=== PATIENT | male | born 1940 | race Caucasian/White ===

== ENCOUNTER 2022-11-20 11:21 | Outpatient (OUT) | payer MEDICARE, MEDICAID, SELFPAY ==
[2022-11-20 12:10] LABS: Basophils Absolute Auto 0.1 10^3/uL (0.0-0.1); Basophils Percent Auto 1.2 % (0.2-2.0); Eosinophils Absolute Auto 0.2 10^3/uL (0.0-0.7); Eosinophils Percent Auto 2.7 % (0.9-7.0); Hematocrit 46.9 % (42.0-54.0); Hemoglobin 15.2 g/dL (14.0-18.0); Immature Granulocytes Abs Auto 0.03 10^3/uL (0.00-0.03); Immature Granulocytes Pct Auto 0.3 % (0.0-0.5); Lymphocytes Absolute Auto 1.8 10^3/uL (1.2-3.8); Lymphocytes Percent Auto 20.4 % (20.5-60.0); Mean Corpuscular HGB Conc 32.4 g/dL (29.9-35.2); Mean Corpuscular Hemoglobin 30.3 pg (25.9-34.0); Mean Corpuscular Volume 93.4 fL (80.0-94.0); Mean Platelet Volume 10.4 fL (9.5-13.5); Monocytes Absolute Auto 0.8 10^3/uL (0.3-0.8); Monocytes Percent Auto 8.4 % (1.7-12.0); Platelet Count 214 10^3/uL (150-450); Red Blood Count 5.02 10^6/uL (4.70-6.10); Red Cell Distribution Width 14.4 % (11.0-15.0); White Blood Count 8.9 10^3/uL (4.0-11.0)
[2022-11-20 12:16] LABS: Estimated Average Glucose 123 mg/dL; Glycohemoglobin A1C 5.9 % (4.5-6.2)
[2022-11-20 12:42] LABS: Alanine Aminotransferase 24 U/L (16-63); Albumin Level 3.7 g/dL (3.4-5.0); Alkaline Phosphatase 72 U/L (46-116); Anion Gap 13.9; Aspartate Amino Transferase 17 U/L (15-37); Bilirubin Total 0.5 mg/dL (0.2-1.0); Calcium 9.4 mg/dL (8.5-10.1); Carbon Dioxide 27.4 mmol/L (21.0-32.0); Chloride 103 mmol/L (98-107); Estimated GFR (African America >60 (>=60); Estimated GFR (Non-African Ame >60 (>=60); Globulin 3.6 g/dL; Glucose 111 mg/dL (74-106); Potassium 4.3 mmol/L (3.5-5.1); Sodium 140 mmol/L (136-145); Total Protein 7.3 g/dL (6.4-8.2)
[2022-11-20 12:52] LABS: Chol HDL Ratio 2.7; Cholesterol 139 mg/dL (<=200); Free Thyroxine Index 2.57 (1.30-4.50); HDL Cholesterol 51 mg/dL (40-60); Thyroid Stimulating Hormone 1.751 uIU/mL (0.358-3.740); Triglycerides 90 mg/dL (<=150)
[2022-11-20 13:03] LABS: Prostate Specific Antigen Dx 1.85 ng/mL (<=4.00)
== END 2022-11-20 11:22 ==
PROVIDERS: PCP Family Medicine; Visit Provider Family Medicine
DX: E11.9 Type 2 diabetes mellitus without complications (principal); E78.5 Hyperlipidemia, unspecified
CPT/HCPCS: 36415; 80053; 80061; 83036; 84153; 84436; 84443; 84479; 85025

== ENCOUNTER 2023-04-18 12:42 | Outpatient (OUT) | payer MEDICARE, MEDICAID, SELFPAY ==
[2023-04-20 14:40] LABS: C. Difficile PCR NEGATIVE (NEGATIVE)
== END 2023-04-18 12:43 | disposition home or self-care (01) ==
LOC: LAB 04-20 12:42
PROVIDERS: PCP Family Medicine; Visit Provider Family Medicine
DX: R19.7 Diarrhea, unspecified (principal)
CPT/HCPCS: 87045; 87046; 87427; 87493

== ENCOUNTER 2023-08-19 13:45 | Emergency (ER) | payer MEDICARE, MEDICAID, SELFPAY ==
[2023-08-19 13:48] VITALS: BP 145/64; PULSE 72; RESP 18; TEMP 36.5; O2SAT 98; BMI 29.4
[2023-08-19 13:52] VITALS: O2SAT 99
[2023-08-19 13:54] VITALS: BP 134/58; O2SAT 98
--- NOTE | 2023-08-19 13:54 | CT_ITS ---
[address] [address] Patient Name: DESEAN LANDRY MRN: [id number] date: 1940 Sex: M Assigned Patient Location: ER Current Patient Location: ER Accession/Order Number: [id number] Exam Date: 08/19/2023 14:03 Report Date: 08/19/2023 14:37 At the request of: STEW CHOUDHURY Procedure: CT lumbar spine wo con EXAM: CT lumbar spine wo con, CT pelvis wo con HISTORY: fall COMPARISON: CT from 05/29/2021 TECHNIQUE: CT lumbar spine wo con, CT pelvis wo con FINDINGS: CT imaging was performed without IV contrast, which can reduce diagnostic accuracy. LOWER ABDOMEN: BOWEL: Colonic diverticulosis. The appendix is normal. PERITONEUM: Normal. OTHER: No other abnormality. PELVIS: VESSELS: Moderate atherosclerotic disease without aneurysm. LYMPH NODES: None enlarged. PERIRECTAL / PERIANAL REGION: Normal. URINARY BLADDER: Normal. REPRODUCTIVE ORGANS: Vasectomy changes. BODY WALL: No significant abnormality. MUSCULOSKELETAL: No acute osseous abnormality. Multilevel discogenic vertebral endplate changes with large anterior syndesmophytes, some of which are bridging. Multilevel degenerative facet arthropathy. 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 CT/CT lumbar spine wo con IMPRESSION: No acute abnormality of the lumbar spine or pelvis. Chronic findings as above. Electronically authenticated by: BEBE ANDRES Date: 08/19/2023 14:37
--- NOTE | 2023-08-19 13:54 | CT_ITS ---
The [address] [address] Patient Name: DESEAN LANDRY MRN: [id number] date: 1940 Sex: M Assigned Patient Location: ED.MAIN Current Patient Location: Accession/Order Number: [id number] Exam Date: 08/19/2023 14:03 Report Date: 08/19/2023 14:31 At the request of: STEW CHOUDHURY Procedure: CT head/brain wo con EXAM: CT head/brain wo con HISTORY: fall COMPARISON: CT brain 03/02/2022. TECHNIQUE: Axial CT scans through the head were obtained without IV contrast administration. Dose reduction techniques were achieved by using: automated exposure control and/or adjustment of mA and /or kV according to patient size and/or use of iterative reconstruction technique. FINDINGS: There is no evidence of acute intracranial hemorrhage or abnormal extra-axial fluid collection. No mass effect or midline shift is seen. There is no evidence of large acute territorial infarction. There is no hydrocephalus. Mild enlarged ventricles and sulci, consistent with age appropriate cerebral atrophy. There are atherosclerotic calcifications of anterior and posterior circulations. To the limit of CT, the posterior fossa appears unremarkable. No definite acute fracture is identified. Soft tissues are unremarkable. The visualized orbits show no abnormality. Status post bilateral lens replacement. The visualized paranasal sinuses show no air-fluid level. Mastoid air cells are clear. CT/CT head/brain wo con IMPRESSION: No CT evidence of acute intracranial abnormality. Mild cerebral volume loss. Vascular calcifications. Electronically authenticated by: MAMTA SHELTON Date: 08/19/2023 14:31
--- NOTE | 2023-08-19 13:54 | CT_ITS ---
The [address] [address] Patient Name: DESEAN LANDRY MRN: [id number] date: 1940 Sex: M Assigned Patient Location: ER Current Patient Location: ER Accession/Order Number: [id number] Exam Date: 08/19/2023 14:03 Report Date: 08/19/2023 14:56 At the request of: STEW CHOUDHURY Procedure: CT cervical spine wo con EXAM: CT cervical spine wo con HISTORY: fall COMPARISON: None. TECHNIQUE: CT cervical spine wo con FINDINGS: SKULL BASE AND CERVICOCRANIAL JUNCTION: Visualized portions of skull base including occipital bone and occipital condyles are normal. No evidence of skull base fracture. ATLANTODENTAL INTERVAL: Normal (<3mm). BASION-DENS INTERVAL: Normal (<10mm). VERTEBRA: No fracture. DISC SPACES AND FACET JOINTS: No acute injury. Anterior bridging syndesmophytes spanning throughout the cervical spine. PREVERTEBRAL SOFT TISSUES: Mild atherosclerotic disease of both carotid bulbs. ALIGNMENT: Normal. CT/CT cervical spine wo con IMPRESSION: No acute abnormality of the cervical spine. 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 Electronically authenticated by: BEBE ANDRES Date: 08/19/2023 14:56
--- NOTE | 2023-08-19 13:56 | ED_ITS ---
Documented by User: SARAH Padgett 08/19/23 15:28 HPI - General Adult General Chief complaint: Back Pain/Injury Stated complaint: BACK PAIN/SKIN TEAR R HAND Time Seen by Provider: 08/19/23 13:53 Source: patient Mode of arrival: ambulance Limitations: no limitations History of Present Illness HPI narrative: Patient is an 82-year-old male with a history of coronary artery disease on Eliquis Who presents by ambulance for low back pain. He states for the last several days he has had increasing back pain and today while putting a mop away, he had a sharp pain in his low back and felt like his legs gave out. He has no persistent numbness or tingling. He states he fell against a TV stand. He states he did hit his head. EMS reported that he did not. He denies neck pain or upper back pain. He reports diffuse low back pain. He sustained multiple skin tears to the right upper extremity. He has no pain anywhere except the low back. Unknown last tetanus. He had no dizziness, chest pain, shortness of breath prior to the fall. Related Data Home Medications Medication Instructions Recorded Confirmed apixaban 5 mg tablet (Eliquis) 5 mg PO Q12H 08/19/23 08/19/23 cholecalciferol (vitamin D3) 50 50 mcg PO DAILY 08/19/23 08/19/23 mcg (2,000 unit) capsule (Vitamin D3) dicyclomine 20 mg tablet 20 mg PO TID 08/19/23 08/19/23 glimepiride 2 mg tablet 2 mg PO DAILY 08/19/23 08/19/23 spironolactone 25 mg tablet 25 mg PO DAILY 08/19/23 08/19/23 Previous Rx's Medication Instructions Recorded methocarbamol 500 mg tablet 500 mg PO TID PRN muscle pain #15 08/19/23 tabs tramadol 50 mg tablet 50 mg PO Q6H PRN pain 3 days #15 08/19/23 tabs Allergies Allergy/AdvReac Type Severity Reaction Status Date / Time No Known Drug Allergies Allergy Verified 08/19/23 13:53 Review of Systems ROS Constitutional Denies: fever or chills Ears, nose, mouth, and throat Denies: throat pain, neck pain or nasal congestion Cardiovascular Denies: chest pain Respiratory Denies: shortness of breath or cough Gastrointestinal Denies: nausea or vomiting Genitourinary Denies: painful urination Hematologic/Lymphatic Reports: easy bruising and easy bleeding PFSH [facility] Social History Smoking status: Former smoker Exam Narrative Exam Narrative: Gen.: Awake, alert, in no distress Head: Normocephalic, atraumatic ENT: Moist mucous membranes, No facial or dental injuries, C-spine nontender Respiratory: No respiratory distress, lungs clear bilaterally Cardio: Regular rate and rhythm Back: Diffuse tenderness of the lumbar spine and paraspinal muscles, no bony tenderness of the thoracic spine or posterior chest wall. No obvious deformity or step-off. No ecchymosis or abrasions noted. Extremities: Moves extremities equally, Skin tears with no bony tenderness to the right upper extremity and right hand. Psych: Normal mood and affect Neuro: No focal neuro deficit Skin: Warm, dry, intact Constitutional Vital Signs, click to edit/add: Last Vital Signs Temp 97.7 F 08/19/23 13:48 Pulse 72 08/19/23 13:48 Resp 18 08/19/23 13:48 BP 134/58 08/19/23 13:54 Pulse Ox 98 08/19/23 14:00 O2 Del Method Room Air 08/19/23 13:48 Course Vital Signs Vital signs: Vital Signs Temperature 97.7 F 08/19/23 13:48 Pulse Rate 72 08/19/23 13:48 Respiratory Rate 18 08/19/23 13:48 Blood Pressure 145/64 H 08/19/23 13:48 Pulse Oximetry 98 08/19/23 13:48 Oxygen Delivery Method Room Air 08/19/23 13:48 Temperature 97.7 F 08/19/23 13:48 Pulse Rate 72 08/19/23 13:48 Respiratory Rate 18 08/19/23 13:48 Blood Pressure 134/58 08/19/23 13:54 Pulse Oximetry 98 08/19/23 14:00 Oxygen Delivery Method Room Air 08/19/23 13:48 Medical Decision Making MDM Narrative Medical decision making narrative: Patient treated for pain in the ER, CTs of the head, C-spine, lumbar spine and pelvis are unremarkable. He was able to ambulate with no difficulty in the emergency department. He was given a short course of analgesics and muscle relaxants for home. Follow-up with PCP and return to the ER if symptoms change or worsen. Patient with no complaints of dizziness, lightheadedness, neurosymptoms, chest pain, shortness of breath in the ER. His tetanus was updated, skin tears were dressed Medical Records Medical records reviewed: Yes I reviewed the patient's medical records Lab Data Lab results reviewed: Yes I reviewed the patient's lab results Imaging Data CT scan - head: Attestation: I have reviewed the pertinent imaging results. Radiologist's impression: ITS Impressions Cervical Spine CT 08/19/23 13:54 IMPRESSION: No acute abnormality of the cervical spine. 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 Electronically authenticated by: BEBE ANDRES Date: 08/19/2023 14:[address] 08/19/23 13:54 IMPRESSION: No CT evidence of acute intracranial abnormality. Mild cerebral volume loss. Vascular calcifications. Electronically authenticated by: MAMTA UNLU Date: 08/19/2023 14:[address] 08/19/23 13:54 IMPRESSION: No acute abnormality of the lumbar spine or pelvis. Chronic findings as above. Electronically authenticated by: BEBE ANDRES Date: 08/19/2023 14:[address] 08/19/23 14:04 IMPRESSION: No acute abnormality of the lumbar spine or pelvis. Chronic findings as above. Electronically authenticated by: BEBE ANDRES Date: 08/19/2023 14:37 Discharge Plan Discharge Chief Complaint: Back Pain/Injury Clinical Impression: Low back pain, Closed head injury, Skin tear, Fall Patient Disposition: Home, Self-Care Time of Disposition Decision: 15:25 Condition: Good Prescriptions / Home Meds: New methocarbamol 500 mg tablet 500 mg PO TID PRN (Reason: muscle pain) Qty: 15 0RF tramadol 50 mg tablet 50 mg PO Q6H PRN (Reason: pain) 3 Days Qty: 15 0RF Rx Instructions: DX: M54.5 No Action spironolactone 25 mg tablet 25 mg PO DAILY glimepiride 2 mg tablet 2 mg PO DAILY dicyclomine 20 mg tablet 20 mg PO TID cholecalciferol (vitamin D3) [Vitamin D3] 50 mcg (2,000 unit) capsule 50 mcg PO DAILY Eliquis 5 mg tablet 5 mg PO Q12H Instructions: Fall Prevention for Older Adults (ED), Head Injury (ED), Acute Low Back Pain (ED) Referrals: Vahid Garcia MD [Primary Care Provider] - 1 week Discharge Date/Time: 08/19/23 16:24 Stand Alone Forms: Portal Instructions Documented by User: Mykel Marquez MD 08/19/23 20:01 HPI - General Adult General Chief complaint: Back Pain/Injury Stated complaint: BACK PAIN/SKIN TEAR R HAND Time Seen by Provider: 08/19/23 13:53 Related Data Home Medications Medication Instructions Recorded Confirmed apixaban 5 mg tablet (Eliquis) 5 mg PO Q12H 08/19/23 08/19/23 cholecalciferol (vitamin D3) 50 50 mcg PO DAILY 08/19/23 08/19/23 mcg (2,000 unit) capsule (Vitamin D3) dicyclomine 20 mg tablet 20 mg PO TID 08/19/23 08/19/23 glimepiride 2 mg tablet 2 mg PO DAILY 08/19/23 08/19/23 spironolactone 25 mg tablet 25 mg PO DAILY 08/19/23 08/19/23 Previous Rx's Medication Instructions Recorded methocarbamol 500 mg tablet 500 mg PO TID PRN muscle pain #15 08/19/23 tabs tramadol 50 mg tablet 50 mg PO Q6H PRN pain 3 days #15 08/19/23 tabs Allergies Allergy/AdvReac Type Severity Reaction Status Date / Time No Known Drug Allergies Allergy Verified 08/19/23 13:53 PFSH PFSH Social History Smoking status: Former smoker Exam Constitutional Vital Signs, click to edit/add: Last Vital Signs Temp 97.7 F 08/19/23 13:48 Pulse 72 08/19/23 13:48 Resp 18 08/19/23 13:48 BP 134/58 08/19/23 13:54 Pulse Ox 98 08/19/23 14:00 O2 Del Method Room Air 08/19/23 13:48 Course Vital Signs Vital signs: Vital Signs Temperature 97.7 F 08/19/23 13:48 Pulse Rate 72 08/19/23 13:48 Respiratory Rate 18 08/19/23 13:48 Blood Pressure 145/64 H 08/19/23 13:48 Pulse Oximetry 98 08/19/23 13:48 Oxygen Delivery Method Room Air 08/19/23 13:48 Temperature 97.7 F 08/19/23 13:48 Pulse Rate 72 08/19/23 13:48 Respiratory Rate 18 08/19/23 13:48 Blood Pressure 134/58 08/19/23 13:54 Pulse Oximetry 98 08/19/23 14:00 Oxygen Delivery Method Room Air 08/19/23 13:48 Medical Decision Making MDM Narrative Medical decision making narrative: Patient treated for pain in the ER, CTs of the head, C-spine, lumbar spine and pelvis are unremarkable. He was able to ambulate with no difficulty in the emergency department. He was given a short course of analgesics and muscle relaxants for home. Follow-up with PCP and return to the ER if symptoms change or worsen. Patient with no complaints of dizziness, lightheadedness, neurosymptoms, chest pain, shortness of breath in the ER. His tetanus was updated, skin tears were dressed I, Dr Marquez, have reviewed the above progress note and course of action in the ER; agree with the above. I have gone over history and physical, and discussed disposition and treatment plan with the patient. Imaging Data CT scan - head: Radiologist's impression: ITS Impressions Cervical Spine CT 08/19/23 13:54 IMPRESSION: No acute abnormality of the cervical spine. 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 Electronically authenticated by: BEBE ANDRES Date: 08/19/2023 14:[address] 08/19/23 13:54 IMPRESSION: No CT evidence of acute intracranial abnormality. Mild cerebral volume loss. Vascular calcifications. Electronically authenticated by: [facility] Date: 08/19/2023 14:[address] 08/19/23 13:54 IMPRESSION: No acute abnormality of the lumbar spine or pelvis. Chronic findings as above. Electronically authenticated by: BEBE ANDRES Date: 08/19/2023 14:[address] 08/19/23 14:04
[2023-08-19 14:00] VITALS: O2SAT 98
--- NOTE | 2023-08-19 14:04 | CT_ITS ---
[address] [address] Patient Name: DESEAN LANDRY MRN: [id number] date: 1940 Sex: M Assigned Patient Location: ER Current Patient Location: ER Accession/Order Number: [id number] Exam Date: 08/19/2023 14:03 Report Date: 08/19/2023 14:37 At the request of: STEW CHOUDHURY Procedure: CT pelvis wo con EXAM: CT lumbar spine wo con, CT pelvis wo con HISTORY: fall COMPARISON: CT from 05/29/2021 TECHNIQUE: CT lumbar spine wo con, CT pelvis wo con FINDINGS: CT imaging was performed without IV contrast, which can reduce diagnostic accuracy. LOWER ABDOMEN: BOWEL: Colonic diverticulosis. The appendix is normal. PERITONEUM: Normal. OTHER: No other abnormality. PELVIS: VESSELS: Moderate atherosclerotic disease without aneurysm. LYMPH NODES: None enlarged. PERIRECTAL / PERIANAL REGION: Normal. URINARY BLADDER: Normal. REPRODUCTIVE ORGANS: Vasectomy changes. BODY WALL: No significant abnormality. MUSCULOSKELETAL: No acute osseous abnormality. Multilevel discogenic vertebral endplate changes with large anterior syndesmophytes, some of which are bridging. Multilevel degenerative facet arthropathy. 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 CT/CT pelvis wo con IMPRESSION: No acute abnormality of the lumbar spine or pelvis. Chronic findings as above. Electronically authenticated by: BEBE ANDRES Date: 08/19/2023 14:37
--- OUTSIDE RECORDS SUMMARY | 2023-08-19 14:16 | XMS_ITS | CCD ---
Author Name Unknown Address [address] [place] [address] Organization [facility] Care Team Providers Care Post Acute Care Nurse Practitioner Name Role Phone ARPAN CAMACHO Unavailable Unavailable SAHRA GILMORE Unavailable Unavailable GAIL CASIANOLAS Unavailable Unavailable DIOGENES REN Unavailable Unavailable LORI, RENDELL Unavailable Unavailable LORI, RENDELL Unavailable Unavailable ITALO MORA (DIRECTOR OF PRODUCT DESIGN) Unavailable Unavailable LORI, RENDELL Unavailable Unavailable LORI, RENDELL Unavailable Unavailable ROWLEY, CESAR Unavailable Unavailable ROWLEY, CESAR Unavailable Unavailable ROWLEY, CESAR Unavailable Unavailable ROWLEY, CESAR Unavailable Unavailable ROWLEY, CESAR Unavailable Unavailable ROWLEY, CESAR Unavailable Unavailable [place] ., DR SHETTY Primary Care Unavailable BRAXTONY ., DR SHETTY Admitting Unavailable HOY ., DR SHETTY Attending Unavailable HOY ., DR SHETTY Consulting Unavailable HOY ., DR SHETTY Primary Care Unavailable HOY ., DR SHETTY Admitting Unavailable HOY ., DR SHETTY Attending Unavailable HOY ., DR SHETTY Consulting Unavailable [place] ., DR SHETTY Primary Care Unavailable DAMIAN WOLF Admitting Unavailable DAMIAN WOLF Attending Unavailable DAMIAN WOLF Consulting Unavailable DR SRINATH MCKEON Consulting Unavailable HOMartin ., DR SHETTY Primary Care Unavailable MITCHELL MEJIA Admitting Unavailable MITCHELL MEJIA Attending Unavailable MATTHEW CHADWICK Consulting Unavailable TRACEY KLINE Consulting Unavailable NISSA VIGIL Consulting Unavailable MITCHELL MEJIA Consulting Unavailable BRAXTONY ., DR SHETTY Admitting Unavailable HOY ., DR SHETTY Attending Unavailable HOY ., DR SHETTY Consulting Unavailable BRAXTONY ., DR SHETTY Primary Care Unavailable HOY ., DR SHETTY Admitting Unavailable HOY ., DR SHETTY Attending Unavailable HOY ., DR SHETTY Consulting Unavailable HOY ., DR SHETTY Primary Care Unavailable MOUKARBEL, DRAGAN Attending Unavailable MARYANN, DAMIAN Attending Unavailable DAMIAN WOLF Referring Unavailable MARYANN, DAMIAN Referring Unavailable DAMIAN WOLF Referring Unavailable MYAH RUSSELL Attending Unavailable AYDE WAGONER Attending Unavailable MARYANN, DAMIAN Admitting Unavailable THU FENTON Attending Unavailable EVGENY, DRAGAN Attending Unavailable Problems Active Problems Problem Classification Problem Date Documented Da te Episodic/Chronic Alcohol-related disorders (1 source) Alcohol dependence with withdrawal, unspecified; Translations: [ALCOHOL DEPENDENCE WITH WITHDRAWAL, UNSPECIFIED] Onset: 06-13-2017 Chronic Cardiac dysrhythmias (1 source) Chronic atrial fibrillation; Translations: [CHRONIC ATRIAL FIBRILLATION] Onset: 06-13-2017 Chronic Chronic obstructive pulmonary disease and bronchiectasis (1 source) Chronic obstructive pulmonary disease, unspecified; Translations: [COPD UNSPECIFIED] Onset: 08-04-2022 Chronic Conduction disorders (2 sources) Presence of cardiac pacemaker; Translations: [Presence of cardiac pacemaker] Onset: 12-05-2022 Chronic Congestive heart failure; nonhypertensive (1 source) Unspecified diastolic (congestive) heart failure; Translations: [UNSPECIFIED DIASTOLIC HEART FAILURE] Onset: 08-04-2022 Chronic Deficiency and other anemia (1 source) Anemia, unspecified; Translations: [ANEMIA UNSPECIFIED] Onset: 08-04-2022 Episodic Diabetes mellitus without complication (1 source) Other abnormal glucose; Translations: [OTHER ABNORMAL GLUCOSE] Onset: 08-04-2022 Episodic Disorders of lipid metabolism (2 sources) Hyperlipidemia, unspecified; Translations: [HYPERLIPIDEMIA, UNSPECIFIED] Onset: 06-13-2017 Chronic Essential hypertension (7 sources) Essential (primary) hypertension; Translations: [ESSENTIAL (PRIMARY) HYPERTENSION] Onset: 06-13-2017 Chronic External Injury - Fall (1 source) Other fall on same level, initial encounter; Translations: [OTHER FALL ON SAME LEVEL, INITIAL ENCOUNTER] Onset: 06-13-2017 Malaise and fatigue (1 source) Other fatigue; Translations: [OTHER FATIGUE] Onset: 08-04-2022 Episodic Nutritional deficiencies (1 source) Vitamin D deficiency, unspecified; Translations: [VITAMIN D DEFICIENCY UNSPECIFIED] Onset: 08-04-2022 Chronic Other lower respiratory disease (1 source) Other nonspecific abnormal finding of lung field; Translations: [Other nonspecific abnormal finding of lung field] Onset: 04-06-2018 Episodic Other lower respiratory disease (1 source) Dyspnea, unspecified; Translations: [DYSPNEA UNSPECIFIED] Onset: 08-04-2022 Episodic Other non-traumatic joint disorders (1 source) Pain in unspecified joint; Translations: [PAIN IN UNSPECIFIED JOINT] Onset: 08-04-2022 Episodic Other screening for suspected conditions (not mental disorders or infectious disease) (1 source) Encounter for screening for malignant neoplasm of prostate; Translations: [ENC SCREEN MALIG NEOPLASM PROSTATE] Onset: 08-04-2022 Episodic Other upper respiratory infections (1 source) Acute sinusitis, unspecified; Translations: [ACUTE SINUSITIS UNSPECIFIED] Onset: 08-21-2022 Episodic Peripheral and visceral atherosclerosis (1 source) Peripheral vascular disease, unspecified; Translations: [PERIPHERAL VASCULAR DISEASE UNS] Onset: 08-04-2022 Chronic Pleurisy; pneumothorax; pulmonary collapse (5 sources) Pleural effusion, not elsewhere classified; Translations: [Pleural plaque without asbestos] Onset: 06-13-2017 Episodic Unclassified (2 sources) Unknown / UNK(Unknown) Onset: 06-13-2017 Unclassified (4 sources) CONTACT W/AND (SUSP) EXPOS COVID-19; Translations: [CONTACT W/AND (SUSP) EXPOS COVID-19] Onset: 03-04-2022 Unclassified (2 sources) Permanent atrial fibrillation; Translations: [Permanent atrial fibrillation] Onset: 06-05-2022 Unclassified (2 sources) Device Check; Translations: [Device Check] Onset: 06-10-2022 Unclassified (2 sources) Longstanding persistent atrial fibrillation; Translations: [Longstanding persistent atrial fibrillation] Onset: 04-21-2022 Past or Other Problems Problem Classification Problem Date Documented Date Episodic/Chronic Cardiac dysrhythmias (6 sources) Bradycardia, unspecified; Translations: [BRADYCARDIA UNSPECIFIED] Onset: 08-26-2022 Episodic E Codes: Fall (1 source) Unspecified fall, initial encounter; Translations: [UNSPECIFIED FALL INITIAL ENCOUNTER] Onset: 03-04-2022 Episodic Intestinal obstruction without hernia (4 sources) Partial intestinal obstruction, unspecified as to cause; Translations: [PART INTESTINAL OBST UNS TO CAU] Onset: 01-15-2022 Episodic Nonmalignant breast conditions (4 sources) Unspecified lump in right breast, subareolar; Translations: [UNSPEC LUMP IN RT BREAST SUBAREOLAR] Onset: 02-19-2022 Episodic Open wounds of head; neck; and trunk (1 source) Laceration without foreign body of scalp, initial encounter; Translations: [LACERATION W/O FB SCALP INITIAL ENC] Onset: 03-04-2022 Episodic Other aftercare (1 source) parts counterman (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; Translations: [ELECTRONIC DATA INTERCHANGE SPECIALIST (CURRENT) USE OF ANTICOAGULANTS] Onset: 06-13-2017 Episodic Other aftercare (1 source) parts counterman (current) use of oral hypoglycemic drugs; Translations: [ELECTRONIC DATA INTERCHANGE SPECIALIST USE ORAL HYPOGLYCEMIC DX] Onset: 03-04-2022 Episodic Other aftercare (1 source) Other intermediate (current) drug therapy; Translations: [OTH NURSING HOME CURRENT DRUG THERAPY] Onset: 03-04-2022 Episodic Other aftercare (2 sources) Encounter for other specified surgical aftercare; Translations: [Encounter for other specified surgical aftercare] Onset: 09-10-2022 Episodic Other connective tissue disease (3 sources) Rhabdomyolysis; Translations: [RHABDOMYOLYSIS] Onset: 06-13-2017 Episodic Other diseases of veins and lymphatics (2 sources) Venous insufficiency (chronic) (peripheral); Translations: [Venous insufficiency (chronic) (peripheral)] Onset: 04-21-2022 Episodic Other fractures (1 source) Unspecified displaced fracture of sixth cervical vertebra, initial encounter for closed fracture; Translations: [UNS DSPL FX 6TH CV INIT JAY FX] Onset: 03-04-2022 Episodic Other injuries and conditions due to external causes (3 sources) Unspecified injury of head, initial encounter; Translations: [UNSPECIFIED INJURY HEAD INITIAL ENC] Onset: 03-02-2022 Episodic Other lower respiratory disease (2 sources) Shortness of breath; Translations: [Shortness of breath] Onset: 04-21-2022 Episodic Other upper respiratory disease (1 source) Other diseases of bronchus, not elsewhere classified; Translations: [Other diseases of bronchus, not elsewhere classified] Onset: 07-23-2017 Episodic Screening or history of mental health and substance abuse (2 sources) Personal history of nicotine dependence; Translations: [PERSONAL HISTORY OF NICOTINE DEPENDENCE] Onset: 06-13-2017 Episodic Spondylosis; intervertebral disc disorders; other back problems (1 source) Dorsalgia, unspecified; Translations: [DORSALGIA, UNSPECIFIED] Onset: 06-13-2017 Episodic Superficial injury; contusion (1 source) Contusion of scalp, initial encounter; Translations: [CONTUSION SCALP INITIAL ENCOUNTER] Onset: 03-04-2022 Episodic Unclassified (1 source) CONTACT W/AND (SUSP) EXPOS COVID-19; Translations: [CONTACT W/AND (SUSP) EXPOS COVID-19] Onset: 08-20-2022 Results Test Name Value Interpretation Reference Range Facility Office Visiton 02-18-2023 Follow-up visit [id number] Jordin Landry Jr. 1940 M Date Provider Department Center 02/18/2023 DRAGAN BALDWIN ERIKA Guillen Family History Problem Relation Age of Onset Cancer Mother Family Status - Relation Status Age at Mother Level of Service:65068 [place] OFFICE/OUTPATIENT ESTABLISHED LOW MDM 20-29 MIN Reason for Visit and Comments: Follow-up [754283] - Pt is here f/U [facility] Office Visiton 12-05-2022 Follow-up visit [id number] Jordin Landry Jr. 1940 M Date Provider Department Center 12/05/2022 AYDE ZHENG ERIKA Guillen Family History Problem Relation Age of Onset Cancer Mother Family Status - Relation Status Age at Mother Level of Service:58597 [place] OFFICE/OUTPATIENT ESTABLISHED MOD MDM 30-39 MIN Reason for Visit and Comments: Follow-up [414605] - Pt is her for 3 month F/U [facility] Office Visiton 09-10-2022 Follow-up visit [id number] Jordin Landry Jr. 1940 M Date Provider Department Center 09/10/2022 [id number] RODRIGUEZ ERIKA Guillen Family History Problem Relation Age of Onset Cancer Mother Family Status - Relation Status Age at Mother Level of Service:08241 [place] POSTOP FOLLOW UP VISIT RELATED TO ORIGINAL PX [facility] 30on 09-02-2022 30 The patient is Moder ately Unstable - Medium risk of patient condition declining or worsening The patient's goals for the shift include Pain Control The clinical goals for the shift include stable vs Normal [facility] 30 The patient is Moder ately Stable - Low risk of patient condition declining or worsening The patient's goals for the shift include HOME The clinical goals for the shift include stable vs Over the shift, the patient did make progress toward the following goals; Problem: Pain - Adult Goal: Verbalizes/displays adequate comfort level or baseline comfort level Outcome: Progressing Flowsheets (Taken 09/01/20222099) Verbalizes/displays adequate comfort level or baseline comfort level: Encourage patient to monitor pain and request assistance Assess pain using appropriate pain scale Administer analgesics based on type and severity of pain and evaluate response Implement non-pharmacological measures as appropriate and evaluate response Problem: Safety - Adult Goal: Free from fall injury Outcome: Progressing Flowsheets (Taken 09/01/20222129) Free from fall injury: Assess patient frequently for physical needs Problem: Discharge Planning Goal: Discharge to home or other facility with appropriate resources Outcome: Progressing Problem: Chronic Conditions and Co-morbidities Goal: Patient's chronic conditions and co-morbidity symptoms are monitored and maintained or improved Outcome: Progressing Flowsheets (Taken 09/01/20222129) Care Plan - Patient's Chronic Conditions and Co-Morbidity Symptoms are Monitored and Maintained or Improved: Monitor and assess patient's chronic conditions and comorbid symptoms for stability, deterioration, or improvement Collaborate with multidisciplinary team to address chronic and comorbid conditions and prevent exacerbation or deterioration Update acute care plan with appropriate goals if chronic or comorbid symptoms are exacerbated and prevent overall improvement and discharge Problem: Respiratory - Adult Goal: Achieves optimal ventilation and oxygenation Outcome: Progressing Flowsheets (Taken 09/01/20222129) Achieves optimal ventilation and oxygenation: Assess for changes in respiratory status Assess for changes in mentation and behavior Assess the need for suctioning and aspirate as needed Assess and instruct to report shortness of breath or any respiratory difficulty Respiratory therapy support as indicated Problem: Cardiovascular - Adult Goal: Maintains optimal cardiac output and hemodynamic stability Outcome: Progressing Flowsheets (Taken 09/01/20222129) Maintains optimal cardiac output and hemodynamic stability: Monitor blood pressure and heart rate Monitor urine output and notify Licensed Independent Practitioner for values outside of normal range Assess for signs of decreased cardiac output Goal: Absence of cardiac dysrhythmias or at baseline Outcome: Progressing Flowsheets (Taken 09/01/20222129) Absence of cardiac dysrhythmias or at baseline: Monitor cardiac rate and rhythm Assess for signs of decreased cardiac output Administer antiarrhythmia medication and electrolyte replacement as ordered Problem: Skin/Tissue Integrity - Adult Goal: Skin integrity remains intact Outcome: Progressing Flowsheets (Taken 09/01/20222129) Skin integrity remains intact: Monitor for areas of redness and/or skin breakdown Goal: Incisions, wounds, or drain sites healing without S/S of infection Outcome: Progressing Flowsheets (Taken 09/01/20222129) Incisions, wounds, or drain sites healing without sign and symptoms of infection: TWICE DAILY: Assess and document skin integrity Normal [facility] DSon 09-02-2022 DS Admission Admitted 09/01/2022 for Bradycardia Discharge Diagnosis Bradycardia Discharge Disposition home Discharge Medications Your medication list CONTINUE taking these medications Instructions Last Dose Given Next Dose Due apixaban 5 mg tablet Commonly known as: Eliquis benzonatate 200 mg capsule Commonly known as: Tessalon cholecalciferol (vitamin D3) 50 mcg (2,000 unit) capsule hyoscyamine 0.125 mg dissolvable tablet Commonly known as: Levsin SL simvastatin 20 mg tablet Commonly known as: Zocor spironolactone 25 mg tablet Commonly known as: Aldactone Activity Patient currently has no discharge activity orders Diet Patient currently has no discharge diet orders Allergies Patient has no known allergies. Hospital Course For complete details duy see H&P. Desean Landry Jr. is a 81 y.o. year old with past medical history of permanent atrial fibrillation with a previous history of mechanical fall and subsequently having sustained a cervical spine fracture of the sixth cervical vertebra. He was previously seen by Dr. ALEXANDRE on a regular basis as outpatient. He has been known to have chronic atrial fibrillation with slow ventricular rate. A subsequent event monitor was placed which revealed evidence of underlying heart rate in the 30s and also nocturnal pauses up to 4 seconds. These pauses were noted between 4 AM and 5 AM in the morning. There was evidence of ventricular bigeminy with a total PVC count of approximately 5%. No sustained VT was seen. He was tolerating his DOAC with no issues. He had successful implant of single chamber PPM with excellent pacing and sensing. Cxray found no pneumothorax. Today he has mild pain at left pectoral incision without severe pain, no hematoma, bruising or drainage. He was counseled regarding limitations for ROM and lifting and bathing. 7 day wound care visit scheduled. He is in agreement. He was discharged home in stable condition with AVS. Pertinent Physical Exam At Time of Discharge Physical Exam Physical exam: BP 130/73 (BP Location: Right arm, Patient Position: Sitting) Pulse 60 Temp 37 ???C (98.6 ???F) (Temporal) Resp 19 Ht 1.753 m (5' 9.02 ) Wt 84 kg (185 lb 3 oz) SpO2 98% BMI 27.33 kg/m??? General: Alert, appropriate mood / affect. NAD Eyes: anicteric sclera. Non-injected conjunctiva. No xanthelasmas Neck: No elevated JVP. No carotid bruit Pulm: no increased effort of breathing. Breath sounds CTA bilaterally with no wheeze, rhonchi or rales. Cards: HR irreg irreg, NL S1, S2. No S3 or S4 gallop. Murmur: none Abd: Soft, Nontender, physiologic bowel sounds are present Extr: Lower extremity edema: none. DP pulses present bilaterally Left pectoral incision without hematoma, bruising, or bleeding on occlusive dressing. Skin: warm, dry, well perfused Neuro: A&Ox3, No gross deficits Psych: appropriate mood, affect. Lab Results Labs Reviewed - No data to display Nutrition Screen N/A Issues Requiring Follow-Up none Outpatient Follow-Up Future Appointments Date Time Provider Department Center 12/05/2022 11:00 AM Ayde Wagoner NP CARD [facility] Test Results Pending At Discharge none Normal [facility] NURSNOTEon 09-02-2022 [facility]MA AVS reviewed with nikole gordon and gerardo Gaspar. No questions or concerns at this time. AVS signed by guardian. Copy of AVS placed in bedside chart. Normal [facility] NURSNOTE RN spoke to Chasity (guardian) in regards to DC orders. Chasity is able to pick patient up around 1700 today. Patient is aware. Normal [facility] HPon 09-01-2022 [facility] Electrophysiology Consult Note Reason for visit: PPM HPI: Desean Landry Jr. is a 81 y.o. year old with past medical history of permanent atrial fibrillation with a previous history of mechanical fall and subsequently having sustained a cervical spine fracture of the sixth cervical vertebra. He was previously seen by Dr. ALEXANDRE on a regular basis as outpatient. He has been known to have chronic atrial fibrillation with slow ventricular rate. A subsequent event monitor was placed which revealed evidence of underlying heart rate in the 30s and also nocturnal pauses up to 4 seconds. These pauses were noted between 4 AM and 5 AM in the morning. There was evidence of ventricular bigeminy with a total PVC count of approximately 5%. No sustained VT was seen. He is accompanied today by his power of cleat thrower. He is tolerating his DOAC with no issues. Event monitor: Chronic AF with pause of 4s nocturnal. ECG 11/30/2015 showed atrial fibrillation with controlled ventricular rate of 80 bpm. Echocardiogram 07/18/2020 11/23/2015: normal ventricular function, mild atrial dilatation, mild aortic regurgitation. Blood testing 11/20/2015: normal CBC, normal renal function. LDL 125. TG 189. PMH: History reviewed. No pertinent past medical history. PSH: History reviewed. No pertinent surgical history. SH: Social Determinants of Health Tobacco Use: Medium Risk Smoking Tobacco Use: Former Smokeless Tobacco Use: Never Passive Exposure: Past Alcohol Use: Not on file Financial Resource Strain: Not on file Food Insecurity: Not on file Transportation Needs: Not on file Physical Activity: Not on file Stress: Not on file Social Connections: Not on file Intimate Partner Violence: Not on file Depression: Not on file Housing Stability: Not on file Allergies: No Known Allergies Weight: @WEIGHT@ Visit Vitals BP 145/64 Pulse 59 Resp 16 SpO2 98% Smoking Status Former Meds: No current facility-administered medications on file prior to encounter. Current Outpatient Medications on File Prior to Encounter Medication Sig Dispense Refill apixaban (Eliquis) 5 mg tablet Take 1 tablet by mouth in the morning and at bedtime. benzonatate (Tessalon) 200 mg capsule Take 200 mg by mouth if needed in the morning, at noon, and at bedtime for cough. Do not crush or chew. cholecalciferol, vitamin D3, 50 mcg (2,000 unit) capsule Take 1 capsule by mouth in the morning. hyoscyamine 0.125 mg dissolvable tablet Take 0.125 mg by mouth if needed in the morning, at noon, and at bedtime. simvastatin (Zocor) 20 mg tablet Take 1 tablet by mouth at bedtime. spironolactone (Aldactone) 25 mg tablet Take 25 mg by mouth in the morning. [DISCONTINUED] gabapentin (Neurontin) 300 mg capsule Take 300 mg by mouth in the morning and 300 mg at noon and 300 mg in the evening. [DISCONTINUED] lisinopril 5 mg tablet Take 5 mg by mouth in the morning. [DISCONTINUED] metFORMIN (Glucophage) 500 mg tablet Take 500 mg by mouth in the morning and at bedtime. [DISCONTINUED] metoprolol tartrate (Lopressor) 25 mg tablet Take 25 mg by mouth in the morning and at bedtime. [DISCONTINUED] True Metrix Glucose Test Strip strip USE 1 TEST STRIP TO TEST BLOOD SUGAR ONCE DAILY AND IF NEEDED [DISCONTINUED] TRUEplus Lancets 33 gauge misc use 1 LANCET to TEST BLOOD SUGAR once daily ROS: Cardio Basic Cardiovascular Symptoms: no lightheadedness, no leg edema, no syncope, no orthopnea, no PND, no claudication, Constitutional Constitutional: no fever, no night sweats, no significant weight gain, no significant weight loss, no exercise intolerance Eyes Eyes: no dry eyes, no irritation, no vision change ENMT Ears: no difficulty hearing, no ear pain Nose: no frequent nosebleeds, Mouth/Throat: no sore throat, no bleeding gums, no snoring, no dry mouth, no mouth ulcers, no oral abnormalities, no teeth problems Respiratory Respiratory: no cough, no wheezing, no coughing up blood, no sleep apnea Musculoskeletal Musculoskeletal: no muscle aches, no muscle weakness, joint pain+, no back pain, no swelling in the extremities Integumentary Skin no rash, no ulcer, no varicosities, no discoloration, no pruritus Neurologic Neurologic: no loss of consciousness, no weakness, no numbness, no seizures, no dizziness, no headaches Psychiatric Psych: no depression, feeling safe in relationship, no alcohol abuse, Hematologic/Lymphatic Hematologic/Lymphatic no swollen glands, no bruising Physical Exam: Constitutional General Appearance: well-nourished, well-developed, appears stated age Level of Distress: comfortable Psychiatric Mental Status: alert, normal affect Orientation: oriented to time, place, and person Insight: good judgement Eyes Lids and Conjunctivae: non-injected, no xanthelasma ENMT Ears: no lesions on external ear Nose: no lesions on external nose Oropharynx: no cyanosis, no pallor Neck Neck: suppl (more content not included)... Normal [facility] Electrophysiology Consult Note Reason for visit: [facility] HPI: Desean Landry Jr. is a 81 y.o. year old with past medical history of permanent atrial fibrillation with a previous history of mechanical fall and subsequently having sustained a cervical spine fracture of the sixth cervical vertebra. He was previously seen by Dr. ALEXANDRE on a regular basis as outpatient. He has been known to have chronic atrial fibrillation with slow ventricular rate. A subsequent event monitor was placed which revealed evidence of underlying heart rate in the 30s and also nocturnal pauses up to 4 seconds. These pauses were noted between 4 AM and 5 AM in the morning. There was evidence of ventricular bigeminy with a total PVC count of approximately 5%. No sustained VT was seen. He is accompanied today by his power of cleat thrower. He is tolerating his DOAC with no issues. Event monitor: Chronic AF with pause of 4s nocturnal. ECG 11/30/2015 showed atrial fibrillation with controlled ventricular rate of 80 bpm. Echocardiogram 07/18/2020 11/23/2015: normal ventricular function, mild atrial dilatation, mild aortic regurgitation. Blood testing 11/20/2015: normal CBC, normal renal function. LDL 125. TG 189. PMH: No past medical history on file. PSH: No past surgical history on file. SH: Social Determinants of Health Tobacco Use: Medium Risk Smoking Tobacco Use: Former Smokeless Tobacco Use: Never Passive Exposure: Past Alcohol Use: Not on file Financial Resource Strain: Not on file Food Insecurity: Not on file Transportation Needs: Not on file Physical Activity: Not on file Stress: Not on file Social Connections: Not on file Intimate Partner Violence: Not on file Depression: Not on file Housing Stability: Not on file Allergies: No Known Allergies Weight: @WEIGHT@ Visit Vitals Smoking Status Former Meds: No current facility-administered medications on file prior to encounter. Current Outpatient Medications on File Prior to Encounter Medication Sig Dispense Refill apixaban (Eliquis) 5 mg tablet Take 1 tablet by mouth in the morning and at bedtime. cholecalciferol, vitamin D3, 50 mcg (2,000 unit) capsule Take 1 capsule by mouth in the morning. gabapentin (Neurontin) 300 mg capsule Take 300 mg by mouth in the morning and 300 mg at noon and 300 mg in the evening. hyoscyamine 0.125 mg dissolvable tablet Take 0.125 mg by mouth if needed in the morning, at noon, and at bedtime. lisinopril 5 mg tablet Take 5 mg by mouth in the morning. metFORMIN (Glucophage) 500 mg tablet Take 500 mg by mouth in the morning and at bedtime. metoprolol tartrate (Lopressor) 25 mg tablet Take 25 mg by mouth in the morning and at bedtime. simvastatin (Zocor) 20 mg tablet Take 1 tablet by mouth at bedtime. spironolactone (Aldactone) 25 mg tablet Take 25 mg by mouth in the morning. True Metrix Glucose Test Strip strip USE 1 TEST STRIP TO TEST BLOOD SUGAR ONCE DAILY AND IF NEEDED TRUEplus Lancets 33 gauge misc use 1 LANCET to TEST BLOOD SUGAR once daily ROS: Cardio Basic Cardiovascular Symptoms: no lightheadedness, no leg edema, no syncope, no orthopnea, no PND, no claudication, Constitutional Constitutional: no fever, no night sweats, no significant weight gain, no significant weight loss, no exercise intolerance Eyes Eyes: no dry eyes, no irritation, no vision change ENMT Ears: no difficulty hearing, no ear pain Nose: no frequent nosebleeds, Mouth/Throat: no sore throat, no bleeding gums, no snoring, no dry mouth, no mouth ulcers, no oral abnormalities, no teeth problems Respiratory Respiratory: no cough, no wheezing, no coughing up blood, no sleep apnea Musculoskeletal Musculoskeletal: no muscle aches, no muscle weakness, joint pain+, no back pain, no swelling in the extremities Integumentary Skin no rash, no ulcer, no varicosities, no discoloration, no pruritus Neurologic Neurologic: no loss of consciousness, no weakness, no numbness, no seizures, no dizziness, no headaches Psychiatric Psych: no depression, feeling safe in relationship, no alcohol abuse, Hematologic/Lymphatic Hematologic/Lymphatic no swollen glands, no bruising Physical Exam: Constitutional General Appearance: well-nourished, well-developed, appears stated age Level of Distress: comfortable Psychiatric Mental Status: alert, normal affect Orientation: oriented to time, place, and person Insight: good judgement Eyes Lids and Conjunctivae: non-injected, no xanthelasma ENMT Ears: no lesions on external ear Nose: no lesions on external nose Oropharynx: no cyanosis, no pallor Neck Neck: supple, trachea midline Carotid Arteries: bilateral normal upstroke, no bruits Jugular Veins: normal jugular venous pressure Thyroid: not enlarged Lungs Respiratory Effort: unlabored Chest Exam: normal curvature, no thoracic deformity Auscultation: clear, no wheezing, no rales, no rhonchi Cardiovascular (more content not included)... 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 Normal [facility] Orders Onlyon 09-01-2022 Orders Only [id number] Jordin Landry Jr. 1940 M Date Provider Department Center 09/01/2022 [facility] V[facility] LAB IN [facility] Family History Problem Relation Age of Onset Cancer Mother Family Status - Relation Status Age at Mother [facility] CBC AUTO DIFFon 08-26-2022 BASO # 0.1 103/ul Normal 0.0-0.1 [facility] Comment on above: Performed By: #### CBC #### [facility] [address] [address] [address] Artem Rojas Basophils/100 WBC (Bld) 1.0 % Normal 0.2-2.0 [facility] Comment on above: Performed By: #### CBC #### [facility] [address] [place] [address] Dr. Artem Rojas EO # 0.2 103/ul Normal 0.0-0.7 [facility] Comment on above: Performed By: #### CBC #### [facility] [address] [address] [address] Artem Rojas Eosinophils/100 WBC (Bld) 2.0 % Normal 0.9-7.0 [facility] Comment on above: Performed By: #### CBC #### [facility] [address] [place] [address] Dr. Artem Rojas Erythrocyte distribution width (RBC) [Ratio] 13.1 % Normal 11.0-15.0 [facility] Comment on above: Performed By: #### CBC #### [facility] [address] [place] [address] Dr. rAtem Rojas Hematocrit (Bld) [Volume fraction] 43.8 % Normal 42.0-54.0 [facility] Comment on above: Performed By: #### CBC #### [facility] [address] [place] [address] Dr. Artem Rojas Hemoglobin (Bld) [Mass/Vol] 14.5 g/dL Normal 14.0-18.0 [facility] Comment on above: Performed By: #### CBC #### [facility] [address] [place] [address] Dr. Artem Rojas IG # 0.07 10e3/ul Critically high 0.00-0.03 [facility] Comment on above: Performed By: #### CBC #### [facility] [address] [place] [address] Dr. Artem Rojas IG % 0.8 % Critically high 0.0-0.5 [facility] Comment on above: Performed By: #### CBC #### [facility] [address] [place] [address] Dr. Artem Rojas LYMPH # 1.8 103/ul Normal 1.2-3.8 [facility] Comment on above: Performed By: #### CBC #### [facility] [address] [place] [address] Dr. Artem Rojas Lymphocytes/100 WBC (Bld) 20.0 % Critically low 20.5-60.0 [facility] Comment on above: Performed By: #### CBC #### [facility] [address] [place] [address] Dr. Artem Rojas MANUAL DIFF REQ NO Normal [facility] Comment on above: Performed By: #### CBC #### [facility] [address] [place] [address] Dr. Artem Rojas MCH (RBC) [Entitic mass] 30.0 pg Normal 25.9-34.0 [facility] Comment on above: Performed By: #### CBC #### [facility] [address] [place] [address] Dr. Artem Rojas MCHC (RBC) [Mass/Vol] 33.1 g/dL Normal 29.9-35.2 [facility] Comment on above: Performed By: #### CBC #### [facility] [address] [place] [address] Dr. Artem Rojas MCV (RBC) [Entitic vol] 90.7 fL Normal 80.0-94.0 [facility] Comment on above: Performed By: #### CBC #### [facility] [address] [place] [address] Dr. Artem Rojas MONO # 0.8 103/ul Normal 0.3-0.8 [facility] Comment on above: Performed By: #### CBC #### [facility] [address] [place] [address] Dr. Artem Rojas Monocytes/100 WBC (Bld) 8.7 % Normal 1.7-12.0 [facility] Comment on above: Performed By: #### CBC #### [facility] [address] [place] [address] Dr. Artem Rojas NEUT # 6.1 103/ul Normal 1.4-6.5 [facility] Comment on above: Performed By: #### CBC #### [facility] [address] [place] [address] Dr. Artem Rojas Neutrophils/100 WBC (Bld) 67.5 % Normal 43.0-75.0 [facility] Comment on above: Performed By: #### CBC #### [facility] [address] [place] [address] Dr. Artem Rojas Platelet mean volume (Bld) [Entitic vol] 9.7 fL Normal 9.5-13.5 [facility] Comment on above: Performed By: #### CBC #### [facility] [address] [place] [address] Dr. Artem Rojas PLT 333 103/ul Normal 150-450 [facility] Comment on above: Performed By: #### CBC #### [facility] [address] [place] [address] Dr. Artem Rojas RBC 4.83 106/ul Normal 4.70-6.10 [facility] Comment on above: Performed By: #### CBC #### [facility] [address] [place] [address] Dr. Artem Rojas WBC 9.0 103/ul Normal 4.0-11.0 [facility] Comment on above: Performed By: #### CBC #### [facility] [address] [place] [address] Dr. Artem Rojas PROF CHEM 8 (BAS METB)on Anion gap [Moles/Vol] 9.4 mmol/L Normal [facility] Comment on above: Performed By: #### PTT, PT #### [facility] [address] [place] [address] Dr. Artem Rojas Calcium [Mass/Vol] 9.4 mg/dL Normal 8.5-10.1 [facility] Comment on above: Performed By: #### PTT, PT #### [facility] [address] [place] [address] Dr. Artem Rojas Chloride [Moles/Vol] 105 mmol/L Normal 98-107 [facility] Comment on above: Performed By: #### PTT, PT #### [facility] [address] [place] [address] Dr. Artem Rojas CO2 [Moles/Vol] 29.3 mmol/L Normal 21.0-32.0 [facility] Comment on above: Performed By: #### PTT, PT #### [facility] [address] [place] [address] Dr. Artem Rojas Creatinine [Mass/Vol] 1.06 mg/dL Normal 0.70-1.30 [facility] Comment on above: Performed By: #### PTT, PT #### [facility] [address] [place] [address] Dr. Artem Rojas EGFR-AF CROATIAN >60 Normal >=60 [facility] Comment on above: Performed By: #### PTT, PT #### [facility] [address] [place] [address] Dr. Artem Rojas EGFR-NON AF CROATIAN >60 Normal >=60 [facility] Comment on above: Performed By: #### PTT, PT #### [facility] [address] [address] [address] Artem Rojas Glucose [Mass/Vol] 125 mg/dL Critically high 74-106 [facility] Comment on above: Performed By: #### PTT, PT #### [facility] [address] [id number] Artem Rojas Potassium [Moles/Vol] 4.3 mmol/L Normal 3.5-5.1 [facility] Comment on above: Performed By: #### PTT, PT #### [facility] [address] [address] [address] Artem Rojas Sodium [Moles/Vol] 139 mmol/L Normal 136-145 [facility] Comment on above: Performed By: #### PTT, PT #### [facility] [address] [address] [address] Artem Rojas Urea nitrogen [Mass/Vol] 20.0 mg/dL Critically high 7.0-18.0 [facility] Comment on above: Performed By: #### PTT, PT #### [facility] [address] [address] [address] Artem Rojas Urea nitrogen/Creatin ine [Mass ratio] 18.9 mg/mg Normal [facility] Comment on above: Performed By: #### PTT, PT #### [facility] [address] [address] [address] Artem Rojas Orders Onlyon 08-25-2022 Orders Only [id number] Jordin Landry Jr. 1940 M Date Provider Department Center 08/25/2022 [facility] VAS LAB [facility] Family History Problem Relation Age of Onset Cancer Mother Family Status - Relation Status Age at Mother Normal [facility] Covid-19 PCR (CVDTBH)on SARS-CoV-2 (COVID-19) RNA MONICA+probe Ql (Unsp spec) Not detected Normal NOT DETECTED [facility] Comment on above: Result Comment: When diagnostic testing is negative, the possibility of a false negative should be considered in the context of a patient's recent exposures and the presence of clinical signs and symptoms consistent with SARS-CoV-2. This test is not yet approved or cleared by the [place] FDA. When there are no FDA-approved or cleared tests available, and other criteria are met, FDA can make tests available under an emergency access mechanism called an Emergency Use Authorization (EUA). The EUA for this test is supported by the [place] of Health and Human Service's declaration that circumstances exist to justify the emergency use of in vitro diagnostics for the detection and/or diagnosis of the virus that causes COVID-19. This EUA will remain in effect for the duration of the COVID-19 declaration justifying emergency of IVDs, unless it is terminated or revoked by the FDA (after which the test may no longer be used). Performed By: #### P TT, PT #### [facility] [address] [place] [address] Dr. Artem Rojas INFLUENZA A AND B [facility] 08-20 [facility] SEE BELOW Normal [facility] Comment on above: Result Comment: Negative for Flu A prote in angiten. Infection due to Flu A cannot be ruled out. Flu A angiten in the sample may be below the detection limit of the test. Performed By: #### P TT, PT #### [facility] [address] [place] [address] Dr. [facility] Comment on above: Result Comment: Negative for Flu B prote in antigen. Infection due to Flu B cannot be ruled out. Flu B antigen in the sample may be below the detection limit of the test. Performed By: #### P TT, PT #### [facility] [address] [place] [address] Dr. Artem Rojas INFLUENZA A AG Negative Normal NEGATIVE SEE COMMENT [facility] Comment on above: Performed By: #### PTT, PT #### [facility] [address] [place] [address] Dr. Artem Rojas INFLUENZA B AG Negative Normal NEGATIVE SEE COMMENT [facility] Comment on above: Performed By: #### PTT, PT #### [facility] [address] [place] [address] Dr. Artem Rojas INSULINon 07-31-2022 Insulin 16.3 uIU/mL Normal 2.6-24.9 [facility] Comment on above: Performed By: #### PTT, PT #### [facility] [address] [place] [address] Dr. Artem Rojas BNPon 07-30-2022 Natriuretic peptide B (Bld) [Mass/Vol] 1826.0 pg/mL Critically high <=1,800.0 [facility] Comment on above: Performed By: #### CMP, BNP, URIC, TSH, T7, LIPID #### [facility] [address] [place] [address] Dr. Artem Rojas CBC AUTO DIFFon 07-30-2022 BASO # 0.1 103/ul Normal 0.0-0.1 [facility] Comment on above: Performed By: #### PTT, PT #### [facility] [address] [place] [address] Dr. Artem Rojas Basophils/100 WBC (Bld) 1.0 % Normal 0.2-2.0 [facility] Comment on above: Performed By: #### PTT, PT #### [facility] [address] [place] [address] Dr. Artem Rojas EO # 0.2 103/ul Normal 0.0-0.7 [facility] Comment on above: Performed By: #### PTT, PT #### [facility] [address] [place] [address] Dr. Artem Rojas Eosinophils/100 WBC (Bld) 2.4 % Normal 0.9-7.0 [facility] Comment on above: Performed By: #### PTT, PT #### [facility] [address] [place] [address] Dr. Artem Rojas Erythrocyte distribution width (RBC) [Ratio] 13.8 % Normal 11.0-15.0 [facility] Comment on above: Performed By: #### PTT, PT #### [facility] [address] [place] [address] Dr. Artem Rojas Hematocrit (Bld) [Volume fraction] 44.1 % Normal 42.0-54.0 [facility] Comment on above: Performed By: #### PTT, PT #### [facility] [address] [place] [address] Dr. Artem Rojas Hemoglobin (Bld) [Mass/Vol] 14.5 g/dL Normal 14.0-18.0 [facility] Comment on above: Performed By: #### PTT, PT #### [facility] [address] [place] [address] Dr. Artem Rojas IG # 0.02 10e3/ul Normal 0.00-0.03 [facility] Comment on above: Performed By: #### PTT, PT #### [facility] [address] [place] [address] Dr. Artem Rojas IG % 0.2 % Normal 0.0-0.5 [facility] Comment on above: Performed By: #### PTT, PT #### [facility] [address] [place] [address] Dr. Artem Rojas LYMPH # 2.1 103/ul Normal 1.2-3.8 [facility] Comment on above: Performed By: #### PTT, PT #### [facility] [address] [place] [address] Dr. Artem Rojas Lymphocytes/100 WBC (Bld) 24.3 % Normal 20.5-60.0 [facility] Comment on above: Performed By: #### PTT, PT #### [facility] [address] [place] [address] Dr. Artem Rojas MANUAL DIFF REQ NO Normal [facility] Comment on above: Performed By: #### PTT, PT #### [facility] [address] [place] [address] Dr. Artem Rojas MCH (RBC) [Entitic mass] 30.3 pg Normal 25.9-34.0 [facility] Comment on above: Performed By: #### PTT, PT #### [facility] [address] [place] [address] Dr. Artem Rojas MCHC (RBC) [Mass/Vol] 32.9 g/dL Normal 29.9-35.2 [facility] Comment on above: Performed By: #### PTT, PT #### [facility] [address] [address] [address] Artem Rojas MCV (RBC) [Entitic vol] 92.1 fL Normal 80.0-94.0 [facility] Comment on above: Performed By: #### PTT, PT #### [facility] [address] [address] [address] Artem Rojas MONO # 0.8 103/ul Normal 0.3-0.8 [facility] Comment on above: Performed By: #### PTT, PT #### [facility] [address] [place] [address] Dr. Artem Rojsa Monocytes/100 WBC (Bld) 9.0 % Normal 1.7-12.0 [facility] Comment on above: Performed By: #### PTT, PT #### [facility] [address] [place] [address] Dr. Artem Rojas NEUT # 5.6 103/ul Normal 1.4-6.5 [facility] Comment on above: Performed By: #### PTT, PT #### [facility] [address] [place] [address] Dr. Artem Rojas Neutrophils/100 WBC (Bld) 63.1 % Normal 43.0-75.0 [facility] Comment on above: Performed By: #### PTT, PT #### [facility] [address] [place] [address] Dr. Artem Rojas Platelet mean volume (Bld) [Entitic vol] 10.0 fL Normal 9.5-13.5 [facility] Comment on above: Performed By: #### PTT, PT #### [facility] [address] [place] [address] Dr. Artem Rojas PLT 193 103/ul Normal 150-450 [facility] Comment on above: Performed By: #### PTT, PT #### [facility] [address] [place] [address] Dr. Artem Rojas RBC 4.79 106/ul Normal 4.70-6.10 [facility] Comment on above: Performed By: #### PTT, PT #### [facility] [address] [place] [address] Dr. Artem Rojas WBC 8.8 103/ul Normal 4.0-11.0 [facility] Comment on above: Performed By: #### PTT, PT #### [facility] [address] [place] [address] Dr. Artem Rojas FREE THYROXINE INDEX T7on FTI 2.52 Normal 1.30-4.50 [facility] Comment on above: Performed By: #### CMP, BNP, URIC, TSH, T7, LIPID #### [facility] [address] [place] [address] Dr. Artem Rojas T3U 35.0 % Normal 33.0-40.0 [facility] Comment on above: Performed By: #### CMP, BNP, URIC, TSH, T7, LIPID #### [facility] [address] [place] [address] Dr. Artem Rojas T4 [Mass/Vol] 7.20 ug/dL Normal 4.50-12.10 [facility] Comment on above: Performed By: #### CMP, BNP, URIC, TSH, T7, LIPID #### [facility] [address] [place] [address] Dr. Artem Rojas GLYCOHEMOGLOBIN A1Con 2022 ADA RECOMMENDATION SEE BELOW Normal [facility] Comment on above: Result Comment: ADA RECOMMENDED LIMIT 4. 0 - 6.0 ADA THERAPEUTIC TARGET < 7.0 ACTION SUGGESTED > 7.0 Performed By: #### A 1C #### [facility] [address] [place] [address] Dr. Artem Rojas Glucose [Mass/Vol] 128 mg/dL Normal [facility] Comment on above: Performed By: #### A1C #### [facility] [address] [place] [address] Dr. Artem Rojas HbA1c (Bld) [Mass fraction] 6.1 % Normal 4.5-6.2 [facility] Comment on above: Performed By: #### A1C #### [facility] [address] [place], [place] [id number] Dr. Artem Rojas LIPID PROFILEon 07-30-2022 CHOL-HDL RATIO NORM SEE BELOW Normal [facility] Comment on above: Result Comment: 3.3 - 4.4 LOW RISK 4.4 - 7.1 AVERAGE RISK 7.1 - 11.0 MODERATE RISK >11.0 HIGH RISK Performed By: #### C MP, BNP, URIC, TSH, T7, LIPID #### [facility] [address] [place] [address] Dr. Artem Rojas Cholesterol [Mass/Vol] 157 mg/dL Normal <=200 [facility] Comment on above: Performed By: #### CMP, BNP, URIC, TSH, T7, LIPID #### [facility] [address] [place] [address] Dr. Artem Rojas Cholesterol in HDL [Mass/Vol] 51 mg/dL Normal 40-60 [facility] Comment on above: Performed By: #### CMP, BNP, URIC, TSH, T7, LIPID #### [facility] [address] [place] [address] Dr. Artem Rojas Cholesterol in LDL [Mass/Vol] 86.6 mg/dL Normal [facility] Comment on above: Performed By: #### CMP, BNP, URIC, TSH, T7, LIPID #### [facility] [address] [place] [address] Dr. Artem Rojas Cholesterol.tota l/Cholesterol in HDL [Mass ratio] 3.1 {ratio} Normal [facility] Comment on above: Performed By: #### CMP, BNP, URIC, TSH, T7, LIPID #### [facility] [address] [place] [address] Dr. Artem Rojas HDL NORMAL > or = 60 mg/dl - LO W CARDIOVASCULAR RISK <40 mg/dl - HIGH CARDIOVASCULAR RISK Normal [facility] Comment on above: Performed By: #### CMP, BNP, URIC, TSH, T7, LIPID #### [facility] [address] [place] [address] Dr. Artem Rojas LDL CALC NORMAL SEE BELOW Normal [facility] Comment on above: Result Comment: <100 mg/dl OPTIMAL 100 - 129 mg/dl NEAR OR ABOVE OPTIMAL 130 - 159 mg/dl BORDERLINE HIGH 160 - 189 mg/dl HIGH >190 mg/dl VERY HIGH Performed By: #### C MP, BNP, URIC, TSH, T7, LIPID #### [facility] [address] [address] [address] Artem Rojas Triglyceride [Mass/Vol] 97 mg/dL Normal <=150 [facility] Comment on above: Performed By: #### CMP, BNP, URIC, TSH, T7, LIPID #### [facility] [address] [address] [address] Artem Rojas VLDL CALC 19.4 mg/dL Normal [facility] Comment on above: Performed By: #### CMP, BNP, URIC, TSH, T7, LIPID #### [facility] [address] [address] [address] Artem Rojas PROF 14(COMP METB)on 023 Albumin [Mass/Vol] 3.5 g/dL Normal 3.4-5.0 [facility] Comment on above: Performed By: #### CMP, BNP, URIC, TSH, T7, LIPID #### [facility] [address] [address] [address] Artem Rojas Albumin/Globulin [Mass ratio] 1.1 {ratio} Normal [facility] Comment on above: Performed By: #### CMP, BNP, URIC, TSH, T7, LIPID #### [facility] [address] [address] [address] Artem Rojas ALP [Catalytic activity/Vol] 70 U/L Normal 46-116 [facility] Comment on above: Performed By: #### CMP, BNP, URIC, TSH, T7, LIPID #### [facility] Laboratory [address] [address] [address] Artem Rojas ALT [Catalytic activity/Vol] 19 U/L Normal 16-63 [facility] Comment on above: Performed By: #### CMP, BNP, URIC, TSH, T7, LIPID #### [facility] [address] [address] [address] Artem Rojas Anion gap [Moles/Vol] 11.7 mmol/L Normal [facility] Comment on above: Performed By: #### CMP, BNP, URIC, TSH, T7, LIPID #### [facility] [address] [place] [address] Dr. Artem Rojas AST [Catalytic activity/Vol] 18 U/L Normal 15-37 [facility] Comment on above: Performed By: #### CMP, BNP, URIC, TSH, T7, LIPID #### [facility] [address] [place] [address] Dr. Artem Rojas Bilirubin [Mass/Vol] 0.5 mg/dL Normal 0.2-1.0 [facility] Comment on above: Performed By: #### CMP, BNP, URIC, TSH, T7, LIPID #### [facility] [address] [place] [address] Dr. Artem Rojas Calcium [Mass/Vol] 9.3 mg/dL Normal 8.5-10.1 [facility] Comment on above: Performed By: #### CMP, BNP, URIC, TSH, T7, LIPID #### [facility] [address] [place] [address] Dr. Artem Rojas Chloride [Moles/Vol] 105 mmol/L Normal 98-107 [facility] Comment on above: Performed By: #### CMP, BNP, URIC, TSH, T7, LIPID #### [facility] [address] [place] [address] Dr. Artem Rojas CO2 [Moles/Vol] 29.7 mmol/L Normal 21.0-32.0 [facility] Comment on above: Performed By: #### CMP, BNP, URIC, TSH, T7, LIPID #### [facility] [address] [place] [address] Dr. Artem Rojas Creatinine [Mass/Vol] 0.87 mg/dL Normal 0.70-1.30 [facility] Comment on above: Performed By: #### CMP, BNP, URIC, TSH, T7, LIPID #### [facility] [address] [place] [address] Dr. Artem Rojas EGFR-AF CROATIAN >60 Normal >=60 [facility] Comment on above: Performed By: #### CMP, BNP, URIC, TSH, T7, LIPID #### [facility] [address] [place] [address] Dr. Artem Rojas EGFR-NON AF CROATIAN >60 Normal >=60 [facility] Comment on above: Performed By: #### CMP, BNP, URIC, TSH, T7, LIPID #### [facility] [address] [place] [address] Dr. Artem Rojas Globulin (S) [Mass/Vol] 3.3 g/dL Normal [facility] Comment on above: Performed By: #### CMP, BNP, URIC, TSH, T7, LIPID #### [facility] [address] [place] [address] Dr. Artem Rojas Glucose [Mass/Vol] 118 mg/dL Critically high 74-106 [facility] Comment on above: Performed By: #### CMP, BNP, URIC, TSH, T7, LIPID #### [facility] [address] [place] [address] Dr. Artem Rojas Potassium [Moles/Vol] 4.4 mmol/L Normal 3.5-5.1 [facility] Comment on above: Performed By: #### CMP, BNP, URIC, TSH, T7, LIPID #### [facility] [address] [place] [address] Dr. Artem Rojas Protein [Mass/Vol] 6.8 g/dL Normal 6.4-8.2 [facility] Comment on above: Performed By: #### CMP, BNP, URIC, TSH, T7, LIPID #### [facility] [address] [place] [address] Dr. Artem Rojas Sodium [Moles/Vol] 142 mmol/L Normal 136-145 [facility] Comment on above: Performed By: #### CMP, BNP, URIC, TSH, T7, LIPID #### [facility] [address] [place] [address] Dr. Artem Rojas Urea nitrogen [Mass/Vol] 19.0 mg/dL Critically high 7.0-18.0 [facility] Comment on above: Performed By: #### CMP, BNP, URIC, TSH, T7, LIPID #### [facility] [address] [place] [address] Dr. Artem Rojas Urea nitrogen/Creatin ine [Mass ratio] 21.8 mg/mg Normal [facility] Comment on above: Performed By: #### CMP, BNP, URIC, TSH, T7, LIPID #### [facility] [address] [place] [address] Dr. Artem Rojas TSHon 07-30-2022 TSH 1.773 uIU/mL Normal 0.358-3.740 [facility] Comment on above: Performed By: #### CMP, BNP, URIC, TSH, T7, LIPID #### [facility] [address] [place] [address] Dr. Artem Rojas URIC ACID SERUMon 07-30-2022 Urate [Mass/Vol] 5.8 mg/dL Normal 3.5-7.2 [facility] Comment on above: Performed By: #### CMP, BNP, URIC, TSH, T7, LIPID #### [facility] [address] [place] [address] Dr. Artem Rojas VITAMIN D 25 OHon 07-30-2022 VIT D 25-OH 65.5 ng/mL Normal [facility] Comment on above: Performed By: #### PTT, PT #### [facility] [address] [place] [address] Dr. Artem Rojas VIT D RANGES SEE BELOW Normal [facility] Comment on above: Result Comment: <20 ng/mL Vit D deficien t 20 - <30 ng/mL Vit D insufficient 30 - 100 ng/mL Vit D sufficient >100 ng/mL Potential Toxicity Performed By: #### P TT, PT #### [facility] [address] [place] [address] Dr. Artem Rojas Office Visiton 06-10-2022 Follow-up visit [id number] Jordin Landry Jr. 1940 M Date Provider Department Center 06/10/2022 DAMIAN JOSEPH [facility] Family History Problem Relation Age of Onset Cancer Mother Family Status - Relation Status Age at Mother Level of Service:[address] [place] OFFICE/OUTPATIENT ESTABLISHED HIGH [facility] 40-54 MIN Reason for Visit and Comments: Device Check [6757] - Discuss results from Holter monitor Normal [facility] Follow-Upon 04-21-2022 Follow-Up [id number] Jovany Landrymohan [address] Jr. 1940 M Date Provider Department Center 04/21/2022 DRAGAN BALDWIN ERIKA [facility] Family History Problem Relation Age of Onset Cancer Mother Family Status - Relation Status Age at Mother Level of Service:68506 [place] OFFICE/OUTPATIENT ESTABLISHED HIGH [facility] 40-54 MIN Reason for Visit and Comments: Atrial Fibrillation [80] Hypertension [843994] Normal [facility] CBC AUTO DIFFon 03-02-2022 BASO # 0.1 103/ul Normal 0.0-0.1 [facility] Comment on above: Performed By: #### PTT, PT #### [facility] [address] [address] [address] Artem Rjoas Basophils/100 WBC (Bld) 0.5 % Normal 0.2-2.0 [facility] Comment on above: Performed By: #### PTT, PT #### [facility] [address] [address] [address] Artem Rojas EO # 0.0 103/ul Normal 0.0-0.7 [facility] Comment on above: Performed By: #### PTT, PT #### [facility] [address] [address] [address] Artem Rojsa Eosinophils/100 WBC (Bld) 0.1 % Critically low 0.9-7.0 [facility] Comment on above: Performed By: #### PTT, PT #### [facility] [address] [address] [address] Artem Rojas Erythrocyte distribution width (RBC) [Ratio] 12.9 % Normal 11.0-15.0 [facility] Comment on above: Performed By: #### PTT, PT #### [facility] [address] [address] [address] Artem Rojas Hematocrit (Bld) [Volume fraction] 39.7 % Critically low 42.0-54.0 [facility] Comment on above: Performed By: #### PTT, PT #### [facility] [address] [place] [address] Dr. Artem Rojas Hemoglobin (Bld) [Mass/Vol] 13.1 g/dL Critically low 14.0-18.0 [facility] Comment on above: Performed By: #### PTT, PT #### [facility] [address] [place] [address] Dr. Artem Rojas IG # 0.05 10e3/ul Critically high 0.00-0.03 [facility] Comment on above: Performed By: #### PTT, PT #### [facility] [address] [place] [address] Dr. Artem Rojas IG % 0.4 % Normal 0.0-0.5 [facility] Comment on above: Performed By: #### PTT, PT #### [facility] [address] [place] [address] Dr. Artem Rojas LYMPH # 0.8 103/ul Critically low 1.2-3.8 [facility] Comment on above: Performed By: #### PTT, PT #### [facility] [address] [place] [address] Dr. Artem Rojas Lymphocytes/100 WBC (Bld) 5.7 % Critically low 20.5-60.0 [facility] Comment on above: Performed By: #### PTT, PT #### [facility] [address] [place] [address] Dr. Artem Rojas MANUAL DIFF REQ NO Normal [facility] Comment on above: Performed By: #### PTT, PT #### [facility] [address] [place] [address] Dr. Artem Rojas MCH (RBC) [Entitic mass] 31.5 pg Normal 25.9-34.0 [facility] Comment on above: Performed By: #### PTT, PT #### [facility] [address] [place] [address] Dr. Artem Rojas MCHC (RBC) [Mass/Vol] 33.0 g/dL Normal 29.9-35.2 [facility] Comment on above: Performed By: #### PTT, PT #### [facility] [address] [place] [address] Dr. Artem Rojas MCV (RBC) [Entitic vol] 95.4 fL Critically high 80.0-94.0 [facility] Comment on above: Performed By: #### PTT, PT #### [facility] [address] [place] [address] Dr. Artem Rojas MONO # 1.0 103/ul Critically high 0.3-0.8 [facility] Comment on above: Performed By: #### PTT, PT #### [facility] [address] [place] [address] Dr. Artem Rojas Monocytes/100 WBC (Bld) 7.4 % Normal 1.7-12.0 [facility] Comment on above: Performed By: #### PTT, PT #### [facility] [address] [place] [address] Dr. Artem Rojas NEUT # 11.4 103/ul Critically high 1.4-6.5 [facility] Comment on above: Performed By: #### PTT, PT #### [facility] [address] [place] [address] Dr. Artem Rojas Neutrophils/100 WBC (Bld) 85.9 % Critically high 43.0-75.0 [facility] Comment on above: Performed By: #### PTT, PT #### [facility] [address] [place] [address] Dr. Artem Rojas Platelet mean volume (Bld) [Entitic vol] 10.8 fL Normal 9.5-13.5 [facility] Comment on above: Performed By: #### PTT, PT #### [facility] [address] [place] [address] Dr. Artem Rojas PLT 164 103/ul Normal 150-450 [facility] Comment on above: Performed By: #### PTT, PT #### [facility] [address] [place] [address] Dr. Artem Rojas RBC 4.16 106/ul Critically low 4.70-6.10 [facility] Comment on above: Performed By: #### PTT, PT #### [facility] [address] [place], [place] [address] Dr. Artem Rojas WBC 13.2 103/ul Critically high 4.0-11.0 [facility] Comment on above: Performed By: #### PTT, PT #### [facility] [address] [place], [place] [address] CSPINE WO CONon 2 CT CSPINE WO CON EXAMINATION: CT CSPI NE WO CON HISTORY: UNSPECIFIED INJURY OF HEAD, INITIAL ENCOUNTER neck pain COMPARISON: None. TECHNIQUE: CT Cervical spine without IV contrast. Coronal and sagittal reformations were performed. Dose reduction techniques were achieved by using automated exposure control and/or adjustment of mA and/or kV according to patient size and/or use of iterative reconstruction technique. FINDINGS: Osseous: Fracture of the C6 vertebral body anteriorly. No fracture the posterior elements. No widening of the facets or interspinous distance. Degenerative changes about the anterior arch of C1 and the dens. Diffuse idiopathic skeletal hyperostosis. Soft tissues: No focal fluid collection. Atherosclerotic vascular calcifications. Disc levels: C2-C3: No disc protrusion, spinal canal stenosis, or neural foraminal stenosis. C3-C4: No disc protrusion, spinal canal stenosis, or neural foraminal stenosis. C4-C5: No disc protrusion, spinal canal stenosis, or neural foraminal stenosis. C5-C6: No retropulsion into the spinal canal. The spinal canal measures 1.1 cm anterior posterior. No discrete disc protrusion. The neural foramina are patent. C6-C7: Small broad-based posterior disc bulge/osteophyte complex. Mild effacement of ventral CSF. The neural foramina are patent. C7-T1: No disc protrusion, spinal canal stenosis, or neural foraminal stenosis. IMPRESSION: 1. Fracture of the C6 vertebral body. No extension to the posterior elements. Critical results were called by Dr. Gavin rAias MD to Dr. Fatima At 03/02/2022 5:51 PM EDT. Electronically authenticated by: WILLIAM ARIAS Date: 2022-03-02 17:51 Normal [facility] CT HEAD WO CONon 03-02-2022 CT HEAD WO CON CLINICAL HISTORY: UN SPECIFIED INJURY OF HEAD, INITIAL ENCOUNTER. Status post fall, laceration above the right eye. Pain. EXAMINATION: Unenhanced CT scan of the brain: 03/02/2022. COMPARISON: Unenhanced CT scan of the brain: 06/13/2017. TECHNIQUE: 3 mm axial images from skull base through vertex without intravenous contrast were obtained. Sagittal, coronal reconstructions were also performed. Dose reduction techniques were achieved by using automated exposure control and/or adjustment of mA and/or kV according to patient size and/or use of iterative reconstruction technique. FINDINGS: The ventricles, sulcal, cisternal spaces remain prominent. There is no definite mass, mass effect or midline shift. No definite acute infarct is identified. There is no intra or extra-axial hemorrhage. There are bilateral basal ganglia calcifications. There is soft tissue swelling, hematoma overlying the right orbit, right frontal bone. The visualized intraorbital contents seem normal. The visualized paranasal sinuses, orbits, mastoid air cells appear intact. There are no skull fractures. IMPRESSION: 1. No acute infarct, hemorrhage or acute intracranial injury. 2. No skull fractures. 3. Soft tissue swelling, hematoma overlying the right orbit as well as the right frontal bone. 4. Stable atrophic changes. Electronically authenticated by: NISSA VIGIL Date: 2022-03-02 17:40 Normal [facility]13 SARS-CoV-2 (COVID-19) RNA MONICA+probe Ql (Unsp spec) Not detected Normal NOT DETECTED [facility] Comment on above: Result Comment: When diagnostic testing is negative, the possibility of a false negative should be considered in the context of a patient's recent exposures and the presence of clinical signs and symptoms consistent with SARS-CoV-2. This test is not yet approved or cleared by the [place] FDA. When there are no FDA-approved or cleared tests available, and other criteria are met, FDA can make tests available under an emergency access mechanism called an Emergency Use Authorization (EUA). The EUA for this test is supported by the [place] of Health and Human Service's declaration that circumstances exist to justify the emergency use of in vitro diagnostics for the detection and/or diagnosis of the virus that causes COVID-19. This EUA will remain in effect for the duration of the COVID-19 declaration justifying emergency of IVDs, unless it is terminated or revoked by the FDA (after which the test may no longer be used). Performed By: #### P TT, PT #### [facility] [address] [place] [address] Dr. Artem Rojas GASTROCCULTon 03-02-2022 GASTROCCULT Positive Abnormal NEGATIVE [facility] Comment on above: Performed By: #### PTT, PT #### [facility] [address] [place] [address] Dr. Artem Rojas PH GASTRIC 2 Normal [facility] Comment on above: Performed By: #### PTT, PT #### [facility] [address] [place] [address] Dr. Artem Rojas PROF 14(COMP METB)on 022 Albumin [Mass/Vol] 3.6 g/dL Normal 3.4-5.0 [facility] Comment on above: Performed By: #### PTT, PT #### [facility] [address] [place] [address] Dr. Artem Rojas Albumin/Globulin [Mass ratio] 1.3 {ratio} Normal [facility] Comment on above: Performed By: #### PTT, PT #### [facility] [address] [place] [address] Dr. Artem Rojas ALP [Catalytic activity/Vol] 65 U/L Normal 46-116 [facility] Comment on above: Performed By: #### PTT, PT #### [facility] [address] [place] [address] Dr. Artem Rojas ALT [Catalytic activity/Vol] 12 U/L Critically low 16-63 [facility] Comment on above: Performed By: #### PTT, PT #### [facility] [address] [place] [address] Dr. Artem Rojas Anion gap [Moles/Vol] 12.8 mmol/L Normal [facility] Comment on above: Performed By: #### PTT, PT #### [facility] [address] [place] [address] Dr. Artem Rojas AST [Catalytic activity/Vol] 15 U/L Normal 15-37 [facility] Comment on above: Performed By: #### PTT, PT #### [facility] [address] [address] [address] Artem Rojas Bilirubin [Mass/Vol] 1.1 mg/dL Critically high 0.2-1.0 [facility] Comment on above: Performed By: #### PTT, PT #### [facility] [address] [address] [address] Artem Rojas Calcium [Mass/Vol] 9.0 mg/dL Normal 8.5-10.1 [facility] Comment on above: Performed By: #### PTT, PT #### [facility] [address] [address] [address] Artem Rojas Chloride [Moles/Vol] 104 mmol/L Normal 98-107 [facility] Comment on above: Performed By: #### PTT, PT #### [facility] [address] [place] [address] Dr. Artem Rojas CO2 [Moles/Vol] 25.8 mmol/L Normal 21.0-32.0 [facility] Comment on above: Performed By: #### PTT, PT #### [facility] [address] [place] [address] Dr. Artem Rojas Creatinine [Mass/Vol] 1.06 mg/dL Normal 0.70-1.30 [facility] Comment on above: Performed By: #### PTT, PT #### [facility] [address] [place] [address] Dr. Artem Rojas EGFR-AF CROATIAN >60 Normal >=60 [facility] Comment on above: Performed By: #### PTT, PT #### [facility] [address] [place] [address] Dr. Artem Rojas EGFR-NON AF CROATIAN >60 Normal >=60 [facility] Comment on above: Performed By: #### PTT, PT #### [facility] [address] [place] [address] Dr. Artem Rojas Globulin (S) [Mass/Vol] 2.8 g/dL Normal [facility] Comment on above: Performed By: #### PTT, PT #### [facility] [address] [place] [address] Dr. Artem Rojas Glucose [Mass/Vol] 104 mg/dL Normal 74-106 [facility] Comment on above: Performed By: #### PTT, PT #### [facility] [address] [address] [address] Artem Rojas Potassium [Moles/Vol] 4.6 mmol/L Normal 3.5-5.1 [facility] Comment on above: Performed By: #### PTT, PT #### [facility] [address] [address] [address] Artem Rojas Protein [Mass/Vol] 6.4 g/dL Normal 6.4-8.2 [facility] Comment on above: Performed By: #### PTT, PT #### [facility] [address] [place] [address] Dr. Artem Rojas Sodium [Moles/Vol] 138 mmol/L Normal 136-145 [facility] Comment on above: Performed By: #### PTT, PT #### [facility] [address] [place] [address] Dr. Artem Rojas Urea nitrogen [Mass/Vol] 13.0 mg/dL Normal 7.0-18.0 [facility] Comment on above: Performed By: #### PTT, PT #### [facility] [address] [place] [address] Dr. Artem Rojas Urea nitrogen/Creatin ine [Mass ratio] 12.3 mg/mg Normal [facility] Comment on above: Performed By: #### PTT, PT #### [facility] [address] [place] [address] Dr. Artem Rojas PROTIMEon 03-02-2022 INR Coag (PPP) [Relative time] 1.23 {INR} Normal [facility] Comment on above: Performed By: #### PTT, PT #### [facility] [address] [place] [address] Dr. Artem Rojas INR GUIDELINES SEE BELOW Normal [facility] Comment on above: Result Comment: DESIRED INR: 2.0 - 3.0 C ONDITIONS NOT LISTED BELOW 2.5 - 3.5 FOR PROSTHETIC HEART VALVE REPLACEMENT 2.5 - 3.5 RECURRENT THROMBOSIS Performed By: #### P TT, PT #### [facility] [address] [address] [address] Artem Rojas PT Coag (PPP) [Time] 13.1 s Critically high 9.0-11.6 [facility] Comment on above: Performed By: #### PTT, PT #### [facility] [address] [address] [address] Artem Rojas PTTon 03-02-2022 aPTT Coag (Bld) [Time] 28.5 s Normal 22.3-36.2 [facility] Comment on above: Performed By: #### PTT, PT #### [facility] [address] [address] [address] Artem Rojas XR KNEE RT 1_2 Von 2 XR KNEE RT 1_2 V XR KNEE RT 1_2 V: HISTORY: Pain. COMPARISON: None available. TECHNIQUE: 2 radiographic view(s) obtained. FINDINGS: BONES/JOINT SPACES: There is no acute fracture or dislocation. Mild medial, lateral patellofemoral joint space narrowing and minimal marginal osteophyte formation compatible with osteoarthritis. Moderate anterior patellar spurring consistent with enthesopathy. Mild to moderate osteopenia. SOFT TISSUES: Diffuse atherosclerotic arterial calcification. Mild prepatellar soft tissue swelling. No definite joint effusion. IMPRESSION: 1. No acute osseous abnormality. 2. Osteopenia. 3. Tricompartment osteoarthritis. 4. Prepatellar soft tissue swelling. 5. Diffuse atherosclerotic calcification. Electronically authenticated by: MATTHEW CHADWICK Date: 2022-03-02 20:49 Normal [facility] OVA AND PARASITE EXAMINATION on 01-18-2022 Ova + Parasite Exam Final report Normal [facility] Comment on above: Result Comment: These results were obtai ricardo using wet preparation(s) and trichrome stained smear. This test does not include testing for Cryptosporidium parvum, Cyclospora, or Microsporidia. Performed By: #### P TT, PT #### [facility] [address] [address] [address] Artem Rojas Result 1 Comment Normal [facility] Comment on above: Result Comment: No ova, cysts, or parasi alise seen. . One negative specimen does not rule out the possibility of a parasitic infection. Performed By: #### P TT, PT #### [facility] [address] [place] [address] Dr. Artem Rojas GI PANEL (PCR)on 01-14-2022 Adenovirus F 40/41 Not detected Normal NOT DETECTED [facility] Comment on above: Performed By: #### PTT, PT #### [facility] [address] [place] [address] Dr. Artem Rojas Astrovirus Not detected Normal NOT DETECTED [facility] Comment on above: Performed By: #### PTT, PT #### [facility] [address] [place] [address] Dr. Artem Rojas C. Diff toxin A/B Not detected Normal NOT DETECTED [facility] Comment on above: Performed By: #### PTT, PT #### [facility] [address] [place] [address] Dr. Artem Rojas Campylobacter Not detected Normal NOT DETECTED [facility] Comment on above: Performed By: #### PTT, PT #### [facility] [address] [place] [address] Dr. Artem Rojas Cryptosporidium Not detected Normal NOT DETECTED [facility] Comment on above: Performed By: #### PTT, PT #### [facility] [address] [place] [address] Dr. Artem Rojas Cyclos. Cayetanensis Not detected Normal NOT DETECTED [facility] Comment on above: Performed By: #### PTT, PT #### [facility] [address] [place] [address] Dr. Artem Rojas E. Coli O157 Not Applicable Normal Not Applicable [facility] Comment on above: Performed By: #### PTT, PT #### [facility] [address] [place] [address] Dr. Artem Rojas E. histolytica Not detected Normal NOT DETECTED [facility] Comment on above: Performed By: #### PTT, PT #### [facility] [address] [place] [address] Dr. Artem Rojas EAEC Not detected Normal NOT DETECTED [facility] Comment on above: Performed By: #### PTT, PT #### [facility] [address] [place] [address] Dr. Artem Rojas EIEC Not detected Normal NOT DETECTED [facility] Comment on above: Performed By: #### PTT, PT #### [facility] [address] [place] [address] Dr. Artem Rojas EPEC Not detected Normal NOT DETECTED [facility] Comment on above: Performed By: #### PTT, PT #### [facility] [address] [place] [address] Dr. Artem Rojas ETEC Not detected Normal NOT DETECTED [facility] Comment on above: Performed By: #### PTT, PT #### [facility] [address] [place] [address] Dr. Artem Rojas G. Lamblia Not detected Normal NOT DETECTED [facility] Comment on above: Performed By: #### PTT, PT #### [facility] [address] [place] [address] Dr. Artem TSE CONTROLS PASSED Normal [facility] Comment on above: Performed By: #### PTT, PT #### [facility] [address] [place] [address] Dr. Artem WEBER HEADER GI PANEL BACTERIA Normal [facility] Comment on above: Performed By: #### PTT, PT #### [facility] [address] [place] [address] Dr. Artem AERLLANO ECOLI GI PANEL DIARRHEAGEN IC E.COLI / SHIGELLA Normal [facility] Comment on above: Performed By: #### PTT, PT #### [facility] [address] [place] [address] Dr. Artem ARELLANO INFO SEE BELOW [facility] Comment on above: Result Comment: EAEC- Enteroaggregative E. Coli EPEC- Enteropathogenic E. Coli ETEC- Enterotoxigenic E. Coli lt/st STEC- Shigella-like toxin-producing E. Coli stx1/stx2 EIEC- Shigella/Enteroinvasive E. Coli Performed By: #### P TT, PT #### [facility] [address] [place] [address] Dr. Artem ARELLANO PARASITES GI PANEL PARASITES Normal [facility] Comment on above: Performed By: #### PTT, PT #### [facility] [address] [place] [address] Dr. Artem ARELLANO VIRUS GI PANEL VIRUSES Normal [facility] Comment on above: Performed By: #### PTT, PT #### [facility] [address] [place] [address] Dr. Artem Rojas Norovirus GI/GII Not detected Normal NOT DETECTED [facility] Comment on above: Performed By: #### PTT, PT #### [facility] [address] [place] [address] Dr. Artem Rojas P. Shigelloides Not detected Normal NOT DETECTED [facility] Comment on above: Performed By: #### PTT, PT #### [facility] [address] [place] [address] Dr. Artem Rojas Rotavirus A Not detected Normal NOT DETECTED [facility] Comment on above: Performed By: #### PTT, PT #### [facility] [address] [place] [address] Dr. Artem Rojas Salmonella Not detected Normal NOT DETECTED [facility] Comment on above: Performed By: #### PTT, PT #### [facility] [address] [place] [address] Dr. Artem Rojas Sapovirus Not detected Normal NOT DETECTED [facility] Comment on above: Performed By: #### PTT, PT #### [facility] [address] [place] [address] Dr. Artem Rojas STEC Not detected Normal NOT DETECTED [facility] Comment on above: Performed By: #### PTT, PT #### [facility] [address] [place] [address] Dr. Artem Rojas Vibrio Not detected Normal NOT DETECTED [facility] Comment on above: Performed By: #### PTT, PT #### [facility] [address] [place] [address] Dr. Artem Rojas Vibrio Cholera Not detected Normal NOT DETECTED [facility] Comment on above: Performed By: #### PTT, PT #### [facility] [address] [address] [address] Artem Rojas Y. Enterocolitica Not detected Normal NOT DETECTED [facility] Comment on above: Performed By: #### PTT, PT #### [facility] [address] [place], [place] [address] Dr. Artem Rojas Consultation Noteon 06-03-20 Consultation Note [id number]:127 Normal [facility] RAD - MISCon 06-03-2021 RAD - MISC [id number]:127 Normal [facility] Glucose Poct Glucometerson 0 01-10-2021 Glucose [Mass/Vol] 108 mg/dL Normal [facility] Comment on above: Result Comment: Random Glucose Reference Range is dependent on time and content of last meal. Glucose of more than 200 mg/dL in a nonstressed, ambulatory subject supports the diagnosis of Diabetes Mellitus. PERFORMED BY: [facility] [address] [place] [address] PATHOLOGIST TRACK REPAIR LABORER SARY APARICIO M.D. Performed By: #### G SAMMIE #### Point of Care testing , [place] 01-10-2021 L Specimen: [id number] Received: 01/10/21 Status: WILFREDO Kelsie Num: [id number] Spec Type: Surgical Subm Dr: Shane Snell MD Tissues: A Colon - Polyp (CECUM) B Colon - Polyp (SIGMOID) Procedures: HE Stain/4, Gross/Micro L4/2 Patient Age/Sex Location Account Attending Physician Desean Landry JR 80/M [id number] Shane Snell MD SPEC NUM: [id number] RECD: 01/10/21 STATUS: WILFREDO MCKEON NUM: [id number] MICAH: 01/10/21- [facility] DR: Shane Snell MD ENTERED: 01/10/21 [facility] DR: SATHISH TYPE: Surgical DEPT: S ORDERED: HE Stain/4, Gross/Micro L4/2 ORDERED: HE Stain/4, Gross/Micro L4/2 Pathological Diagnosis A. Cecal polyps, polypectomy: - Tubular adenoma. B. Sigmoid colon polyp, polypectomy: - Tubular adenoma. Clinical Information Diarrhea, rectal bleeding Gross Description A. Received in formalin labeled with the patient's name, number and cecum polyps are 2 sprague tissue fragments, 0.3 cm and 0.4 cm. Entirely submitted in one cassette labeled A1. (BRANDON/AMY) B. Received in formalin labeled with the patient's name, number and sigmoid polyp are 2 sprague tissue fragments, 0.3 cm each. Entirely submitted in one cassette labeled B1. (SM/YJ) Microscopic Description A. Two glass slides with H E stained material have been examined. The microscopic findings support the above pathologic diagnosis. B. Two glass slides with H E stained material have been examined. The microscopic findings support the above pathologic diagnosis. Specimen: [id number] Received: 01/10/21 Status: WILFREDO Mckeon Num: [id number] Spec Type: Surgical Subm Dr: Shane Snell MD Tissues: A Colon - Polyp (CECUM) B Colon - Polyp (SIGMOID) Procedures: HE Stain/4, Gross/Micro L4/2 Patient: Desean Landry JR [id number] (Continued) Specimen: [id number] Received: 01/10/21 (Continued) Signed (signature on file) Randi Ji MD 01/11/21 [id number] Specimen: [id number] Received: 01/10/21 Status: WILFREDO Mckeon Num: [id number] Spec Type: Surgical Subm Dr: Shane Snell MD Tissues: A Colon - Polyp (CECUM) B Colon - Polyp (SIGMOID) Procedures: HE Stain/4, Gross/Micro L4/2 Patient: Desean Landry JR [id number] (Continued) Specimen: [id number] Received: 01/10/21 (Continued) CPT Codes 62019?2 Specimen: [id number] Received: 01/10/21 Status: WILFREDO Mckeon Num: [id number] Spec Type: Surgical Subm Dr: Shane Snell MD Tissues: A Colon - Polyp (CECUM) B Colon - Polyp (SIGMOID) Procedures: HE Stain/4, Gross/Micro L4/2 Patient: Desean Landry JR [id number] (Continued) Signed (signature on file) Randi Ji MD 01/11/21 1809 [facility] CNCOon 04-13-2018 CNCO Letter TextOctober 2017[address] [place], [place] [address]ZRPL: Rocky Landry NO.: [id number] OF SERVICE: 04/06/2018Dept. of Pulmonary and Critical Care MedicineDear Charanjit,Attached please find a copy of your CAT scan chest report from March.Please contact me if I can contribute further in your health care management.Best regards.Yours sincerely,Cesar Rowley M.D., F.C.C.P.HC:lmEnclosure Normal [facility] CT CHEST WO IVCONon 04-06-20 CT CHEST WO IVCON * * *Final Report* * *DATE OF EXAM: Apr 06 2018 12:50PM [facility] 0541 - CT CHEST WO IVCON / REASON: multiple diagnoses * * * * Physician Interpretation * * * *RESULT: EXAMINATION: CHEST CT WITHOUT CONTRASTCLINICAL HISTORY: Pleural effusion Lung nodulesTechnique: Spiral CT acquisition of the chest from the thoracic inlet to the upper abdomen without contrast.MQ: CTCWOR_4CT Dose-Length Product: 284 mGy*cmCT Dose Reduction Employed: Automated exposure control (AEC)Comparison: CT chest performed 09/10/2017RESULT:Limitations: Mild respiratory motion artifact.Lines, tubes, and devices: None.Lung parenchyma and pleura: A small right pleural effusion is again noted. Again noted is a 5.6 x 2.9 cm subpleural consolidative opacity in the right lower lobe with swirling vessels, most likely representing rounded atelectasis. This is similar in appearance to prior exam.A calcified granuloma is seen in the superior segment of the left lower lobe. There is a stable right upper lobe (3:36) nodule measuring 7 mm in size. Stable nodular opacity is seen at the left base measuring 6 mm in size (3:147). No new or enlarging nodules are seen.Stable subpleural reticular change is seen in the right upper lobe. The central airways are widely patent. Mild bronchial wall thickening is again noted bilaterally, most prominent in the right lower lobe.Thoracic inlet, heart, and mediastinum: No lymphadenopathy in the axillary, mediastinal, or hilar regions. The thoracic aorta and main pulmonary artery are normal in caliber. The heart is enlarged. Coronary artery atherosclerotic calcifications are noted. No pericardial effusion or thickening. A small hiatal hernia is noted.Bones and soft tissues: No destructive bone lesion. Degenerative changes are seen in the thoracic spine. Chest wall is unremarkable.Upper abdomen: Punctate calcifications are seen within the spleen, in keeping with prior granulomatous disease. The upper abdomen is otherwise unremarkable.IMPRESSION:1. Overall stable CT of the chest. Stable small right pleural effusion with probable rounded atelectasis at the right base.2. Stable nodular opacities in the right upper and left lower lobes. No new or enlarging nodules are seen.Transcribe Date/Time: Apr 07 2018 8:13ADictated by: ESTHER TEJEDA MDThis examination was interpreted and the report reviewed and electronically signed by: ESTHER TEJEDA MD on Apr 07 2018 11:01AM ESTThank you for allowing us to participate in the care of your patient.Should there be any questions regarding this interpretation, please call [phone].If you are unable to reach us at the number above,please feel free to contact [facility] eRadiology at [phone] ACN Normal [facility] PROGRESSon 04-06-2018 Protein mass conc HNO ID: [id number]: Venita Jensene: (none)Author Type: (none)Type: Progress NotesFiled: 04/06/2018 12:57 PMNote Text: Radiology Service Progress NotePATIENT NAME: Desean LandryMRN: [id number] OF SERVICE: April 06, 2018TIME: 12:28 PMPATIENT IDENTITY VERIFICATION COMPLETED USING TWO (2) METHODS: Patientconfirmed name verbally and ID band matches..PATIENT GENDER DATA: MalePATIENT RELEVANT IMPLANT DATA REVIEWED: Not ApplicableRADIOLOGY DEPARTMENT: CT; Exam(s) Completed: ChestPERIPHERAL IV DATA: Not applicableSIGNED BY: Venita Latham2017 12:28 PM Normal [facility] CNOVon 09-10-2017 CNOV Office Visit (PULMMN) SA SHAILA LANDRY ([id number]) 1940 MDate Time Provider Department09/10/17 9:55 AM CESAR ROWLEY During your visit today, we recorded the following information about you: Temperature Pulse Respiration Blood pressure 97.7 degrees 75/minute 18/minute 125/68 Weight Height 90.3 kg 1.753 Ritika Rowley MD 09/10/2017 12:26 PM SignedPULMONARY CLINICPATIENT NAME: Desean LandryMRN: [id number] CARE PHYSICIAN: Diogenes Casiano, MDCommunication will be sent via US mail or shared electronic medical recordsS:FUP for pleural effusion, pleural calcification, atelectasisLast visit 07/23/2017.Doing well. Discharged from SNF now back at his home.Doing outpatient PT.Denies any cough, dyspnea or wheezing. No hemoptysis.No fever or chills.Stopped drinking ETOH.Pain in the right chest resolved.PAST MEDICAL HISTORY:PAST MEDICAL HISTORYDiagnosis Date- Asbestos exposure- Atrial fibrillation (HCC)- Calcified pleural plaque on chest x-ray- Dyslipidemia- History of rhabdomyolysis 06/2016, resolved- HypertensionPAST SURGICAL HISTORY: No past surgical history on file.FAMILY HISTORY:FAMILY HISTORYProblem Relation Age of Onset- Heart disease Other unclear which family memberSOCIAL HISTORY:Social HistorySubstance Use Topics- Smoking status: Former Smoker Quit date: 07/23/2011- Smokeless tobacco: Never Used- Alcohol use YesMEDICATIONS:No current outpatient prescriptions on file prior to visit.No current facility-administered medications on file prior to visit.ALLERGIES:ALLERGIESNo Known AllergiesPHYSICAL EXAM:BP 125/68 Pulse 75 Temp 97.7 Resp 18 Ht 5' 9ANDquot; (1.75m) Wt 199 lb(90.3kg) SpO2 97% BMI 29.37 kg/(m2).GENERAL: No distressSKIN: . No rashes or lesions.OROPHARYNX: Oropharynx normal. No erythema. No thrush.LYMPH: No neck adenopathyLUNGS: Lungs clear to auscultation bilateral. No wheezing. No ronchi. No ralesCARDIAC: normal S1 and L0LIUNRMG: Abdomen soft.EXTREMETIES: No deformities. No LE edema. RLE with hyperpigmented area. Looksimproved from 07/2017 as the skin erosion improved.PSYCH: Alert, oriented X 3PULSES: 2+ radialDATA:CT chest 09/10/2017 reviewedASSESSMENT ANDamp; PLAN:76 yo MFormer smokerETOH abuseAfibHTNDyslipidemiaHospital admission 06/2017 for dehydration and rhabdomyolysis caused byencephalopathy of unclear etiology. Suspected ETOH intoxication.?Right pleural effusion.CXR and CT chest 06/2017 showed Loculated effusions in the right chestassociated with opacities and atelectasis in the RLL.I reviewed the images with Mr Landry and his legal guardian Blanca Bowen. Theleft small pleural effusion, the loculated right pleural effusion andinter-fissure effusions have improved. The RLL atelectasis with calcificationlooks grossly stable.I discussed the differential diagnosis with Mr Landry and his legal guardian.The effusions were likely secondary to aspiration pneumonia. The RLLatelectasis could be chronic.He is clinically much improved and living independently again.?Pleural calcifications.Suspected pleural plaques from asbestos exposure.I reviewed the available chest images independently.RTC in 6-12 months.Cesar Rowley, MDPulmonary and Critical Care MedicineDATE: September 10, 2017TIME: 9:30 AMReferring Provider: SELF [200]Allergies As of Date: 09/10/2017(No Known Allergies)Date Reviewed: 09/10/2017Reviewed by: Precious Jones Ma - Fully AssessedReason for Visit: Recheck [92]Primary Visit Diagnosis:Pleural effusion [J90] Other Visit Diagnoses:Lung nodules [R91.8] Atelectasis [J98.11] Pleural calcification [J94.8]Order(s):CT CHEST WO IVCON [[id number]] Order #: [id number] FUTUREProblem List As Of Date: 09/10/2017(None)Disposition: Return in about 6 months (around 03/13/2018).Follow-up and Disposition History RecordedEncounter Number: [id number] Status:Closed by CESAR ROWLEY MD on 09/10/[address] [facility] [address] CHEST WO IVCONon 09-11-19 CT CHEST WO IVCON * * *Final Report* * *DATE OF EXAM: Sep 10 2017 9:05AM [facility] [place] CHEST WO IVCON / REASON: multiple diagnoses * * * * Physician Interpretation * * * * EXAMINATION: CHEST CT WITHOUT CONTRASTIndication: Pleural effusion, not elsewhere classified Pleural plaque without asbestosTechnique: Spiral CT acquisition of the chest from the thoracic inlet to the upper abdomen without contrast.MQ: CTCWO_3CT Dose-Length Product: 291 mGy*cmCT Dose Reduction Employed: Automated exposure control (AEC)Comparison: Prior chest CT dated 06/16/2017RESULT:Lines, tubes, and devices: None.Lung parenchyma and pleura: Patent central airways with bronchial thickening and mosaic attenuation which may be from chronic small airway or small vessel disease. Superior segment left lower lobe calcified granuloma. Nodular scarlike opacity at the left lung base unchanged. Right upper lobe predominant septal thickening which may be due to minimal edema and/or chronic interstitial disease/scarring. 7 mm right apical nodule (38) slightly increased from prior where it measured 6 mm. Chronic appearing small right effusion decreased from prior with overlying partially calcified masslike consolidation which demonstrates swirling of the bronchial vasculature and significant volume loss in the right lower lobe, most likely round atelectasis. Thickening of the right major fissure with decreased intrafissural fluid compared to prior.Thoracic inlet, heart, and mediastinum: Several scattered subcentimeter mediastinal lymph nodes are unchanged from prior. Few nodes are calcified. Heart and great vessels within normal size limits. No pericardial effusion. Coronary and aortic root calcifications. Small hiatal hernia versus lower esophageal thickening.Bones and soft tissues: Degenerative changes of the thoracic spine. No destructive bone lesion. Chest wall is unremarkable.Upper abdomen: Scattered splenic calcifications. No acute abnormality in the imaged upper abdomen.QB_YIMPRESSION:Chronic appearing small right effusion decreased from prior with overlying partially calcified masslike consolidation which demonstrates swirling of the bronchial vasculature and significant volume loss in the right lower lobe, most likely round atelectasis.7 mm right apical nodule slightly increased from prior where it measured 6 mm. Three-month imaging follow-up suggested for reevaluation.Vice President Pharmacy: AMILCAR Transcribe Date/Time: Sep 10 2017 9:58ADictated by : CHRISTY MULTANI MDThis examination was interpreted and the report reviewed and electronically signed by: CHRISTY MULTANI MD on Sep 10 2017 2:48PM [id number] Normal [facility] PROGRESSon 09-10-2017 Protein mass conc HNO ID: [id number]: Cesar Garcia: (none)Author Type: PhysicianType: Progress NotesFiled: 09/10/2017 12:26 PMNote Text:PULMONARY CLINICPATIENT NAME: Desean LandryMRN: [id number] CARE PHYSICIAN: Diogenes Casiano, MDCommunication will be sent via US mail or shared electronic medicalrecordsS:FUP for pleural effusion, pleural calcification, atelectasisLast visit 07/23/2017.Doing well. Discharged from SNF now back at his home.Doing outpatient PT.Denies any cough, dyspnea or wheezing. No hemoptysis.No fever or chills.Stopped drinking ETOH.Pain in the right chest resolved.PAST MEDICAL HISTORY:PAST MEDICAL HISTORYDiagnosis Date- Asbestos exposure- Atrial fibrillation (HCC)- Calcified pleural plaque on chest x-ray- Dyslipidemia- History of rhabdomyolysis 06/2016, resolved- HypertensionPAST SURGICAL HISTORY: No past surgical history on file.FAMILY HISTORY:FAMILY HISTORYProblem Relation Age of Onset- Heart disease Other unclear which family memberSOCIAL HISTORY:Social HistorySubstance Use Topics- Smoking status: Former Smoker Quit date: 07/23/2011- Smokeless tobacco: Never Used- Alcohol use YesMEDICATIONS:No current outpatient prescriptions on file prior to visit.No current facility-administered medications on file prior to visit.ALLERGIES:ALLERGIESNo Known AllergiesPHYSICAL EXAM:BP 125/68 Pulse 75 Temp 97.7 Resp 18 Ht 5' 9 (1.75m) Wt 199 lb(90.3kg) SpO2 97% BMI 29.37 kg/(m2).GENERAL: No distressSKIN: . No rashes or lesions.OROPHARYNX: Oropharynx normal. No erythema. No thrush.LYMPH: No neck adenopathyLUNGS: Lungs clear to auscultation bilateral. No wheezing. No ronchi. NoralesCARDIAC: normal S1 and V5NNMVRQI: Abdomen soft.EXTREMETIES: No deformities. No LE edema. RLE with hyperpigmented area.Looks improved from 07/2017 as the skin erosion improved.PSYCH: Alert, oriented X 3PULSES: 2+ radialDATA:CT chest 09/10/2017 reviewedASSESSMENT AND PLAN:76 yo MFormer smokerETOH abuseAfibHTNDyslipidemiaHospital admission 06/2017 for dehydration and rhabdomyolysis caused byencephalopathy of unclear etiology. Suspected ETOH intoxication.?Right pleural effusion.CXR and CT chest 06/2017 showed Loculated effusions in the right chestassociated with opacities and atelectasis in the RLL.I reviewed the images with Mr Landry and his legal guardian Blanca James. The left small pleural effusion, the loculated right pleuraleffusion and inter-fissure effusions have improved. The RLL atelectasiswith calcification looks grossly stable.I discussed the differential diagnosis with Mr Landry and his legalguardian. The effusions were likely secondary to aspiration pneumonia. TheRLL atelectasis could be chronic.He is clinically much improved and living independently again.?Pleural calcifications.Suspected pleural plaques from asbestos exposure.I reviewed the available chest images independently.RTC in 6-12 months.REJI Leyvaulmonary and Critical Care MedicineDATE: September 10, 2017TIME: 9:30 AM Normal [facility] Protein mass conc HNO ID: [id number]: Srinath Purcell CTS (Ct)ervice: RadiologyAuthor Type: Clinical TechnicianType: Progress NotesFiled: 09/10/2017 9:03 AMNote Text: Radiology Service Progress NotePATIENT NAME: Desean LandryMRN: [id number] OF SERVICE: September 10, 2017TIME: 9:03 AMPATIENT IDENTITY VERIFICATION COMPLETED USING TWO (2) METHODS: Patientconfirmed name verbally and ID band matches..PATIENT GENDER DATA: MalePATIENT RELEVANT IMPLANT DATA REVIEWED: YesRADIOLOGY DEPARTMENT: CT; Exam(s) Completed: ChestPERIPHERAL IV DATA: Not applicableSIGNED BY: MANINDER [facility] 2017 9:03 AM Normal [facility] HISTORY PHYSICALon 8 HISTORY PHYSICAL HNO ID: [id number] thor: Cesar RowleyService: (none)Author Type: PhysicianType: HANDPFiled: 07/23/2017 5:35 PMNote Text:PULMONARY CONSULTPATIENT NAME: Desean LandryMRN: [id number] FOR CONSULT: Pleural effusionREQUESTING PHYSICIAN: Diogenes Casiano [facility]ITALRIDIGNITY HEALTH [facility]AL HOSPITALY CARE PHYSICIAN: Diogenes Casiano, [facility] – HOLLISommunication will be sent via [place] mail or shared electronic medicalrecordsHISTORY OF PRESENT ILLNESS: Mr. 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 Unable to make his own medical decision.He lives by himself but currently admitted at a SNF. He has a legalguardian Blanca Sofia phone # [phone].In June he was found on the floor of his home. It is not clear but itis suspected that he was on the floor for at least half day until he wasfound. He was taken to a local hospital where he was found to bedehydrated and with rhabdomyolysis. At his home, a bottle of ETOH drinkwas at his side and it is not clear whether he was intoxicated.During the hospital stay he was found to have pleural effusions on theright side and RLL opacities suspicious for aspiration pneumonia. He wasadmitted x 7 days and evaluation included CXR and CT chest. According tothe guardian, the local physicians were suspecting mesothelioma andrecommended thoracentesis. They felt uncomfortable with the evaluation anddecided to pursue further evaluation at [facility].Since hospital discharge, he has been at a SNF. He has been doing physicaltherapy and exercising daily up to 2 hours a day. No chest pain, nodyspnea.PAST MEDICAL HISTORY:PAST MEDICAL HISTORYDiagnosis Date- Asbestos exposure- Atrial fibrillation (HCC)- Calcified pleural plaque on chest x-ray- Dyslipidemia- History of rhabdomyolysis 06/2016, resolved- HypertensionPAST SURGICAL HISTORY: No past surgical history on file.FAMILY HISTORY:FAMILY HISTORYProblem Relation Age of Onset- Heart disease Other unclear which family memberSOCIAL HISTORY:Social HistorySubstance Use Topics- Smoking status: Former Smoker Quit date: 07/23/2011- Smokeless tobacco: Not on file- Alcohol use YesMEDICATIONS:Metoprolol 25mfg bidFolic acidThiamineEliquis 5mg bidpravastatinALLERGIES:ALLERGIE SNo Known AllergiesCOMPLETE REVIEW OF SYSTEMS:GENERAL: No weight loss, malaise or feversHEENT: Negative for frequent or significant headaches, No changes inhearing or vision, no nose bleeds or other nasal problemsNECK: Negative for lumps, goiter, pain and significant neck swellingRESPIRATORY: Negative for cough, hemoptysis, wheezing or shortness ofbreathCARDIOVASCULAR: Negative for chest pain, leg swelling or palpitationsGI: No nausea, vomiting, or diarrheaGU: No history of dysuria, frequency or incontinenceMUSCULOSKELETAL: Negative for joint pain or swelling, back pain or musclepainSKIN: Negative for lesions, rash, and itchingHEMATOLOGY/LYMPHOLOGY: Negative for prolonged bleeding, bruising easily orswollen nodesENDOCRINE: Negative for cold or heat intolerance, polyuria, polydipsia andgoiterNEURO: No history of headaches, syncope, paralysis, seizures or tremorsAll other reviewed and negative other than HPI.PHYSICAL EXAM:GENERAL: No distress, looks wellSKIN: (+) bruises in knees and bilateral elbowsOROPHARYNX: Oropharynx normal.NECK: No neck adeonpathyLUNGS: Lungs clear to auscultation bilateral. No wheezing, no ronchi, noralesCARDIAC: normal S1 and S2, no murmurABDOMEN: Abdomen soft.EXTREMETIES: Extremities normal, no deformities No LE edema but (+) areawith skin erosion and hyperpigmentation in the left leg. It is chronic xmonths to years according to guardianNEURO: Alert, oriented X 3PULSES: 2+ radialDATA:CXR 07/23/2017 reviewedJIX ? 5291 ?- ?XR CHEST 2V FRONTAL/LAT ?/ REASON: Pleural effusion, not elsewhere classified?? ?* * * * Physician Interpretation * * * *?EXAMINATION: ?CHEST RADIOGRAPH (2 VIEW FRONTAL AND LATERAL)Clinical History: ?Pleural effusion, not elsewhere classifiedM: ?XC2_4Comparison: ?06/16/2017RESULT:Lines, tubes, and devices: ?None.Lungs and pleura: ?Decrease in size of loculated small right pleuraleffusion. ?Improvement of right basilar atelectatic changes. ?Minimalleft basilar atelectasis has slightly increased. ?No pneumothorax.Cardiomediastinal silhouette: ?Heart mildly enlarged. ?Thoracic aorta istortuous with atherosclerotic calcifications.ASSESSMENT AND PLAN:76 yo MFormer smokerETOH abuseAfibHTNDyslipidemiaRecent admission for dehydration and rhabdomyolysis caused byencephalopathy of unclear etiology. Suspected ETOH intoxication.Right pleural effusion.CXR and CT chest 06/2017 showed Loculated effusions in the right chestassociated with opacities and atelectasis in the RLL.I reviewed the available chest images independently.I reviewed the chest images with Mr Landry and his guardian.I discussed the differential diagnosis with Mr Landry and his guardian. Itis not clear how long he had the effusion. Suspect that he had episode ofaspiration pneumonia when he was unconscious on the floor, and theeffusion was either traumatic or parapneumonic. Low suspicion formesothelioma as mentioned at OSH.He had CXR today and he still has minimal bilateral effusions but muchimproved compared to 06/2017. He is asymptomatic now. US chest done todayshowed minimal effusion, not enough for thoracentesis. Plan to return in 4weeks with repeat CT chest.Pleural calcifications. Suspected pleural plaques from asbestos exposure.Written and verbal health teaching given to patient, patient verbalizesunderstanding and agrees with treatment plan.During this patient visit I have spent more than 50% of the time out of 60in counseling regarding test results, pleural effusion and coordinatingcare.Cesar Rowley, MDPulmonary and Critical Care MedicineDATE: July 23, 2017TIME: 12:12 PM Normal [facility] PROGRESSon 07-23-2017 Protein mass conc HNO ID: [id number]: Colleen Ceballos RtService: (none)Author Type: (none)Type: Progress NotesFiled: 07/23/2017 11:16 AMNote Text: Radiology Service Progress NotePATIENT NAME: Desean LandryMRN: [id number] OF SERVICE: July 23, 2017TIME: 11:16 AMPATIENT IDENTITY VERIFICATION COMPLETED USING TWO (2) METHODS: Patientconfirmed name verbally and Date of .PATIENT GENDER DATA: MalePATIENT RELEVANT IMPLANT DATA REVIEWED: Not ApplicableRADIOLOGY DEPARTMENT: General X-ray: Exam(s) Completed: Chest X-RayPERIPHERAL IV DATA: Not applicableSIGNED BY: Colleen Ceballos RtFebr2017 11:16 AM Normal [facility] XR CHEST 2V FRONTAL/LATon XR CHEST 2V FRONTAL/LAT * * *Final Report* * *DATE OF EXAM: Jul 23 2017 11:10AM JIX [id number] - XR CHEST 2V FRONTAL/LAT / REASON: Pleural effusion, not elsewhere classified * * * * Physician Interpretation * * * * EXAMINATION: CHEST RADIOGRAPH (2 VIEW FRONTAL and LATERAL)Clinical History: Pleural effusion, not elsewhere classifiedM: XC2_4Comparison: 06/16/2017RESULT:Lines, tubes, and devices: None.Lungs and pleura: Decrease in size of loculated small right pleural effusion. Improvement of right basilar atelectatic changes. Minimal left basilar atelectasis has slightly increased. No pneumothorax.Cardiomediastinal silhouette: Heart mildly enlarged. Thoracic aorta is tortuous with atherosclerotic calcifications.Other:IMPRESSION: As aboveTranscriptionist: PSCB Transcribe Date/Time: Jul 23 2017 3:23PDictated by : BELL ARMENTA MDThis examination was interpreted and the report reviewed and electronically signed by: BELL ARMENTA MD on Jul 23 2017 3:24PM [id number] Normal [facility] HOSPon 07-21-2017 HOSP Patient:Desean Landry MRN: Height:No patient height recorded for this patient.Weight:No patient weight recorded within the last 30 days.Outpatient Medications as of 07/23/17:Patient has no current outpatient medications.Admission/Clinic Administered Medications as of 07/23/17:Patient has no admission medications.Problem List:No problem list on file for this patient.Allergies:No Known AllergiesDate Verified:07/14/17Lab ValuesNo results within the last 30 days for the following basenames: K,HCTProgress Notes (RADIO GEN MAIN J):Colleen Ceballos Rt 07/23/2017 11:16 AM Signed Radiology Service Progress NotePATIENT NAME: Desean LandryMRN: [id number] OF SERVICE: July 23, 2017TIME: 11:16 AMPATIENT IDENTITY VERIFICATION COMPLETED USING TWO (2) METHODS: Patientconfirmed name verbally and Date of .PATIENT GENDER DATA: MalePATIENT RELEVANT IMPLANT DATA REVIEWED: Not ApplicableRADIOLOGY DEPARTMENT: General X-ray: Exam(s) Completed: Chest X-RayPERIPHERAL IV DATA: Not applicableSIGNED BY: Colleen Ceballos RtFebruary 2017 11:16 AMProgress Notes (HOSP [facility] PULM LAB H23):Latoya Mohamud, ALTA, RN 07/22/2017 10:35 AM Signed07/22/2017: Navigator contacted [facility] ([phone]) toobtain recent labs. Nitro Worker will fax labs and medication list. Craig also have a copies of this sent with him to his appointments. Normal [facility] Cristhian 07-16-2017 CNPN Telephone (PULMMN) SA SHAILA LANDRY ([id number]) 1940 MDate Time Provider Department07/16/17 CESAR ROWLEY During your visit today, we recorded the following information about you:Kristie Vallejo 07/16/2017 2:35 PM Signedcxr report to FANNY.Italo Mora CNP 07/17/2017 12:47 PM SignedCXR 07/13/2017StableAllergies As of Date: 07/16/2017(No Known Allergies)Date Reviewed: 07/14/2017Reviewed by: Kim Walker (Fel) - Fully AssessedReason for Visit: Received Outside Medical Records [[id number]]Problem List As Of Date: 07/16/2017(None) Status:Closed by KRISTIE ANDRADE on 07/16/17 [facility] BASIC METABOLIC PANELon Calcium 8.5 mg/dL Low 8.6-10.3 [facility] Comment on above: Order Comment: No: Do not add to previou s draw Performed By: #### 4 1000, 81178, 41656, 68812, 26934 ####[facility] [place] [address], [facility] Chloride 104 mmol/L Normal 98-107 [facility] Comment on above: Order Comment: No: Do not add to previou s draw Performed By: #### 4 1000, 31936, 86944, 32326, 16310 ####[facility] CO2 30 mmol/L Normal 21-31 [facility] Comment on above: Order Comment: No: Do not add to previou s draw Performed By: #### 4 1000, 02966, 21299, 61031, 52456 ####[facility] Creatinine 0.94 mg/dL Normal 0.70-1.30 [facility] Comment on above: Order Comment: No: Do not add to previou s draw Performed By: #### 4 1000, 55134, 16885, 48479, 75979 ####[facility] [facility].[address] eGFR (black) mL/min/{1.73_m2} Normal >60 [facility] Comment on above: Order Comment: No: Do not add to previou s draw Result Comment: Calc ulation may not be valid for patients over 70 years Performed By: #### 4 1000, 26672, 13428, 36996, 35850 ####[facility] eGFR (non-black) mL/min/{1.73_m2} Normal >60 Th e [facility] Comment on above: Order Comment: No: Do not add to previou s draw Result Comment: Calc ulation may not be valid for patients over 70 years Performed By: #### 4 1000, 21850, 24666, 40852, 58743 ####[facility] [place] [address], [facility] Glucose mass conc 98 mg/dL Normal 70-100 [facility] Comment on above: Order Comment: No: Do not add to previou s draw Performed By: #### 4 1000, 81319, 98756, 55732, 64279 ####[facility] Potassium molar conc 4.3 mmol/L Normal 3.5-5.1 [facility] Comment on above: Order Comment: No: Do not add to previou s draw Performed By: #### 4 1000, 82367, 17417, 64567, 94303 ####[facility] Sodium 141 mmol/L Normal 136-145 [facility] Comment on above: Order Comment: No: Do not add to previou s draw Performed By: #### 4 1000, 12820, 20032, 13455, 84845 ####[facility] Urea nitrogen 17 mg/dL Normal 7-25 [facility] Comment on above: Order Comment: No: Do not add to previou s draw Performed By: #### 4 1000, 03030, 63121, 60757, 80136 ####[facility] CBC W/DIFFon 06-20-2017 Basophils Auto #/vol (Bld) 0.5 % Normal 0.0-2.0 [facility] Comment on above: Performed By: #### 09905, 87808, 35057, 12659, 09326 ####[facility] Eosinophils/100 leukocytes 3.6 % Normal 0.0-5.0 [facility] Comment on above: Performed By: #### 73267, 53888, 06165, 88373, 84760 ####[facility] Erythrocyte distribution width Auto Ratio (RBC) 14.2 % Normal 11.5-16.9 [facility] Comment on above: Performed By: #### 73852, 61445, 50310, 56289, 16001 ####[facility] [place] [address], [facility] Erythrocytes (RBC) 4.19 mill/mm3 Low 4.30-5.90 [facility] Comment on above: Performed By: #### 91034, 51476, 51293, 31082, 21301 ####[facility] [place] [address], [facility] Hematocrit (HCT) 39.9 % Normal 39.0-55.0 [facility] Comment on above: Performed By: #### 62554, 69904, 40526, 03557, 63339 ####[facility] Hemoglobin mass conc (Bld) 13.6 g/dL Low 13.9-16.3 [facility] Comment on above: Performed By: #### 83655, 93600, 91489, 87162, 52449 ####[facility] [place] [address], [facility] Lymphocytes/100 leukocytes 15.7 % Low 20.0-40.0 [facility] Comment on above: Performed By: #### 80547, 14943, 81602, 51964, 88890 ####[facility] MCH 32.4 pg High 24.0-32.0 [facility] Comment on above: Performed By: #### 51326, 77447, 95980, 27193, 29317 ####[facility] MCHC mass conc (RBC) 34.0 g/dL Normal 32.0-36.0 [facility] Comment on above: Performed By: #### 62873, 90573, 32512, 72808, 62579 ####[facility] [place] [address], [facility] MCV 95.3 fL Normal 80.0-100.0 [facility] Comment on above: Performed By: #### 56185, 28308, 49902, 95177, 48747 ####[facility] [place] [address], [facility] METHOD Normal RBC Morphology Normal [facility] Comment on above: Performed By: #### 42210, 50427, 55465, 87349, 27369 ####[facility] [place] [address], [facility] MONOS 9.9 % High 2-8 [facility] Comment on above: Performed By: #### 37272, 24584, 15960, 77411, 37425 ####[facility] [place] [address], [facility] Neutrophils/100 leukocytes 70.3 % High 50-70 [facility] Comment on above: Performed By: #### 99019, 41111, 56320, 24650, 13130 ####[facility] [place] [address], [facility] PLAT CNT 193 Thou/mm3 Normal 100-400 [facility] Comment on above: Performed By: #### 13499, 92098, 66096, 11774, 43542 ####[facility] [place] [address], [facility] WBC (Leukocytes) 8.7 Thou/mm3 Normal 4.0-10.0 [facility] Comment on above: Performed By: #### 98402, 84960, 05438, 80330, 33531 ####[facility] Discharge Summaryon 06-20-19 18 Discharge Summary MR#: [id number] [facility] Name: Desean Landry Ty Admitted: 06/13/2017 Discharged: 06/20/2017 Date of : 1940 Physician: Diogenes Ren M.D. DISCHARGE SUMMARYPRIMARY DIAGNOSIS: Rhabdomyolysis secondary to prolonged immobilization.SECONDARY DIAGNOSES:1. History of atrial fibrillation.2. Right sided Posterior Calcified pleural plaques.3. Right-sided loculated pleural effusion.CONSULTS: CT Surgery, Pulmonary.PROCEDURES: None.SUMMARY OF HOSPITAL COURSE: Mr. Landry is a 76-year-old male, who [facility] with complaints of being found down for approximately 15 to 18hours. Per the patient, he was in usual state of health and last nightwhen woke to take his medications, his legs gave out and fell to the floor.Denies loss of consciousness but stated that he was so weak that he wasunable to get up. Eventually, EMS was contacted and brought the patient [facility]. Initial workup was notable for severe rhabdomyolysis,and the patient was transferred to [facility]. He has a past medical historysignificant for chronic atrial fibrillation on Eliquis and hypertension.Initial management consists of aggressive IV hydration and serial CK andmyoglobin levels. The patient continue to improve and his CK levelscontinue to trend downward.Due to concern for fracture, CT of the thoracic and lumbar spine wasobtained. No fractures were noted; however, the CT thoracic spine notedmultifocal atelectasis and consolidation with bilateral pleural effusionsand multiple loculations on the right. Pneumonia could not be excluded.Because of this, Pulmonary consultation was obtained and a CT chest wasobtained. CT chest noted a right-sided loculated pleural effusion alongthe lateral and medial pleural reflection and increased CT density up to 40Hounsfield units, which was worrisome for empyema. In addition,right-sided posterior pleural calcifications with the pleural base softtissue density. Pleural plaque versus mesothelioma was suspected.Pulmonary advised obtaining more history in regard to his asbestos fiberexposure.In addition, a CT Surgery consultation was obtained, which noted that theydeemed the patient to not require any operative intervention. In addition,his POA requested that the patient not have a biopsy performed whilehospitalized at [facility].His CK and myoglobin continue to trend downward, and he was deemed stableat the time of discharge.He will need to follow up with Dr. Rowley at [facility] for continuedmanagement of his pleural effusions concerning for empyema and hisright-sided pleural calcifications. He was to be discharged on June, however his transportation was delayed. He was ultimately dischargedon 06/20/16 to ECF.Of note, his Eliquis was stopped for possible thoracentesis in the nextweek. He was instructed that if he does not have a thoracentesis the nextweek, he is to resume his Eliquis for his atrial fibrillation.The patient's condition at discharge stable and improved since admission.DISPOSITION: ECF.DISCHARGE INSTRUCTIONS: You are being discharged to ECF. Please continueto follow up with Dr. Rowley at [facility] for continued management ofthe pleural effusions that were noted on your CT chest.DISCHARGE MEDICATIONS:1. Metoprolol tartrate 25 mg p.o. b.i.d.2. Multiple vitamin, folic acid 400 mcg tablet.3. Pravastatin 40 mg p.o. daily.4. Thiamine (vitamin B1) 100 mg tablet p.o. daily.5. Apixaban 5 mg p.o. b.i.d. (holding at this time).Reviewed By:Jarad Ayon MD 06/21/2017 01:29 PElectronically Signed by:Diogenes Ren M.D. 06/22/2017 08:54 A Diogenes Ren M.D...Date Dict: 06/19/2017/05:47 P/Jarad Ayon MDDate Trans: 06/20/2017 04:29 P/rasheedaoDN_JN:[id number]: Diogenes Casiano M.D. [address], [facility] [address] Normal [facility] MAGNESIUM BLOODon 06-20-2017 Magnesium 2.0 mg/dL Normal 1.9-2.7 [facility] Comment on above: Order Comment: No: Do not add to previou s draw Performed By: #### 4 1000, 78073, 71270, 10804, 48854 ####[facility] PHOSPHORUS BLOODon 8 Phosphate 3.5 mg/dL Normal 2.5-5.0 [facility] Comment on above: Order Comment: No: Do not add to previou s draw Performed By: #### 4 1000, 35472, 39718, 30541, 13005 ####[facility] BASIC METABOLIC PANELon Calcium 8.5 mg/dL Low 8.6-10.3 [facility] Comment on above: Order Comment: No: Do not add to previou s draw Performed By: #### 4 1000, 81437, 51188, 35567, 28655 ####[facility] Chloride 105 mmol/L Normal 98-107 [facility] Comment on above: Order Comment: No: Do not add to previou s draw Performed By: #### 4 1000, 40215, 89068, 93412, 89042 ####[facility] CO2 26 mmol/L Normal 21-31 [facility] Comment on above: Order Comment: No: Do not add to previou s draw Performed By: #### 4 1000, 72815, 68675, 45826, 03633 ####[facility] Creatinine 0.95 mg/dL Normal 0.70-1.30 [facility] Comment on above: Order Comment: No: Do not add to previou s draw Performed By: #### 4 1000, 93376, 36671, 25459, 89447 ####[facility] eGFR (black) mL/min/{1.73_m2} Normal >60 [facility] Comment on above: Order Comment: No: Do not add to previou s draw Result Comment: Calc ulation may not be valid for patients over 70 years Performed By: #### 4 1000, 04381, 33089, 20858, 29401 ####[facility] eGFR (non-black) mL/min/{1.73_m2} Normal >60 Th e [facility] Comment on above: Order Comment: No: Do not add to previou s draw Result Comment: Calc ulation may not be valid for patients over 70 years Performed By: #### 4 1000, 52122, 97437, 29495, 51757 ####[facility] [place] [address], [facility] Glucose mass conc 102 mg/dL High 70-100 [facility] Comment on above: Order Comment: No: Do not add to previou s draw Performed By: #### 4 1000, 01401, 20851, 57403, 95890 ####[facility] [place] [address], [facility] Potassium molar conc 3.7 mmol/L Normal 3.5-5.1 [facility] Comment on above: Order Comment: No: Do not add to previou s draw Performed By: #### 4 1000, 79130, 46668, 05381, 38166 ####[facility] [place] [address], [facility] Sodium 139 mmol/L Normal 136-145 [facility] Comment on above: Order Comment: No: Do not add to previou s draw Performed By: #### 4 1000, 83528, 30843, 11407, 90486 ####[facility] [place] [address], [facility] Urea nitrogen 17 mg/dL Normal 7-25 [facility] Comment on above: Order Comment: No: Do not add to previou s draw Performed By: #### 4 1000, 98228, 12810, 80625, 79571 ####[facility] CBC W/DIFFon 06-19-2017 Basophils Auto #/vol (Bld) 0.5 % Normal 0.0-2.0 [facility] Comment on above: Order Comment: No: Do not add to previou s draw Performed By: #### 4 1000, 08324, 18939, 72853, 11557 ####[facility] Eosinophils/100 leukocytes 1.0 % Normal 0.0-5.0 [facility] Comment on above: Order Comment: No: Do not add to previou s draw Performed By: #### 4 1000, 87516, 88938, 30230, 20437 ####[facility] Erythrocyte distribution width Auto Ratio (RBC) 13.7 % Normal 11.5-16.9 [facility] Comment on above: Order Comment: No: Do not add to previou s draw Performed By: #### 4 1000, 53642, 89887, [address], 01464 ####[facility] Erythrocytes (RBC) 4.33 mill/mm3 Normal 4.30-5.90 [facility] Comment on above: Order Comment: No: Do not add to previou s draw Performed By: #### 4 1000, 00970, 08029, 91858, 04143 ####[facility] Hematocrit (HCT) 41.5 % Normal 39.0-55.0 [facility] Comment on above: Order Comment: No: Do not add to previou s draw Performed By: #### 4 1000, 78652, 19861, 11710, 35995 ####[facility] Hemoglobin mass conc (Bld) 14.1 g/dL Normal 13.9-16.3 [facility] Comment on above: Order Comment: No: Do not add to previou s draw Performed By: #### 4 1000, 25232, 19915, 98346, 96203 ####[facility] Lymphocytes/100 leukocytes 11.5 % Low 20.0-40.0 [facility] Comment on above: Order Comment: No: Do not add to previou s draw Performed By: #### 4 1000, 60568, 00100, 29426, 78439 ####[facility] MCH 32.7 pg High 24.0-32.0 [facility] Comment on above: Order Comment: No: Do not add to previou s draw Performed By: #### 4 1000, 88321, 11213, 25908, 06298 ####[facility] MCHC mass conc (RBC) 34.1 g/dL Normal 32.0-36.0 [facility] Comment on above: Order Comment: No: Do not add to previou s draw Performed By: #### 4 1000, 10975, 57229, 12257, 51851 ####[facility] MCV 95.9 fL Normal 80.0-100.0 [facility] Comment on above: Order Comment: No: Do not add to previou s draw Performed By: #### 4 1000, 57551, 30687, 34614, 57652 ####[facility] [place] [address], [facility] METHOD Normal RBC Morphology Normal [facility] Comment on above: Order Comment: No: Do not add to previou s draw Performed By: #### 4 1000, 10582, 29285, 33750, 16148 ####[facility] [place] [address], [facility] MONOS 11.9 % High 2-8 [facility] Comment on above: Order Comment: No: Do not add to previou s draw Performed By: #### 4 1000, 35957, 53833, 78550, 80964 ####[facility] [place] [address], [facility] Neutrophils/100 leukocytes 75.1 % High 50-70 [facility] Comment on above: Order Comment: No: Do not add to previou s draw Performed By: #### 4 1000, 93787, 38373, 45873, 93295 ####[facility] [place] [address], [facility] PLAT CNT 192 Thou/mm3 Normal 100-400 [facility] Comment on above: Order Comment: No: Do not add to previou s draw Performed By: #### 4 1000, 27335, 56059, 24727, 03011 ####[facility] [place] [address], [facility] WBC (Leukocytes) 10.7 Thou/mm3 High 4.0-10.0 [facility] Comment on above: Order Comment: No: Do not add to previou s draw Performed By: #### 4 1000, 96794, 10167, 60397, 12132 ####[facility] [place] [address], [facility] CPKon 06-19-2017 Creatine kinase (CK) 252 U/L High 30-223 [facility] Comment on above: Performed By: #### 66343, 24811, 65051, 33409, 81033 ####[facility] [place] [address], [facility] MAGNESIUM BLOODon 06-19-2017 Magnesium 2.0 mg/dL Normal 1.9-2.7 [facility] Comment on above: Order Comment: No: Do not add to previou s draw Performed By: #### 4 1000, 38868, 36225, 18967, 41489 ####[facility] [place] [address], [facility] MYOGLOBINon 06-19-2017 Myoglobin 213 ng/mL Critically high 0-90 [facility] Comment on above: Result Comment: A DOUBLING OF VALUES FRO M SERIAL BLOOD COLLECTIONS(1 - 2 HOURS APART) IS MORE INDICATIVE OF A M.I.THAN THE ABSOLUTE VALUE. Performed By: #### 4 1000, 32351, 83637, 67406, 08602 ####[facility] [place] [address], [facility] PHOSPHORUS BLOODon 8 Phosphate 2.7 mg/dL Normal 2.5-5.0 [facility] Comment on above: Order Comment: No: Do not add to previou s draw Performed By: #### 4 1000, 18973, 44800, 22264, 48527 ####[facility] [place] [address], [facility] ALBUMIN BLOODon 06-18-2017 Albumin 2.6 g/dL Low 3.5-5.7 [facility] Comment on above: Performed By: #### 55346, 66004, 55105, 00803, 62207 ####[facility] [place] [address], [facility] BASIC METABOLIC PANELon Calcium 8.4 mg/dL Low 8.6-10.3 [facility] Comment on above: Order Comment: No: Do not add to previou s draw Performed By: #### 5 0608 ####[facility] [place] [address], [facility] Chloride 106 mmol/L Normal 98-107 [facility] Comment on above: Order Comment: No: Do not add to previou s draw Performed By: #### 5 0608 ####[facility] [place] [address], [facility] CO2 25 mmol/L Normal 21-31 [facility] Comment on above: Order Comment: No: Do not add to previou s draw Performed By: #### 5 0608 ####[facility] [facility] [address], [facility] Creatinine 0.93 mg/dL Normal 0.70-1.30 [facility] Comment on above: Order Comment: No: Do not add to previou s draw Performed By: #### 5 0608 ####[facility]3000 [facility].[address] eGFR (black) mL/min/{1.73_m2} Normal >60 [facility] Comment on above: Order Comment: No: Do not add to previou s draw Result Comment: Calc ulation may not be valid for patients over 70 years Performed By: #### 5 0608 ####[facility]3000 [facility].[address] eGFR (non-black) mL/min/{1.73_m2} Normal >60 Th e [facility] Comment on above: Order Comment: No: Do not add to previou s draw Result Comment: Calc ulation may not be valid for patients over 70 years Performed By: #### 5 0608 ####[facility] [place] [address], [facility] Glucose mass conc 106 mg/dL High 70-100 [facility] Comment on above: Order Comment: No: Do not add to previou s draw Performed By: #### 5 0608 ####[facility] [place] [address], [facility] Potassium molar conc 3.4 mmol/L Low 3.5-5.1 [facility] Comment on above: Order Comment: No: Do not add to previou s draw Performed By: #### 5 0608 ####[facility] [facility].[address] Sodium 137 mmol/L Normal 136-145 [facility] Comment on above: Order Comment: No: Do not add to previou s draw Performed By: #### 5 0608 ####[facility] Urea nitrogen 21 mg/dL Normal 7-25 [facility] Comment on above: Order Comment: No: Do not add to previou s draw Performed By: #### 5 0608 ####[place] [address] [facility].[address] CBC W/DIFFon 06-18-2017 Basophils Auto #/vol (Bld) 0.9 % Normal 0.0-2.0 [facility] Comment on above: Order Comment: No: Do not add to previou s draw Performed By: #### 5 0608 ####[facility] Eosinophils/100 leukocytes 2.3 % Normal 0.0-5.0 [facility] Comment on above: Order Comment: No: Do not add to previou s draw Performed By: #### 5 0608 ####[facility] Erythrocyte distribution width Auto Ratio (RBC) 13.6 % Normal 11.5-16.9 [facility] Comment on above: Order Comment: No: Do not add to previou s draw Performed By: #### 5 0608 ####[facility] [facility].[address] Erythrocytes (RBC) 4.37 mill/mm3 Normal 4.30-5.90 [facility] Comment on above: Order Comment: No: Do not add to previou s draw Performed By: #### 5 0608 ####[facility] Hematocrit (HCT) 42.0 % Normal 39.0-55.0 [facility] Comment on above: Order Comment: No: Do not add to previou s draw Performed By: #### 5 0608 ####[facility] [facility] Hemoglobin mass conc (Bld) 14.2 g/dL Normal 13.9-16.3 [facility] Comment on above: Order Comment: No: Do not add to previou s draw Performed By: #### 5 0608 ####[place] [address] Lymphocytes/100 leukocytes 15.2 % Low 20.0-40.0 [facility] Comment on above: Order Comment: No: Do not add to previou s draw Performed By: #### 5 0608 ####[facility]3000 [facility].[address] MCH 32.5 pg High 24.0-32.0 [facility] Comment on above: Order Comment: No: Do not add to previou s draw Performed By: #### 5 0608 ####[facility]3000 [facility].[address] MCHC mass conc (RBC) 33.8 g/dL Normal 32.0-36.0 [facility] Comment on above: Order Comment: No: Do not add to previou s draw Performed By: #### 5 0608 ####[facility] MCV 96.1 fL Normal 80.0-100.0 [facility] Comment on above: Order Comment: No: Do not add to previou s draw Performed By: #### 5 0608 ####[facility] [place] [address], [facility] METHOD Normal RBC Morphology Normal [facility] Comment on above: Order Comment: No: Do not add to previou s draw Performed By: #### 5 0608 ####[facility] [place] [address], [facility] MONOS 11.8 % High 2-8 [facility] Comment on above: Order Comment: No: Do not add to previou s draw Performed By: #### 5 0608 ####[facility] [place] [address], [facility] Neutrophils/100 leukocytes 69.8 % Normal 50-70 [facility] Comment on above: Order Comment: No: Do not add to previou s draw Performed By: #### 5 0608 ####[facility] [place] [address], [facility] PLAT CNT 168 Thou/mm3 Normal 100-400 [facility] Comment on above: Order Comment: No: Do not add to previou s draw Performed By: #### 5 0608 ####[facility] [place] [address], [facility] WBC (Leukocytes) 10.8 Thou/mm3 High 4.0-10.0 [facility] Comment on above: Order Comment: No: Do not add to previou s draw Performed By: #### 5 0608 ####[facility] [place] [address], [facility] CPKon 06-18-2017 Creatine kinase (CK) 586 U/L High 30-223 [facility] Comment on above: Performed By: #### 37712, 28432, 43190, 51810, 43685 ####[facility] [place] [address], [facility] MAGNESIUM BLOODon 06-18-2017 Magnesium 1.9 mg/dL Normal 1.9-2.7 [facility] Comment on above: Order Comment: No: Do not add to previou s draw Performed By: #### 5 0608 ####[facility] MYOGLOBINon 06-18-2017 Myoglobin 353 ng/mL Critically high 0-90 [facility] Comment on above: Result Comment: A DOUBLING OF VALUES FRO M SERIAL BLOOD COLLECTIONS(1 - 2 HOURS APART) IS MORE INDICATIVE OF A M.I.THAN THE ABSOLUTE VALUE. Performed By: #### 4 1000, 02700, 42715, 10920, 43493 ####[facility] [place] [address], [facility] PHOSPHORUS BLOODon 8 Phosphate 3.7 mg/dL Normal 2.5-5.0 [facility] Comment on above: Order Comment: No: Do not add to previou s draw Performed By: #### 5 0608 ####[facility] BASIC METABOLIC PANELon Calcium 8.4 mg/dL Low 8.6-10.3 [facility] Comment on above: Order Comment: No: Do not add to previou s draw Performed By: #### 5 0608 ####[facility] [place] [address], [facility] Chloride 110 mmol/L High 98-107 [facility] Comment on above: Order Comment: No: Do not add to previou s draw Performed By: #### 5 0608 ####[facility] [place] [address], [facility] CO2 25 mmol/L Normal 21-31 [facility] Comment on above: Order Comment: No: Do not add to previou s draw Performed By: #### 5 0608 ####[facility] [place] [address], [facility] Creatinine 0.95 mg/dL Normal 0.70-1.30 [facility] Comment on above: Order Comment: No: Do not add to previou s draw Performed By: #### 5 0608 ####[facility] [place] [address], [facility] eGFR (black) mL/min/{1.73_m2} Normal >60 [facility] Comment on above: Order Comment: No: Do not add to previou s draw Result Comment: Calc ulation may not be valid for patients over 70 years Performed By: #### 5 0608 ####[facility] [place] [address], [facility] eGFR (non-black) mL/min/{1.73_m2} Normal >60 Th e [facility] Comment on above: Order Comment: No: Do not add to previou s draw Result Comment: Calc ulation may not be valid for patients over 70 years Performed By: #### 5 0608 ####[facility] [place] [address], [facility] Glucose mass conc 107 mg/dL High 70-100 [facility] Comment on above: Order Comment: No: Do not add to previou s draw Performed By: #### 5 0608 ####[facility] [place] [address], [facility] Potassium molar conc 3.5 mmol/L Normal 3.5-5.1 [facility] Comment on above: Order Comment: No: Do not add to previou s draw Performed By: #### 5 0608 ####[facility] [place] [address], [facility] Sodium 141 mmol/L Normal 136-145 [facility] Comment on above: Order Comment: No: Do not add to previou s draw Performed By: #### 5 0608 ####[facility] Urea nitrogen 23 mg/dL Normal 7-25 [facility] Comment on above: Order Comment: No: Do not add to previou s draw Performed By: #### 5 0608 ####[facility] CBC COMPLETE BLOOD COUNTon 0 - Erythrocyte distribution width Auto Ratio (RBC) 13.7 % Normal 11.5-16.9 [facility] Comment on above: Order Comment: No: Do not add to previou s draw Performed By: #### 5 0608 ####[facility] Erythrocytes (RBC) 4.45 mill/mm3 Normal 4.30-5.90 [facility] Comment on above: Order Comment: No: Do not add to previou s draw Performed By: #### 5 0608 ####[facility] Hematocrit (HCT) 42.9 % Normal 39.0-55.0 [facility] Comment on above: Order Comment: No: Do not add to previou s draw Performed By: #### 5 0608 ####[facility] Hemoglobin mass conc (Bld) 14.3 g/dL Normal 13.9-16.3 [facility] Comment on above: Order Comment: No: Do not add to previou s draw Performed By: #### 5 0608 ####[facility] MCH 32.1 pg High 24.0-32.0 [facility] Comment on above: Order Comment: No: Do not add to previou s draw Performed By: #### 5 0608 ####[facility] MCHC mass conc (RBC) 33.3 g/dL Normal 32.0-36.0 [facility] Comment on above: Order Comment: No: Do not add to previou s draw Performed By: #### 5 0608 ####[facility] [facility] [address], [facility] MCV 96.3 fL Normal 80.0-100.0 [facility] Comment on above: Order Comment: No: Do not add to previou s draw Performed By: #### 5 0608 ####[facility] [facility] [address], [facility] PLAT CNT 138 Thou/mm3 Normal 100-400 [facility] Comment on above: Order Comment: No: Do not add to previou s draw Performed By: #### 5 0608 ####[place] [address] [facility].[address] WBC (Leukocytes) 10.7 Thou/mm3 High 4.0-10.0 [facility] Comment on above: Order Comment: No: Do not add to previou s draw Performed By: #### 5 0608 ####[place] [address] [facility].[address] MYOGLOBINon 06-17-2017 Myoglobin 700 ng/mL Critically high 0-90 [facility] Comment on above: Result Comment: A DOUBLING OF VALUES FRO M SERIAL BLOOD COLLECTIONS(1 - 2 HOURS APART) IS MORE INDICATIVE OF A M.I.THAN THE ABSOLUTE VALUE. Performed By: #### 5 0608 ####[address] LUMBAR SPINE WO CONTRA STon 06-16-[address] LUMBAR SPINE WO CONTRAST [facility] Futttoprf[address] [place] [id number] Patient Name: DESEAN LANDRY : 2Sex: MAge: Race: WhiteMRN: [id number]. Location: [id number] Status: IVisit #: [id number] Date: 06/16/2017 10:45:00 AMCompleted Date: 06/16/2017 11:31 AMRequesting Provider: NADEEN SALCEDO Attending Provider: NADEEN SALCEDO Report Copy To: Signs & Symptoms: Back Pain (specify level)History: Patient history not availableComments: R/O Fractures, If Other selected, state reason for examExam: 3D CT LUMBAR SPINE WO CONTRASTAccession #: [id number] 3D CT LUMBAR SPINE WO CONTRAST 06/16/2017 11:32 AM EST TECHNOLOGIST COMMENTS: patient complains of upper and lower back pain post fall x 4 days ago QUESTION FOR RADIOLOGIST: R/O Fractures, If Other selected, state reason for exam PROTOCOL: Axial CT images of the spine were obtained without IV contrast. TECHNIQUE: Multi detector CT axial slices of the lumbar spine without IV contrast. Volumetric acquisition sagittal, coronal, and 3-D reconstructions were performed and reviewed on a separate workstation. Appropriate CT dose lowering techniques were utilized. COMPARISON: None FINDINGS: Satisfactory alignment of the normal lumbar spine lordotic curvature.The vertebral body heights and intervertebral disc spaces are well-preserved.Large anterior osteophytes and syndesmophyte formation throughout the lumbar spine. Degenerative changes throughout the lumbar spine, most pronounced at L4-L5 and L5-S1 with facet joint hypertrophy and disc pathology causing central canal and neural foraminal narrowing. The posterior elements are intact.There is sclerosis and spur formation at the SI joints. Visualized portion of the abdomen is unremarkable.Dependent atelectasis with bilateral pleural effusions at the lung bases. IMPRESSION: 1. No acute osseous abnormalities in the lumbar spine.2. Degenerative changes throughout the lumbar spine, most pronounced at L4-L5 and L5-S1 with facet joint hypertrophy. Approved by:Paola Wolf on 06/16/2017 11:56 AM EST. I, Srinath Meyer, have reviewed the images and report and concur with these findings. Electronically signed by:Srinath Meyer. Transcribed by: [email or web address], User Resident: PAOLA WOLFElectronically Signed by: SRINATH MEYER @ 06/16/2017 12:13 PMI personally read this/these film(s) with this resident Normal [facility] Comment on above: Order Comment: No: Do not add to previou s draw 3D CT THORACIC SPINE WO CONT RASTon 06-16-[address] THORACIC SPINE WO CONTRAST [facility] [address] [place] [address] Patient Name: DESEAN LANDRY : 1940ex: MAge: Race: WhiteMRN: [id number]. Location: [id number] Status: IVisit #: [id number] Date: 06/16/2017 10:45:00 AMCompleted Date: 06/16/2017 11:32 AMRequesting Provider: NADEEN SALCEDO Attending Provider: NADEEN SALCEDO Report Copy To: Signs & Symptoms: Back Pain (specify level)History: Patient history not availableComments: R/O Fractures, History of Fall and c/o Back Pain. Rule out fractureExam: 3D CT THORACIC SPINE WO CONTRASTAccession #: [id number] 3D CT THORACIC SPINE WO CONTRAST 06/16/2017 11:32 AM EST TECHNOLOGIST COMMENTS: Upper and lower back pain post fall 4 days ago. QUESTION FOR RADIOLOGIST: R/O Fractures PROTOCOL: Axial CT images of the spine were obtained without IV contrast. TECHNIQUE: Multi detector CT axial slices of the thoracic spine are obtained from the C5 to the L1 vertebral body without IV contrast. Volumetric acquisition sagittal, coronal, and 3-D reconstructions were performed and reviewed on a separate workstation. Appropriate CT dose lowering techniques were utilized. COMPARISON: None FINDINGS: There is preservation of the vertebral body heights and intervertebral discs. Anterolateral vertebral body spurring noted throughout the lower cervical and thoracic spine. No fractures or dislocations are seen. The alignment of the thoracic spine is normal. The paraspinous soft tissues are within normal limits. There are pleural effusions demonstrated bilaterally, layering on the left and multiple loculations on the right. Multiple areas of atelectasis and groundglass infiltrate demonstrated bilaterally. One area of consolidation noted within the right lower lobe demonstrates some peripheral calcifications. The visualized upper abdominal viscera is unremarkable. IMPRESSION: 1. No fracture of the thoracic spine.2. Anterolateral vertebral body endplate spurring compatible with DISH and ankylosing spondylitis.3. Multifocal atelectasis and consolidation with bilateral pleural effusions and multiple loculations on the right. Pneumonia cannot be excluded. Progress evaluation recommended to monitor for resolution. Approved by:Bharat Harris on 06/16/2017 11:52 AM EST. I, Srinath Meyer, have reviewed the images and report and concur with these findings. Electronically signed by:Srinath Meyer. Transcribed by: [email or web address], User Resident: CAN HARRISElectronically Signed by: SRINATH MEYER @ 06/16/2017 12:03 PMI personally read this/these film(s) with this resident Normal [facility] Comment on above: Order Comment: No: Do not add to previou s draw BASIC METABOLIC PANELon Calcium 7.9 mg/dL Low 8.6-10.3 [facility] Comment on above: Order Comment: No: Do not add to previou s draw Performed By: #### 0 0071, 88385 ####[facility] [place] [address], [facility] Chloride 112 mmol/L High 98-107 [facility] Comment on above: Order Comment: No: Do not add to previou s draw Performed By: #### 0 0071, 05740 ####[facility] [place] [address], [facility] CO2 22 mmol/L Normal 21-31 [facility] Comment on above: Order Comment: No: Do not add to previou s draw Performed By: #### 0 0071, 29939 ####[facility] [facility] [address], [facility] Creatinine 1.05 mg/dL Normal 0.70-1.30 [facility] Comment on above: Order Comment: No: Do not add to previou s draw Performed By: #### 0 0071, 50336 ####[facility] [facility].[address] eGFR (black) mL/min/{1.73_m2} Normal >60 [facility] Comment on above: Order Comment: No: Do not add to previou s draw Result Comment: Calc ulation may not be valid for patients over 70 years Performed By: #### 0 0071, 41830 ####[facility] [place] [address], [facility] eGFR (non-black) mL/min/{1.73_m2} Normal >60 Th e [facility] Comment on above: Order Comment: No: Do not add to previou s draw Result Comment: Calc ulation may not be valid for patients over 70 years Performed By: #### 0 0071, 12467 ####[facility] [id number], [facility] Glucose mass conc 102 mg/dL High 70-100 [facility] Comment on above: Order Comment: No: Do not add to previou s draw Performed By: #### 0 0071, 30417 ####[facility] [place] [address], [facility] Potassium molar conc 4.0 mmol/L Normal 3.5-5.1 [facility] Comment on above: Order Comment: No: Do not add to previou s draw Performed By: #### 0 0071, 93645 ####[facility] [place] [address], [facility] Sodium 139 mmol/L Normal 136-145 [facility] Comment on above: Order Comment: No: Do not add to previou s draw Performed By: #### 0 0071, 53869 ####[facility] [place] [address], [facility] Urea nitrogen 20 mg/dL Normal 7-25 [facility] Comment on above: Order Comment: No: Do not add to previou s draw Performed By: #### 0 0071, 34034 ####[facility] [place] [address], [facility] BNP (B-TYPE NATRIURETIC PEPT DEANNE)on 06-16-2017 BNP 1298 pg/mL High 0-100 [facility] Comment on above: Order Comment: No: Do not add to previou s draw Result Comment: Give n the appropriate clinical setting a BNP result of >100 pg/mLindicates congestive heart failure. Performed By: #### 5 0608 ####[facility] [place] [address], [facility] CBC COMPLETE BLOOD COUNTon 0 06-16-2017 Erythrocyte distribution width Auto Ratio (RBC) 13.7 % Normal 11.5-16.9 [facility] Comment on above: Order Comment: No: Do not add to previou s draw Performed By: #### 0 0071, 20619 ####[facility] Erythrocytes (RBC) 4.24 mill/mm3 Low 4.30-5.90 [facility] Comment on above: Order Comment: No: Do not add to previou s draw Performed By: #### 0 0071, 56375 ####[facility] Hematocrit (HCT) 40.7 % Normal 39.0-55.0 [facility] Comment on above: Order Comment: No: Do not add to previou s draw Performed By: #### 0 0071, 69961 ####[facility] [facility].[address] Hemoglobin mass conc (Bld) 13.6 g/dL Low 13.9-16.3 [facility] Comment on above: Order Comment: No: Do not add to previou s draw Performed By: #### 0 007, 99026 ####[facility] MCH 32.1 pg High 24.0-32.0 [facility] Comment on above: Order Comment: No: Do not add to previou s draw Performed By: #### 0 007, 66077 ####[facility] [facility] MCHC mass conc (RBC) 33.4 g/dL Normal 32.0-36.0 [facility] Comment on above: Order Comment: No: Do not add to previou s draw Performed By: #### 0 0071, 54435 ####[facility] [facility] [address], [facility] MCV 96.1 fL Normal 80.0-100.0 [facility] Comment on above: Order Comment: No: Do not add to previou s draw Performed By: #### 0 0071, 73614 ####[facility] PLAT CNT 120 Thou/mm3 Normal 100-400 [facility] Comment on above: Order Comment: No: Do not add to previou s draw Performed By: #### 0 0071, 63273 ####[facility] WBC (Leukocytes) 10.3 Thou/mm3 High 4.0-10.0 [facility] Comment on above: Order Comment: No: Do not add to previou s draw Performed By: #### 0 0071, 12060 ####[address] CPKon 06-16-2017 Creatine kinase (CK) 2950 U/L Critically high 30-223 [facility] Comment on above: Performed By: #### 12929, 56867 ####[address] CR-PORTABLE CHEST 1 VIEW IMP Emeli 06-16-2017 CR-PORTABLE CHEST 1 VIEW IMPORT Images were obtained outside of [facility] [id number] Normal [facility] CT CHEST WO CONTRASTon 06-16 CT CHEST WO CONTRAST [facility] [id number] [place] [address] Patient Name: DESEAN LANDRY : 2Sex: MAge: Race: WhiteMRN: [id number]. Location: [id number] Status: IVisit #: [id number] Date: 06/16/2017 5:25:00 PMCompleted Date: 06/16/2017 06:06 PMRequesting Provider: RAFFAELE GARCIA Attending Provider: NADEEN SALCEDO Report Copy To: Signs & Symptoms: Shortness of BreathHistory: Patient history not availableComments: R/O Pleural Effusion, please comment about pleural effusionExam: CT CHEST WO CONTRASTAccession #: [id number] CT CHEST WO CONTRAST 06/16/2017 6:06 PM EST SIGN AND SYMPTOMS: Shortness of Breath TECHNOLOGIST COMMENTS: ? pleural effusion sob QUESTIONS PER RADIOLOGIST: R/O Pleural Effusion, please comment about pleural effusion PROTOCOL: Axial CT images of the chest were obtained without IV contrast. TECHNIQUE: Multidetector CT axial slices of the chest were obtained without IV contrast. Multiplanar reformats were performed and viewed on a separate workstation and reviewed to further define anatomy and possible pathology.Appropriate CT dose lowering techniques were utilized. COMPARISON: Chest radiograph June 16, 2017. FINDINGS:Lower neck: Thyroid gland within normal limits, no supraclavicle adenopathy.Vessels: Within normal limits. Moderate atherosclerotic changes in the aorta. and coronary arteries. Mediastinum and Colleen: Within normal limits. A few calcified mediastinal and left hilar lymph nodes. No pathologically enlarged lymph nodes.Heart: Mild coronary calcifications and minimal pericardial effusion.Airways: Within normal limitsLungs: Bilateral scattered mild atelectatic bands/scarring. Left upper lung lobe calcified granuloma.Pleura: There is right-sided loculated pleural effusion along the lateral and medial pleural reflections with increased CT density up to 40 Hounsfield units. Minor fissure effusion noted. There is right posterior pleural calcifications with a pleural based soft tissue density measuring approximately 2.8 x 5.9 cm. Small left pleural effusion.Chest Wall: Within normal limits. Upper Abdomen: Within normal limits. Multiple splenic calcified granulomas. Bones: No acute osseous abnormality. Thoracic spine fused osteophytes suggesting ankylosing spondylitis. IMPRESSION:* Right-sided loculated pleural effusion along the lateral and medial pleural reflection with increased CT density up to 40 Hounsfield units, worrisome for empyema. Possibility of mesothelioma cannot be excluded. Sampling may be needed for definitive diagnosis.* Right-sided posterior pleural calcification with a pleural-based soft tissue density as above described. Pleural plaque versus mesothelioma is suspected. Approved by:Sunitha Camacho on 06/17/2017 9:55 AM EST. I, Xiomara Christine, have reviewed the images and report and concur with these findings. Electronically signed by:Xiomara Christine. Transcribed by: [email or web address], User Resident: SUNITHA CAMACHOElectronically Signed by: XIOMARA CHRISTINE @ 06/17/2017 01:24 PMI personally read this/these film(s) with this resident Normal [facility] Comment on above: Order Comment: No: Do not add to previou s draw CT-3D CT LUMBAR SPINE WO CON TRAST IMPORTon 06-16-2017 CT-3D CT LUMBAR SPINE WO CONTRAST IMPORT Images were obtained outside of [facility] [id number] Normal [facility] CT-3D CT THORACIC SPINE WO C ONTRAST IMPORTon 06-16-2017 CT-3D CT THORACIC SPINE WO CONTRAST IMPORT Images were obtained outside of [facility] [id number] Normal [facility] CT-CT CHEST WO CONTRAST IMPO RTon 06-16-2017 CT-CT CHEST WO CONTRAST IMPORT Images were obtained outside of [facility] [id number] Normal [facility] MYOGLOBINon 06-16-2017 Myoglobin 872 ng/mL Critically high 0-90 [facility] Comment on above: Result Comment: A DOUBLING OF VALUES FRO M SERIAL BLOOD COLLECTIONS(1 - 2 HOURS APART) IS MORE INDICATIVE OF A M.I.THAN THE ABSOLUTE VALUE. Performed By: #### 0 0071, 86542 ####[address] PORTABLE CHEST 1 VIEWon PORTABLE CHEST 1 VIEW [facility] [address] [place] [address] Patient Name: DESEAN LANDRY : 1941Sex: MAge: Race: WhiteMRN: [id number]. Location: [id number] Status: IVisit #: [id number] Date: 06/16/2017 12:50:00 PMCompleted Date: 06/16/2017 01:22 PMRequesting Provider: NADEEN SALCEDO Attending Provider: NADEEN SALCEDO Report Copy To: Signs & Symptoms: O2 DesaturationHistory: Patient history not availableComments: R/O AspirationExam: PORTABLE CHEST 1 VIEWAccession #: [id number] PORTABLE CHEST 1 VIEW 06/16/2017 1:22 PM EST SIGNS AND SYMPTOMS: O2 Desaturation TECHNOLOGIST COMMENTS: Shortness of breath. QUESTION FOR THE RADIOLOGIST: R/O Aspiration PROTOCOL: AP(PA) view was obtained. COMPARISON: None FINDINGS: The trachea is to the right of midline. There is partial collapse of the right lung with areas of loculated pleural effusion. There is consolidation in the right mid and lower lung harmon. The left lung remains grossly clear with a small left pleural effusion blunting the left costophrenic sulcus. There is cardiomegaly. The bony thorax is grossly intact. IMPRESSION: Volume loss within the right side of the chest causing mild rightward deviation of the trachea. Loculated pleural effusions within the right chest with basilar consolidation. Small left-sided pleural effusion with an otherwise clear left chest. Electronically signed by:Srinath Meyer. Transcribed by: [email or web address], User Resident: Electronically Signed by: SRINATH MEYER @ 06/16/2017 01:25 PM Jay Em [facility] Comment on above: Order Comment: No: Do not add to previou s draw PROTHROMBIN TIMEon 8 INR Coag RelTime (PPP) 1.51 {INR} High 0.91-1.16 [facility] Comment on above: Order Comment: No: Do not add to previou s draw Result Comment: ACCC P RECOMMENDED INR FOR WARFARIN THERAPY CONDITION INRPROPHYLAXIS OF VENOUS THROMBOSIS 2-3(HIGH-RISK SURGERY)TREATMENT OF VENOUS THROMBOSIS 2-3TREATMENT OF PULMONARY EMBOLISM 2-3PREVENTION OF SYSTEMIC EMBOLISM: 2-3 ACUTE MYOCARDIAL INFARCTION TISSUE HEART VALVES VALVULAR HEART DISEASE ATRIAL FIBRILLATION RECURRENT SYSTEMIC EMBOLISMMECHANICAL HEART VALVE 2.5-3.5 FROM: ORAL ANTICOAGULANTS. MECHANISM OF ACTION, CLINICALEFFECTIVENESS, AND OPTIMAL THERAPEUTIC RANGE. [id number]. Performed By: #### 5 0608 ####[facility] [facility].[address] Prothrombin time (PT) Coag time (PPP) 18.4 s High 12.3-14.8 [facility] Comment on above: Order Comment: No: Do not add to previou s draw Result Comment: ALL RESULTS MUST BE INTERPRETED WITH RESPECT TO BLOOD DRAWING ARTIFACTOR DILUTION ERROR OF ANTICOAGULANT AT THE TIME OF SAMPLING. Performed By: #### 5 0608 ####[facility] [facility].[address] BASIC METABOLIC PANELon Calcium 8.0 mg/dL Low 8.6-10.3 [facility] Comment on above: Order Comment: No: Do not add to previou s draw Performed By: #### 0 0071, 03190, 10271, 73546 ####[facility] [place] [address], [facility] Chloride 109 mmol/L High 98-107 [facility] Comment on above: Order Comment: No: Do not add to previou s draw Performed By: #### 0 0071, 35906, 35452, 58114 ####[facility] [place] [address], [facility] CO2 21 mmol/L Normal 21-31 [facility] Comment on above: Order Comment: No: Do not add to previou s draw Performed By: #### 0 0071, 48013, 06930, 05696 ####[facility] Creatinine 1.15 mg/dL Normal 0.70-1.30 [facility] Comment on above: Order Comment: No: Do not add to previou s draw Performed By: #### 0 0071, 46669, 19857, 46279 ####[facility] eGFR (black) mL/min/{1.73_m2} Normal >60 [facility] Comment on above: Order Comment: No: Do not add to previou s draw Result Comment: Calc ulation may not be valid for patients over 70 years Performed By: #### 0 0071, 18991, 95226, 18600 ####[facility], [place] [address] [place] [address] eGFR (non-black) mL/min/{1.73_m2} Normal >60 Th e [facility] Comment on above: Order Comment: No: Do not add to previou s draw Result Comment: Calc ulation may not be valid for patients over 70 years Performed By: #### 0 0071, 12916, 41468, 43643 ####[facility] [place] [address], [facility] Glucose mass conc 117 mg/dL High 70-100 [facility] Comment on above: Order Comment: No: Do not add to previou s draw Performed By: #### 0 0071, 85424, 47018, 53602 ####[facility] [place] [address], [facility] Potassium molar conc 3.9 mmol/L Normal 3.5-5.1 [facility] Comment on above: Order Comment: No: Do not add to previou s draw Performed By: #### 0 0071, 09119, 47241, 72887 ####[facility] [place] [address], [facility] Sodium 138 mmol/L Normal 136-145 [facility] Comment on above: Order Comment: No: Do not add to previou s draw Performed By: #### 0 0071, 75391, 91293, 89891 ####[facility] [place] [address], [facility] Urea nitrogen 23 mg/dL Normal 7-25 [facility] Comment on above: Order Comment: No: Do not add to previou s draw Performed By: #### 0 0071, 05046, 00608, 00884 ####[facility] [place] [address], [facility] CBC COMPLETE BLOOD COUNTon 0 06-15-2017 Erythrocyte distribution width Auto Ratio (RBC) 13.7 % Normal 11.5-16.9 [facility] Comment on above: Order Comment: No: Do not add to previou s draw Performed By: #### 5 0608 ####[facility] [place] [address], [facility] Erythrocytes (RBC) 4.44 mill/mm3 Normal 4.30-5.90 [facility] Comment on above: Order Comment: No: Do not add to previou s draw Performed By: #### 5 0608 ####[facility] Hematocrit (HCT) 42.7 % Normal 39.0-55.0 [facility] Comment on above: Order Comment: No: Do not add to previou s draw Performed By: #### 5 0608 ####[facility] [facility] Hemoglobin mass conc (Bld) 14.5 g/dL Normal 13.9-16.3 [facility] Comment on above: Order Comment: No: Do not add to previou s draw Performed By: #### 5 0608 ####[facility] [facility].[address] MCH 32.7 pg High 24.0-32.0 [facility] Comment on above: Order Comment: No: Do not add to previou s draw Performed By: #### 5 0608 ####[facility] MCHC mass conc (RBC) 34.0 g/dL Normal 32.0-36.0 [facility] Comment on above: Order Comment: No: Do not add to previou s draw Performed By: #### 5 0608 ####[facility] [facility].[address] MCV 96.1 fL Normal 80.0-100.0 [facility] Comment on above: Order Comment: No: Do not add to previou s draw Performed By: #### 5 0608 ####[facility] [facility].[address] PLAT CNT 134 Thou/mm3 Normal 100-400 [facility] Comment on above: Order Comment: No: Do not add to previou s draw Performed By: #### 5 0608 ####[facility] [facility] [place] [address], [facility] WBC (Leukocytes) 11.3 Thou/mm3 High 4.0-10.0 [facility] Comment on above: Order Comment: No: Do not add to previou s draw Performed By: #### 5 0608 ####[facility] [facility] CPKon 06-15-2017 Creatine kinase (CK) 7925 U/L Critically high 30-223 [facility] Comment on above: Order Comment: No: Do not add to previou s draw Performed By: #### 0 0071, 67019 ####[facility] [facility].[address] MAGNESIUM BLOODon 06-15-2017 Magnesium 2.4 mg/dL Normal 1.9-2.7 [facility] Comment on above: Performed By: #### 52355, 47959 ####[facility] [facility].[address] PHOSPHORUS BLOODon 8 Phosphate 2.6 mg/dL Normal 2.5-5.0 [facility] Comment on above: Performed By: #### 18311, 86723 ####[address] BASIC METABOLIC PANELon 12-3 Calcium 8.3 mg/dL Low 8.6-10.3 [facility] Comment on above: Order Comment: No: Do not add to previou s draw Performed By: #### 4 1000, 48428, 67210, 73886, 10286 ####[facility] [facility] [address], [facility] Chloride 107 mmol/L Normal 98-107 [facility] Comment on above: Order Comment: No: Do not add to previou s draw Performed By: #### 4 1000, 95173, 32663, 63402, 78060 ####[facility] CO2 23 mmol/L Normal 21-31 [facility] Comment on above: Order Comment: No: Do not add to previou s draw Performed By: #### 4 1000, 45969, 61040, 88100, 08019 ####[facility] Creatinine 1.25 mg/dL Normal 0.70-1.30 [facility] Comment on above: Order Comment: No: Do not add to previou s draw Performed By: #### 4 1000, 65209, 31378, 05513, 82565 ####[facility] eGFR (black) mL/min/{1.73_m2} Normal >60 [facility] Comment on above: Order Comment: No: Do not add to previou s draw Result Comment: Calc ulation may not be valid for patients over 70 years Performed By: #### 4 1000, 86869, 41832, 41477, 82128 ####[facility] eGFR (non-black) 56 ml/min/1.73sq m Abnormal >60 [facility] Comment on above: Order Comment: No: Do not add to previou s draw Result Comment: Calc ulation may not be valid for patients over 70 years Performed By: #### 4 1000, 32835, 03123, 82743, 09099 ####[facility] Glucose mass conc 109 mg/dL High 70-100 [facility] Comment on above: Order Comment: No: Do not add to previou s draw Performed By: #### 4 1000, 84991, 19489, 02054, 83637 ####[facility] Potassium molar conc 4.3 mmol/L Normal 3.5-5.1 [facility] Comment on above: Order Comment: No: Do not add to previou s draw Performed By: #### 4 1000, 89021, 03427, 19832, 16543 ####[facility] [place] [address], [facility] Sodium 136 mmol/L Normal 136-145 [facility] Comment on above: Order Comment: No: Do not add to previou s draw Performed By: #### 4 1000, 19276, 56385, 03488, 61442 ####[facility] Urea nitrogen 25 mg/dL Normal 7-25 [facility] Comment on above: Order Comment: No: Do not add to previou s draw Performed By: #### 4 1000, 83032, 28087, 74129, 69952 ####[facility] CBC COMPLETE BLOOD COUNTon 1 Erythrocyte distribution width Auto Ratio (RBC) 13.8 % Normal 11.5-16.9 [facility] Comment on above: Order Comment: No: Do not add to previou s draw Performed By: #### 5 0608 ####[facility] Erythrocytes (RBC) 4.83 mill/mm3 Normal 4.30-5.90 [facility] Comment on above: Order Comment: No: Do not add to previou s draw Performed By: #### 5 0608 ####[facility] [place] [address], [facility] Hematocrit (HCT) 46.7 % Normal 39.0-55.0 [facility] Comment on above: Order Comment: No: Do not add to previou s draw Performed By: #### 5 0608 ####[facility] Hemoglobin mass conc (Bld) 15.8 g/dL Normal 13.9-16.3 [facility] Comment on above: Order Comment: No: Do not add to previou s draw Performed By: #### 5 0608 ####[facility]3000 [facility].[address] MCH 32.7 pg High 24.0-32.0 [facility] Comment on above: Order Comment: No: Do not add to previou s draw Performed By: #### 5 0608 ####[place] [id number] [facility].[address] MCHC mass conc (RBC) 33.9 g/dL Normal 32.0-36.0 [facility] Comment on above: Order Comment: No: Do not add to previou s draw Performed By: #### 5 0608 ####[facility] MCV 96.6 fL Normal 80.0-100.0 [facility] Comment on above: Order Comment: No: Do not add to previou s draw Performed By: #### 5 0608 ####[facility]3000 [facility].[address] PLAT CNT 135 Thou/mm3 Normal 100-400 [facility] Comment on above: Order Comment: No: Do not add to previou s draw Performed By: #### 5 0608 ####[facility]3000 [facility].[address] WBC (Leukocytes) 15.7 Thou/mm3 High 4.0-10.0 [facility] Comment on above: Order Comment: No: Do not add to previou s draw Performed By: #### 5 0608 ####[facility] [place] [address].[place] [address], [facility] CPKon 06-14-2017 Creatine kinase (CK) 53652 U/L Critically high 30-223 [facility] Comment on above: Performed By: #### 39343, 20249, 72028, 37568, 96330 ####[facility] [place] [address], [facility] MAGNESIUM BLOODon 06-14-2017 Magnesium 2.8 mg/dL High 1.9-2.7 [facility] Comment on above: Order Comment: No: Do not add to previou s draw Performed By: #### 4 1000, 60793, 85565, 52925, 96940 ####[facility] [place] [address], [facility] PHOSPHORUS BLOODon 7 Phosphate 3.3 mg/dL Normal 2.5-5.0 [facility] Comment on above: Order Comment: No: Do not add to previou s draw Performed By: #### 4 1000, 38578, 01846, 04649, 51591 ####[facility]3000 [facility].[address] TSHon 06-14-2017 Thyroid stimulating hormone (TSH) 2.65 MICRO-IU/ML Normal 0.34-5.60 [facility] Comment on above: Performed By: #### 35032, 89374, 60104, 54414, 96034 ####[facility] [facility] BASIC METABOLIC PANELon 05-17 Calcium 8.4 mg/dL Low 8.6-10.3 [facility] Comment on above: Order Comment: No: Do not add to previou s draw Performed By: #### 0 0071, 59336 ####[facility]3000 [facility] [place] [address], [facility] Chloride 105 mmol/L Normal 98-107 [facility] Comment on above: Order Comment: No: Do not add to previou s draw Performed By: #### 0 0071, 61604 ####[facility] [place] [address], [facility] CO2 26 mmol/L Normal 21-31 [facility] Comment on above: Order Comment: No: Do not add to previou s draw Performed By: #### 0 0071, 66467 ####[facility] [place] [address], [facility] Creatinine 1.26 mg/dL Normal 0.70-1.30 [facility] Comment on above: Order Comment: No: Do not add to previou s draw Performed By: #### 0 0071, 63311 ####[facility] [place] [address], [facility] eGFR (black) mL/min/{1.73_m2} Normal >60 [facility] Comment on above: Order Comment: No: Do not add to previou s draw Result Comment: Calc ulation may not be valid for patients over 70 years Performed By: #### 0 0071, 72680 ####[facility] [place] [address], [facility] eGFR (non-black) 56 ml/min/1.73sq m Abnormal >60 [facility] Comment on above: Order Comment: No: Do not add to previou s draw Result Comment: Calc ulation may not be valid for patients over 70 years Performed By: #### 0 0071, 83916 ####[facility] [place] [address], [facility] Glucose mass conc 106 mg/dL High 70-100 [facility] Comment on above: Order Comment: No: Do not add to previou s draw Performed By: #### 0 0071, 87682 ####[facility] [id number], [facility] Potassium molar conc 4.8 mmol/L Normal 3.5-5.1 [facility] Comment on above: Order Comment: No: Do not add to previou s draw Performed By: #### 0 0071, 40033 ####[facility] Sodium 138 mmol/L Normal 136-145 [facility] Comment on above: Order Comment: No: Do not add to previou s draw Performed By: #### 0 0071, 32077 ####[facility] Urea nitrogen 23 mg/dL Normal 7-25 [facility] Comment on above: Order Comment: No: Do not add to previou s draw Performed By: #### 0 0071, 01219 ####[facility] [facility] CPKon 06-13-2017 Creatine kinase (CK) 82665 U/L Critically high 30-223 [facility] Comment on above: Order Comment: No: Do not add to previou s draw Performed By: #### 0 0071, 57059 ####[facility]3000 [facility].[address] History and Physicalon 06-13 History and Physical [id number] Land[facility] Admitted: 06/13/2017 Date of : 1940 Attending Physician: Arpan Camacho MD Room #: [id number] Discharge Date: HISTORY AND PHYSICALPRIMARY CARE PHYSICIAN: Diogenes Casiano M.D.REASON FOR ADMISSION: Severe rhabdomyolysis.HISTORY OF PRESENT ILLNESS: This is a pleasant 76-year-old gentleman withpast medical history of chronic atrial fibrillation, on Eliquis; essentialhypertension, who lives alone, who came to the hospital after patient beingfound on the floor for almost 15 to 18 hours.As per the patient, he was fine at his baseline state of health, livesalone. Last night when he woke up to take his medication on his way backto his bedroom, his legs gave out and he fell on the floor. Did not hithis head. No loss of consciousness reported, but was feeling so weak andlethargic, unable to get up, so remained on the floor almost for 15-18hours, then eventually EMS [facility].The patient presented to the [facility] Emergency Department. Overthere, the patient had initial workup revealed severe rhabdomyolysis, sothe patient was referred to the [facility] for further evaluationand management. Denying any chest pain. Complaining of back pain.Complaining of generalized weakness and fatigue. No chest pain orshortness of breath. No abdominal pain. Denying any blood in the urine orbleeding per rectum. No nausea, vomiting or hematemesis reported.PAST MEDICAL HISTORY: As stated above, essential hypertension, chronicatrial fibrillation.SOCIAL HISTORY: No smoking, alcohol, or drug abuse.MEDICATIONS: Metoprolol 25 mg p.o. b.i.d., pravastatin 40 mg daily,Eliquis 5 mg p.o. b.i.d.REVIEW OF SYSTEMS: Ten review of systems were obtained and negative exceptdescribed in the HPI.FAMILY HISTORY: Negative for premature coronary artery disease.ALLERGIES: None.PHYSICAL EXAMINATION: VITAL SIGNS: Blood pressure is 127/77, pulse 80,respiratory rate 18, afebrile, saturation 97% on room air.GENERAL: An elderly male lying in bed, looks lethargic, but not in anyacute distress.HEENT: Head is normocephalic, atraumatic. Pupils are reactive to lightand accommodation. Extraocular muscles are intact. No scleral icterus.No pallor noted. No oral lesions or nasal discharge. Septum is midline.No oral lesions. Moist oral mucosa.NECK: Supple. No JVD. No carotid bruit. No thyromegaly or cervicallymphadenopathy.CHEST: No chest wall deformity noted.RESPIRATORY: Decreased air entry.CARDIOVASCULAR: S1, S2 heard. Regular rate.ABDOMEN: Bowel sounds audible. No tenderness. No hepatosplenomegaly.SKIN: Warm and dry.NEUROLOGIC: The patient is awake and alert without any focal deficits.EXTREMITIES: No cyanosis, no clubbing.LYMPHATICS: Negative cervical lymphadenopathy.PSYCHIATRIC: The patient's affect is normal. Alert to self, place, andtime.LAB DATA: CPK level 50,000. Rest of the labs are in progress.ASSESSMENT AND PLAN:1. Severe rhabdomyolysis. The patient will be admitted to medical floor with tele. We will initiate aggressive IV hydration. Hold off pravastatin at this time. Obtain thyroid profile and continue to monitor CPK levels along with renal functions closely.2. Essential hypertension, stable. Resume home regimen.3. Chronic atrial fibrillation, rate controlled. Continue with metoprolol and Eliquis.4. Unspecified dyslipidemia. Hold off pravastatin at this time.5. GI prophylaxis with Pepcid. DVT prophylaxis. The patient is already on Eliquis. Plan of care was discussed with the patient and medical staff at bedside. The patient is a full code.Electronically Signed by:Arpan Camacho MD 06/22/2017 07:28 A __Mariangel Hayes Dict: 06/13/2017/06:07 P/Mariangel Hayes Trans: 06/13/2017 06:38 [id number] Normal [facility] Encounters Encounter Date Encounter Type Care Provider Facility Start: 02-18-2023 End: [facility]-18[facility]: 12-05-2022 End: 12-05-2022 ambulatory AYDE WAGONER [facility] Start: 09-10-2022 End: 09-10-2022 ambulatory MYAH RUSSELL [facility] Start: 09-02-2022 Evaluation and management of inpatient [facility] Start: 09-01-2022 Evaluation and management of inpatient [facility] Start: 09-01-2022 ambulatory [facility] Start: 09-01-2022 End: 09-02-2022 Evaluation and management of inpatient [facility] Start: 08-26-2022 End: 08-27-[address] DIOGENES CASIANO . Facility:[facility] Start: 08-20-2022 End: 08-20-[address] DIOGENES CASIANO . Facility:[facility] Start: 07-30-2022 End: 07-31-[address] DIOGENES CASIANO . Facility:[facility] Start: 06-10-2022 End: 06-10-2022 ambulatory DAMIAN WOLF [facility] Start: 04-21-2022 End: 04-21-2022 ambulatory DRAGAN LOONEYMARKOADDISON [facility] Start: 03-02-2022 End: 03-03-[address] SRINATH MCKEON Facility:[facility] Start: 02-19-2022 End: 02-20-[address] DIOGENES CASIANO . Facility:[facility] Start: 01-15-2022 End: 01-16-[address] DIOGENES CASIANO . Facility: Start: 04-06-2018 End: 04-06-2018 Patient encounter procedure CESAR ROWLEY [facility] Start: 09-10-2017 End: 09-11-2017 Patient encounter procedure CESAR ROWLEY [facility] Start: 07-23-2017 End: 07-24-2017 Patient encounter procedure CESAR ROWLEY [facility] Start: 07-23-2017 End: 07-23-2017 Patient encounter procedure KALEB SANDOVAL [facility] Start: 06-13-2017 End: 06-20-2017 Evaluation and management of inpatient ARPAN FRANK Facility:[facility] Procedures Date Procedure Procedure Detail Performing Clinician Start: 07-30-[address] YUAN CASIANO . Comment on above: Performed By: #### P TT, PT #### [facility] [address] [place] [address] Dr. Artem Rojas Payers Date Payer Category Payer [facility] ([employer] and others) [id number] 1958 Medicare [id number] 1940 Unknown [id number] 1940 Unknown [id number] 1940 Unknown [id number] 1940 Unknown [id number] 1940 Unknown [id number] 1940 Unknown [id number] Medicare [id number] Clinical Notes 04-21-2022 to 02-18-2023 Note Date & Type Note Facility 02-18-2023 Note [place] Cardiology - [facility] Subjective Desean Ladnry Jr. is a 82 y.o. year old male patient being seen for Follow-up (Pt is here f/U) Patient Active Problem List Diagnosis Longstanding persistent atrial fibrillation (CMS/HCC) Primary hypertension Peripheral venous insufficiency Atrial fibrillation (CMS/HCC) Chronic obstructive lung disease (CMS/HCC) Closed nondisplaced fracture of sixth cervical vertebra (CMS/HCC) Dyspnea Hyperlipidemia Intermittent claudication (CMS/HCC) Low back pain PAD (peripheral artery disease) (CMS/HCC) Bradycardia Status post placement of cardiac pacemaker Family History Problem Relation Name Age of Onset Cancer Mother Social History Tobacco Use Smoking status: Former Types: Cigarettes Quit date: 2006 Years since quittin.6 Passive exposure: Past Smokeless tobacco: Never Substance Use Topics Alcohol use: Not Currently Drug use: Never HPI Mr Landry is seen in follow up. He is a 82 yo man with chronic AF on anticoagulation and rate control. Visit of 11/30/2015: He was referred from Dr Casiano's office for new onset atrial fibrillation. He is a 75 yo man who was undergoing a stress test for investigation of shortness of breath. He was found to have new onset atrial fibrillation. He was started on eliquis 5 mg twice daily. ECG 11/30/2015 showed atrial fibrillation with controlled ventricular rate of 80 bpm. Echocardiogram on 11/23/2015: normal ventricular function, mild atrial dilatation, mild aortic regurgitation. Stress test on 11/23/2015: normal ventricular function, fixed inferior defect (prior SD vs. artifact), normal wall motion, no ischemia. Blood testing 11/20/2015: normal CBC, normal renal function. LDL 125. TG 189. Visit of 06/05/2017: He denies chest pain. He has mild dyspnea on moderate exertion. He is currently taking aspirin 81 mg along with the eliquis. He is on metoprolol for rate control. He has claudication in the left leg. He says his left leg gets weak and he has to stop walking and rest before he can walk again. Apparently he has had these symptoms for a long time. In november of 2016 I checked ABIs and those were normal at rest and with exercise. Blood testing 12/03/2016: CBC ok, renal function and electrolytes within normal, TG 151, LDL 133, HDL 37, HbA1c 6.1%. He is ex-smoker, stopped 6 years ago. Update 07/08/2017: He was admitted recently to [facility] after falling and having rhabdomyolysis. He was hydrated. He did well. This was possibly related to deconditioning and he is getting physical therapy. He will be soon discharged to home from the [facility]. otherwise he has no issues. Update 02/04/2018: He is doing well. He will be getting cataract surgery. No chest pain. No dyspnea. No palpitations. No bleeding on eliquis. He does not take aspirin. He was previously investigated for leg cramps and ABIs were normal during rest and exercise. Update 07/26/2018: He is seen in follow up. He is doing well. He will be getting cataract surgery. No chest pain. No dyspnea. No palpitations. No bleeding on eliquis. He does not take aspirin. He was previously investigated for leg cramps and ABIs were normal during rest and exercise. He got cataract surgery in the left eye, possibly looking at the right eye. Update 03/14/2019: He is seen in follow-up. Since last visit he was admitted to the hospital with the episode of lower extremity cellulitis and was treated accordingly. Duplex ultrasound of the lower extremities did not show DVT. He was evaluated in clinic in January 2019 by JACQUE Fox. He was still having lower 70 edema and symptoms of claudication. Another duplex ultrasound/ did not show DVT. He has no chest pain. He gets some shortness of breath with exertion. He still gets the same symptoms of claudication with walking. In 2016 ABIs at rest and with exercise were normal. Update 05/09/2020: He is seen in follow-up. Says he has been having shortness of breath on exertion, relieved by rest. He does not have angina. He has bilateral lower extremity edema, and pain in the legs on walking. ABIs were performed in March 2020 and were within normal limits. He is known to have lower extremity venous insufficiency. He has no bleeding issues with anticoagulation therapy. His recent labs March 2020 showed normal renal function. His blood pressure has been elevated. Visit of 10/05/2020: He is seen in follow-up. After last visit and due to some symptoms of shortness of breath I checked an echocardiogram. This was done in July 2020 and was not revealing. He reports that he has been doing reasonably well with no chest pain. He has chronic shortness of breath on exertion. His main issue is arthritis and he has difficulty walking and ambulating. He describes himself as stiff. It is hard for him to bend his joints. Otherwise no palpitations. No bleeding on (more content not included)... [facility] 12-05-2022 Note Review of Systems All other systems reviewed and are negative. [facility] 12-05-2022 Note [place] Cardiology Consul t Note Reason for visit: Bradycardia/ Perm AF, s/p PPM placement 09/01/22 single chamber [employer] HPI: patient for routine follow-up s/p PPM placement 08/2022 due to bradycardia pacemaker site healed well when patient is out of the 6-week restriction window he has history of A-fib with slow VR and was bradycardic with pauses up to 4 seconds so patient was consented for elective PPM placement He had recent labs 11/20/2022 unremarkable CBC, sodium 140, K4.3, BUN 16, creatinine 0.94, GFR greater than 60, A1c 5.9 He had recent device check 09/24/2022 which showed normal device function and stable lead thresholds, had nonsustained arrhythmia noted on 09/02/2022 and 09/19/2022/total duration of 12 seconds 05/[address] wolf HPI: Desean Landry Jr. is a 82 y.o. year old with past medical history of permanent atrial fibrillation with a previous history of mechanical fall and subsequently having sustained a cervical spine fracture of the sixth cervical vertebra. He was previously seen by Dr. ALEXANDRE on a regular basis as outpatient. He has been known to have chronic atrial fibrillation with slow ventricular rate. A subsequent event monitor was placed which revealed evidence of underlying heart rate in the 30s and also nocturnal pauses up to 4 seconds. These pauses were noted between 4 AM and 5 AM in the morning. There was evidence of ventricular bigeminy with a total PVC count of approximately 5%. No sustained VT was seen. He is accompanied today by his power of cleat thrower. He is tolerating his DOAC with no issues. Event monitor: Chronic AF with pause of 4s nocturnal. ECG 11/30/2015 showed atrial fibrillation with controlled ventricular rate of 80 bpm. Echocardiogram 07/18/2020 11/23/2015: normal ventricular function, mild atrial dilatation, mild aortic regurgitation. Blood testing 11/20/2015: normal CBC, normal renal function. LDL 125. TG 189. PMH: No past medical history on file. PSH: No past surgical history on file. SH: Social Determinants of Health Tobacco Use: Medium Risk Smoking Tobacco Use: Former Smokeless Tobacco Use: Never Passive Exposure: Past Alcohol Use: Not At Risk Frequency of Alcohol Consumption: Never Average Number of Drinks: Patient does not drink Frequency of Binge Drinking: Never Financial Resource Strain: Low Risk Difficulty of Paying Living Expenses: Not hard at all Food Insecurity: No Food Insecurity Worried About Running Out of Food in the Last Year: Never true Ran Out of Food in the Last Year: Never true Transportation Needs: No Transportation Needs Lack of Transportation (Medical): No Lack of Transportation (Non-Medical): No Physical Activity: Insufficiently Active Days of Exercise per Week: 1 day Minutes of Exercise per Session: 10 min Stress: No Stress Concern Present Feeling of Stress : Not at all Social Connections: Moderately Integrated Frequency of Communication with Friends and Family: Once a week Frequency of Social Gatherings with Friends and Family: Twice a week Attends L[employer] Services: More than 4 times per year Active Member of Clubs or Organizations: Yes Attends Club or Organization Meetings: More than 4 times per year Marital Status: Intimate Partner Violence: Not At Risk Fear of Current or Ex-Partner: No Emotionally Abused: No Physically Abused: No Sexually Abused: No Depression: Not on file Housing Stability: Low Risk Unable to Pay for Housing in the Last Year: No Number of Places Lived in the Last Year: 1 Unstable Housing in the Last Year: No Allergies: No Known Allergies Weight: No results found for: PTWEIGHT Meds: Current Outpatient Medications on File Prior to Visit Medication Sig Dispense Refill apixaban (Eliquis) 5 mg tablet Take 1 tablet by mouth in the morning and at bedtime. cholecalciferol, vitamin D3, 50 mcg (2,000 unit) capsule Take 1 capsule by mouth in the morning. simvastatin (Zocor) 20 mg tablet Take 1 tablet by mouth at bedtime. spironolactone (Aldactone) 25 mg tablet Take 25 mg by mouth in the morning. benzonatate (Tessalon) 200 mg capsule Take 200 mg by mouth if needed in the morning, at noon, and at bedtime for cough. Do not crush or chew. hyoscyamine 0.125 mg dissolvable tablet Take 0.125 mg by mouth if needed in the morning, at noon, and at bedtime. No current facility-administered medications on file prior to visit. ROS: Cardio Basic Cardiovascular Symptoms: no lightheadedness, no leg edema, no syncope, no orthopnea, no PND, no claudication, Constitutional Constitutional: no fever, no night sweats, no significant weight gain, no significant weight loss, no exercise intolerance Eyes Eyes: no dry eyes, no irritation, no vision change ENMT Ears: no difficulty hearing, no ear pain Nose: no frequent nosebleeds, Mouth/Throat: no sore throat, no bleeding gums, no snorin (more content not included)... [facility] 09-10-2022 Note Patient seen for wou nd check s/p [employer] pacemaker placement on 09/01/2022 for AF with slow VR and bradycardia. Wound is clean, dry, intact, and well approximated. Discussed wound care including avoiding, rubbing, lotions, direct shower head pressure, caution with seat belt, as well as avoiding other irritants. No lifting heavy weights using arm on the same side. Do not lift elbow above the shoulder on the same side for 4-6 weeks. No driving for 3 weeks. Device check and follow-up appointment scheduled. He is not on antibiotics, procedure note recommendations noted for Doxycycline 100 mg BID for [address] Wolf, he recommends Docycycline 100 mg BID x7 days. Prescription sent. [facility] 09-02-2022 Note MICHELA spoke with julia homero COHEN Chasity Novoa who reports that patient has an aide who comes twice a week and a private pay nurse who comes once a week to set up his medications. Chasity reports that she will pick him up this evening and take him home. No further OTM concerns at this time. [facility] 09-02-2022 Note Social Work Roll Over Loader jaspreet et with patient to discuss dc planning. Patient reports that he is from home alone and lives in an apartments. Patient reports he has two steps to enter the home and 0 steps to enter the bedroom and bathroom. Patient reports that he has walker,cane and wheelchair but does not use it. Patient reports that he does not drive and his guardian takes him to appointment and patient reports he does have home health but never went to SNF. Patient anticipates to return home and has no concerns about returning home. No further OTM needs at this time. [facility] 09-01-2022 Note SINGLE CHAMBER PACEM JULIUS IMPLANT PROCEDURE NOTE DATE OF PROCEDURE: 09/01/2022 PERFORMING PHYSICIAN: Dr. Damian Wolf DIRECTOR OF RETAIL ANALYTICS: Dr.Chandramohan [place] CONSENT: Patient/POA LOCATION: EP Lab PROCEDURE PERFORMED: 1. Implantation of single chamber PPM ([employer]) 2. Ultrasound guided venous access INDICATIONS: 1. Afib with slow VR 2. Bradycardia with symptoms PROCEDURAL SEDATION: Versed and Fentanyl. Moderate sedation was administered by the sedation nurse under my supervision and noted in the CVL log. Intraprocedural face to face sedation time: 43min. Monitoring: Cardiac telemetry, Blood pressure, continuous pulse oxymetry. FLUOROSCOPY: 3min 51sec/10mGy EBL: 20cc SPECIMEN REMOVED: None PREPARATION: Patient was brought to the EP lab in the post absorptive state. A procedural pause was performed identifying the patient, the procedure to be performed and the site of implant. The left chest was prepped and draped in the usual sterile fashion. Preoperative antibiotics IV was administered. PROCEDURAL DETAILS: Patient was placed in trendelenberg position and ultrasound was used to analyze the course of the vessel. This revealed no axillary vein but a cephalic. I then gave contrast venography which confirmed a patent cephalic with no competitive filling in axillary vein. Left axillary venous access was obtained using modified seldinger technique using a 5 Urdu micropunture needle with ultrasound guidance with some difficulty. 0.35??? wire was placed. Local infiltration of 1% Lidocaine was performed, and an incision was created in the left upper chest with prior incision extended. Dissection was then performed using cautery down to the fascial plane above the muscle. Gentle dissection was performed, and a small pocket was made enough for the device. 6 Urdu Safe sheath was placed over the wire. An active fixation [employer] pacing lead was then delivered through the 6Fsheath to the right ventricle. After confirmation of lead position on orthogonal views (BELTRÁN and AZERI) to confirm septal position, the screw was activated, and the lead was placed in the right ventricular mid cavity towards the septum. After confirmation of good sensing parameters, injury pattern and pacing thresholds, 10V pacing was done and no diaphragmatic stimulation was noted. It was then secured in the pocket using three 1-0 silk sutures. A [employer] pacemaker generator was then burped with a socket wrench and the lead subsequently attached until it was visibly past the header srinath with secure positioning confirmed with tug testing. Pocket hemostasis was secured and irrigated with antibiotic solution. The leads were wrapped under the device and then placed in the pocket and the device was tackedto the underlying muscle with 1-0 Silk. The pocket was closed in 3 layers:subcutaneous layer using 2-0 Vicryl and skin using 3-0 monofilament absorbable suture. Glue was applied and steristrip occlusive dressing was placed on top. Lead parameters were then rechecked through the device as noted below. He was then returned to the post procedural observation room. No immediate procedural complications were noted. POST PROCEDURE EXAM: Patient was hemodynamically stable. COMPLICATIONS: None. IMPRESSION: 1. Successful single chamber pacemaker implantation with excellent pacing and sensing parameters. RECOMMENDATIONS: 1. Dressing to be removed after 1week. 2. Do not wet the incision for 7 days. 3. No lifting heavy weights using arm on the same side. 4. Do not lift elbow above the shoulder on the same side for 4-6 weeks. 5. No driving for 1 month. 6. F/u in device clinic 2 week from discharge or sooner for any concerns. 7. Chest Xray as outpatient after 24hrs. 8. Doxycycline 100mg bid x 2 week. Damian Wolf Cardiac Electrophysiology [facility] 09-01-2022 Note Patient: Desean crowley Jr. Procedure Information Date/Time: 09/01/22 1330 Procedure: Implant PPM Location: [facility] SOLID WASTE COLLECTOR 1 EP / [facility] (Cath) Providers: Damian Wolf MD Clinical information reviewed: Tobacco Allergies Meds Med Hx Surg Hx Fam Hx Physical Exam Airway Mallampati: II TM distance: >3 FB Neck ROM: full Cardiovascular Dental Pulmonary Abdominal Anesthesia Plan ASA 2 CSE Anesthetic plan and risks discussed with patient and healthcare power of cleat thrower. Use of blood products discussed with patient who. Additional Equipment Requests [facility] 06-18-2022 Note karen [facility] 06-10-2022 Note IN Cardiology Consul t Note Reason for visit: Bradycardia/ Perm AF HPI: Desean Landry Jr. is a 81 y.o. year old with past medical history of permanent atrial fibrillation with a previous history of mechanical fall and subsequently having sustained a cervical spine fracture of the sixth cervical vertebra. He was previously seen by Dr. ALEXANDRE on a regular basis as outpatient. He has been known to have chronic atrial fibrillation with slow ventricular rate. A subsequent event monitor was placed which revealed evidence of underlying heart rate in the 30s and also nocturnal pauses up to 4 seconds. These pauses were noted between 4 AM and 5 AM in the morning. There was evidence of ventricular bigeminy with a total PVC count of approximately 5%. No sustained VT was seen. He is accompanied today by his power of cleat thrower. He is tolerating his DOAC with no issues. Event monitor: Chronic AF with pause of 4s nocturnal. ECG 11/30/2015 showed atrial fibrillation with controlled ventricular rate of 80 bpm. Echocardiogram 07/18/2020 11/23/2015: normal ventricular function, mild atrial dilatation, mild aortic regurgitation. Blood testing 11/20/2015: normal CBC, normal renal function. LDL 125. TG 189. PMH: No past medical history on file. PSH: No past surgical history on file. SH: Social Determinants of Health Tobacco Use: Medium Risk Smoking Tobacco Use: Former Smokeless Tobacco Use: Never Passive Exposure: Past Alcohol Use: Not on file Financial Resource Strain: Not on file Food Insecurity: Not on file Transportation Needs: Not on file Physical Activity: Not on file Stress: Not on file Social Connections: Not on file Intimate Partner Violence: Not on file Depression: Not on file Housing Stability: Not on file Allergies: No Known Allergies Weight: No results found for: PTWEIGHT Meds: Current Outpatient Medications on File Prior to Visit Medication Sig Dispense Refill apixaban (Eliquis) 5 mg tablet Take 1 tablet by mouth in the morning and at bedtime. cholecalciferol, vitamin D3, 50 mcg (2,000 unit) capsule Take 1 capsule by mouth in the morning. gabapentin (Neurontin) 300 mg capsule Take 300 mg by mouth in the morning and 300 mg at noon and 300 mg in the evening. hyoscyamine 0.125 mg dissolvable tablet Take 0.125 mg by mouth if needed in the morning, at noon, and at bedtime. lisinopril 5 mg tablet Take 5 mg by mouth in the morning. metFORMIN (Glucophage) 500 mg tablet Take 500 mg by mouth in the morning and at bedtime. metoprolol tartrate (Lopressor) 25 mg tablet Take 25 mg by mouth in the morning and at bedtime. simvastatin (Zocor) 20 mg tablet Take 1 tablet by mouth at bedtime. spironolactone (Aldactone) 25 mg tablet Take 25 mg by mouth in the morning. True Metrix Glucose Test Strip strip USE 1 TEST STRIP TO TEST BLOOD SUGAR ONCE DAILY AND IF NEEDED TRUEplus Lancets 33 gauge misc use 1 LANCET to TEST BLOOD SUGAR once daily No current facility-administered medications on file prior to visit. ROS: Cardio Basic Cardiovascular Symptoms: no lightheadedness, no leg edema, no syncope, no orthopnea, no PND, no claudication, Constitutional Constitutional: no fever, no night sweats, no significant weight gain, no significant weight loss, no exercise intolerance Eyes Eyes: no dry eyes, no irritation, no vision change ENMT Ears: no difficulty hearing, no ear pain Nose: no frequent nosebleeds, Mouth/Throat: no sore throat, no bleeding gums, no snoring, no dry mouth, no mouth ulcers, no oral abnormalities, no teeth problems Respiratory Respiratory: no cough, no wheezing, no coughing up blood, no sleep apnea Musculoskeletal Musculoskeletal: no muscle aches, no muscle weakness, joint pain+, no back pain, no swelling in the extremities Integumentary Skin no rash, no ulcer, no varicosities, no discoloration, no pruritus Neurologic Neurologic: no loss of consciousness, no weakness, no numbness, no seizures, no dizziness, no headaches Psychiatric Psych: no depression, feeling safe in relationship, no alcohol abuse, Hematologic/Lymphatic Hematologic/Lymphatic no swollen glands, no bruising Physical Exam: Constitutional General Appearance: well-nourished, well-developed, appears stated age Level of Distress: comfortable Psychiatric Mental Status: alert, normal affect Orientation: oriented to time, place, and person Insight: good judgement Eyes Lids and Conjunctivae: non-injected, no xanthelasma ENMT Ears: no lesions on external ear Nose: no lesions on external nose Oropharynx: no cyanosis, no pallor Neck Neck: supple, trachea midline Carotid Arteries: bilateral normal upstroke, no bruits Jugular Veins: normal jugular venous pressure Thyroid: not enlarged Lungs Respiratory Effort: unlabored Chest Exam: normal curvature, no thoracic deformity Auscultation: clear, no wheezing, no rales, no rhonchi Cardiovascular Rate And Rhyth (more content not included)... [facility] 06-10-2022 Note Review of Systems Cardiovascular: Negative. [facility] 04-21-2022 Note Started on eliquis f or afib - he was in [facility] with C-spine fracture Subjective Desean Landry . is a 81 y.o. year old male patient being seen for Atrial Fibrillation and Hypertension Patient Active Problem List Diagnosis Longstanding persistent atrial fibrillation (CMS/HCC) Primary hypertension Peripheral venous insufficiency Family History Problem Relation Name Age of Onset Cancer Mother Social History Tobacco Use Smoking status: Former Types: Cigarettes Smokeless tobacco: Never HPI Mr Landry is seen in follow up. He is a 78 yo man with chronic AF on anticoagulation and rate control. Visit of 11/30/2015: He was referred from Dr Casiano's office for new onset atrial fibrillation. He is a 75 yo man who was undergoing a stress test for investigation of shortness of breath. He was found to have new onset atrial fibrillation. He was started on eliquis 5 mg twice daily. ECG 11/30/2015 showed atrial fibrillation with controlled ventricular rate of 80 bpm. Echocardiogram on 11/23/2015: normal ventricular function, mild atrial dilatation, mild aortic regurgitation. Stress test on 11/23/2015: normal ventricular function, fixed inferior defect (prior SD vs. artifact), normal wall motion, no ischemia. Blood testing 11/20/2015: normal CBC, normal renal function. LDL 125. TG 189. Visit of 06/05/2017: He denies chest pain. He has mild dyspnea on moderate exertion. He is currently taking aspirin 81 mg along with the eliquis. He is on metoprolol for rate control. He has claudication in the left leg. He says his left leg gets weak and he has to stop walking and rest before he can walk again. Apparently he has had these symptoms for a long time. In november of 2016 I checked ABIs and those were normal at rest and with exercise. Blood testing 12/03/2016: CBC ok, renal function and electrolytes within normal, TG 151, LDL 133, HDL 37, HbA1c 6.1%. He is ex-smoker, stopped 6 years ago. Update 07/08/2017: He was admitted recently to [facility] after falling and having rhabdomyolysis. He was hydrated. He did well. This was possibly related to deconditioning and he is getting physical therapy. He will be soon [facility] to [facility] from the [facility]. otherwise he has no issues. Update 02/04/2018: He is doing well. He will be getting cataract surgery. No chest pain. No dyspnea. No palpitations. No bleeding on eliquis. He does not take aspirin. He was previously investigated for leg cramps and ABIs were normal during rest and exercise. Update 07/26/2018: He is seen in follow up. He is doing well. He will be getting cataract surgery. No chest pain. No dyspnea. No palpitations. No bleeding on eliquis. He does not take aspirin. He was previously investigated for leg cramps and ABIs were normal during rest and exercise. He got cataract surgery in the left eye, possibly looking at the right eye. Update 03/14/2019: He is seen in follow-up. Since last visit he was admitted to the hospital with the episode of lower extremity cellulitis and was treated accordingly. Duplex ultrasound of the lower extremities did not show DVT. He was evaluated in clinic in January 2019 by JACQUE Fox. He was still having lower 70 edema and symptoms of claudication. Another duplex ultrasound/ did not show DVT. He has no chest pain. He gets some shortness of breath with exertion. He still gets the same symptoms of claudication with walking. In 2016 ABIs at rest and with exercise were normal. Update 05/09/2020: He is seen in follow-up. Says he has been having shortness of breath on exertion, relieved by rest. He does not have angina. He has bilateral lower extremity edema, and pain in the legs on walking. ABIs were performed in March 2020 and were within normal limits. He is known to have lower extremity venous insufficiency. He has no bleeding issues with anticoagulation therapy. His recent labs March 2020 showed normal renal function. His blood pressure has been elevated. Visit of 10/05/2020: He is seen in follow-up. After last visit and due to some symptoms of shortness of breath I checked an echocardiogram. This was done in July 2020 and was not revealing. He reports that he has been doing reasonably well with no chest pain. He has chronic shortness of breath on exertion. His main issue is arthritis and he has difficulty walking and ambulating. He describes himself as stiff. It is hard for him to bend his joints. Otherwise no palpitations. No bleeding on Eliquis. Echocardiogram 07/18/2020: Normal ventricular systolic function, mild aortic regurgitation, normal right-sided pressures, mild to moderate atrial dilatation, no pericardial effusion. Update 04/21/2022: He is seen in follow up. In 03/03/2022 he was admitted to [facility] after a mechanical fall and subsequent C-spine fracture (Closed nondisplaced fracture of sixth cervical vertebra). He also sustained a head lacerati (more content not included)... [facility] Summary Purpose Family History No Family History Records FoundNo Family History Records FoundNo Family History Records FoundNo Family History Records FoundNo Family History Records FoundNo Family History Records Found Advance Directives No Advanced Directives Records FoundNo Advanced Directives Records FoundNo Advanced Directives Records FoundNo Advanced Directives Records FoundNo Advanced Directives Records FoundNo Advanced Directives Records Found Additional Source Comments (unrecognized sect ion and content) No Status Records FoundNo Status Records FoundNo Status Records FoundNo Status Records FoundNo Status Records FoundNo Status Records Found INFORMATION SOURCE (unrecogn ized section and content) DATE CREATED AUTHOR 12/08/2017 [facility] DATE CREATED AUTHOR AUTHOR'S ORGANIZ ATION 05/18/2018 [facility] DATE CREATED AUTHOR AUTHOR'S ORGANIZ ATION 01/16/2021 [facility] DATE CREATED AUTHOR AUTHOR'S ORGANIZ ATION 06/06/2021 [facility] DATE CREATED AUTHOR AUTHOR'S ORGANIZ ATION 09/02/2022 [facility] DATE CREATED AUTHOR AUTHOR'S ORGANIZ ATION 02/19/2023 [facility] FOR RECORDS PERTAINING TO PATIENTS WHO ARE OR HAVE BEEN ENROLLED IN A CHEMICAL DEPENDENCY/SUBSTANCEABUSE PROGRAM, SOME INFORMATION MAY BE OMITTED. This clinical summary was aggregated from multiple sources. Caution should be exercised in using it in the provision of clinical care. This summary normalizes information from multiple sources, and as a consequence, information in this document may materially change the coding, format and clinical context of patient data. In addition, data may be omitted in some cases. CLINICAL DECISIONS SHOULD BE BASED ON THE PRIMARY CLINICAL RECORDS. [employer] provides no warranty or guarantee of the accuracy or completeness of information in this document.
[2023-08-19] MEDS: OXYCODONE HCL/ACETAMINOPHEN 5MG/325MG 1 TAB PO (14:34)
[2023-08-19] MEDS: ADACEL DIPH,PERTUSS(ACELL),TET VAC/PF 0.5 ML ADULT SYRINGE IM (14:35)
[2023-08-19] MEDS: METHOCARBAMOL 500 MG TABLET PO (14:35)
[2023-08-19] MEDS: BACITRACIN OINTMENT 28.4 GM TUBE 1 APPLIC TOPICAL (14:38)
== END 2023-08-19 16:24 | disposition home or self-care (01) ==
PROVIDERS: Emergency Provider Emergency Medicine; PCP Family Medicine
DX: S09.8XXA Other specified injuries of head, initial encounter (principal); S41.111A Laceration without foreign body of right upper arm, initial encounter; M54.50 Low back pain, unspecified; I25.10 Atherosclerotic heart disease of native coronary artery without angina pectoris; Z79.01 Long term (current) use of anticoagulants; S61.411A Laceration without foreign body of right hand, initial encounter; Z79.84 Long term (current) use of oral hypoglycemic drugs; Z87.891 Personal history of nicotine dependence; Z23 Encounter for immunization; W18.39XA Other fall on same level, initial encounter
CPT/HCPCS: 70450; 72125; 72131; 72192; 90471; 90715; 99285

== ENCOUNTER 2023-09-02 09:22 | Outpatient (OUT) | payer MEDICARE, MEDICAID, SELFPAY ==
--- NOTE | 2023-09-02 09:39 | XR_ITS ---
The [address] [address] Patient Name: DESEAN LANDRY MRN: [id number] date: 1940 Sex: M Assigned Patient Location: RAD Current Patient Location: RAD Accession/Order Number: [id number] Exam Date: 09/02/2023 09:47 Report Date: 09/02/2023 13:50 At the request of: DIOGENES CASIANO Procedure: XR sacrum coccyx min 2V EXAMINATION: XR lumbar spine 2-3V, XR sacrum coccyx min 2V HISTORY: lumbago with sciatica M54.40 COMPARISON: 08/19/2023 CT exam FINDINGS: BONES: Normal alignment of the lumbosacral spine with no acute fracture or spondylolisthesis. Moderate to severe diffuse degenerative spondylosis and facet osteoarthropathy most significant at L5-S1 DISC SPACES: Normal. No significant disc height narrowing, subluxation, or endplate abnormality. PARASPINOUS: Negative. No paraspinous abnormality is seen. OTHER: Vascular calcifications XR/XR sacrum coccyx min 2V IMPRESSION: Moderate to severe degenerative changes No acute abnormality Electronically authenticated by: TERE ARAMBULA Date: 09/02/2023 13:50
--- NOTE | 2023-09-02 09:39 | XR_ITS ---
The [address] [address] Patient Name: DESEAN LANDRY MRN: [id number] date: 1940 Sex: M Assigned Patient Location: [facility] Current Patient Location: [facility] Accession/Order Number: [id number] Exam Date: 09/02/2023 09:47 Report Date: 09/02/2023 13:50 At the request of: DIOGENES CASIANO Procedure: XR lumbar spine 2-3V EXAMINATION: XR lumbar spine 2-3V, XR sacrum coccyx min 2V HISTORY: lumbago with sciatica M54.40 COMPARISON: 08/19/2023 CT exam FINDINGS: BONES: Normal alignment of the lumbosacral spine with no acute fracture or spondylolisthesis. Moderate to severe diffuse degenerative spondylosis and facet osteoarthropathy most significant at L5-S1 DISC SPACES: Normal. No significant disc height narrowing, subluxation, or endplate abnormality. PARASPINOUS: Negative. No paraspinous abnormality is seen. OTHER: Vascular calcifications XR/XR lumbar spine 2-3V IMPRESSION: Moderate to severe degenerative changes No acute abnormality Electronically authenticated by: TERE ARAMBULA Date: 09/02/2023 13:50
--- OUTSIDE RECORDS SUMMARY | 2023-09-02 09:39 | XMS_ITS | CCD ---
Author Organization [facility] Care Team Providers Care Digital Learning Platforms Manager Name Role Phone ARPAN CAMACHO Unavailable Unavailable SAHRA GILMORE Unavailable Unavailable HOY, DIOGENES Unavailable Unavailable FEDERMAN, DIOGENES Unavailable Unavailable LORI, RENDELL Unavailable Unavailable LORI, RENDELL Unavailable Unavailable LOY MORAHEL (INSTRUCTIONAL SUPERVISOR) Unavailable Unavailable LORI, RENDELL Unavailable Unavailable LORI, RENDELL Unavailable Unavailable ROWLEY, CESAR Unavailable Unavailable ROWLEY, CESAR Unavailable Unavailable ROWLEY, CESAR Unavailable Unavailable ROWLEY, CESAR Unavailable Unavailable ROWLEY, CESAR Unavailable Unavailable ROWLEY, CESAR Unavailable Unavailable OH ., DR SHETTY Primary Care Unavailable HOY ., DR SHETTY Admitting Unavailable HOY ., DR SHETTY Attending Unavailable HOY ., DR SHETTY Consulting Unavailable HOY ., DR SHETTY Primary Care Unavailable HOY ., DR SHETTY Admitting Unavailable HOY ., DR SHETTY Attending Unavailable HOY ., DR SHETTY Consulting Unavailable BRAXTONY ., DR SHETTY Primary Care Unavailable DAMIAN WOLF Admitting Unavailable DAMIAN WOLF Attending Unavailable DAMIAN WOLF Consulting Unavailable DR SRINATH MCKEON Consulting Unavailable HOY ., DR SHETTY Primary Care Unavailable MITCHELL MEJIA Admitting Unavailable MITCHELL MEJIA Attending Unavailable MATTHEW CHADWICK Consulting Unavailable TRACEY KLINE Consulting Unavailable NISSA VIGIL Consulting Unavailable MITCHELL MEJIA Consulting Unavailable OH ., DR SHETTY Admitting Unavailable HOY ., DR SHETTY Attending Unavailable HOY ., DR SHETTY Consulting Unavailable BRAXTONY ., DR SHETTY Primary Care Unavailable HOY ., DR SHETTY Admitting Unavailable HOMartin ., DR SHETTY Attending Unavailable HOMartin ., DR SHETTY Consulting Unavailable OH ., DR SHETTY Primary Care Unavailable DAMIAN WOLF Referring Unavailable YMAH RUSSELL Attending Unavailable AYDE WAGONER Attending Unavailable DRAGAN PEPPER Attending Unavailable DAMIAN WOLF Admitting Unavailable HTU FENTON Attending Unavailable DAMIAN WOLF Referring Unavailable DAMIAN WOLF Referring Unavailable Problems Active Problems Problem Classification Problem [...] fibrillation; Translations: [Permanent atrial fibrillation] Onset: 06-05-2022 Past or Other Problems Problem Classification Problem Date Documented Da te Episodic/Chronic Cardiac dysrhythmias (6 sources) Bradycardia, unspecified; [...] Onset: 03-04-2022 Episodic Other aftercare (1 source) nursing home (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; Translations: [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) USE OF ANTICOAGULANTS] Onset: 06-13-2017 Episodic Other aftercare (1 source) nursing home (current) use of oral hypoglycemic drugs; Translations: [RESIDENTIAL USE ORAL HYPOGLYCEMIC DX] Onset: 03-04-2022 Episodic Other aftercare (1 source) Other 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 terminal operator (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) drug therapy; Translations: [OTH RESIDENTIAL CURRENT DRUG THERAPY] Onset: 03-04-2022 Episodic Other aftercare (2 sources) Encounter for other specified surgical aftercare; Translations: [Encounter for other specified surgical aftercare] Onset: 09-10-2022 Episodic Other connective tissue disease (3 sources) Rhabdomyolysis; Translations: [RHABDOMYOLYSIS] Onset: 06-13-2017 Episodic Other fractures (1 source) Unspecified displaced fracture of sixth cervical vertebra, initial encounter for closed fracture; Translations: [UNS DSPL FX 6TH CV INIT JAY FX] Onset: 03-04-2022 Episodic Other injuries and conditions due to external causes (3 sources) Unspecified injury of head, initial encounter; Translations: [UNSPECIFIED INJURY HEAD INITIAL ENC] Onset: 03-02-2022 Episodic Other upper respiratory disease (1 source) [...] Test Name Value Interpretation Reference Range Facility Orders Onlyon 08-19-2023 Orders Only [id number] Jordin Landry Jr. 1940 M Date Provider Department Center 08/19/2023 [facility] Whitaker Family History Problem Relation Age of Onset Cancer Mother Family Status - Relation Status Age at Mother Normal [facility] Office Visiton 02-18-2023 Follow-up visit [id number] Jordin Landry Jr. 1940 Provider Department Center 02/18/2023 Orquidea-DRAGAN PEPPER [facility] Family History Problem Relation Age of Onset Cancer Mother Family Status - Relation Status Age at Mother Level of Service:53691 [place] OFFICE/OUTPATIENT ESTABLISHED LOW MDM 20-29 MIN Reason for Visit and Comments: Follow-up [399008] - Pt is here f/U [facility] Office Visiton 12-05-2022 Follow-up visit [id number] Jordin Landry Jr. 1940 Provider Department Center 12/05/2022 Bradley-AYDE WAGONER [facility] Family History Problem Relation Age of Onset Cancer Mother Family Status - Relation Status Age at Mother Level of Service:20006 [facility] OFFICE/OUTPATIENT ESTABLISHED MOD MDM 30-39 MIN Reason for Visit and Comments: Follow-up [423667] - Pt is her for 3 month F/U [facility] Office Visiton 09-10-2022 Follow-up visit [id number] Jordin Landry Jr. 1940 [facility] Provider Department Center 09/10/2022 [id number] RUSSELL [facility] Family History Problem Relation Age of Onset Cancer Mother Family Status - Relation Status Age at Mother Level of Service:43910 [place] POSTOP FOLLOW UP VISIT RELATED TO ORIGINAL PX [facility] 30on 09-02-2022 30 The patient is Moder ately Unstable - Medium risk of patient condition declining or worsening The patient's goals for the shift include Pain Control The clinical goals for the shift include stable vs [facility] 30 The patient is Moder ately [...] S/S of infection Outcome: Progressing Flowsheets (Taken 09/01/2022 2130) Incisions, wounds, or drain sites healing without sign and symptoms of infection: TWICE DAILY: Assess and document skin integrity Normal [facility] DSon 09-02-2022 DS Admission Admitted 09/01/2022 [...] Hos Test Results Pending At Discharge none [facility] NURSNOTEon 09-02-2022 NURSNOTE AVS reviewed with nikole gordon and guardian Chasity. No questions or concerns at this time. AVS signed by guardian. Copy of AVS placed in bedside chart. [facility] NURSNOTE RN spoke to Chasity (guardian) in regards to DC orders. Chasity is able to pick patient up around 1700 today. Patient is aware. [facility] HPon 09-01-2022 [facility] Electrophysiology Consult Note Reason for visit: PPM [...] is accompanied today by his power of campaign advisor. He is tolerating his DOAC with no [...] Neck: suppl (more content not included)... Normal [facility] Electrophysiology Consult Note Reason for visit: [facility] HPI: Desean Landry JrHeather is a 81 y.o. year old with [...] is accompanied today by his power of campaign advisor. He is tolerating his DOAC with no [...] rhonchi Cardiovascular (more content not included)... Normal [facility] NURSNOTEon 09-01-2022 NURSNOTE CHG wipe prep done a nd iodine nasal swab prep done per protocol for PPM implant. Normal [facility] Orders Onlyon 09-01-2022 Orders Only [id number] Jordin Landry Ty Leggett 1940 M Date Provider Department Center 09/01/2022 RANCHO DENIS [facility] VASC LAB [facility] Family History Problem Relation Age of Onset Cancer Mother Family Status - Relation Status Age at Mother Normal [facility] CBC AUTO DIFFon 08-26-2022 BASO # 0.1 103/ul Normal 0.0-0.1 [facility] Comment on above: Performed By: #### CBC #### [facility] [address] [place] [address] Dr. Artem Rojas Basophils/100 WBC (Bld) 1.0 % Normal 0.2-2.0 [facility] Comment on above: Performed By: #### CBC #### [facility] [address] [place] [address] Dr. Artem Rojas EO # 0.2 103/ul Normal 0.0-0.7 [facility] Comment on above: Performed By: #### CBC #### [facility] [address] [place] [address] Dr. Artem Rojas Eosinophils/100 WBC (Bld) 2.0 % Normal 0.9-7.0 [facility] Comment on above: Performed By: #### CBC #### [facility] [address] [place] [address] Dr. Artem Rojas Erythrocyte distribution width (RBC) [Ratio] 13.1 % Normal 11.0-15.0 [facility] Comment on above: Performed By: #### CBC #### [facility] [address] [place] [address] Dr. Artem Rojas Hematocrit (Bld) [Volume fraction] 43.8 % Normal 42.0-54.0 [facility] Comment on above: Performed By: #### CBC #### [facility] [address] [place] [address] Dr. Artem Rojas Hemoglobin (Bld) [Mass/Vol] 14.5 g/dL Normal 14.0-18.0 [facility] Comment on above: Performed By: #### CBC #### [facility] [address] [place] [address] Dr. Artem Rojas IG # 0.07 10e3/ul Critically high 0.00-0.03 [facility] Comment on above: Performed By: #### CBC #### [facility] [address] [place] [address] Dr. Artem Rojas IG % 0.8 % Critically high 0.0-0.5 [facility] Comment on above: Performed By: #### CBC #### [facility] [address] [place] [address] Dr. Artem Rojas LYMPH # 1.8 103/ul Normal 1.2-3.8 [facility] Comment on above: Performed By: #### CBC #### [facility] [address] [place] [address] Dr. Artem Rojas Lymphocytes/100 WBC (Bld) 20.0 % Critically low 20.5-60.0 [facility] Comment on above: Performed By: #### CBC #### [facility] [address] [place] [address] Dr. Artem Rojas MANUAL DIFF REQ NO Normal [facility] Comment on above: Performed By: #### CBC #### [facility] [address] [place] [address] Dr. Artem Rojas MCH (RBC) [Entitic mass] 30.0 pg Normal 25.9-34.0 [facility] Comment on above: Performed By: #### CBC #### [facility] [address] [place] [address] Dr. Artem Rojas MCHC (RBC) [Mass/Vol] 33.1 g/dL Normal 29.9-35.2 [facility] Comment on above: Performed By: #### CBC #### [facility] [address] [place] [address] Dr. Artem Rojas MCV (RBC) [Entitic vol] 90.7 fL Normal 80.0-94.0 [facility] Comment on above: Performed By: #### CBC #### [facility] [address] [address] [address] Artem Rojas MONO # 0.8 103/ul Normal 0.3-0.8 [facility] Comment on above: Performed By: #### CBC #### [facility] [address] [address] [address] Artem Rojas Monocytes/100 WBC (Bld) 8.7 % Normal 1.7-12.0 [facility] Comment on above: Performed By: #### CBC #### [facility] [address] [place] [address] Dr. Artem Rojas NEUT # 6.1 103/ul Normal 1.4-6.5 [facility] Comment on above: Performed By: #### CBC #### [facility] [address] [place] [address] Dr. Artem Rojas Neutrophils/100 WBC (Bld) 67.5 % Normal 43.0-75.0 [facility] Comment on above: Performed By: #### CBC #### [facility] [address] [place] [address] Dr. Artem Rojas Platelet mean volume (Bld) [Entitic vol] 9.7 fL Normal 9.5-13.5 [facility] Comment on above: Performed By: #### CBC #### [facility] [address] [place] [address] Dr. Artem Rojas PLT 333 103/ul Normal 150-450 [facility] Comment on above: Performed By: #### CBC #### [facility] [address] [place] [address] Dr. Artem Rojas RBC 4.83 106/ul Normal 4.70-6.10 [facility] Comment on above: Performed By: #### CBC #### [facility] [address] [place] [address] Dr. Artem Rojas WBC 9.0 103/ul Normal 4.0-11.0 [facility] Comment on above: Performed By: #### CBC #### [facility] [address] [place] [address] Dr. Artem Rojas PROF CHEM 8 (BAS METB)on Anion gap [Moles/Vol] 9.4 mmol/L Normal [facility] Comment on above: Performed By: #### PTT, PT #### [facility] [address] [place] [address] Dr. Artem Rojas Calcium [Mass/Vol] 9.4 mg/dL Normal 8.5-10.1 [facility] Comment on above: Performed By: #### PTT, PT #### [facility] [address] [place] [address] Dr. Artem Rojas Chloride [Moles/Vol] 105 mmol/L Normal 98-107 [facility] Comment on above: Performed By: #### PTT, PT #### [facility] [address] [place] [address] Dr. Artem Rojas CO2 [Moles/Vol] 29.3 mmol/L Normal 21.0-32.0 [facility] Comment on above: Performed By: #### PTT, PT #### [facility] [address] [place] [address] Dr. Artem Rojas Creatinine [Mass/Vol] 1.06 mg/dL Normal 0.70-1.30 [facility] Comment on above: Performed By: #### PTT, PT #### [facility] [address] [place] [address] Dr. Artem Rojas EGFR-AF SWISS >60 Normal >=60 [facility] Comment on above: Performed By: #### PTT, PT #### [facility] [address] [place] [address] Dr. Artem Rojas EGFR-NON AF SWISS >60 Normal >=60 [facility] Comment on above: Performed By: #### PTT, PT #### [facility] [address] [place] [address] Dr. Artem Rojas Glucose [Mass/Vol] 125 mg/dL Critically high 74-106 [facility] Comment on above: Performed By: #### PTT, PT #### [facility] [address] [place], [place] [id number] Dr. Artem Rojas Potassium [Moles/Vol] 4.3 mmol/L Normal 3.5-5.1 [facility] Comment on above: Performed By: #### PTT, PT #### [facility] [address] [address] [address] Artem Rojas Sodium [Moles/Vol] 139 mmol/L Normal 136-145 [facility] Comment on above: Performed By: #### PTT, PT #### [facility] [address] [address] [address] Artem Rojas Urea nitrogen [Mass/Vol] 20.0 mg/dL Critically high 7.0-18.0 [facility] Comment on above: Performed By: #### PTT, PT #### [facility] [address] [address] [address] Artem Rojas Urea nitrogen/Creatin ine [Mass ratio] 18.9 mg/mg Normal [facility] Comment on above: Performed By: #### PTT, PT #### [facility] [address] [place] [address] Dr. Artem Rojas Orders Onlyon 08-25-2022 Orders Only [id number] Jordin Landry Jr. 1940 M Date Provider Department Center 08/25/2022 TROY RIBERA [facility] VAS LAB [facility] Family History Problem Relation Age of Onset Cancer Mother Family Status - Relation Status Age at Mother Normal [facility] Covid-19 PCR (CVDTB)on SARS-CoV-2 (COVID-19) RNA MONICA+probe Ql (Unsp spec) Not detected Normal NOT DETECTED [facility] Comment on above: Result Comment: When diagnostic [...] for this test is supported by the Child Care Development Specialist of Health and Human Service's declaration that [...] Performed By: #### P TT, PT #### [facility] [address] [place] [address] Dr. Artem Rojas INFLUENZA A AND B AGon 08-20 INFLUANEGH SEE BELOW Normal [facility] Comment on above: Result Comment: Negative for Flu A prote in angiten. Infection due to Flu A cannot be ruled out. Flu A angiten in the sample may be below the detection limit of the test. Performed By: #### P TT, PT #### [facility] [address] [place] [address] Dr. Artem Rojas INFLUBNEGH SEE BELOW Normal [facility] Comment on above: Result Comment: Negative for Flu B prote in antigen. Infection due to Flu B cannot be ruled out. Flu B antigen in the sample may be below the detection limit of the test. Performed By: #### P TT, PT #### [facility] [address] [place] [address] Dr. Artem Rojas INFLUENZA A AG Negative Normal NEGATIVE SEE COMMENT [facility] Comment on above: Performed By: #### PTT, PT #### [facility] [address] [place] [address] Dr. Artem Rojas INFLUENZA B AG Negative Normal NEGATIVE SEE COMMENT [facility] Comment on above: Performed By: #### PTT, PT #### [facility] [address] [place] [address] Dr. Artem Rojas INSULINon 07-31-2022 Insulin 16.3 uIU/mL Normal 2.6-24.9 [facility] Comment on above: Performed By: #### PTT, PT #### [facility] [address] [place] [address] Dr. Artem Rjoas BNPon 07-30-2022 Natriuretic peptide B (Bld) [Mass/Vol] 1826.0 pg/mL Critically high <=1,800.0 [facility] Comment on above: Performed By: #### CMP, BNP, URIC, TSH, T7, LIPID #### [facility] [address] [place] [address] Dr. Artem Rojas CBC AUTO DIFFon 07-30-2022 BASO # 0.1 103/ul Normal 0.0-0.1 [facility] Comment on above: Performed By: #### PTT, PT #### [facility] [address] [place] [address] Dr. Artem Rojas Basophils/100 WBC (Bld) 1.0 % Normal 0.2-2.0 [facility] Comment on above: Performed By: #### PTT, PT #### [facility] [address] [place] [address] Dr. Artem Rojas EO # 0.2 103/ul Normal 0.0-0.7 [facility] Comment on above: Performed By: #### PTT, PT #### [facility] [address] [place] [address] Dr. Artem Rojas Eosinophils/100 WBC (Bld) 2.4 % Normal 0.9-7.0 [facility] Comment on above: Performed By: #### PTT, PT #### [facility] [address] [place] [address] Dr. Artem Rojas Erythrocyte distribution width (RBC) [Ratio] 13.8 % Normal 11.0-15.0 [facility] Comment on above: Performed By: #### PTT, PT #### [facility] [address] [place] [address] Dr. Artem Rojas Hematocrit (Bld) [Volume fraction] 44.1 % Normal 42.0-54.0 [facility] Comment on above: Performed By: #### PTT, PT #### [facility] [address] [place] [address] Dr. Artem Rojas Hemoglobin (Bld) [Mass/Vol] 14.5 g/dL Normal 14.0-18.0 [facility] Comment on above: Performed By: #### PTT, PT #### [facility] [address] [place] [address] Dr. Artem Rojas IG # 0.02 10e3/ul Normal 0.00-0.03 [facility] Comment on above: Performed By: #### PTT, PT #### [facility] [address] [place] [address] Dr. Artem Rojas IG % 0.2 % Normal 0.0-0.5 [facility] Comment on above: Performed By: #### PTT, PT #### [facility] [address] [place] [address] Dr. Artem Rojas LYMPH # 2.1 103/ul Normal 1.2-3.8 [facility] Comment on above: Performed By: #### PTT, PT #### [facility] [address] [place] [address] Dr. Artem Rojas Lymphocytes/100 WBC (Bld) 24.3 % Normal 20.5-60.0 [facility] Comment on above: Performed By: #### PTT, PT #### [facility] [address] [place] [address] Dr. Artem Rojas MANUAL DIFF REQ NO Normal [facility] Comment on above: Performed By: #### PTT, PT #### [facility] [address] [place] [address] Dr. Artem Rojas MCH (RBC) [Entitic mass] 30.3 pg Normal 25.9-34.0 [facility] Comment on above: Performed By: #### PTT, PT #### [facility] [address] [place] [address] Dr. Artem Rojas MCHC (RBC) [Mass/Vol] 32.9 g/dL Normal 29.9-35.2 [facility] Comment on above: Performed By: #### PTT, PT #### [facility] [address] [place] [address] Dr. Artem Rojas MCV (RBC) [Entitic vol] 92.1 fL Normal 80.0-94.0 [facility] Comment on above: Performed By: #### PTT, PT #### [facility] [address] [place] [address] Dr. Artem Rojas MONO # 0.8 103/ul Normal 0.3-0.8 [facility] Comment on above: Performed By: #### PTT, PT #### [facility] [address] [place] [address] Dr. Artem Rojas Monocytes/100 WBC (Bld) 9.0 % Normal 1.7-12.0 [facility] Comment on above: Performed By: #### PTT, PT #### [facility] [address] [place] [address] Dr. Artem Rojas NEUT # 5.6 103/ul Normal 1.4-6.5 [facility] Comment on above: Performed By: #### PTT, PT #### [facility] [address] [place] [address] Dr. Artem Rojas Neutrophils/100 WBC (Bld) 63.1 % Normal 43.0-75.0 [facility] Comment on above: Performed By: #### PTT, PT #### [facility] [address] [place] [address] Dr. Artem Rojas Platelet mean volume (Bld) [Entitic vol] 10.0 fL Normal 9.5-13.5 [facility] Comment on above: Performed By: #### PTT, PT #### [facility] [address] [place] [address] Dr. Artem Rojas PLT 193 103/ul Normal 150-450 [facility] Comment on above: Performed By: #### PTT, PT #### [facility] [address] [place] [address] Dr. Artem Rojas RBC 4.79 106/ul Normal 4.70-6.10 [facility] Comment on above: Performed By: #### PTT, PT #### [facility] [address] [place] [address] Dr. Artem Rojas WBC 8.8 103/ul Normal 4.0-11.0 [facility] Comment on above: Performed By: #### PTT, PT #### [facility] [address] [place] [address] Dr. Artem Rojas FREE THYROXINE INDEX T7on FTI 2.52 Normal 1.30-4.50 [facility] Comment on above: Performed By: #### CMP, BNP, URIC, TSH, T7, LIPID #### [facility] [address] [place] [address] Dr. Artem Rojas T3U 35.0 % Normal 33.0-40.0 [facility] Comment on above: Performed By: #### CMP, BNP, URIC, TSH, T7, LIPID #### [facility] [address] [place] [address] Dr. Artem Rojas T4 [Mass/Vol] 7.20 ug/dL Normal 4.50-12.10 [facility] Comment on above: Performed By: #### CMP, BNP, URIC, TSH, T7, LIPID #### [facility] [address] [place] [address] Dr. Artem Rojas GLYCOHEMOGLOBIN A1Con 2022 ADA RECOMMENDATION SEE BELOW Normal [facility] Comment on above: Result Comment: ADA RECOMMENDED LIMIT 4. 0 - 6.0 ADA THERAPEUTIC TARGET < 7.0 ACTION SUGGESTED > 7.0 Performed By: #### A 1C #### [facility] [address] [place] [address] Dr. Artem Rojas Glucose [Mass/Vol] 128 mg/dL Normal [facility] Comment on above: Performed By: #### A1C #### [facility] [address] [place] [address] Dr. Artem Rojas HbA1c (Bld) [Mass fraction] 6.1 % Normal 4.5-6.2 [facility] Comment on above: Performed By: #### A1C #### [facility] [address] [place] [address] Dr. Artem Rojas LIPID PROFILEon 07-30-2022 CHOL-HDL RATIO NORM SEE BELOW Normal [facility] Comment on above: Result Comment: 3.3 - 4.4 LOW RISK 4.4 - 7.1 AVERAGE RISK 7.1 - 11.0 MODERATE RISK >11.0 HIGH RISK Performed By: #### C MP, BNP, URIC, TSH, T7, LIPID #### [facility] [address] [address] [address] Artem Rojas Cholesterol [Mass/Vol] 157 mg/dL Normal <=200 [facility] Comment on above: Performed By: #### CMP, BNP, URIC, TSH, T7, LIPID #### [facility] [address] [address] [address] Artem Rojas Cholesterol in HDL [Mass/Vol] 51 mg/dL Normal 40-60 [facility] Comment on above: Performed By: #### CMP, BNP, URIC, TSH, T7, LIPID #### [facility] [address] [address] [address] Artem Rojas Cholesterol in LDL [Mass/Vol] 86.6 mg/dL Normal [facility] [facility] Comment on above: Performed By: #### CMP, BNP, URIC, TSH, T7, LIPID #### [facility] [address] [address] [address] Artem Rojas Cholesterol.tota l/Cholesterol in HDL [Mass ratio] 3.1 {ratio} Normal [facility] Comment on above: Performed By: #### CMP, BNP, URIC, TSH, T7, LIPID #### [facility] [address] [address] [address] Artem Rojas HDL NORMAL > or = 60 mg/dl - LO W CARDIOVASCULAR RISK <40 mg/dl - HIGH CARDIOVASCULAR RISK Normal [facility] Comment on above: Performed By: #### CMP, BNP, URIC, TSH, T7, LIPID #### [facility] [address] [address] [address] Artem Rojas LDL CALC NORMAL SEE BELOW Normal [facility] Comment on above: Result Comment: <100 mg/dl OPTIMAL 100 - 129 mg/dl NEAR OR ABOVE OPTIMAL 130 - 159 mg/dl BORDERLINE HIGH 160 - 189 mg/dl HIGH >190 mg/dl VERY HIGH Performed By: #### C MP, BNP, URIC, TSH, T7, LIPID #### [facility] [address] [address] [address] Artem Rojas Triglyceride [Mass/Vol] 97 mg/dL Normal <=150 [facility] Comment on above: Performed By: #### CMP, BNP, URIC, TSH, T7, LIPID #### [facility] [address] [address] [address] Artem Rojas VLDL CALC 19.4 mg/dL Normal [facility] Comment on above: Performed By: #### CMP, BNP, URIC, TSH, T7, LIPID #### [facility] [address] [address] [address] Artem Rojas PROF 14(COMP METB)on 023 Albumin [Mass/Vol] 3.5 g/dL Normal 3.4-5.0 [facility] Comment on above: Performed By: #### CMP, BNP, URIC, TSH, T7, LIPID #### [facility] [address] [place] [address] Dr. Artem Rojas Albumin/Globulin [Mass ratio] 1.1 {ratio} Normal [facility] Comment on above: Performed By: #### CMP, BNP, URIC, TSH, T7, LIPID #### [facility] [address] [place] [address] Dr. Artem Rojas ALP [Catalytic activity/Vol] 70 U/L Normal 46-116 [facility] Comment on above: Performed By: #### CMP, BNP, URIC, TSH, T7, LIPID #### [facility] [address] [place] [address] Dr. Artem Rojas ALT [Catalytic activity/Vol] 19 U/L Normal 16-63 [facility] Comment on above: Performed By: #### CMP, BNP, URIC, TSH, T7, LIPID #### [facility] [address] [place] [address] Dr. Artem Rojas Anion gap [Moles/Vol] 11.7 mmol/L Normal [facility] Comment on above: Performed By: #### CMP, BNP, URIC, TSH, T7, LIPID #### [facility] [address] [place] [address] Dr. Artem Rojas AST [Catalytic activity/Vol] 18 U/L Normal 15-37 [facility] Comment on above: Performed By: #### CMP, BNP, URIC, TSH, T7, LIPID #### [facility] [address] [place] [address] Dr. Artem Rojas Bilirubin [Mass/Vol] 0.5 mg/dL Normal 0.2-1.0 [facility] Comment on above: Performed By: #### CMP, BNP, URIC, TSH, T7, LIPID #### [facility] [address] [place] [address] Dr. Artem Rojas Calcium [Mass/Vol] 9.3 mg/dL Normal 8.5-10.1 [facility] Comment on above: Performed By: #### CMP, BNP, URIC, TSH, T7, LIPID #### [facility] [address] [place] [address] Dr. Artem Rojas Chloride [Moles/Vol] 105 mmol/L Normal 98-107 [facility] Comment on above: Performed By: #### CMP, BNP, URIC, TSH, T7, LIPID #### [facility] [address] [place] [address] Dr. Artem Rojas CO2 [Moles/Vol] 29.7 mmol/L Normal 21.0-32.0 [facility] Comment on above: Performed By: #### CMP, BNP, URIC, TSH, T7, LIPID #### [facility] [address] [place] [address] Dr. Artem Rojas Creatinine [Mass/Vol] 0.87 mg/dL Normal 0.70-1.30 [facility] Comment on above: Performed By: #### CMP, BNP, URIC, TSH, T7, LIPID #### [facility] [address] [place] [address] Dr. Artem Rojas EGFR-AF SWISS >60 Normal >=60 [facility] Comment on above: Performed By: #### CMP, BNP, URIC, TSH, T7, LIPID #### [facility] [address] [place] [address] Dr. Artem Rojas EGFR-NON AF SWISS >60 Normal >=60 [facility] Comment on above: Performed By: #### CMP, BNP, URIC, TSH, T7, LIPID #### [facility] [address] [place] [address] Dr. Artem Rojas Globulin (S) [Mass/Vol] 3.3 g/dL Normal [facility] Comment on above: Performed By: #### CMP, BNP, URIC, TSH, T7, LIPID #### [facility] [address] [place] [address] Dr. Artem Rojas Glucose [Mass/Vol] 118 mg/dL Critically high 74-106 [facility] Comment on above: Performed By: #### CMP, BNP, URIC, TSH, T7, LIPID #### [facility] [address] [place] [address] Dr. Artem Rojas Potassium [Moles/Vol] 4.4 mmol/L Normal 3.5-5.1 [facility] Comment on above: Performed By: #### CMP, BNP, URIC, TSH, T7, LIPID #### [facility] [address] [place] [address] Dr. Artem Rojas Protein [Mass/Vol] 6.8 g/dL Normal 6.4-8.2 [facility] Comment on above: Performed By: #### CMP, BNP, URIC, TSH, T7, LIPID #### [facility] [address] [place] [address] Dr. Artem Rojas Sodium [Moles/Vol] 142 mmol/L Normal 136-145 [facility] Comment on above: Performed By: #### CMP, BNP, URIC, TSH, T7, LIPID #### [facility] [address] [place] [address] Dr. Artem Rojas Urea nitrogen [Mass/Vol] 19.0 mg/dL Critically high 7.0-18.0 [facility] Comment on above: Performed By: #### CMP, BNP, URIC, TSH, T7, LIPID #### [facility] [address] [place] [address] Dr. Artem Rojas Urea nitrogen/Creatin ine [Mass ratio] 21.8 mg/mg Normal [facility] Comment on above: Performed By: #### CMP, BNP, URIC, TSH, T7, LIPID #### [facility] [address] [place] [address] Dr. Artem Rojas TSHon 07-30-2022 TSH 1.773 uIU/mL Normal 0.358-3.740 [facility] Comment on above: Performed By: #### CMP, BNP, URIC, TSH, T7, LIPID #### [facility] [address] [place] [address] Dr. Artem Rojas URIC ACID SERUMon 07-30-2022 Urate [Mass/Vol] 5.8 mg/dL Normal 3.5-7.2 [facility] Comment on above: Performed By: #### CMP, BNP, URIC, TSH, T7, LIPID #### [facility] [address] [place] [address] Dr. Artem Rojas VITAMIN D 25 OHon 07-30-2022 VIT D 25-OH 65.5 ng/mL Normal [facility] Comment on above: Performed By: #### PTT, PT #### [facility] [address] [place] [address] Dr. Artem Rojas VIT D RANGES SEE BELOW Normal [facility] Comment on above: Result Comment: <20 ng/mL Vit D deficien t 20 - <30 ng/mL Vit D insufficient 30 - 100 ng/mL Vit D sufficient >100 ng/mL Potential Toxicity Performed By: #### P TT, PT #### [facility] [address] [place] [address] Dr. Artem Rojas CBC AUTO DIFFon 03-02-2022 BASO # 0.1 103/ul Normal 0.0-0.1 [facility] Comment on above: Performed By: #### PTT, PT #### [facility] [address] [place] [address] Dr. Artem Rojas Basophils/100 WBC (Bld) 0.5 % Normal 0.2-2.0 [facility] Comment on above: Performed By: #### PTT, PT #### [facility] [address] [place] [address] Dr. Artem Rojas EO # 0.0 103/ul Normal 0.0-0.7 [facility] Comment on above: Performed By: #### PTT, PT #### [facility] [address] [place] [address] Dr. Artem Rojas Eosinophils/100 WBC (Bld) 0.1 % Critically low 0.9-7.0 [facility] Comment on above: Performed By: #### PTT, PT #### [facility] [address] [place] [address] Dr. Artem Rojas Erythrocyte distribution width (RBC) [Ratio] 12.9 % Normal 11.0-15.0 [facility] Comment on above: Performed By: #### PTT, PT #### [facility] [address] [place] [address] Dr. Artem Rojas Hematocrit (Bld) [Volume fraction] 39.7 % Critically low 42.0-54.0 [facility] Comment on above: Performed By: #### PTT, PT #### [facility] [address] [place] [address] Dr. Artem Rojas Hemoglobin (Bld) [Mass/Vol] 13.1 g/dL Critically low 14.0-18.0 [facility] Comment on above: Performed By: #### PTT, PT #### [facility] [address] [place] [address] Dr. Artem Rojas IG # 0.05 10e3/ul Critically high 0.00-0.03 [facility] Comment on above: Performed By: #### PTT, PT #### [facility] [address] [place] [address] Dr. Artem Rojas IG % 0.4 % Normal 0.0-0.5 [facility] Comment on above: Performed By: #### PTT, PT #### [facility] [address] [place] [address] Dr. Artem Rojas LYMPH # 0.8 103/ul Critically low 1.2-3.8 [facility] Comment on above: Performed By: #### PTT, PT #### [facility] [address] [place] [address] Dr. Artem Rojas Lymphocytes/100 WBC (Bld) 5.7 % Critically low 20.5-60.0 [facility] Comment on above: Performed By: #### PTT, PT #### [facility] [address] [place] [address] Dr. Artem Rojas MANUAL DIFF REQ NO Normal [facility] Comment on above: Performed By: #### PTT, PT #### [facility] [address] [place] [address] Dr. Artem Rojas MCH (RBC) [Entitic mass] 31.5 pg Normal 25.9-34.0 [facility] Comment on above: Performed By: #### PTT, PT #### [facility] [address] [place] [address] Dr. Artem Rojas MCHC (RBC) [Mass/Vol] 33.0 g/dL Normal 29.9-35.2 [facility] Comment on above: Performed By: #### PTT, PT #### [facility] [address] [place] [address] Dr. Artem Rojas MCV (RBC) [Entitic vol] 95.4 fL Critically high 80.0-94.0 [facility] Comment on above: Performed By: #### PTT, PT #### [facility] [address] [place] [address] Dr. Artem Rojas MONO # 1.0 103/ul Critically high 0.3-0.8 [facility] Comment on above: Performed By: #### PTT, PT #### [facility] [address] [place] [address] Dr. Artem Rojas Monocytes/100 WBC (Bld) 7.4 % Normal 1.7-12.0 [facility] Comment on above: Performed By: #### PTT, PT #### [facility] [address] [place] [address] Dr. Artem Rojas NEUT # 11.4 103/ul Critically high 1.4-6.5 [facility] Comment on above: Performed By: #### PTT, PT #### [facility] [address] [place] [address] Dr. Artem Rojas Neutrophils/100 WBC (Bld) 85.9 % Critically high 43.0-75.0 [facility] Comment on above: Performed By: #### PTT, PT #### [facility] [address] [address] [address] Artem Rojas Platelet mean volume (Bld) [Entitic vol] 10.8 fL Normal 9.5-13.5 [facility] Comment on above: Performed By: #### PTT, PT #### [facility] [address] [address] [address] Artem Rojas PLT 164 103/ul Normal 150-450 [facility] Comment on above: Performed By: #### PTT, PT #### [facility] [address] [address] [address] Artem Rojas RBC 4.16 106/ul Critically low 4.70-6.10 [facility] Comment on above: Performed By: #### PTT, PT #### [facility] [address] [address] [address] Artem Rojas WBC 13.2 103/ul Critically high 4.0-11.0 [facility] Comment on above: Performed By: #### PTT, PT #### [facility] [address] [address] [address] CSPINE WO CONon [...] Critical results were called by Dr. Gavin Arias MD to Dr. Fatima At 03/02/2022 5:51 PM EDT. Electronically authenticated by: WILLIAM ARIAS Date: 2022-03-02 17:51 Normal [facility] CT HEAD WO CONon 03-02-2022 CT HEAD [...] NISSA VIGIL Date: 2022-03-02 17:40 Normal [facility]13 SARS-CoV-2 (COVID-19) RNA MONICA+probe Ql (Unsp spec) Not detected Normal NOT DETECTED [facility] Comment on above: Result Comment: When diagnostic [...] for this test is supported by the Child Care Development Specialist of Health and Human Service's declaration that [...] Performed By: #### P TT, PT #### [facility] [address] [place] [address] Dr. Artem Rojas GASTROCCULTon 03-02-2022 GASTROCCULT Positive Abnormal NEGATIVE [facility] Comment on above: Performed By: #### PTT, PT #### [facility] [address] [place] [address] Dr. Artem Rojas PH GASTRIC 2 Normal [facility] Comment on above: Performed By: #### PTT, PT #### [facility] [address] [place] [address] Dr. Artem Rojas PROF 14(COMP METB)on 022 Albumin [Mass/Vol] 3.6 g/dL Normal 3.4-5.0 [facility] Comment on above: Performed By: #### PTT, PT #### [facility] [address] [place] [address] Dr. Artem Rojas Albumin/Globulin [Mass ratio] 1.3 {ratio} Normal [facility] Comment on above: Performed By: #### PTT, PT #### [facility] [address] [place] [address] Dr. Artem Rojas ALP [Catalytic activity/Vol] 65 U/L Normal 46-116 [facility] Comment on above: Performed By: #### PTT, PT #### [facility] [address] [address] [address] Artem Rojas ALT [Catalytic activity/Vol] 12 U/L Critically low 16-63 [facility] Comment on above: Performed By: #### PTT, PT #### [facility] [address] [address] [address] Artem Rojas Anion gap [Moles/Vol] 12.8 mmol/L Normal [facility] Comment on above: Performed By: #### PTT, PT #### [facility] [address] [address] [address] Artem Rojas AST [Catalytic activity/Vol] 15 U/L Normal 15-37 [facility] Comment on above: Performed By: #### PTT, PT #### [facility] [address] [address] [address] Artem Rojas Bilirubin [Mass/Vol] 1.1 mg/dL Critically high 0.2-1.0 [facility] Comment on above: Performed By: #### PTT, PT #### [facility] [address] [address] [address] Artem Rojas Calcium [Mass/Vol] 9.0 mg/dL Normal 8.5-10.1 [facility] Comment on above: Performed By: #### PTT, PT #### [facility] [address] [address] [address] Artem Rojas Chloride [Moles/Vol] 104 mmol/L Normal 98-107 [facility] Comment on above: Performed By: #### PTT, PT #### [facility] [address] [address] [address] Artem Rojas CO2 [Moles/Vol] 25.8 mmol/L Normal 21.0-32.0 [facility] Comment on above: Performed By: #### PTT, PT #### [facility] [address] [address] [address] Artem Rojas Creatinine [Mass/Vol] 1.06 mg/dL Normal 0.70-1.30 [facility] Comment on above: Performed By: #### PTT, PT #### [facility] [address] [place] [address] Dr. Artem Rojas EGFR-AF SWISS >60 Normal >=60 [facility] Comment on above: Performed By: #### PTT, PT #### [facility] [address] [place] [address] Dr. Artem Rojas EGFR-NON AF SWISS >60 Normal >=60 [facility] Comment on above: Performed By: #### PTT, PT #### [facility] [address] [place] [address] Dr. Artem Rojas Globulin (S) [Mass/Vol] 2.8 g/dL Normal [facility] Comment on above: Performed By: #### PTT, PT #### [facility] [address] [place] [address] Dr. Artem Rojas Glucose [Mass/Vol] 104 mg/dL Normal 74-106 [facility] Comment on above: Performed By: #### PTT, PT #### [facility] [address] [place] [address] Dr. Artem Rojas Potassium [Moles/Vol] 4.6 mmol/L Normal 3.5-5.1 [facility] Comment on above: Performed By: #### PTT, PT #### [facility] [address] [place] [address] Dr. Artem Rojas Protein [Mass/Vol] 6.4 g/dL Normal 6.4-8.2 [facility] Comment on above: Performed By: #### PTT, PT #### [facility] [address] [place] [address] Dr. Artem Rojas Sodium [Moles/Vol] 138 mmol/L Normal 136-145 [facility] Comment on above: Performed By: #### PTT, PT #### [facility] [address] [place] [address] Dr. Artem Rojas Urea nitrogen [Mass/Vol] 13.0 mg/dL Normal 7.0-18.0 [facility] Comment on above: Performed By: #### PTT, PT #### [facility] [address] [place] [address] Dr. Artem Rojas Urea nitrogen/Creatin ine [Mass ratio] 12.3 mg/mg Normal [facility] Comment on above: Performed By: #### PTT, PT #### [facility] [address] [place] [address] Dr. Artem Rojas PROTIMEon 03-02-2022 INR Coag (PPP) [Relative time] 1.23 {INR} Normal [facility] Comment on above: Performed By: #### PTT, PT #### [facility] [address] [place] [address] Dr. Artem Rojas INR GUIDELINES SEE BELOW Normal [facility] Comment on above: Result Comment: DESIRED INR: 2.0 - 3.0 C ONDITIONS NOT LISTED BELOW 2.5 - 3.5 FOR PROSTHETIC HEART VALVE REPLACEMENT 2.5 - 3.5 RECURRENT THROMBOSIS Performed By: #### P TT, PT #### [facility] [address] [place] [address] Dr. Artem Rojas PT Coag (PPP) [Time] 13.1 s Critically high 9.0-11.6 [facility] Comment on above: Performed By: #### PTT, PT #### [facility] [address] [place] [address] Dr. Artem Rojas PTTon 03-02-2022 aPTT Coag (Bld) [Time] 28.5 s Normal 22.3-36.2 [facility] Comment on above: Performed By: #### PTT, PT #### [facility] [address] [place] [address] Dr. Artem Rojas XR KNEE RT 1_2 [...] MATTHEW CHADWICK Date: 2022-03-02 20:49 Normal [facility] OVA AND PARASITE EXAMINATION on 01-18-2022 Ova + Parasite Exam Final report Normal [facility] Comment on above: Result Comment: These results were obtai ricardo using wet preparation(s) and trichrome stained smear. This test does not include testing for Cryptosporidium parvum, Cyclospora, or Microsporidia. Performed By: #### P TT, PT #### [facility] [address] [place] [address] Dr. Artem Rojas Result 1 Comment Normal [facility] Comment on above: Result Comment: No ova, cysts, or parasi alise seen. . One negative specimen does not rule out the possibility of a parasitic infection. Performed By: #### P TT, PT #### [facility] [address] [place] [address] Dr. Artem Rojas GI PANEL (PCR)on 01-14-2022 Adenovirus F 40/41 Not detected Normal NOT DETECTED [facility] Comment on above: Performed By: #### PTT, PT #### [facility] [address] [place] [address] Dr. Artem Rojas Astrovirus Not detected Normal NOT DETECTED [facility] Comment on above: Performed By: #### PTT, PT #### [facility] [address] [place] [address] Dr. Artem Rojas C. Diff toxin A/B Not detected Normal NOT DETECTED [facility] Comment on above: Performed By: #### PTT, PT #### [facility] [address] [place] [address] Dr. Artem Rojas Campylobacter Not detected Normal NOT DETECTED [facility] Comment on above: Performed By: #### PTT, PT #### [facility] [address] [place] [address] Dr. Artem Rojas Cryptosporidium Not detected Normal NOT DETECTED [facility] Comment on above: Performed By: #### PTT, PT #### [facility] [address] [place] [address] Dr. Artem Rojas Cyclos. Cayetanensis Not detected Normal NOT DETECTED [facility] Comment on above: Performed By: #### PTT, PT #### [facility] [address] [place] [address] Dr. Artem Rojas E. Coli O157 Not Applicable Normal Not Applicable [facility] Comment on above: Performed By: #### PTT, PT #### [facility] [address] [place] [address] Dr. Artem Rojas E. histolytica Not detected Normal NOT DETECTED [facility] Comment on above: Performed By: #### PTT, PT #### [facility] [address] [place] [address] Dr. Artem Rojas EAEC Not detected Normal NOT DETECTED [facility] Comment on above: Performed By: #### PTT, PT #### [facility] [address] [place] [address] Dr. Artem Rojas EIEC Not detected Normal NOT DETECTED [facility] Comment on above: Performed By: #### PTT, PT #### [facility] [address] [place] [address] Dr. Artem Rojas EPEC Not detected Normal NOT DETECTED [facility] Comment on above: Performed By: #### PTT, PT #### [facility] [address] [place] [address] Dr. Artem Rojas ETEC Not detected Normal NOT DETECTED [facility] Comment on above: Performed By: #### PTT, PT #### [facility] [address] [place] [address] Dr. Artem Rojas G. Lamblia Not detected Normal NOT DETECTED [facility] Comment on above: Performed By: #### PTT, PT #### [facility] [address] [place] [address] Dr. Artem TSE CONTROLS PASSED Normal [facility] Comment on above: Performed By: #### PTT, PT #### [facility] [address] [place] [address] Dr. Artem DAVIS TIA HEADER GI PANEL BACTERIA Normal T [facility] Comment on above: Performed By: #### PTT, PT #### [facility] [address] [address] [address] Artem ARELLANO ECOLI GI PANEL DIARRHEAGEN IC E.COLI / SHIGELLA Normal [facility] Comment on above: Performed By: #### PTT, PT #### [facility] [address] [address] [address] Artem ARELLANO INFO SEE BELOW Normal [facility] Comment on above: Result Comment: EAEC- Enteroaggregative E. Coli EPEC- Enteropathogenic E. Coli ETEC- Enterotoxigenic E. Coli lt/st STEC- Shigella-like toxin-producing E. Coli stx1/stx2 EIEC- Shigella/Enteroinvasive E. Coli Performed By: #### P TT, PT #### [facility] [address] [place] [address] Dr. Artem ARELLANO PARASITES GI PANEL PARASITES Normal [facility] Comment on above: Performed By: #### PTT, PT #### [facility] [address] [place] [address] Dr. Artem ARELLANO VIRUS GI PANEL VIRUSES Normal [facility] Comment on above: Performed By: #### PTT, PT #### [facility] [address] [place] [address] Dr. Artem Rojas Norovirus GI/GII Not detected Normal NOT DETECTED [facility] Comment on above: Performed By: #### PTT, PT #### [facility] [address] [place] [address] Dr. Artem Rojas P. Shigelloides Not detected Normal NOT DETECTED [facility] Comment on above: Performed By: #### PTT, PT #### [facility] [address] [address] [address] Artem Rojas Rotavirus A Not detected Normal NOT DETECTED [facility] Comment on above: Performed By: #### PTT, PT #### [facility] [address] [place], [place] [address] Dr. Artem Rojas Salmonella Not detected Normal NOT DETECTED [facility] Comment on above: Performed By: #### PTT, PT #### [facility] [address] [place] [address] Dr. Artem Rojas Sapovirus Not detected Normal NOT DETECTED [facility] Comment on above: Performed By: #### PTT, PT #### [facility] [address] [place] [address] Dr. Artem Rojas STEC Not detected Normal NOT DETECTED [facility] Comment on above: Performed By: #### PTT, PT #### [facility] [address] [place] [address] Dr. Artem Rojas Vibrio Not detected Normal NOT DETECTED [facility] Comment on above: Performed By: #### PTT, PT #### [facility] [address] [place] [address] Dr. Artem Rojas Vibrio Cholera Not detected Normal NOT DETECTED [facility] Comment on above: Performed By: #### PTT, PT #### [facility] [address] [place] [address] Dr. Artem Rojas Y. Enterocolitica Not detected Normal NOT DETECTED [facility] Comment on above: Performed By: #### PTT, PT #### [facility] [address] [place] [address] Dr. Artem Rojas Consultation Noteon 06-03-20 Consultation Note [id number]#1.00CD:127 Normal [facility] RAD - MISCon 06-03-2021 [facility] MIS [id number]#1.00CD:127 Normal [facility] Glucose Poct Glucometerson 0 01-10-2021 Glucose [Mass/Vol] 108 mg/dL Normal [facility] Comment on above: Result Comment: Random Glucose Reference Range is dependent on time and content of last meal. Glucose of more than 200 mg/dL in a nonstressed, ambulatory subject supports the diagnosis of Diabetes Mellitus. PERFORMED BY: [facility] [place] [address] PATHOLOGIST MANAGER OF APPLICATION DEVELOPMENT SARY APARICIO M.D. Performed By: #### G LULS #### Point of Care testing , [place] 01-10-2021 L Specimen: [id number] Received: 01/10/21 Status: WILFREDO Mckeon Num: [id number] Spec Type: Surgical Subm Dr: Shane Snell MD Tissues: A Colon - Polyp (CECUM) B Colon - Polyp (SIGMOID) Procedures: HE Stain/4, Gross/Micro L4/2 Patient Age/Sex Location Account Attending Physician Desean Landry JR /[facility] [id number] Shane Snell MD SPEC NUM: [id number] RECD: 01/10/21 STATUS: WILFREDO MCKEON NUM: [id number] MICAH: 01/10/21- SUBM DR: Shane Snell MD ENTERED: 01/10/[address] [facility] [address]: SPEC TYPE: Surgical DEPT: S [facility] BY: [id number] ORDERED: HE Stain/4, Gross/Micro L4/2 ORDERED: HE [...] Entirely submitted in one cassette labeled A1. (/J) B. Received in formalin labeled with the patient's name, number and sigmoid polyp are 2 sprague tissue fragments, 0.3 cm each. Entirely submitted in one cassette labeled B1. (/YJ) Microscopic Description A. Two glass slides with H E stained material have been examined. The microscopic findings support the above pathologic diagnosis. B. Two glass slides with H E stained material have been examined. The microscopic findings support the above pathologic diagnosis. Specimen: [id number] Received: 01/10/21 Status: WILFREDO Dyer Num: [id number] Spec Type: Surgical Subm Dr: Shane Snell MD Tissues: A Colon - Polyp (CECUM) B Colon - Polyp (SIGMOID) Procedures: HE Stain/4, Gross/Micro L4/2 Patient: Desean Landry JR [id number] (Continued) Specimen: [id number] Received: 01/10/21 (Continued) Signed (signature on file) Randi Ji MD 01/11/21 1809 Specimen: [id number] Received: 01/10/21 Status: WILFREDO Mckeon Num: [id number] Spec Type: Surgical Subm Dr: Shane Snell MD Tissues: A Colon - Polyp (CECUM) B Colon - Polyp (SIGMOID) Procedures: HE Stain/4, Gross/Micro L4/2 Patient: Desean Landry JR [id number] (Continued) Specimen: Received: 01/10/21 (Continued) CPT Codes 58345?2 Specimen: Received: 01/10/21 Status: WILFREDO Kelsie Num: [id number] Spec Type: Surgical Subm Dr: Shane Snell MD Tissues: A Colon - Polyp (CECUM) B Colon - Polyp (SIGMOID) Procedures: JUDIE Stain/4, Gross/Micro L4/2 Patient: Desean Landry JR [id number] (Continued) Signed (signature on file) Randi Ji MD 01/11/21 1809 [facility] CNCOon 04-13-2018 CNCO Letter TextOctober 2017[address] [place], [place] [address]RASO: Rocky Landry NO.: [phone] OF SERVICE: 04/06/2018Dept. of Pulmonary and Critical Care MedicineDear Mr. Landry,Attached please find a copy of your CAT scan chest report from March.Please contact me if I can contribute further in your health care management.Best regards.Yours sincerely,Cesar Rowley M.D., F.C.C.P.HC:lmEnclosure Normal [facility] CT CHEST WO IVCONon 04-06-[address] CHEST WO IVCON * * *Final Report* * *DATE OF EXAM: Apr 06 2018 12:50PM [facility] 0541 - CT CHEST WO IVCON / [...] any questions regarding this interpretation, please call [phone].If you are unable to reach us at the number above,please feel free to contact [facility] eRadiology at [phone] ACN Normal [facility] PROGRESSon 04-06-2018 Protein mass conc HNO ID: [id number]: Venita Lr: (none)Author Type: (none)Type: Progress NotesFiled: 04/06/2018 12:57 PMNote Text: Radiology Service Progress NotePATIENT NAME: Desean LandryMRN: [id number] OF SERVICE: April 06, 2018TIME: 12:28 PMPATIENT IDENTITY VERIFICATION COMPLETED USING TWO (2) METHODS: Patientconfirmed name verbally and ID band matches..PATIENT GENDER DATA: MalePATIENT RELEVANT IMPLANT DATA REVIEWED: Not ApplicableRADIOLOGY DEPARTMENT: CT; Exam(s) Completed: ChestPERIPHERAL IV DATA: Not applicableSIGNED BY: Venita Lee 2017 12:28 PM Normal [facility] CNOVon 09-10-2017 CNOV Office Visit (PULMMN) FRANTZ ANGELOADDISON ([id number]) 1940 MDate Time Provider Department09/10/17 9:55 AM CESAR ROWLEY During your visit today, we recorded the following information about you: Temperature Pulse Respiration Blood pressure 97.7 degrees 75/minute 18/minute 125/68 Weight Height 90.3 kg 1.753 Ritika Rowley MD 09/10/2017 12:26 PM SignedPULMONARY CLINICPATIENT NAME: Desean LandryMRN: [id number] CARE PHYSICIAN: Diogenes Casiano [facility]munication will be sent via [place] mail or [...] No ronchi. No ralesCARDIAC: normal S1 and F1JHLRCES: Abdomen soft.EXTREMETIES: No deformities. No LE edema. [...] [J98.11] Pleural calcification [J94.8]Order(s):CT CHEST WO IVCON [[id number]] Order #: [id number] FUTUREProblem List As Of Date: 09/10/2017(None)Disposition: Return in about 6 months (around 03/13/2018).Follow-up and Disposition History RecordedEncounter Number: [id number] Status:Closed by CESAR ROWLEY MD on 09/10/17 [facility] CT CHEST WO IVCONon 09-11-19 CT CHEST WO IVCON * * *Final Report* * *DATE OF EXAM: Sep 10 2017 9:05AM [facility] 0541 - CT CHEST WO IVCON / [...] 6 mm. Three-month imaging follow-up suggested for reevaluation.Production Miner: AMILCAR Transcribe Date/Time: Sep 10 2017 9:58ADictated by : CHRISTY MULTANI MDThis examination was interpreted and the report reviewed and electronically signed by: CHRISTY MULTANI MD on Sep 10 2017 2:48PM [id number] Normal [facility] PROGRESSon 09-10-2017 Protein mass conc HNO ID: [id number]: Cesar Jose: (none)Author Type: PhysicianType: Progress NotesFiled: 09/10/2017 12:26 PMNote Text:PULMONARY CLINICPATIENT NAME: Desean LandryMRN: [id number] CARE PHYSICIAN: Diogenes Casiano [facility]ommunication will be sent via [place] mail or [...] wheezing. No ronchi. NoralesCARDIAC: normal S1 and F6LECUXAC: Abdomen soft.EXTREMETIES: No deformities. No LE edema. [...] MedicineDATE: September 10, 2017TIME: 9:30 AM Normal [facility] Protein mass conc HNO ID: [id number]: Srinath Purcell CTS (Ct)ervice: RadiologyAuthor Type: Clinical TechnicianType: Progress NotesFiled: 09/10/2017 9:03 AMNote Text: Radiology Service Progress NotePATIENT NAME: Desean LandryMRN: [id number] OF SERVICE: September 10, 2017TIME: 9:03 AMPATIENT IDENTITY VERIFICATION COMPLETED USING TWO (2) METHODS: Patientconfirmed name verbally and ID band matches..PATIENT GENDER DATA: MalePATIENT RELEVANT IMPLANT DATA REVIEWED: YesRADIOLOGY DEPARTMENT: CT; Exam(s) Completed: ChestPERIPHERAL IV DATA: Not applicableSIGNED BY: Ildefonso Lin 2017 9:03 AM Normal [facility] HISTORY PHYSICALon 8 HISTORY PHYSICAL HNO ID: [id number] thor: Cesar Garcia: (none)Author Type: PhysicianType: HANDPFiled: 07/23/2017 5:35 PMNote Text:PULMONARY CONSULTPATIENT NAME: Desean LandryMRN: [id number] FOR CONSULT: Pleural effusionREQUESTING PHYSICIAN: REJI HealyOVERTON BROOKS VA MEDICAL CENTERMartin CARE PHYSICIAN: Diogenes Casiano [facility]TAommunication will be sent via [place] mail or shared electronic medicalrecordsHISTORY OF PRESENT ILLNESS: Mr. 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 Unable to make his own medical decision.He lives by himself but currently admitted at a SNF. He has a legalguardian Blanca Sofia phone # [phone].In June he was found on the floor [...] evaluation anddecided to pursue further evaluation at [facility].Since hospital discharge, he has been at a [...] MedicineDATE: July 23, 2017TIME: 12:12 PM Normal [facility] PROGRESSon 07-23-2017 Protein mass conc HNO ID: [id number]: Colleen Ceballos RtService: (none)Author Type: (none)Type: Progress NotesFiled: 07/23/2017 11:16 AMNote Text: Radiology Service Progress NotePATIENT NAME: Desean LandryMRN: [id number] OF SERVICE: July 23, 2017TIME: 11:16 AMPATIENT IDENTITY VERIFICATION COMPLETED USING TWO (2) METHODS: Patientconfirmed name verbally and Date of .PATIENT GENDER DATA: MalePATIENT RELEVANT IMPLANT DATA REVIEWED: Not ApplicableRADIOLOGY DEPARTMENT: General X-ray: Exam(s) Completed: Chest X-RayPERIPHERAL IV DATA: Not applicableSIGNED BY: Colleen Ceballos RtFebruary 2017 11:16 AM [facility] XR CHEST 2V FRONTAL/LATon XR CHEST [...] is tortuous with atherosclerotic calcifications.Other:IMPRESSION: As aboveTranscriptionist: AMILCAR Transcribe Date/Time: Jul 23 2017 3:23PDictated by : BELL ARMENTA MDThis examination was interpreted and the report reviewed and electronically signed by: BELL ARMENTA MD on Jul 23 2017 3:24PM [id number] Normal [facility] HOSPon 07-21-2017 HOSP Patient:Desean Landry MRN: [...] basenames: K,HCTProgress Notes (RADIO GEN MAIN J):Colleen Cat Lin Rt 07/23/2017 11:16 AM Signed Radiology Service Progress NotePATIENT NAME: Desean LandryMRN: [id number] OF SERVICE: July 23, 2017TIME: 11:16 AMPATIENT IDENTITY VERIFICATION COMPLETED USING TWO (2) METHODS: Patientconfirmed name verbally and Date of .PATIENT GENDER DATA: MalePATIENT RELEVANT IMPLANT DATA REVIEWED: Not ApplicableRADIOLOGY DEPARTMENT: General X-ray: Exam(s) Completed: Chest X-RayPERIPHERAL IV DATA: Not applicableSIGNED BY: Colleen Ceballos RtFebruary 2017 11:16 AMProgress Notes (HOSP [facility] P[facility] LAB H23):Latoya Mohamud, RN, RN 07/22/2017 10:35 AM Signed07/22/2017: Navigator contacted [facility] ([phone]) toobtain recent labs. Fish Housekeeper will fax labs and medication list. Craig also have a copies of this sent with him to his appointments. [facility] FANNYN Telephone (PULMMN) SA SHAILA LANDRY ([id number]) 1940 MDate Time Provider Department07/16/17 CESAR ROWLEY During your visit today, we recorded the following information about you:Kristie Pacheco [facility] 07/16/2017 2:35 PM Signedcxr report to INSTRUCTIONAL SUPERVISOR.Italo Mora CNP 07/17/2017 12:47 PM SignedCXR 07/13/2017StableAllergies As of Date: 07/16/2017(No Known Allergies)Date Reviewed: 07/14/2017Reviewed by: Kim Walker (Fel) - Fully AssessedReason for Visit: Received Outside Medical Records [3576]Problem List As Of Date: 07/16/2017(None) Status:Closed by KRISTIE ANDRADE on 07/16/17 Normal [facility] BASIC METABOLIC PANELon Calcium 8.5 mg/dL Low 8.6-10.3 [facility] Comment on above: Order Comment: No: Do not add to previou s draw Performed By: #### 4 1000, 43213, 02371, 72294, 36897 ####[facility] [place] [address], [facility] Chloride 104 mmol/L Normal 98-107 [facility] Comment on above: Order Comment: No: Do not add to previou s draw Performed By: #### 4 1000, 56519, 49844, 64054, 22983 ####[facility] [place] [address], [facility] CO2 30 mmol/L Normal 21-31 [facility] Comment on above: Order Comment: No: Do not add to previou s draw Performed By: #### 4 1000, 26756, 47333, 34486, 56913 ####[facility] [place] [address], [facility] Creatinine 0.94 mg/dL Normal 0.70-1.30 [facility] Comment on above: Order Comment: No: Do not add to previou s draw Performed By: #### 4 1000, 28463, 88829, 04707, 43906 ####[facility] [place] [address], [facility] eGFR (black) mL/min/{1.73_m2} Normal >60 [facility] Comment on above: Order Comment: No: Do not add to previou s draw Result Comment: Calc ulation may not be valid for patients over 70 years Performed By: #### 4 1000, 53682, 98296, 64237, 83126 ####[facility] eGFR (non-black) mL/min/{1.73_m2} Normal >60 Th e [facility] Comment on above: Order Comment: No: Do not add to previou s draw Result Comment: Calc ulation may not be valid for patients over 70 years Performed By: #### 4 1000, 94328, 30500, 86248, 14446 ####[facility] [facility] Glucose mass conc 98 mg/dL Normal 70-100 [facility] Comment on above: Order Comment: No: Do not add to previou s draw Performed By: #### 4 1000, 12325, 78733, 32565, 25782 ####[facility] [facility].[address] Potassium molar conc 4.3 mmol/L Normal 3.5-5.1 [facility] Comment on above: Order Comment: No: Do not add to previou s draw Performed By: #### 4 1000, 97793, 00988, 49094, 27765 ####[facility] [facility].[address] Sodium 141 mmol/L Normal 136-145 [facility] Comment on above: Order Comment: No: Do not add to previou s draw Performed By: #### 4 1000, 99465, 00584, 48222, 94686 ####[facility] [facility].[address] Urea nitrogen 17 mg/dL Normal 7-25 [facility] Comment on above: Order Comment: No: Do not add to previou s draw Performed By: #### 4 1000, 26639, 01691, 61075, 50580 ####[facility] [facility] CBC W/DIFFon 06-20-2017 Basophils Auto #/vol (Bld) 0.5 % Normal 0.0-2.0 [facility] Comment on above: Performed By: #### 50357, 09414, 79093, 49494, 66381 ####[facility] [place] [address], [facility] Eosinophils/100 leukocytes 3.6 % Normal 0.0-5.0 [facility] Comment on above: Performed By: #### 85198, 10549, 81148, 17399, 45378 ####[facility] Erythrocyte distribution width Auto Ratio (RBC) 14.2 % Normal 11.5-16.9 [facility] Comment on above: Performed By: #### 52865, 33885, 07541, 93749, 25660 ####[facility] [facility].[address] Erythrocytes (RBC) 4.19 mill/mm3 Low 4.30-5.90 [facility] Comment on above: Performed By: #### 98403, 10986, 06796, 61296, 94122 ####[facility] [facility].[address] Hematocrit (HCT) 39.9 % Normal 39.0-55.0 [facility] Comment on above: Performed By: #### 89980, 27061, 73672, 49086, 27433 ####[facility] [facility] Hemoglobin mass conc (Bld) 13.6 g/dL Low 13.9-16.3 [facility] Comment on above: Performed By: #### 18827, 70159, 54803, 18481, 63232 ####[facility] [facility] [place] [address], [facility] Lymphocytes/100 leukocytes 15.7 % Low 20.0-40.0 [facility] Comment on above: Performed By: #### 49268, 32737, 86105, 86388, 38915 ####[facility] MCH 32.4 pg High 24.0-32.0 [facility] Comment on above: Performed By: #### 82536, 35002, 41320, 21100, 82822 ####[facility] MCHC mass conc (RBC) 34.0 g/dL Normal 32.0-36.0 [facility] Comment on above: Performed By: #### 42235, 83758, 63170, 11892, 44397 ####[facility] MCV 95.3 fL Normal 80.0-100.0 [facility] Comment on above: Performed By: #### 25482, 92811, 38333, 75197, 69663 ####[facility] METHOD Normal RBC Morphology Normal [facility] Comment on above: Performed By: #### 36900, 22045, 33956, 41340, 73478 ####[facility] MONOS 9.9 % High 2-8 [facility] Comment on above: Performed By: #### 28481, 08781, 40860, 00919, 56683 ####[facility] Neutrophils/100 leukocytes 70.3 % High 50-70 [facility] Comment on above: Performed By: #### 68634, 60357, 23273, 39456, 52145 ####[facility] [place] [address], [facility] PLAT CNT 193 Thou/mm3 Normal 100-400 [facility] Comment on above: Performed By: #### 79529, 73813, 47280, 57092, 52132 ####[facility] WBC (Leukocytes) 8.7 Thou/mm3 Normal 4.0-10.0 [facility] Comment on above: Performed By: #### 92994, 81427, 65057, 70111, 83024 ####[facility] Discharge Summaryon 06-20-19 Discharge Summary MR#: [id number] Admitted: 06/13/2017 Discharged: 06/20/2017 Date of : 1940 Physician: Diogenes Henry M.D. DISCHARGE SUMMARYPRIMARY DIAGNOSIS: Rhabdomyolysis secondary to prolonged immobilization.SECONDARY DIAGNOSES:1. History of atrial fibrillation.2. Right sided Posterior Calcified pleural plaques.3. Right-sided loculated pleural effusion.CONSULTS: CT Surgery, Pulmonary.PROCEDURES: None.SUMMARY OF HOSPITAL COURSE: Mr. Landry is a 76-year-old male, who presented[facility] ED with complaints of being found down for approximately 15 to 18hours. Per the patient, he was in usual state of health and last nightwhen woke to take his medications, his legs gave out and fell to the floor.Denies loss of consciousness but stated that he was so weak that he wasunable to get up. Eventually, EMS was contacted and brought the patient [facility]. Initial workup was notable for severe rhabdomyolysis,and the patient was transferred to [facility]. He has a past medical historysignificant for [...] not have a biopsy performed whilehospitalized at [facility].His CK and myoglobin continue to trend downward, and he was deemed stableat the time of discharge.He will need to follow up with Dr. Rowley at [facility] for continuedmanagement of his pleural effusions concerning [...] continueto follow up with Dr. Rowley at [facility] for continued management ofthe pleural effusions that were noted on your CT chest.DISCHARGE MEDICATIONS:1. Metoprolol tartrate 25 mg p.o. b.i.d.2. Multiple vitamin, folic acid 400 mcg tablet.3. Pravastatin 40 mg p.o. daily.4. Thiamine (vitamin B1) 100 mg tablet p.o. daily.5. Apixaban 5 mg p.o. b.i.d. (holding at this time).Reviewed By:Jarad Ayon MD 06/21/2017 01:29 PElectronically Signed by:Diogenes Henry M.D. 06/22/2017 08:54 A Diogenes Henry M.D...Date Dict: 06/19/2017/05:47 P/Jarad Ayon, MDDate Trans: 06/20/2017 04:29 P/mmoDN_JN:[id number]: Diogenes Casiano M.D. [address] [place] [address] Normal [facility] MAGNESIUM BLOODon 06-20-2017 Magnesium 2.0 mg/dL Normal 1.9-2.7 [facility] Comment on above: Order Comment: No: Do not add to previou s draw Performed By: #### 4 1000, 43206, 86581, 40171, 62577 ####[facility] [place] [address], [facility] PHOSPHORUS BLOODon 8 Phosphate 3.5 mg/dL Normal 2.5-5.0 [facility] Comment on above: Order Comment: No: Do not add to previou s draw Performed By: #### 4 1000, 37343, 64121, 86417, 70484 ####[facility] [place] [address], [facility] BASIC METABOLIC PANELon Calcium 8.5 mg/dL Low 8.6-10.3 [facility] Comment on above: Order Comment: No: Do not add to previou s draw Performed By: #### 4 1000, 69143, 41714, 45403, 09772 ####[facility] [place] [address], [place] Chloride 105 mmol/L Normal 98-107 [facility] Comment on above: Order Comment: No: Do not add to previou s draw Performed By: #### 4 1000, 88195, 38857, 19803, 51124 ####[facility] [place] [address], [facility] CO2 26 mmol/L Normal 21-31 [facility] Comment on above: Order Comment: No: Do not add to previou s draw Performed By: #### 4 1000, 27634, 21979, 67654, 20068 ####[facility] [facility] Creatinine 0.95 mg/dL Normal 0.70-1.30 [facility] Comment on above: Order Comment: No: Do not add to previou s draw Performed By: #### 4 1000, 83478, 96223, 40621, 83534 ####[facility] [facility] eGFR (black) mL/min/{1.73_m2} Normal >60 [facility] Comment on above: Order Comment: No: Do not add to previou s draw Result Comment: Calc ulation may not be valid for patients over 70 years Performed By: #### 4 1000, 36656, 72112, 85698, 22820 ####[facility] [facility] eGFR (non-black) mL/min/{1.73_m2} Normal >60 Th e [facility] Comment on above: Order Comment: No: Do not add to previou s draw Result Comment: Calc ulation may not be valid for patients over 70 years Performed By: #### 4 1000, 16991, 06314, 78338, 47314 ####[facility] [facility] [place] [address], [facility] Glucose mass conc 102 mg/dL High 70-100 [facility] Comment on above: Order Comment: No: Do not add to previou s draw Performed By: #### 4 1000, 75414, 19590, 87293, 64571 ####[facility] [facility] [place] [address], [facility] [place] Potassium molar conc 3.7 mmol/L Normal 3.5-5.1 [facility] Comment on above: Order Comment: No: Do not add to previou s draw Performed By: #### 4 1000, 99864, 46104, 69234, 16098 ####[facility] Sodium 139 mmol/L Normal 136-145 [facility] Comment on above: Order Comment: No: Do not add to previou s draw Performed By: #### 4 1000, 49229, 93687, 97408, 58519 ####[facility] Urea nitrogen 17 mg/dL Normal 7-25 [facility] Comment on above: Order Comment: No: Do not add to previou s draw Performed By: #### 4 1000, 03245, 36801, 76339, 39853 ####[facility] [facility] CBC W/DIFFon 06-19-2017 Basophils Auto #/vol (Bld) 0.5 % Normal 0.0-2.0 [facility] Comment on above: Order Comment: No: Do not add to previou s draw Performed By: #### 4 1000, 16509, 81213, 63519, 98444 ####[facility] [facility] Eosinophils/100 leukocytes 1.0 % Normal 0.0-5.0 [facility] Comment on above: Order Comment: No: Do not add to previou s draw Performed By: #### 4 1000, 46359, 47213, 91258, 95364 ####[facility] Erythrocyte distribution width Auto Ratio (RBC) 13.7 % Normal 11.5-16.9 [facility] Comment on above: Order Comment: No: Do not add to previou s draw Performed By: #### 4 1000, 96299, 22799, 77197, 25172 ####[facility] Erythrocytes (RBC) 4.33 mill/mm3 Normal 4.30-5.90 [facility] Comment on above: Order Comment: No: Do not add to previou s draw Performed By: #### 4 1000, 33275, 68735, 17730, 58655 ####[facility] [facility] Hematocrit (HCT) 41.5 % Normal 39.0-55.0 [facility] Comment on above: Order Comment: No: Do not add to previou s draw Performed By: #### 4 1000, 29774, 40742, 48826, 82540 ####[facility] Hemoglobin mass conc (Bld) 14.1 g/dL Normal 13.9-16.3 [facility] Comment on above: Order Comment: No: Do not add to previou s draw Performed By: #### 4 1000, 38009, 34649, 40555, 64444 ####[facility] [facility].[address] Lymphocytes/100 leukocytes 11.5 % Low 20.0-40.0 [facility] Comment on above: Order Comment: No: Do not add to previou s draw Performed By: #### 4 1000, 98589, 44450, 64782, 27508 ####[facility] [facility].[address] MCH 32.7 pg High 24.0-32.0 [facility] Comment on above: Order Comment: No: Do not add to previou s draw Performed By: #### 4 1000, 26597, 82507, 13225, 27666 ####[facility] MCHC mass conc (RBC) 34.1 g/dL Normal 32.0-36.0 [facility] Comment on above: Order Comment: No: Do not add to previou s draw Performed By: #### 4 1000, 48738, 20398, 15617, 24574 ####[facility] [place] [address], [facility] [place] MCV 95.9 fL Normal 80.0-100.0 [facility] Comment on above: Order Comment: No: Do not add to previou s draw Performed By: #### 4 1000, 85890, 92467, 13537, 00503 ####[facility] [place] [address], [facility] [place] METHOD Normal RBC Morphology Normal [facility] Comment on above: Order Comment: No: Do not add to previou s draw Performed By: #### 4 1000, 87910, 15877, 79027, 88245 ####[facility] [place] [address], [facility] [place] MONOS 11.9 % High 2-8 [facility] Comment on above: Order Comment: No: Do not add to previou s draw Performed By: #### 4 1000, 66228, 08424, 22202, 73770 ####[facility] [place] [address], [facility] [place] Neutrophils/100 leukocytes 75.1 % High 50-70 [facility] Comment on above: Order Comment: No: Do not add to previou s draw Performed By: #### 4 1000, 56680, 82565, 53532, 55850 ####[facility] [place] [address], [facility] [place] PLAT CNT 192 Thou/mm3 Normal 100-400 [facility] Comment on above: Order Comment: No: Do not add to previou s draw Performed By: #### 4 1000, 64226, 45081, 48114, 02766 ####[facility] [place] [address], [facility] [place] WBC (Leukocytes) 10.7 Thou/mm3 High 4.0-10.0 [facility] Comment on above: Order Comment: No: Do not add to previou s draw Performed By: #### 4 1000, 46387, 21491, 11534, 46808 ####[facility] [place] [address], [facility] [place] CPKon 06-19-2017 Creatine kinase (CK) 252 U/L High 30-223 [facility] Comment on above: Performed By: #### 20138, 96416, 81987, 21717, 11437 ####[facility] [place] [address], [facility] [place] MAGNESIUM BLOODon 06-19-2017 Magnesium 2.0 mg/dL Normal 1.9-2.7 [facility] Comment on above: Order Comment: No: Do not add to previou s draw Performed By: #### 4 1000, 25356, 98554, 05654, 58577 ####[facility] [place] [address], [facility] [place] MYOGLOBINon 06-19-2017 Myoglobin 213 ng/mL Critically high 0-90 [facility] Comment on above: Result Comment: A DOUBLING OF VALUES FRO M SERIAL BLOOD COLLECTIONS(1 - 2 HOURS APART) IS MORE INDICATIVE OF A M.I.THAN THE ABSOLUTE VALUE. Performed By: #### 4 1000, 85909, 81020, 68664, 55060 ####[facility] [place] [address], [facility] [place] PHOSPHORUS BLOODon 8 Phosphate 2.7 mg/dL Normal 2.5-5.0 [facility] Comment on above: Order Comment: No: Do not add to previou s draw Performed By: #### 4 1000, 03304, 94620, 94833, 82850 ####[facility] [place] [address], [facility] [place] ALBUMIN BLOODon 06-18-2017 Albumin 2.6 g/dL Low 3.5-5.7 [facility] Comment on above: Performed By: #### 83482, 10818, 76639, 51595, 40956 ####[facility] [place] [address], [facility] [place] BASIC METABOLIC PANELon 01-0 Calcium 8.4 mg/dL Low 8.6-10.3 [facility] Comment on above: Order Comment: No: Do not add to previou s draw Performed By: #### 5 0608 ####[facility] [place] [address], [facility] [place] Chloride 106 mmol/L Normal 98-107 [facility] Comment on above: Order Comment: No: Do not add to previou s draw Performed By: #### 5 0608 ####[facility] [place] [address], [facility] [place] CO2 25 mmol/L Normal 21-31 [facility] Comment on above: Order Comment: No: Do not add to previou s draw Performed By: #### 5 0608 ####[facility] [place] [address], [facility] [place] Creatinine 0.93 mg/dL Normal 0.70-1.30 [facility] Comment on above: Order Comment: No: Do not add to previou s draw Performed By: #### 5 0608 ####[facility] eGFR (black) mL/min/{1.73_m2} Normal >60 [facility] Comment on above: Order Comment: No: Do not add to previou s draw Result Comment: Calc ulation may not be valid for patients over 70 years Performed By: #### 5 0608 ####[facility] [place] [address], [facility] [place] eGFR (non-black) mL/min/{1.73_m2} Normal >60 Th e [facility] Comment on above: Order Comment: No: Do not add to previou s draw Result Comment: Calc ulation may not be valid for patients over 70 years Performed By: #### 5 0608 ####[facility] Glucose mass conc 106 mg/dL High 70-100 [facility] Comment on above: Order Comment: No: Do not add to previou s draw Performed By: #### 5 0608 ####[facility] Potassium molar conc 3.4 mmol/L Low 3.5-5.1 [facility] Comment on above: Order Comment: No: Do not add to previou s draw Performed By: #### 5 0608 ####[facility] [facility].[address] Sodium 137 mmol/L Normal 136-145 [facility] Comment on above: Order Comment: No: Do not add to previou s draw Performed By: #### 5 0608 ####[facility] Urea nitrogen 21 mg/dL Normal 7-25 [facility] Comment on above: Order Comment: No: Do not add to previou s draw Performed By: #### 5 0608 ####[facility] [facility].[address] CBC W/DIFFon 06-18-2017 Basophils Auto #/vol (Bld) 0.9 % Normal 0.0-2.0 [facility] Comment on above: Order Comment: No: Do not add to previou s draw Performed By: #### 5 0608 ####[facility] Eosinophils/100 leukocytes 2.3 % Normal 0.0-5.0 [facility] Comment on above: Order Comment: No: Do not add to previou s draw Performed By: #### 5 0608 ####[facility] Erythrocyte distribution width Auto Ratio (RBC) 13.6 % Normal 11.5-16.9 [facility] Comment on above: Order Comment: No: Do not add to previou s draw Performed By: #### 5 0608 ####[facility] [facility].[address] Erythrocytes (RBC) 4.37 mill/mm3 Normal 4.30-5.90 [facility] Comment on above: Order Comment: No: Do not add to previou s draw Performed By: #### 5 0608 ####[facility] [facility].[address] Hematocrit (HCT) 42.0 % Normal 39.0-55.0 [facility] Comment on above: Order Comment: No: Do not add to previou s draw Performed By: #### 5 0608 ####[facility] [facility].[address] Hemoglobin mass conc (Bld) 14.2 g/dL Normal 13.9-16.3 [facility] Comment on above: Order Comment: No: Do not add to previou s draw Performed By: #### 5 0608 ####[facility] [facility].[address] Lymphocytes/100 leukocytes 15.2 % Low 20.0-40.0 [facility] Comment on above: Order Comment: No: Do not add to previou s draw Performed By: #### 5 0608 ####[facility] [facility].[address] MCH 32.5 pg High 24.0-32.0 [facility] Comment on above: Order Comment: No: Do not add to previou s draw Performed By: #### 5 0608 ####[facility] [place] [address], [facility] [place] MCHC mass conc (RBC) 33.8 g/dL Normal 32.0-36.0 [facility] Comment on above: Order Comment: No: Do not add to previou s draw Performed By: #### 5 0608 ####[facility] [place] [address], [facility] [place] MCV 96.1 fL Normal 80.0-100.0 [facility] Comment on above: Order Comment: No: Do not add to previou s draw Performed By: #### 5 0608 ####[facility] [place] [address], [facility] [place] METHOD Normal RBC Morphology Normal [facility] Comment on above: Order Comment: No: Do not add to previou s draw Performed By: #### 5 0608 ####[facility] [place] [address], [facility] [place] MONOS 11.8 % High 2-8 [facility] Comment on above: Order Comment: No: Do not add to previou s draw Performed By: #### 5 0608 ####[facility] [place] [address], [facility] [place] Neutrophils/100 leukocytes 69.8 % Normal 50-70 [facility] Comment on above: Order Comment: No: Do not add to previou s draw Performed By: #### 5 0608 ####[facility] [place] [address], [facility] [place] PLAT CNT 168 Thou/mm3 Normal 100-400 [facility] Comment on above: Order Comment: No: Do not add to previou s draw Performed By: #### 5 0608 ####[facility] [place] [address], [facility] [place] WBC (Leukocytes) 10.8 Thou/mm3 High 4.0-10.0 [facility] Comment on above: Order Comment: No: Do not add to previou s draw Performed By: #### 5 0608 ####[facility] CPKon 06-18-2017 Creatine kinase (CK) 586 U/L High 30-223 [facility] Comment on above: Performed By: #### 70744, 68125, 13110, 58988, 94491 ####[facility] MAGNESIUM BLOODon 06-18-2017 Magnesium 1.9 mg/dL Normal 1.9-2.7 [facility] Comment on above: Order Comment: No: Do not add to previou s draw Performed By: #### 5 0608 ####[facility] MYOGLOBINon 06-18-2017 Myoglobin 353 ng/mL Critically high 0-90 [facility] Comment on above: Result Comment: A DOUBLING OF VALUES FRO M SERIAL BLOOD COLLECTIONS(1 - 2 HOURS APART) IS MORE INDICATIVE OF A M.I.THAN THE ABSOLUTE VALUE. Performed By: #### 4 1000, 40714, 67977, 68948, 32366 ####[facility] [place] [address], [facility] [place] PHOSPHORUS BLOODon 8 Phosphate 3.7 mg/dL Normal 2.5-5.0 [facility] Comment on above: Order Comment: No: Do not add to previou s draw Performed By: #### 5 0608 ####[facility] BASIC METABOLIC PANELon Calcium 8.4 mg/dL Low 8.6-10.3 [facility] Comment on above: Order Comment: No: Do not add to previou s draw Performed By: #### 5 0608 ####[facility] [place] [address], [facility] [place] Chloride 110 mmol/L High 98-107 [facility] Comment on above: Order Comment: No: Do not add to previou s draw Performed By: #### 5 0608 ####[facility] [place] [address], [facility] [place] CO2 25 mmol/L Normal 21-31 [facility] Comment on above: Order Comment: No: Do not add to previou s draw Performed By: #### 5 0608 ####[facility] [facility] [place] [address], [facility] [place] Creatinine 0.95 mg/dL Normal 0.70-1.30 [facility] Comment on above: Order Comment: No: Do not add to previou s draw Performed By: #### 5 0608 ####[facility] [place] [address], [facility] [place] eGFR (black) mL/min/{1.73_m2} Normal >60 [facility] Comment on above: Order Comment: No: Do not add to previou s draw Result Comment: Calc ulation may not be valid for patients over 70 years Performed By: #### 5 0608 ####[facility] [facility] [place] [address], [facility] [place] eGFR (non-black) mL/min/{1.73_m2} Normal >60 Th e [facility] Comment on above: Order Comment: No: Do not add to previou s draw Result Comment: Calc ulation may not be valid for patients over 70 years Performed By: #### 5 0608 ####[facility] [place] [address], [facility] [place] Glucose mass conc 107 mg/dL High 70-100 [facility] Comment on above: Order Comment: No: Do not add to previou s draw Performed By: #### 5 0608 ####[facility] Potassium molar conc 3.5 mmol/L Normal 3.5-5.1 [facility] Comment on above: Order Comment: No: Do not add to previou s draw Performed By: #### 5 0608 ####[facility] Sodium 141 mmol/L Normal 136-145 [facility] Comment on above: Order Comment: No: Do not add to previou s draw Performed By: #### 5 0608 ####[facility] Urea nitrogen 23 mg/dL Normal 7-25 [facility] Comment on above: Order Comment: No: Do not add to previou s draw Performed By: #### 5 0608 ####[facility] CBC COMPLETE BLOOD COUNTon 0 - Erythrocyte distribution width Auto Ratio (RBC) 13.7 % Normal 11.5-16.9 [facility] Comment on above: Order Comment: No: Do not add to previou s draw Performed By: #### 5 0608 ####[facility] Erythrocytes (RBC) 4.45 mill/mm3 Normal 4.30-5.90 [facility] Comment on above: Order Comment: No: Do not add to previou s draw Performed By: #### 5 0608 ####[facility] Hematocrit (HCT) 42.9 % Normal 39.0-55.0 [facility] Comment on above: Order Comment: No: Do not add to previou s draw Performed By: #### 5 0608 ####[facility] [place] [address], [facility] [place] Hemoglobin mass conc (Bld) 14.3 g/dL Normal 13.9-16.3 [facility] Comment on above: Order Comment: No: Do not add to previou s draw Performed By: #### 5 0608 ####[facility] [place] [address], [facility] [place] MCH 32.1 pg High 24.0-32.0 [facility] Comment on above: Order Comment: No: Do not add to previou s draw Performed By: #### 5 0608 ####[facility] MCHC mass conc (RBC) 33.3 g/dL Normal 32.0-36.0 [facility] Comment on above: Order Comment: No: Do not add to previou s draw Performed By: #### 5 0608 ####[facility] MCV 96.3 fL Normal 80.0-100.0 [facility] Comment on above: Order Comment: No: Do not add to previou s draw Performed By: #### 5 0608 ####[facility] [place] [address], [facility] [place] PLAT CNT 138 Thou/mm3 Normal 100-400 [facility] Comment on above: Order Comment: No: Do not add to previou s draw Performed By: #### 5 0608 ####[facility] [place] [address], [facility] [place] WBC (Leukocytes) 10.7 Thou/mm3 High 4.0-10.0 [facility] Comment on above: Order Comment: No: Do not add to previou s draw Performed By: #### 5 0608 ####[facility] MYOGLOBINon 06-17-2017 Myoglobin 700 ng/mL Critically high 0-90 [facility] Comment on above: Result Comment: A DOUBLING OF VALUES FRO M SERIAL BLOOD COLLECTIONS(1 - 2 HOURS APART) IS MORE INDICATIVE OF A M.I.THAN THE ABSOLUTE VALUE. Performed By: #### 5 0608 ####[facility] LUMBAR SPINE WO CONTRA STon 06-16-[address] LUMBAR SPINE WO CONTRAST [facility] [place] [id number] Patient Name: DESEAN LANDRY : 1940ex: MAge: Race: WhiteMRN: [id number]. Location: [id number] Status: IVisit #: [id number] Date: 06/16/2017 10:45:00 AMCompleted Date: 06/16/2017 11:31 AMRequesting Provider: NADEEN SALCEDO Attending Provider: NADEEN SALCEDO Report Copy To: Signs & Symptoms: Back Pain (specify level)History: Patient history not availableComments: R/O Fractures, If Other selected, state reason for examExam: 3D CT LUMBAR SPINE WO CONTRASTAccession #: [id number] 3D CT LUMBAR SPINE WO CONTRAST 06/16/2017 [...] findings. Electronically signed by:Srinath Meyer. Transcribed by: [email or web address], User Resident: PAOLA WOLFElectronically Signed by: SRINATH MEYER @ 06/16/2017 12:13 PMI personally read this/these film(s) with this resident Normal [facility] Comment on above: Order Comment: No: Do not add to previou s draw 3D CT THORACIC SPINE WO CONT RASTon 06-16-[address] THORACIC SPINE WO CONTRAST [facility] [id number] [place] [address] Patient Name: DESEAN LANDRY : 3Sex: MAge: Race: WhiteMRN: [id number]. Location: [id number] Status: IVisit #: [id number] Date: 06/16/2017 10:45:00 AMCompleted Date: 06/16/2017 11:32 AMRequesting Provider: NADEEN SALCEDO Attending Provider: NADEEN SALCEDO Report Copy To: Signs & Symptoms: Back Pain (specify level)History: Patient history not availableComments: R/O Fractures, History of Fall and c/o Back Pain. Rule out fractureExam: 3D CT THORACIC SPINE WO CONTRASTAccession #: [id number] 3D CT THORACIC SPINE WO CONTRAST 06/16/2017 [...] findings. Electronically signed by:Srinath Meyer. Transcribed by: [email or web address], User Resident: CAN HARRISElectronically Signed by: SRINATH MEYER @ 06/16/2017 12:03 PMI personally read this/these film(s) with this resident Normal [facility] Comment on above: Order Comment: No: Do not add to previou s draw BASIC METABOLIC PANELon Calcium 7.9 mg/dL Low 8.6-10.3 [facility] Comment on above: Order Comment: No: Do not add to previou s draw Performed By: #### 0 0071, 63151 ####[facility] [facility] [place] [address], [facility] [place] Chloride 112 mmol/L High 98-107 [facility] Comment on above: Order Comment: No: Do not add to previou s draw Performed By: #### [id number], [id number] ####[facility] [place] [address], [facility] [place] CO2 22 mmol/L Normal 21-31 [facility] Comment on above: Order Comment: No: Do not add to previou s draw Performed By: #### [id number], [id number] ####[facility] [place] [address], [facility] [place] Creatinine 1.05 mg/dL Normal 0.70-1.30 The [facility] Comment on above: Order Comment: No: Do not add to previou s draw Performed By: #### 0 0071, 31806 ####[facility] eGFR (black) mL/min/{1.73_m2} Normal >60 [facility] Comment on above: Order Comment: No: Do not add to previou s draw Result Comment: Calc ulation may not be valid for patients over 70 years Performed By: #### 0 0071, 42650 ####[facility] [facility] [place] [address], [facility] [place] eGFR (non-black) mL/min/{1.73_m2} Normal >60 Th e [facility] Comment on above: Order Comment: No: Do not add to previou s draw Result Comment: Calc ulation may not be valid for patients over 70 years Performed By: #### 0 0071, 37447 ####[facility] [place] [address], [facility] [place] Glucose mass conc 102 mg/dL High 70-100 [facility] Comment on above: Order Comment: No: Do not add to previou s draw Performed By: #### 0 0071, 88213 ####[facility] [facility] [place] [place] [address], [facility] [place] Potassium molar conc 4.0 mmol/L Normal 3.5-5.1 [facility] Comment on above: Order Comment: No: Do not add to previou s draw Performed By: #### 0 0071, 50985 ####[facility] [facility] [place] [address], [facility] Sodium 139 mmol/L Normal 136-145 [facility] Comment on above: Order Comment: No: Do not add to previou s draw Performed By: #### 0 0071, 70386 ####[facility] [facility] [place] [address], [facility] [place] Urea nitrogen 20 mg/dL Normal 7-25 [facility] Comment on above: Order Comment: No: Do not add to previou s draw Performed By: #### 0 0071, 97891 ####[facility] [place] [address], [facility] BNP (B-TYPE NATRIURETIC PEPT DEANNE)on 06-16-2017 BNP 1298 pg/mL High 0-100 The [facility] Comment on above: Order Comment: No: Do not add to previou s draw Result Comment: Give n the appropriate clinical setting a BNP result of >100 pg/mLindicates congestive heart failure. Performed By: #### 5 0608 ####[facility] CBC COMPLETE BLOOD COUNTon 0 06-16-2017 Erythrocyte distribution width Auto Ratio (RBC) 13.7 % Normal 11.5-16.9 [facility] Comment on above: Order Comment: No: Do not add to previou s draw Performed By: #### 0 0071, 66190 ####[facility] Erythrocytes (RBC) 4.24 mill/mm3 Low 4.30-5.90 [facility] Comment on above: Order Comment: No: Do not add to previou s draw Performed By: #### 0 0071, 18583 ####[facility] Hematocrit (HCT) 40.7 % Normal 39.0-55.0 [facility] Comment on above: Order Comment: No: Do not add to previou s draw Performed By: #### 0 0071, 50073 ####[facility] Hemoglobin mass conc (Bld) 13.6 g/dL Low 13.9-16.3 [facility] Comment on above: Order Comment: No: Do not add to previou s draw Performed By: #### 0 0071, 18850 ####[facility] [place] [address], [facility] [place] MCH 32.1 pg High 24.0-32.0 [facility] Comment on above: Order Comment: No: Do not add to previou s draw Performed By: #### 0 0071, 68007 ####[facility] MCHC mass conc (RBC) 33.4 g/dL Normal 32.0-36.0 [facility] Comment on above: Order Comment: No: Do not add to previou s draw Performed By: #### 0 0071, 53041 ####[facility] [facility].[address] MCV 96.1 fL Normal 80.0-100.0 [facility] Comment on above: Order Comment: No: Do not add to previou s draw Performed By: #### 0 0071, 35260 ####[facility] [facility].[address] PLAT CNT 120 Thou/mm3 Normal 100-400 [facility] Comment on above: Order Comment: No: Do not add to previou s draw Performed By: #### 0 0071, 12004 ####[facility] [facility].[address] WBC (Leukocytes) 10.3 Thou/mm3 High 4.0-10.0 [facility] Comment on above: Order Comment: No: Do not add to previou s draw Performed By: #### 0 0071, 33207 ####[facility] [facility].[address] CPKon 06-16-2017 Creatine kinase (CK) 2950 U/L Critically high 30-223 [facility] Comment on above: Performed By: #### 89309, 07220 ####[facility] [facility].[address] CR-PORTABLE CHEST 1 VIEW IMP Emeli 06-16-2017 CR-PORTABLE CHEST 1 VIEW IMPORT Images were obtained outside of [facility] [id number] Normal [facility] CT CHEST WO CONTRASTon 06-16 CT CHEST WO CONTRAST [facility] [place] [address] Patient Name: DESEAN LANDRY : 2Sex: MAge: Race: WhiteMRN: [id number]. Location: [id number] Status: IVisit #: [id number] Date: 06/16/2017 5:25:00 PMCompleted Date: 06/16/2017 06:06 PMRequesting Provider: RAFFAELE GARCIA Attending Provider: NADEEN SALCEDO Report Copy To: Signs & Symptoms: Shortness of BreathHistory: Patient history not availableComments: R/O Pleural Effusion, please comment about pleural effusionExam: CT CHEST WO CONTRASTAccession #: [id number] CT CHEST WO CONTRAST 06/16/2017 6:06 PM [...] findings. Electronically signed by:Xiomara Christine. Transcribed by: [email or web address], User Resident: SUNITHA CAMACHOElectronically Signed by: XIOMARA CHRISTINE @ 06/17/2017 01:24 PMI personally read this/these film(s) with this resident Normal [facility] Comment on above: Order Comment: No: Do not add to previou s draw CT-3D CT LUMBAR SPINE WO CON TRAST IMPORTon 06-16-2017 CT-3D CT LUMBAR SPINE WO CONTRAST IMPORT Images were obtained outside of [facility] [id number] Normal [facility] CT-3D CT THORACIC SPINE WO C ONTRAST IMPORTon 06-16-2017 CT-3D CT THORACIC SPINE WO CONTRAST IMPORT Images were obtained outside of [facility] [id number] Normal [facility] CT-CT CHEST WO CONTRAST IMPO RTon 06-16-2017 CT-CT CHEST WO CONTRAST IMPORT Images were obtained outside of [facility] [id number] Normal [facility] MYOGLOBINon 06-16-2017 Myoglobin 872 ng/mL Critically high 0-90 [facility] Comment on above: Result Comment: A DOUBLING OF VALUES FRO M SERIAL BLOOD COLLECTIONS(1 - 2 HOURS APART) IS MORE INDICATIVE OF A M.I.THAN THE ABSOLUTE VALUE. Performed By: #### 0 0071, 27196 ####[facility] [place] [address] PORTABLE CHEST 1 VIEWon PORTABLE CHEST 1 VIEW [facility] [place] [place] [address] Patient Name: DESEAN LANDRY : 2Sex: MAge: Race: WhiteMRN: [id number]. Location: [id number] Status: IVisit #: [id number] Date: 06/16/2017 12:50:00 PMCompleted Date: 06/16/2017 01:22 PMRequesting Provider: NADEEN SALCEDO Attending Provider: NADEEN SALCEDO Report Copy To: Signs & Symptoms: O2 DesaturationHistory: Patient history not availableComments: R/O AspirationExam: PORTABLE CHEST 1 VIEWAccession #: [id number] PORTABLE CHEST 1 VIEW 06/16/2017 1:22 PM [...] chest. Electronically signed by:Srinath Meyer. Transcribed by: [email or web address], User Resident: Electronically Signed by: SRINATH MEYER @ 06/16/2017 01:25 PM Normal [facility] Comment on above: Order Comment: No: Do not add to previou s draw PROTHROMBIN TIMEon 8 INR Coag RelTime (PPP) 1.51 {INR} High 0.91-1.16 [facility] Comment on above: Order Comment: No: [...] OF ACTION, CLINICALEFFECTIVENESS, AND OPTIMAL THERAPEUTIC RANGE. [id number]. Performed By: #### 5 0608 ####[facility] [place] [address], [facility] Prothrombin time (PT) Coag time (PPP) 18.4 s High 12.3-14.8 [facility] Comment on above: Order Comment: No: Do not add to previou s draw Result Comment: ALL RESULTS MUST BE INTERPRETED WITH RESPECT TO BLOOD DRAWING ARTIFACTOR DILUTION ERROR OF ANTICOAGULANT AT THE TIME OF SAMPLING. Performed By: #### 5 0608 ####[facility] [place] [address], [facility] BASIC METABOLIC PANELon 01-0 Calcium 8.0 mg/dL Low 8.6-10.3 [facility] Comment on above: Order Comment: No: Do not add to previou s draw Performed By: #### 0 0071, 82507, 29500, 08810 ####[facility] [place] [address], [facility] Chloride 109 mmol/L High 98-107 [facility] Comment on above: Order Comment: No: Do not add to previou s draw Performed By: #### 0 0071, 66554, 12263, 75132 ####[facility] [place] [address], [facility] CO2 21 mmol/L Normal 21-31 [facility] Comment on above: Order Comment: No: Do not add to previou s draw Performed By: #### 0 0071, 36431, 41510, 47711 ####[facility] [place] [address], [facility] [place] Creatinine 1.15 mg/dL Normal 0.70-1.30 [facility] Comment on above: Order Comment: No: Do not add to previou s draw Performed By: #### 0 0071, 44528, 10491, 41189 ####[facility] [place] [address], [place] eGFR (black) mL/min/{1.73_m2} Normal >60 [facility] Comment on above: Order Comment: No: Do not add to previou s draw Result Comment: Calc ulation may not be valid for patients over 70 years Performed By: #### 0 0071, 57383, 75706, 43979 ####[facility] [place] [address], [facility] eGFR (non-black) mL/min/{1.73_m2} Normal >60 Th e [facility] Comment on above: Order Comment: No: Do not add to previou s draw Result Comment: Calc ulation may not be valid for patients over 70 years Performed By: #### 0 0071, 78080, 89542, 21292 ####[facility] [place] [address], [facility] Glucose mass conc 117 mg/dL High 70-100 [facility] Comment on above: Order Comment: No: Do not add to previou s draw Performed By: #### 0 0071, 29179, 73612, 51250 ####[facility] [place] [address], [facility] Potassium molar conc 3.9 mmol/L Normal 3.5-5.1 [facility] Comment on above: Order Comment: No: Do not add to previou s draw Performed By: #### 0 0071, 91603, 73977, 20650 ####[facility] [place] [address], [facility] Sodium 138 mmol/L Normal 136-145 [facility] Comment on above: Order Comment: No: Do not add to previou s draw Performed By: #### 0 0071, 90420, 32374, 30552 ####[facility] [place] [address], [facility] Urea nitrogen 23 mg/dL Normal 7-25 [facility] Comment on above: Order Comment: No: Do not add to previou s draw Performed By: #### 0 0071, 16458, 86726, 31801 ####[facility] [facility] CBC COMPLETE BLOOD COUNTon 0 06-15-2017 Erythrocyte distribution width Auto Ratio (RBC) 13.7 % Normal 11.5-16.9 [facility] Comment on above: Order Comment: No: Do not add to previou s draw Performed By: #### 5 0608 ####[facility] [facility] Erythrocytes (RBC) 4.44 mill/mm3 Normal 4.30-5.90 [facility] Comment on above: Order Comment: No: Do not add to previou s draw Performed By: #### 5 0608 ####[facility] [facility] Hematocrit (HCT) 42.7 % Normal 39.0-55.0 [facility] Comment on above: Order Comment: No: Do not add to previou s draw Performed By: #### 5 0608 ####[facility] [facility] Hemoglobin mass conc (Bld) 14.5 g/dL Normal 13.9-16.3 [facility] Comment on above: Order Comment: No: Do not add to previou s draw Performed By: #### 5 0608 ####[facility] [facility] [place] [address], [facility] MCH 32.7 pg High 24.0-32.0 [facility] Comment on above: Order Comment: No: Do not add to previou s draw Performed By: #### 5 0608 ####[facility] [place] [address], [facility] MCHC mass conc (RBC) 34.0 g/dL Normal 32.0-36.0 [facility] Comment on above: Order Comment: No: Do not add to previou s draw Performed By: #### 5 0608 ####[facility] [facility].[address] MCV 96.1 fL Normal 80.0-100.0 [facility] Comment on above: Order Comment: No: Do not add to previou s draw Performed By: #### 5 0608 ####[facility] [facility].[address] PLAT CNT 134 Thou/mm3 Normal 100-400 [facility] Comment on above: Order Comment: No: Do not add to previou s draw Performed By: #### 5 0608 ####[facility] [facility].[address] WBC (Leukocytes) 11.3 Thou/mm3 High 4.0-10.0 [facility] Comment on above: Order Comment: No: Do not add to previou s draw Performed By: #### 5 0608 ####[facility] [facility].[address] CPKon 06-15-2017 Creatine kinase (CK) 7925 U/L Critically high 30-223 [facility] Comment on above: Order Comment: No: Do not add to previou s draw Performed By: #### 0 0071, 47504 ####[facility] [facility].[address] MAGNESIUM BLOODon 06-15-2017 Magnesium 2.4 mg/dL Normal 1.9-2.7 [facility] Comment on above: Performed By: #### 36653, 32528 ####[facility] [facility] [place] [address], [facility] PHOSPHORUS BLOODon 8 Phosphate 2.6 mg/dL Normal 2.5-5.0 [facility] Comment on above: Performed By: #### 65215, 23633 ####[facility] [place] [address], [facility] BASIC METABOLIC PANELon 12-3 Calcium 8.3 mg/dL Low 8.6-10.3 [facility] Comment on above: Order Comment: No: Do not add to previou s draw Performed By: #### 4 1000, 72991, 63574, 14407, 46147 ####[facility] [place] [address], [facility] Chloride 107 mmol/L Normal 98-107 [facility] Comment on above: Order Comment: No: Do not add to previou s draw Performed By: #### 4 1000, 90267, 75869, 50803, 92493 ####[facility] [facility] [place] [address], [facility] CO2 23 mmol/L Normal 21-31 [facility] Comment on above: Order Comment: No: Do not add to previou s draw Performed By: #### 4 1000, 11933, 20322, 05198, 67740 ####[facility] [facility] [place] [address], [facility] Creatinine 1.25 mg/dL Normal 0.70-1.30 [facility] Comment on above: Order Comment: No: Do not add to previou s draw Performed By: #### 4 1000, 26091, 89099, 88553, 03083 ####[facility] [place] [address], [facility] eGFR (black) mL/min/{1.73_m2} Normal >60 [facility] Comment on above: Order Comment: No: Do not add to previou s draw Result Comment: Calc ulation may not be valid for patients over 70 years Performed By: #### 4 1000, 40188, 98226, 72817, 72517 ####[facility] [place] [address], [facility] eGFR (non-black) 56 ml/min/1.73sq m Abnormal >60 [facility] Comment on above: Order Comment: No: Do not add to previou s draw Result Comment: Calc ulation may not be valid for patients over 70 years Performed By: #### 4 1000, 34029, 08844, 90566, 64961 ####[facility] [place] [address], [facility] Glucose mass conc 109 mg/dL High 70-100 [facility] Comment on above: Order Comment: No: Do not add to previou s draw Performed By: #### 4 1000, 44183, 60570, 37787, 11559 ####[facility] [place] [address], [facility] Potassium molar conc 4.3 mmol/L Normal 3.5-5.1 [facility] Comment on above: Order Comment: No: Do not add to previou s draw Performed By: #### 4 1000, 65958, 88258, 02172, 46038 ####[facility] Sodium 136 mmol/L Normal 136-145 [facility] Comment on above: Order Comment: No: Do not add to previou s draw Performed By: #### 4 1000, 08392, 63372, 98807, 29634 ####[facility] [place] [address], [facility] Urea nitrogen 25 mg/dL Normal 7-25 [facility] Comment on above: Order Comment: No: Do not add to previou s draw Performed By: #### 4 1000, 90636, 45838, 93914, 57474 ####[facility] [place] [address], [facility] CBC COMPLETE BLOOD COUNTon 1 Erythrocyte distribution width Auto Ratio (RBC) 13.8 % Normal 11.5-16.9 [facility] Comment on above: Order Comment: No: Do not add to previou s draw Performed By: #### 5 0608 ####[facility] Erythrocytes (RBC) 4.83 mill/mm3 Normal 4.30-5.90 [facility] Comment on above: Order Comment: No: Do not add to previou s draw Performed By: #### 5 0608 ####[facility] [facility].[address] Hematocrit (HCT) 46.7 % Normal 39.0-55.0 [facility] Comment on above: Order Comment: No: Do not add to previou s draw Performed By: #### 5 0608 ####[facility] [facility].[address] Hemoglobin mass conc (Bld) 15.8 g/dL Normal 13.9-16.3 [facility] Comment on above: Order Comment: No: Do not add to previou s draw Performed By: #### 5 0608 ####[facility] [facility].[address] MCH 32.7 pg High 24.0-32.0 [facility] Comment on above: Order Comment: No: Do not add to previou s draw Performed By: #### 5 0608 ####[facility] [facility].[address] MCHC mass conc (RBC) 33.9 g/dL Normal 32.0-36.0 [facility] Comment on above: Order Comment: No: Do not add to previou s draw Performed By: #### 5 0608 ####[facility] MCV 96.6 fL Normal 80.0-100.0 [facility] Comment on above: Order Comment: No: Do not add to previou s draw Performed By: #### 5 0608 ####[facility] [place] [address], [facility] PLAT CNT 135 Thou/mm3 Normal 100-400 [facility] Comment on above: Order Comment: No: Do not add to previou s draw Performed By: #### 5 0608 ####[facility] WBC (Leukocytes) 15.7 Thou/mm3 High 4.0-10.0 [facility] Comment on above: Order Comment: No: Do not add to previou s draw Performed By: #### 5 0608 ####[facility]3000 [facility] CPKon 06-14-2017 Creatine kinase (CK) 66274 U/L Critically high 30-223 [facility] Comment on above: Performed By: #### 41217, 36428, 05512, 16684, 23760 ####[facility] MAGNESIUM BLOODon 06-14-2017 Magnesium 2.8 mg/dL High 1.9-2.7 [facility] Comment on above: Order Comment: No: Do not add to previou s draw Performed By: #### 4 1000, 80275, 87226, 40267, 11570 ####[facility] [place] [address], [facility] PHOSPHORUS BLOODon 7 Phosphate 3.3 mg/dL Normal 2.5-5.0 [facility] Comment on above: Order Comment: No: Do not add to previou s draw Performed By: #### 4 1000, 70956, 92468, 79349, 74215 ####[facility] [place] [address], [facility] TSHon 06-14-2017 Thyroid stimulating hormone (TSH) 2.65 MICRO-IU/ML Normal 0.34-5.60 [facility] Comment on above: Performed By: #### 01240, 25017, 59525, 80201, 73093 ####[facility] BASIC METABOLIC PANELon 12-3 Calcium 8.4 mg/dL Low 8.6-10.3 [facility] Comment on above: Order Comment: No: Do not add to previou s draw Performed By: #### 0 0071, 87715 ####[facility] [place] [address], [facility] Chloride 105 mmol/L Normal 98-107 [facility] Comment on above: Order Comment: No: Do not add to previou s draw Performed By: #### 0 0071, 76590 ####[facility] [place] [address], [facility] CO2 26 mmol/L Normal 21-31 [facility] Comment on above: Order Comment: No: Do not add to previou s draw Performed By: #### 0 0071, 90948 ####[facility] Creatinine 1.26 mg/dL Normal 0.70-1.30 [facility] Comment on above: Order Comment: No: Do not add to previou s draw Performed By: #### 0 0071, 36137 ####[facility] [place] [address], [facility] eGFR (black) mL/min/{1.73_m2} Normal >60 [facility] Comment on above: Order Comment: No: Do not add to previou s draw Result Comment: Calc ulation may not be valid for patients over 70 years Performed By: #### 0 [id number], [id number] ####[facility] [place] [address], [facility] [place] eGFR (non-black) 56 ml/min/1.73sq m Abnormal >60 [facility] Comment on above: Order Comment: No: Do not add to previou s draw Result Comment: Calc ulation may not be valid for patients over 70 years Performed By: #### 0 [id number], [id number] ####[facility] [place] [address], [facility] [place] Glucose mass conc 106 mg/dL High 70-100 [facility] Comment on above: Order Comment: No: Do not add to previou s draw Performed By: #### 0 0071, [id number] ####[facility] [place] [address], [facility] [place] Potassium molar conc 4.8 mmol/L Normal 3.5-5.1 [facility] Comment on above: Order Comment: No: Do not add to previou s draw Performed By: #### 0 0071, [id number] ####[facility] [place] [address], [facility] [place] Sodium 138 mmol/L Normal 136-145 [facility] Comment on above: Order Comment: No: Do not add to previou s draw Performed By: #### 0 0071, [id number] ####[facility] [place] [address], [facility] [place] Urea nitrogen 23 mg/dL Normal 7-25 [facility] Comment on above: Order Comment: No: Do not add to previou s draw Performed By: #### 0 0071, [id number] ####[facility] [place] [address], [facility] [place] CPKon 06-13-2017 Creatine kinase (CK) 42012 U/L Critically high 30-223 [facility] Comment on above: Order Comment: No: Do not add to previou s draw Performed By: #### 0 0071, [id number] ####[facility] [place] [address], [facility] [place] History and Physicalon 06-13 History and Physical MR#: [id number] Pt. Name: Desean Landry Admitted: 06/13/2017 Date of : 1940 Attending Physician: Arpan Camacho MD Room #: [id number] Discharge Date: HISTORY AND PHYSICALPRIMARY CARE PHYSICIAN: [...] activated and the patient was brought to thespital for further evaluation and management.The patient presented to the [facility]. Overthere, the patient had initial workup revealed severe rhabdomyolysis, sothe patient was [facility] for further evaluationand management. Denying [...] Dict: 06/13/2017/06:07 P/Mariangel Hayes Trans: 06/13/2017 06:38 [id number] Normal [facility] Encounters Encounter Date Encounter Type Care Provider Facility Start: 02-18-2023 End: 02-18-2023 [facility] AURERBEL [facility] Start: 12-05-2022 End: 12-05-2022 ambulatory AYDE WAGONER [facility] Start: 09-10-2022 End: 09-10-2022 ambulatory MYAH RUSSELL [facility] Start: 09-02-2022 Evaluation and management of inpatient [facility] Start: 09-01-2022 Evaluation and management of inpatient [facility] Start: 09-01-2022 ambulatory [facility] Start: 09-01-2022 End: 09-02-2022 Evaluation and management of inpatient [facility] Start: 08-26-2022 End: 08-27-[address] DIOGENES CASIANO . Facility: Start: 08-20-2022 End: 08-20-[address] DOIGENES CASIANO . Facility: Start: 07-30-2022 End: 07-31-[address] DIOGENES CASIANO . Facility: Start: 03-02-2022 End: 03-03-[address] SRINATH MCKEON Facility: Start: 02-19-2022 End: 02-20-[address] DIOGENES CASIANO . Facility: Start: 01-15-2022 End: 01-16-[address] DIOGENES CASIANO . Facility: Start: 04-06-2018 End: 04-06-2018 Patient encounter procedure CESAR ROWLEY [facility] Start: 09-10-2017 End: 09-11-2017 Patient encounter procedure CESAR ROWLEY [facility] Start: 07-23-2017 End: 07-24-2017 Patient encounter procedure CESAR ROWLEY [facility] Start: 07-23-2017 End: 07-23-2017 Patient encounter procedure KALEB SANDOVAL [facility] Start: 06-13-2017 End: 06-20-2017 Evaluation and management of inpatient ARPAN FRANK Facility:[facility] Procedures Date Procedure Procedure Detail Performing Clinician Start: 07-30-[address] YUAN CASIANO . Comment on above: Performed By: #### P TT, PT #### [facility] [address] [address] [address] Artem Rojas Payers Date Payer Category Payer [employer] ( and others) [id number] 1958 Medicare [id number] 1940 Unknown [id number] 1940 Unknown [id number] 1940 Unknown [id number] 1940 Unknown [id number] 1940 Unknown [id number] 1940 Unknown [id number] Medicare [id number] Progress note 02-18-2023 Note Date & Type Note Facility 02-18-2023 Note [place] [facility] - [facility] Subjective Desean Landry Jr. is a 82 y.o. [...] normal ventricular function, fixed inferior defect (prior [place] vs. artifact), normal wall motion, no ischemia. [...] Update 07/08/2017: He was admitted recently to [facility] after falling and having rhabdomyolysis. He was hydrated. He did well. This was possibly related to deconditioning and he is getting physical therapy. He will be soon discharged to home from the detention. otherwise he has no issues. Update 02/04/2018: [...] same symptoms of claudication with walking. In 2017 ABIs at rest and with exercise were [...] No bleeding on (more content not included)... [facility] Progress note 12-05-2022 Note Date & Type Note Facility 12-05-2022 Note [place] [facility] Consul t Note Reason for visit: Bradycardia/ Perm AF, s/p PPM placement 09/01/22 single chamber [employer] HPI: patient for routine follow-up s/p [...] is accompanied today by his power of campaign advisor. He is tolerating his DOAC with no [...] Friends and Family: Twice a week Attends [employer] Services: More than 4 times per year [...] gums, no snorin (more content not included)... [facility] Progress note 12-05-2022 Note Date & Type Note Facility 12-05-2022 Note Review of Systems All other systems reviewed and are negative. [facility] Progress note 09-10-2022 Note Date & Type Note Facility 09-10-2022 Note Patient seen for wou nd check s/p [employer] pacemaker placement on 09/01/2022 for AF [...] 100 mg BID x7 days. Prescription sent. [facility] Progress note 09-02-2022 Note Date & Type Note Facility 09-02-2022 Note MICHELA spoke with julia Novoa who reports that patient has an aide who comes twice a week and a private pay nurse who comes once a week to set up his medications. Chasity reports that she will pick him up this evening and take him home. No further OTM concerns at this time. [facility] Progress note 09-02-2022 Note Date & Type Note Facility 09-02-2022 Note Social Work Site Supervisor jaspreet et with patient to discuss dc [...] No further OTM needs at this time. [facility] Procedure note 09-01-2022 Note Date & Type Note Facility 09-01-2022 Note SINGLE CHAMBER PACEM JULIUS IMPLANT PROCEDURE NOTE DATE OF PROCEDURE: 09/01/2022 PERFORMING PHYSICIAN: Dr. Damian Wolf ELEMENTARY SPANISH TEACHER: Dr.Chandramohan Camarillo CONSENT: Patient/POA LOCATION: EP Lab PROCEDURE PERFORMED: 1. Implantation of single chamber PPM ([employer]) 2. Ultrasound guided venous access INDICATIONS: [...] using modified seldinger technique using a 5 [place]ish micropunture needle with ultrasound guidance with some difficulty. 0.35??? wire was placed. Local infiltration of 1% Lidocaine was performed, and an incision was created in the left upper chest with prior incision extended. Dissection was then performed using cautery down to the fascial plane above the muscle. Gentle dissection was performed, and a small pocket was made enough for the device. 6 [place] Safe sheath was placed over the wire. An active fixation [employer] pacing lead was then delivered through the 6Fsheath to the right ventricle. After confirmation of lead position on orthogonal views ([place] and ITALIAN) to confirm septal position, the screw was activated, and the lead was placed in the right ventricular mid cavity towards the septum. After confirmation of good sensing parameters, injury pattern and pacing thresholds, 10V pacing was done and no diaphragmatic stimulation was noted. It was then secured in the pocket using three 1-0 silk sutures. A [employer] pacemaker generator was then burped with [...] x 2 week. Damian Wolf Cardiac Electrophysiology [facility] Clinical Note 09-01-2022 Note Date & Type Note Facility 09-01-2022 Note Patient: Desean crowley Jr. Procedure Information Date/Time: 09/01/22 1330 Procedure: Implant PPM Location: [facility] 1 / [facility] (Cath) Providers: Damian Wolf MD Clinical information reviewed: Tobacco Allergies Meds Med Hx Surg Hx Fam Hx Physical Exam Airway Mallampati: II TM distance: >3 FB Neck ROM: full Cardiovascular Dental Pulmonary Abdominal Anesthesia Plan ASA 2 CSE Anesthetic plan and risks discussed with patient and healthcare power of campaign advisor. Use of blood products discussed with patient who. Additional Equipment Requests [facility] Summary Purpose Family History No Family [...] section and content) DATE CREATED AUTHOR 12/08/2017 [facility] DATE CREATED AUTHOR AUTHOR'S ORGANIZ ATION 05/18/2018 [facility] DATE CREATED AUTHOR AUTHOR'S ORGANIZ ATION 01/16/2021 [facility] DATE CREATED AUTHOR AUTHOR'S ORGANIZ ATION 06/06/2021 [facility] DATE CREATED AUTHOR AUTHOR'S ORGANIZ ATION 09/02/2022 [facility] DATE CREATED AUTHOR AUTHOR'S ORGANIZ ATION 08/24/2023 [facility] FOR RECORDS PERTAINING TO PATIENTS WHO ARE [...] BE BASED ON THE PRIMARY CLINICAL RECORDS. [employer] provides no warranty or guarantee of the accuracy or completeness of information in this document.
== END 2023-09-02 09:23 | disposition home or self-care (01) ==
LOC: RAD 09:25
PROVIDERS: PCP Family Medicine; Visit Provider Family Medicine
DX: M54.40 Lumbago with sciatica, unspecified side (principal); M51.37 Other intervertebral disc degeneration, lumbosacral region
CPT/HCPCS: 72100; 72220

== ENCOUNTER 2023-11-13 13:00 | Outpatient (OUT) | payer MEDICARE, MEDICAID, SELFPAY ==
--- NOTE | 2023-11-13 13:04 | US_ITS ---
[address] [address] Patient Name: DESEAN LANDRY MRN: [id number] date: 1940 Sex: M Assigned Patient Location: CT Current Patient Location: Accession/Order Number: [id number] Exam Date: 11/13/2023 14:10 Report Date: 11/16/2023 09:33 At the request of: DIOGENES CASIANO Procedure: US carotid duplex BI EXAMINATION: US carotid duplex BI HISTORY: Dysarthria R47.1 COMPARISON: No relevant comparison available. TECHNIQUE: Duplex Doppler ultrasound analysis of carotid and vertebral arteries. . Bilateral carotid arterial duplex examination was performed using B-mode, color flow and spectral analysis. Carotid stenosis is reported according to validated velocity parameters, similar to NASCET criteria. FINDINGS: RIGHT CAROTID ARTERY: Moderate plaque without focal significant stenosis. RIGHT VERTEBRAL: Antegrade flow. Subclavian: PSV: 112.2 cm/s EDV: 2.2 cm/s CCA: Prox: PSV: 64.6 cm/s EDV: 12.8 cm/s Mid: PSV: 58.1 cm/s EDV: 14.2 cm/s Distal: PSV: 54.8 cm/s EDV: 12.0 cm/s BULB: PSV: 33.9 cm/s EDV: 6.9 cm/s ICA: Prox: PSV: 55.7 cm/s EDV: 12.1 cm/s Mid: PSV: 51.5 cm/s EDV: 17.5 cm/s Distal: PSV: 90.3 cm/s EDV: 24.1 cm/s ECA: PSV: 74.9 cm/s EDV: 3.8 cm/s VERTEBRAL: PSV: 30.4 cm/s EDV: 10.4 cm/s ICA/CCA ratio: PSV: 1.6 EDV: 1.7 LEFT CAROTID ARTERY: Moderate plaque without focal significant stenosis. LEFT VERTEBRAL: Antegrade flow. Subclavian: PSV: 178.6 cm/s EDV: 0.0 cm/s CCA: Prox: PSV: 99.6 cm/s EDV: 18.3 cm/s Mid: PSV: 85.4 cm/s EDV: 16.0 cm/s Distal: PSV: 74.1 cm/s EDV: 14.4 cm/s BULB: PSV: 64.4 cm/s EDV: 11.1 cm/s ICA: Prox: PSV: 79.0 cm/s EDV: 22.4 cm/s Mid: PSV: 78.9 cm/s EDV: 19.2 cm/s Distal: PSV: 64.4 cm/s EDV: 16.0 cm/s ECA: PSV: 69.1 cm/s EDV: 7.6 cm/s VERTEBRAL: PSV: 37.4 cm/s EDV: 8.6 cm/s ICA/CCA ratio: PSV: 0.9 EDV: 1.4 US/US carotid duplex BI IMPRESSION: 1. 0-49% flow stenosis within the right left carotid arteries. 2. Moderate atherosclerotic disease. Spectral Doppler US Thresholds Stenosis (%) PSV (cm/sec) VICA/VCCA 0-49 <150 <2.5 50-69 150-225 2.5-4.0 >70 >225 >4.0 Electronically authenticated by: MATTHEW OSLIS Date: 11/16/2023 09:33
--- NOTE | 2023-11-13 13:04 | CT_ITS ---
The [address] [address] Patient Name: DESEAN LANDRY MRN: [id number] date: 1940 Sex: M Assigned Patient Location: CT Current Patient Location: CT Accession/Order Number: [id number] Exam Date: 11/13/2023 13:15 Report Date: 11/13/2023 14:40 At the request of: DIOGENES CASIANO Procedure: CT head/brain wo con EXAMINATION: CT head/brain wo con HISTORY: Dysarthria R47.1 COMPARISON: CT head 08/19/2023 TECHNIQUE: Axial CT images were obtained without IV contrast. Dose reduction techniques were achieved by using automated exposure control and/or adjustment of mA and/or kV according to patient size and/or use of iterative reconstruction technique. FINDINGS: BRAIN: No edema, hemorrhage, mass, acute infarction, or inappropriate atrophy. Small area of beam hardening artifact overlying anterior medial left frontal lobe. CSF SPACES: No hydrocephalus, subarachnoid hemorrhage, or mass. Appropriate for age. SKULL: No fracture, mass, or other significant visible lesion. SINUSES: No significant mucosal thickening or fluid on the limited views. ORBITS: No appreciable abnormality on the limited views. OTHER: Negative CT/CT head/brain wo con IMPRESSION: 1. No intracranial hemorrhage or CT evidence of acute ischemia. 2. Age consistent atrophy and chronic small vessel ischemic changes. Electronically authenticated by: MATTHEW SOLIS Date: 11/13/2023 14:40
--- OUTSIDE RECORDS SUMMARY | 2023-11-13 13:11 | XMS_ITS | CCD ---
Author Organization [facility] Care Team Providers Care Financial Quantitative Analyst Name Role Phone ARPAN CAMACHO Unavailable Unavailable SAHRA GILMORE Unavailable Unavailable HOMartin DIOGENES Unavailable Unavailable GAIL RENLAS Unavailable Unavailable LORI, RENDELL Unavailable Unavailable LORI, RENDELL Unavailable Unavailable LOY MORAHEL (HIGHER EDUCATION ADMINISTRATOR) Unavailable Unavailable LORI, RENDELL Unavailable Unavailable LORI, RENDELL Unavailable Unavailable ROWLEY, CESAR Unavailable Unavailable ROWLEY, CESAR Unavailable Unavailable ROWLEY, CESAR Unavailable Unavailable ROWLEY, CESAR Unavailable Unavailable ROWLEY, CESAR Unavailable Unavailable ROWLEY, CESAR Unavailable Unavailable OH Romero, DR SHETTY Primary Care Unavailable OH ., DR SHETTY Admitting Unavailable HOY ., DR SHETTY Attending Unavailable HOY ., DR SHETTY Consulting Unavailable HOY ., DR SHETTY Primary Care Unavailable HOY ., DR SHETTY Admitting Unavailable HOY ., DR SHETTY Attending Unavailable HOY ., DR SHETTY Consulting Unavailable OH ., DR SHETTY Primary Care Unavailable DAMIAN OWLF Admitting Unavailable DAMIAN WOLF Attending Unavailable DAMIAN WOLF Consulting Unavailable DR SRINATH MCKEON Consulting Unavailable [place] ., DR SHETTY Primary Care Unavailable MITCHELL MEJIA Admitting Unavailable MITCHELL MEJIA Attending Unavailable MATTHEW CHADWICK Consulting Unavailable TRACEY KLINE Consulting Unavailable NISSA VIGIL Consulting Unavailable MITCHELL MEJIA Consulting Unavailable OH ., DR SHETTY Admitting Unavailable BRAXTONY ., DR SHETTY Attending Unavailable HOY ., DR SHETTY Consulting Unavailable BRAXTONY ., DR SHETTY Primary Care Unavailable BRAXTONY ., DR SHETTY Admitting Unavailable HOY ., DR SHETTY Attending Unavailable OH ., DR SHETTY Consulting Unavailable [place] ., DR SHETTY Primary Care Unavailable DAMIAN WOLF Referring Unavailable MYAH RUSSELL Attending Unavailable AYDE WAGONER Attending Unavailable DRAGAN PEPPER Attending Unavailable DAMIAN WOLF Admitting Unavailable THU FENTON Attending Unavailable DAMIAN WOLF Referring Unavailable [...] Onset: 03-04-2022 Episodic Other aftercare (1 source) care home (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; Translations: [[facility] (CURRENT) USE OF ANTICOAGULANTS] Onset: 06-13-2017 Episodic Other aftercare (1 source) care home (current) use of oral hypoglycemic drugs; Translations: [[facility] USE ORAL HYPOGLYCEMIC DX] Onset: 03-04-2022 Episodic Other aftercare (1 source) Other usp (current) drug therapy; Translations: [OTH [facility] [employer] CURRENT DRUG THERAPY] Onset: 03-04-2022 Episodic Other [...] Range Facility Orders Onlyon 08-19-2023 Orders Only [id number] Jordin Landry Jr. 1940 Date Provider Department Center 08/19/2023 241DAMIAN VITALE [facility] Whitaker Family History Problem Relation Age of Onset Cancer Mother Family Status - Relation Status Age at Mother Normal [facility] Office Visiton 02-18-2023 Follow-up visit [id number] Jordin Landry Jr. 1940 M Date Provider Department Center 02/18/2023 DRAGAN BALDWIN [facility] Family History Problem Relation Age of Onset Cancer Mother Family Status - Relation Status Age at Mother Level of Service:76488 [place] OFFICE/OUTPATIENT ESTABLISHED LOW MDM 20-29 MIN Reason for Visit and Comments: Follow-up [785228] - Pt is here f/U [facility] Office Visiton 12-05-2022 Follow-up visit [id number] Jordin Landry Jr. 1940 M Date Provider Department [place] 12/05/2022 AYDE ZHENG [facility] Guillen Family History Problem Relation Age of Onset Cancer Mother Family Status - Relation Status Age at Mother Level of Service:13947 [place] OFFICE/OUTPATIENT ESTABLISHED MOD MDM 30-39 MIN Reason for Visit and Comments: Follow-up [189824] - Pt is her for 3 month F/U [facility] Office Visiton 09-10-2022 Follow-up visit [id number] Jordin Landry Jr. 1940 Date Provider Department [place] 09/10/2022 MYAH COLLINS [facility] Family History Problem Relation Age of Onset Cancer Mother Family Status - Relation Status Age at Mother Level of Service:46431 [place] POSTOP FOLLOW UP VISIT RELATED TO ORIGINAL PX [facility] 30on 09-02-2022 30 The patient is Moder ately Unstable - Medium risk of patient condition declining or worsening The patient's goals for the shift include Pain Control The clinical goals for the shift include stable vs [facility] 30 The patient is Moder ately Stable [...] and document skin integrity Normal [facility] DSon 09-02-2022 DS Admission Admitted 09/01/2022 for [...] complete details duy see H&P. Desean Landry is a 81 y.o. year old with [...] Center 12/05/2022 11:00 AM Ayde Wagoner NP [facility] Test Results Pending At Discharge none Normal [facility] NURSNOTEon 09-02-2022 NURSNOTE AVS reviewed with nikole gordon and guardizaid Gaspar. No questions or concerns at this time. AVS signed by guardian. Copy of AVS placed in bedside chart. Normal [facility] NURSNOTE RN spoke to Chasity (guardian) in regards to DC orders. Chasity is able to pick patient up around 1700 today. Patient is aware. Normal [facility] HPon 09-01-2022 [facility] Electrophysiology Consult Note Reason for visit: PPM [...] is accompanied today by his power of state attorney. He is tolerating his DOAC with no [...] Neck: suppl (more content not included)... Normal [facility] Electrophysiology Consult Note Reason for visit: [facility] HPI: Desean Landry is a 81 y.o. year old with [...] is accompanied today by his power of state attorney. He is tolerating his DOAC with no [...] (more content not included)... Normal [facility] NURSNOTEon 09-01-2022 NURSNOTE CHG wipe prep done a nd iodine nasal swab prep done per protocol for PPM implant. Normal [facility] Orders Onlyon 09-01-2022 Orders Only [id number] Jordin Landry meghna Crawford Jr. 1940 M Date Provider Department Center 09/01/2022 RANCHO DENIS [facility] VASC LAB ID HeartVAS Family History Problem Relation Age of Onset Cancer Mother Family Status - Relation Status Age at Mother Normal [facility] CBC AUTO DIFFon 08-26-2022 BASO # 0.1 103/ul Normal 0.0-0.1 [facility] Comment on above: Performed By: #### CBC #### [facility] [address] [address] [address] Artem Rojas Basophils/100 WBC (Bld) 1.0 % Normal 0.2-2.0 [facility] Comment on above: Performed By: #### CBC #### [facility] [address] [address] [address] Artem Rojas EO # 0.2 103/ul Normal 0.0-0.7 [facility] Comment on above: Performed By: #### CBC #### [facility] [address] [address] [address] Artem Rojas Eosinophils/100 WBC (Bld) 2.0 % Normal 0.9-7.0 [facility] Comment on above: Performed By: #### CBC #### [facility] [address] [address] [address] Artem Rojas Erythrocyte distribution width (RBC) [Ratio] 13.1 % Normal 11.0-15.0 [facility] Comment on above: Performed By: #### CBC #### [facility] [address] [address] [address] Artem Rojas Hematocrit (Bld) [Volume fraction] 43.8 % Normal 42.0-54.0 [facility] Comment on above: Performed By: #### CBC #### [facility] [address] [address] [address] Artem Rojas Hemoglobin (Bld) [Mass/Vol] 14.5 g/dL Normal 14.0-18.0 [facility] Comment on above: Performed By: #### CBC #### [facility] [address] [place] [address] Dr. Artem Rojas IG # 0.07 10e3/ul Critically high 0.00-0.03 [facility] Comment on above: Performed By: #### CBC #### [facility] [address] [place] [address] Dr. Artem Rojas IG % 0.8 % Critically high 0.0-0.5 [facility] Comment on above: Performed By: #### CBC #### [facility] [address] [place] [address] Dr. Artem Rojas LYMPH # 1.8 103/ul Normal 1.2-3.8 [facility] Comment on above: Performed By: #### CBC #### [facility] [address] [place] [address] Dr. Artem Rojas Lymphocytes/100 WBC (Bld) 20.0 % Critically low 20.5-60.0 [facility] Comment on above: Performed By: #### CBC #### [facility] [address] [place] [address] Dr. Artem Rojas MANUAL DIFF REQ NO Normal [facility] Comment on above: Performed By: #### CBC #### [facility] [address] [place] [address] Dr. Artem Rojas MCH (RBC) [Entitic mass] 30.0 pg Normal 25.9-34.0 [facility] Comment on above: Performed By: #### CBC #### [facility] [address] [place] [address] Dr. Artem Rojas MCHC (RBC) [Mass/Vol] 33.1 g/dL Normal 29.9-35.2 [facility] Comment on above: Performed By: #### CBC #### [facility] [address] [place] [address] Dr. Artem Rojas MCV (RBC) [Entitic vol] 90.7 fL Normal 80.0-94.0 [facility] Comment on above: Performed By: #### CBC #### [facility] [address] [place] [address] Dr. Artem Rojas MONO # 0.8 103/ul Normal 0.3-0.8 [facility] Comment on above: Performed By: #### CBC #### [facility] [address] [place] [address] Dr. Artem Rojas Monocytes/100 WBC (Bld) 8.7 % Normal 1.7-12.0 [facility] Comment on above: Performed By: #### CBC #### [facility] [address] [place] [address] Dr. Artem Rojas NEUT # 6.1 103/ul Normal 1.4-6.5 [facility] Comment on above: Performed By: #### CBC #### [facility] [address] [place] [address] Dr. Artem Rojas Neutrophils/100 WBC (Bld) 67.5 % Normal 43.0-75.0 [facility] Comment on above: Performed By: #### CBC #### [facility] [address] [place] [address] Dr. Artem Rojas Platelet mean volume (Bld) [Entitic vol] 9.7 fL Normal 9.5-13.5 [facility] Comment on above: Performed By: #### CBC #### [facility] [address] [place] [address] Dr. Artem Rojas PLT 333 103/ul Normal 150-450 The [facility] Comment on above: Performed By: #### CBC #### [facility] [address] [place] [address] Dr. Artem Rojas RBC 4.83 106/ul Normal 4.70-6.10 The [facility] Comment on above: Performed By: #### CBC #### [facility] [address] [place] [address] Dr. Artem Rojas WBC 9.0 103/ul Normal 4.0-11.0 The [facility] Comment on above: Performed By: #### CBC #### [facility] [address] [place] [address] Dr. Aretm Rojas PROF CHEM 8 (BAS METB)on Anion gap [Moles/Vol] 9.4 mmol/L Normal [facility] Comment on above: Performed By: #### PTT, PT #### [facility] [address] [place] [address] Dr. Artem Rojas Calcium [Mass/Vol] 9.4 mg/dL Normal 8.5-10.1 The [facility] Comment on above: Performed By: #### PTT, PT #### [facility] [address] [place] [address] Dr. Artem Rojas Chloride [Moles/Vol] 105 mmol/L Normal 98-107 The [facility] Comment on above: Performed By: #### PTT, PT #### [facility] [address] [place] [address] Dr. Artem Rojas CO2 [Moles/Vol] 29.3 mmol/L Normal 21.0-32.0 [facility] Comment on above: Performed By: #### PTT, PT #### [facility] [address] [place] [address] Dr. Artem Rojas Creatinine [Mass/Vol] 1.06 mg/dL Normal 0.70-1.30 [facility] Comment on above: Performed By: #### PTT, PT #### [facility] [address] [place] [address] Dr. Artem Rojas EGFR-AF WELSH >60 Normal >=60 The [facility] Comment on above: Performed By: #### PTT, PT #### [facility] [address] [place] [address] Dr. Artem Rojas EGFR-NON AF WELSH >60 Normal >=60 The [facility] Comment on above: Performed By: #### PTT, PT #### [facility] [address] [place] [address] Dr. Artem Rojas Glucose [Mass/Vol] 125 mg/dL Critically high 74-106 The [facility] Comment on above: Performed By: #### PTT, PT #### [facility] [address] [address] [address] Artem Rojas Potassium [Moles/Vol] 4.3 mmol/L Normal 3.5-5.1 The [facility] Comment on above: Performed By: #### PTT, PT #### [facility] [address] [place], [place] [address] Dr. Artem Rojas Sodium [Moles/Vol] 139 mmol/L Normal 136-145 The [facility] Comment on above: Performed By: #### PTT, PT #### [facility] [address] [address] [address] Artem Rojas Urea nitrogen [Mass/Vol] 20.0 mg/dL Critically high 7.0-18.0 [facility] Comment on above: Performed By: #### PTT, PT #### [facility] [address] [address] [address] Artem Rojas Urea nitrogen/Creatin ine [Mass ratio] 18.9 mg/mg Normal [facility] Comment on above: Performed By: #### PTT, PT #### [facility] [address] [address] [address] Artem Rojas Orders Onlyon 08-25-2022 Orders Only [id number] Jordin Landry Jr. 1940 Date Provider Department Center 08/25/2022 TROY RIBERA [facility] VAS [facility] UT Heart[facility]AS Family History Problem Relation Age of Onset Cancer Mother Family Status - Relation Status Age at Mother Normal [facility] Covid-19 PCR (CVDTB)on SARS-CoV-2 (COVID-19) RNA MONICA+probe Ql (Unsp spec) Not detected Normal NOT DETECTED [facility] Comment on above: Result Comment: When diagnostic [...] for this test is supported by the [place] of Health and Human Service's declaration that [...] Performed By: #### P TT, PT #### [facility] [address] [place] [address] Dr. Artem Rojas INFLUENZA A AND B AGon 08-20 INFLUANEGH SEE BELOW Normal [facility] Comment on above: Result Comment: Negative for Flu A prote in angiten. Infection due to Flu A cannot be ruled out. Flu A angiten in the sample may be below the detection limit of the test. Performed By: #### P TT, PT #### [facility] [address] [place] [address] Dr. Artem Rojas INFLUBNEGH SEE BELOW Normal [facility] Comment on above: Result Comment: Negative for Flu B prote in antigen. Infection due to Flu B cannot be ruled out. Flu B antigen in the sample may be below the detection limit of the test. Performed By: #### P TT, PT #### [facility] [address] [place] [address] Dr. Artem Rojas INFLUENZA A AG Negative Normal NEGATIVE SEE COMMENT [facility] Comment on above: Performed By: #### PTT, PT #### [facility] [address] [place] [address] Dr. Artem Rojas INFLUENZA B AG Negative Normal NEGATIVE SEE COMMENT The [facility] Comment on above: Performed By: #### PTT, PT #### [facility] [address] [place] [address] Dr. Artem Rojas INSULINon 07-31-2022 Insulin 16.3 uIU/mL Normal 2.6-24.9 The [facility] Comment on above: Performed By: #### PTT, PT #### [facility] [address] [place] [address] Dr. Artem Rojas BNPon 07-30-2022 Natriuretic peptide B (Bld) [Mass/Vol] 1826.0 pg/mL Critically high <=1,800.0 The [facility] Comment on above: Performed By: #### CMP, BNP, URIC, TSH, T7, LIPID #### [facility] [address] [place] [address] Dr. Artem Rojas CBC AUTO DIFFon 07-30-2022 BASO # 0.1 103/ul Normal 0.0-0.1 [facility] Comment on above: Performed By: #### PTT, PT #### [facility] [address] [place] [address] Dr. Artem Rojas Basophils/100 WBC (Bld) 1.0 % Normal 0.2-2.0 [facility] Comment on above: Performed By: #### PTT, PT #### [facility] [address] [place] [address] Dr. Artem Rojas EO # 0.2 103/ul Normal 0.0-0.7 [facility] Comment on above: Performed By: #### PTT, PT #### [facility] [address] [place] [address] Dr. Artem Rojas Eosinophils/100 WBC (Bld) 2.4 % Normal 0.9-7.0 [facility] Comment on above: Performed By: #### PTT, PT #### [facility] [address] [place] [address] Dr. Artem Rojas Erythrocyte distribution width (RBC) [Ratio] 13.8 % Normal 11.0-15.0 The [facility] Comment on above: Performed By: #### PTT, PT #### [facility] [address] [place] [address] Dr. Artem Rojas Hematocrit (Bld) [Volume fraction] 44.1 % Normal 42.0-54.0 The [facility] Comment on above: Performed By: #### PTT, PT #### [facility] [address] [place] [address] Dr. Artem Rojas Hemoglobin (Bld) [Mass/Vol] 14.5 g/dL Normal 14.0-18.0 The [facility] Comment on above: Performed By: #### PTT, PT #### [facility] [address] [place] [address] Dr. Artem Rojas IG # 0.02 10e3/ul Normal 0.00-0.03 [facility] Comment on above: Performed By: #### PTT, PT #### [facility] [address] [place] [address] Dr. Artem Rojas IG % 0.2 % Normal 0.0-0.5 [facility] Comment on above: Performed By: #### PTT, PT #### [facility] [address] [place] [address] Dr. Artem Rojas LYMPH # 2.1 103/ul Normal 1.2-3.8 [facility] Comment on above: Performed By: #### PTT, PT #### [facility] [address] [place] [address] Dr. Artem Rojas Lymphocytes/100 WBC (Bld) 24.3 % Normal 20.5-60.0 [facility] Comment on above: Performed By: #### PTT, PT #### [facility] [address] [place] [address] Dr. Artem Rojas MANUAL DIFF REQ NO Normal [facility] Comment on above: Performed By: #### PTT, PT #### [facility] [address] [place] [address] Dr. Artem Rojas MCH (RBC) [Entitic mass] 30.3 pg Normal 25.9-34.0 [facility] Comment on above: Performed By: #### PTT, PT #### [facility] [address] [place] [address] Dr. Artem Rojas MCHC (RBC) [Mass/Vol] 32.9 g/dL Normal 29.9-35.2 The [facility] Comment on above: Performed By: #### PTT, PT #### [facility] [address] [place] [address] Dr. Artem Rojas MCV (RBC) [Entitic vol] 92.1 fL Normal 80.0-94.0 [facility] Comment on above: Performed By: #### PTT, PT #### [facility] [address] [place] [address] Dr. Artem Rojas MONO # 0.8 103/ul Normal 0.3-0.8 [facility] Comment on above: Performed By: #### PTT, PT #### [facility] [address] [place] [address] Dr. Artem Rojas Monocytes/100 WBC (Bld) 9.0 % Normal 1.7-12.0 The [facility] Comment on above: Performed By: #### PTT, PT #### [facility] [address] [place] [address] Dr. Artem Rojas NEUT # 5.6 103/ul Normal 1.4-6.5 [facility] Comment on above: Performed By: #### PTT, PT #### [facility] [address] [place] [address] Dr. Artem Rojas Neutrophils/100 WBC (Bld) 63.1 % Normal 43.0-75.0 The [facility] Comment on above: Performed By: #### PTT, PT #### [facility] [address] [place] [address] Dr. Artem Rojas Platelet mean volume (Bld) [Entitic vol] 10.0 fL Normal 9.5-13.5 [facility] Comment on above: Performed By: #### PTT, PT #### [facility] [address] [place] [address] Dr. Artem Rojas PLT 193 103/ul Normal 150-450 The [facility] Comment on above: Performed By: #### PTT, PT #### [facility] [address] [place] [address] Dr. Artem Rojas RBC 4.79 106/ul Normal 4.70-6.10 The [facility] Comment on above: Performed By: #### PTT, PT #### [facility] [address] [place] [address] Dr. Artem Rojas WBC 8.8 103/ul Normal 4.0-11.0 The [facility] Comment on above: Performed By: #### PTT, PT #### [facility] [address] [place] [address] Dr. Artem Rojas FREE THYROXINE INDEX T7on FTI 2.52 Normal 1.30-4.50 [facility] Comment on above: Performed By: #### CMP, BNP, URIC, TSH, T7, LIPID #### [facility] [address] [place] [address] Dr. Artem Rojas T3U 35.0 % Normal 33.0-40.0 [facility] Comment on above: Performed By: #### CMP, BNP, URIC, TSH, T7, LIPID #### [facility] [address] [place] [address] Dr. Artem Rojas T4 [Mass/Vol] 7.20 ug/dL Normal 4.50-12.10 [facility] Comment on above: Performed By: #### CMP, BNP, URIC, TSH, T7, LIPID #### [facility] [address] [place] [address] Dr. Artem Rojas GLYCOHEMOGLOBIN A1Con 2022 ADA RECOMMENDATION SEE BELOW Normal [facility] Comment on above: Result Comment: ADA RECOMMENDED LIMIT 4. 0 - 6.0 ADA THERAPEUTIC TARGET < 7.0 ACTION SUGGESTED > 7.0 Performed By: #### A 1C #### [facility] [address] [place] [address] Dr. Artem Rojas Glucose [Mass/Vol] 128 mg/dL Normal [facility] Comment on above: Performed By: #### A1C #### [facility] [address] [place] [address] Dr. Artem Rojas HbA1c (Bld) [Mass fraction] 6.1 % Normal 4.5-6.2 [facility] Comment on above: Performed By: #### A1C #### [facility] [address] [place] [address] Dr. Artem Rojas LIPID PROFILEon 07-30-2022 CHOL-HDL RATIO NORM SEE BELOW Normal [facility] Comment on above: Result Comment: 3.3 - 4.4 LOW RISK 4.4 - 7.1 AVERAGE RISK 7.1 - 11.0 MODERATE RISK >11.0 HIGH RISK Performed By: #### C MP, BNP, URIC, TSH, T7, LIPID #### [facility] [address] [address] [address] Artem Rojas Cholesterol [Mass/Vol] 157 mg/dL Normal <=200 [facility] Comment on above: Performed By: #### CMP, BNP, URIC, TSH, T7, LIPID #### [facility] [address] [address] [address] Artem Rojas Cholesterol in HDL [Mass/Vol] 51 mg/dL Normal 40-60 The [facility] Comment on above: Performed By: #### CMP, BNP, URIC, TSH, T7, LIPID #### The [facility] [address] [address] [address] Artem Rojas Cholesterol in LDL [Mass/Vol] 86.6 mg/dL Normal [facility] Comment on above: Performed By: #### CMP, BNP, URIC, TSH, T7, LIPID #### [facility] [address] [address] [address] Artem Rojas Cholesterol.tota l/Cholesterol in HDL [Mass ratio] 3.1 {ratio} Normal [facility] Comment on above: Performed By: #### CMP, BNP, URIC, TSH, T7, LIPID #### [facility] [address] [address] [address] Artem Rojas HDL NORMAL > or = 60 mg/dl - LO W CARDIOVASCULAR RISK <40 mg/dl - HIGH CARDIOVASCULAR RISK Normal [facility] Comment on above: Performed By: #### CMP, BNP, URIC, TSH, T7, LIPID #### [facility] [address] [place] [address] Dr. Artem Rojas LDL CALC NORMAL SEE BELOW Normal The [facility] Comment on above: Result Comment: <100 mg/dl OPTIMAL 100 - 129 mg/dl NEAR OR ABOVE OPTIMAL 130 - 159 mg/dl BORDERLINE HIGH 160 - 189 mg/dl HIGH >190 mg/dl VERY HIGH Performed By: #### C MP, BNP, URIC, TSH, T7, LIPID #### [facility] [address] [address] [address] Artem Rojas Triglyceride [Mass/Vol] 97 mg/dL Normal <=150 [facility] Comment on above: Performed By: #### CMP, BNP, URIC, TSH, T7, LIPID #### [facility] [address] [place] [address] Dr. Artem Rojas VLDL CALC 19.4 mg/dL Normal [facility] Comment on above: Performed By: #### CMP, BNP, URIC, TSH, T7, LIPID #### [facility] [address] [place] [address] Dr. Artem Rojas PROF 14(COMP METB)on 023 Albumin [Mass/Vol] 3.5 g/dL Normal 3.4-5.0 [facility] Comment on above: Performed By: #### CMP, BNP, URIC, TSH, T7, LIPID #### [facility] [address] [place] [address] Dr. Artem Rojas Albumin/Globulin [Mass ratio] 1.1 {ratio} Normal [facility] Comment on above: Performed By: #### CMP, BNP, URIC, TSH, T7, LIPID #### [facility] [address] [place] [address] Dr. Artem Rojas ALP [Catalytic activity/Vol] 70 U/L Normal 46-116 [facility] Comment on above: Performed By: #### CMP, BNP, URIC, TSH, T7, LIPID #### [facility] [address] [place] [address] Dr. Artem Rojas ALT [Catalytic activity/Vol] 19 U/L Normal 16-63 [facility] Comment on above: Performed By: #### CMP, BNP, URIC, TSH, T7, LIPID #### [facility] [address] [place] [address] Dr. Artem Rojas Anion gap [Moles/Vol] 11.7 mmol/L Normal [facility] Comment on above: Performed By: #### CMP, BNP, URIC, TSH, T7, LIPID #### [facility] [address] [place] [address] Dr. Artem Rojas AST [Catalytic activity/Vol] 18 U/L Normal 15-37 [facility] Comment on above: Performed By: #### CMP, BNP, URIC, TSH, T7, LIPID #### [facility] [address] [place] [address] Dr. Artem Rojas Bilirubin [Mass/Vol] 0.5 mg/dL Normal 0.2-1.0 [facility] Comment on above: Performed By: #### CMP, BNP, URIC, TSH, T7, LIPID #### [facility] [address] [place] [address] Dr. Artem Rojas Calcium [Mass/Vol] 9.3 mg/dL Normal 8.5-10.1 The [facility] Comment on above: Performed By: #### CMP, BNP, URIC, TSH, T7, LIPID #### [facility] [address] [place] [address] Dr. Artem Rojas Chloride [Moles/Vol] 105 mmol/L Normal 98-107 The [facility] Comment on above: Performed By: #### CMP, BNP, URIC, TSH, T7, LIPID #### [facility] [address] [place] [address] Dr. Artem Rojas CO2 [Moles/Vol] 29.7 mmol/L Normal 21.0-32.0 The [facility] Comment on above: Performed By: #### CMP, BNP, URIC, TSH, T7, LIPID #### [facility] [address] [place] [address] Dr. Artem Rojas Creatinine [Mass/Vol] 0.87 mg/dL Normal 0.70-1.30 The [facility] Comment on above: Performed By: #### CMP, BNP, URIC, TSH, T7, LIPID #### [facility] [address] [place] [address] Dr. Artem Rojas EGFR-AF WELSH >60 Normal >=60 The [facility] Comment on above: Performed By: #### CMP, BNP, URIC, TSH, T7, LIPID #### [facility] [address] [place] [address] Dr. Artem Rojas EGFR-NON AF WELSH >60 Normal >=60 The [facility] Comment on above: Performed By: #### CMP, BNP, URIC, TSH, T7, LIPID #### [facility] [address] [address] [address] Artem Rojas Globulin (S) [Mass/Vol] 3.3 g/dL Normal The [facility] Comment on above: Performed By: #### CMP, BNP, URIC, TSH, T7, LIPID #### [facility] [address] [place] [address] Dr. Artem Rojas Glucose [Mass/Vol] 118 mg/dL Critically high 74-106 The [facility] Comment on above: Performed By: #### CMP, BNP, URIC, TSH, T7, LIPID #### [facility] [address] [place] [address] Dr. Artem Rojas Potassium [Moles/Vol] 4.4 mmol/L Normal 3.5-5.1 The [facility] Comment on above: Performed By: #### CMP, BNP, URIC, TSH, T7, LIPID #### [facility] [address] [place] [address] Dr. Artem Rojas Protein [Mass/Vol] 6.8 g/dL Normal 6.4-8.2 The [facility] Comment on above: Performed By: #### CMP, BNP, URIC, TSH, T7, LIPID #### [facility] [address] [place] [address] Dr. Artem Rojas Sodium [Moles/Vol] 142 mmol/L Normal 136-145 The [facility] Comment on above: Performed By: #### CMP, BNP, URIC, TSH, T7, LIPID #### [facility] [address] [place] [address] Dr. Artem Rojas Urea nitrogen [Mass/Vol] 19.0 mg/dL Critically high 7.0-18.0 The [facility] Comment on above: Performed By: #### CMP, BNP, URIC, TSH, T7, LIPID #### [facility] [address] [place] [address] Dr. Artem Rojas Urea nitrogen/Creatin ine [Mass ratio] 21.8 mg/mg Normal The [facility] Comment on above: Performed By: #### CMP, BNP, URIC, TSH, T7, LIPID #### [facility] [address] [place] [address] Dr. Artem Rojas TSHon 07-30-2022 TSH 1.773 uIU/mL Normal 0.358-3.740 [facility] Comment on above: Performed By: #### CMP, BNP, URIC, TSH, T7, LIPID #### [facility] [address] [place] [address] Dr. Artem Rojas URIC ACID SERUMon 07-30-2022 Urate [Mass/Vol] 5.8 mg/dL Normal 3.5-7.2 [facility] Comment on above: Performed By: #### CMP, BNP, URIC, TSH, T7, LIPID #### [facility] [address] [place] [address] Dr. Artem Rojas VITAMIN D 25 OHon 07-30-2022 VIT D 25-OH 65.5 ng/mL Normal [facility] Comment on above: Performed By: #### PTT, PT #### [facility] [address] [place] [address] Dr. Artem Rojas VIT D RANGES SEE BELOW Normal The [facility] Comment on above: Result Comment: <20 ng/mL Vit D deficien t 20 - <30 ng/mL Vit D insufficient 30 - 100 ng/mL Vit D sufficient >100 ng/mL Potential Toxicity Performed By: #### P TT, PT #### [facility] [address] [place] [address] Dr. Artem Rojas CBC AUTO DIFFon 03-02-2022 BASO # 0.1 103/ul Normal 0.0-0.1 [facility] Comment on above: Performed By: #### PTT, PT #### [facility] [address] [place] [address] Dr. Artem Rojas Basophils/100 WBC (Bld) 0.5 % Normal 0.2-2.0 The [facility] Comment on above: Performed By: #### PTT, PT #### [facility] [address] [place] [address] Dr. Artem Rojas EO # 0.0 103/ul Normal 0.0-0.7 [facility] Comment on above: Performed By: #### PTT, PT #### [facility] [address] [place] [address] Dr. Artem Rojas Eosinophils/100 WBC (Bld) 0.1 % Critically low 0.9-7.0 [facility] Comment on above: Performed By: #### PTT, PT #### [facility] [address] [place] [address] Dr. Artem Rojas Erythrocyte distribution width (RBC) [Ratio] 12.9 % Normal 11.0-15.0 [facility] Comment on above: Performed By: #### PTT, PT #### [facility] [address] [place] [address] Dr. Artem Rojas Hematocrit (Bld) [Volume fraction] 39.7 % Critically low 42.0-54.0 [facility] Comment on above: Performed By: #### PTT, PT #### [facility] [address] [place] [address] Dr. Artem Rojas Hemoglobin (Bld) [Mass/Vol] 13.1 g/dL Critically low 14.0-18.0 [facility] Comment on above: Performed By: #### PTT, PT #### [facility] [address] [place] [address] Dr. Artem Rojas IG # 0.05 10e3/ul Critically high 0.00-0.03 [facility] Comment on above: Performed By: #### PTT, PT #### [facility] [address] [place] [address] Dr. Artem Rojas IG % 0.4 % Normal 0.0-0.5 The [facility] Comment on above: Performed By: #### PTT, PT #### [facility] [address] [place] [address] Dr. Artem Rojas LYMPH # 0.8 103/ul Critically low 1.2-3.8 The [facility] Comment on above: Performed By: #### PTT, PT #### [facility] [address] [place] [address] Dr. Artem Rojas Lymphocytes/100 WBC (Bld) 5.7 % Critically low 20.5-60.0 [facility] Comment on above: Performed By: #### PTT, PT #### [facility] [address] [place] [address] Dr. Artem Rojas MANUAL DIFF REQ NO Normal The [facility] Comment on above: Performed By: #### PTT, PT #### [facility] [address] [place] [address] Dr. Artem Rojas MCH (RBC) [Entitic mass] 31.5 pg Normal 25.9-34.0 [facility] Comment on above: Performed By: #### PTT, PT #### [facility] [address] [place] [address] Dr. Artem Rojas MCHC (RBC) [Mass/Vol] 33.0 g/dL Normal 29.9-35.2 The [facility] Comment on above: Performed By: #### PTT, PT #### [facility] [address] [place] [address] Dr. Artem Rojas MCV (RBC) [Entitic vol] 95.4 fL Critically high 80.0-94.0 [facility] Comment on above: Performed By: #### PTT, PT #### [facility] [address] [place] [address] Dr. Artem Rojas MONO # 1.0 103/ul Critically high 0.3-0.8 [facility] Comment on above: Performed By: #### PTT, PT #### [facility] [address] [place] [address] Dr. Artem Rojas Monocytes/100 WBC (Bld) 7.4 % Normal 1.7-12.0 The [facility] Comment on above: Performed By: #### PTT, PT #### [facility] [address] [place] [address] Dr. Artem Rojas NEUT # 11.4 103/ul Critically high 1.4-6.5 The [facility] Comment on above: Performed By: #### PTT, PT #### [facility] [address] [place] [address] Dr. Artem Rojas Neutrophils/100 WBC (Bld) 85.9 % Critically high 43.0-75.0 The [facility] Comment on above: Performed By: #### PTT, PT #### [facility] [address] [place], [place] [address] Dr. Artem Rojas Platelet mean volume (Bld) [Entitic vol] 10.8 fL Normal 9.5-13.5 [facility] Comment on above: Performed By: #### PTT, PT #### [facility] [address] [place], [place] [address] Dr. Artem Rojas PLT 164 103/ul Normal 150-450 The [facility] Comment on above: Performed By: #### PTT, PT #### [facility] [address] [place], [place] [address] Dr. Artem Rojas RBC 4.16 106/ul Critically low 4.70-6.10 [facility] Comment on above: Performed By: #### PTT, PT #### [facility] [address] [address] [address] Artem Rojas WBC 13.2 103/ul Critically high 4.0-11.0 The [facility] Comment on above: Performed By: #### PTT, PT #### [facility] [address] [address] [address] Ro[address] CSPINE WO CONon [...] WILLIAM ARIAS Date: 2022-03-02 17:51 Normal The [facility] CT HEAD WO CONon 03-02-2022 CT HEAD [...] NISSA VIGIL Date: 2022-03-02 17:40 Normal The [facility] Covid-19 PCR (CVDTB)on 02-13 SARS-CoV-2 (COVID-19) RNA MONICA+probe Ql (Unsp spec) Not detected Normal NOT DETECTED The [facility] Comment on above: Result Comment: When diagnostic [...] for this test is supported by the [employer] and Human Service's declaration that [...] Performed By: #### P TT, PT #### [facility] [address] [place] [address] Dr. Artem Rojas GASTROCCULTon 03-02-2022 GASTROCCULT Positive Abnormal NEGATIVE [facility] Comment on above: Performed By: #### PTT, PT #### [facility] [address] [place] [address] Dr. Artem Rojas PH GASTRIC 2 Normal [facility] Comment on above: Performed By: #### PTT, PT #### [facility] [address] [place] [address] Dr. Artem Rojas PROF 14(COMP METB)on 022 Albumin [Mass/Vol] 3.6 g/dL Normal 3.4-5.0 [facility] Comment on above: Performed By: #### PTT, PT #### [facility] [address] [place] [address] Dr. Artem Rojas Albumin/Globulin [Mass ratio] 1.3 {ratio} Normal [facility] Comment on above: Performed By: #### PTT, PT #### [facility] [address] [place] [address] Dr. Artem Rojas ALP [Catalytic activity/Vol] 65 U/L Normal 46-116 [facility] Comment on above: Performed By: #### PTT, PT #### [facility] [address] [place] [address] Dr. Artem Rojas ALT [Catalytic activity/Vol] 12 U/L Critically low 16-63 [facility] Comment on above: Performed By: #### PTT, PT #### [facility] [address] [place] [address] Dr. Artem Rojas Anion gap [Moles/Vol] 12.8 mmol/L Normal [facility] Comment on above: Performed By: #### PTT, PT #### [facility] [address] [address] [address] Artem Rojas AST [Catalytic activity/Vol] 15 U/L Normal 15-37 [facility] Comment on above: Performed By: #### PTT, PT #### [facility] [address] [place] [address] Dr. Artem Rojas Bilirubin [Mass/Vol] 1.1 mg/dL Critically high 0.2-1.0 [facility] Comment on above: Performed By: #### PTT, PT #### [facility] [address] [place] [address] Dr. Artem Rojas Calcium [Mass/Vol] 9.0 mg/dL Normal 8.5-10.1 The [facility] Comment on above: Performed By: #### PTT, PT #### [facility] [address] [place] [address] Dr. Artem Rojas Chloride [Moles/Vol] 104 mmol/L Normal 98-107 The [facility] Comment on above: Performed By: #### PTT, PT #### [facility] [address] [place] [address] Dr. Artem Rojas CO2 [Moles/Vol] 25.8 mmol/L Normal 21.0-32.0 The [facility] Comment on above: Performed By: #### PTT, PT #### [facility] [address] [place] [address] Dr. Artem Rojas Creatinine [Mass/Vol] 1.06 mg/dL Normal 0.70-1.30 The [facility] Comment on above: Performed By: #### PTT, PT #### [facility] [address] [address] [address] Artem Rojas EGFR-AF WELSH >60 Normal >=60 The [facility] Comment on above: Performed By: #### PTT, PT #### [facility] [address] [address] [address] Artem Rojas EGFR-NON AF WELSH >60 Normal >=60 The [facility] Comment on above: Performed By: #### PTT, PT #### [facility] [address] [address] [address] Artem Rojas Globulin (S) [Mass/Vol] 2.8 g/dL Normal [facility] Comment on above: Performed By: #### PTT, PT #### [facility] [address] [place] [address] Dr. Artem Rojas Glucose [Mass/Vol] 104 mg/dL Normal 74-106 [facility] Comment on above: Performed By: #### PTT, PT #### [facility] [address] [place] [address] Dr. Artem Rojas Potassium [Moles/Vol] 4.6 mmol/L Normal 3.5-5.1 The [facility] Comment on above: Performed By: #### PTT, PT #### [facility] [address] [place] [address] Dr. Artem Rojas Protein [Mass/Vol] 6.4 g/dL Normal 6.4-8.2 The [facility] Comment on above: Performed By: #### PTT, PT #### [facility] [address] [place] [address] Dr. Artem Rojas Sodium [Moles/Vol] 138 mmol/L Normal 136-145 The [facility] Comment on above: Performed By: #### PTT, PT #### [facility] [address] [place] [address] Dr. Artem Rojas Urea nitrogen [Mass/Vol] 13.0 mg/dL Normal 7.0-18.0 The [facility] Comment on above: Performed By: #### PTT, PT #### [facility] [address] [place] [address] Dr. Artem Rojas Urea nitrogen/Creatin ine [Mass ratio] 12.3 mg/mg Normal The [facility] Comment on above: Performed By: #### PTT, PT #### [facility] [address] [place] [address] Dr. Artem Rojas PROTIMEon 03-02-2022 INR Coag (PPP) [Relative time] 1.23 {INR} Normal The [facility] Comment on above: Performed By: #### PTT, PT #### [facility] [address] [place] [address] Dr. Artem Rojas INR GUIDELINES SEE BELOW Normal [facility] Comment on above: Result Comment: DESIRED INR: 2.0 - 3.0 C ONDITIONS NOT LISTED BELOW 2.5 - 3.5 FOR PROSTHETIC HEART VALVE REPLACEMENT 2.5 - 3.5 RECURRENT THROMBOSIS Performed By: #### P TT, PT #### [facility] [address] [place] [address] Dr. Artem Rojas PT Coag (PPP) [Time] 13.1 s Critically high 9.0-11.6 [facility] Comment on above: Performed By: #### PTT, PT #### [facility] [address] [place] [address] Dr. Artem Rojas PTTon 03-02-2022 aPTT Coag (Bld) [Time] 28.5 s Normal 22.3-36.2 [facility] Comment on above: Performed By: #### PTT, PT #### [facility] [address] [place] [address] Dr. Artem Rojas XR KNEE RT 1_2 [...] MATTHEW CHADWICK Date: 2022-03-02 20:49 Normal The [facility] OVA AND PARASITE EXAMINATION on 01-18-2022 Ova + Parasite Exam Final report Normal The [facility] Comment on above: Result Comment: These results were obtai ricardo using wet preparation(s) and trichrome stained smear. This test does not include testing for Cryptosporidium parvum, Cyclospora, or Microsporidia. Performed By: #### P TT, PT #### [facility] [address] [place] [address] Dr. Artem Rojas Result 1 Comment Normal The [facility] Comment on above: Result Comment: No ova, cysts, or parasi alise seen. . One negative specimen does not rule out the possibility of a parasitic infection. Performed By: #### P TT, PT #### [facility] [address] [place] [address] Dr. Artem Rojas GI PANEL (PCR)on 01-14-2022 Adenovirus F 40/41 Not detected Normal NOT DETECTED The [facility] Comment on above: Performed By: #### PTT, PT #### [facility] [address] [place] [address] Dr. Artem Rojas Astrovirus Not detected Normal NOT DETECTED The [facility] Comment on above: Performed By: #### PTT, PT #### [facility] [address] [place] [address] Dr. Artem Rojas C. Diff toxin A/B Not detected Normal NOT DETECTED The [facility] Comment on above: Performed By: #### PTT, PT #### [facility] [address] [place] [address] Dr. Artem Rojas Campylobacter Not detected Normal NOT DETECTED The [facility] Comment on above: Performed By: #### PTT, PT #### [facility] [address] [place] [address] Dr. Artem Rojas Cryptosporidium Not detected Normal NOT DETECTED The [facility] Comment on above: Performed By: #### PTT, PT #### [facility] [address] [place] [address] Dr. Artem Rojas Cyclos. Cayetanensis Not detected Normal NOT DETECTED The [facility] Comment on above: Performed By: #### PTT, PT #### [facility] [address] [place] [address] Dr. Artem Rojas E. Coli O157 Not Applicable Normal Not Applicable The [facility] Comment on above: Performed By: #### PTT, PT #### [facility] [address] [place] [address] Dr. Artem Rojas E. histolytica Not detected Normal NOT DETECTED The [facility] Comment on above: Performed By: #### PTT, PT #### [facility] [address] [place] [address] Dr. Artem Rojas EAEC Not detected Normal NOT DETECTED The [facility] Comment on above: Performed By: #### PTT, PT #### [facility] [address] [place] [address] Dr. Artem Rojas EIEC Not detected Normal NOT DETECTED The [facility] Comment on above: Performed By: #### PTT, PT #### [facility] [address] [place] [address] Dr. Artem Rojas EPEC Not detected Normal NOT DETECTED The [facility] Comment on above: Performed By: #### PTT, PT #### [facility] [address] [place] [address] Dr. Artem Rojas ETEC Not detected Normal NOT DETECTED The [facility] Comment on above: Performed By: #### PTT, PT #### [facility] [address] [place] [address] Dr. Artem Rojas G. Lamblia Not detected Normal NOT DETECTED The [facility] Comment on above: Performed By: #### PTT, PT #### [facility] [address] [place] [address] Dr. Artem TSE CONTROLS PASSED Normal The [facility] Comment on above: Performed By: #### PTT, PT #### [facility] [address] [place] [address] Dr. Artem ROWENL TIA HEADER GI PANEL BACTERIA Normal T [facility] Comment on above: Performed By: #### PTT, PT #### [facility] [address] [address] [address] Artem ARELLANO ECOLI GI PANEL DIARRHEAGEN IC E.COLI / SHIGELLA Normal The [facility] Comment on above: Performed By: #### PTT, PT #### [facility] [address] [place] [address] Dr. Artem ARELLANO INFO SEE BELOW Normal The [facility] Comment on above: Result Comment: EAEC- Enteroaggregative E. Coli EPEC- Enteropathogenic E. Coli ETEC- Enterotoxigenic E. Coli lt/st STEC- Shigella-like toxin-producing E. Coli stx1/stx2 EIEC- Shigella/Enteroinvasive E. Coli Performed By: #### P TT, PT #### [facility] [address] [place] [address] Dr. Artem ARELLANO PARASITES GI PANEL PARASITES Normal The [facility] Comment on above: Performed By: #### PTT, PT #### [facility] [address] [place] [address] Dr. Artem ARELLANO VIRUS GI PANEL VIRUSES Normal The [facility] Comment on above: Performed By: #### PTT, PT #### [facility] [address] [place] [address] Dr. Artem Rojas Norovirus GI/GII Not detected Normal NOT DETECTED The [facility] Comment on above: Performed By: #### PTT, PT #### [facility] [address] [place] [address] Dr. Artem Rojas P. Shigelloides Not detected Normal NOT DETECTED The [facility] Comment on above: Performed By: #### PTT, PT #### [facility] [address] [address] [address] Artem Rojas Rotavirus A Not detected Normal NOT DETECTED The [facility] Comment on above: Performed By: #### PTT, PT #### [facility] [address] [place] [address] Dr. Artem Rojas Salmonella Not detected Normal NOT DETECTED The [facility] Comment on above: Performed By: #### PTT, PT #### [facility] [address] [place] [address] Dr. Artem Rojas Sapovirus Not detected Normal NOT DETECTED The [facility] Comment on above: Performed By: #### PTT, PT #### [facility] [address] [place] [address] Dr. Artem Rojas STEC Not detected Normal NOT DETECTED The [facility] Comment on above: Performed By: #### PTT, PT #### [facility] [address] [address] [address] Artem Rojas Vibrio Not detected Normal NOT DETECTED The [facility] Comment on above: Performed By: #### PTT, PT #### [facility] [address] [place] [address] Dr. Artem Rojas Vibrio Cholera Not detected Normal NOT DETECTED The [facility] Comment on above: Performed By: #### PTT, PT #### [facility] [address] [place] [address] Dr. Artem Rojas Y. Enterocolitica Not detected Normal NOT DETECTED The [facility] Comment on above: Performed By: #### PTT, PT #### [facility] [address] [place] [address] Dr. Artem Rojas Consultation Noteon 06-03-20 Consultation Note [id number]#1.00CD:127 Normal [facility] RAD - MISCon 06-03-2021 RAD - MISC [id number]#1.00CD:127 Normal [facility] Glucose Poct Glucometerson 0 01-10-2021 Glucose [Mass/Vol] 108 mg/dL Normal [facility] Comment on above: Result Comment: Random Glucose Reference Range is dependent on time and content of last meal. Glucose of more than 200 mg/dL in a nonstressed, ambulatory subject supports the diagnosis of Diabetes Mellitus. PERFORMED BY: [facility] [place] [place] [address] PATHOLOGIST BUSINESS LIBRARIAN SARY APARICIO M.D. Performed By: #### G SAMMIE #### Point of Care testing , [place] 01-10-2021 L Specimen: [id number] Received: 01/10/21 Status: WILFREDO Mckeon Num: [id number] Spec Type: Surgical Subm Dr: Shane Snell MD Tissues: A Colon - Polyp (CECUM) B Colon - Polyp (SIGMOID) Procedures: HE Stain/4, Gross/Micro L4/2 Patient Age/Sex Location Account Attending Physician Desean Landry JR 80/[facility] [id number] Shane Snell MD SPEC NUM: [id number] RECD: 01/10/21 STATUS: WILFREDO MCKEON NUM: [id number] MICAH: 01/10/21 DR: Shane Snell MD ENTERED: 01/10/21 [facility] DR: SPEC TYPE: Surgical DEPT: S [facility] BY: [id number] ORDERED: HE Stain/4, Gross/Micro L4/2 ORDERED: HE [...] Entirely submitted in one cassette labeled A1. (/) B. Received in formalin labeled with the [...] findings support the above pathologic diagnosis. Specimen: [id number] Received: 01/10/21 Status: WILFREDO Mckeon Num: [id number] Spec Type: Surgical Subm Dr: Shane Snell MD Tissues: A Colon - Polyp (CECUM) B Colon - Polyp (SIGMOID) Procedures: HE Stain/4, Gross/Micro L4/2 Patient: Desean Landry JR [id number] (Continued) Specimen: [id number] Received: 01/10/21 (Continued) Signed (signature on file) Randi Ji MD 01/11/21 1809 Specimen: [id number] Received: 01/10/21 Status: WILFREDO Mckeon Num: [id number] Spec Type: Surgical Subm Dr: Shane Snell MD Tissues: A Colon - Polyp (CECUM) B Colon - Polyp (SIGMOID) Procedures: HE Stain/4, Gross/Micro L4/2 Patient: Desean Landry JR [id number] (Continued) Specimen: [id number] Received: 01/10/21 (Continued) CPT Codes 00488?2 Specimen: Received: 01/10/21 Status: WILFREDO Mckeon Num: [id number] Spec Type: Surgical Subm Dr: Shane Snell MD Tissues: A Colon - Polyp (CECUM) B Colon - Polyp (SIGMOID) Procedures: JUDIE Stain/4, Gross/Micro L4/2 Patient: Desean Landry JR [id number] (Continued) Signed (signature on file) Randi Ji MD 01/11/21 1809 [facility] CNCOon 04-13-2018 CNCO Letter TextOctober 2017[address] [place], [place] [address]NSOR: Rocky Landry NO.: [id number] OF SERVICE: 04/06/2018Dept. of Pulmonary and Critical Care MedicineDear Mr. Landry,Attached please find a copy of your CAT scan chest report from March.Please contact me if I can contribute further in your health care management.Best regards.Yours sincerely,Cesar Rowley M.D., F.C.C.P.HC:Enclosure Normal [facility] CT CHEST WO IVCONon 04-06-[address] CHEST WO IVCON * * *Final Report* * *DATE OF EXAM: Apr 06 2018 12:50PM [facility] 0541 - CT CHEST WO [...] any questions regarding this interpretation, please call [phone].If you are unable to reach us at the number above,please feel free to contact [facility] eRadiology at [phone] ACN Normal [facility] PROGRESSon 04-06-2018 Protein mass conc HNO ID: [id number]: Venita Lr: (none)Author Type: (none)Type: Progress NotesFiled: 04/06/2018 12:57 PMNote Text: Radiology Service Progress NotePATIENT NAME: Desean LandryMRN: [id number] OF SERVICE: April 06, 2018TIME: 12:28 PMPATIENT IDENTITY VERIFICATION COMPLETED USING TWO (2) METHODS: Patientconfirmed name verbally and ID band matches..PATIENT GENDER DATA: MalePATIENT RELEVANT IMPLANT DATA REVIEWED: Not ApplicableRADIOLOGY DEPARTMENT: CT; Exam(s) Completed: ChestPERIPHERAL IV DATA: Not applicableSIGNED BY: Venita Lee 2017 12:28 PM Normal [facility] CNOVon 09-10-2017 CNOV Office Visit (PULMMN) SA SHAILA LANDRY ([id number]) 1940 MDate Time Provider Department09/10/17 9:55 AM CESAR ROWLEY During your visit today, we recorded the following information about you: Temperature Pulse Respiration Blood pressure 97.7 degrees 75/minute 18/minute 125/68 Weight Height 90.3 kg 1.753 Ritika Rowley MD 09/10/2017 12:26 PM SignedPULMONARY CLINICPATIENT NAME: Desean LandryMRN: [id number] CARE PHYSICIAN: Diogenes Casiano [facility] FAIRVIEWommunication will be sent via [place] mail or [...] No ronchi. No ralesCARDIAC: normal S1 and Y3ZUJXYVL: Abdomen soft.EXTREMETIES: No deformities. No LE edema. [...] [J98.11] Pleural calcification [J94.8]Order(s):CT CHEST WO IVCON [[id number]] Order #: [id number] FUTUREProblem List As Of Date: 09/10/2017(None)Disposition: Return in about 6 months (around 03/13/2018).Follow-up and Disposition History RecordedEncounter Number: [id number] Status:Closed by CESAR ROWLEY MD on 09/10/17 [facility] CT CHEST WO IVCONon 09-11-19 CT CHEST WO IVCON * * *Final Report* * *DATE OF EXAM: Sep 10 2017 9:05AM [facility] 0541 - CT CHEST WO IVCON / [...] 6 mm. Three-month imaging follow-up suggested for reevaluation.Laboratory Veterinarian: AMILCAR Transcribe Date/Time: Sep 10 2017 9:58ADictated by : CHRISTY MULTANI MDThis examination was interpreted and the report reviewed and electronically signed by: CHRISTY MULTANI MD on Sep 10 2017 2:48PM [id number] Normal [facility] PROGRESSon 09-10-2017 Protein mass conc HNO ID: [id number]: Cesar Claudiae: (none)Author Type: PhysicianType: Progress NotesFiled: 09/10/2017 12:26 PMNote Text:PULMONARY CLINICPATIENT NAME: Desean LandryMRN: [id number] CARE PHYSICIAN: Diogenes Casiano [facility] FAIRVIEWommunication will be sent via [place] mail or [...] wheezing. No ronchi. NoralesCARDIAC: normal S1 and S0HODWPRP: Abdomen soft.EXTREMETIES: No deformities. No LE edema. [...] MedicineDATE: September 10, 2017TIME: 9:30 AM Normal [facility] Protein mass conc HNO ID: [id number]: Srinath Purcell CTS (Ct)ervice: RadiologyAuthor Type: Clinical TechnicianType: Progress NotesFiled: 09/10/2017 9:03 AMNote Text: Radiology Service Progress NotePATIENT NAME: Desean LandryMRN: [id number] OF SERVICE: September 10, 2017TIME: 9:03 AMPATIENT IDENTITY VERIFICATION COMPLETED USING TWO (2) METHODS: Patientconfirmed name verbally and ID band matches..PATIENT GENDER DATA: MalePATIENT RELEVANT IMPLANT DATA REVIEWED: YesRADIOLOGY DEPARTMENT: CT; Exam(s) Completed: ChestPERIPHERAL IV DATA: Not applicableSIGNED BY: Srinath MANINDER HeathRomanabrett 2017 9:03 AM Normal [facility] HISTORY PHYSICALon 8 HISTORY PHYSICAL HNO ID: [id number] thor: Cesar Jose: (none)Author Type: PhysicianType: HANDPFiled: 07/23/2017 5:35 PMNote Text:PULMONARY CONSULTPATIENT NAME: Desean LandryMRN: [id number] FOR CONSULT: Pleural effusionREQUESTING PHYSICIAN: Diogenes Casiano [facility] CARE PHYSICIAN: Diogenes Casiano [facility] FAIRVIEWommunication will be sent via [place] mail or shared electronic medicalrecordsHISTORY OF PRESENT ILLNESS: Mr. 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 Unable to make his own medical decision.He lives by himself but currently admitted at a SNF. He has a legalguardian Blanca Sofia phone # [phone].In June he was found on the floor [...] evaluation anddecided to pursue further evaluation at [facility].Since hospital discharge, he has been at a [...] MedicineDATE: July 23, 2017TIME: 12:12 PM Normal [facility] PROGRESSon 07-23-2017 Protein mass conc HNO ID: [id number]: Colleen Ceballos RtService: (none)Author Type: (none)Type: Progress NotesFiled: 07/23/2017 11:16 AMNote Text: Radiology Service Progress NotePATIENT NAME: Desean LandryMRN: [id number] OF SERVICE: July 23, 2017TIME: 11:16 AMPATIENT IDENTITY VERIFICATION COMPLETED USING TWO (2) METHODS: Patientconfirmed name verbally and Date of .PATIENT GENDER DATA: MalePATIENT RELEVANT IMPLANT DATA REVIEWED: Not ApplicableRADIOLOGY DEPARTMENT: General X-ray: Exam(s) Completed: Chest X-RayPERIPHERAL IV DATA: Not applicableSIGNED BY: Colleen Ceballos RtFebruary 2017 11:16 AM Normal [facility] XR CHEST 2V FRONTAL/LATon XR CHEST 2V [...] ARMENTA MD on Jul 23 2017 3:24PM [id number] Normal [facility] HOSPon 07-21-2017 HOSP Patient:Desean Landry MRN: Height:No [...] basenames: K,HCTProgress Notes (RADIO GEN MAIN J):Colleen M Lin Rt 07/23/2017 11:16 AM Signed Radiology Service Progress NotePATIENT NAME: Desean LandryMRN: [id number] OF SERVICE: July 23, 2017TIME: 11:16 AMPATIENT IDENTITY VERIFICATION COMPLETED USING TWO (2) METHODS: Patientconfirmed name verbally and Date of .PATIENT GENDER DATA: MalePATIENT RELEVANT IMPLANT DATA REVIEWED: Not ApplicableRADIOLOGY DEPARTMENT: General X-ray: Exam(s) Completed: Chest X-RayPERIPHERAL IV DATA: Not applicableSIGNED BY: Colleen Ceballos RtFebruary 2017 11:16 AMProgress Notes (HOSP [facility] H23):Latoya Mohamud, RN, RN 07/22/2017 10:35 AM Signed07/22/2017: Navigator contacted [facility] ([phone]) toobtain recent labs. Behavioral Pediatrician will fax labs and medication list. Craig also have a copies of this sent with him to his appointments. Normal [facility] Cristhian 07-16-2017 FANNYN Telephone (PULMMN) SA SHAILA LANDRY ([id number]) 1940 MDate Time Provider Department07/16/17 CESAR ROWLEY During your visit today, we recorded the following information about you:Kristie Gonzalez 07/16/2017 2:35 PM Signedcxr report to FANNY.Italo Mora CNP 07/17/2017 12:47 PM SignedCXR 07/13/2017StableAllergies As of Date: 07/16/2017(No Known Allergies)Date Reviewed: 07/14/2017Reviewed by: Kim Walker (Fel) - Fully AssessedReason for Visit: Received Outside Medical Records [[id number]]Problem List As Of Date: 07/16/2017(None) Status:Closed by KRISTIE ANDRADE on 07/16/17 Normal [facility] BASIC METABOLIC PANELon Calcium 8.5 mg/dL Low 8.6-10.[address] [facility] Comment on above: Order Comment: No: Do not add to previou s draw Performed By: #### 4 1000, 64453, 95516, 45153, 58232 ####[facility] [place] [address], [facility] Chloride 104 mmol/L Normal 98-[address] [facility] Comment on above: Order Comment: No: Do not add to previou s draw Performed By: #### 4 1000, 63729, 68724, 83393, 33976 ####[facility] [place] [address], [facility] CO2 30 mmol/L Normal 21-[address] [facility] Comment on above: Order Comment: No: Do not add to previou s draw Performed By: #### 4 1000, 29502, 68185, 49149, 99739 ####[facility] [place] [address], [facility] Creatinine 0.94 mg/dL Normal 0.70-1.[address] [facility] Comment on above: Order Comment: No: Do not add to previou s draw Performed By: #### 4 1000, 76972, 14347, 78376, 72839 ####[facility] [place] [address], [facility] eGFR (black) mL/min/{1.73_m2} Normal >[address] [facility] Comment on above: Order Comment: No: Do not add to previou s draw Result Comment: Calc ulation may not be valid for patients over 70 years Performed By: #### 4 1000, 99444, 66070, 28859, 96835 ####[facility] eGFR (non-black) mL/min/{1.73_m2} Normal >[address] [facility] Comment on above: Order Comment: No: Do not add to previou s draw Result Comment: Calc ulation may not be valid for patients over 70 years Performed By: #### 4 1000, 87350, 24043, 50877, 66472 ####[facility] [facility] Glucose mass conc 98 mg/dL Normal 70-[address] [facility] Comment on above: Order Comment: No: Do not add to previou s draw Performed By: #### 4 1000, 31565, 23258, 55354, 22091 ####[place] [address] .[address] Potassium molar conc 4.3 mmol/L Normal 3.5-5.[address] [facility] Comment on above: Order Comment: No: Do not add to previou s draw Performed By: #### 4 1000, 14348, 20628, 72510, 73779 ####[place] [address] .[address] Sodium 141 mmol/L Normal 136-[address] [facility] Comment on above: Order Comment: No: Do not add to previou s draw Performed By: #### 4 1000, 35438, 68429, 82967, 08015 ####[place] [address] Urea nitrogen 17 mg/dL Normal 7-[address] [facility] Comment on above: Order Comment: No: Do not add to previou s draw Performed By: #### 4 1000, 91987, 83895, 93516, 69788 ####[facility] [place] [address], [facility] CBC W/DIFFon 06-20-2017 Basophils Auto #/vol (Bld) 0.5 % Normal 0.0-2.[address] [facility] Comment on above: Performed By: #### 90313, 32947, 96925, 59361, 96543 ####[facility] [place] [address], [facility] Eosinophils/100 leukocytes 3.6 % Normal 0.0-5.[address] [facility] Comment on above: Performed By: #### 66310, 81013, 06980, 29349, 41315 ####[facility] Erythrocyte distribution width Auto Ratio (RBC) 14.2 % Normal 11.5-16.[address] [facility] Comment on above: Performed By: #### 65442, 78926, 28079, 97995, 64601 ####[facility] [facility] Erythrocytes (RBC) 4.19 mill/mm3 Low 4.30-5.[address] [facility] Comment on above: Performed By: #### 96486, 69071, 25216, 34149, 98716 ####[facility] [facility] Hematocrit (HCT) 39.9 % Normal 39.0-55.[address] [facility] Comment on above: Performed By: #### 93233, 25544, 34117, 89679, 25216 ####[facility] Hemoglobin mass conc (Bld) 13.6 g/dL Low 13.9-16.[address] [facility] Comment on above: Performed By: #### 20784, 22675, 41816, 45527, 01302 ####[facility] [place] [address], [facility] Lymphocytes/100 leukocytes 15.7 % Low 20.0-40.[address] [facility] Comment on above: Performed By: #### 98811, 51644, 12194, 23819, 67598 ####[facility] [place] [address], [facility] MCH 32.4 pg High 24.0-32.[address] [facility] Comment on above: Performed By: #### 36823, 24006, 33753, 18838, 40172 ####[facility] MCHC mass conc (RBC) 34.0 g/dL Normal 32.0-36.[address] [facility] Comment on above: Performed By: #### 66541, 90117, 03982, 72989, 42215 ####[facility] [facility] MCV 95.3 fL Normal 80.0-100.[address] [facility] Comment on above: Performed By: #### 08377, 32701, 41100, 93557, 59990 ####[facility] [facility] [address], [facility] METHOD Normal RBC Morphology Normal The [facility] Comment on above: Performed By: #### 90424, 20939, 58559, 71572, 23853 ####[facility] MONOS 9.9 % High 2-[address] [facility] Comment on above: Performed By: #### 80311, 08289, 47107, 77951, 82017 ####[facility] [place] [address], [facility] Neutrophils/100 leukocytes 70.3 % High 50-[address] [facility] Comment on above: Performed By: #### 21202, 67413, 81712, 25610, 67390 ####[facility] [place] [address], [facility] PLAT CNT 193 Thou/mm3 Normal 100-400 [facility] Comment on above: Performed By: #### 40228, 21419, 83009, 12060, 75480 ####[facility] WBC (Leukocytes) 8.7 Thou/mm3 Normal 4.0-10.[address] [facility] Comment on above: Performed By: #### 45822, 41307, 04227, 70663, 97182 ####[facility] Discharge Summaryon 06-20-19 18 Discharge Summary MR#: [id number] [facility] Desean Land[facility] Admitted: 06/13/2017 Discharged: 06/20/2017 Date of : 1940 Physician: Diogenes Ren M.D. DISCHARGE SUMMARYPRIMARY DIAGNOSIS: Rhabdomyolysis secondary to prolonged immobilization.SECONDARY DIAGNOSES:1. History of atrial fibrillation.2. Right sided Posterior Calcified pleural plaques.3. Right-sided loculated pleural effusion.CONSULTS: CT Surgery, Pulmonary.PROCEDURES: None.SUMMARY OF HOSPITAL COURSE: Mr. Landry is a 76-year-old male, who presentedto [facility] ED with complaints of being found down for approximately 15 to 18hours. Per the patient, he was in usual state of health and last nightwhen woke to take his medications, his legs gave out and fell to the floor.Denies loss of consciousness but stated that he was so weak that he wasunable to get up. Eventually, EMS was contacted and brought the patient [facility]. Initial workup was notable for severe rhabdomyolysis,and the patient was transferred to [facility]. He has a past medical historysignificant for [...] not have a biopsy performed whilehospitalized at [facility].His CK and myoglobin continue to trend downward, and he was deemed stableat the time of discharge.He will need to follow up with Dr. Rowley at [facility] for continuedmanagement of his pleural effusions [...] continueto follow up with Dr. Rowley at [facility] for continued management ofthe pleural effusions [...] A Diogenes Ren M.D...Date Dict: 06/19/2017/05:47 P/Jarad Ayon, MDDate Trans: 06/20/2017 04:29 P/mmoDN_JN:[id number]: Diogenes Casiano M.D. [address] [facility] [address] Normal [address] [facility] MAGNESIUM BLOODon 06-20-2017 Magnesium 2.0 mg/dL Normal 1.9-2.[address] [facility] Comment on above: Order Comment: No: Do not add to previou s draw Performed By: #### 4 1000, 81987, 96875, 12204, 63332 ####[facility] [place] [address], [facility] PHOSPHORUS BLOODon 8 Phosphate 3.5 mg/dL Normal 2.5-5.[address] [facility] Comment on above: Order Comment: No: Do not add to previou s draw Performed By: #### 4 1000, 15460, 13837, 52548, 46195 ####[facility] [place] [address], [facility] BASIC METABOLIC PANELon Calcium 8.5 mg/dL Low 8.6-10.[address] [facility] Comment on above: Order Comment: No: Do not add to previou s draw Performed By: #### 4 1000, 15729, 41986, 47460, 54994 ####[facility] [place] [address], [place] Chloride 105 mmol/L Normal 98-[address] [facility] Comment on above: Order Comment: No: Do not add to previou s draw Performed By: #### 4 1000, 04999, 13423, 26059, 13567 ####[facility] [place] [address], [facility] CO2 26 mmol/L Normal 21-[address] [facility] Comment on above: Order Comment: No: Do not add to previou s draw Performed By: #### 4 1000, 85663, 21094, 72712, 15161 ####[facility] Creatinine 0.95 mg/dL Normal 0.70-1.[address] [facility] Comment on above: Order Comment: No: Do not add to previou s draw Performed By: #### 4 1000, 47133, 68271, 36826, 27632 ####[facility] eGFR (black) mL/min/{1.73_m2} Normal >[address] [facility] Comment on above: Order Comment: No: Do not add to previou s draw Result Comment: Calc ulation may not be valid for patients over 70 years Performed By: #### 4 1000, 87741, 33065, 68615, 18530 ####[facility] eGFR (non-black) mL/min/{1.73_m2} Normal >[address] [facility] Comment on above: Order Comment: No: Do not add to previou s draw Result Comment: Calc ulation may not be valid for patients over 70 years Performed By: #### 4 1000, 01371, 15884, 54464, 26889 ####[facility] Glucose mass conc 102 mg/dL High 70-[address] [facility] Comment on above: Order Comment: No: Do not add to previou s draw Performed By: #### 4 1000, 00021, 15095, 24892, 19124 ####[facility] [place] [address], [facility] Potassium molar conc 3.7 mmol/L Normal 3.5-5.[address] [facility] Comment on above: Order Comment: No: Do not add to previou s draw Performed By: #### 4 1000, 08788, 01593, 89680, 49590 ####[facility] Sodium 139 mmol/L Normal 136-[address] [facility] Comment on above: Order Comment: No: Do not add to previou s draw Performed By: #### 4 1000, 94822, 99355, 45323, 64977 ####[facility] Urea nitrogen 17 mg/dL Normal 7-[address] [facility] Comment on above: Order Comment: No: Do not add to previou s draw Performed By: #### 4 1000, 52155, 50842, 02961, 45334 ####[facility] CBC W/DIFFon 06-19-2017 Basophils Auto #/vol (Bld) 0.5 % Normal 0.0-2.[address] [facility] Comment on above: Order Comment: No: Do not add to previou s draw Performed By: #### 4 1000, 73315, 51660, 66919, 60827 ####[facility] Eosinophils/100 leukocytes 1.0 % Normal 0.0-5.[address] [facility] Comment on above: Order Comment: No: Do not add to previou s draw Performed By: #### 4 1000, 83053, 74963, 20956, 67864 ####[facility] Erythrocyte distribution width Auto Ratio (RBC) 13.7 % Normal 11.5-16.[address] [facility] Comment on above: Order Comment: No: Do not add to previou s draw Performed By: #### 4 1000, 44256, 35960, 06144, 59805 ####[facility] Erythrocytes (RBC) 4.33 mill/mm3 Normal 4.30-5.[address] [facility] Comment on above: Order Comment: No: Do not add to previou s draw Performed By: #### 4 1000, 32177, 22857, 72738, 81815 ####[facility] [facility] Hematocrit (HCT) 41.5 % Normal 39.0-55.[address] [facility] Comment on above: Order Comment: No: Do not add to previou s draw Performed By: #### 4 1000, 90504, 80834, 97161, 37291 ####[facility] Hemoglobin mass conc (Bld) 14.1 g/dL Normal 13.9-16.[address] [facility] Comment on above: Order Comment: No: Do not add to previou s draw Performed By: #### 4 1000, 57345, 08671, 74787, 01369 ####[facility] Lymphocytes/100 leukocytes 11.5 % Low 20.0-40.[address] [facility] Comment on above: Order Comment: No: Do not add to previou s draw Performed By: #### 4 1000, 70757, 39680, 52588, 79831 ####[facility] MCH 32.7 pg High 24.0-32.[address] [facility] Comment on above: Order Comment: No: Do not add to previou s draw Performed By: #### 4 1000, 83084, 32786, 40537, 01057 ####[facility] [facility] MCHC mass conc (RBC) 34.1 g/dL Normal 32.0-36.[address] [facility] Comment on above: Order Comment: No: Do not add to previou s draw Performed By: #### 4 1000, 07507, 76305, 73365, 76261 ####[facility] [place] [address], [facility] MCV 95.9 fL Normal 80.0-100.[address] [facility] Comment on above: Order Comment: No: Do not add to previou s draw Performed By: #### 4 1000, 00753, 12153, 88890, 18554 ####[facility] [place] [address], [facility] METHOD Normal RBC Morphology Normal [facility] Comment on above: Order Comment: No: Do not add to previou s draw Performed By: #### 4 1000, 96866, 86320, 30803, 92102 ####[facility] [place] [address], [facility] MONOS 11.9 % High 2-[address] [facility] Comment on above: Order Comment: No: Do not add to previou s draw Performed By: #### 4 1000, 40864, 77895, 01854, 24395 ####[facility] [place] [address], [facility] Neutrophils/100 leukocytes 75.1 % High 50-[address] [facility] Comment on above: Order Comment: No: Do not add to previou s draw Performed By: #### 4 1000, 62182, 78142, 91389, 16480 ####[facility] [place] [address], [place] PLAT CNT 192 Thou/mm3 Normal 100-[address] [facility] Comment on above: Order Comment: No: Do not add to previou s draw Performed By: #### 4 1000, 05850, 39800, 08616, 47773 ####[facility] [place] [address], [place] WBC (Leukocytes) 10.7 Thou/mm3 High 4.0-10.[address] [facility] Comment on above: Order Comment: No: Do not add to previou s draw Performed By: #### 4 1000, 42494, 08222, 43346, 22506 ####[facility] [place] [address], [facility] CPKon 06-19-2017 Creatine kinase (CK) 252 U/L High 30-[address] [facility] Comment on above: Performed By: #### 81368, 84721, 76752, 07552, 58321 ####[facility] [place] [address], [facility] MAGNESIUM BLOODon 06-19-2017 Magnesium 2.0 mg/dL Normal 1.9-2.[address] [facility] Comment on above: Order Comment: No: Do not add to previou s draw Performed By: #### 4 1000, 76583, 76573, 65767, 76372 ####[facility] [place] [address], [facility] MYOGLOBINon 06-19-2017 Myoglobin 213 ng/mL Critically high 0-[address] [facility] Comment on above: Result Comment: A DOUBLING OF VALUES FRO M SERIAL BLOOD COLLECTIONS(1 - 2 HOURS APART) IS MORE INDICATIVE OF A M.I.THAN THE ABSOLUTE VALUE. Performed By: #### 4 1000, 97442, 32647, 86823, 58874 ####[facility] [place] [address], [facility] PHOSPHORUS BLOODon 8 Phosphate 2.7 mg/dL Normal 2.5-5.[address] [facility] Comment on above: Order Comment: No: Do not add to previou s draw Performed By: #### 4 1000, 92217, 33233, 11556, 72547 ####[facility] [place] [address], [facility] ALBUMIN BLOODon 06-18-2017 Albumin 2.6 g/dL Low 3.5-5.[address] [facility] Comment on above: Performed By: #### 43653, 09674, 23604, 92345, 43286 ####[facility] BASIC METABOLIC PANELon 01-0 Calcium 8.4 mg/dL Low 8.6-10.[address] [facility] Comment on above: Order Comment: No: Do not add to previou s draw Performed By: #### 5 0608 ####[facility] [place] [address], [facility] Chloride 106 mmol/L Normal 98-[address] [facility] Comment on above: Order Comment: No: Do not add to previou s draw Performed By: #### 5 0608 ####[facility] CO2 25 mmol/L Normal 21-[address] [facility] Comment on above: Order Comment: No: Do not add to previou s draw Performed By: #### 5 0608 ####[facility] Creatinine 0.93 mg/dL Normal 0.70-1.[address] [facility] Comment on above: Order Comment: No: Do not add to previou s draw Performed By: #### 5 0608 ####[facility] eGFR (black) mL/min/{1.73_m2} Normal >[address] [facility] Comment on above: Order Comment: No: Do not add to previou s draw Result Comment: Calc ulation may not be valid for patients over 70 years Performed By: #### 5 0608 ####[facility] eGFR (non-black) mL/min/{1.73_m2} Normal >[address] [facility] Comment on above: Order Comment: No: Do not add to previou s draw Result Comment: Calc ulation may not be valid for patients over 70 years Performed By: #### 5 0608 ####[facility] [place] [address], [facility] Glucose mass conc 106 mg/dL High 70-[address] [facility] Comment on above: Order Comment: No: Do not add to previou s draw Performed By: #### 5 0608 ####[facility] [facility] Potassium molar conc 3.4 mmol/L Low 3.5-5.[address] [facility] Comment on above: Order Comment: No: Do not add to previou s draw Performed By: #### 5 0608 ####[facility] Sodium 137 mmol/L Normal 136-[address] [facility] Comment on above: Order Comment: No: Do not add to previou s draw Performed By: #### 5 0608 ####[facility] Urea nitrogen 21 mg/dL Normal 7-[address] [facility] Comment on above: Order Comment: No: Do not add to previou s draw Performed By: #### 5 0608 ####[facility] CBC W/DIFFon 06-18-2017 Basophils Auto #/vol (Bld) 0.9 % Normal 0.0-2.[address] [facility] Comment on above: Order Comment: No: Do not add to previou s draw Performed By: #### 5 0608 ####[facility] [place] [address], [facility] Eosinophils/100 leukocytes 2.3 % Normal 0.0-5.[address] [facility] Comment on above: Order Comment: No: Do not add to previou s draw Performed By: #### 5 0608 ####[facility] Erythrocyte distribution width Auto Ratio (RBC) 13.6 % Normal 11.5-16.[address] [facility] Comment on above: Order Comment: No: Do not add to previou s draw Performed By: #### 5 0608 ####[facility] Erythrocytes (RBC) 4.37 mill/mm3 Normal 4.30-5.[address] [facility] Comment on above: Order Comment: No: Do not add to previou s draw Performed By: #### 5 0608 ####[facility] Hematocrit (HCT) 42.0 % Normal 39.0-55.[address] [facility] Comment on above: Order Comment: No: Do not add to previou s draw Performed By: #### 5 0608 ####[facility] Hemoglobin mass conc (Bld) 14.2 g/dL Normal 13.9-16.[address] [facility] Comment on above: Order Comment: No: Do not add to previou s draw Performed By: #### 5 0608 ####[facility] [place] [address], [facility] Lymphocytes/100 leukocytes 15.2 % Low 20.0-40.[address] [facility] Comment on above: Order Comment: No: Do not add to previou s draw Performed By: #### 5 0608 ####[facility] [place] [address], [facility] MCH 32.5 pg High 24.0-32.[address] [facility] Comment on above: Order Comment: No: Do not add to previou s draw Performed By: #### 5 0608 ####[facility] MCHC mass conc (RBC) 33.8 g/dL Normal 32.0-36.[address] [facility] Comment on above: Order Comment: No: Do not add to previou s draw Performed By: #### 5 0608 ####[facility] [place] [address], [facility] MCV 96.1 fL Normal 80.0-100.[address] [facility] Comment on above: Order Comment: No: Do not add to previou s draw Performed By: #### 5 0608 ####[facility] [place] [address], [facility] METHOD Normal RBC Morphology Normal [facility] Comment on above: Order Comment: No: Do not add to previou s draw Performed By: #### 5 0608 ####[facility] [place] [address], [facility] MONOS 11.8 % High 2-[address] [facility] Comment on above: Order Comment: No: Do not add to previou s draw Performed By: #### 5 0608 ####[facility] [place] [address], [facility] Neutrophils/100 leukocytes 69.8 % Normal 50-[address] [facility] Comment on above: Order Comment: No: Do not add to previou s draw Performed By: #### 5 0608 ####[facility] [place] [address], [facility] PLAT CNT 168 Thou/mm3 Normal 100-[address] [facility] Comment on above: Order Comment: No: Do not add to previou s draw Performed By: #### 5 0608 ####[facility] [place] [address], [facility] WBC (Leukocytes) 10.8 Thou/mm3 High 4.0-10.[address] [facility] Comment on above: Order Comment: No: Do not add to previou s draw Performed By: #### 5 0608 ####[facility] CPKon 06-18-2017 Creatine kinase (CK) 586 U/L High 30-[address] [facility] Comment on above: Performed By: #### 81230, 63173, 14952, 41996, 52861 ####[facility] MAGNESIUM BLOODon 06-18-2017 Magnesium 1.9 mg/dL Normal 1.9-2.[address] [facility] Comment on above: Order Comment: No: Do not add to previou s draw Performed By: #### 5 0608 ####[facility] MYOGLOBINon 06-18-2017 Myoglobin 353 ng/mL Critically high 0-[address] [facility] Comment on above: Result Comment: A DOUBLING OF VALUES FRO M SERIAL BLOOD COLLECTIONS(1 - 2 HOURS APART) IS MORE INDICATIVE OF A M.I.THAN THE ABSOLUTE VALUE. Performed By: #### 4 1000, 87242, 00675, 87071, 75278 ####[facility] [place] [address], [facility] PHOSPHORUS BLOODon 8 Phosphate 3.7 mg/dL Normal 2.5-5.[address] [facility] Comment on above: Order Comment: No: Do not add to previou s draw Performed By: #### 5 0608 ####[facility] [place] [address], [facility] BASIC METABOLIC PANELon Calcium 8.4 mg/dL Low 8.6-10.[address] [facility] Comment on above: Order Comment: No: Do not add to previou s draw Performed By: #### 5 0608 ####[facility] [place] [address], [facility] Chloride 110 mmol/L High 98-[address] [facility] Comment on above: Order Comment: No: Do not add to previou s draw Performed By: #### 5 0608 ####[facility] [place] [address], [facility] CO2 25 mmol/L Normal 21-[address] [facility] Comment on above: Order Comment: No: Do not add to previou s draw Performed By: #### 5 0608 ####[facility] [place] [address], [facility] Creatinine 0.95 mg/dL Normal 0.70-1.[address] [facility] Comment on above: Order Comment: No: Do not add to previou s draw Performed By: #### 5 0608 ####[facility] eGFR (black) mL/min/{1.73_m2} Normal >[address] [facility] Comment on above: Order Comment: No: Do not add to previou s draw Result Comment: Calc ulation may not be valid for patients over 70 years Performed By: #### 5 0608 ####[facility] [place] [address], [facility] eGFR (non-black) mL/min/{1.73_m2} Normal >[address] [facility] Comment on above: Order Comment: No: Do not add to previou s draw Result Comment: Calc ulation may not be valid for patients over 70 years Performed By: #### 5 0608 ####[facility] [place] [address], [facility] Glucose mass conc 107 mg/dL High 70-[address] [facility] Comment on above: Order Comment: No: Do not add to previou s draw Performed By: #### 5 0608 ####[facility] Potassium molar conc 3.5 mmol/L Normal 3.5-5.[address] [facility] Comment on above: Order Comment: No: Do not add to previou s draw Performed By: #### 5 0608 ####[facility] Sodium 141 mmol/L Normal 136-[address] [facility] Comment on above: Order Comment: No: Do not add to previou s draw Performed By: #### 5 0608 ####[facility] Urea nitrogen 23 mg/dL Normal 7-[address] [facility] Comment on above: Order Comment: No: Do not add to previou s draw Performed By: #### 5 0608 ####[facility] CBC COMPLETE BLOOD COUNTon 0 - Erythrocyte distribution width Auto Ratio (RBC) 13.7 % Normal 11.5-16.[address] [facility] Comment on above: Order Comment: No: Do not add to previou s draw Performed By: #### 5 0608 ####[facility] Erythrocytes (RBC) 4.45 mill/mm3 Normal 4.30-5.[address] [facility] Comment on above: Order Comment: No: Do not add to previou s draw Performed By: #### 5 0608 ####[facility] Hematocrit (HCT) 42.9 % Normal 39.0-55.[address] [facility] Comment on above: Order Comment: No: Do not add to previou s draw Performed By: #### 5 0608 ####[facility] Hemoglobin mass conc (Bld) 14.3 g/dL Normal 13.9-16.[address] [facility] Comment on above: Order Comment: No: Do not add to previou s draw Performed By: #### 5 0608 ####[facility] MCH 32.1 pg High 24.0-32.[address] [facility] Comment on above: Order Comment: No: Do not add to previou s draw Performed By: #### 5 0608 ####[facility] MCHC mass conc (RBC) 33.3 g/dL Normal 32.0-36.[address] [facility] Comment on above: Order Comment: No: Do not add to previou s draw Performed By: #### 5 0608 ####[facility] MCV 96.3 fL Normal 80.0-100.[address] [facility] Comment on above: Order Comment: No: Do not add to previou s draw Performed By: #### 5 0608 ####[facility] PLAT CNT 138 Thou/mm3 Normal 100-[address] [facility] Comment on above: Order Comment: No: Do not add to previou s draw Performed By: #### 5 0608 ####[facility] WBC (Leukocytes) 10.7 Thou/mm3 High 4.0-10.[address] [facility] Comment on above: Order Comment: No: Do not add to previou s draw Performed By: #### 5 0608 ####[facility] [place] [address] MYOGLOBINon 06-17-2017 Myoglobin 700 ng/mL Critically high 0-[address] [facility] Comment on above: Result Comment: A DOUBLING OF VALUES FRO M SERIAL BLOOD COLLECTIONS(1 - 2 HOURS APART) IS MORE INDICATIVE OF A M.I.THAN THE ABSOLUTE VALUE. Performed By: #### 5 0608 ####[address] LUMBAR SPINE WO CONTRA STon 06-16-[address] LUMBAR SPINE WO CONTRAST [facility] [id number] [place] [id number] Patient Name: DESEAN LANDRY : 1940ex: MAge: Race: WhiteMRN: [id number]. Location: [id number] Status: IVisit #: [id number] Date: 06/16/2017 10:45:00 AMCompleted Date: 06/16/2017 11:31 AMRequesting Provider: NADEEN SALCEDO Attending Provider: NADEEN SALCEDO Report Copy To: Signs & Symptoms: Back Pain (specify level)History: Patient history not availableComments: R/O Fractures, If Other selected, state reason for examExam: 3D CT LUMBAR SPINE WO CONTRASTAccession #: [id number] 3D CT LUMBAR SPINE WO CONTRAST 06/16/2017 [...] findings. Electronically signed by:Srinath Meyer. Transcribed by: [email or web address], User Resident: PAOLA WOLFElectronically Signed by: SRINATH MEYER @ 06/16/2017 12:13 PMI personally read this/these film(s) with this resident Normal [facility] Comment on above: Order Comment: No: Do not add to previou s draw 3D CT THORACIC SPINE WO CONT RASTon 06-16-[address] THORACIC SPINE WO CONTRAST [facility] [address] [place] [address] Patient Name: DESEAN LANDRY : 3Sex: MAge: Race: WhiteMRN: [id number]. Location: [id number] Status: IVisit #: [id number] Date: 06/16/2017 10:45:00 AMCompleted Date: 06/16/2017 11:32 AMRequesting Provider: NADEEN SALCEDO Attending Provider: NADEEN SALCEDO Report Copy To: Signs & Symptoms: Back Pain (specify level)History: Patient history not availableComments: R/O Fractures, History of Fall and c/o Back Pain. Rule out fractureExam: 3D CT THORACIC SPINE WO CONTRASTAccession #: [id number] 3D CT THORACIC SPINE WO CONTRAST 06/16/2017 [...] findings. Electronically signed by:Srinath Meyer. Transcribed by: [email or web address], User Resident: CAN HARRISElectronically Signed by: SRINATH MEYER @ 06/16/2017 12:03 PMI personally read this/these film(s) with this resident Normal [facility] Comment on above: Order Comment: No: Do not add to previou s draw BASIC METABOLIC PANELon Calcium 7.9 mg/dL Low 8.6-10.[address] [facility] Comment on above: Order Comment: No: Do not add to previou s draw Performed By: #### 0 0071, 13469 ####[facility] [place] [address], [facility] Chloride 112 mmol/L High 98-[address] [facility] Comment on above: Order Comment: No: Do not add to previou s draw Performed By: #### 0 0071, 24275 ####[facility] [place] [address], [facility] CO2 22 mmol/L Normal 21-[address] [facility] Comment on above: Order Comment: No: Do not add to previou s draw Performed By: #### 0 0071, 78576 ####[facility] [place] [address], [facility] Creatinine 1.05 mg/dL Normal 0.70-1.[address] [facility] Comment on above: Order Comment: No: Do not add to previou s draw Performed By: #### 0 0071, 64946 ####[facility] eGFR (black) mL/min/{1.73_m2} Normal >[address] [facility] Comment on above: Order Comment: No: Do not add to previou s draw Result Comment: Calc ulation may not be valid for patients over 70 years Performed By: #### 0 0071, 68758 ####[facility] eGFR (non-black) mL/min/{1.73_m2} Normal >[address] [facility] Comment on above: Order Comment: No: Do not add to previou s draw Result Comment: Calc ulation may not be valid for patients over 70 years Performed By: #### 0 0071, 76381 ####[facility] [place] [address], [facility] Glucose mass conc 102 mg/dL High 70-[address] [facility] Comment on above: Order Comment: No: Do not add to previou s draw Performed By: #### 0 0071, 60912 ####[facility] [place] [address], [facility] Potassium molar conc 4.0 mmol/L Normal 3.5-5.[address] [facility] Comment on above: Order Comment: No: Do not add to previou s draw Performed By: #### 0 0071, 68493 ####[facility] [place] [address], [facility] Sodium 139 mmol/L Normal 136-[address] [facility] Comment on above: Order Comment: No: Do not add to previou s draw Performed By: #### 0 0071, 52522 ####[facility] [place] [address], [facility] Urea nitrogen 20 mg/dL Normal 7-[address] [facility] Comment on above: Order Comment: No: Do not add to previou s draw Performed By: #### 0 0071, 24144 ####[facility] [place] [address], [facility] BNP (B-TYPE NATRIURETIC PEPT DEANNE)on 01-02-2018 BNP 1298 pg/mL High 0-[address] [facility] Comment on above: Order Comment: No: Do not add to previou s draw Result Comment: Give n the appropriate clinical setting a BNP result of >100 pg/mLindicates congestive heart failure. Performed By: #### 5 0608 ####[facility] CBC COMPLETE BLOOD COUNTon 0 06-16-2017 Erythrocyte distribution width Auto Ratio (RBC) 13.7 % Normal 11.5-16.[address] [facility] Comment on above: Order Comment: No: Do not add to previou s draw Performed By: #### 0 0071, 75401 ####[facility] Erythrocytes (RBC) 4.24 mill/mm3 Low 4.30-5.[address] [facility] Comment on above: Order Comment: No: Do not add to previou s draw Performed By: #### 0 0071, 31776 ####[facility] Hematocrit (HCT) 40.7 % Normal 39.0-55.[address] [facility] Comment on above: Order Comment: No: Do not add to previou s draw Performed By: #### 0 0071, 79572 ####[facility] Hemoglobin mass conc (Bld) 13.6 g/dL Low 13.9-16.[address] [facility] Comment on above: Order Comment: No: Do not add to previou s draw Performed By: #### 0 0071, 87677 ####[facility] MCH 32.1 pg High 24.0-32.[address] [facility] Comment on above: Order Comment: No: Do not add to previou s draw Performed By: #### 0 0071, 91978 ####[facility] MCHC mass conc (RBC) 33.4 g/dL Normal 32.0-36.[address] [facility] Comment on above: Order Comment: No: Do not add to previou s draw Performed By: #### 0 0071, 84934 ####[facility] MCV 96.1 fL Normal 80.0-100.[address] [facility] Comment on above: Order Comment: No: Do not add to previou s draw Performed By: #### 0 0071, 27835 ####[facility] PLAT CNT 120 Thou/mm3 Normal 100-[address] [facility] Comment on above: Order Comment: No: Do not add to previou s draw Performed By: #### 0 0071, 23534 ####[facility] WBC (Leukocytes) 10.3 Thou/mm3 High 4.0-10.[address] [facility] Comment on above: Order Comment: No: Do not add to previou s draw Performed By: #### 0 0071, 75171 ####[facility] CPKon 06-16-2017 Creatine kinase (CK) 2950 U/L Critically high 30-[address] [facility] Comment on above: Performed By: #### 23566, 63133 ####[facility] CR-PORTABLE CHEST 1 VIEW IMP Emeli 06-16-2017 CR-PORTABLE CHEST 1 VIEW IMPORT Images were obtained outside of [facility] [id number] Normal [facility] CT CHEST WO CONTRASTon 06-16 CT CHEST WO CONTRAST [facility] [address] [place] [address] Patient Name: DESEAN LANDRY : 2Sex: MAge: Race: WhiteMRN: [id number]. Location: [id number] Status: IVisit #: [id number] Date: 06/16/2017 5:25:00 PMCompleted Date: 06/16/2017 06:06 PMRequesting Provider: RAFFAELE GARCIA Attending Provider: NADEEN SALCEDO Report Copy To: Signs & Symptoms: Shortness of BreathHistory: Patient history not availableComments: R/O Pleural Effusion, please comment about pleural effusionExam: CT CHEST WO CONTRASTAccession #: [id number] CT CHEST WO CONTRAST 06/16/2017 6:06 PM [...] findings. Electronically signed by:Xiomara Christine. Transcribed by: [email or web address], User Resident: SUNITHA CAMACHOElectronically Signed by: XIOMARA CHRISTINE @ 06/17/2017 01:24 PMI personally read this/these film(s) with this resident Normal [facility] Comment on above: Order Comment: No: Do not add to previou s draw CT-3D CT LUMBAR SPINE WO CON TRAST IMPORTon 06-16-2017 CT-3D CT LUMBAR SPINE WO CONTRAST IMPORT Images were obtained outside of [facility] [id number] Normal [facility] CT-3D CT THORACIC SPINE WO C ONTRAST IMPORTon 06-16-2017 CT-3D CT THORACIC SPINE WO CONTRAST IMPORT Images were obtained outside of [facility] [id number] Normal [facility] CT-CT CHEST WO CONTRAST IMPO RTon 06-16-2017 CT-CT CHEST WO CONTRAST IMPORT Images were obtained outside of [facility] [id number] Normal [facility] MYOGLOBINon 06-16-2017 Myoglobin 872 ng/mL Critically high 0-[address] [facility] Comment on above: Result Comment: A DOUBLING OF VALUES FRO M SERIAL BLOOD COLLECTIONS(1 - 2 HOURS APART) IS MORE INDICATIVE OF A M.I.THAN THE ABSOLUTE VALUE. Performed By: #### 0 0071, 65778 ####[facility] [place] [address] PORTABLE CHEST 1 VIEWon PORTABLE CHEST [address] [facility] Center[facility] [address] [place] [address] Patient Name: DESEAN LANDRY : 1940ex: MAge: Race: WhiteMRN: [id number]. Location: [id number] Status: IVisit #: [id number] Date: 06/16/2017 12:50:00 PMCompleted Date: 06/16/2017 01:22 PMRequesting Provider: NADEEN SALCEDO Attending Provider: NADEEN SALCEDO Report Copy To: Signs & Symptoms: O2 DesaturationHistory: Patient history not availableComments: R/O AspirationExam: PORTABLE CHEST 1 VIEWAccession #: [id number] PORTABLE CHEST 1 VIEW 06/16/2017 1:22 PM [...] chest. Electronically signed by:Srinath Meyer. Transcribed by: [email or web address], User Resident: Electronically Signed by: SRINATH MEYER @ 06/16/2017 01:25 PM Normal [facility] Comment on above: Order Comment: No: Do not add to previou s draw PROTHROMBIN TIMEon 8 INR Coag RelTime (PPP) 1.51 {INR} High 0.91-1.[address] [facility] Comment on above: Order Comment: No: Do [...] OF ACTION, CLINICALEFFECTIVENESS, AND OPTIMAL THERAPEUTIC RANGE. [id number]. Performed By: #### 5 0608 ####[facility] Prothrombin time (PT) Coag time (PPP) 18.4 s High 12.3-14.[address] [facility] Comment on above: Order Comment: No: Do not add to previou s draw Result Comment: ALL RESULTS MUST BE INTERPRETED WITH RESPECT TO BLOOD DRAWING ARTIFACTOR DILUTION ERROR OF ANTICOAGULANT AT THE TIME OF SAMPLING. Performed By: #### 5 0608 ####[facility] BASIC METABOLIC PANELon 01-0 Calcium 8.0 mg/dL Low 8.6-10.[address] [facility] Comment on above: Order Comment: No: Do not add to previou s draw Performed By: #### 0 0071, 01127, 17483, 80832 ####[facility] Chloride 109 mmol/L High 98-[address] [facility] Comment on above: Order Comment: No: Do not add to previou s draw Performed By: #### 0 0071, 54969, 21315, 02681 ####[facility] [place] [address], [facility] CO2 21 mmol/L Normal 21-[address] [facility] Comment on above: Order Comment: No: Do not add to previou s draw Performed By: #### 0 0071, 52417, 03419, 38974 ####[facility] [place] [address], [facility] Creatinine 1.15 mg/dL Normal 0.70-1.[address] [facility] Comment on above: Order Comment: No: Do not add to previou s draw Performed By: #### 0 0071, 35004, 67264, 31442 ####[facility] [place] [address], [facility] eGFR (black) mL/min/{1.73_m2} Normal >[address] [facility] Comment on above: Order Comment: No: Do not add to previou s draw Result Comment: Calc ulation may not be valid for patients over 70 years Performed By: #### 0 0071, 66930, 03381, 09603 ####[facility] [place] [address], [facility] eGFR (non-black) mL/min/{1.73_m2} Normal >[address] [facility] Comment on above: Order Comment: No: Do not add to previou s draw Result Comment: Calc ulation may not be valid for patients over 70 years Performed By: #### 0 0071, 40838, 40258, 88202 ####[facility] [place] [address], [facility] Glucose mass conc 117 mg/dL High 70-[address] [facility] Comment on above: Order Comment: No: Do not add to previou s draw Performed By: #### 0 0071, 30646, 29236, 59104 ####[facility] [place] [address], [facility] Potassium molar conc 3.9 mmol/L Normal 3.5-5.[address] [facility] Comment on above: Order Comment: No: Do not add to previou s draw Performed By: #### 0 0071, 18084, 55060, 33343 ####[facility] [place] [address], [facility] Sodium 138 mmol/L Normal 136-[address] [facility] Comment on above: Order Comment: No: Do not add to previou s draw Performed By: #### 0 0071, 35421, 57303, 42796 ####[facility] [place] [address], [facility] Urea nitrogen 23 mg/dL Normal 7-[address] [facility] Comment on above: Order Comment: No: Do not add to previou s draw Performed By: #### 0 0071, 57688, 45135, 78646 ####[facility] CBC COMPLETE BLOOD COUNTon 0 06-15-2017 Erythrocyte distribution width Auto Ratio (RBC) 13.7 % Normal 11.5-16.[address] [facility] Comment on above: Order Comment: No: Do not add to previou s draw Performed By: #### 5 0608 ####[facility] [facility].[address] Erythrocytes (RBC) 4.44 mill/mm3 Normal 4.30-5.[address] [facility] Comment on above: Order Comment: No: Do not add to previou s draw Performed By: #### 5 0608 ####[facility] [facility] Hematocrit (HCT) 42.7 % Normal 39.0-55.[address] [facility] Comment on above: Order Comment: No: Do not add to previou s draw Performed By: #### 5 0608 ####[place] [id number] [address] Hemoglobin mass conc (Bld) 14.5 g/dL Normal 13.9-16.[address] [facility] Comment on above: Order Comment: No: Do not add to previou s draw Performed By: #### 5 0608 ####[facility] [facility].[address] MCH 32.7 pg High 24.0-32.[address] [facility] Comment on above: Order Comment: No: Do not add to previou s draw Performed By: #### 5 0608 ####[facility] [place] [address], [facility] MCHC mass conc (RBC) 34.0 g/dL Normal 32.0-36.[address] [facility] Comment on above: Order Comment: No: Do not add to previou s draw Performed By: #### 5 0608 ####[facility] [facility] MCV 96.1 fL Normal 80.0-100.[address] [facility] Comment on above: Order Comment: No: Do not add to previou s draw Performed By: #### 5 0608 ####[facility] [facility].[address] PLAT CNT 134 Thou/mm3 Normal 100-[address] [facility] Comment on above: Order Comment: No: Do not add to previou s draw Performed By: #### 5 0608 ####[facility] WBC (Leukocytes) 11.3 Thou/mm3 High 4.0-10.[address] [facility] Comment on above: Order Comment: No: Do not add to previou s draw Performed By: #### 5 0608 ####[facility] CPKon 06-15-2017 Creatine kinase (CK) 7925 U/L Critically high 30-[address] [facility] Comment on above: Order Comment: No: Do not add to previou s draw Performed By: #### 0 0071, 04909 ####[facility] MAGNESIUM BLOODon 06-15-2017 Magnesium 2.4 mg/dL Normal 1.9-2.[address] [facility] Comment on above: Performed By: #### 81904, 85602 ####[facility] [place] [address], [facility] PHOSPHORUS BLOODon 8 Phosphate 2.6 mg/dL Normal 2.5-5.[address] [facility] Comment on above: Performed By: #### 22645, 48691 ####[facility] [place] [address], [facility] BASIC METABOLIC PANELon 12-3 Calcium 8.3 mg/dL Low 8.6-10.[address] [facility] Comment on above: Order Comment: No: Do not add to previou s draw Performed By: #### 4 1000, 09811, 83643, 06768, 20056 ####[facility] [place] [address], [facility] Chloride 107 mmol/L Normal 98-[address] [facility] Comment on above: Order Comment: No: Do not add to previou s draw Performed By: #### 4 1000, 64559, 59563, 97900, 63438 ####[facility] [place] [address], [facility] CO2 23 mmol/L Normal 21-[address] [facility] Comment on above: Order Comment: No: Do not add to previou s draw Performed By: #### 4 1000, 86946, 82959, 48462, 09632 ####[facility] [place] [address], [facility] Creatinine 1.25 mg/dL Normal 0.70-1.[address] [facility] Comment on above: Order Comment: No: Do not add to previou s draw Performed By: #### 4 1000, 47253, 78222, 53262, 21299 ####[facility] [place] [address], [facility] eGFR (black) mL/min/{1.73_m2} Normal >[address] [facility] Comment on above: Order Comment: No: Do not add to previou s draw Result Comment: Calc ulation may not be valid for patients over 70 years Performed By: #### 4 1000, 07165, 36073, 28457, 22768 ####[facility] eGFR (non-black) 56 ml/min/1.73sq m Abnormal >[address] [facility] Comment on above: Order Comment: No: Do not add to previou s draw Result Comment: Calc ulation may not be valid for patients over 70 years Performed By: #### 4 1000, 78623, 54369, 95044, 35657 ####[facility] Glucose mass conc 109 mg/dL High 70-[address] [facility] Comment on above: Order Comment: No: Do not add to previou s draw Performed By: #### 4 1000, 80869, 27712, 37382, 43241 ####[facility] [place] [address], [facility] Potassium molar conc 4.3 mmol/L Normal 3.5-5.[address] [facility] Comment on above: Order Comment: No: Do not add to previou s draw Performed By: #### 4 1000, 90902, 26148, 50685, 78869 ####[facility] [place] [address], [facility] Sodium 136 mmol/L Normal 136-[address] [facility] Comment on above: Order Comment: No: Do not add to previou s draw Performed By: #### 4 1000, 69619, 51471, 87705, 33575 ####[facility] Urea nitrogen 25 mg/dL Normal 7-[address] [facility] Comment on above: Order Comment: No: Do not add to previou s draw Performed By: #### 4 1000, 05940, 84268, 04077, 32814 ####[facility] [place] [address], [facility] CBC COMPLETE BLOOD COUNTon Erythrocyte distribution width Auto Ratio (RBC) 13.8 % Normal 11.5-16.[address] [facility] Comment on above: Order Comment: No: Do not add to previou s draw Performed By: #### 5 0608 ####[facility] [place] [address], [facility] Erythrocytes (RBC) 4.83 mill/mm3 Normal 4.30-5.[address] [facility] Comment on above: Order Comment: No: Do not add to previou s draw Performed By: #### 5 0608 ####[facility] [place] [address], [facility] Hematocrit (HCT) 46.7 % Normal 39.0-55.[address] [facility] Comment on above: Order Comment: No: Do not add to previou s draw Performed By: #### 5 0608 ####[facility] [place] [address], [facility] Hemoglobin mass conc (Bld) 15.8 g/dL Normal 13.9-16.[address] [facility] Comment on above: Order Comment: No: Do not add to previou s draw Performed By: #### 5 0608 ####[facility] [place] [address], [facility] MCH 32.7 pg High 24.0-32.[address] [facility] Comment on above: Order Comment: No: Do not add to previou s draw Performed By: #### 5 0608 ####[facility] [place] [address], [facility] MCHC mass conc (RBC) 33.9 g/dL Normal 32.0-36.[address] [facility] Comment on above: Order Comment: No: Do not add to previou s draw Performed By: #### 5 0608 ####[facility] [place] [address], [facility] MCV 96.6 fL Normal 80.0-100.[address] [facility] Comment on above: Order Comment: No: Do not add to previou s draw Performed By: #### 5 0608 ####[facility] [place] [address], [facility] PLAT CNT 135 Thou/mm3 Normal 100-[address] [facility] Comment on above: Order Comment: No: Do not add to previou s draw Performed By: #### 5 0608 ####[facility] [place] [address], [facility] WBC (Leukocytes) 15.7 Thou/mm3 High 4.0-10.[address] [facility] Comment on above: Order Comment: No: Do not add to previou s draw Performed By: #### 5 0608 ####[facility] CPKon 06-14-2017 Creatine kinase (CK) 27587 U/L Critically high 30-[address] [facility] Comment on above: Performed By: #### 99030, 48737, 80013, 84736, 67223 ####[facility] MAGNESIUM BLOODon 06-14-2017 Magnesium 2.8 mg/dL High 1.9-2.[address] [facility] Comment on above: Order Comment: No: Do not add to previou s draw Performed By: #### 4 1000, 54854, 15077, 62892, 70212 ####[facility] [place] [address], [facility] PHOSPHORUS BLOODon 7 Phosphate 3.3 mg/dL Normal 2.5-5.[address] [facility] Comment on above: Order Comment: No: Do not add to previou s draw Performed By: #### 4 1000, 36824, 32996, 46472, 26646 ####[facility] [place] [address], [facility] TSHon 06-14-2017 Thyroid stimulating hormone (TSH) 2.65 MICRO-IU/ML Normal 0.34-5.[address] [facility] Comment on above: Performed By: #### 42025, 14801, 52664, 58823, 89357 ####[facility] BASIC METABOLIC PANELon 12-3 Calcium 8.4 mg/dL Low 8.6-10.[address] [facility] Comment on above: Order Comment: No: Do not add to previou s draw Performed By: #### 0 0071, 79813 ####[facility] [place] [address], [facility] Chloride 105 mmol/L Normal 98-[address] [facility] Comment on above: Order Comment: No: Do not add to previou s draw Performed By: #### 0 0071, 76888 ####[facility] [place] [address], [facility] CO2 26 mmol/L Normal 21-[address] [facility] Comment on above: Order Comment: No: Do not add to previou s draw Performed By: #### 0 0071, 76812 ####[facility] [place] [address], [facility] Creatinine 1.26 mg/dL Normal 0.70-1.[address] [facility] Comment on above: Order Comment: No: Do not add to previou s draw Performed By: #### 0 0071, 71817 ####[facility] [place] [address], [facility] eGFR (black) mL/min/{1.73_m2} Normal >[address] [facility] Comment on above: Order Comment: No: Do not add to previou s draw Result Comment: Calc ulation may not be valid for patients over 70 years Performed By: #### 0 0071, 01897 ####[facility] [place] [address], [facility] eGFR (non-black) 56 ml/min/1.73sq m Abnormal >[address] [facility] Comment on above: Order Comment: No: Do not add to previou s draw Result Comment: Calc ulation may not be valid for patients over 70 years Performed By: #### 0 0071, 22607 ####[facility] [place] [address], [facility] Glucose mass conc 106 mg/dL High 70-[address] [facility] Comment on above: Order Comment: No: Do not add to previou s draw Performed By: #### 0 0071, [id number] ####[facility] [place] [address], [facility] Potassium molar conc 4.8 mmol/L Normal 3.5-5.[address] [facility] Comment on above: Order Comment: No: Do not add to previou s draw Performed By: #### 0 0071, [id number] ####[facility] [place] [address], [facility] Sodium 138 mmol/L Normal 136-[address] [facility] Comment on above: Order Comment: No: Do not add to previou s draw Performed By: #### 0 0071, [id number] ####[facility] [place] [address], [facility] Urea nitrogen 23 mg/dL Normal 7-[address] [facility] Comment on above: Order Comment: No: Do not add to previou s draw Performed By: #### 0 0071, [id number] ####[facility] [place] [address], [facility] CPKon 06-13-2017 Creatine kinase (CK) 57330 U/L Critically high 30-[address] [facility] Comment on above: Order Comment: No: Do not add to previou s draw Performed By: #### 0 0071, [id number] ####[facility] [id number] History and Physicalon 06-13 History and Physical [id number] Name[facility] Desean Landry Admitted: 06/13/2017 Date of : 1940 Attending Physician: Arpan Camacho MD Room #: [id number] Discharge Date: HISTORY AND PHYSICALPRIMARY CARE PHYSICIAN: [...] activated and the patient was brought to thehospital for further evaluation and management.The patient presented to the [facility] Emergency Department. Overthere, the patient had initial workup revealed severe rhabdomyolysis, sothe patient was referred to the [facility] for further evaluationand management. Denying any chest [...] Dict: 06/13/2017/06:07 P/Mariangel Hayes Trans: 06/13/2017 06:38 P/[id number] Normal [facility] Encounters Encounter Date Encounter Type Care Provider Facility Start: 02-18-2023 End: 02-18-2023 ambulatory DRAGAN PEPPER [facility] Start: 12-05-2022 End: 12-05-2022 ambulatory AYDE WAGONER [facility] Start: 09-10-2022 End: 09-10-2022 ambulatory MYAH RUSSELL [facility] Start: 09-02-2022 Evaluation and management of inpatient [facility] Start: 09-01-2022 Evaluation and management of inpatient [facility] Start: 09-01-2022 ambulatory [facility] Start: 09-01-2022 End: 09-02-2022 Evaluation and management of inpatient [facility] Start: 08-26-2022 End: 08-27-[address] DIOGENES CASIANO . Facility: Start: 08-20-2022 End: 08-20-[address] DIOGENES CASIANO . Facility: Start: 07-30-2022 End: 07-31-[address] DIOGENES CASIANO . Facility:[facility] Start: 03-02-2022 End: 03-03-[address] SRINATH MCKEON Facility: Start: 02-19-2022 End: 02-20-[address] DIOGENES CASIANO . Facility: Start: 01-15-2022 End: 01-16-[address] DIOGENES CASIANO . Facility: Start: 04-06-2018 End: 04-06-2018 Patient encounter procedure CESAR ROWLEY [facility] Start: 09-10-2017 End: 09-11-2017 Patient encounter procedure CESAR ROWLEY [facility] Start: 07-23-2017 End: 07-24-2017 Patient encounter procedure CESAR ROWLEY [facility] Start: 07-23-2017 End: 07-23-2017 Patient encounter procedure KALEB SANDOVAL [facility] Start: 06-13-2017 End: 06-20-2017 Evaluation and management of inpatient ARPAN FRANK Facility:[facility] Procedures Date Procedure Procedure Detail Performing Clinician Start: 07-30-[address] YUAN CASIANO . Comment on above: Performed By: #### P TT, PT #### [facility] [address] [address] [address] Artem Rojas Payers Date Payer Category Payer [employer] ( and others) [id number] 1958 Medicare [id number] 1940 Unknown [id number] 1940 Unknown [id number] 1940 Unknown [id number] 1940 Unknown [id number] 1940 Unknown [id number] 1940 Unknown [id number] Medicare [id number] Progress note 02-18-2023 Note Date & Type Note Facility 02-18-2023 Note ID Cardiology - [facility] Subjective Desean Landry Jr. is [...] normal ventricular function, fixed inferior defect (prior [place] vs. artifact), normal wall motion, no ischemia. [...] Update 07/08/2017: He was admitted recently to [facility] after falling and having rhabdomyolysis. He was [...] on (more content not included)... [facility] Progress note 12-05-2022 Note Date & Type Note Facility 12-05-2022 Note ID Cardiology Consul t Note Reason for visit: [...] is accompanied today by his power of state attorney. He is tolerating his DOAC with no [...] Friends and Family: Twice a week Attends [employer] Services: More than 4 times per year [...] snorin (more content not included)... [facility] Progress note 12-05-2022 Note Date & Type Note Facility 12-05-2022 Note Review of Systems All other systems reviewed and are negative. [facility] Progress note 09-10-2022 Note Date & Type Note Facility 09-10-2022 Note Patient seen for wou nd check s/p [employer] pacemaker placement on 09/01/2022 for AF [...] BID x7 days. Prescription sent. [facility] Progress note 09-02-2022 Note Date & Type [...] OTM concerns at this time. [facility] Progress note 09-02-2022 Note Date & Type Note Facility 09-02-2022 Note Social Work Act English Tutor jaspreet et with patient to discuss dc [...] OTM needs at this time. [facility] Procedure note 09-01-2022 Note Date & Type Note Facility 09-01-2022 Note SINGLE CHAMBER PACEM JULIUS IMPLANT PROCEDURE NOTE DATE OF PROCEDURE: 09/01/2022 PERFORMING PHYSICIAN: Dr. Damian Wolf CATH LAB TECHNOLOGIST: Dr.Chandramohan Camarillo CONSENT: Patient/POA LOCATION: EP Lab PROCEDURE PERFORMED: 1. Implantation of single chamber PPM ([employer]) 2. Ultrasound guided venous access INDICATIONS: [...] using modified seldinger technique using a 5 Swedish micropunture needle with ultrasound guidance with some difficulty. 0.35??? wire was placed. Local infiltration of 1% Lidocaine was performed, and an incision was created in the left upper chest with prior incision extended. Dissection was then performed using cautery down to the fascial plane above the muscle. Gentle dissection was performed, and a small pocket was made enough for the device. 6 Swedish Safe sheath was placed over the wire. An active fixation [employer] pacing lead was then delivered through the 6Fsheath to the right ventricle. After confirmation of lead position on orthogonal views ([place] and [place]) to confirm septal position, the screw was activated, and the lead was placed in the right ventricular mid cavity towards the septum. After confirmation of good sensing parameters, injury pattern and pacing thresholds, 10V pacing was done and no diaphragmatic stimulation was noted. It was then secured in the pocket using three 1-0 silk sutures. A [employer] pacemaker generator was then burped with [...] week. Damian Wolf Cardiac Electrophysiology [facility] Clinical Note 09-01-2022 Note Date & Type Note Facility 09-01-2022 Note Patient: Desean crowley Jr. Procedure Information Date/Time: 09/01/22 1330 Procedure: Implant PPM Location: [facility] FIELD TRAFFIC INVESTIGATOR 1 / [facility] (Cath) Providers: Damian Wolf MD Clinical information reviewed: Tobacco Allergies Meds Med Hx Surg Hx Fam Hx Physical Exam Airway Mallampati: II TM distance: >3 FB Neck ROM: full Cardiovascular Dental Pulmonary Abdominal Anesthesia Plan ASA 2 CSE Anesthetic plan and risks discussed with patient and healthcare power of state attorney. Use of blood products discussed with patient who. Additional Equipment Requests [facility] Summary Purpose Family History No Family History [...] section and content) DATE CREATED AUTHOR 12/08/2017 [facility] DATE CREATED AUTHOR AUTHOR'S ORGANIZ ATION 05/18/2018 [facility] DATE CREATED AUTHOR AUTHOR'S ORGANIZ ATION 01/16/2021 [facility] DATE CREATED AUTHOR AUTHOR'S ORGANIZ ATION 06/06/2021 [facility] DATE CREATED AUTHOR AUTHOR'S ORGANIZ ATION 09/02/[address] [facility] DATE CREATED AUTHOR AUTHOR'S ORGANIZ ATION 08/24/[address] [facility] FOR RECORDS PERTAINING TO PATIENTS WHO [...] BE BASED ON THE PRIMARY CLINICAL RECORDS. [email or web address] provides no warranty or guarantee of the accuracy or completeness of information in this document.
== END 2023-11-13 13:01 | disposition home or self-care (01) ==
LOC: CT 13:00
PROVIDERS: PCP Family Medicine; Visit Provider Family Medicine
DX: R47.1 Dysarthria and anarthria (principal)
CPT/HCPCS: 70450; 93880

== ENCOUNTER 2024-01-12 10:08 | Inpatient (IN) | payer MEDICARE, MEDICAID, SELFPAY ==
[2024-01-12] VITALS (9 sets, daily range): BP systolic 123–148; BP diastolic 65–82; PULSE 60–64; TEMP 36.4–36.8; O2SAT 96–99; BMI 26.4; BMI 28.4
--- NOTE | 2024-01-12 | US_ITS ---
The [address] [address] Patient Name: DESEAN LANDRY MRN: [id number] date: 1940 Sex: M Assigned Patient Location: ED.MAIN Current Patient Location: Accession/Order Number: [id number] Exam Date: 01/12/2024 10:30 Report Date: 01/12/2024 11:31 At the request of: CAMACHO PATEL Procedure: US venous doppler LE LT Ultrasound venous duplex scan left lower extremity CLINICAL: Left leg swelling for 4 days TECHNIQUE: Agustin-scale, color Doppler and Duplex examination of the left lower extremity was performed with and without provocative maneuvers. FINDINGS: Comparison: None. Sonographic examination of the left lower extremity deep venous system to include the common femoral, superficial femoral and popliteal veins, demonstrates normal compressibility, color-flow, respiratory variation, and augmentation. The origin of the greater saphenous vein demonstrates normal compression, and there is normal color-flow in the proximal profunda femoral vein. There is normal compressibility in the peroneal, posterior tibial, and anterior tibial veins. There is subcutaneous edema in the left calf. US/US venous doppler LE LT IMPRESSION: 1. No deep venous thrombosis in the left lower extremity. 2. Subcutaneous edema left calf. Electronically authenticated by: LAUAR ESPINAL Date: 01/12/2024 11:31
--- OUTSIDE RECORDS SUMMARY | 2024-01-12 10:19 | XMS_ITS | CCD ---
Author Organization [facility] Care Team Providers Care Management Lead Name Role Phone ARPAN CAMACHO Unavailable Unavailable SAHRA GILMORE Unavailable Unavailable HOY DIOGENES Unavailable Unavailable GAIL RENLAS Unavailable Unavailable LORI, RENDELL Unavailable Unavailable LORI, RENDELL Unavailable Unavailable LOY MORAHEL (MACHINE PACK ASSEMBLER) Unavailable Unavailable LORI, RENDELL Unavailable Unavailable LORI, [...] HOY ., DR SHETTY Consulting Unavailable [place] Romero, DR SHETTY Primary Care Unavailable DAMIAN WOLF [...] Unavailable BRAXTONY ., DR SHETTY Admitting Unavailable HOMartin ., DR SHETTY Attending Unavailable [place] ., [...] care home (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; Translations: [WAISTBAND SETTER (CURRENT) USE OF ANTICOAGULANTS] Onset: 06-13-2017 Episodic Other aftercare (1 source) care home (current) use of oral hypoglycemic drugs; Translations: [WAISTBAND SETTER USE ORAL HYPOGLYCEMIC DX] Onset: 03-04-2022 Episodic Other aftercare (1 source) Other jail (current) drug therapy; Translations: [OTH WAISTBAND SETTER CURRENT DRUG THERAPY] Onset: 03-04-2022 Episodic Other [...] Range Facility Orders Onlyon 08-19-2023 Orders Only [id number] Jordin Landry Jr. 1940 Date Provider Department Center 08/19/2023 241DAMIAN VITALE [facility] ERIKA Whitaker Family History Problem Relation Age of Onset Cancer Mother Family Status - Relation Status Age at Mother Normal [facility] Office Visiton 02-18-2023 Follow-up visit [id number] Jordin Landry Jr. 1940 M Date Provider Department Center 02/18/2023 DRAGAN BALDWIN [facility] Family History Problem Relation Age of Onset Cancer Mother Family Status - Relation Status Age at Mother Level of Service:12447 [place] OFFICE/OUTPATIENT ESTABLISHED LOW MDM 20-29 MIN Reason for Visit and Comments: Follow-up [829333] - Pt is here f/U [facility] Office Visiton 12-05-2022 Follow-up visit [id number] Jordin Landry Jr. 1940 M Date Provider Department [place] 12/05/2022 AYDE ZHENG ERIKA Guillen Family History Problem Relation Age of Onset Cancer Mother Family Status - Relation Status Age at Mother Level of Service:69654 [place] OFFICE/OUTPATIENT ESTABLISHED MOD MDM 30-39 MIN Reason for Visit and Comments: Follow-up [244691] - Pt is her for 3 month F/U [facility] Office Visiton 09-10-2022 Follow-up visit [id number] Jordin Landry Jr. 1940 Date Provider Department [place] 09/10/2022 MYAH COLLINS [facility] Family History Problem Relation Age of Onset Cancer Mother Family Status - Relation Status Age at Mother Level of Service:73517 [place] POSTOP FOLLOW UP VISIT RELATED TO ORIGINAL PX [facility] 30on 09-02-2022 30 The patient is Moder ately Unstable - Medium risk of patient condition declining or worsening The patient's goals for the shift include Pain Control The clinical goals for the shift include stable vs [facility] 30 The patient is Moder ately [...] DAILY: Assess and document skin integrity Normal [facility] DSon 09-02-2022 DS Admission Admitted [...] Provider Department Center 12/05/2022 11:00 AM Ayde Wagonre NP [facility] Test Results Pending At Discharge none Normal [facility] NURSNOTEon 09-02-2022 NURSNOTE AVS reviewed with nikole gordon and guardizaid Gaspar. No questions or concerns at this time. AVS signed by guardian. Copy of AVS placed in bedside chart. Normal [facility] NURSNOTE RN spoke to Chasity (guardian) in regards to DC orders. Chasity is able to pick patient up around 1700 today. Patient is aware. 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 He is tolerating his DOAC with no [...] Neck: suppl (more content not included)... Normal [facility] Electrophysiology Consult Note Reason for visit: [facility] HPI: Desean Landry is a 81 y.o. 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 He is tolerating his DOAC with no [...] done per protocol for PPM implant. Normal [facility] Orders Onlyon 09-01-2022 Orders Only [id number] Jordin Landry meghna Crawford Jr. 1940 M Date Provider Department Center 09/01/2022 RANCHO DENIS [facility] VASC [facility] [place] [facility] Family History Problem Relation Age of Onset Cancer Mother Family Status - Relation Status Age at Mother Normal [facility] CBC AUTO DIFFon 08-26-2022 BASO # 0.1 103/ul Normal 0.0-0.1 [facility] Comment on above: Performed By: #### CBC #### [facility] [address] [address] [address] Artem Rojas Basophils/100 WBC (Bld) 1.0 % Normal 0.2-2.0 [facility] Comment on above: Performed By: #### CBC #### [facility] [address] [address] [address] Artem Rojas EO # 0.2 103/ul Normal 0.0-0.7 [facility] Comment on above: Performed By: #### CBC #### [facility] [address] [address] [address] Artem Rojas Eosinophils/100 WBC (Bld) 2.0 % Normal 0.9-7.0 [facility] Comment on above: Performed By: #### CBC #### [facility] [address] [address] [address] Artem Rojas Erythrocyte distribution width (RBC) [Ratio] 13.1 % Normal 11.0-15.0 [facility] Comment on above: Performed By: #### CBC #### [facility] [address] [address] [address] Artem Rojas Hematocrit (Bld) [Volume fraction] 43.8 % Normal 42.0-54.0 [facility] Comment on above: Performed By: #### CBC #### [facility] [address] [address] [address] Artem Rojas Hemoglobin (Bld) [Mass/Vol] 14.5 g/dL Normal 14.0-18.0 [facility] Comment on above: Performed By: #### CBC #### [facility] [address] [place] [address] Dr. Artem Rojas IG # 0.07 10e3/ul Critically high 0.00-0.03 [facility] Comment on above: Performed By: #### CBC #### [facility] [address] [place] [address] Dr. Artem Rojas IG % 0.8 % Critically high 0.0-0.5 [facility] Comment on above: Performed By: #### CBC #### [facility] [address] [place] [address] Dr. Artem Rojas LYMPH # 1.8 103/ul Normal 1.2-3.8 [facility] Comment on above: Performed By: #### CBC #### [facility] [address] [place] [address] Dr. Artem Rojas Lymphocytes/100 WBC (Bld) 20.0 % Critically low 20.5-60.0 [facility] Comment on above: Performed By: #### CBC #### [facility] [address] [place] [address] Dr. Artem Rojas MANUAL DIFF REQ NO Normal [facility] Comment on above: Performed By: #### CBC #### [facility] [address] [place] [address] Dr. Artem Rojas MCH (RBC) [Entitic mass] 30.0 pg Normal 25.9-34.0 [facility] Comment on above: Performed By: #### CBC #### [facility] [address] [place] [address] Dr. Artem Rojas MCHC (RBC) [Mass/Vol] 33.1 g/dL Normal 29.9-35.2 [facility] Comment on above: Performed By: #### CBC #### [facility] [address] [place] [address] Dr. Artem Rojas MCV (RBC) [Entitic vol] 90.7 fL Normal 80.0-94.0 [facility] Comment on above: Performed By: #### CBC #### [facility] [address] [place] [address] Dr. Artem Rojas MONO # 0.8 103/ul Normal 0.3-0.8 [facility] Comment on above: Performed By: #### CBC #### [facility] [address] [place] [address] Dr. Artem Rojas Monocytes/100 WBC (Bld) 8.7 % Normal 1.7-12.0 [facility] Comment on above: Performed By: #### CBC #### [facility] [address] [place] [address] Dr. Artem Rojas NEUT # 6.1 103/ul Normal 1.4-6.5 [facility] Comment on above: Performed By: #### CBC #### [facility] [address] [place] [address] Dr. Artem Rojas Neutrophils/100 WBC (Bld) 67.5 % Normal 43.0-75.0 [facility] Comment on above: Performed By: #### CBC #### [facility] [address] [place] [address] Dr. Artem Rojas Platelet mean volume (Bld) [Entitic vol] 9.7 fL Normal 9.5-13.5 [facility] Comment on above: Performed By: #### CBC #### [facility] [address] [place] [address] Dr. Artem Rojas PLT 333 103/ul Normal 150-450 [facility] Comment on above: Performed By: #### CBC #### [facility] [address] [place] [address] Dr. Artem Rojas RBC 4.83 106/ul Normal 4.70-6.10 [facility] Comment on above: Performed By: #### CBC #### [facility] [address] [place] [address] Dr. Artem Rojas WBC 9.0 103/ul Normal 4.0-11.0 [facility] Comment on above: Performed By: #### CBC #### [facility] [address] [place] [address] Dr. Artem Rojas PROF CHEM 8 (BAS METB)on Anion gap [Moles/Vol] 9.4 mmol/L Normal [facility] Comment on above: Performed By: #### PTT, PT #### [facility] [address] [place] [address] Dr. Artem Rojas Calcium [Mass/Vol] 9.4 mg/dL Normal 8.5-10.1 [facility] Comment on above: Performed By: #### PTT, PT #### [facility] [address] [place] [address] Dr. Artem Rojas Chloride [Moles/Vol] 105 mmol/L Normal 98-107 [facility] Comment on above: Performed By: #### PTT, PT #### [facility] [address] [place] [address] Dr. Artem Rojas CO2 [Moles/Vol] 29.3 mmol/L Normal 21.0-32.0 [facility] Comment on above: Performed By: #### PTT, PT #### [facility] [address] [place] [address] Dr. Artem Rojas Creatinine [Mass/Vol] 1.06 mg/dL Normal 0.70-1.30 [facility] Comment on above: Performed By: #### PTT, PT #### [facility] [address] [place] [address] Dr. Artem Rojas EGFR-AF ANDORRAN >60 Normal >=60 [facility] Comment on above: Performed By: #### PTT, PT #### [facility] [address] [place] [address] Dr. Artem Rojas EGFR-NON AF ANDORRAN >60 Normal >=60 [facility] Comment on above: Performed By: #### PTT, PT #### [facility] [address] [place] [address] Dr. Artem Rojas Glucose [Mass/Vol] 125 mg/dL Critically high 74-106 [facility] Comment on above: Performed By: #### PTT, PT #### [facility] [address] [address] [address] Artem Rojas Potassium [Moles/Vol] 4.3 mmol/L Normal 3.5-5.1 [facility] Comment on above: Performed By: #### PTT, PT #### [facility] [address] [place], [place] [address] Dr. Artem Rojas Sodium [Moles/Vol] 139 mmol/L Normal 136-145 [facility] Comment on above: Performed By: #### PTT, PT #### [facility] [address] [address] [address] Artem Rojas Urea nitrogen [Mass/Vol] 20.0 mg/dL Critically high 7.0-18.0 [facility] Comment on above: Performed By: #### PTT, PT #### [facility] [address] [address] [address] Aretm Rojas Urea nitrogen/Creatin ine [Mass ratio] 18.9 mg/mg Normal [facility] Comment on above: Performed By: #### PTT, PT #### [facility] [address] [address] [address] Artem Rojas Orders Onlyon 08-25-2022 Orders Only [id number] Jordin Landry Jr. 1940 Date Provider Department Center 08/25/2022 TROY RIBERA [facility] VAS [facility] [place] [facility] Family History Problem Relation Age of Onset Cancer Mother Family Status - Relation Status Age at Mother Normal [facility] Covid-19 PCR (CVDTB)on SARS-CoV-2 (COVID-19) RNA MONICA+probe Ql (Unsp spec) Not detected Normal NOT DETECTED [facility] Comment on above: Result Comment: When [...] for this test is supported by the May of Health and Human Service's declaration that [...] #### P TT, PT #### [facility] [address] [place] [address] Dr. Artem Rojas INFLUENZA A AND B AGon 08-20 INFLUANEGH SEE BELOW Normal [facility] Comment on above: Result Comment: Negative for Flu A prote in angiten. Infection due to Flu A cannot be ruled out. Flu A angiten in the sample may be below the detection limit of the test. Performed By: #### P TT, PT #### [facility] [address] [place] [address] Dr. Artem Rojas INFLUBNEGH SEE BELOW Normal [facility] Comment on above: Result Comment: Negative for Flu B prote in antigen. Infection due to Flu B cannot be ruled out. Flu B antigen in the sample may be below the detection limit of the test. Performed By: #### P TT, PT #### [facility] [address] [place] [address] Dr. Artem Rojas INFLUENZA A AG Negative Normal NEGATIVE SEE COMMENT [facility] Comment on above: Performed By: #### PTT, PT #### [facility] [address] [place] [address] Dr. Artem Rojas INFLUENZA B AG Negative Normal NEGATIVE SEE COMMENT [facility] Comment on above: Performed By: #### PTT, PT #### [facility] [address] [place] [address] Dr. Artem Rojas INSULINon 07-31-2022 Insulin 16.3 uIU/mL Normal 2.6-24.9 [facility] Comment on above: Performed By: #### PTT, PT #### [facility] [address] [place] [address] Dr. Artem Rojas BNPon 07-30-2022 Natriuretic peptide B (Bld) [Mass/Vol] 1826.0 pg/mL Critically high <=1,800.0 [facility] Comment on above: Performed By: #### CMP, BNP, URIC, TSH, T7, LIPID #### [facility] [address] [place] [address] Dr. Artem Rojas CBC AUTO DIFFon 07-30-2022 BASO # 0.1 103/ul Normal 0.0-0.1 [facility] Comment on above: Performed By: #### PTT, PT #### [facility] [address] [place] [address] Dr. Artem Rojas Basophils/100 WBC (Bld) 1.0 % Normal 0.2-2.0 [facility] Comment on above: Performed By: #### PTT, PT #### [facility] [address] [place] [address] Dr. Artem Rojas EO # 0.2 103/ul Normal 0.0-0.7 [facility] Comment on above: Performed By: #### PTT, PT #### [facility] [address] [place] [address] Dr. Artem Rojas Eosinophils/100 WBC (Bld) 2.4 % Normal 0.9-7.0 [facility] Comment on above: Performed By: #### PTT, PT #### [facility] [address] [place] [address] Dr. Artem Rojas Erythrocyte distribution width (RBC) [Ratio] 13.8 % Normal 11.0-15.0 [facility] Comment on above: Performed By: #### PTT, PT #### [facility] [address] [place] [address] Dr. Artem Rojas Hematocrit (Bld) [Volume fraction] 44.1 % Normal 42.0-54.0 [facility] Comment on above: Performed By: #### PTT, PT #### [facility] [address] [place] [address] Dr. Artem Rojas Hemoglobin (Bld) [Mass/Vol] 14.5 g/dL Normal 14.0-18.0 [facility] Comment on above: Performed By: #### PTT, PT #### [facility] [address] [place] [address] Dr. Artem Rojas IG # 0.02 10e3/ul Normal 0.00-0.03 [facility] Comment on above: Performed By: #### PTT, PT #### [facility] [address] [place] [address] Dr. Artem Rojas IG % 0.2 % Normal 0.0-0.5 [facility] Comment on above: Performed By: #### PTT, PT #### [facility] [address] [place] [address] Dr. Artem Rojas LYMPH # 2.1 103/ul Normal 1.2-3.8 [facility] Comment on above: Performed By: #### PTT, PT #### [facility] [address] [place] [address] Dr. Artem Rojas Lymphocytes/100 WBC (Bld) 24.3 % Normal 20.5-60.0 [facility] Comment on above: Performed By: #### PTT, PT #### [facility] [address] [place] [address] Dr. Artem Rojas MANUAL DIFF REQ NO Normal [facility] Comment on above: Performed By: #### PTT, PT #### [facility] [address] [place] [address] Dr. Artem Rojas MCH (RBC) [Entitic mass] 30.3 pg Normal 25.9-34.0 [facility] Comment on above: Performed By: #### PTT, PT #### [facility] [address] [place] [address] Dr. Artem Rojas MCHC (RBC) [Mass/Vol] 32.9 g/dL Normal 29.9-35.2 [facility] Comment on above: Performed By: #### PTT, PT #### [facility] [address] [place] [address] Dr. Artem Rojas MCV (RBC) [Entitic vol] 92.1 fL Normal 80.0-94.0 [facility] Comment on above: Performed By: #### PTT, PT #### [facility] [address] [place] [address] Dr. Artem Rojas MONO # 0.8 103/ul Normal 0.3-0.8 [facility] Comment on above: Performed By: #### PTT, PT #### [facility] [address] [place] [address] Dr. Artem Rojas Monocytes/100 WBC (Bld) 9.0 % Normal 1.7-12.0 [facility] Comment on above: Performed By: #### PTT, PT #### [facility] [address] [place] [address] Dr. Artem Rojas NEUT # 5.6 103/ul Normal 1.4-6.5 [facility] Comment on above: Performed By: #### PTT, PT #### [facility] [address] [place] [address] Dr. Artem Rojas Neutrophils/100 WBC (Bld) 63.1 % Normal 43.0-75.0 [facility] Comment on above: Performed By: #### PTT, PT #### [facility] [address] [place] [address] Dr. Artem Rojas Platelet mean volume (Bld) [Entitic vol] 10.0 fL Normal 9.5-13.5 [facility] Comment on above: Performed By: #### PTT, PT #### [facility] [address] [place] [address] Dr. Artem Rojas PLT 193 103/ul Normal 150-450 [facility] Comment on above: Performed By: #### PTT, PT #### [facility] [address] [place] [address] Dr. Artem Rojas RBC 4.79 106/ul Normal 4.70-6.10 [facility] Comment on above: Performed By: #### PTT, PT #### [facility] [address] [place] [address] Dr. Artem Rojas WBC 8.8 103/ul Normal 4.0-11.0 [facility] Comment on above: Performed By: #### PTT, PT #### [facility] [address] [place] [address] Dr. Artem Rojas FREE THYROXINE INDEX T7on FTI 2.52 Normal 1.30-4.50 [facility] Comment on above: Performed By: #### CMP, BNP, URIC, TSH, T7, LIPID #### [facility] [address] [place] [address] Dr. Artem Rojas T3U 35.0 % Normal 33.0-40.0 [facility] Comment on above: Performed By: #### CMP, BNP, URIC, TSH, T7, LIPID #### [facility] [address] [place] [address] Dr. Artem Rojas T4 [Mass/Vol] 7.20 ug/dL Normal 4.50-12.10 [facility] Comment on above: Performed By: #### CMP, BNP, URIC, TSH, T7, LIPID #### [facility] [address] [place] [address] Dr. Artem Rojas GLYCOHEMOGLOBIN A1Con 2022 ADA RECOMMENDATION SEE BELOW Normal [facility] Comment on above: Result Comment: ADA RECOMMENDED LIMIT 4. 0 - 6.0 ADA THERAPEUTIC TARGET < 7.0 ACTION SUGGESTED > 7.0 Performed By: #### A 1C #### [facility] [address] [place] [address] Dr. Artem Rojas Glucose [Mass/Vol] 128 mg/dL Normal [facility] Comment on above: Performed By: #### A1C #### [facility] [address] [place] [address] Dr. Artem Rojas HbA1c (Bld) [Mass fraction] 6.1 % Normal 4.5-6.2 [facility] Comment on above: Performed By: #### A1C #### [facility] [address] [place] [address] Dr. Artem Rojas LIPID PROFILEon 07-30-2022 CHOL-HDL RATIO NORM SEE BELOW Normal [facility] Comment on above: Result Comment: 3.3 - 4.4 LOW RISK 4.4 - 7.1 AVERAGE RISK 7.1 - 11.0 MODERATE RISK >11.0 HIGH RISK Performed By: #### C MP, BNP, URIC, TSH, T7, LIPID #### [facility] [address] [address] [address] Artem Rojas Cholesterol [Mass/Vol] 157 mg/dL Normal <=200 [facility] Comment on above: Performed By: #### CMP, BNP, URIC, TSH, T7, LIPID #### [facility] [address] [address] [address] Artem Rojas Cholesterol in HDL [Mass/Vol] 51 mg/dL Normal 40-60 [facility] Comment on above: Performed By: #### CMP, BNP, URIC, TSH, T7, LIPID #### [facility] [address] [address] [address] Artem Rojas Cholesterol in LDL [Mass/Vol] 86.6 mg/dL Normal [facility] Comment on above: Performed By: #### CMP, BNP, URIC, TSH, T7, LIPID #### [facility] [address] [address] [address] Artem Rojas Cholesterol.tota l/Cholesterol in HDL [Mass ratio] 3.1 {ratio} Normal [facility] Comment on above: Performed By: #### CMP, BNP, URIC, TSH, T7, LIPID #### [facility] [address] [address] [address] Artem Rojas HDL NORMAL > or = 60 mg/dl - LO W CARDIOVASCULAR RISK <40 mg/dl - HIGH CARDIOVASCULAR RISK Normal [facility] Comment on above: Performed By: #### CMP, BNP, URIC, TSH, T7, LIPID #### [facility] [address] [place] [address] Dr. Artem Rojas LDL CALC NORMAL SEE BELOW Normal [facility] Comment on above: Result Comment: <100 mg/dl OPTIMAL 100 - 129 mg/dl NEAR OR ABOVE OPTIMAL 130 - 159 mg/dl BORDERLINE HIGH 160 - 189 mg/dl HIGH >190 mg/dl VERY HIGH Performed By: #### C MP, BNP, URIC, TSH, T7, LIPID #### [facility] [address] [address] [address] Artem Rojas Triglyceride [Mass/Vol] 97 mg/dL Normal <=150 [facility] Comment on above: Performed By: #### CMP, BNP, URIC, TSH, T7, LIPID #### [facility] [address] [place] [address] Dr. Artem Rojas VLDL CALC 19.4 mg/dL Normal [facility] Comment on above: Performed By: #### CMP, BNP, URIC, TSH, T7, LIPID #### [facility] [address] [place] [address] Dr. Artem Rojas PROF 14(COMP METB)on 023 Albumin [Mass/Vol] 3.5 g/dL Normal 3.4-5.0 [facility] Comment on above: Performed By: #### CMP, BNP, URIC, TSH, T7, LIPID #### [facility] [address] [place] [address] Dr. Artem Rojas Albumin/Globulin [Mass ratio] 1.1 {ratio} Normal [facility] Comment on above: Performed By: #### CMP, BNP, URIC, TSH, T7, LIPID #### [facility] [address] [place] [address] Dr. Artem Rojas ALP [Catalytic activity/Vol] 70 U/L Normal 46-116 [facility] Comment on above: Performed By: #### CMP, BNP, URIC, TSH, T7, LIPID #### [facility] [address] [place] [address] Dr. Artem Rojas ALT [Catalytic activity/Vol] 19 U/L Normal 16-63 [facility] Comment on above: Performed By: #### CMP, BNP, URIC, TSH, T7, LIPID #### [facility] [address] [place] [address] Dr. Artem Rojas Anion gap [Moles/Vol] 11.7 mmol/L Normal [facility] Comment on above: Performed By: #### CMP, BNP, URIC, TSH, T7, LIPID #### [facility] [address] [place] [address] Dr. Artem Rojas AST [Catalytic activity/Vol] 18 U/L Normal 15-37 [facility] Comment on above: Performed By: #### CMP, BNP, URIC, TSH, T7, LIPID #### [facility] [address] [place] [address] Dr. Artem Rojas Bilirubin [Mass/Vol] 0.5 mg/dL Normal 0.2-1.0 [facility] Comment on above: Performed By: #### CMP, BNP, URIC, TSH, T7, LIPID #### [facility] [address] [place] [address] Dr. Artem Rojas Calcium [Mass/Vol] 9.3 mg/dL Normal 8.5-10.1 [facility] Comment on above: Performed By: #### CMP, BNP, URIC, TSH, T7, LIPID #### [facility] [address] [place] [address] Dr. Artem Rojas Chloride [Moles/Vol] 105 mmol/L Normal 98-107 [facility] Comment on above: Performed By: #### CMP, BNP, URIC, TSH, T7, LIPID #### [facility] [address] [place] [address] Dr. Artem Rojas CO2 [Moles/Vol] 29.7 mmol/L Normal 21.0-32.0 [facility] Comment on above: Performed By: #### CMP, BNP, URIC, TSH, T7, LIPID #### [facility] [address] [place] [address] Dr. Artem Rojas Creatinine [Mass/Vol] 0.87 mg/dL Normal 0.70-1.30 [facility] Comment on above: Performed By: #### CMP, BNP, URIC, TSH, T7, LIPID #### [facility] [address] [place] [address] Dr. Artem Rojas EGFR-AF ANDORRAN >60 Normal >=60 [facility] Comment on above: Performed By: #### CMP, BNP, URIC, TSH, T7, LIPID #### [facility] [address] [place] [address] Dr. Artem Rojas EGFR-NON AF ANDORRAN >60 Normal >=60 [facility] Comment on above: Performed By: #### CMP, BNP, URIC, TSH, T7, LIPID #### [facility] [address] [address] [address] Artem Rojas Globulin (S) [Mass/Vol] 3.3 g/dL Normal [facility] Comment on above: Performed By: #### CMP, BNP, URIC, TSH, T7, LIPID #### [facility] [address] [place] [address] Dr. Artem Rojas Glucose [Mass/Vol] 118 mg/dL Critically high 74-106 [facility] Comment on above: Performed By: #### CMP, BNP, URIC, TSH, T7, LIPID #### [facility] [address] [place] [address] Dr. Artem Rojas Potassium [Moles/Vol] 4.4 mmol/L Normal 3.5-5.1 [facility] Comment on above: Performed By: #### CMP, BNP, URIC, TSH, T7, LIPID #### [facility] [address] [place] [address] Dr. Artem Rojas Protein [Mass/Vol] 6.8 g/dL Normal 6.4-8.2 [facility] Comment on above: Performed By: #### CMP, BNP, URIC, TSH, T7, LIPID #### [facility] [address] [place] [address] Dr. Artem Rojas Sodium [Moles/Vol] 142 mmol/L Normal 136-145 [facility] Comment on above: Performed By: #### CMP, BNP, URIC, TSH, T7, LIPID #### [facility] [address] [place] [address] Dr. Artem Rojas Urea nitrogen [Mass/Vol] 19.0 mg/dL Critically high 7.0-18.0 [facility] Comment on above: Performed By: #### CMP, BNP, URIC, TSH, T7, LIPID #### [facility] [address] [place] [address] Dr. Artem Rojas Urea nitrogen/Creatin ine [Mass ratio] 21.8 mg/mg Normal [facility] Comment on above: Performed By: #### CMP, BNP, URIC, TSH, T7, LIPID #### [facility] [address] [place] [address] Dr. Artem Rojas TSHon 07-30-2022 TSH 1.773 uIU/mL Normal 0.358-3.740 [facility] Comment on above: Performed By: #### CMP, BNP, URIC, TSH, T7, LIPID #### [facility] [address] [place] [address] Dr. Artem Rojas URIC ACID SERUMon 07-30-2022 Urate [Mass/Vol] 5.8 mg/dL Normal 3.5-7.2 [facility] Comment on above: Performed By: #### CMP, BNP, URIC, TSH, T7, LIPID #### [facility] [address] [place] [address] Dr. Artem Rojas VITAMIN D 25 OHon 07-30-2022 VIT D 25-OH 65.5 ng/mL Normal [facility] Comment on above: Performed By: #### PTT, PT #### [facility] [address] [place] [address] Dr. Artem Rojas VIT D RANGES SEE BELOW Normal [facility] Comment on above: Result Comment: <20 ng/mL Vit D deficien t 20 - <30 ng/mL Vit D insufficient 30 - 100 ng/mL Vit D sufficient >100 ng/mL Potential Toxicity Performed By: #### P TT, PT #### [facility] [address] [place] [address] Dr. Artem Rojas CBC AUTO DIFFon 03-02-2022 BASO # 0.1 103/ul Normal 0.0-0.1 [facility] Comment on above: Performed By: #### PTT, PT #### [facility] [address] [place] [address] Dr. Artem Rojas Basophils/100 WBC (Bld) 0.5 % Normal 0.2-2.0 [facility] Comment on above: Performed By: #### PTT, PT #### [facility] [address] [place] [address] Dr. Artem Rojas EO # 0.0 103/ul Normal 0.0-0.7 [facility] Comment on above: Performed By: #### PTT, PT #### [facility] [address] [place] [address] Dr. Artem Rojas Eosinophils/100 WBC (Bld) 0.1 % Critically low 0.9-7.0 [facility] Comment on above: Performed By: #### PTT, PT #### [facility] [address] [place] [address] Dr. Artem Rojas Erythrocyte distribution width (RBC) [Ratio] 12.9 % Normal 11.0-15.0 [facility] Comment on above: Performed By: #### PTT, PT #### [facility] [address] [place] [address] Dr. Artem Rojas Hematocrit (Bld) [Volume fraction] 39.7 % Critically low 42.0-54.0 [facility] Comment on above: Performed By: #### PTT, PT #### [facility] [address] [place] [address] Dr. Artem Rojas Hemoglobin (Bld) [Mass/Vol] 13.1 g/dL Critically low 14.0-18.0 [facility] Comment on above: Performed By: #### PTT, PT #### [facility] [address] [place] [address] Dr. Artem Rojas IG # 0.05 10e3/ul Critically high 0.00-0.03 [facility] Comment on above: Performed By: #### PTT, PT #### [facility] [address] [place] [address] Dr. Artem Rojas IG % 0.4 % Normal 0.0-0.5 [facility] Comment on above: Performed By: #### PTT, PT #### [facility] [address] [place] [address] Dr. Artem Rojas LYMPH # 0.8 103/ul Critically low 1.2-3.8 [facility] Comment on above: Performed By: #### PTT, PT #### [facility] [address] [place] [address] Dr. Artem Rojas Lymphocytes/100 WBC (Bld) 5.7 % Critically low 20.5-60.0 [facility] Comment on above: Performed By: #### PTT, PT #### [facility] [address] [place] [address] Dr. Artem Rojas MANUAL DIFF REQ NO Normal [facility] Comment on above: Performed By: #### PTT, PT #### [facility] [address] [place] [address] Dr. Artem Rojas MCH (RBC) [Entitic mass] 31.5 pg Normal 25.9-34.0 [facility] Comment on above: Performed By: #### PTT, PT #### [facility] [address] [place] [address] Dr. Artem Rojas MCHC (RBC) [Mass/Vol] 33.0 g/dL Normal 29.9-35.2 [facility] Comment on above: Performed By: #### PTT, PT #### [facility] [address] [place] [address] Dr. Artem Rojas MCV (RBC) [Entitic vol] 95.4 fL Critically high 80.0-94.0 [facility] Comment on above: Performed By: #### PTT, PT #### [facility] [address] [place] [address] Dr. Artem Rojas MONO # 1.0 103/ul Critically high 0.3-0.8 [facility] Comment on above: Performed By: #### PTT, PT #### [facility] [address] [place] [address] Dr. Artem Rojas Monocytes/100 WBC (Bld) 7.4 % Normal 1.7-12.0 [facility] Comment on above: Performed By: #### PTT, PT #### [facility] [address] [place] [address] Dr. Artem Rojas NEUT # 11.4 103/ul Critically high 1.4-6.5 [facility] Comment on above: Performed By: #### PTT, PT #### [facility] [address] [place] [address] Dr. Artem Rojas Neutrophils/100 WBC (Bld) 85.9 % Critically high 43.0-75.0 [facility] Comment on above: Performed By: #### PTT, PT #### [facility] [address], [place] [address] Dr. Artem Rojas Platelet mean volume (Bld) [Entitic vol] 10.8 fL Normal 9.5-13.5 [facility] Comment on above: Performed By: #### PTT, PT #### [facility] [address] [place], [place] [address] Dr. Artem Rojas PLT 164 103/ul Normal 150-450 [facility] Comment on above: Performed By: #### PTT, PT #### [facility] [address], [place] [address] Dr. Artem Rojas RBC 4.16 106/ul Critically low 4.70-6.10 [facility] Comment on above: Performed By: #### PTT, PT #### [facility] [address] [address] [address] Artem Rojas WBC 13.2 103/ul Critically high 4.0-11.0 [facility] Comment on above: Performed By: #### PTT, PT #### [facility] [address] [address] [address] CSPINE WO CONon [...] Date: 2022-03-02 17:51 Normal [facility] CT HEAD WO CONon 03-02-2022 CT [...] Date: 2022-03-02 17:40 Normal [facility] Covid-19 PCR (CVDTB)on 02-13 SARS-CoV-2 (COVID-19) RNA MONICA+probe Ql (Unsp spec) Not detected Normal NOT DETECTED [facility] Comment on above: Result Comment: When [...] for this test is supported by the Compliance Aide of Health and Human Service's declaration that [...] #### P TT, PT #### [facility] [address] [place] [address] Dr. Artem Rojas GASTROCCULTon 03-02-2022 GASTROCCULT Positive Abnormal NEGATIVE [facility] Comment on above: Performed By: #### PTT, PT #### [facility] [address] [place] [address] Dr. Artem Rojas PH GASTRIC 2 Normal [facility] Comment on above: Performed By: #### PTT, PT #### [facility] [address] [place] [address] Dr. Artem Rojas PROF 14(COMP METB)on 022 Albumin [Mass/Vol] 3.6 g/dL Normal 3.4-5.0 [facility] Comment on above: Performed By: #### PTT, PT #### [facility] [address] [place] [address] Dr. Artem Rojas Albumin/Globulin [Mass ratio] 1.3 {ratio} Normal [facility] Comment on above: Performed By: #### PTT, PT #### [facility] [address] [place] [address] Dr. Artem Rojas ALP [Catalytic activity/Vol] 65 U/L Normal 46-116 [facility] Comment on above: Performed By: #### PTT, PT #### [facility] [address] [place] [address] Dr. Artem Rojas ALT [Catalytic activity/Vol] 12 U/L Critically low 16-63 [facility] Comment on above: Performed By: #### PTT, PT #### [facility] [address] [place] [address] Dr. Artem Rojas Anion gap [Moles/Vol] 12.8 mmol/L Normal [facility] Comment on above: Performed By: #### PTT, PT #### [facility] [address] [address] [address] Artem Rojas AST [Catalytic activity/Vol] 15 U/L Normal 15-37 [facility] Comment on above: Performed By: #### PTT, PT #### [facility] [address] [place] [address] Dr. Artem Rojas Bilirubin [Mass/Vol] 1.1 mg/dL Critically high 0.2-1.0 [facility] Comment on above: Performed By: #### PTT, PT #### [facility] [address] [place] [address] Dr. Artem Rojas Calcium [Mass/Vol] 9.0 mg/dL Normal 8.5-10.1 [facility] Comment on above: Performed By: #### PTT, PT #### [facility] [address] [place] [address] Dr. Artem Rojas Chloride [Moles/Vol] 104 mmol/L Normal 98-107 [facility] Comment on above: Performed By: #### PTT, PT #### [facility] [address] [place] [address] Dr. Artem Rojas CO2 [Moles/Vol] 25.8 mmol/L Normal 21.0-32.0 [facility] Comment on above: Performed By: #### PTT, PT #### [facility] [address] [place] [address] Dr. Artem Rojas Creatinine [Mass/Vol] 1.06 mg/dL Normal 0.70-1.30 [facility] Comment on above: Performed By: #### PTT, PT #### [facility] [address] [address] [address] Artem Rojas EGFR-AF ANDORRAN >60 Normal >=60 [facility] Comment on above: Performed By: #### PTT, PT #### [facility] [address] [address] [address] Artem Rojas EGFR-NON AF ANDORRAN >60 Normal >=60 [facility] Comment on above: Performed By: #### PTT, PT #### [facility] [address] [address] [address] Artem Rojas Globulin (S) [Mass/Vol] 2.8 g/dL Normal [facility] Comment on above: Performed By: #### PTT, PT #### [facility] [address] [place] [address] Dr. Artem Rojas Glucose [Mass/Vol] 104 mg/dL Normal 74-106 [facility] Comment on above: Performed By: #### PTT, PT #### [facility] [address] [place] [address] Dr. Artem Rojas Potassium [Moles/Vol] 4.6 mmol/L Normal 3.5-5.1 [facility] Comment on above: Performed By: #### PTT, PT #### [facility] [address] [place] [address] Dr. Artem Rojas Protein [Mass/Vol] 6.4 g/dL Normal 6.4-8.2 [facility] Comment on above: Performed By: #### PTT, PT #### [facility] [address] [place] [address] Dr. Artem Rojas Sodium [Moles/Vol] 138 mmol/L Normal 136-145 [facility] Comment on above: Performed By: #### PTT, PT #### [facility] [address] [place] [address] Dr. Artem Rojas Urea nitrogen [Mass/Vol] 13.0 mg/dL Normal 7.0-18.0 [facility] Comment on above: Performed By: #### PTT, PT #### [facility] [address] [place] [address] Dr. Artem Rojas Urea nitrogen/Creatin ine [Mass ratio] 12.3 mg/mg Normal [facility] Comment on above: Performed By: #### PTT, PT #### [facility] [address] [place] [address] Dr. Artem Rojas PROTIMEon 03-02-2022 INR Coag (PPP) [Relative time] 1.23 {INR} Normal [facility] Comment on above: Performed By: #### PTT, PT #### [facility] [address] [place] [address] Dr. Artem Rojas INR GUIDELINES SEE BELOW Normal [facility] Comment on above: Result Comment: DESIRED INR: 2.0 - 3.0 C ONDITIONS NOT LISTED BELOW 2.5 - 3.5 FOR PROSTHETIC HEART VALVE REPLACEMENT 2.5 - 3.5 RECURRENT THROMBOSIS Performed By: #### P TT, PT #### [facility] [address] [place] [address] Dr. Artem Rojas PT Coag (PPP) [Time] 13.1 s Critically high 9.0-11.6 [facility] Comment on above: Performed By: #### PTT, PT #### [facility] [address] [place] [address] Dr. Artem Rojas PTTon 03-02-2022 aPTT Coag (Bld) [Time] 28.5 s Normal 22.3-36.2 [facility] Comment on above: Performed By: #### PTT, PT #### [facility] [address] [place] [address] Dr. Artem Rojas XR KNEE RT 1_2 [...] Date: 2022-03-02 20:49 Normal [facility] OVA AND PARASITE EXAMINATION on 01-18-2022 Ova + Parasite Exam Final report Normal [facility] Comment on above: Result Comment: These results were obtai ricardo using wet preparation(s) and trichrome stained smear. This test does not include testing for Cryptosporidium parvum, Cyclospora, or Microsporidia. Performed By: #### P TT, PT #### [facility] [address] [place] [address] Dr. Artem Rojas Result 1 Comment Normal [facility] Comment on above: Result Comment: No ova, cysts, or parasi alise seen. . One negative specimen does not rule out the possibility of a parasitic infection. Performed By: #### P TT, PT #### [facility] [address] [place] [address] Dr. Artem Rojas GI PANEL (PCR)on 01-14-2022 Adenovirus F 40/41 Not detected Normal NOT DETECTED [facility] Comment on above: Performed By: #### PTT, PT #### [facility] [address] [place] [address] Dr. Artem Rojas Astrovirus Not detected Normal NOT DETECTED [facility] Comment on above: Performed By: #### PTT, PT #### [facility] [address] [place] [address] Dr. Artem Rojas C. Diff toxin A/B Not detected Normal NOT DETECTED [facility] Comment on above: Performed By: #### PTT, PT #### [facility] [address] [place] [address] Dr. Artem Rojas Campylobacter Not detected Normal NOT DETECTED [facility] Comment on above: Performed By: #### PTT, PT #### [facility] [address] [place] [address] Dr. Artem Rojas Cryptosporidium Not detected Normal NOT DETECTED [facility] Comment on above: Performed By: #### PTT, PT #### [facility] [address] [place] [address] Dr. Artem Rojas Cyclos. Cayetanensis Not detected Normal NOT DETECTED [facility] Comment on above: Performed By: #### PTT, PT #### [facility] [address] [place] [address] Dr. Artem Rojas E. Coli O157 Not Applicable Normal Not Applicable [facility] Comment on above: Performed By: #### PTT, PT #### [facility] [address] [place] [address] Dr. Artem Rojas E. histolytica Not detected Normal NOT DETECTED [facility] Comment on above: Performed By: #### PTT, PT #### [facility] [address] [place] [address] Dr. Artem Rojas EAEC Not detected Normal NOT DETECTED [facility] Comment on above: Performed By: #### PTT, PT #### [facility] [address] [place] [address] Dr. Artem Rojas EIEC Not detected Normal NOT DETECTED [facility] Comment on above: Performed By: #### PTT, PT #### [facility] [address] [place] [address] Dr. Artem Rojas EPEC Not detected Normal NOT DETECTED [facility] Comment on above: Performed By: #### PTT, PT #### [facility] [address] [place] [address] Dr. Artem Rojas ETEC Not detected Normal NOT DETECTED [facility] Comment on above: Performed By: #### PTT, PT #### [facility] [address] [place] [address] Dr. Artem Rojas G. Lamblia Not detected Normal NOT DETECTED [facility] Comment on above: Performed By: #### PTT, PT #### [facility] [address] [place] [address] Dr. Artem TSE CONTROLS PASSED Normal [facility] Comment on above: Performed By: #### PTT, PT #### [facility] [address] [place] [address] Dr. Artem ROWENL TIA HEADER GI PANEL BACTERIA Normal [facility] Comment on above: Performed By: #### PTT, PT #### [facility] [address] [address] [address] Artem ARELLANO ECOLI GI PANEL DIARRHEAGEN IC E.COLI / SHIGELLA Normal [facility] Comment on above: Performed By: #### PTT, PT #### [facility] [address] [place] [address] Dr. Artem ARELLANO INFO SEE BELOW Normal [facility] Comment on above: Result Comment: EAEC- Enteroaggregative E. Coli EPEC- Enteropathogenic E. Coli ETEC- Enterotoxigenic E. Coli lt/st STEC- Shigella-like toxin-producing E. Coli stx1/stx2 EIEC- Shigella/Enteroinvasive E. Coli Performed By: #### P TT, PT #### [facility] [address] [place] [address] Dr. Artem ARELLANO PARASITES GI PANEL PARASITES Normal [facility] Comment on above: Performed By: #### PTT, PT #### [facility] [address] [place] [address] Dr. Artem ARELLANO VIRUS GI PANEL VIRUSES Normal [facility] Comment on above: Performed By: #### PTT, PT #### [facility] [address] [place] [address] Dr. Artem Rojas Norovirus GI/GII Not detected Normal NOT DETECTED [facility] Comment on above: Performed By: #### PTT, PT #### [facility] [address] [place] [address] Dr. Artem Rojas P. Shigelloides Not detected Normal NOT DETECTED [facility] Comment on above: Performed By: #### PTT, PT #### [facility] [address] [address] [address] Artem Rojas Rotavirus A Not detected Normal NOT DETECTED [facility] Comment on above: Performed By: #### PTT, PT #### [facility] [address] [place] [address] Dr. Artem Rojas Salmonella Not detected Normal NOT DETECTED [facility] Comment on above: Performed By: #### PTT, PT #### [facility] [address] [place] [address] Dr. Artem Rojas Sapovirus Not detected Normal NOT DETECTED [facility] Comment on above: Performed By: #### PTT, PT #### [facility] [address] [place] [address] Dr. Artem Rojas STEC Not detected Normal NOT DETECTED [facility] Comment on above: Performed By: #### PTT, PT #### [facility] [address] [address] [address] Artem Rojas Vibrio Not detected Normal NOT DETECTED [facility] Comment on above: Performed By: #### PTT, PT #### [facility] [address] [place] [address] Dr. Artem Rojas Vibrio Cholera Not detected Normal NOT DETECTED [facility] Comment on above: Performed By: #### PTT, PT #### [facility] [address] [place] [address] Dr. Artem Rojas Y. Enterocolitica Not detected Normal NOT DETECTED [facility] Comment on above: Performed By: #### PTT, PT #### [facility] [address] [place] [address] Dr. Artem Rojas Consultation Noteon 06-03-20 Consultation Note [id number]#[id number]:127 Normal [facility] RAD - MISCon 06-03-2021 RAD - MISC [id number]#[id number]:127 Normal [facility] Glucose Poct Glucometerson 0 01-10-2021 Glucose [Mass/Vol] 108 mg/dL Normal [facility] Comment on above: Result Comment: Random Glucose Reference Range is dependent on time and content of last meal. Glucose of more than 200 mg/dL in a nonstressed, ambulatory subject supports the diagnosis of Diabetes Mellitus. PERFORMED BY: [facility] [place] [address] PATHOLOGIST MEAT MOLDER SARY APARICIO M.D. Performed By: #### G SAMMIE #### Point of Care testing , [place] 01-10-2021 L Specimen: [id number] Received: 01/10/21 Status: WILFREDO Mckeon Num: [id number] Spec Type: Surgical Subm Dr: Shane Snell MD Tissues: A Colon - Polyp (CECUM) B Colon - Polyp (SIGMOID) Procedures: HE Stain/4, Gross/Micro L4/2 Patient Age/Sex Location Account Attending Physician Desean Landry JR 80/[facility] [id number] Shane Snell MD SPEC NUM: [id number] RECD: 01/10/21 STATUS: WILFREDO MCKEON NUM: [id number] MICAH: 01/10/21 DR: Shane Snell MD ENTERED: 01/10/[address] [facility] [address]: SPEC TYPE: Surgical DEPT: [facility] BY: [id number] ORDERED: HE Stain/4, Gross/Micro L4/2 ORDERED: HE [...] findings support the above pathologic diagnosis. Specimen: [id number] Received: 01/10/21 Status: WILFREDO Mckeon Num: [id number] Spec Type: Surgical Subm Dr: Shane Snell MD Tissues: A Colon - Polyp (CECUM) B Colon - Polyp (SIGMOID) Procedures: HE Stain/4, Gross/Micro L4/2 Patient: Desean Landry JR [id number] (Continued) Specimen: [id number] Received: 01/10/21 (Continued) Signed (signature on file) Randi Ji MD 01/11/21 1809 Specimen: [id number] Received: 01/10/21 Status: WILFREDO Mckeon Num: [id number] Spec Type: Surgical Subm Dr: Shane Snell MD Tissues: A Colon - Polyp (CECUM) B Colon - Polyp (SIGMOID) Procedures: HE Stain/4, Gross/Micro L4/2 Patient: Desean Landry JR [id number] (Continued) Specimen: [id number] Received: 01/10/21 (Continued) CPT Codes 03031?2 Specimen: Received: 01/10/21 Status: WILFREDO Mckeon Num: [id number] Spec Type: Surgical Subm Dr: Shane Snell MD Tissues: A Colon - Polyp (CECUM) B Colon - Polyp (SIGMOID) Procedures: JUDIE Stain/4, Gross/Micro L4/2 Patient: Desean Landry JR [id number] (Continued) Signed (signature on file) Randi Ji MD 01/11/21 1809 [facility] CNCOon 04-13-2018 CNCO Letter TextOctober 2017Sam[address]add[address] [place], [place] [address]ZIYU: Rocky Landry NO.: [id number] OF SERVICE: 04/06/2018Dept. of Pulmonary and Critical Care MedicineDear Mr. Landry,Attached please find a copy of your CAT scan chest report from March.Please contact me if I can contribute further in your health care management.Best regards.Yours sincerely,Cesar Rowley M.D., F.C.C.P.HC:Enclosure Normal [facility] CT CHEST WO IVCONon 04-06-[address] CHEST WO IVCON * * *Final Report* * *DATE OF EXAM: Apr 06 2018 12:50PM [facility] 0541 - CT CHEST WO [...] any questions regarding this interpretation, please call [phone].If you are unable to reach us at the number above,please feel free to contact [facility] eRadiology at [phone] ACN Normal [facility] PROGRESSon 04-06-2018 Protein mass conc HNO ID: [id number]: Venita Lr: (none)Author Type: (none)Type: Progress NotesFiled: 04/06/2018 12:57 PMNote Text: Radiology Service Progress NotePATIENT NAME: Desean LandryMRN: [id number] OF SERVICE: April 06, 2018TIME: 12:28 PMPATIENT IDENTITY VERIFICATION COMPLETED USING TWO (2) METHODS: Patientconfirmed name verbally and ID band matches..PATIENT GENDER DATA: MalePATIENT RELEVANT IMPLANT DATA REVIEWED: Not ApplicableRADIOLOGY DEPARTMENT: CT; Exam(s) Completed: ChestPERIPHERAL IV DATA: Not applicableSIGNED BY: Venita Lee 2017 12:28 PM Normal [facility] CNOVon 09-10-2017 CNOV Office Visit (PULMMN) SA SHAILA LANDRY ([id number]) 1940 MDate Time Provider Department09/10/17 9:55 AM CESAR ROWLEY During your visit today, we recorded the following information about you: Temperature Pulse Respiration Blood pressure 97.7 degrees 75/minute 18/minute 125/68 Weight Height 90.3 kg 1.753 Ritika Rowley MD 09/10/2017 12:26 PM SignedPULMONARY CLINICPATIENT NAME: Desean LandryMRN: [id number] CARE PHYSICIAN: Diogenes Casiano [facility] NORMANommunication will be sent via [place] mail or [...] No ronchi. No ralesCARDIAC: normal S1 and C1HIJKHQO: Abdomen soft.EXTREMETIES: No deformities. No LE edema. [...] [J98.11] Pleural calcification [J94.8]Order(s):CT CHEST WO IVCON [[id number]] Order #: [id number] FUTUREProblem List As Of Date: 09/10/2017(None)Disposition: Return in about 6 months (around 03/13/2018).Follow-up and Disposition History RecordedEncounter Number: [id number] Status:Closed by CESAR ROWLEY MD on 09/10/17 [facility] CT CHEST WO IVCONon 09-11-19 CT CHEST WO IVCON * * *Final Report* * *DATE OF EXAM: Sep 10 2017 9:05AM [facility] 0541 - CT CHEST WO IVCON / [...] 6 mm. Three-month imaging follow-up suggested for reevaluation.[employer]: AMILCAR Transcribe Date/Time: Sep 10 2017 9:58ADictated by : CHRISTY MULTANI MDThis examination was interpreted and the report reviewed and electronically signed by: CHRISTY MULTANI MD on Sep 10 2017 2:48PM [id number] Normal [facility] PROGRESSon 09-10-2017 Protein mass conc HNO ID: [id number]: Cesar Claudiae: (none)Author Type: PhysicianType: Progress NotesFiled: 09/10/2017 12:26 PMNote Text:PULMONARY CLINICPATIENT NAME: Desean LandryMRN: [id number] CARE PHYSICIAN: Diogenes Casiano [facility] [place]ommunication will be sent via [place] mail or [...] wheezing. No ronchi. NoralesCARDIAC: normal S1 and D6STEKUJW: Abdomen soft.EXTREMETIES: No deformities. No LE edema. [...] MedicineDATE: September 10, 2017TIME: 9:30 AM Normal [facility] Protein mass conc HNO ID: [id number]: Srinath Purcell CTS (Ct)ervice: RadiologyAuthor Type: Clinical TechnicianType: Progress NotesFiled: 09/10/2017 9:03 AMNote Text: Radiology Service Progress NotePATIENT NAME: Desean LandryMRN: [id number] OF SERVICE: September 10, 2017TIME: 9:03 AMPATIENT IDENTITY VERIFICATION COMPLETED USING TWO (2) METHODS: Patientconfirmed name verbally and ID band matches..PATIENT GENDER DATA: MalePATIENT RELEVANT IMPLANT DATA REVIEWED: YesRADIOLOGY DEPARTMENT: CT; Exam(s) Completed: ChestPERIPHERAL IV DATA: Not applicableSIGNED BY: Srinath MANINDER HeathRomanabrett 2017 9:03 AM Normal [facility] HISTORY PHYSICALon 8 HISTORY PHYSICAL HNO ID: [id number] thor: Cesar Jose: (none)Author Type: PhysicianType: HANDPFiled: 07/23/2017 5:35 PMNote Text:PULMONARY CONSULTPATIENT NAME: Desean LandryMRN: [id number] FOR CONSULT: Pleural effusionREQUESTING PHYSICIAN: Diogenes Casiano [facility] CARE PHYSICIAN: Diogenes Casiano [facility] [place]ommunication will be sent via [place] mail or shared electronic medicalrecordsHISTORY OF PRESENT ILLNESS: Mr. 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 Unable to make his own medical decision.He lives by himself but currently admitted at a SNF. He has a legalguardian Blanca Sofia phone # [phone].In June he was found on the floor [...] evaluation anddecided to pursue further evaluation at [facility].Since hospital discharge, he has been at [...] MedicineDATE: July 23, 2017TIME: 12:12 PM Normal [facility] PROGRESSon 07-23-2017 Protein mass conc HNO ID: [id number]: Colleen Ceballos RtService: (none)Author Type: (none)Type: Progress NotesFiled: 07/23/2017 11:16 AMNote Text: Radiology Service Progress NotePATIENT NAME: Desean LandryMRN: [id number] OF SERVICE: July 23, 2017TIME: 11:16 AMPATIENT IDENTITY VERIFICATION COMPLETED USING TWO (2) METHODS: Patientconfirmed name verbally and Date of .PATIENT GENDER DATA: MalePATIENT RELEVANT IMPLANT DATA REVIEWED: Not ApplicableRADIOLOGY DEPARTMENT: General X-ray: Exam(s) Completed: Chest X-RayPERIPHERAL IV DATA: Not applicableSIGNED BY: Colleen Ceballos RtFebruary 2017 11:16 AM Normal [facility] XR CHEST 2V FRONTAL/LATon XR CHEST [...] ARMENTA MD on Jul 23 2017 3:24PM [id number] Normal [facility] HOSPon 07-21-2017 HOSP Patient:Desean Landry MRN: [...] Radiology Service Progress NotePATIENT NAME: Desean LandryMRN: [id number] OF SERVICE: July 23, 2017TIME: 11:16 AMPATIENT IDENTITY VERIFICATION COMPLETED USING TWO (2) METHODS: Patientconfirmed name verbally and Date of .PATIENT GENDER DATA: MalePATIENT RELEVANT IMPLANT DATA REVIEWED: Not ApplicableRADIOLOGY DEPARTMENT: General X-ray: Exam(s) Completed: Chest X-RayPERIPHERAL IV DATA: Not applicableSIGNED BY: Colleen Ceballos RtFebruary 2017 11:16 AMProgress Notes (HOSP [facility] H23):Latoya Mohamud, RN, RN 07/22/2017 10:35 AM Signed07/22/2017: Navigator contacted [facility] ([phone]) toobtain recent labs. Corduroy Cutting Supervisor will fax labs and medication list. Craig also have a copies of this sent with him to his appointments. Normal [facility] Cristhian 07-16-2017 FANNYN Telephone (PULMMN) SA SHAILA LANDRY ([id number]) 1940 MDate Time Provider Department07/16/17 CESAR ROWLEY During your visit today, we recorded the following information about you:Kristie Gonzalez 07/16/2017 2:35 PM Signedcxr report to FANNY.Italo Mora CNP 07/17/2017 12:47 PM SignedCXR 07/13/2017StableAllergies As of Date: 07/16/2017(No Known Allergies)Date Reviewed: 07/14/2017Reviewed by: Kim Walker (Fel) - Fully AssessedReason for Visit: Received Outside Medical Records [0544]Problem List As Of Date: 07/16/2017(None) Status:Closed by KRISTIE ANDRADE on 07/16/17 Normal [facility] BASIC METABOLIC PANELon Calcium 8.5 mg/dL Low 8.6-10.3 [facility] Comment on above: Order Comment: No: Do not add to previou s draw Performed By: #### 4 1000, 77525, 00585, 43859, 20262 ####[facility] [place] [address], [facility] Chloride 104 mmol/L Normal 98-107 [facility] Comment on above: Order Comment: No: Do not add to previou s draw Performed By: #### 4 1000, 48809, 74006, 08140, 70315 ####[facility] [place] [address], [facility] CO2 30 mmol/L Normal 21-31 [facility] Comment on above: Order Comment: No: Do not add to previou s draw Performed By: #### 4 1000, 91021, 49796, 71000, 09944 ####[facility] [place] [address], [facility] Creatinine 0.94 mg/dL Normal 0.70-1.30 [facility] Comment on above: Order Comment: No: Do not add to previou s draw Performed By: #### 4 1000, 25729, 47109, 60331, 15298 ####[facility] [place] [address], [facility] eGFR (black) mL/min/{1.73_m2} Normal >60 [facility] Comment on above: Order Comment: No: Do not add to previou s draw Result Comment: Calc ulation may not be valid for patients over 70 years Performed By: #### 4 1000, 52317, 01547, 03956, 49967 ####[facility] eGFR (non-black) mL/min/{1.73_m2} Normal >60 Th e [facility] Comment on above: Order Comment: No: Do not add to previou s draw Result Comment: Calc ulation may not be valid for patients over 70 years Performed By: #### 4 1000, 98471, 04594, 23466, 80503 ####[facility] [facility].[address] Glucose mass conc 98 mg/dL Normal 70-100 [facility] Comment on above: Order Comment: No: Do not add to previou s draw Performed By: #### 4 1000, 40909, 31114, 46938, 68681 ####[place] [place] [facility].[address] Potassium molar conc 4.3 mmol/L Normal 3.5-5.1 [facility] Comment on above: Order Comment: No: Do not add to previou s draw Performed By: #### 4 1000, 44210, 85518, 13925, 47354 ####[place] [place] [facility].[address] Sodium 141 mmol/L Normal 136-145 [facility] Comment on above: Order Comment: No: Do not add to previou s draw Performed By: #### 4 1000, 03084, 97542, 17254, 79175 ####[place] [place] [address] [facility].[address] Urea nitrogen 17 mg/dL Normal 7-25 [facility] Comment on above: Order Comment: No: Do not add to previou s draw Performed By: #### 4 1000, 59941, 53886, 07536, 80500 ####[facility] [facility] [place] [address], [facility] CBC W/DIFFon 06-20-2017 Basophils Auto #/vol (Bld) 0.5 % Normal 0.0-2.0 [facility] Comment on above: Performed By: #### 99541, 75716, 55537, 49841, 63047 ####[facility] [place] [address], [facility] Eosinophils/100 leukocytes 3.6 % Normal 0.0-5.0 [facility] Comment on above: Performed By: #### 38938, 82147, 60565, 36622, 12131 ####[facility] Erythrocyte distribution width Auto Ratio (RBC) 14.2 % Normal 11.5-16.9 [facility] Comment on above: Performed By: #### 14485, 84272, 55783, 10373, 31178 ####[facility] [facility].[address] Erythrocytes (RBC) 4.19 mill/mm3 Low 4.30-5.90 [facility] Comment on above: Performed By: #### 69796, 27420, 35199, 83300, 32602 ####[facility] [facility].[address] Hematocrit (HCT) 39.9 % Normal 39.0-55.0 [facility] Comment on above: Performed By: #### 53333, 92023, 72670, 86211, 61762 ####[facility] Hemoglobin mass conc (Bld) 13.6 g/dL Low 13.9-16.3 [facility] Comment on above: Performed By: #### 68129, 19074, 06490, 28519, 73793 ####[facility] [place] [address], [facility] Lymphocytes/100 leukocytes 15.7 % Low 20.0-40.0 [facility] Comment on above: Performed By: #### 74630, 46895, 32648, 24727, 22617 ####[facility] [place] [address], [facility] MCH 32.4 pg High 24.0-32.0 [facility] Comment on above: Performed By: #### 13624, 73666, 97583, 60527, 82819 ####[facility] MCHC mass conc (RBC) 34.0 g/dL Normal 32.0-36.0 [facility] Comment on above: Performed By: #### 88757, 61060, 99519, 75649, 76452 ####[facility] [facility].[address] MCV 95.3 fL Normal 80.0-100.0 [facility] Comment on above: Performed By: #### 11389, 02416, 52579, 94674, 39832 ####[facility] [facility] [place] [address], [facility] METHOD Normal RBC Morphology Normal [facility] Comment on above: Performed By: #### 95437, 59662, 92734, 79942, 14716 ####[facility] MONOS 9.9 % High 2-8 [facility] Comment on above: Performed By: #### 83579, 63649, 15191, 11641, 29928 ####[facility] [place] [address], [facility] Neutrophils/100 leukocytes 70.3 % High 50-70 [facility] Comment on above: Performed By: #### 38821, 44860, 41696, 73581, 41568 ####[facility] [place] [address], [facility] PLAT CNT 193 Thou/mm3 Normal 100-400 [facility] Comment on above: Performed By: #### 12557, 26380, 76483, 99972, 25498 ####[facility] WBC (Leukocytes) 8.7 Thou/mm3 Normal 4.0-10.0 [facility] Comment on above: Performed By: #### 07140, 06769, 44041, 41260, 21167 ####[facility] Discharge Summaryon 06-20-19 18 Discharge Summary MR#: [id number] [facility] Name[facility] Desean Landry Admitted: 06/13/2017 Discharged: 06/20/2017 Date of : 1940 Physician: Diogenes Ren M.D. DISCHARGE SUMMARYPRIMARY DIAGNOSIS: Rhabdomyolysis secondary to prolonged immobilization.SECONDARY DIAGNOSES:1. History of atrial fibrillation.2. Right sided Posterior Calcified pleural plaques.3. Right-sided loculated pleural effusion.CONSULTS: CT Surgery, Pulmonary.PROCEDURES: None.SUMMARY OF HOSPITAL COURSE: Mr. Landry is a 76-year-old male, who presentedto [facility] ED with complaints of being found down for approximately 15 to 18hours. Per the patient, he was in usual state of health and last nightwhen woke to take his medications, his legs gave out and fell to the floor.Denies loss of consciousness but stated that he was so weak that he wasunable to get up. Eventually, EMS was contacted and brought the patient [facility]. Initial workup was notable for severe rhabdomyolysis,and the patient was transferred to [facility]. He has a past medical historysignificant for [...] not have a biopsy performed whilehospitalized at [facility].His CK and myoglobin continue to trend downward, and he was deemed stableat the time of discharge.He will need to follow up with Dr. Rowley at [facility] for continuedmanagement of his pleural effusions [...] continueto follow up with Dr. Rowley at [facility] for continued management ofthe pleural effusions [...] 06/19/2017/05:47 P/Jarad Ayon, MDDate Trans: 06/20/2017 04:29 P/mmoDN_JN:[id number]: Diogenes Casiano M.D. [address] [place] [facility] [address] Normal [facility] MAGNESIUM BLOODon 06-20-2017 Magnesium 2.0 mg/dL Normal 1.9-2.7 [facility] Comment on above: Order Comment: No: Do not add to previou s draw Performed By: #### 4 1000, 96421, 52177, 48297, 88703 ####[facility] [place] [address], [facility] PHOSPHORUS BLOODon 8 Phosphate 3.5 mg/dL Normal 2.5-5.0 [facility] Comment on above: Order Comment: No: Do not add to previou s draw Performed By: #### 4 1000, 41613, 41484, 37252, 29076 ####[facility] [place] [address], [facility] BASIC METABOLIC PANELon Calcium 8.5 mg/dL Low 8.6-10.3 [facility] Comment on above: Order Comment: No: Do not add to previou s draw Performed By: #### 4 1000, 57382, 42478, 61207, 43783 ####[facility] [place] [address], [place] Chloride 105 mmol/L Normal 98-107 [facility] Comment on above: Order Comment: No: Do not add to previou s draw Performed By: #### 4 1000, 33764, 98060, 55809, 82323 ####[facility] [place] [address], [facility] CO2 26 mmol/L Normal 21-31 [facility] Comment on above: Order Comment: No: Do not add to previou s draw Performed By: #### 4 1000, 47737, 55078, 99053, 16215 ####[facility] Creatinine 0.95 mg/dL Normal 0.70-1.30 [facility] Comment on above: Order Comment: No: Do not add to previou s draw Performed By: #### 4 1000, 19785, 15460, 35202, 61907 ####[facility] eGFR (black) mL/min/{1.73_m2} Normal >60 [facility] Comment on above: Order Comment: No: Do not add to previou s draw Result Comment: Calc ulation may not be valid for patients over 70 years Performed By: #### 4 1000, 44659, 60550, 98447, 69927 ####[facility] eGFR (non-black) mL/min/{1.73_m2} Normal >60 Th e [facility] Comment on above: Order Comment: No: Do not add to previou s draw Result Comment: Calc ulation may not be valid for patients over 70 years Performed By: #### 4 1000, 15969, 54222, 30758, 03797 ####[facility] Glucose mass conc 102 mg/dL High 70-100 [facility] Comment on above: Order Comment: No: Do not add to previou s draw Performed By: #### 4 1000, 85766, 69920, 61392, 96396 ####[facility] [place] [address], [facility] Potassium molar conc 3.7 mmol/L Normal 3.5-5.1 [facility] Comment on above: Order Comment: No: Do not add to previou s draw Performed By: #### 4 1000, 60232, 85443, 85396, 92319 ####[facility] Sodium 139 mmol/L Normal 136-145 [facility] Comment on above: Order Comment: No: Do not add to previou s draw Performed By: #### 4 1000, 64527, 78024, 00403, 08629 ####[facility] Urea nitrogen 17 mg/dL Normal 7-25 [facility] Comment on above: Order Comment: No: Do not add to previou s draw Performed By: #### 4 1000, 81431, 60123, 38834, 28539 ####[facility] CBC W/DIFFon 06-19-2017 Basophils Auto #/vol (Bld) 0.5 % Normal 0.0-2.0 [facility] Comment on above: Order Comment: No: Do not add to previou s draw Performed By: #### 4 1000, 77012, 25913, 78222, 94712 ####[facility] Eosinophils/100 leukocytes 1.0 % Normal 0.0-5.0 [facility] Comment on above: Order Comment: No: Do not add to previou s draw Performed By: #### 4 1000, 48514, 73939, 96381, 82954 ####[facility] Erythrocyte distribution width Auto Ratio (RBC) 13.7 % Normal 11.5-16.9 [facility] Comment on above: Order Comment: No: Do not add to previou s draw Performed By: #### 4 1000, 58874, 66563, 14943, 81493 ####[facility] Erythrocytes (RBC) 4.33 mill/mm3 Normal 4.30-5.90 [facility] Comment on above: Order Comment: No: Do not add to previou s draw Performed By: #### 4 1000, 98678, 29191, 29315, 73066 ####[facility] Hematocrit (HCT) 41.5 % Normal 39.0-55.0 [facility] Comment on above: Order Comment: No: Do not add to previou s draw Performed By: #### 4 1000, 17827, 72931, 15896, 90860 ####[facility]3000 [facility].[address] Hemoglobin mass conc (Bld) 14.1 g/dL Normal 13.9-16.3 [facility] Comment on above: Order Comment: No: Do not add to previou s draw Performed By: #### 4 1000, 56468, 60349, 24234, 63325 ####[facility]3000 [facility].[address] Lymphocytes/100 leukocytes 11.5 % Low 20.0-40.0 [facility] Comment on above: Order Comment: No: Do not add to previou s draw Performed By: #### 4 1000, 38012, 63928, 79673, 86272 ####[facility]3000 [facility].[address] MCH 32.7 pg High 24.0-32.0 [facility] Comment on above: Order Comment: No: Do not add to previou s draw Performed By: #### 4 1000, 12477, 79115, 01555, 92315 ####[facility] MCHC mass conc (RBC) 34.1 g/dL Normal 32.0-36.0 [facility] Comment on above: Order Comment: No: Do not add to previou s draw Performed By: #### 4 1000, 62012, 28811, 86312, 55104 ####[facility] [place] [address], [facility] MCV 95.9 fL Normal 80.0-100.0 [facility] Comment on above: Order Comment: No: Do not add to previou s draw Performed By: #### 4 1000, 13555, 34419, 63897, 16476 ####[facility] [place] [address], [facility] METHOD Normal RBC Morphology Normal [facility] Comment on above: Order Comment: No: Do not add to previou s draw Performed By: #### 4 1000, 33091, 18352, 01901, 79855 ####[facility] [place] [address], [facility] MONOS 11.9 % High 2-8 [facility] Comment on above: Order Comment: No: Do not add to previou s draw Performed By: #### 4 1000, 31640, 14829, 20977, 53760 ####[facility] [place] [address], [facility] Neutrophils/100 leukocytes 75.1 % High 50-70 [facility] Comment on above: Order Comment: No: Do not add to previou s draw Performed By: #### 4 1000, 29636, 59821, 77823, 48607 ####[facility] [place] [address], [place] PLAT CNT 192 Thou/mm3 Normal 100-400 [facility] Comment on above: Order Comment: No: Do not add to previou s draw Performed By: #### 4 1000, 28150, 25399, 95782, 32426 ####[facility] [place] [address], [place] WBC (Leukocytes) 10.7 Thou/mm3 High 4.0-10.0 [facility] Comment on above: Order Comment: No: Do not add to previou s draw Performed By: #### 4 1000, 09263, 00645, 43245, 69975 ####[facility] [place] [address], [facility] CPKon 06-19-2017 Creatine kinase (CK) 252 U/L High 30-223 [facility] Comment on above: Performed By: #### 85419, 03530, 08936, 58192, 97846 ####[facility] [place] [address], [facility] MAGNESIUM BLOODon 06-19-2017 Magnesium 2.0 mg/dL Normal 1.9-2.7 [facility] Comment on above: Order Comment: No: Do not add to previou s draw Performed By: #### 4 1000, 42258, 96323, 41458, 05839 ####[facility] [place] [address], [facility] MYOGLOBINon 06-19-2017 Myoglobin 213 ng/mL Critically high 0-90 [facility] Comment on above: Result Comment: A DOUBLING OF VALUES FRO M SERIAL BLOOD COLLECTIONS(1 - 2 HOURS APART) IS MORE INDICATIVE OF A M.I.THAN THE ABSOLUTE VALUE. Performed By: #### 4 1000, 69098, 93470, 09222, 84516 ####[facility] [place] [address], [facility] PHOSPHORUS BLOODon 8 Phosphate 2.7 mg/dL Normal 2.5-5.0 [facility] Comment on above: Order Comment: No: Do not add to previou s draw Performed By: #### 4 1000, 43880, 05291, 28215, 78755 ####[facility] [place] [address], [facility] ALBUMIN BLOODon 06-18-2017 Albumin 2.6 g/dL Low 3.5-5.7 [facility] Comment on above: Performed By: #### 33074, 07223, 24780, 33318, 34784 ####[facility] BASIC METABOLIC PANELon 01-0 Calcium 8.4 mg/dL Low 8.6-10.3 [facility] Comment on above: Order Comment: No: Do not add to previou s draw Performed By: #### 5 0608 ####[facility] [place] [address], [facility] Chloride 106 mmol/L Normal 98-107 [facility] Comment on above: Order Comment: No: Do not add to previou s draw Performed By: #### 5 0608 ####[facility] CO2 25 mmol/L Normal 21-31 [facility] Comment on above: Order Comment: No: Do not add to previou s draw Performed By: #### 5 0608 ####[facility] Creatinine 0.93 mg/dL Normal 0.70-1.30 [facility] Comment on above: Order Comment: No: Do not add to previou s draw Performed By: #### 5 0608 ####[facility] eGFR (black) mL/min/{1.73_m2} Normal >60 [facility] Comment on above: Order Comment: No: Do not add to previou s draw Result Comment: Calc ulation may not be valid for patients over 70 years Performed By: #### 5 0608 ####[facility] eGFR (non-black) mL/min/{1.73_m2} Normal >60 Th [facility] Comment on above: Order Comment: No: Do not add to previou s draw Result Comment: Calc ulation may not be valid for patients over 70 years Performed By: #### 5 0608 ####[facility] [place] [address], [facility] Glucose mass conc 106 mg/dL High 70-100 [facility] Comment on above: Order Comment: No: Do not add to previou s draw Performed By: #### 5 0608 ####[facility].[address] Potassium molar conc 3.4 mmol/L Low 3.5-5.1 [facility] Comment on above: Order Comment: No: Do not add to previou s draw Performed By: #### 5 0608 ####[facility]3000 [facility].[address] Sodium 137 mmol/L Normal 136-145 [facility] Comment on above: Order Comment: No: Do not add to previou s draw Performed By: #### 5 0608 ####[facility]3000 [facility].[address] Urea nitrogen 21 mg/dL Normal 7-25 [facility] Comment on above: Order Comment: No: Do not add to previou s draw Performed By: #### 5 0608 ####[facility] [facility].[address] CBC W/DIFFon 06-18-2017 Basophils Auto #/vol (Bld) 0.9 % Normal 0.0-2.0 [facility] Comment on above: Order Comment: No: Do not add to previou s draw Performed By: #### 5 0608 ####[facility] [place] [address], [facility] Eosinophils/100 leukocytes 2.3 % Normal 0.0-5.0 [facility] Comment on above: Order Comment: No: Do not add to previou s draw Performed By: #### 5 0608 ####[facility] Erythrocyte distribution width Auto Ratio (RBC) 13.6 % Normal 11.5-16.9 [facility] Comment on above: Order Comment: No: Do not add to previou s draw Performed By: #### 5 0608 ####[facility] Erythrocytes (RBC) 4.37 mill/mm3 Normal 4.30-5.90 [facility] Comment on above: Order Comment: No: Do not add to previou s draw Performed By: #### 5 0608 ####[facility] Hematocrit (HCT) 42.0 % Normal 39.0-55.0 [facility] Comment on above: Order Comment: No: Do not add to previou s draw Performed By: #### 5 0608 ####[facility] Hemoglobin mass conc (Bld) 14.2 g/dL Normal 13.9-16.3 [facility] Comment on above: Order Comment: No: Do not add to previou s draw Performed By: #### 5 0608 ####[facility] [place] [address], [facility] Lymphocytes/100 leukocytes 15.2 % Low 20.0-40.0 [facility] Comment on above: Order Comment: No: Do not add to previou s draw Performed By: #### 5 0608 ####[facility] [place] [address], [facility] MCH 32.5 pg High 24.0-32.0 [facility] Comment on above: Order Comment: No: Do not add to previou s draw Performed By: #### 5 0608 ####[facility] MCHC mass conc (RBC) 33.8 g/dL Normal 32.0-36.0 [facility] Comment on above: Order Comment: No: Do not add to previou s draw Performed By: #### 5 0608 ####[facility] [place] [address], [facility] MCV 96.1 fL Normal 80.0-100.0 [facility] Comment on above: Order Comment: No: Do not add to previou s draw Performed By: #### 5 0608 ####[facility] [place] [address], [facility] METHOD Normal RBC Morphology Normal [facility] Comment on above: Order Comment: No: Do not add to previou s draw Performed By: #### 5 0608 ####[facility] [place] [address], [facility] MONOS 11.8 % High 2-8 [facility] Comment on above: Order Comment: No: Do not add to previou s draw Performed By: #### 5 0608 ####[facility] [place] [address], [facility] Neutrophils/100 leukocytes 69.8 % Normal 50-70 [facility] Comment on above: Order Comment: No: Do not add to previou s draw Performed By: #### 5 0608 ####[facility] [place] [address], [facility] PLAT CNT 168 Thou/mm3 Normal 100-400 [facility] Comment on above: Order Comment: No: Do not add to previou s draw Performed By: #### 5 0608 ####[facility] [place] [address], [facility] WBC (Leukocytes) 10.8 Thou/mm3 High 4.0-10.0 [facility] Comment on above: Order Comment: No: Do not add to previou s draw Performed By: #### 5 0608 ####[facility] CPKon 06-18-2017 Creatine kinase (CK) 586 U/L High 30-223 [facility] Comment on above: Performed By: #### 77458, 70103, 04701, 69429, 36008 ####[facility] MAGNESIUM BLOODon 06-18-2017 Magnesium 1.9 mg/dL Normal 1.9-2.7 [facility] Comment on above: Order Comment: No: Do not add to previou s draw Performed By: #### 5 0608 ####[facility] MYOGLOBINon 06-18-2017 Myoglobin 353 ng/mL Critically high 0-90 [facility] Comment on above: Result Comment: A DOUBLING OF VALUES FRO M SERIAL BLOOD COLLECTIONS(1 - 2 HOURS APART) IS MORE INDICATIVE OF A M.I.THAN THE ABSOLUTE VALUE. Performed By: #### 4 1000, 70180, 87266, 83988, 12987 ####[facility] [place] [address], [facility] PHOSPHORUS BLOODon 8 Phosphate 3.7 mg/dL Normal 2.5-5.0 [facility] Comment on above: Order Comment: No: Do not add to previou s draw Performed By: #### 5 0608 ####[facility] [place] [address], [facility] BASIC METABOLIC PANELon Calcium 8.4 mg/dL Low 8.6-10.3 [facility] Comment on above: Order Comment: No: Do not add to previou s draw Performed By: #### 5 0608 ####[facility] [place] [address], [facility] Chloride 110 mmol/L High 98-107 [facility] Comment on above: Order Comment: No: Do not add to previou s draw Performed By: #### 5 0608 ####[facility] [place] [address], [facility] CO2 25 mmol/L Normal 21-31 [facility] Comment on above: Order Comment: No: Do not add to previou s draw Performed By: #### 5 0608 ####[facility] [place] [address], [facility] Creatinine 0.95 mg/dL Normal 0.70-1.30 [facility] Comment on above: Order Comment: No: Do not add to previou s draw Performed By: #### 5 0608 ####[facility] eGFR (black) mL/min/{1.73_m2} Normal >60 [facility] Comment on above: Order Comment: No: Do not add to previou s draw Result Comment: Calc ulation may not be valid for patients over 70 years Performed By: #### 5 0608 ####[facility] [place] [address], [facility] eGFR (non-black) mL/min/{1.73_m2} Normal >60 Th [facility] Comment on above: Order Comment: No: Do not add to previou s draw Result Comment: Calc ulation may not be valid for patients over 70 years Performed By: #### 5 0608 ####[facility] [place] [address], [facility] Glucose mass conc 107 mg/dL High 70-100 [facility] Comment on above: Order Comment: No: Do not add to previou s draw Performed By: #### 5 0608 ####[facility] Potassium molar conc 3.5 mmol/L Normal 3.5-5.1 [facility] Comment on above: Order Comment: No: Do not add to previou s draw Performed By: #### 5 0608 ####[facility] Sodium 141 mmol/L Normal 136-145 [facility] Comment on above: Order Comment: No: Do not add to previou s draw Performed By: #### 5 0608 ####[facility] Urea nitrogen 23 mg/dL Normal 7-25 [facility] Comment on above: Order Comment: No: Do not add to previou s draw Performed By: #### 5 0608 ####[facility] CBC COMPLETE BLOOD COUNTon 0 - Erythrocyte distribution width Auto Ratio (RBC) 13.7 % Normal 11.5-16.9 [facility] Comment on above: Order Comment: No: Do not add to previou s draw Performed By: #### 5 0608 ####[facility] Erythrocytes (RBC) 4.45 mill/mm3 Normal 4.30-5.90 [facility] Comment on above: Order Comment: No: Do not add to previou s draw Performed By: #### 5 0608 ####[facility] Hematocrit (HCT) 42.9 % Normal 39.0-55.0 [facility] Comment on above: Order Comment: No: Do not add to previou s draw Performed By: #### 5 0608 ####[facility] Hemoglobin mass conc (Bld) 14.3 g/dL Normal 13.9-16.3 [facility] Comment on above: Order Comment: No: Do not add to previou s draw Performed By: #### 5 0608 ####[facility] MCH 32.1 pg High 24.0-32.0 [facility] Comment on above: Order Comment: No: Do not add to previou s draw Performed By: #### 5 0608 ####[facility] [facility].[address] MCHC mass conc (RBC) 33.3 g/dL Normal 32.0-36.0 [facility] Comment on above: Order Comment: No: Do not add to previou s draw Performed By: #### 5 0608 ####[facility] [facility].[address] MCV 96.3 fL Normal 80.0-100.0 [facility] Comment on above: Order Comment: No: Do not add to previou s draw Performed By: #### 5 0608 ####[facility] [facility].[address] PLAT CNT 138 Thou/mm3 Normal 100-400 [facility] Comment on above: Order Comment: No: Do not add to previou s draw Performed By: #### 5 0608 ####[facility] [facility].[address] WBC (Leukocytes) 10.7 Thou/mm3 High 4.0-10.0 [facility] Comment on above: Order Comment: No: Do not add to previou s draw Performed By: #### 5 0608 ####[facility] [place] [address] MYOGLOBINon 06-17-2017 Myoglobin 700 ng/mL Critically high 0-90 [facility] Comment on above: Result Comment: A DOUBLING OF VALUES FRO M SERIAL BLOOD COLLECTIONS(1 - 2 HOURS APART) IS MORE INDICATIVE OF A M.I.THAN THE ABSOLUTE VALUE. Performed By: #### 5 0608 ####[address] LUMBAR SPINE WO CONTRA STon 06-16-[address] L[facility]BAR [facility] WO CONTRAST [facility] [place] [id number] Patient Name: DESEAN LANDRY : 1940ex: MAge: Race: WhiteMRN: [id number]. Location: [id number] Status: IVisit #: [id number] Date: 06/16/2017 10:45:00 AMCompleted Date: 06/16/2017 11:31 AMRequesting Provider: NADEEN SALCEDO Attending Provider: NADEEN SALCEDO Report Copy To: Signs & Symptoms: Back Pain (specify level)History: Patient history not availableComments: R/O Fractures, If Other selected, state reason for examExam: 3D CT LUMBAR SPINE WO CONTRASTAccession #: [id number] 3D CT LUMBAR SPINE WO CONTRAST 06/16/2017 [...] findings. Electronically signed by:Srinath Meyer. Transcribed by: [email or web address], User Resident: PAOLA WOLFElectronically Signed by: SRINATH MEYER @ 06/16/2017 12:13 PMI personally read this/these film(s) with this resident Normal [facility] Comment on above: Order Comment: No: Do not add to previou s draw 3D CT THORACIC SPINE WO CONT RASTon 06-16-[address] THORACIC SPINE WO CONTRAST [facility] [address] [place] [address] Patient Name: DESEAN LANDRY : 2Sex: MAge: Race: WhiteMRN: [id number]. Location: [id number] Status: IVisit #: [id number] Date: 06/16/2017 10:45:00 AMCompleted Date: 06/16/2017 11:32 AMRequesting Provider: NADEEN SALCEDO Attending Provider: NADEEN SALCEDO Report Copy To: Signs & Symptoms: Back Pain (specify level)History: Patient history not availableComments: R/O Fractures, History of Fall and c/o Back Pain. Rule out fractureExam: 3D CT THORACIC SPINE WO CONTRASTAccession #: [id number] 3D CT THORACIC SPINE WO CONTRAST 06/16/2017 [...] findings. Electronically signed by:Srinath Meyer. Transcribed by: [email or web address], User Resident: CAN HARRISElectronically Signed by: SRINATH MEYER @ 06/16/2017 12:03 PMI personally read this/these film(s) with this resident Normal [facility] Comment on above: Order Comment: No: Do not add to previou s draw BASIC METABOLIC PANELon Calcium 7.9 mg/dL Low 8.6-10.3 [facility] Comment on above: Order Comment: No: Do not add to previou s draw Performed By: #### 0 0071, 24835 ####[facility] [facility] [place] [address], [facility] Chloride 112 mmol/L High 98-107 [facility] Comment on above: Order Comment: No: Do not add to previou s draw Performed By: #### 0 0071, 98840 ####[facility] [place] [address], [facility] CO2 22 mmol/L Normal 21-31 [facility] Comment on above: Order Comment: No: Do not add to previou s draw Performed By: #### 0 0071, 56830 ####[facility] [place] [address], [facility] Creatinine 1.05 mg/dL Normal 0.70-1.30 [facility] Comment on above: Order Comment: No: Do not add to previou s draw Performed By: #### 0 0071, 32311 ####[facility] eGFR (black) mL/min/{1.73_m2} Normal >60 [facility] Comment on above: Order Comment: No: Do not add to previou s draw Result Comment: Calc ulation may not be valid for patients over 70 years Performed By: #### 0 0071, 05710 ####[facility] eGFR (non-black) mL/min/{1.73_m2} Normal >60 Th e [facility] Comment on above: Order Comment: No: Do not add to previou s draw Result Comment: Calc ulation may not be valid for patients over 70 years Performed By: #### 0 0071, 74661 ####[facility] [place] [address], [facility] Glucose mass conc 102 mg/dL High 70-100 [facility] Comment on above: Order Comment: No: Do not add to previou s draw Performed By: #### 0 0071, 86013 ####[facility] [place] [address], [facility] Potassium molar conc 4.0 mmol/L Normal 3.5-5.1 [facility] Comment on above: Order Comment: No: Do not add to previou s draw Performed By: #### 0 0071, 45559 ####[facility] [place] [address], [facility] Sodium 139 mmol/L Normal 136-145 [facility] Comment on above: Order Comment: No: Do not add to previou s draw Performed By: #### 0 0071, 16313 ####[facility] [place] [address], [facility] Urea nitrogen 20 mg/dL Normal 7-25 [facility] Comment on above: Order Comment: No: Do not add to previou s draw Performed By: #### 0 0071, 70352 ####[facility] [place] [address], [facility] BNP (B-TYPE NATRIURETIC PEPT DEANNE)on 01-02-2018 BNP 1298 pg/mL High 0-100 [facility] Comment on above: Order Comment: No: Do not add to previou s draw Result Comment: Give n the appropriate clinical setting a BNP result of >100 pg/mLindicates congestive heart failure. Performed By: #### 5 0608 ####[facility] CBC COMPLETE BLOOD COUNTon 0 06-16-2017 Erythrocyte distribution width Auto Ratio (RBC) 13.7 % Normal 11.5-16.9 [facility] Comment on above: Order Comment: No: Do not add to previou s draw Performed By: #### 0 0071, 61122 ####[facility] Erythrocytes (RBC) 4.24 mill/mm3 Low 4.30-5.90 [facility] Comment on above: Order Comment: No: Do not add to previou s draw Performed By: #### 0 0071, 13750 ####[facility] Hematocrit (HCT) 40.7 % Normal 39.0-55.0 [facility] Comment on above: Order Comment: No: Do not add to previou s draw Performed By: #### 0 0071, 61103 ####[facility] Hemoglobin mass conc (Bld) 13.6 g/dL Low 13.9-16.3 [facility] Comment on above: Order Comment: No: Do not add to previou s draw Performed By: #### 0 0071, 26515 ####[facility] MCH 32.1 pg High 24.0-32.0 [facility] Comment on above: Order Comment: No: Do not add to previou s draw Performed By: #### 0 0071, 11540 ####[facility]3000 [facility].[address] MCHC mass conc (RBC) 33.4 g/dL Normal 32.0-36.0 [facility] Comment on above: Order Comment: No: Do not add to previou s draw Performed By: #### 0 0071, 33645 ####[facility]3000 [facility].[address] MCV 96.1 fL Normal 80.0-100.0 [facility] Comment on above: Order Comment: No: Do not add to previou s draw Performed By: #### 0 0071, 41310 ####[facility]3000 [facility].[address] PLAT CNT 120 Thou/mm3 Normal 100-400 [facility] Comment on above: Order Comment: No: Do not add to previou s draw Performed By: #### 0 0071, 35566 ####[facility]3000 [facility].[address] WBC (Leukocytes) 10.3 Thou/mm3 High 4.0-10.0 [facility] Comment on above: Order Comment: No: Do not add to previou s draw Performed By: #### 0 0071, 69870 ####[facility]3000 [facility].[address] CPKon 06-16-2017 Creatine kinase (CK) 2950 U/L Critically high 30-223 [facility] Comment on above: Performed By: #### 48044, 63676 ####[facility] CR-PORTABLE CHEST 1 VIEW IMP Emeli 06-16-2017 CR-PORTABLE CHEST 1 VIEW IMPORT Images were obtained outside of [facility] [id number] Normal [facility] CT CHEST WO CONTRASTon 06-16 CT CHEST WO CONTRAST [facility] [address] [place] [address] Patient Name: DESEAN LANDRY : 2Sex: MAge: Race: WhiteMRN: [id number]. Location: [id number] Status: IVisit #: [id number] Date: 06/16/2017 5:25:00 PMCompleted Date: 06/16/2017 06:06 PMRequesting Provider: RAFFAELE GARCIA Attending Provider: NADEEN SALCEDO Report Copy To: Signs & Symptoms: Shortness of BreathHistory: Patient history not availableComments: R/O Pleural Effusion, please comment about pleural effusionExam: CT CHEST WO CONTRASTAccession #: [id number] CT CHEST WO CONTRAST 06/16/2017 6:06 PM [...] findings. Electronically signed by:Xiomara Christine. Transcribed by: [email or web address], User Resident: SUNITHA CAMACHOElectronically Signed by: XIOMARA CHRISTINE @ 06/17/2017 01:24 PMI personally read this/these film(s) with this resident Normal [facility] Comment on above: Order Comment: No: Do not add to previou s draw CT-3D CT LUMBAR SPINE WO CON TRAST IMPORTon 06-16-2017 CT-3D CT LUMBAR SPINE WO CONTRAST IMPORT Images were obtained outside of [facility] [id number] Normal [facility] CT-3D CT THORACIC SPINE WO C ONTRAST IMPORTon 06-16-2017 CT-3D CT THORACIC SPINE WO CONTRAST IMPORT Images were obtained outside of [facility] [id number] Normal [facility] CT-CT CHEST WO CONTRAST IMPO RTon 06-16-2017 CT-CT CHEST WO CONTRAST IMPORT Images were obtained outside of [facility] [id number] Normal [facility] MYOGLOBINon 06-16-2017 Myoglobin 872 ng/mL Critically high 0-90 [facility] Comment on above: Result Comment: A DOUBLING OF VALUES FRO M SERIAL BLOOD COLLECTIONS(1 - 2 HOURS APART) IS MORE INDICATIVE OF A M.I.THAN THE ABSOLUTE VALUE. Performed By: #### 0 0071, 45505 ####[facility] [place] [address] PORTABLE CHEST 1 VIEWon PORTABLE CHEST 1 VIEW [facility] [address] [place] [address] Patient Name: DESEAN LANDRY : 1940ex: MAge: Race: WhiteMRN: [id number]. Location: [id number] Status: IVisit #: [id number] Date: 06/16/2017 12:50:00 PMCompleted Date: 06/16/2017 01:22 PMRequesting Provider: NADEEN SALCEDO Attending Provider: NADEEN SALCEDO Report Copy To: Signs & Symptoms: O2 DesaturationHistory: Patient history not availableComments: R/O AspirationExam: PORTABLE CHEST 1 VIEWAccession #: [id number] PORTABLE CHEST 1 VIEW 06/16/2017 1:22 PM [...] chest. Electronically signed by:Srinath Meyer. Transcribed by: [email or web address], User Resident: Electronically Signed by: SRINATH MEYER @ 06/16/2017 01:25 PM Normal [facility] Comment on above: Order Comment: No: Do not add to previou s draw PROTHROMBIN TIMEon 8 INR Coag RelTime (PPP) 1.51 {INR} High 0.91-1.16 [facility] Comment on above: Order Comment: [...] OF ACTION, CLINICALEFFECTIVENESS, AND OPTIMAL THERAPEUTIC RANGE. [id number]-246S. Performed By: #### 5 0608 ####[facility] Prothrombin time (PT) Coag time (PPP) 18.4 s High 12.3-14.8 [facility] Comment on above: Order Comment: No: Do not add to previou s draw Result Comment: ALL RESULTS MUST BE INTERPRETED WITH RESPECT TO BLOOD DRAWING ARTIFACTOR DILUTION ERROR OF ANTICOAGULANT AT THE TIME OF SAMPLING. Performed By: #### 5 0608 ####[facility] BASIC METABOLIC PANELon 01-0 Calcium 8.0 mg/dL Low 8.6-10.3 [facility] Comment on above: Order Comment: No: Do not add to previou s draw Performed By: #### 0 0071, 97646, 70410, 40169 ####[facility] Chloride 109 mmol/L High 98-107 [facility] Comment on above: Order Comment: No: Do not add to previou s draw Performed By: #### 0 0071, 13783, 88433, 29668 ####[facility] [place] [address], [facility] CO2 21 mmol/L Normal 21-31 [facility] Comment on above: Order Comment: No: Do not add to previou s draw Performed By: #### 0 0071, 37483, 36930, 06430 ####[facility] [place] [address], [facility] Creatinine 1.15 mg/dL Normal 0.70-1.30 [facility] Comment on above: Order Comment: No: Do not add to previou s draw Performed By: #### 0 0071, 71103, 28483, 59675 ####[facility] [place] [address], [facility] eGFR (black) mL/min/{1.73_m2} Normal >60 [facility] Comment on above: Order Comment: No: Do not add to previou s draw Result Comment: Calc ulation may not be valid for patients over 70 years Performed By: #### 0 0071, 06098, 56647, 08046 ####[facility] [place] [address], [facility] eGFR (non-black) mL/min/{1.73_m2} Normal >60 Th [facility] Comment on above: Order Comment: No: Do not add to previou s draw Result Comment: Calc ulation may not be valid for patients over 70 years Performed By: #### 0 0071, 92901, 89081, 65033 ####[facility] [place] [address], [facility] Glucose mass conc 117 mg/dL High 70-100 [facility] Comment on above: Order Comment: No: Do not add to previou s draw Performed By: #### 0 0071, 31722, 17931, 31167 ####[facility] [place] [address], [facility] Potassium molar conc 3.9 mmol/L Normal 3.5-5.1 [facility] Comment on above: Order Comment: No: Do not add to previou s draw Performed By: #### 0 0071, 06393, 70089, 15919 ####[facility] [place] [address], [facility] Sodium 138 mmol/L Normal 136-145 [facility] Comment on above: Order Comment: No: Do not add to previou s draw Performed By: #### 0 0071, 71299, 83041, 21442 ####[facility] [place] [address], [facility] Urea nitrogen 23 mg/dL Normal 7-25 [facility] Comment on above: Order Comment: No: Do not add to previou s draw Performed By: #### 0 0071, 97484, 99919, 14075 ####[facility] CBC COMPLETE BLOOD COUNTon 0 06-15-2017 Erythrocyte distribution width Auto Ratio (RBC) 13.7 % Normal 11.5-16.9 [facility] Comment on above: Order Comment: No: Do not add to previou s draw Performed By: #### 5 0608 ####[facility] [facility].[address] Erythrocytes (RBC) 4.44 mill/mm3 Normal 4.30-5.90 [facility] Comment on above: Order Comment: No: Do not add to previou s draw Performed By: #### 5 0608 ####[facility]3000 [facility].[address] Hematocrit (HCT) 42.7 % Normal 39.0-55.0 [facility] Comment on above: Order Comment: No: Do not add to previou s draw Performed By: #### 5 0608 ####[place] [address] [facility].[address] Hemoglobin mass conc (Bld) 14.5 g/dL Normal 13.9-16.3 [facility] Comment on above: Order Comment: No: Do not add to previou s draw Performed By: #### 5 0608 ####[facility] [facility].[address] MCH 32.7 pg High 24.0-32.0 [facility] Comment on above: Order Comment: No: Do not add to previou s draw Performed By: #### 5 0608 ####[facility] [place] [address], [facility] MCHC mass conc (RBC) 34.0 g/dL Normal 32.0-36.0 [facility] Comment on above: Order Comment: No: Do not add to previou s draw Performed By: #### 5 0608 ####[facility]3000 [facility].[address] MCV 96.1 fL Normal 80.0-100.0 [facility] Comment on above: Order Comment: No: Do not add to previou s draw Performed By: #### 5 0608 ####[facility]3000 [facility].[address] PLAT CNT 134 Thou/mm3 Normal 100-400 [facility] Comment on above: Order Comment: No: Do not add to previou s draw Performed By: #### 5 0608 ####[facility]3000 [facility].[address] WBC (Leukocytes) 11.3 Thou/mm3 High 4.0-10.0 [facility] Comment on above: Order Comment: No: Do not add to previou s draw Performed By: #### 5 0608 ####[facility]3000 [facility].[address] CPKon 06-15-2017 Creatine kinase (CK) 7925 U/L Critically high 30-223 [facility] Comment on above: Order Comment: No: Do not add to previou s draw Performed By: #### 0 0071, 77680 ####[facility]3000 [facility].[address] MAGNESIUM BLOODon 06-15-2017 Magnesium 2.4 mg/dL Normal 1.9-2.7 [facility] Comment on above: Performed By: #### 91518, 47582 ####[facility] [place] [address], [facility] PHOSPHORUS BLOODon 8 Phosphate 2.6 mg/dL Normal 2.5-5.0 [facility] Comment on above: Performed By: #### 74535, 71169 ####[facility] [place] [address], [facility] BASIC METABOLIC PANELon 12-3 Calcium 8.3 mg/dL Low 8.6-10.3 [facility] Comment on above: Order Comment: No: Do not add to previou s draw Performed By: #### 4 1000, 56927, 03621, 94803, 74175 ####[facility] [place] [address], [facility] Chloride 107 mmol/L Normal 98-107 [facility] Comment on above: Order Comment: No: Do not add to previou s draw Performed By: #### 4 1000, 31493, 25618, 17288, 62749 ####[facility] [place] [address], [facility] CO2 23 mmol/L Normal 21-31 [facility] Comment on above: Order Comment: No: Do not add to previou s draw Performed By: #### 4 1000, 02685, 08501, 23694, 58075 ####[facility] [place] [address], [facility] Creatinine 1.25 mg/dL Normal 0.70-1.30 [facility] Comment on above: Order Comment: No: Do not add to previou s draw Performed By: #### 4 1000, 35208, 40724, 46825, 94796 ####[facility] [place] [address], [facility] eGFR (black) mL/min/{1.73_m2} Normal >60 [facility] Comment on above: Order Comment: No: Do not add to previou s draw Result Comment: Calc ulation may not be valid for patients over 70 years Performed By: #### 4 1000, 27395, 88568, 57589, 07652 ####[facility] eGFR (non-black) 56 ml/min/1.73sq m Abnormal >60 [facility] Comment on above: Order Comment: No: Do not add to previou s draw Result Comment: Calc ulation may not be valid for patients over 70 years Performed By: #### 4 1000, 50395, 98011, 35221, 89359 ####[facility] Glucose mass conc 109 mg/dL High 70-100 [facility] Comment on above: Order Comment: No: Do not add to previou s draw Performed By: #### 4 1000, 64100, 86306, 13604, 61153 ####[facility] [place] [address], [facility] Potassium molar conc 4.3 mmol/L Normal 3.5-5.1 [facility] Comment on above: Order Comment: No: Do not add to previou s draw Performed By: #### 4 1000, 89052, 32615, 45364, 92628 ####[facility] [place] [address], [facility] Sodium 136 mmol/L Normal 136-145 [facility] Comment on above: Order Comment: No: Do not add to previou s draw Performed By: #### 4 1000, 72760, 66967, 89762, 99401 ####[facility] Urea nitrogen 25 mg/dL Normal 7-25 [facility] Comment on above: Order Comment: No: Do not add to previou s draw Performed By: #### 4 1000, 12256, 16171, 76652, 45941 ####[facility] [place] [address], [facility] CBC COMPLETE BLOOD COUNTon Erythrocyte distribution width Auto Ratio (RBC) 13.8 % Normal 11.5-16.9 [facility] Comment on above: Order Comment: No: Do not add to previou s draw Performed By: #### 5 0608 ####[facility] [place] [address], [facility] Erythrocytes (RBC) 4.83 mill/mm3 Normal 4.30-5.90 [facility] Comment on above: Order Comment: No: Do not add to previou s draw Performed By: #### 5 0608 ####[facility] [place] [address], [facility] Hematocrit (HCT) 46.7 % Normal 39.0-55.0 [facility] Comment on above: Order Comment: No: Do not add to previou s draw Performed By: #### 5 0608 ####[facility] [place] [address], [facility] Hemoglobin mass conc (Bld) 15.8 g/dL Normal 13.9-16.3 [facility] Comment on above: Order Comment: No: Do not add to previou s draw Performed By: #### 5 0608 ####[facility] [place] [address], [facility] MCH 32.7 pg High 24.0-32.0 [facility] Comment on above: Order Comment: No: Do not add to previou s draw Performed By: #### 5 0608 ####[facility] [place] [address], [facility] MCHC mass conc (RBC) 33.9 g/dL Normal 32.0-36.0 [facility] Comment on above: Order Comment: No: Do not add to previou s draw Performed By: #### 5 0608 ####[facility] [place] [address], [facility] MCV 96.6 fL Normal 80.0-100.0 [facility] Comment on above: Order Comment: No: Do not add to previou s draw Performed By: #### 5 0608 ####[facility] [place] [address], [facility] PLAT CNT 135 Thou/mm3 Normal 100-400 [facility] Comment on above: Order Comment: No: Do not add to previou s draw Performed By: #### 5 0608 ####[facility] [place] [address], [facility] WBC (Leukocytes) 15.7 Thou/mm3 High 4.0-10.0 [facility] Comment on above: Order Comment: No: Do not add to previou s draw Performed By: #### 5 0608 ####[facility] CPKon 06-14-2017 Creatine kinase (CK) 70318 U/L Critically high 30-223 [facility] Comment on above: Performed By: #### 79650, 96954, 90260, 22714, 21017 ####[facility] MAGNESIUM BLOODon 06-14-2017 Magnesium 2.8 mg/dL High 1.9-2.7 [facility] Comment on above: Order Comment: No: Do not add to previou s draw Performed By: #### 4 1000, 83265, 67620, 50246, 97617 ####[facility] [place] [address], [facility] PHOSPHORUS BLOODon 7 Phosphate 3.3 mg/dL Normal 2.5-5.0 [facility] Comment on above: Order Comment: No: Do not add to previou s draw Performed By: #### 4 1000, 93112, 76723, 09941, 18714 ####[facility] [place] [address], [facility] TSHon 06-14-2017 Thyroid stimulating hormone (TSH) 2.65 MICRO-IU/ML Normal 0.34-5.60 [facility] Comment on above: Performed By: #### 97621, 62017, 56475, 06575, 38968 ####[facility] BASIC METABOLIC PANELon 12-3 Calcium 8.4 mg/dL Low 8.6-10.3 [facility] Comment on above: Order Comment: No: Do not add to previou s draw Performed By: #### 0 0071, 80166 ####[facility] [place] [address], [facility] Chloride 105 mmol/L Normal 98-107 [facility] Comment on above: Order Comment: No: Do not add to previou s draw Performed By: #### 0 0071, 79202 ####[facility] [place] [address], [facility] CO2 26 mmol/L Normal 21-31 [facility] Comment on above: Order Comment: No: Do not add to previou s draw Performed By: #### 0 0071, 09182 ####[facility] [place] [address], [facility] Creatinine 1.26 mg/dL Normal 0.70-1.30 [facility] Comment on above: Order Comment: No: Do not add to previou s draw Performed By: #### 0 0071, 51530 ####[facility] [place] [address], [facility] eGFR (black) mL/min/{1.73_m2} Normal >60 [facility] Comment on above: Order Comment: No: Do not add to previou s draw Result Comment: Calc ulation may not be valid for patients over 70 years Performed By: #### 0 0071, 83716 ####[facility] [place] [address], [facility] eGFR (non-black) 56 ml/min/1.73sq m Abnormal >60 [facility] Comment on above: Order Comment: No: Do not add to previou s draw Result Comment: Calc ulation may not be valid for patients over 70 years Performed By: #### 0 0071, 38079 ####[facility] [place] [address], [facility] Glucose mass conc 106 mg/dL High 70-100 [facility] Comment on above: Order Comment: No: Do not add to previou s draw Performed By: #### 0 0071, 15661 ####[facility] [place] [address], [facility] Potassium molar conc 4.8 mmol/L Normal 3.5-5.1 [facility] Comment on above: Order Comment: No: Do not add to previou s draw Performed By: #### 0 0071, 46043 ####[facility] [place] [address], [facility] Sodium 138 mmol/L Normal 136-145 [facility] Comment on above: Order Comment: No: Do not add to previou s draw Performed By: #### 0 0071, 81584 ####[facility] [place] [address], [facility] Urea nitrogen 23 mg/dL Normal 7-25 [facility] Comment on above: Order Comment: No: Do not add to previou s draw Performed By: #### 0 0071, 36397 ####[facility] [place] [address], [facility] CPKon 06-13-2017 Creatine kinase (CK) 06983 U/L Critically high 30-223 [facility] Comment on above: Order Comment: No: Do not add to previou s draw Performed By: #### 0 0071, 37557 ####[facility] [id number] History and Physicalon 06-13 History and Physical MR[id number] Desean Landry Admitted: 06/13/2017 Date of : 1940 Attending Physician: Arpan Camacho MD Room #: [id number] Discharge Date: HISTORY AND PHYSICALPRIMARY CARE PHYSICIAN: [...] management.The patient presented to the [facility] Emergency Department. Overthere, the patient had initial workup revealed severe rhabdomyolysis, sothe patient was referred to the [facility] for further evaluationand management. Denying any chest [...] Dict: 06/13/2017/06:07 P/Mariangel Hayes Trans: 06/13/2017 06:38 P/[id number] Normal [facility] Encounters Encounter Date Encounter Type Care Provider Facility Start: 02-18-2023 End: 02-18-2023 ambulatory DRAGAN PEPPER [facility] Start: 12-05-2022 End: 12-05-2022 ambulatory AYDE WAGONER [facility] Start: 09-10-2022 End: 09-10-2022 ambulatory MYAH RUSSELL [facility] Start: 09-02-2022 Evaluation and management of inpatient [facility] Start: 09-01-2022 Evaluation and management of inpatient [facility] Start: 09-01-2022 ambulatory [facility] Start: 09-01-2022 End: 09-02-2022 Evaluation and management of inpatient [facility] Start: 08-26-2022 End: 08-27-[address] [...] End: 04-06-2018 Patient encounter procedure CESAR ROWLEY [facility] Start: 09-10-2017 End: 09-11-2017 Patient encounter procedure CESAR ROWLEY [facility] Start: 07-23-2017 End: 07-24-2017 Patient encounter procedure CESAR ROWLEY [facility] Start: 07-23-2017 End: 07-23-2017 Patient encounter procedure KALEB SANDOVAL [facility] Start: 06-13-2017 End: 06-20-2017 Evaluation and management of inpatient ARPAN FRANK Facility:[facility] Procedures Date Procedure Procedure Detail Performing Clinician Start: 07-30-[address] YUAN CASIANO . Comment on above: Performed By: #### P TT, PT #### [facility] [address] [place] [address] [address] Artem Rojas Payers Date Payer Category Payer [employer] ( and others) [id number] 1958 Medicare [id number] 1940 Unknown [id number] 1940 Unknown [id number] 1940 Unknown [id number] 1940 Unknown [id number] 1940 Unknown [id number] 1940 Unknown [id number] Medicare [id number] Progress note 02-18-2023 Note Date & Type Note Facility 02-18-2023 Note [place] [facility] Subjective Desean Landry Jr. is a [...] normal ventricular function, fixed inferior defect (prior FL vs. artifact), normal wall motion, no ischemia. [...] Update 07/08/2017: He was admitted recently to [facility] after falling and having rhabdomyolysis. He was hydrated. He did well. This was possibly related to deconditioning and he is getting physical therapy. He will be soon discharged to home from the halfway. otherwise he has no issues. Update 02/04/2018: [...] No bleeding on (more content not included)... 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 He is tolerating his DOAC with no [...] Friends and Family: Twice a week Attends Taoist Services: More than 4 times per year [...] gums, no snorin (more content not included)... [facility] Progress note 12-05-2022 Note Date & Type Note Facility 12-05-2022 Note Review of Systems All other systems reviewed and are negative. [facility] Progress note 09-10-2022 Note Date & Type Note Facility 09-10-2022 Note Patient seen for wou nd check s/p [employer] pacemaker placement on 09/01/2022 for AF [...] 100 mg BID x7 days. Prescription sent. [facility] Progress note 09-02-2022 Note Date [...] No further OTM concerns at this time. [facility] Progress note 09-02-2022 Note Date & Type Note Facility 09-02-2022 Note Social Work Protection [employer] jaspreet et with patient to discuss dc [...] No further OTM needs at this time. [facility] Procedure note 09-01-2022 Note Date & Type Note Facility 09-01-2022 Note SINGLE CHAMBER PACEM JULIUS IMPLANT PROCEDURE NOTE DATE OF PROCEDURE: 09/01/2022 PERFORMING PHYSICIAN: Dr. Damian Wolf ASSISTANT HEALTH EDUCATOR: Dr.Chandramohan [place] CONSENT: Patient/POA LOCATION: EP Lab PROCEDURE PERFORMED: 1. Implantation of single chamber PPM ([employer]) 2. Ultrasound guided venous access INDICATIONS: [...] using modified seldinger technique using a 5 Icelandic micropunture needle with ultrasound guidance with some difficulty. 0.35??? wire was placed. Local infiltration of 1% Lidocaine was performed, and an incision was created in the left upper chest with prior incision extended. Dissection was then performed using cautery down to the fascial plane above the muscle. Gentle dissection was performed, and a small pocket was made enough for the device. 6 Icelandic Safe sheath was placed over the wire. An active fixation [employer] pacing lead was then delivered through the 6Fsheath to the right ventricle. After confirmation of lead position on orthogonal views ([place] and [place]) to confirm septal position, the screw was activated, and the lead was placed in the right ventricular mid cavity towards the septum. After confirmation of good sensing parameters, injury pattern and pacing thresholds, 10V pacing was done and no diaphragmatic stimulation was noted. It was then secured in the pocket using three 1-0 silk sutures. A [employer] pacemaker generator was then burped with [...] x 2 week. Damian Wolf Cardiac Electrophysiology [facility] Clinical Note 09-01-2022 Note Date & Type Note Facility 09-01-2022 Note Patient: Desean crowley Jr. 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 Use of blood products discussed with patient who. Additional Equipment Requests [facility] Summary Purpose Family History No [...] section and content) DATE CREATED AUTHOR 12/08/2017 [facility] DATE CREATED AUTHOR AUTHOR'S ORGANIZ ATION 05/18/2018 [facility] DATE CREATED AUTHOR AUTHOR'S ORGANIZ ATION 01/16/2021 [facility] DATE CREATED AUTHOR AUTHOR'S ORGANIZ ATION 06/06/2021 [facility] DATE CREATED AUTHOR AUTHOR'S ORGANIZ ATION 09/02/2022 [facility] DATE CREATED AUTHOR AUTHOR'S ORGANIZ ATION 08/24/2023 [facility] FOR RECORDS PERTAINING TO PATIENTS WHO [...] BE BASED ON THE PRIMARY CLINICAL RECORDS. [employer] provides no warranty or guarantee of the accuracy or completeness of information in this document.
--- NOTE | 2024-01-12 10:27 | ED_ITS ---
HPI HPI - General Adult General Stated complaint: LOWER EXTREMITY PAIN Time Seen by Provider: 01/12/24 10:15 Source: patient Mode of arrival: walk-in History of Present Illness HPI narrative: This is a 83-year-old from his home with his legal guardian who is court appointed. He and that he started have increasing pain starting yesterday in his left lower leg. He is supposed to wear support stockings but because of mobility issues he is not able to wear them. He thinks he bumped his leg on a car door getting out of the vehicle recently. He is not running a fever here in the emergency room. He denies any knowledge of having previous infections in his right leg. He has no history of DVT in his legs. He has no short of breath. He has no abdominal pain chest pain headache shortness of breath are all denied. Related Data Home Medications ?Medication ?Instructions ?Recorded ?Confirmed apixaban 5 mg tablet (Eliquis) 5 mg PO Q12H 08/19/23 01/12/24 cholecalciferol (vitamin D3) 50 50 mcg PO DAILY 08/19/23 01/12/24 mcg (2,000 unit) capsule (Vitamin D3) dicyclomine 20 mg tablet 20 mg PO TID 08/19/23 01/12/24 glimepiride 2 mg tablet 2 mg PO DAILY 08/19/23 01/12/24 spironolactone 25 mg tablet 25 mg PO DAILY 08/19/23 01/12/24 aspirin 81 mg chewable tablet 1 tab PO DAILY 01/12/24 01/12/24 simvastatin 20 mg tablet 20 mg PO QPM 01/12/24 01/12/24 Allergies Allergy/AdvReac Type Severity Reaction Status Date / Time No Known Drug Allergies Allergy Verified 08/19/23 13:53 Opioid HPI Opioid Management Most Recent Opioid Data: Last Pain Scale 6 08/19/23 14:34 PFSH PFSH Medical History (Updated 01/12/24 @ 11:49 by Michael Curry MD) High cholesterol ?E78.00 - Pure hypercholesterolemia, unspecified (ICD-10) Afib ?I48.91 - Unspecified atrial fibrillation (ICD-10) Cardiac pacemaker ?Z95.0 - Presence of cardiac pacemaker (ICD-10) Edema ?R60.9 - Edema, unspecified (ICD-10) Social History Smoking status: Former smoker Exam Narrative Exam Narrative: Awake alert actually cognition and mentation orientation are excellent. He seems to be a reliable historian confirmed by his legal guardian who is here. He does not have any family members. HEENT shows no evidence of pallor or scleral icterus or anemia. Airway is patent voice is normal. There is no respiratory distress his pulse exam is normal at 97% on room air. Heart sounds are regular he does have a pacemaker in his upper left chest. He does take blood thinners. Do not hear any heart murmur at this time. His abdomen is not tender there is no guarding rebound rigidity or discomfort with palpation. He moves all the extremities has normal sensation. The left lower extremity has substantial edema and cellulitis with oozing weeping discharge and a small abrasion on the posterior lateral distal leg possibly the nidus of infection. The intertriginous spaces are normal. The knee joint is unremarkable. He has no pain in his hip on either side. The right leg has chronic venous stasis but no other abnormalities. Constitutional Vital Signs, click to edit/add: Last Vital Signs Temp 97.7 F 01/12/24 10:13 Pulse 60 01/12/24 10:13 Resp 16 01/12/24 10:13 BP 148/81 H 01/12/24 10:13 Pulse Ox 97 01/12/24 10:13 O2 Del Method Room Air 01/12/24 10:13 Course Vital Signs Vital signs: Vital Signs Temperature 97.7 F 01/12/24 10:13 Pulse Rate 60 01/12/24 10:13 Respiratory Rate 16 01/12/24 10:13 Blood Pressure 148/81 H 01/12/24 10:13 Pulse Oximetry 97 01/12/24 10:13 Oxygen Delivery Method Room Air 01/12/24 10:13 Temperature 97.7 F 01/12/24 10:13 Pulse Rate 60 01/12/24 10:13 Respiratory Rate 16 01/12/24 10:13 Blood Pressure 148/81 H 01/12/24 10:13 Pulse Oximetry 97 01/12/24 10:13 Oxygen Delivery Method Room Air 01/12/24 10:13 Medical Decision Making MDM Narrative Medical decision making narrative: Patient presents with increasing pain swelling and redness to the leg. It does not appear to be DVT but we will get Doppler study. Clearly there is an infectious process and so he will be started on Ancef. I discussed the case with his attending physician who will admit him for ongoing care and further delineation of antibiotic therapy. Blood cultures have been done as well as comprehensive metabolic profile. Vital signs do not suggest any evidence of the sepsis syndrome. Discharge Plan Discharge Chief Complaint: Extremity Problem, Nontraumatic Clinical Impression: Cellulitis of left leg Patient Disposition: Admitted as Observation Time of Disposition Decision: 11:49 Prescriptions / Home Meds: No Action spironolactone 25 mg tablet 25 mg PO DAILY glimepiride 2 mg tablet 2 mg PO DAILY dicyclomine 20 mg tablet 20 mg PO TID cholecalciferol (vitamin D3) [Vitamin D3] 50 mcg (2,000 unit) capsule 50 mcg PO DAILY Eliquis 5 mg tablet 5 mg PO Q12H methocarbamol 500 mg tablet 500 mg PO TID PRN (Reason: muscle pain) Qty: 15 0RF tramadol 50 mg tablet 50 mg PO Q6H PRN (Reason: pain) 3 Days Qty: 15 0RF Rx Instructions: DX: M54.5 Print Language: Mongolian Referrals: Vahid Garcia MD [Primary Care Provider] - 1 week
--- NOTE | 2024-01-12 10:40 | PC.NURSE ---
ER DR assessment with pulses in bilat feet complete, bilat lower extremities red, warm to touch with edema to bilat ankles and feet with the left larger then the right. small area behind left lower extremity has clear drainage
[2024-01-12 11:06] LABS: Basophils Absolute Auto 0.1 10^3/uL (0.0-0.1); Basophils Percent Auto 0.8 % (0.2-2.0); Eosinophils Absolute Auto 0.2 10^3/uL (0.0-0.7); Eosinophils Percent Auto 1.8 % (0.9-7.0); Hemoglobin 14.1 g/dL (14.0-18.0); Immature Granulocytes Abs Auto 0.03 10^3/uL (0.00-0.03); Immature Granulocytes Pct Auto 0.3 % (0.0-0.5); Lymphocytes Absolute Auto 1.7 10^3/uL (1.2-3.8); Lymphocytes Percent Auto 16.7 % (20.5-60.0); Mean Corpuscular Hemoglobin 30.9 pg (25.9-34.0); Mean Corpuscular Volume 96.5 fL (80.0-94.0); Mean Platelet Volume 10.4 fL (9.5-13.5); Monocytes Percent Auto 9.7 % (1.7-12.0); Neutrophils Absolute Auto 7.1 10^3/uL (1.4-6.5); Neutrophils Percent Auto 70.7 % (43.0-75.0); Platelet Count 207 10^3/uL (150-450); Red Blood Count 4.56 10^6/uL (4.70-6.10); Red Cell Distribution Width 13.5 % (11.0-15.0); White Blood Count 10.1 10^3/uL (4.0-11.0)
[2024-01-12 11:16] LABS: INR 1.04
[2024-01-12 11:27] LABS: Lactate/Lactic Acid 1.6 mmol/L (0.4-2.0)
[2024-01-12] MEDS: CEFAZOLIN SODIUM/DEXTROSE,ISO 2 GM/50 ML PIGGYBACK IV (11:27)
[2024-01-12 11:42] LABS: Bilirubin Urine NEGATIVE (NEGATIVE); Blood Urine NEGATIVE (NEGATIVE); Clarity Urine CLEAR (CLEAR); Color Urine LT. YELLOW (YELLOW); Glucose Urine UA NEGATIVE (NEGATIVE); Ketones Urine NEGATIVE (NEGATIVE); Leukocyte Esterase Urine NEGATIVE (NEGATIVE); Nitrite Urine NEGATIVE (NEGATIVE); Protein Urine NEGATIVE (NEG/TRACE); Specific Gravity Urine <=1.005 (1.005-1.025); Urine Microscopic Indicated NO; Urobilinogen Urine 0.2 EU/dL (0.2-1.0)
[2024-01-12 12:01] LABS: Alanine Aminotransferase 15 U/L (16-63); Albumin Level 3.3 g/dL (3.4-5.0); Alkaline Phosphatase 79 U/L (46-116); Anion Gap 13.8; Aspartate Amino Transferase 16 U/L (15-37); Bilirubin Total 0.6 mg/dL (0.2-1.0); Carbon Dioxide 27.8 mmol/L (21.0-32.0); Chloride 106 mmol/L (98-107); Estimated GFR (African America >60 (>=60); Estimated GFR (Non-African Ame >60 (>=60); Globulin 3.2 g/dL; Glucose 96 mg/dL (74-106); Potassium 4.6 mmol/L (3.5-5.1); Sodium 143 mmol/L (136-145); Total Protein 6.5 g/dL (6.4-8.2)
--- OUTSIDE RECORDS SUMMARY | 2024-01-12 12:58 | XMS_ITS | CCD ---
Author Organization [facility] Care Team Providers Care Telehealth Coordinator Name Role Phone ARPAN CAMACHO Unavailable Unavailable SAHRA GILMORE Unavailable Unavailable HOY DIOGENES Unavailable Unavailable GAIL RENLAS Unavailable Unavailable LORI, RENDELL Unavailable Unavailable LORI, RENDELL Unavailable Unavailable LOY MORAHEL (FASHION INTERN) Unavailable Unavailable LORI, RENDELL Unavailable Unavailable LORI, [...] Onset: 03-04-2022 Episodic Other aftercare (1 source) skilled nursing (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; Translations: [RETAIL EVENT ASSISTANT (CURRENT) USE OF ANTICOAGULANTS] Onset: 06-13-2017 Episodic Other aftercare (1 source) skilled nursing (current) use of oral hypoglycemic drugs; Translations: [RETAIL EVENT ASSISTANT USE ORAL HYPOGLYCEMIC DX] Onset: 03-04-2022 Episodic Other aftercare (1 source) Other fpc (current) drug therapy; Translations: [OTH RETAIL EVENT ASSISTANT CURRENT DRUG THERAPY] Onset: 03-04-2022 Episodic Other [...] Range Facility Orders Onlyon 08-19-2023 Orders Only [id number] Jordin Landry Jr. 1940 Date Provider Department Center 08/19/2023 241DAMIAN VITALE [facility] ERIKA Whitaker Family History Problem Relation Age of Onset Cancer Mother Family Status - Relation Status Age at Mother Normal [facility] Office Visiton 02-18-2023 Follow-up visit [id number] Jordin Landry Jr. 1940 M Date Provider Department Center 02/18/2023 DRAGAN BALDWIN ERIKA [facility] Family History Problem Relation Age of Onset Cancer Mother Family Status - Relation Status Age at Mother Level of Service:76870 NM OFFICE/OUTPATIENT ESTABLISHED LOW MDM 20-29 MIN Reason for Visit and Comments: Follow-up [822844] - Pt is here f/U [facility] Office Visiton 12-05-2022 Follow-up visit [id number] Jordin Landry Jr. 1940 M Date Provider Department [place] 12/05/2022 AYDE ZHENG ERIKA Guillen Family History Problem Relation Age of Onset Cancer Mother Family Status - Relation Status Age at Mother Level of Service:21838 NM OFFICE/OUTPATIENT ESTABLISHED MOD MDM 30-39 MIN Reason for Visit and Comments: Follow-up [729712] - Pt is her for 3 month F/U [facility] Office Visiton 09-10-2022 Follow-up visit [id number] Jordin Landry Jr. 1940 Date Provider Department [place] 09/10/2022 MYAH COLLINS ERIKA [facility] Family History Problem Relation Age of Onset Cancer Mother Family Status - Relation Status Age at Mother Level of Service:34839 NM POSTOP FOLLOW UP VISIT RELATED TO ORIGINAL PX [facility] 30on 09-02-2022 30 The patient is Moder ately Unstable - Medium risk of patient condition declining or worsening The patient's goals for the shift include Pain Control The clinical goals for the shift include stable vs [facility] 30 The patient is [...] DAILY: Assess and document skin integrity Normal [facility] DSon 09-02-2022 DS Admission Admitted 09/01/2022 [...] Test Results Pending At Discharge none Normal [facility] NURSNOTEon 09-02-2022 NURSNOTE AVS reviewed with nikole gordon and guardizaid Gaspar. No questions or concerns at this time. AVS signed by guardian. Copy of AVS placed in bedside chart. Normal [facility] NURSNOTE RN spoke to Chasity (guardian) in regards to DC orders. Chasity is able to pick patient up around 1700 today. Patient is aware. Normal [facility] HPon 09-01-2022 [facility] Electrophysiology Consult Note Reason for [...] is accompanied today by his power of tax attorney. He is tolerating his DOAC with [...] Neck: suppl (more content not included)... Normal [facility] Electrophysiology Consult Note Reason for visit: [facility] HPI: Desean Landry is a 81 y.o. [...] is accompanied today by his power of tax attorney. He is tolerating his DOAC with [...] done per protocol for PPM implant. Normal [facility] Orders Onlyon 09-01-2022 Orders Only [id number] Jordin Landry meghna Crawford Jr. 1940 M Date Provider Department Center 09/01/2022 RANCHO DENIS [facility] VASC LAB MD [facility] Family History Problem Relation Age of Onset Cancer Mother Family Status - Relation Status Age at Mother Normal [facility] CBC AUTO DIFFon 08-26-2022 BASO # 0.1 103/ul Normal 0.0-0.1 [facility] Comment on above: Performed By: #### CBC #### [facility] [address] [address] [address] Artem Rojas Basophils/100 WBC (Bld) 1.0 % Normal 0.2-2.0 [facility] Comment on above: Performed By: #### CBC #### [facility] [address] [address] [address] Artem Rojas EO # 0.2 103/ul Normal 0.0-0.7 [facility] Comment on above: Performed By: #### CBC #### [facility] [address] [address] [address] Artem Rojas Eosinophils/100 WBC (Bld) 2.0 % Normal 0.9-7.0 [facility] Comment on above: Performed By: #### CBC #### [facility] [address] [address] [address] Artem Rojas Erythrocyte distribution width (RBC) [Ratio] 13.1 % Normal 11.0-15.0 [facility] Comment on above: Performed By: #### CBC #### [facility] [address] [address] [address] Artem Rojas Hematocrit (Bld) [Volume fraction] 43.8 % Normal 42.0-54.0 [facility] Comment on above: Performed By: #### CBC #### [facility] [address] [address] [address] Artem Rojas Hemoglobin (Bld) [Mass/Vol] 14.5 g/dL Normal 14.0-18.0 [facility] Comment on above: Performed By: #### CBC #### [facility] [address] [place] [address] Dr. Artem Rojas IG # 0.07 10e3/ul Critically high 0.00-0.03 [facility] Comment on above: Performed By: #### CBC #### [facility] [address] [place] [address] Dr. Artem Rojas IG % 0.8 % Critically high 0.0-0.5 [facility] Comment on above: Performed By: #### CBC #### [facility] [address] [place] [address] Dr. Artem Rojas LYMPH # 1.8 103/ul Normal 1.2-3.8 [facility] Comment on above: Performed By: #### CBC #### [facility] [address] [place] [address] Dr. Artem Rojas Lymphocytes/100 WBC (Bld) 20.0 % Critically low 20.5-60.0 [facility] Comment on above: Performed By: #### CBC #### [facility] [address] [place] [address] Dr. Artem Rojas MANUAL DIFF REQ NO Normal [facility] Comment on above: Performed By: #### CBC #### [facility] [address] [place] [address] Dr. Artem Rojas MCH (RBC) [Entitic mass] 30.0 pg Normal 25.9-34.0 [facility] Comment on above: Performed By: #### CBC #### [facility] [address] [place] [address] Dr. Artem Rojas MCHC (RBC) [Mass/Vol] 33.1 g/dL Normal 29.9-35.2 [facility] Comment on above: Performed By: #### CBC #### [facility] [address] [place] [address] Dr. Artem Rojas MCV (RBC) [Entitic vol] 90.7 fL Normal 80.0-94.0 [facility] Comment on above: Performed By: #### CBC #### [facility] [address] [place] [address] Dr. Artem Rojas MONO # 0.8 103/ul Normal 0.3-0.8 [facility] Comment on above: Performed By: #### CBC #### [facility] [address] [place] [address] Dr. Artem Rojas Monocytes/100 WBC (Bld) 8.7 % Normal 1.7-12.0 [facility] Comment on above: Performed By: #### CBC #### [facility] [address] [place] [address] Dr. Artem Rojas NEUT # 6.1 103/ul Normal 1.4-6.5 [facility] Comment on above: Performed By: #### CBC #### [facility] [address] [place] [address] Dr. Artem Rojas Neutrophils/100 WBC (Bld) 67.5 % Normal 43.0-75.0 [facility] Comment on above: Performed By: #### CBC #### [facility] [address] [place] [address] Dr. Artem Rojas Platelet mean volume (Bld) [Entitic vol] 9.7 fL Normal 9.5-13.5 [facility] Comment on above: Performed By: #### CBC #### [facility] [address] [place] [address] Dr. Artem Rojas PLT 333 103/ul Normal 150-450 [facility] Comment on above: Performed By: #### CBC #### [facility] [address] [place] [address] Dr. Artem Rojas RBC 4.83 106/ul Normal 4.70-6.10 [facility] Comment on above: Performed By: #### CBC #### [facility] [address] [place] [address] Dr. Artem Rojas WBC 9.0 103/ul Normal 4.0-11.0 [facility] Comment on above: Performed By: #### CBC #### [facility] [address] [place] [address] Dr. Artem Rojas PROF CHEM 8 (BAS METB)on Anion gap [Moles/Vol] 9.4 mmol/L Normal [facility] Comment on above: Performed By: #### PTT, PT #### [facility] [address] [place] [address] Dr. Artem Rojas Calcium [Mass/Vol] 9.4 mg/dL Normal 8.5-10.1 [facility] Comment on above: Performed By: #### PTT, PT #### [facility] [address] [place] [address] Dr. Artem Rojas Chloride [Moles/Vol] 105 mmol/L Normal 98-107 [facility] Comment on above: Performed By: #### PTT, PT #### [facility] [address] [place] [address] Dr. Artem Rojas CO2 [Moles/Vol] 29.3 mmol/L Normal 21.0-32.0 [facility] Comment on above: Performed By: #### PTT, PT #### [facility] [address] [place] [address] Dr. Artem Rojas Creatinine [Mass/Vol] 1.06 mg/dL Normal 0.70-1.30 [facility] Comment on above: Performed By: #### PTT, PT #### [facility] [address] [place] [address] Dr. Artem Rojas EGFR-AF [place] >60 Normal >=60 [facility] Comment on above: Performed By: #### PTT, PT #### [facility] [address] [place] [address] Dr. Artem Rojas EGFR-NON AF [place] >60 Normal >=60 [facility] Comment on above: Performed By: #### PTT, PT #### [facility] [address] [place] [address] Dr. Artem Rojas Glucose [Mass/Vol] 125 mg/dL Critically high 74-106 [facility] Comment on above: Performed By: #### PTT, PT #### [facility] [address] [address] [address] Artem Rojas Potassium [Moles/Vol] 4.3 mmol/L Normal 3.5-5.1 [facility] Comment on above: Performed By: #### PTT, PT #### [facility] [address] [place], [place] [address] Dr. Artem Rojas Sodium [Moles/Vol] 139 mmol/L Normal 136-145 [facility] Comment on above: Performed By: #### PTT, PT #### [facility] [address] [address] [address] Artem Rojas Urea nitrogen [Mass/Vol] 20.0 mg/dL Critically high 7.0-18.0 [facility] Comment on above: Performed By: #### PTT, PT #### [facility] [address] [address] [address] Artem Rojas Urea nitrogen/Creatin ine [Mass ratio] 18.9 mg/mg Normal [facility] Comment on above: Performed By: #### PTT, PT #### [facility] [address] [address] [address] Artem Rojas Orders Onlyon 08-25-2022 Orders Only [id number] Jordin Landry Jr. 1940 Date Provider Department Center 08/25/2022 TROY RIBERA [facility] Family History Problem Relation Age of Onset Cancer Mother Family Status - Relation Status Age at Mother Normal [facility] Covid-19 PCR (CVDTB)on SARS-CoV-2 (COVID-19) RNA MONICA+probe Ql (Unsp spec) Not detected Normal NOT DETECTED [facility] Comment on above: Result Comment: When diagnostic [...] for this test is supported by the [place] of [employer] and Human Service's declaration that [...] Performed By: #### P TT, PT #### [facility] [address] [place] [address] Dr. Artem Rojas INFLUENZA A AND B AGon 08-20 INFLUANEGH SEE BELOW Normal [facility] Comment on above: Result Comment: Negative for Flu A prote in angiten. Infection due to Flu A cannot be ruled out. Flu A angiten in the sample may be below the detection limit of the test. Performed By: #### P TT, PT #### [facility] [address] [place] [address] Dr. Artem Rojas INFLUBNEGH SEE BELOW Normal [facility] Comment on above: Result Comment: Negative for Flu B prote in antigen. Infection due to Flu B cannot be ruled out. Flu B antigen in the sample may be below the detection limit of the test. Performed By: #### P TT, PT #### [facility] [address] [place] [address] Dr. Artem Rojas INFLUENZA A AG Negative Normal NEGATIVE SEE COMMENT [facility] Comment on above: Performed By: #### PTT, PT #### [facility] [address] [place] [address] Dr. Artem Rojas INFLUENZA B AG Negative Normal NEGATIVE SEE COMMENT [facility] Comment on above: Performed By: #### PTT, PT #### [facility] [address] [place] [address] Dr. Artem Rojas INSULINon 07-31-2022 Insulin 16.3 uIU/mL Normal 2.6-24.9 [facility] Comment on above: Performed By: #### PTT, PT #### [facility] [address] [place] [address] Dr. Artem Rojas BNPon 07-30-2022 Natriuretic peptide B (Bld) [Mass/Vol] 1826.0 pg/mL Critically high <=1,800.0 [facility] Comment on above: Performed By: #### CMP, BNP, URIC, TSH, T7, LIPID #### [facility] [address] [place] [address] Dr. Artem Rojas CBC AUTO DIFFon 07-30-2022 BASO # 0.1 103/ul Normal 0.0-0.1 [facility] Comment on above: Performed By: #### PTT, PT #### [facility] [address] [place] [address] Dr. Artem Rojas Basophils/100 WBC (Bld) 1.0 % Normal 0.2-2.0 [facility] Comment on above: Performed By: #### PTT, PT #### [facility] [address] [place] [address] Dr. Artem Rojas EO # 0.2 103/ul Normal 0.0-0.7 [facility] Comment on above: Performed By: #### PTT, PT #### [facility] [address] [place] [address] Dr. Artem Rojas Eosinophils/100 WBC (Bld) 2.4 % Normal 0.9-7.0 [facility] Comment on above: Performed By: #### PTT, PT #### [facility] [address] [place] [address] Dr. Artem Rojas Erythrocyte distribution width (RBC) [Ratio] 13.8 % Normal 11.0-15.0 [facility] Comment on above: Performed By: #### PTT, PT #### [facility] [address] [place] [address] Dr. Artem Rojas Hematocrit (Bld) [Volume fraction] 44.1 % Normal 42.0-54.0 [facility] Comment on above: Performed By: #### PTT, PT #### [facility] [address] [place] [address] Dr. Artem Rojas Hemoglobin (Bld) [Mass/Vol] 14.5 g/dL Normal 14.0-18.0 [facility] Comment on above: Performed By: #### PTT, PT #### [facility] [address] [place] [address] Dr. Artem Rojas IG # 0.02 10e3/ul Normal 0.00-0.03 [facility] Comment on above: Performed By: #### PTT, PT #### [facility] [address] [place] [address] Dr. Artem Rojas IG % 0.2 % Normal 0.0-0.5 [facility] Comment on above: Performed By: #### PTT, PT #### [facility] [address] [place] [address] Dr. Artem Rojas LYMPH # 2.1 103/ul Normal 1.2-3.8 [facility] Comment on above: Performed By: #### PTT, PT #### [facility] [address] [place] [address] Dr. Artem Rojas Lymphocytes/100 WBC (Bld) 24.3 % Normal 20.5-60.0 [facility] Comment on above: Performed By: #### PTT, PT #### [facility] [address] [place] [address] Dr. Artem Rojas MANUAL DIFF REQ NO Normal [facility] Comment on above: Performed By: #### PTT, PT #### [facility] [address] [place] [address] Dr. Artem Rojas MCH (RBC) [Entitic mass] 30.3 pg Normal 25.9-34.0 [facility] Comment on above: Performed By: #### PTT, PT #### [facility] [address] [place] [address] Dr. Artem Rojas MCHC (RBC) [Mass/Vol] 32.9 g/dL Normal 29.9-35.2 [facility] Comment on above: Performed By: #### PTT, PT #### [facility] [address] [place] [address] Dr. Artem Rojas MCV (RBC) [Entitic vol] 92.1 fL Normal 80.0-94.0 [facility] Comment on above: Performed By: #### PTT, PT #### [facility] [address] [place] [address] Dr. Artem Rojas MONO # 0.8 103/ul Normal 0.3-0.8 [facility] Comment on above: Performed By: #### PTT, PT #### [facility] [address] [place] [address] Dr. Artem Rojas Monocytes/100 WBC (Bld) 9.0 % Normal 1.7-12.0 [facility] Comment on above: Performed By: #### PTT, PT #### [facility] [address] [place] [address] Dr. Artem Rojas NEUT # 5.6 103/ul Normal 1.4-6.5 [facility] Comment on above: Performed By: #### PTT, PT #### [facility] [address] [place] [address] Dr. Artem Rojas Neutrophils/100 WBC (Bld) 63.1 % Normal 43.0-75.0 [facility] Comment on above: Performed By: #### PTT, PT #### [facility] [address] [place] [address] Dr. Artem Rojas Platelet mean volume (Bld) [Entitic vol] 10.0 fL Normal 9.5-13.5 [facility] Comment on above: Performed By: #### PTT, PT #### [facility] [address] [place] [address] Dr. Artem Rojas PLT 193 103/ul Normal 150-450 [facility] Comment on above: Performed By: #### PTT, PT #### [facility] [address] [place] [address] Dr. Artem Rojas RBC 4.79 106/ul Normal 4.70-6.10 [facility] Comment on above: Performed By: #### PTT, PT #### [facility] [address] [place] [address] Dr. Artem Rojas WBC 8.8 103/ul Normal 4.0-11.0 [facility] Comment on above: Performed By: #### PTT, PT #### [facility] [address] [place] [address] Dr. Artem Rojas FREE THYROXINE INDEX T7on FTI 2.52 Normal 1.30-4.50 [facility] Comment on above: Performed By: #### CMP, BNP, URIC, TSH, T7, LIPID #### [facility] [address] [place] [address] Dr. Artem Rojas T3U 35.0 % Normal 33.0-40.0 [facility] Comment on above: Performed By: #### CMP, BNP, URIC, TSH, T7, LIPID #### [facility] [address] [place] [address] Dr. Artem Rojas T4 [Mass/Vol] 7.20 ug/dL Normal 4.50-12.10 [facility] Comment on above: Performed By: #### CMP, BNP, URIC, TSH, T7, LIPID #### [facility] [address] [place] [address] Dr. Artem Rojas GLYCOHEMOGLOBIN A1Con 2022 ADA RECOMMENDATION SEE BELOW Normal [facility] Comment on above: Result Comment: ADA RECOMMENDED LIMIT 4. 0 - 6.0 ADA THERAPEUTIC TARGET < 7.0 ACTION SUGGESTED > 7.0 Performed By: #### A 1C #### [facility] [address] [place] [address] Dr. Artem Rojas Glucose [Mass/Vol] 128 mg/dL Normal [facility] Comment on above: Performed By: #### A1C #### [facility] [address] [place] [address] Dr. Artem Rjoas HbA1c (Bld) [Mass fraction] 6.1 % Normal 4.5-6.2 [facility] Comment on above: Performed By: #### A1C #### [facility] [address] [place] [address] Dr. Artem Rojas LIPID PROFILEon 07-30-2022 CHOL-HDL RATIO NORM SEE BELOW Normal [facility] Comment on above: Result Comment: 3.3 - 4.4 LOW RISK 4.4 - 7.1 AVERAGE RISK 7.1 - 11.0 MODERATE RISK >11.0 HIGH RISK Performed By: #### C MP, BNP, URIC, TSH, T7, LIPID #### [facility] [address] [address] [address] Artem Rojas Cholesterol [Mass/Vol] 157 mg/dL Normal <=200 [facility] Comment on above: Performed By: #### CMP, BNP, URIC, TSH, T7, LIPID #### [facility] [address] [address] [address] Artem Rojas Cholesterol in HDL [Mass/Vol] 51 mg/dL Normal 40-60 [facility] Comment on above: Performed By: #### CMP, BNP, URIC, TSH, T7, LIPID #### [facility] [address] [address] [address] Artem Rojas Cholesterol in LDL [Mass/Vol] 86.6 mg/dL Normal [facility] Comment on above: Performed By: #### CMP, BNP, URIC, TSH, T7, LIPID #### [facility] [address] [address] [address] Artem Rojas Cholesterol.tota l/Cholesterol in HDL [Mass ratio] 3.1 {ratio} Normal [facility] Comment on above: Performed By: #### CMP, BNP, URIC, TSH, T7, LIPID #### [facility] [address] [address] [address] Artem Rojas HDL NORMAL > or = 60 mg/dl - LO W CARDIOVASCULAR RISK <40 mg/dl - HIGH CARDIOVASCULAR RISK Normal [facility] Comment on above: Performed By: #### CMP, BNP, URIC, TSH, T7, LIPID #### [facility] [address] [place] [address] Dr. Artem Rojas LDL CALC NORMAL SEE BELOW Normal [facility] Comment on above: Result Comment: <100 mg/dl OPTIMAL 100 - 129 mg/dl NEAR OR ABOVE OPTIMAL 130 - 159 mg/dl BORDERLINE HIGH 160 - 189 mg/dl HIGH >190 mg/dl VERY HIGH Performed By: #### C MP, BNP, URIC, TSH, T7, LIPID #### [facility] [address] [address] [address] Artem Rojas Triglyceride [Mass/Vol] 97 mg/dL Normal <=150 [facility] Comment on above: Performed By: #### CMP, BNP, URIC, TSH, T7, LIPID #### [facility] [address] [place] [address] Dr. Artem Rojas VLDL CALC 19.4 mg/dL Normal [facility] Comment on above: Performed By: #### CMP, BNP, URIC, TSH, T7, LIPID #### [facility] [address] [place] [address] Dr. Artem Rojas PROF 14(COMP METB)on 023 Albumin [Mass/Vol] 3.5 g/dL Normal 3.4-5.0 [facility] Comment on above: Performed By: #### CMP, BNP, URIC, TSH, T7, LIPID #### [facility] [address] [place] [address] Dr. Artem Rojas Albumin/Globulin [Mass ratio] 1.1 {ratio} Normal [facility] Comment on above: Performed By: #### CMP, BNP, URIC, TSH, T7, LIPID #### [facility] [address] [place] [address] Dr. Artem Rojas ALP [Catalytic activity/Vol] 70 U/L Normal 46-116 [facility] Comment on above: Performed By: #### CMP, BNP, URIC, TSH, T7, LIPID #### [facility] [address] [place] [address] Dr. Artem Rojas ALT [Catalytic activity/Vol] 19 U/L Normal 16-63 [facility] Comment on above: Performed By: #### CMP, BNP, URIC, TSH, T7, LIPID #### [facility] [address] [place] [address] Dr. Artem Rojas Anion gap [Moles/Vol] 11.7 mmol/L Normal [facility] Comment on above: Performed By: #### CMP, BNP, URIC, TSH, T7, LIPID #### [facility] [address] [place] [address] Dr. Artem Rojas AST [Catalytic activity/Vol] 18 U/L Normal 15-37 [facility] Comment on above: Performed By: #### CMP, BNP, URIC, TSH, T7, LIPID #### [facility] [address] [place] [address] Dr. Artem Rojas Bilirubin [Mass/Vol] 0.5 mg/dL Normal 0.2-1.0 [facility] Comment on above: Performed By: #### CMP, BNP, URIC, TSH, T7, LIPID #### [facility] [address] [place] [address] Dr. Artem Rojas Calcium [Mass/Vol] 9.3 mg/dL Normal 8.5-10.1 [facility] Comment on above: Performed By: #### CMP, BNP, URIC, TSH, T7, LIPID #### [facility] [address] [place] [address] Dr. Artem Rojas Chloride [Moles/Vol] 105 mmol/L Normal 98-107 [facility] Comment on above: Performed By: #### CMP, BNP, URIC, TSH, T7, LIPID #### [facility] [address] [place] [address] Dr. Artem Rojas CO2 [Moles/Vol] 29.7 mmol/L Normal 21.0-32.0 [facility] Comment on above: Performed By: #### CMP, BNP, URIC, TSH, T7, LIPID #### [facility] [address] [place] [address] Dr. Artem Rojas Creatinine [Mass/Vol] 0.87 mg/dL Normal 0.70-1.30 [facility] Comment on above: Performed By: #### CMP, BNP, URIC, TSH, T7, LIPID #### [facility] [address] [place] [address] Dr. Artem Rojas EGFR-AF [place] >60 Normal >=60 [facility] Comment on above: Performed By: #### CMP, BNP, URIC, TSH, T7, LIPID #### [facility] [address] [place] [address] Dr. Artem Rojas EGFR-NON AF [place] >60 Normal >=60 [facility] Comment on above: Performed By: #### CMP, BNP, URIC, TSH, T7, LIPID #### [facility] [address] [address] [address] Artem Rojas Globulin (S) [Mass/Vol] 3.3 g/dL Normal [facility] Comment on above: Performed By: #### CMP, BNP, URIC, TSH, T7, LIPID #### [facility] [address] [place] [address] Dr. Artem Rojas Glucose [Mass/Vol] 118 mg/dL Critically high 74-106 [facility] Comment on above: Performed By: #### CMP, BNP, URIC, TSH, T7, LIPID #### [facility] [address] [place] [address] Dr. Artem Rojas Potassium [Moles/Vol] 4.4 mmol/L Normal 3.5-5.1 [facility] Comment on above: Performed By: #### CMP, BNP, URIC, TSH, T7, LIPID #### [facility] [address] [place] [address] Dr. Artem Rojas Protein [Mass/Vol] 6.8 g/dL Normal 6.4-8.2 [facility] Comment on above: Performed By: #### CMP, BNP, URIC, TSH, T7, LIPID #### [facility] [address] [place] [address] Dr. Artem Rojas Sodium [Moles/Vol] 142 mmol/L Normal 136-145 [facility] Comment on above: Performed By: #### CMP, BNP, URIC, TSH, T7, LIPID #### [facility] [address] [place] [address] Dr. Artem Rojas Urea nitrogen [Mass/Vol] 19.0 mg/dL Critically high 7.0-18.0 [facility] Comment on above: Performed By: #### CMP, BNP, URIC, TSH, T7, LIPID #### [facility] [address] [place] [address] Dr. Artem Rojas Urea nitrogen/Creatin ine [Mass ratio] 21.8 mg/mg Normal [facility] Comment on above: Performed By: #### CMP, BNP, URIC, TSH, T7, LIPID #### [facility] [address] [place] [address] Dr. Artem Rojas TSHon 07-30-2022 TSH 1.773 uIU/mL Normal 0.358-3.740 [facility] Comment on above: Performed By: #### CMP, BNP, URIC, TSH, T7, LIPID #### [facility] [address] [place] [address] Dr. Artem Rojas URIC ACID SERUMon 07-30-2022 Urate [Mass/Vol] 5.8 mg/dL Normal 3.5-7.2 [facility] Comment on above: Performed By: #### CMP, BNP, URIC, TSH, T7, LIPID #### [facility] [address] [place] [address] Dr. Artem Rojas VITAMIN D 25 OHon 07-30-2022 VIT D 25-OH 65.5 ng/mL Normal [facility] Comment on above: Performed By: #### PTT, PT #### [facility] [address] [place] [address] Dr. Artem Rojas VIT D RANGES SEE BELOW Normal [facility] Comment on above: Result Comment: <20 ng/mL Vit D deficien t 20 - <30 ng/mL Vit D insufficient 30 - 100 ng/mL Vit D sufficient >100 ng/mL Potential Toxicity Performed By: #### P TT, PT #### [facility] [address] [place] [address] Dr. Artem Rojas CBC AUTO DIFFon 03-02-2022 BASO # 0.1 103/ul Normal 0.0-0.1 [facility] Comment on above: Performed By: #### PTT, PT #### [facility] [address] [place] [address] Dr. Artem Rojas Basophils/100 WBC (Bld) 0.5 % Normal 0.2-2.0 [facility] Comment on above: Performed By: #### PTT, PT #### [facility] [address] [place] [address] Dr. Artem Rojas EO # 0.0 103/ul Normal 0.0-0.7 [facility] Comment on above: Performed By: #### PTT, PT #### [facility] [address] [place] [address] Dr. Artem Rojas Eosinophils/100 WBC (Bld) 0.1 % Critically low 0.9-7.0 [facility] Comment on above: Performed By: #### PTT, PT #### [facility] [address] [place] [address] Dr. Artem Rojas Erythrocyte distribution width (RBC) [Ratio] 12.9 % Normal 11.0-15.0 [facility] Comment on above: Performed By: #### PTT, PT #### [facility] [address] [place] [address] Dr. Artem Rojas Hematocrit (Bld) [Volume fraction] 39.7 % Critically low 42.0-54.0 [facility] Comment on above: Performed By: #### PTT, PT #### [facility] [address] [place] [address] Dr. Artem Rojas Hemoglobin (Bld) [Mass/Vol] 13.1 g/dL Critically low 14.0-18.0 [facility] Comment on above: Performed By: #### PTT, PT #### [facility] [address] [place] [address] Dr. Artem Rojas IG # 0.05 10e3/ul Critically high 0.00-0.03 [facility] Comment on above: Performed By: #### PTT, PT #### [facility] [address] [place] [address] Dr. Artem Rojas IG % 0.4 % Normal 0.0-0.5 [facility] Comment on above: Performed By: #### PTT, PT #### [facility] [address] [place] [address] Dr. Artem Rojas LYMPH # 0.8 103/ul Critically low 1.2-3.8 [facility] Comment on above: Performed By: #### PTT, PT #### [facility] [address] [place] [address] Dr. Artem Rojas Lymphocytes/100 WBC (Bld) 5.7 % Critically low 20.5-60.0 [facility] Comment on above: Performed By: #### PTT, PT #### [facility] [address] [place] [address] Dr. Artem Rojas MANUAL DIFF REQ NO Normal [facility] Comment on above: Performed By: #### PTT, PT #### [facility] [address] [place] [address] Dr. Artem Rojas MCH (RBC) [Entitic mass] 31.5 pg Normal 25.9-34.0 [facility] Comment on above: Performed By: #### PTT, PT #### [facility] [address] [place] [address] Dr. Artem Rojas MCHC (RBC) [Mass/Vol] 33.0 g/dL Normal 29.9-35.2 [facility] Comment on above: Performed By: #### PTT, PT #### [facility] [address] [place] [address] Dr. Artem Rojas MCV (RBC) [Entitic vol] 95.4 fL Critically high 80.0-94.0 [facility] Comment on above: Performed By: #### PTT, PT #### [facility] [address] [place] [address] Dr. Artem Rojas MONO # 1.0 103/ul Critically high 0.3-0.8 [facility] Comment on above: Performed By: #### PTT, PT #### [facility] [address] [place] [address] Dr. Artem Rojas Monocytes/100 WBC (Bld) 7.4 % Normal 1.7-12.0 [facility] Comment on above: Performed By: #### PTT, PT #### [facility] [address] [place] [address] Dr. Artem Rojas NEUT # 11.4 103/ul Critically high 1.4-6.5 [facility] Comment on above: Performed By: #### PTT, PT #### [facility] [address] [place] [address] Dr. Artem Rojas Neutrophils/100 WBC (Bld) 85.9 % Critically high 43.0-75.0 [facility] Comment on above: Performed By: #### PTT, PT #### [facility] [address] [place], [place] [address] Dr. Artem Rojas Platelet mean volume (Bld) [Entitic vol] 10.8 fL Normal 9.5-13.5 [facility] Comment on above: Performed By: #### PTT, PT #### [facility] [address] [place], [place] [address] Dr. Artem Rojas PLT 164 103/ul Normal 150-450 [facility] Comment on above: Performed By: #### PTT, PT #### [facility] [address] [place], [place] [address] Dr. Artem Rojas RBC 4.16 106/ul Critically low 4.70-6.10 [facility] Comment on above: Performed By: #### PTT, PT #### [facility] [address] [address] [address] Artem Rojas WBC 13.2 103/ul Critically high 4.0-11.0 [facility] Comment on above: Performed By: #### PTT, PT #### [facility] [address] [address] [address] CSPINE WO CONon [...] WILLIAM ARIAS Date: 2022-03-02 17:51 Normal [facility] CT HEAD WO CONon 03-02-2022 CT HEAD [...] NISSA VIGIL Date: 2022-03-02 17:40 Normal [facility] Covid-19 PCR (CVDTB)on 02-13 SARS-CoV-2 (COVID-19) RNA MONICA+probe Ql (Unsp spec) Not detected Normal NOT DETECTED [facility] Comment on above: Result Comment: When diagnostic [...] for this test is supported by the Performance Engineer of Health and Human Service's declaration that [...] Performed By: #### P TT, PT #### [facility] [address] [place] [address] Dr. Artem Rojas GASTROCCULTon 03-02-2022 GASTROCCULT Positive Abnormal NEGATIVE [facility] Comment on above: Performed By: #### PTT, PT #### [facility] [address] [place] [address] Dr. Artem Rojas PH GASTRIC 2 Normal [facility] Comment on above: Performed By: #### PTT, PT #### [facility] [address] [place] [address] Dr. Artem Rojas PROF 14(COMP METB)on 022 Albumin [Mass/Vol] 3.6 g/dL Normal 3.4-5.0 [facility] Comment on above: Performed By: #### PTT, PT #### [facility] [address] [place] [address] Dr. Artem Rojas Albumin/Globulin [Mass ratio] 1.3 {ratio} Normal [facility] Comment on above: Performed By: #### PTT, PT #### [facility] [address] [place] [address] Dr. Artem Rojas ALP [Catalytic activity/Vol] 65 U/L Normal 46-116 [facility] Comment on above: Performed By: #### PTT, PT #### [facility] [address] [place] [address] Dr. Artem Rojas ALT [Catalytic activity/Vol] 12 U/L Critically low 16-63 [facility] Comment on above: Performed By: #### PTT, PT #### [facility] [address] [place] [address] Dr. Artem Rojas Anion gap [Moles/Vol] 12.8 mmol/L Normal [facility] Comment on above: Performed By: #### PTT, PT #### [facility] [address] [address] [address] Artem Rojas AST [Catalytic activity/Vol] 15 U/L Normal 15-37 [facility] Comment on above: Performed By: #### PTT, PT #### [facility] [address] [place] [address] Dr. Artem Rojas Bilirubin [Mass/Vol] 1.1 mg/dL Critically high 0.2-1.0 [facility] Comment on above: Performed By: #### PTT, PT #### [facility] [address] [place] [address] Dr. Artem Rojas Calcium [Mass/Vol] 9.0 mg/dL Normal 8.5-10.1 [facility] Comment on above: Performed By: #### PTT, PT #### [facility] [address] [place] [address] Dr. Artem Rojas Chloride [Moles/Vol] 104 mmol/L Normal 98-107 [facility] Comment on above: Performed By: #### PTT, PT #### [facility] [address] [place] [address] Dr. Artem Rojas CO2 [Moles/Vol] 25.8 mmol/L Normal 21.0-32.0 [facility] Comment on above: Performed By: #### PTT, PT #### [facility] [address] [place] [address] Dr. Artem Rojas Creatinine [Mass/Vol] 1.06 mg/dL Normal 0.70-1.30 [facility] Comment on above: Performed By: #### PTT, PT #### [facility] [address] [address] [address] Artem Rojas EGFR-AF [place] >60 Normal >=60 [facility] Comment on above: Performed By: #### PTT, PT #### [facility] [address] [address] [address] Artem Rojas EGFR-NON AF [place] >60 Normal >=60 [facility] Comment on above: Performed By: #### PTT, PT #### [facility] [address] [address] [address] Artem Rojas Globulin (S) [Mass/Vol] 2.8 g/dL Normal [facility] Comment on above: Performed By: #### PTT, PT #### [facility] [address] [place] [address] Dr. Artem Rojas Glucose [Mass/Vol] 104 mg/dL Normal 74-106 [facility] Comment on above: Performed By: #### PTT, PT #### [facility] [address] [place] [address] Dr. Artem Rojas Potassium [Moles/Vol] 4.6 mmol/L Normal 3.5-5.1 [facility] Comment on above: Performed By: #### PTT, PT #### [facility] [address] [place] [address] Dr. Artem Rojas Protein [Mass/Vol] 6.4 g/dL Normal 6.4-8.2 [facility] Comment on above: Performed By: #### PTT, PT #### [facility] [address] [place] [address] Dr. Artem Rojas Sodium [Moles/Vol] 138 mmol/L Normal 136-145 [facility] Comment on above: Performed By: #### PTT, PT #### [facility] [address] [place] [address] Dr. Artem Rojas Urea nitrogen [Mass/Vol] 13.0 mg/dL Normal 7.0-18.0 [facility] Comment on above: Performed By: #### PTT, PT #### [facility] [address] [place] [address] Dr. Artem Rojas Urea nitrogen/Creatin ine [Mass ratio] 12.3 mg/mg Normal [facility] Comment on above: Performed By: #### PTT, PT #### [facility] [address] [place] [address] Dr. Artem Rojas PROTIMEon 03-02-2022 INR Coag (PPP) [Relative time] 1.23 {INR} Normal [facility] Comment on above: Performed By: #### PTT, PT #### [facility] [address] [place] [address] Dr. Aretm Rojas INR GUIDELINES SEE BELOW Normal [facility] Comment on above: Result Comment: DESIRED INR: 2.0 - 3.0 C ONDITIONS NOT LISTED BELOW 2.5 - 3.5 FOR PROSTHETIC HEART VALVE REPLACEMENT 2.5 - 3.5 RECURRENT THROMBOSIS Performed By: #### P TT, PT #### [facility] [address] [place] [address] Dr. Artem Rojas PT Coag (PPP) [Time] 13.1 s Critically high 9.0-11.6 [facility] Comment on above: Performed By: #### PTT, PT #### [facility] [address] [place] [address] Dr. Artem Rojas PTTon 03-02-2022 aPTT Coag (Bld) [Time] 28.5 s Normal 22.3-36.2 [facility] Comment on above: Performed By: #### PTT, PT #### [facility] [address] [place] [address] Dr. Artem Rojas XR KNEE RT 1_2 [...] MATTHEW CHADWICK Date: 2022-03-02 20:49 Normal [facility] OVA AND PARASITE EXAMINATION on 01-18-2022 Ova + Parasite Exam Final report Normal [facility] Comment on above: Result Comment: These results were obtai ricardo using wet preparation(s) and trichrome stained smear. This test does not include testing for Cryptosporidium parvum, Cyclospora, or Microsporidia. Performed By: #### P TT, PT #### [facility] [address] [place] [address] Dr. Artem Rojas Result 1 Comment Normal [facility] Comment on above: Result Comment: No ova, cysts, or parasi alise seen. . One negative specimen does not rule out the possibility of a parasitic infection. Performed By: #### P TT, PT #### [facility] [address] [place] [address] Dr. Artem Rojas GI PANEL (PCR)on 01-14-2022 Adenovirus F 40/41 Not detected Normal NOT DETECTED [facility] Comment on above: Performed By: #### PTT, PT #### [facility] [address] [place] [address] Dr. Artem Rojas Astrovirus Not detected Normal NOT DETECTED [facility] Comment on above: Performed By: #### PTT, PT #### [facility] [address] [place] [address] Dr. Artem Rojas C. Diff toxin A/B Not detected Normal NOT DETECTED [facility] Comment on above: Performed By: #### PTT, PT #### [facility] [address] [place] [address] Dr. Artem Rojas Campylobacter Not detected Normal NOT DETECTED [facility] Comment on above: Performed By: #### PTT, PT #### [facility] [address] [place] [address] Dr. Artem Rojas Cryptosporidium Not detected Normal NOT DETECTED [facility] Comment on above: Performed By: #### PTT, PT #### [facility] [address] [place] [address] Dr. Artem Rojas Cyclos. Cayetanensis Not detected Normal NOT DETECTED [facility] Comment on above: Performed By: #### PTT, PT #### [facility] [address] [place] [address] Dr. Artem Rojas E. Coli O157 Not Applicable Normal Not Applicable [facility] Comment on above: Performed By: #### PTT, PT #### [facility] [address] [place] [address] Dr. Artem Rojas E. histolytica Not detected Normal NOT DETECTED [facility] Comment on above: Performed By: #### PTT, PT #### [facility] [address] [place] [address] Dr. Artem Rojas EAEC Not detected Normal NOT DETECTED [facility] Comment on above: Performed By: #### PTT, PT #### [facility] [address] [place] [address] Dr. Artem Rojas EIEC Not detected Normal NOT DETECTED [facility] Comment on above: Performed By: #### PTT, PT #### [facility] [address] [place] [address] Dr. Artem Rojas EPEC Not detected Normal NOT DETECTED [facility] Comment on above: Performed By: #### PTT, PT #### [facility] [address] [place] [address] Dr. Artem Rojas ETEC Not detected Normal NOT DETECTED [facility] Comment on above: Performed By: #### PTT, PT #### [facility] [address] [place] [address] Dr. Artem Rojas G. Lamblia Not detected Normal NOT DETECTED [facility] Comment on above: Performed By: #### PTT, PT #### [facility] [address] [place] [address] Dr. Artem TSE CONTROLS PASSED Normal [facility] Comment on above: Performed By: #### PTT, PT #### [facility] [address] [place] [address] Dr. Artem ROWENL TIA HEADER GI PANEL BACTERIA Normal T [facility] Comment on above: Performed By: #### PTT, PT #### [facility] [address] [address] [address] Artem ARELLANO ECOLI GI PANEL DIARRHEAGEN IC E.COLI / SHIGELLA Normal [facility] Comment on above: Performed By: #### PTT, PT #### [facility] [address] [place] [address] Dr. Artem ARELLANO INFO SEE BELOW Normal [facility] Comment on above: Result Comment: EAEC- Enteroaggregative E. Coli EPEC- Enteropathogenic E. Coli ETEC- Enterotoxigenic E. Coli lt/st STEC- Shigella-like toxin-producing E. Coli stx1/stx2 EIEC- Shigella/Enteroinvasive E. Coli Performed By: #### P TT, PT #### [facility] [address] [place] [address] Dr. Artem ARELLANO PARASITES GI PANEL PARASITES Normal [facility] Comment on above: Performed By: #### PTT, PT #### [facility] [address] [place] [address] Dr. Artem ARELLANO VIRUS GI PANEL VIRUSES Normal [facility] Comment on above: Performed By: #### PTT, PT #### [facility] [address] [place] [address] Dr. Artem Rojas Norovirus GI/GII Not detected Normal NOT DETECTED [facility] Comment on above: Performed By: #### PTT, PT #### [facility] [address] [place] [address] Dr. Artem Rojas P. Shigelloides Not detected Normal NOT DETECTED [facility] Comment on above: Performed By: #### PTT, PT #### [facility] [address] [address] [address] Artem Rojas Rotavirus A Not detected Normal NOT DETECTED [facility] Comment on above: Performed By: #### PTT, PT #### [facility] [address] [place] [address] Dr. Artem Rojas Salmonella Not detected Normal NOT DETECTED [facility] Comment on above: Performed By: #### PTT, PT #### [facility] [address] [place] [address] Dr. Artem Rojas Sapovirus Not detected Normal NOT DETECTED [facility] Comment on above: Performed By: #### PTT, PT #### [facility] [address] [place] [address] Dr. Artem Rojas STEC Not detected Normal NOT DETECTED [facility] Comment on above: Performed By: #### PTT, PT #### [facility] [address] [address] [address] Artem Rojas Vibrio Not detected Normal NOT DETECTED [facility] Comment on above: Performed By: #### PTT, PT #### [facility] [address] [place] [address] Dr. Artem Rojas Vibrio Cholera Not detected Normal NOT DETECTED [facility] Comment on above: Performed By: #### PTT, PT #### [facility] [address] [place] [address] Dr. Artem Rojas Y. Enterocolitica Not detected Normal NOT DETECTED [facility] Comment on above: Performed By: #### PTT, PT #### [facility] [address] [place] [address] Dr. Artem Rojas Consultation Noteon 06-03-20 Consultation Note [id number]:127 Normal [facility] RAD - MISCon 06-03-2021 RAD - MISC [id number]:127 Normal [facility] Glucose Poct Glucometerson 0 01-10-2021 Glucose [Mass/Vol] 108 mg/dL Normal [facility] Comment on above: Result Comment: Random Glucose Reference Range is dependent on time and content of last meal. Glucose of more than 200 mg/dL in a nonstressed, ambulatory subject supports the diagnosis of Diabetes Mellitus. PERFORMED BY: [facility] [place] [address] PATHOLOGIST CAUL [employer]ESSER SARY APARICIO M.D. Performed By: #### G SAMMIE #### Point of Care testing , [place] 01-10-2021 L Specimen: [id number] Received: 01/10/21 Status: WILFREDO Mckeon Num: [id number] Spec Type: Surgical Subm Dr: Shane Snell MD Tissues: A Colon - Polyp (CECUM) B Colon - Polyp (SIGMOID) Procedures: HE Stain/4, Gross/Micro L4/2 Patient Age/Sex Location Account Attending Physician Desean Landry JR 80/[facility] [id number] Shane Snell MD SPEC NUM: [id number] RECD: 01/10/21 STATUS: WILFREDO MCKEON NUM: [id number] MICAH: 01/10/21 DR: Shane Snell MD ENTERED: 01/10/21 [facility] DR: SPEC TYPE: Surgical DEPT: S [facility] BY: [id number] ORDERED: HE Stain/4, Gross/Micro L4/2 ORDERED: HE [...] findings support the above pathologic diagnosis. Specimen: [id number] Received: 01/10/21 Status: WILFREDO Mckeon Num: [id number] Spec Type: Surgical Subm Dr: Shane Snell MD Tissues: A Colon - Polyp (CECUM) B Colon - Polyp (SIGMOID) Procedures: HE Stain/4, Gross/Micro L4/2 Patient: Desean Landry JR [id number] (Continued) Specimen: [id number] Received: 01/10/21 (Continued) Signed (signature on file) Randi Ji MD 01/11/21 1809 Specimen: [id number] Received: 01/10/21 Status: WILFREDO Mckeon Num: [id number] Spec Type: Surgical Subm Dr: Shane Snell MD Tissues: A Colon - Polyp (CECUM) B Colon - Polyp (SIGMOID) Procedures: HE Stain/4, Gross/Micro L4/2 Patient: Desean Landry JR [id number] (Continued) Specimen: [id number] Received: 01/10/21 (Continued) CPT Codes 74910?2 Specimen: Received: 01/10/21 Status: WILFREDO Mckeon Num: [id number] Spec Type: Surgical Subm Dr: Shane Snell MD Tissues: A Colon - Polyp (CECUM) B Colon - Polyp (SIGMOID) Procedures: JUDIE Stain/4, Gross/Micro L4/2 Patient: Desean Landry JR [id number] (Continued) Signed (signature on file) Randi Ji MD 01/11/21 1809 [facility] CNCOon 04-13-2018 CNCO Letter TextOctober 2017Sam[address]addison [address]ry[address] [place], [place] [address]FVDN: Rocky Landry NO.: [id number] OF SERVICE: 04/06/2018Dept. of Pulmonary and Critical Care MedicineDear Mr. Landry,Attached please find a copy of your CAT scan chest report from March.Please contact me if I can contribute further in your health care management.Best regards.Yours sincerely,Cesar Rowley M.D., F.C.C.P.HC:Enclosure Normal [facility] CT CHEST WO IVCONon 04-06-[address] CHEST WO IVCON * * *Final Report* * *DATE OF EXAM: Apr 06 2018 12:50PM [facility] 0541 - CT CHEST WO IVCON / [...] any questions regarding this interpretation, please call [phone].If you are unable to reach us at the number above,please feel free to contact [facility] eRadiology at [phone] ACN Normal [facility] PROGRESSon 04-06-2018 Protein mass conc HNO ID: [id number]: Venita Lr: (none)Author Type: (none)Type: Progress NotesFiled: 04/06/2018 12:57 PMNote Text: Radiology Service Progress NotePATIENT NAME: Desean LandryMRN: [id number] OF SERVICE: April 06, 2018TIME: 12:28 PMPATIENT IDENTITY VERIFICATION COMPLETED USING TWO (2) METHODS: Patientconfirmed name verbally and ID band matches..PATIENT GENDER DATA: MalePATIENT RELEVANT IMPLANT DATA REVIEWED: Not ApplicableRADIOLOGY DEPARTMENT: CT; Exam(s) Completed: ChestPERIPHERAL IV DATA: Not applicableSIGNED BY: Venita Lee 2017 12:28 PM Normal [facility] CNOVon 09-10-2017 CNOV Office Visit (PULMMN) SA SHAILA LANDRY ([id number]) 1940 MDate Time Provider Department09/10/17 9:55 AM CESAR ROWLEY During your visit today, we recorded the following information about you: Temperature Pulse Respiration Blood pressure 97.7 degrees 75/minute 18/minute 125/68 Weight Height 90.3 kg 1.753 Ritika Rowley MD 09/10/2017 12:26 PM SignedPULMONARY CLINICPATIENT NAME: Desean LandryMRN: [id number] CARE PHYSICIAN: Diogenes Casiano [facility] [place]munication will be sent via [place] mail or [...] No ronchi. No ralesCARDIAC: normal S1 and [id number]: Abdomen soft.EXTREMETIES: No deformities. No LE edema. [...] [J98.11] Pleural calcification [J94.8]Order(s):CT CHEST WO IVCON [[id number]] Order #: [id number] FUTUREProblem List As Of Date: 09/10/2017(None)Disposition: Return in about 6 months (around 03/13/2018).Follow-up and Disposition History RecordedEncounter Number: [id number] Status:Closed by CESAR ROWLEY MD on 09/10/17 [facility] CT CHEST WO IVCONon 09-11-19 CT CHEST WO IVCON * * *Final Report* * *DATE OF EXAM: Sep 10 2017 9:05AM [facility] 0541 - CT CHEST WO IVCON / [...] 6 mm. Three-month imaging follow-up suggested for reevaluation.Medicare Sales Executive: AMILCAR Transcribe Date/Time: Sep 10 2017 9:58ADictated by : CHRISTY MULTANI MDThis examination was interpreted and the report reviewed and electronically signed by: CHRISTY MULTANI MD on Sep 10 2017 2:48PM [id number] Normal [facility] PROGRESSon 09-10-2017 Protein mass conc HNO ID: [id number]: Cesar Claudiae: (none)Author Type: PhysicianType: Progress NotesFiled: 09/10/2017 12:26 PMNote Text:PULMONARY CLINICPATIENT NAME: Desean LandryMRN: [id number] CARE PHYSICIAN: Diogenes Casiano [facility]munication will be sent via [place] mail or [...] wheezing. No ronchi. NoralesCARDIAC: normal S1 and I8JFAFLOH: Abdomen soft.EXTREMETIES: No deformities. No LE edema. [...] 10, 2017TIME: 9:30 AM Normal [facility] Protein mass conc HNO ID: [id number]: Srinath Purcell CTS (Ct)ervice: RadiologyAuthor Type: Clinical TechnicianType: Progress NotesFiled: 09/10/2017 9:03 AMNote Text: Radiology Service Progress NotePATIENT NAME: Desean LandryMRN: [id number] OF SERVICE: September 10, 2017TIME: 9:03 AMPATIENT IDENTITY VERIFICATION COMPLETED USING TWO (2) METHODS: Patientconfirmed name verbally and ID band matches..PATIENT GENDER DATA: MalePATIENT RELEVANT IMPLANT DATA REVIEWED: YesRADIOLOGY DEPARTMENT: CT; Exam(s) Completed: ChestPERIPHERAL IV DATA: Not applicableSIGNED BY: Srinath MANINDER HeathRomanabrett 2017 9:03 AM Normal [facility] HISTORY PHYSICALon 8 HISTORY PHYSICAL HNO ID: [id number] thor: Cesar Jose: (none)Author Type: PhysicianType: HANDPFiled: 07/23/2017 5:35 PMNote Text:PULMONARY CONSULTPATIENT NAME: Desean LandryMRN: [id number] FOR CONSULT: Pleural effusionREQUESTING PHYSICIAN: Diogenes Casiano [facility] CARE PHYSICIAN: Diogenes Casiano [facility] [place]ommunication will be sent via [place] mail or shared electronic medicalrecordsHISTORY OF PRESENT ILLNESS: Mr. 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 Unable to make his own medical decision.He lives by himself but currently admitted at a SNF. He has a legalguardian Blanca Sofia phone # [phone].In June he was found on the floor [...] 23, 2017TIME: 12:12 PM Normal [facility] PROGRESSon 07-23-2017 Protein mass conc HNO ID: [id number]: Colleen Ceballos RtService: (none)Author Type: (none)Type: Progress NotesFiled: 07/23/2017 11:16 AMNote Text: Radiology Service Progress NotePATIENT NAME: Desean LandryMRN: [id number] OF SERVICE: July 23, 2017TIME: 11:16 AMPATIENT IDENTITY VERIFICATION COMPLETED USING TWO (2) METHODS: Patientconfirmed name verbally and Date of .PATIENT GENDER DATA: MalePATIENT RELEVANT IMPLANT DATA REVIEWED: Not ApplicableRADIOLOGY DEPARTMENT: General X-ray: Exam(s) Completed: Chest X-RayPERIPHERAL IV DATA: Not applicableSIGNED BY: Colleen Ceballos RtFebruary 2017 11:16 AM Normal [facility] XR CHEST 2V FRONTAL/LATon XR CHEST 2V [...] ARMENTA MD on Jul 23 2017 3:24PM [id number] Normal [facility] HOSPon 07-21-2017 HOSP Patient:Desean Landry MRN: Height:No [...] Radiology Service Progress NotePATIENT NAME: Desean LandryMRN: [id number] OF SERVICE: July 23, 2017TIME: 11:16 AMPATIENT IDENTITY VERIFICATION COMPLETED USING TWO (2) METHODS: Patientconfirmed name verbally and Date of .PATIENT GENDER DATA: MalePATIENT RELEVANT IMPLANT DATA REVIEWED: Not ApplicableRADIOLOGY DEPARTMENT: General X-ray: Exam(s) Completed: Chest X-RayPERIPHERAL IV DATA: Not applicableSIGNED BY: Colleen Ceballos RtFebruary 2017 11:16 AMProgress Notes (HOSP [facility] H23):Latoya Mohamud, RN, RN 07/22/2017 10:35 AM Signed07/22/2017: Navigator contacted [facility] ([phone]) toobtain recent labs. Ict Sales Assistant will fax labs and medication list. Craig also have a copies of this sent with him to his appointments. Normal [facility] Cristhian 07-16-2017 FANNYN Telephone (PULMMN) SA SHAILA LANDRY ([id number]) 1940 MDate Time Provider Department07/16/17 CESAR ROWLEY During your visit today, we recorded the following information about you:Kristie Gonzalez 07/16/2017 2:35 PM Signedcxr report to FANNY.Italo Mora CNP 07/17/2017 12:47 PM SignedCXR 07/13/2017StableAllergies As of Date: 07/16/2017(No Known Allergies)Date Reviewed: 07/14/2017Reviewed by: Kim Walker (Fel) - Fully AssessedReason for Visit: Received Outside Medical Records [0037]Problem List As Of Date: 07/16/2017(None) Status:Closed by KRISTIE ANDRADE on 07/16/17 Normal [facility] BASIC METABOLIC PANELon Calcium 8.5 mg/dL Low 8.6-10.3 [facility] Comment on above: Order Comment: No: Do not add to previou s draw Performed By: #### 4 1000, 03761, 09685, 42142, 17947 ####[facility] [place] [address], [facility] Chloride 104 mmol/L Normal 98-107 [facility] Comment on above: Order Comment: No: Do not add to previou s draw Performed By: #### 4 1000, 52310, 65072, 15051, 44488 ####[facility] [place] [address], [facility] CO2 30 mmol/L Normal 21-31 [facility] Comment on above: Order Comment: No: Do not add to previou s draw Performed By: #### 4 1000, 33990, 36862, 38046, 38927 ####[facility] [place] [address], [facility] Creatinine 0.94 mg/dL Normal 0.70-1.30 [facility] Comment on above: Order Comment: No: Do not add to previou s draw Performed By: #### 4 1000, 58939, 91405, 65107, 20942 ####[facility] [place] [address], [facility] eGFR (black) mL/min/{1.73_m2} Normal >60 [facility] Comment on above: Order Comment: No: Do not add to previou s draw Result Comment: Calc ulation may not be valid for patients over 70 years Performed By: #### 4 1000, 94180, 51641, 28049, 16204 ####[facility] eGFR (non-black) mL/min/{1.73_m2} Normal >60 [facility] Comment on above: Order Comment: No: Do not add to previou s draw Result Comment: Calc ulation may not be valid for patients over 70 years Performed By: #### 4 1000, 88204, 64414, 66026, 17279 ####[facility] [facility] Glucose mass conc 98 mg/dL Normal 70-100 [facility] Comment on above: Order Comment: No: Do not add to previou s draw Performed By: #### 4 1000, 60191, 57270, 83764, 54666 ####[place] [address] [facility].[address] Potassium molar conc 4.3 mmol/L Normal 3.5-5.1 [facility] Comment on above: Order Comment: No: Do not add to previou s draw Performed By: #### 4 1000, 23240, 24568, 33402, 19411 ####[place] [address] [facility].[address] Sodium 141 mmol/L Normal 136-145 [facility] Comment on above: Order Comment: No: Do not add to previou s draw Performed By: #### 4 1000, 97658, 59903, 43674, 49099 ####[place] [address] [facility].[address] Urea nitrogen 17 mg/dL Normal 7-25 [facility] Comment on above: Order Comment: No: Do not add to previou s draw Performed By: #### 4 1000, 70399, 50873, 66517, 76837 ####[facility] [facility] [address], [facility] CBC W/DIFFon 06-20-2017 Basophils Auto #/vol (Bld) 0.5 % Normal 0.0-2.0 [facility] Comment on above: Performed By: #### 03952, 97822, 44356, 10474, 15527 ####[facility] [place] [address], [facility] Eosinophils/100 leukocytes 3.6 % Normal 0.0-5.0 [facility] Comment on above: Performed By: #### 57807, 63601, 87666, 06785, 24026 ####[facility] Erythrocyte distribution width Auto Ratio (RBC) 14.2 % Normal 11.5-16.9 [facility] Comment on above: Performed By: #### 80820, 86489, 14643, 19640, 30843 ####[facility] [facility] Erythrocytes (RBC) 4.19 mill/mm3 Low 4.30-5.90 [facility] Comment on above: Performed By: #### 40223, 38015, 77604, 58636, 57630 ####[facility] [facility] Hematocrit (HCT) 39.9 % Normal 39.0-55.0 [facility] Comment on above: Performed By: #### 39500, 07210, 30860, 27706, 52476 ####[facility] Hemoglobin mass conc (Bld) 13.6 g/dL Low 13.9-16.3 [facility] Comment on above: Performed By: #### 78975, 25678, 53110, 26396, 67394 ####[facility] [place] [address], [facility] Lymphocytes/100 leukocytes 15.7 % Low 20.0-40.0 [facility] Comment on above: Performed By: #### 11329, 15338, 68149, 86295, 49956 ####[facility] [place] [address], [facility] MCH 32.4 pg High 24.0-32.0 [facility] Comment on above: Performed By: #### 75320, 50722, 78005, 80309, 47013 ####[facility] MCHC mass conc (RBC) 34.0 g/dL Normal 32.0-36.0 [facility] Comment on above: Performed By: #### 10840, 85547, 52115, 13155, 32838 ####[facility] [facility] MCV 95.3 fL Normal 80.0-100.0 [facility] Comment on above: Performed By: #### 52445, 58084, 61590, 66423, 30333 ####[facility] [place] [address], [facility] METHOD Normal RBC Morphology Normal [facility] Comment on above: Performed By: #### 39243, 11908, 84357, 75929, 90296 ####[facility] MONOS 9.9 % High 2-8 [facility] Comment on above: Performed By: #### 43063, 76789, 14888, 84453, 73144 ####[facility] [place] [address], [facility] Neutrophils/100 leukocytes 70.3 % High 50-70 [facility] Comment on above: Performed By: #### 20334, 02383, 39778, 36705, 19796 ####[facility] [place] [address], [facility] PLAT CNT 193 Thou/mm3 Normal 100-400 [facility] Comment on above: Performed By: #### 94105, 49000, 00522, 18232, 97960 ####[facility] WBC (Leukocytes) 8.7 Thou/mm3 Normal 4.0-10.0 [facility] Comment on above: Performed By: #### 46799, 25068, 48250, 17692, 20854 ####[facility] Discharge Summaryon 06-20-19 18 Discharge Summary MR[id number] Desean Landry Admitted: 06/13/2017 Discharged: 06/20/2017 Date of : 1940 Physician: Diogenes Ren M.D. DISCHARGE SUMMARYPRIMARY DIAGNOSIS: Rhabdomyolysis secondary to prolonged immobilization.SECONDARY DIAGNOSES:1. History of atrial fibrillation.2. Right sided Posterior Calcified pleural plaques.3. Right-sided loculated pleural effusion.CONSULTS: CT Surgery, Pulmonary.PROCEDURES: None.SUMMARY OF HOSPITAL COURSE: Mr. Landry is a 76-year-old male, who [facility] with complaints of being found down for approximately 15 to 18hours. Per the patient, he was in usual state of health and last nightwhen woke to take his medications, his legs gave out and fell to the floor.Denies loss of consciousness but stated that he was so weak that he wasunable to get up. Eventually, EMS was contacted and brought the patient [facility]. Initial workup was notable for severe rhabdomyolysis,and the patient was transferred to [facility]. He has a past medical historysignificant for [...] not have a biopsy performed whilehospitalized at [facility].His CK and myoglobin continue to trend downward, and he was deemed stableat the time of discharge.He will need to follow up with Dr. Rowley at [facility] for continuedmanagement of his pleural effusions [...] continueto follow up with Dr. Rowley at [facility] for continued management ofthe pleural effusions [...] 06/19/2017/05:47 P/Jarad Ayon, MDDate Trans: 06/20/2017 04:29 P/mmoDN_JN:[id number]: Diogenes Casiano M.D. [address] [facility] [address] Normal [facility] MAGNESIUM BLOODon 06-20-2017 Magnesium 2.0 mg/dL Normal 1.9-2.7 [facility] Comment on above: Order Comment: No: Do not add to previou s draw Performed By: #### 4 1000, 29485, 30395, 12893, 79956 ####[facility] [place] [address], [facility] PHOSPHORUS BLOODon 8 Phosphate 3.5 mg/dL Normal 2.5-5.0 [facility] Comment on above: Order Comment: No: Do not add to previou s draw Performed By: #### 4 1000, 11726, 25801, 23074, 06629 ####[facility] [place] [address], [facility] BASIC METABOLIC PANELon Calcium 8.5 mg/dL Low 8.6-10.3 [facility] Comment on above: Order Comment: No: Do not add to previou s draw Performed By: #### 4 1000, 04630, 04254, 52890, 88160 ####[facility] [place] [address], [place] Chloride 105 mmol/L Normal 98-107 [facility] Comment on above: Order Comment: No: Do not add to previou s draw Performed By: #### 4 1000, 51468, 38619, 09675, 38117 ####[facility] [place] [address], [facility] CO2 26 mmol/L Normal 21-31 [facility] Comment on above: Order Comment: No: Do not add to previou s draw Performed By: #### 4 1000, 95668, 37414, 38658, 77384 ####[facility] Creatinine 0.95 mg/dL Normal 0.70-1.30 [facility] Comment on above: Order Comment: No: Do not add to previou s draw Performed By: #### 4 1000, 44594, 95082, 31416, 50228 ####[facility] eGFR (black) mL/min/{1.73_m2} Normal >60 [facility] Comment on above: Order Comment: No: Do not add to previou s draw Result Comment: Calc ulation may not be valid for patients over 70 years Performed By: #### 4 1000, 20180, 69521, 85489, 63590 ####[facility] eGFR (non-black) mL/min/{1.73_m2} Normal >60 [facility] Comment on above: Order Comment: No: Do not add to previou s draw Result Comment: Calc ulation may not be valid for patients over 70 years Performed By: #### 4 1000, 41674, 52137, 16030, 03498 ####[facility] Glucose mass conc 102 mg/dL High 70-100 [facility] Comment on above: Order Comment: No: Do not add to previou s draw Performed By: #### 4 1000, 68980, 69092, 96282, 90684 ####[facility] [place] [address], [facility] Potassium molar conc 3.7 mmol/L Normal 3.5-5.1 [facility] Comment on above: Order Comment: No: Do not add to previou s draw Performed By: #### 4 1000, 02699, 52482, 99207, 62553 ####[facility] Sodium 139 mmol/L Normal 136-145 [facility] Comment on above: Order Comment: No: Do not add to previou s draw Performed By: #### 4 1000, 78402, 73984, 49089, 51894 ####[facility] Urea nitrogen 17 mg/dL Normal 7-25 [facility] Comment on above: Order Comment: No: Do not add to previou s draw Performed By: #### 4 1000, 85996, 20808, 04662, 05099 ####[facility] CBC W/DIFFon 06-19-2017 Basophils Auto #/vol (Bld) 0.5 % Normal 0.0-2.0 [facility] Comment on above: Order Comment: No: Do not add to previou s draw Performed By: #### 4 1000, 95195, 32837, 19218, 67456 ####[facility] Eosinophils/100 leukocytes 1.0 % Normal 0.0-5.0 [facility] Comment on above: Order Comment: No: Do not add to previou s draw Performed By: #### 4 1000, 82450, 58087, 97131, 77382 ####[facility] Erythrocyte distribution width Auto Ratio (RBC) 13.7 % Normal 11.5-16.9 [facility] Comment on above: Order Comment: No: Do not add to previou s draw Performed By: #### 4 1000, 16731, 55535, 89267, 92168 ####[facility] Erythrocytes (RBC) 4.33 mill/mm3 Normal 4.30-5.90 [facility] Comment on above: Order Comment: No: Do not add to previou s draw Performed By: #### 4 1000, 89784, 10457, 82442, 20484 ####[facility] [facility] Hematocrit (HCT) 41.5 % Normal 39.0-55.0 [facility] Comment on above: Order Comment: No: Do not add to previou s draw Performed By: #### 4 1000, 90524, 79813, 63927, 46139 ####[facility] [facility].[address] Hemoglobin mass conc (Bld) 14.1 g/dL Normal 13.9-16.3 [facility] Comment on above: Order Comment: No: Do not add to previou s draw Performed By: #### 4 1000, 48345, 62058, 79182, 76071 ####[facility] [facility].[address] Lymphocytes/100 leukocytes 11.5 % Low 20.0-40.0 [facility] Comment on above: Order Comment: No: Do not add to previou s draw Performed By: #### 4 1000, 99468, 72259, 24296, 21698 ####[facility] [facility].[address] MCH 32.7 pg High 24.0-32.0 [facility] Comment on above: Order Comment: No: Do not add to previou s draw Performed By: #### 4 1000, 48166, 74073, 20589, 10465 ####[facility] [facility] MCHC mass conc (RBC) 34.1 g/dL Normal 32.0-36.0 [facility] Comment on above: Order Comment: No: Do not add to previou s draw Performed By: #### 4 1000, 53966, 13879, 41298, 12099 ####[facility] [place] [address], [facility] MCV 95.9 fL Normal 80.0-100.0 [facility] Comment on above: Order Comment: No: Do not add to previou s draw Performed By: #### 4 1000, 69617, 12461, 65633, 67357 ####[facility] [place] [address], [facility] METHOD Normal RBC Morphology Normal [facility] Comment on above: Order Comment: No: Do not add to previou s draw Performed By: #### 4 1000, 35772, 56913, 33789, 55215 ####[facility] [place] [address], [facility] MONOS 11.9 % High 2-8 [facility] Comment on above: Order Comment: No: Do not add to previou s draw Performed By: #### 4 1000, 78081, 58585, 72239, 34594 ####[facility] [place] [address], [facility] Neutrophils/100 leukocytes 75.1 % High 50-70 [facility] Comment on above: Order Comment: No: Do not add to previou s draw Performed By: #### 4 1000, 13171, 95147, 32691, 15583 ####[facility] [place] [address], [place] PLAT CNT 192 Thou/mm3 Normal 100-400 [facility] Comment on above: Order Comment: No: Do not add to previou s draw Performed By: #### 4 1000, 82695, 02497, 45342, 14153 ####[facility] [place] [address], [place] WBC (Leukocytes) 10.7 Thou/mm3 High 4.0-10.0 [facility] Comment on above: Order Comment: No: Do not add to previou s draw Performed By: #### 4 1000, 28163, 72100, 34516, 02713 ####[facility] [place] [address], [facility] CPKon 06-19-2017 Creatine kinase (CK) 252 U/L High 30-223 [facility] Comment on above: Performed By: #### 69107, 57322, 24159, 86746, 37788 ####[facility] [place] [address], [facility] MAGNESIUM BLOODon 06-19-2017 Magnesium 2.0 mg/dL Normal 1.9-2.7 [facility] Comment on above: Order Comment: No: Do not add to previou s draw Performed By: #### 4 1000, 20207, 56821, 71732, 21408 ####[facility] [place] [address], [facility] MYOGLOBINon 06-19-2017 Myoglobin 213 ng/mL Critically high 0-90 [facility] Comment on above: Result Comment: A DOUBLING OF VALUES FRO M SERIAL BLOOD COLLECTIONS(1 - 2 HOURS APART) IS MORE INDICATIVE OF A M.I.THAN THE ABSOLUTE VALUE. Performed By: #### 4 1000, 08145, 68867, 46452, 98499 ####[facility] [place] [address], [facility] PHOSPHORUS BLOODon 8 Phosphate 2.7 mg/dL Normal 2.5-5.0 [facility] Comment on above: Order Comment: No: Do not add to previou s draw Performed By: #### 4 1000, 54818, 67632, 34991, 90127 ####[facility] [place] [address], [facility] ALBUMIN BLOODon 06-18-2017 Albumin 2.6 g/dL Low 3.5-5.7 [facility] Comment on above: Performed By: #### 46783, 87429, 56615, 99212, 73464 ####[facility] BASIC METABOLIC PANELon 01-0 Calcium 8.4 mg/dL Low 8.6-10.3 [facility] Comment on above: Order Comment: No: Do not add to previou s draw Performed By: #### 5 0608 ####[facility] [place] [address], [facility] Chloride 106 mmol/L Normal 98-107 [facility] Comment on above: Order Comment: No: Do not add to previou s draw Performed By: #### 5 0608 ####[facility] CO2 25 mmol/L Normal 21-31 [facility] Comment on above: Order Comment: No: Do not add to previou s draw Performed By: #### 5 0608 ####[facility] Creatinine 0.93 mg/dL Normal 0.70-1.30 [facility] Comment on above: Order Comment: No: Do not add to previou s draw Performed By: #### 5 0608 ####[facility] eGFR (black) mL/min/{1.73_m2} Normal >60 [facility] Comment on above: Order Comment: No: Do not add to previou s draw Result Comment: Calc ulation may not be valid for patients over 70 years Performed By: #### 5 0608 ####[facility] eGFR (non-black) mL/min/{1.73_m2} Normal >60 [facility] Comment on above: Order Comment: No: Do not add to previou s draw Result Comment: Calc ulation may not be valid for patients over 70 years Performed By: #### 5 0608 ####[facility] [place] [address], [facility] Glucose mass conc 106 mg/dL High 70-100 [facility] Comment on above: Order Comment: No: Do not add to previou s draw Performed By: #### 5 0608 ####[facility] [facility] Potassium molar conc 3.4 mmol/L Low 3.5-5.1 [facility] Comment on above: Order Comment: No: Do not add to previou s draw Performed By: #### 5 0608 ####[facility]3000 [facility].[address] Sodium 137 mmol/L Normal 136-145 [facility] Comment on above: Order Comment: No: Do not add to previou s draw Performed By: #### 5 0608 ####[facility] [facility].[address] Urea nitrogen 21 mg/dL Normal 7-25 [facility] Comment on above: Order Comment: No: Do not add to previou s draw Performed By: #### 5 0608 ####[facility] [facility].[address] CBC W/DIFFon 06-18-2017 Basophils Auto #/vol (Bld) 0.9 % Normal 0.0-2.0 [facility] Comment on above: Order Comment: No: Do not add to previou s draw Performed By: #### 5 0608 ####[facility] [place] [address], [facility] Eosinophils/100 leukocytes 2.3 % Normal 0.0-5.0 [facility] Comment on above: Order Comment: No: Do not add to previou s draw Performed By: #### 5 0608 ####[facility] Erythrocyte distribution width Auto Ratio (RBC) 13.6 % Normal 11.5-16.9 [facility] Comment on above: Order Comment: No: Do not add to previou s draw Performed By: #### 5 0608 ####[facility] Erythrocytes (RBC) 4.37 mill/mm3 Normal 4.30-5.90 [facility] Comment on above: Order Comment: No: Do not add to previou s draw Performed By: #### 5 0608 ####[facility] Hematocrit (HCT) 42.0 % Normal 39.0-55.0 [facility] Comment on above: Order Comment: No: Do not add to previou s draw Performed By: #### 5 0608 ####[facility] Hemoglobin mass conc (Bld) 14.2 g/dL Normal 13.9-16.3 [facility] Comment on above: Order Comment: No: Do not add to previou s draw Performed By: #### 5 0608 ####[facility] [place] [address], [facility] Lymphocytes/100 leukocytes 15.2 % Low 20.0-40.0 [facility] Comment on above: Order Comment: No: Do not add to previou s draw Performed By: #### 5 0608 ####[facility] [place] [address], [facility] MCH 32.5 pg High 24.0-32.0 [facility] Comment on above: Order Comment: No: Do not add to previou s draw Performed By: #### 5 0608 ####[facility] MCHC mass conc (RBC) 33.8 g/dL Normal 32.0-36.0 [facility] Comment on above: Order Comment: No: Do not add to previou s draw Performed By: #### 5 0608 ####[facility] [place] [address], [facility] MCV 96.1 fL Normal 80.0-100.0 [facility] Comment on above: Order Comment: No: Do not add to previou s draw Performed By: #### 5 0608 ####[facility] [place] [address], [facility] METHOD Normal RBC Morphology Normal [facility] Comment on above: Order Comment: No: Do not add to previou s draw Performed By: #### 5 0608 ####[facility] [place] [address], [facility] MONOS 11.8 % High 2-8 [facility] Comment on above: Order Comment: No: Do not add to previou s draw Performed By: #### 5 0608 ####[facility] [place] [address], [facility] Neutrophils/100 leukocytes 69.8 % Normal 50-70 [facility] Comment on above: Order Comment: No: Do not add to previou s draw Performed By: #### 5 0608 ####[facility] [place] [address], [facility] PLAT CNT 168 Thou/mm3 Normal 100-400 [facility] Comment on above: Order Comment: No: Do not add to previou s draw Performed By: #### 5 0608 ####[facility] [place] [address], [facility] WBC (Leukocytes) 10.8 Thou/mm3 High 4.0-10.0 [facility] Comment on above: Order Comment: No: Do not add to previou s draw Performed By: #### 5 0608 ####[facility] CPKon 06-18-2017 Creatine kinase (CK) 586 U/L High 30-223 [facility] Comment on above: Performed By: #### 47533, 75980, 98908, 73477, 93671 ####[facility] MAGNESIUM BLOODon 06-18-2017 Magnesium 1.9 mg/dL Normal 1.9-2.7 [facility] Comment on above: Order Comment: No: Do not add to previou s draw Performed By: #### 5 0608 ####[facility] MYOGLOBINon 06-18-2017 Myoglobin 353 ng/mL Critically high 0-90 [facility] Comment on above: Result Comment: A DOUBLING OF VALUES FRO M SERIAL BLOOD COLLECTIONS(1 - 2 HOURS APART) IS MORE INDICATIVE OF A M.I.THAN THE ABSOLUTE VALUE. Performed By: #### 4 1000, 07864, 68932, 90890, 60956 ####[facility] [place] [address], [facility] PHOSPHORUS BLOODon 8 Phosphate 3.7 mg/dL Normal 2.5-5.0 [facility] Comment on above: Order Comment: No: Do not add to previou s draw Performed By: #### 5 0608 ####[facility] [place] [address], [facility] BASIC METABOLIC PANELon Calcium 8.4 mg/dL Low 8.6-10.3 [facility] Comment on above: Order Comment: No: Do not add to previou s draw Performed By: #### 5 0608 ####[facility] [place] [address], [facility] Chloride 110 mmol/L High 98-107 [facility] Comment on above: Order Comment: No: Do not add to previou s draw Performed By: #### 5 0608 ####[facility] [place] [address], [facility] CO2 25 mmol/L Normal 21-31 [facility] Comment on above: Order Comment: No: Do not add to previou s draw Performed By: #### 5 0608 ####[facility] [place] [address], [facility] Creatinine 0.95 mg/dL Normal 0.70-1.30 [facility] Comment on above: Order Comment: No: Do not add to previou s draw Performed By: #### 5 0608 ####[facility] eGFR (black) mL/min/{1.73_m2} Normal >60 [facility] Comment on above: Order Comment: No: Do not add to previou s draw Result Comment: Calc ulation may not be valid for patients over 70 years Performed By: #### 5 0608 ####[facility] [place] [address], [facility] eGFR (non-black) mL/min/{1.73_m2} Normal >60 [facility] Comment on above: Order Comment: No: Do not add to previou s draw Result Comment: Calc ulation may not be valid for patients over 70 years Performed By: #### 5 0608 ####[facility] [place] [address], [facility] Glucose mass conc 107 mg/dL High 70-100 [facility] Comment on above: Order Comment: No: Do not add to previou s draw Performed By: #### 5 0608 ####[facility] Potassium molar conc 3.5 mmol/L Normal 3.5-5.1 [facility] Comment on above: Order Comment: No: Do not add to previou s draw Performed By: #### 5 0608 ####[facility] Sodium 141 mmol/L Normal 136-145 [facility] Comment on above: Order Comment: No: Do not add to previou s draw Performed By: #### 5 0608 ####[facility] Urea nitrogen 23 mg/dL Normal 7-25 [facility] Comment on above: Order Comment: No: Do not add to previou s draw Performed By: #### 5 0608 ####[facility] CBC COMPLETE BLOOD COUNTon 0 - Erythrocyte distribution width Auto Ratio (RBC) 13.7 % Normal 11.5-16.9 [facility] Comment on above: Order Comment: No: Do not add to previou s draw Performed By: #### 5 0608 ####[facility] Erythrocytes (RBC) 4.45 mill/mm3 Normal 4.30-5.90 [facility] Comment on above: Order Comment: No: Do not add to previou s draw Performed By: #### 5 0608 ####[facility] Hematocrit (HCT) 42.9 % Normal 39.0-55.0 [facility] Comment on above: Order Comment: No: Do not add to previou s draw Performed By: #### 5 0608 ####[facility] Hemoglobin mass conc (Bld) 14.3 g/dL Normal 13.9-16.3 [facility] Comment on above: Order Comment: No: Do not add to previou s draw Performed By: #### 5 0608 ####[facility] MCH 32.1 pg High 24.0-32.0 [facility] Comment on above: Order Comment: No: Do not add to previou s draw Performed By: #### 5 0608 ####[facility] [facility].[address] MCHC mass conc (RBC) 33.3 g/dL Normal 32.0-36.0 [facility] Comment on above: Order Comment: No: Do not add to previou s draw Performed By: #### 5 0608 ####[facility] [facility].[address] MCV 96.3 fL Normal 80.0-100.0 [facility] Comment on above: Order Comment: No: Do not add to previou s draw Performed By: #### 5 0608 ####[facility] [facility].[address] PLAT CNT 138 Thou/mm3 Normal 100-400 [facility] Comment on above: Order Comment: No: Do not add to previou s draw Performed By: #### 5 0608 ####[facility] [facility].[address] WBC (Leukocytes) 10.7 Thou/mm3 High 4.0-10.0 [facility] Comment on above: Order Comment: No: Do not add to previou s draw Performed By: #### 5 0608 ####[facility] [place] [address] MYOGLOBINon 06-17-2017 Myoglobin 700 ng/mL Critically high 0-90 [facility] Comment on above: Result Comment: A DOUBLING OF VALUES FRO M SERIAL BLOOD COLLECTIONS(1 - 2 HOURS APART) IS MORE INDICATIVE OF A M.I.THAN THE ABSOLUTE VALUE. Performed By: #### 5 0608 ####[address] LUMBAR SPINE WO CONTRA STon 06-16-[address] LUMBAR SPINE [facility] CONTRAST [facility] [address] [place] [id number] Patient Name: DESEAN LANDRY : 1940ex: MAge: Race: WhiteMRN: [id number]. Location: [id number] Status: IVisit #: [id number] Date: 06/16/2017 10:45:00 AMCompleted Date: 06/16/2017 11:31 AMRequesting Provider: NADEEN SALCEDO Attending Provider: NADEEN SALCEDO Report Copy To: Signs & Symptoms: Back Pain (specify level)History: Patient history not availableComments: R/O Fractures, If Other selected, state reason for examExam: 3D CT LUMBAR SPINE WO CONTRASTAccession #: [id number] 3D CT LUMBAR SPINE WO CONTRAST 06/16/2017 [...] findings. Electronically signed by:Srinath Meyer. Transcribed by: [email or web address], User Resident: PAOLA WOLFElectronically Signed by: SRINATH MEYER @ 06/16/2017 12:13 PMI personally read this/these film(s) with this resident Normal [facility] Comment on above: Order Comment: No: Do not add to previou s draw 3D CT THORACIC SPINE WO CONT RASTon 06-16-[address] THORACIC SPINE WO CONTRAST [facility] [address] [place] [address] Patient Name: DESEAN LANDRY : 2Sex: MAge: Race: WhiteMRN: [id number]. Location: [id number] Status: IVisit #: [id number] Date: 06/16/2017 10:45:00 AMCompleted Date: 06/16/2017 11:32 AMRequesting Provider: NADEEN SALCEDO Attending Provider: NADEEN SALCEDO Report Copy To: Signs & Symptoms: Back Pain (specify level)History: Patient history not availableComments: R/O Fractures, History of Fall and c/o Back Pain. Rule out fractureExam: 3D CT THORACIC SPINE WO CONTRASTAccession #: [id number] 3D CT THORACIC SPINE WO CONTRAST 06/16/2017 [...] findings. Electronically signed by:Srinath Meyer. Transcribed by: [email or web address], User Resident: CAN HARRISElectronically Signed by: SRINATH MEYER @ 06/16/2017 12:03 PMI personally read this/these film(s) with this resident Normal [facility] Comment on above: Order Comment: No: Do not add to previou s draw BASIC METABOLIC PANELon Calcium 7.9 mg/dL Low 8.6-10.3 [facility] Comment on above: Order Comment: No: Do not add to previou s draw Performed By: #### 0 0071, 29820 ####[facility] [facility] [address], [facility] Chloride 112 mmol/L High 98-107 [facility] Comment on above: Order Comment: No: Do not add to previou s draw Performed By: #### 0 0071, 49772 ####[facility] [place] [address], [facility] CO2 22 mmol/L Normal 21-31 [facility] Comment on above: Order Comment: No: Do not add to previou s draw Performed By: #### 0 0071, 19928 ####[facility] [place] [address], [facility] Creatinine 1.05 mg/dL Normal 0.70-1.30 [facility] Comment on above: Order Comment: No: Do not add to previou s draw Performed By: #### 0 0071, 06005 ####[facility] eGFR (black) mL/min/{1.73_m2} Normal >60 [facility] Comment on above: Order Comment: No: Do not add to previou s draw Result Comment: Calc ulation may not be valid for patients over 70 years Performed By: #### 0 0071, 05604 ####[facility] eGFR (non-black) mL/min/{1.73_m2} Normal >60 [facility] Comment on above: Order Comment: No: Do not add to previou s draw Result Comment: Calc ulation may not be valid for patients over 70 years Performed By: #### 0 0071, 97778 ####[facility] [place] [address], [facility] Glucose mass conc 102 mg/dL High 70-100 [facility] Comment on above: Order Comment: No: Do not add to previou s draw Performed By: #### 0 0071, 23079 ####[facility] [place] [address], [facility] Potassium molar conc 4.0 mmol/L Normal 3.5-5.1 [facility] Comment on above: Order Comment: No: Do not add to previou s draw Performed By: #### 0 0071, 22268 ####[facility] [place] [address], [facility] Sodium 139 mmol/L Normal 136-145 [facility] Comment on above: Order Comment: No: Do not add to previou s draw Performed By: #### 0 0071, 08872 ####[facility] [place] [address], [facility] Urea nitrogen 20 mg/dL Normal 7-25 [facility] Comment on above: Order Comment: No: Do not add to previou s draw Performed By: #### 0 0071, 21104 ####[facility] [place] [address], [facility] BNP (B-TYPE NATRIURETIC PEPT DEANNE)on 01-02-2018 BNP 1298 pg/mL High 0-100 [facility] Comment on above: Order Comment: No: Do not add to previou s draw Result Comment: Give n the appropriate clinical setting a BNP result of >100 pg/mLindicates congestive heart failure. Performed By: #### 5 0608 ####[facility] CBC COMPLETE BLOOD COUNTon 0 06-16-2017 Erythrocyte distribution width Auto Ratio (RBC) 13.7 % Normal 11.5-16.9 [facility] Comment on above: Order Comment: No: Do not add to previou s draw Performed By: #### 0 0071, 08584 ####[facility] Erythrocytes (RBC) 4.24 mill/mm3 Low 4.30-5.90 [facility] Comment on above: Order Comment: No: Do not add to previou s draw Performed By: #### 0 0071, 59456 ####[facility] Hematocrit (HCT) 40.7 % Normal 39.0-55.0 [facility] Comment on above: Order Comment: No: Do not add to previou s draw Performed By: #### 0 0071, 71240 ####[facility] Hemoglobin mass conc (Bld) 13.6 g/dL Low 13.9-16.3 [facility] Comment on above: Order Comment: No: Do not add to previou s draw Performed By: #### 0 0071, 03713 ####[facility] MCH 32.1 pg High 24.0-32.0 [facility] Comment on above: Order Comment: No: Do not add to previou s draw Performed By: #### 0 0071, 98699 ####[facility] [facility].[address] MCHC mass conc (RBC) 33.4 g/dL Normal 32.0-36.0 [facility] Comment on above: Order Comment: No: Do not add to previou s draw Performed By: #### 0 0071, 89391 ####[facility] [facility].[address] MCV 96.1 fL Normal 80.0-100.0 [facility] Comment on above: Order Comment: No: Do not add to previou s draw Performed By: #### 0 0071, 65287 ####[facility] [facility].[address] PLAT CNT 120 Thou/mm3 Normal 100-400 [facility] Comment on above: Order Comment: No: Do not add to previou s draw Performed By: #### 0 0071, 11757 ####[facility] [facility].[address] WBC (Leukocytes) 10.3 Thou/mm3 High 4.0-10.0 [facility] Comment on above: Order Comment: No: Do not add to previou s draw Performed By: #### 0 0071, 56025 ####[facility] [facility].[address] CPKon 06-16-2017 Creatine kinase (CK) 2950 U/L Critically high 30-223 [facility] Comment on above: Performed By: #### 41344, 34095 ####[facility] CR-PORTABLE CHEST 1 VIEW IMP Emeli 06-16-2017 CR-PORTABLE CHEST 1 VIEW IMPORT Images were obtained outside of [facility] [id number] Normal [facility] CT CHEST WO CONTRASTon 06-16 CT CHEST WO CONTRAST [facility] [address] [place] [address] Patient Name: DESEAN LANDRY : 2Sex: MAge: Race: WhiteMRN: [id number]. Location: [id number] Status: IVisit #: [id number] Date: 06/16/2017 5:25:00 PMCompleted Date: 06/16/2017 06:06 PMRequesting Provider: RAFFAELE GARCIA Attending Provider: NADEEN SALCEDO Report Copy To: Signs & Symptoms: Shortness of BreathHistory: Patient history not availableComments: R/O Pleural Effusion, please comment about pleural effusionExam: CT CHEST WO CONTRASTAccession #: [id number] CT CHEST WO CONTRAST 06/16/2017 6:06 PM [...] findings. Electronically signed by:Xiomara Christine. Transcribed by: [email or web address], User Resident: SUNITHA CAMACHOElectronically Signed by: XIOMARA CHRISTINE @ 06/17/2017 01:24 PMI personally read this/these film(s) with this resident Normal [facility] Comment on above: Order Comment: No: Do not add to previou s draw CT-3D CT LUMBAR SPINE WO CON TRAST IMPORTon 06-16-2017 CT-3D CT LUMBAR SPINE WO CONTRAST IMPORT Images were obtained outside of [facility] [id number] Normal [facility] CT-3D CT THORACIC SPINE WO C ONTRAST IMPORTon 06-16-2017 CT-3D CT THORACIC SPINE WO CONTRAST IMPORT Images were obtained outside of [facility] [id number] Normal [facility] CT-CT CHEST WO CONTRAST IMPO RTon 06-16-2017 CT-CT CHEST WO CONTRAST IMPORT Images were obtained outside of [facility] [id number] Normal [facility] [facility] MYOGLOBINon 06-16-2017 Myoglobin 872 ng/mL Critically high 0-90 [facility] Comment on above: Result Comment: A DOUBLING OF VALUES FRO M SERIAL BLOOD COLLECTIONS(1 - 2 HOURS APART) IS MORE INDICATIVE OF A M.I.THAN THE ABSOLUTE VALUE. Performed By: #### 0 0071, 82818 ####[facility] [place] [address] PORTABLE CHEST 1 VIEWon PORTABLE CHEST 1 VIEW [facility]kulgr[facility]gb[address] [place] [address] Patient Name: DESEAN LANDRY : 1940ex: MAge: Race: WhiteMRN: [id number]. Location: [id number] Status: IVisit #: [id number] Date: 06/16/2017 12:50:00 PMCompleted Date: 06/16/2017 01:22 PMRequesting Provider: NADEEN SALCEDO Attending Provider: NADEEN SALCEDO Report Copy To: Signs & Symptoms: O2 DesaturationHistory: Patient history not availableComments: R/O AspirationExam: PORTABLE CHEST 1 VIEWAccession #: [id number] PORTABLE CHEST 1 VIEW 06/16/2017 1:22 PM [...] chest. Electronically signed by:Srinath Meyer. Transcribed by: [email or web address], User Resident: Electronically Signed by: SRINATH MEYER @ 06/16/2017 01:25 PM Normal [facility] Comment on above: Order Comment: No: Do not add to previou s draw PROTHROMBIN TIMEon 8 INR Coag RelTime (PPP) 1.51 {INR} High 0.91-1.16 [facility] Comment on above: Order Comment: No: [...] OF ACTION, CLINICALEFFECTIVENESS, AND OPTIMAL THERAPEUTIC RANGE. [id number]. Performed By: #### 5 0608 ####[facility] Prothrombin time (PT) Coag time (PPP) 18.4 s High 12.3-14.8 [facility] Comment on above: Order Comment: No: Do not add to previou s draw Result Comment: ALL RESULTS MUST BE INTERPRETED WITH RESPECT TO BLOOD DRAWING ARTIFACTOR DILUTION ERROR OF ANTICOAGULANT AT THE TIME OF SAMPLING. Performed By: #### 5 0608 ####[facility] BASIC METABOLIC PANELon 01-0 Calcium 8.0 mg/dL Low 8.6-10.3 [facility] Comment on above: Order Comment: No: Do not add to previou s draw Performed By: #### 0 0071, 54006, 26043, 51319 ####[facility] Chloride 109 mmol/L High 98-107 [facility] Comment on above: Order Comment: No: Do not add to previou s draw Performed By: #### 0 0071, 63803, 01273, 07876 ####[facility] [place] [address], [facility] CO2 21 mmol/L Normal 21-31 [facility] Comment on above: Order Comment: No: Do not add to previou s draw Performed By: #### 0 0071, 01233, 80772, 84438 ####[facility] [place] [address], [facility] Creatinine 1.15 mg/dL Normal 0.70-1.30 [facility] Comment on above: Order Comment: No: Do not add to previou s draw Performed By: #### 0 0071, 56665, 01479, 26886 ####[facility] [place] [address], [facility] eGFR (black) mL/min/{1.73_m2} Normal >60 [facility] Comment on above: Order Comment: No: Do not add to previou s draw Result Comment: Calc ulation may not be valid for patients over 70 years Performed By: #### 0 0071, 19008, 34902, 88090 ####[facility] [place] [address], [facility] eGFR (non-black) mL/min/{1.73_m2} Normal >60 [facility] Comment on above: Order Comment: No: Do not add to previou s draw Result Comment: Calc ulation may not be valid for patients over 70 years Performed By: #### 0 0071, 54934, 85394, 78413 ####[facility] [place] [address], [facility] Glucose mass conc 117 mg/dL High 70-100 [facility] Comment on above: Order Comment: No: Do not add to previou s draw Performed By: #### 0 0071, 72376, 66026, 34099 ####[facility] [place] [address], [facility] Potassium molar conc 3.9 mmol/L Normal 3.5-5.1 [facility] Comment on above: Order Comment: No: Do not add to previou s draw Performed By: #### 0 0071, 26606, 78534, 55689 ####[facility] [place] [address], [facility] Sodium 138 mmol/L Normal 136-145 [facility] Comment on above: Order Comment: No: Do not add to previou s draw Performed By: #### 0 0071, 21188, 18999, 76843 ####[facility] [place] [address], [facility] Urea nitrogen 23 mg/dL Normal 7-25 [facility] Comment on above: Order Comment: No: Do not add to previou s draw Performed By: #### 0 0071, 96576, 13323, 05699 ####[facility] CBC COMPLETE BLOOD COUNTon 0 06-15-2017 Erythrocyte distribution width Auto Ratio (RBC) 13.7 % Normal 11.5-16.9 [facility] Comment on above: Order Comment: No: Do not add to previou s draw Performed By: #### 5 0608 ####[facility] [facility].[address] Erythrocytes (RBC) 4.44 mill/mm3 Normal 4.30-5.90 [facility] Comment on above: Order Comment: No: Do not add to previou s draw Performed By: #### 5 0608 ####[facility] [facility] Hematocrit (HCT) 42.7 % Normal 39.0-55.0 [facility] Comment on above: Order Comment: No: Do not add to previou s draw Performed By: #### 5 0608 ####[place] [address] [facility].[address] Hemoglobin mass conc (Bld) 14.5 g/dL Normal 13.9-16.3 [facility] Comment on above: Order Comment: No: Do not add to previou s draw Performed By: #### 5 0608 ####[facility] [facility].[address] MCH 32.7 pg High 24.0-32.0 [facility] Comment on above: Order Comment: No: Do not add to previou s draw Performed By: #### 5 0608 ####[facility] [place] [address], [facility] MCHC mass conc (RBC) 34.0 g/dL Normal 32.0-36.0 [facility] Comment on above: Order Comment: No: Do not add to previou s draw Performed By: #### 5 0608 ####[facility] [facility] MCV 96.1 fL Normal 80.0-100.0 [facility] Comment on above: Order Comment: No: Do not add to previou s draw Performed By: #### 5 0608 ####[facility] [facility] PLAT CNT 134 Thou/mm3 Normal 100-400 [facility] Comment on above: Order Comment: No: Do not add to previou s draw Performed By: #### 5 0608 ####[facility] [facility].[address] WBC (Leukocytes) 11.3 Thou/mm3 High 4.0-10.0 [facility] Comment on above: Order Comment: No: Do not add to previou s draw Performed By: #### 5 0608 ####[facility] [facility].[address] CPKon 06-15-2017 Creatine kinase (CK) 7925 U/L Critically high 30-223 [facility] Comment on above: Order Comment: No: Do not add to previou s draw Performed By: #### 0 0071, 94612 ####[facility]3000 [facility].[address] MAGNESIUM BLOODon 06-15-2017 Magnesium 2.4 mg/dL Normal 1.9-2.7 [facility] Comment on above: Performed By: #### 84598, 04186 ####[facility] [place] [address], [facility] PHOSPHORUS BLOODon 8 Phosphate 2.6 mg/dL Normal 2.5-5.0 [facility] Comment on above: Performed By: #### 46019, 27948 ####[facility] [place] [address], [facility] BASIC METABOLIC PANELon 12-3 Calcium 8.3 mg/dL Low 8.6-10.3 [facility] Comment on above: Order Comment: No: Do not add to previou s draw Performed By: #### 4 1000, 45802, 67693, 79407, 17808 ####[facility] [place] [address], [facility] Chloride 107 mmol/L Normal 98-107 [facility] Comment on above: Order Comment: No: Do not add to previou s draw Performed By: #### 4 1000, 08115, 62195, 99097, 02363 ####[facility] [place] [address], [facility] CO2 23 mmol/L Normal 21-31 [facility] Comment on above: Order Comment: No: Do not add to previou s draw Performed By: #### 4 1000, 24323, 37051, 89223, 32552 ####[facility] [place] [address], [facility] Creatinine 1.25 mg/dL Normal 0.70-1.30 [facility] Comment on above: Order Comment: No: Do not add to previou s draw Performed By: #### 4 1000, 71105, 93047, 94411, 69065 ####[facility] [place] [address], [facility] eGFR (black) mL/min/{1.73_m2} Normal >60 [facility] Comment on above: Order Comment: No: Do not add to previou s draw Result Comment: Calc ulation may not be valid for patients over 70 years Performed By: #### 4 1000, 63855, 74164, 49341, 73836 ####[facility] eGFR (non-black) 56 ml/min/1.73sq m Abnormal >60 [facility] Comment on above: Order Comment: No: Do not add to previou s draw Result Comment: Calc ulation may not be valid for patients over 70 years Performed By: #### 4 1000, 08318, 43692, 50155, 60602 ####[facility] Glucose mass conc 109 mg/dL High 70-100 [facility] Comment on above: Order Comment: No: Do not add to previou s draw Performed By: #### 4 1000, 97514, 84593, 73495, 33479 ####[facility] [place] [address], [facility] Potassium molar conc 4.3 mmol/L Normal 3.5-5.1 [facility] Comment on above: Order Comment: No: Do not add to previou s draw Performed By: #### 4 1000, 64709, 83798, 79990, 18872 ####[facility] [place] [address], [facility] Sodium 136 mmol/L Normal 136-145 [facility] Comment on above: Order Comment: No: Do not add to previou s draw Performed By: #### 4 1000, 16655, 39958, 47713, 41001 ####[facility] Urea nitrogen 25 mg/dL Normal 7-25 [facility] Comment on above: Order Comment: No: Do not add to previou s draw Performed By: #### 4 1000, 32225, 40750, 26411, 86401 ####[facility] [place] [address], [facility] CBC COMPLETE BLOOD COUNTon Erythrocyte distribution width Auto Ratio (RBC) 13.8 % Normal 11.5-16.9 [facility] Comment on above: Order Comment: No: Do not add to previou s draw Performed By: #### 5 0608 ####[facility] [place] [address], [facility] Erythrocytes (RBC) 4.83 mill/mm3 Normal 4.30-5.90 [facility] Comment on above: Order Comment: No: Do not add to previou s draw Performed By: #### 5 0608 ####[facility] [place] [address], [facility] Hematocrit (HCT) 46.7 % Normal 39.0-55.0 [facility] Comment on above: Order Comment: No: Do not add to previou s draw Performed By: #### 5 0608 ####[facility] [place] [address], [facility] Hemoglobin mass conc (Bld) 15.8 g/dL Normal 13.9-16.3 [facility] Comment on above: Order Comment: No: Do not add to previou s draw Performed By: #### 5 0608 ####[facility] [place] [address], [facility] MCH 32.7 pg High 24.0-32.0 [facility] Comment on above: Order Comment: No: Do not add to previou s draw Performed By: #### 5 0608 ####[facility] [place] [address], [facility] MCHC mass conc (RBC) 33.9 g/dL Normal 32.0-36.0 [facility] Comment on above: Order Comment: No: Do not add to previou s draw Performed By: #### 5 0608 ####[facility] [place] [address], [facility] MCV 96.6 fL Normal 80.0-100.0 [facility] Comment on above: Order Comment: No: Do not add to previou s draw Performed By: #### 5 0608 ####[facility] [place] [address], [facility] PLAT CNT 135 Thou/mm3 Normal 100-400 [facility] Comment on above: Order Comment: No: Do not add to previou s draw Performed By: #### 5 0608 ####[facility] [place] [address], [facility] WBC (Leukocytes) 15.7 Thou/mm3 High 4.0-10.0 [facility] Comment on above: Order Comment: No: Do not add to previou s draw Performed By: #### 5 0608 ####[facility] CPKon 06-14-2017 Creatine kinase (CK) 94172 U/L Critically high 30-223 [facility] Comment on above: Performed By: #### 00369, 92324, 48827, 30717, 58489 ####[facility] MAGNESIUM BLOODon 06-14-2017 Magnesium 2.8 mg/dL High 1.9-2.7 [facility] Comment on above: Order Comment: No: Do not add to previou s draw Performed By: #### 4 1000, 15843, 36918, 67158, 50445 ####[facility] [place] [address], [facility] PHOSPHORUS BLOODon 7 Phosphate 3.3 mg/dL Normal 2.5-5.0 [facility] Comment on above: Order Comment: No: Do not add to previou s draw Performed By: #### 4 1000, 48764, 58797, 19142, 16317 ####[facility] [place] [address], [facility] TSHon 06-14-2017 Thyroid stimulating hormone (TSH) 2.65 MICRO-IU/ML Normal 0.34-5.60 [facility] Comment on above: Performed By: #### 96115, 28574, 79407, 93945, 20674 ####[facility] BASIC METABOLIC PANELon 12-3 Calcium 8.4 mg/dL Low 8.6-10.3 [facility] Comment on above: Order Comment: No: Do not add to previou s draw Performed By: #### 0 0071, 98436 ####[facility] [place] [address], [facility] Chloride 105 mmol/L Normal 98-107 [facility] Comment on above: Order Comment: No: Do not add to previou s draw Performed By: #### 0 0071, 19582 ####[facility] [place] [address], [facility] CO2 26 mmol/L Normal 21-31 [facility] Comment on above: Order Comment: No: Do not add to previou s draw Performed By: #### 0 0071, 68017 ####[facility] [place] [address], [facility] Creatinine 1.26 mg/dL Normal 0.70-1.30 [facility] Comment on above: Order Comment: No: Do not add to previou s draw Performed By: #### 0 0071, 69763 ####[facility] [place] [address], [facility] eGFR (black) mL/min/{1.73_m2} Normal >60 [facility] Comment on above: Order Comment: No: Do not add to previou s draw Result Comment: Calc ulation may not be valid for patients over 70 years Performed By: #### 0 0071, 47901 ####[facility] [place] [address], [facility] eGFR (non-black) 56 ml/min/1.73sq m Abnormal >60 [facility] Comment on above: Order Comment: No: Do not add to previou s draw Result Comment: Calc ulation may not be valid for patients over 70 years Performed By: #### 0 0071, 33805 ####[facility] [place] [address], [facility] Glucose mass conc 106 mg/dL High 70-100 [facility] Comment on above: Order Comment: No: Do not add to previou s draw Performed By: #### 0 0071, 95068 ####[facility] [place] [address], [facility] Potassium molar conc 4.8 mmol/L Normal 3.5-5.1 [facility] Comment on above: Order Comment: No: Do not add to previou s draw Performed By: #### 0 0071, 63399 ####[facility] [place] [address], [facility] Sodium 138 mmol/L Normal 136-145 [facility] Comment on above: Order Comment: No: Do not add to previou s draw Performed By: #### 0 0071, 76837 ####[facility] [place] [address], [facility] Urea nitrogen 23 mg/dL Normal 7-25 [facility] Comment on above: Order Comment: No: Do not add to previou s draw Performed By: #### 0 0071, 71145 ####[facility] [place] [address], [facility] CPKon 06-13-2017 Creatine kinase (CK) 76976 U/L Critically high 30-223 [facility] Comment on above: Order Comment: No: Do not add to previou s draw Performed By: #### 0 0071, 99663 ####[facility] [address] History and Physicalon 06-13 History and Physical [id number]ese[facility]ry Admitted: 06/13/2017 Date of : 1940 Attending Physician: Arpan Camacho MD Room #: 4AB [id number] Discharge Date: HISTORY AND PHYSICALPRIMARY CARE PHYSICIAN: [...] evaluation and management.The patient presented to the [facility] Emergency Department. Overthere, the patient had initial workup revealed severe rhabdomyolysis, sothe patient was referred to the [facility] for further evaluationand management. Denying any chest [...] Dict: 06/13/2017/06:07 P/Mariangel Hayes Trans: 06/13/2017 06:38 P/[id number] Normal [facility] Encounters Encounter Date Encounter Type Care Provider Facility Start: 02-18-2023 End: 02-18-2023 ambulatory DRAGAN PEPPER [facility] Start: 12-05-2022 End: 12-05-2022 ambulatory AYDE WAGONER [facility] Start: 09-10-2022 End: 09-10-2022 ambulatory MYAH RUSSELL [facility] Start: 09-02-2022 Evaluation and management of inpatient [facility] Start: 09-01-2022 Evaluation and management of inpatient [facility] Start: 09-01-2022 ambulatory [facility] Start: 09-01-2022 End: 09-02-2022 Evaluation and management of inpatient [facility] Start: 08-26-2022 End: 08-27-[address] DIOGENES [...] Patient encounter procedure CESAR ROWLEY [facility] Start: 09-10-2017 End: 09-11-2017 Patient encounter procedure CESAR ROWLEY [facility] Start: 07-23-2017 End: 07-24-2017 Patient encounter procedure CESAR ROWLEY [facility] Start: 07-23-2017 End: 07-23-2017 Patient encounter procedure KALEB SANDOVAL [facility] Start: 06-13-2017 End: 06-20-2017 Evaluation and management of inpatient ARPAN FRANK Facility:[facility] Procedures Date Procedure Procedure Detail Performing Clinician Start: 07-30-[address] YUAN CASIANO . Comment on above: Performed By: #### P TT, PT #### [facility] [address] [place] [address] [address] Artem Rojas Payers Date Payer Category Payer [employer] ( and others) [id number] 1958 Medicare [id number] 1940 Unknown [id number] 1940 Unknown [id number] 1940 Unknown [id number] 1940 Unknown [id number] 1940 Unknown [id number] 1940 Unknown [id number] Medicare [id number] Progress note 02-18-2023 Note Date & Type Note Facility 02-18-2023 Note MD Cardiology - [facility] Subjective Desean Landry Jr. is [...] Update 07/08/2017: He was admitted recently to [facility] after falling and having rhabdomyolysis. He was hydrated. He did well. This was possibly related to deconditioning and he is getting physical therapy. He will be soon discharged to home from the senior living. otherwise he has no issues. Update 02/04/2018: [...] No bleeding on (more content not included)... [facility] Progress note 12-05-2022 Note Date & Type Note Facility 12-05-2022 Note MD Cardiology Consul t Note Reason for visit: [...] is accompanied today by his power of tax attorney. He is tolerating his DOAC with [...] Friends and Family: Twice a week Attends Zoroastrianism Services: More than 4 times per year [...] gums, no snorin (more content not included)... [facility] Progress note 12-05-2022 Note Date & Type Note Facility 12-05-2022 Note Review of Systems All other systems reviewed and are negative. [facility] Progress note 09-10-2022 Note Date & Type Note Facility 09-10-2022 Note Patient seen for wou nd check s/p [employer] pacemaker placement on 09/01/2022 for AF [...] 100 mg BID x7 days. Prescription sent. [facility] Progress note 09-02-2022 Note Date & [...] No further OTM concerns at this time. [facility] Progress note 09-02-2022 Note Date & Type Note Facility 09-02-2022 Note Social Work Mechanical Striper jaspreet et with patient to discuss dc [...] No further OTM needs at this time. [facility] Procedure note 09-01-2022 Note Date & Type Note Facility 09-01-2022 Note SINGLE CHAMBER PACEM JULIUS IMPLANT PROCEDURE NOTE DATE OF PROCEDURE: 09/01/2022 PERFORMING PHYSICIAN: Dr. Damian Wolf DIAMOND GRINDER: Dr.Chandramohan Camarillo CONSENT: Patient/POA LOCATION: EP Lab PROCEDURE PERFORMED: 1. Implantation of single chamber PPM ([employer]) 2. Ultrasound guided venous access INDICATIONS: [...] using modified seldinger technique using a 5 English micropunture needle with ultrasound guidance with some difficulty. 0.35??? wire was placed. Local infiltration of 1% Lidocaine was performed, and an incision was created in the left upper chest with prior incision extended. Dissection was then performed using cautery down to the fascial plane above the muscle. Gentle dissection was performed, and a small pocket was made enough for the device. 6 English Safe sheath was placed over the wire. An active fixation [employer] pacing lead was then delivered through the 6Fsheath to the right ventricle. After confirmation of lead position on orthogonal views (BELTRÁN and CAMBODIAN) to confirm septal position, the screw was activated, and the lead was placed in the right ventricular mid cavity towards the septum. After confirmation of good sensing parameters, injury pattern and pacing thresholds, 10V pacing was done and no diaphragmatic stimulation was noted. It was then secured in the pocket using three 1-0 silk sutures. A [employer] pacemaker generator was then burped with [...] x 2 week. Damian Wolf Cardiac Electrophysiology [facility] Clinical Note 09-01-2022 Note Date & Type Note Facility 09-01-2022 Note Patient: Desean crowley Jr. 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 Use of blood products discussed with patient who. Additional Equipment Requests [facility] Summary Purpose Family History No Family [...] section and content) DATE CREATED AUTHOR 12/08/2017 [facility] [place] DATE CREATED AUTHOR AUTHOR'S ORGANIZ ATION 05/18/2018 [facility] DATE CREATED AUTHOR AUTHOR'S ORGANIZ ATION 01/16/2021 [facility] DATE CREATED AUTHOR AUTHOR'S ORGANIZ ATION 06/06/2021 [facility] DATE CREATED AUTHOR AUTHOR'S ORGANIZ ATION 09/02/2022 [facility] DATE CREATED AUTHOR AUTHOR'S ORGANIZ ATION 08/24/2023 [facility] FOR RECORDS PERTAINING TO PATIENTS WHO [...] BE BASED ON THE PRIMARY CLINICAL RECORDS. [employer] provides no warranty or guarantee of the accuracy or completeness of information in this document.
--- NOTE | 2024-01-12 13:00 | US_ITS ---
The [address] [address] Patient Name: DESEAN LANDRY JR MRN: [id number] date: 1940 Sex: M Assigned Patient Location: [place] Current Patient Location: [place] Accession/Order Number: [id number] Exam Date: 01/12/2024 13:01 Report Date: 01/12/2024 14:01 At the request of: DIOGENES CASIANO Procedure: US venous doppler LE RT CLINICAL DATA: Leg swelling. PROCEDURE: Right lower extremity venous duplex ultrasound. TECHNIQUE: Agustin scale, color flow, and waveform spectral analysis was performed of the right lower extremity. FINDINGS: The right common femoral, profunda femoral, femoral, and popliteal veins were compressible. The saphenous vein was compressible. No venous thrombosis was seen. The veins fill with color Doppler. Augmentation was normal. Chronic changes are noted within the small saphenous vein. US/US venous doppler LE RT IMPRESSION: 1. No acute lower extremity deep venous thrombosis. 2. No acute superficial venous thrombosis. Chronic changes noted within the small saphenous vein. Electronically authenticated by: Maged RICCI Date: 01/12/2024 14:01
--- NOTE | 2024-01-12 13:04 | P.HP_ITS ---
HPI H&P: HPI History of Present Illness Chief complaint: LOWER EXTREMITY PAIN Narrative: Patient was seen and evaluated in the emergency room due to increasing pain and swelling of left lower extremity, some swelling of right lower extremity as well. Patient was recently treated as an outpatient for cellulitis. Per patient the cellulitis redness and swelling and pain is progressively worse. When I saw patient up on the medical surgical floor, he was resting comfortably in bed, has pain just mostly with walking. Denied fever or chills. Opioid HPI Opioid Management Most Recent Pain and Opioid Data: Last Pain Scale 5 01/13/24 02:27 Last Pain Assessment 01/13/24 07:29 Last MAR Pain Assessment 01/13/24 02:27 Last ORT Total Score 0 01/12/24 12:57 Last ORT Risk Category Low Risk 01/12/24 12:57 Review of Systems ROS Status of ROS 10 or more systems reviewed and unremark able except as noted in history and below PFSH PFS Medical History (Updated 01/12/24 @ 11:49 by Michael Curry MD) High cholesterol ?E78.00 - Pure hypercholesterolemia, unspecified (ICD-10) Afib ?I48.91 - Unspecified atrial fibrillation (ICD-10) Cardiac pacemaker ?Z95.0 - Presence of cardiac pacemaker (ICD-10) Edema ?R60.9 - Edema, unspecified (ICD-10) Social History (Updated 01/12/24 @ 13:42 by Lorrie Magaña LPN) Within the past year, how often did you have a drink containing alcohol: never Within the past year, how often did you have six or more drinks on one occasion: never Score interpretation: A score less than 4 is consistent with normal alcohol consumption. Smoking status: Former smoker Non-prescribed substance use: denies use Previous occupational history: disability Known occupational exposures/hazards: No Are you now , , , , never or living with a partner: never In a typical week, how many times do you talk on the telephone with family, friends, or neighbors: 3 or more times per week How often do you get together with friends or relatives: 3 or more times per week How often do you attend moravian or protestant services: never Do you belong to any clubs or organizations such as moravian groups unions, fraternal or athletic groups, or school groups: no Total score: 1 Score interpretation: A score of less than or equal to 1 indicates the most socially isolated. Little interest or pleasure in doing things: not at all Feeling down, depressed, or hopeless: not at all Feel stressed/tense/nervous/anxious/difficulty sleeping: not at all Due to disability, difficulty making decisions: No Do you think of yourself as: straight/heterosexual Gender Identity: male Meds Home Medications and Allergies Home Medications ?Medication ?Instructions ?Recorded ?Confirmed ?Type apixaban 5 mg tablet (Eliquis) 5 mg PO Q12H 08/19/23 01/12/24 History cholecalciferol (vitamin D3) 50 50 mcg PO DAILY 08/19/23 01/12/24 History mcg (2,000 unit) capsule (Vitamin D3) dicyclomine 20 mg tablet 20 mg PO TID 08/19/23 01/12/24 History glimepiride 2 mg tablet 2 mg PO DAILY 08/19/23 01/12/24 History spironolactone 25 mg tablet 25 mg PO DAILY 08/19/23 01/12/24 History aspirin 81 mg chewable tablet 1 tab PO DAILY 01/12/24 01/12/24 History simvastatin 20 mg tablet 20 mg PO QPM 01/12/24 01/12/24 History cefdinir 300 mg capsule 600 mg (2 x 300 mg) PO DAILY #20 01/13/24 Rx caps doxycycline monohydrate 100 mg 100 mg PO BID 10 days #20 caps 01/13/24 Rx capsule Allergies Allergy/AdvReac Type Severity Reaction Status Date / Time No Known Drug Allergies Allergy Verified 08/19/23 13:53 Exam Constitutional Vital Signs, click to edit/add: Last Vital Signs Temp 97.7 F 01/12/24 10:13 Pulse 60 01/12/24 10:13 Resp 16 01/12/24 10:13 BP 141/76 01/12/24 11:33 Pulse Ox 96 01/12/24 10:39 O2 Del Method Room Air 01/12/24 10:39 Documenting provider has reviewed patient's vital signs: yes Common normals: no apparent distress Chest Common normals: inspection of chest normal and palpation of chest normal Respiratory Common normals: normal respiratory effort and no retractions Cardio Common normals: regular rate and regular rhythm GI Common normals: Normal to inspection, nondistended, normoactive bowel sounds present Extremity Common normals: abnormal to inspection (Abrasion left lower leg with cellulitis, swelling, calor, dolor) Results Labs Labs: Short CBC 01/12/24 Range/Units 10:36 WBC 10.1 (4.0-11.0) 10^3/uL Hgb 14.1 (14.0-18.0) g/dL Hct 44.0 (42.0-54.0) % Plt Count 207 (150-450) 10^3/uL BMP 01/12/24 10:36 Sodium 143 Potassium 4.6 Chloride 106 Carbon Dioxide 27.8 BUN 12.0 Creatinine 1.09 Glucose 96 Calcium 9.0 Liver Function 01/12/24 Range/Units 10:36 Total Bilirubin 0.6 (0.2-1.0) mg/dL AST 16 (15-37) U/L ALT 15 L (16-63) U/L Alkaline Phosphatase 79 (46-116) U/L Albumin 3.3 L (3.4-5.0) g/dL Urine 01/12/24 Range/Units 10:58 Urine Color Lt. yellow (YELLOW) Urine Clarity Clear (CLEAR) Urine pH 6.0 (5.0-9.0) Ur Specific [place] <=1.005 A (1.005-1.025) Urine Protein Negative (NEG/TRACE) mg/dL Urine Glucose (UA) Negative (NEGATIVE) mg/dL Assessment and Plan Assessment and Plan (1) Cellulitis of left leg: (2) Fall: (3) Skin tear: Plan Patient admitted with cellulitis with failed outpatient treatment. Progressively worse at home. In ER patient unable to ambulate secondary to pain in left lower extremity with swelling. Abrasion noted to left lower extremity likely source of the infection. Patient is a diabetic. Complicating the outpatient course. Medically necessary treatment likely will span 2 midnights, blood cultures will be pending, failed outpatient treatment would recommend 2 days of IV antibiotics. 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 Treated as an outpatient with failed treatment. With the peripheral vascular disease, diabetes and failed outpatient treatment medically necessary treatment will span 2 midnights. Inpatient status.
[2024-01-12 13:24] LABS: Magnesium 2.1 mg/dL (1.8-2.4)
[2024-01-12 13:25] LABS: C Reactive Protein 0.82 mg/dL (<=0.50); Erythrocyte Sedimentation Rate 41 mm/hr (<=20)
[2024-01-12] MEDS: DICYCLOMINE HCL 10 MG CAPSULE 20 MG PO ×2 (14:12→21:03)
[2024-01-12] MEDS: CLINDAMYCIN PHOSPHATE/D5W 600 MG/50 ML PIGGYBACK 100 MG IV ×2 (14:12→20:51)
[2024-01-12] MEDS: 0.9 % SODIUM CHLORIDE 250 ML 10 ML IV (14:12)
[2024-01-12 16:31] LABS: Glucometer 77 mg/dL (74-106)
[2024-01-12] MEDS: APIXABAN 5 MG TABLET PO (21:03)
[2024-01-12] MEDS: ATORVASTATIN CALCIUM 10 MG TABLET PO (21:03)
[2024-01-12 21:11] LABS: Glucometer 89 mg/dL (74-106)
[2024-01-13] MEDS: CLINDAMYCIN PHOSPHATE/D5W 600 MG/50 ML PIGGYBACK 100 MG IV ×2 (02:23→08:40)
[2024-01-13] MEDS: ACETAMINOPHEN 500 MG TABLET 1000 MG PO (02:27)
[2024-01-13 05:21] VITALS: BP 123/79; PULSE 60; TEMP 36.3; O2SAT 96
[2024-01-13] MEDS: DICYCLOMINE HCL 10 MG CAPSULE 20 MG PO (05:22)
[2024-01-13 06:15] LABS: Basophils Absolute Auto 0.1 10^3/uL (0.0-0.1); Eosinophils Absolute Auto 0.3 10^3/uL (0.0-0.7); Eosinophils Percent Auto 2.9 % (0.9-7.0); Hematocrit 39.7 % (42.0-54.0); Hemoglobin 12.8 g/dL (14.0-18.0); Immature Granulocytes Abs Auto 0.03 10^3/uL (0.00-0.03); Immature Granulocytes Pct Auto 0.3 % (0.0-0.5); Lymphocytes Absolute Auto 1.7 10^3/uL (1.2-3.8); Lymphocytes Percent Auto 19.6 % (20.5-60.0); Mean Corpuscular HGB Conc 32.2 g/dL (29.9-35.2); Mean Corpuscular Hemoglobin 31.3 pg (25.9-34.0); Mean Corpuscular Volume 97.1 fL (80.0-94.0); Mean Platelet Volume 10.7 fL (9.5-13.5); Monocytes Absolute Auto 1.1 10^3/uL (0.3-0.8); Monocytes Percent Auto 12.3 % (1.7-12.0); Neutrophils Absolute Auto 5.7 10^3/uL (1.4-6.5); Neutrophils Percent Auto 63.9 % (43.0-75.0); Platelet Count 193 10^3/uL (150-450); Red Blood Count 4.09 10^6/uL (4.70-6.10); Red Cell Distribution Width 13.6 % (11.0-15.0); White Blood Count 8.9 10^3/uL (4.0-11.0)
[2024-01-13 06:24] LABS: Alanine Aminotransferase 15 U/L (16-63); Albumin Level 2.8 g/dL (3.4-5.0); Alkaline Phosphatase 68 U/L (46-116); Anion Gap 11.6; Aspartate Amino Transferase 14 U/L (15-37); BUN Creatinine Ratio 13.9; Bilirubin Total 0.6 mg/dL (0.2-1.0); C Reactive Protein 1.74 mg/dL (<=0.50); Calcium 8.8 mg/dL (8.5-10.1); Carbon Dioxide 30.2 mmol/L (21.0-32.0); Chloride 106 mmol/L (98-107); Estimated GFR (African America >60 (>=60); Estimated GFR (Non-African Ame >60 (>=60); Globulin 2.9 g/dL; Glucose 94 mg/dL (74-106); Potassium 4.8 mmol/L (3.5-5.1); Sodium 143 mmol/L (136-145); Total Protein 5.7 g/dL (6.4-8.2)
[2024-01-13 06:39] LABS: Erythrocyte Sedimentation Rate 21 mm/hr (<=20)
[2024-01-13 07:20] VITALS: BP 122/77; PULSE 60; TEMP 36.3; O2SAT 96
--- NOTE | 2024-01-13 08:14 | P.DS_ITS ---
DS: Providers Provider Date of admission: 01/12/24 13:00 Primary care physician: Vahid Garcia MD Consults: 01/12/24 12:56 Occupational Therapy Eval and Treat Routine Reason for consultation: Only if needed for Rehab Has provider been notified: No Physical Therapy Eval and Treat Routine Reason for consultation: Eval and Treat Has provider been notified: No DS: Diagnosis Discharge Diagnosis (1) Cellulitis of left leg: (2) Fall: (3) Skin tear: Plan Admission findings: Patient admitted with cellulitis with failed outpatient treatment. Progressively worse at home. In ER patient unable to ambulate secondary to pain in left lower extremity with swelling. Abrasion noted to left lower extremity likely source of the infection. Patient is a diabetic. Complicating the outpatient course. Medically necessary treatment likely will span 2 midnights, blood cultures will be pending, failed outpatient treatment would recommend 2 days of IV antibiotics. Improving at the time of discharge NIDDM-continue with home medications-stable at the time of discharge Iron deficiency anemia-monitor daily-decreased at the time of discharge Peripheral vascular disease-continue with aspirin and Eliquis-stable at the time of discharge Admission status: Patient with peripheral vascular disease with diabetes complicating the cellulitis course. Treated as an outpatient with failed treatment. With the peripheral vascular disease, diabetes and failed outpatient treatment medically necessary treatment will span 2 midnights. Inpatient status. DS: Summary Hospital Course Hospital Course: Patient was treated as an outpatient for cellulitis and complicated by diabetes and peripheral vascular disease, cellulitis form from an abrasion. Evaluation initially suggested a lengthy hospital course secondary to failed outpatient treatment is peripheral vascular disease. Complicated again by the diabetes. When I saw him this morning the leg looks much improved from the previous day. The medications he is currently on, and oral form. He is able to ambulate safely. All these are much quicker recovery than anticipated on initial admission. With quick improvement with IV medications that can, and oral form, will discharge patient to home in improving condition. Medications see list. See me in the office tomorrow. Anticipated length of stay was 2 days, patient improved much faster than anticip ated and is responding to IV medications are, and oral form so we will discharge patient to home today. Status at Discharge Overall status at discharge: patient is not back to baseline Time Spent with Patient Time attestation: Total time spent providing and/or coordinating discharge services: Time spent: greater than 30 minutes Exam Constitutional Vital Signs, click to edit/add: Last Vital Signs Temp 97.4 F L 01/13/24 07:20 Pulse 60 01/13/24 07:20 Resp 18 01/13/24 05:21 BP 122/77 01/13/24 07:20 Pulse Ox 96 01/13/24 07:20 O2 Del Method Room Air 01/13/24 07:20 Documenting provider has reviewed patient's vital signs: yes Common normals: no apparent distress Chest Common normals: inspection of chest normal and palpation of chest normal Respiratory Common normals: normal respiratory effort and no retractions Cardio Common normals: regular rate and regular rhythm GI Common normals: Normal to inspection, nondistended, normoactive bowel sounds present Extremity Common normals: abnormal to inspection (Erythema and swelling improved, inside line of demarcation) DS: Data Data Completed and Pending Labs on day of discharge: Labs from last 24 hours 01/13/24 01/12/24 01/12/24 05:18 21:04 16:30 WBC 8.9 RBC 4.09 L Hgb 12.8 L Hct 39.7 L MCV 97.1 H MCH 31.3 MCHC 32.2 RDW 13.6 Plt Count 193 MPV 10.7 Neut % (Auto) 63.9 Lymph % (Auto) 19.6 L [place] % (Auto) 12.3 H Eos % (Auto) 2.9 Baso % (Auto) 1.0 Neut # (Auto) 5.7 Lymph # (Auto) 1.7 [place] # (Auto) 1.1 H Eos # (Auto) 0.3 Baso # (Auto) 0.1 Abs Immat Gran (auto) 0.03 Imm/Tot Granulo (auto) 0.3 ESR 21 H PT INR Sodium 143 Potassium 4.8 Chloride 106 Carbon Dioxide 30.2 Anion Gap 11.6 BUN 14.0 Creatinine 1.01 Est GFR ( Amer) >60 Est GFR (Non-Af Amer) >60 BUN/Creatinine Ratio 13.9 Glucose 94 Lactate Calcium 8.8 Magnesium Total Bilirubin 0.6 AST 14 L ALT 15 L Alkaline Phosphatase 68 C-Reactive Protein 1.74 H Total Protein 5.7 L Albumin 2.8 L Globulin 2.9 Albumin/Globulin Ratio 1.0 Urine Color Urine Clarity Urine pH Ur Specific [place] Urine Protein Urine Glucose (UA) Urine Ketones Urine Occult Blood Urine Nitrite Urine Bilirubin Urine Urobilinogen Ur Leukocyte Esterase POC Glucose 89 77 01/12/24 01/12/24 10:58 10:36 WBC 10.1 RBC 4.56 L Hgb 14.1 Hct 44.0 MCV 96.5 H MCH 30.9 MCHC 32.0 RDW 13.5 Plt Count 207 MPV 10.4 Neut % (Auto) 70.7 Lymph % (Auto) 16.7 L [place] % (Auto) 9.7 Eos % (Auto) 1.8 Baso % (Auto) 0.8 Neut # (Auto) 7.1 H Lymph # (Auto) 1.7 [place] # (Auto) 1.0 H Eos # (Auto) 0.2 Baso # (Auto) 0.1 Abs Immat Gran (auto) 0.03 Imm/Tot Granulo (auto) 0.3 ESR 41 H PT 11.0 INR 1.04 Sodium 143 Potassium 4.6 Chloride 106 Carbon Dioxide 27.8 Anion Gap 13.8 BUN 12.0 Creatinine 1.09 Est GFR ( Amer) >60 Est GFR (Non-Af Amer) >60 BUN/Creatinine Ratio 11.0 Glucose 96 Lactate 1.6 Calcium 9.0 Magnesium 2.1 Total Bilirubin 0.6 AST 16 ALT 15 L Alkaline Phosphatase 79 C-Reactive Protein 0.82 H Total Protein 6.5 Albumin 3.3 L Globulin 3.2 Albumin/Globulin Ratio 1.0 Urine Color Lt. yellow Urine Clarity Clear Urine pH 6.0 Ur Specific [place] <=1.005 A Urine Protein Negative Urine Glucose (UA) Negative Urine Ketones Negative Urine Occult Blood Negative Urine Nitrite Negative Urine Bilirubin Negative Urine Urobilinogen 0.2 Ur Leukocyte Esterase Negative POC Glucose Discharge Plan Discharge Disposition: Home, Self-Care Condition: Good Discharge Medications: New doxycycline monohydrate 100 mg capsule 100 mg PO BID 10 Days Qty: 20 0RF cefdinir 300 mg capsule 600 mg PO DAILY Qty: 20 0RF Continued spironolactone 25 mg tablet 25 mg PO DAILY glimepiride 2 mg tablet 2 mg PO DAILY dicyclomine 20 mg tablet 20 mg PO TID cholecalciferol (vitamin D3) [Vitamin D3] 50 mcg (2,000 unit) capsule 50 mcg PO DAILY Eliquis 5 mg tablet 5 mg PO Q12H aspirin 81 mg tablet,chewable 1 tab PO DAILY simvastatin 20 mg tablet 20 mg PO QPM Print Language: French Forms: Portal Instructions
[2024-01-13] MEDS: GLIMEPIRIDE 2 MG TABLET PO (08:39)
[2024-01-13] MEDS: SPIRONOLACTONE 25 MG TABLET PO (08:40)
[2024-01-13] MEDS: CHOLECALCIFEROL (VITAMIN D3) 25 MCG/1,000 UNITS TABLET 50 MCG PO (08:40)
[2024-01-13] MEDS: APIXABAN 5 MG TABLET PO (08:40)
[2024-01-13] MEDS: CEFTRIAXONE 1,000 MG in 0.9 % SODIUM CHLORIDE 50 ML 100 MG IV (08:40)
[2024-01-13] MEDS: ASPIRIN 81 MG TAB.CHEW PO (08:40)
--- NOTE | 2024-01-13 09:28 | SWNOTE1 ---
SW met with pt to discuss dc needs. Pt lives at home by himself in an apartment. Pt uses a cane to get around. He voiced he used to have physical therapy come in, but it ended last Thursday. He spoke about a nurse coming in and a head of biology as well. Pt voiced he is being discharged today. SW asked permission to call pt's guardian to discuss any discharge needs. Pt gave SW approval to call. MICHELA called and spoke to Paulina, pt's guardian. Per Paulina, pt does have a nurse come in Thursday and Thursday in the morning thru [employer]. Paulina also pays a nurse privately to come in on Thursday evenings. Pt did have physical therapy coming in, but that ended last week. Pt was evaluated by our PT and pt was at baseline. At this time pt has no discharge needs and Paulina will bulk picker pt sometime after 10. Important Message from Medicare reviewed and discussed with patient's guardian. Pt's guardian verbalized understanding and MICHELA signed form after reviewing with guardian over the phone. Original placed in pt's room and copy placed in patient?s chart.
[2024-01-13 10:51] VITALS: O2SAT 95
--- NOTE | 2024-01-14 13:29 | CM.DCFOLLOWU ---
Person spoke with:pt's nurse How are you feeling? not well, legs are swollen and he is in pain How is your pain? painful, high level Did you understand your discharge instructions? yes Do you have any questions about your discharge instructions? no Were you given any prescriptions at discharge? yes Were you able to get your prescriptions filled? yes Do you understand how to take your medications as ordered? yes Do you have any questions about your follow up appointment and do you plan to keep your follow up appointment? no questions, has follow up January 18. Advised nurse that pt should go to an Emergency Dept. if continues to decline and not feel better. Is there anything else that you would like to discuss? no Questions/Comments/Concerns/Other: none
== END 2024-01-13 11:04 | disposition home or self-care (01) | DRG 638 ==
LOC: ER 12:29 → MS 12:37
PROVIDERS: Admitting Provider Family Medicine; Emergency Provider Emergency Medicine Emergency Medical Services; PCP Family Medicine; Visit Provider Family Medicine
DX: E11.628 Type 2 diabetes mellitus with other skin complications (principal); L03.116 Cellulitis of left lower limb; S80.812A Abrasion, left lower leg, initial encounter; D50.9 Iron deficiency anemia, unspecified; E11.51 Type 2 diabetes mellitus with diabetic peripheral angiopathy without gangrene; I48.91 Unspecified atrial fibrillation; Z95.0 Presence of cardiac pacemaker; E78.00 Pure hypercholesterolemia, unspecified; W19.XXXA Unspecified fall, initial encounter; Z79.01 Long term (current) use of anticoagulants; Z79.82 Long term (current) use of aspirin; Z79.899 Other long term (current) drug therapy; Z87.891 Personal history of nicotine dependence
CPT/HCPCS: 36415; 80053; 81003; 83605; 83735; 85025; 85610; 85652; 86140; 87040; 93971; 94761; 96365; 96366; 96367; 96368; 97161; 97165; 99285; J0690; J0696

== ENCOUNTER 2024-01-14 17:34 | Inpatient (IN) | payer MEDICARE, OTHER, MEDICAID, SELFPAY ==
[2024-01-14 17:40] VITALS: BP 166/70; PULSE 57; TEMP 36.8; O2SAT 98; BMI 27.9
--- OUTSIDE RECORDS SUMMARY | 2024-01-14 17:42 | XMS_ITS | CCD ---
Author Organization [facility] Care Team Providers Care Visual Arts Teacher Name Role Phone ARPAN CAMACHO Unavailable Unavailable SAHRA GILMORE Unavailable Unavailable HOY DIOGENES Unavailable Unavailable GAIL RENLAS Unavailable Unavailable LORI, RENDELL Unavailable Unavailable LORI, RENDELL Unavailable Unavailable LOY MORAHEL (BRICKMASON) Unavailable Unavailable LORI, RENDELL Unavailable Unavailable LORI, [...] Onset: 03-04-2022 Episodic Other aftercare (1 source) [facility] (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; Translations: [SKILLED NURSING (CURRENT) USE OF ANTICOAGULANTS] Onset: 06-13-2017 Episodic Other aftercare (1 source) [facility] (current) use of oral hypoglycemic drugs; Translations: [SKILLED NURSING USE ORAL HYPOGLYCEMIC DX] Onset: 03-04-2022 Episodic Other aftercare (1 source) 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 1940 Date Provider Department Center 08/19/2023 241DAMIAN VITALE [facility] ERIKA Whitaker Family History Problem Relation Age of Onset Cancer Mother Family Status - Relation Status Age at Mother Normal [facility] Office Visiton 02-18-2023 Follow-up visit [id number] Jordin Landry Jr. 1940 M Date Provider Department Center 02/18/2023 DRAGAN BALDWIN ERI[facility] Family History Problem Relation Age of Onset Cancer Mother Family Status - Relation Status Age at Mother Level of Service:50558 [place] OFFICE/OUTPATIENT ESTABLISHED LOW MDM 20-29 MIN Reason for Visit and Comments: Follow-up [258626] - Pt is here f/U [facility] Office Visiton 12-05-2022 Follow-up visit [id number] Jordin Landry Jr. 1940 M Date Provider Department [place] 12/05/2022 AYDE ZHENG ERIKA Guillen Family History Problem Relation Age of Onset Cancer Mother Family Status - Relation Status Age at Mother Level of Service:02542 [place] OFFICE/OUTPATIENT ESTABLISHED MOD MDM 30-39 MIN Reason for Visit and Comments: Follow-up [935340] - Pt is her for 3 month F/U [facility] Office Visiton 09-10-2022 Follow-up visit [id number] Jordin Landry Jr. 1940 Date Provider Department [place] 09/10/2022 MYAH COLLINS [facility] Family History Problem Relation Age of Onset Cancer Mother Family Status - Relation Status Age at Mother Level of Service:26436 [place] POSTOP FOLLOW UP VISIT RELATED TO ORIGINAL PX [facility] 30on 09-02-2022 30 The patient is Moder ately Unstable - Medium risk of patient condition declining or worsening The patient's goals for the shift include Pain Control The clinical goals for the shift include stable vs [facility] 30 The patient is Moder ately [...] DAILY: Assess and document skin integrity Normal [facility] DSon 09-02-2022 DS Admission Admitted 09/01/2022 for [...] Test Results Pending At Discharge none Normal [facility] NURSNOTEon 09-02-2022 NURSNOTE AVS reviewed with nikole gordon and guardizaid Gaspar. No questions or concerns at this time. AVS signed by guardian. Copy of AVS placed in bedside chart. Normal [facility] NURSNOTE RN spoke to Chasity (guardian) in regards to DC orders. Chasity is able to pick patient up around 1700 today. Patient is aware. Normal [facility] HPon 09-01-2022 [facility] Electrophysiology Consult [...] is accompanied today by his power of security test engineer. He is tolerating his DOAC with [...] (more content not included)... Normal [facility] Electrophysiology Consult Note Reason for visit: [facility] HPI: Desean Landry is a 81 y.o. [...] is accompanied today by his power of security test engineer. He is tolerating his DOAC with [...] done per protocol for PPM implant. Normal [facility] Orders Onlyon 09-01-2022 Orders Only [id number] Jordin Landry meghna Crawford Jr. 1940 M Date Provider Department Center 09/01/2022 RANCHO DENIS [facility] Family History Problem Relation Age of Onset Cancer Mother Family Status - Relation Status Age at Mother Normal [facility] CBC AUTO DIFFon 08-26-2022 BASO # 0.1 103/ul Normal 0.0-0.1 [facility] Comment on above: Performed By: #### CBC #### [facility] [address] [address] [address] Artem Rojas Basophils/100 WBC (Bld) 1.0 % Normal 0.2-2.0 [facility] Comment on above: Performed By: #### CBC #### [facility] [address] [address] [address] Artem Rojas EO # 0.2 103/ul Normal 0.0-0.7 [facility] Comment on above: Performed By: #### CBC #### [facility] [address] [address] [address] Artem Rojas Eosinophils/100 WBC (Bld) 2.0 % Normal 0.9-7.0 [facility] Comment on above: Performed By: #### CBC #### [facility] [address] [address] [address] Artem Rojas Erythrocyte distribution width (RBC) [Ratio] 13.1 % Normal 11.0-15.0 [facility] Comment on above: Performed By: #### CBC #### [facility] [address] [address] [address] Artem Rojas Hematocrit (Bld) [Volume fraction] 43.8 % Normal 42.0-54.0 [facility] Comment on above: Performed By: #### CBC #### [facility] [address] [address] [address] Artem Rojas Hemoglobin (Bld) [Mass/Vol] 14.5 g/dL Normal 14.0-18.0 [facility] Comment on above: Performed By: #### CBC #### [facility] [address] [place] [address] Dr. Artem Rojas IG # 0.07 10e3/ul Critically high 0.00-0.03 [facility] Comment on above: Performed By: #### CBC #### [facility] [address] [place] [address] Dr. Artem Rojas IG % 0.8 % Critically high 0.0-0.5 [facility] Comment on above: Performed By: #### CBC #### [facility] [address] [place] [address] Dr. Artem Rojas LYMPH # 1.8 103/ul Normal 1.2-3.8 [facility] Comment on above: Performed By: #### CBC #### [facility] [address] [place] [address] Dr. Artem Rojas Lymphocytes/100 WBC (Bld) 20.0 % Critically low 20.5-60.0 [facility] Comment on above: Performed By: #### CBC #### [facility] [address] [place] [address] Dr. Artem Rojas MANUAL DIFF REQ NO Normal [facility] Comment on above: Performed By: #### CBC #### [facility] [address] [place] [address] Dr. Artem Rojas MCH (RBC) [Entitic mass] 30.0 pg Normal 25.9-34.0 [facility] Comment on above: Performed By: #### CBC #### [facility] [address] [place] [address] Dr. Artem Rojas MCHC (RBC) [Mass/Vol] 33.1 g/dL Normal 29.9-35.2 [facility] Comment on above: Performed By: #### CBC #### [facility] [address] [place] [address] Dr. Artem Rojas MCV (RBC) [Entitic vol] 90.7 fL Normal 80.0-94.0 [facility] Comment on above: Performed By: #### CBC #### [facility] [address] [place] [address] Dr. Artem Rojas MONO # 0.8 103/ul Normal 0.3-0.8 [facility] Comment on above: Performed By: #### CBC #### [facility] [address] [place] [address] Dr. Artem Rojas Monocytes/100 WBC (Bld) 8.7 % Normal 1.7-12.0 [facility] Comment on above: Performed By: #### CBC #### [facility] [address] [place] [address] Dr. Artme Rojas NEUT # 6.1 103/ul Normal 1.4-6.5 [facility] Comment on above: Performed By: #### CBC #### [facility] [address] [place] [address] Dr. Artem Rojas Neutrophils/100 WBC (Bld) 67.5 % Normal 43.0-75.0 [facility] Comment on above: Performed By: #### CBC #### [facility] [address] [place] [address] Dr. Artem Rojas Platelet mean volume (Bld) [Entitic vol] 9.7 fL Normal 9.5-13.5 [facility] Comment on above: Performed By: #### CBC #### [facility] [address] [place] [address] Dr. Artem Rojas PLT 333 103/ul Normal 150-450 [facility] Comment on above: Performed By: #### CBC #### [facility] [address] [place] [address] Dr. Artem Rojas RBC 4.83 106/ul Normal 4.70-6.10 [facility] Comment on above: Performed By: #### CBC #### [facility] [address] [place] [address] Dr. Artem Rojas WBC 9.0 103/ul Normal 4.0-11.0 [facility] Comment on above: Performed By: #### CBC #### [facility] [address] [place] [address] Dr. Artem Rojas PROF CHEM 8 (BAS METB)on Anion gap [Moles/Vol] 9.4 mmol/L Normal [facility] Comment on above: Performed By: #### PTT, PT #### [facility] [address] [place] [address] Dr. Artem Rojas Calcium [Mass/Vol] 9.4 mg/dL Normal 8.5-10.1 [facility] Comment on above: Performed By: #### PTT, PT #### [facility] [address] [place] [address] Dr. Artem Rojas Chloride [Moles/Vol] 105 mmol/L Normal 98-107 [facility] Comment on above: Performed By: #### PTT, PT #### [facility] [address] [place] [address] Dr. Artem Rojas CO2 [Moles/Vol] 29.3 mmol/L Normal 21.0-32.0 [facility] Comment on above: Performed By: #### PTT, PT #### [facility] [address] [place] [address] Dr. Artem Rojas Creatinine [Mass/Vol] 1.06 mg/dL Normal 0.70-1.30 [facility] Comment on above: Performed By: #### PTT, PT #### [facility] [address] [place] [address] Dr. Artem Rojas EGFR-AF CUBAN >60 Normal >=60 [facility] Comment on above: Performed By: #### PTT, PT #### [facility] [address] [place] [address] Dr. Artem Rojas EGFR-NON AF CUBAN >60 Normal >=60 [facility] Comment on above: Performed By: #### PTT, PT #### [facility] [address] [place] [address] Dr. Artem Rojas Glucose [Mass/Vol] 125 mg/dL Critically high 74-106 [facility] Comment on above: Performed By: #### PTT, PT #### [facility] [address] [address] [address] Artem Rojas Potassium [Moles/Vol] 4.3 mmol/L Normal 3.5-5.1 [facility] Comment on above: Performed By: #### PTT, PT #### [facility] [address] [place], [place] [address] Dr. Artem Rojas Sodium [Moles/Vol] 139 mmol/L Normal 136-145 [facility] Comment on above: Performed By: #### PTT, PT #### [facility] [address] [address] [address] Artem Rojas Urea nitrogen [Mass/Vol] 20.0 mg/dL Critically high 7.0-18.0 [facility] Comment on above: Performed By: #### PTT, PT #### [facility] [address] [address] [address] Artem Rojas Urea nitrogen/Creatin ine [Mass ratio] 18.9 mg/mg Normal [facility] Comment on above: Performed By: #### PTT, PT #### [facility] [address] [address] [address] Artem Rojas Orders Onlyon 08-25-2022 Orders Only [id number] Jordin Landry Jr. 1940 Date Provider Department Center 08/25/2022 TROY RIBERA [facility] Family History Problem Relation Age of Onset Cancer Mother Family Status - Relation Status Age at Mother Normal [facility] Covid-19 PCR (CVDTB)on SARS-CoV-2 (COVID-19) RNA MONICA+probe Ql (Unsp spec) Not detected Normal NOT DETECTED [facility] Comment on above: Result Comment: When [...] for this test is supported by the [place] Superintendent of Health and Human Service's declaration that [...] Performed By: #### P TT, PT #### [facility] [address] [place] [address] Dr. Artem Rojas INFLUENZA A AND B AGon 08-20 INFLUANEGH SEE BELOW Normal [facility] Comment on above: Result Comment: Negative for Flu A prote in angiten. Infection due to Flu A cannot be ruled out. Flu A angiten in the sample may be below the detection limit of the test. Performed By: #### P TT, PT #### [facility] [address] [place] [address] Dr. Artem Rojas INFLUBNEGH SEE BELOW Normal [facility] Comment on above: Result Comment: Negative for Flu B prote in antigen. Infection due to Flu B cannot be ruled out. Flu B antigen in the sample may be below the detection limit of the test. Performed By: #### P TT, PT #### [facility] [address] [place] [address] Dr. Artem Rojas INFLUENZA A AG Negative Normal NEGATIVE SEE COMMENT [facility] Comment on above: Performed By: #### PTT, PT #### [facility] [address] [place] [address] Dr. Artem Rojas INFLUENZA B AG Negative Normal NEGATIVE SEE COMMENT [facility] Comment on above: Performed By: #### PTT, PT #### [facility] [address] [place] [address] Dr. Artem Rojas INSULINon 07-31-2022 Insulin 16.3 uIU/mL Normal 2.6-24.9 [facility] Comment on above: Performed By: #### PTT, PT #### [facility] [address] [place] [address] Dr. Artem Rojas BNPon 07-30-2022 Natriuretic peptide B (Bld) [Mass/Vol] 1826.0 pg/mL Critically high <=1,800.0 [facility] Comment on above: Performed By: #### CMP, BNP, URIC, TSH, T7, LIPID #### [facility] [address] [place] [address] Dr. Artem Rojas CBC AUTO DIFFon 07-30-2022 BASO # 0.1 103/ul Normal 0.0-0.1 [facility] Comment on above: Performed By: #### PTT, PT #### [facility] [address] [place] [address] Dr. Artem Rojas Basophils/100 WBC (Bld) 1.0 % Normal 0.2-2.0 [facility] Comment on above: Performed By: #### PTT, PT #### [facility] [address] [place] [address] Dr. Artem Rojas EO # 0.2 103/ul Normal 0.0-0.7 [facility] Comment on above: Performed By: #### PTT, PT #### [facility] [address] [place] [address] Dr. Artem Rojas Eosinophils/100 WBC (Bld) 2.4 % Normal 0.9-7.0 [facility] Comment on above: Performed By: #### PTT, PT #### [facility] [address] [place] [address] Dr. Artem Rojas Erythrocyte distribution width (RBC) [Ratio] 13.8 % Normal 11.0-15.0 [facility] Comment on above: Performed By: #### PTT, PT #### [facility] [address] [place] [address] Dr. Artem Rojas Hematocrit (Bld) [Volume fraction] 44.1 % Normal 42.0-54.0 [facility] Comment on above: Performed By: #### PTT, PT #### [facility] [address] [place] [address] Dr. Artem Rojas Hemoglobin (Bld) [Mass/Vol] 14.5 g/dL Normal 14.0-18.0 [facility] Comment on above: Performed By: #### PTT, PT #### [facility] [address] [place] [address] Dr. Artem Rojas IG # 0.02 10e3/ul Normal 0.00-0.03 [facility] Comment on above: Performed By: #### PTT, PT #### [facility] [address] [place] [address] Dr. Artem Rojas IG % 0.2 % Normal 0.0-0.5 [facility] Comment on above: Performed By: #### PTT, PT #### [facility] [address] [place] [address] Dr. Artem Rojas LYMPH # 2.1 103/ul Normal 1.2-3.8 [facility] Comment on above: Performed By: #### PTT, PT #### [facility] [address] [place] [address] Dr. Artem Rojas Lymphocytes/100 WBC (Bld) 24.3 % Normal 20.5-60.0 [facility] Comment on above: Performed By: #### PTT, PT #### [facility] [address] [place] [address] Dr. Artem Rojas MANUAL DIFF REQ NO Normal [facility] Comment on above: Performed By: #### PTT, PT #### [facility] [address] [place] [address] Dr. Artem Rojas MCH (RBC) [Entitic mass] 30.3 pg Normal 25.9-34.0 [facility] Comment on above: Performed By: #### PTT, PT #### [facility] [address] [place] [address] Dr. Artem Rojas MCHC (RBC) [Mass/Vol] 32.9 g/dL Normal 29.9-35.2 [facility] Comment on above: Performed By: #### PTT, PT #### [facility] [address] [place] [address] Dr. Artem Rojas MCV (RBC) [Entitic vol] 92.1 fL Normal 80.0-94.0 [facility] Comment on above: Performed By: #### PTT, PT #### [facility] [address] [place] [address] Dr. Artem Rojas MONO # 0.8 103/ul Normal 0.3-0.8 [facility] Comment on above: Performed By: #### PTT, PT #### [facility] [address] [place] [address] Dr. Artem Rojas Monocytes/100 WBC (Bld) 9.0 % Normal 1.7-12.0 [facility] Comment on above: Performed By: #### PTT, PT #### [facility] [address] [place] [address] Dr. Artem Rojas NEUT # 5.6 103/ul Normal 1.4-6.5 [facility] Comment on above: Performed By: #### PTT, PT #### [facility] [address] [place] [address] Dr. Artem Rojas Neutrophils/100 WBC (Bld) 63.1 % Normal 43.0-75.0 [facility] Comment on above: Performed By: #### PTT, PT #### [facility] [address] [place] [address] Dr. Artem Rojas Platelet mean volume (Bld) [Entitic vol] 10.0 fL Normal 9.5-13.5 [facility] Comment on above: Performed By: #### PTT, PT #### [facility] [address] [place] [address] Dr. Artem Rojas PLT 193 103/ul Normal 150-450 [facility] Comment on above: Performed By: #### PTT, PT #### [facility] [address] [place] [address] Dr. Artem Rojas RBC 4.79 106/ul Normal 4.70-6.10 [facility] Comment on above: Performed By: #### PTT, PT #### [facility] [address] [place] [address] Dr. Artem Rojas WBC 8.8 103/ul Normal 4.0-11.0 [facility] Comment on above: Performed By: #### PTT, PT #### [facility] [address] [place] [address] Dr. Artem Rojas FREE THYROXINE INDEX T7on FTI 2.52 Normal 1.30-4.50 [facility] Comment on above: Performed By: #### CMP, BNP, URIC, TSH, T7, LIPID #### [facility] [address] [place] [address] Dr. Artem Rojas T3U 35.0 % Normal 33.0-40.0 [facility] Comment on above: Performed By: #### CMP, BNP, URIC, TSH, T7, LIPID #### [facility] [address] [place] [address] Dr. Artem Rojas T4 [Mass/Vol] 7.20 ug/dL Normal 4.50-12.10 [facility] Comment on above: Performed By: #### CMP, BNP, URIC, TSH, T7, LIPID #### [facility] [address] [place] [address] Dr. Artem Rojas GLYCOHEMOGLOBIN A1Con 2022 ADA RECOMMENDATION SEE BELOW Normal [facility] Comment on above: Result Comment: ADA RECOMMENDED LIMIT 4. 0 - 6.0 ADA THERAPEUTIC TARGET < 7.0 ACTION SUGGESTED > 7.0 Performed By: #### A 1C #### [facility] [address] [place] [address] Dr. Artem Rojas Glucose [Mass/Vol] 128 mg/dL Normal [facility] Comment on above: Performed By: #### A1C #### [facility] [address] [place] [address] Dr. Artem Rojas HbA1c (Bld) [Mass fraction] 6.1 % Normal 4.5-6.2 [facility] Comment on above: Performed By: #### A1C #### [facility] [address] [place] [address] Dr. Artem Rojas LIPID PROFILEon 07-30-2022 CHOL-HDL RATIO NORM SEE BELOW Normal [facility] Comment on above: Result Comment: 3.3 - 4.4 LOW RISK 4.4 - 7.1 AVERAGE RISK 7.1 - 11.0 MODERATE RISK >11.0 HIGH RISK Performed By: #### C MP, BNP, URIC, TSH, T7, LIPID #### [facility] [address] [address] [address] Artem Rojas Cholesterol [Mass/Vol] 157 mg/dL Normal <=200 [facility] Comment on above: Performed By: #### CMP, BNP, URIC, TSH, T7, LIPID #### [facility] [address] [address] [address] Artem Rojas Cholesterol in HDL [Mass/Vol] 51 mg/dL Normal 40-60 [facility] Comment on above: Performed By: #### CMP, BNP, URIC, TSH, T7, LIPID #### [facility] [address] [address] [address] Artem Rojas Cholesterol in LDL [Mass/Vol] 86.6 mg/dL Normal [facility] Comment on above: Performed By: #### CMP, BNP, URIC, TSH, T7, LIPID #### [facility] [address] [address] [address] Artem Rojas Cholesterol.tota l/Cholesterol in HDL [Mass ratio] 3.1 {ratio} Normal [facility] Comment on above: Performed By: #### CMP, BNP, URIC, TSH, T7, LIPID #### [facility] [address] [address] [address] Artem Rojas HDL NORMAL > or = 60 mg/dl - LO W CARDIOVASCULAR RISK <40 mg/dl - HIGH CARDIOVASCULAR RISK Normal [facility] Comment on above: Performed By: #### CMP, BNP, URIC, TSH, T7, LIPID #### [facility] [address] [place] [address] Dr. Artem Rojas LDL CALC NORMAL SEE BELOW Normal [facility] Comment on above: Result Comment: <100 mg/dl OPTIMAL 100 - 129 mg/dl NEAR OR ABOVE OPTIMAL 130 - 159 mg/dl BORDERLINE HIGH 160 - 189 mg/dl HIGH >190 mg/dl VERY HIGH Performed By: #### C MP, BNP, URIC, TSH, T7, LIPID #### [facility] [address] [address] [address] Aretm Rojas Triglyceride [Mass/Vol] 97 mg/dL Normal <=150 [facility] Comment on above: Performed By: #### CMP, BNP, URIC, TSH, T7, LIPID #### [facility] [address] [place] [address] Dr. Artem Rojas VLDL CALC 19.4 mg/dL Normal [facility] Comment on above: Performed By: #### CMP, BNP, URIC, TSH, T7, LIPID #### [facility] [address] [place] [address] Dr. Artem Rojas PROF 14(COMP METB)on 023 Albumin [Mass/Vol] 3.5 g/dL Normal 3.4-5.0 [facility] Comment on above: Performed By: #### CMP, BNP, URIC, TSH, T7, LIPID #### [facility] [address] [place] [address] Dr. Artem Rojas Albumin/Globulin [Mass ratio] 1.1 {ratio} Normal [facility] Comment on above: Performed By: #### CMP, BNP, URIC, TSH, T7, LIPID #### [facility] [address] [place] [address] Dr. Artem Rojas ALP [Catalytic activity/Vol] 70 U/L Normal 46-116 [facility] Comment on above: Performed By: #### CMP, BNP, URIC, TSH, T7, LIPID #### [facility] [address] [place] [address] Dr. Artem Rojas ALT [Catalytic activity/Vol] 19 U/L Normal 16-63 [facility] Comment on above: Performed By: #### CMP, BNP, URIC, TSH, T7, LIPID #### [facility] [address] [place] [address] Dr. Artem Rojas Anion gap [Moles/Vol] 11.7 mmol/L Normal [facility] Comment on above: Performed By: #### CMP, BNP, URIC, TSH, T7, LIPID #### [facility] [address] [place] [address] Dr. Artem Rojas AST [Catalytic activity/Vol] 18 U/L Normal 15-37 [facility] Comment on above: Performed By: #### CMP, BNP, URIC, TSH, T7, LIPID #### [facility] [address] [place] [address] Dr. Artem Rojas Bilirubin [Mass/Vol] 0.5 mg/dL Normal 0.2-1.0 [facility] Comment on above: Performed By: #### CMP, BNP, URIC, TSH, T7, LIPID #### [facility] [address] [place] [address] Dr. Artem Rojas Calcium [Mass/Vol] 9.3 mg/dL Normal 8.5-10.1 [facility] Comment on above: Performed By: #### CMP, BNP, URIC, TSH, T7, LIPID #### [facility] [address] [place] [address] Dr. Artem Rojas Chloride [Moles/Vol] 105 mmol/L Normal 98-107 [facility] Comment on above: Performed By: #### CMP, BNP, URIC, TSH, T7, LIPID #### [facility] [address] [place] [address] Dr. Artem Rojas CO2 [Moles/Vol] 29.7 mmol/L Normal 21.0-32.0 [facility] Comment on above: Performed By: #### CMP, BNP, URIC, TSH, T7, LIPID #### [facility] [address] [place] [address] Dr. Artem Rojas Creatinine [Mass/Vol] 0.87 mg/dL Normal 0.70-1.30 [facility] Comment on above: Performed By: #### CMP, BNP, URIC, TSH, T7, LIPID #### [facility] [address] [place] [address] Dr. Artem Rojas EGFR-AF CUBAN >60 Normal >=60 [facility] Comment on above: Performed By: #### CMP, BNP, URIC, TSH, T7, LIPID #### [facility] [address] [place] [address] Dr. Artem Rojas EGFR-NON AF CUBAN >60 Normal >=60 [facility] Comment on above: Performed By: #### CMP, BNP, URIC, TSH, T7, LIPID #### [facility] [address] [address] [address] Artem Rojas Globulin (S) [Mass/Vol] 3.3 g/dL Normal [facility] Comment on above: Performed By: #### CMP, BNP, URIC, TSH, T7, LIPID #### [facility] [address] [place] [address] Dr. Artem Rojas Glucose [Mass/Vol] 118 mg/dL Critically high 74-106 [facility] Comment on above: Performed By: #### CMP, BNP, URIC, TSH, T7, LIPID #### [facility] [address] [place] [address] Dr. Artem Rojas Potassium [Moles/Vol] 4.4 mmol/L Normal 3.5-5.1 [facility] Comment on above: Performed By: #### CMP, BNP, URIC, TSH, T7, LIPID #### [facility] [address] [place] [address] Dr. Artem Rojas Protein [Mass/Vol] 6.8 g/dL Normal 6.4-8.2 [facility] Comment on above: Performed By: #### CMP, BNP, URIC, TSH, T7, LIPID #### [facility] [address] [place] [address] Dr. Artem Rojas Sodium [Moles/Vol] 142 mmol/L Normal 136-145 [facility] Comment on above: Performed By: #### CMP, BNP, URIC, TSH, T7, LIPID #### [facility] [address] [place] [address] Dr. Artem Rojas Urea nitrogen [Mass/Vol] 19.0 mg/dL Critically high 7.0-18.0 [facility] Comment on above: Performed By: #### CMP, BNP, URIC, TSH, T7, LIPID #### [facility] [address] [place] [address] Dr. Artem Rojas Urea nitrogen/Creatin ine [Mass ratio] 21.8 mg/mg Normal [facility] Comment on above: Performed By: #### CMP, BNP, URIC, TSH, T7, LIPID #### [facility] [address] [place] [address] Dr. Artem Rojas TSHon 07-30-2022 TSH 1.773 uIU/mL Normal 0.358-3.740 [facility] Comment on above: Performed By: #### CMP, BNP, URIC, TSH, T7, LIPID #### [facility] [address] [place] [address] Dr. Artem Rojas URIC ACID SERUMon 07-30-2022 Urate [Mass/Vol] 5.8 mg/dL Normal 3.5-7.2 [facility] Comment on above: Performed By: #### CMP, BNP, URIC, TSH, T7, LIPID #### [facility] [address] [place] [address] Dr. Artem Rojas VITAMIN D 25 OHon 07-30-2022 VIT D 25-OH 65.5 ng/mL Normal [facility] Comment on above: Performed By: #### PTT, PT #### [facility] [address] [place] [address] Dr. Artem Rojas VIT D RANGES SEE BELOW Normal [facility] Comment on above: Result Comment: <20 ng/mL Vit D deficien t 20 - <30 ng/mL Vit D insufficient 30 - 100 ng/mL Vit D sufficient >100 ng/mL Potential Toxicity Performed By: #### P TT, PT #### [facility] [address] [place] [address] Dr. Artem Rojas CBC AUTO DIFFon 03-02-2022 BASO # 0.1 103/ul Normal 0.0-0.1 [facility] Comment on above: Performed By: #### PTT, PT #### [facility] [address] [place] [address] Dr. Artem Rojas Basophils/100 WBC (Bld) 0.5 % Normal 0.2-2.0 [facility] Comment on above: Performed By: #### PTT, PT #### [facility] [address] [place] [address] Dr. Artem Rojas EO # 0.0 103/ul Normal 0.0-0.7 [facility] Comment on above: Performed By: #### PTT, PT #### [facility] [address] [place] [address] Dr. Artem Rojas Eosinophils/100 WBC (Bld) 0.1 % Critically low 0.9-7.0 [facility] Comment on above: Performed By: #### PTT, PT #### [facility] [address] [place] [address] Dr. Artem Rojas Erythrocyte distribution width (RBC) [Ratio] 12.9 % Normal 11.0-15.0 [facility] Comment on above: Performed By: #### PTT, PT #### [facility] [address] [place] [address] Dr. Artem Rojas Hematocrit (Bld) [Volume fraction] 39.7 % Critically low 42.0-54.0 [facility] Comment on above: Performed By: #### PTT, PT #### [facility] [address] [place] [address] Dr. Artem Rojas Hemoglobin (Bld) [Mass/Vol] 13.1 g/dL Critically low 14.0-18.0 [facility] Comment on above: Performed By: #### PTT, PT #### [facility] [address] [place] [address] Dr. Artem Rojas IG # 0.05 10e3/ul Critically high 0.00-0.03 [facility] Comment on above: Performed By: #### PTT, PT #### [facility] [address] [place] [address] Dr. Artem Rojas IG % 0.4 % Normal 0.0-0.5 [facility] Comment on above: Performed By: #### PTT, PT #### [facility] [address] [place] [address] Dr. Artem Rojas LYMPH # 0.8 103/ul Critically low 1.2-3.8 [facility] Comment on above: Performed By: #### PTT, PT #### [facility] [address] [place] [address] Dr. Artem Rojas Lymphocytes/100 WBC (Bld) 5.7 % Critically low 20.5-60.0 [facility] Comment on above: Performed By: #### PTT, PT #### [facility] [address] [place] [address] Dr. Artem Rojas MANUAL DIFF REQ NO Normal [facility] Comment on above: Performed By: #### PTT, PT #### [facility] [address] [place] [address] Dr. Artem Rojas MCH (RBC) [Entitic mass] 31.5 pg Normal 25.9-34.0 [facility] Comment on above: Performed By: #### PTT, PT #### [facility] [address] [place] [address] Dr. Artem Rojas MCHC (RBC) [Mass/Vol] 33.0 g/dL Normal 29.9-35.2 [facility] Comment on above: Performed By: #### PTT, PT #### [facility] [address] [place] [address] Dr. Artem Rojas MCV (RBC) [Entitic vol] 95.4 fL Critically high 80.0-94.0 [facility] Comment on above: Performed By: #### PTT, PT #### [facility] [address] [place] [address] Dr. Artem Rojas MONO # 1.0 103/ul Critically high 0.3-0.8 [facility] Comment on above: Performed By: #### PTT, PT #### [facility] [address] [place] [address] Dr. Artem Rojas Monocytes/100 WBC (Bld) 7.4 % Normal 1.7-12.0 [facility] Comment on above: Performed By: #### PTT, PT #### [facility] [address] [place] [address] Dr. Artem Rojas NEUT # 11.4 103/ul Critically high 1.4-6.5 [facility] Comment on above: Performed By: #### PTT, PT #### [facility] [address] [place] [address] Dr. Artem Rojas Neutrophils/100 WBC (Bld) 85.9 % Critically high 43.0-75.0 [facility] Comment on above: Performed By: #### PTT, PT #### [facility] [address] [place], [place] [address] Dr. Artem Rojas Platelet mean volume (Bld) [Entitic vol] 10.8 fL Normal 9.5-13.5 [facility] Comment on above: Performed By: #### PTT, PT #### [facility] [address] [place], [place] [address] Dr. Artem Rojas PLT 164 103/ul Normal 150-450 [facility] Comment on above: Performed By: #### PTT, PT #### [facility] [address] [place], [place] [address] Dr. Artem Rojas RBC 4.16 106/ul Critically low 4.70-6.10 [facility] Comment on above: Performed By: #### PTT, PT #### [facility] [address] [address] [address] Artem Rojas WBC 13.2 103/ul Critically high 4.0-11.0 [facility] Comment on above: Performed By: #### PTT, PT #### [facility] [address] [address] [address] CSPINE WO CONon [...] WILLIAM ARIAS Date: 2022-03-02 17:51 Normal [facility] CT HEAD WO CONon 03-02-2022 CT [...] NISSA VIGIL Date: 2022-03-02 17:40 Normal [facility] Covid-19 PCR (CVDTB)on 02-13 SARS-CoV-2 (COVID-19) RNA MONICA+probe Ql (Unsp spec) Not detected Normal NOT DETECTED [facility] Comment on above: Result Comment: When [...] for this test is supported by the [place] of [employer] and [employer] Service's declaration that [...] Performed By: #### P TT, PT #### [facility] [address] [place] [address] Dr. Artem oRjas GASTROCCULTon 03-02-2022 GASTROCCULT Positive Abnormal NEGATIVE [facility] Comment on above: Performed By: #### PTT, PT #### [facility] [address] [place] [address] Dr. Artem Rojas PH GASTRIC 2 Normal [facility] Comment on above: Performed By: #### PTT, PT #### [facility] [address] [place] [address] Dr. Artem Rojas PROF 14(COMP METB)on 022 Albumin [Mass/Vol] 3.6 g/dL Normal 3.4-5.0 [facility] Comment on above: Performed By: #### PTT, PT #### [facility] [address] [place] [address] Dr. Artem Rojas Albumin/Globulin [Mass ratio] 1.3 {ratio} Normal [facility] Comment on above: Performed By: #### PTT, PT #### [facility] [address] [place] [address] Dr. Artem Rojas ALP [Catalytic activity/Vol] 65 U/L Normal 46-116 [facility] Comment on above: Performed By: #### PTT, PT #### [facility] [address] [place] [address] Dr. Artem Rojas ALT [Catalytic activity/Vol] 12 U/L Critically low 16-63 [facility] Comment on above: Performed By: #### PTT, PT #### [facility] [address] [place] [address] Dr. Artem Rojas Anion gap [Moles/Vol] 12.8 mmol/L Normal [facility] Comment on above: Performed By: #### PTT, PT #### [facility] [address] [address] [address] Artem Rojas AST [Catalytic activity/Vol] 15 U/L Normal 15-37 [facility] Comment on above: Performed By: #### PTT, PT #### [facility] [address] [place] [address] Dr. Artem Rojas Bilirubin [Mass/Vol] 1.1 mg/dL Critically high 0.2-1.0 [facility] Comment on above: Performed By: #### PTT, PT #### [facility] [address] [place] [address] Dr. Artem Rojas Calcium [Mass/Vol] 9.0 mg/dL Normal 8.5-10.1 [facility] Comment on above: Performed By: #### PTT, PT #### [facility] [address] [place] [address] Dr. Artem Rojas Chloride [Moles/Vol] 104 mmol/L Normal 98-107 [facility] Comment on above: Performed By: #### PTT, PT #### [facility] [address] [place] [address] Dr. Artem Rojas CO2 [Moles/Vol] 25.8 mmol/L Normal 21.0-32.0 [facility] Comment on above: Performed By: #### PTT, PT #### [facility] [address] [place] [address] Dr. Artem Rojas Creatinine [Mass/Vol] 1.06 mg/dL Normal 0.70-1.30 [facility] Comment on above: Performed By: #### PTT, PT #### [facility] [address] [address] [address] Artem Rojas EGFR-AF CUBAN >60 Normal >=60 [facility] Comment on above: Performed By: #### PTT, PT #### [facility] [address] [address] [address] Artem Rojas EGFR-NON AF CUBAN >60 Normal >=60 [facility] Comment on above: Performed By: #### PTT, PT #### [facility] [address] [address] [address] Artem Rojas Globulin (S) [Mass/Vol] 2.8 g/dL Normal [facility] Comment on above: Performed By: #### PTT, PT #### [facility] [address] [place] [address] Dr. Artem Rojas Glucose [Mass/Vol] 104 mg/dL Normal 74-106 [facility] Comment on above: Performed By: #### PTT, PT #### [facility] [address] [place] [address] Dr. Artem Rojas Potassium [Moles/Vol] 4.6 mmol/L Normal 3.5-5.1 [facility] Comment on above: Performed By: #### PTT, PT #### [facility] [address] [place] [address] Dr. Artem Rojas Protein [Mass/Vol] 6.4 g/dL Normal 6.4-8.2 [facility] Comment on above: Performed By: #### PTT, PT #### [facility] [address] [place] [address] Dr. Artem Rojas Sodium [Moles/Vol] 138 mmol/L Normal 136-145 [facility] Comment on above: Performed By: #### PTT, PT #### [facility] [address] [place] [address] Dr. Artem Rojas Urea nitrogen [Mass/Vol] 13.0 mg/dL Normal 7.0-18.0 [facility] Comment on above: Performed By: #### PTT, PT #### [facility] [address] [place] [address] Dr. Artem Rojas Urea nitrogen/Creatin ine [Mass ratio] 12.3 mg/mg Normal [facility] Comment on above: Performed By: #### PTT, PT #### [facility] [address] [place] [address] Dr. Artem Rojas PROTIMEon 03-02-2022 INR Coag (PPP) [Relative time] 1.23 {INR} Normal [facility] Comment on above: Performed By: #### PTT, PT #### [facility] [address] [place] [address] Dr. Artem Rojas INR GUIDELINES SEE BELOW Normal [facility] Comment on above: Result Comment: DESIRED INR: 2.0 - 3.0 C ONDITIONS NOT LISTED BELOW 2.5 - 3.5 FOR PROSTHETIC HEART VALVE REPLACEMENT 2.5 - 3.5 RECURRENT THROMBOSIS Performed By: #### P TT, PT #### [facility] [address] [place] [address] Dr. Artem Rojas PT Coag (PPP) [Time] 13.1 s Critically high 9.0-11.6 [facility] Comment on above: Performed By: #### PTT, PT #### [facility] [address] [place] [address] Dr. Artem Rojas PTTon 03-02-2022 aPTT Coag (Bld) [Time] 28.5 s Normal 22.3-36.2 [facility] Comment on above: Performed By: #### PTT, PT #### [facility] [address] [place] [address] Dr. Artem Rojas XR KNEE RT 1_2 [...] MATTHEW CHADWICK Date: 2022-03-02 20:49 Normal [facility] OVA AND PARASITE EXAMINATION on 01-18-2022 Ova + Parasite Exam Final report Normal [facility] Comment on above: Result Comment: These results were obtai ricardo using wet preparation(s) and trichrome stained smear. This test does not include testing for Cryptosporidium parvum, Cyclospora, or Microsporidia. Performed By: #### P TT, PT #### [facility] [address] [place] [address] Dr. Artem Rojas Result 1 Comment Normal [facility] Comment on above: Result Comment: No ova, cysts, or parasi alise seen. . One negative specimen does not rule out the possibility of a parasitic infection. Performed By: #### P TT, PT #### [facility] [address] [place] [address] Dr. Artem Rojas GI PANEL (PCR)on 01-14-2022 Adenovirus F 40/41 Not detected Normal NOT DETECTED [facility] Comment on above: Performed By: #### PTT, PT #### [facility] [address] [place] [address] Dr. Artem Rojas Astrovirus Not detected Normal NOT DETECTED [facility] Comment on above: Performed By: #### PTT, PT #### [facility] [address] [place] [address] Dr. Artem Rojas C. Diff toxin A/B Not detected Normal NOT DETECTED [facility] Comment on above: Performed By: #### PTT, PT #### [facility] [address] [place] [address] Dr. Artem Rojas Campylobacter Not detected Normal NOT DETECTED [facility] Comment on above: Performed By: #### PTT, PT #### [facility] [address] [place] [address] Dr. Artem Rojas Cryptosporidium Not detected Normal NOT DETECTED [facility] Comment on above: Performed By: #### PTT, PT #### [facility] [address] [place] [address] Dr. Artem Rojas Cyclos. Cayetanensis Not detected Normal NOT DETECTED [facility] Comment on above: Performed By: #### PTT, PT #### [facility] [address] [place] [address] Dr. Artem Rojas E. Coli O157 Not Applicable Normal Not Applicable [facility] Comment on above: Performed By: #### PTT, PT #### [facility] [address] [place] [address] Dr. Artem Rojas E. histolytica Not detected Normal NOT DETECTED [facility] Comment on above: Performed By: #### PTT, PT #### [facility] [address] [place] [address] Dr. Artem Rojas EAEC Not detected Normal NOT DETECTED [facility] Comment on above: Performed By: #### PTT, PT #### [facility] [address] [place] [address] Dr. Artem Rojas EIEC Not detected Normal NOT DETECTED [facility] Comment on above: Performed By: #### PTT, PT #### [facility] [address] [place] [address] Dr. Artem Rojas EPEC Not detected Normal NOT DETECTED [facility] Comment on above: Performed By: #### PTT, PT #### [facility] [address] [place] [address] Dr. Artem Rojas ETEC Not detected Normal NOT DETECTED [facility] Comment on above: Performed By: #### PTT, PT #### [facility] [address] [place] [address] Dr. Artem Rojas G. Lamblia Not detected Normal NOT DETECTED [facility] Comment on above: Performed By: #### PTT, PT #### [facility] [address] [place] [address] Dr. Artem TSE CONTROLS PASSED Normal [facility] Comment on above: Performed By: #### PTT, PT #### [facility] [address] [place] [address] Dr. Artem ROWENL TIA HEADER GI PANEL BACTERIA Normal [facility] Comment on above: Performed By: #### PTT, PT #### [facility] [address] [address] [address] Artem ARELLANO ECOLI GI PANEL DIARRHEAGEN IC E.COLI / SHIGELLA Normal [facility] Comment on above: Performed By: #### PTT, PT #### [facility] [address] [place] [address] Dr. Artem ARELLANO INFO SEE BELOW Normal [facility] Comment on above: Result Comment: EAEC- Enteroaggregative E. Coli EPEC- Enteropathogenic E. Coli ETEC- Enterotoxigenic E. Coli lt/st STEC- Shigella-like toxin-producing E. Coli stx1/stx2 EIEC- Shigella/Enteroinvasive E. Coli Performed By: #### P TT, PT #### [facility] [address] [place] [address] Dr. Artem ARELLANO PARASITES GI PANEL PARASITES Normal [facility] Comment on above: Performed By: #### PTT, PT #### [facility] [address] [place] [address] Dr. Artem ARELLANO VIRUS GI PANEL VIRUSES Normal [facility] Comment on above: Performed By: #### PTT, PT #### [facility] [address] [place] [address] Dr. Artem Rojas Norovirus GI/GII Not detected Normal NOT DETECTED [facility] Comment on above: Performed By: #### PTT, PT #### [facility] [address] [place] [address] Dr. Artem Rojas P. Shigelloides Not detected Normal NOT DETECTED [facility] Comment on above: Performed By: #### PTT, PT #### [facility] [address] [address] [address] Artem Rojas Rotavirus A Not detected Normal NOT DETECTED [facility] Comment on above: Performed By: #### PTT, PT #### [facility] [address] [place] [address] Dr. Artem Rojas Salmonella Not detected Normal NOT DETECTED [facility] Comment on above: Performed By: #### PTT, PT #### [facility] [address] [place] [address] Dr. Artem Rojas Sapovirus Not detected Normal NOT DETECTED [facility] Comment on above: Performed By: #### PTT, PT #### [facility] [address] [place] [address] Dr. Artem Rojas STEC Not detected Normal NOT DETECTED [facility] Comment on above: Performed By: #### PTT, PT #### [facility] [address] [address] [address] Artem Rojas Vibrio Not detected Normal NOT DETECTED [facility] Comment on above: Performed By: #### PTT, PT #### [facility] [address] [place] [address] Dr. Artem Rojas Vibrio Cholera Not detected Normal NOT DETECTED [facility] Comment on above: Performed By: #### PTT, PT #### [facility] [address] [place] [address] Dr. Artem Rojas Y. Enterocolitica Not detected Normal NOT DETECTED [facility] Comment on above: Performed By: #### PTT, PT #### [facility] [address] [place] [address] Dr. Artem Rojas Consultation Noteon 06-03-20 Consultation Note [id number]:127 Normal [facility] RAD - MISCon 06-03-2021 RAD - MISC [id number]#[id number]:127 Normal [facility] Glucose Poct Glucometerson 0 01-10-2021 Glucose [Mass/Vol] 108 mg/dL Normal [facility] Comment on above: Result Comment: Random Glucose Reference Range is dependent on time and content of last meal. Glucose of more than 200 mg/dL in a nonstressed, ambulatory subject supports the diagnosis of Diabetes Mellitus. PERFORMED BY: [facility] [facility] [place] [address] PATHOLOGIST STATION TENDER SARY APARICIO M.D. Performed By: #### G SAMMIE #### Point of Care testing , [place] 01-10-2021 L Specimen: [id number] Received: 01/10/21 Status: WILFREDO Mckeon Num: [id number] Spec Type: Surgical Subm Dr: Shane Snell MD Tissues: A Colon - Polyp (CECUM) B Colon - Polyp (SIGMOID) Procedures: HE Stain/4, Gross/Micro L4/2 Patient Age/Sex Location Account Attending Physician Desean Landry JR 80/[facility] [id number] Shane Snell MD SPEC NUM: [id number] RECD: 01/10/21 STATUS: WILFREDO MCKEON NUM: [id number] MICAH: 01/10/21 DR: Shane Snell MD ENTERED: 01/10/21 [facility] DR: SPEC TYPE: Surgical DEPT: S [facility] BY: [id number] ORDERED: HE Stain/4, Gross/Micro L4/2 ORDERED: HE [...] findings support the above pathologic diagnosis. Specimen: [id number] Received: 01/10/21 Status: WILFREDO Mckeon Num: [id number] Spec Type: Surgical Subm Dr: Shane Snell MD Tissues: A Colon - Polyp (CECUM) B Colon - Polyp (SIGMOID) Procedures: HE Stain/4, Gross/Micro L4/2 Patient: Desean aLndry JR [id number] (Continued) Specimen: [id number] Received: 01/10/21 (Continued) Signed (signature on file) Randi Ji MD 01/11/21 1809 Specimen: [id number] Received: 01/10/21 Status: WILFREDO Mckeon Num: [id number] Spec Type: Surgical Subm Dr: Shane Snell MD Tissues: A Colon - Polyp (CECUM) B Colon - Polyp (SIGMOID) Procedures: HE Stain/4, Gross/Micro L4/2 Patient: Desean Landry JR [id number] (Continued) Specimen: [id number] Received: 01/10/21 (Continued) CPT Codes 68176?2 Specimen: Received: 01/10/21 Status: WILFREDO Mckeon Num: [id number] Spec Type: Surgical Subm Dr: Shane Snell MD Tissues: A Colon - Polyp (CECUM) B Colon - Polyp (SIGMOID) Procedures: JUDIE Stain/4, Gross/Micro L4/2 Patient: Desean Landry JR [id number] (Continued) Signed (signature on file) Randi Ji MD 01/11/21 1809 [facility] CNCOon 04-13-2018 CNCO Letter TextOctober 2017Samuaddison [address] [place], [place] [address]LCII: Rocky Landry NO.: [id number] OF SERVICE: 04/06/2018Dept. of Pulmonary and Critical Care MedicineDear Mr. Landry,Attached please find a copy of your CAT scan chest report from March.Please contact me if I can contribute further in your health care management.Best regards.Yours sincerely,Cesar Rowley M.D., F.C.C.P.HC:Enclosure Normal [facility] CT CHEST WO IVCONon 04-06-[address] CHEST WO IVCON * * *Final Report* * *DATE OF EXAM: Apr 06 2018 12:50PM [facility] [place] 0541 - CT CHEST WO IVCON / [...] any questions regarding this interpretation, please call [phone].If you are unable to reach us at the number above,please feel free to contact [facility] eRadiology at [phone] ACN Normal [facility] PROGRESSon 04-06-2018 Protein mass conc HNO ID: [id number]: Venita Lr: (none)Author Type: (none)Type: Progress NotesFiled: 04/06/2018 12:57 PMNote Text: Radiology Service Progress NotePATIENT NAME: Desean LandryMRN: [id number] OF SERVICE: April 06, 2018TIME: 12:28 PMPATIENT IDENTITY VERIFICATION COMPLETED USING TWO (2) METHODS: Patientconfirmed name verbally and ID band matches..PATIENT GENDER DATA: MalePATIENT RELEVANT IMPLANT DATA REVIEWED: Not ApplicableRADIOLOGY DEPARTMENT: CT; Exam(s) Completed: ChestPERIPHERAL IV DATA: Not applicableSIGNED BY: Venita Lee 2017 12:28 PM Normal [facility] CNOVon 09-10-2017 CNOV Office Visit (PULMMN) SA SHAILA LANDRY ([id number]) 1940 MDate Time Provider Department09/10/17 9:55 AM CESAR ROWLEY During your visit today, we recorded the following information about you: Temperature Pulse Respiration Blood pressure 97.7 degrees 75/minute 18/minute 125/68 Weight Height 90.3 kg 1.753 Ritika Rowley MD 09/10/2017 12:26 PM SignedPULMONARY CLINICPATIENT NAME: Desean LandryMRN: [id number] CARE PHYSICIAN: Diogenes Casiano [facility]munication will be sent via [place] mail or [...] No ronchi. No ralesCARDIAC: normal S1 and F5RTCDDBH: Abdomen soft.EXTREMETIES: No deformities. No LE edema. [...] [J98.11] Pleural calcification [J94.8]Order(s):CT CHEST WO IVCON [[id number]] Order #: [id number] FUTUREProblem List As Of Date: 09/10/2017(None)Disposition: Return in about 6 months (around 03/13/2018).Follow-up and Disposition History RecordedEncounter Number: [id number] Status:Closed by CESAR ROWLEY MD on 09/10/17 [facility] CT CHEST WO IVCONon 09-11-19 CT CHEST WO IVCON * * *Final Report* * *DATE OF EXAM: Sep 10 2017 9:05AM [facility] 0541 - CT CHEST WO IVCON / [...] 6 mm. Three-month imaging follow-up suggested for reevaluation.Nurse Staff [facility]: AMILCAR Transcribe Date/Time: Sep 10 2017 9:58ADictated by : CHRISTY MULTANI MDThis examination was interpreted and the report reviewed and electronically signed by: CHRISTY MULTANI MD on Sep 10 2017 2:48PM [id number] Normal [facility] PROGRESSon 09-10-2017 Protein mass conc HNO ID: [id number]: Cesar Claudiae: (none)Author Type: PhysicianType: Progress NotesFiled: 09/10/2017 12:26 PMNote Text:PULMONARY CLINICPATIENT NAME: Desean LandryMRN: [id number] CARE PHYSICIAN: Diogenes Casiano [facility]ommunication will be sent via [place] mail or [...] wheezing. No ronchi. NoralesCARDIAC: normal S1 and V9DGQEPNE: Abdomen soft.EXTREMETIES: No deformities. No LE edema. [...] MedicineDATE: September 10, 2017TIME: 9:30 AM Normal [facility] Protein mass conc HNO ID: [id number]: Srinath Purcell CTS (Ct)ervice: RadiologyAuthor Type: Clinical TechnicianType: Progress NotesFiled: 09/10/2017 9:03 AMNote Text: Radiology Service Progress NotePATIENT NAME: Desean LandryMRN: [id number] OF SERVICE: September 10, 2017TIME: 9:03 AMPATIENT IDENTITY VERIFICATION COMPLETED USING TWO (2) METHODS: Patientconfirmed name verbally and ID band matches..PATIENT GENDER DATA: MalePATIENT RELEVANT IMPLANT DATA REVIEWED: YesRADIOLOGY DEPARTMENT: CT; Exam(s) Completed: ChestPERIPHERAL IV DATA: Not applicableSIGNED BY: Srinath MANINDER HeathRomanabrett 2017 9:03 AM Normal [facility] HISTORY PHYSICALon 8 HISTORY PHYSICAL HNO ID: [id number] thor: Cesar Jose: (none)Author Type: PhysicianType: HANDPFiled: 07/23/2017 5:35 PMNote Text:PULMONARY CONSULTPATIENT NAME: Desean LandryMRN: [id number] FOR CONSULT: Pleural effusionREQUESTING PHYSICIAN: Diogenes Casiano [facility] CARE PHYSICIAN: Diogenes Casiano [facility]AHommunication will be sent via [place] mail or shared electronic medicalrecordsHISTORY OF PRESENT ILLNESS: Mr. 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 Unable to make his own medical decision.He lives by himself but currently admitted at a SNF. He has a legalguardian Blacna Sofia phone # [phone].In June he was found on the floor [...] evaluation anddecided to pursue further evaluation at [facility].Since hospital discharge, he has been at a [...] MedicineDATE: July 23, 2017TIME: 12:12 PM Normal [facility] PROGRESSon 07-23-2017 Protein mass conc HNO ID: [id number]: Colleen Ceballos RtService: (none)Author Type: (none)Type: Progress NotesFiled: 07/23/2017 11:16 AMNote Text: Radiology Service Progress NotePATIENT NAME: Desean LandryMRN: [id number] OF SERVICE: July 23, 2017TIME: 11:16 AMPATIENT IDENTITY VERIFICATION COMPLETED USING TWO (2) METHODS: Patientconfirmed name verbally and Date of .PATIENT GENDER DATA: MalePATIENT RELEVANT IMPLANT DATA REVIEWED: Not ApplicableRADIOLOGY DEPARTMENT: General X-ray: Exam(s) Completed: Chest X-RayPERIPHERAL IV DATA: Not applicableSIGNED BY: Colleen Ceballos RtFebruary 2017 11:16 AM Normal [facility] XR CHEST 2V FRONTAL/LATon XR CHEST 2V [...] ARMENTA MD on Jul 23 2017 3:24PM [id number] Normal [facility] HOSPon 07-21-2017 HOSP Patient:Desean Landry MRN: Height:No [...] Radiology Service Progress NotePATIENT NAME: Desean LandryMRN: [id number] OF SERVICE: July 23, 2017TIME: 11:16 AMPATIENT IDENTITY VERIFICATION COMPLETED USING TWO (2) METHODS: Patientconfirmed name verbally and Date of .PATIENT GENDER DATA: MalePATIENT RELEVANT IMPLANT DATA REVIEWED: Not ApplicableRADIOLOGY DEPARTMENT: General X-ray: Exam(s) Completed: Chest X-RayPERIPHERAL IV DATA: Not applicableSIGNED BY: Colleen Ceballos RtFebruary 2017 11:16 AMProgress Notes (HOSP [facility] H23):Latoya Mohamud, RN, RN 07/22/2017 10:35 AM Signed07/22/2017: Navigator contacted [facility] ([phone]) toobtain recent labs. [facility] will fax labs and medication list. Craig also have a copies of this sent with him to his appointments. Normal [facility] Cristhian 07-16-2017 FANNYN Telephone (PULMMN) SA SHAILA LANDRY ([id number]) 1940 MDate Time Provider Department07/16/17 CESAR ROWLEY During your visit today, we recorded the following information about you:Kristie Gonzalez 07/16/2017 2:35 PM Signedcxr report to FANNY.Italo Mora CNP 07/17/2017 12:47 PM SignedCXR 07/13/2017StableAllergies As of Date: 07/16/2017(No Known Allergies)Date Reviewed: 07/14/2017Reviewed by: Kim Walker (Fel) - Fully AssessedReason for Visit: Received Outside Medical Records [[id number]]Problem List As Of Date: 07/16/2017(None) Status:Closed by KRISTIE ANDRADE on 07/16/17 Normal [facility] BASIC METABOLIC PANELon Calcium 8.5 mg/dL Low 8.6-10.3 [facility] Comment on above: Order Comment: No: Do not add to previou s draw Performed By: #### 4 1000, 67946, 16910, 51144, 76791 ####[facility] [place] [address], [facility] Chloride 104 mmol/L Normal 98-107 [facility] Comment on above: Order Comment: No: Do not add to previou s draw Performed By: #### 4 1000, 98894, 01537, 57479, 20498 ####[facility] [place] [address], [facility] CO2 30 mmol/L Normal 21-31 [facility] Comment on above: Order Comment: No: Do not add to previou s draw Performed By: #### 4 1000, 90011, 34604, 36450, 91890 ####[facility] [place] [address], [facility] Creatinine 0.94 mg/dL Normal 0.70-1.30 [facility] Comment on above: Order Comment: No: Do not add to previou s draw Performed By: #### 4 1000, 76732, 37962, 40500, 83180 ####[facility] [place] [address], [facility] eGFR (black) mL/min/{1.73_m2} Normal >60 [facility] Comment on above: Order Comment: No: Do not add to previou s draw Result Comment: Calc ulation may not be valid for patients over 70 years Performed By: #### 4 1000, 12832, 79716, 28253, 32112 ####[facility] eGFR (non-black) mL/min/{1.73_m2} Normal >60 Th e [facility] Comment on above: Order Comment: No: Do not add to previou s draw Result Comment: Calc ulation may not be valid for patients over 70 years Performed By: #### 4 1000, 52094, 43235, 31450, 71314 ####[facility] [facility].[address] Glucose mass conc 98 mg/dL Normal 70-100 [facility] Comment on above: Order Comment: No: Do not add to previou s draw Performed By: #### 4 1000, 24221, 50947, 97945, 77354 ####[place] [address] [facility].[address] Potassium molar conc 4.3 mmol/L Normal 3.5-5.1 [facility] Comment on above: Order Comment: No: Do not add to previou s draw Performed By: #### 4 1000, 07080, 98635, 42953, 14472 ####[place] [address] [facility].[address] Sodium 141 mmol/L Normal 136-145 [facility] Comment on above: Order Comment: No: Do not add to previou s draw Performed By: #### 4 1000, 10713, 94366, 49455, 93485 ####[place] [address] [facility].[address] Urea nitrogen 17 mg/dL Normal 7-25 [facility] Comment on above: Order Comment: No: Do not add to previou s draw Performed By: #### 4 1000, 86107, 41316, 19809, 86440 ####[facility] [place] [address], [facility] CBC W/DIFFon 06-20-2017 Basophils Auto #/vol (Bld) 0.5 % Normal 0.0-2.0 [facility] Comment on above: Performed By: #### 45083, 95845, 69587, 79897, 89666 ####[facility] [place] [address], [facility] Eosinophils/100 leukocytes 3.6 % Normal 0.0-5.0 [facility] Comment on above: Performed By: #### 03127, 85285, 61158, 22664, 30208 ####[facility] Erythrocyte distribution width Auto Ratio (RBC) 14.2 % Normal 11.5-16.9 [facility] Comment on above: Performed By: #### 04498, 65803, 66955, 28859, 32481 ####[facility] [facility].[address] Erythrocytes (RBC) 4.19 mill/mm3 Low 4.30-5.90 [facility] Comment on above: Performed By: #### 43708, 90762, 40757, 47108, 53009 ####[facility] [facility].[address] Hematocrit (HCT) 39.9 % Normal 39.0-55.0 [facility] Comment on above: Performed By: #### 49939, 90637, 39312, 84775, 10415 ####[facility] Hemoglobin mass conc (Bld) 13.6 g/dL Low 13.9-16.3 [facility] Comment on above: Performed By: #### 73224, 67292, 74061, 83574, 46943 ####[facility] [place] [address], [facility] Lymphocytes/100 leukocytes 15.7 % Low 20.0-40.0 [facility] Comment on above: Performed By: #### 32395, 99640, 70829, 99190, 38805 ####[facility] [place] [address], [facility] MCH 32.4 pg High 24.0-32.0 [facility] Comment on above: Performed By: #### 05359, 70207, 69321, 06090, 67457 ####[facility] MCHC mass conc (RBC) 34.0 g/dL Normal 32.0-36.0 [facility] Comment on above: Performed By: #### 28207, 71146, 90654, 13574, 06740 ####[facility] [facility].[address] MCV 95.3 fL Normal 80.0-100.0 [facility] Comment on above: Performed By: #### 02300, 93646, 61190, 82012, 05473 ####[facility] [facility] [place] [address], [facility] METHOD Normal RBC Morphology Normal [facility] Comment on above: Performed By: #### 97162, 10027, 08626, 27727, 10045 ####[facility] MONOS 9.9 % High 2-8 [facility] Comment on above: Performed By: #### 73144, 43709, 96086, 95910, 52264 ####[facility] [place] [address], [facility] Neutrophils/100 leukocytes 70.3 % High 50-70 [facility] Comment on above: Performed By: #### 27301, 51891, 45183, 63253, 18037 ####[facility] [place] [address], [facility] PLAT CNT 193 Thou/mm3 Normal 100-400 [facility] Comment on above: Performed By: #### 62492, 47631, 90013, 01046, 07677 ####[facility] WBC (Leukocytes) 8.7 Thou/mm3 Normal 4.0-10.0 [facility] Comment on above: Performed By: #### 90070, 90565, 53332, 27695, 32874 ####[facility] Discharge Summaryon 06-20-19 18 Discharge Summary MR#: [id number] [facility] Desean Land[facility] Admitted: 06/13/2017 Discharged: 06/20/2017 Date of : 1940 Physician: Diogenes Ren M.D. DISCHARGE SUMMARYPRIMARY DIAGNOSIS: Rhabdomyolysis secondary to prolonged immobilization.SECONDARY DIAGNOSES:1. History of atrial fibrillation.2. Right sided Posterior Calcified pleural plaques.3. Right-sided loculated pleural effusion.CONSULTS: CT Surgery, Pulmonary.PROCEDURES: None.SUMMARY OF HOSPITAL COURSE: Mr. Landry is a 76-year-old male, who presentedto [facility] ED with complaints of being found [...] EMS was contacted and brought the patient [facility]. Initial workup was notable for severe rhabdomyolysis,and the patient was transferred to [facility]. He has a past medical historysignificant [...] not have a biopsy performed whilehospitalized at [facility].His CK and myoglobin continue to trend [...] 06/19/2017/05:47 P/Jarad Ayon, MDDate Trans: 06/20/2017 04:29 P/mmoDN_JN:[id number]: Diogenes Casiano M.D. [address] [facility] [address] Normal [facility] MAGNESIUM BLOODon 06-20-2017 Magnesium 2.0 mg/dL Normal 1.9-2.7 [facility] Comment on above: Order Comment: No: Do not add to previou s draw Performed By: #### 4 1000, 68392, 39533, 02795, 11821 ####[facility] [place] [address], [facility] PHOSPHORUS BLOODon 8 Phosphate 3.5 mg/dL Normal 2.5-5.0 [facility] Comment on above: Order Comment: No: Do not add to previou s draw Performed By: #### 4 1000, 74939, 58949, 64276, 96136 ####[facility] [place] [address], [facility] BASIC METABOLIC PANELon Calcium 8.5 mg/dL Low 8.6-10.3 [facility] Comment on above: Order Comment: No: Do not add to previou s draw Performed By: #### 4 1000, 74278, 58800, 90523, 84469 ####[facility] [place] [address], [place] Chloride 105 mmol/L Normal 98-107 [facility] Comment on above: Order Comment: No: Do not add to previou s draw Performed By: #### 4 1000, 74762, 18843, 14130, 79755 ####[facility] [place] [address], [facility] CO2 26 mmol/L Normal 21-31 [facility] Comment on above: Order Comment: No: Do not add to previou s draw Performed By: #### 4 1000, 29721, 31612, 98176, 96288 ####[facility] Creatinine 0.95 mg/dL Normal 0.70-1.30 [facility] Comment on above: Order Comment: No: Do not add to previou s draw Performed By: #### 4 1000, 26083, 74555, 38389, 66446 ####[facility] eGFR (black) mL/min/{1.73_m2} Normal >60 [facility] Comment on above: Order Comment: No: Do not add to previou s draw Result Comment: Calc ulation may not be valid for patients over 70 years Performed By: #### 4 1000, 95739, 46238, 23325, 82787 ####[facility] eGFR (non-black) mL/min/{1.73_m2} Normal >60 Th e [facility] Comment on above: Order Comment: No: Do not add to previou s draw Result Comment: Calc ulation may not be valid for patients over 70 years Performed By: #### 4 1000, 83825, 33608, 07127, 34120 ####[facility] Glucose mass conc 102 mg/dL High 70-100 [facility] Comment on above: Order Comment: No: Do not add to previou s draw Performed By: #### 4 1000, 30815, 32243, 47766, 37156 ####[facility] [place] [address], [facility] Potassium molar conc 3.7 mmol/L Normal 3.5-5.1 [facility] Comment on above: Order Comment: No: Do not add to previou s draw Performed By: #### 4 1000, 12476, 33252, 66194, 94909 ####[facility] Sodium 139 mmol/L Normal 136-145 [facility] Comment on above: Order Comment: No: Do not add to previou s draw Performed By: #### 4 1000, 59200, 37284, 09831, 91305 ####[facility] Urea nitrogen 17 mg/dL Normal 7-25 [facility] Comment on above: Order Comment: No: Do not add to previou s draw Performed By: #### 4 1000, 83181, 11466, 78148, 88828 ####[facility] CBC W/DIFFon 06-19-2017 Basophils Auto #/vol (Bld) 0.5 % Normal 0.0-2.0 [facility] Comment on above: Order Comment: No: Do not add to previou s draw Performed By: #### 4 1000, 92001, 19275, 88794, 93717 ####[facility] Eosinophils/100 leukocytes 1.0 % Normal 0.0-5.0 [facility] Comment on above: Order Comment: No: Do not add to previou s draw Performed By: #### 4 1000, 19181, 32869, 19886, 30951 ####[facility] Erythrocyte distribution width Auto Ratio (RBC) 13.7 % Normal 11.5-16.9 [facility] Comment on above: Order Comment: No: Do not add to previou s draw Performed By: #### 4 1000, 96647, 55639, 66240, 71720 ####[facility] Erythrocytes (RBC) 4.33 mill/mm3 Normal 4.30-5.90 [facility] Comment on above: Order Comment: No: Do not add to previou s draw Performed By: #### 4 1000, 48788, 78049, 81538, 79155 ####[facility] [facility].[address] Hematocrit (HCT) 41.5 % Normal 39.0-55.0 [facility] Comment on above: Order Comment: No: Do not add to previou s draw Performed By: #### 4 1000, 99238, 67672, 02487, 06716 ####[facility]3000 [facility].[address] Hemoglobin mass conc (Bld) 14.1 g/dL Normal 13.9-16.3 [facility] Comment on above: Order Comment: No: Do not add to previou s draw Performed By: #### 4 1000, 89749, 50415, 21595, 80602 ####[facility]3000 [facility].[address] Lymphocytes/100 leukocytes 11.5 % Low 20.0-40.0 [facility] Comment on above: Order Comment: No: Do not add to previou s draw Performed By: #### 4 1000, 31046, 48860, 51879, 30071 ####[facility] [facility].[address] MCH 32.7 pg High 24.0-32.0 [facility] Comment on above: Order Comment: No: Do not add to previou s draw Performed By: #### 4 1000, 31425, 43814, 16912, 57611 ####[facility] [facility].[address] MCHC mass conc (RBC) 34.1 g/dL Normal 32.0-36.0 The [facility] Comment on above: Order Comment: No: Do not add to previou s draw Performed By: #### 4 1000, 77989, 69387, 45463, 78162 ####[facility] [place] [address], [facility] MCV 95.9 fL Normal 80.0-100.0 The [facility] Comment on above: Order Comment: No: Do not add to previou s draw Performed By: #### 4 1000, 71671, 24063, 26608, 43110 ####[facility] [place] [address], [facility] METHOD Normal RBC Morphology Normal The [facility] Comment on above: Order Comment: No: Do not add to previou s draw Performed By: #### 4 1000, 43074, 39060, 55998, 52933 ####[facility] [place] [address], [facility] MONOS 11.9 % High 2-8 The [facility] Comment on above: Order Comment: No: Do not add to previou s draw Performed By: #### 4 1000, 54838, 74763, 96413, 15504 ####[facility] [place] [address], [facility] Neutrophils/100 leukocytes 75.1 % High 50-70 The [facility] Comment on above: Order Comment: No: Do not add to previou s draw Performed By: #### 4 1000, 85943, 61767, 59786, 73824 ####[facility] [place] [address], [place] PLAT CNT 192 Thou/mm3 Normal 100-400 The [facility] Comment on above: Order Comment: No: Do not add to previou s draw Performed By: #### 4 1000, 32693, 62775, 35111, 19437 ####[facility] [place] [address], [place] WBC (Leukocytes) 10.7 Thou/mm3 High 4.0-10.0 The [facility] Comment on above: Order Comment: No: Do not add to previou s draw Performed By: #### 4 1000, 66197, 14930, 78439, 74829 ####[facility] [place] [address], [facility] CPKon 06-19-2017 Creatine kinase (CK) 252 U/L High 30-223 The [facility] Comment on above: Performed By: #### 34536, 92683, 81814, 00814, 63475 ####[facility] [place] [address], [facility] MAGNESIUM BLOODon 06-19-2017 Magnesium 2.0 mg/dL Normal 1.9-2.7 The [facility] Comment on above: Order Comment: No: Do not add to previou s draw Performed By: #### 4 1000, 79328, 72874, 81893, 26501 ####[facility] [place] [address], [facility] MYOGLOBINon 06-19-2017 Myoglobin 213 ng/mL Critically high 0-90 The [facility] Comment on above: Result Comment: A DOUBLING OF VALUES FRO M SERIAL BLOOD COLLECTIONS(1 - 2 HOURS APART) IS MORE INDICATIVE OF A M.I.THAN THE ABSOLUTE VALUE. Performed By: #### 4 1000, 25590, 54410, 90910, 39149 ####[facility] [place] [address], [facility] PHOSPHORUS BLOODon 8 Phosphate 2.7 mg/dL Normal 2.5-5.0 The [facility] Comment on above: Order Comment: No: Do not add to previou s draw Performed By: #### 4 1000, 82338, 75359, 59641, 83943 ####[facility] [place] [address], [facility] ALBUMIN BLOODon 06-18-2017 Albumin 2.6 g/dL Low 3.5-5.7 The [facility] Comment on above: Performed By: #### 87561, 91198, 54065, 12767, 85180 ####[facility] BASIC METABOLIC PANELon 01-0 Calcium 8.4 mg/dL Low 8.6-10.3 The [facility] Comment on above: Order Comment: No: Do not add to previou s draw Performed By: #### 5 0608 ####[facility] [place] [address], [facility] Chloride 106 mmol/L Normal 98-107 The [facility] Comment on above: Order Comment: No: Do not add to previou s draw Performed By: #### 5 0608 ####[facility] CO2 25 mmol/L Normal 21-31 The [facility] Comment on above: Order Comment: No: Do not add to previou s draw Performed By: #### 5 0608 ####[facility] Creatinine 0.93 mg/dL Normal 0.70-1.30 The [facility] Comment on above: Order Comment: No: Do not add to previou s draw Performed By: #### 5 0608 ####[facility] eGFR (black) mL/min/{1.73_m2} Normal >60 The [facility] Comment on above: Order Comment: No: Do not add to previou s draw Result Comment: Calc ulation may not be valid for patients over 70 years Performed By: #### 5 0608 ####[facility] eGFR (non-black) mL/min/{1.73_m2} Normal >60 Th e [facility] Comment on above: Order Comment: No: Do not add to previou s draw Result Comment: Calc ulation may not be valid for patients over 70 years Performed By: #### 5 0608 ####[facility] [place] [address], [facility] Glucose mass conc 106 mg/dL High 70-100 The [facility] Comment on above: Order Comment: No: Do not add to previou s draw Performed By: #### 5 0608 ####[facility] [facility].[address] Potassium molar conc 3.4 mmol/L Low 3.5-5.1 The [facility] Comment on above: Order Comment: No: Do not add to previou s draw Performed By: #### 5 0608 ####[facility] [facility].[address] Sodium 137 mmol/L Normal 136-145 The [facility] Comment on above: Order Comment: No: Do not add to previou s draw Performed By: #### 5 0608 ####[facility] [facility].[address] Urea nitrogen 21 mg/dL Normal 7-25 The [facility] Comment on above: Order Comment: No: Do not add to previou s draw Performed By: #### 5 0608 ####[facility] [facility].[address] CBC W/DIFFon 06-18-2017 Basophils Auto #/vol (Bld) 0.9 % Normal 0.0-2.0 The [facility] Comment on above: Order Comment: No: Do not add to previou s draw Performed By: #### 5 0608 ####[facility] [place] [address], [facility] Eosinophils/100 leukocytes 2.3 % Normal 0.0-5.0 The [facility] Comment on above: Order Comment: No: Do not add to previou s draw Performed By: #### 5 0608 ####[facility] Erythrocyte distribution width Auto Ratio (RBC) 13.6 % Normal 11.5-16.9 The [facility] Comment on above: Order Comment: No: Do not add to previou s draw Performed By: #### 5 0608 ####[facility] Erythrocytes (RBC) 4.37 mill/mm3 Normal 4.30-5.90 The [facility] Comment on above: Order Comment: No: Do not add to previou s draw Performed By: #### 5 0608 ####[facility] Hematocrit (HCT) 42.0 % Normal 39.0-55.0 The [facility] Comment on above: Order Comment: No: Do not add to previou s draw Performed By: #### 5 0608 ####[facility] Hemoglobin mass conc (Bld) 14.2 g/dL Normal 13.9-16.3 The [facility] Comment on above: Order Comment: No: Do not add to previou s draw Performed By: #### 5 0608 ####[facility] [place] [address], [facility] Lymphocytes/100 leukocytes 15.2 % Low 20.0-40.0 The [facility] Comment on above: Order Comment: No: Do not add to previou s draw Performed By: #### 5 0608 ####[facility] [place] [address], [facility] MCH 32.5 pg High 24.0-32.0 The [facility] Comment on above: Order Comment: No: Do not add to previou s draw Performed By: #### 5 0608 ####[facility] MCHC mass conc (RBC) 33.8 g/dL Normal 32.0-36.0 The [facility] Comment on above: Order Comment: No: Do not add to previou s draw Performed By: #### 5 0608 ####[facility] [place] [address], [facility] MCV 96.1 fL Normal 80.0-100.0 The [facility] Comment on above: Order Comment: No: Do not add to previou s draw Performed By: #### 5 0608 ####[facility] [place] [address], [facility] METHOD Normal RBC Morphology Normal The [facility] Comment on above: Order Comment: No: Do not add to previou s draw Performed By: #### 5 0608 ####[facility] [place] [address], [facility] MONOS 11.8 % High 2-8 The [facility] Comment on above: Order Comment: No: Do not add to previou s draw Performed By: #### 5 0608 ####[facility] [place] [address], [facility] Neutrophils/100 leukocytes 69.8 % Normal 50-70 The [facility] Comment on above: Order Comment: No: Do not add to previou s draw Performed By: #### 5 0608 ####[facility] [place] [address], [facility] PLAT CNT 168 Thou/mm3 Normal 100-400 The [facility] Comment on above: Order Comment: No: Do not add to previou s draw Performed By: #### 5 0608 ####[facility] [place] [address], [facility] WBC (Leukocytes) 10.8 Thou/mm3 High 4.0-10.0 The [facility] Comment on above: Order Comment: No: Do not add to previou s draw Performed By: #### 5 0608 ####[facility] CPKon 06-18-2017 Creatine kinase (CK) 586 U/L High 30-223 The [facility] Comment on above: Performed By: #### 20833, 40929, 18279, 72579, 97607 ####[facility] MAGNESIUM BLOODon 06-18-2017 Magnesium 1.9 mg/dL Normal 1.9-2.7 The [facility] Comment on above: Order Comment: No: Do not add to previou s draw Performed By: #### 5 0608 ####[facility] MYOGLOBINon 06-18-2017 Myoglobin 353 ng/mL Critically high 0-90 The [facility] Comment on above: Result Comment: A DOUBLING OF VALUES FRO M SERIAL BLOOD COLLECTIONS(1 - 2 HOURS APART) IS MORE INDICATIVE OF A M.I.THAN THE ABSOLUTE VALUE. Performed By: #### 4 1000, 60618, 94132, 56891, 20510 ####[facility] [place] [address], [facility] PHOSPHORUS BLOODon 8 Phosphate 3.7 mg/dL Normal 2.5-5.0 The [facility] Comment on above: Order Comment: No: Do not add to previou s draw Performed By: #### 5 0608 ####[facility] [place] [address], [facility] BASIC METABOLIC PANELon Calcium 8.4 mg/dL Low 8.6-10.3 The [facility] Comment on above: Order Comment: No: Do not add to previou s draw Performed By: #### 5 0608 ####[facility] [place] [address], [facility] Chloride 110 mmol/L High 98-107 The [facility] Comment on above: Order Comment: No: Do not add to previou s draw Performed By: #### 5 0608 ####[facility] [place] [address], [facility] CO2 25 mmol/L Normal 21-31 The [facility] Comment on above: Order Comment: No: Do not add to previou s draw Performed By: #### 5 0608 ####[facility] [place] [address], [facility] Creatinine 0.95 mg/dL Normal 0.70-1.30 The [facility] Comment on above: Order Comment: No: Do not add to previou s draw Performed By: #### 5 0608 ####[facility] eGFR (black) mL/min/{1.73_m2} Normal >60 The [facility] Comment on above: Order Comment: No: Do not add to previou s draw Result Comment: Calc ulation may not be valid for patients over 70 years Performed By: #### 5 0608 ####[facility] [place] [address], [facility] eGFR (non-black) mL/min/{1.73_m2} Normal >60 Th e [facility] Comment on above: Order Comment: No: Do not add to previou s draw Result Comment: Calc ulation may not be valid for patients over 70 years Performed By: #### 5 0608 ####[facility] [place] [address], [facility] Glucose mass conc 107 mg/dL High 70-100 The [facility] Comment on above: Order Comment: No: Do not add to previou s draw Performed By: #### 5 0608 ####[facility] Potassium molar conc 3.5 mmol/L Normal 3.5-5.1 The [facility] Comment on above: Order Comment: No: Do not add to previou s draw Performed By: #### 5 0608 ####[facility] Sodium 141 mmol/L Normal 136-145 The [facility] Comment on above: Order Comment: No: Do not add to previou s draw Performed By: #### 5 0608 ####[facility] Urea nitrogen 23 mg/dL Normal 7-25 The [facility] Comment on above: Order Comment: No: Do not add to previou s draw Performed By: #### 5 0608 ####[facility] CBC COMPLETE BLOOD COUNTon 0 - Erythrocyte distribution width Auto Ratio (RBC) 13.7 % Normal 11.5-16.9 The [facility] Comment on above: Order Comment: No: Do not add to previou s draw Performed By: #### 5 0608 ####[facility] Erythrocytes (RBC) 4.45 mill/mm3 Normal 4.30-5.90 The [facility] Comment on above: Order Comment: No: Do not add to previou s draw Performed By: #### 5 0608 ####[facility] Hematocrit (HCT) 42.9 % Normal 39.0-55.0 The [facility] Comment on above: Order Comment: No: Do not add to previou s draw Performed By: #### 5 0608 ####[facility] Hemoglobin mass conc (Bld) 14.3 g/dL Normal 13.9-16.3 The [facility] Comment on above: Order Comment: No: Do not add to previou s draw Performed By: #### 5 0608 ####[facility] MCH 32.1 pg High 24.0-32.0 The [facility] Comment on above: Order Comment: No: Do not add to previou s draw Performed By: #### 5 0608 ####[facility] [facility].[address] MCHC mass conc (RBC) 33.3 g/dL Normal 32.0-36.0 The [facility] Comment on above: Order Comment: No: Do not add to previou s draw Performed By: #### 5 0608 ####[facility] [facility].[address] MCV 96.3 fL Normal 80.0-100.0 The [facility] Comment on above: Order Comment: No: Do not add to previou s draw Performed By: #### 5 0608 ####[facility] [facility].[address] PLAT CNT 138 Thou/mm3 Normal 100-400 The [facility] Comment on above: Order Comment: No: Do not add to previou s draw Performed By: #### 5 0608 ####[facility] [facility].[address] WBC (Leukocytes) 10.7 Thou/mm3 High 4.0-10.0 The [facility] Comment on above: Order Comment: No: Do not add to previou s draw Performed By: #### 5 0608 ####[facility] [place] [address] MYOGLOBINon 06-17-2017 Myoglobin 700 ng/mL Critically high 0-90 The [facility] Comment on above: Result Comment: A DOUBLING OF VALUES FRO M SERIAL BLOOD COLLECTIONS(1 - 2 HOURS APART) IS MORE INDICATIVE OF A M.I.THAN THE ABSOLUTE VALUE. Performed By: #### 5 0608 ####[address] LUMBAR SPINE WO CONTRA STon 06-16-[address] LUMBAR SPINE WO CONTRAST [facility] [address] [place] [id number] Patient Name: DESEAN LANDRY : 1940ex: MAge: Race: WhiteMRN: [id number]. Location: [id number] Status: IVisit #: [id number] Date: 06/16/2017 10:45:00 AMCompleted Date: 06/16/2017 11:31 AMRequesting Provider: NADEEN SALCEDO Attending Provider: NADEEN SALCEDO Report Copy To: Signs & Symptoms: Back Pain (specify level)History: Patient history not availableComments: R/O Fractures, If Other selected, state reason for examExam: 3D CT LUMBAR SPINE WO CONTRASTAccession #: [id number] 3D CT LUMBAR SPINE WO CONTRAST 06/16/2017 [...] findings. Electronically signed by:Srinath Meyer. Transcribed by: [email or web address], User Resident: PAOLA WOLFElectronically Signed by: SRINATH MEYER @ 06/16/2017 12:13 PMI personally read this/these film(s) with this resident Normal The [facility] Comment on above: Order Comment: No: Do not add to previou s draw 3D CT THORACIC SPINE WO CONT RASTon 06-16-[address] THORACIC SPINE WO CONTRAST [facility] [address] [place] [address] Patient Name: DESEAN LANDRY : 3Sex: MAge: Race: WhiteMRN: [id number]. Location: [id number] Status: IVisit #: [id number] Date: 06/16/2017 10:45:00 AMCompleted Date: 06/16/2017 11:32 AMRequesting Provider: NADEEN SALCEDO Attending Provider: NADEEN SALCEDO Report Copy To: Signs & Symptoms: Back Pain (specify level)History: Patient history not availableComments: R/O Fractures, History of Fall and c/o Back Pain. Rule out fractureExam: 3D CT THORACIC SPINE WO CONTRASTAccession #: [id number] 3D CT THORACIC SPINE WO CONTRAST 06/16/2017 [...] findings. Electronically signed by:Srinath Meyer. Transcribed by: [email or web address], User Resident: CAN HARRISElectronically Signed by: SRINATH MEYER @ 06/16/2017 12:03 PMI personally read this/these film(s) with this resident Normal The [facility] Comment on above: Order Comment: No: Do not add to previou s draw BASIC METABOLIC PANELon Calcium 7.9 mg/dL Low 8.6-10.3 The [facility] Comment on above: Order Comment: No: Do not add to previou s draw Performed By: #### 0 0071, 05532 ####[facility] [place] [address], [facility] Chloride 112 mmol/L High 98-107 The [facility] Comment on above: Order Comment: No: Do not add to previou s draw Performed By: #### 0 0071, 32553 ####[facility] [place] [address], [facility] CO2 22 mmol/L Normal 21-31 The [facility] Comment on above: Order Comment: No: Do not add to previou s draw Performed By: #### 0 0071, 06823 ####[facility] [place] [address], [facility] Creatinine 1.05 mg/dL Normal 0.70-1.30 The [facility] Comment on above: Order Comment: No: Do not add to previou s draw Performed By: #### 0 0071, 50265 ####[facility] eGFR (black) mL/min/{1.73_m2} Normal >60 The [facility] Comment on above: Order Comment: No: Do not add to previou s draw Result Comment: Calc ulation may not be valid for patients over 70 years Performed By: #### 0 0071, 97555 ####[facility] eGFR (non-black) mL/min/{1.73_m2} Normal >60 Th e [facility] Comment on above: Order Comment: No: Do not add to previou s draw Result Comment: Calc ulation may not be valid for patients over 70 years Performed By: #### 0 0071, 53233 ####[facility] [place] [address], [facility] Glucose mass conc 102 mg/dL High 70-100 The [facility] Comment on above: Order Comment: No: Do not add to previou s draw Performed By: #### 0 0071, 95519 ####[facility] [place] [address], [facility] Potassium molar conc 4.0 mmol/L Normal 3.5-5.1 The [facility] Comment on above: Order Comment: No: Do not add to previou s draw Performed By: #### 0 0071, 94330 ####[facility] [place] [address], [facility] Sodium 139 mmol/L Normal 136-145 The [facility] Comment on above: Order Comment: No: Do not add to previou s draw Performed By: #### 0 0071, 96234 ####[facility] [place] [address], [facility] Urea nitrogen 20 mg/dL Normal 7-25 The [facility] Comment on above: Order Comment: No: Do not add to previou s draw Performed By: #### 0 0071, 21835 ####[facility] [place] [address], [facility] BNP (B-TYPE NATRIURETIC PEPT DEANNE)on 01-02-2018 BNP 1298 pg/mL High 0-100 The [facility] Comment on above: Order Comment: No: Do not add to previou s draw Result Comment: Give n the appropriate clinical setting a BNP result of >100 pg/mLindicates congestive heart failure. Performed By: #### 5 0608 ####[facility] CBC COMPLETE BLOOD COUNTon 0 06-16-2017 Erythrocyte distribution width Auto Ratio (RBC) 13.7 % Normal 11.5-16.9 The [facility] Comment on above: Order Comment: No: Do not add to previou s draw Performed By: #### 0 0071, 37188 ####[facility] Erythrocytes (RBC) 4.24 mill/mm3 Low 4.30-5.90 The [facility] Comment on above: Order Comment: No: Do not add to previou s draw Performed By: #### 0 0071, 82587 ####[facility] Hematocrit (HCT) 40.7 % Normal 39.0-55.0 The [facility] Comment on above: Order Comment: No: Do not add to previou s draw Performed By: #### 0 0071, 06093 ####[facility] Hemoglobin mass conc (Bld) 13.6 g/dL Low 13.9-16.3 [facility] Comment on above: Order Comment: No: Do not add to previou s draw Performed By: #### 0 0071, 44459 ####[facility] MCH 32.1 pg High 24.0-32.0 [facility] Comment on above: Order Comment: No: Do not add to previou s draw Performed By: #### 0 0071, 95384 ####[facility]3000 [facility].[address] MCHC mass conc (RBC) 33.4 g/dL Normal 32.0-36.0 The [facility] Comment on above: Order Comment: No: Do not add to previou s draw Performed By: #### 0 0071, 08430 ####[facility]3000 [facility].[address] MCV 96.1 fL Normal 80.0-100.0 The [facility] Comment on above: Order Comment: No: Do not add to previou s draw Performed By: #### 0 0071, 20776 ####[facility]3000 [facility].[address] PLAT CNT 120 Thou/mm3 Normal 100-400 The [facility] Comment on above: Order Comment: No: Do not add to previou s draw Performed By: #### 0 0071, 66779 ####[facility]3000 [facility].[address] WBC (Leukocytes) 10.3 Thou/mm3 High 4.0-10.0 The [facility] Comment on above: Order Comment: No: Do not add to previou s draw Performed By: #### 0 0071, 71832 ####[facility]3000 [facility].[address] CPKon 06-16-2017 Creatine kinase (CK) 2950 U/L Critically high 30-223 The [facility] Comment on above: Performed By: #### 81115, 48536 ####[facility] CR-PORTABLE CHEST 1 VIEW IMP Emeli 06-16-2017 CR-PORTABLE CHEST 1 VIEW IMPORT Images were obtained outside of [facility] [id number] Normal [facility] CT CHEST WO CONTRASTon 06-16 CT CHEST WO CONTRAST [facility] Aentrtr[address] [place] [address] Patient Name: DESEAN LANDRY : 2Sex: MAge: Race: WhiteMRN: [id number]. Location: [id number] Status: IVisit #: [id number] Date: 06/16/2017 5:25:00 PMCompleted Date: 06/16/2017 06:06 PMRequesting Provider: RAFFAELE GARCIA Attending Provider: NADEEN SALECDO Report Copy To: Signs & Symptoms: Shortness of BreathHistory: Patient history not availableComments: R/O Pleural Effusion, please comment about pleural effusionExam: CT CHEST WO CONTRASTAccession #: [id number] CT CHEST WO CONTRAST 06/16/2017 6:06 PM [...] findings. Electronically signed by:Xiomara Christine. Transcribed by: [email or web address], User Resident: SUNITHA CAMACHOElectronically Signed by: XIOMARA CHRISTINE @ 06/17/2017 01:24 PMI personally read this/these film(s) with this resident Normal [facility] Comment on above: Order Comment: No: Do not add to previou s draw CT-3D CT LUMBAR SPINE WO CON TRAST IMPORTon 06-16-2017 CT-3D CT LUMBAR SPINE WO CONTRAST IMPORT Images were obtained outside of [facility] [id number] Normal [facility] CT-3D CT THORACIC SPINE WO C ONTRAST IMPORTon 06-16-2017 CT-3D CT THORACIC SPINE WO CONTRAST IMPORT Images were obtained outside of [facility] [id number] Normal [facility] CT-CT CHEST WO CONTRAST IMPO RTon 06-16-2017 CT-CT CHEST WO CONTRAST IMPORT Images were obtained outside of [facility] [id number] Normal [facility] MYOGLOBINon 06-16-2017 Myoglobin 872 ng/mL Critically high 0-90 The [facility] Comment on above: Result Comment: A DOUBLING OF VALUES FRO M SERIAL BLOOD COLLECTIONS(1 - 2 HOURS APART) IS MORE INDICATIVE OF A M.I.THAN THE ABSOLUTE VALUE. Performed By: #### 0 0071, 16932 ####[facility] [place] [address] PORTABLE CHEST 1 VIEWon PORTABLE CHEST 1 VIEW [facility] Arcgibkrf[address] [place] [address] Patient Name: DESEAN LANDRY : 1940ex: MAge: Race: WhiteMRN: [id number]. Location: [id number] Status: IVisit #: [id number] Date: 06/16/2017 12:50:00 PMCompleted Date: 06/16/2017 01:22 PMRequesting Provider: NADEEN SALCEDO Attending Provider: NADEEN SALCEDO Report Copy To: Signs & Symptoms: O2 DesaturationHistory: Patient history not availableComments: R/O AspirationExam: PORTABLE CHEST 1 VIEWAccession #: [id number] PORTABLE CHEST 1 VIEW 06/16/2017 1:22 PM [...] chest. Electronically signed by:Srinath Meyer. Transcribed by: [email or web address], User Resident: Electronically Signed by: SRINATH MEYER @ 06/16/2017 01:25 PM Normal [facility] Comment on above: Order Comment: No: Do not add to previou s draw PROTHROMBIN TIMEon 8 INR Coag RelTime (PPP) 1.51 {INR} High 0.91-1.16 The [facility] Comment on above: Order Comment: No: Do [...] OF ACTION, CLINICALEFFECTIVENESS, AND OPTIMAL THERAPEUTIC RANGE. [id number]-246S. Performed By: #### 5 0608 ####[facility] Prothrombin time (PT) Coag time (PPP) 18.4 s High 12.3-14.8 The [facility] Comment on above: Order Comment: No: Do not add to previou s draw Result Comment: ALL RESULTS MUST BE INTERPRETED WITH RESPECT TO BLOOD DRAWING ARTIFACTOR DILUTION ERROR OF ANTICOAGULANT AT THE TIME OF SAMPLING. Performed By: #### 5 0608 ####[facility] BASIC METABOLIC PANELon 01-0 Calcium 8.0 mg/dL Low 8.6-10.3 The [facility] Comment on above: Order Comment: No: Do not add to previou s draw Performed By: #### 0 0071, 23694, 97020, 92678 ####[facility] Chloride 109 mmol/L High 98-107 The [facility] Comment on above: Order Comment: No: Do not add to previou s draw Performed By: #### 0 0071, 52469, 39734, 04582 ####[facility] [place] [address], [facility] CO2 21 mmol/L Normal 21-31 The [facility] Comment on above: Order Comment: No: Do not add to previou s draw Performed By: #### 0 0071, 32874, 61808, 66204 ####[facility] [place] [address], [facility] Creatinine 1.15 mg/dL Normal 0.70-1.30 The [facility] Comment on above: Order Comment: No: Do not add to previou s draw Performed By: #### 0 0071, 67617, 37618, 81286 ####[facility] [place] [address], [facility] eGFR (black) mL/min/{1.73_m2} Normal >60 The [facility] Comment on above: Order Comment: No: Do not add to previou s draw Result Comment: Calc ulation may not be valid for patients over 70 years Performed By: #### 0 0071, 78897, 24793, 49485 ####[facility] [place] [address], [facility] eGFR (non-black) mL/min/{1.73_m2} Normal >60 Th e [facility] Comment on above: Order Comment: No: Do not add to previou s draw Result Comment: Calc ulation may not be valid for patients over 70 years Performed By: #### 0 0071, 10771, 28907, 13791 ####[facility] [place] [address], [facility] Glucose mass conc 117 mg/dL High 70-100 The [facility] Comment on above: Order Comment: No: Do not add to previou s draw Performed By: #### 0 0071, 70916, 40860, 31828 ####[facility] [place] [address], [facility] Potassium molar conc 3.9 mmol/L Normal 3.5-5.1 The [facility] Comment on above: Order Comment: No: Do not add to previou s draw Performed By: #### 0 0071, 07073, 37460, 69951 ####[facility] [place] [address], [facility] Sodium 138 mmol/L Normal 136-145 The [facility] Comment on above: Order Comment: No: Do not add to previou s draw Performed By: #### 0 0071, 95361, 14152, 75012 ####[facility] [place] [address], [facility] Urea nitrogen 23 mg/dL Normal 7-25 The [facility] Comment on above: Order Comment: No: Do not add to previou s draw Performed By: #### 0 0071, 89154, 68552, 75056 ####[facility] CBC COMPLETE BLOOD COUNTon 0 06-15-2017 Erythrocyte distribution width Auto Ratio (RBC) 13.7 % Normal 11.5-16.9 The [facility] Comment on above: Order Comment: No: Do not add to previou s draw Performed By: #### 5 0608 ####[facility] [facility].[address] Erythrocytes (RBC) 4.44 mill/mm3 Normal 4.30-5.90 The [facility] Comment on above: Order Comment: No: Do not add to previou s draw Performed By: #### 5 0608 ####[facility]3000 [facility].[address] Hematocrit (HCT) 42.7 % Normal 39.0-55.0 The [facility] Comment on above: Order Comment: No: Do not add to previou s draw Performed By: #### 5 0608 ####[place] [address] [facility].[address] Hemoglobin mass conc (Bld) 14.5 g/dL Normal 13.9-16.3 The [facility] Comment on above: Order Comment: No: Do not add to previou s draw Performed By: #### 5 0608 ####[facility] [facility].[address] MCH 32.7 pg High 24.0-32.0 The [facility] Comment on above: Order Comment: No: Do not add to previou s draw Performed By: #### 5 0608 ####[facility] [place] [address], [facility] MCHC mass conc (RBC) 34.0 g/dL Normal 32.0-36.0 The [facility] Comment on above: Order Comment: No: Do not add to previou s draw Performed By: #### 5 0608 ####[facility]3000 [facility].[address] MCV 96.1 fL Normal 80.0-100.0 The [facility] Comment on above: Order Comment: No: Do not add to previou s draw Performed By: #### 5 0608 ####[facility]3000 [facility].[address] PLAT CNT 134 Thou/mm3 Normal 100-400 The [facility] Comment on above: Order Comment: No: Do not add to previou s draw Performed By: #### 5 0608 ####[facility]3000 [facility].[address] WBC (Leukocytes) 11.3 Thou/mm3 High 4.0-10.0 The [facility] Comment on above: Order Comment: No: Do not add to previou s draw Performed By: #### 5 0608 ####[facility]3000 [facility].[address] CPKon 06-15-2017 Creatine kinase (CK) 7925 U/L Critically high 30-223 The [facility] Comment on above: Order Comment: No: Do not add to previou s draw Performed By: #### 0 0071, 53908 ####[facility]3000 [facility].[address] MAGNESIUM BLOODon 06-15-2017 Magnesium 2.4 mg/dL Normal 1.9-2.7 The [facility] Comment on above: Performed By: #### 03384, 10355 ####[facility] [place] [address], [facility] PHOSPHORUS BLOODon 8 Phosphate 2.6 mg/dL Normal 2.5-5.0 The [facility] Comment on above: Performed By: #### 74723, 22381 ####[facility] [place] [address], [facility] BASIC METABOLIC PANELon 12-3 Calcium 8.3 mg/dL Low 8.6-10.3 The [facility] Comment on above: Order Comment: No: Do not add to previou s draw Performed By: #### 4 1000, 96268, 67720, 15754, 16046 ####[facility] [place] [address], [facility] Chloride 107 mmol/L Normal 98-107 The [facility] Comment on above: Order Comment: No: Do not add to previou s draw Performed By: #### 4 1000, 00291, 39134, 07825, 06653 ####[facility] [place] [address], [facility] CO2 23 mmol/L Normal 21-31 The [facility] Comment on above: Order Comment: No: Do not add to previou s draw Performed By: #### 4 1000, 43262, 50598, 59720, 14636 ####[facility] [place] [address], [facility] Creatinine 1.25 mg/dL Normal 0.70-1.30 The [facility] Comment on above: Order Comment: No: Do not add to previou s draw Performed By: #### 4 1000, 78165, 29316, 69053, 82619 ####[facility] [place] [address], [facility] eGFR (black) mL/min/{1.73_m2} Normal >60 The [facility] Comment on above: Order Comment: No: Do not add to previou s draw Result Comment: Calc ulation may not be valid for patients over 70 years Performed By: #### 4 1000, 09957, 30434, 78446, 97998 ####[facility] eGFR (non-black) 56 ml/min/1.73sq m Abnormal >60 The [facility] Comment on above: Order Comment: No: Do not add to previou s draw Result Comment: Calc ulation may not be valid for patients over 70 years Performed By: #### 4 1000, 50820, 03756, 00938, 06307 ####[facility] Glucose mass conc 109 mg/dL High 70-100 The [facility] Comment on above: Order Comment: No: Do not add to previou s draw Performed By: #### 4 1000, 09599, 05733, 21413, 69523 ####[facility] [place] [address], [facility] Potassium molar conc 4.3 mmol/L Normal 3.5-5.1 The [facility] Comment on above: Order Comment: No: Do not add to previou s draw Performed By: #### 4 1000, 35108, 15471, 07451, 18027 ####[facility] [place] [address], [facility] Sodium 136 mmol/L Normal 136-145 The [facility] Comment on above: Order Comment: No: Do not add to previou s draw Performed By: #### 4 1000, 84395, 61258, 85297, 51556 ####[facility] Urea nitrogen 25 mg/dL Normal 7-25 The [facility] Comment on above: Order Comment: No: Do not add to previou s draw Performed By: #### 4 1000, 13288, 10748, 83018, 83695 ####[facility] [place] [address], [facility] CBC COMPLETE BLOOD COUNTon Erythrocyte distribution width Auto Ratio (RBC) 13.8 % Normal 11.5-16.9 The [facility] Comment on above: Order Comment: No: Do not add to previou s draw Performed By: #### 5 0608 ####[facility] [place] [address], [facility] Erythrocytes (RBC) 4.83 mill/mm3 Normal 4.30-5.90 The [facility] Comment on above: Order Comment: No: Do not add to previou s draw Performed By: #### 5 0608 ####[facility] [place] [address], [facility] Hematocrit (HCT) 46.7 % Normal 39.0-55.0 The [facility] Comment on above: Order Comment: No: Do not add to previou s draw Performed By: #### 5 0608 ####[facility] [place] [address], [facility] Hemoglobin mass conc (Bld) 15.8 g/dL Normal 13.9-16.3 The [facility] Comment on above: Order Comment: No: Do not add to previou s draw Performed By: #### 5 0608 ####[facility] [place] [address], [facility] MCH 32.7 pg High 24.0-32.0 The [facility] Comment on above: Order Comment: No: Do not add to previou s draw Performed By: #### 5 0608 ####[facility] [place] [address], [facility] MCHC mass conc (RBC) 33.9 g/dL Normal 32.0-36.0 The [facility] Comment on above: Order Comment: No: Do not add to previou s draw Performed By: #### 5 0608 ####[facility] [place] [address], [facility] MCV 96.6 fL Normal 80.0-100.0 The [facility] Comment on above: Order Comment: No: Do not add to previou s draw Performed By: #### 5 0608 ####[facility] [place] [address], [facility] PLAT CNT 135 Thou/mm3 Normal 100-400 The [facility] Comment on above: Order Comment: No: Do not add to previou s draw Performed By: #### 5 0608 ####[facility] [place] [address], [facility] WBC (Leukocytes) 15.7 Thou/mm3 High 4.0-10.0 The [facility] Comment on above: Order Comment: No: Do not add to previou s draw Performed By: #### 5 0608 ####[facility] CPKon 06-14-2017 Creatine kinase (CK) 40997 U/L Critically high 30-223 The [facility] Comment on above: Performed By: #### 21180, 53347, 82504, 69795, 43288 ####[facility] MAGNESIUM BLOODon 06-14-2017 Magnesium 2.8 mg/dL High 1.9-2.7 The [facility] Comment on above: Order Comment: No: Do not add to previou s draw Performed By: #### 4 1000, 92057, 22682, 02642, 71938 ####[facility] [place] [address], [facility] PHOSPHORUS BLOODon 7 Phosphate 3.3 mg/dL Normal 2.5-5.0 The [facility] Comment on above: Order Comment: No: Do not add to previou s draw Performed By: #### 4 1000, 24185, 10368, 16530, 19263 ####[facility] [place] [address], [facility] TSHon 06-14-2017 Thyroid stimulating hormone (TSH) 2.65 MICRO-IU/ML Normal 0.34-5.60 The [facility] Comment on above: Performed By: #### 71904, 15505, 00781, 24568, 44291 ####[facility] BASIC METABOLIC PANELon 12-3 Calcium 8.4 mg/dL Low 8.6-10.3 The [facility] Comment on above: Order Comment: No: Do not add to previou s draw Performed By: #### 0 0071, 61344 ####[facility] [place] [address], [facility] Chloride 105 mmol/L Normal 98-107 The [facility] Comment on above: Order Comment: No: Do not add to previou s draw Performed By: #### 0 0071, 35102 ####[facility] [place] [address], [facility] CO2 26 mmol/L Normal 21-31 The [facility] Comment on above: Order Comment: No: Do not add to previou s draw Performed By: #### 0 0071, 43510 ####[facility] [place] [address], [facility] Creatinine 1.26 mg/dL Normal 0.70-1.30 The [facility] Comment on above: Order Comment: No: Do not add to previou s draw Performed By: #### 0 0071, 20253 ####[facility] [place] [address], [facility] eGFR (black) mL/min/{1.73_m2} Normal >60 The [facility] Comment on above: Order Comment: No: Do not add to previou s draw Result Comment: Calc ulation may not be valid for patients over 70 years Performed By: #### 0 0071, 96829 ####[facility] [place] [address], [facility] eGFR (non-black) 56 ml/min/1.73sq m Abnormal >60 The [facility] Comment on above: Order Comment: No: Do not add to previou s draw Result Comment: Calc ulation may not be valid for patients over 70 years Performed By: #### 0 0071, 25401 ####[facility] [place] [address], [facility] Glucose mass conc 106 mg/dL High 70-100 The [facility] Comment on above: Order Comment: No: Do not add to previou s draw Performed By: #### 0 0071, 06146 ####[facility] [place] [address], [facility] Potassium molar conc 4.8 mmol/L Normal 3.5-5.1 The [facility] Comment on above: Order Comment: No: Do not add to previou s draw Performed By: #### 0 0071, 89140 ####[facility] [place] [address], [facility] Sodium 138 mmol/L Normal 136-145 The [facility] Comment on above: Order Comment: No: Do not add to previou s draw Performed By: #### 0 0071, 64927 ####[facility] [place] [address], [facility] Urea nitrogen 23 mg/dL Normal 7-25 The [facility] Comment on above: Order Comment: No: Do not add to previou s draw Performed By: #### 0 0071, 51285 ####[facility] [place] [address], [facility] CPKon 06-13-2017 Creatine kinase (CK) 99967 U/L Critically high 30-223 [facility] Comment on above: Order Comment: No: Do not add to previou s draw Performed By: #### 0 0071, 04926 ####[facility] [id number] History and Physicalon 06-13 History and Physical MR#: [id number] Desean Landry Admitted: 06/13/2017 Date of : 1940 Attending Physician: Arpan Camacho MD Room #: [id number] Discharge Date: HISTORY AND PHYSICALPRIMARY CARE PHYSICIAN: [...] evaluation and management.The patient presented to the [facility] Emergency Department. Overthere, the patient had initial workup revealed severe rhabdomyolysis, sothe patient was referred to the [facility] for further evaluationand management. Denying [...] Dict: 06/13/2017/06:07 P/Mariangel Hayes Trans: 06/13/2017 06:38 P/[id number] Normal [facility] Encounters Encounter Date Encounter Type Care Provider Facility Start: 02-18-2023 End: 02-18-2023 ambulatory DRAGAN PEPPER [facility] Start: 12-05-2022 End: 12-05-2022 ambulatory AYDE WAGONER [facility] Start: 09-10-2022 End: 09-10-2022 ambulatory MYAH RUSSELL [facility] Start: 09-02-2022 Evaluation and management of inpatient [facility] Start: 09-01-2022 Evaluation and management of inpatient [facility] Start: 09-01-2022 ambulatory [facility] Start: 09-01-2022 End: 09-02-2022 Evaluation and management of inpatient [facility] Start: 08-26-2022 End: 08-27-[address] DIOGENES [...] End: 04-06-2018 Patient encounter procedure CESAR ROWLEY [facility] Start: 09-10-2017 End: 09-11-2017 Patient encounter procedure CESAR ROWLEY [facility] Start: 07-23-2017 End: 07-24-2017 Patient encounter procedure CESAR ROWLEY [facility] Start: 07-23-2017 End: 07-23-2017 Patient encounter procedure KALEB SANDOVAL [facility] Start: 06-13-2017 End: 06-20-2017 Evaluation and management of inpatient ARPAN FARNK Facility:[facility] Procedures Date Procedure Procedure Detail Performing Clinician Start: 07-30-[address] YUAN CASIANO . Comment on above: Performed By: #### P TT, PT #### [facility] [address] [address] [address] Artem Rojas Payers Date Payer Category Payer [employer] ( and others) [id number] 1958 Medicare [id number] 1940 Unknown [id number] 1941 Unknown [id number] 1941 Unknown [id number] 1941 Unknown [id number] 1941 Unknown [id number] 1941 Unknown [id number] Medicare [id number] Progress note 02-18-2023 Note Date & Type Note Facility 02-18-2023 Note [facility] - [facility] Subjective Desean Landry Jr. is a [...] normal ventricular function, fixed inferior defect (prior UT vs. artifact), normal wall motion, no ischemia. [...] Update 07/08/2017: He was admitted recently to [facility] after falling and having rhabdomyolysis. He was hydrated. He did well. This was possibly related to deconditioning and he is getting physical therapy. He will be soon discharged to [place] the [place] [facility]. otherwise he has no issues. Update 02/04/2018: [...] No bleeding on (more content not included)... [facility] Progress note 12-05-2022 Note Date & Type Note Facility 12-05-2022 Note [facility] Consul t Note Reason for visit: [...] is accompanied today by his power of security test engineer. He is tolerating his DOAC with [...] Friends and Family: Twice a week Attends Synagogue Services: More than 4 times per year [...] gums, no snorin (more content not included)... [facility] Progress note 12-05-2022 Note Date & Type Note Facility 12-05-2022 Note Review of Systems All other systems reviewed and are negative. [facility] Progress note 09-10-2022 Note Date & Type Note Facility 09-10-2022 Note Patient seen for wou nd check s/p [employer] pacemaker placement on 09/01/2022 for AF [...] 100 mg BID x7 days. Prescription sent. [facility] Progress note 09-02-2022 Note Date & Type [...] No further OTM concerns at this time. [facility] Progress note 09-02-2022 Note Date & Type Note Facility 09-02-2022 Note Social Work Gang Punch Operator jaspreet et with patient to discuss dc [...] No further OTM needs at this time. [facility] Procedure note 09-01-2022 Note Date & Type Note Facility 09-01-2022 Note SINGLE CHAMBER PACEM JULIUS IMPLANT PROCEDURE NOTE DATE OF PROCEDURE: 09/01/2022 PERFORMING PHYSICIAN: Dr. Damian Wolf RAMP MANAGER: Dr.Chandramohan Camar[place] CONSENT: Patient/POA LOCATION: EP Lab PROCEDURE PERFORMED: 1. Implantation of single chamber PPM ([employer]) 2. Ultrasound guided venous access INDICATIONS: [...] placed over the wire. An active fixation [employer] pacing lead was then delivered through the 6Fsheath to the right ventricle. After confirmation of lead position on orthogonal views ([place] and MALAYSIAN) to confirm septal position, the screw was activated, and the lead was placed in the right ventricular mid cavity towards the septum. After confirmation of good sensing parameters, injury pattern and pacing thresholds, 10V pacing was done and no diaphragmatic stimulation was noted. It was then secured in the pocket using three 1-0 silk sutures. A [employer] pacemaker generator was then burped with [...] x 2 week. Damian Wolf Cardiac Electrophysiology [facility] Clinical Note 09-01-2022 Note Date & Type Note Facility 09-01-2022 Note Patient: Desean crowley Jr. Procedure Information Date/Time: 09/01/22 1330 Procedure: Implant PPM Location: [facility]X [facility]INEER 1 / [facility] (Cath) Providers: Damian Wolf MD Clinical information reviewed: Tobacco Allergies Meds Med Hx Surg Hx Fam Hx Physical Exam Airway Mallampati: II TM distance: >3 FB Neck ROM: full Cardiovascular Dental Pulmonary Abdominal Anesthesia Plan ASA 2 CSE Anesthetic plan and risks discussed with patient and healthcare power of security test engineer. Use of blood products discussed with patient who. Additional Equipment Requests [facility] Summary Purpose Family History No Family History [...] section and content) DATE CREATED AUTHOR 12/08/2017 [facility] DATE CREATED AUTHOR AUTHOR'S ORGANIZ ATION 05/18/2018 [facility] DATE CREATED AUTHOR AUTHOR'S ORGANIZ ATION 01/16/2021 [facility] DATE CREATED AUTHOR AUTHOR'S ORGANIZ ATION 06/06/2021 [facility] DATE CREATED AUTHOR AUTHOR'S ORGANIZ ATION 09/02/2022 [facility] DATE CREATED AUTHOR AUTHOR'S ORGANIZ ATION 08/24/2023 [facility] FOR RECORDS PERTAINING TO PATIENTS WHO ARE [...] BE BASED ON THE PRIMARY CLINICAL RECORDS. [employer] provides no warranty or guarantee of the accuracy or completeness of information in this document.
--- NOTE | 2024-01-14 17:58 | ED_ITS ---
HPI - Extremity Problem General Chief complaint: Extremity Problem, Nontraumatic Stated complaint: POSS CELLULITIS Time Seen by Provider: 01/14/24 17:51 Source: patient Mode of arrival: walk-in Limitations: no limitations History of Present Illness HPI Narrative: Patient is an 83-year-old male who presents to the emergency department with his guardian. She states that the patient was discharged from this facility yesterday for bilateral lower extremity cellulitis. He is currently prescribed cefdinir and doxycycline that was started yesterday. His home health nurse visited today and reported that the left leg appears worse, more swollen and the patient is reporting an increase in pain. He states he almost fell last night and his guardian would like him readmitted to the hospital. He has had no fevers or chills. No vomiting. He has had some drainage from a wound to the left leg. Related Data Home Medications ?Medication ?Instructions ?Recorded ?Confirmed apixaban 5 mg tablet (Eliquis) 5 mg PO Q12H 08/19/23 01/12/24 cholecalciferol (vitamin D3) 50 50 mcg PO DAILY 08/19/23 01/12/24 mcg (2,000 unit) capsule (Vitamin D3) dicyclomine 20 mg tablet 20 mg PO TID 08/19/23 01/12/24 glimepiride 2 mg tablet 2 mg PO DAILY 08/19/23 01/12/24 spironolactone 25 mg tablet 25 mg PO DAILY 08/19/23 01/12/24 aspirin 81 mg chewable tablet 1 tab PO DAILY 01/12/24 01/12/24 simvastatin 20 mg tablet 20 mg PO QPM 01/12/24 01/12/24 Previous Rx's ?Medication ?Instructions ?Recorded cefdinir 300 mg capsule 600 mg (2 x 300 mg) PO DAILY #20 01/13/24 caps doxycycline monohydrate 100 mg 100 mg PO BID 10 days #20 caps 01/13/24 capsule Allergies Allergy/AdvReac Type Severity Reaction Status Date / Time No Known Drug Allergies Allergy Verified 08/19/23 13:53 Review of Systems ROS Constitutional Denies: fever or chills Ears, nose, mouth, and throat Denies: throat pain or nasal congestion Respiratory Denies: shortness of breath Gastrointestinal Denies: nausea or vomiting Musculoskeletal Reports: extremity pain and extremity swelling; Denies: back pain Integumentary/Breast Reports: redness, skin pain and skin swelling; Denies: rash or itching Hematologic/Lymphatic Denies: easy bruising or easy bleeding [facility] Medical History (Updated 01/14/24 @ 18:53 by SARAH Padgett) High cholesterol ?E78.00 - Pure hypercholesterolemia, unspecified (ICD-10) Afib ?I48.91 - Unspecified atrial fibrillation (ICD-10) Cardiac pacemaker ?Z95.0 - Presence of cardiac pacemaker (ICD-10) Edema ?R60.9 - Edema, unspecified (ICD-10) Social History Within the past year, how often did you have a drink containing alcohol: never Within the past year, how often did you have six or more drinks on one occasion: never Score interpretation: A score less than 4 is consistent with normal alcohol consumption. Smoking status: Former smoker Non-prescribed substance use: denies use Previous occupational history: disability Known occupational exposures/hazards: No Are you now , , , , never or living with a partner: never In a typical week, how many times do you talk on the telephone with family, friends, or neighbors: 3 or more times per week How often do you get together with friends or relatives: 3 or more times per week How often do you attend pentecostalism or faith services: never Do you belong to any clubs or organizations such as pentecostalism groups unions, fraternal or athletic groups, or school groups: no Total score: 1 Score interpretation: A score of less than or equal to 1 indicates the most socially isolated. Little interest or pleasure in doing things: not at all Feeling down, depressed, or hopeless: not at all Feel stressed/tense/nervous/anxious/difficulty sleeping: not at all Due to disability, difficulty making decisions: No Do you think of yourself as: straight/heterosexual Gender Identity: male Exam Narrative Exam Narrative: Gen.: Awake, alert, in no distress Head: Normocephalic, atraumatic ENT: Moist mucous membranes Respiratory: No respiratory distress Extremities: Peripheral vascular changes to the lower extremities in the anterior tibias, right lower extremity with mild swelling and faint erythema to the anterior tibia. Left lower extremity with moderate swelling distal to the knee, moderate redness with mild redness extending beyond the skin marker to the left calf. Small scabbed open wound with serous drainage to the left lateral calf. 2+ DP pulses bilaterally Psych: Normal mood and affect Neuro: No focal neuro deficit Skin: Warm, dry, intact Constitutional Vital Signs, click to edit/add: Last Vital Signs Temp 98.2 F 01/14/24 17:40 Pulse 57 L 01/14/24 17:40 Resp 18 01/14/24 17:40 BP 166/70 H 01/14/24 17:40 Pulse Ox 98 01/14/24 17:40 O2 Del Method Room Air 01/14/24 17:40 Course Vital Signs Vital signs: Vital Signs Temperature 98.2 F 01/14/24 17:40 Pulse Rate 57 L 01/14/24 17:40 Respiratory Rate 18 01/14/24 17:40 Blood Pressure 166/70 H 01/14/24 17:40 Pulse Oximetry 98 01/14/24 17:40 Oxygen Delivery Method Room Air 01/14/24 17:40 Temperature 98.2 F 01/14/24 17:40 Pulse Rate 57 L 01/14/24 17:40 Respiratory Rate 18 01/14/24 17:40 Blood Pressure 166/70 H 01/14/24 17:40 Pulse Oximetry 98 01/14/24 17:40 Oxygen Delivery Method Room Air 01/14/24 17:40 MDM - Extremity (Nontraumatic) MDM Narrative Medical decision making narrative: Patient given a Percocet for pain, lab studies show white blood cell count is within normal limits but uptrending as well as inflammatory markers. I did speak with Dr. Garcia on arrival to the emergency department, he expressed that the patient may not need to be readmitted and can follow-up as an outpatient. Patient was reevaluated by Dr. Beck, guardian is very concerned about the patient having an increase in pain, increase in swelling and drainage from the left leg and has not been improving. Patient will be readmitted for failure of outpatient treatment, contacted hospitalist service. Stable at time of admission. IV Ancef and doxycycline given. SHARED APC VISIT, PHYSICIAN ATTESTATION: [id number] I performed a substantive part of the MDM during the patient?s E/M visit. I personally evaluated and examined the patient. I personally made or approved the documented management plan and acknowledge its risk of complications. Medical Records Attestation: I reviewed the patient's medical records. Lab Data Attestation: I reviewed the patient's lab results. Labs: Lab Results 01/14/24 Range/Units 17:47 WBC 10.7 (4.0-11.0) 10^3/uL RBC 4.52 L (4.70-6.10) 10^6/uL Hgb 14.3 (14.0-18.0) g/dL Hct 43.3 (42.0-54.0) % MCV 95.8 H (80.0-94.0) fL MCH 31.6 (25.9-34.0) pg MCHC 33.0 (29.9-35.2) g/dL RDW 13.5 (11.0-15.0) % Plt Count 221 (150-450) 10^3/uL MPV 10.3 (9.5-13.5) fL Neut % (Auto) 68.1 (43.0-75.0) % Lymph % (Auto) 18.7 L (20.5-60.0) % Hidalgo % (Auto) 10.3 (1.7-12.0) % Eos % (Auto) 1.8 (0.9-7.0) % Baso % (Auto) 0.9 (0.2-2.0) % Neut # (Auto) 7.3 H (1.4-6.5) 10^3/uL Lymph # (Auto) 2.0 (1.2-3.8) 10^3/uL Hidalgo # (Auto) 1.1 H (0.3-0.8) 10^3/uL Eos # (Auto) 0.2 (0.0-0.7) 10^3/uL Baso # (Auto) 0.1 (0.0-0.1) 10^3/uL Abs Immat Gran (auto) 0.02 (0.00-0.03) 10^3/uL Imm/Tot Granulo (auto) 0.2 (0.0-0.5) % ESR 61 H (<=20) mm/hr VBG pH 7.350 (7.330-7.430) VBG pCO2 49.9 (40.0-52.0) mmHg Sodium 140 (136-145) mmol/L Potassium 4.2 (3.5-5.1) mmol/L Chloride 104 (98-107) mmol/L Carbon Dioxide 28.4 (21.0-32.0) mmol/L Anion Gap 11.8 BUN 15.0 (7.0-18.0) mg/dL Creatinine 1.20 (0.70-1.30) mg/dL Est GFR ( Amer) >60 (>=60) Est GFR (Non-Af Amer) 58 L (>=60) BUN/Creatinine Ratio 12.5 Glucose 121 H (74-106) mg/dL Lactate 2.0 (0.4-2.0) mmol/L Calcium 9.3 (8.5-10.1) mg/dL Total Bilirubin 0.5 (0.2-1.0) mg/dL AST 14 L (15-37) U/L ALT 16 (16-63) U/L Alkaline Phosphatase 90 (46-116) U/L C-Reactive Protein 2.29 H (<=0.50) mg/dL NT-Pro-B Natriuret Pep 859.0 (<=1800.0) pg/mL Total Protein 6.9 (6.4-8.2) g/dL Albumin 3.4 (3.4-5.0) g/dL Globulin 3.5 g/dL Albumin/Globulin Ratio 1.0 Discharge Plan Discharge Chief Complaint: Extremity Problem, Nontraumatic Patient Disposition: Admitted As Inpatient Time of Disposition Decision: 19:00 Prescriptions / Home Meds: No Action spironolactone 25 mg tablet 25 mg PO DAILY glimepiride 2 mg tablet 2 mg PO DAILY dicyclomine 20 mg tablet 20 mg PO TID cholecalciferol (vitamin D3) [Vitamin D3] 50 mcg (2,000 unit) capsule 50 mcg PO DAILY Eliquis 5 mg tablet 5 mg PO Q12H aspirin 81 mg tablet,chewable 1 tab PO DAILY simvastatin 20 mg tablet 20 mg PO QPM doxycycline monohydrate 100 mg capsule 100 mg PO BID 10 Days Qty: 20 0RF cefdinir 300 mg capsule 600 mg PO DAILY Qty: 20 0RF Print Language: Nigerian Referrals: Vahid Garcia MD [Primary Care Provider] - 1 week
[2024-01-14 18:02] LABS: PCO2 VBG 49.9 mmHg (40.0-52.0)
[2024-01-14 18:04] LABS: Basophils Absolute Auto 0.1 10^3/uL (0.0-0.1); Basophils Percent Auto 0.9 % (0.2-2.0); Eosinophils Absolute Auto 0.2 10^3/uL (0.0-0.7); Eosinophils Percent Auto 1.8 % (0.9-7.0); Hematocrit 43.3 % (42.0-54.0); Hemoglobin 14.3 g/dL (14.0-18.0); Immature Granulocytes Abs Auto 0.02 10^3/uL (0.00-0.03); Immature Granulocytes Pct Auto 0.2 % (0.0-0.5); Lymphocytes Percent Auto 18.7 % (20.5-60.0); Mean Corpuscular Hemoglobin 31.6 pg (25.9-34.0); Mean Corpuscular Volume 95.8 fL (80.0-94.0); Mean Platelet Volume 10.3 fL (9.5-13.5); Monocytes Absolute Auto 1.1 10^3/uL (0.3-0.8); Monocytes Percent Auto 10.3 % (1.7-12.0); Neutrophils Absolute Auto 7.3 10^3/uL (1.4-6.5); Neutrophils Percent Auto 68.1 % (43.0-75.0); Platelet Count 221 10^3/uL (150-450); Red Blood Count 4.52 10^6/uL (4.70-6.10); Red Cell Distribution Width 13.5 % (11.0-15.0); White Blood Count 10.7 10^3/uL (4.0-11.0)
[2024-01-14] MEDS: OXYCODONE HCL/ACETAMINOPHEN 5MG/325MG 1 TAB PO (18:10)
[2024-01-14 18:12] LABS: Erythrocyte Sedimentation Rate 61 mm/hr (<=20)
[2024-01-14 18:23] LABS: Alanine Aminotransferase 16 U/L (16-63); Albumin Level 3.4 g/dL (3.4-5.0); Alkaline Phosphatase 90 U/L (46-116); Anion Gap 11.8; Aspartate Amino Transferase 14 U/L (15-37); BUN Creatinine Ratio 12.5; Bilirubin Total 0.5 mg/dL (0.2-1.0); C Reactive Protein 2.29 mg/dL (<=0.50); Calcium 9.3 mg/dL (8.5-10.1); Carbon Dioxide 28.4 mmol/L (21.0-32.0); Chloride 104 mmol/L (98-107); Estimated GFR (African America >60 (>=60); Estimated GFR (Non-African Ame 58 (>=60); Globulin 3.5 g/dL; Glucose 121 mg/dL (74-106); Potassium 4.2 mmol/L (3.5-5.1); Sodium 140 mmol/L (136-145); Total Protein 6.9 g/dL (6.4-8.2)
[2024-01-14] MEDS: CEFAZOLIN SODIUM/DEXTROSE,ISO 2 GM/50 ML PIGGYBACK IV (18:53)
[2024-01-14 19:38] VITALS: BP 128/78; PULSE 58; O2SAT 97
[2024-01-14] MEDS: DOXYCYCLINE HYCLATE 100 MG in 0.9 % SODIUM CHLORIDE 100 ML IV (19:40)
--- OUTSIDE RECORDS SUMMARY | 2024-01-14 20:27 | XMS_ITS ---
Patient Summarization (C-CDA 2.1 CCD) Created on: January 14, 2024 DESEAN LANDRY JR. : 1940 Sex: Male Author Organization Sample organization Care Team Providers Care Retention Representative Name Role Phone ARPAN CAMACHO Unavailable Unavailable SAHRA GILMORE Unavailable Unavailable HOY, DIOGENES Unavailable Unavailable FEDERMAN, DIOGENES Unavailable Unavailable LORI, RENDELL Unavailable Unavailable LORI, RENDELL Unavailable Unavailable LOY MORAHEL ([employer]) Unavailable Unavailable LORI, RENDELL Unavailable Unavailable LORI, [...] Unavailable HOY ., DR SHETTY Admitting Unavailable OH ., DR SHETTY Attending Unavailable HOY ., DR SHETTY Consulting Unavailable OH ., DR SHETTY Primary Care Unavailable DAMIAN WOLF Referring Unavailable MYAH RUSSELL Attending Unavailable AYDE WAGONER Attending Unavailable DRAGAN PEPPER Attending Unavailable DAMIAN WOLF Admitting Unavailable THU FENTON Attending Unavailable DAMIAN WOLF Referring Unavailable DAMIAN WOLF Referring Unavailable Encounters Encounter Date Encounter Type Care Provider Facility Start: 02-18-2023 End: 02-18-2023 ambulatory DRAGAN PEPPER [facility] Start: 12-05-2022 End: 12-05-2022 ambulatory AYDE WAGONER [facility] Start: 09-10-2022 End: 09-10-2022 ambulatory MYAH RUSSELL [facility] Start: 09-02-2022 Evaluation and management of inpatient DAMIAN [facility] Start: 09-01-2022 Evaluation and management of inpatient [facility] Start: 09-01-2022 ambulatory [facility] Start: 09-01-2022 End: 09-02-2022 Evaluation and management of inpatient DAMIAN [facility] Start: 08-26-2022 End: 08-27-[address] DIOGENES CASIANO . Facility:[facility] Start: 08-20-2022 End: 08-20-[address] DIOGENES CASIANO . Facility:[facility] Start: 07-30-2022 End: 07-31-[address] DIOGENES CASIANO . Facility:[facility] Start: 03-02-2022 End: 03-03-[address] SRINATH MCKEON Facility:[facility] Start: 02-19-2022 End: 02-20-[address] DIOGENES CASIANO . Facility:[facility] Start: 01-15-2022 End: 01-16-[address] DIOGENES CASIANO . Facility:[facility] Start: 04-06-2018 End: 04-06-2018 Patient encounter procedure CESAR ROWLEY [facility] Start: 09-10-2017 End: 09-11-2017 Patient encounter procedure CESAR ROWLEY [facility] Start: 07-23-2017 End: 07-24-2017 Patient encounter procedure CESAR ROWLEY [facility] Start: 07-23-2017 End: 07-23-2017 Patient encounter procedure KALEB SANDOVLA [facility] Start: 06-13-2017 End: 06-20-2017 Evaluation and management of inpatient ARPAN FRANK Facility:[facility] Payers Date Payer Category Payer [employer] ( and others) [id number] 1958 Medicare [id number] 1940 Unknown [id number] 1940 Unknown [id number] 1940 Unknown [id number] 1940 Unknown [id number] 1940 Unknown [id number] 1940 Unknown [id number] Medicare [id number] Problems Active Problems Problem Classification Problem Date [...] Onset: 03-04-2022 Episodic Other aftercare (1 source) 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 Comment on above: Performed By: #### P TT, PT #### [facility] [address] [place] [address] Dr. Artem Rojas Results Test Name Value Interpretation Reference Range Facility Orders Onlyon 08-19-2023 Orders Only [id number] Jordin Landry Jr. 1940 Date Provider Department Center 08/19/2023 DAMIAN JOSEPH [facility] ERIKA Jeong Family History Problem Relation Age of Onset Cancer Mother Family Status - Relation Status Age at Mother [facility] Office Visiton 02-18-2023 Follow-up visit [id number] Jordin Landry Jr. 1940 [facility] Provider Department Center 02/18/2023 DRAGAN BALDWIN ERIKA [facility] Family History Problem Relation Age of Onset Cancer Mother Family Status - Relation Status Age at Mother Level of Service:87803 NE OFFICE/OUTPATIENT ESTABLISHED LOW MDM 20-29 MIN Reason for Visit and Comments: Follow-up [686401] - Pt is here f/U [facility] Office Visiton 12-05-2022 Follow-up visit [id number] Jordin Landry Jr. 1940 Date Provider Department Center 12/05/2022 AYDE ZHENG ERIKA [facility] Family History Problem Relation Age of Onset Cancer Mother Family Status - Relation Status Age at Mother Level of Service:02279 NE OFFICE/OUTPATIENT ESTABLISHED MOD MDM 30-39 MIN Reason for Visit and Comments: Follow-up [575337] - Pt is her for 3 month F/U [facility] Office Visiton 09-10-2022 Follow-up visit [id number] Jordin Landry Jr. 1940 M Date Provider Department Center 09/10/2022 [id number] RUSSELL [facility] Family History Problem Relation Age of Onset Cancer Mother Family Status - Relation Status Age at Mother Level of Service:99755 NE POSTOP FOLLOW UP VISIT RELATED TO ORIGINAL PX [facility] 30on 09-02-2022 30 The patient is Moder ately Stable - Low risk of patient condition declining or worsening The patient's goals for the shift include HOME The clinical goals for the shift include stable vs Over the shift, the patient did make progress toward the following goals; Problem: Pain - Adult Goal: Verbalizes/displays adequate comfort level or baseline comfort level Outcome: Progressing Flowsheets (Taken 09/01/2022 2100) Verbalizes/displays adequate comfort level or baseline comfort [...] document skin integrity Normal [facility] 30 The patient is Moder ately Unstable - Medium risk of patient condition declining or worsening The patient's goals for the shift include Pain Control The clinical goals for the shift include stable vs Normal [facility] DSon 09-02-2022 DS Admission Admitted 09/01/2022 [...] Hos Test Results Pending At Discharge none [facility] NURSNOTEon 09-02-2022 ALMA RN spoke to Chasity (guardian) in regards to DC orders. Chasity is able to pick patient up around 1700 today. Patient is aware. [facility] ALMA AVS reviewed with nikole gordon and guardian Chasity. No questions or concerns at this time. AVS signed by guardian. Copy of AVS placed in bedside chart. [facility] HPon 09-01-2022 [facility] Electrophysiology Consult Note Reason for [...] is accompanied today by his power of clerk of scales. He is tolerating his DOAC with no [...] rhonchi Cardiovascular (more content not included)... Normal [facility] Electrophysiology Consult Note Reason for visit: [facility] HPI: Desean Landry is a [...] is accompanied today by his power of clerk of scales. He is tolerating his DOAC with no [...] Neck: suppl (more content not included)... Normal [facility] NURSNOTEon 09-01-2022 NURSNOTE CHG wipe prep done a nd iodine nasal swab prep done per protocol for PPM implant. Normal [facility] Orders Onlyon 09-01-2022 Orders Only [id number] Jordin Landry Jr. 1940 M Date Provider Department Center 09/01/2022 [facility] [place] [facility] Family History Problem Relation Age of Onset Cancer Mother Family Status - Relation Status Age at Mother Normal [facility] CBC AUTO DIFFon 08-26-2022 BASO # 0.1 103/ul Normal 0.0-0.1 [facility] Comment on above: Performed By: #### CBC #### [facility] [address] [address] [address] Artem Rojas Basophils/100 WBC (Bld) 1.0 % Normal 0.2-2.0 [facility] Comment on above: Performed By: #### CBC #### [facility] [address] [place] [address] Dr. Artem Rojas EO # 0.2 103/ul Normal 0.0-0.7 [facility] Comment on above: Performed By: #### CBC #### [facility] [address] [place] [address] Dr. Artem Rojas Eosinophils/100 WBC (Bld) 2.0 % Normal 0.9-7.0 [facility] Comment on above: Performed By: #### CBC #### [facility] [address] [place] [address] Dr. Artem Rojas Erythrocyte distribution width (RBC) [Ratio] 13.1 % Normal 11.0-15.0 [facility] Comment on above: Performed By: #### CBC #### [facility] [address] [place] [address] Dr. Artem Rojas Hematocrit (Bld) [Volume fraction] 43.8 % Normal 42.0-54.0 [facility] Comment on above: Performed By: #### CBC #### [facility] [address] [place] [address] Dr. Artem oRjas Hemoglobin (Bld) [Mass/Vol] 14.5 g/dL Normal 14.0-18.0 [facility] Comment on above: Performed By: #### CBC #### [facility] [address] [place] [address] Dr. Artem Rojsa IG # 0.07 10e3/ul Critically high 0.00-0.03 [facility] Comment on above: Performed By: #### CBC #### [facility] [address] [place] [address] Dr. Artem Rojas IG % 0.8 % Critically high 0.0-0.5 [facility] Comment on above: Performed By: #### CBC #### [facility] [address] [place] [address] Dr. Artem Rojas LYMPH # 1.8 103/ul Normal 1.2-3.8 [facility] Comment on above: Performed By: #### CBC #### [facility] [address] [place] [address] Dr. Artem Rojas Lymphocytes/100 WBC (Bld) 20.0 % Critically low 20.5-60.0 [facility] Comment on above: Performed By: #### CBC #### [facility] [address] [place] [address] Dr. Artem Rojas MANUAL DIFF REQ NO Normal [facility] Comment on above: Performed By: #### CBC #### [facility] [address] [place] [address] Dr. Artem Rojas MCH (RBC) [Entitic mass] 30.0 pg Normal 25.9-34.0 [facility] Comment on above: Performed By: #### CBC #### [facility] [address] [place] [address] Dr. Artem Rojas MCHC (RBC) [Mass/Vol] 33.1 g/dL Normal 29.9-35.2 [facility] Comment on above: Performed By: #### CBC #### [facility] [address] [place] [address] Dr. Artem Rojas MCV (RBC) [Entitic vol] 90.7 fL Normal 80.0-94.0 [facility] Comment on above: Performed By: #### CBC #### [facility] [address] [place] [address] Dr. Artem Rojas MONO # 0.8 103/ul Normal 0.3-0.8 [facility] Comment on above: Performed By: #### CBC #### [facility] [address] [place] [address] Dr. Artem Rojas Monocytes/100 WBC (Bld) 8.7 % Normal 1.7-12.0 [facility] Comment on above: Performed By: #### CBC #### [facility] [address] [place] [address] Dr. Artem Rojas NEUT # 6.1 103/ul Normal 1.4-6.5 [facility] Comment on above: Performed By: #### CBC #### [facility] [address] [place] [address] Dr. Artem Rojas Neutrophils/100 WBC (Bld) 67.5 % Normal 43.0-75.0 [facility] Comment on above: Performed By: #### CBC #### [facility] [address] [place] [address] Dr. Artem Rojas Platelet mean volume (Bld) [Entitic vol] 9.7 fL Normal 9.5-13.5 [facility] Comment on above: Performed By: #### CBC #### [facility] [address] [place] [address] Dr. Artem Rojas PLT 333 103/ul Normal 150-450 [facility] Comment on above: Performed By: #### CBC #### [facility] [address] [place] [address] Dr. Artem Rojas RBC 4.83 106/ul Normal 4.70-6.10 [facility] Comment on above: Performed By: #### CBC #### [facility] [address] [place] [address] Dr. Artem Rojas WBC 9.0 103/ul Normal 4.0-11.0 [facility] Comment on above: Performed By: #### CBC #### [facility] [address] [place] [address] Dr. Artem Rojas PROF CHEM 8 (BAS METB)on Anion gap [Moles/Vol] 9.4 mmol/L Normal [facility] Comment on above: Performed By: #### PTT, PT #### [facility] [address] [place] [address] Dr. Artem Rojas Calcium [Mass/Vol] 9.4 mg/dL Normal 8.5-10.1 [facility] Comment on above: Performed By: #### PTT, PT #### [facility] [address] [place] [address] Dr. Artem Rojas Chloride [Moles/Vol] 105 mmol/L Normal 98-107 [facility] Comment on above: Performed By: #### PTT, PT #### [facility] [address] [place] [address] Dr. Artem Rojas CO2 [Moles/Vol] 29.3 mmol/L Normal 21.0-32.0 [facility] Comment on above: Performed By: #### PTT, PT #### [facility] [address] [place] [address] Dr. Artem Rojas Creatinine [Mass/Vol] 1.06 mg/dL Normal 0.70-1.30 [facility] Comment on above: Performed By: #### PTT, PT #### [facility] [address] [place] [address] Dr. Artem Rojas EGFR-AF SOUTH AFRICAN >60 Normal >=60 [facility] Comment on above: Performed By: #### PTT, PT #### [facility] [address] [place] [address] Dr. Artem Rojas EGFR-NON AF SOUTH AFRICAN >60 Normal >=60 [facility] Comment on above: Performed By: #### PTT, PT #### [facility] [address] [place] [address] Dr. Artem Rojas Glucose [Mass/Vol] 125 mg/dL Critically high 74-106 [facility] Comment on above: Performed By: #### PTT, PT #### [facility] [address] [place] [address] Dr. Artem Rojas Potassium [Moles/Vol] 4.3 mmol/L Normal 3.5-5.1 [facility] Comment on above: Performed By: #### PTT, PT #### [facility] [address] [place] [address] Dr. Artem Rojas Sodium [Moles/Vol] 139 mmol/L Normal 136-145 [facility] Comment on above: Performed By: #### PTT, PT #### [facility] [address] [place] [address] Dr. Artem Rojas Urea nitrogen [Mass/Vol] 20.0 mg/dL Critically high 7.0-18.0 [facility] Comment on above: Performed By: #### PTT, PT #### [facility] [address] [place] [address] Dr. Artem Rojas Urea nitrogen/Creatin ine [Mass ratio] 18.9 mg/mg Normal [facility] Comment on above: Performed By: #### PTT, PT #### [facility] [address] [place], [place] [address] Dr. Artem Rojas Orders Onlyon 08-25-2022 Orders Only [id number] Jordin Landry . 1940 M Date Provider Department Center 08/25/2022 [facility] [place] [facility] Family History Problem Relation Age of Onset Cancer Mother Family Status - Relation Status Age at Mother Normal [facility]on SARS-CoV-2 (COVID-19) RNA MONICA+probe Ql (Unsp spec) Not detected Normal NOT DETECTED [facility] Comment on above: Result Comment: When [...] for this test is supported by the Mask Designer of Health and Human Service's declaration that [...] Performed By: #### P TT, PT #### [facility] [address] [place], [place] [address] Dr. Artem Rojas INFLUENZA A AND B AGon 08-20 INFLUANEGH SEE BELOW Normal [facility] Comment on above: Result Comment: Negative for Flu A prote in angiten. Infection due to Flu A cannot be ruled out. Flu A angiten in the sample may be below the detection limit of the test. Performed By: #### P TT, PT #### [facility] [address] [place] [address] Dr. Artem Rojas [facility] SEE BELOW Normal [facility] Comment on above: Result Comment: Negative for Flu B prote in antigen. Infection due to Flu B cannot be ruled out. Flu B antigen in the sample may be below the detection limit of the test. Performed By: #### P TT, PT #### [facility] [address] [place] [address] Dr. Artem Rojas INFLUENZA A AG Negative Normal NEGATIVE SEE COMMENT [facility] Comment on above: Performed By: #### PTT, PT #### [facility] [address] [place] [address] Dr. Artem Rojas INFLUENZA B AG Negative Normal NEGATIVE SEE COMMENT [facility] Comment on above: Performed By: #### PTT, PT #### [facility] [address] [place] [address] Dr. Artem Rojas INSULINon 07-31-2022 Insulin 16.3 uIU/mL Normal 2.6-24.9 [facility] Comment on above: Performed By: #### PTT, PT #### [facility] [address] [place] [address] Dr. Artem Rojas BNPon 07-30-2022 Natriuretic peptide B (Bld) [Mass/Vol] 1826.0 pg/mL Critically high <=1,800.0 [facility] Comment on above: Performed By: #### CMP, BNP, URIC, TSH, T7, LIPID #### [facility] [address] [place] [address] Dr. Artem Rojas CBC AUTO DIFFon 07-30-2022 BASO # 0.1 103/ul Normal 0.0-0.1 [facility] Comment on above: Performed By: #### PTT, PT #### [facility] [address] [place] [address] Dr. Artem Rojas Basophils/100 WBC (Bld) 1.0 % Normal 0.2-2.0 [facility] Comment on above: Performed By: #### PTT, PT #### [facility] [address] [place] [address] Dr. Artem Rojas EO # 0.2 103/ul Normal 0.0-0.7 [facility] Comment on above: Performed By: #### PTT, PT #### [facility] [address] [place] [address] Dr. Artem Rojas Eosinophils/100 WBC (Bld) 2.4 % Normal 0.9-7.0 [facility] Comment on above: Performed By: #### PTT, PT #### [facility] [address] [place] [address] Dr. Artem Rojas Erythrocyte distribution width (RBC) [Ratio] 13.8 % Normal 11.0-15.0 [facility] Comment on above: Performed By: #### PTT, PT #### [facility] [address] [place] [address] Dr. Artem Rojas Hematocrit (Bld) [Volume fraction] 44.1 % Normal 42.0-54.0 [facility] Comment on above: Performed By: #### PTT, PT #### [facility] [address] [place] [address] Dr. Artem Rojas Hemoglobin (Bld) [Mass/Vol] 14.5 g/dL Normal 14.0-18.0 [facility] Comment on above: Performed By: #### PTT, PT #### [facility] [address] [place] [address] Dr. Artem Rojas IG # 0.02 10e3/ul Normal 0.00-0.03 [facility] Comment on above: Performed By: #### PTT, PT #### [facility] [address] [place] [address] Dr. Artem Rojas IG % 0.2 % Normal 0.0-0.5 [facility] Comment on above: Performed By: #### PTT, PT #### [facility] [address] [place] [address] Dr. Artem Rojas LYMPH # 2.1 103/ul Normal 1.2-3.8 [facility] Comment on above: Performed By: #### PTT, PT #### [facility] [address] [place] [address] Dr. Artem Rojas Lymphocytes/100 WBC (Bld) 24.3 % Normal 20.5-60.0 [facility] Comment on above: Performed By: #### PTT, PT #### [facility] [address] [place] [address] Dr. Artem Rojas MANUAL DIFF REQ NO Normal [facility] Comment on above: Performed By: #### PTT, PT #### [facility] [address] [place] [address] Dr. Artem Rojas MCH (RBC) [Entitic mass] 30.3 pg Normal 25.9-34.0 [facility] Comment on above: Performed By: #### PTT, PT #### [facility] [address] [place] [address] Dr. Artem Rojas MCHC (RBC) [Mass/Vol] 32.9 g/dL Normal 29.9-35.2 [facility] Comment on above: Performed By: #### PTT, PT #### [facility] [address] [place] [address] Dr. Artem Rojas MCV (RBC) [Entitic vol] 92.1 fL Normal 80.0-94.0 [facility] Comment on above: Performed By: #### PTT, PT #### [facility] [address] [place] [address] Dr. Artem Rojas MONO # 0.8 103/ul Normal 0.3-0.8 [facility] Comment on above: Performed By: #### PTT, PT #### [facility] [address] [place] [address] Dr. Artem Rojas Monocytes/100 WBC (Bld) 9.0 % Normal 1.7-12.0 [facility] Comment on above: Performed By: #### PTT, PT #### [facility] [address] [place] [address] Dr. Artem Rojas NEUT # 5.6 103/ul Normal 1.4-6.5 [facility] Comment on above: Performed By: #### PTT, PT #### [facility] [address] [place] [address] Dr. Artem Rojas Neutrophils/100 WBC (Bld) 63.1 % Normal 43.0-75.0 [facility] Comment on above: Performed By: #### PTT, PT #### [facility] [address] [place] [address] Dr. Artem Rojas Platelet mean volume (Bld) [Entitic vol] 10.0 fL Normal 9.5-13.5 [facility] Comment on above: Performed By: #### PTT, PT #### [facility] [address] [place] [address] Dr. Artem Rojas PLT 193 103/ul Normal 150-450 [facility] Comment on above: Performed By: #### PTT, PT #### [facility] [address] [place] [address] Dr. Artem Rojas RBC 4.79 106/ul Normal 4.70-6.10 [facility] Comment on above: Performed By: #### PTT, PT #### [facility] [address] [place] [address] Dr. Artem Rojas WBC 8.8 103/ul Normal 4.0-11.0 [facility] Comment on above: Performed By: #### PTT, PT #### [facility] [address] [place] [address] Dr. Artem Rojas FREE THYROXINE INDEX T7on FTI 2.52 Normal 1.30-4.50 [facility] Comment on above: Performed By: #### CMP, BNP, URIC, TSH, T7, LIPID #### [facility] [address] [place] [address] Dr. Artem Rojas T3U 35.0 % Normal 33.0-40.0 [facility] Comment on above: Performed By: #### CMP, BNP, URIC, TSH, T7, LIPID #### [facility] [address] [place] [address] Dr. Artem Rojas T4 [Mass/Vol] 7.20 ug/dL Normal 4.50-12.10 [facility] Comment on above: Performed By: #### CMP, BNP, URIC, TSH, T7, LIPID #### [facility] [address] [place] [address] Dr. Artem Rojas GLYCOHEMOGLOBIN A1Con 2022 ADA RECOMMENDATION SEE BELOW Normal [facility] Comment on above: Result Comment: ADA RECOMMENDED LIMIT 4. 0 - 6.0 ADA THERAPEUTIC TARGET < 7.0 ACTION SUGGESTED > 7.0 Performed By: #### A 1C #### [facility] [address] [place] [address] Dr. Artem Rojas Glucose [Mass/Vol] 128 mg/dL Normal [facility] Comment on above: Performed By: #### A1C #### [facility] [address] [place] [address] Dr. Artem Rojas HbA1c (Bld) [Mass fraction] 6.1 % Normal 4.5-6.2 [facility] Comment on above: Performed By: #### A1C #### [facility] [address] [place] [address] Dr. Artem Rojas LIPID PROFILEon 07-30-2022 CHOL-HDL RATIO NORM SEE BELOW Normal [facility] Comment on above: Result Comment: 3.3 - 4.4 LOW RISK 4.4 - 7.1 AVERAGE RISK 7.1 - 11.0 MODERATE RISK >11.0 HIGH RISK Performed By: #### C MP, BNP, URIC, TSH, T7, LIPID #### [facility] [address] [place] [address] Dr. Artem Rojas Cholesterol [Mass/Vol] 157 mg/dL Normal <=200 [facility] Comment on above: Performed By: #### CMP, BNP, URIC, TSH, T7, LIPID #### [facility] [address] [place] [address] Dr. Artem Rojas Cholesterol in HDL [Mass/Vol] 51 mg/dL Normal 40-60 [facility] Comment on above: Performed By: #### CMP, BNP, URIC, TSH, T7, LIPID #### [facility] [address] [place] [address] Dr. Artem Rojas Cholesterol in LDL [Mass/Vol] 86.6 mg/dL Normal [facility] Comment on above: Performed By: #### CMP, BNP, URIC, TSH, T7, LIPID #### [facility] [address] [address] [address] Artem Rojas Cholesterol.tota l/Cholesterol in HDL [Mass ratio] 3.1 {ratio} Normal [facility] Comment on above: Performed By: #### CMP, BNP, URIC, TSH, T7, LIPID #### [facility] [address] [address] [address] Artem Rojas HDL NORMAL > or = 60 mg/dl - LO W CARDIOVASCULAR RISK <40 mg/dl - HIGH CARDIOVASCULAR RISK Normal [facility] Comment on above: Performed By: #### CMP, BNP, URIC, TSH, T7, LIPID #### [facility] [address] [address] [address] Artem Rojas LDL CALC NORMAL SEE BELOW Normal [facility] Comment on above: Result Comment: <100 mg/dl OPTIMAL 100 - 129 mg/dl NEAR OR ABOVE OPTIMAL 130 - 159 mg/dl BORDERLINE HIGH 160 - 189 mg/dl HIGH >190 mg/dl VERY HIGH Performed By: #### C MP, BNP, URIC, TSH, T7, LIPID #### [facility] [address] [address] [address] Artem Rojas Triglyceride [Mass/Vol] 97 mg/dL Normal <=150 [facility] Comment on above: Performed By: #### CMP, BNP, URIC, TSH, T7, LIPID #### [facility] [address] [address] [address] Artem Rojas VLDL CALC 19.4 mg/dL Normal [facility] Comment on above: Performed By: #### CMP, BNP, URIC, TSH, T7, LIPID #### [facility] [address] [address] [address] Artem Rojas PROF 14(COMP METB)on 023 Albumin [Mass/Vol] 3.5 g/dL Normal 3.4-5.0 [facility] Comment on above: Performed By: #### CMP, BNP, URIC, TSH, T7, LIPID #### [facility] [address] [address] [address] Artem Rojas Albumin/Globulin [Mass ratio] 1.1 {ratio} Normal [facility] Comment on above: Performed By: #### CMP, BNP, URIC, TSH, T7, LIPID #### [facility] [address] [place] [address] Dr. Artem Rojas ALP [Catalytic activity/Vol] 70 U/L Normal 46-116 [facility] Comment on above: Performed By: #### CMP, BNP, URIC, TSH, T7, LIPID #### [facility] [address] [place] [address] Dr. Artem Rojas ALT [Catalytic activity/Vol] 19 U/L Normal 16-63 [facility] Comment on above: Performed By: #### CMP, BNP, URIC, TSH, T7, LIPID #### [facility] [address] [place] [address] Dr. Artem Rojas Anion gap [Moles/Vol] 11.7 mmol/L Normal [facility] Comment on above: Performed By: #### CMP, BNP, URIC, TSH, T7, LIPID #### [facility] [address] [place] [address] Dr. Artem Rojas AST [Catalytic activity/Vol] 18 U/L Normal 15-37 [facility] Comment on above: Performed By: #### CMP, BNP, URIC, TSH, T7, LIPID #### [facility] [address] [place] [address] Dr. Artem Rojas Bilirubin [Mass/Vol] 0.5 mg/dL Normal 0.2-1.0 [facility] Comment on above: Performed By: #### CMP, BNP, URIC, TSH, T7, LIPID #### [facility] [address] [place] [address] Dr. Artem Rojas Calcium [Mass/Vol] 9.3 mg/dL Normal 8.5-10.1 [facility] Comment on above: Performed By: #### CMP, BNP, URIC, TSH, T7, LIPID #### [facility] [address] [place] [address] Dr. Artem Rojas Chloride [Moles/Vol] 105 mmol/L Normal 98-107 [facility] Comment on above: Performed By: #### CMP, BNP, URIC, TSH, T7, LIPID #### [facility] [address] [place] [address] Dr. Artem Rojas CO2 [Moles/Vol] 29.7 mmol/L Normal 21.0-32.0 [facility] Comment on above: Performed By: #### CMP, BNP, URIC, TSH, T7, LIPID #### [facility] [address] [place] [address] Dr. Artem Rojas Creatinine [Mass/Vol] 0.87 mg/dL Normal 0.70-1.30 [facility] Comment on above: Performed By: #### CMP, BNP, URIC, TSH, T7, LIPID #### [facility] [address] [place] [address] Dr. Artem Rojas EGFR-AF SOUTH AFRICAN >60 Normal >=60 [facility] Comment on above: Performed By: #### CMP, BNP, URIC, TSH, T7, LIPID #### [facility] [address] [place] [address] Dr. Artem Rojas EGFR-NON AF S[place] AFRICAN >60 Normal >=60 [facility] Comment on above: Performed By: #### CMP, BNP, URIC, TSH, T7, LIPID #### [facility] [address] [place] [address] Dr. Artem Rojas Globulin (S) [Mass/Vol] 3.3 g/dL Normal [facility] Comment on above: Performed By: #### CMP, BNP, URIC, TSH, T7, LIPID #### [facility] [address] [place] [address] Dr. Artem Rojas Glucose [Mass/Vol] 118 mg/dL Critically high 74-106 [facility] Comment on above: Performed By: #### CMP, BNP, URIC, TSH, T7, LIPID #### [facility] [address] [place] [address] Dr. Artem Rojas Potassium [Moles/Vol] 4.4 mmol/L Normal 3.5-5.1 [facility] Comment on above: Performed By: #### CMP, BNP, URIC, TSH, T7, LIPID #### [facility] [address] [place], [place] [id number] Dr. Artem Rojas Protein [Mass/Vol] 6.8 g/dL Normal 6.4-8.2 [facility] Comment on above: Performed By: #### CMP, BNP, URIC, TSH, T7, LIPID #### [facility] [address] [place] [address] Dr. Artem Rojas Sodium [Moles/Vol] 142 mmol/L Normal 136-145 [facility] Comment on above: Performed By: #### CMP, BNP, URIC, TSH, T7, LIPID #### [facility] [address] [place] [address] Dr. Artem Rojas Urea nitrogen [Mass/Vol] 19.0 mg/dL Critically high 7.0-18.0 [facility] Comment on above: Performed By: #### CMP, BNP, URIC, TSH, T7, LIPID #### [facility] [address] [place] [address] Dr. Artem Rojas Urea nitrogen/Creatin ine [Mass ratio] 21.8 mg/mg Normal [facility] Comment on above: Performed By: #### CMP, BNP, URIC, TSH, T7, LIPID #### [facility] [address] [place] [address] Dr. Artem Rojas TSHon 07-30-2022 TSH 1.773 uIU/mL Normal 0.358-3.740 [facility] Comment on above: Performed By: #### CMP, BNP, URIC, TSH, T7, LIPID #### [facility] [address] [place] [address] Dr. Artem Rojas URIC ACID SERUMon 07-30-2022 Urate [Mass/Vol] 5.8 mg/dL Normal 3.5-7.2 [facility] Comment on above: Performed By: #### CMP, BNP, URIC, TSH, T7, LIPID #### [facility] [address] [place] [address] Dr. Artem Rojas VITAMIN D 25 OHon 07-30-2022 VIT D 25-OH 65.5 ng/mL Normal [facility] Comment on above: Performed By: #### PTT, PT #### [facility] [address] [place] [address] Dr. Artem Rojas VIT D RANGES SEE BELOW Normal [facility] Comment on above: Result Comment: <20 ng/mL Vit D deficien t 20 - <30 ng/mL Vit D insufficient 30 - 100 ng/mL Vit D sufficient >100 ng/mL Potential Toxicity Performed By: #### P TT, PT #### [facility] [address] [place] [address] Dr. Artem Rojas CBC AUTO DIFFon 03-02-2022 BASO # 0.1 103/ul Normal 0.0-0.1 [facility] Comment on above: Performed By: #### PTT, PT #### [facility] [address] [place] [address] Dr. Artem Rojas Basophils/100 WBC (Bld) 0.5 % Normal 0.2-2.0 [facility] Comment on above: Performed By: #### PTT, PT #### [facility] [address] [place] [address] Dr. Artem Rojas EO # 0.0 103/ul Normal 0.0-0.7 [facility] Comment on above: Performed By: #### PTT, PT #### [facility] [address] [place] [address] Dr. Artem Rojas Eosinophils/100 WBC (Bld) 0.1 % Critically low 0.9-7.0 [facility] Comment on above: Performed By: #### PTT, PT #### [facility] [address] [place] [address] Dr. Artem Rojas Erythrocyte distribution width (RBC) [Ratio] 12.9 % Normal 11.0-15.0 [facility] Comment on above: Performed By: #### PTT, PT #### [facility] [address] [place] [address] Dr. Artem Rojas Hematocrit (Bld) [Volume fraction] 39.7 % Critically low 42.0-54.0 [facility] Comment on above: Performed By: #### PTT, PT #### [facility] [address] [place] [address] Dr. Artem Rojas Hemoglobin (Bld) [Mass/Vol] 13.1 g/dL Critically low 14.0-18.0 [facility] Comment on above: Performed By: #### PTT, PT #### [facility] [address] [place] [address] Dr. Artem Rojas IG # 0.05 10e3/ul Critically high 0.00-0.03 [facility] Comment on above: Performed By: #### PTT, PT #### [facility] [address] [place] [address] Dr. Artem Rojas IG % 0.4 % Normal 0.0-0.5 [facility] Comment on above: Performed By: #### PTT, PT #### [facility] [address] [place] [address] Dr. Artem Rojas LYMPH # 0.8 103/ul Critically low 1.2-3.8 [facility] Comment on above: Performed By: #### PTT, PT #### [facility] [address] [place] [address] Dr. Artem Rojas Lymphocytes/100 WBC (Bld) 5.7 % Critically low 20.5-60.0 [facility] Comment on above: Performed By: #### PTT, PT #### [facility] [address] [place] [address] Dr. Artem Rojas MANUAL DIFF REQ NO Normal [facility] Comment on above: Performed By: #### PTT, PT #### [facility] [address] [place] [address] Dr. Artem Rojas MCH (RBC) [Entitic mass] 31.5 pg Normal 25.9-34.0 [facility] Comment on above: Performed By: #### PTT, PT #### [facility] [address] [place] [address] Dr. Artem Rojas MCHC (RBC) [Mass/Vol] 33.0 g/dL Normal 29.9-35.2 [facility] Comment on above: Performed By: #### PTT, PT #### [facility] [address] [place] [address] Dr. Artem Rojas MCV (RBC) [Entitic vol] 95.4 fL Critically high 80.0-94.0 [facility] Comment on above: Performed By: #### PTT, PT #### [facility] [address] [place] [address] Dr. Artem Rojas MONO # 1.0 103/ul Critically high 0.3-0.8 [facility] Comment on above: Performed By: #### PTT, PT #### [facility] [address] [place] [address] Dr. Artem Rojas Monocytes/100 WBC (Bld) 7.4 % Normal 1.7-12.0 [facility] Comment on above: Performed By: #### PTT, PT #### [facility] [address] [place] [address] Dr. Artem Rojas NEUT # 11.4 103/ul Critically high 1.4-6.5 [facility] Comment on above: Performed By: #### PTT, PT #### [facility] [address] [place] [address] Dr. Artem Rojas Neutrophils/100 WBC (Bld) 85.9 % Critically high 43.0-75.0 [facility] Comment on above: Performed By: #### PTT, PT #### [facility] [address] [place] [address] Dr. Artem Rojas Platelet mean volume (Bld) [Entitic vol] 10.8 fL Normal 9.5-13.5 [facility] Comment on above: Performed By: #### PTT, PT #### [facility] [address] [place] [address] Dr. Artem Rojas PLT 164 103/ul Normal 150-450 [facility] Comment on above: Performed By: #### PTT, PT #### [facility] [address] [place] [address] Dr. Artem Rojas RBC 4.16 106/ul Critically low 4.70-6.10 [facility] Comment on above: Performed By: #### PTT, PT #### [facility] [address] [place] [address] Dr. Artem Rojas WBC 13.2 103/ul Critically high 4.0-11.0 [facility] Comment on above: Performed By: #### PTT, PT #### [facility] [address] [address] [address] CSPINE WO CONon [...] WILLIAM ARIAS Date: 2022-03-02 17:51 Normal [facility] CT HEAD WO CONon 03-02-2022 CT [...] NISSA VIGIL Date: 2022-03-02 17:40 Normal [facility]13 SARS-CoV-2 (COVID-19) RNA MONICA+probe Ql (Unsp spec) Not detected Normal NOT DETECTED [facility] Comment on above: Result Comment: When [...] for this test is supported by the [place] [employer] and Human Service's declaration that [...] Performed By: #### P TT, PT #### [facility] [address] [place] [address] Dr. Artem Rojas GASTROCCULTon 03-02-2022 GASTROCCULT Positive Abnormal NEGATIVE [facility] Comment on above: Performed By: #### PTT, PT #### [facility] [address] [place] [address] Dr. Artem Rojas PH GASTRIC 2 Normal [facility] Comment on above: Performed By: #### PTT, PT #### [facility] [address] [place] [address] Dr. Artem Rojas PROF 14(COMP METB)on 022 Albumin [Mass/Vol] 3.6 g/dL Normal 3.4-5.0 [facility] Comment on above: Performed By: #### PTT, PT #### [facility] [address] [place] [address] Dr. Artem Rojas Albumin/Globulin [Mass ratio] 1.3 {ratio} Normal [facility] Comment on above: Performed By: #### PTT, PT #### [facility] [address] [place] [address] Dr. Artem Rojas ALP [Catalytic activity/Vol] 65 U/L Normal 46-116 [facility] Comment on above: Performed By: #### PTT, PT #### [facility] [address] [place] [address] Dr. Artem Rojas ALT [Catalytic activity/Vol] 12 U/L Critically low 16-63 [facility] Comment on above: Performed By: #### PTT, PT #### [facility] [address] [place] [address] Dr. Artem Rojas Anion gap [Moles/Vol] 12.8 mmol/L Normal [facility] Comment on above: Performed By: #### PTT, PT #### [facility] [address] [place] [address] Dr. Artem Rojas AST [Catalytic activity/Vol] 15 U/L Normal 15-37 [facility] Comment on above: Performed By: #### PTT, PT #### [facility] [address] [place] [address] Dr. Artem Rojas Bilirubin [Mass/Vol] 1.1 mg/dL Critically high 0.2-1.0 [facility] Comment on above: Performed By: #### PTT, PT #### [facility] [address] [place] [address] Dr. Artem Rojas Calcium [Mass/Vol] 9.0 mg/dL Normal 8.5-10.1 [facility] Comment on above: Performed By: #### PTT, PT #### [facility] [address] [address] [address] Artem Rojas Chloride [Moles/Vol] 104 mmol/L Normal 98-107 [facility] Comment on above: Performed By: #### PTT, PT #### [facility] [address] [place] [address] Dr. Artem Rojas CO2 [Moles/Vol] 25.8 mmol/L Normal 21.0-32.0 [facility] Comment on above: Performed By: #### PTT, PT #### [facility] [address] [place] [address] Dr. Artem Rojas Creatinine [Mass/Vol] 1.06 mg/dL Normal 0.70-1.30 [facility] Comment on above: Performed By: #### PTT, PT #### [facility] [address] [place] [address] Dr. Artem Rojas EGFR-AF SOU[place]FR[place] >60 Normal >=60 [facility] Comment on above: Performed By: #### PTT, PT #### [facility] [address] [place] [address] Dr. Artem Rojas EGFR-NON AF [place]FR[place] >60 Normal >=60 [facility] Comment on above: Performed By: #### PTT, PT #### [facility] [address] [address] [address] Artem Rojas Globulin (S) [Mass/Vol] 2.8 g/dL Normal [facility] Comment on above: Performed By: #### PTT, PT #### [facility] [address] [place] [address] Dr. Artem Rojas Glucose [Mass/Vol] 104 mg/dL Normal 74-106 [facility] Comment on above: Performed By: #### PTT, PT #### [facility] [address] [address] [address] Artem Rojas Potassium [Moles/Vol] 4.6 mmol/L Normal 3.5-5.1 [facility] Comment on above: Performed By: #### PTT, PT #### [facility] [address] [address] [address] Artem Rojas Protein [Mass/Vol] 6.4 g/dL Normal 6.4-8.2 [facility] Comment on above: Performed By: #### PTT, PT #### [facility] [address] [place] [address] Dr. Artem Rojas Sodium [Moles/Vol] 138 mmol/L Normal 136-145 [facility] Comment on above: Performed By: #### PTT, PT #### [facility] [address] [place] [address] Dr. Artem Rojas Urea nitrogen [Mass/Vol] 13.0 mg/dL Normal 7.0-18.0 [facility] Comment on above: Performed By: #### PTT, PT #### [facility] [address] [place] [address] Dr. Artem Rojas Urea nitrogen/Creatin ine [Mass ratio] 12.3 mg/mg Normal [facility] Comment on above: Performed By: #### PTT, PT #### [facility] [address] [place] [address] Dr. Artem Rojas PROTIMEon 03-02-2022 INR Coag (PPP) [Relative time] 1.23 {INR} Normal [facility] Comment on above: Performed By: #### PTT, PT #### [facility] [address] [place] [address] Dr. Artem Rojas INR GUIDELINES SEE BELOW Normal [facility] Comment on above: Result Comment: DESIRED INR: 2.0 - 3.0 C ONDITIONS NOT LISTED BELOW 2.5 - 3.5 FOR PROSTHETIC HEART VALVE REPLACEMENT 2.5 - 3.5 RECURRENT THROMBOSIS Performed By: #### P TT, PT #### [facility] [address] [address] [address] Artem Rojas PT Coag (PPP) [Time] 13.1 s Critically high 9.0-11.6 [facility] Comment on above: Performed By: #### PTT, PT #### [facility] [address] [address] [address] Artem Rojas PTTon 03-02-2022 aPTT Coag (Bld) [Time] 28.5 s Normal 22.3-36.2 [facility] Comment on above: Performed By: #### PTT, PT #### [facility] [address] [address] [address] Artem Rojas XR KNEE RT 1_2 [...] MATTHEW CHADWICK Date: 2022-03-02 20:49 Normal [facility] OVA AND PARASITE EXAMINATION on 01-18-2022 Ova + Parasite Exam Final report Normal [facility] Comment on above: Result Comment: These results were obtai ricardo using wet preparation(s) and trichrome stained smear. This test does not include testing for Cryptosporidium parvum, Cyclospora, or Microsporidia. Performed By: #### P TT, PT #### [facility] [address] [address] [address] Artem Rojas Result 1 Comment Normal [facility] Comment on above: Result Comment: No ova, cysts, or parasi alise seen. . One negative specimen does not rule out the possibility of a parasitic infection. Performed By: #### P TT, PT #### [facility] [address] [place] [address] Dr. Artem Rojas GI PANEL (PCR)on 01-14-2022 Adenovirus F 40/41 Not detected Normal NOT DETECTED [facility] Comment on above: Performed By: #### PTT, PT #### [facility] [address] [place] [address] Dr. Artem Rojas Astrovirus Not detected Normal NOT DETECTED [facility] Comment on above: Performed By: #### PTT, PT #### [facility] [address] [place] [address] Dr. Artem Rojas C. Diff toxin A/B Not detected Normal NOT DETECTED [facility] Comment on above: Performed By: #### PTT, PT #### [facility] [address] [place] [address] Dr. Artem Rojas Campylobacter Not detected Normal NOT DETECTED [facility] Comment on above: Performed By: #### PTT, PT #### [facility] [address] [place] [address] Dr. Artem Rojas Cryptosporidium Not detected Normal NOT DETECTED [facility] Comment on above: Performed By: #### PTT, PT #### [facility] [address] [place] [address] Dr. Artem Rojas Cyclos. Cayetanensis Not detected Normal NOT DETECTED [facility] Comment on above: Performed By: #### PTT, PT #### [facility] [address] [place] [address] Dr. Artem Rojas E. Coli O157 Not Applicable Normal Not Applicable [facility] Comment on above: Performed By: #### PTT, PT #### [facility] [address] [place] [address] Dr. Artem Rojas E. histolytica Not detected Normal NOT DETECTED [facility] Comment on above: Performed By: #### PTT, PT #### [facility] [address] [place] [address] Dr. Artem Rojas EAEC Not detected Normal NOT DETECTED [facility] Comment on above: Performed By: #### PTT, PT #### [facility] [address] [place] [address] Dr. Artem Rojas EIEC Not detected Normal NOT DETECTED [facility] Comment on above: Performed By: #### PTT, PT #### [facility] [address] [place] [address] Dr. Artem Rojas EPEC Not detected Normal NOT DETECTED [facility] Comment on above: Performed By: #### PTT, PT #### [facility] [address] [place] [address] Dr. Artem Rojas ETEC Not detected Normal NOT DETECTED [facility] Comment on above: Performed By: #### PTT, PT #### [facility] [address] [place] [address] Dr. Artem Whitt Lamblijoshua Not detected Normal NOT DETECTED [facility] Comment on above: Performed By: #### PTT, PT #### [facility] [address] [place] [address] Dr. Artem TSE CONTROLS PASSED Normal [facility] Comment on above: Performed By: #### PTT, PT #### [facility] [address] [place] [address] Dr. Artem [facility] HEADER GI PANEL BACTERIA Normal [facility] Comment on above: Performed By: #### PTT, PT #### [facility] [address] [place] [address] Dr. Artem ARELLANO ECOLI GI PANEL DIARRHEAGEN IC E.COLI / SHIGELLA Normal [facility] Comment on above: Performed By: #### PTT, PT #### [facility] [address] [place] [address] Dr. Artem ARELLANO INFO SEE BELOW Normal [facility] Comment on above: Result Comment: EAEC- Enteroaggregative E. Coli EPEC- Enteropathogenic E. Coli ETEC- Enterotoxigenic E. Coli lt/st STEC- Shigella-like toxin-producing E. Coli stx1/stx2 EIEC- Shigella/Enteroinvasive E. Coli Performed By: #### P TT, PT #### [facility] [address] [place] [address] Dr. Artem ARELLANO PARASITES GI PANEL PARASITES Normal [facility] Comment on above: Performed By: #### PTT, PT #### [facility] [address] [place] [address] Dr. Artem ARELLANO VIRUS GI PANEL VIRUSES Normal [facility] Comment on above: Performed By: #### PTT, PT #### [facility] [address] [place] [address] Dr. Artem Rojas Norovirus GI/GII Not detected Normal NOT DETECTED [facility] Comment on above: Performed By: #### PTT, PT #### [facility] [address] [place] [address] Dr. Artem Rojas P. Shigelloides Not detected Normal NOT DETECTED [facility] Comment on above: Performed By: #### PTT, PT #### [facility] [address] [place] [address] Dr. Artem Rojas Rotavirus A Not detected Normal NOT DETECTED [facility] Comment on above: Performed By: #### PTT, PT #### [facility] [address] [place] [address] Dr. Artem Rojas Salmonella Not detected Normal NOT DETECTED [facility] Comment on above: Performed By: #### PTT, PT #### [facility] [address] [place] [address] Dr. Artem Rojas Sapovirus Not detected Normal NOT DETECTED [facility] Comment on above: Performed By: #### PTT, PT #### [facility] [address] [place] [address] Dr. Artem Rojas STEC Not detected Normal NOT DETECTED [facility] Comment on above: Performed By: #### PTT, PT #### [facility] [address] [place] [address] Dr. Artem Rojas Vibrio Not detected Normal NOT DETECTED [facility] Comment on above: Performed By: #### PTT, PT #### [facility] [address] [place] [address] Dr. Artem Rojas Vibrio Cholera Not detected Normal NOT DETECTED [facility] Comment on above: Performed By: #### PTT, PT #### [facility] [address] [address] [address] Artem Rojas Y. Enterocolitica Not detected Normal NOT DETECTED [facility] Comment on above: Performed By: #### PTT, PT #### [facility] [id number] Artem Rojas Consultation Noteon 06-03-20 Consultation Note [id number]#1.00CD:127 Normal [facility] RAD - MISCon 06-03-2021 RAD - MISC [id number]#1.00CD:127 Normal [facility] Glucose Poct Glucometerson 0 01-10-2021 Glucose [Mass/Vol] 108 mg/dL Normal [facility] Comment on above: Result Comment: Random Glucose Reference Range is dependent on time and content of last meal. Glucose of more than 200 mg/dL in a nonstressed, ambulatory subject supports the diagnosis of Diabetes Mellitus. PERFORMED BY: [facility] [address] [place] [address] PATHOLOGIST ENVIRONMENTAL SAFETY SPECIALIST SARY APARICIO M.D. Performed By: #### G SAMMIE #### Point of Care testing , [facility] 01-10-2021 L Specimen: [id number] Received: 01/10/21 Status: WILFREDO Kelsie Num: [id number] Spec Type: Surgical Subm Dr: Shane Snell MD Tissues: A Colon - Polyp (CECUM) B Colon - Polyp (SIGMOID) Procedures: HE Stain/4, Gross/Micro L4/2 Patient Age/Sex Location Account Attending Physician Desean Landry JR 80/M [id number] Shane Snell MD SPEC NUM: [id number] RECD: 01/10/21 STATUS: WILFREDO MCKEON NUM: [id number] MICAH: 01/10/21 DR: Shane Snell MD ENTERED: 01/10/21 [facility] DR: SATHISH TYPE: Surgical DEPT: S ORDERED: [...] Entirely submitted in one cassette labeled A1. (SM/YJ) B. Received in formalin labeled with the [...] findings support the above pathologic diagnosis. Specimen: [id number] Received: 01/10/21 Status: WILFREDO Mckeon Num: [id number] Spec Type: Surgical Subm Dr: Shane Snell MD Tissues: A Colon - Polyp (CECUM) B Colon - Polyp (SIGMOID) Procedures: HE Stain/4, Gross/Micro L4/2 Patient: Desean Landry JR [id number] (Continued) Specimen: [id number] Received: 01/10/21 (Continued) Signed (signature on file) Randi Ji MD 01/11/21 1809 Specimen: [id number] Received: 01/10/21 Status: WILFREDO Mckeon Num: [id number] Spec Type: Surgical Subm Dr: Shane Snell MD Tissues: A Colon - Polyp (CECUM) B Colon - Polyp (SIGMOID) Procedures: HE Stain/4, Gross/Micro L4/2 Patient: Desean Landry JR [id number] (Continued) Specimen: [id number] Received: 01/10/21 (Continued) CPT Codes 19042?2 Specimen: [id number] Received: 01/10/21 Status: WILFREDO Mckeon Num: [id number] Spec Type: Surgical Subm Dr: Shane Snell MD Tissues: A Colon - Polyp (CECUM) B Colon - Polyp (SIGMOID) Procedures: HE Stain/4, Gross/Micro L4/2 Patient: Desean Landry JR [id number] (Continued) Signed (signature on file) Randi Ji MD 01/11/211808 [facility] CNCOon 04-13-2018 CNCO Letter TextOctober 2017[address] [place], [place] [address]LOWK: Rocky Landry NO.: [phone] OF SERVICE: 04/06/2018Dept. of Pulmonary and Critical Care MedicineDear Mr. Landry,Attached please find a copy of your CAT scan chest report from March.Please contact me if I can contribute further in your health care management.Best regards.Yours sincerely,Cesar Rowley M.D., F.C.C.P.HC:lmEnclosure Normal [facility] CT CHEST WO IVCONon 04-06-[address] CHEST WO IVCON * * *Final Report* * *DATE OF EXAM: Apr 06 2018 12:50PM [facility] 0541 - CT CHEST WO IVCON [...] any questions regarding this interpretation, please call [phone].If you are unable to reach us at the number above,please feel free to contact [facility] eRadiology at [phone] ACN Normal [facility] PROGRESSon 04-06-2018 Protein mass conc HNO ID: [id number]: Venita Lr: (none)Author Type: (none)Type: Progress NotesFiled: 04/06/2018 12:57 PMNote Text: Radiology Service Progress NotePATIENT NAME: Desean LandryMRN: [id number] OF SERVICE: April 06, 2018TIME: 12:28 PMPATIENT IDENTITY VERIFICATION COMPLETED USING TWO (2) METHODS: Patientconfirmed name verbally and ID band matches..PATIENT GENDER DATA: MalePATIENT RELEVANT IMPLANT DATA REVIEWED: Not ApplicableRADIOLOGY DEPARTMENT: CT; Exam(s) Completed: ChestPERIPHERAL IV DATA: Not applicableSIGNED BY: Venita Lee 2017 12:[address] [facility] CNOVon 09-10-2017 CNOV Office Visit (PULMMN) SA SHAILA LANDRY ([id number]) 1940 MDate Time Provider Department09/10/17 9:55 AM CESAR ROWLEY During your visit today, we recorded the following information about you: Temperature Pulse Respiration Blood pressure 97.7 degrees 75/minute 18/minute 125/68 Weight Height 90.3 kg 1.753 Ritika Rowley MD 09/10/2017 12:26 PM SignedPULMONARY CLINICPATIENT NAME: Desean LandryMRN: [id number] CARE PHYSICIAN: Diogenes Casiano, [facility] CITYommunication will be sent [...] No ronchi. No ralesCARDIAC: normal S1 and D6QMDZTOZ: Abdomen soft.EXTREMETIES: No deformities. No LE edema. [...] [J98.11] Pleural calcification [J94.8]Order(s):CT CHEST WO IVCON [[id number]] Order #: [id number] FUTUREProblem List As Of Date: 09/10/2017(None)Disposition: Return in about 6 months (around 03/13/2018).Follow-up and Disposition History RecordedEncounter Number: [id number] Status:Closed by CESAR ROWLEY MD on 09/10/[address] [facility] [address] CHEST WO IVCONon 09-11-19 CT CHEST WO IVCON * * *Final Report* * *DATE OF EXAM: Sep 10 2017 9:05AM [facility] - CT CHEST WO IVCON / [...] 6 mm. Three-month imaging follow-up suggested for reevaluation.Lozenge Dough Mixer: AMILCAR Transcribe Date/Time: Sep 10 2017 9:58ADictated by : CHRISTY MULTANI MDThis examination was interpreted and the report reviewed and electronically signed by: CHRISTY MULTANI MD on Sep 10 2017 2:48PM [id number] Normal [facility] PROGRESSon 09-10-2017 Protein mass conc HNO ID: [id number]: Srinath Coleman (Sheila Purcell CTService: RadiologyAuthor Type: Clinical TechnicianType: Progress NotesFiled: 09/10/2017 9:03 AMNote Text: Radiology Service Progress NotePATIENT NAME: Desean LandryMRN: [id number] OF SERVICE: September 10, 2017TIME: 9:03 AMPATIENT IDENTITY VERIFICATION COMPLETED USING TWO (2) METHODS: Patientconfirmed name verbally and ID band matches..PATIENT GENDER DATA: MalePATIENT RELEVANT IMPLANT DATA REVIEWED: YesRADIOLOGY DEPARTMENT: CT; Exam(s) Completed: ChestPERIPHERAL IV DATA: Not applicableSIGNED BY: Srinath Purcell, CTSalem [facility] 2017 9:[address] [facility] Protein mass conc HNO ID: [id number]: Cesar Garcia: (none)Author Type: PhysicianType: Progress NotesFiled: 09/10/2017 12:26 PMNote Text:PULMONARY CLINICPATIENT NAME: Desean LandryMRN: [id number] CARE PHYSICIAN: Diogenes Casiano, MDCommunication will be [...] wheezing. No ronchi. NoralesCARDIAC: normal S1 and K3RYAFRQI: Abdomen soft.EXTREMETIES: No deformities. No LE edema. [...] MedicineDATE: September 10, 2017TIME: 9:[address] [facility] HISTORY PHYSICALon HISTORY PHYSICAL HNO ID: [id number] thor: Cesar Garcia: (none)Author Type: PhysicianType: HANDPFiled: 07/23/2017 5:35 PMNote Text:PULMONARY CONSULTPATIENT NAME: Desean LandryMRN: [id number] FOR CONSULT: Pleural effusionREQUESTING PHYSICIAN: REJI HealyRIFLORALA MEMORIAL [facility] CARE PHYSICIAN: Diogenes Casiano, [facility] CITYommunication will be sent via [place] mail or shared electronic medicalrecordsHISTORY OF PRESENT ILLNESS: Mr. 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 Unable to make his own medical decision.He lives by himself but currently admitted at a SNF. He has a legalguardian Blanca Sofia phone # [phone].In June he was found on the floor [...] evaluation anddecided to pursue further evaluation at [facility].Since hospital discharge, he has been [...] use YesMEDICATIONS:Metoprolol 25mfg bidFolic acidThiamineEliquis 5mg bidpravastatinALLERGIES:ALLERGIE Kevin Known AllergiesCOMPLETE REVIEW OF SYSTEMS:GENERAL: No weight [...] MedicineDATE: July 23, 2017TIME: 12:[address] [facility] PROGRESSon 07-23-2017 Protein mass conc HNO ID: [id number]: Colleen Ceballos RtService: (none)Author Type: (none)Type: Progress NotesFiled: 07/23/2017 11:16 AMNote Text: Radiology Service Progress NotePATIENT NAME: Desean LandryMRN: [id number] OF SERVICE: July 23, 2017TIME: 11:16 AMPATIENT IDENTITY VERIFICATION COMPLETED USING TWO (2) METHODS: Patientconfirmed name verbally and Date of .PATIENT GENDER DATA: MalePATIENT RELEVANT IMPLANT DATA REVIEWED: Not ApplicableRADIOLOGY DEPARTMENT: General X-ray: Exam(s) Completed: Chest X-RayPERIPHERAL IV DATA: Not applicableSIGNED BY: Colleen Ceballos RtFebruary 2017 11:[address] [facility] XR CHEST 2V FRONTAL/LATon XR CHEST 2V FRONTAL/LAT * * *Final Report* * *DATE OF EXAM: Jul 23 2017 11:10AM [facility] 5291 - XR CHEST 2V FRONTAL/LAT / [...] ARMENTA MD on Jul 23 2017 3:24PM [id number] Normal [facility] HOSPon 07-21-2017 HOSP Patient:Desean Landry MRN: [...] Radiology Service Progress NotePATIENT NAME: Desean LandryMRN: [id number] OF SERVICE: July 23, 2017TIME: 11:16 AMPATIENT IDENTITY VERIFICATION COMPLETED USING TWO (2) METHODS: Patientconfirmed name verbally and Date of .PATIENT GENDER DATA: MalePATIENT RELEVANT IMPLANT DATA REVIEWED: Not ApplicableRADIOLOGY DEPARTMENT: General X-ray: Exam(s) Completed: Chest X-RayPERIPHERAL IV DATA: Not applicableSIGNED BY: Colleen Ceballos RtFebruary 2017 11:16 AMProgress Notes (HOSP [facility] H23):Latoya Mohamud, RN, RN 07/22/2017 10:35 AM Signed07/22/2017: Navigator contacted [facility] ([phone]) toobtain recent labs. [employer] will fax labs and medication list. Craig also have a copies of this sent with him to his appointments. Normal [facility] Cristhian 07-16-2017 CNPN Telephone (PULMMN) SA SHAILA LANDRY ([id number]) 1940 MDate Time Provider Department07/16/17 CSEAR ROWLEY During your visit today, we recorded the following information about you:Kristie Vallejo 07/16/2017 2:35 PM Signedcxr report to [employer].Italo Mora CNP 07/17/2017 12:47 PM SignedCXR 07/13/2017StableAllergies As of Date: 07/16/2017(No Known Allergies)Date Reviewed: 07/14/2017Reviewed by: Kim Walker (Fel) - Fully AssessedReason for Visit: Received Outside Medical Records [4036]Problem List As Of Date: 07/16/2017(None) Status:Closed by KRISTIE ANDRADE on 07/16/17 [facility] BASIC METABOLIC PANELon Calcium 8.5 mg/dL Low 8.6-10.[address] [facility] Comment on above: Order Comment: No: Do not add to previou s draw Performed By: #### 4 1000, 71257, 29610, 81637, 15830 ####[facility] [place] [address], [facility] Chloride 104 mmol/L Normal 98-[address] [facility] Comment on above: Order Comment: No: Do not add to previou s draw Performed By: #### 4 1000, 78465, 54883, 70120, 00594 ####[facility] [place] [address], [facility] CO2 30 mmol/L Normal 21-[address] [facility] Comment on above: Order Comment: No: Do not add to previou s draw Performed By: #### 4 1000, 84608, 42095, 48229, 45197 ####[facility] [place] [address], [facility] Creatinine 0.94 mg/dL Normal 0.70-1.[address] [facility] Comment on above: Order Comment: No: Do not add to previou s draw Performed By: #### 4 1000, 25377, 22682, 60211, 22030 ####[facility] [place] [address], [facility] eGFR (black) mL/min/{1.73_m2} Normal >[address] [facility] Comment on above: Order Comment: No: Do not add to previou s draw Result Comment: Calc ulation may not be valid for patients over 70 years Performed By: #### 4 1000, 35969, 17655, 32009, 26304 ####[facility] [facility] [place] [address], [facility] eGFR (non-black) mL/min/{1.73_m2} Normal >[address] [facility] Comment on above: Order Comment: No: Do not add to previou s draw Result Comment: Calc ulation may not be valid for patients over 70 years Performed By: #### 4 1000, 58986, 85598, 80846, 21675 ####[facility] [place] [address], [facility] Glucose mass conc 98 mg/dL Normal 70-[address] [facility] Comment on above: Order Comment: No: Do not add to previou s draw Performed By: #### 4 1000, 29294, 05007, 95112, 09415 ####[facility], [address] Potassium molar conc 4.3 mmol/L Normal 3.5-5.[address] [facility] Comment on above: Order Comment: No: Do not add to previou s draw Performed By: #### 4 1000, 27656, 87240, 49501, 61684 ####[facility] Sodium 141 mmol/L Normal 136-[address] [facility] Comment on above: Order Comment: No: Do not add to previou s draw Performed By: #### 4 1000, 38218, 32829, 54892, 81966 ####[facility] Urea nitrogen 17 mg/dL Normal 7-[address] [facility] Comment on above: Order Comment: No: Do not add to previou s draw Performed By: #### 4 1000, 98645, 02921, 15583, 32567 ####[facility] CBC W/DIFFon 06-20-2017 Basophils Auto #/vol (Bld) 0.5 % Normal 0.0-2.[address] [facility] Comment on above: Performed By: #### 81282, 33820, 02830, 23289, 35417 ####[facility] Eosinophils/100 leukocytes 3.6 % Normal 0.0-5.[address] [facility] Comment on above: Performed By: #### 94147, 00893, 67176, 22209, 02568 ####[facility] Erythrocyte distribution width Auto Ratio (RBC) 14.2 % Normal 11.5-16.[address] [facility] Comment on above: Performed By: #### 65784, 20940, 99491, 73249, 91120 ####[facility] Erythrocytes (RBC) 4.19 mill/mm3 Low 4.30-5.[address] [facility] Comment on above: Performed By: #### 28809, 66775, 32066, 31627, 70259 ####[facility] Hematocrit (HCT) 39.9 % Normal 39.0-55.[address] [facility] Comment on above: Performed By: #### 45617, 19447, 44649, 14696, 18764 ####[facility] [facility] Hemoglobin mass conc (Bld) 13.6 g/dL Low 13.9-16.[address] [facility] Comment on above: Performed By: #### 44729, 04351, 22480, 86299, 27273 ####[facility] [facility] Lymphocytes/100 leukocytes 15.7 % Low 20.0-40.[address] [facility] Comment on above: Performed By: #### 38359, 17099, 29530, 92423, 81798 ####[facility] MCH 32.4 pg High 24.0-32.[address] [facility] Comment on above: Performed By: #### 67299, 73922, 08689, 95663, 98188 ####[facility] MCHC mass conc (RBC) 34.0 g/dL Normal 32.0-36.[address] [facility] Comment on above: Performed By: #### 68253, 41119, 96075, 26122, 81809 ####[facility] MCV 95.3 fL Normal 80.0-100.[address] [facility] Comment on above: Performed By: #### 55184, 72464, 19329, 22860, 00025 ####[facility] [place] [address], [facility] METHOD Normal RBC Morphology Normal [facility] Comment on above: Performed By: #### 16828, 02754, 44445, 73896, 90148 ####[facility] [place] [address], [place] MONOS 9.9 % High 2-[address] [facility] Comment on above: Performed By: #### 80482, 36371, 06826, 55397, 29588 ####[facility] [place] [address], [facility] Neutrophils/100 leukocytes 70.3 % High 50-[address] [facility] Comment on above: Performed By: #### 09156, 07344, 05766, 24751, 22799 ####[facility] [place] [address], [place] PLAT CNT 193 Thou/mm3 Normal 100-[address] [facility] Comment on above: Performed By: #### 85009, 59319, 36251, 72435, 44997 ####[facility] [place] [address], [place] WBC (Leukocytes) 8.7 Thou/mm3 Normal 4.0-10.[address] [facility] Comment on above: Performed By: #### 97214, 21765, 59964, 18186, 59336 ####[facility] [place] [address], [facility] Discharge Summaryon 06-20-19 18 Discharge Summary [id number] Admitted: 06/13/2017 Discharged: 06/20/2017 Date of : 1940 Physician: Diogenes Henry M.D. DISCHARGE SUMMARYPRIMARY DIAGNOSIS: Rhabdomyolysis secondary to prolonged immobilization.SECONDARY DIAGNOSES:1. History of atrial fibrillation.2. Right sided Posterior Calcified pleural plaques.3. Right-sided loculated pleural effusion.CONSULTS: CT Surgery, Pulmonary.PROCEDURES: None.SUMMARY OF HOSPITAL COURSE: Mr. Landry is a 76-year-old male, who [facility] with complaints of being found [...] EMS was contacted and brought the patient [facility]. Initial workup was notable for severe rhabdomyolysis,and the patient was transferred to [facility]. He has a past medical historysignificant [...] not have a biopsy performed whilehospitalized at [facility].His CK and myoglobin continue to trend downward, and he was deemed stableat the time of discharge.He will need to follow up with Dr. Rowley at [facility] for continuedmanagement of his pleural effusions concerning for empyema and hisright-sided pleural calcifications. He was to be discharged on Lorena [id number], however his transportation was delayed. He was ultimately dischargedon 06/20/16 to [facility].Of note, his Eliquis was stopped for possible thoracentesis in the nextweek. He was instructed that if he does not have a thoracentesis the nextweek, he is to resume his Eliquis for his atrial fibrillation.The patient's condition at discharge stable and improved since admission.DISPOSITION: [facility].DISCHARGE INSTRUCTIONS: You are being discharged to [facility]. Please continueto follow up with Dr. Rowley at [facility] for continued management ofthe pleural effusions [...] A Diogenes Henry M.D...Date Dict: 06/19/2017/05:47 P/Jarad Ayon MDDate Trans: 06/20/2017 04:29 P/[id number]: Diogenes Casiano M.D. [address] [id number] [facility] MAGNESIUM BLOODon 06-20-2017 Magnesium 2.0 mg/dL Normal 1.9-2.[address] [facility] Comment on above: Order Comment: No: Do not add to previou s draw Performed By: #### 4 1000, 31842, 64210, 28435, 78986 ####[facility] [place] [address], [facility] PHOSPHORUS BLOODon 01-06-201 8 Phosphate 3.5 mg/dL Normal 2.5-5.[address] [facility] Comment on above: Order Comment: No: Do not add to previou s draw Performed By: #### 4 1000, 37799, 62183, 21999, 88185 ####[facility] BASIC METABOLIC PANELon Calcium 8.5 mg/dL Low 8.6-10.[address] [facility] Comment on above: Order Comment: No: Do not add to previou s draw Performed By: #### 4 1000, 47493, 11222, 30705, 30302 ####[facility] Chloride 105 mmol/L Normal 98-[address] [facility] Comment on above: Order Comment: No: Do not add to previou s draw Performed By: #### 4 1000, 90541, 76293, 11395, 89631 ####[facility] CO2 26 mmol/L Normal 21-[address] [facility] Comment on above: Order Comment: No: Do not add to previou s draw Performed By: #### 4 1000, 15875, 18233, 52463, 01804 ####[facility] Creatinine 0.95 mg/dL Normal 0.70-1.[address] [facility] Comment on above: Order Comment: No: Do not add to previou s draw Performed By: #### 4 1000, 44153, 64002, 55142, 00930 ####[facility] eGFR (black) mL/min/{1.73_m2} Normal >[address] [facility] Comment on above: Order Comment: No: Do not add to previou s draw Result Comment: Calc ulation may not be valid for patients over 70 years Performed By: #### 4 1000, 73034, 39744, 96463, 10729 ####[facility] eGFR (non-black) mL/min/{1.73_m2} Normal >[address] [facility] Comment on above: Order Comment: No: Do not add to previou s draw Result Comment: Calc ulation may not be valid for patients over 70 years Performed By: #### 4 1000, 59738, 72662, 23761, 91016 ####[facility] Glucose mass conc 102 mg/dL High 70-[address] [facility] Comment on above: Order Comment: No: Do not add to previou s draw Performed By: #### 4 1000, 53471, 76733, 38785, 79550 ####[facility] Potassium molar conc 3.7 mmol/L Normal 3.5-5.[address] [facility] Comment on above: Order Comment: No: Do not add to previou s draw Performed By: #### 4 1000, 58785, 28014, 14342, 13769 ####[facility] [facility] Sodium 139 mmol/L Normal 136-[address] [facility] Comment on above: Order Comment: No: Do not add to previou s draw Performed By: #### 4 1000, 66814, 62554, 67264, 46339 ####[facility] [place] [address], [facility] Urea nitrogen 17 mg/dL Normal 7-[address] [facility] Comment on above: Order Comment: No: Do not add to previou s draw Performed By: #### 4 1000, 38024, 06340, 35190, 31545 ####[facility] CBC W/DIFFon 06-19-2017 Basophils Auto #/vol (Bld) 0.5 % Normal 0.0-2.[address] [facility] Comment on above: Order Comment: No: Do not add to previou s draw Performed By: #### 4 1000, 46535, 87515, 46190, 87611 ####[facility] [place] [address], [facility] Eosinophils/100 leukocytes 1.0 % Normal 0.0-5.[address] [facility] Comment on above: Order Comment: No: Do not add to previou s draw Performed By: #### 4 1000, 50740, 72332, 95219, 15403 ####[facility] Erythrocyte distribution width Auto Ratio (RBC) 13.7 % Normal 11.5-16.[address] [facility] Comment on above: Order Comment: No: Do not add to previou s draw Performed By: #### 4 1000, 50051, 46938, 83633, 13063 ####[facility] Erythrocytes (RBC) 4.33 mill/mm3 Normal 4.30-5.[address] [facility] Comment on above: Order Comment: No: Do not add to previou s draw Performed By: #### 4 1000, 92504, 65568, 23604, 56056 ####[facility] Hematocrit (HCT) 41.5 % Normal 39.0-55.[address] [facility] Comment on above: Order Comment: No: Do not add to previou s draw Performed By: #### 4 1000, 80092, 55775, 75265, 69828 ####[facility] [place] [address], [facility] Hemoglobin mass conc (Bld) 14.1 g/dL Normal 13.9-16.[address] [facility] Comment on above: Order Comment: No: Do not add to previou s draw Performed By: #### 4 1000, 73899, 90426, 60614, 47455 ####[facility] Lymphocytes/100 leukocytes 11.5 % Low 20.0-40.[address] [facility] Comment on above: Order Comment: No: Do not add to previou s draw Performed By: #### 4 1000, 83865, 47104, 63610, 15792 ####[facility] MCH 32.7 pg High 24.0-32.[address] [facility] Comment on above: Order Comment: No: Do not add to previou s draw Performed By: #### 4 1000, 85706, 59755, 68905, 54218 ####[facility] [facility].[address] MCHC mass conc (RBC) 34.1 g/dL Normal 32.0-36.[address] [facility] Comment on above: Order Comment: No: Do not add to previou s draw Performed By: #### 4 1000, 89961, 10620, 92702, 22661 ####[facility] [facility].[address] MCV 95.9 fL Normal 80.0-100.[address] [facility] Comment on above: Order Comment: No: Do not add to previou s draw Performed By: #### 4 1000, 80396, 09755, 54356, 62297 ####[facility] [facility].[address] METHOD Normal RBC Morphology Normal [facility] Comment on above: Order Comment: No: Do not add to previou s draw Performed By: #### 4 1000, 58903, 00428, 64730, 99667 ####[facility] [place] [address], [facility] MONOS 11.9 % High 2-[address] [facility] Comment on above: Order Comment: No: Do not add to previou s draw Performed By: #### 4 1000, 16044, 74931, 16739, 30451 ####[facility] [place] [address], [facility] Neutrophils/100 leukocytes 75.1 % High 50-[address] [facility] Comment on above: Order Comment: No: Do not add to previou s draw Performed By: #### 4 1000, 38681, 08175, 02089, 56227 ####[facility] [place] [address], [facility] PLAT CNT 192 Thou/mm3 Normal 100-[address] [facility] Comment on above: Order Comment: No: Do not add to previou s draw Performed By: #### 4 1000, 82160, 95353, 75379, 73837 ####[facility] WBC (Leukocytes) 10.7 Thou/mm3 High 4.0-10.[address] [facility] Comment on above: Order Comment: No: Do not add to previou s draw Performed By: #### 4 1000, 80393, 87143, 38800, 77055 ####[facility] CPKon 06-19-2017 Creatine kinase (CK) 252 U/L High 30-[address] [facility] Comment on above: Performed By: #### 52004, 87244, 65780, 70126, 63979 ####[facility] MAGNESIUM BLOODon 06-19-2017 Magnesium 2.0 mg/dL Normal 1.9-2.[address] [facility] Comment on above: Order Comment: No: Do not add to previou s draw Performed By: #### 4 1000, 32596, 70894, 40671, 07763 ####[facility] [place] [address], [facility] MYOGLOBINon 06-19-2017 Myoglobin 213 ng/mL Critically high 0-[address] [facility] Comment on above: Result Comment: A DOUBLING OF VALUES FRO M SERIAL BLOOD COLLECTIONS(1 - 2 HOURS APART) IS MORE INDICATIVE OF A M.I.THAN THE ABSOLUTE VALUE. Performed By: #### 4 1000, 38369, 27395, 51862, 79791 ####[facility] [place] [address], [facility] PHOSPHORUS BLOODon 8 Phosphate 2.7 mg/dL Normal 2.5-5.[address] [facility] Comment on above: Order Comment: No: Do not add to previou s draw Performed By: #### 4 1000, 67562, 37394, 38333, 40296 ####[facility] [place] [address], [facility] ALBUMIN BLOODon 06-18-2017 Albumin 2.6 g/dL Low 3.5-5.[address] [facility] Comment on above: Performed By: #### 38414, 66718, 27536, 86757, 48621 ####[facility] [place] [address], [facility] BASIC METABOLIC PANELon Calcium 8.4 mg/dL Low 8.6-10.[address] [facility] Comment on above: Order Comment: No: Do not add to previou s draw Performed By: #### 5 0608 ####[facility] [place] [address], [facility] Chloride 106 mmol/L Normal 98-[address] [facility] Comment on above: Order Comment: No: Do not add to previou s draw Performed By: #### 5 0608 ####[facility] [facility].[address] CO2 25 mmol/L Normal 21-[address] [facility] Comment on above: Order Comment: No: Do not add to previou s draw Performed By: #### 5 0608 ####[facility] [place] [address], [facility] Creatinine 0.93 mg/dL Normal 0.70-1.[address] [facility] Comment on above: Order Comment: No: Do not add to previou s draw Performed By: #### 5 0608 ####[place] [address] [address] eGFR (black) mL/min/{1.73_m2} Normal >[address] [facility] Comment on above: Order Comment: No: Do not add to previou s draw Result Comment: Calc ulation may not be valid for patients over 70 years Performed By: #### 5 0608 ####[facility] [facility].[address] eGFR (non-black) mL/min/{1.73_m2} Normal >[address] [facility] Comment on above: Order Comment: No: Do not add to previou s draw Result Comment: Calc ulation may not be valid for patients over 70 years Performed By: #### 5 0608 ####[facility] [facility].[address] Glucose mass conc 106 mg/dL High 70-[address] [facility] Comment on above: Order Comment: No: Do not add to previou s draw Performed By: #### 5 0608 ####[place] [address] [address] Potassium molar conc 3.4 mmol/L Low 3.5-5.[address] [facility] Comment on above: Order Comment: No: Do not add to previou s draw Performed By: #### 5 0608 ####[facility] Sodium 137 mmol/L Normal 136-[address] [facility] Comment on above: Order Comment: No: Do not add to previou s draw Performed By: #### 5 0608 ####[facility] [place] [address], [facility] Urea nitrogen 21 mg/dL Normal 7-[address] [facility] Comment on above: Order Comment: No: Do not add to previou s draw Performed By: #### 5 0608 ####[facility] CBC W/DIFFon 06-18-2017 Basophils Auto #/vol (Bld) 0.9 % Normal 0.0-2.[address] [facility] Comment on above: Order Comment: No: Do not add to previou s draw Performed By: #### 5 0608 ####[facility] Eosinophils/100 leukocytes 2.3 % Normal 0.0-5.[address] [facility] Comment on above: Order Comment: No: Do not add to previou s draw Performed By: #### 5 0608 ####[facility] Erythrocyte distribution width Auto Ratio (RBC) 13.6 % Normal 11.5-16.[address] [facility] Comment on above: Order Comment: No: Do not add to previou s draw Performed By: #### 5 0608 ####[facility] [place] [address], [facility] Erythrocytes (RBC) 4.37 mill/mm3 Normal 4.30-5.[address] [facility] Comment on above: Order Comment: No: Do not add to previou s draw Performed By: #### 5 0608 ####[facility] Hematocrit (HCT) 42.0 % Normal 39.0-55.[address] [facility] Comment on above: Order Comment: No: Do not add to previou s draw Performed By: #### 5 0608 ####[facility] Hemoglobin mass conc (Bld) 14.2 g/dL Normal 13.9-16.[address] [facility] Comment on above: Order Comment: No: Do not add to previou s draw Performed By: #### 5 0608 ####[facility] [facility].[address] Lymphocytes/100 leukocytes 15.2 % Low 20.0-40.[address] [facility] Comment on above: Order Comment: No: Do not add to previou s draw Performed By: #### 5 0608 ####[facility] [facility].[address] MCH 32.5 pg High 24.0-32.[address] [facility] Comment on above: Order Comment: No: Do not add to previou s draw Performed By: #### 5 0608 ####[facility] MCHC mass conc (RBC) 33.8 g/dL Normal 32.0-36.[address] [facility] Comment on above: Order Comment: No: Do not add to previou s draw Performed By: #### 5 0608 ####[facility] [facility].[address] MCV 96.1 fL Normal 80.0-100.[address] [facility] Comment on above: Order Comment: No: Do not add to previou s draw Performed By: #### 5 0608 ####[facility] [place] [address], [place] METHOD Normal RBC Morphology Normal [facility] Comment on above: Order Comment: No: Do not add to previou s draw Performed By: #### 5 0608 ####[facility] [place] [address], [facility] MONOS 11.8 % High 2-[address] [facility] Comment on above: Order Comment: No: Do not add to previou s draw Performed By: #### 5 0608 ####[facility] [place] [address], [facility] Neutrophils/100 leukocytes 69.8 % Normal 50-[address] [facility] Comment on above: Order Comment: No: Do not add to previou s draw Performed By: #### 5 0608 ####[facility] [place] [address], [facility] PLAT CNT 168 Thou/mm3 Normal 100-[address] [facility] Comment on above: Order Comment: No: Do not add to previou s draw Performed By: #### 5 0608 ####[facility] WBC (Leukocytes) 10.8 Thou/mm3 High 4.0-10.[address] [facility] Comment on above: Order Comment: No: Do not add to previou s draw Performed By: #### 5 0608 ####[facility] CPKon 06-18-2017 Creatine kinase (CK) 586 U/L High 30-[address] [facility] Comment on above: Performed By: #### 02934, 50696, 70097, 86260, 32220 ####[facility] MAGNESIUM BLOODon 06-18-2017 Magnesium 1.9 mg/dL Normal 1.9-2.[address] [facility] Comment on above: Order Comment: No: Do not add to previou s draw Performed By: #### 5 0608 ####[facility] [place] [address], [facility] MYOGLOBINon 06-18-2017 Myoglobin 353 ng/mL Critically high 0-[address] [facility] Comment on above: Result Comment: A DOUBLING OF VALUES FRO M SERIAL BLOOD COLLECTIONS(1 - 2 HOURS APART) IS MORE INDICATIVE OF A M.I.THAN THE ABSOLUTE VALUE. Performed By: #### 4 1000, 13795, 07994, 54484, 82550 ####[facility] [place] [address], [facility] PHOSPHORUS BLOODon 8 Phosphate 3.7 mg/dL Normal 2.5-5.[address] [facility] Comment on above: Order Comment: No: Do not add to previou s draw Performed By: #### 5 0608 ####[facility] [place] [address], [facility] BASIC METABOLIC PANELon Calcium 8.4 mg/dL Low 8.6-10.[address] [facility] Comment on above: Order Comment: No: Do not add to previou s draw Performed By: #### 5 0608 ####[facility] [place] [address], [facility] Chloride 110 mmol/L High 98-[address] [facility] Comment on above: Order Comment: No: Do not add to previou s draw Performed By: #### 5 0608 ####[facility] [place] [address], [facility] CO2 25 mmol/L Normal 21-[address] [facility] Comment on above: Order Comment: No: Do not add to previou s draw Performed By: #### 5 0608 ####[facility] [place] [address], [facility] Creatinine 0.95 mg/dL Normal 0.70-1.[address] [facility] Comment on above: Order Comment: No: Do not add to previou s draw Performed By: #### 5 0608 ####[facility] [place] [address], [facility] eGFR (black) mL/min/{1.73_m2} Normal >[address] [facility] Comment on above: Order Comment: No: Do not add to previou s draw Result Comment: Calc ulation may not be valid for patients over 70 years Performed By: #### 5 0608 ####[facility] [place] [address], [facility] eGFR (non-black) mL/min/{1.73_m2} Normal >[address] [facility] Comment on above: Order Comment: No: Do not add to previou s draw Result Comment: Calc ulation may not be valid for patients over 70 years Performed By: #### 5 0608 ####[facility] [place] [address], [facility] Glucose mass conc 107 mg/dL High 70-[address] [facility] Comment on above: Order Comment: No: Do not add to previou s draw Performed By: #### 5 0608 ####[facility] [place] [address], [place] Potassium molar conc 3.5 mmol/L Normal 3.5-5.[address] [facility] Comment on above: Order Comment: No: Do not add to previou s draw Performed By: #### 5 0608 ####[facility] [place] [address], [place] Sodium 141 mmol/L Normal 136-[address] [facility] Comment on above: Order Comment: No: Do not add to previou s draw Performed By: #### 5 0608 ####[facility] [place] [address], [place] Urea nitrogen 23 mg/dL Normal 7-[address] [facility] Comment on above: Order Comment: No: Do not add to previou s draw Performed By: #### 5 0608 ####[facility] CBC COMPLETE BLOOD COUNTon 0 06-17-2017 Erythrocyte distribution width Auto Ratio (RBC) 13.7 % Normal 11.5-16.[address] [facility] Comment on above: Order Comment: No: Do not add to previou s draw Performed By: #### 5 0608 ####[facility] Erythrocytes (RBC) 4.45 mill/mm3 Normal 4.30-5.[address] [facility] Comment on above: Order Comment: No: Do not add to previou s draw Performed By: #### 5 0608 ####[facility] [facility].[address] Hematocrit (HCT) 42.9 % Normal 39.0-55.[address] [facility] Comment on above: Order Comment: No: Do not add to previou s draw Performed By: #### 5 0608 ####[facility] [facility].[address] Hemoglobin mass conc (Bld) 14.3 g/dL Normal 13.9-16.[address] [facility] Comment on above: Order Comment: No: Do not add to previou s draw Performed By: #### 5 0608 ####[facility] [facility].[address] MCH 32.1 pg High 24.0-32.[address] [facility] Comment on above: Order Comment: No: Do not add to previou s draw Performed By: #### 5 0608 ####[facility] [facility] [place] [address], [facility] MCHC mass conc (RBC) 33.3 g/dL Normal 32.0-36.[address] [facility] Comment on above: Order Comment: No: Do not add to previou s draw Performed By: #### 5 0608 ####[facility] [place] [address], [facility] MCV 96.3 fL Normal 80.0-100.[address] [facility] Comment on above: Order Comment: No: Do not add to previou s draw Performed By: #### 5 0608 ####[facility] [place] [address].[address] PLAT CNT 138 Thou/mm3 Normal 100-[address] [facility] Comment on above: Order Comment: No: Do not add to previou s draw Performed By: #### 5 0608 ####[address] WBC (Leukocytes) 10.7 Thou/mm3 High 4.0-10.[address] [facility] Comment on above: Order Comment: No: Do not add to previou s draw Performed By: #### 5 0608 ####[address] MYOGLOBINon 06-17-2017 Myoglobin 700 ng/mL Critically high 0-[address] [facility] Comment on above: Result Comment: A DOUBLING OF VALUES FRO M SERIAL BLOOD COLLECTIONS(1 - 2 HOURS APART) IS MORE INDICATIVE OF A M.I.THAN THE ABSOLUTE VALUE. Performed By: #### 5 0608 ####[address] LUMBAR SPINE WO CONTRA STon 06-16-[address] LUMBAR SPINE WO CONTRAST [facility] [address]jiq[address] [place] [address] Patient Name: DESEAN LANDRY : 2Sex: MAge: Race: WhiteMRN: [id number]. Location: [id number] Status: IVisit #: [id number] Date: 06/16/2017 10:45:00 AMCompleted Date: 06/16/2017 11:31 AMRequesting Provider: NADEEN SALCEDO Attending Provider: NADEEN SALCEDO Report Copy To: Signs & Symptoms: Back Pain (specify level)History: Patient history not availableComments: R/O Fractures, If Other selected, state reason for examExam: 3D CT LUMBAR SPINE WO CONTRASTAccession #: [id number] 3D CT LUMBAR SPINE WO CONTRAST 06/16/2017 [...] findings. Electronically signed by:Srinath Meyer. Transcribed by: [email or web address], User Resident: PAOLA WOLFElectronically Signed by: SRINATH MEYER @ 06/16/2017 12:13 PMI personally read this/these film(s) with this resident Normal [facility] Comment on above: Order Comment: No: Do not add to previou s draw 3D CT THORACIC SPINE WO CONT RASTon 06-16-[address] THORACIC SPINE WO CONTRAST [facility] Ynfijuwrl[address] [place] [id number] Patient Name: DESEAN LANDRY : 1940ex: MAge: Race: WhiteMRN: [id number]. Location: [id number] Status: IVisit #: [id number] Date: 06/16/2017 10:45:00 AMCompleted Date: 06/16/2017 11:32 AMRequesting Provider: NADEEN SALCEDO Attending Provider: NADEEN SALCEDO Report Copy To: Signs & Symptoms: Back Pain (specify level)History: Patient history not availableComments: R/O Fractures, History of Fall and c/o Back Pain. Rule out fractureExam: 3D CT THORACIC SPINE WO CONTRASTAccession #: [id number] 3D CT THORACIC SPINE WO CONTRAST 06/16/2017 [...] findings. Electronically signed by:Srinath Meyer. Transcribed by: [email or web address], User Resident: CAN HARRISElectronically Signed by: SRINATH MEYER @ 06/16/2017 12:03 PMI personally read this/these film(s) with this resident Normal [facility] Comment on above: Order Comment: No: Do not add to previou s draw BASIC METABOLIC PANELon Calcium 7.9 mg/dL Low 8.6-10.[address] [facility] Comment on above: Order Comment: No: Do not add to previou s draw Performed By: #### 0 0071, 29143 ####[facility] [place] [address], [facility] Chloride 112 mmol/L High 98-[address] [facility] Comment on above: Order Comment: No: Do not add to previou s draw Performed By: #### 0 0071, 60657 ####[facility] [facility] [place] [address], [facility] CO2 22 mmol/L Normal 21-[address] [facility] Comment on above: Order Comment: No: Do not add to previou s draw Performed By: #### 0 0071, 79374 ####[place] [address] [place] [address], [facility] Creatinine 1.05 mg/dL Normal 0.70-1.[address] [facility] Comment on above: Order Comment: No: Do not add to previou s draw Performed By: #### 0 0071, 27916 ####[place] [address] [facility].[address] eGFR (black) mL/min/{1.73_m2} Normal >[address] [facility] Comment on above: Order Comment: No: Do not add to previou s draw Result Comment: Calc ulation may not be valid for patients over 70 years Performed By: #### 0 0071, 13843 ####[place] [address] [facility].[address] eGFR (non-black) mL/min/{1.73_m2} Normal >60 [facility] Comment on above: Order Comment: No: Do not add to previou s draw Result Comment: Calc ulation may not be valid for patients over 70 years Performed By: #### 0 0071, 27359 ####[facility] [place] [address], [facility] Glucose mass conc 102 mg/dL High 70-[address] [facility] Comment on above: Order Comment: No: Do not add to previou s draw Performed By: #### 0 0071, 15147 ####[facility] [place] [address], [facility] Potassium molar conc 4.0 mmol/L Normal 3.5-5.[address] [facility] Comment on above: Order Comment: No: Do not add to previou s draw Performed By: #### 0 0071, 07405 ####[facility] Sodium 139 mmol/L Normal 136-[address] [facility] Comment on above: Order Comment: No: Do not add to previou s draw Performed By: #### 0 0071, 03282 ####[facility] [facility].[address] Urea nitrogen 20 mg/dL Normal 7-[address] [facility] Comment on above: Order Comment: No: Do not add to previou s draw Performed By: #### 0 0071, 19316 ####[facility] [facility].[address] BNP (B-TYPE NATRIURETIC PEPT DEANNE)on 06-16-2017 BNP 1298 pg/mL High 0-[address] [facility] Comment on above: Order Comment: No: Do not add to previou s draw Result Comment: Give n the appropriate clinical setting a BNP result of >100 pg/mLindicates congestive heart failure. Performed By: #### 5 0608 ####[facility] CBC COMPLETE BLOOD COUNTon 0 06-16-2017 Erythrocyte distribution width Auto Ratio (RBC) 13.7 % Normal 11.5-16.[address] [facility] Comment on above: Order Comment: No: Do not add to previou s draw Performed By: #### 0 0071, 55660 ####[facility] [place] [address], [facility] Erythrocytes (RBC) 4.24 mill/mm3 Low 4.30-5.[address] [facility] Comment on above: Order Comment: No: Do not add to previou s draw Performed By: #### 0 0071, 93741 ####[facility] Hematocrit (HCT) 40.7 % Normal 39.0-55.[address] [facility] Comment on above: Order Comment: No: Do not add to previou s draw Performed By: #### 0 0071, 90136 ####[facility] Hemoglobin mass conc (Bld) 13.6 g/dL Low 13.9-16.[address] [facility] Comment on above: Order Comment: No: Do not add to previou s draw Performed By: #### 0 1, 37606 ####[facility] MCH 32.1 pg High 24.0-32.[address] [facility] Comment on above: Order Comment: No: Do not add to previou s draw Performed By: #### 0 70, 85243 ####[facility] MCHC mass conc (RBC) 33.4 g/dL Normal 32.0-36.[address] [facility] Comment on above: Order Comment: No: Do not add to previou s draw Performed By: #### 0 0071, 26117 ####[facility] [facility].[address] MCV 96.1 fL Normal 80.0-100.[address] [facility] Comment on above: Order Comment: No: Do not add to previou s draw Performed By: #### 0 0071, 86209 ####[facility] [place] [address], [facility] PLAT CNT 120 Thou/mm3 Normal 100-[address] [facility] Comment on above: Order Comment: No: Do not add to previou s draw Performed By: #### 0 0071, 98824 ####[place] [address] [address] WBC (Leukocytes) 10.3 Thou/mm3 High 4.0-10.[address] [facility] Comment on above: Order Comment: No: Do not add to previou s draw Performed By: #### 0 0071, 65551 ####[facility] CPKon 06-16-2017 Creatine kinase (CK) 2950 U/L Critically high 30-[address] [facility] Comment on above: Performed By: #### 41192, 96924 ####[facility] [place] [address] CR-PORTABLE CHEST 1 VIEW IMP Emeli 06-16-2017 CR-PORTABLE CHEST 1 VIEW IMPORT Images were obtained outside of [facility] [id number] Normal [facility] CT CHEST WO CONTRASTon 06-16 CT CHEST WO CONTRAST [facility] Umqfokzmf[address] [place] [address] Patient Name: DESEAN LANDRY : 2Sex: MAge: Race: WhiteMRN: [id number]. Location: [id number] Status: IVisit #: [id number] Date: 06/16/2017 5:25:00 PMCompleted Date: 06/16/2017 06:06 PMRequesting Provider: RAFFAELE GARCIA Attending Provider: MATIAS, TOSEEF Report Copy To: Signs & Symptoms: Shortness of BreathHistory: Patient history not availableComments: R/O Pleural Effusion, please comment about pleural effusionExam: CT CHEST WO CONTRASTAccession #: [id number] CT CHEST WO CONTRAST 06/16/2017 6:06 PM [...] findings. Electronically signed by:Xiomara Christine. Transcribed by: [email or web address], User Resident: USNITHA CAMACHOElectronically Signed by: XIOMARA CHRISTINE @ 06/17/2017 01:24 PMI personally read this/these film(s) with this resident Normal [facility] Comment on above: Order Comment: No: Do not add to previou s draw CT-3D CT LUMBAR SPINE WO CON TRAST IMPORTon 06-16-2017 CT-3D CT LUMBAR SPINE WO CONTRAST IMPORT Images were obtained outside of [facility] [id number] Normal [facility] CT-3D CT THORACIC SPINE WO C ONTRAST IMPORTon 06-16-2017 CT-3D CT THORACIC SPINE WO CONTRAST IMPORT Images were obtained outside of [facility] [id number] Normal [facility] CT-CT CHEST WO CONTRAST IMPO RTon 06-16-2017 CT-CT CHEST WO CONTRAST IMPORT Images were obtained outside of [facility] [id number] Normal [facility] MYOGLOBINon 06-16-2017 Myoglobin 872 ng/mL Critically high 0-[address] [facility] Comment on above: Result Comment: A DOUBLING OF VALUES FRO M SERIAL BLOOD COLLECTIONS(1 - 2 HOURS APART) IS MORE INDICATIVE OF A M.I.THAN THE ABSOLUTE VALUE. Performed By: #### 0 0071, 66654 ####[address] PORTABLE CHEST 1 VIEWon PORTABLE CHEST [address] [facility] [address]qbppdhlq[address] [place] [address] Patient Name: DESEAN LANDRY : 2Sex: MAge: Race: WhiteMRN: [id number]. Location: [id number] Status: IVisit #: [id number] Date: 06/16/2017 12:50:00 PMCompleted Date: 06/16/2017 01:22 PMRequesting Provider: NADEEN SALCEDO Attending Provider: NADEEN SACLEDO Report Copy To: Signs & Symptoms: O2 DesaturationHistory: Patient history not availableComments: R/O AspirationExam: PORTABLE CHEST 1 VIEWAccession #: [id number] PORTABLE CHEST 1 VIEW 06/16/2017 1:22 PM [...] chest. Electronically signed by:Srinath Meyer. Transcribed by: [email or web address], User Resident: Electronically Signed by: SRINATH MEYER @ 06/16/2017 01:25 PM Normal [facility] Comment on above: Order Comment: No: Do not add to previou s draw PROTHROMBIN TIMEon 8 INR Coag RelTime (PPP) 1.51 {INR} High 0.91-1.[address] [facility] Comment on above: Order Comment: No: [...] OF ACTION, CLINICALEFFECTIVENESS, AND OPTIMAL THERAPEUTIC RANGE. [id number];108:231S-246S. Performed By: #### 5 0608 ####[facility] [facility].[address] Prothrombin time (PT) Coag time (PPP) 18.4 s High 12.3-14.[address] [facility] Comment on above: Order Comment: No: Do not add to previou s draw Result Comment: ALL RESULTS MUST BE INTERPRETED WITH RESPECT TO BLOOD DRAWING ARTIFACTOR DILUTION ERROR OF ANTICOAGULANT AT THE TIME OF SAMPLING. Performed By: #### 5 0608 ####[facility] [facility].[address] BASIC METABOLIC PANELon Calcium 8.0 mg/dL Low 8.6-10.[address] [facility] Comment on above: Order Comment: No: Do not add to previou s draw Performed By: #### 0 0071, 86850, 28688, 55978 ####[facility] [place] [address], [facility] Chloride 109 mmol/L High 98-[address] [facility] Comment on above: Order Comment: No: Do not add to previou s draw Performed By: #### 0 0071, 88511, 36853, 27994 ####[facility] [place] [address], [facility] CO2 21 mmol/L Normal 21-[address] [facility] Comment on above: Order Comment: No: Do not add to previou s draw Performed By: #### 0 0071, 15167, 05642, 51932 ####[facility] [place] [address], [facility] Creatinine 1.15 mg/dL Normal 0.70-1.[address] [facility] Comment on above: Order Comment: No: Do not add to previou s draw Performed By: #### 0 0071, 95785, 91374, 02465 ####[facility], [place] [id number] [place] [address] eGFR (black) mL/min/{1.73_m2} Normal >[address] [facility] Comment on above: Order Comment: No: Do not add to previou s draw Result Comment: Calc ulation may not be valid for patients over 70 years Performed By: #### 0 0071, 79069, 53084, 84282 ####[facility] [place] [address], [facility] eGFR (non-black) mL/min/{1.73_m2} Normal >[address] [facility] Comment on above: Order Comment: No: Do not add to previou s draw Result Comment: Calc ulation may not be valid for patients over 70 years Performed By: #### 0 0071, 09572, 60569, 99987 ####[facility] [place] [address], [facility] Glucose mass conc 117 mg/dL High 70-[address] [facility] Comment on above: Order Comment: No: Do not add to previou s draw Performed By: #### 0 0071, 44718, 81428, 06557 ####[facility] [place] [address], [facility] Potassium molar conc 3.9 mmol/L Normal 3.5-5.[address] [facility] Comment on above: Order Comment: No: Do not add to previou s draw Performed By: #### 0 0071, 26237, 24272, 72661 ####[facility] [place] [address], [facility] Sodium 138 mmol/L Normal 136-[address] [facility] Comment on above: Order Comment: No: Do not add to previou s draw Performed By: #### 0 0071, 00656, 65110, 99980 ####[facility] Urea nitrogen 23 mg/dL Normal 7-[address] [facility] Comment on above: Order Comment: No: Do not add to previou s draw Performed By: #### 0 0071, 04809, 61148, 54173 ####[facility], [place] [id number] [place] [address] CBC COMPLETE BLOOD COUNTon 0 06-15-2017 Erythrocyte distribution width Auto Ratio (RBC) 13.7 % Normal 11.5-16.[address] [facility] Comment on above: Order Comment: No: Do not add to previou s draw Performed By: #### 5 0608 ####[facility] [place] [address], [facility] Erythrocytes (RBC) 4.44 mill/mm3 Normal 4.30-5.[address] [facility] Comment on above: Order Comment: No: Do not add to previou s draw Performed By: #### 5 0608 ####[facility] Hematocrit (HCT) 42.7 % Normal 39.0-55.[address] [facility] Comment on above: Order Comment: No: Do not add to previou s draw Performed By: #### 5 0608 ####[facility] Hemoglobin mass conc (Bld) 14.5 g/dL Normal 13.9-16.[address] [facility] Comment on above: Order Comment: No: Do not add to previou s draw Performed By: #### 5 0608 ####[facility] [facility].[address] MCH 32.7 pg High 24.0-32.[address] [facility] Comment on above: Order Comment: No: Do not add to previou s draw Performed By: #### 5 0608 ####[facility] [facility].[address] MCHC mass conc (RBC) 34.0 g/dL Normal 32.0-36.[address] [facility] Comment on above: Order Comment: No: Do not add to previou s draw Performed By: #### 5 0608 ####[facility] [facility].[address] MCV 96.1 fL Normal 80.0-100.[address] [facility] Comment on above: Order Comment: No: Do not add to previou s draw Performed By: #### 5 0608 ####[facility] [facility].[address] PLAT CNT 134 Thou/mm3 Normal 100-[address] [facility] Comment on above: Order Comment: No: Do not add to previou s draw Performed By: #### 5 0608 ####[facility] WBC (Leukocytes) 11.3 Thou/mm3 High 4.0-10.[address] [facility] Comment on above: Order Comment: No: Do not add to previou s draw Performed By: #### 5 0608 ####[facility] [facility].[address] CPKon 06-15-2017 Creatine kinase (CK) 7925 U/L Critically high 30-[address] [facility] Comment on above: Order Comment: No: Do not add to previou s draw Performed By: #### 0 0071, 90107 ####[place] [address] [facility].[address] MAGNESIUM BLOODon 06-15-2017 Magnesium 2.4 mg/dL Normal 1.9-2.[address] [facility] Comment on above: Performed By: #### 64364, 55513 ####[facility] [address] PHOSPHORUS BLOODon 8 Phosphate 2.6 mg/dL Normal 2.5-5.[address] [facility] Comment on above: Performed By: #### 04036, 13824 ####[address] BASIC METABOLIC PANELon 12-3 Calcium 8.3 mg/dL Low 8.6-10.[address] [facility] Comment on above: Order Comment: No: Do not add to previou s draw Performed By: #### 4 1000, 33957, 06183, 27614, 62668 ####[facility] [facility].[address] Chloride 107 mmol/L Normal 98-[address] [facility] Comment on above: Order Comment: No: Do not add to previou s draw Performed By: #### 4 1000, 41714, 37831, 14760, 38856 ####[facility] [place] [address], [facility] CO2 23 mmol/L Normal 21-[address] [facility] Comment on above: Order Comment: No: Do not add to previou s draw Performed By: #### 4 1000, 53553, 69612, 74129, 50547 ####[facility] [place] [address], [facility] Creatinine 1.25 mg/dL Normal 0.70-1.[address] [facility] Comment on above: Order Comment: No: Do not add to previou s draw Performed By: #### 4 1000, 51933, 40652, 06990, 74971 ####[facility] [place] [address], [facility] eGFR (black) mL/min/{1.73_m2} Normal >[address] [facility] Comment on above: Order Comment: No: Do not add to previou s draw Result Comment: Calc ulation may not be valid for patients over 70 years Performed By: #### 4 1000, 38223, 31028, 45081, 47366 ####[facility] [place] [address], [facility] eGFR (non-black) 56 ml/min/1.73sq m Abnormal >[address] [facility] Comment on above: Order Comment: No: Do not add to previou s draw Result Comment: Calc ulation may not be valid for patients over 70 years Performed By: #### 4 1000, 80613, 93453, 99921, 39843 ####[facility] [place] [address], [facility] Glucose mass conc 109 mg/dL High 70-[address] [facility] Comment on above: Order Comment: No: Do not add to previou s draw Performed By: #### 4 1000, 77522, 15489, 21604, 47909 ####[facility] [place] [address], [facility] Potassium molar conc 4.3 mmol/L Normal 3.5-5.[address] [facility] Comment on above: Order Comment: No: Do not add to previou s draw Performed By: #### 4 1000, 97561, 42968, 24985, 68183 ####[facility] Sodium 136 mmol/L Normal 136-[address] [facility] Comment on above: Order Comment: No: Do not add to previou s draw Performed By: #### 4 1000, 27768, 35424, 29954, 70840 ####[facility] Urea nitrogen 25 mg/dL Normal 7-[address] [facility] Comment on above: Order Comment: No: Do not add to previou s draw Performed By: #### 4 1000, 55841, 41477, 27114, 85195 ####[facility] CBC COMPLETE BLOOD COUNTon 1 Erythrocyte distribution width Auto Ratio (RBC) 13.8 % Normal 11.5-16.[address] [facility] Comment on above: Order Comment: No: Do not add to previou s draw Performed By: #### 5 0608 ####[facility] Erythrocytes (RBC) 4.83 mill/mm3 Normal 4.30-5.[address] [facility] Comment on above: Order Comment: No: Do not add to previou s draw Performed By: #### 5 0608 ####[facility] [place] [address], [facility] Hematocrit (HCT) 46.7 % Normal 39.0-55.[address] [facility] Comment on above: Order Comment: No: Do not add to previou s draw Performed By: #### 5 0608 ####[facility] Hemoglobin mass conc (Bld) 15.8 g/dL Normal 13.9-16.[address] [facility] Comment on above: Order Comment: No: Do not add to previou s draw Performed By: #### 5 0608 ####[facility] MCH 32.7 pg High 24.0-32.[address] [facility] Comment on above: Order Comment: No: Do not add to previou s draw Performed By: #### 5 0608 ####[facility] [facility].[address] MCHC mass conc (RBC) 33.9 g/dL Normal 32.0-36.[address] [facility] Comment on above: Order Comment: No: Do not add to previou s draw Performed By: #### 5 0608 ####[facility] [facility].[address] MCV 96.6 fL Normal 80.0-100.[address] [facility] Comment on above: Order Comment: No: Do not add to previou s draw Performed By: #### 5 0608 ####[facility] [facility].[address] PLAT CNT 135 Thou/mm3 Normal 100-[address] [facility] Comment on above: Order Comment: No: Do not add to previou s draw Performed By: #### 5 0608 ####[facility] [facility].[address] WBC (Leukocytes) 15.7 Thou/mm3 High 4.0-10.[address] [facility] Comment on above: Order Comment: No: Do not add to previou s draw Performed By: #### 5 0608 ####[facility] [facility].[address] CPKon 06-14-2017 Creatine kinase (CK) 97734 U/L Critically high 30-[address] [facility] Comment on above: Performed By: #### 85056, 25764, 65533, 59541, 67899 ####[facility] [place] [address], [facility] MAGNESIUM BLOODon 06-14-2017 Magnesium 2.8 mg/dL High 1.9-2.[address] [facility] Comment on above: Order Comment: No: Do not add to previou s draw Performed By: #### 4 1000, 69990, 77403, 48343, 67883 ####[facility] [place] [address], [facility] PHOSPHORUS BLOODon 7 Phosphate 3.3 mg/dL Normal 2.5-5.[address] [facility] Comment on above: Order Comment: No: Do not add to previou s draw Performed By: #### 4 1000, 05142, 49214, 88480, 65169 ####[facility] TSHon 06-14-2017 Thyroid stimulating hormone (TSH) 2.65 MICRO-IU/ML Normal 0.34-5.[address] [facility] Comment on above: Performed By: #### 48587, 41181, 38418, 93418, 26921 ####[facility] BASIC METABOLIC PANELon 05-17 Calcium 8.4 mg/dL Low 8.6-10.[address] [facility] Comment on above: Order Comment: No: Do not add to previou s draw Performed By: #### 0 0071, 26565 ####[facility] [place] [address], [facility] Chloride 105 mmol/L Normal 98-[address] [facility] Comment on above: Order Comment: No: Do not add to previou s draw Performed By: #### 0 0071, 02505 ####[facility] [place] [address], [facility] CO2 26 mmol/L Normal 21-[address] [facility] Comment on above: Order Comment: No: Do not add to previou s draw Performed By: #### 0 0071, 83928 ####[facility] [place] [address], [facility] Creatinine 1.26 mg/dL Normal 0.70-1.[address] [facility] Comment on above: Order Comment: No: Do not add to previou s draw Performed By: #### 0 0071, 37952 ####[facility] [place] [address], [facility] eGFR (black) mL/min/{1.73_m2} Normal >[address] [facility] Comment on above: Order Comment: No: Do not add to previou s draw Result Comment: Calc ulation may not be valid for patients over 70 years Performed By: #### 0 0071, 40064 ####[facility] [place] [address], [facility] eGFR (non-black) 56 ml/min/1.73sq m Abnormal >[address] [facility] Comment on above: Order Comment: No: Do not add to previou s draw Result Comment: Calc ulation may not be valid for patients over 70 years Performed By: #### 0 0071, 99900 ####[facility] [place] [address], [facility] Glucose mass conc 106 mg/dL High 70-[address] [facility] Comment on above: Order Comment: No: Do not add to previou s draw Performed By: #### 0 0071, 27887 ####[facility] [place] [address], [facility] Potassium molar conc 4.8 mmol/L Normal 3.5-5.[address] [facility] Comment on above: Order Comment: No: Do not add to previou s draw Performed By: #### 0 0071, 46761 ####[facility] Sodium 138 mmol/L Normal 136-[address] [facility] Comment on above: Order Comment: No: Do not add to previou s draw Performed By: #### 0 0071, 85802 ####[facility] Urea nitrogen 23 mg/dL Normal 7-[address] [facility] Comment on above: Order Comment: No: Do not add to previou s draw Performed By: #### 0 0071, 80288 ####[facility] CPKon 06-13-2017 Creatine kinase (CK) 08778 U/L Critically high 30-[address] [facility] Comment on above: Order Comment: No: Do not add to previou s draw Performed By: #### 0 0071, 52556 ####[place] [address] [facility].[address] History and Physicalon 06-13 History and Physical [id number] Admitted: 06/13/2017 Date of : 1940 Attending Physician: Arpan Camacho MD Room #: [id number] Discharge Date: HISTORY AND PHYSICALPRIMARY CARE PHYSICIAN: [...] activated [facility] to [facility] Emergency Department. Overthere, the patient had initial workup revealed severe rhabdomyolysis, sothe patient was referred to the [facility] for further evaluationand management. Denying any chest [...] Signed by:Arpan Camacho MD 06/22/2017 07:28 A __BERHANE Hayesate Dict: 06/13/2017/06:07 P/Mariangel Hayes Trans: 06/13/2017 06:38 P/[id number] Normal [facility] Progress note 02-18-2023 Note Date & Type Note Facility 02-18-2023 Note [place] [facility] - [facility] Subjective Desean Landry Jr. is [...] normal ventricular function, fixed inferior defect (prior DE vs. artifact), normal wall motion, no ischemia. [...] Update 07/08/2017: He was admitted recently to [facility] after falling and having rhabdomyolysis. He was hydrated. He did well. This was possibly related to deconditioning and he is getting physical therapy. He will be soon discharged to home from the residential. otherwise he has no issues. Update 02/04/2018: [...] (more content not included)... [facility] Progress note 12-05-2022 Note Date & Type Note Facility 12-05-2022 Note [place] [facility] Consul t Note Reason for visit: [...] 12 seconds 05/[address] wolf HPI: Dseean Landry Jr. is a 82 y.o. year [...] is accompanied today by his power of clerk of scales. He is tolerating his DOAC with no [...] (more content not included)... [facility] Progress note 12-05-2022 Note Date & Type Note Facility 12-05-2022 Note Review of Systems All other systems reviewed and are negative. [facility] Progress note 09-10-2022 Note Date & Type Note Facility 09-10-2022 Note Patient seen for wou nd check s/p [employer] pacemaker placement on 09/01/2022 for AF [...] x7 days. Prescription sent. [facility] Progress note 09-02-2022 Note Date & [...] concerns at this time. [facility] Progress note 09-02-2022 Note Date & Type Note Facility 09-02-2022 Note Social Work [employer] jaspreet et with patient to discuss dc [...] needs at this time. [facility] Procedure note 09-01-2022 Note Date & Type Note Facility 03-20-2023 Note SINGLE CHAMBER PACEM JULIUS IMPLANT PROCEDURE NOTE DATE OF PROCEDURE: 09/01/2022 PERFORMING PHYSICIAN: Dr. Daiman Wolf SALESPERSON CORSETS: Dr.Chandramohan Camarillo CONSENT: Patient/POA LOCATION: EP Lab PROCEDURE PERFORMED: 1. Implantation of single chamber PPM ([employer]) 2. Ultrasound guided venous access INDICATIONS: [...] using modified seldinger technique using a 5 Cambodian micropunture needle with ultrasound guidance with some difficulty. 0.35??? wire was placed. Local infiltration of 1% Lidocaine was performed, and an incision was created in the left upper chest with prior incision extended. Dissection was then performed using cautery down to the fascial plane above the muscle. Gentle dissection was performed, and a small pocket was made enough for the device. 6 Cambodian Safe sheath was placed over the wire. An active fixation [employer] pacing lead was then delivered through the 6Fsheath to the right ventricle. After confirmation of lead position on orthogonal views (BELTR[place]N and TREMAINE) to confirm septal position, the screw was activated, and the lead was placed in the right ventricular mid cavity towards the septum. After confirmation of good sensing parameters, injury pattern and pacing thresholds, 10V pacing was done and no diaphragmatic stimulation was noted. It was then secured in the pocket using three 1-0 silk sutures. A [employer] pacemaker generator was then burped with [...] Damian Wolf Cardiac Electrophysiology [facility] Clinical Note 09-01-2022 Note Date & Type Note Facility 09-01-2022 Note Patient: Desean crowley Jr. Procedure Information Date/Time: 09/01/22 1330 Procedure: Implant PPM Location: [facility] MOTOR VEHICLE OR CARAVAN SALESPERSON 1 / [facility] (Cath) Providers: Damian Wolf MD Clinical information reviewed: Tobacco Allergies Meds Med Hx Surg Hx Fam Hx Physical Exam Airway Mallampati: II TM distance: >3 FB Neck ROM: full Cardiovascular Dental Pulmonary Abdominal Anesthesia Plan ASA 2 CSE Anesthetic plan and risks discussed with patient and healthcare power of clerk of scales. Use of blood products discussed with patient who. Additional Equipment Requests [facility] Summary Purpose Family History No Family [...] section and content) DATE CREATED AUTHOR 12/08/2017 [facility] DATE CREATED AUTHOR AUTHOR'S ORGANIZ ATION 05/18/2018 [facility] DATE CREATED AUTHOR AUTHOR'S ORGANIZ ATION 01/16/2021 [facility] DATE CREATED AUTHOR AUTHOR'S ORGANIZ ATION 06/06/2021 [facility] DATE CREATED AUTHOR AUTHOR'S ORGANIZ ATION 09/02/2022 [facility] DATE CREATED AUTHOR AUTHOR'S ORGANIZ ATION 08/24/2023 [facility] FOR RECORDS PERTAINING TO PATIENTS WHO [...] BE BASED ON THE PRIMARY CLINICAL RECORDS. [employer] provides no warranty or guarantee of the accuracy or completeness of information in this document.
[2024-01-14 20:41] VITALS: BP 133/83; PULSE 60; TEMP 36.6; O2SAT 93; BMI 28.0
[2024-01-14] MEDS: APIXABAN 5 MG TABLET PO (21:05)
[2024-01-14] MEDS: 0.9 % SODIUM CHLORIDE 1,000 ML 75 ML IV (21:05)
[2024-01-14] MEDS: ATORVASTATIN CALCIUM 10 MG TABLET 20 MG PO (21:11)
[2024-01-14 21:55] LABS: Glucometer 79 mg/dL (74-106)
[2024-01-14 22:25] VITALS: O2SAT 92
[2024-01-14 23:33] VITALS: BP 141/74; PULSE 60; TEMP 36.4; O2SAT 96
[2024-01-15] VITALS (8 sets, daily range): BP systolic 113–150; BP diastolic 58–79; PULSE 57–60; TEMP 36.3–36.4; O2SAT 95–97
[2024-01-15 06:20] LABS: Basophils Absolute Auto 0.1 10^3/uL (0.0-0.1); Basophils Percent Auto 1.2 % (0.2-2.0); Eosinophils Absolute Auto 0.3 10^3/uL (0.0-0.7); Eosinophils Percent Auto 3.2 % (0.9-7.0); Hematocrit 42.5 % (42.0-54.0); Hemoglobin 13.5 g/dL (14.0-18.0); Immature Granulocytes Abs Auto 0.03 10^3/uL (0.00-0.03); Immature Granulocytes Pct Auto 0.3 % (0.0-0.5); Lymphocytes Absolute Auto 1.8 10^3/uL (1.2-3.8); Lymphocytes Percent Auto 20.9 % (20.5-60.0); Mean Corpuscular HGB Conc 31.8 g/dL (29.9-35.2); Mean Corpuscular Volume 97.7 fL (80.0-94.0); Mean Platelet Volume 10.3 fL (9.5-13.5); Monocytes Absolute Auto 1.1 10^3/uL (0.3-0.8); Monocytes Percent Auto 12.2 % (1.7-12.0); Neutrophils Absolute Auto 5.4 10^3/uL (1.4-6.5); Neutrophils Percent Auto 62.2 % (43.0-75.0); Platelet Count 191 10^3/uL (150-450); Red Blood Count 4.35 10^6/uL (4.70-6.10); Red Cell Distribution Width 13.5 % (11.0-15.0); White Blood Count 8.6 10^3/uL (4.0-11.0)
[2024-01-15 06:28] LABS: INR 1.12; Partial Thromboplastin Time 31.4 sec (22.3-36.2); Prothrombin Time 11.7 sec (9.0-11.6)
[2024-01-15 06:37] LABS: Alanine Aminotransferase 13 U/L (16-63); Albumin Level 2.9 g/dL (3.4-5.0); Alkaline Phosphatase 71 U/L (46-116); Anion Gap 12.1; Aspartate Amino Transferase 13 U/L (15-37); BUN Creatinine Ratio 12.4; Bilirubin Total 0.7 mg/dL (0.2-1.0); Calcium 8.8 mg/dL (8.5-10.1); Carbon Dioxide 26.1 mmol/L (21.0-32.0); Chloride 107 mmol/L (98-107); Estimated GFR (African America >60 (>=60); Estimated GFR (Non-African Ame >60 (>=60); Glucose 71 mg/dL (74-106); Magnesium 1.8 mg/dL (1.8-2.4); Phosphorus 3.7 mg/dL (2.6-4.7); Potassium 4.2 mmol/L (3.5-5.1); Sodium 141 mmol/L (136-145); Total Protein 5.9 g/dL (6.4-8.2)
--- NOTE | 2024-01-15 07:30 | P.HP_ITS ---
HPI H&P: HPI History of Present Illness Chief complaint: POSS CELLULITIS Lower Extremity Pain Narrative: Patient was a recent admitted and discharged for failed outpatient treatment of cellulitis. Was treated initially with amoxicillin, admitted after that failed, sent home on cefdinir and doxycycline. Erythema and swelling and pain progressed. Miesha presented to the emergency room. With 2 failed outpatient treatments for his cellulitis he is readmitted for IV antibiotics and may need longer-term IV antibiotics When I saw patient up on the medical surgical floor, he was resting comfortably in bed. States no significant pain at rest only with ambulation. Denies fever or chills, denied any other complaints. Opioid HPI Opioid Management Most Recent Pain and Opioid Data: Last Pain Scale 5 01/15/24 07:59 Last Pain Assessment 01/15/24 07:59 Last MAR Pain Assessment 01/14/24 18:10 Last ORT Total Score 0 01/14/24 20:41 Last ORT Risk Category Low Risk 01/14/24 20:41 Review of Systems ROS Status of ROS 10 or more systems reviewed and unremark able except as noted in history and below PFSH PFS Medical History (Updated 01/14/24 @ 20:47 by Kristie Montoya) Cellulitis ?L03.90 - Cellulitis, unspecified (ICD-10) High cholesterol ?E78.00 - Pure hypercholesterolemia, unspecified (ICD-10) Afib ?I48.91 - Unspecified atrial fibrillation (ICD-10) Edema ?R60.9 - Edema, unspecified (ICD-10) Surgical History (Updated 01/14/24 @ 20:47 by Kristie Montoya) FHx: cataracts ?Z83.518 - Family history of other specified eye disorder (ICD-10) Cardiac pacemaker ?Z95.0 - Presence of cardiac pacemaker (ICD-10) Social History (Updated 01/14/24 @ 20:48 by Kristie Montoya) Within the past year, how often did you have a drink containing alcohol: never Within the past year, how often did you have six or more drinks on one occasion: never Score interpretation: A score less than 4 is consistent with normal alcohol consumption. Smoking status: Former smoker Non-prescribed substance use: denies use Previous occupational history: disability Known occupational exposures/hazards: No Highest level of school completed/degree received: 10th grade Are you now , , , , never or living with a partner: never In a typical week, how many times do you talk on the telephone with family, friends, or neighbors: 3 or more times per week How often do you get together with friends or relatives: 3 or more times per week How often do you attend anabaptist or hinduism services: never Do you belong to any clubs or organizations such as anabaptist groups unions, [employer] or athletic groups, or school groups: no Total score: 1 Score interpretation: A score of less than or equal to 1 indicates the most socially isolated. Little interest or pleasure in doing things: not at all Feeling down, depressed, or hopeless: not at all Feel stressed/tense/nervous/anxious/difficulty sleeping: not at all Due to disability, difficulty making decisions: No Do you think of yourself as: straight/heterosexual Gender Identity: male Meds Home Medications and Allergies Home Medications ?Medication ?Instructions ?Recorded ?Confirmed ?Type apixaban 5 mg tablet (Eliquis) 5 mg PO Q12H 08/19/23 01/15/24 History cholecalciferol (vitamin D3) 50 50 mcg PO DAILY 08/19/23 01/15/24 History mcg (2,000 unit) capsule (Vitamin D3) dicyclomine 20 mg tablet 20 mg PO TID 08/19/23 01/15/24 History glimepiride 2 mg tablet 2 mg PO DAILY 08/19/23 01/15/24 History spironolactone 25 mg tablet 25 mg PO DAILY 08/19/23 01/15/24 History aspirin 81 mg chewable tablet 1 tab PO DAILY 01/12/24 01/15/24 History simvastatin 20 mg tablet 20 mg PO QPM 01/12/24 01/15/24 History cefdinir 300 mg capsule 600 mg (2 x 300 mg) PO DAILY #20 01/13/24 01/15/24 Rx caps doxycycline monohydrate 100 mg 100 mg PO BID 10 days #20 caps 01/13/24 01/15/24 Rx capsule Allergies Allergy/AdvReac Type Severity Reaction Status Date / Time No Known Drug Allergies Allergy Verified 08/19/23 13:53 Exam Constitutional Vital Signs, click to edit/add: Last Vital Signs Temp 97.4 F L 01/15/24 03:45 Pulse 60 01/15/24 03:45 Resp 18 01/15/24 03:45 BP 116/79 01/15/24 03:45 Pulse Ox 96 01/15/24 05:00 O2 Del Method Room Air 01/15/24 05:00 Documenting provider has reviewed patient's vital signs: yes Common normals: no apparent distress Chest Common normals: inspection of chest normal and palpation of chest normal Respiratory Common normals: normal respiratory effort and no retractions Cardio Common normals: regular rate and regular rhythm GI Common normals: Normal to inspection, nondistended, normoactive bowel sounds present and soft to palpation; tender Palpation: tender (More in left lower quadrant, no rebound) Extremity Common normals: abnormal to inspection (Erythema and swelling worse than previous discharge. Possible abscess) Results Labs Labs: Short CBC 01/14/24 01/15/24 Range/Units 17:47 06:04 WBC 10.7 8.6 (4.0-11.0) 10^3/uL Hgb 14.3 13.5 L (14.0-18.0) g/dL Hct 43.3 42.5 (42.0-54.0) % Plt Count 221 191 (150-450) 10^3/uL BMP 01/14/24 01/15/24 17:47 06:04 Sodium 140 141 Potassium 4.2 4.2 Chloride 104 107 Carbon Dioxide 28.4 26.1 BUN 15.0 12.0 Creatinine 1.20 0.97 Glucose 121 H 71 L Calcium 9.3 8.8 Liver Function 01/14/24 01/15/24 Range/Units 17:47 06:04 Total Bilirubin 0.5 0.7 (0.2-1.0) mg/dL AST 14 L 13 L (15-37) U/L ALT 16 13 L (16-63) U/L Alkaline Phosphatase 90 71 (46-116) U/L Albumin 3.4 2.9 L (3.4-5.0) g/dL ABG ABG results: 01/14/24 17:47 VBG pH 7.350 VBG pCO2 49.9 Assessment and Plan Assessment and Plan (1) Cellulitis of left leg: (2) Fall: (3) Skin tear: Plan Patient admitted with cellulitis with failed outpatient treatment now on 2 occasions. Progressively worse at home. ER workup still with normal white blood cell count. Inflammatory markers are higher. On my evaluation he feels that he may have a fluid collection, possible abscess related to the initial abrasion. Will check CT scan. Consult to wound. Try to culture the drainage. Change patient to Zosyn and clindamycin for Pseudomonas and MRSA coverage NIDDM-continue with home medications-somewhat low this morning Iron deficiency anemia-monitor daily Peripheral vascular disease-continue with aspirin and Eliquis Mild protein calorie malnutrition based on NIH criteria for albumin-diet management Admission status: This is patient's second failed outpatient treatment. Initially with amoxicillin, admitted given IV medicines and was better sent home on cefdinir and doxycycline, has deteriorated since that point. Patient may need long-term IV antibiotics. Medically necessary treatment will span more than 2 midnights. Inpatient status.
[2024-01-15 07:43] LABS: Erythrocyte Sedimentation Rate 30 mm/hr (<=20)
[2024-01-15 07:45] LABS: C Reactive Protein 2.12 mg/dL (<=0.50)
--- NOTE | 2024-01-15 07:56 | CT_ITS ---
The [address] [address] Patient Name: DESEAN LANDRY MRN: [id number] date: 1940 Sex: M Assigned Patient Location: [place] Current Patient Location: [place] Accession/Order Number: [id number] Exam Date: 01/15/2024 08:25 Report Date: 01/15/2024 09:32 At the request of: DIOGENES CASIANO Procedure: CT lower leg LT w con EXAMINATION: CT lower leg LT w con HISTORY: abscess ; left lower leg swelling, open sores, wound to lateral lower leg is COMPARISON: No relevant comparison available. TECHNIQUE: Multi-planar CT images were created without and/or with IV contrast according to examination type. Dose reduction techniques were achieved by using automated exposure control and/or adjustment of mA and/or kV according to patient size and/or use of iterative reconstruction technique. FINDINGS: BONES: No fracture or bone lesion. SOFT TISSUES: Crescentic shaped heterogeneous hyperdensity within subcutaneous fat lateral aspect of distal lower extremity midway between knee and ankle, 7.0 x 5.0 cm x 1.9 cm in thickness. No free air. Subcutaneous edema throughout the distal lower extremity EFFUSION: None visible. OTHER: Negative. CT/CT lower leg LT w con IMPRESSION: 1. Heterogeneous dense fluid collection versus mass within subcutaneous fat of the lateral mid lower leg corresponding to patient's palpable lump. No free air within the structure to suggest abscess. No significant surrounding inflammatory changes. While this may represent a hematoma, or abscess, neoplasm cannot be excluded. Consider short-term follow-up or ultrasound-guided biopsy. 2. Prominent subcutaneous edema throughout the lower extremity. Electronically authenticated by: MATTHEW SOLIS Date: 01/15/2024 09:32
--- NOTE | 2024-01-15 07:56 | XR_ITS ---
[address] [address] Patient Name: DESEAN LANDRY MRN: [id number] date: 1940 Sex: M Assigned Patient Location: [place] Current Patient Location: [place] Accession/Order Number: [id number] Exam Date: 01/15/2024 08:10 Report Date: 01/15/2024 08:57 At the request of: DIOGENES CASIANO Procedure: XR acute abdomen series EXAMINATION: XR acute abdomen series HISTORY: Left Lower Quadrant pain COMPARISON: XR abdomen with PA chest 05/22/2021 FINDINGS: LUNGS: Mild patchy and strandy opacities within lung bases, right greater than left. Chronic thickening of the lateral lower right pleura, possibly fluid. MEDIASTINUM: No abnormal widening. Normal heart size. Cardiac pacer/AICD. BOWEL GAS PATTERN: Non-obstructed. No abnormal dilation or suspicious fluid levels. FREE AIR: None. CALCIFICATIONS: None significant. BONES: Degenerative changes of the spine and hips. OTHER: Negative. XR/XR acute abdomen series IMPRESSION: 1. Mild bibasilar infiltrates versus atelectasis with likely small amount of underlying scarring. 2. Chronic right lateral pleural thickening versus loculated small pleural effusion. 3. Normal bowel gas pattern. No acute abdominal findings. Electronically authenticated by: MATTHEW SOLIS Date: 01/15/2024 08:57
[2024-01-15] MEDS: GLIMEPIRIDE 2 MG TABLET PO (08:54)
[2024-01-15] MEDS: APIXABAN 5 MG TABLET PO (08:54)
[2024-01-15] MEDS: CLINDAMYCIN PHOSPHATE/D5W 600 MG/50 ML PIGGYBACK 100 MG IV ×3 (08:55→21:16)
[2024-01-15] MEDS: ASPIRIN 81 MG TAB.CHEW PO (08:55)
[2024-01-15] MEDS: SPIRONOLACTONE 25 MG TABLET PO (08:55)
[2024-01-15] MEDS: CHOLECALCIFEROL (VITAMIN D3) 25 MCG/1,000 UNITS TABLET 50 MCG PO (08:55)
--- NOTE | 2024-01-15 09:28 | SWNOTE1 ---
SW stopped in to speak with pt in regards to dc plans. There is a possibility pt will need IV antibiotics at discharge, SNF vs . Pt was getting ready to eat breakfast and preferred to have SW come back in a little bit.
[2024-01-15] MEDS: PIPERACILLIN SODIUM/TAZOBACTAM 3.375 GM in 0.9 % SODIUM CHLORIDE 50 ML IV ×2 (10:39→19:11)
--- NOTE | 2024-01-15 10:41 | SWNOTE1 ---
SW stopped in to speak with pt about the possibility of IV anbx. He would like to wait until his guardian, Paulina, comes in to decide if he will go to rehab for those or home with HH. MICHELA asked permission to call her and pt is alright with this.
--- NOTE | 2024-01-15 10:45 | SWNOTE1 ---
MICHELA called over to Paulina's office, she was out of the office and at the court house, but she will be in to hospital after to see pt.
[2024-01-15 11:52] LABS: Glucometer 108 mg/dL (74-106)
--- NOTE | 2024-01-15 13:03 | P.CN_ITS ---
Consult Note: [facility] Data of Consult Consult date: 01/15/24 Requesting Physician: Vahid Garcia MD Primary Care Provider: Vahid Garcia MD Consult Narrative Reason for consult: left leg mass possible abscess vs hematoma Narrative: Patient is an 83-year-old male with type 2 diabetes and on Eliquis who sustained blunt trauma to his left leg from a car door causing a small wound in his left lateral mid leg. Subsequently, he was admitted last week for left leg cellulitis which improved after 48 hours of IV antibiotics. He was discharged home and upon follow-up with Dr. Garcia his symptoms returned and so was readmitted and restarted on IV antibiotics. CT scan was also obtained which was inconclusive of hematoma versus abscess. He is hemodynamically stable with no leukocytosis but inflammatory markers are elevated. At bedside patient is sitting comfortably in chair but does relate to left leg pain and point tenderness over the lateral mid calf. He relates to swelling and redness as well. His appetite has been good. He has no other complaints cc:: CC: Vahid Garcia MD [facility] Medical History (Updated 01/15/24 @ 13:39 by Geo Li DPM) Cellulitis ?L03.90 - Cellulitis, unspecified (ICD-10) High cholesterol ?E78.00 - Pure hypercholesterolemia, unspecified (ICD-10) Afib ?I48.91 - Unspecified atrial fibrillation (ICD-10) Edema ?R60.9 - Edema, unspecified (ICD-10) Surgical History (Updated 01/14/24 @ 20:47 by Kristie Montoya) FHx: cataracts ?Z83.518 - Family history of other specified eye disorder (ICD-10) Cardiac pacemaker ?Z95.0 - Presence of cardiac pacemaker (ICD-10) Social History (Updated 01/14/24 @ 20:48 by Kristie Montoya) Within the past year, how often did you have a drink containing alcohol: never Within the past year, how often did you have six or more drinks on one occasion: never Score interpretation: A score less than 4 is consistent with normal alcohol consumption. Smoking status: Former smoker Non-prescribed substance use: denies use Previous occupational history: disability Known occupational exposures/hazards: No Highest level of school completed/degree received: 10th grade Are you now , , , , never or living with a partner: never In a typical week, how many times do you talk on the telephone with family, friends, or neighbors: 3 or more times per week How often do you get together with friends or relatives: 3 or more times per week How often do you attend pentecostal or temple services: never Do you belong to any clubs or organizations such as pentecostal groups unions, fraternal or athletic groups, or school groups: no Total score: 1 Score interpretation: A score of less than or equal to 1 indicates the most socially isolated. Little interest or pleasure in doing things: not at all Feeling down, depressed, or hopeless: not at all Feel stressed/tense/nervous/anxious/difficulty sleeping: not at all Due to disability, difficulty making decisions: No Do you think of yourself as: straight/heterosexual Gender Identity: male Meds Home Medications and Allergies Home Medications ?Medication ?Instructions ?Recorded ?Confirmed ?Type apixaban 5 mg tablet (Eliquis) 5 mg PO Q12H 08/19/23 01/15/24 History cholecalciferol (vitamin D3) 50 50 mcg PO DAILY 08/19/23 01/15/24 History mcg (2,000 unit) capsule (Vitamin D3) dicyclomine 20 mg tablet 20 mg PO TID 08/19/23 01/15/24 History glimepiride 2 mg tablet 2 mg PO DAILY 08/19/23 01/15/24 History spironolactone 25 mg tablet 25 mg PO DAILY 08/19/23 01/15/24 History aspirin 81 mg chewable tablet 1 tab PO DAILY 01/12/24 01/15/24 History simvastatin 20 mg tablet 20 mg PO QPM 01/12/24 01/15/24 History cefdinir 300 mg capsule 600 mg (2 x 300 mg) PO DAILY #20 01/13/24 01/15/24 Rx caps doxycycline monohydrate 100 mg 100 mg PO BID 10 days #20 caps 01/13/24 01/15/24 Rx capsule Allergies Allergy/AdvReac Type Severity Reaction Status Date / Time No Known Drug Allergies Allergy Verified 08/19/23 13:53 Exam Narrative Exam Narrative: Left leg: There is a small less than 1 cm wound on the left lateral leg with palpable mass which is exquisitely tender to the touch. There is surrounding erythema which extends to the ankle and to just distal to the tibial tubercle. Patient is able to fire all muscle groups and passive range of motion of left digits elicits no pain. Right leg and foot skin is intact with no signs of infection. Chronic lesser toe contractures are noted bilaterally Constitutional Vital Signs, click to edit/add: Last Vital Signs Temp 97.6 F 01/15/24 11:00 Pulse 58 L 01/15/24 11:00 Resp 18 01/15/24 11:00 BP 120/58 01/15/24 11:00 Pulse Ox 97 01/15/24 11:34 O2 Del Method Room Air 01/15/24 11:34 Results Labs Labs: Short CBC 01/14/24 01/15/24 Range/Units 17:47 05:02 WBC 10.7 8.6 (4.0-11.0) 10^3/uL Hgb 14.3 13.5 L (14.0-18.0) g/dL Hct 43.3 42.5 (42.0-54.0) % Plt Count 221 191 (150-450) 10^3/uL BMP 01/14/24 01/15/24 17:47 05:02 Sodium 140 141 Potassium 4.2 4.2 Chloride 104 107 Carbon Dioxide 28.4 26.1 BUN 15.0 12.0 Creatinine 1.20 0.97 Glucose 121 H 71 L Calcium 9.3 8.8 Liver Function 01/14/24 01/15/24 Range/Units 17:47 05:02 Total Bilirubin 0.5 0.7 (0.2-1.0) mg/dL AST 14 L 13 L (15-37) U/L ALT 16 13 L (16-63) U/L Alkaline Phosphatase 90 71 (46-116) U/L Albumin 3.4 2.9 L (3.4-5.0) g/dL ABG ABG results: 01/14/24 17:47 VBG pH 7.350 VBG pCO2 49.9 Assessment and Plan Assessment and Plan (1) Abscess of left leg excluding foot: (2) Cellulitis of left leg: (3) Fall: (4) Skin tear: Plan Patient seen and evaluated in the presence of his guardian I explained that the mass/fluid collection in his leg is likely secondary to the blunt trauma he sustained prior to his first admission may have resulted in a hematoma which is now gotten infected which should be treated as if it were an abscess especially since he is already failed outpatient antibiotics as well as previous admission and IV antibiotics. He did receive 1 dose of Eliquis this morning as well as ate breakfast and given he is not hemodynamically unstable I recommended that I&D be performed tomorrow N.p.o. after midnight Hold anticoagulation for [address] Garcia (PCP) notified and agrees with plan Dr. Guzman (anesthesia) notified of planned procedure and likely will only require MAC + local Review plan with nursing - [place] scheduled case & notified staff Consent to be signed by guardian as patient is not medically competent
--- NOTE | 2024-01-15 13:10 | SWNOTE1 ---
MICHELA met with Paulina, guardian, and pt in room. MICHELA advised Paulina that there is a chance that pt will need IV anbx at discharge and he can possibly go skilled at facility or home with home health. Paulina and other caregivers would prefer skilled at a facility. SW did let her know that if he does not need IV anbx, then he will not qualify for skilled. He did well with PT and no needs. She voiced understanding. She would like [facility] as first choice. MICHELA advised that [facility] may not have open beds. She voiced understanding. Pt is Medicare and would need a 3 day qualifying stay. SW to reach out to [facility].
--- NOTE | 2024-01-15 13:23 | SWNOTE1 ---
Important Message from Medicare reviewed and discussed with patient's guardian. Pt's guardian verbalized understanding and signed the form. Original given to patient's guardian and copy placed in patient?s chart.
--- NOTE | 2024-01-15 14:09 | SWNOTE1 ---
MICHELA received message from Tata at [facility] and they have a connection with pt's caregiver and they are able to accept pt when ready for dc. MICHELA reached out to Dr. Garcia and pt is having an I&D tomorrow morning and will likely be here thru the weekend. MICHELA updated Tata at [facility]. Referral sent to [facility]. Referral included face sheet, ED note, H&P, provider notes, case management report, wound consult, nursing notes, diagnostic imaging, med list, and PT/OT notes. SW to touch base with Tata at [facility] on Thursday.
[2024-01-15] MEDS: DICYCLOMINE HCL 10 MG CAPSULE 20 MG PO ×2 (14:50→21:16)
--- NOTE | 2024-01-15 16:11 | SWNOTE1 ---
SW updated pt's guardian with the plan for discharge.
[2024-01-15] MEDS: 0.9 % SODIUM CHLORIDE 250 ML 10 ML IV (16:28)
[2024-01-15 16:46] LABS: Glucometer 96 mg/dL (74-106)
[2024-01-15 20:40] LABS: Glucometer 68 mg/dL (74-106)
[2024-01-15] MEDS: ATORVASTATIN CALCIUM 10 MG TABLET 20 MG PO (21:16)
[2024-01-16] VITALS (11 sets, daily range): BP systolic 111–144; BP diastolic 65–78; PULSE 59–75; TEMP 36.1–36.5; O2SAT 94–97
[2024-01-16] MEDS: CLINDAMYCIN PHOSPHATE/D5W 600 MG/50 ML PIGGYBACK 100 MG IV ×4 (02:20→20:58)
[2024-01-16] MEDS: PIPERACILLIN SODIUM/TAZOBACTAM 3.375 GM in 0.9 % SODIUM CHLORIDE 50 ML IV ×3 (03:06→18:02)
[2024-01-16 06:51] LABS: Basophils Absolute Auto 0.1 10^3/uL (0.0-0.1); Basophils Percent Auto 0.8 % (0.2-2.0); Eosinophils Absolute Auto 0.3 10^3/uL (0.0-0.7); Eosinophils Percent Auto 2.6 % (0.9-7.0); Hematocrit 41.3 % (42.0-54.0); Hemoglobin 13.5 g/dL (14.0-18.0); Immature Granulocytes Abs Auto 0.03 10^3/uL (0.00-0.03); Immature Granulocytes Pct Auto 0.3 % (0.0-0.5); Lymphocytes Absolute Auto 1.6 10^3/uL (1.2-3.8); Lymphocytes Percent Auto 16.4 % (20.5-60.0); Mean Corpuscular HGB Conc 32.7 g/dL (29.9-35.2); Mean Corpuscular Hemoglobin 31.3 pg (25.9-34.0); Mean Corpuscular Volume 95.8 fL (80.0-94.0); Mean Platelet Volume 10.2 fL (9.5-13.5); Monocytes Percent Auto 10.4 % (1.7-12.0); Neutrophils Absolute Auto 6.6 10^3/uL (1.4-6.5); Neutrophils Percent Auto 69.5 % (43.0-75.0); Platelet Count 214 10^3/uL (150-450); Red Blood Count 4.31 10^6/uL (4.70-6.10); Red Cell Distribution Width 13.4 % (11.0-15.0); White Blood Count 9.5 10^3/uL (4.0-11.0)
[2024-01-16 07:08] LABS: Anion Gap 10.8; BUN Creatinine Ratio 13.9; C Reactive Protein 3.53 mg/dL (<=0.50); Carbon Dioxide 28.5 mmol/L (21.0-32.0); Chloride 104 mmol/L (98-107); Estimated GFR (African America >60 (>=60); Estimated GFR (Non-African Ame >60 (>=60); Glucose 101 mg/dL (74-106); Potassium 4.3 mmol/L (3.5-5.1); Sodium 139 mmol/L (136-145)
[2024-01-16 07:13] LABS: Erythrocyte Sedimentation Rate 52 mm/hr (<=20)
--- NOTE | 2024-01-16 07:25 | P.PN_ITS ---
Progress Note: Subjective Subjective Interval history: Patient awake and alert with no real significant complaint as long as he is resting, still with pain with ambulation Exam Constitutional Vital Signs, click to edit/add: Last Vital Signs Temp 97.7 F 01/16/24 04:00 Pulse 60 01/16/24 04:00 Resp 18 01/16/24 04:00 BP 130/76 01/16/24 04:00 Pulse Ox 95 01/16/24 04:00 O2 Del Method Room Air 01/16/24 04:00 Documenting provider has reviewed patient's vital signs: yes Common normals: no apparent distress Chest Common normals: inspection of chest normal and palpation of chest normal Respiratory Common normals: normal respiratory effort and no retractions Cardio Common normals: regular rate and regular rhythm GI Common normals: Normal to inspection, nondistended, normoactive bowel sounds present and soft to palpation; tender Palpation: tender (More in left lower quadrant, no rebound) Extremity Common normals: abnormal to inspection (Erythema and swelling persisting) Progress Note: Objective Labs Labs: Short CBC 01/15/24 01/16/24 Range/Units 05:02 06:28 WBC 8.6 9.5 (4.0-11.0) 10^3/uL Hgb 13.5 L 13.5 L (14.0-18.0) g/dL Hct 42.5 41.3 L (42.0-54.0) % Plt Count 191 214 (150-450) 10^3/uL BMP 01/15/24 01/16/24 05:02 06:28 Sodium 141 139 Potassium 4.2 4.3 Chloride 107 104 Carbon Dioxide 26.1 28.5 BUN 12.0 14.0 Creatinine 0.97 1.01 Glucose 71 L 101 Calcium 8.8 9.0 Liver Function 01/15/24 Range/Units 05:02 Total Bilirubin 0.7 (0.2-1.0) mg/dL AST 13 L (15-37) U/L ALT 13 L (16-63) U/L Alkaline Phosphatase 71 (46-116) U/L Albumin 2.9 L (3.4-5.0) g/dL Progress Note: A&P Assessment and Plan (1) Abscess of left leg excluding foot: (2) Cellulitis of left leg: (3) Fall: (4) Skin tear: Plan Admission findings: Patient admitted with cellulitis with failed outpatient treatment now on 2 occasions. Progressively worse at home. ER workup still with normal white blood cell count. Inflammatory markers are higher. On my evaluation he feels that he may have a fluid collection, possible abscess related to the initial abrasion. Abscess left lower extremity with cellulitis-plan for surgical intervention today. Needed to hold anticoagulation for the delay in surgery. Continue with current antibiotics. Culture results hopefully will return tomorrow. And then cultures from surgical wound by Thursday NIDDM-continue with home medications-stable Iron deficiency anemia-monitor daily-stable Peripheral vascular disease-continue with aspirin and Eliquis-restart after surgery Mild protein calorie malnutrition based on NIH criteria for albumin-diet management Admission status: This is patient's second failed outpatient treatment. Initially with amoxicillin, admitted given IV medicines and was better sent home on cefdinir and doxycycline, has deteriorated since that point. Patient may need long-term IV antibiotics. Medically necessary treatment will span more than [address] evidence of abscess with surgical intervention today. Likely here at least 2 more days postop ?
[2024-01-16] MEDS: LACTATED RINGER'S SOLUTION 1,000 ML 50 ML IV (08:18)
--- NOTE | 2024-01-16 09:22 | PM.ORONB ---
Brief Operative Note Date of procedure: 01/16/24 Pre-op diagnosis general: Left leg abscess Post-op diagnosis: same as pre-op Procedure: Procedure performed: Left leg incision and drainage of abscess Indication for procedure: See consultation note Intraoperative findings: Large hematoma without shruthi pus. Erythema on the leg substantially subsided once the hematoma/fluid collection was evacuated Procedure in detail: Patient was identified in preop holding by myself which time correct side and site were marked and consent was reviewed. Patient was brought back to the operating theater placed on table in supine position. IV sedation was administered and the operative extremity was prepped and draped in usual sterile fashion. Local anesthesia was used as a field block utilizing 10 cc of 1% lidocaine plain and 10 cc of 0.5% Marcaine plain. Formal timeout was performed. Incision was placed over the lateral left leg over an area of fluctuance. Blunt dissection was taken through the deeper soft tissues until a large hematoma was encountered. Curettes were used to evacuate the hematoma which extended into the anterior and posterior compartments. Culture swabs were obtained but no shruthi pus was encountered. Surgical site was irrigated with 3 L of normal saline on pulse lavage. Temporary pressure and elevation as well as Shameka hemostatic powder was used to obtain hemostasis. Once hemostasis was obtained hemostatic powder was irrigated and several retention sutures were placed over the proximal and distal aspects of the surgical site. Then quarter inch gauze packing soaked in Betadine was used to pack the wound. A bulky dry sterile dressing consisting of Xeroform, 4 x 4's, ABDs were placed followed by cast padding placed from the forefoot to the popliteal fossa. After several layers of cast padding were applied then Alvarado wrap's were applied followed by additional layers of cast padding and additional layers of Alvarado wrap's under slight compression. Patient tolerated the procedure and anesthesia well and was transferred to the recovery room with vital signs stable and brisk capillary refill to the left toes. Postoperative plan: Transfer back to medical surgical unit once deemed stable by anesthesia Patient may continue to weight-bear as tolerated Outer dressing can be changed as needed or reinforced if strikethrough occurs Packing should be changed in 3 to 5 days -upon discharge home health care or home nurse may change the packing Dr. Garcia notified of my findings and plan. Patient should follow-up in my office within 1 week from discharge Anesthesia: MAC and local Surgeon: Geo Li Estimated blood loss (mL): 100 Tourniquet time (min): 0 Pathology: other (swabs ) Condition: stable Disposition: PACU
[2024-01-16] MEDS: LIDOCAINE HCL 1% 100 MG/10 ML MDV INJ (09:30)
[2024-01-16] MEDS: BUPIVACAINE HCL 0.5% PF 50 MG/10 ML VIAL INJ (09:48)
--- NOTE | 2024-01-16 10:14 | PC.NURSE ---
left toes pink and warm
--- NOTE | 2024-01-16 10:44 | PT.DAILY ---
Physical Therapy Daily Note PT Daily Note/Assess Start: 01/16/24 10:32 Freq: Status: Active Protocol: Document 01/16/24 09:00 BESSIE (Rec: 01/16/24 10:33 BESSIE [id number]) Visit Not Completed Visit Not Completed Visit Not Completed Due to: Pt out of room Other Reason Visit Not Completed Patient in surgery at 9 am Physical Therapy Daily Note/Assessment Time In/Time Out Time In 09:20 Time Out 09:20 GG. Functional Abilities and Goals-Complete for Swing Bed Patients Only [id number]. Self-Care [id number]. Mobility
[2024-01-16] MEDS: ASPIRIN 81 MG TAB.CHEW PO (10:56)
[2024-01-16] MEDS: SPIRONOLACTONE 25 MG TABLET PO (10:56)
[2024-01-16] MEDS: GLIMEPIRIDE 2 MG TABLET PO (10:56)
[2024-01-16] MEDS: TRAMADOL HCL 50 MG TABLET PO (10:56)
[2024-01-16] MEDS: CHOLECALCIFEROL (VITAMIN D3) 25 MCG/1,000 UNITS TABLET 50 MCG PO (10:56)
[2024-01-16 12:14] LABS: Glucometer 162 mg/dL (74-106)
[2024-01-16] MEDS: DICYCLOMINE HCL 10 MG CAPSULE 20 MG PO ×2 (14:28→21:00)
[2024-01-16 16:05] LABS: Glucometer 193 mg/dL (74-106)
[2024-01-16 20:17] LABS: Glucometer 213 mg/dL (74-106)
[2024-01-16] MEDS: TEMAZEPAM 15 MG CAPSULE PO (20:58)
[2024-01-16] MEDS: APIXABAN 5 MG TABLET PO (20:58)
[2024-01-16] MEDS: ATORVASTATIN CALCIUM 10 MG TABLET 20 MG PO (21:00)
[2024-01-17] MEDS: OLANZAPINE 10 MG VIAL 5 MG IM (01:17)
[2024-01-17] MEDS: PIPERACILLIN SODIUM/TAZOBACTAM 3.375 GM in 0.9 % SODIUM CHLORIDE 50 ML IV ×3 (02:01→18:07)
[2024-01-17] MEDS: CLINDAMYCIN PHOSPHATE/D5W 600 MG/50 ML PIGGYBACK 100 MG IV ×4 (02:01→21:57)
[2024-01-17 04:00] VITALS: BP 140/80; PULSE 73; TEMP 36.2; O2SAT 94
[2024-01-17] MEDS: DICYCLOMINE HCL 10 MG CAPSULE 20 MG PO ×3 (05:16→21:03)
[2024-01-17 07:24] VITALS: BP 137/72; PULSE 77; TEMP 36.4; O2SAT 94
[2024-01-17 07:40] LABS: Basophils Percent Auto 0.1 % (0.2-2.0); Hematocrit 37.4 % (42.0-54.0); Hemoglobin 12.3 g/dL (14.0-18.0); Immature Granulocytes Abs Auto 0.06 10^3/uL (0.00-0.03); Immature Granulocytes Pct Auto 0.4 % (0.0-0.5); Lymphocytes Absolute Auto 0.9 10^3/uL (1.2-3.8); Lymphocytes Percent Auto 5.7 % (20.5-60.0); Mean Corpuscular HGB Conc 32.9 g/dL (29.9-35.2); Mean Corpuscular Hemoglobin 31.9 pg (25.9-34.0); Mean Corpuscular Volume 96.9 fL (80.0-94.0); Mean Platelet Volume 10.4 fL (9.5-13.5); Monocytes Absolute Auto 1.5 10^3/uL (0.3-0.8); Monocytes Percent Auto 8.9 % (1.7-12.0); Neutrophils Percent Auto 84.9 % (43.0-75.0); Platelet Count 224 10^3/uL (150-450); Red Blood Count 3.86 10^6/uL (4.70-6.10); Red Cell Distribution Width 13.3 % (11.0-15.0); White Blood Count 16.5 10^3/uL (4.0-11.0)
[2024-01-17 08:05] LABS: Erythrocyte Sedimentation Rate 54 mm/hr (<=20)
[2024-01-17] MEDS: SPIRONOLACTONE 25 MG TABLET PO (08:21)
[2024-01-17] MEDS: GLIMEPIRIDE 2 MG TABLET PO (08:21)
[2024-01-17] MEDS: ASPIRIN 81 MG TAB.CHEW PO (08:22)
[2024-01-17] MEDS: CHOLECALCIFEROL (VITAMIN D3) 25 MCG/1,000 UNITS TABLET 50 MCG PO (08:22)
[2024-01-17 08:25] LABS: Anion Gap 11.2; BUN Creatinine Ratio 20.2; C Reactive Protein 2.74 mg/dL (<=0.50); Carbon Dioxide 25.6 mmol/L (21.0-32.0); Chloride 102 mmol/L (98-107); Estimated GFR (African America >60 (>=60); Estimated GFR (Non-African Ame >60 (>=60); Glucose 143 mg/dL (74-106); Potassium 4.8 mmol/L (3.5-5.1); Sodium 134 mmol/L (136-145)
--- NOTE | 2024-01-17 08:54 | P.PN_ITS ---
Progress Note: Subjective Subjective Interval history: Up in chair. Looks good this morning. No complaints. Exam Constitutional Vital Signs, click to edit/add: Last Vital Signs Temp 97.6 F 01/17/24 07:24 Pulse 77 01/17/24 07:24 Resp 20 01/17/24 07:24 BP 137/72 01/17/24 07:24 Pulse Ox 94 L 01/17/24 07:24 O2 Del Method Room Air 01/17/24 07:24 Documenting provider has reviewed patient's vital signs: yes Common normals: no apparent distress Chest Common normals: inspection of chest normal and palpation of chest normal Respiratory Common normals: normal respiratory effort and no retractions Cardio Common normals: regular rate and regular rhythm GI Common normals: Normal to inspection, nondistended, normoactive bowel sounds present and soft to palpation; tender Palpation: tender (More in left lower quadrant, no rebound) Extremity Common normals: abnormal to inspection (Large dressing in place left leg) Progress Note: Objective Labs Labs: Short CBC 01/17/24 Range/Units 06:14 WBC 16.5 H (4.0-11.0) 10^3/uL Hgb 12.3 L (14.0-18.0) g/dL Hct 37.4 L (42.0-54.0) % Plt Count 224 (150-450) 10^3/uL BMP 01/17/24 06:14 Sodium 134 L Potassium 4.8 Chloride 102 Carbon Dioxide 25.6 BUN 19.0 H Creatinine 0.94 Glucose 143 H Calcium 9.0 Progress Note: A&P Assessment and Plan (1) Abscess of left leg excluding foot: (2) Cellulitis of left leg: (3) Fall: (4) Skin tear: Plan Admission findings: Patient admitted with cellulitis with failed outpatient treatment now on 2 occasions. Progressively worse at home. ER workup still with normal white blood cell count. Inflammatory markers are higher. On my evaluation he feels that he may have a fluid collection, possible abscess related to the initial abrasion. Abscess left lower extremity with cellulitis-surgery yesterday. Evacuated a fairly large hematoma. Cultures pending. White blood cell count elevated today. I suspect without fever this is likely related to process of the surgery yesterday. Check on cultures. Maintain current antibiotics. NIDDM-continue with home medications-stable Iron deficiency anemia-monitor daily-stable Peripheral vascular disease-continue with aspirin and Eliquis-restart after surgery Mild protein calorie malnutrition based on NIH criteria for albumin-diet management Admission status: This is patient's second failed outpatient treatment. Initially with amoxicillin, admitted given IV medicines and was better sent home on cefdinir and doxycycline, has deteriorated since that point. Patient may need long-term IV antibiotics. Medically necessary treatment will span more than [address] evidence of abscess with surgical intervention today. Culture results should be back on 01/18, possible discharge then ?
[2024-01-17 10:56] LABS: Glucometer 116 mg/dL (74-106)
[2024-01-17 11:23] VITALS: BP 118/65; PULSE 69; TEMP 36.6; O2SAT 94
[2024-01-17 11:43] VITALS: O2SAT 97
[2024-01-17 15:08] VITALS: BP 122/76; PULSE 60; TEMP 36.6; O2SAT 96
[2024-01-17 16:03] LABS: Glucometer 100 mg/dL (74-106)
[2024-01-17 19:36] VITALS: BP 134/62; PULSE 60; TEMP 36.4; O2SAT 97
[2024-01-17] MEDS: TRAMADOL HCL 50 MG TABLET PO (20:40)
[2024-01-17] MEDS: ATORVASTATIN CALCIUM 20 MG TABLET PO (21:03)
[2024-01-17 21:07] LABS: Glucometer 82 mg/dL (74-106)
[2024-01-18] VITALS (8 sets, daily range): BP systolic 118–155; BP diastolic 58–75; PULSE 60–66; TEMP 36.3–36.7; O2SAT 93–96
[2024-01-18] MEDS: CLINDAMYCIN PHOSPHATE/D5W 600 MG/50 ML PIGGYBACK 100 MG IV ×4 (02:00→21:34)
[2024-01-18] MEDS: PIPERACILLIN SODIUM/TAZOBACTAM 3.375 GM in 0.9 % SODIUM CHLORIDE 50 ML IV ×3 (02:48→17:27)
[2024-01-18] MEDS: DICYCLOMINE HCL 10 MG CAPSULE 20 MG PO ×3 (05:06→21:37)
[2024-01-18 05:47] LABS: Basophils Absolute Auto 0.1 10^3/uL (0.0-0.1); Basophils Percent Auto 0.7 % (0.2-2.0); Eosinophils Absolute Auto 0.1 10^3/uL (0.0-0.7); Eosinophils Percent Auto 0.9 % (0.9-7.0); Hematocrit 39.6 % (42.0-54.0); Hemoglobin 12.9 g/dL (14.0-18.0); Immature Granulocytes Abs Auto 0.07 10^3/uL (0.00-0.03); Immature Granulocytes Pct Auto 0.6 % (0.0-0.5); Lymphocytes Absolute Auto 2.1 10^3/uL (1.2-3.8); Lymphocytes Percent Auto 16.9 % (20.5-60.0); Mean Corpuscular HGB Conc 32.6 g/dL (29.9-35.2); Mean Corpuscular Hemoglobin 31.3 pg (25.9-34.0); Mean Corpuscular Volume 96.1 fL (80.0-94.0); Mean Platelet Volume 10.1 fL (9.5-13.5); Monocytes Absolute Auto 1.2 10^3/uL (0.3-0.8); Monocytes Percent Auto 9.8 % (1.7-12.0); Neutrophils Absolute Auto 8.8 10^3/uL (1.4-6.5); Neutrophils Percent Auto 71.1 % (43.0-75.0); Platelet Count 248 10^3/uL (150-450); Red Blood Count 4.12 10^6/uL (4.70-6.10); Red Cell Distribution Width 13.7 % (11.0-15.0); White Blood Count 12.4 10^3/uL (4.0-11.0)
[2024-01-18 05:56] LABS: Anion Gap 12.3; BUN Creatinine Ratio 20.2; C Reactive Protein 2.25 mg/dL (<=0.50); Calcium 8.9 mg/dL (8.5-10.1); Carbon Dioxide 25.7 mmol/L (21.0-32.0); Chloride 106 mmol/L (98-107); Estimated GFR (African America >60 (>=60); Estimated GFR (Non-African Ame >60 (>=60); Glucose 74 mg/dL (74-106); Sodium 140 mmol/L (136-145)
[2024-01-18 05:57] LABS: Erythrocyte Sedimentation Rate 77 mm/hr (<=20)
[2024-01-18 07:24] LABS: Glucometer 95 mg/dL (74-106)
--- NOTE | 2024-01-18 08:07 | P.PN_ITS ---
Progress Note: Subjective Subjective Interval history: Patient without new complaints today. Still with pain in the left lower extremity. Exam Constitutional Vital Signs, click to edit/add: Last Vital Signs Temp 97.6 F 01/18/24 08:02 Pulse 60 01/18/24 08:02 Resp 16 01/18/24 08:02 BP 126/68 01/18/24 08:02 Pulse Ox 93 L 01/18/24 08:02 O2 Del Method Room Air 01/18/24 08:02 Documenting provider has reviewed patient's vital signs: yes Common normals: no apparent distress Chest Common normals: inspection of chest normal and palpation of chest normal Respiratory Common normals: normal respiratory effort and no retractions Cardio Common normals: regular rate and regular rhythm GI Common normals: Normal to inspection, nondistended, normoactive bowel sounds present and soft to palpation; tender Palpation: tender (More in left lower quadrant, no rebound) Extremity Common normals: abnormal to inspection (Large dressing in place left leg) Progress Note: Objective Labs Labs: Short CBC 01/18/24 Range/Units 05:03 WBC 12.4 H (4.0-11.0) 10^3/uL Hgb 12.9 L (14.0-18.0) g/dL Hct 39.6 L (42.0-54.0) % Plt Count 248 (150-450) 10^3/uL BMP 01/17/24 01/18/24 06:14 05:03 Sodium 134 L 140 Potassium 4.8 4.0 Chloride 102 106 Carbon Dioxide 25.6 25.7 BUN 19.0 H 21.0 H Creatinine 0.94 1.04 Glucose 143 H 74 Calcium 9.0 8.9 Progress Note: A&P Assessment and Plan (1) Abscess of left leg excluding foot: (2) Cellulitis of left leg: (3) Fall: (4) Skin tear: Plan Admission findings: Patient admitted with cellulitis with failed outpatient treatment now on 2 occasions. Progressively worse at home. ER workup still with normal white blood cell count. Inflammatory markers are higher. On my evaluation he feels that he may have a fluid collection, possible abscess related to the initial abrasion. Abscess left lower extremity with cellulitis-surgery post date 2. Evacuated a fairly large hematoma. Cultures pending. White blood cell count improved from previous day. Still suspect spike is due to the surgical intervention. Cultures hopefully back later today or tomorrow, CRP is better by the SR is elevated NIDDM-continue with home medications-stable Iron deficiency anemia-monitor daily-stable Peripheral vascular disease-continue with aspirin and Eliquis-restart after surgery Mild protein calorie malnutrition based on NIH criteria for albumin-diet management Admission status: This is patient's second failed outpatient treatment. Initially with amoxicillin, admitted given IV medicines and was better sent home on cefdinir and doxycycline, has deteriorated since that point. Patient may need long-term IV antibiotics. Medically necessary treatment will span more than 2 midnights. Status post surgical intervention, we are postop day 2. Awaiting cultures. Likely at least 1 additional day to eating sensitivities. Possibly to more ?
[2024-01-18] MEDS: SPIRONOLACTONE 25 MG TABLET PO (08:15)
[2024-01-18] MEDS: CHOLECALCIFEROL (VITAMIN D3) 25 MCG/1,000 UNITS TABLET 50 MCG PO (08:15)
[2024-01-18] MEDS: GLIMEPIRIDE 2 MG TABLET PO (08:15)
[2024-01-18] MEDS: APIXABAN 5 MG TABLET PO ×2 (08:15→21:37)
[2024-01-18] MEDS: ASPIRIN 81 MG TAB.CHEW PO (08:16)
--- NOTE | 2024-01-18 09:21 | SWNOTE1 ---
MICHELA sent updated physician notes, surgery note, med list, vitals, labs, and nursing notes to Samantha at [facility]. No discharge today, waiting on cultures.
--- NOTE | 2024-01-18 10:35 | REH.PTDLY ---
Physical Therapy Daily Note PT Daily Note/Assess Start: 01/16/24 10:32 Freq: Status: Active Protocol: Document 01/18/24 10:33 EBEN (Rec: 01/18/24 10:34 EBEN [id number]) Visit Not Completed Other Reason Visit Not Completed Pt declines PT 2x this morning , pt just got back to bed on second attempt. Pt reports having diarrhea this morning and has had to run to bathroom several times with nursing and once with OT. Does not want to get back out of bed at this time. Physical Therapy Daily Note/Assessment Time In 10:30 Time Out 10:32
--- NOTE | 2024-01-18 10:47 | PM.PN ---
Progress Note: Subjective Subjective Interval history: Patient seen at bedside and has no new complaints today. Relate to pain in the left lower extremity and points to the lateral calf at the surgical site as point of maximum tenderness. Exam Narrative Exam Narrative: Dressing is clean dry and intact. Patient is able to wiggle his toes and there is no pain out of proportion. No calf pain on light squeeze bilaterally Constitutional Vital Signs, click to edit/add: Last Vital Signs Temp 97.6 F 01/18/24 08:02 Pulse 60 01/18/24 08:02 Resp 16 01/18/24 08:04 BP 126/68 01/18/24 08:02 Pulse Ox 93 L 01/18/24 08:02 O2 Del Method Room Air 01/18/24 08:02 Progress Note: Objective Labs Labs: Short CBC 01/18/24 Range/Units 05:03 WBC 12.4 H (4.0-11.0) 10^3/uL Hgb 12.9 L (14.0-18.0) g/dL Hct 39.6 L (42.0-54.0) % Plt Count 248 (150-450) 10^3/uL BMP 01/18/24 05:03 Sodium 140 Potassium 4.0 Chloride 106 Carbon Dioxide 25.7 BUN 21.0 H Creatinine 1.04 Glucose 74 Calcium 8.9 Progress Note: A&P Assessment and Plan (1) Abscess of left leg excluding foot: (2) Fall: (3) Skin tear: Plan Patient still has leukocytosis but likely from recent surgery. Keep dressing clean dry and intact today and will have packing change by wound nurse tomorrow. Packing should be changed every 3 to [address] Garcia Patient will follow-up within 1 to 2 weeks in the wound center
[2024-01-18 11:18] LABS: Glucometer 89 mg/dL (74-106)
--- NOTE | 2024-01-18 13:18 | SWNOTE1 ---
MICHELA spoke to Katherine at [facility] and updated her on pt's status. She informed SW that pt has life alert at home and does have caregivers coming in as well.
[2024-01-18 16:04] LABS: Glucometer 93 mg/dL (74-106)
[2024-01-18 20:04] LABS: Glucometer 92 mg/dL (74-106)
[2024-01-18] MEDS: ATORVASTATIN CALCIUM 20 MG TABLET PO (21:37)
[2024-01-18] MEDS: ACETAMINOPHEN 500 MG TABLET 1000 MG PO (21:38)
[2024-01-18] MEDS: TRAMADOL HCL 50 MG TABLET PO (21:38)
[2024-01-19] MEDS: PIPERACILLIN SODIUM/TAZOBACTAM 3.375 GM in 0.9 % SODIUM CHLORIDE 50 ML IV (01:21)
[2024-01-19] MEDS: CLINDAMYCIN PHOSPHATE/D5W 600 MG/50 ML PIGGYBACK 100 MG IV ×2 (02:00→09:45)
[2024-01-19 04:00] VITALS: BP 131/69; PULSE 60; TEMP 36.3; O2SAT 92
[2024-01-19 04:49] VITALS: O2SAT 98
[2024-01-19] MEDS: DICYCLOMINE HCL 10 MG CAPSULE 20 MG PO (05:49)
[2024-01-19 06:47] LABS: Basophils Absolute Auto 0.1 10^3/uL (0.0-0.1); Basophils Percent Auto 1.1 % (0.2-2.0); Eosinophils Absolute Auto 0.1 10^3/uL (0.0-0.7); Eosinophils Percent Auto 1.2 % (0.9-7.0); Hematocrit 39.4 % (42.0-54.0); Hemoglobin 12.9 g/dL (14.0-18.0); Immature Granulocytes Abs Auto 0.06 10^3/uL (0.00-0.03); Immature Granulocytes Pct Auto 0.6 % (0.0-0.5); Lymphocytes Absolute Auto 1.6 10^3/uL (1.2-3.8); Mean Corpuscular HGB Conc 32.7 g/dL (29.9-35.2); Mean Corpuscular Hemoglobin 31.2 pg (25.9-34.0); Mean Corpuscular Volume 95.2 fL (80.0-94.0); Monocytes Absolute Auto 1.3 10^3/uL (0.3-0.8); Neutrophils Absolute Auto 7.3 10^3/uL (1.4-6.5); Neutrophils Percent Auto 70.1 % (43.0-75.0); Platelet Count 246 10^3/uL (150-450); Red Blood Count 4.14 10^6/uL (4.70-6.10); Red Cell Distribution Width 13.8 % (11.0-15.0); White Blood Count 10.4 10^3/uL (4.0-11.0)
[2024-01-19 06:53] LABS: Anion Gap 15.2; BUN Creatinine Ratio 15.5; C Reactive Protein 4.29 mg/dL (<=0.50); Calcium 9.1 mg/dL (8.5-10.1); Carbon Dioxide 24.8 mmol/L (21.0-32.0); Chloride 104 mmol/L (98-107); Estimated GFR (African America >60 (>=60); Estimated GFR (Non-African Ame >60 (>=60); Glucose 92 mg/dL (74-106); Sodium 140 mmol/L (136-145)
[2024-01-19 07:11] LABS: Erythrocyte Sedimentation Rate 118 mm/hr (<=20)
[2024-01-19 07:54] VITALS: BP 136/75; PULSE 72; TEMP 36.5; O2SAT 96
--- NOTE | 2024-01-19 08:01 | CM.NOTE ---
2nd Important Message from Medicare discussed with pt, denies questions or concerns.
--- NOTE | 2024-01-19 08:12 | P.DS_ITS ---
DS: Providers Provider Date of admission: 01/14/24 20:16 Primary care physician: Vahid Garcia MD Consults: 01/15/24 07:19 Consult to Pharmacy Routine Consulting Provider: Reason for consultation: Please [place] me when Med Rec is Updated Has provider been notified: No Occupational Therapy Eval and Treat Routine Reason for consultation: Only if needed for Rehab Has provider been notified: No Physical Therapy Eval and Treat Routine Reason for consultation: Eval and Treat Has provider been notified: No 01/15/24 07:56 Consult to Wound Care Routine Consulting Provider: Eddie Lujan Reason for consultation: possible abscess Has provider been notified: No DS: Diagnosis Discharge Diagnosis (1) Abscess of left leg excluding foot: (2) Fall: (3) Skin tear: Plan Admission findings: Patient admitted with cellulitis with failed outpatient treatment now on 2 occasions. Progressively worse at home. ER workup still with normal white blood cell count. Inflammatory markers are higher. On my evaluation he feels that he may have a fluid collection, possible abscess related to the initial abrasion. Abscess left lower extremity with cellulitis-surgery post date 2. Evacuated a fairly large hematoma. Cultures pending. White blood cell count improved from previous day. Still suspect spike is due to the surgical intervention. Cultures hopefully back later today or tomorrow, CRP is better by the SR is elevated NIDDM-continue with home medications-stable Iron deficiency anemia-monitor daily-stable Peripheral vascular disease-continue with aspirin and Eliquis-restart after surgery Mild protein calorie malnutrition based on NIH criteria for albumin-diet management Admission status: This is patient's second failed outpatient treatment. Initially with amoxicillin, admitted given IV medicines and was better sent home on cefdinir and doxycycline, has deteriorated since that point. Patient may need long-term IV antibiotics. Medically necessary treatment will span more than 2 midnights. Status post surgical intervention, we are postop day 2. Awaiting cultures. Likely at least 1 additional day to eating sensitivities. Possibly to more ? ? DS: Summary Hospital Course Hospital Course: Patient was seen and evaluated in the emergency room after recent discharge for cellulitis of lower extremity, this is a second failed outpatient treatment for the cellulitis. When I talked to the emergency room practitioner, there is expressed that the erythema and spread outside the line of demarcation. On my evaluation the following morning was about at the line of demarcation but also clearly showing an abscess. CT scan confirmed. Taken to the operating room the following day for evacuation of large hematoma. Currently the wound is being packed. Dressing changes per podiatry. Cultures are still pending but white blood cell count has returned to normal. At this point he can be discharged safely to rehab for physical therapy and dressing changes. Medications to this. I will follow patient once discharged from Status at Discharge Overall status at discharge: patient is not back to baseline Time Spent with Patient Time attestation: Total time spent providing and/or coordinating discharge services: Time spent: greater than 30 minutes Exam Constitutional Vital Signs, click to edit/add: Last Vital Signs Temp 97.7 F 01/19/24 07:54 Pulse 72 01/19/24 07:54 Resp 16 01/19/24 07:55 BP 136/75 01/19/24 07:54 Pulse Ox 96 01/19/24 07:54 O2 Del Method Room Air 01/19/24 07:54 Documenting provider has reviewed patient's vital signs: yes Common normals: no apparent distress Chest Common normals: inspection of chest normal and palpation of chest normal Respiratory Common normals: normal respiratory effort and no retractions Cardio Common normals: regular rate and regular rhythm GI Common normals: Normal to inspection, nondistended, normoactive bowel sounds present and soft to palpation; tender Palpation: tender (More in left lower quadrant, no rebound) Extremity Common normals: abnormal to inspection (Large dressing in place left leg) DS: Data Data Completed and Pending Labs on day of discharge: Labs from last 24 hours 01/19/24 01/18/24 01/18/24 05:13 20:03 16:03 WBC 10.4 RBC 4.14 L Hgb 12.9 L Hct 39.4 L MCV 95.2 H MCH 31.2 MCHC 32.7 RDW 13.8 Plt Count 246 MPV 10.0 Neut % (Auto) 70.1 Lymph % (Auto) 15.0 L Jefferson % (Auto) 12.0 Eos % (Auto) 1.2 Baso % (Auto) 1.1 Neut # (Auto) 7.3 H Lymph # (Auto) 1.6 Jefferson # (Auto) 1.3 H Eos # (Auto) 0.1 Baso # (Auto) 0.1 Abs Immat Gran (auto) 0.06 H Imm/Tot Granulo (auto) 0.6 H ESR 118 H Sodium 140 Potassium 4.0 Chloride 104 Carbon Dioxide 24.8 Anion Gap 15.2 BUN 17.0 Creatinine 1.10 Est GFR ( Amer) >60 Est GFR (Non-Af Amer) >60 BUN/Creatinine Ratio 15.5 Glucose 92 Calcium 9.1 C-Reactive Protein 4.29 H POC Glucose 92 93 01/18/24 11:17 WBC RBC Hgb Hct MCV MCH MCHC RDW Plt Count MPV Neut % (Auto) Lymph % (Auto) Jefferson % (Auto) Eos % (Auto) Baso % (Auto) Neut # (Auto) Lymph # (Auto) Jefferson # (Auto) Eos # (Auto) Baso # (Auto) Abs Immat Gran (auto) Imm/Tot Granulo (auto) ESR Sodium Potassium Chloride Carbon Dioxide Anion Gap BUN Creatinine Est GFR ( Amer) Est GFR (Non-Af Amer) BUN/Creatinine Ratio Glucose Calcium C-Reactive Protein POC Glucose 89 Preliminary micro results at discharge 01/16/24 09:34 Aerobic Culture - Preliminary Abscess - Left 01/14/24 18:05 - Preliminary Blood NO GROWTH AT 36-48 HOURS. FINAL TO FOLLOW. 01/14/24 17:47 Blood Culture Result 1 - Preliminary Blood - Right Forearm NO GROWTH AT 36-48 HOURS. FINAL TO FOLLOW. Discharge Plan Discharge Disposition: Xfer SNF Condition: Good Discharge Medications: New amoxicillin-pot clavulanate 875-125 mg tablet 1 tab PO Q12H Qty: 20 0RF levofloxacin 750 mg tablet 750 mg PO DAILY 10 Days Qty: 10 0RF Continued spironolactone 25 mg tablet 25 mg PO DAILY glimepiride 2 mg tablet 2 mg PO DAILY dicyclomine 20 mg tablet 20 mg PO TID cholecalciferol (vitamin D3) [Vitamin D3] 50 mcg (2,000 unit) capsule 50 mcg PO DAILY Eliquis 5 mg tablet 5 mg PO Q12H aspirin 81 mg tablet,chewable 1 tab PO DAILY simvastatin 20 mg tablet 20 mg PO QPM Discontinued doxycycline monohydrate 100 mg capsule 100 mg PO BID 10 Days Qty: 20 0RF cefdinir 300 mg capsule 600 mg PO DAILY Qty: 20 0RF Print Language: Hebrew Forms: Portal Instructions
--- NOTE | 2024-01-19 09:31 | SWNOTE1 ---
Pt can be discharged to [facility] today for therapy and wound care, he is going skilled. MICHELA sent over dc med rec and dc summary to Samantha at [facility]. MICHELA completed [facility]ENS as well. MICHELA to call pt's guardian in regards to transport.
--- NOTE | 2024-01-19 09:41 | REH.PTDLY ---
Physical Therapy Daily Note PT Daily Note/Assess Start: 01/16/24 10:32 Freq: Status: Active Protocol: Document 01/19/24 09:33 EBEN (Rec: 01/19/24 09:41 [email or web address] [id number]) Physical Therapy Daily Note/Assessment Time In 08:59 Time Out 09:25 Subjective Pt initially declines therapy. With nursing able to talk pt into participating. Pt seems pleasantly confused today Therapeutic Exercise Minutes (minutes) 5 Therapeutic Exercise Units 0 Therapeutic Exercise Treatment Instructed in seated B LE exs 10x ea with exs including LAQ, AP, marching, and hip abd kicks. Therapeutic Activity Minutes (minutes) 20 Therapeutic Activity Units 2 Therapeutic Activity Comments Pt is impulsive. Sit to stand transfers CGA with pt trying to stand on own 2x prior to therapist being ready for him. Cues to sit back down until RW is retrieved. Gait training with RW CGA 20 feet, pt appears to have had an accident so cues to ambulate into restroom. Nurses aide called in to help. Pt uses grab bar to assist with transfers on and off toilet, performed 3x. Standing tolerance of 9 mins with UE support CGA while NA assists with self care. Cues for pt to transfer weight forward at times. No complaints of increased leg pain. Gait another 25 feet back to chair with cues Total Therapy Minutes 25 Total Physical Therapy Units 2 Daily Note Summary Pt pleasantly confused. Improved standing tolerance today. Pt is impulsive and needs CGA for safety with gait using RW.
[2024-01-19] MEDS: GLIMEPIRIDE 2 MG TABLET PO (09:44)
[2024-01-19] MEDS: ASPIRIN 81 MG TAB.CHEW PO (09:45)
[2024-01-19] MEDS: CHOLECALCIFEROL (VITAMIN D3) 25 MCG/1,000 UNITS TABLET 50 MCG PO (09:45)
[2024-01-19] MEDS: SPIRONOLACTONE 25 MG TABLET PO (09:45)
[2024-01-19] MEDS: APIXABAN 5 MG TABLET PO (09:45)
--- NOTE | 2024-01-19 10:22 | SWNOTE1 ---
MICHELA spoke with Paulina, guardian, and she can't transport today and would like SW to set up trips. MICHELA called and set up trips and they will be here between 11:40-12:10. MICHELA notified nursing, [facility], and Paulina of time. Pt is going skilled to [facility].
== END 2024-01-19 11:16 | DRG 638 ==
LOC: ER 19:00 → MS 20:24
PROVIDERS: Physician Assistant; Podiatrist Foot & Ankle Surgery; Registered Nurse; Admitting Provider Family Medicine; Emergency Provider Student in an Organized Health Care Education/Training Program; PCP Family Medicine; Visit Provider Family Medicine
PROC: 0Y9J0ZZ Drainage of Left Lower Leg, Open Approach (ICD-10-PCS; principal; 2024-01-16 09:00)
DX: E11.628 Type 2 diabetes mellitus with other skin complications (principal); E44.1 Mild protein-calorie malnutrition; L02.416 Cutaneous abscess of left lower limb; L03.116 Cellulitis of left lower limb; D50.9 Iron deficiency anemia, unspecified; E11.51 Type 2 diabetes mellitus with diabetic peripheral angiopathy without gangrene; E78.00 Pure hypercholesterolemia, unspecified; I48.91 Unspecified atrial fibrillation; E11.65 Type 2 diabetes mellitus with hyperglycemia; Z95.0 Presence of cardiac pacemaker; Z79.01 Long term (current) use of anticoagulants; Z87.891 Personal history of nicotine dependence; Z79.82 Long term (current) use of aspirin; Z79.899 Other long term (current) drug therapy; Z68.28 Body mass index [BMI] 28.0-28.9, adult
CPT/HCPCS: 36415; 73701; 74022; 80048; 80053; 82800; 82948; 83605; 83735; 83880; 84100; 85025; 85610; 85652; 85730; 86140; 87040; 87070; 87075; 87102; 87116; 87205; 87206; 94761; 96365; 96366; 96367; 96368; 96372; 97161; 97165; 97530; 97535; 99285; 99999; J0665; J0690; J1100; J2250; J2359; J2543; J2704; Q9967

== ENCOUNTER 2024-02-01 15:44 | Outpatient (OUT) | payer MEDICARE, OTHER, MEDICAID, SELFPAY | END 2024-02-01 15:45 | disposition home or self-care (01) | LOC: WC 15:44 | PROVIDERS: PCP Family Medicine; Visit Provider Physician Assistant | DX: T81.89XA Other complications of procedures, not elsewhere classified, initial encounter (principal) | CPT/HCPCS: G0463 ==

== ENCOUNTER 2024-02-29 15:12 | Outpatient (OUT) | payer MEDICARE, OTHER, MEDICAID, SELFPAY | END 2024-02-29 15:13 | disposition home or self-care (01) | LOC: WC 15:12 | PROVIDERS: PCP Family Medicine; Visit Provider Physician Assistant | DX: T81.89XA Other complications of procedures, not elsewhere classified, initial encounter (principal) | CPT/HCPCS: G0463 ==

== ENCOUNTER 2024-03-25 09:44 | Outpatient (OUT) | payer MEDICARE, OTHER, MEDICAID, SELFPAY ==
--- OUTSIDE RECORDS SUMMARY | 2024-03-25 09:48 | XMS_ITS | CCD ---
Author Organization [facility] Care Team Providers Care Cell Inspector Name Role Phone ARPAN CAMACHO Unavailable Unavailable SAHRA GILMORE Unavailable Unavailable GAIL GARCIALAS Unavailable Unavailable FEDERMAN, DIOGENES Unavailable Unavailable LORI, RENDELL Unavailable Unavailable LORI, RENDELL Unavailable Unavailable JOSE ITALO (MATERIAL CONTROL SPECIALIST) Unavailable Unavailable LORI, RENDELL Unavailable Unavailable LORI, RENDELL Unavailable Unavailable BELTRAN, CESAR Unavailable Unavailable BELTRAN, CESAR Unavailable Unavailable BELTRAN, CESAR Unavailable Unavailable BELTRAN, CESAR Unavailable Unavailable BELTRAN, CESAR Unavailable Unavailable BELTRAN, CESAR Unavailable Unavailable [place] Romero, DR SHETTY Primary Care Unavailable HOY ., DR SHETTY Admitting Unavailable HOY ., DR SHETTY Attending Unavailable HOY ., DR SHETTY Consulting Unavailable HOY ., DR SHETTY Primary Care Unavailable HOY ., DR SHETTY Admitting Unavailable HOY ., DR SHETTY Attending Unavailable HOY ., DR SHETTY Consulting Unavailable HOY ., DR SHETTY Primary Care Unavailable DREAD WOLF Admitting Unavailable DREAD WOLF Attending Unavailable DREAD WOLF Consulting Unavailable DR SRINATH MCKEON Consulting [...] Unavailable HOMartin ., DR SHETTY Attending Unavailable HOY ., DR SHETTY Consulting Unavailable [place] ., DR SHETTY Primary Care Unavailable DRAGAN PEPPER Attending Unavailable Problems Active Problems Problem Classification Problem Date Documented Da te Episodic/Chronic Alcohol-related disorders (1 source) Alcohol dependence with withdrawal, unspecified; Translations: [ALCOHOL DEPENDENCE WITH WITHDRAWAL, UNSPECIFIED] Onset: 06-13-2017 Chronic Cardiac dysrhythmias (1 source) Chronic atrial fibrillation; Translations: [CHRONIC ATRIAL FIBRILLATION] Onset: 06-13-2017 Chronic Cardiac dysrhythmias (4 sources) Bradycardia, unspecified; Translations: [BRADYCARDIA UNSPECIFIED] Onset: 08-26-2022 Episodic Chronic obstructive pulmonary disease and bronchiectasis (1 source) Chronic obstructive pulmonary disease, unspecified; Translations: [COPD UNSPECIFIED] Onset: 08-04-2022 Chronic Conduction disorders (2 sources) Presence of cardiac pacemaker; Translations: [Presence of cardiac pacemaker] Onset: 03-16-2024 Chronic Congestive heart failure; nonhypertensive (1 source) Unspecified diastolic (congestive) heart failure; Translations: [UNSPECIFIED DIASTOLIC HEART FAILURE] Onset: 08-04-2022 Chronic Deficiency and other anemia (1 source) Anemia, unspecified; Translations: [ANEMIA UNSPECIFIED] Onset: 08-04-2022 Episodic Diabetes mellitus without complication (1 source) Other abnormal glucose; Translations: [OTHER ABNORMAL GLUCOSE] Onset: 08-04-2022 Episodic Disorders of lipid metabolism (4 sources) Hyperlipidemia, unspecified; Translations: [Mixed hyperlipidemia] Onset: 06-13-2017 Chronic Essential hypertension (7 sources) [...] D DEFICIENCY UNSPECIFIED] Onset: 08-04-2022 Chronic Other diseases of veins and lymphatics (2 sources) Venous insufficiency (chronic) (peripheral); Translations: [Venous insufficiency (chronic) (peripheral)] Onset: 04-21-2022 Episodic Other lower respiratory disease (1 source) Other [...] Classification Problem Date Documented Da te Episodic/Chronic E Codes: Fall (1 source) Unspecified fall, [...] Onset: 03-04-2022 Episodic Other aftercare (1 source) jail (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; Translations: [PRODUCTION CONTROL COORDINATING CLERK (CURRENT) USE OF ANTICOAGULANTS] Onset: 06-13-2017 Episodic Other aftercare (1 source) 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 1940 M Date Provider Department Center 03/16/2024 DRAGAN BALDWIN [facility] Family History Problem Relation Age of Onset Cancer Mother Family Status - Relation Status Age at Mother Level of Service:04783 [place] OFFICE/OUTPATIENT ESTABLISHED MOD MDM 30 MIN Normal [facility] Orders Onlyon 08-19-2023 Orders Only [id number] Jordin Landry meghna Crawford Jr. 1940 M Date Provider Department Center 08/19/2023 DREAD [facility] [place] Family History Problem Relation Age of Onset Cancer Mother Family Status - Relation Status Age at Mother Normal [facility] CBC AUTO DIFFon 08-26-2022 BASO # 0.1 103/ul Normal 0.0-0.1 [facility] Comment on above: Performed By: #### CBC #### [facility] [address] [address] [address] Artem Rojas Basophils/100 WBC (Bld) 1.0 % Normal 0.2-2.0 [facility] Comment on above: Performed By: #### CBC #### [facility] [address] [address] [address] Artem Rojas EO # 0.2 103/ul Normal 0.0-0.7 [facility] Comment on above: Performed By: #### CBC #### [facility] [address] [address] [address] Artem Rojas Eosinophils/100 WBC (Bld) 2.0 % Normal 0.9-7.0 [facility] Comment on above: Performed By: #### CBC #### [facility] [address] [address] [address] Artem Rojas Erythrocyte distribution width (RBC) [Ratio] 13.1 % Normal 11.0-15.0 [facility] Comment on above: Performed By: #### CBC #### [facility] [address] [place] [address] Dr. Artem Rojas Hematocrit (Bld) [Volume fraction] 43.8 % Normal 42.0-54.0 [facility] Comment on above: Performed By: #### CBC #### [facility] [address] [place] [address] Dr. Artem Rojas Hemoglobin (Bld) [Mass/Vol] 14.5 g/dL Normal 14.0-18.0 [facility] Comment on above: Performed By: #### CBC #### [facility] [address] [place] [address] Dr. Artem Rojas IG # 0.07 10e3/ul Critically high 0.00-0.03 [facility] Comment on above: Performed By: #### CBC #### [facility] [address] [place] [address] Dr. Artem Rojas IG % 0.8 % Critically high 0.0-0.5 [facility] Comment on above: Performed By: #### CBC #### [facility] [address] [place] [address] Dr. Artem Rojas LYMPH # 1.8 103/ul Normal 1.2-3.8 [facility] Comment on above: Performed By: #### CBC #### [facility] [address] [place] [address] Dr. Artem Rojas Lymphocytes/100 WBC (Bld) 20.0 % Critically low 20.5-60.0 [facility] Comment on above: Performed By: #### CBC #### [facility] [address] [place] [address] Dr. Artem Rojas MANUAL DIFF REQ NO Normal [facility] Comment on above: Performed By: #### CBC #### [facility] [address] [place] [address] Dr. Artem Rojas MCH (RBC) [Entitic mass] 30.0 pg Normal 25.9-34.0 [facility] Comment on above: Performed By: #### CBC #### [facility] [address] [place] [address] Dr. Artem Rojas MCHC (RBC) [Mass/Vol] 33.1 g/dL Normal 29.9-35.2 [facility] Comment on above: Performed By: #### CBC #### [facility] [address] [place] [address] Dr. Artem Rojas MCV (RBC) [Entitic vol] 90.7 fL Normal 80.0-94.0 [facility] Comment on above: Performed By: #### CBC #### [facility] [address] [place] [address] Dr. Artem Rojas MONO # 0.8 103/ul Normal 0.3-0.8 [facility] Comment on above: Performed By: #### CBC #### [facility] [address] [place] [address] Dr. Artem Rojas Monocytes/100 WBC (Bld) 8.7 % Normal 1.7-12.0 [facility] Comment on above: Performed By: #### CBC #### [facility] [address] [place] [address] Dr. Artem Rojas NEUT # 6.1 103/ul Normal 1.4-6.5 [facility] Comment on above: Performed By: #### CBC #### [facility] [address] [place] [address] Dr. Artem Rojas Neutrophils/100 WBC (Bld) 67.5 % Normal 43.0-75.0 [facility] Comment on above: Performed By: #### CBC #### [facility] [address] [place] [address] Dr. Artem Rojas Platelet mean volume (Bld) [Entitic vol] 9.7 fL Normal 9.5-13.5 [facility] Comment on above: Performed By: #### CBC #### [facility] [address] [place] [address] Dr. Artem Rojas PLT 333 103/ul Normal 150-450 [facility] Comment on above: Performed By: #### CBC #### [facility] [address] [place] [address] Dr. Artem Rojas RBC 4.83 106/ul Normal 4.70-6.10 [facility] Comment on above: Performed By: #### CBC #### [facility] [address] [place] [address] Dr. Artem Rojas WBC 9.0 103/ul Normal 4.0-11.0 [facility] Comment on above: Performed By: #### CBC #### [facility] [address] [place] [address] Dr. Artem Rojas PROF CHEM 8 (BAS METB)on Anion gap [Moles/Vol] 9.4 mmol/L Normal [facility] Comment on above: Performed By: #### PTT, PT #### [facility] [address] [address] [address] Artem Rojas Calcium [Mass/Vol] 9.4 mg/dL Normal 8.5-10.1 [facility] Comment on above: Performed By: #### PTT, PT #### [facility] [address] [address] [address] Artem Rojas Chloride [Moles/Vol] 105 mmol/L Normal 98-107 [facility] Comment on above: Performed By: #### PTT, PT #### [facility] [address] [address] [address] Artem Rojas CO2 [Moles/Vol] 29.3 mmol/L Normal 21.0-32.0 [facility] Comment on above: Performed By: #### PTT, PT #### [facility] [address] [place] [address] Dr. Artem Rojas Creatinine [Mass/Vol] 1.06 mg/dL Normal 0.70-1.30 [facility] Comment on above: Performed By: #### PTT, PT #### [facility] [address] [place] [address] Dr. Artem Rojas EGFR-AF ETHIOPIAN >60 Normal >=60 [facility] Comment on above: Performed By: #### PTT, PT #### [facility] [address] [place] [address] Dr. Artem Rojas EGFR-NON AF ETHIOPIAN >60 Normal >=60 [facility] Comment on above: Performed By: #### PTT, PT #### [facility] [address] [address] [address] Artem Rojas Glucose [Mass/Vol] 125 mg/dL Critically high 74-106 [facility] Comment on above: Performed By: #### PTT, PT #### [facility] [address] [address] [address] Artem Rojas Potassium [Moles/Vol] 4.3 mmol/L Normal 3.5-5.1 [facility] Comment on above: Performed By: #### PTT, PT #### [facility] [address] [address] [address] Artem Rojas Sodium [Moles/Vol] 139 mmol/L Normal 136-145 [facility] Comment on above: Performed By: #### PTT, PT #### [facility] [address] [address] [address] Artem Rojas Urea nitrogen [Mass/Vol] 20.0 mg/dL Critically high 7.0-18.0 [facility] Comment on above: Performed By: #### PTT, PT #### [facility] [address] [address] [address] Artem Rojas Urea nitrogen/Creatin ine [Mass ratio] 18.9 mg/mg Normal [facility] Comment on above: Performed By: #### PTT, PT #### [facility] [address] [place] [address] Dr. Artem Rojas Covid-19 PCR ([facility])on SARS-CoV-2 (COVID-19) RNA MONICA+probe Ql (Unsp spec) Not detected Normal NOT DETECTED [facility] Comment on above: Result Comment: When diagnostic [...] for this test is supported by the Paste Worker of Health and Human Service's declaration that [...] Performed By: #### P TT, PT #### [facility] [address] [place] [address] Dr. Artem Rojas INFLUENZA A AND B AGon 08-20 INFLUANE SEE BELOW Normal [facility] Comment on above: Result Comment: Negative for Flu A prote in angiten. Infection due to Flu A cannot be ruled out. Flu A angiten in the sample may be below the detection limit of the test. Performed By: #### P TT, PT #### [facility] [address] [place] [address] Dr. Artem Rojas INFLUBNEGH SEE BELOW Normal [facility] Comment on above: Result Comment: Negative for Flu B prote in antigen. Infection due to Flu B cannot be ruled out. Flu B antigen in the sample may be below the detection limit of the test. Performed By: #### P TT, PT #### [facility] [address] [place] [address] Dr. Artem Rojas INFLUENZA A AG Negative Normal NEGATIVE SEE COMMENT [facility] Comment on above: Performed By: #### PTT, PT #### [facility] [address] [place] [address] Dr. Artem Rojas INFLUENZA B AG Negative Normal NEGATIVE SEE COMMENT [facility] Comment on above: Performed By: #### PTT, PT #### [facility] [address] [place] [address] Dr. Artem Rojas INSULINon 07-31-2022 Insulin 16.3 uIU/mL Normal 2.6-24.9 [facility] Comment on above: Performed By: #### PTT, PT #### [facility] [address] [place] [address] Dr. Artem Rojas BNPon 07-30-2022 Natriuretic peptide B (Bld) [Mass/Vol] 1826.0 pg/mL Critically high <=1,800.0 [facility] Comment on above: Performed By: #### CMP, BNP, URIC, TSH, T7, LIPID #### [facility] [address] [place] [address] Dr. Artem Rojas CBC AUTO DIFFon 07-30-2022 BASO # 0.1 103/ul Normal 0.0-0.1 [facility] Comment on above: Performed By: #### PTT, PT #### [facility] [address] [address] [address] Artem Rojas Basophils/100 WBC (Bld) 1.0 % Normal 0.2-2.0 [facility] Comment on above: Performed By: #### PTT, PT #### [facility] [address] [place] [address] Dr. Atrem Rojas EO # 0.2 103/ul Normal 0.0-0.7 [facility] Comment on above: Performed By: #### PTT, PT #### [facility] [address] [place] [address] Dr. Artem Rojas Eosinophils/100 WBC (Bld) 2.4 % Normal 0.9-7.0 [facility] Comment on above: Performed By: #### PTT, PT #### [facility] [address] [place] [address] Dr. Artem Rojas Erythrocyte distribution width (RBC) [Ratio] 13.8 % Normal 11.0-15.0 [facility] Comment on above: Performed By: #### PTT, PT #### [facility] [address] [place] [address] Dr. Artem Rojas Hematocrit (Bld) [Volume fraction] 44.1 % Normal 42.0-54.0 [facility] Comment on above: Performed By: #### PTT, PT #### [facility] [address] [place] [address] Dr. Artem Rojas Hemoglobin (Bld) [Mass/Vol] 14.5 g/dL Normal 14.0-18.0 [facility] Comment on above: Performed By: #### PTT, PT #### [facility] [address] [place] [address] Dr. Artem Rojas IG # 0.02 10e3/ul Normal 0.00-0.03 [facility] Comment on above: Performed By: #### PTT, PT #### [facility] [address] [place] [address] Dr. Artem Rojas IG % 0.2 % Normal 0.0-0.5 [facility] Comment on above: Performed By: #### PTT, PT #### [facility] [address] [address] [address] Artem Rojas LYMPH # 2.1 103/ul Normal 1.2-3.8 [facility] Comment on above: Performed By: #### PTT, PT #### [facility] [address] [address] [address] Artem Rojas Lymphocytes/100 WBC (Bld) 24.3 % Normal 20.5-60.0 [facility] Comment on above: Performed By: #### PTT, PT #### [facility] [address] [place] [address] Dr. Artem Rojas MANUAL DIFF REQ NO Normal [facility] Comment on above: Performed By: #### PTT, PT #### [facility] [address] [place] [address] Dr. Artem Rojas MCH (RBC) [Entitic mass] 30.3 pg Normal 25.9-34.0 [facility] Comment on above: Performed By: #### PTT, PT #### [facility] [address] [place] [address] Dr. Artem Rojas MCHC (RBC) [Mass/Vol] 32.9 g/dL Normal 29.9-35.2 [facility] Comment on above: Performed By: #### PTT, PT #### [facility] [address] [place] [address] Dr. Artem Rojas MCV (RBC) [Entitic vol] 92.1 fL Normal 80.0-94.0 [facility] Comment on above: Performed By: #### PTT, PT #### [facility] [address] [place] [address] Dr. Artem Rojas MONO # 0.8 103/ul Normal 0.3-0.8 [facility] Comment on above: Performed By: #### PTT, PT #### [facility] [address] [place] [address] Dr. Artem Rojas Monocytes/100 WBC (Bld) 9.0 % Normal 1.7-12.0 [facility] Comment on above: Performed By: #### PTT, PT #### [facility] [address] [address] [address] Artem Rojas NEUT # 5.6 103/ul Normal 1.4-6.5 [facility] Comment on above: Performed By: #### PTT, PT #### [facility] [address] [address] [address] Artem Rojas Neutrophils/100 WBC (Bld) 63.1 % Normal 43.0-75.0 [facility] Comment on above: Performed By: #### PTT, PT #### [facility] [address] [place] [address] Dr. Artem Rojas Platelet mean volume (Bld) [Entitic vol] 10.0 fL Normal 9.5-13.5 [facility] Comment on above: Performed By: #### PTT, PT #### [facility] [address] [address] [address] Artem Rojas PLT 193 103/ul Normal 150-450 [facility] Comment on above: Performed By: #### PTT, PT #### [facility] [address] [place] [address] Dr. Artem Rojas RBC 4.79 106/ul Normal 4.70-6.10 [facility] Comment on above: Performed By: #### PTT, PT #### [facility] [address] [place] [address] Dr. Artem Rojas WBC 8.8 103/ul Normal 4.0-11.0 [facility] Comment on above: Performed By: #### PTT, PT #### [facility] [address] [place] [address] Dr. Artem Rojas FREE THYROXINE INDEX T7on FTI 2.52 Normal 1.30-4.50 [facility] Comment on above: Performed By: #### CMP, BNP, URIC, TSH, T7, LIPID #### [facility] [address] [place] [address] Dr. Artem Rojas T3U 35.0 % Normal 33.0-40.0 [facility] Comment on above: Performed By: #### CMP, BNP, URIC, TSH, T7, LIPID #### [facility] [address] [address] [address] Artem Rojas T4 [Mass/Vol] 7.20 ug/dL Normal 4.50-12.10 [facility] Comment on above: Performed By: #### CMP, BNP, URIC, TSH, T7, LIPID #### [facility] [address] [place] [address] Dr. Artem Rojas GLYCOHEMOGLOBIN A1Con 2022 ADA RECOMMENDATION SEE BELOW Normal [facility] Comment on above: Result Comment: ADA RECOMMENDED LIMIT 4. 0 - 6.0 ADA THERAPEUTIC TARGET < 7.0 ACTION SUGGESTED > 7.0 Performed By: #### A 1C #### [facility] [address] [place] [address] Dr. Artem Rojas Glucose [Mass/Vol] 128 mg/dL Normal [facility] Comment on above: Performed By: #### A1C #### [facility] [address] [place] [address] Dr. Artem Rojas HbA1c (Bld) [Mass fraction] 6.1 % Normal 4.5-6.2 [facility] Comment on above: Performed By: #### A1C #### [facility] [address] [place] [address] Dr. Artem Rojas LIPID PROFILEon 07-30-2022 CHOL-HDL RATIO NORM SEE BELOW Normal [facility] Comment on above: Result Comment: 3.3 - 4.4 LOW RISK 4.4 - 7.1 AVERAGE RISK 7.1 - 11.0 MODERATE RISK >11.0 HIGH RISK Performed By: #### C MP, BNP, URIC, TSH, T7, LIPID #### [facility] [address] [place] [address] Dr. Artem Rojas Cholesterol [Mass/Vol] 157 mg/dL Normal <=200 [facility] Comment on above: Performed By: #### CMP, BNP, URIC, TSH, T7, LIPID #### [facility] [address] [place] [address] Dr. Artem Rojas Cholesterol in HDL [Mass/Vol] 51 mg/dL Normal 40-60 [facility] Comment on above: Performed By: #### CMP, BNP, URIC, TSH, T7, LIPID #### [facility] [address] [address] [address] Artem Rojas Cholesterol in LDL [Mass/Vol] 86.6 mg/dL Normal [facility] Comment on above: Performed By: #### CMP, BNP, URIC, TSH, T7, LIPID #### [facility] [address] [address] [address] Artem Rojas Cholesterol.tota l/Cholesterol in HDL [Mass ratio] 3.1 {ratio} Normal [facility] Comment on above: Performed By: #### CMP, BNP, URIC, TSH, T7, LIPID #### [facility] [address] [address] [address] Artem Rojas HDL NORMAL > or = 60 mg/dl - LO W CARDIOVASCULAR RISK <40 mg/dl - HIGH CARDIOVASCULAR RISK Normal [facility] Comment on above: Performed By: #### CMP, BNP, URIC, TSH, T7, LIPID #### [facility] [address] [address] [address] Artem Rojas LDL CALC NORMAL SEE BELOW Normal [facility] Comment on above: Result Comment: <100 mg/dl OPTIMAL 100 - 129 mg/dl NEAR OR ABOVE OPTIMAL 130 - 159 mg/dl BORDERLINE HIGH 160 - 189 mg/dl HIGH >190 mg/dl VERY HIGH Performed By: #### C MP, BNP, URIC, TSH, T7, LIPID #### [facility] [address] [address] [address] Artem Rojas Triglyceride [Mass/Vol] 97 mg/dL Normal <=150 [facility] Comment on above: Performed By: #### CMP, BNP, URIC, TSH, T7, LIPID #### [facility] [address] [address] [address] Artem Rojas VLDL CALC 19.4 mg/dL Normal [facility] [place] Comment on above: Performed By: #### CMP, BNP, URIC, TSH, T7, LIPID #### [facility] [address] [address] [address] Artem Rojas PROF 14(COMP METB)on 023 Albumin [Mass/Vol] 3.5 g/dL Normal 3.4-5.0 [facility] [place] Comment on above: Performed By: #### CMP, BNP, URIC, TSH, T7, LIPID #### [facility] [address] [place] [address] Dr. Artem Rojas Albumin/Globulin [Mass ratio] 1.1 {ratio} Normal [facility] [place] Comment on above: Performed By: #### CMP, BNP, URIC, TSH, T7, LIPID #### [facility] [address] [place] [address] Dr. Artem Rojas ALP [Catalytic activity/Vol] 70 U/L Normal 46-116 [facility] Comment on above: Performed By: #### CMP, BNP, URIC, TSH, T7, LIPID #### [facility] [address] [place] [address] Dr. Artem Rojas ALT [Catalytic activity/Vol] 19 U/L Normal 16-63 [facility] [place] Comment on above: Performed By: #### CMP, BNP, URIC, TSH, T7, LIPID #### [facility] [address] [place] [address] Dr. Artem Rojas Anion gap [Moles/Vol] 11.7 mmol/L Normal [facility] Comment on above: Performed By: #### CMP, BNP, URIC, TSH, T7, LIPID #### [facility] [address] [place] [address] Dr. Artem Rojas AST [Catalytic activity/Vol] 18 U/L Normal 15-37 [facility] Comment on above: Performed By: #### CMP, BNP, URIC, TSH, T7, LIPID #### [facility] [address] [place] [address] Dr. Artem Rojas Bilirubin [Mass/Vol] 0.5 mg/dL Normal 0.2-1.0 [facility] Comment on above: Performed By: #### CMP, BNP, URIC, TSH, T7, LIPID #### [facility] [address] [place] [address] Dr. Artem Rojas Calcium [Mass/Vol] 9.3 mg/dL Normal 8.5-10.1 [facility] Comment on above: Performed By: #### CMP, BNP, URIC, TSH, T7, LIPID #### [facility] [address] [address] [address] Artem Rojas Chloride [Moles/Vol] 105 mmol/L Normal 98-107 [facility] Comment on above: Performed By: #### CMP, BNP, URIC, TSH, T7, LIPID #### [facility] [address] [place] [address] Dr. Artem Rojas CO2 [Moles/Vol] 29.7 mmol/L Normal 21.0-32.0 [facility] [place] Comment on above: Performed By: #### CMP, BNP, URIC, TSH, T7, LIPID #### [facility] [address] [place] [address] Dr. Artem Rojas Creatinine [Mass/Vol] 0.87 mg/dL Normal 0.70-1.30 [facility] [place] Comment on above: Performed By: #### CMP, BNP, URIC, TSH, T7, LIPID #### [facility] [address] [place] [address] Dr. Artem Rojas EGFR-AF ETHIOPIAN >60 Normal >=60 [facility] [place] Comment on above: Performed By: #### CMP, BNP, URIC, TSH, T7, LIPID #### [facility] [address] [place] [address] Dr. Artem Rojas EGFR-NON AF ETHIOPIAN >60 Normal >=60 [facility] [place] Comment on above: Performed By: #### CMP, BNP, URIC, TSH, T7, LIPID #### [facility] [address] [place] [address] Dr. Artem Rojas Globulin (S) [Mass/Vol] 3.3 g/dL Normal [facility] Comment on above: Performed By: #### CMP, BNP, URIC, TSH, T7, LIPID #### [facility] [address] [place] [address] Dr. Artem Rojas Glucose [Mass/Vol] 118 mg/dL Critically high 74-106 [facility] [place] Comment on above: Performed By: #### CMP, BNP, URIC, TSH, T7, LIPID #### [facility] [address] [place] [address] Dr. Artem Rojas Potassium [Moles/Vol] 4.4 mmol/L Normal 3.5-5.1 [facility] Comment on above: Performed By: #### CMP, BNP, URIC, TSH, T7, LIPID #### [facility] [address] [place] [address] Dr. Artem Rojas Protein [Mass/Vol] 6.8 g/dL Normal 6.4-8.2 [facility] Comment on above: Performed By: #### CMP, BNP, URIC, TSH, T7, LIPID #### [facility] [address] [place] [address] Dr. Artem Rojas Sodium [Moles/Vol] 142 mmol/L Normal 136-145 [facility] Comment on above: Performed By: #### CMP, BNP, URIC, TSH, T7, LIPID #### [facility] [address] [place] [address] Dr. Artem Rojas Urea nitrogen [Mass/Vol] 19.0 mg/dL Critically high 7.0-18.0 [facility] [place] Comment on above: Performed By: #### CMP, BNP, URIC, TSH, T7, LIPID #### [facility] [address] [place] [address] Dr. Artem Rojas Urea nitrogen/Creatin ine [Mass ratio] 21.8 mg/mg Normal [facility] Comment on above: Performed By: #### CMP, BNP, URIC, TSH, T7, LIPID #### [facility] [address] [place] [address] Dr. Artem Rojas TSHon 07-30-2022 TSH 1.773 uIU/mL Normal 0.358-3.740 [facility] Comment on above: Performed By: #### CMP, BNP, URIC, TSH, T7, LIPID #### [facility] [address] [place] [address] Dr. Artem Rojas URIC ACID SERUMon 07-30-2022 Urate [Mass/Vol] 5.8 mg/dL Normal 3.5-7.2 [facility] Comment on above: Performed By: #### CMP, BNP, URIC, TSH, T7, LIPID #### [facility] [address] [place] [address] Dr. Artem Rojas VITAMIN D 25 OHon 07-30-2022 VIT D 25-OH 65.5 ng/mL Normal [facility] Comment on above: Performed By: #### PTT, PT #### [facility] [address] [place] [address] Dr. Artem Rojas VIT D RANGES SEE BELOW Normal [facility] Comment on above: Result Comment: <20 ng/mL Vit D deficien t 20 - <30 ng/mL Vit D insufficient 30 - 100 ng/mL Vit D sufficient >100 ng/mL Potential Toxicity Performed By: #### P TT, PT #### [facility] [address] [place] [address] Dr. Artem Rojas CBC AUTO DIFFon 03-02-2022 BASO # 0.1 103/ul Normal 0.0-0.1 [facility] [place] Comment on above: Performed By: #### PTT, PT #### [facility] [address] [place] [address] Dr. Artem Rojas Basophils/100 WBC (Bld) 0.5 % Normal 0.2-2.0 [facility] [place] Comment on above: Performed By: #### PTT, PT #### [facility] [address] [place] [address] Dr. Artem Rojas EO # 0.0 103/ul Normal 0.0-0.7 [facility] Comment on above: Performed By: #### PTT, PT #### [facility] [address] [place] [address] Dr. Artem Rojas Eosinophils/100 WBC (Bld) 0.1 % Critically low 0.9-7.0 [facility] Comment on above: Performed By: #### PTT, PT #### [facility] [address] [place] [address] Dr. Artem Rojas Erythrocyte distribution width (RBC) [Ratio] 12.9 % Normal 11.0-15.0 [facility] [place] Comment on above: Performed By: #### PTT, PT #### [facility] [address] [place] [address] Dr. Artem Rojas Hematocrit (Bld) [Volume fraction] 39.7 % Critically low 42.0-54.0 [facility] Comment on above: Performed By: #### PTT, PT #### [facility] [address] [place] [address] Dr. Artem Rojas Hemoglobin (Bld) [Mass/Vol] 13.1 g/dL Critically low 14.0-18.0 [facility] [place] Comment on above: Performed By: #### PTT, PT #### [facility] [address] [place] [address] Dr. Artem Rojas IG # 0.05 10e3/ul Critically high 0.00-0.03 [facility] [place] Comment on above: Performed By: #### PTT, PT #### [facility] [address] [place] [address] Dr. Artem Rojas IG % 0.4 % Normal 0.0-0.5 [facility] Comment on above: Performed By: #### PTT, PT #### [facility] [address] [place] [address] Dr. Artem Rojas LYMPH # 0.8 103/ul Critically low 1.2-3.8 [facility] [place] Comment on above: Performed By: #### PTT, PT #### [facility] [address] [place] [address] Dr. Artem Rojas Lymphocytes/100 WBC (Bld) 5.7 % Critically low 20.5-60.0 [facility] [place] Comment on above: Performed By: #### PTT, PT #### [facility] [address] [place] [address] Dr. Artem Rojas MANUAL DIFF REQ NO Normal [facility] Comment on above: Performed By: #### PTT, PT #### [facility] [address] [place] [address] Dr. Artem Rojas MCH (RBC) [Entitic mass] 31.5 pg Normal 25.9-34.0 [facility] [place] Comment on above: Performed By: #### PTT, PT #### [facility] [address] [place] [address] Dr. Artem Rojas MCHC (RBC) [Mass/Vol] 33.0 g/dL Normal 29.9-35.2 [facility] Comment on above: Performed By: #### PTT, PT #### [facility] [address] [place] [address] Dr. Artem Rojas MCV (RBC) [Entitic vol] 95.4 fL Critically high 80.0-94.0 [facility] Comment on above: Performed By: #### PTT, PT #### [facility] [address] [place] [address] Dr. Artem Rojas MONO # 1.0 103/ul Critically high 0.3-0.8 [facility] Comment on above: Performed By: #### PTT, PT #### [facility] [address] [place] [address] Dr. Artem Rojas Monocytes/100 WBC (Bld) 7.4 % Normal 1.7-12.0 [facility] [place] Comment on above: Performed By: #### PTT, PT #### [facility] [address] [place] [address] Dr. Artem Rojas NEUT # 11.4 103/ul Critically high 1.4-6.5 [facility] [place] Comment on above: Performed By: #### PTT, PT #### [facility] [address] [place] [address] Dr. Artem Rojas Neutrophils/100 WBC (Bld) 85.9 % Critically high 43.0-75.0 [facility] Comment on above: Performed By: #### PTT, PT #### [facility] [address] [place] [address] Dr. Artem Rojas Platelet mean volume (Bld) [Entitic vol] 10.8 fL Normal 9.5-13.5 [facility] Comment on above: Performed By: #### PTT, PT #### [facility] [address] [place] [address] Dr. Artem Rojas PLT 164 103/ul Normal 150-450 [facility] Comment on above: Performed By: #### PTT, PT #### [facility] [address] [address] [address] Artem Rojas RBC 4.16 106/ul Critically low 4.70-6.10 [facility] Comment on above: Performed By: #### PTT, PT #### [facility] [address] [address] [address] Artem Rojas WBC 13.2 103/ul Critically high 4.0-11.0 [facility] [place] Comment on above: Performed By: #### PTT, PT #### [facility] [id number] Artem Rojas CT CSPINE WO CONon [...] Critical results were called by Dr. Gavin Rasmussen MD to Dr. Fatima At 03/02/2022 5:51 PM EDT. Electronically authenticated by: WILLIAM RASMUSSEN Date: 2022-03-02 17:51 Normal [facility] CT HEAD WO CONon 03-02-2022 CT HEAD [...] NISSA VIGIL Date: 2022-03-02 17:40 Normal [facility]13 SARS-CoV-2 (COVID-19) RNA MONICA+probe Ql (Unsp spec) Not detected Normal NOT DETECTED [facility] Comment on above: Result Comment: When diagnostic [...] for this test is supported by the P[employer] Worker of Health and Human Service's declaration that [...] Performed By: #### P TT, PT #### [facility] [address] [place] [address] Dr. Artem Rojas GASTROCCULTon 03-02-2022 GASTROCCULT Positive Abnormal NEGATIVE [facility] Comment on above: Performed By: #### PTT, PT #### [facility] [address] [place] [address] Dr. Artem Rojas PH GASTRIC 2 Normal [facility] Comment on above: Performed By: #### PTT, PT #### [facility] [address] [place] [address] Dr. Artem Rojas PROF 14(COMP METB)on 022 Albumin [Mass/Vol] 3.6 g/dL Normal 3.4-5.0 [facility] [place] Comment on above: Performed By: #### PTT, PT #### [facility] [address] [place] [address] Dr. Artem Rojas Albumin/Globulin [Mass ratio] 1.3 {ratio} Normal [facility] Comment on above: Performed By: #### PTT, PT #### [facility] [address] [place] [address] Dr. Artem Rojas ALP [Catalytic activity/Vol] 65 U/L Normal 46-116 [facility] Comment on above: Performed By: #### PTT, PT #### [facility] [address] [place] [address] Dr. Artem Rojas ALT [Catalytic activity/Vol] 12 U/L Critically low 16-63 [facility] Comment on above: Performed By: #### PTT, PT #### [facility] [address] [place] [address] Dr. Artem Rojas Anion gap [Moles/Vol] 12.8 mmol/L Normal [facility] [place] Comment on above: Performed By: #### PTT, PT #### [facility] [address] [address] [address] Artem Rojas AST [Catalytic activity/Vol] 15 U/L Normal 15-37 [facility] Comment on above: Performed By: #### PTT, PT #### [facility] [address] [place] [address] Dr. Artem Rojas Bilirubin [Mass/Vol] 1.1 mg/dL Critically high 0.2-1.0 [facility] Comment on above: Performed By: #### PTT, PT #### [facility] [address] [place] [address] Dr. Artem Rojas Calcium [Mass/Vol] 9.0 mg/dL Normal 8.5-10.1 [facility] Comment on above: Performed By: #### PTT, PT #### [facility] [address] [place] [address] Dr. Artem Rojas Chloride [Moles/Vol] 104 mmol/L Normal 98-107 [facility] Comment on above: Performed By: #### PTT, PT #### [facility] [address] [place] [address] Dr. Artem Rojas CO2 [Moles/Vol] 25.8 mmol/L Normal 21.0-32.0 [facility] Comment on above: Performed By: #### PTT, PT #### [facility] [address] [place] [address] Dr. Artem Rojas Creatinine [Mass/Vol] 1.06 mg/dL Normal 0.70-1.30 [facility] Comment on above: Performed By: #### PTT, PT #### [facility] [address] [place] [address] Dr. Artem Rojas EGFR-AF ETHIOPIAN >60 Normal >=60 [facility] Comment on above: Performed By: #### PTT, PT #### [facility] [address] [place] [address] Dr. Artem Rojas EGFR-NON AF ETHIOPIAN >60 Normal >=60 [facility] Comment on above: Performed By: #### PTT, PT #### [facility] [address] [place] [address] Dr. Artem Rojas Globulin (S) [Mass/Vol] 2.8 g/dL Normal [facility] Comment on above: Performed By: #### PTT, PT #### [facility] [address] [place] [address] Dr. Artem Rojas Glucose [Mass/Vol] 104 mg/dL Normal 74-106 [facility] [place] Comment on above: Performed By: #### PTT, PT #### [facility] [address] [place] [address] Dr. Artem Rojas Potassium [Moles/Vol] 4.6 mmol/L Normal 3.5-5.1 [facility] Comment on above: Performed By: #### PTT, PT #### [facility] [address] [place] [address] Dr. Artem Rojas Protein [Mass/Vol] 6.4 g/dL Normal 6.4-8.2 [facility] Comment on above: Performed By: #### PTT, PT #### [facility] [address] [place] [address] Dr. Artem Rojas Sodium [Moles/Vol] 138 mmol/L Normal 136-145 [facility] Comment on above: Performed By: #### PTT, PT #### [facility] [address] [place] [address] Dr. Artem Rojas Urea nitrogen [Mass/Vol] 13.0 mg/dL Normal 7.0-18.0 [facility] [place] Comment on above: Performed By: #### PTT, PT #### [facility] [address] [place] [address] Dr. Artem Rojas Urea nitrogen/Creatin ine [Mass ratio] 12.3 mg/mg Normal [facility] Comment on above: Performed By: #### PTT, PT #### [facility] [address] [place] [address] Dr. Artem Rojas PROTIMEon 03-02-2022 INR Coag (PPP) [Relative time] 1.23 {INR} Normal [facility] [place] Comment on above: Performed By: #### PTT, PT #### [facility] [address] [place] [address] Dr. Artem Rojas INR GUIDELINES SEE BELOW Normal [facility] Comment on above: Result Comment: DESIRED INR: 2.0 - 3.0 C ONDITIONS NOT LISTED BELOW 2.5 - 3.5 FOR PROSTHETIC HEART VALVE REPLACEMENT 2.5 - 3.5 RECURRENT THROMBOSIS Performed By: #### P TT, PT #### [facility] [address], [place] [address] Dr. Artem Rojas PT Coag (PPP) [Time] 13.1 s Critically high 9.0-11.6 [facility] [place] Comment on above: Performed By: #### PTT, PT #### [facility] [address], [place] [address] Dr. Artem Rojas PTTon 03-02-2022 aPTT Coag (Bld) [Time] 28.5 s Normal 22.3-36.2 [facility] Comment on above: Performed By: #### PTT, PT #### [facility] [address] [place] [address] Dr. Artem Rojas XR KNEE RT 1_2 [...] MATTHEW CHADWICK Date: 2022-03-02 20:49 Normal [facility] OVA AND PARASITE EXAMINATION on 01-18-2022 Ova + Parasite Exam Final report Normal [facility] Comment on above: Result Comment: These results were obtai ricardo using wet preparation(s) and trichrome stained smear. This test does not include testing for Cryptosporidium parvum, Cyclospora, or Microsporidia. Performed By: #### P TT, PT #### [facility] [address] [place] [address] Dr. Artem Rojas Result 1 Comment Normal [facility] Comment on above: Result Comment: No ova, cysts, or parasi alise seen. . One negative specimen does not rule out the possibility of a parasitic infection. Performed By: #### P TT, PT #### [facility] [address] [place] [address] Dr. Artem Rojas GI PANEL (PCR)on 01-14-2022 Adenovirus F 40/41 Not detected Normal NOT DETECTED [facility] Comment on above: Performed By: #### PTT, PT #### [facility] [address] [place] [address] Dr. Artem Rojas Astrovirus Not detected Normal NOT DETECTED [facility] Comment on above: Performed By: #### PTT, PT #### [facility] [address] [place] [address] Dr. Artem Rojas C. Diff toxin A/B Not detected Normal NOT DETECTED [facility] Comment on above: Performed By: #### PTT, PT #### [facility] [address] [place] [address] Dr. Artem Rojas Campylobacter Not detected Normal NOT DETECTED [facility] Comment on above: Performed By: #### PTT, PT #### [facility] [address] [place] [address] Dr. Artem Rojas Cryptosporidium Not detected Normal NOT DETECTED [facility] Comment on above: Performed By: #### PTT, PT #### [facility] [address] [place] [address] Dr. Artem Rojas Cyclos. Cayetanensis Not detected Normal NOT DETECTED [facility] Comment on above: Performed By: #### PTT, PT #### [facility] [address] [place] [address] Dr. Artem Rojas E. Coli O157 Not Applicable Normal Not Applicable [facility] Comment on above: Performed By: #### PTT, PT #### [facility] [address] [place] [address] Dr. Artem Rojas E. histolytica Not detected Normal NOT DETECTED [facility] Comment on above: Performed By: #### PTT, PT #### [facility] [address] [place] [address] Dr. Artem Rojas EAEC Not detected Normal NOT DETECTED [facility] Comment on above: Performed By: #### PTT, PT #### [facility] [address] [place] [address] Dr. Artem Rojas EIEC Not detected Normal NOT DETECTED [facility] Comment on above: Performed By: #### PTT, PT #### [facility] [address] [place] [address] Dr. Artem Rojas EPEC Not detected Normal NOT DETECTED [facility] Comment on above: Performed By: #### PTT, PT #### [facility] [address] [place] [address] Dr. Artem Rojas ETEC Not detected Normal NOT DETECTED [facility] Comment on above: Performed By: #### PTT, PT #### [facility] [address] [place] [address] Dr. Artem Whitt Lamblia Not detected Normal NOT DETECTED [facility] Comment on above: Performed By: #### PTT, PT #### [facility] [address] [place] [address] Dr. Artem TSE CONTROLS PASSED Normal [facility] Comment on above: Performed By: #### PTT, PT #### [facility] [address] [place] [address] Dr. Artem DAVIS [facility] HEADER GI PANEL BACTERIA Normal T [facility] Comment on above: Performed By: #### PTT, PT #### [facility] [address] [place] [address] Dr. Artem ARELLANO ECOLI GI PANEL DIARRHEAGEN IC E.COLI / SHIGELLA Normal [facility] [place] Comment on above: Performed By: #### PTT, PT #### [facility] [address] [place] [address] Dr. Artem ARELLANO INFO SEE BELOW Normal [facility] [place] Comment on above: Result Comment: EAEC- Enteroaggregative E. Coli EPEC- Enteropathogenic E. Coli ETEC- Enterotoxigenic E. Coli lt/st STEC- Shigella-like toxin-producing E. Coli stx1/stx2 EIEC- Shigella/Enteroinvasive E. Coli Performed By: #### P TT, PT #### [facility] [address] [place] [address] Dr. Artem ARELLANO PARASITES GI PANEL PARASITES Normal [facility] Comment on above: Performed By: #### PTT, PT #### [facility] [address] [place] [address] Dr. Artem ARELLANO VIRUS GI PANEL VIRUSES Normal [facility] Comment on above: Performed By: #### PTT, PT #### [facility] [address] [place] [address] Dr. Artem Rojas Norovirus GI/GII Not detected Normal NOT DETECTED [facility] Comment on above: Performed By: #### PTT, PT #### [facility] [address] [place] [address] Dr. Artem Rojas P. Shigelloides Not detected Normal NOT DETECTED [facility] Comment on above: Performed By: #### PTT, PT #### [facility] [address] [place] [address] Dr. Artem Rojas Rotavirus A Not detected Normal NOT DETECTED [facility] Comment on above: Performed By: #### PTT, PT #### [facility] [address] [place] [address] Dr. Artem Rojas Salmonella Not detected Normal NOT DETECTED [facility] Comment on above: Performed By: #### PTT, PT #### [facility] [address] [place] [address] Dr. Artem Rojas Sapovirus Not detected Normal NOT DETECTED [facility] Comment on above: Performed By: #### PTT, PT #### [facility] [address] [place] [address] Dr. Artem Rojas STEC Not detected Normal NOT DETECTED [facility] Comment on above: Performed By: #### PTT, PT #### [facility] [address] [place] [address] Dr. Artem Rojas Vibrio Not detected Normal NOT DETECTED [facility] Comment on above: Performed By: #### PTT, PT #### [facility] [address] [address] [address] Artem Rojas Vibrio Cholera Not detected Normal NOT DETECTED [facility] Comment on above: Performed By: #### PTT, PT #### [facility] [address] [place], [place] [address] Dr. Artem Rojas Y. Enterocolitica Not detected Normal NOT DETECTED [facility] Comment on above: Performed By: #### PTT, PT #### [facility] [address] [place], [place] [address] Dr. Artem Rojas Consultation Noteon 06-03-20 Consultation Note [id number]#1.00CD:127 Normal [facility] RAD - MISCon 06-03-2021 RAD - MISC [id number]#1.00CD:127 Normal [facility] Glucose Poct Glucometerson 0 01-10-2021 Glucose [Mass/Vol] 108 mg/dL Normal [facility] Comment on above: Result Comment: Random Glucose Reference Range is dependent on time and content of last meal. Glucose of more than 200 mg/dL in a nonstressed, ambulatory subject supports the diagnosis of Diabetes Mellitus. PERFORMED BY: [facility] [address] [place] [address] PATHOLOGIST DISABILITIES SERVICES OFFICER SARY APARICIO M.D. Performed By: #### G SAMMIE #### Point of Care testing , [facility] 01-10-2021 L Specimen: [id number] Received: 01/10/21 Status: WILFREDO Iglesias Num: [id number] Spec Type: Surgical Subm Dr: Shane Snell MD Tissues: A Colon - Polyp (CECUM) B Colon - Polyp (SIGMOID) Procedures: HE Stain/4, Gross/Micro L4/2 Patient Age/Sex Location Account Attending Physician Desean Landry JR 80/M [id number] Shane Snell MD SPEC NUM: [id number] RECD: 01/10/21 STATUS: WILFREDO MIKE NUM: [id number] MICAH: 01/10/21- [facility] DR: Shane Snell MD ENTERED: 01/10/21 [facility] DR: SPEC TYPE: Surgical DEPT: S ORDERED: HE Stain/4, [...] Entirely submitted in one cassette labeled A1. (/YJ) B. Received in formalin labeled with the [...] findings support the above pathologic diagnosis. Specimen: [id number] Received: 01/10/21 Status: WILFREDO Mike Num: [id number] Spec Type: Surgical Subm Dr: Shane Snell MD Tissues: A Colon - Polyp (CECUM) B Colon - Polyp (SIGMOID) Procedures: HE Stain/4, Gross/Micro L4/2 Patient: Desean Landry JR [id number] (Continued) Specimen: [id number] Received: 01/10/21 (Continued) Signed (signature on file) Randi Ji MD 01/11/21 1809 Specimen: [id number] Received: 01/10/21 Status: WILFREDO Iglesias Num: [id number] Spec Type: Surgical Subm Dr: Shane Snell MD Tissues: A Colon - Polyp (CECUM) B Colon - Polyp (SIGMOID) Procedures: HE Stain/4, Gross/Micro L4/2 Patient: Desean Landry JR [id number] (Continued) Specimen: [id number] Received: 01/10/21 (Continued) CPT Codes 16470?2 Specimen: [id number] Received: 01/10/21 Status: WILFREDO Iglesias Num: [id number] Spec Type: Surgical Subm Dr: Shane Snell MD Tissues: A Colon - Polyp (CECUM) B Colon - Polyp (SIGMOID) Procedures: HE Stain/4, Gross/Micro L4/2 Patient: Desean Landry JR [id number] (Continued) Signed (signature on file) Randi Ji MD 01/11/21 1809 [facility] CNCOon 04-13-2018 [facility] Letter TextOctober 3 2018[address] [place], [place] [address]EQJF: Rocky Landry NO.: [id number] OF SERVICE: 04/06/2018Dept. of Pulmonary and Critical Care MedicineDear Mr. Landry,Attached please find a copy of your CAT scan chest report from March.Please contact me if I can contribute further in your health care management.Best regards.Yours sincerely,Cesar Beltran M.D., Ervin.HC:lmEnclosure Normal [facility] CT CHEST WO IVCONon 04-06-20 CT CHEST WO IVCON * * *Final Report* * *DATE OF EXAM: Apr 06 2018 12:50PM [facility] 0541 - CT CHEST WO [...] any questions regarding this interpretation, please call [phone].If you are unable to reach us at the number above,please feel free to contact [facility] eRadiology at [phone] ACN Normal [facility] PROGRESSon 04-06-2018 Protein mass conc HNO ID: [id number]: Venita Lr: (none)Author Type: (none)Type: Progress NotesFiled: 04/06/2018 12:57 PMNote Text: Radiology Service Progress NotePATIENT NAME: Desean LandryMRN: [id number] OF SERVICE: April 06, 2018TIME: 12:28 PMPATIENT IDENTITY VERIFICATION COMPLETED USING TWO (2) METHODS: Patientconfirmed name verbally and ID band matches..PATIENT GENDER DATA: MalePATIENT RELEVANT IMPLANT DATA REVIEWED: Not ApplicableRADIOLOGY DEPARTMENT: CT; Exam(s) Completed: ChestPERIPHERAL IV DATA: Not applicableSIGNED BY: Venita Lee 2017 12:28 PM Normal [facility] CNOVon 09-10-2017 CNOV Office Visit (PULMMN) SA SHAILA LANDRY ([id number]) 1940 MDate Time Provider Department09/10/17 9:55 AM CESAR BELTRAN During your visit today, we recorded the following information about you: Temperature Pulse Respiration Blood pressure 97.7 degrees 75/minute 18/minute 125/68 Weight Height 90.3 kg 1.753 Ritika Beltran MD 09/10/2017 12:26 PM SignedPULMONARY CLINICPATIENT NAME: Desean LandryMRN: [id number] CARE PHYSICIAN: Diogenes Garcia, [facility] MIAMIommunication will be sent via [place] mail or [...] No ronchi. No ralesCARDIAC: normal S1 and I5WICGCHZ: Abdomen soft.EXTREMETIES: No deformities. No LE edema. [...] available chest images independently.RTC in 6-12 months.Cesar Beltran, MDPulmonary and Critical Care MedicineDATE: September 10, 2017TIME: 9:30 AMReferring Provider: SELF [200]Allergies As of Date: 09/10/2017(No Known Allergies)Date Reviewed: 09/10/2017Reviewed by: Precious Jones Ma - Fully AssessedReason for Visit: Recheck [92]Primary Visit Diagnosis:Pleural effusion [J90] Other Visit Diagnoses:Lung nodules [R91.8] Atelectasis [J98.11] Pleural calcification [J94.8]Order(s):CT CHEST WO IVCON [1214634] Order #: [id number] FUTUREProblem List As Of Date: 09/10/2017(None)Disposition: Return in about 6 months (around 03/13/2018).Follow-up and Disposition History RecordedEncounter Number: [id number] Status:Closed by CESAR BELTRAN MD on 09/10/17 Normal [facility] CT CHEST WO IVCONon 09-11-19 CT CHEST WO IVCON * * *Final Report* * *DATE OF EXAM: Sep 10 2017 9:05AM [facility] CHEST WO IVCON / [...] 6 mm. Three-month imaging follow-up suggested for reevaluation.[employer] Plant Operator: AMILCAR Transcribe Date/Time: Sep 10 2017 9:58ADictated by : CHRISTY MULTANI MDThis examination was interpreted and the report reviewed and electronically signed by: CHRISTY MULTANI MD on Sep 10 2017 2:48PM [id number] Normal [facility] PROGRESSon 09-10-2017 Protein mass conc HNO ID: [id number]: Cesar Garcia: (none)Author Type: PhysicianType: Progress NotesFiled: 09/10/2017 12:26 PMNote Text:PULMONARY CLINICPATIENT NAME: Desean LandryMRN: [id number] CARE PHYSICIAN: Diogenes Garcia, [facility]AMIommunication will be sent via [place] mail or [...] wheezing. No ronchi. NoralesCARDIAC: normal S1 and I1QIPBQRE: Abdomen soft.EXTREMETIES: No deformities. No LE edema. [...] available chest images independently.RTC in 6-12 months.Cesar Beltran MDPulmonary and Critical Care MedicineDATE: September 10, 2017TIME: 9:30 AM Normal [facility] Protein mass conc HNO ID: [id number]: Srinath Purcell CTS (Ct)ervice: RadiologyAuthor Type: Clinical TechnicianType: Progress NotesFiled: 09/10/2017 9:03 AMNote Text: Radiology Service Progress NotePATIENT NAME: Desean LandryMRN: [id number] OF SERVICE: September 10, 2017TIME: 9:03 AMPATIENT IDENTITY VERIFICATION COMPLETED USING TWO (2) METHODS: Patientconfirmed name verbally and ID band matches..PATIENT GENDER DATA: MalePATIENT RELEVANT IMPLANT DATA REVIEWED: YesRADIOLOGY DEPARTMENT: CT; Exam(s) Completed: ChestPERIPHERAL IV DATA: Not applicableSIGNED BY: MANINDER LinPromedica [facility] 2017 9:03 AM Normal [facility] HISTORY PHYSICALon HISTORY PHYSICAL HNO ID: [id number] thor: Cesar BeltranService: (none)Author Type: PhysicianType: HANDPFiled: 07/23/2017 5:35 PMNote Text:PULMONARY CONSULTPATIENT NAME: Desean LandryMRN: [id number] FOR CONSULT: Pleural effusionREQUESTING PHYSICIAN: Diogenes Garcia [facility] CARE PHYSICIAN: Diogenes Garcia [facility] MIAMIommunication will be sent via [place] mail or shared electronic medicalrecordsHISTORY OF PRESENT ILLNESS: Mr. 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 Unable to make his own medical decision.He lives by himself but currently admitted at a SNF. He has a legalguardian Blanca Sofia phone # [phone].In June he was found on the floor [...] evaluation anddecided to pursue further evaluation at [facility].Since hospital discharge, he has been at [...] use YesMEDICATIONS:Metoprolol 25mfg bidFolic acidThiamineEliquis 5mg bidpravastatinALLERGIES:ALLERGIE o Known AllergiesCOMPLETE REVIEW OF SYSTEMS:GENERAL: No weight [...] regarding test results, pleural effusion and coordinatingcare.Cesar Beltran, MDPulmonary and Critical Care MedicineDATE: July 23, 2017TIME: 12:12 PM Normal [facility] PROGRESSon 07-23-2017 Protein mass conc HNO ID: [id number]: Colleen Ceballos RtService: (none)Author Type: (none)Type: Progress NotesFiled: 07/23/2017 11:16 AMNote Text: Radiology Service Progress NotePATIENT NAME: Desean LandyrMRN: [id number] OF SERVICE: July 23, 2017TIME: 11:16 AMPATIENT IDENTITY VERIFICATION COMPLETED USING TWO (2) METHODS: Patientconfirmed name verbally and Date of .PATIENT GENDER DATA: MalePATIENT RELEVANT IMPLANT DATA REVIEWED: Not ApplicableRADIOLOGY DEPARTMENT: General X-ray: Exam(s) Completed: Chest X-RayPERIPHERAL IV DATA: Not applicableSIGNED BY: Colleen Ceballos RtFebruary 2017 11:16 AM Normal [facility] XR CHEST 2V FRONTAL/LATon XR CHEST [...] ARMENTA MD on Jul 23 2017 3:24PM [id number] Normal [facility] HOSPon 07-21-2017 HOSP Patient:Desean Landry MRN: [...] Radiology Service Progress NotePATIENT NAME: Desean LandryMRN: [id number] OF SERVICE: July 23, 2017TIME: 11:16 AMPATIENT IDENTITY VERIFICATION COMPLETED USING TWO (2) METHODS: Patientconfirmed name verbally and Date of .PATIENT GENDER DATA: MalePATIENT RELEVANT IMPLANT DATA REVIEWED: Not ApplicableRADIOLOGY DEPARTMENT: General X-ray: Exam(s) Completed: Chest X-RayPERIPHERAL IV DATA: Not applicableSIGNED BY: Colleen Stephania Dequansydnee RtFebruary 2017 11:16 AMProgress Notes ([facility] H23):Latoya Mohamud, RN, RN 07/22/2017 10:35 AM Signed07/22/2017: Navigator contacted [facility] ([phone]) toobtain recent labs. Director Acute will fax labs and medication list. Craig also have a copies of this sent with him to his appointments. Normal [facility] CNPNon 07-16-2017 CNPN Telephone (PULMMN) SA SHAILA LANDRY ([id number]) 1940 MDate Time Provider Department07/16/17 CESAR BELTRAN During your visit today, we recorded the following information about you:Kristie Vallejo 07/16/2017 2:35 PM Signedcxr report to MATERIAL CONTROL SPECIALIST.Italo Mora CNP 07/17/2017 12:47 PM SignedCXR 07/13/2017StableAllergies As of Date: 07/16/2017(No Known Allergies)Date Reviewed: 07/14/2017Reviewed by: Kim Walker (Fel) - Fully AssessedReason for Visit: Received Outside Medical Records [3576]Problem List As Of Date: 07/16/2017(None) Status:Closed by KRISTIE ANDRADE on 07/16/17 Normal [facility] BASIC METABOLIC PANELon - Calcium 8.5 mg/dL Low 8.6-10.3 The [facility] Comment on above: Order Comment: No: Do not add to previou s draw Performed By: #### 4 1000, 94586, 74751, 98829, 15849 ####[facility] [place] [address], [facility] Chloride 104 mmol/L Normal 98-107 [facility] Comment on above: Order Comment: No: Do not add to previou s draw Performed By: #### 4 1000, 08762, 41722, 30926, 44245 ####[facility] [place] [address], [facility] CO2 30 mmol/L Normal 21-31 [facility] Comment on above: Order Comment: No: Do not add to previou s draw Performed By: #### 4 1000, 99833, 20129, 97255, 29131 ####[facility] [facility] Creatinine 0.94 mg/dL Normal 0.70-1.30 [facility] Comment on above: Order Comment: No: Do not add to previou s draw Performed By: #### 4 1000, 23051, 67646, 02046, 28802 ####[facility] eGFR (black) mL/min/{1.73_m2} Normal >60 [facility] Comment on above: Order Comment: No: Do not add to previou s draw Result Comment: Calc ulation may not be valid for patients over 70 years Performed By: #### 4 1000, 01003, 57631, 15476, 82797 ####[facility] eGFR (non-black) mL/min/{1.73_m2} Normal >60 Th e [facility] Comment on above: Order Comment: No: Do not add to previou s draw Result Comment: Calc ulation may not be valid for patients over 70 years Performed By: #### 4 1000, 29264, 76766, 83047, 26183 ####[facility] [place] [address], [facility] Glucose mass conc 98 mg/dL Normal 70-100 [facility] Comment on above: Order Comment: No: Do not add to previou s draw Performed By: #### 4 1000, 79129, 83187, 11449, 49605 ####[facility] Potassium molar conc 4.3 mmol/L Normal 3.5-5.1 [facility] Comment on above: Order Comment: No: Do not add to previou s draw Performed By: #### 4 1000, 97435, 27149, 75591, 23292 ####[facility] Sodium 141 mmol/L Normal 136-145 [facility] Comment on above: Order Comment: No: Do not add to previou s draw Performed By: #### 4 1000, 82222, 98214, 25108, 64081 ####[facility] Urea nitrogen 17 mg/dL Normal 7-25 [facility] Comment on above: Order Comment: No: Do not add to previou s draw Performed By: #### 4 1000, 50128, 37105, 00298, 15542 ####[facility] CBC W/DIFFon 06-20-2017 Basophils Auto #/vol (Bld) 0.5 % Normal 0.0-2.0 [facility] Comment on above: Performed By: #### 18270, 76703, 94168, 32411, 88801 ####[facility] Eosinophils/100 leukocytes 3.6 % Normal 0.0-5.0 [facility] Comment on above: Performed By: #### 14412, 82538, 06850, 20908, 11623 ####[facility] Erythrocyte distribution width Auto Ratio (RBC) 14.2 % Normal 11.5-16.9 [facility] Comment on above: Performed By: #### 52788, 64330, 67962, 50403, 11626 ####[facility] Erythrocytes (RBC) 4.19 mill/mm3 Low 4.30-5.90 [facility] Comment on above: Performed By: #### 02955, 69121, 37751, 11821, 69194 ####[facility] Hematocrit (HCT) 39.9 % Normal 39.0-55.0 [facility] Comment on above: Performed By: #### 50483, 48875, 47579, 10621, 83342 ####[facility] Hemoglobin mass conc (Bld) 13.6 g/dL Low 13.9-16.3 [facility] Comment on above: Performed By: #### 92415, 06998, 79866, 18419, 58356 ####[facility] [facility].[address] Lymphocytes/100 leukocytes 15.7 % Low 20.0-40.0 [facility] Comment on above: Performed By: #### 72768, 26086, 01545, 99142, 73263 ####[facility] MCH 32.4 pg High 24.0-32.0 [facility] Comment on above: Performed By: #### 19135, 29387, 48613, 11723, 49755 ####[facility] [place] [address], [facility] MCHC mass conc (RBC) 34.0 g/dL Normal 32.0-36.0 [facility] Comment on above: Performed By: #### 92578, 45158, 12448, 13519, 95403 ####[facility] [place] [address], [facility] MCV 95.3 fL Normal 80.0-100.0 [facility] Comment on above: Performed By: #### 16101, 95546, 84556, 13283, 42135 ####[facility] [place] [address], [facility] METHOD Normal RBC Morphology Normal [facility] Comment on above: Performed By: #### 10475, 30067, 88098, 90323, 83462 ####[facility] [place] [address], [facility] MONOS 9.9 % High 2-8 [facility] Comment on above: Performed By: #### 64236, 99695, 05014, 93258, 47474 ####[facility] [place] [address], [facility] Neutrophils/100 leukocytes 70.3 % High 50-70 [facility] Comment on above: Performed By: #### 91913, 98358, 75819, 47565, 21172 ####[facility] [place] [address], [facility] PLAT CNT 193 Thou/mm3 Normal 100-400 [facility] Comment on above: Performed By: #### 83043, 66041, 86376, 84817, 95689 ####[facility] [place] [address], [facility] WBC (Leukocytes) 8.7 Thou/mm3 Normal 4.0-10.0 [facility] Comment on above: Performed By: #### 00880, 51781, 61955, 71420, 99194 ####[facility] [place] [address], [facility] Discharge Summaryon 06-20-19 18 Discharge Summary [id number] Desean Landry Admitted: 06/13/2017 Discharged: 06/20/2017 Date of : 1940 Physician: Diogenes Henry M.D. DISCHARGE SUMMARYPRIMARY DIAGNOSIS: Rhabdomyolysis secondary to prolonged immobilization.SECONDARY DIAGNOSES:1. History of atrial fibrillation.2. Right sided Posterior Calcified pleural plaques.3. Right-sided loculated pleural effusion.CONSULTS: CT Surgery, Pulmonary.PROCEDURES: None.SUMMARY OF HOSPITAL COURSE: Mr. Landry is a 76-year-old male, who [facility] with complaints of being found [...] EMS was contacted and brought the patient [facility]. Initial workup was notable for severe rhabdomyolysis,and the patient was transferred to [facility]. He has a past medical historysignificant [...] not have a biopsy performed whilehospitalized at [facility].His CK and myoglobin continue to trend downward, and he was deemed stableat the time of discharge.He will need to follow up with Dr. Beltran at [facility] for continuedmanagement of his pleural effusions [...] ECF. Please continueto follow up with Dr. Beltran at [facility] for continued management ofthe pleural effusions that were noted on your CT chest.DISCHARGE MEDICATIONS:1. Metoprolol tartrate 25 mg p.o. b.i.d.2. Multiple vitamin, folic acid 400 mcg tablet.3. Pravastatin 40 mg p.o. daily.4. Thiamine (vitamin B1) 100 mg tablet p.o. daily.5. Apixaban 5 mg p.o. b.i.d. (holding at this time).Reviewed By:Jarad Ayon MD 06/21/2017 01:29 PElectronically Signed by:Diogenes Henry M.D. 06/22/2017 08:54 A iDogenes Henry M.D...Date Dict: 06/19/2017/05:47 P/Jarad Ayon, MDDate Trans: 06/20/2017 04:29 P/[id number]_[id number]: Diogenes Garcia M.D. [address] [place] [address] Normal [facility] MAGNESIUM BLOODon 06-20-2017 Magnesium 2.0 mg/dL Normal 1.9-2.7 [facility] Comment on above: Order Comment: No: Do not add to previou s draw Performed By: #### 4 1000, 27119, 94209, 21947, 10013 ####[facility] [place] [address], [facility] PHOSPHORUS BLOODon 8 Phosphate 3.5 mg/dL Normal 2.5-5.0 [facility] Comment on above: Order Comment: No: Do not add to previou s draw Performed By: #### 4 1000, 28160, 63198, 41308, 20946 ####[facility], [place] [address] [place] [address] BASIC METABOLIC PANELon Calcium 8.5 mg/dL Low 8.6-10.3 [facility] Comment on above: Order Comment: No: Do not add to previou s draw Performed By: #### 4 1000, 08381, 56652, 26828, 72240 ####[facility] [place] [address], [facility] Chloride 105 mmol/L Normal 98-107 [facility] Comment on above: Order Comment: No: Do not add to previou s draw Performed By: #### 4 1000, 84323, 35354, 37628, 63408 ####[facility] [place] [address], [facility] CO2 26 mmol/L Normal 21-31 [facility] Comment on above: Order Comment: No: Do not add to previou s draw Performed By: #### 4 1000, 79341, 24289, 17041, 37062 ####[facility] [place] [address], [facility] Creatinine 0.95 mg/dL Normal 0.70-1.30 [facility] Comment on above: Order Comment: No: Do not add to previou s draw Performed By: #### 4 1000, 00537, 89830, 16375, 77717 ####[facility] eGFR (black) mL/min/{1.73_m2} Normal >60 [facility] Comment on above: Order Comment: No: Do not add to previou s draw Result Comment: Calc ulation may not be valid for patients over 70 years Performed By: #### 4 1000, 60758, 31222, 99504, 53668 ####[facility] [address] eGFR (non-black) mL/min/{1.73_m2} Normal >60 Th [facility] Comment on above: Order Comment: No: Do not add to previou s draw Result Comment: Calc ulation may not be valid for patients over 70 years Performed By: #### 4 1000, 69633, 96149, 90220, 24891 ####[facility] [place] [address], [facility] Glucose mass conc 102 mg/dL High 70-100 [facility] Comment on above: Order Comment: No: Do not add to previou s draw Performed By: #### 4 1000, 72599, 54096, 16739, 64030 ####[facility] [place] [address], [facility] Potassium molar conc 3.7 mmol/L Normal 3.5-5.1 [facility] Comment on above: Order Comment: No: Do not add to previou s draw Performed By: #### 4 1000, 59348, 23943, 92426, 85769 ####[facility] [place] [address], [facility] Sodium 139 mmol/L Normal 136-145 [facility] Comment on above: Order Comment: No: Do not add to previou s draw Performed By: #### 4 1000, 74543, 60128, 87685, 63441 ####[facility] Urea nitrogen 17 mg/dL Normal 7-25 [facility] Comment on above: Order Comment: No: Do not add to previou s draw Performed By: #### 4 1000, 72617, 44734, 24249, 89072 ####[facility] CBC W/DIFFon 06-19-2017 Basophils Auto #/vol (Bld) 0.5 % Normal 0.0-2.0 [facility] Comment on above: Order Comment: No: Do not add to previou s draw Performed By: #### 4 1000, 04949, 83354, 70722, 91494 ####[facility] Eosinophils/100 leukocytes 1.0 % Normal 0.0-5.0 [facility] Comment on above: Order Comment: No: Do not add to previou s draw Performed By: #### 4 1000, 27544, 48146, 67914, 18287 ####[facility] Erythrocyte distribution width Auto Ratio (RBC) 13.7 % Normal 11.5-16.9 [facility] Comment on above: Order Comment: No: Do not add to previou s draw Performed By: #### 4 1000, 80634, 44111, 43548, 47849 ####[facility] Erythrocytes (RBC) 4.33 mill/mm3 Normal 4.30-5.90 [facility] Comment on above: Order Comment: No: Do not add to previou s draw Performed By: #### 4 1000, 51555, 54063, 81917, 12574 ####[facility] Hematocrit (HCT) 41.5 % Normal 39.0-55.0 [facility] Comment on above: Order Comment: No: Do not add to previou s draw Performed By: #### 4 1000, 70494, 55661, 09948, 42609 ####[facility] Hemoglobin mass conc (Bld) 14.1 g/dL Normal 13.9-16.3 [facility] Comment on above: Order Comment: No: Do not add to previou s draw Performed By: #### 4 1000, 02967, 84047, 68247, 06297 ####[facility] Lymphocytes/100 leukocytes 11.5 % Low 20.0-40.0 [facility] Comment on above: Order Comment: No: Do not add to previou s draw Performed By: #### 4 1000, 48912, 01468, 75189, 08765 ####[facility] MCH 32.7 pg High 24.0-32.0 [facility] Comment on above: Order Comment: No: Do not add to previou s draw Performed By: #### 4 1000, 38444, 91575, 40936, 15656 ####[facility] MCHC mass conc (RBC) 34.1 g/dL Normal 32.0-36.0 [facility] Comment on above: Order Comment: No: Do not add to previou s draw Performed By: #### 4 1000, 78067, 99555, 87102, 48296 ####[facility] MCV 95.9 fL Normal 80.0-100.0 [facility] Comment on above: Order Comment: No: Do not add to previou s draw Performed By: #### 4 1000, 68356, 19511, 93722, 73477 ####[facility] [place] [address], [facility] METHOD Normal RBC Morphology Normal [facility] Comment on above: Order Comment: No: Do not add to previou s draw Performed By: #### 4 1000, 72243, 66788, 46348, 17297 ####[facility] [place] [address], [facility] MONOS 11.9 % High 2-8 [facility] Comment on above: Order Comment: No: Do not add to previou s draw Performed By: #### 4 1000, 98066, 12716, 32300, 27514 ####[facility] [place] [address], [facility] Neutrophils/100 leukocytes 75.1 % High 50-70 [facility] Comment on above: Order Comment: No: Do not add to previou s draw Performed By: #### 4 1000, 19590, 34529, 42232, 77329 ####[facility] PLAT CNT 192 Thou/mm3 Normal 100-400 [facility] Comment on above: Order Comment: No: Do not add to previou s draw Performed By: #### 4 1000, 04149, 57762, 64731, 90382 ####[facility] WBC (Leukocytes) 10.7 Thou/mm3 High 4.0-10.0 [facility] Comment on above: Order Comment: No: Do not add to previou s draw Performed By: #### 4 1000, 11244, 21214, 33830, 23655 ####[facility] CPKon 06-19-2017 Creatine kinase (CK) 252 U/L High 30-223 [facility] Comment on above: Performed By: #### 10492, 67142, 64888, 39984, 94635 ####[facility] [place] [address], [facility] MAGNESIUM BLOODon 06-19-2017 Magnesium 2.0 mg/dL Normal 1.9-2.7 [facility] Comment on above: Order Comment: No: Do not add to previou s draw Performed By: #### 4 1000, 72369, 21184, 84374, 97255 ####[facility] [place] [address], [facility] MYOGLOBINon 06-19-2017 Myoglobin 213 ng/mL Critically high 0-90 [facility] Comment on above: Result Comment: A DOUBLING OF VALUES FRO M SERIAL BLOOD COLLECTIONS(1 - 2 HOURS APART) IS MORE INDICATIVE OF A M.I.THAN THE ABSOLUTE VALUE. Performed By: #### 4 1000, 56926, 84190, 60790, 02705 ####[facility] [place] [address], [facility] PHOSPHORUS BLOODon 8 Phosphate 2.7 mg/dL Normal 2.5-5.0 [facility] Comment on above: Order Comment: No: Do not add to previou s draw Performed By: #### 4 1000, 16767, 43241, 96497, 67170 ####[facility] [place] [address], [facility] ALBUMIN BLOODon 06-18-2017 Albumin 2.6 g/dL Low 3.5-5.7 [facility] Comment on above: Performed By: #### 54153, 28272, 44567, 67525, 91339 ####[facility] [place] [address], [facility] BASIC METABOLIC PANELon Calcium 8.4 mg/dL Low 8.6-10.3 [facility] Comment on above: Order Comment: No: Do not add to previou s draw Performed By: #### 5 0608 ####[facility] [place] [address], [facility] Chloride 106 mmol/L Normal 98-107 [facility] Comment on above: Order Comment: No: Do not add to previou s draw Performed By: #### 5 0608 ####[facility] [place] [address], [facility] CO2 25 mmol/L Normal 21-31 [facility] Comment on above: Order Comment: No: Do not add to previou s draw Performed By: #### 5 0608 ####[facility] [place] [address], [facility] Creatinine 0.93 mg/dL Normal 0.70-1.30 [facility] Comment on above: Order Comment: No: Do not add to previou s draw Performed By: #### 5 0608 ####[facility] [place] [address], [facility] eGFR (black) mL/min/{1.73_m2} Normal >60 [facility] Comment on above: Order Comment: No: Do not add to previou s draw Result Comment: Calc ulation may not be valid for patients over 70 years Performed By: #### 5 0608 ####[facility] [facility] [address], [facility] eGFR (non-black) mL/min/{1.73_m2} Normal >60 Th e [facility] Comment on above: Order Comment: No: Do not add to previou s draw Result Comment: Calc ulation may not be valid for patients over 70 years Performed By: #### 5 0608 ####[facility] [place] [address], [facility] Glucose mass conc 106 mg/dL High 70-100 [facility] Comment on above: Order Comment: No: Do not add to previou s draw Performed By: #### 5 0608 ####[facility] Potassium molar conc 3.4 mmol/L Low 3.5-5.1 [facility] Comment on above: Order Comment: No: Do not add to previou s draw Performed By: #### 5 0608 ####[place] [address] Sodium 137 mmol/L Normal 136-145 [facility] Comment on above: Order Comment: No: Do not add to previou s draw Performed By: #### 5 0608 ####[address] Urea nitrogen 21 mg/dL Normal 7-25 [facility] Comment on above: Order Comment: No: Do not add to previou s draw Performed By: #### 5 0608 ####[place] [address] [facility] CBC W/DIFFon 06-18-2017 Basophils Auto #/vol (Bld) 0.9 % Normal 0.0-2.0 [facility] Comment on above: Order Comment: No: Do not add to previou s draw Performed By: #### 5 0608 ####[address] Eosinophils/100 leukocytes 2.3 % Normal 0.0-5.0 [facility] Comment on above: Order Comment: No: Do not add to previou s draw Performed By: #### 5 0608 ####[address] Erythrocyte distribution width Auto Ratio (RBC) 13.6 % Normal 11.5-16.9 [facility] Comment on above: Order Comment: No: Do not add to previou s draw Performed By: #### 5 0608 ####[facility] Erythrocytes (RBC) 4.37 mill/mm3 Normal 4.30-5.90 [facility] Comment on above: Order Comment: No: Do not add to previou s draw Performed By: #### 5 0608 ####[facility] Hematocrit (HCT) 42.0 % Normal 39.0-55.0 [facility] Comment on above: Order Comment: No: Do not add to previou s draw Performed By: #### 5 0608 ####[facility] Hemoglobin mass conc (Bld) 14.2 g/dL Normal 13.9-16.3 [facility] Comment on above: Order Comment: No: Do not add to previou s draw Performed By: #### 5 0608 ####[facility] Lymphocytes/100 leukocytes 15.2 % Low 20.0-40.0 [facility] Comment on above: Order Comment: No: Do not add to previou s draw Performed By: #### 5 0608 ####[facility] MCH 32.5 pg High 24.0-32.0 [facility] Comment on above: Order Comment: No: Do not add to previou s draw Performed By: #### 5 0608 ####[facility] [place] [address], [facility] MCHC mass conc (RBC) 33.8 g/dL Normal 32.0-36.0 [facility] Comment on above: Order Comment: No: Do not add to previou s draw Performed By: #### 5 0608 ####[facility] [place] [address], [facility] MCV 96.1 fL Normal 80.0-100.0 [facility] Comment on above: Order Comment: No: Do not add to previou s draw Performed By: #### 5 0608 ####[facility] [place] [address], [facility] METHOD Normal RBC Morphology Normal [facility] Comment on above: Order Comment: No: Do not add to previou s draw Performed By: #### 5 0608 ####[facility] [facility] MONOS 11.8 % High 2-8 [facility] Comment on above: Order Comment: No: Do not add to previou s draw Performed By: #### 5 0608 ####[facility] [facility] [place] [address], [facility] Neutrophils/100 leukocytes 69.8 % Normal 50-70 [facility] Comment on above: Order Comment: No: Do not add to previou s draw Performed By: #### 5 0608 ####[facility] [facility].[address] PLAT CNT 168 Thou/mm3 Normal 100-400 [facility] Comment on above: Order Comment: No: Do not add to previou s draw Performed By: #### 5 0608 ####[facility] [facility].[address] WBC (Leukocytes) 10.8 Thou/mm3 High 4.0-10.0 [facility] Comment on above: Order Comment: No: Do not add to previou s draw Performed By: #### 5 0608 ####[facility] [facility] CPKon 06-18-2017 Creatine kinase (CK) 586 U/L High 30-223 [facility] Comment on above: Performed By: #### 29152, 95394, 64409, 54765, 69450 ####[facility] [place] [address], [facility] MAGNESIUM BLOODon 06-18-2017 Magnesium 1.9 mg/dL Normal 1.9-2.7 [facility] Comment on above: Order Comment: No: Do not add to previou s draw Performed By: #### 5 0608 ####[facility] [place] [address], [facility] MYOGLOBINon 06-18-2017 Myoglobin 353 ng/mL Critically high 0-90 [facility] Comment on above: Result Comment: A DOUBLING OF VALUES FRO M SERIAL BLOOD COLLECTIONS(1 - 2 HOURS APART) IS MORE INDICATIVE OF A M.I.THAN THE ABSOLUTE VALUE. Performed By: #### 4 1000, 25399, 98749, 55959, 71014 ####[facility] [place] [address], [facility] PHOSPHORUS BLOODon 8 Phosphate 3.7 mg/dL Normal 2.5-5.0 [facility] Comment on above: Order Comment: No: Do not add to previou s draw Performed By: #### 5 0608 ####[facility] [place] [address], [facility] BASIC METABOLIC PANELon Calcium 8.4 mg/dL Low 8.6-10.3 [facility] Comment on above: Order Comment: No: Do not add to previou s draw Performed By: #### 5 0608 ####[facility] [place] [address], [facility] Chloride 110 mmol/L High 98-107 [facility] Comment on above: Order Comment: No: Do not add to previou s draw Performed By: #### 5 0608 ####[facility] [place] [address], [facility] CO2 25 mmol/L Normal 21-31 [facility] Comment on above: Order Comment: No: Do not add to previou s draw Performed By: #### 5 0608 ####[facility] [place] [address], [facility] Creatinine 0.95 mg/dL Normal 0.70-1.30 [facility] Comment on above: Order Comment: No: Do not add to previou s draw Performed By: #### 5 0608 ####[facility] eGFR (black) mL/min/{1.73_m2} Normal >60 [facility] Comment on above: Order Comment: No: Do not add to previou s draw Result Comment: Calc ulation may not be valid for patients over 70 years Performed By: #### 5 0608 ####[facility] eGFR (non-black) mL/min/{1.73_m2} Normal >60 Th [facility] Comment on above: Order Comment: No: Do not add to previou s draw Result Comment: Calc ulation may not be valid for patients over 70 years Performed By: #### 5 0608 ####[facility] [place] [address], [facility] Glucose mass conc 107 mg/dL High 70-100 [facility] Comment on above: Order Comment: No: Do not add to previou s draw Performed By: #### 5 0608 ####[facility] [place] [address], [facility] Potassium molar conc 3.5 mmol/L Normal 3.5-5.1 [facility] Comment on above: Order Comment: No: Do not add to previou s draw Performed By: #### 5 0608 ####[facility] [place] [address], [facility] Sodium 141 mmol/L Normal 136-145 [facility] Comment on above: Order Comment: No: Do not add to previou s draw Performed By: #### 5 0608 ####[facility] Urea nitrogen 23 mg/dL Normal 7-25 [facility] Comment on above: Order Comment: No: Do not add to previou s draw Performed By: #### 5 0608 ####[facility] CBC COMPLETE BLOOD COUNTon 0 - Erythrocyte distribution width Auto Ratio (RBC) 13.7 % Normal 11.5-16.9 [facility] Comment on above: Order Comment: No: Do not add to previou s draw Performed By: #### 5 0608 ####[place] [address] [facility].[address] Erythrocytes (RBC) 4.45 mill/mm3 Normal 4.30-5.90 [facility] Comment on above: Order Comment: No: Do not add to previou s draw Performed By: #### 5 0608 ####[facility] Hematocrit (HCT) 42.9 % Normal 39.0-55.0 [facility] Comment on above: Order Comment: No: Do not add to previou s draw Performed By: #### 5 0608 ####[facility] Hemoglobin mass conc (Bld) 14.3 g/dL Normal 13.9-16.3 [facility] Comment on above: Order Comment: No: Do not add to previou s draw Performed By: #### 5 0608 ####[facility] [place] [address], [facility] MCH 32.1 pg High 24.0-32.0 [facility] Comment on above: Order Comment: No: Do not add to previou s draw Performed By: #### 5 0608 ####[facility] MCHC mass conc (RBC) 33.3 g/dL Normal 32.0-36.0 [facility] Comment on above: Order Comment: No: Do not add to previou s draw Performed By: #### 5 0608 ####[facility] MCV 96.3 fL Normal 80.0-100.0 [facility] Comment on above: Order Comment: No: Do not add to previou s draw Performed By: #### 5 0608 ####[facility] PLAT CNT 138 Thou/mm3 Normal 100-400 [facility] Comment on above: Order Comment: No: Do not add to previou s draw Performed By: #### 5 0608 ####[facility] WBC (Leukocytes) 10.7 Thou/mm3 High 4.0-10.0 [facility] Comment on above: Order Comment: No: Do not add to previou s draw Performed By: #### 5 0608 ####[facility] MYOGLOBINon 06-17-2017 Myoglobin 700 ng/mL Critically high 0-90 [facility] Comment on above: Result Comment: A DOUBLING OF VALUES FRO M SERIAL BLOOD COLLECTIONS(1 - 2 HOURS APART) IS MORE INDICATIVE OF A M.I.THAN THE ABSOLUTE VALUE. Performed By: #### 5 0608 ####[facility] LUMBAR SPINE WO CONTRA STon 06-16-[address] LUMBAR SPINE WO CONTRAST [facility] [place] [address] Patient Name: DESEAN LANDRY : 1940ex: MAge: Race: WhiteMRN: [id number]. Location: [id number] Status: IVisit #: [id number] Date: 06/16/2017 10:45:00 AMCompleted Date: 06/16/2017 11:31 AMRequesting Provider: NADEEN SALCEDO Attending Provider: NADEEN SALCEDO Report Copy To: Signs & Symptoms: Back Pain (specify level)History: Patient history not availableComments: R/O Fractures, If Other selected, state reason for examExam: 3D CT LUMBAR SPINE WO CONTRASTAccession #: [id number] 3D CT LUMBAR SPINE WO CONTRAST 06/16/2017 [...] L5-S1 with facet joint hypertrophy. Approved by:Paola Riley on 06/16/2017 11:56 AM EST. I, Srinath Meyer, have reviewed the images and report and concur with these findings. Electronically signed by:Srinath Meyer. Transcribed by: [email or web address], User Resident: PAOLA RILEYElectronically Signed by: SRINATH MEYER @ 06/16/2017 12:13 PMI personally read this/these film(s) with this resident Normal [facility] Comment on above: Order Comment: No: Do not add to previou s draw 3D CT [facility] THORACIC SPINE WO CONTRAST [facility] [address] [place] [address] Patient Name: DESEAN LANDRY : 1940ex: MAge: Race: WhiteMRN: [id number]. Location: [id number] Status: IVisit #: [id number] Date: 06/16/2017 10:45:00 AMCompleted Date: 06/16/2017 11:32 AMRequesting Provider: NADEEN SALCEDO Attending Provider: NADEEN SALCEDO Report Copy To: Signs & Symptoms: Back Pain (specify level)History: Patient history not availableComments: R/O Fractures, History of Fall and c/o Back Pain. Rule out fractureExam: 3D CT THORACIC SPINE WO CONTRASTAccession #: [id number] 3D CT THORACIC SPINE WO CONTRAST 06/16/2017 [...] recommended to monitor for resolution. Approved by:Bharat Davis on 06/16/2017 11:52 AM EST. I, Srinath Meyer, have reviewed the images and report and concur with these findings. Electronically signed by:Srinath Meyer. Transcribed by: [email or web address], User Resident: CAN DAVISElectronically Signed by: SRINATH MEYER @ 06/16/2017 12:03 PMI personally read this/these film(s) with this resident Normal [facility] Comment on above: Order Comment: No: Do not add to previou s draw BASIC METABOLIC PANELon Calcium 7.9 mg/dL Low 8.6-10.3 [facility] Comment on above: Order Comment: No: Do not add to previou s draw Performed By: #### 0 0071, 14977 ####[facility] [place] [address], [facility] Chloride 112 mmol/L High 98-107 [facility] Comment on above: Order Comment: No: Do not add to previou s draw Performed By: #### 0 0071, 68677 ####[facility] [place] [address], [facility] CO2 22 mmol/L Normal 21-31 [facility] Comment on above: Order Comment: No: Do not add to previou s draw Performed By: #### 0 0071, 40366 ####[facility] [place] [address], [facility] Creatinine 1.05 mg/dL Normal 0.70-1.30 [facility] Comment on above: Order Comment: No: Do not add to previou s draw Performed By: #### 0 0071, 42941 ####[facility] [place] [address], [facility] [facility] eGFR (black) mL/min/{1.73_m2} Normal >60 [facility] Comment on above: Order Comment: No: Do not add to previou s draw Result Comment: Calc ulation may not be valid for patients over 70 years Performed By: #### 0 0071, 27132 ####[facility] [place] [address], [facility] eGFR (non-black) mL/min/{1.73_m2} Normal >60 [facility] Comment on above: Order Comment: No: Do not add to previou s draw Result Comment: Calc ulation may not be valid for patients over 70 years Performed By: #### 0 0071, 02094 ####[facility] [place] [address], [facility] Glucose mass conc 102 mg/dL High 70-100 [facility] Comment on above: Order Comment: No: Do not add to previou s draw Performed By: #### 0 0071, 57823 ####[facility] [place] [address], [facility] Potassium molar conc 4.0 mmol/L Normal 3.5-5.1 [facility] Comment on above: Order Comment: No: Do not add to previou s draw Performed By: #### 0 0071, 70120 ####[facility] [place] [address], [facility] Sodium 139 mmol/L Normal 136-145 [facility] Comment on above: Order Comment: No: Do not add to previou s draw Performed By: #### 0 0071, 24094 ####[facility] [place] [address], [facility] Urea nitrogen 20 mg/dL Normal 7-25 [facility] Comment on above: Order Comment: No: Do not add to previou s draw Performed By: #### 0 0071, 74258 ####[facility] BNP (B-TYPE NATRIURETIC PEPT DEANNE)on 06-16-2017 BNP 1298 pg/mL High 0-100 [facility] Comment on above: Order Comment: No: Do not add to previou s draw Result Comment: Give n the appropriate clinical setting a BNP result of >100 pg/mLindicates congestive heart failure. Performed By: #### 5 0608 ####[facility] [place] [address], [facility] CBC COMPLETE BLOOD COUNTon 0 06-16-2017 Erythrocyte distribution width Auto Ratio (RBC) 13.7 % Normal 11.5-16.9 [facility] Comment on above: Order Comment: No: Do not add to previou s draw Performed By: #### 0 0071, 92917 ####[facility] [facility].[address] Erythrocytes (RBC) 4.24 mill/mm3 Low 4.30-5.90 [facility] Comment on above: Order Comment: No: Do not add to previou s draw Performed By: #### 0 0071, 07540 ####[facility] [facility].[address] Hematocrit (HCT) 40.7 % Normal 39.0-55.0 [facility] Comment on above: Order Comment: No: Do not add to previou s draw Performed By: #### 0 0071, 40660 ####[facility] [facility].[address] Hemoglobin mass conc (Bld) 13.6 g/dL Low 13.9-16.3 [facility] Comment on above: Order Comment: No: Do not add to previou s draw Performed By: #### 0 0071, 90068 ####[facility] [facility].[address] MCH 32.1 pg High 24.0-32.0 [facility] Comment on above: Order Comment: No: Do not add to previou s draw Performed By: #### 0 0071, 76494 ####[facility] [facility].[address] MCHC mass conc (RBC) 33.4 g/dL Normal 32.0-36.0 [facility] Comment on above: Order Comment: No: Do not add to previou s draw Performed By: #### 0 0071, 87960 ####[address] [place] [address], [facility] MCV 96.1 fL Normal 80.0-100.0 [facility] Comment on above: Order Comment: No: Do not add to previou s draw Performed By: #### 0 0071, 54842 ####[facility] [facility] [place] [address], [facility] PLAT CNT 120 Thou/mm3 Normal 100-400 [facility] Comment on above: Order Comment: No: Do not add to previou s draw Performed By: #### 0 0071, 32507 ####[facility] WBC (Leukocytes) 10.3 Thou/mm3 High 4.0-10.0 [facility] Comment on above: Order Comment: No: Do not add to previou s draw Performed By: #### 0 0071, 42883 ####[address] CPKon 06-16-2017 Creatine kinase (CK) 2950 U/L Critically high 30-223 [facility] Comment on above: Performed By: #### 04436, 90508 ####[address] CR-PORTABLE CHEST 1 VIEW IMP Emeli 06-16-2017 CR-PORTABLE CHEST 1 VIEW IMPORT Images were obtained outside of [facility] [id number] Normal [facility] CT CHEST WO CONTRASTon 06-16 CT CHEST WO CONTRAST [facility] [address] [place] [address] Patient Name: DESEAN LANDRY : 2Sex: MAge: Race: WhiteMRN: [id number]. Location: [id number] Status: IVisit #: [id number] Date: 06/16/2017 5:25:00 PMCompleted Date: 06/16/2017 06:06 PMRequesting Provider: RAFFAELE GARCIA Attending Provider: NADEEN SALCEDO Report Copy To: Signs & Symptoms: Shortness of BreathHistory: Patient history not availableComments: R/O Pleural Effusion, please comment about pleural effusionExam: CT CHEST WO CONTRASTAccession #: [id number] CT CHEST WO CONTRAST 06/16/2017 6:06 PM [...] plaque versus mesothelioma is suspected. Approved by:Sunitha Negrete on 06/17/2017 9:55 AM EST. I, Xiomara Christine, have reviewed the images and report and concur with these findings. Electronically signed by:Xiomara Christine. Transcribed by: [email or web address], User Resident: SUNITHA NEGRETEElectronically Signed by: XIOMARA CHRISTINE @ 06/17/2017 01:24 PMI personally read this/these film(s) with this resident Normal [facility] Comment on above: Order Comment: No: Do not add to previou s draw CT-3D CT LUMBAR SPINE WO CON TRAST IMPORTon 06-16-2017 CT-3D CT LUMBAR SPINE WO CONTRAST IMPORT Images were obtained outside of [facility] [id number] Normal [facility] CT-3D CT THORACIC SPINE WO C ONTRAST IMPORTon 06-16-2017 CT-3D CT THORACIC SPINE WO CONTRAST IMPORT Images were obtained outside of [facility] [id number] Normal [facility] CT-CT CHEST WO CONTRAST IMPO RTon 06-16-2017 CT-CT CHEST WO CONTRAST IMPORT Images were obtained outside of [facility] [id number] Normal [facility] MYOGLOBINon 06-16-2017 Myoglobin 872 ng/mL Critically high 0-90 [facility] Comment on above: Result Comment: A DOUBLING OF VALUES FRO M SERIAL BLOOD COLLECTIONS(1 - 2 HOURS APART) IS MORE INDICATIVE OF A M.I.THAN THE ABSOLUTE VALUE. Performed By: #### 0 0071, 82127 ####[facility] [place] [address], [facility] PORTABLE CHEST 1 VIEWon PORTABLE CHEST 1 VIEW [facility] [address] [place] [address] Patient Name: DESEAN LANDRY : 2Sex: MAge: Race: WhiteMRN: [id number]. Location: [id number] Status: IVisit #: [id number] Date: 06/16/2017 12:50:00 PMCompleted Date: 06/16/2017 01:22 PMRequesting Provider: NADEEN SALCEDO Attending Provider: NADEEN SALCEDO Report Copy To: Signs & Symptoms: O2 DesaturationHistory: Patient history not availableComments: R/O AspirationExam: PORTABLE CHEST 1 VIEWAccession #: [id number] PORTABLE CHEST 1 VIEW 06/16/2017 1:22 PM [...] chest. Electronically signed by:Srinath Meyer. Transcribed by: [email or web address], User Resident: Electronically Signed by: SRINATH MEYER @ 06/16/2017 01:25 PM Normal [facility] Comment on above: Order Comment: No: Do not add to previou s draw PROTHROMBIN TIMEon 8 INR Coag RelTime (PPP) 1.51 {INR} High 0.91-1.16 [facility] Comment on above: Order Comment: No: Do [...] OF ACTION, CLINICALEFFECTIVENESS, AND OPTIMAL THERAPEUTIC RANGE. [id number]. Performed By: #### 5 0608 ####[facility] Prothrombin time (PT) Coag time (PPP) 18.4 s High 12.3-14.8 [facility] Comment on above: Order Comment: No: Do not add to previou s draw Result Comment: ALL RESULTS MUST BE INTERPRETED WITH RESPECT TO BLOOD DRAWING ARTIFACTOR DILUTION ERROR OF ANTICOAGULANT AT THE TIME OF SAMPLING. Performed By: #### 5 0608 ####[facility] BASIC METABOLIC PANELon - Calcium 8.0 mg/dL Low 8.6-10.3 [facility] Comment on above: Order Comment: No: Do not add to previou s draw Performed By: #### 0 0071, 77840, 79495, 85553 ####[facility] [place] [address], [facility] Chloride 109 mmol/L High 98-107 [facility] Comment on above: Order Comment: No: Do not add to previou s draw Performed By: #### 0 0071, 36823, 22030, 75267 ####[facility] [place] [address], [facility] CO2 21 mmol/L Normal 21-31 [facility] Comment on above: Order Comment: No: Do not add to previou s draw Performed By: #### 0 0071, 43353, 33231, 81911 ####[facility] [facility] Creatinine 1.15 mg/dL Normal 0.70-1.30 [facility] Comment on above: Order Comment: No: Do not add to previou s draw Performed By: #### 0 0071, 01109, 55543, 05531 ####[facility] eGFR (black) mL/min/{1.73_m2} Normal >60 [facility] Comment on above: Order Comment: No: Do not add to previou s draw Result Comment: Calc ulation may not be valid for patients over 70 years Performed By: #### 0 0071, 86934, 57744, 89065 ####[facility] [place] [address], [facility] eGFR (non-black) mL/min/{1.73_m2} Normal >60 [facility] Comment on above: Order Comment: No: Do not add to previou s draw Result Comment: Calc ulation may not be valid for patients over 70 years Performed By: #### 0 0071, 69616, 29421, 86112 ####[facility] [place] [address], [facility] Glucose mass conc 117 mg/dL High 70-100 [facility] Comment on above: Order Comment: No: Do not add to previou s draw Performed By: #### 0 0071, 39216, 10289, 98795 ####[facility] [place] [address], [facility] Potassium molar conc 3.9 mmol/L Normal 3.5-5.1 [facility] Comment on above: Order Comment: No: Do not add to previou s draw Performed By: #### 0 0071, 88674, 35472, 46136 ####[facility] [place] [address], [facility] Sodium 138 mmol/L Normal 136-145 [facility] Comment on above: Order Comment: No: Do not add to previou s draw Performed By: #### 0 0071, 14733, 09352, 71882 ####[facility] [place] [address], [facility] Urea nitrogen 23 mg/dL Normal 7-25 [facility] Comment on above: Order Comment: No: Do not add to previou s draw Performed By: #### 0 0071, 05001, 73006, 59280 ####[facility] [place] [address], [facility] CBC COMPLETE BLOOD COUNTon 0 - Erythrocyte distribution width Auto Ratio (RBC) 13.7 % Normal 11.5-16.9 [facility] Comment on above: Order Comment: No: Do not add to previou s draw Performed By: #### 5 0608 ####[facility] Erythrocytes (RBC) 4.44 mill/mm3 Normal 4.30-5.90 [facility] Comment on above: Order Comment: No: Do not add to previou s draw Performed By: #### 5 0608 ####[facility] [facility].[address] Hematocrit (HCT) 42.7 % Normal 39.0-55.0 [facility] Comment on above: Order Comment: No: Do not add to previou s draw Performed By: #### 5 0608 ####[place] [address] [facility].[address] Hemoglobin mass conc (Bld) 14.5 g/dL Normal 13.9-16.3 [facility] Comment on above: Order Comment: No: Do not add to previou s draw Performed By: #### 5 0608 ####[facility] [facility].[address] MCH 32.7 pg High 24.0-32.0 [facility] Comment on above: Order Comment: No: Do not add to previou s draw Performed By: #### 5 0608 ####[facility] [facility].[address] MCHC mass conc (RBC) 34.0 g/dL Normal 32.0-36.0 [facility] Comment on above: Order Comment: No: Do not add to previou s draw Performed By: #### 5 0608 ####[facility] [facility].[address] MCV 96.1 fL Normal 80.0-100.0 [facility] Comment on above: Order Comment: No: Do not add to previou s draw Performed By: #### 5 0608 ####[facility] [place] [address], [facility] PLAT CNT 134 Thou/mm3 Normal 100-400 [facility] Comment on above: Order Comment: No: Do not add to previou s draw Performed By: #### 5 0608 ####[facility] [facility].[address] WBC (Leukocytes) 11.3 Thou/mm3 High 4.0-10.0 [facility] Comment on above: Order Comment: No: Do not add to previou s draw Performed By: #### 5 0608 ####[facility] [facility].[address] CPKon 06-15-2017 Creatine kinase (CK) 7925 U/L Critically high 30-223 [facility] Comment on above: Order Comment: No: Do not add to previou s draw Performed By: #### 0 0071, 64281 ####[place] [address] [facility].[address] MAGNESIUM BLOODon 06-15-2017 Magnesium 2.4 mg/dL Normal 1.9-2.7 [facility] Comment on above: Performed By: #### 20604, 71820 ####[address] PHOSPHORUS BLOODon 8 Phosphate 2.6 mg/dL Normal 2.5-5.0 [facility] Comment on above: Performed By: #### 37000, 30930 ####[address] BASIC METABOLIC PANELon 12-3 Calcium 8.3 mg/dL Low 8.6-10.3 [facility] Comment on above: Order Comment: No: Do not add to previou s draw Performed By: #### 4 1000, 84611, 57693, 97457, 17079 ####[facility] [facility].[address] Chloride 107 mmol/L Normal 98-107 [facility] Comment on above: Order Comment: No: Do not add to previou s draw Performed By: #### 4 1000, 89534, 34373, 69408, 27238 ####[facility] [place] [address], [facility] CO2 23 mmol/L Normal 21-31 [facility] Comment on above: Order Comment: No: Do not add to previou s draw Performed By: #### 4 1000, 96126, 08586, 09732, 95763 ####[facility] [place] [address], [facility] Creatinine 1.25 mg/dL Normal 0.70-1.30 [facility] Comment on above: Order Comment: No: Do not add to previou s draw Performed By: #### 4 1000, 91814, 50858, 80269, 73906 ####[facility] eGFR (black) mL/min/{1.73_m2} Normal >60 [facility] Comment on above: Order Comment: No: Do not add to previou s draw Result Comment: Calc ulation may not be valid for patients over 70 years Performed By: #### 4 1000, 14500, 91642, 47299, 64343 ####[facility] [place] [address], [facility] eGFR (non-black) 56 ml/min/1.73sq m Abnormal >60 [facility] Comment on above: Order Comment: No: Do not add to previou s draw Result Comment: Calc ulation may not be valid for patients over 70 years Performed By: #### 4 1000, 19983, 70423, 54962, 78886 ####[facility] [place] [address], [facility] Glucose mass conc 109 mg/dL High 70-100 [facility] Comment on above: Order Comment: No: Do not add to previou s draw Performed By: #### 4 1000, 35582, 54621, 98068, 74909 ####[facility] [place] [address], [facility] Potassium molar conc 4.3 mmol/L Normal 3.5-5.1 [facility] Comment on above: Order Comment: No: Do not add to previou s draw Performed By: #### 4 1000, 34408, 92753, 31720, 71628 ####[facility] Sodium 136 mmol/L Normal 136-145 [facility] Comment on above: Order Comment: No: Do not add to previou s draw Performed By: #### 4 1000, 42998, 72940, 07356, 72976 ####[facility] Urea nitrogen 25 mg/dL Normal 7-25 [facility] Comment on above: Order Comment: No: Do not add to previou s draw Performed By: #### 4 1000, 93586, 25883, 79819, 45888 ####[facility] CBC COMPLETE BLOOD COUNTon Erythrocyte distribution width Auto Ratio (RBC) 13.8 % Normal 11.5-16.9 [facility] Comment on above: Order Comment: No: Do not add to previou s draw Performed By: #### 5 0608 ####[facility] [place] [address], [facility] Erythrocytes (RBC) 4.83 mill/mm3 Normal 4.30-5.90 [facility] Comment on above: Order Comment: No: Do not add to previou s draw Performed By: #### 5 0608 ####[facility] Hematocrit (HCT) 46.7 % Normal 39.0-55.0 [facility] Comment on above: Order Comment: No: Do not add to previou s draw Performed By: #### 5 0608 ####[facility] Hemoglobin mass conc (Bld) 15.8 g/dL Normal 13.9-16.3 [facility] Comment on above: Order Comment: No: Do not add to previou s draw Performed By: #### 5 0608 ####[facility] MCH 32.7 pg High 24.0-32.0 [facility] Comment on above: Order Comment: No: Do not add to previou s draw Performed By: #### 5 0608 ####[facility] MCHC mass conc (RBC) 33.9 g/dL Normal 32.0-36.0 [facility] Comment on above: Order Comment: No: Do not add to previou s draw Performed By: #### 5 0608 ####[facility] MCV 96.6 fL Normal 80.0-100.0 [facility] Comment on above: Order Comment: No: Do not add to previou s draw Performed By: #### 5 0608 ####[facility] [place] [address], [facility] PLAT CNT 135 Thou/mm3 Normal 100-400 [facility] Comment on above: Order Comment: No: Do not add to previou s draw Performed By: #### 5 0608 ####[facility] WBC (Leukocytes) 15.7 Thou/mm3 High 4.0-10.0 [facility] Comment on above: Order Comment: No: Do not add to previou s draw Performed By: #### 5 0608 ####[facility] CPKon 06-14-2017 Creatine kinase (CK) 03848 U/L Critically high 30-223 [facility] Comment on above: Performed By: #### 82345, 09598, 90699, 38056, 65318 ####[facility] MAGNESIUM BLOODon 06-14-2017 Magnesium 2.8 mg/dL High 1.9-2.7 [facility] Comment on above: Order Comment: No: Do not add to previou s draw Performed By: #### 4 1000, 63567, 20227, 07389, 19961 ####[facility] PHOSPHORUS BLOODon 7 Phosphate 3.3 mg/dL Normal 2.5-5.0 [facility] Comment on above: Order Comment: No: Do not add to previou s draw Performed By: #### 4 1000, 01199, 92306, 33953, 56489 ####[facility] TSHon 06-14-2017 Thyroid stimulating hormone (TSH) 2.65 MICRO-IU/ML Normal 0.34-5.60 [facility] Comment on above: Performed By: #### 39712, 57609, 30419, 87897, 82062 ####[facility] BASIC METABOLIC PANELon 05-17 Calcium 8.4 mg/dL Low 8.6-10.3 [facility] Comment on above: Order Comment: No: Do not add to previou s draw Performed By: #### 0 0071, 21112 ####[facility] [place] [address], [facility] Chloride 105 mmol/L Normal 98-107 [facility] Comment on above: Order Comment: No: Do not add to previou s draw Performed By: #### 0 0071, 86406 ####[facility] [place] [address], [facility] CO2 26 mmol/L Normal 21-31 [facility] Comment on above: Order Comment: No: Do not add to previou s draw Performed By: #### 0 0071, 27541 ####[facility] [place] [address], [facility] Creatinine 1.26 mg/dL Normal 0.70-1.30 [facility] Comment on above: Order Comment: No: Do not add to previou s draw Performed By: #### 0 0071, 99099 ####[facility] [place] [address], [facility] eGFR (black) mL/min/{1.73_m2} Normal >60 [facility] Comment on above: Order Comment: No: Do not add to previou s draw Result Comment: Calc ulation may not be valid for patients over 70 years Performed By: #### 0 0071, 28156 ####[facility] [place] [address], [facility] eGFR (non-black) 56 ml/min/1.73sq m Abnormal >60 [facility] Comment on above: Order Comment: No: Do not add to previou s draw Result Comment: Calc ulation may not be valid for patients over 70 years Performed By: #### 0 0071, 44102 ####[facility] [place] [address], [facility] Glucose mass conc 106 mg/dL High 70-100 [facility] Comment on above: Order Comment: No: Do not add to previou s draw Performed By: #### 0 0071, 09537 ####[facility] Potassium molar conc 4.8 mmol/L Normal 3.5-5.1 [facility] Comment on above: Order Comment: No: Do not add to previou s draw Performed By: #### 0 0071, 37325 ####[facility] Sodium 138 mmol/L Normal 136-145 [facility] Comment on above: Order Comment: No: Do not add to previou s draw Performed By: #### 0 0071, 70468 ####[facility] Urea nitrogen 23 mg/dL Normal 7-25 [facility] Comment on above: Order Comment: No: Do not add to previou s draw Performed By: #### [id number], [id number] ####[facility] CPKon 06-13-2017 Creatine kinase (CK) 10177 U/L Critically high 30-223 [facility] Comment on above: Order Comment: No: Do not add to previou s draw Performed By: #### [id number], [id number] ####[facility] History and Physicalon 06-13 History and Physical [id number] Admitted: 06/13/2017 Date of : 1940 Attending Physician: Arpan Camacho MD Room #: [id number] [id number] Discharge Date: HISTORY AND PHYSICALPRIMARY CARE PHYSICIAN: Diogenes Garcia M.D.REASON FOR ADMISSION: Severe rhabdomyolysis.HISTORY OF PRESENT [...] evaluation and management.The patient presented to the [facility] Emergency Department. Overthere, the patient had initial workup revealed severe rhabdomyolysis, sothe patient was referred to the [facility] for further evaluationand management. Denying [...] Dict: 06/13/2017/06:07 P/Mariangel Hayes Trans: 06/13/2017 06:38 [id number] Normal [facility] Encounters Encounter Date Encounter Type Care Provider Facility Start: 03-16-2024 End: 03-16-2024 ambulatory [facility] Start: 08-26-2022 End: 08-27-[address] DIOGENES GARCIA . Facility:[facility] Start: 08-20-2022 End: 08-20-[address] DIOGENES GARCIA . Facility:[facility] Start: 07-30-2022 End: 07-31-[address] DIOGENES GARCIA . Facility:[facility] Start: 03-02-2022 End: 03-03-[address] SRINATH MCKEON Facility:[facility] Start: 02-19-2022 End: 02-20-[address] DIOGENES GARCIA . Facility: Start: 01-15-2022 End: 01-16-[address] DIOGENES GARCIA . Facility: Start: 04-06-2018 End: 04-06-2018 Patient encounter procedure CESAR BELTRAN [facility] Start: 09-10-2017 End: 09-11-2017 Patient encounter procedure CESAR BELTRAN [facility] Start: 07-23-2017 End: 07-24-2017 Patient encounter procedure CESAR BELTRAN [facility] Start: 07-23-2017 End: 07-23-2017 Patient encounter procedure KALEB SANDOVAL [facility] Start: 06-13-2017 End: 06-20-2017 Evaluation and management of inpatient ARPAN FRANK Facility:[facility] Procedures Date Procedure Procedure Detail Performing Clinician Start: 07-30-[address] YUAN GARCIA . Comment on above: Performed By: #### P TT, PT #### [facility] [address] [place] [address] Dr. Artem Rojas Payers Date Payer Category [employer]ayer [employer] ( and others) [id number] 1958 Medicare [id number] 1940 Unknown [id number] 1940 Unknown [id number] 1940 Unknown [id number] 1940 Unknown [id number] 1940 Unknown [id number] 1940 Unknown [id number] Medicare [id number] Progress note 03-16-2024 Note Date & Type Note Facility 03-16-2024 Note [place] [facility] Subjective Desean Landry Jr. is a 83 y.o. year old male patient being seen for 1 year follow up permanent afib, hypertension, and peripheral venous insufficiency. He was admitted to [facility] in Jan 2024 for LLE cellulitis. He is now following with wound care for that. Patient denies chest pain, SOB, palpitations, and bleeding on Eliquis. His device was also interrogated in the office today. Patient Active Problem List Diagnosis Longstanding persistent atrial fibrillation (CMS/HCC) Primary hypertension Peripheral venous insufficiency Atrial fibrillation (CMS/HCC) Chronic obstructive lung disease (CMS/HCC) Closed nondisplaced fracture of sixth cervical vertebra (CMS/HCC) Dyspnea Hyperlipidemia Intermittent claudication (CMS/HCC) Low back pain PAD (peripheral artery disease) (CMS/HCC) Bradycardia Status post placement of cardiac pacemaker Phuong Family History Problem Relation Name Age of Onset Cancer Mother Social History Tobacco Use Smoking status: Former Types: Cigarettes Quit date: 2006 Years since quittin.7 Passive exposure: Past Smokeless tobacco: Never Substance Use Topics Alcohol use: Not Currently Drug use: Never HPI Mr Landry is seen in follow up. He is a 83 yo man with chronic AF on anticoagulation and rate control. Visit of 11/30/2015: He was referred from Dr Garcia's office for new onset atrial fibrillation. He [...] normal ventricular function, fixed inferior defect (prior AR vs. artifact), normal wall motion, no ischemia. [...] Update 07/08/2017: He was admitted recently to [facility] after falling and having rhabdomyolysis. He was hydrated. He did well. This was possibly related to deconditioning and he is getting physical therapy. He will be soon discharged to home from the shelter. otherwise he has no issues. Update 02/04/2018: [...] 2020 and was not revealing. He reports (more content not included)... [facility] Summary Purpose Family History No Family History [...] and content) DATE CREATED AUTHOR 12/08/2017 [facility] DATE CREATED AUTHOR AUTHOR'S ORGANIZ ATION 05/18/2018 [facility] DATE CREATED AUTHOR AUTHOR'S ORGANIZ ATION 01/16/2021 [facility] DATE CREATED AUTHOR AUTHOR'S ORGANIZ ATION 06/06/[address] [facility] DATE CREATED AUTHOR AUTHOR'S ORGANIZ ATION 09/02/2022 [facility] DATE CREATED AUTHOR AUTHOR'S ORGANIZ ATION 03/18/2024 [facility] FOR RECORDS PERTAINING TO PATIENTS WHO [...] BE BASED ON THE PRIMARY CLINICAL RECORDS. [employer] provides no warranty or guarantee of the accuracy or completeness of information in this document.
== END 2024-03-25 09:45 | disposition home or self-care (01) ==
LOC: WC 09:45
PROVIDERS: PCP Family Medicine; Visit Provider Podiatrist Foot & Ankle Surgery
DX: T81.89XA Other complications of procedures, not elsewhere classified, initial encounter (principal); I48.21 Permanent atrial fibrillation; I35.1 Nonrheumatic aortic (valve) insufficiency
CPT/HCPCS: 93306; G0463

== ENCOUNTER 2024-03-25 09:53 | Outpatient (OUT) | payer MEDICARE, OTHER, MEDICAID, SELFPAY ==
--- OUTSIDE RECORDS SUMMARY | 2024-03-25 09:56 | XMS_ITS | CCD ---
Author Organization [facility] Care Team Providers Care Retarder Operator Name Role Phone ARPAN CAMACHO Unavailable Unavailable SAHRA GLIMORE Unavailable Unavailable GAIL GARCIALAS Unavailable Unavailable FEDERMAN, DIOGENES Unavailable Unavailable LORI, RENDELL Unavailable Unavailable LORI, RENDELL Unavailable Unavailable JOSE ITALO (DIRECTOR MEDICAL ECONOMICS) Unavailable Unavailable LORI, RENDELL Unavailable Unavailable LORI, [...] ., DR SHETTY Primary Care Unavailable MITCHELL EMJIA Admitting Unavailable MITCHELL MEJIA Attending Unavailable MATTHEW [...] Onset: 03-04-2022 Episodic Other aftercare (1 source) senior care (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; Translations: [INKING MACHINE TENDER (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 1940 M Date Provider Department Center 03/16/2024 [facility]AGAN [facility] Family History Problem Relation Age of Onset Cancer Mother Family Status - Relation Status Age at Mother Level of Service:54099 MD OFFICE/OUTPATIENT ESTABLISHED MOD MDM 30 MIN Normal [facility] Orders Onlyon 08-19-2023 Orders Only [id number] Jordin Landry meghna Crawford Jr. 1940 M Date Provider Department Center 08/19/2023 DREAD JO[facility]PH [facility] CARD [place] Family History Problem Relation Age of Onset Cancer Mother Family Status - Relation Status Age at Mother Normal [facility] CBC AUTO DIFFon 08-26-2022 BASO # 0.1 103/ul Normal 0.0-0.1 [facility] Comment on above: Performed By: #### CBC #### [facility] [address] [address] [address] Artem Rojas Basophils/100 WBC (Bld) 1.0 % Normal 0.2-2.0 [facility] Comment on above: Performed By: #### CBC #### [facility] [address] [address] [address] Artem Rojas EO # 0.2 103/ul Normal 0.0-0.7 [facility] Comment on above: Performed By: #### CBC #### [facility] [address] [address] [address] Artem Rojas Eosinophils/100 WBC (Bld) 2.0 % Normal 0.9-7.0 [facility] Comment on above: Performed By: #### CBC #### [facility] [address] [address] [address] Artem Rojas Erythrocyte distribution width (RBC) [Ratio] 13.1 % Normal 11.0-15.0 [facility] Comment on above: Performed By: #### CBC #### [facility] [address] [place] [address] Dr. Artem Rojas Hematocrit (Bld) [Volume fraction] 43.8 % Normal 42.0-54.0 [facility] Comment on above: Performed By: #### CBC #### [facility] [address] [place] [address] Dr. Artem Rojas Hemoglobin (Bld) [Mass/Vol] 14.5 g/dL Normal 14.0-18.0 [facility] Comment on above: Performed By: #### CBC #### [facility] [address] [place] [address] Dr. Artem Rojas IG # 0.07 10e3/ul Critically high 0.00-0.03 [facility] Comment on above: Performed By: #### CBC #### [facility] [address] [place] [address] Dr. Artem Rojas IG % 0.8 % Critically high 0.0-0.5 [facility] Comment on above: Performed By: #### CBC #### [facility] [address] [place] [address] Dr. Artem Rojas LYMPH # 1.8 103/ul Normal 1.2-3.8 [facility] Comment on above: Performed By: #### CBC #### [facility] [address] [place] [address] Dr. Artem Rojas Lymphocytes/100 WBC (Bld) 20.0 % Critically low 20.5-60.0 [facility] Comment on above: Performed By: #### CBC #### [facility] [address] [place] [address] Dr. Artem Rojas MANUAL DIFF REQ NO Normal [facility] Comment on above: Performed By: #### CBC #### [facility] [address] [place] [address] Dr. Artem Rojas MCH (RBC) [Entitic mass] 30.0 pg Normal 25.9-34.0 [facility] Comment on above: Performed By: #### CBC #### [facility] [address] [place] [address] Dr. Artem Rojas MCHC (RBC) [Mass/Vol] 33.1 g/dL Normal 29.9-35.2 [facility] Comment on above: Performed By: #### CBC #### [facility] [address] [place] [address] Dr. Artem Rojas MCV (RBC) [Entitic vol] 90.7 fL Normal 80.0-94.0 [facility] Comment on above: Performed By: #### CBC #### [facility] [address] [place] [address] Dr. Artem Rojas MONO # 0.8 103/ul Normal 0.3-0.8 [facility] Comment on above: Performed By: #### CBC #### [facility] [address] [place] [address] Dr. Artem Rojas Monocytes/100 WBC (Bld) 8.7 % Normal 1.7-12.0 [facility] Comment on above: Performed By: #### CBC #### [facility] [address] [place] [address] Dr. Artem Rojas NEUT # 6.1 103/ul Normal 1.4-6.5 [facility] Comment on above: Performed By: #### CBC #### [facility] [address] [place] [address] Dr. Artem Rojas Neutrophils/100 WBC (Bld) 67.5 % Normal 43.0-75.0 [facility] Comment on above: Performed By: #### CBC #### [facility] [address] [place] [address] Dr. Artem Rojas Platelet mean volume (Bld) [Entitic vol] 9.7 fL Normal 9.5-13.5 [facility] Comment on above: Performed By: #### CBC #### [facility] [address] [place] [address] Dr. Artem Rojas PLT 333 103/ul Normal 150-450 [facility] Comment on above: Performed By: #### CBC #### [facility] [address] [place] [address] Dr. Artem Rojas RBC 4.83 106/ul Normal 4.70-6.10 [facility] Comment on above: Performed By: #### CBC #### [facility] [address] [place] [address] Dr. Artem Rojas WBC 9.0 103/ul Normal 4.0-11.0 [facility] Comment on above: Performed By: #### CBC #### [facility] [address] [place] [address] Dr. Artem Rojas PROF CHEM 8 (BAS METB)on Anion gap [Moles/Vol] 9.4 mmol/L Normal [facility] Comment on above: Performed By: #### PTT, PT #### [facility] [address] [address] [address] Artem Rojas Calcium [Mass/Vol] 9.4 mg/dL Normal 8.5-10.1 [facility] Comment on above: Performed By: #### PTT, PT #### [facility] [address] [address] [address] Artem Rojas Chloride [Moles/Vol] 105 mmol/L Normal 98-107 [facility] Comment on above: Performed By: #### PTT, PT #### [facility] [address] [address] [address] Artem Rojas CO2 [Moles/Vol] 29.3 mmol/L Normal 21.0-32.0 [facility] Comment on above: Performed By: #### PTT, PT #### [facility] [address] [place] [address] Dr. Artem Rojas Creatinine [Mass/Vol] 1.06 mg/dL Normal 0.70-1.30 [facility] Comment on above: Performed By: #### PTT, PT #### [facility] [address] [place] [address] Dr. Artem Rojas EGFR-AF MALTESE >60 Normal >=60 [facility] Comment on above: Performed By: #### PTT, PT #### [facility] [address] [place] [address] Dr. Artem Rojas EGFR-NON AF MALTESE >60 Normal >=60 [facility] Comment on above: Performed By: #### PTT, PT #### [facility] [address] [address] [address] Artem Rojas Glucose [Mass/Vol] 125 mg/dL Critically high 74-106 [facility] Comment on above: Performed By: #### PTT, PT #### [facility] [address] [address] [address] Artem Rojas Potassium [Moles/Vol] 4.3 mmol/L Normal 3.5-5.1 [facility] Comment on above: Performed By: #### PTT, PT #### [facility] [address] [address] [address] Artem Rojas Sodium [Moles/Vol] 139 mmol/L Normal 136-145 [facility] Comment on above: Performed By: #### PTT, PT #### [facility] [address] [address] [address] Artem Rojas Urea nitrogen [Mass/Vol] 20.0 mg/dL Critically high 7.0-18.0 [facility] Comment on above: Performed By: #### PTT, PT #### [facility] [address] [address] [address] Artem Rojas Urea nitrogen/Creatin ine [Mass ratio] 18.9 mg/mg Normal [facility] Comment on above: Performed By: #### PTT, PT #### [facility] [address] [place] [address] Dr. Artem Rojas Covid-19 PCR ([facility])on SARS-CoV-2 (COVID-19) RNA MONICA+probe Ql (Unsp spec) Not detected Normal NOT DETECTED [facility] Comment on above: Result Comment: When [...] for this test is supported by the [employer]'s declaration that [...] Performed By: #### P TT, PT #### [facility] [address] [place] [address] Dr. Artem Rojas INFLUENZA A AND B AGon 08-20 INFLUANE SEE BELOW Normal [facility] Comment on above: Result Comment: Negative for Flu A prote in angiten. Infection due to Flu A cannot be ruled out. Flu A angiten in the sample may be below the detection limit of the test. Performed By: #### P TT, PT #### [facility] [address] [place] [address] Dr. Artem Rojas INFLUBNEGH SEE BELOW Normal [facility] Comment on above: Result Comment: Negative for Flu B prote in antigen. Infection due to Flu B cannot be ruled out. Flu B antigen in the sample may be below the detection limit of the test. Performed By: #### P TT, PT #### [facility] [address] [place] [address] Dr. Artem Rojas INFLUENZA A AG Negative Normal NEGATIVE SEE COMMENT [facility] Comment on above: Performed By: #### PTT, PT #### [facility] [address] [place] [address] Dr. Artem Rojas INFLUENZA B AG Negative Normal NEGATIVE SEE COMMENT [facility] Comment on above: Performed By: #### PTT, PT #### [facility] [address] [place] [address] Dr. Artem Rojas INSULINon 07-31-2022 Insulin 16.3 uIU/mL Normal 2.6-24.9 [facility] Comment on above: Performed By: #### PTT, PT #### [facility] [address] [place] [address] Dr. Artem Rojas BNPon 07-30-2022 Natriuretic peptide B (Bld) [Mass/Vol] 1826.0 pg/mL Critically high <=1,800.0 [facility] Comment on above: Performed By: #### CMP, BNP, URIC, TSH, T7, LIPID #### [facility] [address] [place] [address] Dr. Artem Rojas CBC AUTO DIFFon 07-30-2022 BASO # 0.1 103/ul Normal 0.0-0.1 [facility] Comment on above: Performed By: #### PTT, PT #### [facility] [address] [address] [address] Artem Rojas Basophils/100 WBC (Bld) 1.0 % Normal 0.2-2.0 [facility] Comment on above: Performed By: #### PTT, PT #### [facility] [address] [place] [address] Dr. rAtem Rojas EO # 0.2 103/ul Normal 0.0-0.7 [facility] Comment on above: Performed By: #### PTT, PT #### [facility] [address] [place] [address] Dr. Artem Rojas Eosinophils/100 WBC (Bld) 2.4 % Normal 0.9-7.0 [facility] Comment on above: Performed By: #### PTT, PT #### [facility] [address] [place] [address] Dr. Artem Rojas Erythrocyte distribution width (RBC) [Ratio] 13.8 % Normal 11.0-15.0 [facility] Comment on above: Performed By: #### PTT, PT #### [facility] [address] [place] [address] Dr. Artem Rojas Hematocrit (Bld) [Volume fraction] 44.1 % Normal 42.0-54.0 [facility] Comment on above: Performed By: #### PTT, PT #### [facility] [address] [place] [address] Dr. Artem Rojas Hemoglobin (Bld) [Mass/Vol] 14.5 g/dL Normal 14.0-18.0 [facility] Comment on above: Performed By: #### PTT, PT #### [facility] [address] [place] [address] Dr. Artem Rojas IG # 0.02 10e3/ul Normal 0.00-0.03 [facility] Comment on above: Performed By: #### PTT, PT #### [facility] [address] [place] [address] Dr. Artem Rojas IG % 0.2 % Normal 0.0-0.5 [facility] Comment on above: Performed By: #### PTT, PT #### [facility] [address] [address] [address] Artem Rojas LYMPH # 2.1 103/ul Normal 1.2-3.8 [facility] Comment on above: Performed By: #### PTT, PT #### [facility] [address] [address] [address] Artem Rojas Lymphocytes/100 WBC (Bld) 24.3 % Normal 20.5-60.0 [facility] Comment on above: Performed By: #### PTT, PT #### [facility] [address] [place] [address] Dr. Artem Rojas MANUAL DIFF REQ NO Normal [facility] Comment on above: Performed By: #### PTT, PT #### [facility] [address] [place] [address] Dr. Artem Rojas MCH (RBC) [Entitic mass] 30.3 pg Normal 25.9-34.0 [facility] Comment on above: Performed By: #### PTT, PT #### [facility] [address] [place] [address] Dr. Artem Rojas MCHC (RBC) [Mass/Vol] 32.9 g/dL Normal 29.9-35.2 [facility] Comment on above: Performed By: #### PTT, PT #### [facility] [address] [place] [address] Dr. Artem Rojas MCV (RBC) [Entitic vol] 92.1 fL Normal 80.0-94.0 [facility] Comment on above: Performed By: #### PTT, PT #### [facility] [address] [place] [address] Dr. Artem Rojas MONO # 0.8 103/ul Normal 0.3-0.8 [facility] Comment on above: Performed By: #### PTT, PT #### [facility] [address] [place] [address] Dr. Artem Rojas Monocytes/100 WBC (Bld) 9.0 % Normal 1.7-12.0 [facility] Comment on above: Performed By: #### PTT, PT #### [facility] [address] [address] [address] Artem Rojas NEUT # 5.6 103/ul Normal 1.4-6.5 [facility] Comment on above: Performed By: #### PTT, PT #### [facility] [address] [address] [address] Artem Rojas Neutrophils/100 WBC (Bld) 63.1 % Normal 43.0-75.0 [facility] Comment on above: Performed By: #### PTT, PT #### [facility] [address] [place] [address] Dr. Artem Rojas Platelet mean volume (Bld) [Entitic vol] 10.0 fL Normal 9.5-13.5 [facility] Comment on above: Performed By: #### PTT, PT #### [facility] [address] [address] [address] Artem Rojas PLT 193 103/ul Normal 150-450 [facility] Comment on above: Performed By: #### PTT, PT #### [facility] [address] [place] [address] Dr. Artem Rojas RBC 4.79 106/ul Normal 4.70-6.10 [facility] Comment on above: Performed By: #### PTT, PT #### [facility] [address] [place] [address] Dr. Artem Rojas WBC 8.8 103/ul Normal 4.0-11.0 [facility] Comment on above: Performed By: #### PTT, PT #### [facility] [address] [place] [address] Dr. Artem Rojas FREE THYROXINE INDEX T7on FTI 2.52 Normal 1.30-4.50 [facility] Comment on above: Performed By: #### CMP, BNP, URIC, TSH, T7, LIPID #### [facility] [address] [place] [address] Dr. Artem Rojas T3U 35.0 % Normal 33.0-40.0 [facility] Comment on above: Performed By: #### CMP, BNP, URIC, TSH, T7, LIPID #### [facility] [address] [address] [address] Artem Rojas T4 [Mass/Vol] 7.20 ug/dL Normal 4.50-12.10 [facility] Comment on above: Performed By: #### CMP, BNP, URIC, TSH, T7, LIPID #### [facility] [address] [place] [address] Dr. Artem Rojas GLYCOHEMOGLOBIN A1Con 2022 ADA RECOMMENDATION SEE BELOW Normal [facility] Comment on above: Result Comment: ADA RECOMMENDED LIMIT 4. 0 - 6.0 ADA THERAPEUTIC TARGET < 7.0 ACTION SUGGESTED > 7.0 Performed By: #### A 1C #### [facility] [address] [place] [address] Dr. Artem Rojas Glucose [Mass/Vol] 128 mg/dL Normal [facility] Comment on above: Performed By: #### A1C #### [facility] [address] [place] [address] Dr. Artem Rojas HbA1c (Bld) [Mass fraction] 6.1 % Normal 4.5-6.2 [facility] Comment on above: Performed By: #### A1C #### [facility] [address] [place] [address] Dr. Artem Rojas LIPID PROFILEon 07-30-2022 CHOL-HDL RATIO NORM SEE BELOW Normal [facility] Comment on above: Result Comment: 3.3 - 4.4 LOW RISK 4.4 - 7.1 AVERAGE RISK 7.1 - 11.0 MODERATE RISK >11.0 HIGH RISK Performed By: #### C MP, BNP, URIC, TSH, T7, LIPID #### [facility] [address] [place] [address] Dr. Artem Rojas Cholesterol [Mass/Vol] 157 mg/dL Normal <=200 [facility] Comment on above: Performed By: #### CMP, BNP, URIC, TSH, T7, LIPID #### [facility] [address] [place] [address] Dr. Artem Rojas Cholesterol in HDL [Mass/Vol] 51 mg/dL Normal 40-60 [facility] Comment on above: Performed By: #### CMP, BNP, URIC, TSH, T7, LIPID #### [facility] [address] [address] [address] Artem Rojas Cholesterol in LDL [Mass/Vol] 86.6 mg/dL Normal [facility] Comment on above: Performed By: #### CMP, BNP, URIC, TSH, T7, LIPID #### [facility] [address] [address] [address] Artem Rojas Cholesterol.tota l/Cholesterol in HDL [Mass ratio] 3.1 {ratio} Normal [facility] Comment on above: Performed By: #### CMP, BNP, URIC, TSH, T7, LIPID #### [facility] [address] [address] [address] Artem Rojas HDL NORMAL > or = 60 mg/dl - LO W CARDIOVASCULAR RISK <40 mg/dl - HIGH CARDIOVASCULAR RISK Normal [facility] Comment on above: Performed By: #### CMP, BNP, URIC, TSH, T7, LIPID #### [facility] [address] [address] [address] Artem Rojas LDL CALC NORMAL SEE BELOW Normal [facility] Comment on above: Result Comment: <100 mg/dl OPTIMAL 100 - 129 mg/dl NEAR OR ABOVE OPTIMAL 130 - 159 mg/dl BORDERLINE HIGH 160 - 189 mg/dl HIGH >190 mg/dl VERY HIGH Performed By: #### C MP, BNP, URIC, TSH, T7, LIPID #### [facility] [address] [address] [address] Artem Rojas Triglyceride [Mass/Vol] 97 mg/dL Normal <=150 [facility] Comment on above: Performed By: #### CMP, BNP, URIC, TSH, T7, LIPID #### [facility] [address] [address] [address] Artem Rojas VLDL CALC 19.4 mg/dL Normal [facility] Comment on above: Performed By: #### CMP, BNP, URIC, TSH, T7, LIPID #### [facility] [address] [address] [address] Artem Rojas PROF 14(COMP METB)on 023 Albumin [Mass/Vol] 3.5 g/dL Normal 3.4-5.0 [facility] Comment on above: Performed By: #### CMP, BNP, URIC, TSH, T7, LIPID #### [facility] [address] [place] [address] Dr. Artem Rojas Albumin/Globulin [Mass ratio] 1.1 {ratio} Normal [facility] Comment on above: Performed By: #### CMP, BNP, URIC, TSH, T7, LIPID #### [facility] [address] [place] [address] Dr. Artem Rojas ALP [Catalytic activity/Vol] 70 U/L Normal 46-116 [facility] Comment on above: Performed By: #### CMP, BNP, URIC, TSH, T7, LIPID #### [facility] [address] [place] [address] Dr. Artem Rojas ALT [Catalytic activity/Vol] 19 U/L Normal 16-63 [facility] Comment on above: Performed By: #### CMP, BNP, URIC, TSH, T7, LIPID #### [facility] [address] [place] [address] Dr. Artem Rojas Anion gap [Moles/Vol] 11.7 mmol/L Normal [facility] Comment on above: Performed By: #### CMP, BNP, URIC, TSH, T7, LIPID #### [facility] [address] [place] [address] Dr. Artem Rojas AST [Catalytic activity/Vol] 18 U/L Normal 15-37 [facility] Comment on above: Performed By: #### CMP, BNP, URIC, TSH, T7, LIPID #### [facility] [address] [place] [address] Dr. Artem Rojas Bilirubin [Mass/Vol] 0.5 mg/dL Normal 0.2-1.0 [facility] Comment on above: Performed By: #### CMP, BNP, URIC, TSH, T7, LIPID #### [facility] [address] [place] [address] Dr. Artem Rojas Calcium [Mass/Vol] 9.3 mg/dL Normal 8.5-10.1 [facility] Comment on above: Performed By: #### CMP, BNP, URIC, TSH, T7, LIPID #### [facility] [address] [address] [address] Artem Rojas Chloride [Moles/Vol] 105 mmol/L Normal 98-107 [facility] Comment on above: Performed By: #### CMP, BNP, URIC, TSH, T7, LIPID #### [facility] [address] [place] [address] Dr. Artem Rojas CO2 [Moles/Vol] 29.7 mmol/L Normal 21.0-32.0 [facility] Comment on above: Performed By: #### CMP, BNP, URIC, TSH, T7, LIPID #### [facility] [address] [place] [address] Dr. Artem Rojas Creatinine [Mass/Vol] 0.87 mg/dL Normal 0.70-1.30 [facility] Comment on above: Performed By: #### CMP, BNP, URIC, TSH, T7, LIPID #### [facility] [address] [place] [address] Dr. Artem Rojas EGFR-AF MALTESE >60 Normal >=60 [facility] Comment on above: Performed By: #### CMP, BNP, URIC, TSH, T7, LIPID #### [facility] [address] [place] [address] Dr. Artem Rojas EGFR-NON AF MALTESE >60 Normal >=60 [facility] Comment on above: Performed By: #### CMP, BNP, URIC, TSH, T7, LIPID #### [facility] [address] [place] [address] Dr. Artem Rojas Globulin (S) [Mass/Vol] 3.3 g/dL Normal [facility] Comment on above: Performed By: #### CMP, BNP, URIC, TSH, T7, LIPID #### [facility] [address] [place] [address] Dr. Artem Rojas Glucose [Mass/Vol] 118 mg/dL Critically high 74-106 [facility] Comment on above: Performed By: #### CMP, BNP, URIC, TSH, T7, LIPID #### [facility] [address] [place] [address] Dr. Artem Rojas Potassium [Moles/Vol] 4.4 mmol/L Normal 3.5-5.1 [facility] Comment on above: Performed By: #### CMP, BNP, URIC, TSH, T7, LIPID #### [facility] [address] [place] [address] Dr. Artem Rojas Protein [Mass/Vol] 6.8 g/dL Normal 6.4-8.2 [facility] Comment on above: Performed By: #### CMP, BNP, URIC, TSH, T7, LIPID #### [facility] [address] [place] [address] Dr. Artem Rojas Sodium [Moles/Vol] 142 mmol/L Normal 136-145 [facility] Comment on above: Performed By: #### CMP, BNP, URIC, TSH, T7, LIPID #### [facility] [address] [place] [address] Dr. Artem Rojas Urea nitrogen [Mass/Vol] 19.0 mg/dL Critically high 7.0-18.0 [facility] Comment on above: Performed By: #### CMP, BNP, URIC, TSH, T7, LIPID #### [facility] [address] [place] [address] Dr. Artem Rojas Urea nitrogen/Creatin ine [Mass ratio] 21.8 mg/mg Normal [facility] Comment on above: Performed By: #### CMP, BNP, URIC, TSH, T7, LIPID #### [facility] [address] [place] [address] Dr. Artem Rojas TSHon 07-30-2022 TSH 1.773 uIU/mL Normal 0.358-3.740 [facility] Comment on above: Performed By: #### CMP, BNP, URIC, TSH, T7, LIPID #### [facility] [address] [place] [address] Dr. Artem Rojas URIC ACID SERUMon 07-30-2022 Urate [Mass/Vol] 5.8 mg/dL Normal 3.5-7.2 [facility] Comment on above: Performed By: #### CMP, BNP, URIC, TSH, T7, LIPID #### [facility] [address] [place] [address] Dr. Artem Rojas VITAMIN D 25 OHon 07-30-2022 VIT D 25-OH 65.5 ng/mL Normal [facility] Comment on above: Performed By: #### PTT, PT #### [facility] [address] [place] [address] Dr. Artem Rojas VIT D RANGES SEE BELOW Normal [facility] Comment on above: Result Comment: <20 ng/mL Vit D deficien t 20 - <30 ng/mL Vit D insufficient 30 - 100 ng/mL Vit D sufficient >100 ng/mL Potential Toxicity Performed By: #### P TT, PT #### [facility] [address] [place] [address] Dr. Artem Rojas CBC AUTO DIFFon 03-02-2022 BASO # 0.1 103/ul Normal 0.0-0.1 [facility] Comment on above: Performed By: #### PTT, PT #### [facility] [address] [place] [address] Dr. Artme Rojas Basophils/100 WBC (Bld) 0.5 % Normal 0.2-2.0 [facility] Comment on above: Performed By: #### PTT, PT #### [facility] [address] [place] [address] Dr. Artem Rojas EO # 0.0 103/ul Normal 0.0-0.7 [facility] Comment on above: Performed By: #### PTT, PT #### [facility] [address] [place] [address] Dr. Artem Rojas Eosinophils/100 WBC (Bld) 0.1 % Critically low 0.9-7.0 [facility] Comment on above: Performed By: #### PTT, PT #### [facility] [address] [place] [address] Dr. Artem Rojas Erythrocyte distribution width (RBC) [Ratio] 12.9 % Normal 11.0-15.0 [facility] Comment on above: Performed By: #### PTT, PT #### [facility] [address] [place] [address] Dr. Artem Rojas Hematocrit (Bld) [Volume fraction] 39.7 % Critically low 42.0-54.0 [facility] Comment on above: Performed By: #### PTT, PT #### [facility] [address] [place] [address] Dr. Artem Rojas Hemoglobin (Bld) [Mass/Vol] 13.1 g/dL Critically low 14.0-18.0 [facility] Comment on above: Performed By: #### PTT, PT #### [facility] [address] [place] [address] Dr. Artem Rojas IG # 0.05 10e3/ul Critically high 0.00-0.03 [facility] Comment on above: Performed By: #### PTT, PT #### [facility] [address] [place] [address] Dr. Artem Rojas IG % 0.4 % Normal 0.0-0.5 [facility] Comment on above: Performed By: #### PTT, PT #### [facility] [address] [place] [address] Dr. Artem Rojas LYMPH # 0.8 103/ul Critically low 1.2-3.8 [facility] Comment on above: Performed By: #### PTT, PT #### [facility] [address] [place] [address] Dr. Artem Rojas Lymphocytes/100 WBC (Bld) 5.7 % Critically low 20.5-60.0 [facility] Comment on above: Performed By: #### PTT, PT #### [facility] [address] [place] [address] Dr. Artem Rojas MANUAL DIFF REQ NO Normal [facility] Comment on above: Performed By: #### PTT, PT #### [facility] [address] [place] [address] Dr. Artem Rojas MCH (RBC) [Entitic mass] 31.5 pg Normal 25.9-34.0 [facility] Comment on above: Performed By: #### PTT, PT #### [facility] [address] [place] [address] Dr. Artem Rojas MCHC (RBC) [Mass/Vol] 33.0 g/dL Normal 29.9-35.2 [facility] Comment on above: Performed By: #### PTT, PT #### [facility] [address] [place] [address] Dr. Artem Rojas MCV (RBC) [Entitic vol] 95.4 fL Critically high 80.0-94.0 [facility] Comment on above: Performed By: #### PTT, PT #### [facility] [address] [place] [address] Dr. Artem Rojas MONO # 1.0 103/ul Critically high 0.3-0.8 [facility] Comment on above: Performed By: #### PTT, PT #### [facility] [address] [place] [address] Dr. Artem Rojas Monocytes/100 WBC (Bld) 7.4 % Normal 1.7-12.0 [facility] Comment on above: Performed By: #### PTT, PT #### [facility] [address] [place] [address] Dr. Artem Rojas NEUT # 11.4 103/ul Critically high 1.4-6.5 [facility] Comment on above: Performed By: #### PTT, PT #### [facility] [address] [place] [address] Dr. Artem Rojas Neutrophils/100 WBC (Bld) 85.9 % Critically high 43.0-75.0 [facility] Comment on above: Performed By: #### PTT, PT #### [facility] [address] [place] [address] Dr. Artem Rojas Platelet mean volume (Bld) [Entitic vol] 10.8 fL Normal 9.5-13.5 [facility] Comment on above: Performed By: #### PTT, PT #### [facility] [address] [place] [address] Dr. Artem Rojas PLT 164 103/ul Normal 150-450 [facility] Comment on above: Performed By: #### PTT, PT #### [facility] [address] [address] [address] Artem Rojas RBC 4.16 106/ul Critically low 4.70-6.10 [facility] Comment on above: Performed By: #### PTT, PT #### [facility] [address] [address] [address] Artem Rojas WBC 13.2 103/ul Critically high 4.0-11.0 [facility] Comment on above: Performed By: #### PTT, PT #### [facility] [id number] Artem Rojas [address] CSPINE WO CONon [...] WILLIAM RASMUSSEN Date: 2022-03-02 17:51 Normal [facility] CT HEAD WO CONon 03-02-2022 CT [...] NISSA VIGIL Date: 2022-03-02 17:40 Normal [facility] SARS-CoV-2 (COVID-19) RNA MONICA+probe Ql (Unsp spec) Not detected Normal NOT DETECTED [facility] Comment on above: Result Comment: When [...] for this test is supported by the Re[employer] and Human Service's declaration that [...] Performed By: #### P TT, PT #### [facility] [address] [place] [address] Dr. Artem Rojas GASTROCCULTon 03-02-2022 GASTROCCULT Positive Abnormal NEGATIVE [facility] Comment on above: Performed By: #### PTT, PT #### [facility] [address] [place] [address] Dr. Artem Rojas PH GASTRIC 2 Normal [facility] Comment on above: Performed By: #### PTT, PT #### [facility] [address] [place] [address] Dr. Artem Rojas PROF 14(COMP METB)on 022 Albumin [Mass/Vol] 3.6 g/dL Normal 3.4-5.0 [facility] Comment on above: Performed By: #### PTT, PT #### [facility] [address] [place] [address] Dr. Artem Rojas Albumin/Globulin [Mass ratio] 1.3 {ratio} Normal [facility] Comment on above: Performed By: #### PTT, PT #### [facility] [address] [place] [address] Dr. Artem Rojas ALP [Catalytic activity/Vol] 65 U/L Normal 46-116 [facility] Comment on above: Performed By: #### PTT, PT #### [facility] [address] [place] [address] Dr. Artem Rojas ALT [Catalytic activity/Vol] 12 U/L Critically low 16-63 [facility] Comment on above: Performed By: #### PTT, PT #### [facility] [address] [place] [address] Dr. Artem Rojas Anion gap [Moles/Vol] 12.8 mmol/L Normal [facility] Comment on above: Performed By: #### PTT, PT #### [facility] [address] [address] [address] Artem Rojas AST [Catalytic activity/Vol] 15 U/L Normal 15-37 [facility] Comment on above: Performed By: #### PTT, PT #### [facility] [address] [place] [address] Dr. Artem Rojas Bilirubin [Mass/Vol] 1.1 mg/dL Critically high 0.2-1.0 [facility] Comment on above: Performed By: #### PTT, PT #### [facility] [address] [place] [address] Dr. Artem Rojas Calcium [Mass/Vol] 9.0 mg/dL Normal 8.5-10.1 [facility] Comment on above: Performed By: #### PTT, PT #### [facility] [address] [place] [address] Dr. Artem Rojas Chloride [Moles/Vol] 104 mmol/L Normal 98-107 [facility] Comment on above: Performed By: #### PTT, PT #### [facility] [address] [place] [address] Dr. Artem Rojas CO2 [Moles/Vol] 25.8 mmol/L Normal 21.0-32.0 [facility] Comment on above: Performed By: #### PTT, PT #### [facility] [address] [place] [address] Dr. Artem Rojas Creatinine [Mass/Vol] 1.06 mg/dL Normal 0.70-1.30 [facility] Comment on above: Performed By: #### PTT, PT #### [facility] [address] [place] [address] Dr. Artem Rojas EGFR-AF MALTESE >60 Normal >=60 [facility] Comment on above: Performed By: #### PTT, PT #### [facility] [address] [place] [address] Dr. Artem Rojas EGFR-NON AF MALTESE >60 Normal >=60 [facility] Comment on above: Performed By: #### PTT, PT #### [facility] [address] [place] [address] Dr. Artem Rojas Globulin (S) [Mass/Vol] 2.8 g/dL Normal [facility] Comment on above: Performed By: #### PTT, PT #### [facility] [address] [place] [address] Dr. Artem Rojas Glucose [Mass/Vol] 104 mg/dL Normal 74-106 [facility] Comment on above: Performed By: #### PTT, PT #### [facility] [address] [place] [address] Dr. Artem Rojas Potassium [Moles/Vol] 4.6 mmol/L Normal 3.5-5.1 [facility] Comment on above: Performed By: #### PTT, PT #### [facility] [address] [place] [address] Dr. Artem Rojas Protein [Mass/Vol] 6.4 g/dL Normal 6.4-8.2 [facility] Comment on above: Performed By: #### PTT, PT #### [facility] [address] [place] [address] Dr. Artem Rojas Sodium [Moles/Vol] 138 mmol/L Normal 136-145 [facility] Comment on above: Performed By: #### PTT, PT #### [facility] [address] [place] [address] Dr. Artem Rojas Urea nitrogen [Mass/Vol] 13.0 mg/dL Normal 7.0-18.0 [facility] Comment on above: Performed By: #### PTT, PT #### [facility] [address] [place] [address] Dr. Artem Rojas Urea nitrogen/Creatin ine [Mass ratio] 12.3 mg/mg Normal [facility] Comment on above: Performed By: #### PTT, PT #### [facility] [address] [place] [address] Dr. Artem Rojas PROTIMEon 03-02-2022 INR Coag (PPP) [Relative time] 1.23 {INR} Normal [facility] Comment on above: Performed By: #### PTT, PT #### [facility] [address] [place] [address] Dr. Artem Rojas INR GUIDELINES SEE BELOW Normal [facility] Comment on above: Result Comment: DESIRED INR: 2.0 - 3.0 C ONDITIONS NOT LISTED BELOW 2.5 - 3.5 FOR PROSTHETIC HEART VALVE REPLACEMENT 2.5 - 3.5 RECURRENT THROMBOSIS Performed By: #### P TT, PT #### [facility] [address] [place], [place] [address] Dr. Artem Rojas PT Coag (PPP) [Time] 13.1 s Critically high 9.0-11.6 [facility] Comment on above: Performed By: #### PTT, PT #### [facility] [address] [place], [place] [address] Dr. Artem Rojas PTTon 03-02-2022 aPTT Coag (Bld) [Time] 28.5 s Normal 22.3-36.2 [facility] Comment on above: Performed By: #### PTT, PT #### [facility] [address] [place] [address] Dr. Artem Rojas XR KNEE RT 1_2 [...] MATTHEW CHADWICK Date: 2022-03-02 20:49 Normal [facility] OVA AND PARASITE EXAMINATION on 01-18-2022 Ova + Parasite Exam Final report Normal [facility] Comment on above: Result Comment: These results were obtai ricardo using wet preparation(s) and trichrome stained smear. This test does not include testing for Cryptosporidium parvum, Cyclospora, or Microsporidia. Performed By: #### P TT, PT #### [facility] [address] [place] [address] Dr. Artem Rojas Result 1 Comment Normal [facility] Comment on above: Result Comment: No ova, cysts, or parasi alise seen. . One negative specimen does not rule out the possibility of a parasitic infection. Performed By: #### P TT, PT #### [facility] [address] [place] [address] Dr. Artem Rojas GI PANEL (PCR)on 01-14-2022 Adenovirus F 40/41 Not detected Normal NOT DETECTED [facility] Comment on above: Performed By: #### PTT, PT #### [facility] [address] [place] [address] Dr. Artem Rojas Astrovirus Not detected Normal NOT DETECTED [facility] Comment on above: Performed By: #### PTT, PT #### [facility] [address] [place] [address] Dr. Artem Rojas C. Diff toxin A/B Not detected Normal NOT DETECTED [facility] Comment on above: Performed By: #### PTT, PT #### [facility] [address] [place] [address] Dr. Artem Rojas Campylobacter Not detected Normal NOT DETECTED [facility] Comment on above: Performed By: #### PTT, PT #### [facility] [address] [place] [address] Dr. Artem Rojas Cryptosporidium Not detected Normal NOT DETECTED [facility] Comment on above: Performed By: #### PTT, PT #### [facility] [address] [place] [address] Dr. Artem Rojas Cyclos. Cayetanensis Not detected Normal NOT DETECTED [facility] Comment on above: Performed By: #### PTT, PT #### [facility] [address] [place] [address] Dr. Artem Rojas E. Coli O157 Not Applicable Normal Not Applicable [facility] Comment on above: Performed By: #### PTT, PT #### [facility] [address] [place] [address] Dr. Artem Rojas E. histolytica Not detected Normal NOT DETECTED [facility] Comment on above: Performed By: #### PTT, PT #### [facility] [address] [place] [address] Dr. Artem Rojas EAEC Not detected Normal NOT DETECTED [facility] Comment on above: Performed By: #### PTT, PT #### [facility] [address] [place] [address] Dr. Artem Rojas EIEC Not detected Normal NOT DETECTED [facility] Comment on above: Performed By: #### PTT, PT #### [facility] [address] [place] [address] Dr. Artem Rojas EPEC Not detected Normal NOT DETECTED [facility] Comment on above: Performed By: #### PTT, PT #### [facility] [address] [place] [address] Dr. Artem Rojas ETEC Not detected Normal NOT DETECTED [facility] Comment on above: Performed By: #### PTT, PT #### [facility] [address] [place] [address] Dr. Artem Whitt Lamblia Not detected Normal NOT DETECTED [facility] Comment on above: Performed By: #### PTT, PT #### [facility] [address] [place] [address] Dr. Artem TSE CONTROLS PASSED Normal [facility] Comment on above: Performed By: #### PTT, PT #### [facility] [address] [place] [address] Dr. Artem DAVIS [facility] HEADER GI PANEL BACTERIA Normal [facility] Comment on above: Performed By: #### PTT, PT #### [facility] [address] [place] [address] Dr. Artem ARELLANO ECOLI GI PANEL DIARRHEAGEN IC E.COLI / SHIGELLA Normal [facility] Comment on above: Performed By: #### PTT, PT #### [facility] [address] [place] [address] Dr. Artem ARELLANO INFO SEE BELOW Normal [facility] Comment on above: Result Comment: EAEC- Enteroaggregative E. Coli EPEC- Enteropathogenic E. Coli ETEC- Enterotoxigenic E. Coli lt/st STEC- Shigella-like toxin-producing E. Coli stx1/stx2 EIEC- Shigella/Enteroinvasive E. Coli Performed By: #### P TT, PT #### [facility] [address] [place] [address] Dr. Artem ARELLANO PARASITES GI PANEL PARASITES Normal [facility] Comment on above: Performed By: #### PTT, PT #### [facility] [address] [place] [address] Dr. Artem AERLLANO VIRUS GI PANEL VIRUSES Normal [facility] Comment on above: Performed By: #### PTT, PT #### [facility] [address] [place] [address] Dr. Artem Rojas Norovirus GI/GII Not detected Normal NOT DETECTED [facility] Comment on above: Performed By: #### PTT, PT #### [facility] [address] [place] [address] Dr. Artem Rojas P. Shigelloides Not detected Normal NOT DETECTED [facility] Comment on above: Performed By: #### PTT, PT #### [facility] [address] [place] [address] Dr. Artem Rojas Rotavirus A Not detected Normal NOT DETECTED [facility] Comment on above: Performed By: #### PTT, PT #### [facility] [address] [place] [address] Dr. Artem Rojas Salmonella Not detected Normal NOT DETECTED [facility] Comment on above: Performed By: #### PTT, PT #### [facility] [address] [place] [address] Dr. Artem Rojas Sapovirus Not detected Normal NOT DETECTED [facility] Comment on above: Performed By: #### PTT, PT #### [facility] [address] [place] [address] Dr. Artem Rojas STEC Not detected Normal NOT DETECTED [facility] Comment on above: Performed By: #### PTT, PT #### [facility] [address] [place] [address] Dr. Artem Rojas Vibrio Not detected Normal NOT DETECTED [facility] Comment on above: Performed By: #### PTT, PT #### [facility] [address] [address] [address] Artem Rojas Vibrio Cholera Not detected Normal NOT DETECTED [facility] Comment on above: Performed By: #### PTT, PT #### [facility] [address] [place], [place] [address] Dr. Artem Rojas Y. Enterocolitica Not detected Normal NOT DETECTED [facility] Comment on above: Performed By: #### PTT, PT #### [facility] [address] [place], [place] [address] Dr. Artem Rojas Consultation Noteon 06-03-20 Consultation Note [id number]#[id number]:127 Normal [facility] RAD - MISCon 06-03-2021 RAD - MISC [id number]#1.00CD:127 Normal [facility] Glucose Poct Glucometerson 0 01-10-2021 Glucose [Mass/Vol] 108 mg/dL Normal [facility] Comment on above: Result Comment: Random Glucose Reference Range is dependent on time and content of last meal. Glucose of more than 200 mg/dL in a nonstressed, ambulatory subject supports the diagnosis of Diabetes Mellitus. PERFORMED BY: [facility] [address] [address] PATHOLOGIST PROCESS EXCELLENCE MANAGER SARY APARICIO M.D. Performed By: #### G SAMMIE #### Point of Care testing , [facility] 01-10-2021 L Specimen: [id number] Received: 01/10/21 Status: WILFREDO Iglesias Num: [id number] Spec Type: Surgical Subm Dr: Shane Snell MD Tissues: A Colon - Polyp (CECUM) B Colon - Polyp (SIGMOID) Procedures: HE Stain/4, Gross/Micro L4/2 Patient Age/Sex Location Account Attending Physician Desean Landry JR 80/M [id number] Shane Snell MD SPEC NUM: [id number] RECD: 01/10/21 STATUS: WILFREDO MIKE NUM: [id number] MICAH: 01/10/21- [facility] DR: Shane Snell MD ENTERED: 01/10/21 [facility] DR: SPEC TYPE: Surgical DEPT: S ORDERED: [...] findings support the above pathologic diagnosis. Specimen: [id number] Received: 01/10/21 Status: WILFREDO Mike Num: [id number] Spec Type: Surgical Subm Dr: Shane Snell MD Tissues: A Colon - Polyp (CECUM) B Colon - Polyp (SIGMOID) Procedures: HE Stain/4, Gross/Micro L4/2 Patient: Desean Landry JR [id number] (Continued) Specimen: [id number] Received: 01/10/21 (Continued) Signed (signature on file) Randi Ji MD 01/11/21 1809 Specimen: [id number] Received: 01/10/21 Status: WILFREDO Iglesias Num: [id number] Spec Type: Surgical Subm Dr: Shane Snell MD Tissues: A Colon - Polyp (CECUM) B Colon - Polyp (SIGMOID) Procedures: HE Stain/4, Gross/Micro L4/2 Patient: Desean Landry JR [id number] (Continued) Specimen: [id number] Received: 01/10/21 (Continued) CPT Codes 68965?2 Specimen: [id number] Received: 01/10/21 Status: WILFREDO Iglesias Num: [id number] Spec Type: Surgical Subm Dr: Shane Snell MD Tissues: A Colon - Polyp (CECUM) B Colon - Polyp (SIGMOID) Procedures: HE Stain/4, Gross/Micro L4/2 Patient: Desean Landry JR [id number] (Continued) Signed (signature on file) Randi Ji MD 01/11/21 1809 [facility]on 04-13-2018 [facility] TextOctober 3 2018[address] [place], [place] [address]TFAF: Rocky Landry NO.: [id number] OF SERVICE: 04/06/2018Dept. of Pulmonary and Critical Care MedicineDear Mr. Landry,Attached please find a copy of your CAT scan chest report from March.Please contact me if I can contribute further in your health care management.Best regards.Yours sincerely,Cesar Beltran M.D., Ervin.HC:lmEnclosure Normal [facility] CT CHEST WO IVCONon 04-06-20 CT CHEST WO IVCON * * *Final Report* * *DATE OF EXAM: Apr 06 2018 12:50PM [facility] 0541 - CT CHEST WO IVCON [...] any questions regarding this interpretation, please call [phone].If you are unable to reach us at the number above,please feel free to contact [facility] eRadiology at [phone] ACN Normal [facility] PROGRESSon 04-06-2018 Protein mass conc HNO ID: [id number]: Venita Lr: (none)Author Type: (none)Type: Progress NotesFiled: 04/06/2018 12:57 PMNote Text: Radiology Service Progress NotePATIENT NAME: Desean LandryMRN: [id number] OF SERVICE: April 06, 2018TIME: 12:28 PMPATIENT IDENTITY VERIFICATION COMPLETED USING TWO (2) METHODS: Patientconfirmed name verbally and ID band matches..PATIENT GENDER DATA: MalePATIENT RELEVANT IMPLANT DATA REVIEWED: Not ApplicableRADIOLOGY DEPARTMENT: CT; Exam(s) Completed: ChestPERIPHERAL IV DATA: Not applicableSIGNED BY: Venita Lee 2017 12:28 PM Normal [facility] CNOVon 09-10-2017 CNOV Office Visit (PULMMN) SA SHAILA LANDRY ([id number]) 1940 MDate Time Provider Department09/10/17 9:55 AM CESAR BELTRAN During your visit today, we recorded the following information about you: Temperature Pulse Respiration Blood pressure 97.7 degrees 75/minute 18/minute 125/68 Weight Height 90.3 kg 1.753 Ritika Beltran MD 09/10/2017 12:26 PM SignedPULMONARY CLINICPATIENT NAME: Desean LandryMRN: [id number] CARE PHYSICIAN: Diogenes Garcia, [facility] [place] will be sent via [place] mail or [...] No ronchi. No ralesCARDIAC: normal S1 and P4YRLAOFC: Abdomen soft.EXTREMETIES: No deformities. No LE edema. [...] [J98.11] Pleural calcification [J94.8]Order(s):CT CHEST WO IVCON [3168091] Order #: [id number] FUTUREProblem List As Of Date: 09/10/2017(None)Disposition: Return in about 6 months (around 03/13/2018).Follow-up and Disposition History RecordedEncounter Number: [id number] Status:Closed by CESAR BELTRAN MD on 09/10/17 Normal [facility] CT CHEST WO IVCONon 09-11-19 CT CHEST WO IVCON * * *Final Report* * *DATE OF EXAM: Sep 10 2017 9:05AM [facility] [place] IVCON / [...] 6 mm. Three-month imaging follow-up suggested for reevaluation.Trial Court Judge: AMILCAR Transcribe Date/Time: Sep 10 2017 9:58ADictated by : CHRISTY MULTANI MDThis examination was interpreted and the report reviewed and electronically signed by: CHRISTY MULTANI MD on Sep 10 2017 2:48PM [id number] Normal [facility] PROGRESSon 09-10-2017 Protein mass conc HNO ID: [id number]: Cesar Garcia: (none)Author Type: PhysicianType: Progress NotesFiled: 09/10/2017 12:26 PMNote Text:PULMONARY CLINICPATIENT NAME: Desean LandryMRN: [id number] CARE PHYSICIAN: Diogenes Garcia, [facility] [place]munication will be sent via [place] mail or [...] wheezing. No ronchi. NoralesCARDIAC: normal S1 and J2UUCHCHL: Abdomen soft.EXTREMETIES: No deformities. No LE edema. [...] MedicineDATE: September 10, 2017TIME: 9:30 AM Normal [facility] Protein mass conc HNO ID: [id number]: Srinath Purcell CTS (Ct)ervice: RadiologyAuthor Type: Clinical TechnicianType: Progress NotesFiled: 09/10/2017 9:03 AMNote Text: Radiology Service Progress NotePATIENT NAME: Desean LandryMRN: [id number] OF SERVICE: September 10, 2017TIME: 9:03 AMPATIENT IDENTITY VERIFICATION COMPLETED USING TWO (2) METHODS: Patientconfirmed name verbally and ID band matches..PATIENT GENDER DATA: MalePATIENT RELEVANT IMPLANT DATA REVIEWED: YesRADIOLOGY DEPARTMENT: CT; Exam(s) Completed: ChestPERIPHERAL IV DATA: Not applicableSIGNED BY: MANINDER LinSt. [facility] 2017 9:03 AM Normal [facility] HISTORY PHYSICALon HISTORY PHYSICAL HNO ID: [id number] thor: Cesar BeltranService: (none)Author Type: PhysicianType: HANDPFiled: 07/23/2017 5:35 PMNote Text:PULMONARY CONSULTPATIENT NAME: Desean LandryMRN: [id number] FOR CONSULT: Pleural effusionREQUESTING PHYSICIAN: Diogenes Garcia [facility] PHYSICIAN: Diogenes Garcia [facility] [place]munication will be sent via [place] mail or shared electronic medicalrecordsHISTORY OF PRESENT ILLNESS: Mr. 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 Unable to make his own medical decision.He lives by himself but currently admitted at a SNF. He has a legalguardian Blanca Sofia phone # [phone].In June he was found on the floor [...] MedicineDATE: July 23, 2017TIME: 12:12 PM Normal [facility] PROGRESSon 07-23-2017 Protein mass conc HNO ID: [id number]: Colleen Ceballos RtService: (none)Author Type: (none)Type: Progress NotesFiled: 07/23/2017 11:16 AMNote Text: Radiology Service Progress NotePATIENT NAME: Desean LandryMRN: [id number] OF SERVICE: July 23, 2017TIME: 11:16 AMPATIENT IDENTITY VERIFICATION COMPLETED USING TWO (2) METHODS: Patientconfirmed name verbally and Date of .PATIENT GENDER DATA: MalePATIENT RELEVANT IMPLANT DATA REVIEWED: Not ApplicableRADIOLOGY DEPARTMENT: General X-ray: Exam(s) Completed: Chest X-RayPERIPHERAL IV DATA: Not applicableSIGNED BY: Colleen Ceballos RtFebruary 2017 11:16 AM Normal [facility] XR CHEST 2V FRONTAL/LATon XR CHEST [...] ARMENTA MD on Jul 23 2017 3:24PM [id number] Normal [facility] HOSPon 07-21-2017 HOSP Patient:Desean Landry MRN: [...] Radiology Service Progress NotePATIENT NAME: Desean LandryMRN: [id number] OF SERVICE: July 23, 2017TIME: 11:16 AMPATIENT [...] RN 07/22/2017 10:35 AM Signed07/22/2017: Navigator contacted [facility] ([phone]) toobtain recent labs. Principal Software Architect will fax labs and medication list. Craig also have a copies of this sent with him to his appointments. Normal [facility] CNPNon 07-16-2017 CNPN Telephone (PULMMN) SA SHAILA LANDRY ([id number]) 1940 MDate Time Provider Department07/16/17 CESAR BELTRAN During your visit today, we recorded the following information about you:Kristie Vallejo 07/16/2017 2:35 PM Signedcxr report to DIRECTOR MEDICAL ECONOMICS.Italo Mora CNP 07/17/2017 12:47 PM SignedCXR 07/13/2017StableAllergies As of Date: 07/16/2017(No Known Allergies)Date Reviewed: 07/14/2017Reviewed by: Kim Walker (Fel) - Fully AssessedReason for Visit: Received Outside Medical Records [[id number]]Problem List As Of Date: 07/16/2017(None) Status:Closed by KRISTIE ANDRADE on 07/16/17 Normal [facility] BASIC METABOLIC PANELon - Calcium 8.5 mg/dL Low 8.6-10.3 [facility] Comment on above: Order Comment: No: Do not add to previou s draw Performed By: #### 4 1000, 25586, 02739, 72313, 56490 ####[facility] [place] [address], [facility] Chloride 104 mmol/L Normal 98-107 [facility] Comment on above: Order Comment: No: Do not add to previou s draw Performed By: #### 4 1000, 96797, 59254, 23007, 12668 ####[facility] [place] [address], [facility] CO2 30 mmol/L Normal 21-31 [facility] Comment on above: Order Comment: No: Do not add to previou s draw Performed By: #### 4 1000, 55706, 14377, 07087, 50076 ####[facility] [facility] Creatinine 0.94 mg/dL Normal 0.70-1.30 [facility] Comment on above: Order Comment: No: Do not add to previou s draw Performed By: #### 4 1000, 05477, 82912, 77451, 01683 ####[facility] eGFR (black) mL/min/{1.73_m2} Normal >60 [facility] Comment on above: Order Comment: No: Do not add to previou s draw Result Comment: Calc ulation may not be valid for patients over 70 years Performed By: #### 4 1000, 21384, 08795, 64395, 62070 ####[facility] eGFR (non-black) mL/min/{1.73_m2} Normal >60 [facility] Comment on above: Order Comment: No: Do not add to previou s draw Result Comment: Calc ulation may not be valid for patients over 70 years Performed By: #### 4 1000, 59538, 38197, 78699, 21300 ####[facility] [place] [address], [facility] Glucose mass conc 98 mg/dL Normal 70-100 [facility] Comment on above: Order Comment: No: Do not add to previou s draw Performed By: #### 4 1000, 36575, 41358, 90139, 73290 ####[facility] Potassium molar conc 4.3 mmol/L Normal 3.5-5.1 [facility] Comment on above: Order Comment: No: Do not add to previou s draw Performed By: #### 4 1000, 53820, 92790, 69289, 33476 ####[facility] Sodium 141 mmol/L Normal 136-145 [facility] Comment on above: Order Comment: No: Do not add to previou s draw Performed By: #### 4 1000, 96142, 47519, 33333, 39790 ####[facility] Urea nitrogen 17 mg/dL Normal 7-25 [facility] Comment on above: Order Comment: No: Do not add to previou s draw Performed By: #### 4 1000, 54238, 76074, 02465, 23436 ####[facility] CBC W/DIFFon 06-20-2017 Basophils Auto #/vol (Bld) 0.5 % Normal 0.0-2.0 [facility] Comment on above: Performed By: #### 82601, 24116, 70195, 18372, 65388 ####[facility] Eosinophils/100 leukocytes 3.6 % Normal 0.0-5.0 [facility] Comment on above: Performed By: #### 54359, 62170, 78620, 05876, 92748 ####[facility] Erythrocyte distribution width Auto Ratio (RBC) 14.2 % Normal 11.5-16.9 [facility] Comment on above: Performed By: #### 16993, 04226, 48207, 78610, 43540 ####[facility] Erythrocytes (RBC) 4.19 mill/mm3 Low 4.30-5.90 [facility] Comment on above: Performed By: #### 00675, 30108, 51579, 16516, 50752 ####[facility] Hematocrit (HCT) 39.9 % Normal 39.0-55.0 [facility] Comment on above: Performed By: #### 81877, 23937, 41625, 93515, 87235 ####[facility] Hemoglobin mass conc (Bld) 13.6 g/dL Low 13.9-16.3 [facility] Comment on above: Performed By: #### 83739, 85556, 21116, 48137, 88021 ####[facility]3000 [facility].[address] Lymphocytes/100 leukocytes 15.7 % Low 20.0-40.0 [facility] Comment on above: Performed By: #### 85509, 06244, 25117, 40678, 32666 ####[facility] MCH 32.4 pg High 24.0-32.0 [facility] Comment on above: Performed By: #### 99195, 84082, 09743, 01856, 68007 ####[facility] [place] [address], [facility] MCHC mass conc (RBC) 34.0 g/dL Normal 32.0-36.0 [facility] Comment on above: Performed By: #### 90269, 32276, 64392, 64616, 81069 ####[facility] [place] [address], [facility] MCV 95.3 fL Normal 80.0-100.0 [facility] Comment on above: Performed By: #### 76444, 79329, 23418, 87633, 70327 ####[facility] [place] [address], [facility] METHOD Normal RBC Morphology Normal [facility] Comment on above: Performed By: #### 30583, 28759, 21534, 91748, 64892 ####[facility] [place] [address], [facility] MONOS 9.9 % High 2-8 [facility] Comment on above: Performed By: #### 36208, 16932, 15238, 05822, 02110 ####[facility] [place] [address], [facility] Neutrophils/100 leukocytes 70.3 % High 50-70 [facility] Comment on above: Performed By: #### 51429, 21469, 16042, 18198, 65019 ####[facility] [place] [address], [facility] PLAT CNT 193 Thou/mm3 Normal 100-400 [facility] Comment on above: Performed By: #### 69704, 93676, 38571, 91835, 80765 ####[facility] [place] [address], [facility] WBC (Leukocytes) 8.7 Thou/mm3 Normal 4.0-10.0 [facility] Comment on above: Performed By: #### 75000, 04899, 35685, 04168, 62207 ####[facility] [place] [address], [facility] Discharge Summaryon 06-20-19 18 Discharge Summary [id number] Admitted: 06/13/2017 Discharged: 06/20/2017 Date of : 1940 Physician: Diogenes Henry M.D. DISCHARGE SUMMARYPRIMARY DIAGNOSIS: Rhabdomyolysis secondary to prolonged immobilization.SECONDARY DIAGNOSES:1. History of atrial fibrillation.2. Right sided Posterior Calcified pleural plaques.3. Right-sided loculated pleural effusion.CONSULTS: CT Surgery, Pulmonary.PROCEDURES: None.SUMMARY OF HOSPITAL COURSE: Mr. Landry is a 76-year-old male, who presentedto [facility] ED with complaints of being found [...] EMS was contacted and brought the patient [facility]. Initial workup was notable for severe rhabdomyolysis,and the patient was transferred to [facility]. He has a past medical historysignificant [...] not have a biopsy performed whilehospitalized at [facility].His CK and myoglobin continue to trend downward, and he was deemed stableat the time of discharge.He will need to follow up with Dr. Beltran at [facility] for continuedmanagement of his pleural [...] continueto follow up with Dr. Beltran at [facility] for continued management ofthe pleural [...] 06/19/2017/05:47 P/Jarad Ayon, MDDate Trans: 06/20/2017 04:29 P/rasheedaoDN_JN:[id number]: Diogenes Garcia M.D. [address] [place] [address] Normal [facility] MAGNESIUM BLOODon 06-20-2017 Magnesium 2.0 mg/dL Normal 1.9-2.7 [facility] Comment on above: Order Comment: No: Do not add to previou s draw Performed By: #### 4 1000, 67982, 49291, 32356, 19950 ####[facility] [place] [address], [facility] PHOSPHORUS BLOODon 8 Phosphate 3.5 mg/dL Normal 2.5-5.0 [facility] Comment on above: Order Comment: No: Do not add to previou s draw Performed By: #### 4 1000, 44506, 93373, 82086, 33487 ####[facility], [place] [address] [place] [address] BASIC METABOLIC PANELon Calcium 8.5 mg/dL Low 8.6-10.3 [facility] Comment on above: Order Comment: No: Do not add to previou s draw Performed By: #### 4 1000, 41096, 40730, 32233, 95763 ####[facility] [place] [address], [facility] Chloride 105 mmol/L Normal 98-107 [facility] Comment on above: Order Comment: No: Do not add to previou s draw Performed By: #### 4 1000, 43147, 31678, 16768, 44898 ####[facility] [place] [address], [facility] CO2 26 mmol/L Normal 21-31 [facility] Comment on above: Order Comment: No: Do not add to previou s draw Performed By: #### 4 1000, 51987, 41979, 20106, 86595 ####[facility] [place] [address], [facility] Creatinine 0.95 mg/dL Normal 0.70-1.30 [facility] Comment on above: Order Comment: No: Do not add to previou s draw Performed By: #### 4 1000, 17867, 33470, 21489, 78289 ####[facility] eGFR (black) mL/min/{1.73_m2} Normal >60 [facility] Comment on above: Order Comment: No: Do not add to previou s draw Result Comment: Calc ulation may not be valid for patients over 70 years Performed By: #### 4 1000, 13195, 35878, 98744, 62600 ####[facility] eGFR (non-black) mL/min/{1.73_m2} Normal >60 [facility] Comment on above: Order Comment: No: Do not add to previou s draw Result Comment: Calc ulation may not be valid for patients over 70 years Performed By: #### 4 1000, 85694, 07753, 25085, 20477 ####[facility] [place] [address], [facility] Glucose mass conc 102 mg/dL High 70-100 [facility] Comment on above: Order Comment: No: Do not add to previou s draw Performed By: #### 4 1000, 45613, 57334, 36131, 00471 ####[facility] [place] [address], [facility] Potassium molar conc 3.7 mmol/L Normal 3.5-5.1 [facility] Comment on above: Order Comment: No: Do not add to previou s draw Performed By: #### 4 1000, 06152, 75602, 07151, 55475 ####[facility] [place] [address], [facility] Sodium 139 mmol/L Normal 136-145 [facility] Comment on above: Order Comment: No: Do not add to previou s draw Performed By: #### 4 1000, 15996, 59901, 15370, 93207 ####[facility] Urea nitrogen 17 mg/dL Normal 7-25 [facility] Comment on above: Order Comment: No: Do not add to previou s draw Performed By: #### 4 1000, 45936, 85954, 25982, 52258 ####[facility] CBC W/DIFFon 06-19-2017 Basophils Auto #/vol (Bld) 0.5 % Normal 0.0-2.0 [facility] Comment on above: Order Comment: No: Do not add to previou s draw Performed By: #### 4 1000, 13236, 88888, 62395, 40821 ####[facility] Eosinophils/100 leukocytes 1.0 % Normal 0.0-5.0 [facility] Comment on above: Order Comment: No: Do not add to previou s draw Performed By: #### 4 1000, 74666, 32571, 00762, 53495 ####[facility] Erythrocyte distribution width Auto Ratio (RBC) 13.7 % Normal 11.5-16.9 [facility] Comment on above: Order Comment: No: Do not add to previou s draw Performed By: #### 4 1000, 66439, 73742, 60787, 40219 ####[facility] Erythrocytes (RBC) 4.33 mill/mm3 Normal 4.30-5.90 [facility] Comment on above: Order Comment: No: Do not add to previou s draw Performed By: #### 4 1000, 74374, 36560, 02148, 27139 ####[facility] Hematocrit (HCT) 41.5 % Normal 39.0-55.0 [facility] Comment on above: Order Comment: No: Do not add to previou s draw Performed By: #### 4 1000, 39942, 37461, 85309, 06572 ####[facility] Hemoglobin mass conc (Bld) 14.1 g/dL Normal 13.9-16.3 [facility] Comment on above: Order Comment: No: Do not add to previou s draw Performed By: #### 4 1000, 28119, 06586, 12329, 28126 ####[facility] Lymphocytes/100 leukocytes 11.5 % Low 20.0-40.0 [facility] Comment on above: Order Comment: No: Do not add to previou s draw Performed By: #### 4 1000, 83275, 72468, 67195, 83777 ####[facility] MCH 32.7 pg High 24.0-32.0 [facility] Comment on above: Order Comment: No: Do not add to previou s draw Performed By: #### 4 1000, 92020, 17710, 74203, 20701 ####[facility] MCHC mass conc (RBC) 34.1 g/dL Normal 32.0-36.0 [facility] Comment on above: Order Comment: No: Do not add to previou s draw Performed By: #### 4 1000, 59163, 84670, 55367, 63984 ####[facility] MCV 95.9 fL Normal 80.0-100.0 [facility] Comment on above: Order Comment: No: Do not add to previou s draw Performed By: #### 4 1000, 41219, 10139, 75671, 12792 ####[facility] [place] [address], [facility] METHOD Normal RBC Morphology Normal [facility] Comment on above: Order Comment: No: Do not add to previou s draw Performed By: #### 4 1000, 59381, 27147, 64016, 70798 ####[facility] [place] [address], [facility] MONOS 11.9 % High 2-8 [facility] Comment on above: Order Comment: No: Do not add to previou s draw Performed By: #### 4 1000, 99843, 80352, 66689, 45867 ####[facility] [place] [address], [facility] Neutrophils/100 leukocytes 75.1 % High 50-70 [facility] Comment on above: Order Comment: No: Do not add to previou s draw Performed By: #### 4 1000, 20424, 66672, 06656, 32445 ####[facility] PLAT CNT 192 Thou/mm3 Normal 100-400 [facility] Comment on above: Order Comment: No: Do not add to previou s draw Performed By: #### 4 1000, 66926, 36117, 63665, 66968 ####[facility] WBC (Leukocytes) 10.7 Thou/mm3 High 4.0-10.0 [facility] Comment on above: Order Comment: No: Do not add to previou s draw Performed By: #### 4 1000, 77283, 02658, 31143, 31326 ####[facility] CPKon 06-19-2017 Creatine kinase (CK) 252 U/L High 30-223 [facility] Comment on above: Performed By: #### 50048, 61242, 56853, 70774, 46659 ####[facility] [place] [address], [facility] MAGNESIUM BLOODon 06-19-2017 Magnesium 2.0 mg/dL Normal 1.9-2.7 [facility] Comment on above: Order Comment: No: Do not add to previou s draw Performed By: #### 4 1000, 83975, 13512, 36571, 82306 ####[facility] [place] [address], [facility] MYOGLOBINon 06-19-2017 Myoglobin 213 ng/mL Critically high 0-90 [facility] Comment on above: Result Comment: A DOUBLING OF VALUES FRO M SERIAL BLOOD COLLECTIONS(1 - 2 HOURS APART) IS MORE INDICATIVE OF A M.I.THAN THE ABSOLUTE VALUE. Performed By: #### 4 1000, 39833, 63447, 02036, 01045 ####[facility] [place] [address], [facility] PHOSPHORUS BLOODon 8 Phosphate 2.7 mg/dL Normal 2.5-5.0 [facility] Comment on above: Order Comment: No: Do not add to previou s draw Performed By: #### 4 1000, 72496, 54433, 72934, 49927 ####[facility] [place] [address], [facility] ALBUMIN BLOODon 06-18-2017 Albumin 2.6 g/dL Low 3.5-5.7 [facility] Comment on above: Performed By: #### 46784, 52706, 27962, 64995, 57090 ####[facility] [place] [address], [facility] BASIC METABOLIC PANELon Calcium 8.4 mg/dL Low 8.6-10.3 [facility] Comment on above: Order Comment: No: Do not add to previou s draw Performed By: #### 5 0608 ####[facility] [place] [address], [facility] Chloride 106 mmol/L Normal 98-107 [facility] Comment on above: Order Comment: No: Do not add to previou s draw Performed By: #### 5 0608 ####[facility] [place] [address], [facility] CO2 25 mmol/L Normal 21-31 [facility] Comment on above: Order Comment: No: Do not add to previou s draw Performed By: #### 5 0608 ####[facility] [place] [address], [facility] Creatinine 0.93 mg/dL Normal 0.70-1.30 [facility] Comment on above: Order Comment: No: Do not add to previou s draw Performed By: #### 5 0608 ####[facility] [place] [address], [facility] eGFR (black) mL/min/{1.73_m2} Normal >60 [facility] Comment on above: Order Comment: No: Do not add to previou s draw Result Comment: Calc ulation may not be valid for patients over 70 years Performed By: #### 5 0608 ####[facility] [facility] [place] [address], [facility] eGFR (non-black) mL/min/{1.73_m2} Normal >60 [facility] Comment on above: Order Comment: No: Do not add to previou s draw Result Comment: Calc ulation may not be valid for patients over 70 years Performed By: #### 5 0608 ####[facility] [place] [address], [facility] Glucose mass conc 106 mg/dL High 70-100 [facility] Comment on above: Order Comment: No: Do not add to previou s draw Performed By: #### 5 0608 ####[facility] Potassium molar conc 3.4 mmol/L Low 3.5-5.1 [facility] Comment on above: Order Comment: No: Do not add to previou s draw Performed By: #### 5 0608 ####[place] [address] Sodium 137 mmol/L Normal 136-145 [facility] Comment on above: Order Comment: No: Do not add to previou s draw Performed By: #### 5 0608 ####[address] Urea nitrogen 21 mg/dL Normal 7-25 [facility] Comment on above: Order Comment: No: Do not add to previou s draw Performed By: #### 5 0608 ####[place] [address] [facility] CBC W/DIFFon 06-18-2017 Basophils Auto #/vol (Bld) 0.9 % Normal 0.0-2.0 [facility] Comment on above: Order Comment: No: Do not add to previou s draw Performed By: #### 5 0608 ####[address] Eosinophils/100 leukocytes 2.3 % Normal 0.0-5.0 [facility] Comment on above: Order Comment: No: Do not add to previou s draw Performed By: #### 5 0608 ####[address] Erythrocyte distribution width Auto Ratio (RBC) 13.6 % Normal 11.5-16.9 [facility] Comment on above: Order Comment: No: Do not add to previou s draw Performed By: #### 5 0608 ####[facility] Erythrocytes (RBC) 4.37 mill/mm3 Normal 4.30-5.90 [facility] Comment on above: Order Comment: No: Do not add to previou s draw Performed By: #### 5 0608 ####[facility] Hematocrit (HCT) 42.0 % Normal 39.0-55.0 [facility] Comment on above: Order Comment: No: Do not add to previou s draw Performed By: #### 5 0608 ####[facility] Hemoglobin mass conc (Bld) 14.2 g/dL Normal 13.9-16.3 [facility] Comment on above: Order Comment: No: Do not add to previou s draw Performed By: #### 5 0608 ####[facility] Lymphocytes/100 leukocytes 15.2 % Low 20.0-40.0 [facility] Comment on above: Order Comment: No: Do not add to previou s draw Performed By: #### 5 0608 ####[facility] MCH 32.5 pg High 24.0-32.0 [facility] Comment on above: Order Comment: No: Do not add to previou s draw Performed By: #### 5 0608 ####[facility] [place] [address], [facility] MCHC mass conc (RBC) 33.8 g/dL Normal 32.0-36.0 [facility] Comment on above: Order Comment: No: Do not add to previou s draw Performed By: #### 5 0608 ####[facility] [place] [address], [facility] MCV 96.1 fL Normal 80.0-100.0 [facility] Comment on above: Order Comment: No: Do not add to previou s draw Performed By: #### 5 0608 ####[facility] [place] [address], [facility] METHOD Normal RBC Morphology Normal [facility] Comment on above: Order Comment: No: Do not add to previou s draw Performed By: #### 5 0608 ####[facility]3000 [facility].[address] MONOS 11.8 % High 2-8 [facility] Comment on above: Order Comment: No: Do not add to previou s draw Performed By: #### 5 0608 ####[facility]3000 [facility] [place] [address], [facility] Neutrophils/100 leukocytes 69.8 % Normal 50-70 [facility] Comment on above: Order Comment: No: Do not add to previou s draw Performed By: #### 5 0608 ####[facility]3000 [facility].[address] PLAT CNT 168 Thou/mm3 Normal 100-400 [facility] Comment on above: Order Comment: No: Do not add to previou s draw Performed By: #### 5 0608 ####[facility]3000 [facility].[address] WBC (Leukocytes) 10.8 Thou/mm3 High 4.0-10.0 [facility] Comment on above: Order Comment: No: Do not add to previou s draw Performed By: #### 5 0608 ####[facility]3000 [facility].[address] CPKon 06-18-2017 Creatine kinase (CK) 586 U/L High 30-223 [facility] Comment on above: Performed By: #### 63274, 50471, 11435, 55091, 35843 ####[facility] [place] [address], [facility] MAGNESIUM BLOODon 06-18-2017 Magnesium 1.9 mg/dL Normal 1.9-2.7 [facility] Comment on above: Order Comment: No: Do not add to previou s draw Performed By: #### 5 0608 ####[facility] [place] [address], [facility] MYOGLOBINon 06-18-2017 Myoglobin 353 ng/mL Critically high 0-90 [facility] Comment on above: Result Comment: A DOUBLING OF VALUES FRO M SERIAL BLOOD COLLECTIONS(1 - 2 HOURS APART) IS MORE INDICATIVE OF A M.I.THAN THE ABSOLUTE VALUE. Performed By: #### 4 1000, 30211, 99332, 28546, 37160 ####[facility] [place] [address], [facility] PHOSPHORUS BLOODon 8 Phosphate 3.7 mg/dL Normal 2.5-5.0 [facility] Comment on above: Order Comment: No: Do not add to previou s draw Performed By: #### 5 0608 ####[facility] [place] [address], [facility] BASIC METABOLIC PANELon Calcium 8.4 mg/dL Low 8.6-10.3 [facility] Comment on above: Order Comment: No: Do not add to previou s draw Performed By: #### 5 0608 ####[facility] [place] [address], [facility] Chloride 110 mmol/L High 98-107 [facility] Comment on above: Order Comment: No: Do not add to previou s draw Performed By: #### 5 0608 ####[facility] [place] [address], [facility] CO2 25 mmol/L Normal 21-31 [facility] Comment on above: Order Comment: No: Do not add to previou s draw Performed By: #### 5 0608 ####[facility] [place] [address], [facility] Creatinine 0.95 mg/dL Normal 0.70-1.30 [facility] Comment on above: Order Comment: No: Do not add to previou s draw Performed By: #### 5 0608 ####[facility] eGFR (black) mL/min/{1.73_m2} Normal >60 [facility] Comment on above: Order Comment: No: Do not add to previou s draw Result Comment: Calc ulation may not be valid for patients over 70 years Performed By: #### 5 0608 ####[facility] eGFR (non-black) mL/min/{1.73_m2} Normal >60 [facility] Comment on above: Order Comment: No: Do not add to previou s draw Result Comment: Calc ulation may not be valid for patients over 70 years Performed By: #### 5 0608 ####[facility] [place] [address], [facility] Glucose mass conc 107 mg/dL High 70-100 [facility] Comment on above: Order Comment: No: Do not add to previou s draw Performed By: #### 5 0608 ####[facility] [place] [address], [facility] Potassium molar conc 3.5 mmol/L Normal 3.5-5.1 [facility] Comment on above: Order Comment: No: Do not add to previou s draw Performed By: #### 5 0608 ####[facility] [place] [address], [facility] Sodium 141 mmol/L Normal 136-145 [facility] Comment on above: Order Comment: No: Do not add to previou s draw Performed By: #### 5 0608 ####[facility] Urea nitrogen 23 mg/dL Normal 7-25 [facility] Comment on above: Order Comment: No: Do not add to previou s draw Performed By: #### 5 0608 ####[facility] CBC COMPLETE BLOOD COUNTon 0 - Erythrocyte distribution width Auto Ratio (RBC) 13.7 % Normal 11.5-16.9 [facility] Comment on above: Order Comment: No: Do not add to previou s draw Performed By: #### 5 0608 ####[place] [address] [facility].[address] Erythrocytes (RBC) 4.45 mill/mm3 Normal 4.30-5.90 [facility] Comment on above: Order Comment: No: Do not add to previou s draw Performed By: #### 5 0608 ####[facility] Hematocrit (HCT) 42.9 % Normal 39.0-55.0 [facility] Comment on above: Order Comment: No: Do not add to previou s draw Performed By: #### 5 0608 ####[facility] Hemoglobin mass conc (Bld) 14.3 g/dL Normal 13.9-16.3 [facility] Comment on above: Order Comment: No: Do not add to previou s draw Performed By: #### 5 0608 ####[facility] [place] [address], [facility] MCH 32.1 pg High 24.0-32.0 [facility] Comment on above: Order Comment: No: Do not add to previou s draw Performed By: #### 5 0608 ####[facility] MCHC mass conc (RBC) 33.3 g/dL Normal 32.0-36.0 [facility] Comment on above: Order Comment: No: Do not add to previou s draw Performed By: #### 5 0608 ####[facility] MCV 96.3 fL Normal 80.0-100.0 [facility] Comment on above: Order Comment: No: Do not add to previou s draw Performed By: #### 5 0608 ####[facility] PLAT CNT 138 Thou/mm3 Normal 100-400 [facility] Comment on above: Order Comment: No: Do not add to previou s draw Performed By: #### 5 0608 ####[facility] WBC (Leukocytes) 10.7 Thou/mm3 High 4.0-10.0 [facility] Comment on above: Order Comment: No: Do not add to previou s draw Performed By: #### 5 0608 ####[facility] MYOGLOBINon 06-17-2017 Myoglobin 700 ng/mL Critically high 0-90 [facility] Comment on above: Result Comment: A DOUBLING OF VALUES FRO M SERIAL BLOOD COLLECTIONS(1 - 2 HOURS APART) IS MORE INDICATIVE OF A M.I.THAN THE ABSOLUTE VALUE. Performed By: #### 5 0608 ####[facility] LUMBAR SPINE WO CONTRA STon 06-16-[address] LUMBAR SPINE WO CONTRAST [facility] [address] [place] [address] Patient Name: DESEAN LANDRY : 1940ex: MAge: Race: WhiteMRN: [id number]. Location: [id number] Status: IVisit #: [id number] Date: 06/16/2017 10:45:00 AMCompleted Date: 06/16/2017 11:31 AMRequesting Provider: NADEEN SALCEDO Attending Provider: NADEEN SALCEDO Report Copy To: Signs & Symptoms: Back Pain (specify level)History: Patient history not availableComments: R/O Fractures, If Other selected, state reason for examExam: 3D CT LUMBAR SPINE WO CONTRASTAccession #: [id number] 3D CT LUMBAR SPINE WO CONTRAST 06/16/2017 [...] findings. Electronically signed by:Srinath Meyer. Transcribed by: [email or web address], User Resident: PAOLA RILEYElectronically Signed by: SRINATH MEYER @ 06/16/2017 12:13 PMI personally read this/these film(s) with this resident Normal [facility] Comment on above: Order Comment: No: Do not add to previou s draw 3D CT [facility] THORACIC SPINE WO CONTRAST [facility] [address] [place] [address] Patient Name: DESEAN LANDRY : 1940ex: MAge: Race: WhiteMRN: [id number]. Location: [id number] Status: IVisit #: [id number] Date: 06/16/2017 10:45:00 AMCompleted Date: 06/16/2017 11:32 AMRequesting Provider: NADEEN SALCEDO Attending Provider: NADEEN SALCEDO Report Copy To: Signs & Symptoms: Back Pain (specify level)History: Patient history not availableComments: R/O Fractures, History of Fall and c/o Back Pain. Rule out fractureExam: 3D CT THORACIC SPINE WO CONTRASTAccession #: [id number] 3D CT THORACIC SPINE WO CONTRAST 06/16/2017 [...] findings. Electronically signed by:Srinath Meyer. Transcribed by: [email or web address], User Resident: CAN DAVISElectronically Signed by: SRINATH MEYER @ 06/16/2017 12:03 PMI personally read this/these film(s) with this resident Normal [facility] Comment on above: Order Comment: No: Do not add to previou s draw BASIC METABOLIC PANELon Calcium 7.9 mg/dL Low 8.6-10.3 [facility] Comment on above: Order Comment: No: Do not add to previou s draw Performed By: #### 0 0071, 93389 ####[facility] [place] [address], [facility] Chloride 112 mmol/L High 98-107 [facility] Comment on above: Order Comment: No: Do not add to previou s draw Performed By: #### 0 0071, 28358 ####[facility] [place] [address], [facility] CO2 22 mmol/L Normal 21-31 [facility] Comment on above: Order Comment: No: Do not add to previou s draw Performed By: #### 0 0071, 27759 ####[facility] [place] [address], [facility] Creatinine 1.05 mg/dL Normal 0.70-1.30 [facility] Comment on above: Order Comment: No: Do not add to previou s draw Performed By: #### 0 0071, 59610 ####[facility] [place] [address], [facility] eGFR (black) mL/min/{1.73_m2} Normal >60 [facility] Comment on above: Order Comment: No: Do not add to previou s draw Result Comment: Calc ulation may not be valid for patients over 70 years Performed By: #### 0 0071, 53666 ####[facility] [place] [address], [facility] eGFR (non-black) mL/min/{1.73_m2} Normal >60 [facility] Comment on above: Order Comment: No: Do not add to previou s draw Result Comment: Calc ulation may not be valid for patients over 70 years Performed By: #### 0 0071, 91657 ####[facility] [place] [address], [facility] Glucose mass conc 102 mg/dL High 70-100 [facility] Comment on above: Order Comment: No: Do not add to previou s draw Performed By: #### 0 0071, 31658 ####[facility] [place] [address], [facility] Potassium molar conc 4.0 mmol/L Normal 3.5-5.1 [facility] Comment on above: Order Comment: No: Do not add to previou s draw Performed By: #### 0 0071, 70077 ####[facility] [place] [address], [facility] Sodium 139 mmol/L Normal 136-145 [facility] Comment on above: Order Comment: No: Do not add to previou s draw Performed By: #### 0 0071, 59349 ####[facility] [place] [address], [facility] Urea nitrogen 20 mg/dL Normal 7-25 [facility] Comment on above: Order Comment: No: Do not add to previou s draw Performed By: #### 0 0071, 70876 ####[facility] BNP (B-TYPE NATRIURETIC PEPT DEANNE)on 06-16-2017 BNP 1298 pg/mL High 0-100 [facility] Comment on above: Order Comment: No: Do not add to previou s draw Result Comment: Give n the appropriate clinical setting a BNP result of >100 pg/mLindicates congestive heart failure. Performed By: #### 5 0608 ####[facility] [place] [address], [facility] CBC COMPLETE BLOOD COUNTon 0 06-16-2017 Erythrocyte distribution width Auto Ratio (RBC) 13.7 % Normal 11.5-16.9 [facility] Comment on above: Order Comment: No: Do not add to previou s draw Performed By: #### 0 0071, 27967 ####[facility]3000 [facility].[address] Erythrocytes (RBC) 4.24 mill/mm3 Low 4.30-5.90 [facility] Comment on above: Order Comment: No: Do not add to previou s draw Performed By: #### 0 0071, 59490 ####[facility]3000 [facility].[address] Hematocrit (HCT) 40.7 % Normal 39.0-55.0 [facility] Comment on above: Order Comment: No: Do not add to previou s draw Performed By: #### 0 0071, 84322 ####[facility]3000 [facility].[address] Hemoglobin mass conc (Bld) 13.6 g/dL Low 13.9-16.3 [facility] Comment on above: Order Comment: No: Do not add to previou s draw Performed By: #### 0 0071, 42939 ####[facility]3000 [facility].[address] MCH 32.1 pg High 24.0-32.0 [facility] Comment on above: Order Comment: No: Do not add to previou s draw Performed By: #### 0 0071, 21753 ####[facility]3000 [facility].[address] MCHC mass conc (RBC) 33.4 g/dL Normal 32.0-36.0 [facility] Comment on above: Order Comment: No: Do not add to previou s draw Performed By: #### 0 0071, 76529 ####[place] [address] [place] [address], [facility] MCV 96.1 fL Normal 80.0-100.0 [facility] Comment on above: Order Comment: No: Do not add to previou s draw Performed By: #### 0 0071, 98958 ####[facility]3000 [facility] [place] [address], [facility] PLAT CNT 120 Thou/mm3 Normal 100-400 [facility] Comment on above: Order Comment: No: Do not add to previou s draw Performed By: #### 0 0071, 11398 ####[facility] WBC (Leukocytes) 10.3 Thou/mm3 High 4.0-10.0 [facility] Comment on above: Order Comment: No: Do not add to previou s draw Performed By: #### 0 0071, 93051 ####[address] CPKon 06-16-2017 Creatine kinase (CK) 2950 U/L Critically high 30-223 [facility] Comment on above: Performed By: #### 14552, 31080 ####[address] CR-PORTABLE CHEST 1 VIEW IMP Emeli 06-16-2017 CR-PORTABLE CHEST 1 VIEW IMPORT Images were obtained outside of [facility] [id number] Normal [facility] CT CHEST WO CONTRASTon 06-16 CT CHEST WO CONTRAST [facility] [address]pmap[address] [place] [address] Patient Name: DESEAN LANDRY : 2Sex: MAge: Race: WhiteMRN: [id number]. Location: [id number] Status: IVisit #: [id number] Date: 06/16/2017 5:25:00 PMCompleted Date: 06/16/2017 06:06 PMRequesting Provider: RAFFAELE GARCIA Attending Provider: NADEEN SALCEDO Report Copy To: Signs & Symptoms: Shortness of BreathHistory: Patient history not availableComments: R/O Pleural Effusion, please comment about pleural effusionExam: CT CHEST WO CONTRASTAccession #: [id number] CT CHEST WO CONTRAST 06/16/2017 6:06 PM [...] findings. Electronically signed by:Xiomara Christine. Transcribed by: [email or web address], User Resident: SUNITHA NEGRETEElectronically Signed by: XIOMARA CHRISTINE @ 06/17/2017 01:24 PMI personally read this/these film(s) with this resident Normal [facility] Comment on above: Order Comment: No: Do not add to previou s draw CT-3D CT LUMBAR SPINE WO CON TRAST IMPORTon 06-16-2017 CT-3D CT LUMBAR SPINE WO CONTRAST IMPORT Images were obtained outside of [facility] [id number] Normal [facility] CT-3D CT THORACIC SPINE WO C ONTRAST IMPORTon 06-16-2017 CT-3D CT THORACIC SPINE WO CONTRAST IMPORT Images were obtained outside of [facility] [id number] Normal [facility] CT-CT CHEST WO CONTRAST IMPO RTon 06-16-2017 CT-CT CHEST WO CONTRAST IMPORT Images were obtained outside of [facility] [id number] Normal [facility] MYOGLOBINon 06-16-2017 Myoglobin 872 ng/mL Critically high 0-90 [facility] Comment on above: Result Comment: A DOUBLING OF VALUES FRO M SERIAL BLOOD COLLECTIONS(1 - 2 HOURS APART) IS MORE INDICATIVE OF A M.I.THAN THE ABSOLUTE VALUE. Performed By: #### 0 0071, 32092 ####[facility] [place] [address], [facility] PORTABLE CHEST 1 VIEWon PORTABLE CHEST 1 VIEW [facility] [address] [place] [address] Patient Name: DESEAN LANDRY : 2Sex: MAge: Race: WhiteMRN: [id number]. Location: [id number] Status: IVisit #: [id number] Date: 06/16/2017 12:50:00 PMCompleted Date: 06/16/2017 01:22 PMRequesting Provider: NADEEN SALCEDO Attending Provider: NADEEN SALCEDO Report Copy To: Signs & Symptoms: O2 DesaturationHistory: Patient history not availableComments: R/O AspirationExam: PORTABLE CHEST 1 VIEWAccession #: [id number] PORTABLE CHEST 1 VIEW 06/16/2017 1:22 PM [...] chest. Electronically signed by:Srinath Meyer. Transcribed by: [email or web address], User Resident: Electronically Signed by: SRINATH MEYER @ 06/16/2017 01:25 PM Normal [facility] Comment on above: Order Comment: No: Do not add to previou s draw PROTHROMBIN TIMEon 8 INR Coag RelTime (PPP) 1.51 {INR} High 0.91-1.16 [facility] Comment on above: Order Comment: No: [...] OF ACTION, CLINICALEFFECTIVENESS, AND OPTIMAL THERAPEUTIC RANGE. [id number];108:231S-246S. Performed By: #### 5 0608 ####[facility] Prothrombin time (PT) Coag time (PPP) 18.4 s High 12.3-14.8 [facility] Comment on above: Order Comment: No: Do not add to previou s draw Result Comment: ALL RESULTS MUST BE INTERPRETED WITH RESPECT TO BLOOD DRAWING ARTIFACTOR DILUTION ERROR OF ANTICOAGULANT AT THE TIME OF SAMPLING. Performed By: #### 5 0608 ####[facility] BASIC METABOLIC PANELon - Calcium 8.0 mg/dL Low 8.6-10.3 [facility] Comment on above: Order Comment: No: Do not add to previou s draw Performed By: #### 0 0071, 02074, 89725, 09249 ####[facility] [place] [address], [facility] Chloride 109 mmol/L High 98-107 [facility] Comment on above: Order Comment: No: Do not add to previou s draw Performed By: #### 0 0071, 13853, 68046, 40951 ####[facility] [place] [address], [facility] CO2 21 mmol/L Normal 21-31 [facility] Comment on above: Order Comment: No: Do not add to previou s draw Performed By: #### 0 0071, 98856, 15876, 14090 ####[facility]3000 [facility].[address] Creatinine 1.15 mg/dL Normal 0.70-1.30 [facility] Comment on above: Order Comment: No: Do not add to previou s draw Performed By: #### 0 0071, 07867, 88069, 27885 ####[facility] eGFR (black) mL/min/{1.73_m2} Normal >60 [facility] Comment on above: Order Comment: No: Do not add to previou s draw Result Comment: Calc ulation may not be valid for patients over 70 years Performed By: #### 0 0071, 50176, 42330, 63746 ####[facility] [place] [address], [facility] eGFR (non-black) mL/min/{1.73_m2} Normal >60 [facility] Comment on above: Order Comment: No: Do not add to previou s draw Result Comment: Calc ulation may not be valid for patients over 70 years Performed By: #### 0 0071, 47427, 16719, 79823 ####[facility] [place] [address], [facility] Glucose mass conc 117 mg/dL High 70-100 [facility] Comment on above: Order Comment: No: Do not add to previou s draw Performed By: #### 0 0071, 41130, 80970, 55920 ####[facility] [place] [address], [facility] Potassium molar conc 3.9 mmol/L Normal 3.5-5.1 [facility] Comment on above: Order Comment: No: Do not add to previou s draw Performed By: #### 0 0071, 94839, 83669, 74035 ####[facility] [place] [address], [facility] Sodium 138 mmol/L Normal 136-145 [facility] Comment on above: Order Comment: No: Do not add to previou s draw Performed By: #### 0 0071, 12927, 14893, 97887 ####[facility] [place] [address], [facility] Urea nitrogen 23 mg/dL Normal 7-25 [facility] Comment on above: Order Comment: No: Do not add to previou s draw Performed By: #### 0 0071, 32584, 53028, 82932 ####[facility] [place] [address], [facility] CBC COMPLETE BLOOD COUNTon 0 - Erythrocyte distribution width Auto Ratio (RBC) 13.7 % Normal 11.5-16.9 [facility] Comment on above: Order Comment: No: Do not add to previou s draw Performed By: #### 5 0608 ####[facility] Erythrocytes (RBC) 4.44 mill/mm3 Normal 4.30-5.90 [facility] Comment on above: Order Comment: No: Do not add to previou s draw Performed By: #### 5 0608 ####[facility]3000 [facility].[address] Hematocrit (HCT) 42.7 % Normal 39.0-55.0 [facility] Comment on above: Order Comment: No: Do not add to previou s draw Performed By: #### 5 0608 ####[place] [address] [facility].[address] Hemoglobin mass conc (Bld) 14.5 g/dL Normal 13.9-16.3 [facility] Comment on above: Order Comment: No: Do not add to previou s draw Performed By: #### 5 0608 ####[facility]3000 [facility].[address] MCH 32.7 pg High 24.0-32.0 [facility] Comment on above: Order Comment: No: Do not add to previou s draw Performed By: #### 5 0608 ####[facility]3000 [facility].[address] MCHC mass conc (RBC) 34.0 g/dL Normal 32.0-36.0 [facility] Comment on above: Order Comment: No: Do not add to previou s draw Performed By: #### 5 0608 ####[facility]3000 [facility].[address] MCV 96.1 fL Normal 80.0-100.0 [facility] Comment on above: Order Comment: No: Do not add to previou s draw Performed By: #### 5 0608 ####[facility] [place] [address], [facility] PLAT CNT 134 Thou/mm3 Normal 100-400 [facility] Comment on above: Order Comment: No: Do not add to previou s draw Performed By: #### 5 0608 ####[facility]3000 [facility].[address] WBC (Leukocytes) 11.3 Thou/mm3 High 4.0-10.0 [facility] Comment on above: Order Comment: No: Do not add to previou s draw Performed By: #### 5 0608 ####[facility]3000 [facility].[address] CPKon 06-15-2017 Creatine kinase (CK) 7925 U/L Critically high 30-223 [facility] Comment on above: Order Comment: No: Do not add to previou s draw Performed By: #### 0 0071, 89302 ####[place] [address] [facility].[address] MAGNESIUM BLOODon 06-15-2017 Magnesium 2.4 mg/dL Normal 1.9-2.7 [facility] Comment on above: Performed By: #### 39456, 38897 ####[address] PHOSPHORUS BLOODon 8 Phosphate 2.6 mg/dL Normal 2.5-5.0 [facility] Comment on above: Performed By: #### 50880, 17551 ####[address] BASIC METABOLIC PANELon 12-3 Calcium 8.3 mg/dL Low 8.6-10.3 [facility] Comment on above: Order Comment: No: Do not add to previou s draw Performed By: #### 4 1000, 91751, 96852, 39404, 02494 ####[facility]3000 [facility].[address] Chloride 107 mmol/L Normal 98-107 [facility] Comment on above: Order Comment: No: Do not add to previou s draw Performed By: #### 4 1000, 00727, 58562, 01428, 73982 ####[facility] [place] [address], [facility] CO2 23 mmol/L Normal 21-31 [facility] Comment on above: Order Comment: No: Do not add to previou s draw Performed By: #### 4 1000, 05976, 92533, 89521, 33848 ####[facility] [place] [address], [facility] Creatinine 1.25 mg/dL Normal 0.70-1.30 [facility] Comment on above: Order Comment: No: Do not add to previou s draw Performed By: #### 4 1000, 94084, 37672, 31855, 46555 ####[facility] eGFR (black) mL/min/{1.73_m2} Normal >60 [facility] Comment on above: Order Comment: No: Do not add to previou s draw Result Comment: Calc ulation may not be valid for patients over 70 years Performed By: #### 4 1000, 33937, 89214, 40461, 49456 ####[facility] [place] [address], [facility] eGFR (non-black) 56 ml/min/1.73sq m Abnormal >60 [facility] Comment on above: Order Comment: No: Do not add to previou s draw Result Comment: Calc ulation may not be valid for patients over 70 years Performed By: #### 4 1000, 47513, 73931, 29100, 38641 ####[facility] [place] [address], [facility] Glucose mass conc 109 mg/dL High 70-100 [facility] Comment on above: Order Comment: No: Do not add to previou s draw Performed By: #### 4 1000, 33834, 52164, 74570, 42554 ####[facility] [place] [address], [facility] Potassium molar conc 4.3 mmol/L Normal 3.5-5.1 [facility] Comment on above: Order Comment: No: Do not add to previou s draw Performed By: #### 4 1000, 88392, 10466, 32986, 67844 ####[facility] Sodium 136 mmol/L Normal 136-145 [facility] Comment on above: Order Comment: No: Do not add to previou s draw Performed By: #### 4 1000, 84983, 63718, 14702, 49627 ####[facility] Urea nitrogen 25 mg/dL Normal 7-25 [facility] Comment on above: Order Comment: No: Do not add to previou s draw Performed By: #### 4 1000, 89934, 08641, 26660, 34732 ####[facility] CBC COMPLETE BLOOD COUNTon Erythrocyte distribution width Auto Ratio (RBC) 13.8 % Normal 11.5-16.9 [facility] Comment on above: Order Comment: No: Do not add to previou s draw Performed By: #### 5 0608 ####[facility] [place] [address], [facility] Erythrocytes (RBC) 4.83 mill/mm3 Normal 4.30-5.90 [facility] Comment on above: Order Comment: No: Do not add to previou s draw Performed By: #### 5 0608 ####[facility] Hematocrit (HCT) 46.7 % Normal 39.0-55.0 [facility] Comment on above: Order Comment: No: Do not add to previou s draw Performed By: #### 5 0608 ####[facility] Hemoglobin mass conc (Bld) 15.8 g/dL Normal 13.9-16.3 [facility] Comment on above: Order Comment: No: Do not add to previou s draw Performed By: #### 5 0608 ####[facility] MCH 32.7 pg High 24.0-32.0 [facility] Comment on above: Order Comment: No: Do not add to previou s draw Performed By: #### 5 0608 ####[facility] MCHC mass conc (RBC) 33.9 g/dL Normal 32.0-36.0 [facility] Comment on above: Order Comment: No: Do not add to previou s draw Performed By: #### 5 0608 ####[facility] MCV 96.6 fL Normal 80.0-100.0 [facility] Comment on above: Order Comment: No: Do not add to previou s draw Performed By: #### 5 0608 ####[facility] [place] [address], [facility] PLAT CNT 135 Thou/mm3 Normal 100-400 [facility] Comment on above: Order Comment: No: Do not add to previou s draw Performed By: #### 5 0608 ####[facility] WBC (Leukocytes) 15.7 Thou/mm3 High 4.0-10.0 [facility] Comment on above: Order Comment: No: Do not add to previou s draw Performed By: #### 5 0608 ####[facility] CPKon 06-14-2017 Creatine kinase (CK) 69825 U/L Critically high 30-223 [facility] Comment on above: Performed By: #### 74730, 00673, 40023, 84951, 26770 ####[facility] MAGNESIUM BLOODon 06-14-2017 Magnesium 2.8 mg/dL High 1.9-2.7 [facility] Comment on above: Order Comment: No: Do not add to previou s draw Performed By: #### 4 1000, 87194, 65081, 10124, 02600 ####[facility] PHOSPHORUS BLOODon 7 Phosphate 3.3 mg/dL Normal 2.5-5.0 [facility] Comment on above: Order Comment: No: Do not add to previou s draw Performed By: #### 4 1000, 72986, 18947, 43234, 33470 ####[facility] TSHon 06-14-2017 Thyroid stimulating hormone (TSH) 2.65 MICRO-IU/ML Normal 0.34-5.60 [facility] Comment on above: Performed By: #### 09437, 60648, 22241, 02008, 01479 ####[facility] BASIC METABOLIC PANELon 05-17 Calcium 8.4 mg/dL Low 8.6-10.3 [facility] Comment on above: Order Comment: No: Do not add to previou s draw Performed By: #### 0 0071, 03332 ####[facility] [place] [address], [facility] Chloride 105 mmol/L Normal 98-107 [facility] Comment on above: Order Comment: No: Do not add to previou s draw Performed By: #### 0 0071, 75445 ####[facility] [place] [address], [facility] CO2 26 mmol/L Normal 21-31 [facility] Comment on above: Order Comment: No: Do not add to previou s draw Performed By: #### 0 0071, 10918 ####[facility] [place] [address], [facility] Creatinine 1.26 mg/dL Normal 0.70-1.30 [facility] Comment on above: Order Comment: No: Do not add to previou s draw Performed By: #### 0 0071, 16342 ####[facility] [place] [address], [facility] eGFR (black) mL/min/{1.73_m2} Normal >60 [facility] Comment on above: Order Comment: No: Do not add to previou s draw Result Comment: Calc ulation may not be valid for patients over 70 years Performed By: #### 0 0071, 32534 ####[facility] [place] [address], [facility] eGFR (non-black) 56 ml/min/1.73sq m Abnormal >60 [facility] Comment on above: Order Comment: No: Do not add to previou s draw Result Comment: Calc ulation may not be valid for patients over 70 years Performed By: #### 0 0071, 45696 ####[facility] [place] [address], [facility] Glucose mass conc 106 mg/dL High 70-100 [facility] Comment on above: Order Comment: No: Do not add to previou s draw Performed By: #### 0 0071, 65827 ####[facility] Potassium molar conc 4.8 mmol/L Normal 3.5-5.1 [facility] Comment on above: Order Comment: No: Do not add to previou s draw Performed By: #### 0 0071, 16623 ####[facility] Sodium 138 mmol/L Normal 136-145 [facility] Comment on above: Order Comment: No: Do not add to previou s draw Performed By: #### 0 0071, 44132 ####[facility] Urea nitrogen 23 mg/dL Normal 7-25 [facility] Comment on above: Order Comment: No: Do not add to previou s draw Performed By: #### 0 0071, 58519 ####[facility] CPKon 06-13-2017 Creatine kinase (CK) 28361 U/L Critically high 30-223 [facility] Comment on above: Order Comment: No: Do not add to previou s draw Performed By: #### 0 0071, 04988 ####[facility] History and Physicalon 06-13 History and Physical [id number] Admitted: 06/13/2017 Date of : 1940 Attending Physician: Arpan Camacho MD Room #: [id number] Discharge Date: HISTORY AND PHYSICALPRIMARY CARE PHYSICIAN: [...] evaluation and management.The patient presented to the [facility] Emergency Department. Overthere, the patient had initial workup revealed severe rhabdomyolysis, sothe patient was referred to the [facility] for further evaluationand management. Denying any [...] Dict: 06/13/2017/06:07 P/Mariangel Hayes Trans: 06/13/2017 06:38 [id number] Normal [facility] Encounters Encounter Date Encounter Type Care Provider Facility Start: 03-16-2024 End: 03-16-2024 ambulatory [facility] Start: 08-26-2022 End: 08-27-[address] [...] End: 04-06-2018 Patient encounter procedure CESAR BELTRAN [facility] Start: 09-10-2017 End: 09-11-2017 Patient encounter procedure CESAR BELTRAN [facility] Start: 07-23-2017 End: 07-24-2017 Patient encounter procedure CESAR BELTRAN [facility] Start: 07-23-2017 End: 07-23-2017 Patient encounter procedure KALEB SANDOVAL [facility] Start: 06-13-2017 End: 06-20-2017 Evaluation and management of inpatient ARPAN FRANK Facility:[facility] Procedures Date Procedure Procedure Detail Performing Clinician Start: 07-30-[address] YUAN GARCIA . Comment on above: Performed By: #### P TT, PT #### [facility] [address] [place] [address] Dr. Artem Rojas Payers Date Payer Category Payer [employer] ( and others) [id number] 1958 Medicare [id number] 1940 Unknown [id number] 1940 Unknown [id number] 1940 Unknown [id number] 1940 Unknown [id number] 1940 Unknown [id number] 1940 Unknown [id number] Medicare [id number] Progress note 03-16-2024 Note Date & Type Note Facility 03-16-2024 Note [place] Cardiology - [facility] Subjective Desean Landry Jr. is a 83 y.o. year old male patient being seen for 1 year follow up permanent afib, hypertension, and peripheral venous insufficiency. He was admitted to [facility] in Jan 2024 for LLE cellulitis. He [...] normal ventricular function, fixed inferior defect (prior DC vs. artifact), normal wall motion, no ischemia. [...] Update 07/08/2017: He was admitted recently to [facility] after falling and having rhabdomyolysis. He was hydrated. He did well. This was possibly related to deconditioning and he is getting physical therapy. He will be soon discharged to home from the senior care. otherwise he has no issues. Update 02/04/2018: [...] revealing. He reports (more content not included)... [facility] Summary Purpose Family History No Family [...] and content) DATE CREATED AUTHOR 12/08/2017 [facility] DATE CREATED AUTHOR AUTHOR'S ORGANIZ ATION 05/18/2018 [facility] DATE CREATED AUTHOR AUTHOR'S ORGANIZ ATION 01/16/2021 [facility] DATE CREATED AUTHOR AUTHOR'S ORGANIZ ATION 06/06/[address] [facility] DATE CREATED AUTHOR AUTHOR'S ORGANIZ ATION 09/02/2022 [facility] DATE CREATED AUTHOR AUTHOR'S ORGANIZ ATION 03/18/2024 [facility] FOR RECORDS PERTAINING TO PATIENTS WHO [...] BE BASED ON THE PRIMARY CLINICAL RECORDS. [employer] provides no warranty or guarantee of the accuracy or completeness of information in this document.
--- NOTE | 2024-03-25 10:00 | CA_ITS ---
Patient Name: DESEAN LANDRY MR#: [id number] : 1940 Exam Date: 03/25/2024 Ordering Doctor: DR DRAGAN MOORE M.D. ECHOCARDIOGRAM REPORT PROCEDURE: CA ECHO DOPPLER COMPLETE INDICATIONS: Atrial fibrillation, pacemaker COMPARISON: None. DESCRIPTION: COMPLETE ECHOCARDIOGRAM Real-time transthoracic echocardiography with 2D, M-mode, spectral and color flow Doppler performed. QUALITY: Technical quality was good. LEFT VENTRICLE: Normal chamber size. Mild concentric left ventricular hypertrophy. Systolic function is normal. LV EF: Normal left ventricular ejection fraction, (55%). DIASTOLIC: Not adequately assessed due to heart rhythm. ATRIAL SEPTUM: Visually appears intact. LEFT ATRIUM: Moderate dilatation. RIGHT ATRIUM: Mild dilatation. RIGHT VENTRICLE: Normal chamber size. Systolic function is normal. Pacer wire present. TRICUSPID VALVE: Normal mobility and thickness. No stenosis with trivial regurgitation. Doppler studies reveal mildly (35-45) elevated right sided pressures. RVSP 39 mmHg MITRAL VALVE: Normal mobility and thickness. No evidence of mitral valve stenosis. There is no mitral annular calcification. Trivial mitral regurgitation. AORTIC VALVE: Normal trileaflet appearance. Thickened aortic valve. Normal leaflet mobility. No evidence of aortic valve stenosis. Mild aortic regurgitation. AORTIC ROOT: Normal diameter and appearance. Ascending aorta is normal in size. PULMONIC VALVE: Not well visualized. No regurgitation. PERICARDIUM: No evidence of pericardial effusion. IVC: IVC is dilated (2.4 cm) with no collapse. PLEURA: CONCLUSION: 1. Mild concentric left ventricular hypertrophy with normal systolic function. LVEF is 55%. 2. Normal right ventricular size and systolic function. 3. Mild aortic valve regurgitation. 4. Mildly elevated right-sided pressures. 5. No pericardial effusion. 6. Mild to moderate biatrial dilatation. Adult Echocardiography Procedure Report Left Ventricle LVEDD (3.7 - 5.6 cm): 4.95 cm LVESD (2.2 - 4.0 cm): 3.43 cm LVIVS thickness (0.6 - 1.2 cm): 1.17 cm LVPW thickness (0.5 - 1.0 cm): 1.15 cm LVOT Max Gradient: 1.50 mm[Hg] LVOT Area (cm2): 0.61 m/s Peak Velocity (LVOT): 0.61 m/s Mean Velocity (LVOT): 0.39 m/s LVOT Diameter 2.32 cm Left Atrium LA Volume Index (2D A2C): 53.77 ml/m2 Left Atrium Systolic Dimension: 4.30 cm Mitral Valve Mitral Valve E-Wave Peak Velocity: 0.64 m/s Right Ventricle Aorta AO Root Diam: 3.79 cm Ascending Ao Diam: 3.11 cm Aortic Valve AoV Area (Peak Demetri): 4.03 cm2, 4.03 cm2 AoV Area (VTI): 4.20 cm2, 4.20 cm2 Peak Velocity(Antegrade Flow): 0.64 m/s Peak Gradient(Antegrade Flow): 1.66 mm[Hg] Mean Velocity(Antegrade Flow): 0.40 m/s Mean Gradient(Antegrade Flow): 0.76 mm[Hg] Velocity Time Integral: 13.09 cm Tricuspid Valve Peak Velocity (Regurgitant Flow): 2.45 m/s Pulmonic Valve Mean Gradient: 0.84 mm[Hg] Mean Velocity: 0.42 m/s Peak Velocity: 0.71 m/s, 0.81 m/s Peak Gradient: 2.63 mm[Hg], 2.02 mm[Hg] Right Atrium Right Atrium Systolic Pressure: 58.72 ml, 58.72 ml Dictated by: Dragan Moore M.D. on 03/25/2024 at 18:10 Approved by: Dragan Moore M.D. on 03/25/2024 at 18:12
== END 2024-03-25 09:54 | disposition home or self-care (01) ==
LOC: CARD 09:54
PROVIDERS: PCP Family Medicine; Visit Provider Internal Medicine Interventional Cardiology
DX: I48.21 Permanent atrial fibrillation (principal); I35.1 Nonrheumatic aortic (valve) insufficiency
CPT/HCPCS: 93306

== ENCOUNTER 2024-09-19 12:11 | Emergency (ER) | payer MEDICARE, OTHER, MEDICAID, SELFPAY ==
[2024-09-19] VITALS (13 sets, daily range): BP systolic 139–155; BP diastolic 73–88; PULSE 60–62; TEMP 36.4; O2SAT 97–99; BMI 32.3
--- OUTSIDE RECORDS SUMMARY | 2024-09-19 12:35 | XMS_ITS | CCD ---
Author Organization [facility] Care Team Providers Care Cvor Nurse Name Role Phone ARPAN CAMACHO Unavailable Unavailable SHARA GILMORE Unavailable Unavailable GAIL CASIANOLAS Unavailable Unavailable FEDERMAN, DIOGENES Unavailable Unavailable LORI, RENDELL Unavailable Unavailable LORI, RENDELL Unavailable Unavailable JOSE ITALO (EXPANDER) Unavailable Unavailable LORI, RENDELL Unavailable Unavailable LORI, [...] Unavailable DREAD WOLF Consulting Unavailable DR SRINATH MCKENO Consulting Unavailable HOMartin ., DR SHETTY Primary [...] ., DR SHETTY Primary Care Unavailable DRAGAN MOORE Attending Unavailable Problems Active Problems Problem Classification [...] Onset: 03-04-2022 Episodic Other aftercare (1 source) assisted (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; Translations: [JAIL (CURRENT) USE OF ANTICOAGULANTS] Onset: 06-13-2017 Episodic Other aftercare (1 source) 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 ----- Message ----- Normal [facility] Office Visiton 03-16-2024 Follow-up visit [id number] Jordin Landry Jr. 1940 M Date Provider Department Center 03/16/2024 DRAGAN BALDWIN ERI[facility] Family History Problem Relation Age of Onset Cancer Mother Family Status - Relation Status Age at Mother Level of Service:60845 AR OFFICE/OUTPATIENT ESTABLISHED MOD MDM 30 MIN Normal [facility] Orders Onlyon 08-19-2023 Orders Only [id number] Jordin Landry Jr. 1940 M Date Provider Department Center 08/19/2023 DREAD JOSEPH [facility] Family History Problem Relation Age of Onset Cancer Mother Family Status - Relation Status Age at Mother Normal [facility] CBC AUTO DIFFon 08-26-2022 BASO # 0.1 103/ul Normal 0.0-0.1 [facility] Comment on above: Performed By: #### CBC #### [facility] [address] [place] [address] Dr. Artem Rojas Basophils/100 WBC (Bld) 1.0 % Normal 0.2-2.0 [facility] Comment on above: Performed By: #### CBC #### [facility] [address] [address] [address] Artem Rojas EO # 0.2 103/ul Normal 0.0-0.7 [facility] Comment on above: Performed By: #### CBC #### [facility] [address] [place] [address] Dr. Artem Rojas Eosinophils/100 WBC (Bld) 2.0 % Normal 0.9-7.0 [facility] Comment on above: Performed By: #### CBC #### [facility] [address] [address] [address] Artem Rojas Erythrocyte distribution width (RBC) [Ratio] 13.1 % Normal 11.0-15.0 [facility] Comment on above: Performed By: #### CBC #### [facility] [address] [place] [address] Dr. Artem Rojas Hematocrit (Bld) [Volume fraction] 43.8 % Normal 42.0-54.0 [facility] Comment on above: Performed By: #### CBC #### [facility] [address] [place] [address] Dr. Artem Rojas Hemoglobin (Bld) [Mass/Vol] 14.5 g/dL Normal 14.0-18.0 [facility] Comment on above: Performed By: #### CBC #### [facility] [address] [place] [address] Dr. Artem Rojas IG # 0.07 10e3/ul Critically high 0.00-0.03 [facility] Comment on above: Performed By: #### CBC #### [facility] [address] [place] [address] Dr. Artem Rojas IG % 0.8 % Critically high 0.0-0.5 [facility] Comment on above: Performed By: #### CBC #### [facility] [address] [place] [address] Dr. Artem Rojas LYMPH # 1.8 103/ul Normal 1.2-3.8 [facility] Comment on above: Performed By: #### CBC #### [facility] [address] [place] [address] Dr. Artem Rojas Lymphocytes/100 WBC (Bld) 20.0 % Critically low 20.5-60.0 [facility] Comment on above: Performed By: #### CBC #### [facility] [address] [place] [address] Dr. Artem Rojas MANUAL DIFF REQ NO Normal [facility] Comment on above: Performed By: #### CBC #### [facility] [address] [place] [address] Dr. Artem Rojas MCH (RBC) [Entitic mass] 30.0 pg Normal 25.9-34.0 [facility] Comment on above: Performed By: #### CBC #### [facility] [address] [place] [address] Dr. Artem Rojas MCHC (RBC) [Mass/Vol] 33.1 g/dL Normal 29.9-35.2 [facility] Comment on above: Performed By: #### CBC #### [facility] [address] [place] [address] Dr. Artem Rojas MCV (RBC) [Entitic vol] 90.7 fL Normal 80.0-94.0 [facility] Comment on above: Performed By: #### CBC #### [facility] [address] [place] [address] Dr. Artem Rojas MONO # 0.8 103/ul Normal 0.3-0.8 [facility] Comment on above: Performed By: #### CBC #### [facility] [address] [place] [address] Dr. Artem Rojas Monocytes/100 WBC (Bld) 8.7 % Normal 1.7-12.0 [facility] Comment on above: Performed By: #### CBC #### [facility] [address] [place] [address] Dr. Artem Rojas NEUT # 6.1 103/ul Normal 1.4-6.5 [facility] Comment on above: Performed By: #### CBC #### [facility] [address] [place] [address] Dr. Artem Rojas Neutrophils/100 WBC (Bld) 67.5 % Normal 43.0-75.0 [facility] Comment on above: Performed By: #### CBC #### [facility] [address] [place] [address] Dr. Artem Rojas Platelet mean volume (Bld) [Entitic vol] 9.7 fL Normal 9.5-13.5 [facility] Comment on above: Performed By: #### CBC #### [facility] [address] [place] [address] Dr. Artem Rojas PLT 333 103/ul Normal 150-450 [facility] Comment on above: Performed By: #### CBC #### [facility] [address] [place] [address] Dr. Artem Rojas RBC 4.83 106/ul Normal 4.70-6.10 [facility] Comment on above: Performed By: #### CBC #### [facility] [address] [place] [address] Dr. Artem Rojas WBC 9.0 103/ul Normal 4.0-11.0 [facility] Comment on above: Performed By: #### CBC #### [facility] [address] [place] [address] Dr. Artem Rojas PROF CHEM 8 (BAS METB)on Anion gap [Moles/Vol] 9.4 mmol/L Normal [facility] Comment on above: Performed By: #### PTT, PT #### [facility] [address] [place] [address] Dr. Artem Rojas Calcium [Mass/Vol] 9.4 mg/dL Normal 8.5-10.1 [facility] Comment on above: Performed By: #### PTT, PT #### [facility] [address] [place] [address] Dr. Artem Rojas Chloride [Moles/Vol] 105 mmol/L Normal 98-107 [facility] Comment on above: Performed By: #### PTT, PT #### [facility] [address] [place] [address] Dr. Artem Rojas CO2 [Moles/Vol] 29.3 mmol/L Normal 21.0-32.0 [facility] Comment on above: Performed By: #### PTT, PT #### [facility] [address] [place] [address] Dr. Artem Rojas Creatinine [Mass/Vol] 1.06 mg/dL Normal 0.70-1.30 [facility] Comment on above: Performed By: #### PTT, PT #### [facility] [address] [place] [address] Dr. Artem Rojas EGFR-AF ANGUILLAN >60 Normal >=60 [facility] Comment on above: Performed By: #### PTT, PT #### [facility] [address] [place] [address] Dr. Artem Rojas EGFR-NON AF ANGUILLAN >60 Normal >=60 [facility] Comment on above: Performed By: #### PTT, PT #### [facility] [address] [place] [address] Dr. Artem Rojas Glucose [Mass/Vol] 125 mg/dL Critically high 74-106 [facility] Comment on above: Performed By: #### PTT, PT #### [facility] [address] [address] [address] Artem Rojas Potassium [Moles/Vol] 4.3 mmol/L Normal 3.5-5.1 [facility] Comment on above: Performed By: #### PTT, PT #### [facility] [address] [address] [address] Artem Rojas Sodium [Moles/Vol] 139 mmol/L Normal 136-145 [facility] Comment on above: Performed By: #### PTT, PT #### [facility] [address] [address] [address] Artem Rojas Urea nitrogen [Mass/Vol] 20.0 mg/dL Critically high 7.0-18.0 [facility] Comment on above: Performed By: #### PTT, PT #### [facility] [address] [address] [address] Artem Rojas Urea nitrogen/Creatin ine [Mass ratio] 18.9 mg/mg Normal [facility] Comment on above: Performed By: #### PTT, PT #### [facility] [address] [address] [address] Artem Rojas [facility]on SARS-CoV-2 (COVID-19) RNA MONICA+probe Ql (Unsp spec) Not detected Normal NOT DETECTED [facility] Comment on above: Result [...] for this test is supported by the [employer] of Health and Human Service's declaration that [...] Performed By: #### P TT, PT #### [facility] [address] [place] [address] Dr. Artem Rojas INFLUENZA A AND B AGon 08-20 INFLUANE SEE BELOW Normal [facility] Comment on above: Result Comment: Negative for Flu A prote in angiten. Infection due to Flu A cannot be ruled out. Flu A angiten in the sample may be below the detection limit of the test. Performed By: #### P TT, PT #### [facility] [address] [place] [address] Dr. Artem Rojas INFLUBNEGH SEE BELOW Normal [facility] Comment on above: Result Comment: Negative for Flu B prote in antigen. Infection due to Flu B cannot be ruled out. Flu B antigen in the sample may be below the detection limit of the test. Performed By: #### P TT, PT #### [facility] [address] [place] [address] Dr. Artem Rojas INFLUENZA A AG Negative Normal NEGATIVE SEE COMMENT [facility] Comment on above: Performed By: #### PTT, PT #### [facility] [address] [place] [address] Dr. Artem Rojas INFLUENZA B AG Negative Normal NEGATIVE SEE COMMENT [facility] Comment on above: Performed By: #### PTT, PT #### [facility] [address] [place] [address] Dr. Artem Rojas INSULINon 07-31-2022 Insulin 16.3 uIU/mL Normal 2.6-24.9 [facility] Comment on above: Performed By: #### PTT, PT #### [facility] [address] [place] [address] Dr. Artem Rojas BNPon 07-30-2022 Natriuretic peptide B (Bld) [Mass/Vol] 1826.0 pg/mL Critically high <=1,800.0 [facility] Comment on above: Performed By: #### CMP, BNP, URIC, TSH, T7, LIPID #### [facility] [address] [place] [address] Dr. Artem Rojas CBC AUTO DIFFon 07-30-2022 BASO # 0.1 103/ul Normal 0.0-0.1 [facility] Comment on above: Performed By: #### PTT, PT #### [facility] [address] [place] [address] Dr. Artem Rojas Basophils/100 WBC (Bld) 1.0 % Normal 0.2-2.0 [facility] Comment on above: Performed By: #### PTT, PT #### [facility] [address] [place] [address] Dr. Artem Rojas EO # 0.2 103/ul Normal 0.0-0.7 [facility] Comment on above: Performed By: #### PTT, PT #### [facility] [address] [place] [address] Dr. Artem Rojas Eosinophils/100 WBC (Bld) 2.4 % Normal 0.9-7.0 [facility] Comment on above: Performed By: #### PTT, PT #### [facility] [address] [place] [address] Dr. Artem Rojas Erythrocyte distribution width (RBC) [Ratio] 13.8 % Normal 11.0-15.0 [facility] Comment on above: Performed By: #### PTT, PT #### [facility] [address] [place] [address] Dr. Artem Rojas Hematocrit (Bld) [Volume fraction] 44.1 % Normal 42.0-54.0 [facility] Comment on above: Performed By: #### PTT, PT #### [facility] [address] [place] [address] Dr. Artem Rojas Hemoglobin (Bld) [Mass/Vol] 14.5 g/dL Normal 14.0-18.0 [facility] Comment on above: Performed By: #### PTT, PT #### [facility] [address] [place] [address] Dr. Artem Rojas IG # 0.02 10e3/ul Normal 0.00-0.03 [facility] Comment on above: Performed By: #### PTT, PT #### [facility] [address] [place] [address] Dr. Artem Rojas IG % 0.2 % Normal 0.0-0.5 [facility] Comment on above: Performed By: #### PTT, PT #### [facility] [address] [place] [address] Dr. Artem Rojas LYMPH # 2.1 103/ul Normal 1.2-3.8 [facility] Comment on above: Performed By: #### PTT, PT #### [facility] [address] [place] [address] Dr. Artem Rojas Lymphocytes/100 WBC (Bld) 24.3 % Normal 20.5-60.0 [facility] Comment on above: Performed By: #### PTT, PT #### [facility] [address] [place] [address] Dr. Artem Rojas MANUAL DIFF REQ NO Normal [facility] Comment on above: Performed By: #### PTT, PT #### [facility] [address] [place] [address] Dr. Artem Rojas MCH (RBC) [Entitic mass] 30.3 pg Normal 25.9-34.0 [facility] Comment on above: Performed By: #### PTT, PT #### [facility] [address] [place] [address] Dr. Artem Rojas MCHC (RBC) [Mass/Vol] 32.9 g/dL Normal 29.9-35.2 [facility] Comment on above: Performed By: #### PTT, PT #### [facility] [address] [place] [address] Dr. Artem Rojas MCV (RBC) [Entitic vol] 92.1 fL Normal 80.0-94.0 [facility] Comment on above: Performed By: #### PTT, PT #### [facility] [address] [place] [address] Dr. Artem Rojas MONO # 0.8 103/ul Normal 0.3-0.8 [facility] Comment on above: Performed By: #### PTT, PT #### [facility] [address] [place] [address] Dr. Artem Rojas Monocytes/100 WBC (Bld) 9.0 % Normal 1.7-12.0 [facility] Comment on above: Performed By: #### PTT, PT #### [facility] [address] [place] [address] Dr. Artem Roajs NEUT # 5.6 103/ul Normal 1.4-6.5 [facility] Comment on above: Performed By: #### PTT, PT #### [facility] [address] [place] [address] Dr. Artem Rojas Neutrophils/100 WBC (Bld) 63.1 % Normal 43.0-75.0 [facility] Comment on above: Performed By: #### PTT, PT #### [facility] [address] [place] [address] Dr. Artem Rojas Platelet mean volume (Bld) [Entitic vol] 10.0 fL Normal 9.5-13.5 [facility] Comment on above: Performed By: #### PTT, PT #### [facility] [address] [place] [address] Dr. Artem Rojas PLT 193 103/ul Normal 150-450 [facility] Comment on above: Performed By: #### PTT, PT #### [facility] [address] [place] [address] Dr. Artem Rojas RBC 4.79 106/ul Normal 4.70-6.10 [facility] Comment on above: Performed By: #### PTT, PT #### [facility] [address] [place] [address] Dr. Artem Rojas WBC 8.8 103/ul Normal 4.0-11.0 [facility] Comment on above: Performed By: #### PTT, PT #### [facility] [address] [place] [address] Dr. Artem Rojas FREE THYROXINE INDEX T7on FTI 2.52 Normal 1.30-4.50 [facility] Comment on above: Performed By: #### CMP, BNP, URIC, TSH, T7, LIPID #### [facility] [address] [place] [address] Dr. Artem Rojas T3U 35.0 % Normal 33.0-40.0 [facility] Comment on above: Performed By: #### CMP, BNP, URIC, TSH, T7, LIPID #### [facility] [address] [place] [address] Dr. Artem Rojas T4 [Mass/Vol] 7.20 ug/dL Normal 4.50-12.10 [facility] Comment on above: Performed By: #### CMP, BNP, URIC, TSH, T7, LIPID #### [facility] [address] [place] [address] Dr. Artem Rojas GLYCOHEMOGLOBIN A1Con 2022 ADA RECOMMENDATION SEE BELOW Normal [facility] Comment on above: Result Comment: ADA RECOMMENDED LIMIT 4. 0 - 6.0 ADA THERAPEUTIC TARGET < 7.0 ACTION SUGGESTED > 7.0 Performed By: #### A 1C #### [facility] [address] [place] [address] Dr. Artem Rojas Glucose [Mass/Vol] 128 mg/dL Normal [facility] Comment on above: Performed By: #### A1C #### [facility] [address] [place] [address] Dr. Artem Rojas HbA1c (Bld) [Mass fraction] 6.1 % Normal 4.5-6.2 [facility] Comment on above: Performed By: #### A1C #### [facility] [address] [place] [address] Dr. Artem Rojas LIPID PROFILEon 07-30-2022 CHOL-HDL RATIO NORM SEE BELOW Normal [facility] Comment on above: Result Comment: 3.3 - 4.4 LOW RISK 4.4 - 7.1 AVERAGE RISK 7.1 - 11.0 MODERATE RISK >11.0 HIGH RISK Performed By: #### C MP, BNP, URIC, TSH, T7, LIPID #### [facility] [address] [place] [address] Dr. Artem Rojas Cholesterol [Mass/Vol] 157 mg/dL Normal <=200 [facility] Comment on above: Performed By: #### CMP, BNP, URIC, TSH, T7, LIPID #### [facility] [address] [address] [address] Artem Rojas Cholesterol in HDL [Mass/Vol] 51 mg/dL Normal 40-60 [facility] Comment on above: Performed By: #### CMP, BNP, URIC, TSH, T7, LIPID #### [facility] [address] [address] [address] Artem Rojas Cholesterol in LDL [Mass/Vol] 86.6 mg/dL Normal [facility] Comment on above: Performed By: #### CMP, BNP, URIC, TSH, T7, LIPID #### [facility] [address] [address] [address] Artem Rojas Cholesterol.tota l/Cholesterol in HDL [Mass ratio] 3.1 {ratio} Normal [facility] Comment on above: Performed By: #### CMP, BNP, URIC, TSH, T7, LIPID #### [facility] [address] [address] [address] Artem Rojas HDL NORMAL > or = 60 mg/dl - LO W CARDIOVASCULAR RISK <40 mg/dl - HIGH CARDIOVASCULAR RISK Normal [facility] Comment on above: Performed By: #### CMP, BNP, URIC, TSH, T7, LIPID #### [facility] [address] [address] [address] Artem Rojas LDL CALC NORMAL SEE BELOW Normal [facility] Comment on above: Result Comment: <100 mg/dl OPTIMAL 100 - 129 mg/dl NEAR OR ABOVE OPTIMAL 130 - 159 mg/dl BORDERLINE HIGH 160 - 189 mg/dl HIGH >190 mg/dl VERY HIGH Performed By: #### C MP, BNP, URIC, TSH, T7, LIPID #### [facility] [address] [address] [address] Artem Rojas Triglyceride [Mass/Vol] 97 mg/dL Normal <=150 [facility] Comment on above: Performed By: #### CMP, BNP, URIC, TSH, T7, LIPID #### [facility] [address] [address] [address] Artem Rojas VLDL CALC 19.4 mg/dL Normal [facility] Comment on above: Performed By: #### CMP, BNP, URIC, TSH, T7, LIPID #### [facility] [address] [place] [address] Dr. Artem Rojas PROF 14(COMP METB)on 023 Albumin [Mass/Vol] 3.5 g/dL Normal 3.4-5.0 [facility] Comment on above: Performed By: #### CMP, BNP, URIC, TSH, T7, LIPID #### [facility] [address] [place] [address] Dr. Artem Rojas Albumin/Globulin [Mass ratio] 1.1 {ratio} Normal [facility] Comment on above: Performed By: #### CMP, BNP, URIC, TSH, T7, LIPID #### [facility] [address] [place] [address] Dr. Artem Rojas ALP [Catalytic activity/Vol] 70 U/L Normal 46-116 [facility] Comment on above: Performed By: #### CMP, BNP, URIC, TSH, T7, LIPID #### [facility] [address] [place] [address] Dr. Artem Rojas ALT [Catalytic activity/Vol] 19 U/L Normal 16-63 [facility] Comment on above: Performed By: #### CMP, BNP, URIC, TSH, T7, LIPID #### [facility] [address] [place] [address] Dr. Artem Rojas Anion gap [Moles/Vol] 11.7 mmol/L Normal [facility] Comment on above: Performed By: #### CMP, BNP, URIC, TSH, T7, LIPID #### [facility] [address] [place] [address] Dr. Artem Rojas AST [Catalytic activity/Vol] 18 U/L Normal 15-37 [facility] Comment on above: Performed By: #### CMP, BNP, URIC, TSH, T7, LIPID #### [facility] [address] [place] [address] Dr. Artem Rojas Bilirubin [Mass/Vol] 0.5 mg/dL Normal 0.2-1.0 [facility] Comment on above: Performed By: #### CMP, BNP, URIC, TSH, T7, LIPID #### [facility] [address] [place] [address] Dr. Artem Rojas Calcium [Mass/Vol] 9.3 mg/dL Normal 8.5-10.1 [facility] Comment on above: Performed By: #### CMP, BNP, URIC, TSH, T7, LIPID #### [facility] [address] [place] [address] Dr. Artem Rojas Chloride [Moles/Vol] 105 mmol/L Normal 98-107 [facility] Comment on above: Performed By: #### CMP, BNP, URIC, TSH, T7, LIPID #### [facility] [address] [place] [address] Dr. Artem Rojas CO2 [Moles/Vol] 29.7 mmol/L Normal 21.0-32.0 [facility] Comment on above: Performed By: #### CMP, BNP, URIC, TSH, T7, LIPID #### [facility] [address] [place] [address] Dr. Artem Rojas Creatinine [Mass/Vol] 0.87 mg/dL Normal 0.70-1.30 [facility] Comment on above: Performed By: #### CMP, BNP, URIC, TSH, T7, LIPID #### [facility] [address] [place] [address] Dr. Artem Rojas EGFR-AF ANGUILLAN >60 Normal >=60 [facility] Comment on above: Performed By: #### CMP, BNP, URIC, TSH, T7, LIPID #### [facility] [address] [place] [address] Dr. Artem Rojas EGFR-NON AF ANGUILLAN >60 Normal >=60 [facility] Comment on above: Performed By: #### CMP, BNP, URIC, TSH, T7, LIPID #### [facility] [address] [place] [address] Dr. Artem Rojas Globulin (S) [Mass/Vol] 3.3 g/dL Normal [facility] Comment on above: Performed By: #### CMP, BNP, URIC, TSH, T7, LIPID #### [facility] [address] [place] [address] Dr. Artem Rojas Glucose [Mass/Vol] 118 mg/dL Critically high 74-106 [facility] Comment on above: Performed By: #### CMP, BNP, URIC, TSH, T7, LIPID #### [facility] [address] [place] [address] Dr. Artem Rojas Potassium [Moles/Vol] 4.4 mmol/L Normal 3.5-5.1 [facility] Comment on above: Performed By: #### CMP, BNP, URIC, TSH, T7, LIPID #### [facility] [address] [place] [address] Dr. Artem Rojas Protein [Mass/Vol] 6.8 g/dL Normal 6.4-8.2 [facility] Comment on above: Performed By: #### CMP, BNP, URIC, TSH, T7, LIPID #### [facility] [address] [place] [address] Dr. Artem Rojas Sodium [Moles/Vol] 142 mmol/L Normal 136-145 [facility] Comment on above: Performed By: #### CMP, BNP, URIC, TSH, T7, LIPID #### [facility] [address] [place] [address] Dr. Artem Rojas Urea nitrogen [Mass/Vol] 19.0 mg/dL Critically high 7.0-18.0 [facility] Comment on above: Performed By: #### CMP, BNP, URIC, TSH, T7, LIPID #### [facility] [address] [place] [address] Dr. Artem Rojas Urea nitrogen/Creatin ine [Mass ratio] 21.8 mg/mg Normal [facility] Comment on above: Performed By: #### CMP, BNP, URIC, TSH, T7, LIPID #### [facility] [address] [place] [address] Dr. Artem Rojas TSHon 07-30-2022 TSH 1.773 uIU/mL Normal 0.358-3.740 [facility] Comment on above: Performed By: #### CMP, BNP, URIC, TSH, T7, LIPID #### [facility] [address] [place] [address] Dr. Artem Rojas URIC ACID SERUMon 07-30-2022 Urate [Mass/Vol] 5.8 mg/dL Normal 3.5-7.2 [facility] Comment on above: Performed By: #### CMP, BNP, URIC, TSH, T7, LIPID #### [facility] [address] [place] [address] Dr. Artem Rojas VITAMIN D 25 OHon 07-30-2022 VIT D 25-OH 65.5 ng/mL Normal [facility] Comment on above: Performed By: #### PTT, PT #### [facility] [address] [place] [address] Dr. Artem Rojas VIT D RANGES SEE BELOW Normal [facility] Comment on above: Result Comment: <20 ng/mL Vit D deficien t 20 - <30 ng/mL Vit D insufficient 30 - 100 ng/mL Vit D sufficient >100 ng/mL Potential Toxicity Performed By: #### P TT, PT #### [facility] [address] [place] [address] Dr. Artem Rojas CBC AUTO DIFFon 03-02-2022 BASO # 0.1 103/ul Normal 0.0-0.1 [facility] Comment on above: Performed By: #### PTT, PT #### [facility] [address] [place] [address] Dr. Artem Rojas Basophils/100 WBC (Bld) 0.5 % Normal 0.2-2.0 [facility] Comment on above: Performed By: #### PTT, PT #### [facility] [address] [place] [address] Dr. Artem Rojas EO # 0.0 103/ul Normal 0.0-0.7 [facility] Comment on above: Performed By: #### PTT, PT #### [facility] [address] [place] [address] Dr. Artem Rojas Eosinophils/100 WBC (Bld) 0.1 % Critically low 0.9-7.0 [facility] Comment on above: Performed By: #### PTT, PT #### [facility] [address] [place] [address] Dr. Artem Rojas Erythrocyte distribution width (RBC) [Ratio] 12.9 % Normal 11.0-15.0 [facility] Comment on above: Performed By: #### PTT, PT #### [facility] [address] [place] [address] Dr. Artem Rojas Hematocrit (Bld) [Volume fraction] 39.7 % Critically low 42.0-54.0 [facility] Comment on above: Performed By: #### PTT, PT #### [facility] [address] [place] [address] Dr. Artem Rojas Hemoglobin (Bld) [Mass/Vol] 13.1 g/dL Critically low 14.0-18.0 [facility] Comment on above: Performed By: #### PTT, PT #### [facility] [address] [place] [address] Dr. Artem Rojas IG # 0.05 10e3/ul Critically high 0.00-0.03 [facility] Comment on above: Performed By: #### PTT, PT #### [facility] [address] [place] [address] Dr. Artem Rojas IG % 0.4 % Normal 0.0-0.5 [facility] Comment on above: Performed By: #### PTT, PT #### [facility] [address] [place] [address] Dr. Artem Rojas LYMPH # 0.8 103/ul Critically low 1.2-3.8 [facility] Comment on above: Performed By: #### PTT, PT #### [facility] [address] [place] [address] Dr. Artem Rojas Lymphocytes/100 WBC (Bld) 5.7 % Critically low 20.5-60.0 [facility] Comment on above: Performed By: #### PTT, PT #### [facility] [address] [place] [address] Dr. Artem Rojas MANUAL DIFF REQ NO Normal [facility] Comment on above: Performed By: #### PTT, PT #### [facility] [address] [place] [address] Dr. Artem Rojas MCH (RBC) [Entitic mass] 31.5 pg Normal 25.9-34.0 [facility] Comment on above: Performed By: #### PTT, PT #### [facility] [address] [place] [address] Dr. Artem Rojas MCHC (RBC) [Mass/Vol] 33.0 g/dL Normal 29.9-35.2 [facility] Comment on above: Performed By: #### PTT, PT #### [facility] [address] [place] [address] Dr. Artem Rojas MCV (RBC) [Entitic vol] 95.4 fL Critically high 80.0-94.0 [facility] Comment on above: Performed By: #### PTT, PT #### [facility] [address] [place] [address] Dr. Artem Rojas MONO # 1.0 103/ul Critically high 0.3-0.8 [facility] Comment on above: Performed By: #### PTT, PT #### [facility] [address] [place] [address] Dr. Artem Rojas Monocytes/100 WBC (Bld) 7.4 % Normal 1.7-12.0 [facility] Comment on above: Performed By: #### PTT, PT #### [facility] [address] [place] [address] Dr. Artem Rojas NEUT # 11.4 103/ul Critically high 1.4-6.5 [facility] Comment on above: Performed By: #### PTT, PT #### [facility] [address] [place] [address] Dr. Artem Rojas Neutrophils/100 WBC (Bld) 85.9 % Critically high 43.0-75.0 [facility] Comment on above: Performed By: #### PTT, PT #### [facility] [address] [place] [address] Dr. Artem Rojas Platelet mean volume (Bld) [Entitic vol] 10.8 fL Normal 9.5-13.5 [facility] Comment on above: Performed By: #### PTT, PT #### [facility] [address] [place], [place] [address] Dr. Artem Rojas PLT 164 103/ul Normal 150-450 [facility] Comment on above: Performed By: #### PTT, PT #### [facility] [address] [place], [place] [address] Dr. Artem Rojas RBC 4.16 106/ul Critically low 4.70-6.10 [facility] Comment on above: Performed By: #### PTT, PT #### [facility] [address] [place], [place] [address] Dr. Artem Rojas WBC 13.2 103/ul Critically high 4.0-11.0 [facility] Comment on above: Performed By: #### PTT, PT #### [facility] [address] [place], [place] [address] CSPINE WO CONon [...] WILLIAM ARIAS Date: 2022-03-02 17:51 Normal [facility] CT HEAD WO CONon 03-02-2022 [...] NISSA VIGIL Date: 2022-03-02 17:40 Normal [facility] SARS-CoV-2 (COVID-19) RNA MONICA+probe Ql (Unsp spec) Not detected Normal NOT DETECTED [facility] Comment on above: Result [...] for this test is supported by the [employer] of Health and Human Service's declaration that [...] Performed By: #### P TT, PT #### [facility] [address] [place] [address] Dr. Artem Rojas GASTROCCULTon 03-02-2022 GASTROCCULT Positive Abnormal NEGATIVE [facility] Comment on above: Performed By: #### PTT, PT #### [facility] [address] [place] [address] Dr. Artem Rojas PH GASTRIC 2 Normal [facility] Comment on above: Performed By: #### PTT, PT #### [facility] [address] [place] [address] Dr. Artem Rojas PROF 14(COMP METB)on 022 Albumin [Mass/Vol] 3.6 g/dL Normal 3.4-5.0 [facility] Comment on above: Performed By: #### PTT, PT #### [facility] [address] [place] [address] Dr. Artem Rojas Albumin/Globulin [Mass ratio] 1.3 {ratio} Normal [facility] Comment on above: Performed By: #### PTT, PT #### [facility] [address] [place] [address] Dr. Artem Rojas ALP [Catalytic activity/Vol] 65 U/L Normal 46-116 [facility] Comment on above: Performed By: #### PTT, PT #### [facility] [address] [place] [address] Dr. Artem Rojas ALT [Catalytic activity/Vol] 12 U/L Critically low 16-63 [facility] Comment on above: Performed By: #### PTT, PT #### [facility] [address] [place] [address] Dr. Artem Rojas Anion gap [Moles/Vol] 12.8 mmol/L Normal [facility] Comment on above: Performed By: #### PTT, PT #### [facility] [address] [place] [address] Dr. Artem Rojas AST [Catalytic activity/Vol] 15 U/L Normal 15-37 [facility] Comment on above: Performed By: #### PTT, PT #### [facility] [address] [place] [address] Dr. Artem Rojas Bilirubin [Mass/Vol] 1.1 mg/dL Critically high 0.2-1.0 [facility] Comment on above: Performed By: #### PTT, PT #### [facility] [address] [place] [address] Dr. Artem Rojas Calcium [Mass/Vol] 9.0 mg/dL Normal 8.5-10.1 [facility] Comment on above: Performed By: #### PTT, PT #### [facility] [address] [place] [address] Dr. Artem Rojas Chloride [Moles/Vol] 104 mmol/L Normal 98-107 [facility] Comment on above: Performed By: #### PTT, PT #### [facility] [address] [place] [address] Dr. Artem Rojas CO2 [Moles/Vol] 25.8 mmol/L Normal 21.0-32.0 [facility] Comment on above: Performed By: #### PTT, PT #### [facility] [address] [place] [address] Dr. Artem Rojas Creatinine [Mass/Vol] 1.06 mg/dL Normal 0.70-1.30 [facility] Comment on above: Performed By: #### PTT, PT #### [facility] [address] [place] [address] Dr. Artem Rojas EGFR-AF ANGUILLAN >60 Normal >=60 [facility] Comment on above: Performed By: #### PTT, PT #### [facility] [address] [place] [address] [address] Artem Rojas EGFR-NON AF ANGUILLAN >60 Normal >=60 [facility] Comment on above: Performed By: #### PTT, PT #### [facility] [address] [place] [address] [address] Artem Rojas Globulin (S) [Mass/Vol] 2.8 g/dL Normal [facility] Comment on above: Performed By: #### PTT, PT #### [facility] [address] [place] [address] [address] Artem Rojas Glucose [Mass/Vol] 104 mg/dL Normal 74-106 [facility] Comment on above: Performed By: #### PTT, PT #### [facility] [address] [place] [address] Dr. Artem Rojas Potassium [Moles/Vol] 4.6 mmol/L Normal 3.5-5.1 [facility] Comment on above: Performed By: #### PTT, PT #### [facility] [address] [place] [address] Dr. Artem Rojas Protein [Mass/Vol] 6.4 g/dL Normal 6.4-8.2 [facility] Comment on above: Performed By: #### PTT, PT #### [facility] [address] [place] [address] Dr. Artem Rojas Sodium [Moles/Vol] 138 mmol/L Normal 136-145 [facility] Comment on above: Performed By: #### PTT, PT #### [facility] [address] [place] [address] Dr. Artem Rojas Urea nitrogen [Mass/Vol] 13.0 mg/dL Normal 7.0-18.0 [facility] Comment on above: Performed By: #### PTT, PT #### [facility] [address] [place] [address] Dr. Artem Rojas Urea nitrogen/Creatin ine [Mass ratio] 12.3 mg/mg Normal [facility] Comment on above: Performed By: #### PTT, PT #### [facility] [address] [place] [address] Dr. Artem Rojas PROTIMEon 03-02-2022 INR Coag (PPP) [Relative time] 1.23 {INR} Normal [facility] Comment on above: Performed By: #### PTT, PT #### [facility] [address] [place] [address] Dr. Artem Rojas INR GUIDELINES SEE BELOW Normal [facility] Comment on above: Result Comment: DESIRED INR: 2.0 - 3.0 C ONDITIONS NOT LISTED BELOW 2.5 - 3.5 FOR PROSTHETIC HEART VALVE REPLACEMENT 2.5 - 3.5 RECURRENT THROMBOSIS Performed By: #### P TT, PT #### [facility] [address] [place] [address] Dr. Artem Rojas PT Coag (PPP) [Time] 13.1 s Critically high 9.0-11.6 [facility] Comment on above: Performed By: #### PTT, PT #### [facility] [address] [place] [address] Dr. Artem Rojas PTTon 03-02-2022 aPTT Coag (Bld) [Time] 28.5 s Normal 22.3-36.2 [facility] Comment on above: Performed By: #### PTT, PT #### [facility] [address] [place] [address] Dr. Artem Rojas XR KNEE RT 1_2 [...] MATTHEW CHADWICK Date: 2022-03-02 20:49 Normal [facility] OVA AND PARASITE EXAMINATION on 01-18-2022 Ova + Parasite Exam Final report Normal [facility] Comment on above: Result Comment: These results were obtai ricardo using wet preparation(s) and trichrome stained smear. This test does not include testing for Cryptosporidium parvum, Cyclospora, or Microsporidia. Performed By: #### P TT, PT #### [facility] [address] [place] [address] Dr. Artem Rojas Result 1 Comment Normal [facility] Comment on above: Result Comment: No ova, cysts, or parasi alise seen. . One negative specimen does not rule out the possibility of a parasitic infection. Performed By: #### P TT, PT #### [facility] [address] [place] [address] Dr. Artem Rojas GI PANEL (PCR)on 01-14-2022 Adenovirus F 40/41 Not detected Normal NOT DETECTED [facility] Comment on above: Performed By: #### PTT, PT #### [facility] [address] [place] [address] Dr. Artem Rojas Astrovirus Not detected Normal NOT DETECTED [facility] Comment on above: Performed By: #### PTT, PT #### [facility] [address] [place] [address] Dr. Artem Rojas C. Diff toxin A/B Not detected Normal NOT DETECTED [facility] Comment on above: Performed By: #### PTT, PT #### [facility] [address] [place] [address] Dr. Artem Rojas Campylobacter Not detected Normal NOT DETECTED [facility] Comment on above: Performed By: #### PTT, PT #### [facility] [address] [place] [address] Dr. Artem Rojas Cryptosporidium Not detected Normal NOT DETECTED [facility] Comment on above: Performed By: #### PTT, PT #### [facility] [address] [place] [address] Dr. Artem Rojas Cyclos. Cayetanensis Not detected Normal NOT DETECTED [facility] Comment on above: Performed By: #### PTT, PT #### [facility] [address] [place] [address] Dr. Artem Rojas E. Coli O157 Not Applicable Normal Not Applicable [facility] Comment on above: Performed By: #### PTT, PT #### [facility] [address] [place] [address] Dr. Artem Rojas E. histolytica Not detected Normal NOT DETECTED [facility] Comment on above: Performed By: #### PTT, PT #### [facility] [address] [place] [address] Dr. Artem Rojas EAEC Not detected Normal NOT DETECTED [facility] Comment on above: Performed By: #### PTT, PT #### [facility] [address] [place] [address] Dr. Artem Rojas EIEC Not detected Normal NOT DETECTED [facility] Comment on above: Performed By: #### PTT, PT #### [facility] [address] [place] [address] Dr. Artem Rojas EPEC Not detected Normal NOT DETECTED [facility] Comment on above: Performed By: #### PTT, PT #### [facility] [address] [place] [address] Dr. Artem Rojas ETEC Not detected Normal NOT DETECTED [facility] Comment on above: Performed By: #### PTT, PT #### [facility] [address] [place] [address] Dr. Artem Rojas G. Lamblia Not detected Normal NOT DETECTED [facility] Comment on above: Performed By: #### PTT, PT #### [facility] [address] [place] [address] Dr. Artem RABAGOL CONTROLS PASSED Normal [facility] Comment on above: Performed By: #### PTT, PT #### [facility] [address] [place] [address] Dr. Artem DAVIS TIA HEADER GI PANEL BACTERIA Normal [facility] Comment on above: Performed By: #### PTT, PT #### [facility] [address] [place] [address] Dr. Artem DAVISHD ECOLI GI PANEL DIARRHEAGEN IC E.COLI / SHIGELLA Normal [facility] Comment on above: Performed By: #### PTT, PT #### [facility] [address] [place] [address] [address] Artem ARELLANO INFO SEE BELOW Normal [facility] Comment on above: Result Comment: EAEC- Enteroaggregative E. Coli EPEC- Enteropathogenic E. Coli ETEC- Enterotoxigenic E. Coli lt/st STEC- Shigella-like toxin-producing E. Coli stx1/stx2 EIEC- Shigella/Enteroinvasive E. Coli Performed By: #### P TT, PT #### [facility] [address] [place] [address] [address] Artem ARELLANO PARASITES GI PANEL PARASITES Normal [facility] Comment on above: Performed By: #### PTT, PT #### [facility] [address] [place] [address] Dr. Artem ARELLANO VIRUS GI PANEL VIRUSES Normal [facility] Comment on above: Performed By: #### PTT, PT #### [facility] [address] [place] [address] Dr. Artem Rojas Norovirus GI/GII Not detected Normal NOT DETECTED [facility] Comment on above: Performed By: #### PTT, PT #### [facility] [address] [address] [address] Artem Molina. Shigelloides Not detected Normal NOT DETECTED [facility] Comment on above: Performed By: #### PTT, PT #### [facility] [address] [place] [address] Dr. Artem Rojas Rotavirus A Not detected Normal NOT DETECTED [facility] Comment on above: Performed By: #### PTT, PT #### [facility] [address] [place] [address] [address] Aretm Rojas Salmonella Not detected Normal NOT DETECTED [facility] Comment on above: Performed By: #### PTT, PT #### [facility] [address] [place] [address] Dr. Artem Rojas Sapovirus Not detected Normal NOT DETECTED [facility] Comment on above: Performed By: #### PTT, PT #### [facility] [address] [place] [address] [address] Artem Rojas STEC Not detected Normal NOT DETECTED [facility] Comment on above: Performed By: #### PTT, PT #### [facility] [address] [place] [address] [address] Artem Rojas Vibrio Not detected Normal NOT DETECTED [facility] Comment on above: Performed By: #### PTT, PT #### [facility] [address] [place] [address] Dr. Artem Rojas Vibrio Cholera Not detected Normal NOT DETECTED [facility] Comment on above: Performed By: #### PTT, PT #### [facility] [address] [place] [address] [address] Artem Rojas Y. Enterocolitica Not detected Normal NOT DETECTED [facility] Comment on above: Performed By: #### PTT, PT #### [facility] [address] [place] [address] Dr. Artem Rojas Consultation Noteon 06-03-20 Consultation Note [id number]:127 Normal [facility] RAD - MISCon 06-03-2021 RAD - MISC [id number]#[id number]:127 Normal [facility] Glucose Poct Glucometerson 0 01-10-2021 Glucose [Mass/Vol] 108 mg/dL Normal [facility] Comment on above: Result Comment: Random Glucose Reference Range is dependent on time and content of last meal. Glucose of more than 200 mg/dL in a nonstressed, ambulatory subject supports the diagnosis of Diabetes Mellitus. PERFORMED BY: [address] [place] [address] [place] [address] PATHOLOGIST [employer] CARVER SARY APARICIO M.D. Performed By: #### G SAMMIE #### Point of Care testing , [facility] 01-10-2021 L Specimen: [id number] Received: 01/10/21 Status: WILFREDO Iglesias Num: [id number] Spec Type: Surgical Subm Dr: Shane Snell MD Tissues: A Colon - Polyp (CECUM) B Colon - Polyp (SIGMOID) Procedures: HE Stain/4, Gross/Micro L4/2 Patient Age/Sex Location Account Attending Physician Desean Landry JR 80/M [id number] Shane Snell MD SPEC NUM: [id number] RECD: 01/10/21 STATUS: WILFREDO DELANEYTk NUM: [id number] MICAH: 01/10/21- [facility] DR: Shane Snell MD ENTERED: 01/10/21 BRYANT VALERIO: SPEC TYPE: Surgical DEPT: S ORDERED: HE [...] findings support the above pathologic diagnosis. Specimen: [id number] Received: 01/10/21 Status: WILFREDO Iglesias Num: [id number] Spec Type: Surgical Subm Dr: Shane Snell MD Tissues: A Colon - Polyp (CECUM) B Colon - Polyp (SIGMOID) Procedures: HE Stain/4, Gross/Micro L4/2 Patient: Desean Landry JR [id number] ([facility]) Specimen: [id number] Received: 01/10/21 (Continued) Signed (signature on file) Randi Ji MD 01/11/21 1809 Specimen: Received: 01/10/21 Status: WILFREDO Kelsie Num: [id number] Spec Type: Surgical Subm Dr: Shane Snell MD Tissues: A Colon - Polyp (CECUM) B Colon - Polyp (SIGMOID) Procedures: JUDIE Stain/4, Gross/Madi L4/2 Patient: Desean Landry JR [id number] (Continued) Specimen: Received: 01/10/21 (Continued) CPT Codes 85281?2 Specimen: [id number] Received: 01/10/21 Status: WILFREDO Iglesias Num: [id number] Spec Type: Surgical Subm Dr: Shane Snell MD Tissues: A Colon - Polyp (CECUM) B Colon - Polyp (SIGMOID) Procedures: JUDIE Stain/4, Gross/Micro L4/2 Patient: Desean Landry JR [id number] (Continued) Signed (signature on file) Randi Ji MD 01/11/21 1809 [facility] CNCOon 04-13-2018 CNCO Letter TextOctober 2017[address] [place], [place] [address]ZOUL: Rocky Landry NO.: [id number] OF SERVICE: 04/06/2018Dept. of Pulmonary and Critical Care MedicineDear Mr. Landry,Attached please find a copy of your CAT scan chest report from March.Please contact me if I can contribute further in your health care management.Best regards.Yours sincerely,Cesar Rowley M.D., F.C.C.P.HC:lmEnclosure Normal [facility] CT CHEST WO IVCONon 04-06-[address] CHEST WO IVCON * * *Final Report* * *DATE OF EXAM: Apr 06 2018 12:50PM [facility] 0541 - CT CHEST WO [...] any questions regarding this interpretation, please call [phone].If you are unable to reach us at the number above,please feel free to contact [facility] at [phone] ACN Normal [facility] PROGRESSon 04-06-2018 Protein mass conc HNO ID: [id number]: Venita Lr: (none)Author Type: (none)Type: Progress NotesFiled: 04/06/2018 12:57 PMNote Text: Radiology Service Progress NotePATIENT NAME: Desean LandryMRN: [id number] OF SERVICE: April 06, 2018TIME: 12:28 PMPATIENT IDENTITY VERIFICATION COMPLETED USING TWO (2) METHODS: Patientconfirmed name verbally and ID band matches..PATIENT GENDER DATA: MalePATIENT RELEVANT IMPLANT DATA REVIEWED: Not ApplicableRADIOLOGY DEPARTMENT: CT; Exam(s) Completed: ChestPERIPHERAL IV DATA: Not applicableSIGNED BY: Venita Latham2017 12:28 PM Normal [facility] CNOVon 09-10-2017 CNOV Office Visit (PULMMN) SA SHAILA LANDRY ([id number]) 1940 MDate Time Provider Department09/10/17 9:55 AM CESAR ROWLEY During your visit today, we recorded the following information about you: Temperature Pulse Respiration Blood pressure 97.7 degrees 75/minute 18/minute 125/68 Weight Height 90.3 kg 1.753 Ritika Rowley MD 09/10/2017 12:26 PM SignedPULMONARY CLINICPATIENT NAME: Desean aLndryMRN: [id number] CARE PHYSICIAN: Diogenes Casiano, MDCommunication will be [...] No ronchi. No ralesCARDIAC: normal S1 and J0FRHWKVV: Abdomen soft.EXTREMETIES: No deformities. No LE edema. [...] [J98.11] Pleural calcification [J94.8]Order(s):CT CHEST WO IVCON [[id number]] Order #: [id number] FUTUREProblem List As Of Date: 09/10/2017(None)Disposition: Return in about 6 months (around 03/13/2018).Follow-up and Disposition History RecordedEncounter Number: [id number] Status:Closed by CESAR ROWLEY MD on 09/10/17 Normal [facility] CT CHEST WO IVCONon 09-11-19 CT CHEST WO IVCON * * *Final Report* * *DATE OF EXAM: Sep 10 2017 9:05AM [facility] 0541 - CT [...] 6 mm. Three-month imaging follow-up suggested for reevaluation.Software Test Technician: AMILCAR Transcribe Date/Time: Sep 10 2017 9:58ADictated by : CHRISTY MULTANI MDThis examination was interpreted and the report reviewed and electronically signed by: CHRISTY MULTANI MD on Sep 10 2017 2:48PM [id number] Normal [facility] PROGRESSon 09-10-2017 Protein mass conc HNO ID: [id number]: Cesar Taylore: (none)Author Type: PhysicianType: Progress NotesFiled: 09/10/2017 12:26 PMNote Text:PULMONARY CLINICPATIENT NAME: Desean LandryMRN: [id number] CARE PHYSICIAN: Diogenes Casiano, MDCommunication will be [...] wheezing. No ronchi. NoralesCARDIAC: normal S1 and O5MDOGTVP: Abdomen soft.EXTREMETIES: No deformities. No LE edema. [...] chest images independently.RTC in 6-12 months.Cesar Rowley, [facility]ulmonary [facility] Critical Care MedicineDATE: September 10, 2017TIME: 9:30 AM Normal [facility] Protein mass conc HNO ID: [id number]: Srinath Purcell CTS (Ct)ervice: RadiologyAuthor Type: Clinical TechnicianType: Progress NotesFiled: 09/10/2017 9:03 AMNote Text: Radiology Service Progress NotePATIENT NAME: Desean LandryMRN: [id number] OF SERVICE: September 10, 2017TIME: 9:03 AMPATIENT IDENTITY VERIFICATION COMPLETED USING TWO (2) METHODS: Patientconfirmed name verbally and ID band matches..PATIENT GENDER DATA: MalePATIENT RELEVANT IMPLANT DATA REVIEWED: YesRADIOLOGY DEPARTMENT: CT; Exam(s) Completed: ChestPERIPHERAL IV DATA: Not applicableSIGNED BY: MANINDER LinUniversity Hospitals Health System 2017 9:03 AM Normal [facility] HISTORY PHYSICALon 8 HISTORY PHYSICAL HNO ID: [id number] thor: Cesar Jose: (none)Author Type: PhysicianType: HANDPFiled: 07/23/2017 5:35 PMNote Text:PULMONARY CONSULTPATIENT NAME: Desean LandryMRN: [id number] FOR CONSULT: Pleural effusionREQUESTING PHYSICIAN: Diogenes Casiano [facility] PH[facility]IAN: Diogenes Casiano, [facility] [place] [facility] [place]munication will be sent via [place] mail or shared electronic medicalrecordsHISTORY OF PRESENT ILLNESS: Mr. 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 Unable to make his own medical decision.He lives by himself but currently admitted at a SNF. He has a legalguardian Blanca Sofia phone # [phone].In June he was found on the floor [...] evaluation anddecided to pursue further evaluation at [facility].Since hospital discharge, he has been at [...] MedicineDATE: July 23, 2017TIME: 12:12 PM Normal [facility] PROGRESSon 07-23-2017 Protein mass conc HNO ID: [id number]: Colleen Ceballos RtService: (none)Author Type: (none)Type: Progress NotesFiled: 07/23/2017 11:16 AMNote Text: Radiology Service Progress NotePATIENT NAME: Desean LandryMRN: [id number] OF SERVICE: July 23, 2017TIME: 11:16 AMPATIENT IDENTITY VERIFICATION COMPLETED USING TWO (2) METHODS: Patientconfirmed name verbally and Date of .PATIENT GENDER DATA: MalePATIENT RELEVANT IMPLANT DATA REVIEWED: Not ApplicableRADIOLOGY DEPARTMENT: General X-ray: Exam(s) Completed: Chest X-RayPERIPHERAL IV DATA: Not applicableSIGNED BY: Colleen Ceballos RtFe2017 11:16 AM [facility] XR CHEST 2V FRONTAL/LATon XR CHEST [...] is tortuous with atherosclerotic calcifications.Other:IMPRESSION: As aboveTranscriptionist: PSCBenjamin Transcribe Date/Time: Jul 23 2017 3:23PDictated by : BELL ARMENTA MDThis examination was interpreted and the report reviewed and electronically signed by: BELL ARMENTA MD on Jul 23 2017 3:24PM [id number] Normal [facility] HOSPon 07-21-2017 HOSP Patient:Desean Landry MRN: [...] Radiology Service Progress NotePATIENT NAME: Desean LandryMRN: [id number] OF SERVICE: July 23, 2017TIME: 11:16 AMPATIENT IDENTITY VERIFICATION COMPLETED USING TWO (2) METHODS: Patientconfirmed name verbally and Date of .PATIENT GENDER DATA: MalePATIENT RELEVANT IMPLANT DATA REVIEWED: Not ApplicableRADIOLOGY DEPARTMENT: General X-ray: Exam(s) Completed: Chest X-RayPERIPHERAL IV DATA: Not applicableSIGNED BY: Colleen Ceballos RtFebruary 2017 11:16 AMProgress Notes (HOSP [facility] PUL[facility] H23):Latoya Mohamud, RN, RN 07/22/2017 10:35 AM Signed07/22/2017: Navigator contacted [facility] ([phone] x [phone]) toobtain recent labs. Ticket Collector will fax labs and medication list. Craig also have a copies of this sent with him to his appointments. Normal [facility] Cristhian 07-16-2017 FANNYN Telephone (PULMMN) SA SHAILA LNADRY ([id number]) 1940 MDate Time Provider Department07/16/17 CESAR ROWLEY During your visit today, we recorded the following information about you:Kristie Vallejo 07/16/2017 2:35 PM Signedcxr report to FANNY.Italo Mora CNP 07/17/2017 12:47 PM SignedCXR 07/13/2017StableAllergies As of Date: 07/16/2017(No Known Allergies)Date Reviewed: 07/14/2017Reviewed by: Kim Walker (Fel) - Fully AssessedReason for Visit: Received Outside Medical Records [[id number]]Problem List As Of Date: 07/16/2017(None) Status:Closed by KRISTIE ANDRADE on 07/16/17 [facility] BASIC METABOLIC PANELon - Calcium 8.5 mg/dL Low 8.6-10.3 [facility] Comment on above: Order Comment: No: Do not add to previou s draw Performed By: #### 4 1000, 15466, 08645, 06058, 10464 ####[facility] [place] [address], [facility] Chloride 104 mmol/L Normal 98-107 [facility] Comment on above: Order Comment: No: Do not add to previou s draw Performed By: #### 4 1000, 85466, 60455, 20677, 72022 ####[facility] [place] [address], [facility] CO2 30 mmol/L Normal 21-31 [facility] Comment on above: Order Comment: No: Do not add to previou s draw Performed By: #### 4 1000, 62578, 46421, 47875, 79185 ####[facility] [place] [address], [facility] Creatinine 0.94 mg/dL Normal 0.70-1.30 [facility] Comment on above: Order Comment: No: Do not add to previou s draw Performed By: #### 4 1000, 89801, 96416, 54269, 40600 ####[facility] eGFR (black) mL/min/{1.73_m2} Normal >60 [facility] Comment on above: Order Comment: No: Do not add to previou s draw Result Comment: Calc ulation may not be valid for patients over 70 years Performed By: #### 4 1000, 04522, 35677, 19251, 66631 ####[facility] [place] [address], [facility] eGFR (non-black) mL/min/{1.73_m2} Normal >60 [facility] Comment on above: Order Comment: No: Do not add to previou s draw Result Comment: Calc ulation may not be valid for patients over 70 years Performed By: #### 4 1000, 09584, 92615, 97248, 06999 ####[facility] [place] [address], [facility] Glucose mass conc 98 mg/dL Normal 70-100 [facility] Comment on above: Order Comment: No: Do not add to previou s draw Performed By: #### 4 1000, 36257, 92216, 80702, 30006 ####[facility] [place] [address], [facility] Potassium molar conc 4.3 mmol/L Normal 3.5-5.1 [facility] Comment on above: Order Comment: No: Do not add to previou s draw Performed By: #### 4 1000, 28769, 30597, 34951, 62261 ####[facility] Sodium 141 mmol/L Normal 136-145 [facility] Comment on above: Order Comment: No: Do not add to previou s draw Performed By: #### 4 1000, 49666, 07671, 29911, 16424 ####[facility] [facility] Urea nitrogen 17 mg/dL Normal 7-25 [facility] Comment on above: Order Comment: No: Do not add to previou s draw Performed By: #### 4 1000, 50754, 65977, 30229, 70673 ####[facility] [place] [address], [facility] CBC W/DIFFon 06-20-2017 Basophils Auto #/vol (Bld) 0.5 % Normal 0.0-2.0 [facility] Comment on above: Performed By: #### 58823, 71484, 29151, 15567, 94227 ####[facility] [place] [address], [facility] Eosinophils/100 leukocytes 3.6 % Normal 0.0-5.0 [facility] Comment on above: Performed By: #### 42660, 70141, 84084, 14798, 73967 ####[facility] Erythrocyte distribution width Auto Ratio (RBC) 14.2 % Normal 11.5-16.9 [facility] Comment on above: Performed By: #### 76474, 61520, 54570, 01488, 87945 ####[facility] Erythrocytes (RBC) 4.19 mill/mm3 Low 4.30-5.90 [facility] Comment on above: Performed By: #### 30205, 91644, 16901, 13330, 25904 ####[facility] Hematocrit (HCT) 39.9 % Normal 39.0-55.0 [facility] Comment on above: Performed By: #### 34391, 62462, 79751, 37086, 13296 ####[facility] Hemoglobin mass conc (Bld) 13.6 g/dL Low 13.9-16.3 [facility] Comment on above: Performed By: #### 16013, 98428, 30595, 53571, 49596 ####[facility] [place] [address], [facility] Lymphocytes/100 leukocytes 15.7 % Low 20.0-40.0 [facility] Comment on above: Performed By: #### 31278, 76282, 61075, 38147, 62907 ####[facility] [place] [address], [facility] MCH 32.4 pg High 24.0-32.0 [facility] Comment on above: Performed By: #### 51999, 21693, 99658, 10290, 89215 ####[facility] [place] [address], [facility] MCHC mass conc (RBC) 34.0 g/dL Normal 32.0-36.0 [facility] Comment on above: Performed By: #### 19067, 19977, 92467, 95984, 47938 ####[facility] [place] [address], [facility] MCV 95.3 fL Normal 80.0-100.0 [facility] Comment on above: Performed By: #### 48090, 63157, 14083, 73118, 58757 ####[facility] [place] [address], [facility] METHOD Normal RBC Morphology Normal [facility] Comment on above: Performed By: #### 43873, 44766, 50164, 83639, 68130 ####[facility] [place] [address], [facility] MONOS 9.9 % High 2-8 [facility] Comment on above: Performed By: #### 69181, 00665, 84026, 90595, 60464 ####[facility] [place] [address], [facility] Neutrophils/100 leukocytes 70.3 % High 50-70 [facility] Comment on above: Performed By: #### 35410, 58539, 56268, 20542, 15258 ####[facility] [place] [address], [facility] PLAT CNT 193 Thou/mm3 Normal 100-400 [facility] Comment on above: Performed By: #### 87723, 52676, 50658, 72489, 83206 ####[facility] [place] [address], [facility] WBC (Leukocytes) 8.7 Thou/mm3 Normal 4.0-10.0 [facility] Comment on above: Performed By: #### 42008, 08029, 37809, 03057, 58991 ####[facility], [place] [address] Dis[facility] Summaryon 06-20-19 Discharge Summary MR#: [id number] [facility] Desean Landry Admitted: 06/13/2017 Discharged: 06/20/2017 Date of : 1940 Physician: Diogenes Henry M.D. DISCHARGE SUMMARYPRIMARY DIAGNOSIS: Rhabdomyolysis secondary to prolonged immobilization.SECONDARY DIAGNOSES:1. History of atrial fibrillation.2. Right sided Posterior Calcified pleural plaques.3. Right-sided loculated pleural effusion.CONSULTS: CT Surgery, Pulmonary.PROCEDURES: None.SUMMARY OF HOSPITAL COURSE: Mr. Landry is a 76-year-old male, who presentedto [facility] ED with complaints of being found [...] EMS was contacted and brought the patient [facility]. Initial workup was notable for severe rhabdomyolysis,and the patient was transferred to [facility]. He has a past medical historysignificant [...] not have a biopsy performed whilehospitalized at [facility].His CK and myoglobin continue to trend downward, and he was deemed stableat the time of discharge.He will need to follow [facility] with [facility] for continuedmanagement of his pleural effusions concerning [...] continueto follow up with Dr. Rowley at [facility] for continued management ofthe pleural effusions that [...] 06/19/2017/05:47 P/Jarad Ayon MDDate Trans: 06/20/2017 04:29 P/mmoDN_JN:[id number]: Diogenes Casiano M.D. [address] [place] [address] Normal [facility] MAGNESIUM BLOODon 06-20-2017 Magnesium 2.0 mg/dL Normal 1.9-2.7 [facility] Comment on above: Order Comment: No: Do not add to previou s draw Performed By: #### 4 1000, 74455, 82090, 82587, 10758 ####[facility] [place] [address], [facility] PHOSPHORUS BLOODon 8 Phosphate 3.5 mg/dL Normal 2.5-5.0 [facility] Comment on above: Order Comment: No: Do not add to previou s draw Performed By: #### 4 1000, 93350, 67016, 76485, 17108 ####[facility], [place] [id number] [place] [address] BASIC METABOLIC PANELon Calcium 8.5 mg/dL Low 8.6-10.3 [facility] Comment on above: Order Comment: No: Do not add to previou s draw Performed By: #### 4 1000, 06998, 81485, 58689, 67557 ####[facility] [place] [address], [facility] Chloride 105 mmol/L Normal 98-107 [facility] Comment on above: Order Comment: No: Do not add to previou s draw Performed By: #### 4 1000, 54593, 53927, 32108, 90695 ####[facility] [place] [address], [facility] CO2 26 mmol/L Normal 21-31 [facility] Comment on above: Order Comment: No: Do not add to previou s draw Performed By: #### 4 1000, 67962, 22242, 59127, 65827 ####[facility] Creatinine 0.95 mg/dL Normal 0.70-1.30 [facility] Comment on above: Order Comment: No: Do not add to previou s draw Performed By: #### 4 1000, 76411, 47972, 09061, 67002 ####[facility] eGFR (black) mL/min/{1.73_m2} Normal >60 [facility] Comment on above: Order Comment: No: Do not add to previou s draw Result Comment: Calc ulation may not be valid for patients over 70 years Performed By: #### 4 1000, 26951, 08427, 81235, 31037 ####[facility] eGFR (non-black) mL/min/{1.73_m2} Normal >60 [facility] Comment on above: Order Comment: No: Do not add to previou s draw Result Comment: Calc ulation may not be valid for patients over 70 years Performed By: #### 4 1000, 16533, 05497, 43823, 96758 ####[facility] [place] [address], [facility] Glucose mass conc 102 mg/dL High 70-100 [facility] Comment on above: Order Comment: No: Do not add to previou s draw Performed By: #### 4 1000, 64457, 04965, 37478, 28269 ####[facility] [place] [address], [facility] Potassium molar conc 3.7 mmol/L Normal 3.5-5.1 [facility] Comment on above: Order Comment: No: Do not add to previou s draw Performed By: #### 4 1000, 39447, 39777, 09232, 70325 ####[facility] [place] [address], [place] Sodium 139 mmol/L Normal 136-145 [facility] Comment on above: Order Comment: No: Do not add to previou s draw Performed By: #### 4 1000, 30194, 90124, 63637, 94002 ####[facility] Urea nitrogen 17 mg/dL Normal 7-25 [facility] Comment on above: Order Comment: No: Do not add to previou s draw Performed By: #### 4 1000, 27575, 02926, 27868, 37889 ####[facility] CBC W/DIFFon 06-19-2017 Basophils Auto #/vol (Bld) 0.5 % Normal 0.0-2.0 [facility] Comment on above: Order Comment: No: Do not add to previou s draw Performed By: #### 4 1000, 30407, 72493, 45848, 89253 ####[facility] Eosinophils/100 leukocytes 1.0 % Normal 0.0-5.0 [facility] Comment on above: Order Comment: No: Do not add to previou s draw Performed By: #### 4 1000, 87975, 25951, 24193, 17438 ####[facility] Erythrocyte distribution width Auto Ratio (RBC) 13.7 % Normal 11.5-16.9 [facility] Comment on above: Order Comment: No: Do not add to previou s draw Performed By: #### 4 1000, 35849, 77399, 01220, 97594 ####[facility] [place] [address], [facility] Erythrocytes (RBC) 4.33 mill/mm3 Normal 4.30-5.90 [facility] Comment on above: Order Comment: No: Do not add to previou s draw Performed By: #### 4 1000, 80175, 24725, 37560, 23271 ####[facility] [facility] Hematocrit (HCT) 41.5 % Normal 39.0-55.0 [facility] Comment on above: Order Comment: No: Do not add to previou s draw Performed By: #### 4 1000, 72563, 44333, 71977, 54491 ####[facility] Hemoglobin mass conc (Bld) 14.1 g/dL Normal 13.9-16.3 [facility] Comment on above: Order Comment: No: Do not add to previou s draw Performed By: #### 4 1000, 37841, 49494, 71948, 17310 ####[facility] [facility].[address] Lymphocytes/100 leukocytes 11.5 % Low 20.0-40.0 [facility] Comment on above: Order Comment: No: Do not add to previou s draw Performed By: #### 4 1000, 53467, 21911, 52162, 99423 ####[facility].[address] MCH 32.7 pg High 24.0-32.0 [facility] Comment on above: Order Comment: No: Do not add to previou s draw Performed By: #### 4 1000, 71601, 97250, 57454, 01126 ####[facility] MCHC mass conc (RBC) 34.1 g/dL Normal 32.0-36.0 [facility] Comment on above: Order Comment: No: Do not add to previou s draw Performed By: #### 4 1000, 43423, 22931, 46119, 84248 ####[facility] [place] [address], [facility] MCV 95.9 fL Normal 80.0-100.0 [facility] Comment on above: Order Comment: No: Do not add to previou s draw Performed By: #### 4 1000, 71921, 78701, 03646, 64436 ####[facility] [place] [address], [facility] METHOD Normal RBC Morphology Normal [facility] Comment on above: Order Comment: No: Do not add to previou s draw Performed By: #### 4 1000, 58842, 31529, 93033, 78981 ####[facility] [place] [address], [facility] MONOS 11.9 % High 2-8 [facility] Comment on above: Order Comment: No: Do not add to previou s draw Performed By: #### 4 1000, 34630, 29449, 69427, 24903 ####[facility] [place] [address], [facility] Neutrophils/100 leukocytes 75.1 % High 50-70 [facility] Comment on above: Order Comment: No: Do not add to previou s draw Performed By: #### 4 1000, 77935, 03720, 72342, 88867 ####[facility] [place] [address], [facility] PLAT CNT 192 Thou/mm3 Normal 100-400 [facility] Comment on above: Order Comment: No: Do not add to previou s draw Performed By: #### 4 1000, 43090, 04511, 11701, 12341 ####[facility] [place] [address], [facility] WBC (Leukocytes) 10.7 Thou/mm3 High 4.0-10.0 [facility] Comment on above: Order Comment: No: Do not add to previou s draw Performed By: #### 4 1000, 61496, 77755, 58564, 84437 ####[facility] [place] [address], [facility] CPKon 06-19-2017 Creatine kinase (CK) 252 U/L High 30-223 [facility] Comment on above: Performed By: #### 26948, 50118, 83585, 28486, 15595 ####[facility] [place] [address], [facility] MAGNESIUM BLOODon 06-19-2017 Magnesium 2.0 mg/dL Normal 1.9-2.7 [facility] Comment on above: Order Comment: No: Do not add to previou s draw Performed By: #### 4 1000, 08214, 54053, 99215, 49784 ####[facility] [place] [address], [facility] MYOGLOBINon 06-19-2017 Myoglobin 213 ng/mL Critically high 0-90 [facility] Comment on above: Result Comment: A DOUBLING OF VALUES FRO M SERIAL BLOOD COLLECTIONS(1 - 2 HOURS APART) IS MORE INDICATIVE OF A M.I.THAN THE ABSOLUTE VALUE. Performed By: #### 4 1000, 69872, 04871, 55980, 18915 ####[facility] [place] [address], [facility] PHOSPHORUS BLOODon 8 Phosphate 2.7 mg/dL Normal 2.5-5.0 [facility] Comment on above: Order Comment: No: Do not add to previou s draw Performed By: #### 4 1000, 52122, 49423, 92052, 21303 ####[facility] [address], [facility] ALBUMIN BLOODon 06-18-2017 Albumin 2.6 g/dL Low 3.5-5.7 [facility] Comment on above: Performed By: #### 09717, 06852, 13059, 82770, 35811 ####[facility] BASIC METABOLIC PANELon 01-0 Calcium 8.4 mg/dL Low 8.6-10.3 [facility] Comment on above: Order Comment: No: Do not add to previou s draw Performed By: #### 5 0608 ####[facility] [place] [address], [facility] Chloride 106 mmol/L Normal 98-107 [facility] Comment on above: Order Comment: No: Do not add to previou s draw Performed By: #### 5 0608 ####[facility] [place] [address], [facility] CO2 25 mmol/L Normal 21-31 [facility] Comment on above: Order Comment: No: Do not add to previou s draw Performed By: #### 5 0608 ####[facility] [place] [address], [facility] Creatinine 0.93 mg/dL Normal 0.70-1.30 [facility] Comment on above: Order Comment: No: Do not add to previou s draw Performed By: #### 5 0608 ####[facility] eGFR (black) mL/min/{1.73_m2} Normal >60 [facility] Comment on above: Order Comment: No: Do not add to previou s draw Result Comment: Calc ulation may not be valid for patients over 70 years Performed By: #### 5 0608 ####[facility] [place] [address], [facility] eGFR (non-black) mL/min/{1.73_m2} Normal >60 [facility] Comment on above: Order Comment: No: Do not add to previou s draw Result Comment: Calc ulation may not be valid for patients over 70 years Performed By: #### 5 0608 ####[facility] Glucose mass conc 106 mg/dL High 70-100 [facility] Comment on above: Order Comment: No: Do not add to previou s draw Performed By: #### 5 0608 ####[facility] Potassium molar conc 3.4 mmol/L Low 3.5-5.1 [facility] Comment on above: Order Comment: No: Do not add to previou s draw Performed By: #### 5 0608 ####[facility] Sodium 137 mmol/L Normal 136-145 [facility] Comment on above: Order Comment: No: Do not add to previou s draw Performed By: #### 5 0608 ####[facility]3000 [facility].[address] Urea nitrogen 21 mg/dL Normal 7-25 [facility] Comment on above: Order Comment: No: Do not add to previou s draw Performed By: #### 5 0608 ####[place] [address] [facility].[address] CBC W/DIFFon 06-18-2017 Basophils Auto #/vol (Bld) 0.9 % Normal 0.0-2.0 [facility] Comment on above: Order Comment: No: Do not add to previou s draw Performed By: #### 5 0608 ####[facility] Eosinophils/100 leukocytes 2.3 % Normal 0.0-5.0 [facility] Comment on above: Order Comment: No: Do not add to previou s draw Performed By: #### 5 0608 ####[facility] Erythrocyte distribution width Auto Ratio (RBC) 13.6 % Normal 11.5-16.9 [facility] Comment on above: Order Comment: No: Do not add to previou s draw Performed By: #### 5 0608 ####[facility] Erythrocytes (RBC) 4.37 mill/mm3 Normal 4.30-5.90 [facility] Comment on above: Order Comment: No: Do not add to previou s draw Performed By: #### 5 0608 ####[facility] Hematocrit (HCT) 42.0 % Normal 39.0-55.0 [facility] Comment on above: Order Comment: No: Do not add to previou s draw Performed By: #### 5 0608 ####[facility] Hemoglobin mass conc (Bld) 14.2 g/dL Normal 13.9-16.3 [facility] Comment on above: Order Comment: No: Do not add to previou s draw Performed By: #### 5 0608 ####[facility] Lymphocytes/100 leukocytes 15.2 % Low 20.0-40.0 [facility] Comment on above: Order Comment: No: Do not add to previou s draw Performed By: #### 5 0608 ####[facility] [place] [address], [facility] MCH 32.5 pg High 24.0-32.0 [facility] Comment on above: Order Comment: No: Do not add to previou s draw Performed By: #### 5 0608 ####[facility] [place] [address], [facility] MCHC mass conc (RBC) 33.8 g/dL Normal 32.0-36.0 [facility] Comment on above: Order Comment: No: Do not add to previou s draw Performed By: #### 5 0608 ####[facility] [place] [address], [facility] MCV 96.1 fL Normal 80.0-100.0 [facility] Comment on above: Order Comment: No: Do not add to previou s draw Performed By: #### 5 0608 ####[facility] [place] [address], [facility] METHOD Normal RBC Morphology Normal [facility] Comment on above: Order Comment: No: Do not add to previou s draw Performed By: #### 5 0608 ####[facility] [place] [address], [facility] MONOS 11.8 % High 2-8 [facility] Comment on above: Order Comment: No: Do not add to previou s draw Performed By: #### 5 0608 ####[facility] [place] [address], [facility] Neutrophils/100 leukocytes 69.8 % Normal 50-70 [facility] Comment on above: Order Comment: No: Do not add to previou s draw Performed By: #### 5 0608 ####[facility] [place] [address], [facility] PLAT CNT 168 Thou/mm3 Normal 100-400 [facility] Comment on above: Order Comment: No: Do not add to previou s draw Performed By: #### 5 0608 ####[facility] [place] [address], [facility] WBC (Leukocytes) 10.8 Thou/mm3 High 4.0-10.0 [facility] Comment on above: Order Comment: No: Do not add to previou s draw Performed By: #### 5 0608 ####[facility] [place] [address], [facility] CPKon 06-18-2017 Creatine kinase (CK) 586 U/L High 30-223 [facility] Comment on above: Performed By: #### 07411, 90129, 75747, 69127, 50683 ####[facility] [place] [address], [facility] MAGNESIUM BLOODon 06-18-2017 Magnesium 1.9 mg/dL Normal 1.9-2.7 [facility] Comment on above: Order Comment: No: Do not add to previou s draw Performed By: #### 5 0608 ####[facility] MYOGLOBINon 06-18-2017 Myoglobin 353 ng/mL Critically high 0-90 [facility] Comment on above: Result Comment: A DOUBLING OF VALUES FRO M SERIAL BLOOD COLLECTIONS(1 - 2 HOURS APART) IS MORE INDICATIVE OF A M.I.THAN THE ABSOLUTE VALUE. Performed By: #### 4 1000, 07426, 10494, 73342, 86982 ####[facility] [place] [address], [facility] PHOSPHORUS BLOODon 8 Phosphate 3.7 mg/dL Normal 2.5-5.0 [facility] Comment on above: Order Comment: No: Do not add to previou s draw Performed By: #### 5 0608 ####[facility] [place] [address], [facility] BASIC METABOLIC PANELon Calcium 8.4 mg/dL Low 8.6-10.3 [facility] Comment on above: Order Comment: No: Do not add to previou s draw Performed By: #### 5 0608 ####[facility] [place] [address], [facility] Chloride 110 mmol/L High 98-107 [facility] Comment on above: Order Comment: No: Do not add to previou s draw Performed By: #### 5 0608 ####[facility] [place] [address], [facility] CO2 25 mmol/L Normal 21-31 [facility] Comment on above: Order Comment: No: Do not add to previou s draw Performed By: #### 5 0608 ####[facility] [place] [address], [facility] Creatinine 0.95 mg/dL Normal 0.70-1.30 [facility] Comment on above: Order Comment: No: Do not add to previou s draw Performed By: #### 5 0608 ####[facility]3000 [facility].[address] eGFR (black) mL/min/{1.73_m2} Normal >60 [facility] Comment on above: Order Comment: No: Do not add to previou s draw Result Comment: Calc ulation may not be valid for patients over 70 years Performed By: #### 5 0608 ####[facility]3000 [facility].[address] eGFR (non-black) mL/min/{1.73_m2} Normal >60 [facility] Comment on above: Order Comment: No: Do not add to previou s draw Result Comment: Calc ulation may not be valid for patients over 70 years Performed By: #### 5 0608 ####[facility] [place] [address], [facility] Glucose mass conc 107 mg/dL High 70-100 [facility] Comment on above: Order Comment: No: Do not add to previou s draw Performed By: #### 5 0608 ####[facility] [place] [address], [facility] Potassium molar conc 3.5 mmol/L Normal 3.5-5.1 [facility] Comment on above: Order Comment: No: Do not add to previou s draw Performed By: #### 5 0608 ####[facility] Sodium 141 mmol/L Normal 136-145 [facility] Comment on above: Order Comment: No: Do not add to previou s draw Performed By: #### 5 0608 ####[facility] Urea nitrogen 23 mg/dL Normal 7-25 [facility] Comment on above: Order Comment: No: Do not add to previou s draw Performed By: #### 5 0608 ####[facility], [place] [id number] [place] [address] CBC COMPLETE BLOOD COUNTon 0 - Erythrocyte distribution width Auto Ratio (RBC) 13.7 % Normal 11.5-16.9 [facility] Comment on above: Order Comment: No: Do not add to previou s draw Performed By: #### 5 0608 ####[facility] [place] [address], [facility] Erythrocytes (RBC) 4.45 mill/mm3 Normal 4.30-5.90 [facility] Comment on above: Order Comment: No: Do not add to previou s draw Performed By: #### 5 0608 ####[facility] [place] [address], [facility] Hematocrit (HCT) 42.9 % Normal 39.0-55.0 [facility] Comment on above: Order Comment: No: Do not add to previou s draw Performed By: #### 5 0608 ####[facility] [place] [address], [facility] Hemoglobin mass conc (Bld) 14.3 g/dL Normal 13.9-16.3 [facility] Comment on above: Order Comment: No: Do not add to previou s draw Performed By: #### 5 0608 ####[facility] MCH 32.1 pg High 24.0-32.0 [facility] Comment on above: Order Comment: No: Do not add to previou s draw Performed By: #### 5 0608 ####[facility] MCHC mass conc (RBC) 33.3 g/dL Normal 32.0-36.0 [facility] Comment on above: Order Comment: No: Do not add to previou s draw Performed By: #### 5 0608 ####[facility]3000 [facility].[address] MCV 96.3 fL Normal 80.0-100.0 [facility] Comment on above: Order Comment: No: Do not add to previou s draw Performed By: #### 5 0608 ####[facility]3000 [facility].[address] PLAT CNT 138 Thou/mm3 Normal 100-400 [facility] Comment on above: Order Comment: No: Do not add to previou s draw Performed By: #### 5 0608 ####[facility] WBC (Leukocytes) 10.7 Thou/mm3 High 4.0-10.0 [facility] Comment on above: Order Comment: No: Do not add to previou s draw Performed By: #### 5 0608 ####[facility]3000 [facility].[address] MYOGLOBINon 06-17-2017 Myoglobin 700 ng/mL Critically high 0-90 [facility] Comment on above: Result Comment: A DOUBLING OF VALUES FRO M SERIAL BLOOD COLLECTIONS(1 - 2 HOURS APART) IS MORE INDICATIVE OF A M.I.THAN THE ABSOLUTE VALUE. Performed By: #### 5 0608 ####[address] LUMBAR SPINE WO CONTRA STon 06-16-[address] LUMBAR SPINE WO CONTRAST [facility] [address] [place] [address] Patient Name: DESEAN LANDRY : 1940ex: MAge: Race: WhiteMRN: [id number]. Location: [id number] Status: IVisit #: [id number] Date: 06/16/2017 10:45:00 AMCompleted Date: 06/16/2017 11:31 AMRequesting Provider: NADEEN SALCEDO Attending Provider: NADEEN SALCEDO Report Copy To: Signs & Symptoms: Back Pain (specify level)History: Patient history not availableComments: R/O Fractures, If Other selected, state reason for examExam: 3D CT LUMBAR SPINE WO CONTRASTAccession #: [id number] 3D CT LUMBAR SPINE WO CONTRAST 06/16/2017 [...] findings. Electronically signed by:Srinath Meyer. Transcribed by: [email or web address], User Resident: PAOLA WOLFElectronically Signed by: SRINATH MEYER @ 06/16/2017 12:13 PMI personally read this/these film(s) with this resident Normal [facility] Comment on above: Order Comment: No: Do not add to previou s draw 3D CT THORACIC SPINE [facility] THORACIC SPINE WO CONTRAST [facility] [address] [place] [address] Patient Name: DESEAN LANDRY : 1940ex: MAge: Race: WhiteMRN: [id number]. Location: [id number] Status: IVisit #: [id number] Date: 06/16/2017 10:45:00 AMCompleted Date: 06/16/2017 11:32 AMRequesting Provider: NADEEN SALCEDO Attending Provider: NADEEN SALCEDO Report Copy To: Signs & Symptoms: Back Pain (specify level)History: Patient history not availableComments: R/O Fractures, History of Fall and c/o Back Pain. Rule out fractureExam: 3D CT THORACIC SPINE WO CONTRASTAccession #: [id number] 3D CT THORACIC SPINE WO CONTRAST 06/16/2017 [...] findings. Electronically signed by:Srinath Meyer. Transcribed by: [email or web address], User Resident: CAN HARRISElectronically Signed by: SRINATH MEYER @ 06/16/2017 12:03 PMI personally read this/these film(s) with this resident Normal [facility] Comment on above: Order Comment: No: Do not add to previou s draw BASIC METABOLIC PANELon Calcium 7.9 mg/dL Low 8.6-10.3 [facility] Comment on above: Order Comment: No: Do not add to previou s draw Performed By: #### 0 0071, 38506 ####[facility] [place] [address], [facility] Chloride 112 mmol/L High 98-107 [facility] Comment on above: Order Comment: No: Do not add to previou s draw Performed By: #### 0 0071, 43498 ####[facility] [place] [address], [facility] CO2 22 mmol/L Normal 21-31 [facility] Comment on above: Order Comment: No: Do not add to previou s draw Performed By: #### 0 0071, 23826 ####[facility] [place] [address], [place] Creatinine 1.05 mg/dL Normal 0.70-1.30 [facility] Comment on above: Order Comment: No: Do not add to previou s draw Performed By: #### 0 0071, 16561 ####[facility] [place] [address], [place] eGFR (black) mL/min/{1.73_m2} Normal >60 [facility] Comment on above: Order Comment: No: Do not add to previou s draw Result Comment: Calc ulation may not be valid for patients over 70 years Performed By: #### 0 0071, 25604 ####[facility] eGFR (non-black) mL/min/{1.73_m2} Normal >60 [facility] Comment on above: Order Comment: No: Do not add to previou s draw Result Comment: Calc ulation may not be valid for patients over 70 years Performed By: #### 0 0071, 55384 ####[facility] [place] [address], [facility] Glucose mass conc 102 mg/dL High 70-100 [facility] Comment on above: Order Comment: No: Do not add to previou s draw Performed By: #### 0 0071, 91288 ####[facility] [place] [address], [facility] Potassium molar conc 4.0 mmol/L Normal 3.5-5.1 [facility] Comment on above: Order Comment: No: Do not add to previou s draw Performed By: #### 0 0071, 96321 ####[facility] [place] [address], [facility] Sodium 139 mmol/L Normal 136-145 [facility] Comment on above: Order Comment: No: Do not add to previou s draw Performed By: #### 0 0071, 13846 ####[facility] [place] [address], [facility] Urea nitrogen 20 mg/dL Normal 7-25 [facility] Comment on above: Order Comment: No: Do not add to previou s draw Performed By: #### 0 0071, 29390 ####[facility] BNP (B-TYPE NATRIURETIC PEPT DEANNE)on 06-16-2017 BNP 1298 pg/mL High 0-100 [facility] Comment on above: Order Comment: No: Do not add to previou s draw Result Comment: Give n the appropriate clinical setting a BNP result of >100 pg/mLindicates congestive heart failure. Performed By: #### 5 0608 ####[facility]3000 [facility].[address] CBC COMPLETE BLOOD COUNTon 0 06-16-2017 Erythrocyte distribution width Auto Ratio (RBC) 13.7 % Normal 11.5-16.9 [facility] Comment on above: Order Comment: No: Do not add to previou s draw Performed By: #### 0 0071, 69157 ####[facility]3000 [facility].[address] Erythrocytes (RBC) 4.24 mill/mm3 Low 4.30-5.90 [facility] Comment on above: Order Comment: No: Do not add to previou s draw Performed By: #### 0 0071, 37700 ####[facility]3000 [facility].[address] Hematocrit (HCT) 40.7 % Normal 39.0-55.0 [facility] Comment on above: Order Comment: No: Do not add to previou s draw Performed By: #### 0 0071, 89925 ####[facility]3000 [facility].[address] Hemoglobin mass conc (Bld) 13.6 g/dL Low 13.9-16.3 [facility] Comment on above: Order Comment: No: Do not add to previou s draw Performed By: #### 0 0071, 23552 ####[facility]3000 [facility].[address] MCH 32.1 pg High 24.0-32.0 [facility] Comment on above: Order Comment: No: Do not add to previou s draw Performed By: #### 0 0071, 60290 ####[facility] [place] [address], [facility] MCHC mass conc (RBC) 33.4 g/dL Normal 32.0-36.0 [facility] Comment on above: Order Comment: No: Do not add to previou s draw Performed By: #### 0 0071, 77464 ####[address] MCV 96.1 fL Normal 80.0-100.0 [facility] Comment on above: Order Comment: No: Do not add to previou s draw Performed By: #### 0 0071, 29368 ####[facility] PLAT CNT 120 Thou/mm3 Normal 100-400 [facility] Comment on above: Order Comment: No: Do not add to previou s draw Performed By: #### 0 0071, 23765 ####[address] WBC (Leukocytes) 10.3 Thou/mm3 High 4.0-10.0 [facility] Comment on above: Order Comment: No: Do not add to previou s draw Performed By: #### 0 0071, 66683 ####[address] CPKon 06-16-2017 Creatine kinase (CK) 2950 U/L Critically high 30-223 [facility] Comment on above: Performed By: #### 23840, 26482 ####[facility] [address] CR-PORTABLE CHEST 1 VIEW IMP Emeli 06-16-2017 CR-PORTABLE CHEST 1 VIEW IMPORT Images were obtained outside of [facility] [id number] Normal [facility] CT CHEST WO CONTRASTon 06-16 CT CHEST WO CONTRAST [facility] Center[facility] [address] [place] [address] Patient Name: DESEAN LANDRY : 2Sex: MAge: Race: WhiteMRN: [id number]. Location: [id number] Status: IVisit #: [id number] Date: 06/16/2017 5:25:00 PMCompleted Date: 06/16/2017 06:06 PMRequesting Provider: RAFFAELE GARCIA Attending Provider: NADEEN SALCEDO Report Copy To: Signs & Symptoms: Shortness of BreathHistory: Patient history not availableComments: R/O Pleural Effusion, please comment about pleural effusionExam: CT CHEST WO CONTRASTAccession #: [id number] CT CHEST WO CONTRAST 06/16/2017 6:06 PM [...] findings. Electronically signed by:Xiomara Christine. Transcribed by: [email or web address], User Resident: SUNITHA CAMACHOElectronically Signed by: XIOMARA CHRISTINE @ 06/17/2017 01:24 PMI personally read this/these film(s) with this resident Normal [facility] Comment on above: Order Comment: No: Do not add to previou s draw CT-3D CT LUMBAR SPINE WO CON TRAST IMPORTon 06-16-2017 CT-3D CT LUMBAR SPINE WO CONTRAST IMPORT Images were obtained outside of [facility] [id number] Normal [facility] CT-3D CT THORACIC SPINE WO C ONTRAST IMPORTon 06-16-2017 CT-3D CT THORACIC SPINE WO CONTRAST IMPORT Images were obtained outside of [facility] [id number] Normal [facility] CT-CT CHEST WO CONTRAST IMPO RTon 06-16-2017 CT-CT CHEST WO CONTRAST IMPORT Images were obtained outside of [facility] [id number] Normal [facility] MYOGLOBINon 06-16-2017 Myoglobin 872 ng/mL Critically high 0-90 [facility] Comment on above: Result Comment: A DOUBLING OF VALUES FRO M SERIAL BLOOD COLLECTIONS(1 - 2 HOURS APART) IS MORE INDICATIVE OF A M.I.THAN THE ABSOLUTE VALUE. Performed By: #### 0 0071, 57742 ####[facility] PORTABLE CHEST 1 VIEWon PORTABLE CHEST 1 VIEW [facility] [address] [place] [address] Patient Name: DESEAN LANDRY : 1940ex: MAge: Race: WhiteMRN: [id number]. Location: [id number] Status: IVisit #: [id number] Date: 06/16/2017 12:50:00 PMCompleted Date: 06/16/2017 01:22 PMRequesting Provider: NADEEN SALCEDO Attending Provider: NADEEN SALCEDO Report Copy To: Signs & Symptoms: O2 DesaturationHistory: Patient history not availableComments: R/O AspirationExam: PORTABLE CHEST 1 VIEWAccession #: [id number] PORTABLE CHEST 1 VIEW 06/16/2017 1:22 PM [...] chest. Electronically signed by:Srinath Meyer. Transcribed by: [email or web address], User Resident: Electronically Signed by: SRINATH MEYER @ 06/16/2017 01:25 PM Normal [facility] Comment on above: Order Comment: No: Do not add to previou s draw PROTHROMBIN TIMEon 8 INR Coag RelTime (PPP) 1.51 {INR} High 0.91-1.16 [facility] Comment on above: Order Comment: [...] OF ACTION, CLINICALEFFECTIVENESS, AND OPTIMAL THERAPEUTIC RANGE. [id number];108:[id number]. Performed By: #### 5 0608 ####[facility] Prothrombin time (PT) Coag time (PPP) 18.4 s High 12.3-14.8 [facility] Comment on above: Order Comment: No: Do not add to previou s draw Result Comment: ALL RESULTS MUST BE INTERPRETED WITH RESPECT TO BLOOD DRAWING ARTIFACTOR DILUTION ERROR OF ANTICOAGULANT AT THE TIME OF SAMPLING. Performed By: #### 5 0608 ####[facility] BASIC METABOLIC PANELon 01-0 Calcium 8.0 mg/dL Low 8.6-10.3 [facility] Comment on above: Order Comment: No: Do not add to previou s draw Performed By: #### 0 0071, 54995, 81054, 11695 ####[facility] Chloride 109 mmol/L High 98-107 [facility] Comment on above: Order Comment: No: Do not add to previou s draw Performed By: #### 0 0071, 77274, 96684, 22005 ####[facility] CO2 21 mmol/L Normal 21-31 [facility] Comment on above: Order Comment: No: Do not add to previou s draw Performed By: #### 0 0071, 93375, 89377, 42496 ####[facility] Creatinine 1.15 mg/dL Normal 0.70-1.30 [facility] Comment on above: Order Comment: No: Do not add to previou s draw Performed By: #### 0 0071, 04962, 91888, 80682 ####[facility] [place] [address], [facility] eGFR (black) mL/min/{1.73_m2} Normal >60 [facility] Comment on above: Order Comment: No: Do not add to previou s draw Result Comment: Calc ulation may not be valid for patients over 70 years Performed By: #### 0 0071, 96160, 45730, 64337 ####[facility] [place] [address], [facility] eGFR (non-black) mL/min/{1.73_m2} Normal >60 [facility] Comment on above: Order Comment: No: Do not add to previou s draw Result Comment: Calc ulation may not be valid for patients over 70 years Performed By: #### 0 0071, 99205, 31789, 55891 ####[facility] [place] [address], [facility] Glucose mass conc 117 mg/dL High 70-100 [facility] Comment on above: Order Comment: No: Do not add to previou s draw Performed By: #### 0 0071, 74191, 64288, 91277 ####[facility] [place] [address], [facility] Potassium molar conc 3.9 mmol/L Normal 3.5-5.1 [facility] Comment on above: Order Comment: No: Do not add to previou s draw Performed By: #### 0 0071, 52497, 61007, 74315 ####[facility] [place] [address], [facility] Sodium 138 mmol/L Normal 136-145 [facility] Comment on above: Order Comment: No: Do not add to previou s draw Performed By: #### 0 0071, 35882, 50037, 23773 ####[facility] [place] [address], [facility] Urea nitrogen 23 mg/dL Normal 7-25 [facility] Comment on above: Order Comment: No: Do not add to previou s draw Performed By: #### 0 0071, 52049, 00372, 51824 ####[facility], [place] [address] [place] [address] CBC COMPLETE BLOOD COUNTon 0 1-01-2018 Erythrocyte distribution width Auto Ratio (RBC) 13.7 % Normal 11.5-16.9 [facility] Comment on above: Order Comment: No: Do not add to previou s draw Performed By: #### 5 0608 ####[facility] [place] [address], [facility] Erythrocytes (RBC) 4.44 mill/mm3 Normal 4.30-5.90 [facility] Comment on above: Order Comment: No: Do not add to previou s draw Performed By: #### 5 0608 ####[facility] Hematocrit (HCT) 42.7 % Normal 39.0-55.0 [facility] Comment on above: Order Comment: No: Do not add to previou s draw Performed By: #### 5 0608 ####[facility] Hemoglobin mass conc (Bld) 14.5 g/dL Normal 13.9-16.3 [facility] Comment on above: Order Comment: No: Do not add to previou s draw Performed By: #### 5 0608 ####[facility] [place] [address], [facility] MCH 32.7 pg High 24.0-32.0 [facility] Comment on above: Order Comment: No: Do not add to previou s draw Performed By: #### 5 0608 ####[facility] [place] [address], [facility] MCHC mass conc (RBC) 34.0 g/dL Normal 32.0-36.0 [facility] Comment on above: Order Comment: No: Do not add to previou s draw Performed By: #### 5 0608 ####[facility] [place] [address], [facility] MCV 96.1 fL Normal 80.0-100.0 [facility] Comment on above: Order Comment: No: Do not add to previou s draw Performed By: #### 5 0608 ####[facility] [place] [address], [facility] PLAT CNT 134 Thou/mm3 Normal 100-400 [facility] Comment on above: Order Comment: No: Do not add to previou s draw Performed By: #### 5 0608 ####[facility] WBC (Leukocytes) 11.3 Thou/mm3 High 4.0-10.0 [facility] Comment on above: Order Comment: No: Do not add to previou s draw Performed By: #### 5 0608 ####[facility] CPKon 06-15-2017 Creatine kinase (CK) 7925 U/L Critically high 30-223 [facility] Comment on above: Order Comment: No: Do not add to previou s draw Performed By: #### 0 0071, 38157 ####[facility] MAGNESIUM BLOODon 06-15-2017 Magnesium 2.4 mg/dL Normal 1.9-2.7 [facility] Comment on above: Performed By: #### 81304, 38548 ####[facility] [facility] [place] [address], [facility] PHOSPHORUS BLOODon 8 Phosphate 2.6 mg/dL Normal 2.5-5.0 [facility] Comment on above: Performed By: #### 82992, 06079 ####[facility] [address] [place] [address], [facility] BASIC METABOLIC PANELon 12-3 Calcium 8.3 mg/dL Low 8.6-10.3 [facility] Comment on above: Order Comment: No: Do not add to previou s draw Performed By: #### 4 1000, 71455, 09311, 36392, 95885 ####[facility] [place] [address], [facility] Chloride 107 mmol/L Normal 98-107 [facility] Comment on above: Order Comment: No: Do not add to previou s draw Performed By: #### 4 1000, 87138, 67050, 02919, 61632 ####[facility] [place] [address], [facility] CO2 23 mmol/L Normal 21-31 [facility] Comment on above: Order Comment: No: Do not add to previou s draw Performed By: #### 4 1000, 61116, 77981, 64279, 06892 ####[facility] Creatinine 1.25 mg/dL Normal 0.70-1.30 [facility] Comment on above: Order Comment: No: Do not add to previou s draw Performed By: #### 4 1000, 84085, 12854, 82056, 84886 ####[facility] eGFR (black) mL/min/{1.73_m2} Normal >60 [facility] Comment on above: Order Comment: No: Do not add to previou s draw Result Comment: Calc ulation may not be valid for patients over 70 years Performed By: #### 4 1000, 95773, 35172, 86075, 29615 ####[facility] [place] [address], [facility] eGFR (non-black) 56 ml/min/1.73sq m Abnormal >60 [facility] Comment on above: Order Comment: No: Do not add to previou s draw Result Comment: Calc ulation may not be valid for patients over 70 years Performed By: #### 4 1000, 70658, 45567, 33787, 28595 ####[facility] [place] [address], [facility] Glucose mass conc 109 mg/dL High 70-100 [facility] Comment on above: Order Comment: No: Do not add to previou s draw Performed By: #### 4 1000, 54229, 90549, 63056, 28960 ####[facility] [place] [address], [facility] Potassium molar conc 4.3 mmol/L Normal 3.5-5.1 [facility] Comment on above: Order Comment: No: Do not add to previou s draw Performed By: #### 4 1000, 91079, 76242, 29948, 65519 ####[facility] [place] [address], [facility] Sodium 136 mmol/L Normal 136-145 [facility] Comment on above: Order Comment: No: Do not add to previou s draw Performed By: #### 4 1000, 85834, 02232, 51733, 46900 ####[facility] [place] [address], [facility] Urea nitrogen 25 mg/dL Normal 7-25 [facility] Comment on above: Order Comment: No: Do not add to previou s draw Performed By: #### 4 1000, 77611, 61824, 31797, 68170 ####[facility] [place] [address], [place] CBC COMPLETE BLOOD COUNTon Erythrocyte distribution width Auto Ratio (RBC) 13.8 % Normal 11.5-16.9 [facility] Comment on above: Order Comment: No: Do not add to previou s draw Performed By: #### 5 0608 ####[facility] [place] [address], [place] Erythrocytes (RBC) 4.83 mill/mm3 Normal 4.30-5.90 [facility] Comment on above: Order Comment: No: Do not add to previou s draw Performed By: #### 5 0608 ####[facility] Hematocrit (HCT) 46.7 % Normal 39.0-55.0 [facility] Comment on above: Order Comment: No: Do not add to previou s draw Performed By: #### 5 0608 ####[facility] Hemoglobin mass conc (Bld) 15.8 g/dL Normal 13.9-16.3 [facility] Comment on above: Order Comment: No: Do not add to previou s draw Performed By: #### 5 0608 ####[facility] MCH 32.7 pg High 24.0-32.0 [facility] Comment on above: Order Comment: No: Do not add to previou s draw Performed By: #### 5 0608 ####[facility] MCHC mass conc (RBC) 33.9 g/dL Normal 32.0-36.0 [facility] Comment on above: Order Comment: No: Do not add to previou s draw Performed By: #### 5 0608 ####[facility] MCV 96.6 fL Normal 80.0-100.0 [facility] Comment on above: Order Comment: No: Do not add to previou s draw Performed By: #### 5 0608 ####[facility] [place] [address], [facility] PLAT CNT 135 Thou/mm3 Normal 100-400 [facility] Comment on above: Order Comment: No: Do not add to previou s draw Performed By: #### 5 0608 ####[facility] WBC (Leukocytes) 15.7 Thou/mm3 High 4.0-10.0 [facility] Comment on above: Order Comment: No: Do not add to previou s draw Performed By: #### 5 0608 ####[facility] CPKon 06-14-2017 Creatine kinase (CK) 09441 U/L Critically high 30-223 [facility] Comment on above: Performed By: #### 90567, 29024, 38056, 48853, 39825 ####[facility] [facility] MAGNESIUM BLOODon 06-14-2017 Magnesium 2.8 mg/dL High 1.9-2.7 [facility] Comment on above: Order Comment: No: Do not add to previou s draw Performed By: #### 4 1000, 97709, 66199, 38940, 70928 ####[facility] PHOSPHORUS BLOODon 7 Phosphate 3.3 mg/dL Normal 2.5-5.0 [facility] Comment on above: Order Comment: No: Do not add to previou s draw Performed By: #### 4 1000, 98267, 04848, 86244, 40608 ####[facility] TSHon 06-14-2017 Thyroid stimulating hormone (TSH) 2.65 MICRO-IU/ML Normal 0.34-5.60 [facility] Comment on above: Performed By: #### 99818, 07201, 20517, 84689, 76127 ####[facility] [place] [address], [facility] BASIC METABOLIC PANELon 12-3 Calcium 8.4 mg/dL Low 8.6-10.3 [facility] Comment on above: Order Comment: No: Do not add to previou s draw Performed By: #### 0 0071, 53360 ####[facility] [place] [address], [facility] Chloride 105 mmol/L Normal 98-107 [facility] Comment on above: Order Comment: No: Do not add to previou s draw Performed By: #### 0 0071, 98408 ####[place] [address] [place] [address], [facility] CO2 26 mmol/L Normal 21-31 [facility] Comment on above: Order Comment: No: Do not add to previou s draw Performed By: #### 0 0071, 41660 ####[place] [address] [facility] [place] [address], [facility] Creatinine 1.26 mg/dL Normal 0.70-1.30 [facility] Comment on above: Order Comment: No: Do not add to previou s draw Performed By: #### 0 0071, 70958 ####[place] [address] [facility] [place] [address], [facility] eGFR (black) mL/min/{1.73_m2} Normal >60 [facility] Comment on above: Order Comment: No: Do not add to previou s draw Result Comment: Calc ulation may not be valid for patients over 70 years Performed By: #### 0 0071, 63274 ####[place] [address] [facility] [place] [address], [facility] eGFR (non-black) 56 ml/min/1.73sq m Abnormal >60 [facility] Comment on above: Order Comment: No: Do not add to previou s draw Result Comment: Calc ulation may not be valid for patients over 70 years Performed By: #### 0 0071, 45126 ####[facility] [place] [address], [facility] Glucose mass conc 106 mg/dL High 70-100 [facility] Comment on above: Order Comment: No: Do not add to previou s draw Performed By: #### 0 0071, 82668 ####[facility] [place] [address], [facility] Potassium molar conc 4.8 mmol/L Normal 3.5-5.1 [facility] Comment on above: Order Comment: No: Do not add to previou s draw Performed By: #### 0 0071, 60158 ####[facility] [place] [address], [facility] Sodium 138 mmol/L Normal 136-145 [facility] Comment on above: Order Comment: No: Do not add to previou s draw Performed By: #### 0 0071, 77269 ####[facility] [place] [address], [facility] Urea nitrogen 23 mg/dL Normal 7-25 [facility] Comment on above: Order Comment: No: Do not add to previou s draw Performed By: #### 0 0071, 33991 ####[facility] CPKon 06-13-2017 Creatine kinase (CK) 37340 U/L Critically high 30-223 [facility] Comment on above: Order Comment: No: Do not add to previou s draw Performed By: #### 0 0071, 96120 ####[facility] History and Physicalon 06-13 History and Physical MR[id number] Desean Landry Ty Admitted: 06/13/2017 Date of : 1940 Attending Physician: Arpan Camacho MD Room #: [id number] Discharge Date: HISTORY AND PHYSICALPRIMARY CARE PHYSICIAN: [...] evaluation and management.The patient presented to the [facility] Emergency Department. Overthere, the patient had initial workup revealed severe rhabdomyolysis, sothe patient was referred to the [facility] for further evaluationand management. Denying [...] Dict: 06/13/2017/06:07 P/Mariangel Hayes Trans: 06/13/2017 06:38 [id number] Normal [facility] Encounters Encounter Date Encounter Type Care Provider Facility Start: 03-16-2024 End: 03-16-2024 ambulatory DRAGAN LOONEYADDISON [facility] Start: 08-26-2022 End: 08-27-2022 ambulatory [...] End: 04-06-2018 Patient encounter procedure CESAR ROWLEY [facility] Start: 09-10-2017 End: 09-11-2017 Patient encounter procedure CESAR ROWLEY [facility] Start: 07-23-2017 End: 07-24-2017 Patient encounter procedure CESAR ROWLEY [facility] Start: 07-23-2017 End: 07-23-2017 Patient encounter procedure KALEB SANDOVAL [facility] Start: 06-13-2017 End: 06-20-2017 Evaluation and management of inpatient ARPAN FRANK Facility:[facility] Procedures Date Procedure Procedure Detail Performing Clinician Start: 07-30-[address] YUAN CASIANO . Comment on above: Performed By: #### P TT, PT #### [facility] [address] [place] [address] Dr. Artem Rojas Payers Date Payer Category Payer [employer] ( and others) [id number] 1958 Medicare [id number] 1940 Unknown [id number] 1940 Unknown [id number] 1940 Unknown [id number] .[id number] 1940 Unknown [id number] .[id number] 1940 Unknown [id number] 1940 Unknown [id number] Medicare [id number] Progress note 03-16-2024 Note Date & Type Note Facility 03-16-2024 Note [place] [facility] Subjective Desean Landry Jr. is a 83 y.o. year old male patient being seen for 1 year follow up permanent afib, hypertension, and peripheral venous insufficiency. He was admitted to [facility] in Jan 2024 for LLE cellulitis. [...] normal ventricular function, fixed inferior defect (prior [place] vs. artifact), normal wall motion, no ischemia. [...] Update 07/08/2017: He was admitted recently to [facility] after falling and having rhabdomyolysis. He was hydrated. He did well. This was possibly related to deconditioning and he is getting physical therapy. He will be soon discharged to home from the group home. otherwise he has no issues. Update 02/04/2018: [...] revealing. He reports (more content not included)... [facility] Summary Purpose Family History No [...] and content) DATE CREATED AUTHOR 12/08/2017 [facility] DATE CREATED AUTHOR AUTHOR'S ORGANIZ ATION 05/18/2018 [facility] DATE CREATED AUTHOR AUTHOR'S ORGANIZ ATION 01/16/2021 [facility] DATE CREATED AUTHOR AUTHOR'S ORGANIZ ATION 06/06/2021 [facility] DATE CREATED AUTHOR AUTHOR'S ORGANIZ ATION 09/02/2022 [facility] DATE CREATED AUTHOR AUTHOR'S ORGANIZ ATION 04/08/2024 [facility] FOR RECORDS PERTAINING TO PATIENTS WHO [...] BE BASED ON THE PRIMARY CLINICAL RECORDS. [facility] provides no warranty or guarantee of the accuracy or completeness of information in this document.
[2024-09-19] MEDS: FUROSEMIDE 20 MG TABLET 40 MG PO (13:44)
--- NOTE | 2024-09-19 18:20 | ED_ITS ---
HPI HPI - General Adult General Chief complaint: Extremity Problem, Nontraumatic Stated complaint: CELLULITIS - SENT BY [place] Time Seen by Provider: 09/19/24 12:36 Source: patient Mode of arrival: walk-in History of Present Illness HPI narrative: Patient is a 83-year-old male who is presenting to the ER for reevaluation of bilateral lower extremity swelling/cellulitis/venous stasis. Patient has no symptoms. He has no fever or chills. Patient is currently taking doxycycline and cefdinir. Patient did see Dr. Garcia in the office on . Patient's caregiver is at bedside. She is a court appointed guardian. Patient lives by himself. Patient uses 2 feet and sometimes a walker to ambulate. Patient most the time refuses to wear his ERIC hose or compression stockings because they cause pain. Patient has chronic swelling to the lower extremities. Patient does have a chronic brown discoloration to the anterior shins which is baseline. Patient was having some redness to his anterior shins with some more swelling. Patient was placed on 2 different antibiotics from PCP Dr. Garcia . The home caregiver saw the patient today thought infection was getting worse. They called the PCP office and the PCP Dr. Garcia office told patient to come to the ER. Patient has no symptoms. All systems are negative except as noted/marked. All systems reviewed and otherwise negative. Nurses note and vital signs reviewed and patient is not hypoxic. General: The patient appears well and in no apparent distress. Patient is resting comfortably on cart. Patient is not toxic, lethargic, or listless Skin: Warm, dry, no pallor noted. There is no rash noted. No petechiae, purpura. Patient has chronic brownish color discoloration to his bilateral lower anterior shins that is chronic, not new. Patient has mild redness to the lateral aspect of the brownish anterior valerio discoloration, more venous stasis, no obvious signs of any cellulitis. Patient does have 2+ pitting edema equal to bilateral lower extremities. No pain to the posterior calves, posterior fossa, or posterior thighs bilateral. Patient has no obvious signs of cellulitis, abscess. There is no streaking red lines or lymphangitis going up to his knee or going posterior. Head: Normocephalic, atraumatic Eye: Normal conjunctiva, no drainage, EOMI. PERRL Ears, Nose, Mouth, and Throat: oral mucosa is moist. Nares patent. Mouth without vesicles. Cardiovascular: Regular Rate and Rhythm, no murmur, gallop, rub Respiratory: Patient is in no distress, no accessory muscle use, lungs are clear to auscultation, no wheezing, rales or rhonchi Back: non-tender, no CVA tenderness bilaterally to percussion. No CT LS midline pain GI: no tenderness to palpation, no masses appreciated. No rebound, guarding, or rigidity noted. No distention Musculoskeletal: Patient has full range of motion of all of the extremities, no motor, sensory, or focal neurological deficits Neurological: A&O x4, normal speech Psychiatric: Cooperative Related Data Home Medications ?Medication ?Instructions ?Recorded ?Confirmed apixaban 5 mg tablet (Eliquis) 5 mg PO Q12H 08/19/23 09/19/24 cholecalciferol (vitamin D3) 50 50 mcg PO DAILY 08/19/23 09/19/24 mcg (2,000 unit) capsule (Vitamin D3) glimepiride 2 mg tablet 2 mg PO DAILY 08/19/23 09/19/24 spironolactone 25 mg tablet 25 mg PO DAILY 08/19/23 09/19/24 simvastatin 20 mg tablet 20 mg PO QPM 01/12/24 09/19/24 cefdinir 300 mg capsule 600 mg PO DAILY 09/19/24 09/19/24 doxycycline monohydrate 100 mg 100 mg PO DAILY 09/19/24 09/19/24 capsule Allergies Allergy/AdvReac Type Severity Reaction Status Date / Time No Known Drug Allergies Allergy Verified 08/19/23 13:53 Opioid HPI Opioid Management Most Recent Opioid Data: Last Pain Scale 0 01/19/24 04:06 01/19/24 Last ORT Total Score 0 01/14/24 20:41 01/14/24 Last ORT Risk Category Low Risk 01/14/24 20:41 01/14/24 [facility] Medical History (Updated 09/19/24 @ 13:31 by Mykel Marquez MD) Abscess of left leg excluding foot ?L02.416 - Cutaneous abscess of left lower limb (ICD-10) Failure of outpatient treatment ?Z78.9 - Other specified health status (ICD-10) Cellulitis of left leg ?L03.116 - Cellulitis of left lower limb (ICD-10) Fall ?W19.XXXA - Unspecified fall, initial encounter (ICD-10) Skin tear Cellulitis ?L03.90 - Cellulitis, unspecified (ICD-10) High cholesterol ?E78.00 - Pure hypercholesterolemia, unspecified (ICD-10) Afib ?I48.91 - Unspecified atrial fibrillation (ICD-10) Edema ?R60.9 - Edema, unspecified (ICD-10) Surgical History (Updated 01/14/24 @ 20:47 by Kristie Montoya) FHx: cataracts ?Z83.518 - Family history of other specified eye disorder (ICD-10) Cardiac pacemaker ?Z95.0 - Presence of cardiac pacemaker (ICD-10) Social History (Updated 01/14/24 @ 20:48 by Kristie Montoya) Within the past year, how often did you have a drink containing alcohol: never Within the past year, how often did you have six or more drinks on one occasion: never Score interpretation: A score less than 4 is consistent with normal alcohol consumption. Smoking status: Former smoker Non-prescribed substance use: denies use Previous occupational history: disability Known occupational exposures/hazards: No Highest level of school completed/degree received: 10th grade Are you now , , , , never or living with a partner: never In a typical week, how many times do you talk on the telephone with family, fri ends, or neighbors: 3 or more times per week How often do you get together with friends or relatives: 3 or more times per week How often do you attend cheondoism or jainism services: never Do you belong to any clubs or organizations such as cheondoism groups unions, fraternal or athletic groups, or school groups: no Total score: 1 Score interpretation: A score of less than or equal to 1 indicates the most socially isolated. Little interest or pleasure in doing things: not at all Feeling down, depressed, or hopeless: not at all Feel stressed/tense/nervous/anxious/difficulty sleeping: not at all Due to disability, difficulty making decisions: No Do you think of yourself as: straight/heterosexual Gender Identity: male Exam Constitutional Vital Signs, click to edit/add: Last Vital Signs Temp 97.5 F L 09/19/24 13:50 Pulse 60 09/19/24 13:50 Resp 18 09/19/24 13:50 BP 139/75 09/19/24 13:50 Pulse Ox 98 09/19/24 13:50 O2 Del Method Room Air 09/19/24 13:50 Course Vital Signs Vital signs: Vital Signs Temperature 97.5 F L 09/19/24 12:15 Pulse Rate 62 09/19/24 12:15 Respiratory Rate 20 09/19/24 12:15 Blood Pressure 151/85 H 09/19/24 12:15 Pulse Oximetry 99 09/19/24 12:15 Oxygen Delivery Method Room Air 09/19/24 12:15 Temperature 97.5 F L 09/19/24 13:50 Pulse Rate 60 09/19/24 13:50 Respiratory Rate 18 09/19/24 13:50 Blood Pressure 139/75 09/19/24 13:50 Pulse Oximetry 98 09/19/24 13:50 Oxygen Delivery Method Room Air 09/19/24 13:50 Medical Decision Making MDM Narrative Medical decision making narrative: Patient seen and examined: Pictures were taken of patient's bilateral anterior lower extremities and they were sent to Dr. Garcia in a secure message and then we discussed the case on the phone Differential diagnosis includes but is not limited to: Cellulitis, venous stasis, peripheral edema, electrolyte abnormality, dehydration Reevaluation: Patient was happy to go back home. Patient does not need admission. Patient guardian is aware of this as well. Shared decision making: I discussed with the patient the necessary laboratory findings and radiological findings. Social barriers to healthcare: There are no food insecurities, there is no issue with transportation, there are no insurance barriers. Disposition: I discussed with the patient and guardian patient's presentation. Patient guardian did not know how the lower extremities length last week. And we looked at the pictures and discussed his legs. I took a picture lower extremities, sent them to Dr. Garcia secure message. We discussed the case, patient will be given 1 dose of Lasix [address] Garcia will reassess the legs tomorrow and order additional Lasix if needed. Dr. Garcia recommended continuing the antibiotics. I discussed that patient has chronic discoloration brownish color to his lower extremities and it looks like more venous stasis secondary to slight increase in edema to lower extremities. He has no signs of DVT or unilateral swelling. Dr. Garcia recommended continue antibiotics and he will reassess the patient tomorrow Discharge Plan Discharge Chief Complaint: Extremity Problem, Nontraumatic Clinical Impression: Bilateral edema of lower extremity, Venous stasis dermatitis of both lower extremities Patient Disposition: Home, Self-Care Time of Disposition Decision: 13:31 Condition: Fair Mode of Transportation: Private Vehicle Prescriptions / Home Meds: No Action spironolactone 25 mg tablet 25 mg PO DAILY glimepiride 2 mg tablet 2 mg PO DAILY cholecalciferol (vitamin D3) [Vitamin D3] 50 mcg (2,000 unit) capsule 50 mcg PO DAILY Eliquis 5 mg tablet 5 mg PO Q12H cefdinir 300 mg capsule 600 mg PO DAILY Patient Comments: 09/15/24-09/24/24 doxycycline monohydrate 100 mg capsule 100 mg PO DAILY Patient Comments: 09/15/24-09/24/24 simvastatin 20 mg tablet 20 mg PO QPM Print Language: Faroese Instructions: Leg Edema (ED), Lymphedema (ED), Venous Insufficiency (DC) Additional Instructions: Continue to elevate your legs at bedtime. Use your compression stockings as recommended I have spoken to Dr. Garcia today, he has also looked at the pictures of your legs. Continue taking your antibiotics as prescribed by Dr. Garcia. We have given you 1 dose of Lasix 40 mg in the ER today. Dr. Garcia will talk to tomorrow and your nursing team to see if you should continue a few more days of Lasix or not. I am not prescribing you any additional Lasix, this will come from Dr. Chowdhury tomorrow if needed. Referrals: Vahid Garcia MD [Primary Care Provider] - 1 week Discharge Date/Time: 09/19/24 13:50
== END 2024-09-19 13:50 | disposition home or self-care (01) ==
PROVIDERS: Emergency Provider Emergency Medicine; PCP Family Medicine
DX: R60.0 Localized edema (principal); I87.303 Chronic venous hypertension (idiopathic) without complications of bilateral lower extremity; L53.9 Erythematous condition, unspecified
CPT/HCPCS: 99283

== ENCOUNTER 2025-04-24 15:18 | Outpatient (REF) | payer MEDICARE, OTHER, MEDICAID, SELFPAY ==
--- OUTSIDE RECORDS SUMMARY | 2025-04-17 10:00 | XMS_ITS | Encounter Summary ---
Author Organization [facility] Address [address] [place] [address] Care Team Providers Care Sugar Reprocess Operator Head Name Role Phone Vahid Garcia MD Primary Care Provider [phone] Reason for Referral * Imaging (Routine) - Pending ReviewSpecialtyDiagnoses / ProceduresReferred By ContactReferred To ContactCardiology Diagnoses Permanent atrial fibrillation (CMS/HCC) Procedures Transthoracic echo (TTE) complete Jourdan Moore MD [address] [place] [address] Phone: tel: fax: Referral IDStatusReasonStart DateExpiration DateVisits RequestedVisits [id number] Review Perform Procedure Encounter Details DateTypeDepartmentCare Team (Latest Contact Info)Kybbhnkrbbj16/03/2025 10:00 AM ESTOffice Visit [facility] [address] [address] Jourdan Moore MD [address] [facility] [address] [place] [address] Permanent atrial fibrillation (CMS/HCC) (Primary Dx); Primary hypertension; Cardiac pacemaker in situ; Mixed hyperlipidemia; Peripheral venous insufficiency Social History Tobacco UseTypesPacks/DayYears UsedDateSmoking Tobacco: FormerCigarettesQuit: 2007Passive Smoke Exposure: PastSmokeless Tobacco: Never Tobacco Cessation:Counseling Given: Not Answered Alcohol UseStandard Drinks/WeekCommentsNot Currently0 (1 standard drink = 0.6 oz pure alcohol)Humiliation, Afraid, Rape, and Kick questionnaireAnswerDate RecordedWithin the last year, have you been afraid of your partner or ex-partner?No09/02/2022Within the last year, have you been humiliated or emotionally abused in other ways by your partner or ex-partner?No09/02/2022 Within the last year, have you been kicked, hit, slapped, or otherwise physically hurt by your partner or ex-partner?No09/02/2022Within the last year, have you been raped or forced to have any kind of sexual activity by your part ner or ex-partner?No09/02/2022Social Connection and Isolation PanelAnswerDate RecordedIn a typical week, how many times do you talk on the phone with family, friends, or neighbors?Once a week09/02/2022How often do you get together with friends or relatives?Twice a week09/02/2022How often do you attend amish or temple services?More than 4 times per year09/02/2022o you belong to any clubs or organizations such as amish groups, unions, fraternal or athletic emma ups, or school groups?Yes09/02/2022How often do you attend meetings of the clubs or organizations you belong to?More than 4 times per year09/02/2022re you , , , , never , or living with a partner? Zrgebblnp99/21/2023UDIT-CAnswerDate RecordedQ1: How often do you have a drink containing alcohol?Never09/02/2022Q2: How many drinks containing alcohol do you have on a typical day when you are drinking?Patient does not drink09/02/2022Q3: How often do you have six or more drinks on one occasion?Never09/02/2022Overall Financial Resource Strain (CARDIA)AnswerDate RecordedHow hard is it for you to pay for the very basics like food, housing, medical care, and heating?Not hard at all09/02/2022[facility] of Occupational Health - Occupational Stress QuestionnaireAnswerDate RecordedDo you feel stress - tense, restless, nervous, or anxious, or unable to sleep at night because yourmind is troubled all the time - these days?Not at all09/02/2022Exercise Vital SignAnswerDate RecordedOn average, how many days per week do you engage in moderate to strenuous exercise (like a brisk walk)?1 day09/02/2022On average, how many minutes do you engage in exercise at this level?10 min09/02/2022UT Safety & EnvironmentAnswerDate RecordedFear of Current or Ex-PartnerNot on file09/09/2023Emotionally AbusedNot on file09/09/2023hysically AbusedNot on file09/09/2023Sexually AbusedNot on 09/09/2023hysically or Sexually AbusedNot on file09/09/2023Transportation AnswerDate RecordedIn the past 12 months, has lack of transportation kept you from medical appointments or from getting medications?No09/02/2022In the past 12 months, has lack of transportation kept you from meetings, work, or from getting things needed for daily living?No09/02/2022Housing Stability Vital SignAnswer Date RecordedIn the last 12 months, was there a time when you were not able to pay the mortgage or rent on time?No09/02/2022In the last 12 months, how many places have you lived?In the last 12 months, was there a time when you did not have a steady place to sleep or slept in [facility] (including now)?No 09/02/2022Hunger Vital SignAnswerDate RecordedWithin the past 12 months, you worried that your food would run out before you got the money to buymore.Never true09/02/2022Within the past 12 months, the food you bought just didn't last and you didn't have money to get more.Never true09/02/2022Sex and Gender InformationValueDate RecordedSex Assigned at QmgcgSbhb15/17/2025 8:22 PM EDT Legal WpgWces2512/11/2021 10:46 PM EDTGender VmstbksxSpic97/17/2025 8:22 PM EDT Sexual OrientationChoose not to szekafvy95/ 8:22 PM EDTdocumented as of this encounter Last Filed Vital Signs Vital SignReadingTime TakenCommentsBlood Cnmeuqtn322/6804/17/2025 10:09 AM EST Fuhmq275604/17/2025 10:09 AM ESTTemperature--Respiratory Rate--Oxygen Saturation 99%04/17/2025 10:09 AM ESTInhaled Oxygen Concentration--Invlzt84.5 kg (195 lb) 04/17/2025 10:09 AM ICZAiybcy862.3 cm (5' 9 )04/17/2025 10:09 AM ESTBody Mass Index28.8106/17/2024 10:09 AM ESTdocumented in this encounter Functional Status * BPAnswerDate of GluwlkdslnFuqdfq718/6804/17/2025 10:09 AM Karla Birmingham MA * PulseAnswerDate of ZjhfzmhalwPztmfe8703/03/2025 10:09 AM Karla Birmingham MA * Patient PositionAnswerDate of QvjtfrrnnjYtlwiqRvfdbbr69/03/2025 10:09 AM Karla Snyder MA * BPAnswerDate of GuvuhthhsoVyhcna367/6804/17/2025 10:09 AM Karla Birmingham MA * PulseAnswerDate of AoptrsohfjWseonm7382/03/2025 10:09 AM Karla Birmingham MA * BaT6VodumdOkod of OmqzojihagPcbsal4085/03/2025 10:09 AM Karla Birmingham MA * BP LocationAnswerDate of AssessmentAuthorLeft arm04/17/2025 10:09 AM Karla Snyder MA * Patient PositionAnswerDate of MwyxfcslgiZxajiwRwjnhox23/03/2025 10:09 AM Karla Snyder MA documented as of this encounter Progress Notes * Jourdan Moore MD - 04/17/2025 10:00 AM EST Images from the original note were not included. [place] Cardiology [facility] Subjective Shiraz Hyatt Charanjit Leggett is a 84 y.o. year old male patient being seen for 1 year follow up permanent afib, hypertension, and peripheral venous insufficiency. Had echo last Mar 2024. No recent lab work. Patient Active Problem List Diagnosis Longstanding persistent atrial fibrillation (CMS/HCC) Primary hypertension Peripheral venous insufficiency Atrial fibrillation (CMS/HCC) Chronic obstructive lung disease (CMS/HCC) Closed nondisplaced fracture of sixth cervical vertebra (CMS/HCC) Dyspnea Hyperlipidemia Intermittent claudication Low back pain PAD (peripheral artery disease) Bradycardia Status post placement of cardiac pacemaker Balanitis Callus of toe Family History Problem Relation Name Age of Onset Cancer Mother Diabetes Brother Other (CABG) Brother Social History Tobacco Use Smoking status: Former Current packs/day: 0.00 Types: Cigarettes Quit date: 2006 Years since quittin.8 Passive exposure: Past Smokeless tobacco: Never Substance Use Topics Alcohol use: Not Currently Drug use: Never HPI Mr Donohue is seen in follow up. He is [...] normal ventricular function, fixed inferior defect (prior CA vs. artifact), normal wall motion, no ischemia. [...] for a long time. In november of 2016I checked ABIs and those were normal at rest and with exercise. Blood testing 12/03/2016: CBC ok, renal function and electrolytes within normal, TG 151, LDL 133, HDL 37, HbA1c 6.1%. He is ex-smoker, stopped 6 years ago. Update 07/08/2017: He was admitted recently to [facility] after falling and having rhabdomyolysis. He was hydrated. He did well. This was possibly related to deconditioning and he is getting physical therapy. He will be soon discharged to home from the correction. otherwise he has no issues. Update 02/04/2018: [...] with the episode of lower extremity cellulitis andwas treated accordingly. Duplex ultrasound of the lower [...] ventricular systolic function, mild aortic regurgitation, normal right- sided pressures, mildto moderate atrial dilatation, no pericardial effusion. Update 04/21/2022: He is seen in follow up. In 03/03/2022 he was admitted to [facility] after a mechanical fall and subsequent C- spine fracture (Closednondisplaced fracture of sixth cervical vertebra). He also sustained a head laceration. He reports that he had a mechanical fall and never lost consciousness. His daughter reports that during hospitalization his heart rate was low. Today he denies chest pain, shortness of breath, palpitations, dizziness, syncope and leg edemia. he has good exercise tolerance. There is no claudication. Update 02/18/2023: He is seen in follow-up. In August 2022 he underwent implantation of pacemaker by Dr. Damian Martinez. Today he reports that he has been doing very well. He has not had any issues with dizziness or lightheadedness. He has no chest pain. Has mild lower extremity edema. No falls. No bleeding with Eliquis. Update 03/16/2024: He is seen in follow-up. He has been doing well. He has not had any chest pain or shortness of breath. No bleeding with Eliquis. He continues to have lower extremity edema and poor will healing. He was admitted with cellulitis to the [facility] in January 2024 and follows with wound care. He has not been very active physically. He does some walking. Device interrogation today in the office showed 98% ventricular pacing. There were 3 episodes of nonsustained tachycardia lasting between 12 and 16 seconds each. Update 04/17/2025: He is seen in follow-up. He has been doing reasonably well. He denies chest pain and shortness of breath. He does get left-sided shoulder pain when he raises his arm. He does have bilateral lower extremity swelling. He has not been wearing compression stockings on a regular basis because it is hard for him to wear them. Device interrogation performed today in the office showed no significant events. Review of Systems Cardiovascular: Positive for leg swelling. Skin: Positive for poor wound healing. All other systems reviewed and are negative. Objective Visit Vitals BP 132/68 (BP Location: Left arm, Patient Position: Sitting) Pulse 63 Ht 1.753 m (5' 9 ) Wt 88.5 kg (195 lb) SpO2 99% BMI 28.80 kg/m?? Smoking Status Former BSA 2.08 m?? Physical Exam Constitutional: Appearance: He is well-developed. He is not ill-appearing. HENT: Head: Normocephalic and atraumatic. Nose: Nose normal. Eyes: General: No scleral icterus. Pupils: Pupils are equal, round, and reactive to light. Neck: Thyroid: No thyromegaly. Vascular: No JVD. Cardiovascular: Rate and Rhythm: Normal rate and regular rhythm. Pulses: Radial pulses are 2+ on the right side and 2+ on the left side. Heart sounds: Normal heart sounds. No murmur heard. No friction rub. No gallop. Pulmonary: Effort: Pulmonary effort is normal. No respiratory distress. Breath sounds: Normal breath sounds. No wheezing or rales. Chest: Chest wall: No tenderness. Abdominal: General: Bowel sounds are normal. There is no distension. Palpations: Abdomen is soft. Tenderness: There is no abdominal tenderness. Musculoskeletal: General: No swelling. Cervical back: Neck supple. Right lower le+ Pitting Edema present. Left lower le+ Pitting Edema present. Skin: General: Skin is warm and dry. Neurological: General: No focal deficit present. Mental Status: He is alert and oriented to person, place, and time. Psychiatric: Mood and Affect: Mood normal. Behavior: Behavior is cooperative. Judgment: Judgment normal. Allergies No Known Allergies Medications Current Outpatient Medications: apixaban (Eliquis) 5 mg tablet, Take 1 tablet by mouth in the morning and at bedtime., Disp: , Rfl: cholecalciferol, vitamin D3, 50 mcg (2,000 unit) capsule, Take 1 capsule by mouth in the morning., Disp: , Rfl: glimepiride (Amaryl) 2 mg tablet, Take 2 mg by mouth before breakfast., Disp: , Rfl: simvastatin (Zocor) 20 mg tablet, Take 1 tablet by mouth at bedtime., Disp: , Rfl: spironolactone (Aldactone) 25 mg tablet, Take 25 mg by mouth in the morning., Disp: , Rfl: hyoscyamine 0.125 mg dissolvable tablet, Take 0.125 mg by mouth if needed in the morning, at noon, and at bedtime. (Patient not taking: Reported on 04/17/2025), Disp: , Rfl: Recent Labs No visits with results within 6 Month(s) from this visit. Latest known visit with results is: Admission on 09/01/2022, Discharged on 09/02/2022 Component Date Value Ventricular Rate 09/01/2022 57 QRS DURATION 09/01/2022 112 QT Interval 09/01/2022 472 QTC CALCULATION(BAZETT) 09/01/2022 459 R-[place] 09/01/2022 -41 T Wave [place] 09/01/2022 0 Sodium 08/26/2022 139 Potassium 08/26/2022 4.3 Chloride 08/26/2022 105 BUN, Bld 08/26/2022 20 Creatinine 08/26/2022 1.06 Glucose, Bld 08/26/2022 125 WHITE BLOOD CELL COUNT 08/26/2022 9 Hemoglobin 08/26/2022 14.5 Hematocrit 08/26/2022 43.8 Platelets 08/26/2022 333 Blood testing 01/19/2024: Hemoglobin 12.9, hematocrit 39.4, platelets 246, potassium 4.0, BUN 17, creatinine 1.10, EGFR more than 60. NT proBNP 01/14/2024: 859. labs 11/20/2022 unremarkable CBC, sodium 140, K4.3, BUN 16, creatinine 0.94, GFR greater than 60, A1c5.9, LDL 70,Triglycerides 90. LFTs normal. LDL (03/2021): 90 Labs 06/01/2021: CBC: Hemoglobin 11.3, platelet 161, WBC 12.1, CMP: Creatinine 0.94, BUN 13, K3.5, NA 140, GFR greater than 60, ALT 21, AST 21 Imaging and other tests Echocardiogram 03/25/2024: 1. Mild concentric ventricular hypertrophy with normal systolic function. LVEF is 55%. 2. Normal right ventricular size and systolic function. 3. Mild aortic valve regurgitation. 4. Mildly elevated right-sided pressures. 5. No pericardial effusion. 6. Mild to moderate biatrial dilatation. Device check in clinic 03/16/2024: 98% ventricular pacing. There were 3 episodes of nonsustained tachycardia lasting between 12 and 16 seconds each. Rate response was adjusted today. CT lower leg left with contrast 01/14/2024: 1. Heterogeneous dense fluid collection versus mass within subcutaneous fat of the lateral mid lower leg corresponding to patient's palpable lump. No free air within the structure to suggest abscess.No significant surrounding inflammatory changes. While this may represent a hematoma, or abscess, neoplasm cannot be excluded. Consider short-term follow-up or ultrasound-guided biopsy. 2. Prominent subcutaneous edema throughout the lower extremity. Right lower extremity duplex ultrasound 01/12/2024: 1. No acute lower extremity deep venous thrombosis. 2. No acute superficial venous thrombosis. Chronic changes noted within the small saphenous vein. Left lower extremity duplex ultrasound 01/12/2024: 1. No deep venous thrombosis in the left lower extremity. 2. Subcutaneous edema left calf. Carotid ultrasound 11/13/2023: 1. 0-49% flow stenosis within the right left carotid arteries. 2. Moderate atherosclerotic disease. Device check in clinic 02/18/2023: V pacing 98% device check 09/24/2022 which showed normal device function and stable lead thresholds, had nonsustained arrhythmia noted on 09/02/2022 and 09/19/2022/total duration of 12 seconds Echocardiogram 07/18/2020: Normal ventricular systolic function, mild aortic regurgitation, normal right-sided pressures, mild to moderate atrial dilatation, no pericardial effusion. Echocardiogram at [facility] 03/04/2022: Left Ventricle: Systolic function is normal with an ejection fraction of 55-60%. See wall score diagram for wall motion abnormalities. The following segments are hypokinetic: basal inferoseptal, basal inferior and mid inferior. Left Atrium: Left atrium volume index is severely increased. Right Atrium: Right atrium is moderately dilated. Aortic Valve: There is mild regurgitation. ECG 04/21/2022: Atrial fibrillation with slow ventricular response, left axis deviation, incomplete right bundle branch block, anterior infarct age undetermined, heart rate 45 bpm. Assessment/Plan Diagnoses and all orders for this visit: Permanent atrial fibrillation (CMS/HCC) - Transthoracic echo (TTE) complete; Future Primary hypertension Cardiac pacemaker in situ Mixed hyperlipidemia Peripheral venous insufficiency 1. Permanent atrial fibrillation: He continues to be on Eliquis 5 mg twice daily. He is status postpacemaker placement. The pacemaker is pacing most of the times. He is asymptomatic. No bleeding. Nofalls. In the past he had major fall with subsequent injury of the C-spine. We had previously discussed left atrial appendage closure. As long as he has no falls or bleeding we can continue anticoagulation therapy. Device interrogation today showed no events. He is pacing the ventricle 96% of the times. I will check an echocardiogram since he is in permanent AF and pacing most of the times. 2. Hypertension: This is well-controlled on the current spironolactone. Continue the same. He does not have evidence of active coronary disease by symptoms or by prior non-invasive imaging. 3. His prior claudication symptoms are not related to vascular insufficiency according to the non invasive vascular testing in 11/2016, and by ABIs March 2020. 4. He has chronic lower extremity venous insufficiency and skin changes. His prior and recent duplex u/s did not show DVT. He will follow-up with his primary care physician Dr. Garcia regarding that. He has not had blood testing in a long time. He should be seeing Dr. Garcia soon and will get blood testing. Follow up in about 1 year (around 04/17/2026). Jourdan Moore MD documented in this encounter Plan of Treatment NameTypePriorityAssociated DiagnosesOrder ScheduleTransthoracic echo (TTE) completeEchocardiographyRoutine Permanent atrial fibrillation (CMS/HCC) Expected: 04/17/2025 (Approximate), Expires: 04/17/2027documented as of this encounter Visit Diagnoses Diagnosis Permanent atrial fibrillation (CMS/HCC)- Primary Atrial fibrillation Primary hypertension Unspecified essential hypertension Cardiac pacemaker in situ Mixed hyperlipidemia Peripheral venous insufficiency Unspecified venous (peripheral) insufficiency documented in this encounter Care Teams Team MemberRelationshipSpecialtyStart DateEnd Date Vahid Garcia MD [address] [place] [address] PCP - Djgggds76/4/22documented as of this encounter
--- OUTSIDE RECORDS SUMMARY | 2025-04-24 15:20 | XMS_ITS | Clinical Summary ---
Author Organization [facility] Address [id number] [address] [place] [address] Care Team Providers Care Promotions Executive Name Role Phone Vahid Garcia MD Primary Care Provider [phone] Allergies No known active allergies Medications MedicationSigDispense QuantityRefillsLast FilledStart DateEnd DateStatus apixaban (ELIQUIS) 5 mg tablet Take 5 mg by mouth 2 (two) times a day.Active simvastatin (ZOCOR) 20 mg tablet Take 20 mg by mouth nightly.Active cholecalciferol, vitamin D3, 25 mcg (1,000 unit) capsule Take 2,000 Units by mouth daily.Active spironolactone (ALDACTONE) 25 mg tablet Take 25 mg by mouth in the morning.Active clindamycin (CLEOCIN T) 1 % external solution Apply 1 application topically 2 (two) times a day.Active hyoscyamine (LEVSIN) 0.125 mg SL tablet Take 0.125 mg by mouth 3 (three) times a day as needed for cramping.Active gabapentin (NEURONTIN) 300 mg capsule Indications:Closed nondisplaced fracture of sixth cervical vertebra, unspecified fracture morphology, initial encounter ([facility])Take 1 capsule (300 mg total) by mouth every 8 (eight) hours.03/05/2022ctive sennosides-docusate sodium (SENOKOT-S) 8.6-50 mg Take 2 tablets by mouth nightly.03/05/2022ctive acetaminophen (TYLENOL EXTRA STRENGTH) 500 mg tablet Take 2 tablets (1,000 mg total) by mouth every 6 (six) hours as needed for pain. 30 tablet 03/05/2022ctive Active Problems ProblemNoted DateDiagnosed DateClosed nondisplaced fracture of sixth cervical /19/2022PAD (peripheral artery disease)03/23/2020Venous insufficiency (chronic) (peripheral)03/23/2020 Immunizations ImmunizationAdministration DatesNext DueInfluenza, Trivalent, Adjuvanted 03/21/2020Influenza, Awsuzptldvf75/20/2017Pneumococcal Conjugate 13-Valent 04/03/2017Tdap03/03/2022 Social History Tobacco UseTypesPacks/DayYears UsedDateSmoking Tobacco: NeverSmokeless Tobacco: NeverAlcohol UseStandard Drinks/WeekCommentsNot Currently0 (1 standard drink = 0.6 oz pure alcohol)guardian states he may be drinking some but is not supposed toChildcareAnswerDate DhhmirbnIeebauuaaOvnifhz55/12/2019EmploymentAnswerDate CvudvbxwKsubkvldlhWfbkats79/12/2019Purpose - LifeAnswerDate RecordedPurpose and direction in ekvgWggrzxx91/11/2021Sex and Gender InformationValueDate Recorded Sex Assigned at BirthNot on fileLegal StqLqfb9301/18/2015 11:54 AM EDTGender IdentityNot on fileSexual OrientationNot on file Last Filed Vital Signs Vital SignReadingTime TakenCommentsBlood Dlvbdotd578/56003/05/2022 12:18 PM EDT Gqvna6791/21/2022 12:18 PM TMUJvxvponlbkp60.8 ??C (98.2 ??F)03/05/2022 12:18 PM EDTRespiratory Ibsx434403/05/2022 12:18 PM EDTOxygen Hmeeafqeal61%03/05/2022 12:18 PM EDTInhaled Oxygen Concentration--Wmzcbo88.6 kg (171 lb)03/03/2022 12:15 PM RQEBmstkd510.3 cm (5' 9 )03/03/2022 12:15 PM EDTBody Mass Index25.25003/03/2022 12:15 PM EDT Plan of Treatment Health MaintenanceDue DateLast DoneCommentsDepression Uynehaewb66/14/1954Tobacco Jruytxqgv59/14/1953Zoster (Shingles) Vaccine (1 of 2)10/27/1991Fall Risk Vvabupesw02/14/2007RSV ( or age 60+ yrs) (1 - 1-dose 75+ series) 2016COVID-19 Vaccine ( - season)511/, 09/11/2020, 08/20/2020Influenza Fmhinxh86/, 03/21/2020, 04/03/2017DTaP,Tdap and Td Vaccines (2 - Td or Tdap) Goals GoalPatient Goal TypeAssociated ProblemsRecent ProgressPatient-Stated?Author Return home Suzanne Hines RN Note: Evaluation of progress towards goal: Return home, after short term rehabilitation. Medical Devices ImplantedTypeAreaManufacturerDevice IdentifierShelf Expiration DateModel / Serial / LotLens Iol Ultrasert 17.0d - [id number] - [id number] Implanted:Qty: 1 on 06/29/2018 by Mojgan Garner MD at [facility]: [id number] 17.0 / [id number] / N/A Insurance Advance Directives TypeDate RecordedPatient RepresentativeExplanationLiving Will08/03/2017 11:48 AM [employer] * Full Code (Latest Code Status on File) Date ActivatedDate InactivatedComments03/03/2022 5:54 AM03/05/2022 6:55 PM Care Teams Team MemberRelationshipSpecialtyStart DateEnd Date Vahid Garcia MD PCP - GeneralFamily Medicine06/29/18
--- OUTSIDE RECORDS SUMMARY | 2025-04-24 15:20 | XMS_ITS | Clinical Summary ---
Author Organization [facility] Address [address] [place] [address] Care Team Providers Care Brick Tender Name Role Phone Vahid Garcia MD Primary Care Provider [phone] Allergies No known active allergies Medications MedicationSigDispense QuantityRefillsLast FilledStart DateEnd DateStatus cholecalciferol (Vitamin D-3) 25 MCG (1000 UT) capsule Take 1,000 Units by mouth DailyActive apixaban (Eliquis) 5 MG tablet Take 5 mg by mouth in the morning and 5 mg before bedtime.Active aspirin 81 MG EC tablet Take 81 mg by mouth DailyActive spironolactone (Aldactone) 50 MG tablet Take 50 mg by mouth DailyActive glimepiride (Amaryl) 2 MG tablet Take 2 mg by mouth in the morning. Take before meals.Active simvastatin (Zocor) 20 MG tablet Take 20 mg by mouth at bedtimeActive Encounters DateTypeDepartmentCare TobgWpptxvtiror67/13/2025 9:15 AM EDTProcedure Visit [facility] [address] [place] [phone] Home Luke DPM Onychodystrophy (Primary Dx); Onychomycosis; Corns and callosities; Diabetic polyneuropathy associated with type 2 diabetes mellitus (HCC)01/25/2025 Bamboo flowsheet [facility] [address] [place] [phone] Home Luke DPM 01/25/20257798Mxsami30/12/2025Travelfrom Last 3 Months Family History Medical HistoryRelationNameCommentsCancerMotherRelationNameStatusCommentsFather DeceasedMotherDeceased Social History Tobacco UseTypesPacks/DayYears UsedDateSmoking Tobacco: FormerCigarettes Smokeless Tobacco: Never Tobacco Cessation:Counseling Given: Not Answered Alcohol UseStandard Drinks/WeekCommentsNot Currently0 (1 standard drink = 0.6 oz pure alcohol)Sex and Gender InformationValueDate RecordedSex Assigned at Not on fileLegal GblIiti7408/27/2022 8:14 PM EDTGender IdentityNot on fileSexual OrientationNot on file Last Filed Vital Signs Vital SignReadingTime TakenCommentsBlood Mylycbxx413/7010 12:00 PM EDT Pulse--Temperature--Respiratory Rate--Oxygen Saturation--Inhaled Oxygen Concentration--Lefcqa89.7 kg (200 lb)01/25/2025 9:22 AM UVBEylibo688.3 cm (5' 9 )01/25/2025 9:22 AM EDTBody Mass Index29.5308 9:22 AM EDT Plan of Treatment DateTypeDepartmentCare Team (Latest Contact Info)Uftpmwxshxp36/19/2025 9:00 AM ESTProcedure Visit [facility] [address] [place] [address] Home Luke, DPM [address] [place], [place] [id number] Insurance Care Teams Team MemberRelationshipSpecialtyStart Date Vahid Garcia MD [address] [place] [address] PCP - GeneralFamily Medicine10/19/24
--- OUTSIDE RECORDS SUMMARY | 2025-04-24 15:20 | XMS_ITS | Clinical Summary ---
Author Organization [facility] Address [address] [place] [address] Care Team Providers Care Curriculum Facilitator Name Role Phone Vahid Garcia MD Primary Care Provider [phone] Allergies No known active allergies Medications MedicationSigDispense QuantityRefillsLast FilledStart DateEnd DateStatus apixaban (Eliquis) 5 mg tablet Take 1 tablet by mouth in the morning and at bedtime.Active cholecalciferol, vitamin D3, 50 mcg (2,000 unit) capsule Take 1 capsule by mouth in the morning.Active hyoscyamine 0.125 mg dissolvable tablet Take 0.125 mg by mouth if needed in the morning, at noon, and at bedtime.Active simvastatin (Zocor) 20 mg tablet Take 1 tablet by mouth at bedtime.Active spironolactone (Aldactone) 25 mg tablet Take 25 mg by mouth in the morning.Active glimepiride (Amaryl) 2 mg tablet Take 2 mg by mouth before breakfast.4Active Active Problems ProblemNoted DateDiagnosed DateCallus of toe5401Laanflhfa39/01/2024Status post placement of cardiac jlonjvtkq66/20/7105Tbcbhcleupw96/05/2023 Overview (06/19/2022): Added automatically from request for surgery [id number] Atrial qzrhbbnigakg22/22/2022hronic obstructive lung ohunysd0906/05/2022yspnea 06/05/20222010Hqivnpsbciifww63/22/2022Low back pain06/05/2022Longstanding persistent atrial /07/2022rimary dowqbgkzjigf18/07/2022eripheral venous gpddxroyjswki23/07/2022losed nondisplaced fracture of sixth cervical vertebra 03/03/2022Intermittent lizwokceivnd26/29/2021PAD (peripheral artery disease) 03/23/2020 Encounters DateTypeDepartmentCare FvmhMsmtypwmamg84/03/2025 10:00 AM ESTOffice Visit [facility] [address] [place] [phone] Jourdan Moore MD Permanent atrial fibrillation (CMS/HCC) (Primary Dx); Primary hypertension; Cardiac pacemaker in situ; Mixed hyperlipidemia; Peripheral venous vxzkmgnjmtova22/16/2025 11:45 AM EDTAncillary Procedure [facility] [address] [place] [address] Adjustment and management of cardiac gypvbitff66/16/2025Orders Only [facility] [address] [place] [address] Damian Martinez MD from Last 3 Months Family History Medical HistoryRelationNameCommentsCABGBrotherDiabetesBrotherCancerMother RelationNameStatusCommentsBrotherMother Social History Tobacco UseTypesPacks/DayYears UsedDateSmoking Tobacco: FormerCigarettesQuit: [...] otherwise physically hurt by your partner or ex-partner?09/02/2022Within the last year, have you been raped or forced to have any kind of sexual activity by your part ner or ex-partner?09/02/2022Social Connection and Isolation PanelAnswerDate RecordedIn a typical week, how many times do you talk on the phone with family, friends, or neighbors?Once a week03/21/2023How often do you get together with friends or relatives?Twice a week09/02/2022How often do you attend evangelical or oriental orthodox services?More than 4 times per year09/02/2022o you belong to any clubs or organizations such as evangelical groups, unions, fraternal or athletic emma ups, or school groups?Yes09/02/2022How often do you attend meetings of the clubs or organizations you belong to?More than 4 times per year09/02/2022re you , , , , never , or living with a partner? Htdsaycmh92/21/2023UDIT-CAnswerDate RecordedQ1: How often do you have a [...] housing, medical care, and heating?Not hard at all09/02/2022[facility] [place] [facility] - Occupational Stress QuestionnaireAnswerDate [...] EnvironmentAnswerDate RecordedFear of Current or Ex-PartnerNot on 09/09/2023Emotionally AbusedNot on 09/09/2023hysically AbusedNot on 09/09/2023Sexually AbusedNot on 09/09/2023hysically or Sexually AbusedNot on [...] steady place to sleep or [facility] (including now)?No 09/02/2022Hunger Vital SignAnswerDate RecordedWithin the past 12 months, you worried that your food would run out before you got the money to buymore.Never true09/02/2022Within the past 12 months, the food you bought just didn't last and you didn't have money to get more.Never true09/02/2022Sex and Gender InformationValueDate RecordedSex Assigned at XxrqdTgll50/17/2025 8:22 PM EDT Legal OrsEcqv3212/11/2021 10:46 PM EDTGender AcsivhniVlqs73/17/2025 8:22 PM EDT Sexual OrientationChoose not to jomqphqr04/17/2025 8:22 PM EDT Last Filed Vital Signs Vital SignReadingTime TakenCommentsBlood Ohygfegm198/6811 10:09 AM EST Denvt859704/17/2025 10:09 AM SVJCznyhzdpufh87 ??C (98.6 ??F)09/02/2022 4:00 PM EDT Respiratory Ftnb828209/02/2022 4:00 PM EDTOxygen Aubaphuzuc17%04/17/2025 10:09 AM ESTInhaled Oxygen Concentration--Bgnwae29.5 kg (195 lb)04/17/2025 10:09 AM EST Ewcmzr719.3 cm (5' 9 )04/17/2025 10:09 AM ESTBody Mass Index28.8106/17/2024 10:09 AM EST Plan of Treatment Health MaintenanceDue DateLast DoneCommentsDiabetes: Hemoglobin A1C05/ Medicare Annual Wellness (AWV)2Diabetes: Retinopathy Screening 2Depression Rdmkhaccm78/14/1954Diabetes: Urine Protein Screening 1960Zoster Vaccines (1 of 2)10/27/1991Fall Risk Pvnrgtlbv69/14/2007 Pneumococcal Vaccine: 50+ Years (2 of 2 - PPSV23, PCV20, or PCV21)05/29/2017 04/03/2017COVID-19 Vaccine ( - season)/, 05/07/2021, 09/11/2020, Additional history existsInfluenza Vaccine (#1)/, 03/21/2020, 04/03/2017Adult Jeaxwsg85HIB VaccinesAged OutNo longer eligible based on patient's age to complete this topicHPV VaccinesAged OutNo longer eligible based on patient's age to complete this topicIPV Vaccines Aged OutNo longer eligible based on patient's age to complete this topic Meningococcal B VaccineAged OutNo longer eligible based on patient's age to complete this topicMeningococcal VaccineAged OutNo longer eligible based on patient's age to complete this topicRotavirus VaccinesAged OutNo longer eligible based on patient's age to complete this topic Medical Devices ImplantedTypeAreaManufacturerDevice IdentifierShelf Expiration DateModel / Serial / LotIngevity+ Is-1 Bi Positive Fix Ra/Rv 59cm Implanted:Qty: 1 on 09/01/2022 by Damian Martinez MD at [facility] [id number] / [id number] / Pacer,[employer] - [id number] - [id number] Implanted:Qty: 1 on 09/01/2022 by Damian Martinez MD at [facility] [id number] / [id number] / Procedures Procedure NamePriorityDate/TimeAssociated DiagnosisCommentsCARDIAC DEVICE CHECK CHECK - MGMBHZNjhcylf88/17/2025 10:24 AM EDT Adjustment and management of cardiac pacemaker CARDIAC DEVICE CHECK - REMOTE - XHCCDCZMIGqdnenc28/16/2025 12:00 AM EDTfrom Last 3 Months Results * CARDIAC DEVICE CHECK - REMOTE - PACEMAKER (03/01/2025 10:24 AM EDT)Specimen (Source)Anatomical Location / LateralityCollection Method / VolumeCollection TimeReceived Time Narrative Authorizing ProviderResult TypeResult StatusPaul Juan MDCV IMPLANTABLE CARDIAC DEVICE PROCEDURESFinal ResultPerforming OrganizationAddressCity/State/ZIP Code Phone Number CPACS * Cardiac device check - Remote pacemaker (02/28/2025 12:00 AM EDT)Anatomical RegionLateralityModalityOtherSpecimen (Source)Anatomical Location / Laterality Collection Method / VolumeCollection TimeReceived Time02/28/2025 Narrative Authorizing ProviderResult TypeResult StatusPaul Juan MDCV IMPLANTABLE CARDIAC DEVICE PROCEDURESFinal Result from Last 3 Months Insurance Advance Directives TypeDate RecordedPatient RepresentativeExplanationPower of Attorney09/01/2022 12:[address] DOCUMENT * Full Code (Latest Code Status on File) Date ActivatedDate InactivatedComments09/01/2022 4:00 PM09/02/2022 7:57 PM Care Teams Team MemberRelationshipSpecialtyStart DateEnd Date Vahid Garcia MD [address] [place] [phone] [facility]04/18/22
--- OUTSIDE RECORDS SUMMARY | 2025-04-24 15:27 | XMS_ITS | CCD ---
Author Organization [facility] Care Team Providers Care Stonecutter Name Role Phone ARPAN CAMACHO Unavailable Unavailable SAHRA GILMORE Unavailable Unavailable DIOGENES CASIANO Unavailable Unavailable DIOGENES REN Unavailable Unavailable LORI, RENDELL Unavailable Unavailable LORI, RENDELL Unavailable Unavailable JOSE ITALO (REMOTE CONTROL ASSEMBLER) Unavailable Unavailable LORI, RENDELL Unavailable Unavailable LORI, RENDELL Unavailable Unavailable ROWLEY, CESAR Unavailable Unavailable ROWLEY, CESAR Unavailable Unavailable ROWLEY, CESAR Unavailable Unavailable ROWLEY, CESAR Unavailable Unavailable ROWLEY, CESAR Unavailable Unavailable ROWLEY, CESAR Unavailable Unavailable OH Romero, DR SHETTY Primary Care Unavailable BRAXTONY ., DR SHETTY Admitting Unavailable HOY ., DR SHETTY Attending Unavailable HOY ., DR SHETTY Consulting Unavailable HOY ., DR SHETTY Primary Care Unavailable HOY ., DR SHETTY Admitting Unavailable HOY ., DR SHETTY Attending Unavailable HOY ., DR SHETTY Consulting Unavailable OH ., DR SHETTY Primary Care Unavailable DREAD WOLF Admitting Unavailable DREAD WOLF Attending Unavailable DREAD WOLF Consulting Unavailable DR SRINATH CMKEON Consulting Unavailable HOY ., DR SHETTY Primary Care Unavailable MITCHELL MEJIA Admitting Unavailable MITCHELL MEJIA Attending Unavailable MATTHEW CHADWICK Consulting Unavailable TRACEY KLINE Consulting Unavailable NISSA VIGIL Consulting Unavailable UMESH .MITCHELL Consulting Unavailable OH ., DR SHETTY Admitting Unavailable HOY ., DR SHETTY Attending Unavailable HOY ., DR SHETTY Consulting Unavailable BRAXTONY ., DR SHETTY Primary Care Unavailable BRAXTONY ., DR SHETTY Admitting Unavailable HOY ., DR SHETTY Attending Unavailable HOY ., DR SHETTY Consulting Unavailable BRAXTONY ., DR SHETTY Primary Care Unavailable Diogenes Casiano MD Primary Care Provider [phone] HOME LUKE Attending Unavailable HOME LUKE Attending Unavailable DREAD WOLF Referring Unavailable DREAD WOLF Referring Unavailable DREAD WOLF Referring Unavailable DRAGAN PEPPER Attending Unavailable Medications Current Medications MedicationDrug Class(es)DatesSig (Normalized)Sig (Original)apixaban 5 mg oral tablet (5 sources)Factor Xa InhibitorStart: 10-89-4291bwif 1 tablet by mouth once daily Apixaban (Eliquis) 5 mg tablet Active 5 MG PO Daily January 10, 2021 12:00am aspirin 81 mg delayed release oral tablet (4 sources)Platelet Aggregation Inhibitor, Nonsteroidal Anti-inflammatory Drug take 1 tablet by mouth once dailyaspirin 81 MG EC tablet Take 81 mg by mouth Daily Activebumetanide 1 mg oral tablet (1 source)Loop DiureticStart: 76-66-4490wbwu 1 tablet by mouth once daily Bumetanide 1 mg tablet Active 1 MG PO Daily January 10, 2021 12:00am cholecalciferol 0.025 mg oral capsule (4 sources)Vitamin Dtake 1 capsule by mouth once dailycholecalciferol (Vitamin D-3) 25 MCG (1000 UT) capsule Take 1,000 Units by mouth Daily Activeclotrimazole 10 mg/ml topical cream (1 source)Azole AntifungalStart: 67-51-7076Gblojsiywxgs (Antifungal (Clotrimazole)) 1 % cream Active 1 APPLIC TOPICAL Twice daily 45 14 November 03, 2023 12:00amglimepiride 2 mg oral tablet (4 sources)Sulfonylureatake 1 tablet by mouth before mealtimeglimepiride (Amaryl) 2 MG tablet Take 2 mg by mouth in the morning. Take before meals. Activehydrocortisone acetate 25 mg rectal suppository (1 source)CorticosteroidStart: 67-68-0180Edvqmtirtydgzq Acetate 25 mg suppository Active 25 MG MA Twice daily January 10, 2021 12:00amhydrocortisone acetate 25 mg/ml / pramoxine hydrochloride 10 mg/ml topical cream (1 source)CorticosteroidStart: 91-71-2251Rpwgtvdkqvyrnz-Pramoxine 2.5-1 % cream Active 1 APPLIC TOPICAL Twice daily January 10, 2021 12:00amhyoscyamine sulfate 0.125 mg sublingual tablet (1 source)Start: 31-24-2627udfx 1 tablet by mouth once dailyHyoscyamine Sulfate 0.125 mg tablet, sublingual Active 0.125 MG PO Daily January 10, 2021 12:00am lisinopril 5 mg oral tablet (1 source)Angiotensin Converting Enzyme InhibitorStart: 17-79-4964abrs 1 tablet by mouth once dailyLisinopril 5 mg tablet Active 5 MG PO Daily January 10, 2021 12:00ammetFORMIN hydrochloride 500 mg oral tablet (1 source)BiguanideStart: 38-16-1711zyth 1 tablet by mouth twice dailyMetformin 500 mg tablet Active 500 MG PO Twice daily January 10, 2021 12:00ammetoprolol tartrate 50 mg oral tablet (1 source)beta-Adrenergic BlockerStart: 40-79-1444Jukhibflwn Tartrate 50 mg tablet Active 25 MG PO Twice daily January 10, 2021 12:00amsimvastatin 20 mg oral tablet (5 sources)HMG-CoA Reductase InhibitorStart: 27-25-1927omek 1 tablet by mouth once dailySimvastatin 20 mg tablet Active 20 MG PO Daily January 10, 2021 12:00am spironolactone 50 mg oral tablet (4 sources)Aldosterone Antagonisttake 1 tablet by mouth once dailyspironolactone (Aldactone) 50 MG tablet Take 50 mg by mouth Daily Active Problems Active Problems Problem ClassificationProblemDateDocumented DateEpisodic/ChronicAlcohol-related disorders (1 source)Alcohol dependence with withdrawal, unspecified; Translations: [ALCOHOL DEPENDENCE WITH WITHDRAWAL,UNSPECIFIED]Onset: 37-71-6876RerqfbeJqaqsdx dysrhythmias (1 source)Chronic atrial fibrillation; Translations: [CHRONIC ATRIAL FIBRILLATION]Onset: 07-16-2715PyncjeyQfssqhu dysrhythmias (4 sources)Bradycardia, unspecified; Translations: [BRADYCARDIA UNSPECIFIED] Onset: 43-22-2145UshvhkboGzpddqx obstructive pulmonary disease and bronchiectasis (1 source)Chronic obstructive pulmonary disease, unspecified; Translations: [COPD UNSPECIFIED]Onset: 86-08-8946DhekqrwQwimbecepn disorders (4 sources)Presence of cardiac pacemaker; Translations: [Encounter for adjustment and management of other partof cardiac pacemaker]Onset: 03-01-2025 ChronicCongestive heart failure; nonhypertensive (1 source)Unspecified diastolic (congestive) heart failure; Translations: [UNSPECIFIED DIASTOLIC HEART FAILURE]Onset: 91-88-3841BdejcsyTlqtgxkzkd and other anemia (1 source)Anemia, unspecified; Translations: [ANEMIA UNSPECIFIED]Onset: 63-29-7281MgkydtxhFthfvcur mellitus with complications (3 sources)Polyneuropathy due to type 2 diabetes mellitus; Translations: [Type 2 diabetes mellitus with diabetic polyneuropathy]51-34-3132NnbojosMkawdjcx mellitus without complication (1 source)Other abnormal glucose; Translations: [OTHER ABNORMAL GLUCOSE]Onset: 01-51-6783DbcbsnitLzvtpszma of lipid metabolism (4 sources)Hyperlipidemia, unspecified; Translations: [Mixed hyperlipidemia] Onset: 14-39-1748MpvqcwpQznrkvgce hypertension (7 sources)Essential (primary) hypertension; Translations: [ESSENTIAL (PRIMARY) HYPERTENSION]Onset: 09-91-0583YopxiqlJccqomyx Injury - Fall (1 source)Other fall on same level, initial encounter; Translations: [OTHER FALL ON SAME LEVEL, INITIAL ENCOUNTER]Onset: 16-50-8072Pacweoxbgbzu conditions of male genital organs (1 source)Balanitis; Translations: [Balanitis]92-80-4386NzxqigeDxvzbkv and fatigue (1 source)Other fatigue; Translations: [OTHER FATIGUE]Onset: 92-09-6049Zjrqoicy Mycoses (3 sources)Onychomycosis; Translations: [Tinea unguium]58-14-4409Mvzrnvli Nutritional deficiencies (1 source)Vitamin D deficiency, unspecified; Translations: [VITAMIN D DEFICIENCY UNSPECIFIED]Onset: 19-45-3499NqjdkylBfxys diseases of veins and lymphatics (2 sources)Venous insufficiency (chronic) (peripheral); Translations: [Venous insufficiency (chronic) (peripheral)]Onset: 80-24-4637HtzdnhnoGgcly lower respiratory disease (1 source)Other nonspecific abnormal finding of lung field; Translations: [Other nonspecific abnormal findingof lung field]Onset: 17-16-6002UyqgyjreLnvon lower respiratory disease (1 source)Dyspnea, unspecified; Translations: [DYSPNEA UNSPECIFIED]Onset: 53-68-2222MqafxygbFivlh non-traumatic joint disorders (1 source)Pain in unspecified joint; Translations: [PAIN IN UNSPECIFIED JOINT] Onset: 35-50-2246EptknyjcNoceb screening for suspected conditions (not mental disorders or infectious disease) (1 source)Encounter for screening for malignant neoplasm of prostate; Translations: [ENC SCREEN MALIG NEOPLASM PROSTATE]Onset: 96-17-0656AigrexctVnikd skin disorders (1 source)Callosity on toe; Translations: [Corns and callosities]10-03-2024 EpisodicOther skin disorders (3 sources)Dystrophia unguium; Translations: [Nail dystrophy]39-02-4266Wndlzwyp Other skin disorders (3 sources)Callosity; Translations: [Corns and callosities]79-03-1784Iaqillyk Other upper respiratory infections (1 source)Acute sinusitis, unspecified; Translations: [ACUTE SINUSITIS UNSPECIFIED]Onset: 68-46-9205SrmpkdfgYmvvkebcvg and visceral atherosclerosis (1 source)Peripheral vascular disease, unspecified; Translations: [PERIPHERAL VASCULAR DISEASE UNS]Onset: 66-21-9528IezzqetLiekxmmk; pneumothorax; pulmonary collapse (5 sources)Pleural effusion, not elsewhere classified; Translations: [Pleural plaque without asbestos]Onset: 71-34-4186RpsaazaaFsge and subcutaneous tissue infections (2 sources)Paronychia of toe of left foot; Translations: [Cellulitis of left toe]70-69-2164ErjtiljwUkrfvlvbyhvg (2 sources)Unknown / UNK(Unknown)Onset: 13-57-7359Hqpvxiiiydnq (4 sources)CONTACT W/AND (SUSP) EXPOS COVID-19; Translations: [CONTACT W/AND (SUSP) EXPOS COVID-19]Onset: 57-51-6361Uvppvrugvmwj (2 sources)Permanent atrial fibrillation; Translations: [Permanent atrial fibrillation]Onset: 06-05-2022 Past or Other Problems Problem ClassificationProblemDateDocumented DateEpisodic/ChronicE Codes: Fall (1 source)Unspecified fall, initial encounter; Translations: [UNSPECIFIED FALL INITIAL ENCOUNTER]Onset: 99-33-0082OpzcwfigDkoicrbgbr obstruction without hernia (4 sources)Partial intestinal obstruction, unspecified as to cause; Translations: [PART INTESTINAL OBST UNS ASTO CAU]Onset: 66-86-8281Tacndqwo Nonmalignant breast conditions (4 sources)Unspecified lump in right breast, subareolar; Translations: [UNSPEC LUMP IN RT BREAST SUBAREOLAR]Onset: 03-20-3897PgnmjnarNqea wounds of head; neck; and trunk (1 source)Laceration without foreign body of scalp, initial encounter; Translations: [LACERATION W/O FB SCALPINITIAL ENC]Onset: 54-82-7740IwsprynqAxqdl aftercare (1 source)intermediate frame tender (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; Translations: [TRACK WORKER (CURRENT) USE OF ANTICOAGULANTS]Onset: 27-77-6248OcxifpbfTuxjg aftercare (1 source)intermediate (current) use of oral hypoglycemic drugs; Translations: [TRACK WORKER USE ORAL HYPOGLYCEMIC DX]Onset: 98-76-8700RvyhsyuoAwmue aftercare (1 source)Other intermission coordinator (current) drug therapy; Translations: [OTH ASSISTED CURRENT DRUG THERAPY]Onset: 93-48-0864DgyvvozbItpyq connective tissue disease (3 sources)Rhabdomyolysis; Translations: [RHABDOMYOLYSIS]Onset: 06-13-2017 EpisodicOther fractures (1 source)Unspecified displaced fracture of sixth cervical vertebra, initial encounter for closed fracture; Translations: [UNS DSPL FX 6TH CV INIT JAY FX] Onset: 12-67-3517XgxmqnlxWhmvx injuries and conditions due to external causes (3 sources)Unspecified injury of head, initial encounter; Translations: [UNSPECIFIED INJURY HEAD INITIAL ENC]Onset: 07-69-6585TyxvtonxLsbde upper respiratory disease (1 source)Other diseases of bronchus, not elsewhere classified; Translations: [Other diseases of bronchus, not elsewhere classified]Onset: 21-71-0560Guddxnbk Screening or history of mental health and substance abuse (2 sources)Personal history of nicotine dependence; Translations: [PERSONAL HISTORY OF NICOTINE DEPENDENCE]Onset: 79-65-6131QlokgbpaHdzckqbxtlq; intervertebral disc disorders; other back problems (1 source)Dorsalgia, unspecified; Translations: [DORSALGIA, UNSPECIFIED]Onset: 49-30-9960MqsvhvuwPyxlcgqaopw injury; contusion (1 source)Contusion of scalp, initial encounter; Translations: [CONTUSION SCALP INITIAL ENCOUNTER]Onset: 94-95-2660JftczwwsFocuzfeefpum (1 source)CONTACT W/AND (SUSP) EXPOS COVID-19; Translations: [CONTACT W/AND (SUSP) EXPOS COVID-19]Onset: 08-20-2022 Results Test NameValueInterpretationReference RangeFacilityOffice Visiton 04-17-2025 Follow-up [id number] Desean Landry Jr. 1940 M Date Provider Department Center 04/17/2025 DRAGAN BALDWIN CARD [facility] Family History Problem Relation Age of Onset Cancer Mother Diabetes Brother Other Brother Family Status - Relation Status Age at Mother Brother Level of Service:94485 MA OFFICE/OUTPATIENT ESTABLISHED MOD [facility] Onlyon 85-63-4460[place] [id number] Desean Landry Jr. 1940 M Date Provider Department Center 02/28/2025 [facility]READ [facility] Family History Problem Relation Age of Onset Cancer Mother Family Status - Relation Status Age at MotherNormalUniversity Mercy HealthCBC AUTO DIFFon 28-69-6098PDCG # 0.1 103/ulNormal0.0-0.1[facility] HospitalComment on above:Performed By: #### CBC #### [facility] [address] [address] [address] Artem Choesophils/100 WBC (Bld)1.0 %Normal0.2-2.0The [facility] Comment on above:Performed By: #### CBC #### [facility] [address] [address] [address] Artem López #0.2 103/ulNormal0.0-0.7The [facility] CenterComment on above: Performed By: #### CBC #### [facility] [address] [address] [address] Artem Daveosinophils/100 WBC (Bld)2.0 %Normal0.9-7.0[facility] Comment on above:Performed By: #### CBC #### [facility] [address] [place] [address] Dr. Artem Daverythrocyte distribution width (RBC) [Ratio]13.1 %Fwuzuu94.0-15.0 [facility] HospitalComment on above:Performed By: #### CBC #### [facility] [address] [place] [address] Dr. Artem RojasHematocrit (Bld) [Volume fraction]43.8 %Tolfam01.0-54.0The [facility] CenterComment on above:Performed By: #### CBC #### [facility] [address] [place] [address] Dr. Artem RojasHemoglobin (Bld) [Mass/Vol]14.5 g/eGAvffda07.0-18.0The [facility] CenterComment on above:Performed By: #### CBC #### [facility] [address] [place] [address] Dr. Artem De Oliveira #0.07 10e3/ulCritically high0.00-0.03The [facility] Comment on above:Performed By: #### CBC #### [facility] [address] [place] [address] Dr. Artem De Oliveira %0.8 %Critically high0.0-0.5The [facility] CenterComment on above:Performed By: #### CBC #### [facility] [address] [place] [address] Dr. Artem MillsH #1.8 103/ulNormal1.2-3.8The [facility] CenterComment on above:Performed By: #### CBC #### [facility] [address] [place] [address] Dr. Artem Avalosmphocytes/100 WBC (Bld)20.0 %Critically low20.5-60.0The [facility] CenterComment on above:Performed By: #### CBC #### [facility] [address] [place] [address] Dr. Artem Ruelas DIFF REQNONormalThe [facility] CenterComment on above: Performed By: #### CBC #### [facility] [address] [place] [address] Dr. Artem Vega (RBC) [Entitic mass]30.0 adIhvqum36.9-34.0The [facility] HospitalComment on above:Performed By: #### CBC #### [facility] [address] [place] [address] Dr. Artem Vega (RBC) [Mass/Vol]33.1 g/yYWicywd86.9-35.2The [facility] CenterComment on above:Performed By: #### CBC #### [facility] [address] [place] [address] Dr. Artem Vega (RBC) [Entitic vol]90.7 dJXnahlb76.0-94.0The [facility] CenterComment on above:Performed By: #### CBC #### [facility] [address] [place] [address] Dr. Artem Bowen #0.8 103/ulNormal0.3-0.8The [facility] CenterComment on above:Performed By: #### CBC #### [facility] [address] [place] [address] Dr. Artem Cooleyocytes/100 WBC (Bld)8.7 %Normal1.7-12.0The [facility] Comment on above:Performed By: #### CBC #### [facility] [address] [place] [address] Dr. Artem Farrell #6.1 103/ulNormal1.4-6.5The [facility] CenterComment on above:Performed By: #### CBC #### [facility] [address] [place] [address] Dr. Artem oDssutrophils/100 WBC (Bld)67.5 %Wculsd18.0-75.0The [facility] CenterComment on above:Performed By: #### CBC #### [facility] [address] [place] [address] Dr. Artem RojasPlatelet mean volume (Bld) [Entitic vol]9.7 fLNormal9.5-13.5The [facility] CenterComment on above:Performed By: #### CBC #### [facility] [address] [place] [address] Dr. Artem RojasPLT333 103/vnBkmdza428-575Yqd [facility] CenterComment on above: Performed By: #### CBC #### [facility] [address] [place] [address] Dr. Artem RojasRBC4.83 106/ulNormal4.70-6.10The [facility] CenterComment on above:Performed By: #### CBC #### [facility] [address] [place] [address] Dr. Atrem RojasWBC9.0 103/ulNormal4.0-11.0The [facility] CenterComment on above: Performed By: #### CBC #### [facility] [address] [place] [address] Dr. Artem RojasPROF CHEM 8 (BAS METB)on 46-00-8093Cgerx gap [Moles/Vol]9.4 mmol/LNormalCleveland Clinic Fairview HospitalComment on above:Performed By: #### PTT, PT #### [facility] [address] [place] [address] Dr. Artem RojasCalcium [Mass/Vol]9.4 mg/dLNormal8.5-10.1The [facility] Comment on above:Performed By: #### PTT, PT #### [facility] [address] [place] [address] Dr. Artem RojasChloride [Moles/Vol]105 mmol/MXpyytf78-674Rce [facility] Comment on above:Performed By: #### PTT, PT #### [facility] [address] [place] [address] Dr. Artem RojasCO2 [Moles/Vol]29.3 mmol/RDnyevr88.0-32.0The [facility] Comment on above:Performed By: #### PTT, PT #### [facility] [address] [address] [address] Artem RojasCreatinine [Mass/Vol]1.06 mg/dLNormal0.70-1.30The [facility] Hospitalment on above:Performed By: #### PTT, PT #### [facility] [address] [address] [address] Artem DaveGFR-AF CYPRIOT>60Normal>=60The [facility] CenterComment on above:Performed By: #### PTT, PT #### [facility] [address] [address] [address] Artem DaveGFR-NON AF CYPRIOT>60Normal>=60The [facility] CenterComment on above:Performed By: #### PTT, PT #### [facility] [address] [address] [address] Artem RojasGlucose [Mass/Vol]125 mg/dLCritically dbfk72-807Vxx [facility] Hospitalment on above:Performed By: #### PTT, PT #### [facility] [address] [address] [address] Artem RojasPotassium [Moles/Vol]4.3 mmol/LNormal3.5-5.1The [facility] Comment on above:Performed By: #### PTT, PT #### [facility] [address] [address] [address] Artem RojasSodium [Moles/Vol]139 mmol/JIsuuns512-193Wwn [facility] Comment on above:Performed By: #### PTT, PT #### [facility] [address] [address] [address] Artem RojasUrea nitrogen [Mass/Vol]20.0 mg/dLCritically high7.0-18.0The [facility] CenterComment on above:Performed By: #### PTT, PT #### [facility] [address] [address] [address] Artem RojasUrea nitrogen/Creatinine [Mass ratio]18.9 mg/mgNormalThe [facility] CenterComment on above:Performed By: #### PTT, PT #### [facility] [address] [place] [address] Dr. Artem RojasCovid-19 PCR ([facility])on 27-55-8264BGUI-CoV-2 (COVID-19) RNA MONICA+probe Ql (Unsp spec)Not detectedNormalNOT DETECTEDThe [facility] Comment on above:Result Comment: When diagnostic testing is negative, the [...] for this test is supported by the [place] of Health and Human Service's declaration that circumstances exist to justify the emergency use of in vitro diagnostics for the detection and/or diagnosis of the virus that causes COVID-19. This EUA will remain in effect for the duration of the COVID-19 declaration justifying emergency of IVDs, unless it is terminated or revoked by the FDA (after which the test may no longer be used).Performed By: #### PTT, PT #### [facility] [address] [place] [address] Dr. Artem Yañez A AND B AGon 24-07-9773LDGPOGWBGFVLG BELOWKettering Health SpringfieldComment on above:Result Comment: Negative for Flu A protein angiten. Infection due to Flu A cannot be ruled out. FluA angiten in the sample may be below the detection limit of the test.Performed By: #### PTT, PT #### [facility] [address] [place] [address] Dr. Artem RiveraUBNEGTIERNEY [facility] on above: Result Comment: Negative for Flu B protein antigen. Infection due to Flu B cannot be ruled out. FluB antigen in the sample may be below the detection limit of the test.Performed By: #### PTT, PT #### [facility] [address] [place] [address] Dr. Artem Damon AGNegativeNormalNEGATIVE SEE COMMENTThe [facility] CenterComment on above:Performed By: #### PTT, PT #### [facility] [address] [place] [address] Dr. Artem Alexander AGNegativeNormalNEGATIVE SEE COMMENTThe [facility] CenterComment on above:Performed By: #### PTT, PT #### [facility] [address] [place] [address] Dr. Artem RojasINSULINon 27-45-9070Bcednqz25.3 uIU/mLNormal2.6-24.9The [facility] CenterComment on above:Performed By: #### PTT, PT #### [facility] [address] [place] [address] Dr. Artem Erwin 53-91-5662Ozscezlkqed peptide B (Bld) [Mass/Vol]1826.0 pg/mLCritically high<=1,800.0The [facility] CenterComment on above:Performed By: #### CMP, BNP, URIC, TSH, T7, LIPID #### [facility] [address] [place] [address] Dr. Artem Cage AUTO DIFFon 30-81-3750MLTN #0.1 103/ulNormal0.0-0.1The [facility] CenterComment on above:Performed By: #### PTT, PT #### [facility] [address] [place] [address] Dr. Artem RojasBasophils/100 WBC (Bld)1.0 %Normal0.2-2.0The [facility] Comment on above:Performed By: #### PTT, PT #### [facility] [address] [place] [address] Dr. Artem López #0.2 103/ulNormal0.0-0.7The [facility] CenterCombr[facility] on above: Performed By: #### PTT, PT #### [facility] [address] [place] [address] Dr. Artem Daveosinophils/100 WBC (Bld)2.4 %Normal0.9-7.0The [facility] Comment on above:Performed By: #### PTT, PT #### [facility] [address] [place] [address] Dr. Artem Daverythrocyte distribution width (RBC) [Ratio]13.8 %Uvaluc44.0-15.0 The [facility] CenterComment on above:Performed By: #### PTT, PT #### [facility] [address] [place] [address] Dr. Artem RojasHematocrit (Bld) [Volume fraction]44.1 %Xstzgt75.0-54.0The [facility] CenterComment on above:Performed By: #### PTT, PT #### [facility] [address] [place] [address] Dr. Artem RojasHemoglobin (Bld) [Mass/Vol]14.5 g/hOFonuzr60.0-18.0The [facility] CenterComment on above:Performed By: #### PTT, PT #### [facility] [address] [place] [address] Dr. Artem De Oliveira #0.02 10e3/ulNormal0.00-0.03The [facility] Medical CenterComment on above:Performed By: #### PTT, PT #### [facility] [address] [place] [address] Dr. Artem De Oliveira %0.2 %Normal0.0-0.5The [facility] Medical CenterComment on above: Performed By: #### PTT, PT #### [facility] [address] [place] [address] Dr. Artem MillsH #2.1 103/ulNormal1.2-3.8The [facility] CenterComment on above:Performed By: #### PTT, PT #### [facility] [address] [place] [address] Dr. Artem Avalosmphocytes/100 WBC (Bld)24.3 %Mtskkc04.5-60.0The [facility] CenterComment on above:Performed By: #### PTT, PT #### [facility] [address] [place] [address] Dr. Artem Ruelas DIFF REQNONormalThe [facility] CenterComment on above: Performed By: #### PTT, PT #### [facility] [address] [place] [address] Dr. Artem Vega (RBC) [Entitic mass]30.3 tzXxphtw31.9-34.0The [facility] CenterComment on above:Performed By: #### PTT, PT #### [facility] [address] [place] [address] Dr. Artem Vega (RBC) [Mass/Vol]32.9 g/kTEnpnpn54.9-35.2The [facility] CenterComment on above:Performed By: #### PTT, PT #### [facility] [address] [place] [address] Dr. Artem Vega (RBC) [Entitic vol]92.1 iWDlzkip94.0-94.0The [facility] CenterComment on above:Performed By: #### PTT, PT #### [facility] [address] [place] [address] Dr. Artem Bowen #0.8 103/ulNormal0.3-0.8The [facility] CenterComment on above:Performed By: #### PTT, PT #### [facility] [address] [place] [address] Dr. Artem Cooleyocytes/100 WBC (Bld)9.0 %Normal1.7-12.0The [facility] Comment on above:Performed By: #### PTT, PT #### [facility] [address] [place] [address] Dr. Artem Farrell #5.6 103/ulNormal1.4-6.5The [facility] CenterComment on above:Performed By: #### PTT, PT #### [facility] [address] [place] [address] Dr. Artem Dossutrophils/100 WBC (Bld)63.1 %Gahtrp61.0-75.0The [facility] CenterComment on above:Performed By: #### PTT, PT #### [facility] [address] [place] [address] Dr. Artem Linderlet mean volume (Bld) [Entitic vol]10.0 fLNormal9.5-13.5The [facility] CenterComment on above:Performed By: #### PTT, PT #### [facility] [address] [place] [address] Dr. Artem RojasPLT193 103/tuPbiugx344-243Ink [facility] CenterComment on above: Performed By: #### PTT, PT #### [facility] [address] [place] [address] Dr. Artem RojasRBC4.79 106/ulNormal4.70-6.10The [facility] CenterComment on above:Performed By: #### PTT, PT #### [facility] [address] [place] [address] Dr. Artem RojasWBC8.8 103/ulNormal4.0-11.0The [facility] CenterComment on above: Performed By: #### PTT, PT #### [facility] [address] [place] [address] Dr. Artem RojasFRERIK THYROXINE INDEX T7on 27-11-1691POZ1.50Czhgtm6.30-4.50The [facility] CenterComment on above:Performed By: #### CMP, BNP, URIC, TSH, T7, LIPID #### [facility] [address] [place] [address] Dr. Artem RojasT3U35.0 %Ljhiwr15.0-40.0The [facility] CenterComment on above: Performed By: #### CMP, BNP, URIC, TSH, T7, LIPID #### [facility] [address] [place] [address] Dr. Artem RojasT4 [Mass/Vol]7.20 ug/dLNormal4.50-12.10The [facility] on above:Performed By: #### CMP, BNP, URIC, TSH, T7, LIPID #### [facility] [address] [address] [address] Artem RojasGLYCOHEMOGLOBIN A1Con [id number] RECOMMENDATIONSEE BELOWSouthview Medical CenterCombronson [facility] on above:Result Comment: ADA RECOMMENDED LIMIT 4.0 - 6.0 ADA THERAPEUTIC TARGET < 7.0 ACTION SUGGESTED > 7.0Performed By: #### A1C #### [facility] [address] [address] [address] Artem RojasGlucose [Mass/Vol]128 mg/dLNoKindred HealthcareCombronson battle creek hospital on above:Performed By: #### A1C #### [facility] [address] [place] [address] Dr. Artem RojasHbA1c (Bld) [Mass fraction]6.1 %Normal4.5-6.2[facility] HospitalCom[facility] on above:Performed By: #### A1C #### [facility] [address] [place] [address] Dr. Artem RojasLIPID PROFILEon [id number]-HDL RATIO NORMSEE [facility]Com[facility] on above:Result Comment: 3.3 - 4.4 LOW RISK 4.4 - 7.1 AVERAGE RISK 7.1 - 11.0 MODERATE RISK >11.0 HIGH RISKPerformed By: #### CMP, BNP, URIC, TSH, T7, LIPID #### [facility] [address] [place] [address] Dr. Artem RojasCholesterol [Mass/Vol]157 mg/dLNormal<=200The [facility] Comment on above:Performed By: #### CMP, BNP, URIC, TSH, T7, LIPID #### [facility] [address] [place] [address] Dr. Artem RojasCholesterol in HDL [Mass/Vol]51 mg/rVGrfavw61-91Shb [facility] on above:Performed By: #### CMP, BNP, URIC, TSH, T7, LIPID #### [facility] [address] [place] [address] Dr. Artem RojasCholesterol in LDL [Mass/Vol]86.6 mg/dLNormalThe [facility] HospitalComment on above:Performed By: #### CMP, BNP, URIC, TSH, T7, LIPID #### [facility] [address] [place] [address] Dr. Artem RojasCholestercarmen.total/Cholesterol in HDL [Mass ratio]3.1 {ratio} NormalThe [facility] CenterComment on above:Performed By: #### CMP, BNP, URIC, TSH, T7, LIPID #### [facility] [address] [place] [address] Dr. Artem Stacy NORMAL> or = 60 mg/dl - LOW CARDIOVASCULAR RISK <40 mg/dl - HIGH CARDIOVASCULAR RISKKettering Health SpringfieldComment on above:Performed By: #### CMP, BNP, URIC, TSH, T7, LIPID #### [facility] [address] [place] [address] Dr. Artem Mensah CALC NORMALSEE BELOWKettering Health SpringfieldComment on above:Result Comment: <100 mg/dl OPTIMAL 100 - 129 mg/dl NEAR OR ABOVE OPTIMAL 130 - 159 mg/dl BORDERLINE HIGH 160 - 189 mg/dl HIGH >190 mg/dl VERY HIGH Performed By: #### CMP, BNP, URIC, TSH, T7, LIPID #### [facility] [address] [place] [address] Dr. Artem RojasTriglyceride [Mass/Vol]97 mg/dLNormal<=150The [facility] Comment on above:Performed By: #### CMP, BNP, URIC, TSH, T7, LIPID #### [facility] [address] [place] [address] Dr. Artem BhattiLDL CALC19.4 mg/dLNoKindred HealthcareComment on above: Performed By: #### CMP, BNP, URIC, TSH, T7, LIPID #### [facility] [address] [place] [address] Dr. Artem Oseguera 14(COMP METB)on 38-92-2593Zvknfxt [Mass/Vol]3.5 g/dLNormal 3.4-5.0The [facility] CenterComment on above:Performed By: #### CMP, BNP, URIC, TSH, T7, LIPID #### [facility] [address] [place] [address] Dr. Artem RojasAlbumin/Globulin [Mass ratio]1.1 {ratio}NormalThe [facility] on above:Performed By: #### CMP, BNP, URIC, TSH, T7, LIPID #### [facility] [address] [place] [address] Dr. Artem Hernandez [Catalytic activity/Vol]70 U/QMeietb37-599Kdw [facility] CenterCombr[facility] on above:Performed By: #### CMP, BNP, URIC, TSH, T7, LIPID #### [facility] [address] [place] [address] Dr. Artem Coulter [Catalytic activity/Vol]19 U/SHktabx68-14Ann [facility] Hospitalment on above:Performed By: #### CMP, BNP, URIC, TSH, T7, LIPID #### [facility] [address] [place] [address] Dr. Artem Diallo gap [Moles/Vol]11.7 mmol/LNormalThe [facility] Comment on above:Performed By: #### CMP, BNP, URIC, TSH, T7, LIPID #### [facility] [address] [place] [address] Dr. Artem Aponte [Catalytic activity/Vol]18 U/WFafayk74-18Okg [place] [facility] Hospitalment on above:Performed By: #### CMP, BNP, URIC, TSH, T7, LIPID #### [facility] [address] [place] [address] Dr. Artem RojasBilirubin [Mass/Vol]0.5 mg/dLNormal0.2-1.0The [facility] Comment on above:Performed By: #### CMP, BNP, URIC, TSH, T7, LIPID #### [facility] [address] [place] [address] Dr. Artem RojasCalcium [Mass/Vol]9.3 mg/dLNormal8.5-10.1[facility] Comment on above:Performed By: #### CMP, BNP, URIC, TSH, T7, LIPID #### [facility] [address] [address] [address] Artem RojasChloride [Moles/Vol]105 mmol/IAdrzhz92-892Bvf [facility] Comment on above:Performed By: #### CMP, BNP, URIC, TSH, T7, LIPID #### [facility] [address] [place] [address] Dr. Artem RojasCO2 [Moles/Vol]29.7 mmol/SYznqrx49.0-32.0The [facility] Comment on above:Performed By: #### CMP, BNP, URIC, TSH, T7, LIPID #### [facility] [address] [place] [address] Dr. Artem RojasCreatinine [Mass/Vol]0.87 mg/dLNormal0.70-1.30The [facility] CenterComment on above:Performed By: #### CMP, BNP, URIC, TSH, T7, LIPID #### [facility] [address] [place] [address] Dr. Artem DaveGFR-AF CYPRIOT>60Normal>=60The [facility] CenterComment on above:Performed By: #### CMP, BNP, URIC, TSH, T7, LIPID #### [facility] [address] [place] [address] Dr. Artem DaveGFR-NON AF CYPRIOT>60Normal>=60The [facility] CenterComment on above:Performed By: #### CMP, BNP, URIC, TSH, T7, LIPID #### [facility] [address] [place] [address] Dr. Artem RojasGlobulin (S) [Mass/Vol]3.3 g/dLNormalThe [facility] CenterComment on above:Performed By: #### CMP, BNP, URIC, TSH, T7, LIPID #### [facility] [address] [place] [address] Dr. Artem RojasGlucose [Mass/Vol]118 mg/dLCritically peju13-211Jyj [facility] CenterComment on above:Performed By: #### CMP, BNP, URIC, TSH, T7, LIPID #### [facility] [address] [place] [address] Dr. Artem RojasPotassium [Moles/Vol]4.4 mmol/LNormal3.5-5.1The [facility] Comment on above:Performed By: #### CMP, BNP, URIC, TSH, T7, LIPID #### [facility] [address] [place] [address] Dr. Artem RojasProtein [Mass/Vol]6.8 g/dLNormal6.4-8.2The [facility] Comment on above:Performed By: #### CMP, BNP, URIC, TSH, T7, LIPID #### [facility] [address] [place] [address] Dr. Artem RojasSodium [Moles/Vol]142 mmol/XQuzlsl454-233Pzy [facility] Comment on above:Performed By: #### CMP, BNP, URIC, TSH, T7, LIPID #### [facility] [address] [place] [address] Dr. Artem RojasUrea nitrogen [Mass/Vol]19.0 mg/dLCritically high7.0-18.0The [facility] CenterComment on above:Performed By: #### CMP, BNP, URIC, TSH, T7, LIPID #### [facility] [address] [place] [address] Dr. Artem Church nitrogen/Creatinine [Mass ratio]21.8 mg/mgNormalThe [facility] CenterComment on above:Performed By: #### CMP, BNP, URIC, TSH, T7, LIPID #### [facility] [address] [place] [address] Dr. Artem Adams 61-29-6382HSU9.773 uIU/mLNormal0.358-3.740[facility] HospitalComment on above:Performed By: #### CMP, BNP, URIC, TSH, T7, LIPID #### [facility] [address] [place] [address] Dr. Artem RojasURIC ACID SERUMon 37-91-8637Wascy [Mass/Vol]5.8 mg/dLNormal 3.5-7.2The [facility] CenterComment on above:Performed By: #### CMP, BNP, URIC, TSH, T7, LIPID #### [facility] [address] [place] [address] Dr. Artem RojasVITAMIN D 25 OHon 03-31-1867RAB D 25-OH65.5 ng/mLNormalCleveland Clinic Fairview HospitalComment on above:Performed By: #### PTT, PT #### [facility] [address] [place] [address] Dr. Artem Bailey D [place]ANGES[place] BELOWKettering Health SpringfieldComment on above: Result Comment: <20 ng/mL Vit D deficient 20 - <30 ng/mL Vit D insufficient 30 - 100 ng/mL Vit D sufficient >100 ng/mL Potential ToxicityPerformed By: #### PTT, PT #### [facility] [address] [place] [address] Dr. Artem RosarioC AUTO DIFFon 28-27-9329LFWP #0.1 103/ulNormal0.0-0.1The [facility] CenterComment on above:Performed By: #### PTT, PT #### [facility] [address] [place] [address] Dr. Artem RojasBasophils/100 WBC (Bld)0.5 %Normal0.2-2.0[facility] Comment on above:Performed By: #### PTT, PT #### [facility] [address] [place] [address] Dr. Artem López #0.0 103/ulNormal0.0-0.7The [facility] CenterComment on above: Performed By: #### PTT, PT #### [facility] [address] [place] [address] Dr. Artem Daveosinophils/100 WBC (Bld)0.1 %Critically low0.9-7.0The [facility] CenterComment on above:Performed By: #### PTT, PT #### [facility] [address] [place] [address] Dr. Artem Daverythrocyte distribution width (RBC) [Ratio]12.9 %Pnssnf39.0-15.0 The [facility] CenterComment on above:Performed By: #### PTT, PT #### [facility] [address] [place] [address] Dr. Artem RojasHematocrit (Bld) [Volume fraction]39.7 %Critically low42.0-54.0 The [facility] CenterComment on above:Performed By: #### PTT, PT #### [facility] [address] [place] [address] Dr. Artem RojasHemoglobin (Bld) [Mass/Vol]13.1 g/dLCritically low14.0-18.0[facility] HospitalComment on above:Performed By: #### PTT, PT #### [facility] [address] [place] [address] Dr. Artem De Oliveira #0.05 10e3/ulCritically high0.00-0.03The [facility] Comment on above:Performed By: #### PTT, PT #### [facility] [address] [place] [address] Dr. Artem De Oliveira %0.4 %Normal0.0-0.5The [facility] CenterComment on above: Performed By: #### PTT, PT #### [facility] [address] [place] [address] Dr. Artem Peters #0.8 103/ulCritically low1.2-3.8The [facility] Comment on above:Performed By: #### PTT, PT #### [facility] [address] [place] [address] Dr. Artem Millshocytes/100 WBC (Bld)5.7 %Critically low20.5-60.0[facility] HospitalComment on above:Performed By: #### PTT, PT #### [facility] [address] [place] [address] Dr. Artem WolfUAL DIFF REQNONormalThe [facility] CenterComment on above: Performed By: #### PTT, PT #### [facility] [address] [place] [address] Dr. Artem Perrin (RBC) [Entitic mass]31.5 wvAvmlob74.9-34.0The [facility] CenterComment on above:Performed By: #### PTT, PT #### [facility] [address] [place] [address] Dr. Artem Vega (RBC) [Mass/Vol]33.0 g/eLRtjsaq48.9-35.2The [facility] CenterComment on above:Performed By: #### PTT, PT #### [facility] [address] [place] [address] Dr. Artem Vega (RBC) [Entitic vol]95.4 fLCritically high80.0-94.0The [facility] CenterComment on above:Performed By: #### PTT, PT #### [facility] [address] [place] [address] Dr. Artem Bowen #1.0 103/ulCritically high0.3-0.8The [facility] Comment on above:Performed By: #### PTT, PT #### [facility] [address] [place] [address] Dr. Artem Cooleyocytes/100 WBC (Bld)7.4 %Normal1.7-12.0[facility] Comment on above:Performed By: #### PTT, PT #### [facility] [address] [place] [address] Dr. Artem Farrell #11.4 103/ulCritically high1.4-6.5The [facility] Comment on above:Performed By: #### PTT, PT #### [facility] [address] [place] [address] Dr. Artem Dossutrophils/100 WBC (Bld)85.9 %Critically high43.0-75.0The [facility] CenterComment on above:Performed By: #### PTT, PT #### [facility] [address] [place] [address] Dr. Artem Linderlet mean volume (Bld) [Entitic vol]10.8 fLNormal9.5-13.5The [facility]ly HospitalComment on above:Performed By: #### PTT, PT #### [facility] [address] [address] [address] Artem RojasPLT164 103/zcTfsxcw834-650Nol [facility] CenterComment on above: Performed By: #### PTT, PT #### [facility] [address] [place], [place] [address] Dr. Artem RojasRBC4.16 106/ulCritically low4.70-6.10The [facility] CenterComment on above:Performed By: #### PTT, PT #### [facility] [address] [place], [place] [address] Dr. Artem RojasWBC13.2 103/ulCritically high4.0-11.0The [facility] CenterComment on above:Performed By: #### PTT, PT #### [facility] [address] [place] [address] Dr. Artem RojasCT CSPINE WO CONon [id number] [facility] WO CONEXAMINATION: CT CSPINE WO CON HISTORY: UNSPECIFIED INJURY OF HEAD, [...] Electronically authenticated by: WILLIAM ARIAS Date: 2022-03-02 17:51NoKindred HealthcareCT HEAD WO CONon [id number] HEAD WO CONCLINICAL HISTORY: UNSPECIFIED INJURY OF HEAD, INITIAL ENCOUNTER. Status post [...] Electronically authenticated by: NISSA VIGIL Date: 2022-03-02 17:40[facility] SpringfieldCovid-19 PCR (CVDTBH)on 97-73-0855RKZE-CoV-2 (COVID-19) RNA MONICA+probe Ql (Unsp spec)Not detectedNormalNOT DETECTEDThe [facility] Comment on above:Result Comment: When diagnostic testing is negative, the [...] for this test is supported by the [place] of Health and Human Service's declaration that circumstances exist to justify the emergency use of in vitro diagnostics for the detection and/or diagnosis of the virus that causes COVID-19. This EUA will remain in effect for the duration of the COVID-19 declaration justifying emergency of IVDs, unless it is terminated or revoked by the FDA (after which the test may no longer be used).Performed By: #### PTT, PT #### [facility] [address] [place] [address] Dr. Artem RojasGASTROCCULTon [id number]rvhLWFGAZCZXzs [facility] CenterComment on above:Performed By: #### PTT, PT #### [facility] [address] [place] [address] Dr. Artem RojasPH LEFMKBF1LmtgpmTdf [facility] CenterComment on above:Performed By: #### PTT, PT #### [facility] [address] [place] [address] Dr. Artem RojasPROF 14(COMP METB)on 12-28-6541Euvidnp [Mass/Vol]3.6 g/dLNormal 3.4-5.0The [facility] CenterComment on above:Performed By: #### PTT, PT #### [facility] [address] [place] [address] Dr. Artem RojasAlbumin/Globulin [Mass ratio]1.3 {ratio}NormalThe [facility] on above:Performed By: #### PTT, PT #### [facility] [address] [place] [address] Dr. Artem RojasALP [Catalytic activity/Vol]65 U/MLuqdav30-012Igb [place] [facility] Hospitalment on above:Performed By: #### PTT, PT #### [facility] [address] [place] [address] Dr. Artem RhoadesT [Catalytic activity/Vol]12 U/LCritically gkz76-73Lbv [facility] CenterComment on above:Performed By: #### PTT, PT #### [facility] [address] [place] [address] Dr. Artem RojasAnion gap [Moles/Vol]12.8 mmol/LNormalC[facility] Clinic [facility] Comment on above:Performed By: #### PTT, PT #### [facility] [address] [place] [address] Dr. Artem RojasAST [Catalytic activity/Vol]15 U/WHwclej36-93Imd [facility] CenterComment on above:Performed By: #### PTT, PT #### [facility] [address] [place] [address] Dr. Artem RojasBilirubin [Mass/Vol]1.1 mg/dLCritically high0.2-1.0The [facility] CenterComment on above:Performed By: #### PTT, PT #### [facility] [address] [place] [address] Dr. Artem RojasCalcium [Mass/Vol]9.0 mg/dLNormal8.5-10.1[facility] Comment on above:Performed By: #### PTT, PT #### [facility] [address] [place] [address] Dr. Artem RojasChloride [Moles/Vol]104 mmol/OApyyav37-506KrdCleveland Clinic Fairview Hospital Comment on above:Performed By: #### PTT, PT #### [facility] [address] [place] [address] Dr. Atrem RojasCO2 [Moles/Vol]25.8 mmol/IWhzwae09.0-32.0[facility] Comment on above:Performed By: #### PTT, PT #### [facility] [address] [place] [address] Dr. Artem RojasCreatinine [Mass/Vol]1.06 mg/dLNormal0.70-1.30The [facility] CenterComment on above:Performed By: #### PTT, PT #### [facility] [address] [address] [address] Artem DaveGFR-AF CYPRIOT>60Normal>=60The [facility] CenterComment on above:Performed By: #### PTT, PT #### [facility] [address] [address] [address] Artem DaveGFR-NON AF CYPRIOT>60Normal>=60The [facility] CenterComment on above:Performed By: #### PTT, PT #### [facility] [address] [address] [address] Artem RojasGlobulin (S) [Mass/Vol]2.8 g/dLNormalThe [facility] CenterComment on above:Performed By: #### PTT, PT #### [facility] [address] [place] [address] Dr. Artem RojasGlucose [Mass/Vol]104 mg/rDKuvlfe50-928Kiy [facility] Comment on above:Performed By: #### PTT, PT #### [facility] [address] [place] [address] Dr. Artem RojasPotassium [Moles/Vol]4.6 mmol/LNormal3.5-5.1The [facility] Comment on above:Performed By: #### PTT, PT #### [facility] [address] [place] [address] Dr. Artem RojasProtein [Mass/Vol]6.4 g/dLNormal6.4-8.2The [facility] Comment on above:Performed By: #### PTT, PT #### [facility] [address] [place] [address] Dr. Artem RojasSodium [Moles/Vol]138 mmol/SYcvqtv538-962Pxi [facility] Comment on above:Performed By: #### PTT, PT #### [facility] [address] [place] [address] Dr. Artem RojasUrea nitrogen [Mass/Vol]13.0 mg/dLNormal7.0-18.0The [facility] CenterComment on above:Performed By: #### PTT, PT #### [facility] [address] [address] [address] Artem Church nitrogen/Creatinine [Mass ratio]12.3 mg/mgNoKindred HealthcareComment on above:Performed By: #### PTT, PT #### [facility] [address] [place] [address] Dr. Artem ByrdIMErivera [id number] Coag (PPP) [Relative time]1.23 {INR} NormalThe [facility]Patterson Medical CenterComment on above:Performed By: #### PTT, PT #### [facility] [address] [place] [address] Dr. Artem Brito GUIDELINESSEE Dunlap Memorial HospitalComment on above:Result Comment: DESIRED INR: 2.0 - 3.0 CONDITIONS NOT LISTED BELOW 2.5 - 3.5 FOR PROSTHETIC HEART VALVE REPLACEMENT 2.5 - 3.5 RECURRENT THROMBOSIS Performed By: #### PTT, PT #### [facility] [address] [place] [address] Dr. Artem RojasPT Coag (PPP) [Time]13.1 sCritically high9.0-11.6The [facility] Medical CenterComment on above:Performed By: #### PTT, PT #### [facility] [address] [place] [address] Dr. Artem Valdivia [id number] Coag (Bld) [Time]28.5 tMeaiic10.3-36.2[facility] Fairview HospitalComment on above:Performed By: #### PTT, PT #### [facility] [address] [place] [address] Dr. Artem RojasXR KNEE RT 1_2 Von [id number] KNEE RT 1_2 VXR KNEE RT 1_2 V: HISTORY: Pain. COMPARISON: [...] Electronically authenticated by: MATTHEW CHADWICK Date: 2022-03-02 20:49NoKindred HealthcareOVA AND PARASITE EXAMINATIONon [id number] + Parasite Exam Final reportThe University of [facility] on above:Result Comment: These results were obtained using wet preparation(s) and trichrome stained smear. This test does not include testing for Cryptosporidium parvum, Cyclospora, or Microsporidia.Performed By: #### PTT, PT #### [facility] [address] [place] [address] Dr. Artem Montero 1CommentNoKindred HealthcareCombronson battle creek hospital on above:Result Comment: No ova, cysts, or parasites seen. . One negative specimen does not rule out the possibility of a parasitic infection.Performed By: #### PTT, PT #### [facility] [address] [place] [address] Dr. Artem Bhatt PANEL (PCR)on [id number] F 40/41Not detectedNormal NOT DETECTEDThe [facility]terson Medical CenterComment on above:Performed By: #### PTT, PT #### [facility] [address] [place] [address] Dr. Artem RojasAstrovirusNot detectedNormalNOT DETECTEDThe [facility] Comment on above:Performed By: #### PTT, PT #### [facility] [address] [place] [address] Dr. Artem Patel. Diff toxin A/BNot detectedNormalNOT DETECTEDThe [facility] Medical CenterComment on above:Performed By: #### PTT, PT #### [facility] [address] [place] [address] Dr. Artem BernsteinpylobacterNot detectedNormalNOT DETECTEDThe [facility] Comment on above:Performed By: #### PTT, PT #### [facility] [address] [place] [address] Dr. Artem LopezyptosporidiumNot detectedNormalNOT DETECTEDThe [facility] Medical CenterComment on above:Performed By: #### PTT, PT #### [facility] [address] [address] [address] Artem Rose. CayetanensisNot detectedNormalNOT DETECTEDThe [facility] CenterComment on above:Performed By: #### PTT, PT #### [facility] [address] [place] [address] Dr. Artem Cabrera Coli G545Fnk ApplicableNormalNot ApplicableThe [facility] Medical CenterComment on above:Performed By: #### PTT, PT #### [facility] [address] [address] [address] Artem Cabrera histolyticaNot detectedNormalNOT DETECTEDThe [facility] Comment on above:Performed By: #### PTT, PT #### [facility] [address] [place] [address] Dr. Artem DaveAECNot detectedNormalNOT DETECTEDThe [facility] Medical CenterComment on above:Performed By: #### PTT, PT #### [facility] [address] [place] [address] Dr. Artem DaveIECNot detectedNormalNOT DETECTEDThe [facility] CenterCombronson battle [facility] hospital on above:Performed By: #### PTT, PT #### [facility] [address] [place] [address] Dr. Artem DavePECNot detectedNormalNOT DETECTEDThe [facility] CenterCombronson battle creek hospital on above:Performed By: #### PTT, PT #### [facility] [address] [place] [address] Dr. Artem DaveTECNot detectedNormalNOT DETECTEDThe [facility] CenterComment on above:Performed By: #### PTT, PT #### [facility] [address] [place] [address] Dr. Artem Gandhi. LambliaNot detectedNormalNOT DETECTEDThe [facility] Comment on above:Performed By: #### PTT, PT #### [facility] [address] [place] [address] Dr. Artem Lea CONTROLSPASSUniversity Hospitals Health SystemComment on above:Performed By: #### PTT, PT #### [facility] [address] [address] [address] Artem WEBER HEADERGI [facility] Comment on above:Performed By: #### PTT, PT #### [facility] [address] [address] [address] Artem Carmona ECOLIGI PANEL DIARRHEAGENIC E.COLI / SHIGELLAKettering Health SpringfieldComment on above:Performed By: #### PTT, PT #### [facility] [address] [address] [address] Artem Carmona INFOSECincinnati VA Medical CenterComment on above: Result Comment: EAEC- Enteroaggregative E. Coli EPEC- Enteropathogenic E. Coli ETEC- Enterotoxigenic E. Coli lt/st STEC- Shigella-like toxin-producing E. Coli stx1/stx2 EIEC- Shigella/Enteroinvasive E. ColiPerformed By: #### PTT, PT #### [facility] [address] [address] [address] Artem Carmona PARASITESGI PANEL PARASITESKettering Health Springfield Comment on above:Performed By: #### PTT, PT #### [facility] [address] [address] [address] Artem Carmona VIRUSGI PANEL VIRUSESKettering Health SpringfieldComment on above:Performed By: #### PTT, PT #### [facility] [address] [address] [address] Artem Mccurdyvirus GI/GIINot detectedNormalNOT DETECTEDThe [facility] CenterCombronson battle creek hospital on above:Performed By: #### PTT, PT #### [facility] [address] [address] [address] Artem Middleton ShigelloidesNot detectedNormalNOT DETECTEDThe [facility] Medical CenterComment on above:Performed By: #### PTT, PT #### [facility] [address] [address] [address] Artem RojasRotavirus ANot detectedNormalNOT DETECTEDThe [facility] Comment on above:Performed By: #### PTT, PT #### [facility] [address] [address] [address] Artem RojasSalmonellaNot detectedNormalNOT DETECTEDThe [facility] Comment on above:Performed By: #### PTT, PT #### [facility] [address] [address] [address] Artem RojasSapovirusNot detectedNormalNOT DETECTEDThe [facility] Comment on above:Performed By: #### PTT, PT #### [facility] [address] [address] [address] Artem RojasSTECNot detectedNormalNOT DETECTEDThe [facility] CenterComment on above:Performed By: #### PTT, PT #### [facility] [address] [address] [address] Artem EllisonbrioNot detectedNormalNOT DETECTEDThe [facility] CenterComment on above:Performed By: #### PTT, PT #### [facility] [address] [address] [address] Artem Espinalio CholeraNot detectedNormalNOT DETECTEDCleveland Clinic Fairview Hospital Comment on above:Performed By: #### PTT, PT #### [facility] [address] [place] [address] Dr. Artem Alexander. EnterocoliticaNot detectedNormalNOT DETECTEDThe [facility] Medical CenterComment on above:Performed By: #### PTT, PT #### [facility] [address] [address] [address] Artem Bardalessultation Noteon [id number] Note [id number]#1.00CD:[address] [place], [place] [address]RAD - MISCon [id number] - MISC [id number]#1.00CD:[address] [place], [place] [address]Glucose Poct Glucometerson 46-10-3507Ggitalr [Mass/Vol]108 mg/dLNormal [facility]ty Hospital - YoungstownComment on above:Result Comment: Random Glucose Reference Range is dependent on time and content of last meal. Glucose of more than 200 mg/dL in a nonstressed, ambulatory subject supports the diagnosis of Diabetes Mellitus. PERFORMED BY: [facility] [place] [address] PATHOLOGIST PERFORMANCE IMPROVEMENT MANAGER SARY APARICIO M.D.Performed By: #### GLULS #### Point of Care testing ,[place] 01-10-2021 Specimen: [id number] Received: 01/10/21 Status: WILFREDO Mckeon Num: [id number] Spec Type: Surgical Subm Dr: Shane Snell MD Tissues: A Colon - Polyp (CECUM) B Colon - Polyp (SIGMOID) Procedures: HE Stain/4, Gross/Micro L4/2 Patient Age/Sex Location Account Attending Physician Desean Landry JR 80/M [id number] Shane Snell MD SPEC NUM: [id number] RECD: 01/10/21 STATUS: WILFREDO MCKEON NUM: [id number] MICAH: 01/10/21 DR: Shane Snell MD ENTERED: 01/10/21 [facility] DR: SATHISH TYPE: Surgical DEPT: S [...] findings support the above pathologic diagnosis. Specimen: [id number] Received: 01/10/21 Status: WILFREDO Mckeon Num: [id number] Spec Type: Surgical Subm Dr: Shane Snell MD Tissues: A Colon - Polyp (CECUM) B Colon - Polyp (SIGMOID) Procedures: HE Stain/4, Gross/Micro L4/2 Patient: Desean Landry JR [id number] (Continued) Specimen: [id number] Received: 01/10/21 (Continued) Signed (signature on file) Randi Ji MD 01/11/21 1809 Specimen: [id number] Received: 01/10/21 Status: WILFREDO Mckeon Num: [id number] Spec Type: Surgical Subm Dr: Shane Snell MD Tissues: A Colon - Polyp (CECUM) B Colon - Polyp (SIGMOID) Procedures: HE Stain/4, Gross/Micro L4/2 Patient: Desean Landry JR [id number] (Continued) Specimen: [id number] Received: 01/10/21 (Continued) CPT Codes 33318?2 Specimen: [id number] Received: 01/10/21 Status: WILFREDO Mckeon Num: [id number] Spec Type: Surgical Subm Dr: Shane Snell MD Tissues: A Colon - Polyp (CECUM) B Colon - Polyp (SIGMOID) Procedures: HE Stain/4, Gross/Micro L4/2 Patient: Desean Landry [id number] (Continued) Signed (signature on file) Randi Ji MD 01/11/21 1809 CentervilleCNCOon [id number] TextOctlouisville medical center 2017[address] [place], [place] [address]KETW: Desean LandryJOEL NO.: [id number] OF SERVICE: 04/06/2018Dept. of Pulmonary and Critical Care MedicineDear Mr. Landry,Attached please find a copy of your CAT scan chest report from March.Please contact me if I can contribute further in your health care management.Best regards.Yours sincerely,Cesar Rowley M.D., F.C.C.P.HC:EnclosureNoKindred Hospital DaytonCT CHEST WO IVCONon [id number] CHEST WO IVCON* * *Final Report* * *DATE OF EXAM: Apr 06 2018 12:50PM [facility] 0541 - CT CHEST WO IVCON / [...] chest performed 09/10/2017RESULT:Limitations: Mild respiratory motion artifact.Lines, tubes,and devices: None.Lung parenchyma and pleura: A small [...] The heart is enlarged. Coronary artery atherosclerotic calc ifications are noted. No pericardial effusion or thickening. [...] Apr 07 2018 8:13ADictated by: ESTHER TEJEDA MDThierica examination was interpreted and the report reviewed and electronically signed by: Navneet DOWNS Apr 07 2018 11:01AM ESTThank you for allowing us to participate in the care of your patient.Should there be any questions regarding this interpretation, please call [phone].If you are unable to reach us at the number above,please feel free to contact [facility] eRadiology at [phone]_IDCSIACNNormalLicking Memorial HospitalPROGRESSon [id number] mass concHNO ID: [id number]: Venita Lr: (none)Author Type: (none)Type: Progress NotesFiled: 04/06/2018 12:57 PMNote Text: Radiology Service Progress NotePATIENT NAME: Desean LandryMRN: [id number] OF SERVICE: April 06, 2018TIME: 12:28 PMPATIENT IDENTITY VERIFICATION COMPLETED USING TWO (2) METHODS: Patientconfirmed name verbally and ID band matches..PATIENT GENDER DATA: MalePATIENT RELEVANT IMPLANT DATA REVIEWED: Not ApplicableRADIOLOGY DEPARTMENT: CT; Exam(s) Completed: ChestPERIPHERAL IV DATA: Not applicableSIGNED BY: Venita Lee 2017 12:28 PMNormalCleveland Clinic Akron GeneralOVon [id number] Visit (PULMMN) --------FRANTZDESEAN ([id number]) 1940 MDate Time Provider Department09/10/17 9:55 AM CESAR ROWLEY During your visit today, we recorded the following information about you: Temperature Pulse Respiration Blood pressure 97.7 degrees 75/minute 18/minute 125/68 Weight Height 90.3 kg 1.753 Ritika Rowley MD 09/10/2017 12:26 PM SignedPULMONARY CLINICPATIENT NAME: Desean LandryMRN: [id number] CARE PHYSICIAN: Diogenes Casiano, MDCommunication will be [...] Ht 5' 9ANDquot; (1.75m) Wt 199 lb(90.3kg) OzG188% BMI 29.37 kg/(m2).GENERAL: No distressSKIN: . No rashes or lesions.OROPHARYNX: Oropharynx normal. No erythema. No thrush.LYMPH: No neck adenopathyLUNGS: Lungs clear to auscultation bilateral. No wheezing. No ronchi. No ralesCARDIAC: normal S1 and F8DTNRUNO: Abdomen soft.EXTREMETIES: No deformities. No LE edema. RLE with hyperpigmented area. Looksimproved from 07/2017 as the skin erosion impro chel.PSYCH: Alert, oriented X 3PULSES: 2+ radialDATA:CT chest 09/10/2017 reviewedASSESSMENT ANDamp; PLAN:76 yo MFormer smokerETOH abuseAfibHTNDyslipidemiaHospital admission 06/2017 for dehydration and rh abdomyolysis caused byencephalopathy of unclear etiology. Suspected ETOH intoxication.?Right pleural effusion.CXR and CT chest 06/2017 showed Loculated effusions in the right chestassociated with opacities and atelectasis in the RLL.I reviewed the images with Mr Landry and his legal guardian Blanca Bowen. Theleft small pleural effusion, the loculated right pleural effusion andinter- fissure effusions have improved. The RLL atelectasis with calcificationlooks grossly stable.I discussed the differential diagnosis with Mr Landry and his legal guardian.The effusions were likely secondary to aspiration pneumonia. The RLLatelectasis could be chronic.He is clinically much improved and living independently again.?Pleural calcifications.Suspected pleural plaques from asbestos exposure.I reviewed the available chest images independently.RTC in 6- 12 months.Cesar Rowley, MDPulmonary and Critical Care MedicineDATE: September 10, 2017TIME: 9:30 AMReferring Provider: SELF [200]Allergies As of Date: 09/10(No Known Allergies)Date Reviewed: 09/10/2017Reviewed by: Precious Jones Ma - Fully AssessedReason for Visit: Recheck [92]Primary Visit Diagnosis:Pleural effusion [J90] Other Visit Diagnoses:Lung nodules [R91.8] Atelectasis [J98.11] Pleural calcification [J94.8]Order(s):CT CHEST WO IVCON [[id number]] Order #: [id number] FUTUREProblem List As Of Date: 09/10/2017(None)Disposition: Return in about 6 months (around 03/13/2018).Follow-up and Disposition History RecordedEncounter Number: [id number] Status:Closed by CESAR ROWLEY MD on 09/10/17[facility] HospitalCT CHE[facility] WO IVCONon [id number] CHEST WO IVCON* * *Final Report* * *DATE OF EXAM: Sep 10 2017 9:05AM [facility] - CT CHEST WO IVCON / REASON: multiple diagnoses * * * * Physician Interpretation * * * * EXAMINATION: CHEST CT WITHOUT CONTRASTIndication: Pleural effusion, not elsewhere classified Pleural plaque without asbestosTechnique: Spiral CT acquisition of the chest from the thoracic inlet to the upper abdomenwithout contrast.MQ: [id number]_3CT Dose-Length Product: 291 mGy*cmCT Dose Reduction Employed: Automatedexposure control (AEC)Comparison: Prior chest CT dated 06/16/2017RESULT:Lines, [...] decreased from prior with overlying partially calcified masslikeconsolidation which demonstrates swirling of the bronchial vasculature and significant volume loss i n the right lower lobe, most likely round atelectasis.7 mm right apical nodule slightly increased from prior where it measured 6 mm. Three-month imaging follow-up suggested for reevaluation.Field Examiner: AMILCAR Transcribe Date/Time: Sep 10 2017 9:58ADictated by : CHRISTY MULTANI MDThis examination was interpreted and the report reviewed and electronically signed by: CHRISTY MULTANI MD on Sep 10 2017 2:48PM [id number] Clinic ClevelandPROGRESSon [id number] mass concHNO ID: [id number]: Cesar Claudiae: (none)Author Type: PhysicianType: Progress NotesFiled: 09/10/2017 12:26 PMNote Text:PULMONARY CLINICPATIENT NAME: Desean LandryMRN: [id number] CARE PHYSICIAN: Diogenes Casiano [facility] WEATHERFORDommunication will be sent via [place] mail or [...] past surgical history on file.FAMILY HISTORY:FAMILY HISTORYProblem RelationAge of Onset- Heart disease Other unclear which family memberSOCIAL HISTORY:Social HistorySubstanceUse Topics- Smoking status: Former Smoker Quit date: 07/23/2011- Smokeless tobacco: Never Used- Alcohol use YesMEDICATIONS:No current outpatient prescriptions on file prior to visit.No current facility-administered medications on file prior to visit.ALLERGIES:ALLERGIESNo Known AllergiesPHYSICAL EXAM:BP 125/68 Pulse 75 Temp 97.7 Resp 18 Ht 5' 9 (1.75m) Wt 199 lb(90.3kg) SpO2 97% BMI 29 .37 kg/(m2).GENERAL: No distressSKIN: . No rashes or lesions.OROPHARYNX: Oropharynx normal. No erythema. No thrush.LYMPH: No neck adenopathyLUNGS: Lungs clear to auscultation bilateral. No wheezing. No ronchi. NoralesCARDIAC: normal S1 and O0CJRPBAN: Abdomen soft.EXTREMETIES: No deformities. No LE edema. RLE with hyperpigmented area.Looks improved from 07/2017 as the skin erosion improved.PSYCH: Alert, oriented X 3PULSES: 2+ radialDATA:CT chest 09/10/2017 reviewedASSESSMENT AND PLAN:76 yo MFormersmokerETOH abuseAfibHTNDyslipidemiaHospital admission 06/2017 for dehydration and rhabdomyolysis caused byencephalopathy of unclear etiology. Suspected ETOH intoxication.?Right pleural effusion.CXR and CT chest 06/2017 showed Loculated effusions in the right chestassociated with opacities and atelectasis in the RLL.I reviewed the images with Mr Landry and his legal guardian Blanca James. The left small pleural effusion, the loculated right pleuraleffusion and inter- fissure effusions have improved. The RLL atelectasiswith calcification looks grossly stable.I discussed the differential diagnosiswith Mr Landry and his legalguardian. The effusions were likely secondary to aspiration pneumonia. Th eRLL atelectasis could be chronic.He is clinically much improved and living independently again.?Pleural calcifications.Suspected pleural plaques from asbestos exposure.I reviewed the available chestimages independently.RTC in 6-12 months.REJI Leyvaulmonary and Critical Care MedicineDATE: September 10, 2017TIME: 9:30 The [facility] SystemProtein mass concHNO ID: [id number]: Srinath Purcell (Ct) CTService: RadiologyAuthor Type: Clinical TechnicianType: Progress NotesFiled: 09/10/2017 9:03 AMNote Text: Radiology Service Progress NotePATIENT NAME: Desean LandryMRN: [id number] OF SERVICE: September 10, 2017TIME: 9:03 AMPATIENT IDENTITY VERIFICATION COMPLETED USING TWO (2) METHODS: Patientconfirmed name verbally and ID band matches..PATIENT GENDER DA TA: MalePATIENT RELEVANT IMPLANT DATA REVIEWED: YesRADIOLOGY DEPARTMENT: CT; Exam(s) Completed: ChestPERIPHERAL IV DATA: Not applicableSIGNED BY: MANINDER LinCleveland Clinic Akron General [facility] 2017 9:03 The MetroHealth SystemHISTORY PHYSICALon [id number] PHYSICALHNO ID: [id number]: Cesar RowleySertimae: (none)Author Type: PhysicianType: HANDPFiled: 07/23/2017 5:35 PMNote Text:PULMONARY CONSULTPATIENT NAME: Desean LandryMRN: [id number] FOR CONSULT: Pleural effusionREQUESTING PHYSICIAN: REJI HealyRIBAYPOINTE HOSPITAL CARE PHYSICIAN: Diogenes Casiano, [facility] WEATHERFORDommunication will be sent via [place] mail or shared electronic medicalrecordsHISTORY OF PRESENT ILLNESS: Mr. 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 Unable to make his own medical decision.He lives by himself but currently admitted at a SNF. He has a legalguardian Blanca Sofia phone # [phone].In June he was found on the floor of his home. It isnot clear but itis suspected that he was [...] on theright side and RLL opacities suspicious foraspiration pneumonia. He wasadmitted x 7 days and evaluation included CXR and CT chest. According tothe guardian, the local physicians were suspecting mesothelioma andrecommended thoracentesis. They felt uncomfortable with the evaluation anddecided to pursue [facility] a [facility]. He has been doing physicaltherapy and exercising daily up to 2 hours a day. No chest pain, nodyspnea.PAST MEDICAL HISTORY:PAST MEDICAL HISTORYDiagnosis Date- Asbestosexposure- Atrial fibrillation (HCC)- Calcified pleural plaque on chest x-ray- Dyslipidemia- Historyof rhabdomyolysis 06/2016, resolved- HypertensionPAST SURGICAL HISTORY: No past surgical history on file.FAMILY HISTORY:FAMILY HISTORYProblem Relation Age of Onset- Heart disease Other unclear which family memberSOCIAL HISTORY:Social HistorySubstance Use Topics- Smoking status: Former Smoker Quit date: 07/23/2011- Smokeless tobacco: Not on file- Alcohol use YesMEDICATIONS:Metoprolol 25mfg bidFolic acidThiamineEliquis 5mg bidpravastatinALLERGIES:ALLERGIESNo Known AllergiesCOMPLETE REVIEW OF SYSTEMS: GENERAL: No weight loss, malaise or feversHEENT: Negative for frequent or significant headaches, Nochanges inhearing or vision, no nose bleeds or [...] prolonged bleeding, bruising easily orswollen nodesENDOCRINE: Negative forcold or heat intolerance, polyuria, polydipsia andgoiterNEURO: No history of headaches, syncope, paralysis, seizures or tremorsAll other reviewed and negative other than HPI.PHYSICAL EXAM:GENERAL: Nodistress, looks wellSKIN: (+) bruises in knees and bilateral elbowsOROPHARYNX: Oropharynx normal.NECK: No neck adeonpathyLUNGS: Lungs clear to auscultation bilateral. No wheezing, no ronchi, noralesCARDIAC: normal S1 and S2, no murmurABDOMEN: Abdomen soft.EXTREMETIES: Extremities normal, no deformities No LE edema but (+) areawith skin erosion and hyperpigmentation in the left leg. It is chronic x months to years according to guardianNEURO: Alert, oriented X 3PULSES: 2+ radialDATA:CXR 07/23/2017 reviewedJIX ? 5291 ?- ?XR CHEST 2V FRONTAL/LAT ?/ REASON: Pleural effusion, not elsewhere classified?? ?* * * * Physician Interpretation * * * *?EXAMINATION: ?CHEST RADI OGRAPH (2 VIEW FRONTAL AND LATERAL)Clinical History: ?Pleural [...] Loculated effusions in the right chestassociated with opacitiesand atelectasis in the RLL.I reviewed the available chest images independently.I reviewed the chestimages with Mr Landry and his guardian.I discussed the differential diagnosis with Mr Landry and his g uardian. Itis not clear how long he had the effusion. Suspect that he had episode ofaspiration pneumonia when he was unconscious on the floor, and theeffusion was either traumatic or parapneumonic. Low suspicion formesothelioma as mentioned at OSH.He had CXR today and he still has minimal bilateraleffusions but muchimproved compared to 06/2017. He is asymptomatic now. US chest done todayshowed minimal effusion, not enough for thoracentesis. Plan to return in 4weeks with repeat CT chest.Pleural calcifications. Suspected pleural plaques from asbestos exposure.Written and verbal health teaching given to patient, patient verbalizesunderstanding and agrees with treatment plan.During this patientvisit I have spent more than 50% of the time out of 60in counseling regarding test results, pleuraleffusion and coordinatingcare.Cesar Rowley, MDPulmonary and Critical Care MedicineDATE: July 23, 2017TIME: 12:12 PMNormal [facility] HospitalPROGRESSon [id number] mass concHNO ID: [id number]: Colleen Ceballos RtService: (none)Author Type: (none)Type: Progress NotesFiled: 07/23/2017 11:16 AMNote Text: Radiology Service Progress NotePATIENT NAME: Desean LandryMRN:[id number] OF SERVICE: July 23, 2017TIME: 11:16 AMPATIENT IDENTITY VERIFICATION COMPLETED USING TWO (2) METHODS: Patientconfirmed name verbally and Date of .PATIENT GENDER DATA: MalePATIENT RELEVANT IMPLANT DATA REVIEWED: Not ApplicableRADIOLOGY DEPARTMENT: General X-ray: Exam(s) Completed: Chest X-RayPERIPHERAL IV DATA: Not applicableSIGNED BY: Colleen Ceballos RtFebruary 2017 11:16 AMNormal [facility] HospitalXR CHEST 2V FRONTAL/LATon [id number] CHEST 2V FRONTAL/LAT* * *Final Report* * *DATE OF EXAM: [...] mildly enlarged. Thoracic aorta is tortuous with atherosclero tic calcifications.Other:IMPRESSION:As aboveTranscriptionist: AMILCAR Transcribe Date/Time: Jul 23 20173:23PDictated by : BELL ARMENTA MDThis examination was interpreted and the report reviewed and electronically signed by: BELL ARMENTA MD on Jul 23 2017 3:24PM [id number] Clinic ClevelandHOSPon [id number]:Desean LandryMRN: Height:No patient height recorded for this patient.Weight:No [...] Rt 07/23/2017 11:16 AM Signed Radiology Service ProgressNotePATIENT NAME: Desean LandryMRN: [id number] OF SERVICE: July 23, 2017TIME: 11:16 AMPATIENT IDENTITY VERIFICATION COMPLETED USING TWO (2) METHODS: Patientconfirmed name verbally and Date of .PATIENT GENDER DATA: MalePATIENT RELEVANT IMPLANT DATA REVIEWED: Not ApplicableRADIOLOGY DEPARTMENT: General X-ray: Exam(s) Completed: Chest X-RayPERIPHERAL IV DATA: Not applicableSIGNED BY: Colleen Ceballos RtFebruary 2017 11:16 AMProgress Notes (HOSP [facility] H23):Latoya Mohamud, RN, RN 07/22/2017 10:35 AM Signed07/22/2017: Navigator contacted [facility] ([phone]) toobtain recent labs. Rotary Planer Set Up Operator will fax labs and medication list. Craig also have a copies of this sent with him to his appointments.Normal [facility] HospitalCNPNon [id number] (PULMMN) --------DESEAN LANDRY ([id number]) 1940 MDate Time Provider Department07/16/17 CESAR ROWLEY During your visit today, we recorded the following information about you:Kristie Vallejo 07/16/2017 2:35 PM Signedcxr report to REMOTE CONTROL ASSEMBLER.Italo Mora CNP 07/17/2017 12:47 PM SignedCXR 07/13/2017StableAllergies As of Date: 07/16/2017(No Known Allergies)Date Reviewed: 07/14/2017Reviewed by: Kim Walker (Fel) - Yesenia AssessedReason for Visit: Received Outside Medical Records [[id number]]Problem List As Of Date: 07/16/2017(None) Status:Closed by KRISTIE ANDRADE on 07/16/17Normal [facility] METABOLIC PANELon 21-56-7098Fevpuib7.5 mg/dLLow 8.6-10.3The [facility] HealthcareComment on above:Order Comment: No: Do not add to previous drawPerformed By: #### 39335, 93363, 05360, 54783, 55244 ####[facility] [place] [address], CSVBxzfhmpc090 mmol/DSybbxg31-679Xev [facility] Comment on above:Order Comment: No: Do not add to previous drawPerformed By: #### 13425, 97772, 60604, 97525, 86688 ####[facility] [place] [address], HFIZF964 mmol/OYrubgx11-95Qoe [facility] HealthcareComment on above:Order Comment: No: Do not add to previous drawPerformed By: #### 44511, 91040, 01477, 09855, 48853 ####[facility] [place] [address], [place] Creatinine0.94 mg/dLNormal0.70-1.30The [facility] Comment on above:Order Comment: No: Do not add to previous drawPerformed By: #### 19214, 83368, 07638, 60897, 53481 ####[facility] [place] [address], USAeGFR (black)mL/min/{1.73_m2}Normal >60The [facility] HealthcareComment on above:Order Comment: No: Do not add to previous drawResult Comment: Calculation may not be valid for patients over 70 yearsPerformed By: #### 29072, 28412, 68126, 84314, 37833 ####[facility] [place] [address], [place] eGFR (non-black)mL/min/{1.73_m2}Normal>60The [facility] Comment on above:Order Comment: No: Do not add to previous drawResult Comment: Calculation may not be valid for patients over 70 yearsPerformed By: #### 29817, 92441, 71942, 67180, 17286 ####[facility] [place] [address], USAGlucose mass conc98 mg/hXNivhkj66-760Svl [facility] HealthcareComment on above:Order Comment: No: Do not add to previous drawPerformed By: #### 53283, 91371, 16315, 89921, 70401 ####[facility] [place] [address], [place] Potassium molar conc4.3 mmol/LNormal3.5-5.1The [facility] HealthcareComment on above:Order Comment: No: Do not add to previous drawPerformed By: #### 67800, 53855, 56723, 91339, 69987 ####[facility] [place] [address], NRNFgscjc397 mmol/YXnmimf825-557Xst [facility] HealthcareComment on above:Order Comment: No: Do not add to previous drawPerformed By: #### 91820, 41762, 32998, 87451, 72713 ####[facility] [place] [address], [facility] Urea utebnfdh78 mg/dLNormal7-25The [facility] HealthcareComment on above:Order Comment: No: Do not add to previous drawPerformed By: #### 50208, 71441, 95127, 09400, 96111 ####[facility] [place] [address], [facility]ALTH CENTERCBC W/DIFFon 29-81-4513Vezzujdjn Auto #/vol (Bld)0.5 % Normal0.0-2.0The [facility] HealthcareComment on above:Performed By: #### 94971, 96020, 28305, 27029, 01013 ####[facility] [place] [address], [facility] CENTEREosinophils/100 leukocytes3.6 % Normal0.0-5.0The [facility] HealthcareComment on above:Performed By: #### 46618, 22885, 09738, 61665, 72427 ####[facility] [place] [address], [facility] HEALTH CENTERErythrocyte distribution width Auto Ratio (RBC)14.2 %Edtmpu73.5-16.9The [facility] Comment on above:Performed By: #### 24471, 26141, 64909, 92618, 46629 ####[facility] [facility] [place] [address], [facility] Erythrocytes (RBC)4.19 mill/ym7Vjf5.30-5.90The [facility] HealthcareComment on above:Performed By: #### 07498, 13568, 02528, 97707, 39742 ####[facility] [place] [address], [facility] Hematocrit (HCT)39.9 %Zuejwh82.0-55.0The [facility] Comment on above:Performed By: #### 35765, 39116, 15516, 22384, 25855 ####[facility] Hemoglobin mass conc (Bld)13.6 g/dLLow13.9-16.3The [facility] HealthcareComment on above:Performed By: #### 28374, 13401, 63127, 43368, 88559 ####[facility] [place] [address], [facility] Lymphocytes/100 ckkiaurvbd26.7 %Low20.0-40.0The [facility] HealthcareComment on above:Performed By: #### 79329, 15192, 38622, 50216, 17060 ####[facility] [facility] [place] [address], [facility] MCH32.4 ewDnbf10.0-32.0The [facility] HealthcareComment on above: Performed By: #### 62284, 32918, 36135, 10530, 08400 ####[facility] [place] [address], [facility] HEALTH CENTERMCHC mass conc (RBC)34.0 g/vDFrdjlc90.0-36.0The [facility] HealthcareComment on above: Performed By: #### 74021, 27449, 79944, 08003, 36580 ####[facility] [place] [address], PKCUSY97.3 bRPrgrsl15.0-100.0 The [facility] HealthcareComment on above:Performed By: #### 54788, 23218, 85820, 63949, 19572 ####[facility] [place] [address], [facility]ENTERMETHODNormal RBC MorphologyNormalThe [facility] HealthcareComment on above:Performed By: #### 67769, 48040, 27670, 60859, 47294 ####[facility] [place] [address], USAMONOS9.9 %High2-8The [facility] HealthcareComment on above:Performed By: #### 23283, 07476, 11475, 17370, 21016 ####[facility] [place] [address], [place] Neutrophils/100 xhyfqzlard22.3 %Mbmi72-15Iub [facility] Comment on above:Performed By: #### 77534, 05466, 94520, 87401, 27263 ####[facility] [place] [address], [place] PLAT EXX600 Thou/xi2Gdogwp218-351Mhd [facility] HealthcareComment on above:Performed By: #### 38291, 11520, 56593, 31124, 58222 ####[facility] [place] [address], USAWBC (Leukocytes)8.7 Thou/bl6Sfpngm6.0-10.0The [facility] HealthcareComment on above: Performed By: #### 20693, 87676, 49094, 71339, 47052 ####[facility] [place] [address], USADischarge Summaryon 67-04-4191Rmhruumir SummaryMR#: [id number] [facility] Name: Desean Landry Admitted: 06/13/2017Discharged: 06/20/2017 Date of : 1940 Physician: Diogenes Ren M.D. DISCHARGE SUMMARYPRIMARY DIAGNOSIS: Rhabdomyolysis secondary to prolonged immobilization.SECONDARY DIAGNOSES:1. History of atrial fibrillation.2. Right sided Posterior Calcified pleural plaques.3. Right-sided loculated pleural effusion.CONSULTS: CT Surgery, Pulmonary.PROCEDURES: None.SUMMARY OF HOSPITAL COURSE: is a 76-year-old male, who presentedto [facility] ED with complaints of being found down for approxi mately 15 to 18hours. Per the patient, he was in usual state of health and last nightwhen woke to take his medications, his legs gave out and fell to the floor.Denies loss of consciousness but statedthat he was so weak that he wasunable to get up. Eventually, EMS was contacted and brought the patient [facility]. Initial workup was notable for severe rhabdomyolysis,and the patient was transferred to [facility]. He has a past medical historysignificant for chronic atrial fibrillation on Eliquis and hypertension.Initial management consists of aggressive IV hydration and serial CK andmyoglobin levels. The patient continue to improve and his CK levelscontinue to trend downward.Due to concernfor fracture, CT of the thoracic and lumbar spine wasobtained. No fractures were noted; however, the CT thoracic spine notedmultifocal atelectasis and consolidation with bilateral pleural effusionsand multiple loculations on the right. Pneumonia could not be excluded.Because of this, Pulmonary consu ltation was obtained and a CT chest wasobtained. [...] not have a biopsy performed whilehospitalized at [facility].His CK and myoglobin continue to trend downward, and he was deemed stableat the time of discharge.He will need to follow up with Dr. Rowley at [facility] for continuedmanagement of his pleural effusions concerning for empyema and hisright-sided pleural calcifications. He was to be discharged on June, however his transportation was delayed. He was ultimately dischargedon 06/20/16 [facility].Of note, his Eliquis was stopped for possible thoracentesis in the nextweek. He was instructed that if he does not have a thoracentesis the nextweek, he is to resume his Eliquis for his atrial fibrillation.The patient's condition at discharge stable and improved since admission.DISPOSITION: ECF. DISCHARGE INSTRUCTIONS: You are being discharged to ECF. Please continueto follow up with Dr. Rowley at [facility] for continued management ofthe pleural effusions [...] 06/19/2017/05:47 P/Jarad Ayon MDDate Trans: 06/20/2017 04:29 P/mmoDN_JN:[id number]: Diogenes Casiano M.D. [address] [facility] [id number] Clinic Orthopedic CenterMAGNESIUM BLOODon 19-57-7652Qwxjsrplo2.0 mg/dLNormal1.9-2.7The [facility] HealthcareComment on above:Order Comment: No: Do not add to previous drawPerformed By: #### 18432, 41293, 30039, 74665, 53873 ####[facility] [place] [address], [facility] HEALTH CENTERPHOSPHORUS BLOODon 95-98-4098Xqusnzwsx7.5 mg/dLNormal2.5-5.0The [facility] HealthcareComment on above:Order Comment: No: Do not add to previous draw Performed By: #### 83608, 01597, 29440, 02133, 22356 ####[facility] [place] [address], USABASIC METABOLIC PANELon 63-06-5856Wvhxtfu5.5 mg/dLLow8.6-10.3The [facility] Comment on above:Order Comment: No: Do not add to previous drawPerformed By: #### 85001, 20972, 57555, 12111, 96589 ####[facility] [place] [address], ZRXOcymrinn991 mmol/CMgosbv25-841Rur [facility] HealthcareComment on above:Order Comment: No: Do not add to previous drawPerformed By: #### 23957, 37915, 43508, 18381, 25840 ####[facility] [place] [address], [place] CO226 mmol/BVbgcun74-71Mft [facility] HealthcareComment on above: Order Comment: No: Do not add to previous drawPerformed By: #### 09789, 08440, 00697, 45665, 50674 ####[facility] [place] [address], USACreatinine0.95 mg/dLNormal0.70-1.30The [facility] HealthcareComment on above:Order Comment: No: Do not add to previous drawPerformed By: #### 44231, 67520, 75966, 50544, 94749 ####[facility] [place] [address], USAeGFR (black) mL/min/{1.73_m2}Normal>60The [facility] HealthcareComment on above:Order Comment: No: Do not add to previous drawResult Comment: Calculation may not be valid for patients over 70 yearsPerformed By: #### 25384, 61934, 58250, 29632, 43664 ####[facility] [place] [address], USAeGFR (non-black)mL/min/{1.73_m2}Normal>60The [facility] HealthcareComment on above:Order Comment: No: Do not add to previous drawResult Comment: Calculation may not be valid for patients over 70 yearsPerformed By: #### 34079, 73341, 98016, 65859, 41789 ####[facility] [place] [address], USAGlucose mass conc 102 mg/cTPqvi23-642Fwt [facility] HealthcareComment on above:Order Comment: No: Do not add to previous drawPerformed By: #### 93078, 57888, 72465, 30097, 06312 ####[facility] [place] [address], USAPotassium molar conc3.7 mmol/LNormal3.5-5.1The [facility] HealthcareComment on above:Order Comment: No: Do not add to previous draw Performed By: #### 06626, 48123, 83541, 25283, 03918 ####[facility] [place] [address], LRLBvwvqf381 mmol/LNormal 136-145The [facility] HealthcareComment on above:Order Comment: No: Do not add to previous drawPerformed By: #### 16068, 93442, 79880, 67197, 69029 ####[facility] [place] [address], USAUrea dcfuvpkx18 mg/dLNormal7-25The [facility] Comment on above:Order Comment: No: Do not add to previous drawPerformed By: #### 43138, 28766, 37235, 92123, 33656 ####[facility] [place] [address], USACBC W/DIFFon 84-45-9168Gtpckihzt Auto #/vol (Bld)0.5 %Normal0.0-2.0The [facility] HealthcareComment on above:Order Comment: No: Do not add to previous drawPerformed By: #### 88237, 33447, 43621, 08824, 33765 ####[facility] [place] [address], [facility] CENTEREosinophils/100 leukocytes1.0 %Normal0.0-5.0 The [facility] HealthcareComment on above:Order Comment: No: Do not add to previous drawPerformed By: #### 58094, 02066, 72890, 26338, 18158 ####[facility] [place] [address], [place] Erythrocyte distribution width Auto Ratio (RBC)13.7 %Qygevc78.5-16.9The [facility] HealthcareComment on above:Order Comment: No: Do not add to previous drawPerformed By: #### 46979, 80017, 02313, 94835, 59726 ####[facility] [facility] [place] [address], [facility] Erythrocytes (RBC)4.33 mill/yb2Cptrjd2.30-5.90The [facility] HealthcareComment on above:Order Comment: No: Do not add to previous drawPerformed By: #### 09168, 33272, 03972, 28295, 61419 ####[facility] [place] [address], [facility] HEALTH CENTERHematocrit (HCT)41.5 %Normal 39.0-55.0The [facility] HealthcareComment on above:Order Comment: No: Do not add to previous drawPerformed By: #### 84616, 61161, 36636, 53390, 31136 ####[facility] [place] [address], [facility]ALTH CENTERHemoglobin mass conc (Bld)14.1 g/aRXpfozl29.9-16.3The [facility] HealthcareComment on above:Order Comment: No: Do not add to previous drawPerformed By: #### 90332, 28265, 92511, 12446, 46751 ####[facility] [address], [facility] CENTERLymphocytes/100 jqxvnleheb60.5 %Low20.0-40.0The [facility] HealthcareComment on above:Order Comment: No: Do not add to previous drawPerformed By: #### 11623, 93803, 51470, 05372, 83734 ####[facility] [place] [address], MDWBDP87.7 xlIxdy16.0-32.0The [facility] HealthcareComment on above:Order Comment: No: Do not add to previous draw Performed By: #### 96828, 80325, 41575, 01208, 83345 ####[facility] [place] [address], [facility] CITYHC mass conc (RBC)34.1 g/mJTergpb44.0-36.0The [facility] HealthcareComment on above:Order Comment: No: Do not add to previous drawPerformed By: #### 63304, 00103, 06803, 28469, 67208 ####[facility] [place] [address], YGDWVH76.9 bNBhyxjz61.0-100.0The [facility] Comment on above:Order Comment: No: Do not add to previous drawPerformed By: #### 69793, 19481, 16646, 08922, 74830 ####[facility] [place] [address], USAMETHODNormal RBC MorphologyNormal The [facility] HealthcareComment on above:Order Comment: No: Do not add to previous drawPerformed By: #### 69561, 66761, 04485, 13007, 60799 ####[facility] [place] [address], [place] MONOS11.9 %High2-8The [facility] HealthcareComment on above:Order Comment: No: Do not add to previous drawPerformed By: #### 59654, 61812, 62442, 86750, 33423 ####[facility] [place] [address], USANeutrophils/100 myrlfyupzc96.1 %Jalu67-28Wgn [facility] HealthcareComment on above:Order Comment: No: Do not add to previous draw Performed By: #### 49958, 32124, 98157, 77854, 96487 ####[facility] [place] [address], USAPLAT ODE288 Thou/gp9Dkamrl 100-400The [facility] HealthcareComment on above:Order Comment: No: Do not add to previous drawPerformed By: #### 83708, 49026, 84533, 60647, 84613 ####[facility] [place] [address], USAWBC (Leukocytes)10.7 Thou/he2Nnqr1.0-10.0The [facility] HealthcareComment on above:Order Comment: No: Do not add to previous draw Performed By: #### 77906, 70196, 43151, 66655, 73365 ####[facility] [facility] [place] [address], USACPKon 88-03-2881Biblzhqz kinase (CK)252 U/LBxaq76-492Yul [facility] HealthcareComment on above:Performed By: #### 08976, 47575, 51438, 21637, 89563 ####[facility] [facility] [place] [address], USAMAGNESIUM BLOODon 67-78-0333Wnyzmhgkc0.0 mg/dLNormal1.9-2.7The [facility] Comment on above:Order Comment: No: Do not add to previous drawPerformed By: #### 11164, 73849, 57859, 45498, 52557 ####[facility]IL[address] [place] [address], USAMYOGLOBINon 59-53-1701Nktkdksgc070 ng/mLCritically high0-90The [facility] HealthcareComment on above:Result Comment: A DOUBLING OF VALUES FROM SERIAL BLOOD COLLECTIONS(1 - 2 HOURS APART) IS MORE INDICATIVE OF A M.I.THAN THE ABSOLUTE VALUE.Performed By: #### 16009, 07099, 71042, 81848, 84149 ####[facility] [place] [address], USAPHOSPHORUS BLOODon 06-19-2017 Phosphate2.7 mg/dLNormal2.5-5.0The [facility] HealthcareComment on above:Order Comment: No: Do not add to previous drawPerformed By: #### 30221, 58422, 96355, 82497, 74398 ####[facility] [place] [address], USAALBUMIN BLOODon 88-79-3815Hucmzfy7.6 g/dLLow3.5-5.7The [facility] HealthcareComment on above:Performed By: #### 86790, 65788, 84169, 28152, 87658 ####[facility] [place] [address], USABASIC METABOLIC PANELon 14-15-0615Rhdkoje1.4 mg/dLLow 8.6-10.3The [facility] HealthcareComment on above:Order Comment: No: Do not add to previous drawPerformed By: #### 68016 ####[facility] [place] [address], MWSFyqigbcq436 mmol/LNormal 98-107The [facility] HealthcareComment on above:Order Comment: No: Do not add to previous drawPerformed By: #### 26779 ####[facility] [place] [address], CLUSK921 mmol/UWuziol48-54Uhg [facility] HealthcareComment on above:Order Comment: No: Do not add to previous drawPerformed By: #### 58403 ####[facility] [place] [address], USACreatinine0.93 mg/dLNormal 0.70-1.30The [facility] HealthcareComment on above:Order Comment: No: Do not add to previous drawPerformed By: #### 00720 ####[facility] [place] [address], [facility] CENTEReGFR (black) mL/min/{1.73_m2}Normal>60The [facility] HealthcareComment on above:Order Comment: No: Do not add to previous drawResult Comment: Calculation may not be valid for patients over 70 yearsPerformed By: #### 74815 ####[facility] [place] [address], [place] eGFR (non-black)mL/min/{1.73_m2}Normal>60The [facility] Comment on above:Order Comment: No: Do not add to previous drawResult Comment: Calculation may not be valid for patients over 70 yearsPerformed By: #### 44072 ####[facility] [place] [address], [place] Glucose mass fqkq922 mg/tDMxmm89-153Bdb [facility] Comment on above:Order Comment: No: Do not add to previous drawPerformed By: #### 41922 ####[facility] [facility] [place] [address], [facility] CENTERPotassium molar conc3.4 mmol/LLow3.5-5.1The [facility] HealthcareComment on above:Order Comment: No: Do not add to previous draw Performed By: #### 13423 ####[facility] [place] [address] [place] [address], QTAFlmgth109 mmol/GZbmine737-723Ser [facility] HealthcareComment on above:Order Comment: No: Do not add to previous draw Performed By: #### 44500 ####[facility] [place] [address], USAUrea dgjlfyvp77 mg/dLNormal7-25The [facility] HealthcareComment on above:Order Comment: No: Do not add to previous draw Performed By: #### 93214 ####[facility] [place] [address], [facility] CENTERCBC W/DIFFon 65-88-3758Xswimcfds Auto #/vol (Bld)0.9 % Normal0.0-2.0The [facility] HealthcareComment on above:Order Comment: No: Do not add to previous drawPerformed By: #### 18788 ####[facility] [place] [address], [facility] CENTEREosinophils/100 leukocytes2.3 %Normal0.0-5.0The [facility] HealthcareComment on above:Order Comment: No: Do not add to previous drawPerformed By: #### 09518 ####[facility] [address], [facility] Erythrocyte distribution width Auto Ratio (RBC)13.6 %Nzbldg85.5-16.9The [facility] HealthcareComment on above:Order Comment: No: Do not add to previous drawPerformed By: #### 19410 ####[facility] [address], [facility]ALTH CENTERErythrocytes (RBC)4.37 mill/mm3 Normal4.30-5.90The [facility] HealthcareComment on above:Order Comment: No: Do not add to previous drawPerformed By: #### 53120 ####[facility] [place] [address], [facility] CENTERHematocrit (HCT) 42.0 %Rkjlmz10.0-55.0The Kindred HealthcareComment on above: Order Comment: No: Do not add to previous drawPerformed By: #### [id number] ####[facility] [facility] [place] [address], [facility] Hemoglobin mass conc (Bld)14.2 g/kIAvgqbb79.9-16.3The Kindred HealthcareComment on above:Order Comment: No: Do not add to previous draw Performed By: #### 57781 ####[facility] [facility] [place] [address], [facility] CENTERLymphocytes/100 ldaevvlfpf25.2 %Low20.0-40.0The Kindred HealthcareComment on above:Order Comment: No: Do not add to previous drawPerformed By: #### 53238 ####[facility] [place] [address].[place] [address], VJOGAT70.5 ilWhcu14.0-32.0The Kindred HealthcareComment on above:Order Comment: No: Do not add to previous drawPerformed By: #### 46597 ####[facility] [facility] [place] [address], [facility] HEALTH CENTERMCHC mass conc (RBC)33.8 g/dL Zbrwdo64.0-36.0The Kindred HealthcareComment on above:Order Comment: No: Do not add to previous drawPerformed By: #### 97887 ####[facility] [facility] [place] [address], OYIKXZ16.1 fLNormal 80.0-100.0The Kindred HealthcareComment on above:Order Comment: No: Do not add to previous drawPerformed By: #### 51280 ####[facility] [facility] [place] [address], [facility]ENTERMETHODNormal RBC MorphologyNormalThe Kindred HealthcareComment on above:Order Comment: No: Do not add to previous drawPerformed By: #### 74170 ####[facility] [place] [address], KIGEOQSY49.8 %High 2-8The Kindred HealthcareComment on above:Order Comment: No: Do not add to previous drawPerformed By: #### 51867 ####[facility] [place] [address], USANeutrophils/100 leukocytes 69.8 %Eigguw27-75Tdz Kindred HealthcareComment on above:Order Comment: No: Do not add to previous drawPerformed By: #### 47622 ####[facility] [place] [address], USAPLAT JSO387 Thou/ie1Gsquda688-685Yef [facility]red HealthcareComment on above: Order Comment: No: Do not add to previous drawPerformed By: #### 59741 ####[facility] [place] [address], [place] WBC (Leukocytes)10.8 Thou/xb1Esdw3.0-10.0The [facility] Comment on above:Order Comment: No: Do not add to previous drawPerformed By: #### 54851 ####[facility] [place] [address], USACPKon 76-45-9482Maaausij kinase (CK)586 U/PVcpp87-223Jjz Kindred HealthcareComment on above:Performed By: #### 62833, 24727, 42400, 73853, 28761 ####[facility] [place] [address], [facility] CENTERMAGNESIUM BLOODon 40-22-5807Ebbkhcjkm5.9 mg/dLNormal1.9-2.7The [facility]red HealthcareComment on above:Order Comment: No: Do not add to previous drawPerformed By: #### 10863 ####[facility] [place] [address], [facility] CENTERMYOGLOBINon 11-26-0201Yllegzsnk815 ng/mLCritically high0-90The [facility]red HealthcareComment on above:Result Comment: A DOUBLING OF VALUES FROM SERIAL BLOOD COLLECTIONS(1 - 2 HOURS APART) IS MORE INDICATIVE OF A M.I.THAN THE ABSOLUTE VALUE.Performed By: #### 50818, 10847, 66034, 87387, 95435 ####[facility] [place] [address], USAPHOSPHORUS BLOODon 06-18-2017 Phosphate3.7 mg/dLNormal2.5-5.0The Kindred HealthcareComment on above:Order Comment: No: Do not add to previous drawPerformed By: #### 79469 ####[facility] [place] [address], [facility] BASIC METABOLIC PANELon 25-38-3909Suxebgc4.4 mg/dLLow8.6-10.3The [facility]red HealthcareComment on above:Order Comment: No: Do not add to previous drawPerformed By: #### 75118 ####[facility] [place] [address], NUIWslpbwge613 mmol/AQprp73-625Klq [facility]red HealthcareComment on above:Order Comment: No: Do not add to previous drawPerformed By: #### 49639 ####[facility] [place] [address], YFCRM700 mmol/EMeqlhc16-51Bxz [facility] HealthcareComment on above:Order Comment: No: Do not add to previous drawPerformed By: #### 96301 ####[facility] [place] [address], USACreatinine0.95 mg/dLNormal0.70-1.30The [facility] HealthcareComment on above:Order Comment: No: Do not add to previous drawPerformed By: #### 25933 ####[facility] [place] [address], USAeGFR (black)mL/min/{1.73_m2}Normal >60The Kindred HealthcareComment on above:Order Comment: No: Do not add to previous drawResult Comment: Calculation may not be valid for patients over 70 yearsPerformed By: #### 03011 ####[facility] [place] [address], USAeGFR (non-black)mL/min/{1.73_m2} Normal>60The Kindred HealthcareComment on above:Order Comment: No: Do not add to previous drawResult Comment: Calculation may not be valid for patients over 70 yearsPerformed By: #### 70752 ####[facility] [place] [address], USAGlucose mass aalw276 mg/dLHigh 70-100The Kindred HealthcareComment on above:Order Comment: No: Do not add to previous drawPerformed By: #### 25494 ####[facility] [facility] [place] [address], USAPotassium molar conc3.5 mmol/LNormal3.5-5.1The Kindred HealthcareComment on above:Order Comment: No: Do not add to previous drawPerformed By: #### 31438 ####[facility] [place] [address], XDZAqaxfe925 mmol/FSowbcv834-931Vjy [facility]red HealthcareComment on above:Order Comment: No: Do not add to previous drawPerformed By: #### 79828 ####[facility] [place] [address], USAUrea ipmswbjr86 mg/dLNormal7-25The [facility]red HealthcareComment on above:Order Comment: No: Do not add to previous drawPerformed By: #### 94650 ####[facility] [place] [address], [facility]ALTH CENTERCBC COMPLETE BLOOD COUNTon 53-41-0081Qkudpmtvkkv distribution width Auto Ratio (RBC)13.7 % Rfiatp80.5-16.9The [facility]red HealthcareComment on above:Order Comment: No: Do not add to previous drawPerformed By: #### 35753 ####[facility] [place] [address], [facility]ALTH CENTERErythrocytes (RBC)4.45 mill/jx1Lmbwud1.30-5.90The [facility]red HealthcareComment on above:Order Comment: No: Do not add to previous drawPerformed By: #### 87159 ####[facility] [facility] [place] [place] [address], [facility] Hematocrit (HCT)42.9 %Jmdgjn27.0-55.0The [facility] Comment on above:Order Comment: No: Do not add to previous drawPerformed By: #### 03735 ####[facility] [place] [address], [facility] CENTERHemoglobin mass conc (Bld)14.3 g/sWYfkgtr21.9-16.3The [facility]red HealthcareComment on above:Order Comment: No: Do not add to previous drawPerformed By: #### 69650 ####[facility] [facility] [place] [address], ZASYRP85.1 qhYlwm00.0-32.0The [facility]red HealthcareComment on above:Order Comment: No: Do not add to previous drawPerformed By: #### 22043 ####[facility] [facility] [place] [address], [facility] HEALTH CENTERMCHC mass conc (RBC)33.3 g/iXDrgdqg78.0-36.0 The [facility] HealthcareComment on above:Order Comment: No: Do not add to previous drawPerformed By: #### 86457 ####[facility] [place] [address], ERXZJA71.3 zHJerjnx15.0-100.0 The [facility] HealthcareComment on above:Order Comment: No: Do not add to previous drawPerformed By: #### 09090 ####[facility] [place] [address].[place] [address], [facility]ALTH CENTERPLAT IDU411 Thou/zc0Pjvpgq 100-400The [facility]red HealthcareComment on above:Order Comment: No: Do not add to previous drawPerformed By: #### 86658 ####[facility] [facility] [place] [place] [address], [facility] HEALTH CENTERWBC (Leukocytes)10.7 Thou/jo4Pred4.0-10.0The Kindred HealthcareComment on above: Order Comment: No: Do not add to previous drawPerformed By: #### 36265 ####[facility] [place] [address], [facility] MYOGLOBINon 12-70-6451Fbrralytp255 ng/mLCritically high0-90The [facility]red HealthcareComment on above:Result Comment: A DOUBLING OF VALUES FROM SERIAL BLOOD COLLECTIONS(1 - 2 HOURS APART) IS MORE INDICATIVE OF A M.I.THAN THE ABSOLUTE VALUE.Performed By: #### 55069 ####[address] LUMBAR SPINE WO CONTRASTon 43-39-25282N CT LUMBAR SPINE WO CONTRASTUnGreen Cross HospitalDepartment of Qhxxahcgh[address] [place] [id number] Patien t Name: LANDRYJOVANYDESEAN E : 2Sex: MAge: Race: WhiteMRN: [id number]. Location: [id number]: IVisit #: [id number] Date: 06/16/2017 10:45:00 AMCompleted Date: 06/16/2017 11:31 AMRequesting Provider: NADEEN SALCEDO Attending Provider: NADEEN SALCEDO Report Copy To: Signs & Symptoms: Back Pain (specify level)History: Patient history not availableComments: R/O Fractures, If Other selected, state reason for examExam: 3D CT LUMBAR SPINE WO CONTRASTAccession #: [id number]======== 3D CT LUMBAR SPINE WO CONTRAST 06/16/2017 [...] None FINDINGS: Satisfactory alignment of the normal lumbarspine lordotic curvature.The vertebral body heights and intervertebral disc spaces are well-preserved.Large anterior osteophytes and syndesmophyte formation throughout the lumbar spine. Degenerative changes throughout the lumbar spine, most pronounced at L4-L5 and L5-S1 with facet joint hypertrophyand disc pathology causing central canal and neural foraminal narrowing. The posterior elements areintact.There is sclerosis and spur formation at the SI joints. Visualized portion of the abdomen isunremarkable.Dependent atelectasis with bilateral pleural effusions at the lung bases. IMPRESSION: 1. No acute osseous abnormalities in the lumbar spine.2. Degenerative changes throughout the lumbar spine, most pronounced at L4-L5 and L5-S1 with facet joint hypertrophy. Approved by:Paola Wolf on 06/16/2017 11:56 AM EST. I, Srinath Meyer, have reviewed the images and report and concur with these findings. Electronically signed by:Srinath Meyer. Transcribed by: [email or web address], User Resident: PAOLA ROSTElectronically Signed by: SRINATH MEYER @ 06/16/2017 12:13 PMI personally read this/these film(s) with this residentPremier Health Miami Valley HospitalComment on above:Order Comment: No: Do not add to previous draw3D CT THORACIC SPINE WO CONTRASTon 36-76-89624P CT THORACIC SPINE WO CONTRASTUnGreen Cross HospitalDepartment of Fvqxkcrkw[address] [place] [address] Patien t Name: DESEAN LANDRY : 1940ex: MAge: Race: WhiteMRN: [id number]. Location: [id number]: IVisit #: [id number] Date: 06/16/2017 10:45:00 AMCompleted Date: 06/16/2017 11:32 AMRequesting Provider: NADEEN SALCEDO Attending Provider: NADEEN SALCEDO Report Copy To: Signs & Symptoms: Back Pain (specify level)History: Patient history not availableComments: R/O Fractures, History of Fall and c/o Back Pain. Rule out fractureExam: 3D CT THORACIC SPINE WO CONTRASTAccession #: [id number] THORACIC SPINE WO CONTRAST 06/16/2017 11:32 AM EST TECHNOLOGIST COMMENTS: Upper and lower back pain post fall 4 days ago. QUESTION FOR RADIOLOGIST: R/O Fractures PROTOCOL: Axial CT images of the spine were obtained without IV contrast. TECHNIQUE: Multi detector CT axial slices of the thoracic spine are obtained fromthe C5 to the L1 vertebral body without IV contrast. Volumetric acquisition sagittal, coronal, and 3-D reconstructions were performed and reviewed on a separate workstation. Appropriate CT dose lowering techniques were utilized. COMPARISON: None FINDINGS: There is preservation of the vertebral bodyheights and intervertebral discs. Anterolateral vertebral body spurring [...] compatible with DISH and ankylosing spondylitis.3. Multifocal atelectasisand consolidation with bilateral pleural effusions and multiple loculations on the right. Pneumoniacannot be excluded. Progress evaluation recommended to monitor for resolution. Approved by:Bharat Harris on 06/16/2017 11:52 AM EST. I, Srinath Meyer, have reviewed the images and report and concur with these findings. Electronically signed by:Srinath Meyer. Transcribed by: [email or web address], User Resident: CAN HARRISElectronically Signed by: SRINATH MEYER @ 06/16/2017 12:03 PMI personally read this/these film(s) with this residentPremier Health Miami Valley HospitalComment on above:Order Comment: No: Do not add to previous draw BASIC METABOLIC PANELon 43-53-2563Rvifrsa6.9 mg/dLLow8.6-10.3The [facility] HealthcareComment on above:Order Comment: No: Do not add to previous drawPerformed By: #### 35996, 99807 ####[facility] [place] [address], STQUhksloqn662 mmol/VCjys82-393Mom Kindred HealthcareComment on above:Order Comment: No: Do not add to previous drawPerformed By: #### 86551, 41984 ####[facility] [place] [address], IEJIL267 mmol/UHqbuyo31-68Bvz [facility] HealthcareComment on above:Order Comment: No: Do not add to previous drawPerformed By: #### 55996, 71645 ####[facility] [place] [address], USACreatinine1.05 mg/dLNormal0.70-1.30The [facility] HealthcareComment on above:Order Comment: No: Do not add to previous drawPerformed By: #### 92858, 85206 ####[facility] [place] [address], USAeGFR (black) mL/min/{1.73_m2}Normal>60The [facility]red HealthcareComment on above:Order Comment: No: Do not add to previous drawResult Comment: Calculation may not be valid for patients over 70 yearsPerformed By: #### 88248, 23325 ####[facility] [place] [address], [place] eGFR (non-black)mL/min/{1.73_m2}Normal>60The [facility] Comment on above:Order Comment: No: Do not add to previous drawResult Comment: Calculation may not be valid for patients over 70 yearsPerformed By: #### 25257, 14930 ####[facility] [place] [address], USAGlucose mass mwcd195 mg/kGSzim01-870Usz [facility] HealthcareComment on above:Order Comment: No: Do not add to previous drawPerformed By: #### 57924, 88220 ####[facility] [place] [address], USAPotassium molar conc4.0 mmol/LNormal3.5-5.1The [facility] HealthcareComment on above:Order Comment: No: Do not add to previous drawPerformed By: #### 39576, 33305 ####[address] [place] [address], VXFCobtzu552 mmol/LNormal 136-145The [facility]red HealthcareComment on above:Order Comment: No: Do not add to previous drawPerformed By: #### 57977, 17150 ####[place] [address] [place] [address], USAUrea mg/dLNormal7-25The [facility] HealthcareComment on above:Order Comment: No: Do not add to previous drawPerformed By: #### 69287, 76918 ####[address] [place] [address], [facility] BNP (B-TYPE NATRIURETIC PEPTIDE)on 18-54-1134OJM2252 pg/mLHigh0-100The [facility]red HealthcareComment on above:Order Comment: No: Do not add to previous drawResult Comment: Given the appropriate clinical setting a BNP result of >100 pg/mLindicates congestive heart failure.Performed By: #### 81557 ####[address] [place] [address], [facility] CBC COMPLETE BLOOD COUNTon 15-17-3364Ptmrvjzgkhz distribution width Auto Ratio (RBC)13.7 %Qxqrwd33.5-16.9The [facility] HealthcareComment on above:Order Comment: No: Do not add to previous drawPerformed By: #### 39714, 26795 ####[address] [place] [address], [facility]ALTH CENTERErythrocytes (RBC)4.24 mill/tc3Xyb9.30-5.90The [facility] HealthcareComment on above:Order Comment: No: Do not add to previous draw Performed By: #### 17758, 88089 ####[address] [place] [address], [facility] CENTERHematocrit (HCT)40.7 %Jfrjfz62.0-55.0The [facility] HealthcareComment on above:Order Comment: No: Do not add to previous drawPerformed By: #### 48846, 57744 ####[facility] [place] [address].[place] [address], [facility] CENTERHemoglobin mass conc (Bld) 13.6 g/dLLow13.9-16.3The [facility] HealthcareComment on above: Order Comment: No: Do not add to previous drawPerformed By: #### 95512, 9[address]21 ####[place] [address], [facility] MCH32.1 zzWjow67.0-32.0The [facility]red HealthcareComment on above: Order Comment: No: Do not add to previous drawPerformed By: #### 69776, 54220 ####[address] MCHC mass conc (RBC)33.4 g/aRHyllou76.0-36.0The [facility]red HealthcareComment on above:Order Comment: No: Do not add to previous drawPerformed By: #### 29306, 12273 ####[place] [address], IBBBFW88.1 zPSnwkdi87.0-100.0The [facility]red HealthcareComment on above:Order Comment: No: Do not add to previous draw Performed By: #### 65406, 71138 ####[address] [place] [address], [facility] REG[facility] HEALTH CENTERPLAT RYZ400 Thou/va5Nvmcit051-027Ctt [facility] HealthcareComment on above:Order Comment: No: Do not add to previous drawPerformed By: #### 59484, 02474 ####[address] [place] [address], [facility] CENTERWBC (Leukocytes)10.3 Thou/it9Ropg6.0-10.0Pro[facility]ostoria Community HospitalComment on above: Order Comment: No: Do not add to previous drawPerformed By: #### 52260, 23136 ####[facility] [place] [address] CPKon 12-99-0552Cethbckf kinase (CK)2950 U/LCritically pjrh71-950Nlk [facility] HealthcareComment on above:Performed By: #### 20183, 15065 ####[address] CR-PORTABLE CHEST 1 VIEW IMPORTon 83-07-3581HI-PORTABLE CHEST 1 VIEW IMPORT Images were obtained outside of [facility] [id number]_IDCSIACNNormalLicking Memorial HospitalCT CHEST WO CONTRASTon 52-39-5215PS CHEST WO CONTRASTUnGreen Cross HospitalDepartment of Snxzvrtej[address] [place], [place] [address] Patien t Name: DESEAN LANDRY : 2Sex: MAge: Race: WhiteMRN: [id number]. Location: [id number]: IVisit #: [id number] Date: 06/16/2017 5:25:00 PMCompleted Date: 06/16/2017 06:06 PMRequesting Provider: RAFFAELE GARCIA Attending Provider: NADEEN SALCEDO Report Copy To: Signs & Symptoms: Shortness of BreathHistory: Patient history not availableComments: R/O Pleural Effusion, please comment about pleural effusionExam: CT CHEST WO CONTRASTAccession #: [id number] CT CHEST WO CONTRAST 06/16/2017 6:06 PM EST SIGN ANDSYMPTOMS: Shortness of Breath TECHNOLOGIST COMMENTS: ? pleural effusion sob QUESTIONS PER RADIOLOGIST: R/O Pleural Effusion, please comment about pleural effusion PROTOCOL: Axial CT images of the chest were obtained without IV contrast. TECHNIQUE: Multidetector CT axial slices of the chest were obtained without IV contrast. Multiplanar reformats were performed and viewed on a separate workstationand reviewed to further define anatomy and possible pathology.Appropriate CT dose lowering techniques were utilized. COMPARISON: Chest radiograph June 16, 2017. FINDINGS:Lower neck: Thyroid gland within normal limits, no supraclavicle adenopathy.Vessels: Within normal limits. Moderate atherosclerotic changes in the aorta. and coronary arteries. Mediastinum and Colleen: Within normal limits. A few calcified mediastinal and left hilar lymph nodes. No pathologically enlarged lymph nodes.Heart: Mildcoronary calcifications and minimal pericardial effusion.Airways: Within normal limitsLungs: Bilateral scattered mild atelectatic bands/scarring. Left upper lung lobe calcified granuloma.Pleura: There is right-sided loculated pleural effusion along the lateral and medial pleural reflections with increased CT density up to 40 Hounsfield units. Minor fissure effusion noted. There is right posteriorpleural calcifications with a pleural based soft tissue [...] be excluded. Sampling may be needed for defi nitive diagnosis.* Right-sided posterior pleural calcification with a pleural- based soft tissue density as above described. Pleural plaque versus mesothelioma is suspected. Approved by:Sunitha Camacho on 06/17/2017 9:55 AM EST. I, Xiomara Christine, have reviewed the images and report and concur with these findings. Electronically signed by:Xiomara Christine. Transcribed by: [email or web address], User Resident: SUNITHA CAMACHOElectronically Signed by: XIOMARA CHRISTINE @ 06/17/2017 01:24 PMI personally read this/these film(s) with this residentPremier Health Miami Valley HospitalComment on above:Order Comment: No: Do not add to previous drawCT-3D CT LUMBAR SPINE WO CONTRAST IMPORTon 21-70-7729QO-3D CT LUMBAR SPINE WO CONTRAST IMPORTImages were obtained outside of [facility] [id number]_IDCSIACNNMcKitrick Hospital ClevelandCT-3D CT THORACIC SPINE WO CONTRAST IMPORTon 33-66-3373WX-3D CT THORACIC SPINE WO CONTRAST IMPORTImages were obtained outside of [facility] [id number]_IDCSIACTuscarawas Hospital ClevelandCT-CT CHEST WO CONTRAST IMPORTon 44-97-3976TV-CT CHEST WO CONTRAST IMPORTImages were obtained outside of [facility] [id number]_IDCSIACTuscarawas Hospital ClevelandMYOGLOBINon 06-16-2017 Iqsoslzsd833 ng/mLCritically high0-90The [facility] Comment on above:Result Comment: A DOUBLING OF VALUES FROM SERIAL BLOOD COLLECTIONS(1 - 2 HOURS APART) IS MORE INDICATIVE OF A M.I.THAN THE ABSOLUTE VALUE.Performed By: #### 98893, 15706 ####[facility] [place] [address], USAPORTABLE CHEST 1 VIEWon 06-16-2017 PORTABLE CHEST 1 VIEWUnGreen Cross HospitalDepartment of Cdqfgpulo8[address] [place] [address] Patien t Name: DESEAN LANDRY : 2Sex: MAge: Race: WhiteMRN: [id number]. Location: [id number]: Rekha #: [id number] Date: 06/16/2017 12:50:00 PMCompleted Date: 06/16/2017 01:22 PMRequesting Provider: NADEEN SALCEDO Attending Provider: NADEEN SALCEDO Report Copy To: Signs & Symptoms: O2 DesaturationHistory: Patient history not availableComments: R/O AspirationExam: PORTABLE CHEST 1 VIEWAccession #: [id number] ====PORTABLE CHEST 1 VIEW 06/16/2017 1:22 PM EST [...] clear left chest. Electronically signed by:Srinath Meyer. Transcribedby: [email or web address], User Resident: Electronically Signed by: SRINATH MEYER @ 06/16/2017 01:25 PMNormal The [facility]red HealthcareComment on above:Order Comment: No: Do not add to previous drawPROTHROMBIN TIMEon 88-93-6073BPY Coag RelTime (PPP)1.51 {INR}High0.91-1.16The [facility]red HealthcareComment on above:Order Comment: No: Do not add to previous drawResult Comment: ACCCP RECOMMENDED INR FOR WARFARIN THERAPY CONDITION INRPROPHYLAXIS OF VENOUS THROMBOSIS 2-3(HIGH-RISK SURGERY)TREATMENT OF VENOUS THROMBOSIS 2-3TREATMENT OF PULMONARY EMBOLISM 2-3PREVENTION OF SYSTEMIC EMBOLISM: 2-3 ACUTE MYOCARDIAL INFARCTION TISSUE HEART VALVES VALVULAR HEART DISEASE ATRIAL FIBRILLATION RECURRENT SYSTEMIC EMBOLISMMECHANICAL HEART VALVE 2.5-3.5 FROM: ORAL ANTICOAGULANTS. MECHANISM OF ACTION, CLINICALEFFECTIVENESS, AND OPTIMAL THERAPEU TIC RANGE. [id number];108:231S-246S.Performed By: #### 91112 ####[facility] [facility] [place] [address], [facility] HEALTH CENTERProthrombin time (PT) Coag time (PPP)18.4 sHigh12.3-14.8The [facility] Comment on above:Order Comment: No: Do not add to previous drawResult Comment: ALL RESULTS MUST BE INTERPRETED WITH RESPECT TO BLOOD DRAWING ARTIFACTOR DILUTION ERROR OF ANTICOAGULANT AT THE TIME OF SAMPLING.Performed By: #### 14710 ####[facility] [place] [address], [facility] BASIC METABOLIC PANELon 78-00-1915Hspdsyx1.0 mg/dLLow8.6-10.3The [facility] HealthcareComment on above:Order Comment: No: Do not add to previous drawPerformed By: #### 84669, 07401, 16639, 46087 ####[facility] [place] [address], XCROorrvjoe620 mmol/LHigh 98-107The Kindred HealthcareComment on above:Order Comment: No: Do not add to previous drawPerformed By: #### 03386, 99721, 14630, 12291 ####[facility] [facility] [place] [place] [address], [place] CO221 mmol/PLplyxo55-12Esy Kindred HealthcareComment on above: Order Comment: No: Do not add to previous drawPerformed By: #### 38843, 38741, 67987, 18861 ####[facility] [facility] [address], USACreatinine1.15 mg/dLNormal0.70-1.30The Kindred HealthcareComment on above:Order Comment: No: Do not add to previous drawPerformed By: #### 64047, 19261, 19114, 07229 ####[facility] [facility] [place] [address], USAeGFR (black)mL/min/{1.73_m2}Normal>60The Kindred HealthcareComment on above:Order Comment: No: Do not add to previous drawResult Comment: Calculation may not be valid for patients over 70 yearsPerformed By: #### 98140, 41466, 43210, 83085 ####[facility] [facility] [place] [address], USAeGFR (non-black) mL/min/{1.73_m2}Normal>60The Kindred HealthcareComment on above:Order Comment: No: Do not add to previous drawResult Comment: Calculation may not be valid for patients over 70 yearsPerformed By: #### 42793, 68753, 14359, 30725 ####[facility] [facility] [place] [address], USAGlucose mass gvut240 mg/jWPrhn10-310Uyl Kindred HealthcareComment on above:Order Comment: No: Do not add to previous drawPerformed By: #### 35573, 91746, 77281, 12238 ####[facility] [place] [place] [address], USAPotassium molar conc3.9 mmol/LNormal3.5-5.1The Kindred HealthcareComment on above:Order Comment: No: Do not add to previous drawPerformed By: #### 81415, 68119, 82492, 34434 ####[facility] [facility] [place] [address], MGDJgnlai531 mmol/L Sbuzzq037-616Yta Kindred HealthcareComment on above:Order Comment: No: Do not add to previous drawPerformed By: #### 83778, 51459, 71665, 81740 ####[facility] [facility] [place] [place] [address], USAUrea awqddjyz79 mg/dLNormal7-25The [facility] Comment on above:Order Comment: No: Do not add to previous drawPerformed By: #### 13504, 15313, 95854, 54457 ####[facility] [facility] [place] [address], USACBC COMPLETE BLOOD COUNTon 06-15-2017 Erythrocyte distribution width Auto Ratio (RBC)13.7 %Akslma40.5-16.9The Kindred HealthcareComment on above:Order Comment: No: Do not add to previous drawPerformed By: #### 23932 ####[facility] [place] [address], USAErythrocytes (RBC)4.44 mill/mm3 Normal4.30-5.90The Kindred HealthcareComment on above:Order Comment: No: Do not add to previous drawPerformed By: #### 99758 ####[facility] [place] [address], USAHematocrit (HCT) 42.7 %Csfsuj71.0-55.0The Kindred HealthcareComment on above: Order Comment: No: Do not add to previous drawPerformed By: #### 07518 ####[facility] [place] [address], [facility] Hemoglobin mass conc (Bld)14.5 g/hBQfebwf24.9-16.3The Kindred HealthcareComment on above:Order Comment: No: Do not add to previous draw Performed By: #### 71018 ####[facility] [facility] [place] [address], RCEGDK76.7 iiPyjg81.0-32.0The Kindred HealthcareComment on above:Order Comment: No: Do not add to previous drawPerformed By: #### 83419 ####[facility] [facility] [place] [place] [address], [facility] CITYHC mass conc (RBC)34.0 g/bCLrwjrb79.0-36.0The Kindred HealthcareComment on above:Order Comment: No: Do not add to previous drawPerformed By: #### 07087 ####[facility] [facility] [place] [address], KQRQUL90.1 fIWducgp68.0-100.0The Kindred HealthcareComment on above:Order Comment: No: Do not add to previous drawPerformed By: #### 36917 ####[facility] [facility] [place] [address], USAPLAT MNJ374 Thou/os5Avaiwa078-294Luc Kindred HealthcareComment on above:Order Comment: No: Do not add to previous drawPerformed By: #### 30566 ####[facility] [facility] [place] [place] [address], [facility] HE[facility] CENTERWBC (Leukocytes)11.3 Thou/am2Gxvv 4.0-10.0The Kindred HealthcareComment on above:Order Comment: No: Do not add to previous drawPerformed By: #### 81294 ####[facility] [facility] [place] [address], USACPKon 98-59-7692Ceewxfxt kinase (CK)7925 U/LCritically jhtc76-468Tbc [facility] Comment on above:Order Comment: No: Do not add to previous drawPerformed By: #### 16469, 08585 ####[facility] [place] [address], USAMAGNESIUM BLOODon 34-97-1506Dzusujiyp2.4 mg/dLNormal 1.9-2.7The Kindred HealthcareComment on above:Performed By: #### 37342, 91957 ####[facility] [facility] [address], USAPHOSPHORUS BLOODon 25-05-0613Xilubgkoj4.6 mg/dLNormal 2.5-5.0The Kindred HealthcareComment on above:Performed By: #### 60065, 71307 ####[facility] [facility] [place] [address], USABASIC METABOLIC PANELon 17-94-7256Lbhdvxl7.3 mg/dLLow 8.6-10.3The Kindred HealthcareComment on above:Order Comment: No: Do not add to previous drawPerformed By: #### 60020, 41111, 43277, 06752, 54579 ####[facility] [facility] [place] [address], BGOWnnojarl814 mmol/FBoghuq44-083Tcj [facility] Comment on above:Order Comment: No: Do not add to previous drawPerformed By: #### 77528, 72311, 88860, 05683, 15314 ####[facility] [facility] [place] [address], REAOW221 mmol/KBxibjg11-40Gtr Kindred HealthcareComment on above:Order Comment: No: Do not add to previous drawPerformed By: #### 09239, 10307, 52902, 71646, 39935 ####[facility] [place] [address], [facility] Creatinine1.25 mg/dLNormal0.70-1.30The [facility] Comment on above:Order Comment: No: Do not add to previous drawPerformed By: #### 82528, 66143, 95547, 11495, 41060 ####[facility] [place] [address], [facility] HE[facility] CENTEReGFR (black)mL/min/{1.73_m2}Normal >60The Kindred HealthcareComment on above:Order Comment: No: Do not add to previous drawResult Comment: Calculation may not be valid for patients over 70 yearsPerformed By: #### 23698, 53818, 09874, 34259, 04070 ####[facility] [place] [address], [facility] eGFR (non-black)56 ml/min/1.73sq mAbnormal>60The Kindred HealthcareComment on above:Order Comment: No: Do not add to previous drawResult Comment: Calculation may not be valid for patients over 70 yearsPerformed By: #### 54721, 41506, 56403, 95112, 12254 ####[facility] [place] [address], [facility] HEALTH CENTERGlucose mass uoix977 mg/dLHigh 70-100The Kindred HealthcareComment on above:Order Comment: No: Do not add to previous drawPerformed By: #### 64666, 76815, 34418, 41519, 16550 ####[facility] [place] [address], [facility] Potassium molar conc4.3 mmol/LNormal3.5-5.1The Kindred HealthcareComment on above:Order Comment: No: Do not add to previous drawPerformed By: #### 17735, 93104, 99815, 39302, 68535 ####[facility] [place] [address], QBHZaunbe741 mmol/LRhqqcn246-012Lji [facility]red HealthcareComment on above:Order Comment: No: Do not add to previous drawPerformed By: #### 59382, 24521, 25173, 20858, 69151 ####[facility] [place] [address], [place] Urea fynbxlek83 mg/dLNormal7-25The Kindred HealthcareComment on above:Order Comment: No: Do not add to previous drawPerformed By: #### 44086, 47284, 02997, 91694, 82230 ####[facility] [place] [address], [facility] HEALTH CENTERCBC COMPLETE BLOOD COUNTon 44-89-7594Unlyidhpxbf distribution width Auto Ratio (RBC)13.8 %Yvlehe04.5-16.9The Kindred HealthcareComment on above:Order Comment: No: Do not add to previous draw Performed By: #### 65122 ####[facility] [facility] [place] [address], [facility]AL HEALTH CENTERErythrocytes (RBC)4.83 mill/lz2Xyfihw3.30-5.90The Kindred HealthcareComment on above:Order Comment: No: Do not add to previous drawPerformed By: #### 04874 ####[facility] [facility] [place] [address], USAHematocrit (HCT)46.7 %Normal 39.0-55.0The Kindred HealthcareComment on above:Order Comment: No: Do not add to previous drawPerformed By: #### 07440 ####[facility] [place] [address], [facility] HEALTH CENTERHemoglobin mass conc (Bld)15.8 g/cQCgeoxa68.9-16.3The Kindred HealthcareComment on above:Order Comment: No: Do not add to previous drawPerformed By: #### 69935 ####[facility] [facility] [place] [address], [facility] MCH32.7 ftKvxv29.0-32.0The Kindred HealthcareComment on above: Order Comment: No: Do not add to previous drawPerformed By: #### 95141 ####[facility] [facility] [place] [address], [facility] MCHC mass conc (RBC)33.9 g/aQWpnhpe28.0-36.0The Kindred HealthcareComment on above:Order Comment: No: Do not add to previous drawPerformed By: #### 39957 ####[facility] [place] [address].[place] [address], UUSFIX84.6 lTHhjbjb40.0-100.0The [facility] Comment on above:Order Comment: No: Do not add to previous drawPerformed By: #### 14521 ####[facility] [place] [address].[place] [address], [facility] REGIONAL HEALTH CENTERPLAT WFQ669 Thou/ic2Aamkvz934-414Lcm Kindred HealthcareComment on above:Order Comment: No: Do not add to previous drawPerformed By: #### 43763 ####[address] [place] [address], [facility] REG[facility] HEALTH CENTERWBC (Leukocytes)15.7 Thou/nh1Nzfb5.0-10.0The Kindred HealthcareComment on above:Order Comment: No: Do not add to previous draw Performed By: #### 08508 ####[address] [place] [address], [facility] HEALTH CENTERCPKon 52-04-7327Egkmvytq kinase (CK)11696 U/LCritically cysd67-018Zzu Kindred HealthcareComment on above:Performed By: #### 20748, 22015, 92728, 49146, 36827 ####[facility] [place] [address].[place] [address], USAMAGNESIUM BLOODon 06-14-2017 Magnesium2.8 mg/dLHigh1.9-2.7The Kindred HealthcareComment on above:Order Comment: No: Do not add to previous drawPerformed By: #### 39272, 42148, 61559, 70956, 07562 ####[facility] [place] [address], USAPHOSPHORUS BLOODon 01-53-6566Lkpwibeud4.3 mg/dLNormal 2.5-5.0The Kindred HealthcareComment on above:Order Comment: No: Do not add to previous drawPerformed By: #### 71131, 58342, 44670, 18290, 98166 ####[facility] [place] [address], USATSHon 00-83-6041Flipesw stimulating hormone (TSH)2.65 MICRO-IU/ML Normal0.34-5.60The Kindred HealthcareComment on above:Performed By: #### 80985, 09902, 17173, 68120, 33391 ####[facility] [place] [address], USABASIC METABOLIC PANELon 06-13-2017 Calcium8.4 mg/dLLow8.6-10.3The Kindred HealthcareComment on above:Order Comment: No: Do not add to previous drawPerformed By: #### 20210, 30919 ####[facility] [place] [address], WWAHljklzln068 mmol/WWitmrp69-685Obw [facility] Comment on above:Order Comment: No: Do not add to previous drawPerformed By: #### 93597, 68719 ####[facility] [place] [address], LXIRY490 mmol/URurool19-28Eqy Kindred HealthcareComment on above:Order Comment: No: Do not add to previous drawPerformed By: #### 05753, 15354 ####[facility] [place] [address], USACreatinine1.26 mg/dLNormal0.70-1.30The Kindred HealthcareComment on above:Order Comment: No: Do not add to previous drawPerformed By: #### 77735, 51813 ####[facility] [place] [address], USAeGFR (black)mL/min/{1.73_m2}Normal>60The Kindred HealthcareComment on above:Order Comment: No: Do not add to previous drawResult Comment: Calculation may not be valid for patients over 70 yearsPerformed By: #### 95679, 83681 ####[facility] [place] [address], USAeGFR (non-black)56 ml/min/1.73sq m Abnormal>60The Kindred HealthcareComment on above:Order Comment: No: Do not add to previous drawResult Comment: Calculation may not be valid for patients over 70 yearsPerformed By: #### 57316, 72963 ####[facility] [facility] [place] [address], [facility] HEALTH CENTERGlucose mass zkia602 mg/pCDjjv86-462Cpm Kindred HealthcareComment on above: Order Comment: No: Do not add to previous drawPerformed By: #### 92970, 24907 ####[facility] [place] [address].[place] [address], [place] Potassium molar conc4.8 mmol/LNormal3.5-5.1The Kindred HealthcareComment on above:Order Comment: No: Do not add to previous drawPerformed By: #### 04094, 75453 ####[facility] [place] [address], UQKLmcpiu766 mmol/BYnrnjh408-554Dwc Kindred HealthcareComment on above:Order Comment: No: Do not add to previous draw Performed By: #### 95317, 27184 ####[facility] [place] [address], USAUrea jljvzovm11 mg/dLNormal7-25The [facility]red HealthcareComment on above:Order Comment: No: Do not add to previous drawPerformed By: #### 36140, 61092 ####[facility] [place] [address], USACPKon 18-04-9885Lttuoafj kinase (CK)16223 U/LCritically uolf77-559Rba [facility]red HealthcareComment on above:Order Comment: No: Do not add to previous drawPerformed By: #### 71059, 14765 ####[facility] [place] [address], USAHistory and Physicalon 88-23-5988Ntpvipr and PhysicalMR#: [id number] Desean Landry Admitted: 06/13/2017 Date of : 1940 Attending Physician: Arpan Camacho MD Room #: [id number] Discharge Date: HISTORY AND PHYSICALPRIMARY CARE PHYSICIAN: [...] the floor. Did not hithis head. No lossof consciousness reported, but was feeling so weak andlethargic, unable to get up, so remained on the floor almost for 15-18hours, then eventually EMS was activated and the patient was brought to thehospital for further evaluation and management.The patient presented to the [facility] Emergency Department. Overthere, the patient had initial workup revealed severe rhabdomyolysis, sothe patient was referred to the [facility] for further evaluationand management. Denying any chest pain. Complaining of back pain.Complaining of generalized weakness and fatigue. No chest pain orshortness of breath. No abdominal pain. Denying any blood in the urine orbleeding per rectum. No nausea,vomiting or hematemesis reported.PAST MEDICAL HISTORY: As stated above, essential hypertension, chronicatrial fibrillation.SOCIAL HISTORY: No smoking, alcohol, or drug abuse.MEDICATIONS: Metoprolol 25 mg p.o. b.i.d., pravastatin 40 mg daily,Eliquis 5 mg p.o. b.i.d.REVIEW OF SYSTEMS: Ten review of systems were obtained and negative exceptdescribed in the HPI.FAMILY HISTORY: Negative for premature coronary artery disease.ALLERGIES: None.PHYSICAL EXAMINATION: VITAL SIGNS: Blood pressure is 127/77,pulse 80,respiratory rate 18, afebrile, saturation 97% on [...] the labs are in progress.ASSESSMENT AND PLAN:1. Severerhabdomyolysis. The patient will be admitted to medical [...] GI prophylaxis with Pepcid. DVT prophylaxis. The p atient is already on Eliquis. Plan of care was discussed with the patient and medical staff at bedside. The patient is a full code.Electronically Signed by:Arpan Camacho MD 06/22/2017 07:28 A BERHANE Hayesate Dict: 06/13/2017/06:07 Jesse/Mariangel Hayes Trans: 06/13/2017 06:38 P/JuanN_JN:[id number] Health [facility] Vital Signs Date TimeVital SignValuePerforming LvsqpvtzuBvktkrge32-41-8534 09:22-0400Body kjmxca772.3 cmAnthony Rusher DPM Work Phone: [phone]08-13-2025 09:22-0400Body mass index (BMI) [Ratio]29.53 kg/f0Mycnhnb Rusher DPM Work Phone: [phone] [place], [place] 9540908-13-2025 09:22-0400Body ipwywj44.72 kgAnthony Rusher DPM Work Phone: [phone] [place], [place] 9540905-07-2025 10:04-0400Body oincco977.3 cmAnthony Rusher DPM Work Phone: [phone]05-07-2025 10:04-0400Body mass index (BMI) [Ratio]29.53 kg/h7Prahgjk Rusher DPM Work Phone: [phone] [place], [place] 9540905-07-2025 10:04-0400Body icbbcp32.72 kgAnthony Rusher DPM Work Phone: [phone] [place], [place] [address]40904-21-2025 13:20-0400Body .26 cmSelect [facility]04-21-2025 13:20-0400Body mass index (BMI) [Ratio]29.5 kg/q6XvwlvrltzSelect [facility]04-21-2025 13:20-0400Body .7 [degF][facility]04-21-2025 13:20-0400Body smlids91.88 kgSelect [facility]04-21-2025 13:20-0400Diastolic blood mm[Hg][facility]04-21-2025 13:20-0400 Heart rate60 /[facility]04-21-2025 13:20-0400 Respiratory rate18 /[facility]04-21-2025 13:20-0400 SaO2% (BldA) [Mass fraction]97 %[facility]04-21-2025 13:20-0400Systolic blood pysnvnna682 mm[Hg][facility] Encounters Encounter DateEncounter TypeCare ProviderFacilityStart: 04-17-2025 End: 55-71-1972igryiniiorXHCHGI SCOOTERSum[facility] Start: 50-95-9868kgyzhbphblJSCSEast Liverpool City Hospitaltart: 01-25-2025 End: 14-18-6547Ecbqnd flowsheetAnthony S Amolher DPM Work Phone: [facility] PodiatryStart: 01-25-2025 End: 66-98-0141Ivydpt flowsheetAnthony S Amolher DPM Work Phone: [facility] PodiatryStart: 01-25-2025 End: 44-41-7158zxlnjovegwQLQFEYW S RUSHERNot AvailableStart: 01-25-2025 End: 74-40-3346Rkynwis encounter procedureAnthony S Marly DPM Work Phone: [facility] PodiatryComment on above:Onychodystrophy (Primary Dx); Onychomycosis; Corns and callosities; Diabetic polyneuropathy associated with type 2 diabetes mellitus (HCC)Start: 02-60-9372sdcvfixvfyAKWDUniversity Hospitals Elyria Medical Centertart: 21-60-7941ninlkbsyjfUTKO OTILIAOUnMercy Health St. [facility] CenterStart: 10-19-2024 End: 34-11-8537Ucrskt flowsheetLaurieony Erica Luke DPM Work Phone: [facility] PODIATRYStart: 10-19-2024 End: 94-64-9870Estwmh flowsheetAnthony S Rusher DPM Work Phone: [facility] PODIATRYStart: 10-19-2024 End: 14-39-0256Vncwse outpatient new 45 minutesAnthony S Rusher DPM Work Phone: noms PODIATRYComment on above:Diabetic polyneuropathy associated with type 2 diabetes mellitus (CMS/HCC) (Primary Dx); Onychodystrophy; Onychomycosis; Corns and callosities; Paronychia of toe of left footStart: 10-19-2024 End: 23-20-5241buryeumitqDMKVIKL S RUSHERNot AvailableStart: 10-03-2024 End: 41-40-7980jfxvyrfkcyFsknkzvyrKindred Healthcare Work Phone: Start: 10-03-2024 End: 83-93-1520Pknqdoy encounter procedureSt. Luke'S Hospital Physician GroupNOR[facility] Work Phone: Start: 08-26-2022 End: 31-43-1106ncxhaiqhuzUY DIOGENES HOY .Facility:C5Prhhs: 08-20-2022 End: 43-63-8869wyptfookrmAP DIOGENES HOY .Facility:U7Cyzpj: 07-30-2022 End: 74-23-0357usxobqjondAX DIOGENES HOY .Facility:U8Pqcnx: 03-02-2022 End: 80-78-7626hvgwbzrvxwYC SRINATH Márquezcility:E1Kmaxa: 02-19-2022 End: 81-76-7841ydzhusphufFT DIOGENES HOY .Facility:I9Ugdpd: 01-15-2022 End: 68-95-9902oeoelthqgrRB DIOGENES HOY .Facility:I4Cvsxu: 04-06-2018 End: 90-23-6086Chqcshp encounter procedureHUMBERTO [facility] Hospitalart: 09-10-2017 End: 75-23-4861Qhyhntv encounter procedureL[facility]: 07-23-2017 End: 98-78-1333Ofmhsxh encounter procedureCESAR [facility]: 07-23-2017 End: 92-32-4203Vswmakr encounter procedureKALEB RODRIGUEZProMedica Toledo Hospital: 06-13-2017 End: 24-10-9118Suedntnedv and management of inpatientASIF MAHMOODFacility:[facility] Procedures DateProcedureProcedure DetailPerforming ClinicianStart: 63-55-3457PEU screening DR DIOGENES CASIANO .Comment on above:Performed By: #### PTT, PT #### [facility] [address] [place] [address] Dr. Artem Rojas Plan of Treatment DateCare ActivityDetailAuthorStart: 05-03-2025 End: 10-84-3953Gmzomos encounter ngngpurtu62/19/2025 9:00 AM EST Procedure Visit [facility] [address] [place] [address] Home Luke DPM [address] [place] [address] [facility] Wei PodiatryStart: 21-36-0791Sigbpichv vaccination [facility] HealthcareStart: 01-25-2025 End: 59-57-6093Zdhxcvj encounter /13/2025 9:15 AM EDT Procedure Visit [facility] [address] [place] [address] Home Luke DPM [address] [place] [address] [facility] PODIATRYStart: 10-19-2024 End: 34-30-0313Nbzlwgi encounter ghatzrjjv91/07/2025 10:00 AM EDT Office Visit [facility] [address] [place] [address] Home Luke, DPStephania [address] [place] [address] ArrivedNOMS PODIATRYComment on above:ArrivedStart: 89-06-7962Nodhimb referralSelect Medical Specialty Hospital [facility] Work Phone: Start: 48-61-7268Ahdzxukmmrwf Vaccine: 65+ Years (2 of 2 - PPSV23)Pneumococcal Vaccine: 65+ Years (2 of 2 - PPSV23)[facility] Patient referralSelect Medical Specialty [facility] Work Phone: Immunizations Immunization DateImmunizationNotesCare XeccblkdFlyugzzz12-38-4505quzojphau virus vaccine, unspecified formulationHome Luke DPM Work Phone: NOSalem Memorial District HospitalMuisbjobax64-98-0458JGGTH-74 mRNA, Comirnaty (Pfizer)[facility]03-08-2021COVID-19 mRNA, Comirnaty (Pfizer)[facility] Payers DatePayer CategoryPayerPolicy [id number] ([facility]) ..[id number] 2022Medicaid ..[id number] [id number] 2007MedicareMEDICARE [id number] of Defense ( and others)[id number] [id number] 1942Unknown [id number] 2.16.840.1.422031.3.57[id number] 2.16.840.1.341977.3.57[id number] 2.16.840.1.231685.3.57[id number] 2.16.840.1.918530.3.57[id number] 2.16.840.1.933529.3.57[id number] 2.16.840.1.949655.3.57[id number] 2.16.840.1.665656.3.57[id number] 2.16.840.1.478220.3.579.2.1259Department of Defense ( and others) for [id number] Social History DateTypeDetailFacilityStart: 11-03-2023 End: 76-06-3525Vgeaylp smoking status NHISEx-smoker (finding)[facility] Camp[facility]art: 17-97-0819RcoQchn (finding)[facility] Campustart: 42-54-3738Auc Assigned At BirthMaleFPremier Health Miami [facility] HospitalTobacco smoking status NHISTobacco smoking consumption unknownNOMS HealthcareStart: 42-62-0107Ody assigned at birthNot on fileNORI HealthcareStart: 09-40-9400Wshfxe identityNot on filePRIMARY CHILDR[facility] HealthcareHistory of tobacco use Current smokerNOMS HealthcareHistory of tobacco useCigarette SmokerNOMS HealthcareStart: 69-68-3243Njyprlf use and exposureSmokeless tobacco non-user [facility] HealthcareStart: 10-19-2024 End: 86-14-6405Vuhzanhtj beverage intakeEx-drinker (finding)[facility] Start: 40-71-9117Wkyslyn of Social functionNOMS Healthcare Progress note 04-17-2025 Note Date & WxwlTqngTbadvpgo22-68-1752 NoteUT Cardiology - [facility] Subjective Desean Landry Jr. is a 84 y.o. year old male [...] normal ventricular function, fixed inferior defect (prior NM vs. artifact), normal wall motion, no ischemia. [...] Update 07/08/2017: He was admitted recently to [facility] after falling and having rhabdomyolysis. He was hydrated. He did well. This was possibly related to deconditioning and he is getting physical therapy. He will be soon discharged to home from the assisted. otherwise he has no issues. Update 02/04/2018: [...] shortness of breath on exertion. His main iss (more content not included)...[facility] History of Present illness Narrative 01-25-2025 Note Date & ApkzRkbnAwqkwzne26-74-4418 History of Present illness Narrative* Home Luke, [facility] - 01/25/2025 9:15 AM EDT Images from the original note were not included. Subjective Patient ID: Jovany Landry Jr is a 84 y.o. male who presents for DM Foot Care (Pt is here today for diabetic foot care, ). HPI Established patient returns to clinic for diabetic foot evaluation. Review of Systems Constitutional: Negative for activity change and appetite change. Respiratory: Negative for chest tightness and shortness of breath. Cardiovascular: Positive for leg swelling. Negative for chest pain. Musculoskeletal: Positive for arthralgias. Skin: Negative for color change and wound. Neurological: Negative for weakness and numbness. Psychiatric/Behavioral: Negative for agitation and behavioral problems. Hematological: Does not bruise/bleed easily. Endocrine: Negative for cold intolerance and heat intolerance. Allergic/Immunologic: Negative for immunocompromised state. Past medical History Past Medical History: Diagnosis Date Diabetes mellitus (HCC) Heart disease Medications Current Outpatient Medications: apixaban (Eliquis) 5 MG tablet, Take 5 mg by mouth in the morning and 5 mg before bedtime., Disp: ,Rfl: aspirin 81 MG EC tablet, Take 81 mg by mouth Daily, Disp: , Rfl: cholecalciferol (Vitamin D-3) 25 MCG (1000 UT) capsule, Take 1,000 Units by mouth Daily, Disp: , Rfl: glimepiride (Amaryl) 2 MG tablet, Take 2 mg by mouth in the morning. Take before meals., Disp: , Rfl: simvastatin (Zocor) 20 MG tablet, Take 20 mg by mouth at bedtime, Disp: , Rfl: spironolactone (Aldactone) 50 MG tablet, Take 50 mg by mouth Daily, Disp: , Rfl: Allergies Patient has no known allergies. Past Surgical History Past Surgical History: Procedure Laterality Date CATARACT EXTRACTION Left 2019 INSERT / REPLACE / REMOVE PACEMAKER 2022 LEG SURGERY Left for cellulitis REFRACTIVE SURGERY Bilateral 2024 Family History Family History Problem Relation Name Age of Onset Cancer Mother Objective Physical Exam Constitutional: General: He is not in acute distress. Comments: Accompanied by caregiver. Cardiovascular: Comments: DP pulse: 1/4 PT pulse: 0/4 Skin temperature is warm to cool Edema: +1 pitting bilaterally Pulmonary: Effort: Pulmonary effort is normal. No respiratory distress. Musculoskeletal: Cervical back: Neck supple. No rigidity. Comments: Pedal deformities: Multiple hammertoe contractures bilaterally. Ankle dorsiflexion 0 degrees with the knee extended, flexed bilaterally. Skin: Capillary Refill: Capillary refill takes 2 to 3 seconds. Comments: 6 toenails exhibit clinical mycosis with thickened appearance, yellow/brown discoloration, crumbly texture and subungual debris. All 10 toenails are elongated. Hyperkeratotic tissue: Left foot: Plantar 5th metatarsal Right foot: Dorsolateral 4th toe Skin is diffusely thin, atrophic Hair growth: Absent Lipodermatosclerosis bilaterally. Neurological: Mental Status: He is alert. Comments: Protective sensation intact at 10/10 pedal sites Vibratory sensation diminished at the 1st MTP bilaterally. Psychiatric: Mood and Affect: Mood normal. Behavior: Behavior normal. Assessment/Plan ICD-10-CM 1. 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 Onychomycosis B35.1 3. Corns and callosities L84 4. Diabetic polyneuropathy associated with type 2 diabetes mellitus (HCC) E11.42 Patient was examined and evaluated. Ten toenails were debrided in length and thickness today utilizing a nail nipper and electric bur precision jig grinder without incident. A sterile #15 blade was utilized to reduce all hyperkeratotic tissue without incident and to patient's satisfaction. I have discussed the importance of daily foot examinations and tight blood sugar control. We will follow up in 3 months for at risk diabetic foot evaluation. This note was created with the assistance of a speech recognition program. While intending to generate a timely document that accurately reflects the content of the visit, no guarantee can be provided that every grammatical or spelling mistake has been or will be identified or corrected. Thank you for your understanding. Home Luke DPM documented in this encounterNOR[facility] Healthcare History of Present illness Narrative 10-19-2024 Note Date & NyxbSnonVstboaqg94-64-5805 History of Present illness Narrative* Home Luke DPM - 10/19/2024 10:00 AM EDT Images from the original note were not included. Subjective Patient ID: Desean Landry Jr is a 83 y.o. 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 Has been bothersome for a couple of months. Pt states he gets his nails trimmed at wound care. ). HPI This is a new patient who presents to clinic today with concern of left great toe pain. Patient states that his nail is very thick and he typically gets them trimmed at the [facility]. It sounds like his toe has been bothering him for a couple of months and getting worse. He has not noticed any drainage but exquisite tenderness on the toe especially when laying in bed and the sheets are resting on the toe. Patient denies being diabetic however he has elevated blood sugars and is on glimepiride. Denies numbness, tingling sensations. Review of Systems Constitutional: Negative for activity change and appetite change. Respiratory: Negative for chest tightness and shortness of breath. Cardiovascular: Positive for leg swelling. Negative for chest pain. Musculoskeletal: Positive for arthralgias. Skin: Negative for color change and wound. Neurological: Negative for weakness and numbness. Psychiatric/Behavioral: Negative for agitation and behavioral problems. Hematological: Does not bruise/bleed easily. Endocrine: Negative for cold intolerance and heat intolerance. Allergic/Immunologic: Negative for immunocompromised state. Past medical History Past Medical History: Diagnosis Date Heart disease Medications Current Outpatient Medications: apixaban (Eliquis) 5 MG tablet, Take 5 mg by mouth in the morning and 5 mg before bedtime., Disp: ,Rfl: aspirin 81 MG EC tablet, Take 81 mg by mouth Daily, Disp: , Rfl: cholecalciferol (Vitamin D-3) 25 MCG (1000 UT) capsule, Take 1,000 Units by mouth Daily, Disp: , Rfl: glimepiride (Amaryl) 2 MG tablet, Take 2 mg by mouth in the morning. Take before meals., Disp: , Rfl: simvastatin (Zocor) 20 MG tablet, Take 20 mg by mouth at bedtime, Disp: , Rfl: spironolactone (Aldactone) 50 MG tablet, Take 50 mg by mouth Daily, Disp: , Rfl: Allergies Patient has no known allergies. Past Surgical History Past Surgical History: Procedure Laterality Date CATARACT EXTRACTION Left 2019 INSERT / REPLACE / REMOVE PACEMAKER 2022 LEG SURGERY Left for cellulitis REFRACTIVE SURGERY Bilateral 2024 Family History Family History Problem Relation Name Age of Onset Cancer Mother Objective Physical Exam Constitutional: General: He is not in acute distress. Comments: Accompanied by caregiver. Cardiovascular: Comments: DP pulse: 1/4 PT pulse: 0/4 Skin temperature is warm to cool Edema: +1 pitting bilaterally Pulmonary: Effort: Pulmonary effort is normal. No respiratory distress. Musculoskeletal: Cervical back: Neck supple. No rigidity. Comments: Pedal deformities: Multiple hammertoe contractures bilaterally. Ankle dorsiflexion 0 degrees with the knee extended, flexed bilaterally. Skin: Capillary Refill: Capillary refill takes 2 to 3 seconds. Comments: 6 toenails exhibit clinical mycosis with thickened appearance, yellow/brown discoloration, crumbly texture and subungual debris. All 10 toenails are elongated. There is impingement along the lateral border of the left hallux with scant seropurulent discharge. Exquisite tenderness to palpation with mild periwound erythema of the lateral nail border without streaking cellulitis or lymphangitis. No foul odor. Hyperkeratotic tissue: Left foot: Plantar 5th metatarsal Right foot: Dorsal 4th toe Skin is diffusely thin, atrophic Hair growth: Absent Lipodermatosclerosis bilaterally. Neurological: Mental Status: He is alert. Comments: Protective sensation intact at 10/10 pedal sites Vibratory sensation diminished at the 1st MTP bilaterally. Psychiatric: Mood and Affect: Mood normal. Behavior: Behavior normal. Assessment/Plan ICD-10-CM 1. Diabetic polyneuropathy associated with type 2 diabetes mellitus (CMS/[facility]) E11.42 2. 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 Onychomycosis B35.1 4. Corns and callosities L84 5. Paronychia of toe of left foot L03.032 Patient was examined and evaluated. Diabetic foot evaluation performed. Patient is moderate risk from pedal complications due to peripheral vascular disease, pedal deformity and impingement due to dystrophic toenails and onychomycosis leading to paronychia. 9 toenails were debrided in length and thickness today utilizing a nail nipper and electric bur precision jig grinder without incident. A sterile #15 bladewas utilized to reduce all hyperkeratotic tissue without incident and to patient's satisfaction. I have discussed the importance of daily foot examinations and tight blood sugar control. We will follow up in 3 months for at risk diabetic foot evaluation. Due to the impingement along the lateral border of the left hallux with seropurulent discharge and exquisite tenderness to palpation I have recommended incision and drainage with debridement and decompression of the nail to alleviate the infection and clear the impingement. Informed consent obtained by patient's caregiver. Left hallux was anesthetized using 3 mL of 2% lidocaine plain. The digit was then scrubbed, prepped, draped in the usual aseptic manner. Utilizing a sterile nail nipper I wasable to successfully decompress the offending lateral nail plate without incident. Trace purulence was encountered after debridement of the offending nail plate and this was relieved and flushed withcopious amounts of saline. No deep, tunneling, ulcer or sinus tract was encountered post-debridement. Clean dressing was applied which may be removed later today. Patient and caregiver inquired aboutpermanent removal of the left hallux toenail however, due to his suspected peripheral vascular disease I think that the best course of action would simply be debridement on a regular basis. Recommendclose follow up for regular debridement as noted above. Procedure should be curative of infection and I have elected not to place him on antibiotics. They will call sooner with any questions or concerns. This note was created with the assistance of a speech recognition program. While intending to generate a timely document that accurately reflects the content of the visit, no guarantee can be provided that every grammatical or spelling mistake has been or will be identified or corrected. Thank you for your understanding. Home Luke DPM [facility]-2024 Note Date & FnynBlhtPusabyda15-88-6025 Hospital Discharge instructionsAmbulatory Orders* Referral to Podiatry Time Frame: 10/03/24, Location: None Selected [facility] Work Phone: Evaluation note Note Date & TypeNoteFacilityEvaluation noteNo assessment information available [facility] Work Phone: Evaluation note Note Date & TypeNoteFacilityEvaluation note* Diagnosis Diabetic polyneuropathy associated with type 2 diabetes mellitus ([facility]/HCC)- Primary Onychodystrophy Other specified disease of nail Onychomycosis Dermatophytosis of nail Corns and callosities Paronychia of toe of left foot documented in this encounter [facility] Evaluation note Note Date & TypeNoteFacilityEvaluation note* Diagnosis Onychodystrophy- Primary Other specified disease of nail Onychomycosis Dermatophytosis of nail Corns and callosities Diabetic polyneuropathy associated with type 2 diabetes mellitus (HCC) documented in this encounter [facility] Healthcare Summary Purpose Family History No Family History Records Found Relationship Condition Age at Onset Recorded Date/T cheri Not Specified Unknown family medical history Unknown Advance Directives No Advanced Directives Records Found Advance Directive Response Recorded Date/ Time Advance Directives No November 02 12:06pm Chief Complaint and Reason for Visit Chief Complaint Admit Date Left great toe pain, redness, swelling A pril 2024 1:10pm Additional Source Comments (unrecognized sect ion and content) No Status Records FoundNo Status Records FoundNo Status Records FoundNo Status Records FoundNo Status Records FoundNo Status Records FoundNo Status Records Found INFORMATION SOURCE (unrecogn ized section and content) DATE CREATED AUTHOR 12/08/2017 [facility] DATE CREATED AUTHOR AUTHOR'S ORGANIZ ATION 05/18/2018 [facility] DATE CREATED AUTHOR AUTHOR'S ORGANIZ ATION 01/16/2021 [facility] DATE CREATED AUTHOR AUTHOR'S ORGANIZ ATION 06/06/2021 [facility] DATE CREATED AUTHOR AUTHOR'S ORGANIZ ATION 09/02/2022 [facility] DATE CREATED AUTHOR AUTHOR'S ORGANIZ ATION 01/26/2025 [facility] DATE CREATED AUTHOR AUTHOR'S ORGANIZ ATION 04/17/2025 [facility] Care Teams (unrecognized sec tion and content) Team Status: Active Member Role Status Dates Diogenes Casiano MD Primary Care Provider Active Team Status: Inactive Member Role Status Dates Diogenes Casiano MD Primary Care Provider Active Start: October 03, 2024 End: October 03, 2024Murray Mcallister ProviderActiveStart: October 03, 2024 End: October 03, 2024Team MemberRelationshipSpecialtyStart DateEnd Date Diogenes Casiano MD [address] [place] [address] [facility]/24Team MemberRelationshipSpecialtyStart DateEnd Date Diogenes Casiano MD [address] [place] [address] [facility] - [facility]10/19/24Team MemberRelationshipSpecialtyStart DateEnd Date Diogenes Casiano MD [address] [place] [address] PCP - GeneralFamily Medicine10/19/24Team MemberRelationshipSpecialtyStart DateEnd Date Diogenes Casiano MD [address] [place] [address] PCP - GeneralFamily Medicine10/19/24 Goals (unrecognized section and content) Goals may be documented in a n alternate section Reason for Visit (unrecogniz ed section and content) ReasonCommentsToenail Care83 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 Has been bothersome for a couple of months. Pt states he gets his nails trimmed at wound care.ReasonCommentsDM Foot CarePt is here today for diabetic foot care, FOR RECORDS PERTAINING TO PATIENTS WHO ARE [...] BE BASED ON THE PRIMARY CLINICAL RECORDS. [employer] provides no warranty or guarantee of the accuracy or completeness of information in this document.
== END 2025-04-24 15:19 | disposition home or self-care (01) ==
LOC: LAB 15:18
PROVIDERS: PCP Family Medicine; Visit Provider Family Medicine
DX: L03.90 Cellulitis, unspecified (principal)
CPT/HCPCS: 87070; 87075

== ENCOUNTER 2025-04-27 14:54 | Outpatient (OUT) | payer MEDICARE, OTHER, MEDICAID, SELFPAY ==
--- OUTSIDE RECORDS SUMMARY | 2024-08-03 04:30 | XMS_ITS ---
Author Organization [facility] in Midnight Address [address] [place] [address] Care Team Providers Care Supervisor Cutting Department Name Role Phone RadhaMaximo Primary Care Provider [phone] Colleen Lopez Unavailable [phone] REASON FOR VISIT NAIL CARE Encounters Encounter Location Date Provider Diagnosis [facility] (PODIATRY) [address] [place] [address] [place] [address] 08/03/2024 Colleen Lopez Plan Of Treatment Next Appt Details Provider Name:Maximo Garcia, 09:15:00 AM, [address] [facility], [place], [address], Progress Notes * Shiraz LANDRY JrDOB:1940 (84 yo M)Acc No.[id number]:08/03/2024 UNLOCKED PROGRESS NOTE Nurse Visit Patient: Maged Shiraz SANTIZO Jr :?EMA SpauldingCDOB:1940???Age:83 Y ???Sex:MaleDate:08/03/2024Phone:[phone]: CHIARA BANUELOS [id number]:Maximo Gordon In:09:31 AM ESTCheck Out:09:53 AM EST Subjective: * Chief Complaints: * 1 . NAIL CARE. * Medical History: Objective: * Vitals: Assessment: Plan: * Treatment: * * Electronic signature of Colleen Lopez PA-C on 04/27/2025 at 02:56 PM ESTSign off status: PendingVisit Status:?CHK (Check Out) * Provider: Thang Lopez PA-C Date: 0 08/03/2024 Generated for Printing/Faxing/eTransmitting on:?04/27/2025 02:56 PM EST
--- OUTSIDE RECORDS SUMMARY | 2024-12-26 04:15 | XMS_ITS ---
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 Name Role Phone Ryan Galvez Unavailable [phone] REASON FOR VISIT Extraction # Social History Sex Assigned At : Social History Observation Description Sex Assigned At Male Encounters Encounter Location Date Provider Diagnosis [facility] [address], [place] [id number] 12/26/2024 Ryan Galvez Plan Of Treatment Next Appt Details Provider Name:Ryan Galvez , 05/17/2025 10:15:00 AM, [address] [place] [address], [phone], Progress Notes * Shiraz DONOHUEDOB:1940 (84 yo M)Acc No.[id number]:12/26/2024 Patient:?Shiraz DONOHUE :?Ryan Galvez DDSDOB:1940???Age:84 Y ???Sex:MaleDate:12/26/2024Phone:[phone]:[address] [place], [place]-[id number] Subjective: * Chief Complaints: * 1 . Extraction #. * Medical History: Objective: * Vitals: Assessment: Plan: * Treatment: * Billing Information: * Visit Code: * Procedure Codes: * Electronic signature of Ryan Galvez DDS on 04/27/2025 at 02:55 PM ESTSign off status: Pending * Provider: Thang Galvez DDS Date: 0 12/26/2024 Generated for Printing/Faxing/eTransmitting on:?04/27/2025 02:55 PM EST
--- OUTSIDE RECORDS SUMMARY | 2025-04-17 10:00 | XMS_ITS | Encounter Summary ---
Author Organization [facility] Address [address] [place] [address] Care Team Providers Care In Service Educator Name Role Phone Vahid Garcia MD Primary Care Provider Reason for Referral * Imaging (Routine) - Pending ReviewSpecialtyDiagnoses / ProceduresReferred By ContactReferred To ContactCardiology Diagnoses Permanent atrial fibrillation (CMS/HCC) Procedures Transthoracic echo (TTE) complete Jourdan Moore MD [address] [place] [address] Phone: tel: fax: Referral IDStatusReasonStart DateExpiration DateVisits RequestedVisits [id number] Review Perform Procedure Encounter Details DateTypeDepartmentCare Team (Latest Contact Info)Uefbyowmare42/03/2025 10:00 AM ESTOffice Visit [facility] at [address] [address] Jourdan Moore MD [address] [facility] [address] [place] [address] Permanent atrial fibrillation (CMS/HCC) (Primary [...] relatives?Twice a week09/02/2022How often do you attend jehovah's witness or rastafarian services?More than 4 times per year09/02/2022o you belong to any clubs or organizations such as jehovah's witness groups, unions, fraternal or athletic emma ups, or school groups?Yes09/02/2022How often do you attend meetings of the clubs or organizations you belong to?More than 4 times per year09/02/2022re you , , , , never , or living with a partner? Kcuoxtcrv63/21/2023UDIT-CAnswerDate RecordedQ1: How often do you have a [...] housing, medical care, and heating?Not hard at all09/02/2022[facility] of Occupational Health - Occupational Stress QuestionnaireAnswerDate [...] steady place to sleep or [facility] ([facility])?No 09/02/2022Hunger Vital SignAnswerDate RecordedWithin the past 12 months, you worried that your food would run out before you got the money to buymore.Never true09/02/2022Within the past 12 months, the food you bought just didn't last and you didn't have money to get more.Never true09/02/2022Sex and Gender InformationValueDate RecordedSex Assigned at MfzvcGanc81/17/2025 8:22 PM EDT Legal SnlLfol6312/11/2021 10:46 PM EDTGender JpcmcjeiDqen27/17/2025 8:22 PM EDT Sexual OrientationChoose not to fdqjiceu34/ 8:22 PM EDTdocumented as of this encounter Last Filed Vital Signs Vital SignReadingTime TakenCommentsBlood Ufrcftlv619/6804/17/2025 10:09 AM EST Asght588004/17/2025 10:09 AM ESTTemperature--Respiratory Rate--Oxygen Saturation 99%04/17/2025 10:09 AM ESTInhaled Oxygen Concentration--Cxvdnm32.5 kg (195 lb) 04/17/2025 10:09 AM VEDZyneyw702.3 cm (5' 9 )04/17/2025 10:09 AM ESTBody Mass Index28.8106/17/2024 10:09 AM ESTdocumented in this encounter Functional Status * BPAnswerDate of YgrwhuhvcdIqxgsa336/6804/17/2025 10:09 AM Karla Birmingham MA * PulseAnswerDate of AwkfpvsfapHxtoaf9597/03/2025 10:09 AM Karla Birmingham MA * Patient PositionAnswerDate of XuluyjulysYeqgvaZhrjuxd74/03/2025 10:09 AM Karla Snyder MA * BPAnswerDate of HiqqwpjrszIvqbnw063/6804/17/2025 10:09 AM Karla Birmingham MA * PulseAnswerDate of MzzeblusfnCogira9356/03/2025 10:09 AM Karla Birmingham MA * FvA3WkjbdjXgzp of IscasbfrseClpdus0765/03/2025 10:09 AM Karla Birmingham MA * BP LocationAnswerDate of AssessmentAuthorLeft arm04/17/2025 10:09 AM Karla Snyder MA * Patient PositionAnswerDate of ZzukixdgruGefjjqUrhxalp46/03/2025 10:09 AM Karla Snyder MA documented as of this encounter Progress Notes * Jourdan Moore MD - 04/17/2025 10:00 AM EST Images from the original note were not included. [place] [facility] Subjective Shiraz Hyatt Charanjit Leggett is [...] 07/08/2017: He was admitted recently to [facility] after falling and having rhabdomyolysis. He was hydrated. He did well. This was possibly related to deconditioning and he is getting physical therapy. He will be soon discharged to home from the skilled nursing. otherwise he has no issues. Update 02/04/2018: [...] up. In 03/03/2022 he was admitted to [facility] after a mechanical fall and subsequent [...] He was admitted with cellulitis to the [facility] in January 2024 and follows with wound [...] Interval 09/01/2022 472 QTC CALCULATION(BAZETT) 09/01/2022 459 R-[place] 09/01/2022 -41 T Wave [place] 09/01/2022 0 Sodium 08/26/2022 139 Potassium 08/26/2022 [...] MemberRelationshipSpecialtyStart DateEnd Date Vahid Garcia MD [address] [facility] [place] [address] PCP - Bdblymc90/4/22documented as of this encounter
--- OUTSIDE RECORDS SUMMARY | 2025-04-21 09:00 | XMS_ITS ---
Author Organization The [facility] in [place] Address [address] [place] [address] Care Team Providers Care Encephalographer Name Role Phone Maximo Garcia Primary Care Provider [phone] Allergies No Known Allergies REASON FOR VISIT open sores on bilateral lower ext Medications Medication SIG (Take, Route, Frequency, Duration) Notes Start Date End Date Status True Metrix Air Glucose Meter w/Device as direct ed ActiveTrue Metrix Blood Glucose Test -USE 1 TEST STRIP TO TEST BLOOD SUGAR ONCE DAILY AND IF NEEDED; Duration: 90 daysActiveSimvastatin 20 MGtake 1 tablet by mouth every evening; Duration: 90ActiveSpironolactone 50 MG1 tablet Orally once daily; Duration: 30 daysActiveDoxycycline Monohydrate 100 MG1 tablet Orally bid; Duration: 5ActiveCefdinir 300 MG2 capsule Orally once a day; Duration: 5ActiveMethocarbamol 500 MG1 tablet Oral every evening; Duration: 30 daysActiveRA Vitamin D-3 50 MCG (1999)take 1 capsule by mouth once daily; Duration: 90ActiveGlimepiride 2 MG1 tablet with breakfast or the first main meal of the day Orally Once a day; Duration: 30 daysActiveLancets 30G -as directed test daily dx E11.9 Daily; Duration: 90 days3Active Cleocin-T 1 %1 application Externally Twice a day5ActiveDicyclomine HCl 20 MGtake 1 tablet by mouth three times a day; Duration: 30ActiveEliquis 5 MG1 tablet Orally Twice a day; Duration: 30 daysActiveAspirin 81 MGchew and swallow 1 tablet by mouth once daily; Duration: 30 daysActiveCompression Stocking Below Knee 20-30mmHg -wear daily DX I73.9; Duration: 30 daysActive Social History Tobacco Use: Social History Observation Description Date Details (start date - stop date) Former Smoker 06/15/1956 - 06/15/2001 Tobacco Use/Smoking Question Answer Notes Patient is a former smoker When did you start smoking?06/15/1956When did you stop smoking?06/15/2001How long has it been since you last smoked?> 10 years Vital Signs Weight 199.4 lbs 04/21/2025 Height 69 in 04/21/2025 Blood pressure systolic 162 mm Hg 04/21/20 25 Blood pressure diastolic 90 mm Hg 025 BMI 29.44 kg/m2 04/21/2025 Encounters Encounter Location Date Provider Diagnosis [facility] [address] [place] [address] 04/21/2025 Maximo Hoy Cellulitis L03.90 ; Essential (primary) hypertension I10 ; PVD (peripheral vascular disease) I73.9 ; Iron deficiency anemia D50.9 ; Permanent atrial fibrillation I48.21 and Diabetes mellitus E11.9 Assessments Encounter Date Diagnosis (ICD Code) Assessment Notes Treatment Notes Treatment Clinical Notes Section Notes 04/21/2025 Cellulitis (ICD-10 - L03.90) 04/21/2025Essential (primary) hypertension (ICD-10 - I10)04/21/2025PVD (peripheral vascular disease) (ICD-10 - I73.9)04/21/2025Iron deficiency anemia (ICD-10 - D50.9)04/21/2025Permanent atrial fibrillation (ICD-10 - I48.21) 04/21/2025Diabetes mellitus (ICD-10 - E11.9) Plan Of Treatment Medication Medication Name Sig Start Date Stop Date Notes Doxycycline Monohydrate 100 MG 1 tablet Orally b id; Duration: 10 days 04/21/2025 Cefdinir 300 MG2 capsule Orally once a day; Duration: 10 days04/21/2025leocin-T 1 %1 application Externally Twice a day04/21/2025Pending Test Test Name Order Date HEMOGLOBIN A1C (GLYCO) 04/21/2025 IRON, TOTAL 04/21/2025 LIPID PANEL (CHOL/TRIG/HDL/LDL) 04/21/20 25 VITAMIN D, 25 LEVEL (TOTAL) 04/21/2025 BNP 04/21/2025 THYROID PANEL (T4/TSH/FREE T3) 5 CMP (COMP MET CHRISTENSEN) w/eGFR CKD-EPI 2024 CBC WITH DIFF 04/21/2025 Next Appt Details Provider Name:Maximo Garcia, 09:15:00 AM, [address] [place], [address], Progress Notes * Shiraz LANDRY JrDOB:1940 (84 yo M)Acc No.[id number]:04/21/2025 Progress Note Patient: Maged SANTIZO Shiraz Crawford Jr :?Vahid Garcia ([facility]), MDDOB:1940???Age: 84 Y???Sex:MaleDate:04/21/2025Phone:[phone]:[address], [place], [id number] In:01:53 PM ESTCheck Out:02:16 PM EST Subjective: * Chief Complaints: * O pen sores on bilateral lower ext * HPI: ???General:? R post and ant lower calf opening. * Active Problem List R32 Urinary incontinence Modified On:11/19/2022 Status:xzqtuhexsY04.9Fecal incontinence Modified On:11/19/2022 Status:xswotmjhcI34.0Presence of cardiac pacemaker Modified On:09/11/2022U Status:dqkqetabqW58.9Diabetes mellitus Modified On:08/12/2023U Status:itoxwiabsO21.1Bradycardia, unspecified Modified On:12/17/2022 Status:kvxazrbdkZ62Fepyhshau (primary) hypertension Modified On:08/12/2023U Status:azcmhynykV53.21Permanent atrial fibrillation Modified On:12/17/2022 Status:xyfqtoewdB32.7Diarrhea Modified On:08/12/2023U Status:ngflvaaxoX87.10Stasis dermatitis Modified On:07/01/2023 Status:fklozxedo779.8Skin tear Modified On:08/26/2023 Status:ryoedbaazB98.40Lumbago with sciatica, unspecified side Modified On:09/02/2023 Status:tilpofnpxK20.9Degenerative arthritis of hip Modified On:09/02/2023 Status:esfoscsnrU46.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 Modified On:09/02/2023 Status:koyfevcvfA10.1Dysarthria Modified On:10/30/2023 Status:szkdykffqB36.90Acute sinusitis Modified On:10/30/2023 Status:dcqxdawrpM99.90Cellulitis Modified On:02/18/2024 Status:kqyigsiitO88.9Anemia, iron deficiency Modified On:02/24/2024 Status:llbyojhhtP50.9PVD (peripheral vascular disease) Modified On:02/24/2024 Status:imrpuqqdeJ49.9Iron deficiency anemia Modified On:02/24/2024 Status:zobwrcusbP07.1Mild protein-calorie malnutrition Modified On:02/24/2024 Status:awwbfwzlmT03.7Biatrial enlargement Modified On:03/28/2024 Status:mykfgsdazZ93.1Aortic valve regurgitation Modified On:03/28/2024 Status:cenzykprmF45.7Left ventricular hypertrophy Modified On:03/28/2024 Status:mevfcaanqB87.20Pulmonary hypertension Modified On:03/28/2024 Status:confirmed * Medical History: * Surgical History: C ataract Extraction Cardiac Pacemaker Implant 08/2022 * Hospitalization/Major Diagno stic Procedure: P acemaker implanted 08/2022Small bowel obstruction ellulitis 12/2018 * Family History: F ather: . M other: . patient unable. * Social History: ???Tobacco Use:?Tobacco Use/Smoking?Patient is a?former smoker ?When did you start smoking??06/15/1956 ?When did you stop smoking??06/15/2001 ?How long has it been since you last smoked? > 10 years * Medications: T akingAspirin 81 MG Tablet Chewable chew and swallow 1 tablet by mouth once daily Compression Stocking Below Knee 20-30mmHg - - wear daily DX I73.9 Dicyclomine HCl 20 MG Tablet take 1 tablet by mouth three times a day Eliquis(Apixaban) 5 MG Tablet 1 tablet Orally Twice a day Glimepiride 2 MG Tablet 1 tablet with breakfast or the first main meal of the day Orally Once a day Lancets 30G - Miscellaneous as directed test daily dx E11.9 Daily Methocarbamol 500 MG Tablet 1 tablet Oral every evening RA Vitamin D-3 50 MCG (1999) Capsule take 1 capsule by mouth once daily Simvastatin 20 MG Tablet take 1 tablet by mouth every evening Spironolactone 50 MG Tablet 1 tablet Orally once daily True Metrix Air Glucose Meter(Blood Glucose Monitoring Suppl) w/Device Kit as directed True Metrix Blood Glucose Test(Glucose Blood) - Strip USE 1 TEST STRIP TO TEST BLOOD SUGAR ONCE DAILY AND IF NEEDED Medication List reviewed and reconciled with the patientTaking Aspirin 81 MG Tablet Chewable chew and swallow 1 tablet by mouth once daily Taking Compression Stocking Below Knee 20- 30mmHg - - wear daily DX I73.9 Taking Dicyclomine HCl 20 MG Tablet take 1 tablet by mouth three times a day Taking Eliquis(Apixaban) 5 MG Tablet 1 tablet Orally Twice a day Taking Glimepiride 2 MG Tablet 1 tablet with breakfast or the first main meal of the day Orally Once a day Taking Lancets 30G - Miscellaneous as directed test daily dx E11.9 Daily Taking Methocarbamol 500 MG Tablet 1 tablet Oral every evening Taking RA Vitamin D-3 50 MCG (1999 UT) Capsule take 1 capsule by mouth once daily Taking Simvastatin 20 MG Tablet take 1 tablet by mouth every evening Taking Spironolactone 50 MG Tablet 1 tablet Orally once daily Taking True Metrix Air Glucose Meter(Blood Glucose Monitoring Suppl) w/Device Kit as directed Taking True Metrix Blood Glucose Test(Glucose Blood) - Strip USE 1 TEST STRIP TO TEST BLOOD SUGAR ONCE DAILY AND IF NEEDED Medication List reviewed and reconciled with the patient * Allergies: N .K.D.A.no[Allergies Verified] Objective: * Vitals: W t:199.4lbs, Ht: 69 in, BP:162/90mm Hg, BMI:29.44Index, Ht-cm: 175.26 cm, Wt-k.45 kg. * Examination: ???Abdomen Exam:: ???R ant lower leg and silver dollar size ovben area on post calf. Assessment: * Assessment: 1.?Cellulitis - L03.90 (Primary)???2.?Iron deficiency anemia - D50.9?& #160;?3.?Permanent atrial fibrillation - I48.21???4.?Diabetes mellitus - E11.9???5.?Essential (primary) hypertension - I10???6.?PVD (peripheral vascular disease) - I73.9??? Plan: * Treatment: Start Cleocin-T Lotion, 1 %, 1 application, Externally, Twice a day, 60, Refills 11;?Start Cefdinir Capsule, 300 MG, 2 capsule, Orally, once a day, 10 days, 20 Capsule, Refills 0;?Start Doxycycline Monohydrate Tablet, 100 MG, 1 tablet, Orally, bid, 10 days, 20 Tablet.?LAB: BNP2.?Iron deficiency anemia?LAB: HEMOGLOBIN A1C (GLYCO) ?LAB: IRON, TOTAL ?LAB: LIPID PANEL (CHOL/TRIG/HDL/LDL) ?LAB: VITAMIN D, 25 LEVEL (TOTAL) ?LAB: THYROID PANEL (T4/TSH/FREE T3) ?LAB: CMP (COMP MET CHRISTENSEN) w/eGFR CKD-EPI ?LAB: CBC WITH DIFF3.?Permanent atrial fibrillation?LAB: HEMOGLOBIN A1C (GLYCO) ?LAB: IRON, TOTAL ?LAB: LIPID PANEL (CHOL/TRIG/HDL/LDL) ?LAB: VITAMIN D, 25 LEVEL (TOTAL) ?LAB: THYROID PANEL (T4/TSH/FREE T3) ?LAB: CMP (COMP MET CHRISTENSEN) w/eGFR CKD-EPI ?LAB: CBC WITH DIFF4.?Diabetes mellitus?LAB: HEMOGLOBIN A1C (GLYCO) ?LAB: IRON, TOTAL ?LAB: LIPID PANEL (CHOL/TRIG/HDL/LDL) ?LAB: VITAMIN D, 25 LEVEL (TOTAL) ?LAB: THYROID PANEL (T4/TSH/FREE T3) ?LAB: CMP (COMP MET CHRISTENSEN) w/eGFR CKD-EPI ?LAB: CBC WITH DIFF5.?Essential (primary) hypertension?LAB: HEMOGLOBIN A1C (GLYCO) ?LAB: IRON, TOTAL ?LAB: LIPID PANEL (CHOL/TRIG/HDL/LDL) ?LAB: VITAMIN D, 25 LEVEL (TOTAL) ?LAB: THYROID PANEL (T4/TSH/FREE T3) ?LAB: CMP (COMP MET CHRISTENSEN) w/eGFR CKD-EPI ?LAB: CBC WITH DIFF6.?PVD (peripheral vascular disease)?LAB: HEMOGLOBIN A1C (GLYCO) ?LAB: IRON, TOTAL ?LAB: LIPID PANEL (CHOL/TRIG/HDL/LDL) ?LAB: VITAMIN D, 25 LEVEL (TOTAL) ?LAB: THYROID PANEL (T4/TSH/FREE T3) ?LAB: CMP (COMP MET CHRISTENSEN) w/eGFR CKD-EPI ?LAB: CBC WITH DIFF * Procedure Codes: * * Sign off status: CompletedVisit Status:?CHK (Check Out) true * Provider: Curt Garcia ([facility])MD Date: 1 06/21/2024 Generated for Printing/Faxing/eTransmitting on:?04/27/2025 02:56 PM EST History and Physical Notes * HPI (History of Present Illness) CategorySub-CategoryDetailNotesCategory NotesGeneral R post and ant lower calf opening Examination CategorySub-CategoryDetailNotesCategory NotesAbdomen Exam:R ant lower leg and silver dollar size ovben area on post calf
--- OUTSIDE RECORDS SUMMARY | 2025-04-24 09:45 | XMS_ITS ---
Author Organization [facility] in [place] Address [address] [place] [address] Care Team Providers Care Reliability Technician Name Role Phone Radha Maximo Primary Care Provider Allergies No Known Allergies Reason For Referral Reason wound management sapna ointment please Diagnosis 1 Cellulitis (L03.90) Referral Organization [facility] Medicine Referring Provider First Name Maximo Referring Provider Last Name Radha Referring Provider Speciality Family Med icine Referred Provider [facility], [facility] Referred Provider Specialty Clinic or [facility] practice Referral Priority Routine REASON FOR VISIT leg wounds f/u, nurse said his legs look worse, very red Medications Medication SIG (Take, Route, Frequency, Duration) Notes Start Date End Date Status Glimepiride 2 MG 1 tablet with breakf ast or the first main meal of the day Orally Once a day; Duration: 30 days ActiveEliquis 5 MG1 tablet Orally Twice a day; Duration: 30 daysActive Doxycycline Monohydrate 100 MG1 tablet Orally bid; Duration: 10 days04/21/2025 ActiveDicyclomine HCl 20 MGtake 1 tablet by mouth three times a day; Duration: 30ActiveCompression Stocking Below Knee 20-30mmHg -wear daily DX I73.9; Duration: 30 daysActiveAspirin 81 MGchew and swallow 1 tablet by mouth once daily; Duration: 30 daysActiveSpironolactone 50 MG1 tablet Orally once daily; Duration: 30 daysActiveTrue Metrix Blood Glucose Test -USE 1 TEST STRIP TO TEST BLOOD SUGAR ONCE DAILY AND IF NEEDED; Duration: 90 daysActiveCleocin-T 1 %1 application Externally Twice a day5ActiveTrue Metrix Air Glucose Meter w/Deviceas directedActiveMethocarbamol 500 MG1 tablet Oral every evening; Duration: 30 daysActiveSimvastatin 20 MGtake 1 tablet by mouth every evening; Duration: ActiveRA Vitamin D-3 50 MCG (1999)take 1 capsule by mouth once daily; Duration: 90ActivelevoFLOXacin 750 MG1 tablet Orally Once a day; Duration: 10 day(s)5ActiveLancets 30G -as directed test daily dx E11.9 Daily; Duration: 90 days3Active Social History Tobacco Use: Social History Observation Description Date Details (start date - stop date) Former Smoker 06/15/1956 - 06/15/2001 Tobacco Use/Smoking Question Answer Notes Patient is a former smoker When did you start smoking?06/15/1956When did you stop smoking?06/15/2001How long has it been since you last smoked?> 10 yearsAUDIT-C (Standard) Question Answer Notes Did you have a drink containing alcohol in the p ast year? No Chnazh8NpflqgstnounamYsqzemff Vital Signs Weight 198 lbs 04/24/2025 Height 69 in 04/24/2025 Blood pressure systolic 132 mm Hg 04/24/20 25 Blood pressure diastolic 82 mm Hg 025 BMI 29.24 kg/m2 04/24/2025 Encounters Encounter Location Date Provider Diagnosis [facility] [address] [place] [address] 04/24/2025 Maximo Hoy Cellulitis L03.9 0 Assessments Encounter Date Diagnosis (ICD Code) Assessment Notes Treatment Notes Treatment Clinical Notes Section Notes 04/24/2025 Cellulitis (ICD-10 - L03.90) stop cefdinir start levofloxacind keep cleocin cream and doxy dong surface cx Plan Of Treatment Medication Medication Name Sig Start Date Stop Date Notes Cefdinir 300 MG 2 capsule Orally once a day 04/21/2025 levoFLOXacin 750 MG1 tablet Orally Once a day; Duration: 10 day(s)04/24/2025 Treatment Notes Assessment Notes Cellulitis stop cefdinir start levofloxacind keep cleocin cream and doxy dong surface cx Pending Test Test Name Order Date CULTURE WOUND 04/24/2025 Referrals Referral Date Details 04/24/2025 04/24/2025, wound ma nagement appointment please, Central Scheduling [facility] Next Appt Details Provider Name:Maximo Garcia, 09:15:00 AM, [address] [place], [address], Progress Notes * Shiraz LANDRY DOB:1940 (84 yo M)Acc No.[id number]:04/24/2025 Progress Note Patient: Shiraz BERRY Jr :?Vahid Garcia ([facility]), MDDOB:1940???Age: 84 Y???Sex:MaleDate:04/24/2025Phone:[phone]:FERNANDO ALDR[address]GE [place], [id number] In:02:40 PM ESTCheck Out:03:12 PM EST Subjective: * Chief Complaints: * l eg wounds f/u, nurse said his legs look worse, very red * HPI: ???General:? Legs looking worse per home nurse. * Active Problem List R32 Urinary incontinence Modified On:11/19/2022 Status:ognhsqbjmS61.9Fecal incontinence Modified On:11/19/2022 Status:ehjtejjwuF18.0Presence of cardiac pacemaker Modified On:09/11/2022 Status:uipsyppsyU36.9Diabetes mellitus Modified On:08/12/2023U Status:dpkfjxwmrK30.1Bradycardia, unspecified Modified On:12/17/2022 Status:ayrrtxybwJ05Efbxyyfye (primary) hypertension Modified On:08/12/2023U Status:fndzsshfzA88.21Permanent atrial fibrillation Modified On:12/17/2022 Status:hktywgrnfD12.7Diarrhea Modified On:08/12/2023U Status:hjmwvlhwnG65.10Stasis dermatitis Modified On:07/01/2023U Status:yrajvhdnk060.8Skin tear Modified On:08/26/2023U Status:altccxhbaO59.40Lumbago with sciatica, unspecified side Modified On:09/02/2023 Status:jmxvgeblsN02.9Degenerative arthritis of hip Modified On:09/02/2023 Status:ylonzqtemA66.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 Modified On:09/02/2023 Status:ogntjdvjjP56.1Dysarthria Modified On:10/30/2023 Status:ifvmiychmP25.90Acute sinusitis Modified On:10/30/2023 Status:xgynrmiasZ76.90Cellulitis Modified On:02/18/2024 Status:arvfqtpgnM99.9Anemia, iron deficiency Modified On:02/24/2024 Status:zxcxrppcxC12.9PVD (peripheral vascular disease) Modified On:02/24/2024 Status:lalcvlitbG77.9Iron deficiency anemia Modified On:02/24/2024 Status:zodyaqwcuZ50.1Mild protein-calorie malnutrition Modified On:02/24/2024 Status:mojkknalhU35.7Biatrial enlargement Modified On:03/28/2024 Status:vmmomzaktS19.1Aortic valve regurgitation Modified On:03/28/2024 Status:ovqsrpaceK04.7Left ventricular hypertrophy Modified On:03/28/2024 Status:eneyshxgqY28.20Pulmonary hypertension Modified On:03/28/2024 Status:confirmed * Medical History: [...] since you last smoked? > 10 years ???Drug/Alcohol:?AUDIT-C (Standard)?Did you have a drink containing alcohol in the past year??No ?Points?0 ?Interpretation?Negative * Medications: T akingAspirin 81 MG Tablet Chewable chew and swallow 1 tablet by mouth once daily Cefdinir 300 MG Capsule 2 capsule Orally once a day Cleocin-T(Clindamycin Phosphate) 1 % Lotion 1 application Externally Twice a day Compression Stocking Below Knee 20-30mmHg - - wear daily DX I73.9 Dicyclomine HCl 20 MG Tablet take 1 tablet by mouth three times a day Doxycycline Monohydrate 100 MG Tablet 1 tablet Orally bid Eliquis(Apixaban) 5 MG Tablet 1 tablet Orally Twice a day Glimepiride 2 MG Tablet 1 tablet with breakfast or the first main meal of the day Orally Once a day Lancets 30G - Miscellaneous as directed test daily dx E11.9 Daily Methocarbamol 500 MG Tablet 1 tablet Oral every evening RA Vitamin D-3 50 MCG (1999 UT) [...] 1 tablet by mouth once daily Taking Cefdinir 300 MG Capsule 2 capsule Orally once a day Taking Cleocin-T(Clindamycin Phosphate) 1 % Lotion 1 application Externally Twice a day Taking Compression Stocking Below Knee 20-30mmHg - - wear daily DX I73.9 Taking Dicyclomine HCl 20 MG Tablet take 1 tablet by mouth three times a day Taking Doxycycline Monohydrate 100 MG Tablet 1 tablet Orally bid Taking Eliquis(Apixaban) 5 MG Tablet 1 tablet Orally Twice a day Taking Glimepiride 2 MG Tablet 1 tablet with breakfast or the first main meal of the day Orally Once a day Taking Lancets 30G - Miscellaneous as directed test daily dx E11.9 Daily Taking Methocarbamol 500 MG Tablet 1 tablet Oral every evening Taking RA Vitamin D-3 50 MCG (1999) Capsule [...] N .K.D.A.no[Allergies Verified] Objective: * Vitals: W t:198lbs, Ht: 69 in, BP:132/82mm Hg, BMI:29.24Index, Ht-cm: 175.26 cm, Wt-k.81 kg. * Examination: ???Abdomen Exam:: ???Bilat legs with cellulitis - more drainage -=. Assessment: * Assessment: 1.?Cellulitis - L03.90 (Primary)??? Plan: * Treatment: Stop Cefdinir Capsule, 300 MG, 2 capsule, Orally, once a day;?Start levoFLOXacin Tablet, 750 MG, 1 tablet, Orally, Once a day, 10 day(s), 10.?LAB: CULTURE WOUND Notes: stop cefdinir start levofloxacind keep cleocin cream and doxy dong surface cx? Referral To:Central Scheduling [facility]??Clinic or group practice ?Reason:wound management appointment please * Procedure Codes: * Preventive Medicine: ??Screenings/Counseling:?BMI ACTION PLAN?Above Normal BMI Follow-up?Dietary management education, guidance, and counseling ?FALL RISK SCREENING?Fall Risk Assessment:?No falls in the past year * * Sign off status: CompletedVisit Status:?CHK (Check Out) true * Provider: Curt Garcia ([facility])MD Date: 06/24/2024 Generated for Printing/Faxing/eTransmitting on:?04/27/2025 02:55 PM EST History and Physical Notes * HPI (History of Present Illness) CategorySub-CategoryDetailNotesCategory NotesGeneralLegs looking worse per home nurse Examination CategorySub-CategoryDetailNotesCategory NotesAbdomen Exam:Bilat legs with cellulitis - more drainage -= Consultation Request Notes Referral Date Referring Provider Referred Provider Not nina 04/24/2025 Maximo Garcia [facility], Central Scheduling jim acosta management appointment please
--- OUTSIDE RECORDS SUMMARY | 2025-04-27 14:56 | XMS_ITS | Clinical Summary ---
Author Organization [facility] Address [address] [place] [address] Care Team Providers Care Erp Engineer Name Role Phone Vahid Garcia MD Primary Care Provider [phone] Allergies No known active allergies Medications MedicationSigDispense [...] mg by mouth at bedtimeActive Encounters DateTypeDepartmentCare KrlqAujiumxpfig70/13/2025 9:15 AM EDTProcedure Visit [facility] [address] [place] [phone] Home Luke DPM Onychodystrophy (Primary Dx); Onychomycosis; Corns and callosities; Diabetic polyneuropathy associated with type 2 diabetes mellitus (HCC)01/25/2025 Bamboo flowsheet [facility] [address] [place] [phone] Home Luke DPM 01/25/2025Travelfrom Last 3 Months Family History Medical HistoryRelationNameCommentsCancerMotherRelationNameStatusCommentsFather DeceasedMotherDeceased Social History Tobacco UseTypesPacks/DayYears UsedDateSmoking Tobacco: FormerCigarettes Smokeless Tobacco: Never Tobacco Cessation:Counseling Given: Not Answered Alcohol UseStandard Drinks/WeekCommentsNot Currently0 (1 standard drink = 0.6 oz pure alcohol)Sex and Gender InformationValueDate RecordedSex Assigned at Not on fileLegal GutNrge1908/27/2022 8:14 PM EDTGender IdentityNot on fileSexual OrientationNot on file Last Filed Vital Signs Vital SignReadingTime TakenCommentsBlood Wuqfsdcz372/7010 12:00 PM EDT Pulse--Temperature--Respiratory Rate--Oxygen Saturation--Inhaled Oxygen Concentration--Msfojt96.7 kg (200 lb)01/25/2025 9:22 AM DERHjeoda096.3 cm (5' 9 )01/25/2025 9:22 AM EDTBody Mass Index29.53001/25/2025 9:22 AM EDT Plan of Treatment DateTypeDepartmentCare Team (Latest Contact Info)Xosciygoojv08/19/2025 9:00 AM ESTProcedure Visit [facility] [address] [place] [address] Home Luke DPStephania [address] [place], [place] [id number] Insurance Care Teams Team MemberRelationshipSpecialtyStart Date Vahid Garcia MD [address] [facility] [place] [address] PCP - GeneralFamily Medicine10/19/24
--- OUTSIDE RECORDS SUMMARY | 2025-04-27 14:56 | XMS_ITS | Clinical Summary ---
Author Organization [facility] Address [address] [place], [place] [id number] Care Team Providers Care Director Cardiac Name Role Phone Vahid Garcia MD Primary Care Provider [phone] Allergies No known active allergies Active Problems No known active problems Family History Medical HistoryRelationCommentsHeart diseaseOtherunclear which family member RelationStatusCommentsOther Social History Tobacco UseTypesPacks/DayYears UsedDateSmoking Tobacco: FormerCigarettesQuit: 07/23/2011Smokeless Tobacco: NeverAlcohol UseStandard Drinks/WeekCommentsYes0 (1 standard drink = 0.6 oz pure alcohol)Area Deprivation IndexAnswerDate Recorded National Score (1-100), lower number is lower riskNot on file05/24/2020State Score (1-10), lower number is lower riskNot on file05/24/2020Data from: https://www.neighborhoodatlas.medicine.[facility].edu/. Last address used for calculationNot on file05/24/2020Sex and Gender InformationValueDate RecordedSex Assigned at BirthNot on fileLegal FepAawu3411/09/2015 3:25 PM EDTGender Identity Not on fileSexual OrientationNot on file Last Filed Vital Signs Vital SignReadingTime TakenCommentsBlood Rljkqhzx494/6803 9:28 AM EDT Rbzdg8307 9:28 AM KNPGwykvelfrkf36.5 ??C (97.7 ??F)09/10/2017 9:28 AM EDTRespiratory Flba7586 9:28 AM EDTOxygen Oafacelbbm47%09/10/2017 9:28 AM EDTInhaled Oxygen Concentration--Zhowqq21.3 kg (199 lb)09/10/2017 9:28 AM EDT Syzyny378.3 cm (5' 9 )09/10/2017 9:28 AM EDTBody Mass Index29.39009/10/2017 9:28 AM EDT Plan of Treatment Health MaintenanceDue DateLast DoneCommentsAnxiety Pfccrndru19/14/1960Depression Zbtogwhhk93/14/1960DTaP,Tdap,Td Vaccine (1 - Tdap)1Diabetes Screening 1986Pneumococcal Vaccine: 50+ (1 of 1 - PCV)10/27/1991Shingrix Vaccine (1 of 2)10/27/1991RSV Vaccine (1 - 1-dose 75+ series)2016Advance Directive Zxvaqrinep86/01/2025ovid-19 Vaccine (1 - 2024- season)2025Influenza Vaccine (#1)2025 Insurance Care Teams Team MemberRelationshipSpecialtyStart Date Vahid Garcia MD [facility]11/09/15
--- OUTSIDE RECORDS SUMMARY | 2025-04-27 14:56 | XMS_ITS | Clinical Summary ---
Author Organization [facility] Address [id number] [place] [address] Care Team Providers Care Civil Engineer Name Role Phone Vahid Garcia MD Primary Care Provider [phone] Allergies No known active allergies Medications MedicationSigDispense [...] cervical vertebra, unspecified fracture morphology, initial encounter ([facility])Take 1 capsule (300 mg total) by mouth every 8 (eight) hours.03/05/2022ctive sennosides-docusate sodium (SENOKOT-S) 8.6-50 mg Take 2 tablets by mouth nightly.03/05/2022ctive acetaminophen (TYLENOL EXTRA STRENGTH) 500 mg tablet Take 2 tablets (1,000 mg total) by mouth every 6 (six) hours as needed for pain. 30 tablet 03/05/2022ctive Active Problems ProblemNoted DateDiagnosed DateClosed nondisplaced fracture of sixth cervical jusjsxjf23/19/2022PAD (peripheral artery disease)03/23/2020Venous insufficiency (chronic) (peripheral)03/23/2020 Immunizations ImmunizationAdministration DatesNext DueInfluenza, Trivalent, Adjuvanted 03/21/2020Influenza, Xsatfinsaoc25/20/2017Pneumococcal Conjugate 13-Valent 04/03/2017Tdap03/03/2022 Social History Tobacco UseTypesPacks/DayYears UsedDateSmoking Tobacco: NeverSmokeless Tobacco: NeverAlcohol UseStandard Drinks/WeekCommentsNot Currently0 (1 standard drink = 0.6 oz pure alcohol)guardian states he may be drinking some but is not supposed toChildcareAnswerDate GychtczfMhozpeollVhtvcyl68/12/2019EmploymentAnswerDate PtlboxbyYsyysxuuyqUbwjbsf67/12/2019Purpose - LifeAnswerDate RecordedPurpose and direction in haenFttlrhm15/11/2021Sex and Gender InformationValueDate Recorded Sex Assigned at BirthNot on fileLegal PggVvgf6801/18/2015 11:54 AM EDTGender IdentityNot on fileSexual OrientationNot on file Last Filed Vital Signs Vital SignReadingTime TakenCommentsBlood Reaxoddz303/56003/05/2022 12:18 PM EDT Dfpqq1497/21/2022 12:18 PM SNCGtrljdipzna89.8 ??C (98.2 ??F)03/05/2022 12:18 PM EDTRespiratory Swkn509803/05/2022 12:18 PM EDTOxygen Fscybxlvnc61%03/05/2022 12:18 PM EDTInhaled Oxygen Concentration--Fdpkqw43.6 kg (171 lb)03/03/2022 12:15 PM VONWydowt322.3 cm (5' 9 )03/03/2022 12:15 PM EDTBody Mass Index25.25003/03/2022 12:15 PM EDT Plan of Treatment Health MaintenanceDue DateLast DoneCommentsDepression Qnkwbtaks66/14/1954Tobacco Mkdfcwrxh36/14/1954Zoster (Shingles) Vaccine (1 of 2)10/27/1991Fall Risk Zzhxbneqq07/14/2007RSV ( or age 60+ yrs) (1 - 1-dose 75+ series) 2016COVID-19 Vaccine ( - season)511/, 09/11/2020, 08/20/2020Influenza Ruypevt75/, 03/21/2020, 04/03/2017DTaP,Tdap and Td Vaccines (2 - Td or Tdap) Goals GoalPatient Goal TypeAssociated ProblemsRecent ProgressPatient-Stated?Author Return home Suzanne Hines RN Note: Evaluation of progress towards goal: Return home, after short term rehabilitation. Medical Devices ImplantedTypeAreaManufacturerDevice IdentifierShelf Expiration DateModel / Serial / LotLens Iol Ultrasert 17.0d - [id number] - [id number] Implanted:Qty: 1 on 06/29/2018 by Mojgan Garner MD at [facility]: [id number] 17.0 / [id number] / N/A Insurance Advance Directives TypeDate RecordedPatient RepresentativeExplanationLiving Will08/03/2017 11:48 AM [employer] PAPERWORK * Full Code (Latest Code Status on File) Date ActivatedDate InactivatedComments03/03/2022 5:54 AM03/05/2022 6:55 PM Care Teams Team MemberRelationshipSpecialtyStart DateEnd Date Vahid Garcia MD PCP - GeneralFamily Medicine06/29/18
--- OUTSIDE RECORDS SUMMARY | 2025-04-27 14:56 | XMS_ITS | Patient Health Record ---
Author Organization [facility] [place] Address [address] [place] [address] Care Team Providers Care Overhead Cleaner Maintainer Name Role Phone Maximo Garcia Primary Care Provider IsabelGeo morales Unavailable [phone] Colleen Lopez Unavailable [phone] Allergies No Known Allergies Results Component Value Reference Range Notes Aerobic Culture Reviewed date:04/26/2025 07:01:01 PM Interpretation: Performing Lab: Notes/Report: [facility] , Aerobic Culture See Below For Report Aerobic Culture Organism: Pseudomonas aeruginosa,, : O:PSEUAE Isolated Aerobic Culture*ABNORMAL* Aerobic Culture Organism: Pseudomonas aeruginosa,, : O:PSEUAE Isolated Aerobic CultureModerate growth Aerobic Culture Organism: Pseudomonas aeruginosa,, : O:PSEUAE Isolated Aerobic CulturePseudomonas aeruginosa,, Aerobic Culture Organism: Pseudomonas aeruginosa,, : O:PSEUAE Isolated Aerobic CultureSee Below For Report Aerobic Culture Organism: Pseudomonas aeruginosa,, : O:PSEUAE Isolated Aerobic CulturePerformed at: - [facility] A[facility] Culture Organism: Pseudomonas aeruginosa,, : O:PSEUAE Isolated Aerobic [address] [place], [place] [id number] Aerobic Culture Organism: Pseudomonas aeruginosa,, : O:PSEUAE Isolated Aerobic CultureLab Director: Walt Patel PhD, Phone: [phone] Aerobic Culture Organism: Pseudomonas aeruginosa,, : O:PSEUAE Isolated Performing Lab:see note LC - [facility] LB SEE REPORT - Car Sales Associate Id information not found for OBX-specific egg producer legend Reason For Referral Reason wound management sapna ointment please Diagnosis 1 Cellulitis (L03.90) Referral Organization [facility] Referring Provider First Name Maximo Referring Provider Last Name Radha Referring Provider Speciality Family [facility] maricruz Referred Provider [facility], [facility] Referred Provider Specialty Clinic or ou practice Referral Priority Routine Medications Medication SIG (Take, Route, Frequency, Duration) Notes Start Date End Date Status Methocarbamol 500 MG 1 tablet Oral every evening ; Duration: 30 days ActiveLancets 30G -as directed test daily dx E11.9 Daily; Duration: 90 days 3ActiveGlimepiride 2 MG1 tablet with breakfast or the first main meal of the day Orally Once a day; Duration: 30 daysActiveEliquis 5 MG1 tablet Orally Twice a day; Duration: 30 daysActiveAspirin 81 MGchew and swallow 1 tablet by mouth once daily; Duration: 30 daysActiveSimvastatin 20 MGtake 1 tablet by mouth every evening; Duration: 90ActiveRA Vitamin D-3 50 MCG (1999)take 1 capsule by mouth once daily; Duration: 90ActiveSpironolactone 50 MG1 tablet Orally once daily; Duration: 30 daysActivelevoFLOXacin 750 MG1 tablet Orally Once a day; Duration: 10 day(s)5ActiveDoxycycline Monohydrate 100 MG1 tablet Orally bid; Duration: 10 days5ActiveDicyclomine HCl 20 MGtake 1 tablet by mouth three times a day; Duration: 30ActiveCompression Stocking Below Knee 20- 30mmHg -wear daily DX I73.9; Duration: 30 daysActiveTrue Metrix Blood Glucose Test -USE 1 TEST STRIP TO TEST BLOOD SUGAR ONCE DAILY AND IF NEEDED; Duration: 90 daysActiveCleocin-T 1 %1 application Externally Twice a day5Active True Metrix Air Glucose Meter w/Deviceas directedActive Immunizations Vaccine Route Administration Date Status Comme nts Flu, Fluad (6259-2432) (63326) 65 yrs+, single-dose syringe IM Intramuscular 03/25/2023 Administered Flu, Fluad (26981) 65 yrs and older, single-dose syringe (5069-1006)IM Pblwbkdiyrjxq55/16/2024Administered Social History Tobacco Use: Social History Observation Description Date Details (start date - stop date) Former Smoker 06/15/1956 - 06/15/2001 Tobacco Use/Smoking Question Answer Notes Patient is a former smoker When did you start smoking?06/15/1956When did you stop smoking?06/15/2001How long has it been since you last smoked?> 10 yearsAlcohol Screen (Audit-C) Question Answer Notes Did you have a drink containing alcohol in the p ast year? No Erkbtx2FuzhfrrdcqdgffMalufwewCPBFT-V (Standard) Question Answer Notes Did you have a drink containing alcohol in the p ast year? No Lhgrqp9OcvviljzrnoyrbXzlwfiwf Problems Problem Type SNOMED Code ICD Code Onset Dates Problem Status W/U Status Risk Notes Problem Essential hypertension (62651047 ) Essential (primary) hypertension (I10) ActiveconfirmedProblemSkin tear (314151577)Skin tear (879.8)Activeconfirmed ProblemMalnutrition of mild degree ([place]: 75% to less than 90% of standard weight) (02525180)Mild protein-calorie malnutrition (E44.1)Activeconfirmed ProblemSciatica (64169625)Lumbago with sciatica, unspecified side (M54.40)Active confirmedProblemBradycardia (38563067)Bradycardia, unspecified (R00.1)Active confirmedProblemCardiac pacemaker in situ (469418611)Presence of cardiac pacemaker (Z95.0)ActiveconfirmedProblemPeripheral vascular disease (716190918) PVD (peripheral vascular disease) (I73.9)ActiveconfirmedProblemLeft ventricular hypertrophy (11904029)Left ventricular hypertrophy (I51.7)ActiveconfirmedProblem Urinary incontinence (975345754)Urinary incontinence (R32)ActiveconfirmedProblem Acute sinusitis (93585362)Acute sinusitis (J01.90)ActiveconfirmedProblemDiarrhea (32654348)Diarrhea (R19.7)ActiveconfirmedProblemStasis dermatitis (27702162) Stasis dermatitis (I83.10)ActiveconfirmedProblemCellulitis (055982599)Cellulitis (L03.90)ActiveconfirmedProblemIron deficiency anemia (58986588)Iron deficiency anemia (D50.9)ActiveconfirmedProblemDysarthria (7462773)Dysarthria (R47.1)Active confirmedProblemBowel incontinence (41507828)Fecal incontinence (R15.9)Active confirmedProblemIron deficiency anemia (44626008)Anemia, iron deficiency (D50.9) ActiveconfirmedProblemOsteoarthritis (212517938)Degenerative arthritis of hip (M16.9)ActiveconfirmedProblemCardiomegaly (8693057)Biatrial enlargement (I51.7) ActiveconfirmedProblemLumbosacral spondylosis without myelopathy (26337367) 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)ActiveconfirmedProblemAortic valve regurgitation (66955346)Aortic valve regurgitation (I35.1)Activeconfirmed ProblemPulmonary hypertension (64402614)Pulmonary hypertension (I27.20)Active confirmedProblemPermanent atrial fibrillation (259419550)Permanent atrial fibrillation (I48.21)ActiveconfirmedProblemDiabetes mellitus (43175033)Diabetes mellitus (E11.9)Activeconfirmed Vital Signs Heart Rate 86 /min 05/04/2024 Wnqsncmghod81.2 degrees Gujaqoghad34/20/2024lood pressure rmaameqrl52 mm Hg 04/24/20251744Inokpasd64 %05/04/20244047Xrussl25 in04/24/2025lood pressure gfywsjyw986 mm Hg04/24/20255472Dfflzx804 lbs106/24/2024BMI29.24 kg/m204/24/2025 Encounters Encounter Location Date Provider Diagnosis [facility] [address] [place] [address] 05/18/2024 Maximo Hoy Diabetes mellitus E11.9 ; Essential (primary) hypertension I10 ; Permanent atrial fibrillation I48.21 and Degenerative arthritis of lumbar spine M47.816 [facility] [address] [place] [address] 08/15/2024 Maximo Hoy Diabetes mellitus E11.9 ; Essential (primary) hypertension I10 ; Permanent atrial fibrillation I48.21 and Lumbago with sciatica, unspecified side M54.40 [facility] [address] [place] [address] 09/15/2024 Maximo Hoy Cellulitis L03.90 [facility] [address] [facility] [place] [address] 09/22/2024 Maximo Hoy Cellulitis L03.90 [facility] [address] [facility] [place] [address] 11/16/2024 Maximo Hoy Diabetes mellitus E11.9 ; Essential (primary) hypertension I10 ; Permanent atrial fibrillation I48.21 and Stasis dermatitis I83.10 [facility] [address] [facility] [place] [address] 02/16/2025 Maximo Hoy Diabetes mellitus E11.9 ; Permanent atrial fibrillation I48.21 ; Essential (primary) hypertension I10 and Lumbago with sciatica, unspecified side M54.40 [facility] [address] [facility] [place] [address] 04/21/2025 Maximo Hoy Cellulitis L03.90 ; Essential (primary) hypertension I10 ; PVD (peripheral vascular disease) I73.9 ; Iron deficiency anemia D50.9 ; Permanent atrial fibrillation I48.21 and Diabetes mellitus E11.9 [facility] [address] [facility] [place] [address] 04/24/2025 Maximo Hoy Cellulitis L03.90 [facility] [address] [address] 08/03/2024 Colleen Lopez [facility] [address]/20/2024eter HighlanderDiabetes mellitus E11.9BKit [facility] [facility] [place] [address]/12/2025Doug y [facility] [facility] [place] [address] 05/02/2024oug yEncpioneers memorial hospitaler for immunization Z23BVH [facility] [address] [place] [address]/oug HoyBKit [facility] [place] [address]/30/2024[facility] [facility] [place] [address] 05/19/2024ou[facility] [facility] [place] [address]/12/2024Doug [facility] [facility] [place] [address]/12/2024Do[facility] [facility] [place] [address]/04/2025Do[facility] [facility] [place] [address]/[facility] [place] [address]/ Maximo Garcia Assessments Encounter Date Diagnosis (ICD Code) Assessment Notes Treatment Notes Treatment Clinical Notes Section Notes 05/18/2024 Diabetes mellitus (ICD-10 - E11. 9) 05/18/2024Essential (primary) hypertension (ICD-10 - I10)05/04/2024iabetes mellitus (ICD-10 - E11.9)08/15/2024Diabetes mellitus (ICD-10 - E11.9)not great wiht diet08/15/2024Essential (primary) hypertension (ICD-10 - I10)11/16/2024 Diabetes mellitus (ICD-10 - E11.9)11/16/2024Essential (primary) hypertension (ICD-10 - I10)04/21/2025ellulitis (ICD-10 - L03.90)04/21/2025Essential (primary) hypertension (ICD-10 - I10)04/21/2025PVD (peripheral vascular disease) (ICD-10 - I73.9)04/21/2025Iron deficiency anemia (ICD-10 - D50.9)04/21/2025 Permanent atrial fibrillation (ICD-10 - I48.21)04/21/2025Diabetes mellitus (ICD- 10 - E11.9)04/24/2025ellulitis (ICD-10 - L03.90) stop cefdinir start levofloxacind keep cleocin cream and doxy dong surface cx 09/15/2024ellulitis (ICD-10 - L03.90)09/22/2024ellulitis (ICD-10 - L03.90) 02/16/2025Diabetes mellitus (ICD-10 - E11.9)quincy kkxnixvzh00/04/2025Permanent atrial fibrillation (ICD-10 - I48.21)tratge pycmplnjf02/18/2024Encounter for immunization (ICD-10 - Z23)02/16/2025Essential (primary) hypertension (ICD-10 - I10)stabel on meds11/16/2024Permanent atrial fibrillation (ICD-10 - I48.21) 08/15/2024Permanent atrial fibrillation (ICD-10 - I48.21)05/18/2024ermanent atrial fibrillation (ICD-10 - I48.21)05/18/2024egenerative arthritis of lumbar spine (ICD-10 - M47.816)08/15/2024Lumbago with sciatica, unspecified side (ICD- 10 - M54.40)11/16/2024Stasis dermatitis (ICD-10 - I83.10)02/16/2025Lumbago with sciatica, unspecified side (ICD-10 - M54.40)[facility] Plan Of Treatment Pending Test Test Name Order Date CULTURE, STOOL 04/17/2023 HEMOGLOBIN A1C (GLYCO) 04/21/2025 IRON, TOTAL 04/21/2025 LIPID PANEL (CHOL/TRIG/HDL/LDL) 04/21/20 25 VITAMIN D, 25 LEVEL (TOTAL) 04/21/2025 C DIFF TOX PCR STOOL 04/17/2023 PSA, TOTAL 11/19/2022 BNP 04/21/2025 CBC AUTO DIFF 11/19/2022 CULTURE WOUND 04/24/2025 GLYCOHEMOGLOBIN A1C 11/19/2022 LIPID PROFILE 11/19/2022 PROF 14(COMP METB) 11/19/2022 THYROID PROFILE WITH TSH 11/19/2022 CT HEAD WO CON 10/30/2023 US CAROTID ART JOSSE 10/30/2023 THYROID PANEL (T4/TSH/FREE T3) CMP (COMP MET CHRISTENSEN) w/eGFR CKD-EPI 2024 CBC WITH DIFF 04/21/2025 Next Appt Details Provider Name:Maximo Garcia, 09:15:00 AM, [address] [place], [address], Insurance Providers Payer Name Payer Address Payer Phone Subscriber Number Group Number Insured Name Patient Relationship to Insured Coverage Start Date Coverage End Date [place] [address] [place] [address] [id number] David Donohue - patient is the [id number] 2006[facility] [address] [place] [phone], SamuelSelf - patient is the [id number] [address]ID [address] OFFICE OF [place], [place] [id number], SamuelSelf - patient is the [id number] 1979 Medications Administered Medication Instructions Date of Administration Dosage Notes Ceftriaxone 1 gram 51 gKenalog-400 mg80 Medical (General) History Medical History History ICD Code Fecal incontinence R15.9 Urinary incontinence R32 Presence of cardiac pacemaker Z95.0 Cellulitis of both lower extremities 682 .6 Cellulitis of leg, right L03.115 Small bowel obstruction, partial K56.600 COVID-19 U07.1 Rectal bleeding K62.5 Cellulitis of left foot L03.116 Atrial fibrillation I48.91 Constipation K59.00 Hypertension I10 Diabetes mellitus E11.9 Dyspnea R06.00 Low back pain 724.5 Low back pain at multiple sites M54.50 Dyspnea R06.00 Glucose intolerance E74.39 Hyperlipidemia E78.5 COPD (chronic obstructive pulmonary dise ase) J44.9 Venous insufficiency I87.2 Surgical History Surgery Date(Month/Year) Cardiac Pacemaker Implant 08/2022 Cataract Extraction Hospitalization History Reason Date(Month/Year) Pacemaker implanted 08/2022 cellulitis 12/2018 Small bowel obstruction 05/2021
--- OUTSIDE RECORDS SUMMARY | 2025-04-27 14:57 | XMS_ITS | Patient Health Record ---
Author Organization [facility] vices Address [address], [place] [id number] Care Team Providers Care Long Winder Tender Name Role Phone Ryan Galvez Unavailable [phone] Allergies No Known Allergies Reason For Referral No Information Medications Medication SIG (Take, Route, Frequency, Duration) Notes Start Date End Date Status Spironolactone 25 MG TAKE 1 TABLET BY MOUTH EVER Y DAY Oral; Duration: 30 Days Not-TakingEliquis 5 MGOral; Duration: 30 DaysActiveTrue Metrix Blood Glucose Test -USE DIRECTED to test BLOOD SUGAR DAILY In Vitro; Duration: 50 Days ActiveVitamin DActiveGlimepiride 2 MGOral; Duration: 30 DaysActiveAspirin 5ActiveSimvastatin 20 MGOral; Duration: 30 DaysActive Social History Tobacco Use: Social History Observation Description Date Details (start date - stop date) Never Smoker NA - NA Sex Assigned At : Social History Observation Description Sex Assigned At Male Tobacco Control (Standard) Question Answer Notes Tobacco use: Nonsmoker Vital Signs Heart Rate 61 /min 01/23/2025 Height-cm175.26 cm01/23/2025lood pressure ukdsqzjqg51 mm Hg01/23/2025Weight-kg 90.72 kg01/23/20252043Gljboh16 in01/23/2025lood pressure dapvoezi974 mm Hg 01/23/20259514Ofqezh994 lbs01/23/2025BMI29.53 kg/m201/23/2025 Encounters Encounter Location Date Provider Diagnosis [facility] [address] [place] [phone] 10/27/2024 Ryan Galvez Encounter for scre ening for dental disorders Z13.84 ; Necrosis of pulp K04.1 ; Dental caries into dentine K02.62 and Encounter for dental examination and cleaning with abnormal findings Z01.21 [facility] [address] [place] [phone] 11/09/2024 Xavierkate Leonor Encounter for dent al examination and cleaning with abnormal findings Z01.21 [facility] [address] [place] [phone] 01/23/2025 Ryan Galvez Necrosis of pulp K 04.[address] [facility] [address], [place] [phone] 01/23/2025 Ryan Galvez Assessments Encounter Date Diagnosis (ICD Code) Assessment Notes Treatment Notes Treatment Clinical Notes Section Notes 10/27/2024 Encounter for screening for dent al disorders (ICD-10 - Z13.84) 11/09/2024Encounter for dental examination and cleaning with abnormal findings (ICD-10 - Z01.21)01/23/2025Necrosis of pulp (ICD-10 - K04.1)10/27/2024Necrosis of pulp (ICD-10 - K04.1)10/27/2024Dental caries into dentine (ICD-10 - K02.62) 10/27/2024Encounter for dental examination and cleaning with abnormal findings (ICD-10 - Z01.21) Plan Of Treatment Next Appt Details Provider Name:Ryan Galvez , 05/17/2025 10:15:00 AM, [address] [place] [address], [phone], Insurance Providers Payer Name Payer Address Payer Phone Subscriber Number Group Number Insured Name Patient Relationship to Insured Coverage Start Date Coverage End Date DMedicaid [address] [place], [place] [id number] David Donohue - patient is the [id number] 2024 Medical (General) History Medical History History ICD Code Pacemaker-2022 Catarach SurgeryVenous Artery DiseaseDiabetes
--- OUTSIDE RECORDS SUMMARY | 2025-04-27 14:57 | XMS_ITS | Clinical Summary ---
Author Organization [facility] Address [address] [place] [address] Care Team Providers Care Crown Presser Name Role Phone Vahid Garcia MD Primary Care Provider [phone] Allergies No known active allergies Medications MedicationSigDispense [...] breakfast.4Active Active Problems ProblemNoted DateDiagnosed DateCallus of toe7260Sgzcgubke10/01/2024Status post placement of cardiac uwcotzlfd48/20/5591Wlpldybxahx73/05/2023 Overview (06/19/2022): Added automatically from request for surgery [id number] Atrial yrgiprtmefqo32/22/2022hronic obstructive lung wkvgbdu7506/05/2022yspnea 06/05/20224959Aqjmiigtsnddwd56/22/2022Low back pain06/05/2022Longstanding persistent atrial xowpdngiivxk58/07/2022rimary mzafcagvjdsi86/07/2022eripheral venous llghwelxkfayq82/07/2022losed nondisplaced fracture of sixth cervical vertebra 03/03/2022Intermittent feaqlzmtaxuf67/29/2021PAD (peripheral artery disease) 03/23/2020 Encounters DateTypeDepartmentCare DniuOmjexwvfqqy54/03/2025 10:00 AM ESTOffice Visit [facility] [address] [place] [address] Jourdan Moore MD Permanent atrial fibrillation (CMS/HCC) (Primary Dx); Primary hypertension; Cardiac pacemaker in situ; Mixed hyperlipidemia; Peripheral venous loulfthodwmqp34/16/2025 11:45 AM EDTAncillary Procedure [facility] [address] [place] [address] Adjustment and management of cardiac inelnxwge37/16/2025Orders Only [facility] [address] [place] [address] Damian Martinez MD from Last 3 Months [...] relatives?Twice a week09/02/2022How often do you attend judaism or alevism services?More than 4 times per year09/02/2022o you belong to any clubs or organizations such as judaism groups, unions, fraternal or athletic emma ups, or school groups?Yes09/02/2022How often do you attend meetings of the clubs or organizations you belong to?More than 4 times per year09/02/2022re you , , , , never , or living with a partner? Bcirclzqz29/21/2023UDIT-CAnswerDate RecordedQ1: How often do you have a [...] housing, medical care, and heating?Not hard at all09/02/2022[facility] - Occupational Stress QuestionnaireAnswerDate [...] steady place to sleep or slept in [facility] (including now)?No 09/02/2022Hunger Vital SignAnswerDate RecordedWithin the past 12 months, you worried that your food would run out before you got the money to buymore.Never true09/02/2022Within the past 12 months, the food you bought just didn't last and you didn't have money to get more.Never true09/02/2022Sex and Gender InformationValueDate RecordedSex Assigned at FcrnuKphg32/17/2025 8:22 PM EDT Legal BxnRvlt5712/11/2021 10:46 PM EDTGender LbgyffezFgek74/17/2025 8:22 PM EDT Sexual OrientationChoose not to rrrsazjg16/17/2025 8:22 PM EDT Last Filed Vital Signs Vital SignReadingTime TakenCommentsBlood Pvsthxtc594/6811 10:09 AM EST Lfury905604/17/2025 10:09 AM XKBPsqncyxcnem02 ??C (98.6 ??F)09/02/2022 4:00 PM EDT Respiratory Fazj589409/02/2022 4:00 PM EDTOxygen Ekkljbnqdk98%04/17/2025 10:09 AM ESTInhaled Oxygen Concentration--Djpmia84.5 kg (195 lb)04/17/2025 10:09 AM EST Ibnnhs999.3 cm (5' 9 )04/17/2025 10:09 AM ESTBody Mass Index28.8106/17/2024 10:09 AM EST Plan of Treatment Health MaintenanceDue DateLast DoneCommentsDiabetes: Hemoglobin A1C05/ Medicare Annual Wellness (AWV)2Diabetes: Retinopathy Screening 2Depression Nktdsqyhj65/14/1954Diabetes: Urine Protein Screening 1960Zoster Vaccines (1 of 2)10/27/1991Fall Risk Jrumntydm97/14/2007 Pneumococcal Vaccine: 50+ Years (2 of 2 - PPSV23, PCV20, or PCV21)05/29/2017 04/03/2017COVID-19 Vaccine ( - season)/, 05/07/2021, 09/11/2020, Additional history existsInfluenza Vaccine (#1)/, 03/21/2020, 04/03/2017Adult Mingyaw13HIB VaccinesAged OutNo longer eligible based on patient's [...] 09/01/2022 by Damian Martinez MD at [facility] [id number] / [id number] / Pacer,Accolade Mri Sr - [id number] - [id number] Implanted:Qty: 1 on 09/01/2022 by Damian Martinez MD at [facility] [id number] / [id number] / Procedures Procedure NamePriorityDate/TimeAssociated DiagnosisCommentsCARDIAC DEVICE CHECK CHECK - FIUPOBKlaxjid37/17/2025 10:24 AM EDT Adjustment and management of cardiac pacemaker CARDIAC DEVICE CHECK - REMOTE - UZWRYSLEKEndpwah35/16/2025 12:00 AM EDTfrom Last 3 Months Results [...] Team MemberRelationshipSpecialtyStart DateEnd Date Vahid Garcia MD [address] [place] [address] [facility]04/18/22
--- OUTSIDE RECORDS SUMMARY | 2025-04-27 14:59 | XMS_ITS | CCD ---
Author Organization [facility] Care Team Providers Care Trim Mounter Name Role Phone ARPAN CAMACHO Unavailable Unavailable SAHRA GILMORE Unavailable Unavailable DIOGENES CASIANO Unavailable Unavailable DIOGENES REN Unavailable Unavailable LORI, RENDELL Unavailable Unavailable LORI, RENDELL Unavailable Unavailable JOSE ITALO (BULL WHEEL WORKER) Unavailable Unavailable LORI, RENDELL Unavailable Unavailable LORI, [...] BRAXTONY ., DR SHETTY Primary Care Unavailable OH ., DR SHETTY Admitting Unavailable HOY ., DR SHETTY Attending Unavailable HOY ., DR SHETTY Consulting Unavailable BRAXTONY ., DR SHETTY Primary Care Unavailable Diogenes Casiano MD Primary Care Provider [phone] HOME LUKE Attending Unavailable HOME LUKE Attending Unavailable DREAD WOLF Referring Unavailable DREAD WOLF Referring Unavailable DREAD WOLF Referring Unavailable DRAGAN PEPPER Attending Unavailable Medications Current Medications MedicationDrug Class(es)DatesSig (Normalized)Sig (Original)apixaban 5 mg oral tablet (5 sources)Factor Xa InhibitorStart: 39-47-4522fyvs 1 tablet by mouth once daily Apixaban (Eliquis) 5 mg tablet Active 5 MG PO Daily January 10, 2021 12:00am aspirin 81 mg delayed release oral tablet (4 sources)Platelet Aggregation Inhibitor, Nonsteroidal Anti-inflammatory Drug take 1 tablet by mouth once dailyaspirin 81 MG EC tablet Take 81 mg by mouth Daily Activebumetanide 1 mg oral tablet (1 source)Loop DiureticStart: 19-08-9013xrfc 1 tablet by mouth once daily Bumetanide 1 mg tablet Active 1 MG PO Daily January 10, 2021 12:00am cholecalciferol 0.025 mg oral capsule (4 sources)Vitamin Dtake 1 capsule by mouth once dailycholecalciferol (Vitamin D-3) 25 MCG (1000 UT) capsule Take 1,000 Units by mouth Daily Activeclotrimazole 10 mg/ml topical cream (1 source)Azole AntifungalStart: 64-53-6576Bwdceaihiyvv (Antifungal (Clotrimazole)) 1 % cream Active 1 APPLIC TOPICAL Twice daily 45 14 November 03, 2023 12:00amglimepiride 2 mg oral tablet (4 sources)Sulfonylureatake 1 tablet by mouth before mealtimeglimepiride (Amaryl) 2 MG tablet Take 2 mg by mouth in the morning. Take before meals. Activehydrocortisone acetate 25 mg rectal suppository (1 source)CorticosteroidStart: 25-42-7942Uinqbemapjokig Acetate 25 mg suppository Active 25 MG MI Twice daily January 10, 2021 12:00amhydrocortisone acetate 25 mg/ml / pramoxine hydrochloride 10 mg/ml topical cream (1 source)CorticosteroidStart: 53-79-2718Subdvibhhleswu-Pramoxine 2.5-1 % cream Active 1 APPLIC TOPICAL Twice daily January 10, 2021 12:00amhyoscyamine sulfate 0.125 mg sublingual tablet (1 source)Start: 84-19-0727vdpb 1 tablet by mouth once dailyHyoscyamine Sulfate 0.125 mg tablet, sublingual Active 0.125 MG PO Daily January 10, 2021 12:00am lisinopril 5 mg oral tablet (1 source)Angiotensin Converting Enzyme InhibitorStart: 54-21-5450zrsi 1 tablet by mouth once dailyLisinopril 5 mg tablet Active 5 MG PO Daily January 10, 2021 12:00ammetFORMIN hydrochloride 500 mg oral tablet (1 source)BiguanideStart: 42-91-0835qrcz 1 tablet by mouth twice dailyMetformin 500 mg tablet Active 500 MG PO Twice daily January 10, 2021 12:00ammetoprolol tartrate 50 mg oral tablet (1 source)beta-Adrenergic BlockerStart: 58-68-8462Jkqtvoepru Tartrate 50 mg tablet Active 25 MG PO Twice daily January 10, 2021 12:00amsimvastatin 20 mg oral tablet (5 sources)HMG-CoA Reductase InhibitorStart: 81-63-4425sozd 1 tablet by mouth once dailySimvastatin 20 mg tablet Active 20 MG PO Daily January 10, 2021 12:00am spironolactone 50 mg oral tablet (4 sources)Aldosterone Antagonisttake 1 tablet by mouth once dailyspironolactone (Aldactone) 50 MG tablet Take 50 mg by mouth Daily Active Problems Active Problems Problem ClassificationProblemDateDocumented DateEpisodic/ChronicAlcohol-related disorders (1 source)Alcohol dependence with withdrawal, unspecified; Translations: [ALCOHOL DEPENDENCE WITH WITHDRAWAL,UNSPECIFIED]Onset: 44-88-5384XyekimoAyhzixm dysrhythmias (1 source)Chronic atrial fibrillation; Translations: [CHRONIC ATRIAL FIBRILLATION]Onset: 33-13-8267BtvesuiGyensou dysrhythmias (4 sources)Bradycardia, unspecified; Translations: [BRADYCARDIA UNSPECIFIED] Onset: 58-20-6094XxjbwbekKdnqkje obstructive pulmonary disease and bronchiectasis (1 source)Chronic obstructive pulmonary disease, unspecified; Translations: [COPD UNSPECIFIED]Onset: 77-24-2403BepnhhzLhzfwpupzq disorders (4 sources)Presence of cardiac pacemaker; Translations: [Encounter for adjustment and management of other partof cardiac pacemaker]Onset: 03-01-2025 ChronicCongestive heart failure; nonhypertensive (1 source)Unspecified diastolic (congestive) heart failure; Translations: [UNSPECIFIED DIASTOLIC HEART FAILURE]Onset: 26-29-9678VxirttuIgpzrhaljx and other anemia (1 source)Anemia, unspecified; Translations: [ANEMIA UNSPECIFIED]Onset: 01-80-8741GwonoywvWajnikdb mellitus with complications (3 sources)Polyneuropathy due to type 2 diabetes mellitus; Translations: [Type 2 diabetes mellitus with diabetic polyneuropathy]46-00-1181CvkwrggZczddpyl mellitus without complication (1 source)Other abnormal glucose; Translations: [OTHER ABNORMAL GLUCOSE]Onset: 16-94-1737RojofvouFfoxsrggl of lipid metabolism (4 sources)Hyperlipidemia, unspecified; Translations: [Mixed hyperlipidemia] Onset: 17-73-6370WwtbrjyVpdgrjrty hypertension (7 sources)Essential (primary) hypertension; Translations: [ESSENTIAL (PRIMARY) HYPERTENSION]Onset: 19-87-9052SfbdpnwCkypogbd Injury - Fall (1 source)Other fall on same level, initial encounter; Translations: [OTHER FALL ON SAME LEVEL, INITIAL ENCOUNTER]Onset: 51-46-8355Arujoqywxgyt conditions of male genital organs (1 source)Balanitis; Translations: [Balanitis]49-85-3549BpsjqyrDjasjxt and fatigue (1 source)Other fatigue; Translations: [OTHER FATIGUE]Onset: 56-74-5841Qtdbcdbq Mycoses (3 sources)Onychomycosis; Translations: [Tinea unguium]74-24-4018Xjaxzjqh Nutritional deficiencies (1 source)Vitamin D deficiency, unspecified; Translations: [VITAMIN D DEFICIENCY UNSPECIFIED]Onset: 93-18-0759PuqmiswYragv diseases of veins and lymphatics (2 sources)Venous insufficiency (chronic) (peripheral); Translations: [Venous insufficiency (chronic) (peripheral)]Onset: 10-27-5315DntmebsfUbbsw lower respiratory disease (1 source)Other nonspecific abnormal finding of lung field; Translations: [Other nonspecific abnormal findingof lung field]Onset: 17-31-0814JpjehleuChfhd lower respiratory disease (1 source)Dyspnea, unspecified; Translations: [DYSPNEA UNSPECIFIED]Onset: 67-13-1513QqgmpuuvGttow non-traumatic joint disorders (1 source)Pain in unspecified joint; Translations: [PAIN IN UNSPECIFIED JOINT] Onset: 02-90-8041BaldgywiZtypp screening for suspected conditions (not mental disorders or infectious disease) (1 source)Encounter for screening for malignant neoplasm of prostate; Translations: [ENC SCREEN MALIG NEOPLASM PROSTATE]Onset: 05-25-0991EreljvlfOwspp skin disorders (1 source)Callosity on toe; Translations: [Corns and callosities]10-03-2024 EpisodicOther skin disorders (3 sources)Dystrophia unguium; Translations: [Nail dystrophy]49-17-5362Evmkfhoh Other skin disorders (3 sources)Callosity; Translations: [Corns and callosities]06-11-4524Syxdqspd Other upper respiratory infections (1 source)Acute sinusitis, unspecified; Translations: [ACUTE SINUSITIS UNSPECIFIED]Onset: 78-65-3361LzvxlrnoRmsuvhikot and visceral atherosclerosis (1 source)Peripheral vascular disease, unspecified; Translations: [PERIPHERAL VASCULAR DISEASE UNS]Onset: 45-13-5867TovlpopCbloyvfj; pneumothorax; pulmonary collapse (5 sources)Pleural effusion, not elsewhere classified; Translations: [Pleural plaque without asbestos]Onset: 69-47-5309WrfryshoFqne and subcutaneous tissue infections (2 sources)Paronychia of toe of left foot; Translations: [Cellulitis of left toe]57-38-3356ZggoccgcHrykjctjwief (2 sources)Unknown / UNK(Unknown)Onset: 83-70-4938Crixoruhdpxc (4 sources)CONTACT W/AND (SUSP) EXPOS COVID-19; Translations: [CONTACT W/AND (SUSP) EXPOS COVID-19]Onset: 37-49-6446Rapetuwhurei (2 sources)Permanent atrial fibrillation; Translations: [Permanent atrial fibrillation]Onset: 06-05-2022 Past or Other Problems Problem ClassificationProblemDateDocumented DateEpisodic/ChronicE Codes: Fall (1 source)Unspecified fall, initial encounter; Translations: [UNSPECIFIED FALL INITIAL ENCOUNTER]Onset: 16-23-4053DpyxokvxPvpoemynen obstruction without hernia (4 sources)Partial intestinal obstruction, unspecified as to cause; Translations: [PART INTESTINAL OBST UNS ASTO CAU]Onset: 02-08-7943Ttmcivyy Nonmalignant breast conditions (4 sources)Unspecified lump in right breast, subareolar; Translations: [UNSPEC LUMP IN RT BREAST SUBAREOLAR]Onset: 16-50-1807QouvxmbbJgiv wounds of head; neck; and trunk (1 source)Laceration without foreign body of scalp, initial encounter; Translations: [LACERATION W/O FB SCALPINITIAL ENC]Onset: 72-08-1581JthffxkbAldht aftercare (1 source)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 helper (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; Translations: [RESTAURANT CREW (CURRENT) USE OF ANTICOAGULANTS]Onset: 03-05-1008JhmcwbkoUfqay aftercare (1 source)USP (current) use of oral hypoglycemic drugs; Translations: [RESTAURANT CREW USE ORAL HYPOGLYCEMIC DX]Onset: 08-15-3316XvvwvjzqVfcse aftercare (1 source)Other terminal supervisor (current) drug therapy; Translations: [OTH PENITENTIARY CURRENT DRUG THERAPY]Onset: 12-76-7590FlgnqjwvYehyq connective tissue disease (3 sources)Rhabdomyolysis; Translations: [RHABDOMYOLYSIS]Onset: 06-13-2017 EpisodicOther fractures (1 source)Unspecified displaced fracture of sixth cervical vertebra, initial encounter for closed fracture; Translations: [UNS DSPL FX 6TH CV INIT JAY FX] Onset: 62-88-3470UwyylwgnSclks injuries and conditions due to external causes (3 sources)Unspecified injury of head, initial encounter; Translations: [UNSPECIFIED INJURY HEAD INITIAL ENC]Onset: 67-79-3137AxbnrzzbCpybp upper respiratory disease (1 source)Other diseases of bronchus, not elsewhere classified; Translations: [Other diseases of bronchus, not elsewhere classified]Onset: 37-90-0746Iukckykd Screening or history of mental health and substance abuse (2 sources)Personal history of nicotine dependence; Translations: [PERSONAL HISTORY OF NICOTINE DEPENDENCE]Onset: 57-19-3733EzyrkwryZloxijyfwdh; intervertebral disc disorders; other back problems (1 source)Dorsalgia, unspecified; Translations: [DORSALGIA, UNSPECIFIED]Onset: 74-85-3307OvxgumosWtarbbfzaul injury; contusion (1 source)Contusion of scalp, initial encounter; Translations: [CONTUSION SCALP INITIAL ENCOUNTER]Onset: 92-15-8211WsofarkzTedruxpiosiw (1 source)CONTACT W/AND (SUSP) EXPOS COVID-19; Translations: [CONTACT W/AND (SUSP) EXPOS COVID-19]Onset: 08-20-2022 Results Test NameValueInterpretationReference RangeFacilityOffice Visiton 04-17-2025 Follow-up [id number] Desean Landry Jr. 1940 M Date Provider Department Center 04/17/2025 DRAGAN BALDWIN CARD [facility] Family History Problem Relation Age of Onset Cancer Mother Diabetes Brother Other Brother Family Status - Relation Status Age at Mother Brother Level of Service:39704 [place] OFFICE/OUTPATIENT ESTABLISHED MOD [facility] Only[facility] 35-21-3723Pbtfjh [id number] Desean Landry Jr. 1940 M Date Provider Department Center 02/28/2025 [facility]READ [facility] Family History Problem Relation Age of Onset Cancer Mother Family Status - Relation Status Age at MotherNormalUniversity University Hospitals Beachwood Medical CenterCBC AUTO DIFFon 97-54-4493ERRK # 0.1 103/ulNormal0.0-0.1[facility] HospitalComment on above:Performed By: #### CBC #### [facility] [address] [address] [address] Artem Choesophils/100 WBC (Bld)1.0 %Normal0.2-2.0[facility] Comment on above:Performed By: #### CBC #### [facility] [address] [address] [address] Artem López #0.2 103/ulNormal0.0-0.7The [facility] HospitalComment on above: Performed By: #### CBC #### [facility] [address] [address] [address] Artem Daveosinophils/100 WBC (Bld)2.0 %Normal0.9-7.0[facility] Comment on above:Performed By: #### CBC #### [facility] [address] [place] [address] Dr. Artem Daverythrocyte distribution width (RBC) [Ratio]13.1 %Glzxlc45.0-15.0 [facility] HospitalComment on above:Performed By: #### CBC #### [facility] [address] [place] [address] Dr. Artem RojasHematocrit (Bld) [Volume fraction]43.8 %Qzhmto57.0-54.0The [facility] HospitalComment on above:Performed By: #### CBC #### [facility] [address] [place] [address] Dr. Artem RojasHemoglobin (Bld) [Mass/Vol]14.5 g/jSQvbxhn09.0-18.0The [facility] HospitalComment on above:Performed By: #### CBC #### [facility] [address] [place] [address] Dr. Artem De Oliveira #0.07 10e3/ulCritically high0.00-0.03[facility] Comment on above:Performed By: #### CBC #### [facility] [address] [place] [address] Dr. Artem De Oliveira %0.8 %Critically high0.0-0.5The [facility] HospitalComment on above:Performed By: #### CBC #### [facility] [address] [place] [address] Dr. Artem MillsH #1.8 103/ulNormal1.2-3.8The [facility] HospitalComment on above:Performed By: #### CBC #### [facility] [address] [place] [address] Dr. Artem Avalosmphocytes/100 WBC (Bld)20.0 %Critically low20.5-60.0The [facility] HospitalComment on above:Performed By: #### CBC #### [facility] [address] [place] [address] Dr. Artem Ruelas DIFF REQNONormalThe [facility] HospitalComment on above: Performed By: #### CBC #### [facility] [address] [place] [address] Dr. Artem Vega (RBC) [Entitic mass]30.0 zwPrgcij25.9-34.0The [facility] HospitalComment on above:Performed By: #### CBC #### [facility] [address] [place] [address] Dr. Artem Vega (RBC) [Mass/Vol]33.1 g/zULnyfuc25.9-35.2The [facility] HospitalComment on above:Performed By: #### CBC #### [facility] [address] [place] [address] Dr. Artem Vega (RBC) [Entitic vol]90.7 mUCswbgn76.0-94.0The [facility] HospitalComment on above:Performed By: #### CBC #### [facility] [address] [place] [address] Dr. Artem Bowen #0.8 103/ulNormal0.3-0.8The [facility] HospitalComment on above:Performed By: #### CBC #### [facility] [address] [place] [address] Dr. Artem Cooleyocytes/100 WBC (Bld)8.7 %Normal1.7-12.0[facility] Comment on above:Performed By: #### CBC #### [facility] [address] [place] [address] Dr. Artem Farrell #6.1 103/ulNormal1.4-6.5The [facility] HospitalComment on above:Performed By: #### CBC #### [facility] [address] [place] [address] Dr. Artem Dossutrophils/100 WBC (Bld)67.5 %Kadaux11.0-75.0The [facility] HospitalComment on above:Performed By: #### CBC #### [facility] [address] [place] [address] Dr. Artem RojasPlatelet mean volume (Bld) [Entitic vol]9.7 fLNormal9.5-13.5The [facility] HospitalComment on above:Performed By: #### CBC #### [facility] [address] [place] [address] Dr. Artem RojasPLT333 103/liYzcvge127-055Lxf [facility] HospitalComment on above: Performed By: #### CBC #### [facility] [address] [place] [address] Dr. Artem RojasRBC4.83 106/ulNormal4.70-6.10The [facility] HospitalComment on above:Performed By: #### CBC #### [facility] [address] [place] [address] Dr. Artem RojasWBC9.0 103/ulNormal4.0-11.0The [facility] HospitalComment on above: Performed By: #### CBC #### [facility] [address] [place] [address] Dr. Artem RojasPROF CHEM 8 (BAS METB)on 72-12-2794Ucxdz gap [Moles/Vol]9.4 mmol/LNormalBluffton HospitalComment on above:Performed By: #### PTT, PT #### [facility] [address] [place] [address] Dr. Artem RojasCalcium [Mass/Vol]9.4 mg/dLNormal8.5-10.1[facility] Comment on above:Performed By: #### PTT, PT #### [facility] [address] [place] [address] Dr. Artem RojasChloride [Moles/Vol]105 mmol/KXnwbeg09-480Ypc [facility] Comment on above:Performed By: #### PTT, PT #### [facility] [address] [place] [address] Dr. Artem RojasCO2 [Moles/Vol]29.3 mmol/YWylkkb13.0-32.0[facility] Comment on above:Performed By: #### PTT, PT #### [facility] [address] [address] [address] Artem RojasCreatinine [Mass/Vol]1.06 mg/dLNormal0.70-1.30The [facility] Hospitalment on above:Performed By: #### PTT, PT #### [facility] [address] [address] [address] Artem DaveGFR-AF KITTITIAN>60Normal>=60The [facility] HospitalComment on above:Performed By: #### PTT, PT #### [facility] [address] [address] [address] Artem DaveGFR-NON AF KITTITIAN>60Normal>=60The [facility] HospitalComment on above:Performed By: #### PTT, PT #### [facility] [address] [address] [address] Artem RojasGlucose [Mass/Vol]125 mg/dLCritically rpci75-320She [facility] Hospitalment on above:Performed By: #### PTT, PT #### [facility] [address] [address] [address] Artem RojasPotassium [Moles/Vol]4.3 mmol/LNormal3.5-5.1[facility] Comment on above:Performed By: #### PTT, PT #### [facility] [address] [address] [address] Artem RojasSodium [Moles/Vol]139 mmol/BZssnjp027-583Cim [facility] Comment on above:Performed By: #### PTT, PT #### [facility] [address] [address] [address] Artem RojasUrea nitrogen [Mass/Vol]20.0 mg/dLCritically high7.0-18.0The [facility] HospitalComment on above:Performed By: #### PTT, PT #### [facility] [address] [address] [address] Artem RojasUrea nitrogen/Creatinine [Mass ratio]18.9 mg/mgNormalThe [facility] HospitalComment on above:Performed By: #### PTT, PT #### [facility] [address] [place] [address] Dr. Artem RojasCovid-19 PCR ([facility])on 64-45-9775XMRV-CoV-2 (COVID-19) RNA MONICA+probe Ql (Unsp spec)Not detectedNormalNOT DETECTEDThe [facility] Comment on above:Result Comment: When diagnostic testing [...] for this test is supported by the [place] of Health and Human Service's declaration that [...] be used).Performed By: #### PTT, PT #### [facility] [address] [place] [address] Dr. Artem Yañez A AND B AGon 19-95-6158TONDHSRAXGDYM BELOWThe [facility] HospitalComment on above:Result Comment: Negative for Flu A protein angiten. Infection due to Flu A cannot be ruled out. FluA angiten in the sample may be below the detection limit of the test.Performed By: #### PTT, PT #### [facility] [address] [place] [address] Dr. Artem RiveraUBNEGTIERNEY [facility] on above: Result Comment: Negative for Flu B protein antigen. Infection due to Flu B cannot be ruled out. FluB antigen in the sample may be below the detection limit of the test.Performed By: #### PTT, PT #### [facility] [address] [place] [address] Dr. Artem Damon AGNegativeNormalNEGATIVE SEE COMMENTThe [facility] HospitalComment on above:Performed By: #### PTT, PT #### [facility] [address] [place] [address] Dr. Artem Alexander AGNegativeNormalNEGATIVE SEE COMMENTThe [facility] HospitalComment on above:Performed By: #### PTT, PT #### [facility] [address] [place] [address] Dr. Artem RojasINSULINon 30-21-7895Lhqsedd95.3 uIU/mLNormal2.6-24.9The [facility] HospitalComment on above:Performed By: #### PTT, PT #### [facility] [address] [place] [address] Dr. Artem Erwin 22-49-5530Qlehimpmcpo peptide B (Bld) [Mass/Vol]1826.0 pg/mLCritically high<=1,800.0The [facility] HospitalComment on above:Performed By: #### CMP, BNP, URIC, TSH, T7, LIPID #### [facility] [address] [place] [address] Dr. Artem Cage AUTO DIFFon 60-73-9393BQWO #0.1 103/ulNormal0.0-0.1The [facility] HospitalComment on above:Performed By: #### PTT, PT #### [facility] [address] [place] [address] Dr. Artem RojasBasophils/100 WBC (Bld)1.0 %Normal0.2-2.0[facility] Comment on above:Performed By: #### PTT, PT #### [facility] [address] [place] [address] Dr. Artem López #0.2 103/ulNormal0.0-0.7The [facility] HospitalComveterans affairs [facility] on above: Performed By: #### PTT, PT #### [facility] [address] [place] [address] Dr. Artem Daveosinophils/100 WBC (Bld)2.4 %Normal0.9-7.0[facility] Comment on above:Performed By: #### PTT, PT #### [facility] [address] [place] [address] Dr. Artem Daverythrocyte distribution width (RBC) [Ratio]13.8 %Mlasko64.0-15.0 The [facility] HospitalComment on above:Performed By: #### PTT, PT #### [facility] [address] [place] [address] Dr. Artem RojasHematocrit (Bld) [Volume fraction]44.1 %Iwworc20.0-54.0The [facility] HospitalComment on above:Performed By: #### PTT, PT #### [facility] [address] [place] [address] Dr. Artem RojasHemoglobin (Bld) [Mass/Vol]14.5 g/mPToyhzt18.0-18.0The [facility] HospitalComment on above:Performed By: #### PTT, PT #### [facility] [address] [place] [address] Dr. Artem De Oliveira #0.02 10e3/ulNormal0.00-0.03The [facility] HospitalComment on above:Performed By: #### PTT, PT #### [facility] [address] [place] [address] Dr. Artem De Oliveira %0.2 %Normal0.0-0.5The [facility] HospitalComment on above: Performed By: #### PTT, PT #### [facility] [address] [place] [address] Dr. Artem MillsH #2.1 103/ulNormal1.2-3.8The [facility] HospitalComment on above:Performed By: #### PTT, PT #### [facility] [address] [place] [address] Dr. Artem Avalosmphocytes/100 WBC (Bld)24.3 %Drthdq28.5-60.0The [facility] HospitalComment on above:Performed By: #### PTT, PT #### [facility] [address] [place] [address] Dr. Artem Ruelas DIFF REQNONormalThe [facility] HospitalComment on above: Performed By: #### PTT, PT #### [facility] [address] [place] [address] Dr. Artem Vega (RBC) [Entitic mass]30.3 feForcoy36.9-34.0The [facility] HospitalComment on above:Performed By: #### PTT, PT #### [facility] [address] [place] [address] Dr. Artem Vega (RBC) [Mass/Vol]32.9 g/dAJmjvuv41.9-35.2The [facility] HospitalComment on above:Performed By: #### PTT, PT #### [facility] [address] [place] [address] Dr. Artem Vega (RBC) [Entitic vol]92.1 fMLokvvu47.0-94.0The [facility] HospitalComment on above:Performed By: #### PTT, PT #### [facility] [address] [place] [address] Dr. Artem Bowen #0.8 103/ulNormal0.3-0.8The [facility] HospitalComment on above:Performed By: #### PTT, PT #### [facility] [address] [place] [address] Dr. Artem Cooleyocytes/100 WBC (Bld)9.0 %Normal1.7-12.0[facility] Comment on above:Performed By: #### PTT, PT #### [facility] [address] [place] [address] Dr. Artem Farrell #5.6 103/ulNormal1.4-6.5The [facility] County HospitalComment on above:Performed By: #### PTT, PT #### [facility] [address] [place] [address] Dr. Artem Dossutrophils/100 WBC (Bld)63.1 %Nlumup87.0-75.0The [facility] HospitalComment on above:Performed By: #### PTT, PT #### [facility] [address] [place] [address] Dr. Artem Linderlet mean volume (Bld) [Entitic vol]10.0 fLNormal9.5-13.5The [facility] HospitalComment on above:Performed By: #### PTT, PT #### [facility] [address] [place] [address] Dr. Artem RojasPLT193 103/zxWrpkhc710-563Zqv [facility] HospitalComment on above: Performed By: #### PTT, PT #### [facility] [address] [place] [address] Dr. Artem RojasRBC4.79 106/ulNormal4.70-6.10The [facility] HospitalComment on above:Performed By: #### PTT, PT #### [facility] [address] [place] [address] Dr. Artem RojasWBC8.8 103/ulNormal4.0-11.0The [facility] HospitalComment on above: Performed By: #### PTT, PT #### [facility] [address] [place] [address] Dr. Artem RojasFRERIK THYROXINE INDEX T7on 37-33-8178AEM4.91Ewaqff6.30-4.50The [facility] HospitalComment on above:Performed By: #### CMP, BNP, URIC, TSH, T7, LIPID #### [facility] [address] [place] [address] Dr. Artem RojasT3U35.0 %Pjagxr74.0-40.0The [facility] HospitalComment on above: Performed By: #### CMP, BNP, URIC, TSH, T7, LIPID #### [facility] [address] [place] [address] Dr. Artem RojasT4 [Mass/Vol]7.20 ug/dLNormal4.50-12.10The [facility] on above:Performed By: #### CMP, BNP, URIC, TSH, T7, LIPID #### [facility] [address] [address] [address] Artem RojasGLYCOHEMOGLOBIN A1Con [id number] RECOMMENDATIONSEE BELOWPremier HealthComveterans affairs medical center on above:Result Comment: ADA RECOMMENDED LIMIT 4.0 - 6.0 ADA THERAPEUTIC TARGET < 7.0 ACTION SUGGESTED > 7.0Performed By: #### A1C #### [facility] [address] [address] [address] Artem RojasGlucose [Mass/Vol]128 mg/dLNoNationwide Children's HospitalComveterans affairs medical center on above:Performed By: #### A1C #### [facility] [address] [place] [address] Dr. Artem RojasHbA1c (Bld) [Mass fraction]6.1 %Normal4.5-6.2[facility] HospitalComv[facility] affairs medical center on above:Performed By: #### A1C #### [facility] [address] [place] [address] Dr. Artem RojasLIPID PROFILEon [id number]-HDL RATIO NORMSEE [facility] SystemComveterans affairs medical center on above:Result Comment: 3.3 - 4.4 LOW RISK 4.4 - 7.1 AVERAGE RISK 7.1 - 11.0 MODERATE RISK >11.0 HIGH RISKPerformed By: #### CMP, BNP, URIC, TSH, T7, LIPID #### [facility] [address] [place] [address] Dr. Artem RojasCholesterol [Mass/Vol]157 mg/dLNormal<=200The [facility] Comment on above:Performed By: #### CMP, BNP, URIC, TSH, T7, LIPID #### [facility] [address] [place] [address] Dr. Artem RojasCholesterol in HDL [Mass/Vol]51 mg/lPLtxvib00-14Bxa [facility] on above:Performed By: #### CMP, BNP, URIC, TSH, T7, LIPID #### [facility] [address] [place] [address] Dr. Artem RojasCholesterol in LDL [Mass/Vol]86.6 mg/dLNormalThe [facility] HospitalComment on above:Performed By: #### CMP, BNP, URIC, TSH, T7, LIPID #### [facility] [address] [place] [address] Dr. Artem RojasCholestercarmen.total/Cholesterol in HDL [Mass ratio]3.1 {ratio} NormalThe [facility] HospitalComment on above:Performed By: #### CMP, BNP, URIC, TSH, T7, LIPID #### [facility] [address] [place] [address] Dr. Artem Stacy NORMAL> or = 60 mg/dl - LOW CARDIOVASCULAR RISK <40 mg/dl - HIGH CARDIOVASCULAR RISKThe [facility] HospitalComment on above:Performed By: #### CMP, BNP, URIC, TSH, T7, LIPID #### [facility] [address] [place] [address] Dr. Artem Mensah CALC NORMALSEE BELOWThe [facility]vue HospitalComment on above:Result Comment: <100 mg/dl OPTIMAL 100 - 129 mg/dl NEAR OR ABOVE OPTIMAL 130 - 159 mg/dl BORDERLINE HIGH 160 - 189 mg/dl HIGH >190 mg/dl VERY HIGH Performed By: #### CMP, BNP, URIC, TSH, T7, LIPID #### [facility] [address] [place] [address] Dr. Artem RojasTriglyceride [Mass/Vol]97 mg/dLNormal<=150The [facility] Comment on above:Performed By: #### CMP, BNP, URIC, TSH, T7, LIPID #### [facility] [address] [place] [address] Dr. Artem BhattiLDL CALC19.4 mg/dLNoNationwide Children's HospitalComment on above: Performed By: #### CMP, BNP, URIC, TSH, T7, LIPID #### [facility] [address] [place] [address] Dr. Artem Oseguera 14(COMP METB)on [id number] [Mass/Vol]3.5 g/dLNormal 3.4-5.0The [facility] HospitalComment on above:Performed By: #### CMP, BNP, URIC, TSH, T7, LIPID #### [facility] [address] [place] [address] Dr. Artem RojasAlbumin/Globulin [Mass ratio]1.1 {ratio}NormalThe [facility] on above:Performed By: #### CMP, BNP, URIC, TSH, T7, LIPID #### [facility] [address] [place] [address] Dr. Artem Hernandez [Catalytic activity/Vol]70 U/AMrjvib47-634Ynq [facility] HospitalComveterans affairs medical center on above:Performed By: #### CMP, BNP, URIC, TSH, T7, LIPID #### [facility] [address] [place] [address] Dr. Artem Coulter [Catalytic activity/Vol]19 U/UXxmtkc62-52Opf [facility] Hospitalment on above:Performed By: #### CMP, BNP, URIC, TSH, T7, LIPID #### [facility] [address] [place] [address] Dr. Artem Diallo gap [Moles/Vol]11.7 mmol/LNormalThe [facility] Comment on above:Performed By: #### CMP, BNP, URIC, TSH, T7, LIPID #### [facility] [address] [place] [address] Dr. Artem Aponte [Catalytic activity/Vol]18 U/OJvlaro08-38Qyv [facility] Hospitalment on above:Performed By: #### CMP, BNP, URIC, TSH, T7, LIPID #### [facility] [address] [place] [address] Dr. Artem RojasBilirubin [Mass/Vol]0.5 mg/dLNormal0.2-1.0The [facility] Comment on above:Performed By: #### CMP, BNP, URIC, TSH, T7, LIPID #### [facility] [address] [place] [address] Dr. Artem RojasCalcium [Mass/Vol]9.3 mg/dLNormal8.5-10.1[facility] Comment on above:Performed By: #### CMP, BNP, URIC, TSH, T7, LIPID #### [facility] [address] [address] [address] Artem RojasChloride [Moles/Vol]105 mmol/VPbfqqs34-017Tvt [facility] Comment on above:Performed By: #### CMP, BNP, URIC, TSH, T7, LIPID #### [facility] [address] [place] [address] Dr. Artem RojasCO2 [Moles/Vol]29.7 mmol/LGaiaaf01.0-32.0The [facility] Comment on above:Performed By: #### CMP, BNP, URIC, TSH, T7, LIPID #### [facility] [address] [place] [address] Dr. Artem RojasCreatinine [Mass/Vol]0.87 mg/dLNormal0.70-1.30The [facility] HospitalComment on above:Performed By: #### CMP, BNP, URIC, TSH, T7, LIPID #### [facility] [address] [place] [address] Dr. Artem DaveGFR-AF KITTITIAN>60Normal>=60The [facility] HospitalComment on above:Performed By: #### CMP, BNP, URIC, TSH, T7, LIPID #### [facility] [address] [place] [address] Dr. Artem DaveGFR-NON AF KITTITIAN>60Normal>=60The [facility] HospitalComment on above:Performed By: #### CMP, BNP, URIC, TSH, T7, LIPID #### [facility] [address] [place] [address] Dr. Artem RojasGlobulin (S) [Mass/Vol]3.3 g/dLNormalThe [facility] HospitalComment on above:Performed By: #### CMP, BNP, URIC, TSH, T7, LIPID #### [facility] [address] [place] [address] Dr. Artem RojasGlucose [Mass/Vol]118 mg/dLCritically inbg64-816Oef [facility] HospitalComment on above:Performed By: #### CMP, BNP, URIC, TSH, T7, LIPID #### [facility] [address] [place] [address] Dr. Artem RojasPotassium [Moles/Vol]4.4 mmol/LNormal3.5-5.1The [facility] Comment on above:Performed By: #### CMP, BNP, URIC, TSH, T7, LIPID #### [facility] [address] [place] [address] Dr. Artem RojasProtein [Mass/Vol]6.8 g/dLNormal6.4-8.2The [facility] Comment on above:Performed By: #### CMP, BNP, URIC, TSH, T7, LIPID #### [facility] [address] [place] [address] Dr. Artem RojasSodium [Moles/Vol]142 mmol/IOazuxt850-236Stq [facility] Comment on above:Performed By: #### CMP, BNP, URIC, TSH, T7, LIPID #### [facility] [address] [place] [address] Dr. Artem RojasUrea nitrogen [Mass/Vol]19.0 mg/dLCritically high7.0-18.0The [facility] HospitalComment on above:Performed By: #### CMP, BNP, URIC, TSH, T7, LIPID #### [facility] [address] [place] [address] Dr. Artem Church nitrogen/Creatinine [Mass ratio]21.8 mg/mgNormalThe [facility] HospitalComment on above:Performed By: #### CMP, BNP, URIC, TSH, T7, LIPID #### [facility] [address] [place] [address] Dr. Artem Adams [id number] uIU/mLNormal0.358-3.740[facility] HospitalComment on above:Performed By: #### CMP, BNP, URIC, TSH, T7, LIPID #### [facility] [address] [place] [address] Dr. Artem RojasURIC ACID SERUMon [id number] [Mass/Vol]5.8 mg/dLNormal 3.5-7.2The [facility] HospitalComment on above:Performed By: #### CMP, BNP, URIC, TSH, T7, LIPID #### [facility] [address] [place] [address] Dr. Artem RojasVITAMIN D 25 OHon [id number] D 25-OH65.5 ng/mLNormalBluffton HospitalComment on above:Performed By: #### PTT, PT #### [facility] [address] [place] [address] Dr. Artem Bailey D RANGESSEE BELOWThe [facility] HospitalComment on above: Result Comment: <20 ng/mL Vit D deficient 20 - <30 ng/mL Vit D insufficient 30 - 100 ng/mL Vit D sufficient >100 ng/mL Potential ToxicityPerformed By: #### PTT, PT #### [facility] [address] [place] [address] Dr. Artem RosarioC AUTO DIFFon [id number] #0.1 103/ulNormal0.0-0.1The [facility] HospitalComment on above:Performed By: #### PTT, PT #### [facility] [address] [place] [address] Dr. Artem RojasBasophils/100 WBC (Bld)0.5 %Normal0.2-2.0[facility] Comment on above:Performed By: #### PTT, PT #### [facility] [address] [place] [address] Dr. Artem López #0.0 103/ulNormal0.0-0.7The [facility] HospitalComment on above: Performed By: #### PTT, PT #### [facility] [address] [place] [address] Dr. Artem Daveosinophils/100 WBC (Bld)0.1 %Critically low0.9-7.0The [facility] HospitalComment on above:Performed By: #### PTT, PT #### [facility] [address] [place] [address] Dr. Artem Daverythrocyte distribution width (RBC) [Ratio]12.9 %Vxjinw32.0-15.0 The [facility] HospitalComment on above:Performed By: #### PTT, PT #### [facility] [address] [place] [address] Dr. Artem RojasHematocrit (Bld) [Volume fraction]39.7 %Critically low42.0-54.0 The [facility] HospitalComment on above:Performed By: #### PTT, PT #### [facility] [address] [place] [address] Dr. Artem RojasHemoglobin (Bld) [Mass/Vol]13.1 g/dLCritically low14.0-18.0[facility] HospitalComment on above:Performed By: #### PTT, PT #### [facility] [address] [place] [address] Dr. Artem De Oliveira #0.05 10e3/ulCritically high0.00-0.03The [facility] Comment on above:Performed By: #### PTT, PT #### [facility] [address] [place] [address] Dr. Artem De Oliveira %0.4 %Normal0.0-0.5The [facility] HospitalComment on above: Performed By: #### PTT, PT #### [facility] [address] [place] [address] Dr. Artem Peters #0.8 103/ulCritically low1.2-3.8The [facility] Comment on above:Performed By: #### PTT, PT #### [facility] [address] [place] [address] Dr. Artem Millshocytes/100 WBC (Bld)5.7 %Critically low20.5-60.0[facility] HospitalComment on above:Performed By: #### PTT, PT #### [facility] [address] [place] [address] Dr. Artem WolfUAL DIFF REQNONormalThe [facility] HospitalComment on above: Performed By: #### PTT, PT #### [facility] [address] [place] [address] Dr. Atrem Perrin (RBC) [Entitic mass]31.5 kwTiyzqr96.9-34.0The [facility] HospitalComment on above:Performed By: #### PTT, PT #### [facility] [address] [place] [address] Dr. Artem Vega (RBC) [Mass/Vol]33.0 g/eGHtbuit69.9-35.2The [facility] HospitalComment on above:Performed By: #### PTT, PT #### [facility] [address] [place] [address] Dr. Artem Vega (RBC) [Entitic vol]95.4 fLCritically high80.0-94.0The [facility] HospitalComment on above:Performed By: #### PTT, PT #### [facility] [address] [place] [address] Dr. Artem Bowen #1.0 103/ulCritically high0.3-0.8The [facility] Comment on above:Performed By: #### PTT, PT #### [facility] [address] [place] [address] Dr. Artem Cooleyocytes/100 WBC (Bld)7.4 %Normal1.7-12.0[facility] Comment on above:Performed By: #### PTT, PT #### [facility] [address] [place] [address] Dr. Artem Farrell #11.4 103/ulCritically high1.4-6.5The [facility] Comment on above:Performed By: #### PTT, PT #### [facility] [address] [place] [address] Dr. Artem Dossutrophils/100 WBC (Bld)85.9 %Critically high43.0-75.0The [facility] HospitalComment on above:Performed By: #### PTT, PT #### [facility] [address] [place] [address] Dr. Artem Linderlet mean volume (Bld) [Entitic vol]10.8 fLNormal9.5-13.5The [facility] HospitalComment on above:Performed By: #### PTT, PT #### [facility] [address] [address] [address] Artem RojasPLT164 103/uuXmvubj575-056Wju [facility] HospitalComment on above: Performed By: #### PTT, PT #### [facility] [address] [place], [place] [address] Dr. Artem RojasRBC4.16 106/ulCritically low4.70-6.10The [facility] HospitalComment on above:Performed By: #### PTT, PT #### [facility] [address] [place], [place] [address] Dr. Artem RojasWBC13.2 103/ulCritically high4.0-11.0The [facility] HospitalComment on above:Performed By: #### PTT, PT #### [facility] [address] [place] [address] Dr. Artem RojasCT CSPINE WO CONon [id number] [facility] WO CONEXAMINATION: CT CSPINE WO CON HISTORY: [...] Electronically authenticated by: WILLIAM ARIAS Date: 2022-03-02 17:51NoNationwide Children's HospitalCT HEAD WO CONon [id number] HEAD WO CONCLINICAL HISTORY: UNSPECIFIED INJURY OF [...] Electronically authenticated by: NISSA VIGIL Date: 2022-03-02 17:40The [facility] HospitalCovid-19 PCR (CVDTBH)on [id number]-CoV-2 (COVID-19) RNA MONICA+probe Ql (Unsp spec)Not detectedNormalNOT DETECTEDThe [facility] Comment on above:Result Comment: When diagnostic testing [...] for this test is supported by the [place] of Health and Human Service's declaration that [...] be used).Performed By: #### PTT, PT #### [facility] [address] [place] [address] Dr. Artem RojasGASTROCCULTon [id number]hkwBKPDDVRILow [facility] HospitalComment on above:Performed By: #### PTT, PT #### [facility] [address] [place] [address] Dr. Artem RojasPH YWQPIKG5UqagumHkc [facility] HospitalComment on above:Performed By: #### PTT, PT #### [facility] [address] [place] [address] Dr. Artem RojasPROF 14(COMP METB)on [id number] [Mass/Vol]3.6 g/dLNormal 3.4-5.0The [facility] HospitalComment on above:Performed By: #### PTT, PT #### [facility] [address] [place] [address] Dr. Artem RojasAlbumin/Globulin [Mass ratio]1.3 {ratio}NormalThe [facility] on above:Performed By: #### PTT, PT #### [facility] [address] [place] [address] Dr. Artem RojasALP [Catalytic activity/Vol]65 U/LLqilhr08-387Shy [facility] Hospitalment on above:Performed By: #### PTT, PT #### [facility] [address] [place] [address] Dr. Artem RhoadesT [Catalytic activity/Vol]12 U/LCritically seu18-95Tjv [facility] HospitalComment on above:Performed By: #### PTT, PT #### [facility] [address] [place] [address] Dr. Artem RojasAnion gap [Moles/Vol]12.8 mmol/LNormalBluffton Hospital Comment on above:Performed By: #### PTT, PT #### [facility] [address] [place] [address] Dr. Artem RojasAST [Catalytic activity/Vol]15 U/FSgoomo06-04Rcs [facility] HospitalComment on above:Performed By: #### PTT, PT #### [facility] [address] [place] [address] Dr. Artem RojasBilirubin [Mass/Vol]1.1 mg/dLCritically high0.2-1.0The [facility] HospitalComment on above:Performed By: #### PTT, PT #### [facility] [address] [place] [address] Dr. Artem RojasCalcium [Mass/Vol]9.0 mg/dLNormal8.5-10.1[facility] Comment on above:Performed By: #### PTT, PT #### [facility] [address] [place] [address] Dr. Artem RojasChloride [Moles/Vol]104 mmol/JDoedot80-506NjqBl[facility] Hospital Comment on above:Performed By: #### PTT, PT #### [facility] [address] [place] [address] Dr. Artem RojasCO2 [Moles/Vol]25.8 mmol/IDlxmwc63.0-32.0[facility] Comment on above:Performed By: #### PTT, PT #### [facility] [address] [place] [address] Dr. Artem RojasCreatinine [Mass/Vol]1.06 mg/dLNormal0.70-1.30The [facility] HospitalComment on above:Performed By: #### PTT, PT #### [facility] [address] [address] [address] Artem DaveGFR-AF KITTITIAN>60Normal>=60The [facility] HospitalComment on above:Performed By: #### PTT, PT #### [facility] [address] [address] [address] Artem DaveGFR-NON AF KITTITIAN>60Normal>=60The [facility] HospitalComment on above:Performed By: #### PTT, PT #### [facility] [address] [address] [address] Artem RojasGlobulin (S) [Mass/Vol]2.8 g/dLNormalThe [facility] HospitalComment on above:Performed By: #### PTT, PT #### [facility] [address] [place] [address] Dr. Artem RojasGlucose [Mass/Vol]104 mg/tNKofaan13-509Bpr [facility] Comment on above:Performed By: #### PTT, PT #### [facility] [address] [place] [address] Dr. Artem RojasPotassium [Moles/Vol]4.6 mmol/LNormal3.5-5.1The [facility] Comment on above:Performed By: #### PTT, PT #### [facility] [address] [place] [address] Dr. Artem RojasProtein [Mass/Vol]6.4 g/dLNormal6.4-8.2The [facility] Comment on above:Performed By: #### PTT, PT #### [facility] [address] [place] [address] Dr. Artem RojasSodium [Moles/Vol]138 mmol/ZZftomr107-708Idj [facility] Comment on above:Performed By: #### PTT, PT #### [facility] [address] [place] [address] Dr. Artem RojasUrea nitrogen [Mass/Vol]13.0 mg/dLNormal7.0-18.0The [facility] HospitalComment on above:Performed By: #### PTT, PT #### [facility] [address] [address] [address] Artem Church nitrogen/Creatinine [Mass ratio]12.3 mg/mgNoNationwide Children's HospitalComment on above:Performed By: #### PTT, PT #### [facility] [address] [place] [address] Dr. Artem ByrdIMErivera [id number] Coag (PPP) [Relative time]1.23 {INR} NormalThe [facility] HospitalComment on above:Performed By: #### PTT, PT #### [facility] [address] [place] [address] Dr. Artem Brito GUIDELINESSEE ACMC Healthcare SystemComment on above:Result Comment: DESIRED INR: 2.0 - 3.0 CONDITIONS NOT LISTED BELOW 2.5 - 3.5 FOR PROSTHETIC HEART VALVE REPLACEMENT 2.5 - 3.5 RECURRENT THROMBOSIS Performed By: #### PTT, PT #### [facility] [address] [place] [address] Dr. Artem RojasPT Coag (PPP) [Time]13.1 sCritically high9.0-11.6The [facility] HospitalComment on above:Performed By: #### PTT, PT #### [facility] [address] [place] [address] Dr. Artem Valdivia [id number] Coag (Bld) [Time]28.5 eCtgotq72.3-36.2[facility] HospitalComment on above:Performed By: #### PTT, PT #### [facility] [address] [place] [address] Dr. Artem RojasXR KNEE RT 1_2 Von [id number] KNEE RT 1_2 VXR KNEE RT 1_2 [...] Electronically authenticated by: MATTHEW CHADWICK Date: 2022-03-02 20:49NoNationwide Children's HospitalOVA AND PARASITE EXAMINATIONon [id number] + Parasite Exam Final reportMercer County Community Hospital on above:Result Comment: These results were obtained using wet preparation(s) and trichrome stained smear. This test does not include testing for Cryptosporidium parvum, Cyclospora, or Microsporidia.Performed By: #### PTT, PT #### [facility] [address] [place] [address] Dr. Artem Montero 1CommentNoNationwide Children's HospitalComveterans affairs medical center on above:Result Comment: No ova, cysts, or parasites seen. . One negative specimen does not rule out the possibility of a parasitic infection.Performed By: #### PTT, PT #### [facility] [address] [place] [address] Dr. Artem Bhatt PANEL (PCR)on [id number] F 40/41Not detectedNormal NOT DETECTEDThe [facility] HospitalComment on above:Performed By: #### PTT, PT #### [facility] [address] [place] [address] Dr. Artem RojasAstrovirusNot detectedNormalNOT DETECTEDThe [facility] Comment on above:Performed By: #### PTT, PT #### [facility] [address] [place] [address] Dr. Artem Patel. Diff toxin A/BNot detectedNormalNOT DETECTEDThe [facility] HospitalComment on above:Performed By: #### PTT, PT #### [facility] [address] [place] [address] Dr. Artem BernsteinpylobacterNot detectedNormalNOT DETECTEDThe [facility] Comment on above:Performed By: #### PTT, PT #### [facility] [address] [place] [address] Dr. Artem LopezyptosporidiumNot detectedNormalNOT DETECTEDThe [facility] HospitalComment on above:Performed By: #### PTT, PT #### [facility] [address] [address] [address] Artem Rose. CayetanensisNot detectedNormalNOT DETECTEDThe [facility] County HospitalComment on above:Performed By: #### PTT, PT #### [facility] [address] [place] [address] Dr. Artem Cabrera Coli Q947Dqy ApplicableNormalNot ApplicableThe [facility] County HospitalComment on above:Performed By: #### PTT, PT #### [facility] [address] [address] [address] Artem Cabrera histolyticaNot detectedNormalNOT DETECTEDThe [facility] Comment on above:Performed By: #### PTT, PT #### [facility] [address] [place] [address] Dr. Artem DaveAECNot detectedNormalNOT DETECTEDThe [facility] County HospitalComment on above:Performed By: #### PTT, PT #### [facility] [address] [place] [address] Dr. Artem DaveIECNot detectedNormalNOT DETECTEDThe [facility] HospitalComveter[facility] affairs [facility] on above:Performed By: #### PTT, PT #### [facility] [address] [place] [address] Dr. Artem DavePECNot detectedNormalNOT DETECTEDThe [facility] HospitalComveterans affairs medical center on above:Performed By: #### PTT, PT #### [facility] [address] [place] [address] Dr. Artem DaveTECNot detectedNormalNOT DETECTEDThe [facility] HospitalComment on above:Performed By: #### PTT, PT #### [facility] [address] [place] [address] Dr. Artem Gandhi. LambliaNot detectedNormalNOT DETECTEDThe [facility] Comment on above:Performed By: #### PTT, PT #### [facility] [address] [place] [address] Dr. Artem Lea CONTROLSPASSGalion HospitalComment on above:Performed By: #### PTT, PT #### [facility] [address] [address] [address] Artem WEBER HEADERGI [facility] Comment on above:Performed By: #### PTT, PT #### [facility] [address] [address] [address] Artem Carmona ECOLIGI PANEL DIARRHEAGENIC E.COLI / SHIGELLAThe Bellevue HospitalComment on above:Performed By: #### PTT, PT #### [facility] [address] [address] [address] Artem Carmona INFOSEHocking Valley Community HospitalComment on above: Result Comment: EAEC- Enteroaggregative E. Coli EPEC- Enteropathogenic E. Coli ETEC- Enterotoxigenic E. Coli lt/st STEC- Shigella-like toxin-producing E. Coli stx1/stx2 EIEC- Shigella/Enteroinvasive E. ColiPerformed By: #### PTT, PT #### [facility] [address] [address] [address] Artem Carmona PARASITESGI PANEL PARASITESThe [facility] Comment on above:Performed By: #### PTT, PT #### [facility] [address] [address] [address] Artem Carmona VIRUSGI PANEL VIRUSESThe [facility]vue HospitalComment on above:Performed By: #### PTT, PT #### [facility] [address] [address] [address] Artem Mccurdyvirus GI/GIINot detectedNormalNOT DETECTEDThe [facility] HospitalComveterans affairs medical center on above:Performed By: #### PTT, PT #### [facility] [address] [address] [address] Artem Middleton ShigelloidesNot detectedNormalNOT DETECTEDThe [facility] County HospitalComment on above:Performed By: #### PTT, PT #### [facility] [address] [address] [address] Artem RojasRotavirus ANot detectedNormalNOT DETECTEDThe [facility] Comment on above:Performed By: #### PTT, PT #### [facility] [address] [address] [address] Artem RojasSalmonellaNot detectedNormalNOT DETECTEDThe [facility] Comment on above:Performed By: #### PTT, PT #### [facility] [address] [address] [address] Artem RojasSapovirusNot detectedNormalNOT DETECTEDThe [facility] Comment on above:Performed By: #### PTT, PT #### [facility] [address] [address] [address] Artem RojasSTECNot detectedNormalNOT DETECTEDThe [facility] HospitalComment on above:Performed By: #### PTT, PT #### [facility] [address] [address] [address] Artem EllisonbrioNot detectedNormalNOT DETECTEDThe [facility] HospitalComment on above:Performed By: #### PTT, PT #### [facility] [address] [address] [address] Artem Espinalio CholeraNot detectedNormalNOT DETECTEDBluffton Hospital Comment on above:Performed By: #### PTT, PT #### [facility] [address] [place] [address] Dr. Artem Alexander. EnterocoliticaNot detectedNormalNOT DETECTEDThe [facility] HospitalComment on above:Performed By: #### PTT, PT #### [facility] [address] [address] [address] Artem Bardalessultation Noteon 23-63-9506Fvmlxionxrss Note [id number]#1.00CD:[address] [place], [place] [address]RAD - MISCon [id number] - MISC [id number]#1.00CD:[address] [place], [place] [address]Glucose Poct Glucometerson 87-09-3646Yctxdqq [Mass/Vol]108 mg/dLNormal [facility] HospitalComment on above:Result Comment: Random Glucose Reference Range is dependent on time and content of last meal. Glucose of more than 200 mg/dL in a nonstressed, ambulatory subject supports the diagnosis of Diabetes Mellitus. PERFORMED BY: [facility] [place] [address] PATHOLOGIST CENTER MEDICAL SPECIALIST SARY APARICIO M.D.Performed By: #### GLULS #### Point of Care testing ,[place] 01-10-2021 Specimen: [id number] Received: 01/10/21 Status: WILFREDO Mckeon Num: [id number] Spec Type: Surgical Subm Dr: Shane Snell MD Tissues: A Colon - Polyp (CECUM) B Colon - Polyp (SIGMOID) Procedures: HE Stain/4, Gross/Micro L4/2 Patient Age/Sex Location Account Attending Physician Desean Landry JR 80/M [id number] Shane Snell MD SPEC NUM: [id number] RECD: 01/10/21 STATUS: WILFREDO MCKEON NUM: [id number] MICAH: 01/10/21 DR: Shane Snell MD ENTERED: 01/10/21 [facility] DR: SATHISH TYPE: Surgical DEPT: S ORDERED: [...] findings support the above pathologic diagnosis. Specimen: [id number] Received: 01/10/21 Status: WILFREDO Mckeon Num: [id number] Spec Type: Surgical Subm Dr: Shane Snell MD Tissues: A Colon - Polyp (CECUM) B Colon - Polyp (SIGMOID) Procedures: HE Stain/4, Gross/Micro L4/2 Patient: Desean Landry JR [id number] (Continued) Specimen: [id number] Received: 01/10/21 (Continued) Signed (signature on file) Randi Ji MD 01/11/21 1809 Specimen: [id number] Received: 01/10/21 Status: WILFREDO Mckeon Num: [id number] Spec Type: Surgical Subm Dr: Shane Snell MD Tissues: A Colon - Polyp (CECUM) B Colon - Polyp (SIGMOID) Procedures: HE Stain/4, Gross/Micro L4/2 Patient: Desean Landry JR [id number] (Continued) Specimen: [id number] Received: 01/10/21 (Continued) CPT Codes 08284?2 Specimen: [id number] Received: 01/10/21 Status: WILFREDO Mckeon Num: [id number] Spec Type: Surgical Subm Dr: Shane Snell MD Tissues: A Colon - Polyp (CECUM) B Colon - Polyp (SIGMOID) Procedures: HE Stain/4, Gross/Micro L4/2 Patient: Desean Landry [id number] (Continued) Signed (signature on file) Randi Ji MD 01/11/21 1809 Doctors HospitalCNCOon 40-64-3798XUDOKgrpxc TextOctmorgan county arh hospital [address] [place], [place] [address]IFHK: Desean LandryJOEL NO.: [phone] OF SERVICE: 04/06/2018Dept. of Pulmonary and Critical Care MedicineDear Mr. Landry,Attached please find a copy of your CAT scan chest report from March.Please contact me if I can contribute further in your health care management.Best regards.Yours sincerely,Cesar Rowley M.D., F.C.C.P.HC:EnclosureNoTrinity Health System Twin City Medical CenterCT CHEST WO IVCONon 05-04-7086LZ CHEST WO IVCON* * *Final Report* * *DATE OF EXAM: Apr 06 2018 12:50PM [facility] 0541 - CT CHEST WO IVCON [...] any questions regarding this interpretation, please call [phone].If you are unable to reach us at the number above,please feel free to contact [facility] eRadiology at [phone] Ridge Medical CenterPROGRESSon 19-17-7615Jhdwkwi mass concHNO ID: [id number]: Venita Lr: (none)Author Type: (none)Type: Progress NotesFiled: 04/06/2018 12:57 PMNote Text: Radiology Service Progress NotePATIENT NAME: Desean LandryMRN: [id number] OF SERVICE: April 06, 2018TIME: 12:28 PMPATIENT IDENTITY VERIFICATION COMPLETED USING TWO (2) METHODS: Patientconfirmed name verbally and ID band matches..PATIENT GENDER DATA: MalePATIENT RELEVANT IMPLANT DATA REVIEWED: Not ApplicableRADIOLOGY DEPARTMENT: CT; Exam(s) Completed: ChestPERIPHERAL IV DATA: Not applicableSIGNED BY: Venita Lee 2017 12:28 PMNormalGenesis HospitalOVon 74-26-0042PUUDIpjppz Visit (PULMMN) --------FRANTZDESEAN ([id number]) 1940 MDate Time Provider Department09/10/17 9:55 AM CESAR ROWLEY During your visit today, we recorded the following information about you: Temperature Pulse Respiration Blood pressure 97.7 degrees 75/minute 18/minute 125/68 Weight Height 90.3 kg 1.753 Ritika Rowley MD 09/10/2017 12:26 PM SignedPULMONARY CLINICPATIENT NAME: Desean LandryMRN: [id number] CARE PHYSICIAN: Diogenes Casiano, MDCommunication will be [...] Ht 5' 9ANDquot; (1.75m) Wt 199 lb(90.3kg) DpW296% BMI 29.37 kg/(m2).GENERAL: No distressSKIN: . No rashes or lesions.OROPHARYNX: Oropharynx normal. No erythema. No thrush.LYMPH: No neck adenopathyLUNGS: Lungs clear to auscultation bilateral. No wheezing. No ronchi. No ralesCARDIAC: normal S1 and G8DYBSNKX: Abdomen soft.EXTREMETIES: No deformities. No LE edema. [...] [J98.11] Pleural calcification [J94.8]Order(s):CT CHEST WO IVCON [[id number]] Order #: [id number] FUTUREProblem List As Of Date: 09/10/2017(None)Disposition: Return in about 6 months (around 03/13/2018).Follow-up and Disposition History RecordedEncounter Number: [id number] Status:Closed by CESAR ROWLEY MD on 09/10/17[facility] HospitalCT CHEST WO IVCONon [id number] CHEST WO IVCON* * *Final Report* * *DATE OF EXAM: Sep 10 2017 9:05AM [facility] 0541 - CT CHEST WO IVCON / [...] 6 mm. Three-month imaging follow-up suggested for reevaluation.Tourist Cabin Keeper: AMILCAR Transcribe Date/Time: Sep 10 2017 9:58ADictated by : CHRISTY MULTANI MDThis examination was interpreted and the report reviewed and electronically signed by: CHRISTY MULTANI MD on Sep 10 2017 2:48PM [id number] Clinic ClevelandPROGRESSon 77-85-1750Dpielve mass concHNO ID: [id number]: Cesar Claudiae: (none)Author Type: PhysicianType: Progress NotesFiled: 09/10/2017 12:26 PMNote Text:PULMONARY CLINICPATIENT NAME: Desean LandryMRN: [id number] CARE PHYSICIAN: Diogenes Casiano [facility] OKLAHOMA CITYommunication will be sent [...] wheezing. No ronchi. NoralesCARDIAC: normal S1 and Q2ENITALG: Abdomen soft.EXTREMETIES: No deformities. No LE edema. [...] Critical Care MedicineDATE: September 10, 2017TIME: 9:30 [facility] East CampusProtein mass concHNO ID: [id number]: Srinath Purcell (Ct) CTService: RadiologyAuthor Type: Clinical TechnicianType: Progress NotesFiled: 09/10/2017 9:03 AMNote Text: Radiology Service Progress NotePATIENT NAME: Desean LandryMRN: [id number] OF SERVICE: September 10, 2017TIME: 9:03 AMPATIENT IDENTITY VERIFICATION COMPLETED USING TWO (2) METHODS: Patientconfirmed name verbally and ID band matches..PATIENT GENDER DA TA: MalePATIENT RELEVANT IMPLANT DATA REVIEWED: YesRADIOLOGY DEPARTMENT: CT; Exam(s) Completed: ChestPERIPHERAL IV DATA: Not applicableSIGNED BY: MANINDER LinSelect Medical Cleveland [facility] 2017 9:03 [facility] System East CampusHISTORY PHYSICALon [id number] PHYSICALHNO ID: [id number]: Cesar RowleySertimae: (none)Author Type: PhysicianType: HANDPFiled: 07/23/2017 5:35 PMNote Text:PULMONARY CONSULTPATIENT NAME: Desean LandryMRN: [id number] FOR CONSULT: Pleural effusionREQUESTING PHYSICIAN: REJI HealyRIDCH REGION[facility] CARE PHYSICIAN: Diogenes Casiano, [facility] OKLAHOMA CITYommunication will be sent via [place] mail or shared electronic medicalrecordsHISTORY OF PRESENT ILLNESS: Mr. 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 Unable to make his own medical decision.He lives by himself but currently admitted at a SNF. He has a legalguardian Blanca Sofia phone # [phone].In June he was found on the floor [...] evaluation anddecided to pursue further evaluation at [facility], he has been at a SNF. He [...] counseling regarding test results, pleuraleffusion and coordinatingcare.Cesar Rwoley, MDPulmonary and Critical Care MedicineDATE: July 23, 2017TIME: 12:12 PMNormal [facility] Ridge Medical CenterPROGRESSon 42-19-6846Dscwvje mass concHNO ID: [id number]: Colleen Ceballos RtService: (none)Author Type: (none)Type: Progress NotesFiled: 07/23/2017 11:16 AMNote Text: Radiology Service Progress NotePATIENT NAME: Desean LandryMRN:[id number] OF SERVICE: July 23, 2017TIME: 11:16 AMPATIENT IDENTITY VERIFICATION COMPLETED USING TWO (2) METHODS: Patientconfirmed name verbally and Date of .PATIENT GENDER DATA: MalePATIENT RELEVANT IMPLANT DATA REVIEWED: Not ApplicableRADIOLOGY DEPARTMENT: General X-ray: Exam(s) Completed: Chest X-RayPERIPHERAL IV DATA: Not applicableSIGNED BY: Colleen Ceballos RtFebruary 2017 11:16 AMNormal D[facility] Ridge Medical CenterXR CHEST 2V FRONTAL/LATon 04-40-9666BG CHEST 2V FRONTAL/LAT* * *Final Report* * [...] ARMENTA MD on Jul 23 2017 3:24PM [id number]_QFTYNJHKXfbfiiMibcvushd Clinic ClevelandHOSPon 41-92-1164EALSAhuoabx:Desean LandryMRN: Height:No patient height recorded for this [...] Signed Radiology Service ProgressNotePATIENT NAME: Desean LandryMRN: [id number] OF SERVICE: July 23, 2017TIME: 11:16 AMPATIENT IDENTITY VERIFICATION COMPLETED USING TWO (2) METHODS: Patientconfirmed name verbally and Date of .PATIENT GENDER DATA: MalePATIENT RELEVANT IMPLANT DATA REVIEWED: Not ApplicableRADIOLOGY DEPARTMENT: General X-ray: Exam(s) Completed: Chest X-RayPERIPHERAL IV DATA: Not applicableSIGNED BY: Colleen Ceballos RtFebruary 2017 11:16 AMProgress Notes (HOSP [facility] H23):Latoya Mohamud, RN, RN 07/22/2017 10:35 AM Signed07/22/2017: Navigator contacted [facility] ([phone] toobtain recent labs. Field Services Analyst will fax labs and medication list. Craig also have a copies of this sent with him to his appointments.Normal [facility] Ridge Medical CenterCNPNon [id number] (PULMMN) --------DESEAN LANDRY ([id number]) 1940 MDate Time Provider Department07/16/17 CESAR ROWLEY During your visit today, we recorded the following information about you:Kristie Vallejo 07/16/2017 2:35 PM Signedcxr report to BULL WHEEL WORKER.Italo Mora CNP 07/17/2017 12:47 PM SignedCXR 07/13/2017StableAllergies As of Date: 07/16/2017(No Known Allergies)Date Reviewed: 07/14/2017Reviewed by: Kim Walker (Fel) - Yesenia AssessedReason for Visit: Received Outside Medical Records [1902]Problem List As Of Date: 07/16/2017(None) Status:Closed by KRISTIE ANDRADE on 07/16/17Normal [facility] METABOLIC PANELon 71-03-3373Rhtthpx8.5 mg/dLLow 8.6-10.3The [facility] Willard HospitalComment on above:Order Comment: No: Do not add to previous drawPerformed By: #### 46048, 25072, 99301, 69929, 10303 ####[facility] [place] [address], IMTAvtwhhxj601 mmol/NZfztgn39-870Tjk [facility] Comment on above:Order Comment: No: Do not add to previous drawPerformed By: #### 77850, 87831, 64516, 56718, 68528 ####[facility] [place] [address], GFKDP460 mmol/CBwkvif72-44Hbj [facility] HospitalComment on above:Order Comment: No: Do not add to previous drawPerformed By: #### 42884, 81898, 27478, 20780, 57534 ####[facility] [place] [address], [place] Creatinine0.94 mg/dLNormal0.70-1.30The [facility] Comment on above:Order Comment: No: Do not add to previous drawPerformed By: #### 75257, 81828, 39306, 77997, 74506 ####[facility] [place] [address], USAeGFR (black)mL/min/{1.73_m2}Normal >60The [facility] HospitalComment on above:Order Comment: No: Do not add to previous drawResult Comment: Calculation may not be valid for patients over 70 yearsPerformed By: #### 94789, 98422, 33793, 84189, 63166 ####[facility] [place] [address], [place] eGFR (non-black)mL/min/{1.73_m2}Normal>60The [facility] Comment on above:Order Comment: No: Do not add to previous drawResult Comment: Calculation may not be valid for patients over 70 yearsPerformed By: #### 10359, 61903, 00320, 12400, 24290 ####[facility] [place] [address], USAGlucose mass conc98 mg/oAVgefwc45-119Efr [facility] HospitalComment on above:Order Comment: No: Do not add to previous drawPerformed By: #### 71724, 33705, 86379, 24902, 34296 ####[facility] [place] [address], [place] Potassium molar conc4.3 mmol/LNormal3.5-5.1The [facility] HospitalComment on above:Order Comment: No: Do not add to previous drawPerformed By: #### 45792, 59419, 19567, 17877, 87689 ####[facility] [place] [address], GZUBhcqfm194 mmol/WYpapxx462-119Oxo [facility] HospitalComment on above:Order Comment: No: Do not add to previous drawPerformed By: #### 79709, 70666, 03715, 21388, 40178 ####[facility] [place] [address], [facility] Urea xuljthqh64 mg/dLNormal7-25The [facility] HospitalComment on above:Order Comment: No: Do not add to previous drawPerformed By: #### 45423, 29941, 95819, 66824, 53744 ####[facility] [place] [address], [facility] CENTERCBC W/DIFFon 19-40-8519Uocfcjisz Auto #/vol (Bld)0.5 % Normal0.0-2.0The [facility] HospitalComment on above:Performed By: #### 75007, 04753, 29833, 31997, 97709 ####[facility] [place] [address], [facility]ENTEREosinophils/100 leukocytes3.6 % Normal0.0-5.0The [facility] HospitalComment on above:Performed By: #### 02029, 78649, 48801, 23254, 45314 ####[facility] [place] [place] [address], [facility] CENTERErythrocyte distribution width Auto Ratio (RBC)14.2 %Kherpl46.5-16.9The [facility] Comment on above:Performed By: #### 57201, 84067, 04849, 61461, 29141 ####[facility] [facility] [place] [address], [facility] Erythrocytes (RBC)4.19 mill/al8Efj9.30-5.90The [facility] HospitalComment on above:Performed By: #### 29430, 44990, 61332, 54182, 11042 ####[facility] [place] [address], [facility] Hematocrit (HCT)39.9 %Lvsymx97.0-55.0The [facility] Comment on above:Performed By: #### 96130, 79701, 09640, 19052, 35084 ####[facility] Hemoglobin mass conc (Bld)13.6 g/dLLow13.9-16.3The [facility] HospitalComment on above:Performed By: #### 16981, 41157, 91551, 64964, 64566 ####[facility] [place] [address], [facility] Lymphocytes/100 rupwwaqvrp13.7 %Low20.0-40.0The [facility] HospitalComment on above:Performed By: #### 66547, 06481, 11792, 29788, 68319 ####[facility] [facility] [address], [facility] MCH32.4 rzJrap27.0-32.0The [facility] HospitalComment on above: Performed By: #### 40391, 47067, 73346, 53202, 29362 ####[facility] [place] [address], [facility] CENTERMCHC mass conc (RBC)34.0 g/vJNcgeql71.0-36.0The [facility] HospitalComment on above: Performed By: #### 02536, 28947, 64459, 86271, 54270 ####[facility] [place] [address], IFDTST86.3 oCDgzcir64.0-100.0 The [facility] HospitalComment on above:Performed By: #### 44388, 41329, 98114, 27665, 63827 ####[facility] [place] [address], [facility] CENTERMETHODNormal RBC MorphologyNormalThe [facility] HospitalComment on above:Performed By: #### 80031, 21402, 91302, 52041, 59774 ####[facility] [place] [address], USAMONOS9.9 %High2-8The [facility] HospitalComment on above:Performed By: #### 12505, 41694, 25072, 30755, 71360 ####[facility] [place] [address], [place] Neutrophils/100 abquamjini03.3 %Nitl58-87Fbb [facility] Comment on above:Performed By: #### 17019, 80826, 27560, 14773, 88063 ####[facility] [place] [address], [place] PLAT WQN775 Thou/sp4Vxjxgv376-310Jso [facility] HospitalComment on above:Performed By: #### 42195, 01531, 24894, 14880, 79770 ####[facility] [place] [address], USAWBC (Leukocytes)8.7 Thou/oo1Lcvoki0.0-10.0The [facility] HospitalComment on above: Performed By: #### 74758, 13219, 69104, 51704, 47439 ####[facility] [place] [address], USADischarge Summaryon 54-36-7733Wmwozrmfl SummaryMR#: [id number] IUniversSumma Health Akron Campus Pt. Name: Desean Landry Admitted: 06/13/2017Discharged: 06/20/2017 Date of : 1940 Physician: Diogenes Ren M.D. DISCHARGE SUMMARYPRIMARY DIAGNOSIS: Rhabdomyolysis secondary to prolonged immobilization.SECONDARY DIAGNOSES:1. History of atrial fibrillation.2. Right sided Posterior Calcified pleural plaques.3. Right-sided loculated pleural effusion.CONSULTS: CT Surgery, Pulmonary.PROCEDURES: None.SUMMARY OF HOSPITAL COURSE: is a 76-year-old male, who presentedto [facility] ED with complaints of being [...] EMS was contacted and brought the patient [facility]. Initial workup was notable for severe rhabdomyolysis,and the patient was transferred to [facility]. He has a past medical [...] have a biopsy performed whilehospital[facility] at [facility].His CK and myoglobin continue to trend downward, and he was deemed stableat the time of discharge.He will need to follow up with Dr. Row[facility] at [facility] for continuedmanagement of his pleural effusions concerning for empyema and hisright-sided pleural calcifications. He was to be discharged on June, however his transportation was delayed. He was ultimately dischargedon 06/20/16 [facility].Of note, his Eliquis was stopped for possible thoracentesis in the nextweek. He was instructed that if he does not have a thoracentesis the nextweek, he is to resume his Eliquis for his atrial fibrillation.The patient's condition at discharge stable and improved since admission.DISPOSITION: ECF. DISCHARGE INSTRUCTIONS: You are being discharged to ECF. Please continueto follow up with Dr. Rowley at [facility] for continued management ofthe pleural effusions that [...] 06/19/2017/05:47 P/Jarad Ayon MDDate Trans: 06/20/2017 04:29 P/mmoDN_JN:[id number]: Diogenes Casiano M.D. [address] [facility] [address]HdnhrhNgmTrinity Health System Twin City Medical CenterMAGNESIUM BLOODon 55-73-0160Deshsaljj7.0 mg/dLNormal1.9-2.7The [facility] HospitalComment on above:Order Comment: No: Do not add to previous drawPerformed By: #### 98801, 25261, 72293, 57775, 17704 ####[facility] [place] [address], [facility]ALTH CENTERPHOSPHORUS BLOODon 09-98-8955Sbfgksplp2.5 mg/dLNormal2.5-5.0The [facility] Willard HospitalComment on above:Order Comment: No: Do not add to previous draw Performed By: #### 55471, 71134, 25550, 14532, 55765 ####[facility] [place] [address], USABASIC METABOLIC PANELon 06-34-0392Qvzqisr9.5 mg/dLLow8.6-10.3The [facility] Comment on above:Order Comment: No: Do not add to previous drawPerformed By: #### 27315, 54137, 01453, 89673, 79866 ####[facility] [place] [address], IXBSmskrqty937 mmol/QBmqxbe14-100Nto [facility] HospitalComment on above:Order Comment: No: Do not add to previous drawPerformed By: #### 28695, 00199, 92348, 28647, 78253 ####[facility] [place] [address], [place] CO226 mmol/GGstesr49-87Ujs [facility] HospitalComment on above: Order Comment: No: Do not add to previous drawPerformed By: #### 52678, 89266, 33091, 01291, 09165 ####[facility] [place] [address], USACreatinine0.95 mg/dLNormal0.70-1.30The [facility] HospitalComment on above:Order Comment: No: Do not add to previous drawPerformed By: #### 02682, 48264, 85529, 06005, 84272 ####[facility] [place] [address], USAeGFR (black) mL/min/{1.73_m2}Normal>60The [facility] HospitalComment on above:Order Comment: No: Do not add to previous drawResult Comment: Calculation may not be valid for patients over 70 yearsPerformed By: #### 64403, 36210, 43994, 93662, 10658 ####[facility] [place] [address], USAeGFR (non-black)mL/min/{1.73_m2}Normal>60The [facility] HospitalComment on above:Order Comment: No: Do not add to previous drawResult Comment: Calculation may not be valid for patients over 70 yearsPerformed By: #### 84824, 01372, 05344, 70354, 48546 ####[facility] [place] [address], USAGlucose mass conc 102 mg/qEUsuu80-208Cgm [facility] HospitalComment on above:Order Comment: No: Do not add to previous drawPerformed By: #### 11361, 53587, 59786, 13784, 41295 ####[facility] [place] [address], USAPotassium molar conc3.7 mmol/LNormal3.5-5.1The [facility]ard HospitalComment on above:Order Comment: No: Do not add to previous draw Performed By: #### 46283, 94594, 42461, 95512, 83861 ####[facility] [place] [address], AOEPnfrlt771 mmol/LNormal 136-145The [facility] HospitalComment on above:Order Comment: No: Do not add to previous drawPerformed By: #### 10844, 55351, 99104, 97573, 03561 ####[facility] [place] [address], USAUrea mg/dLNormal7-25The [facility] Comment on above:Order Comment: No: Do not add to previous drawPerformed By: #### 86841, 48514, 03674, 51657, 92174 ####[facility] [place] [address], USACBC W/DIFFon 91-98-2670Ffkdzewro Auto #/vol (Bld)0.5 %Normal0.0-2.0The [facility] HospitalComment on above:Order Comment: No: Do not add to previous drawPerformed By: #### 75316, 38119, 96694, 03824, 67418 ####[facility] [facility] [place] [address], [facility]ENTEREosinophils/100 leukocytes1.0 %Normal0.0-5.0 The [facility] HospitalComment on above:Order Comment: No: Do not add to previous drawPerformed By: #### 64825, 54447, 41514, 68787, 34561 ####[facility] [place] [address], [place] Erythrocyte distribution width Auto Ratio (RBC)13.7 %Ovegte75.5-16.9The [facility] HospitalComment on above:Order Comment: No: Do not add to previous drawPerformed By: #### 71175, 86752, 98642, 80699, 40858 ####[facility] [facility] [place] [address], [facility] Erythrocytes (RBC)4.33 mill/za7Dshrto4.30-5.90The [facility] HospitalComment on above:Order Comment: No: Do not add to previous drawPerformed By: #### 09047, 97676, 35958, 95096, 77358 ####[facility] [place] [address], [facility] CENTERHematocrit (HCT)41.5 %Normal 39.0-55.0The [facility] HospitalComment on above:Order Comment: No: Do not add to previous drawPerformed By: #### 09941, 63128, 85103, 54370, 54790 ####[facility] [place] [address], [facility] CENTERHemoglobin mass conc (Bld)14.1 g/lDKvinuw30.9-16.3The [facility] HospitalComment on above:Order Comment: No: Do not add to previous drawPerformed By: #### 33775, 05524, 21765, 38679, 24308 ####[facility] [facility] [place] [address], [facility] CENTERLymphocytes/100 shqmntjybn37.5 %Low20.0-40.0The [facility] HospitalComment on above:Order Comment: No: Do not add to previous drawPerformed By: #### 51257, 18654, 21208, 14393, 21098 ####[facility] [facility] [address], HXVJPN43.7 veGman82.0-32.0The [facility] HospitalComment on above:Order Comment: No: Do not add to previous draw Performed By: #### 97489, 56935, 08146, 71852, 69069 ####[facility] [place] [address], [facility] mass conc (RBC)34.1 g/vIMcrmdm84.0-36.0The [facility] HospitalComment on above:Order Comment: No: Do not add to previous drawPerformed By: #### 92641, 77644, 03662, 68579, 81925 ####[facility] [facility] [address], SYHIEN11.9 sNIuxaca29.0-100.0The [facility] Comment on above:Order Comment: No: Do not add to previous drawPerformed By: #### 37341, 73051, 61989, 77322, 98917 ####[facility] [facility] [place] [address], USAMETHODNormal RBC MorphologyNormal The [facility] HospitalComment on above:Order Comment: No: Do not add to previous drawPerformed By: #### 21073, 03436, 57826, 49238, 31332 ####[facility] [facility] [address], [place] MONOS11.9 %High2-8The [facility] HospitalComment on above:Order Comment: No: Do not add to previous drawPerformed By: #### 41045, 50116, 05673, 12351, 30641 ####[facility] [place] [address], USANeutrophils/100 lgnrrwykgu04.1 %Gteb82-18Dgz [facility] HospitalComment on above:Order Comment: No: Do not add to previous draw Performed By: #### 40248, 33078, 29058, 87036, 31720 ####[facility] [facility] [address], USAPLAT SRS769 Thou/xj9Jjtqll 100-400The [facility] HospitalComment on above:Order Comment: No: Do not add to previous drawPerformed By: #### 95179, 42851, 05034, 83551, 44215 ####[facility] [place] [address], USAWBC (Leukocytes)10.7 Thou/nm1Hapc9.0-10.0The [facility] HospitalComment on above:Order Comment: No: Do not add to previous draw Performed By: #### 26401, 53494, 23502, 54249, 27584 ####[facility] [facility] [place] [address], USACPKon 27-96-8097Nwavvvtg kinase (CK)252 U/LHruh48-924Vdl [facility] HospitalComment on above:Performed By: #### 38948, 35796, 68594, 11640, 83995 ####[facility] [facility] [place] [address], USAMAGNESIUM BLOODon 35-34-4812Nfznunkyj5.0 mg/dLNormal1.9-2.7The [facility] Comment on above:Order Comment: No: Do not add to previous drawPerformed By: #### 32497, 23309, 91900, 39819, 67515 ####[facility] [place] [facility] [place] [address], USAMYOGLOBINon 08-09-6935Xjigtrwuo484 ng/mLCritically high0-90The [facility] HospitalComment on above:Result Comment: A DOUBLING OF VALUES FROM SERIAL BLOOD COLLECTIONS(1 - 2 HOURS APART) IS MORE INDICATIVE OF A M.I.THAN THE ABSOLUTE VALUE.Performed By: #### 04260, 83645, 15103, 56113, 78669 ####[facility] [place] [address], USAPHOSPHORUS BLOODon 06-19-2017 Phosphate2.7 mg/dLNormal2.5-5.0The [facility] HospitalComment on above:Order Comment: No: Do not add to previous drawPerformed By: #### 92047, 91588, 32965, 16610, 95713 ####[facility] [place] [address], USAALBUMIN BLOODon 71-81-8277Eckkiut4.6 g/dLLow3.5-5.7The [facility] HospitalComment on above:Performed By: #### 95540, 16870, 32701, 13111, 47495 ####[facility] [place] [address], USABASIC METABOLIC PANELon 73-23-7708Hhgvfzg7.4 mg/dLLow 8.6-10.3The [facility] HospitalComment on above:Order Comment: No: Do not add to previous drawPerformed By: #### 56419 ####[facility] [place] [address], VLFOyzdtnuj098 mmol/LNormal 98-107The [facility] HospitalComment on above:Order Comment: No: Do not add to previous drawPerformed By: #### 69241 ####[facility] [place] [address], FOHIQ411 mmol/ITmckah57-25Zmm [facility] HospitalComment on above:Order Comment: No: Do not add to previous drawPerformed By: #### 68781 ####[facility] [place] [address], USACreatinine0.93 mg/dLNormal 0.70-1.30The [facility] HospitalComment on above:Order Comment: No: Do not add to previous drawPerformed By: #### 83109 ####[facility] [place] [address], [facility] CENTEReGFR (black) mL/min/{1.73_m2}Normal>60The [facility] HospitalComment on above:Order Comment: No: Do not add to previous drawResult Comment: Calculation may not be valid for patients over 70 yearsPerformed By: #### 64324 ####[facility] [place] [address], [place] eGFR (non-black)mL/min/{1.73_m2}Normal>60The [facility] Comment on above:Order Comment: No: Do not add to previous drawResult Comment: Calculation may not be valid for patients over 70 yearsPerformed By: #### 09683 ####[facility] [place] [address], [place] Glucose mass xdry341 mg/wSMmol53-822Tcc [facility] Comment on above:Order Comment: No: Do not add to previous drawPerformed By: #### 49916 ####[facility] [facility] [place] [address], [facility] CENTERPotassium molar conc3.4 mmol/LLow3.5-5.1The [facility] HospitalComment on above:Order Comment: No: Do not add to previous draw Performed By: #### 85488 ####[facility] [place] [address] [place] [address], VOCEvxwxl264 mmol/KIdmvzh527-256Aqt [facility] HospitalComment on above:Order Comment: No: Do not add to previous draw Performed By: #### 28844 ####[facility] [place] [address], USAUrea hdmocpmr94 mg/dLNormal7-25The [facility] HospitalComment on above:Order Comment: No: Do not add to previous draw Performed By: #### 94600 ####[facility] [place] [address], [facility] CENTERCBC W/DIFFon 72-32-6628Gcpgtjbgv Auto #/vol (Bld)0.9 % Normal0.0-2.0The [facility] HospitalComment on above:Order Comment: No: Do not add to previous drawPerformed By: #### 31937 ####[facility] [place] [address], [facility] CENTEREosinophils/100 leukocytes2.3 %Normal0.0-5.0The [facility] HospitalComment on above:Order Comment: No: Do not add to previous drawPerformed By: #### 07427 ####[facility] [place] [address], [facility] Erythrocyte distribution width Auto Ratio (RBC)13.6 %Bhfdnj59.5-16.9The [facility] HospitalComment on above:Order Comment: No: Do not add to previous drawPerformed By: #### 38573 ####[facility] [place] [address], [facility]ALTH CENTERErythrocytes (RBC)4.37 mill/mm3 Normal4.30-5.90The [facility] HospitalComment on above:Order Comment: No: Do not add to previous drawPerformed By: #### 56754 ####[facility] [place] [address], [facility] CENTERHematocrit (HCT) 42.0 %Hyfhls98.0-55.0The [facility] HospitalComment on above: Order Comment: No: Do not add to previous drawPerformed By: #### 10173 ####[facility] [facility] [address], [facility] Hemoglobin mass conc (Bld)14.2 g/eXLxneyv86.9-16.3The [facility] HospitalComment on above:Order Comment: No: Do not add to previous draw Performed By: #### 76460 ####[facility] [facility] [address], [facility] CENTERLymphocytes/100 vetylirbfe17.2 %Low20.0-40.0The [facility] HospitalComment on above:Order Comment: No: Do not add to previous drawPerformed By: #### 61867 ####[facility] [place] [address].[place] [address], LGCGTM28.5 nmTajy23.0-32.0The [facility] HospitalComment on above:Order Comment: No: Do not add to previous drawPerformed By: #### 68227 ####[facility] [facility] [address], [facility]ALTH CENTERMCHC mass conc (RBC)33.8 g/dL Irpdbk75.0-36.0The [facility] HospitalComment on above:Order Comment: No: Do not add to previous drawPerformed By: #### 76975 ####[facility] [facility] [place] [address], XXYJQD34.1 fLNormal 80.0-100.0The [facility] HospitalComment on above:Order Comment: No: Do not add to previous drawPerformed By: #### 23097 ####[facility] [facility] [address], [facility]ENTERMETHODNormal RBC MorphologyNormalThe [facility] HospitalComment on above:Order Comment: No: Do not add to previous drawPerformed By: #### 47209 ####[facility] [place] [address], MKDYZUEY28.8 %High 2-8The [facility] HospitalComment on above:Order Comment: No: Do not add to previous drawPerformed By: #### 53585 ####[facility] [place] [address], USANeutrophils/100 leukocytes 69.8 %Xoguti00-20Xza [facility] HospitalComment on above:Order Comment: No: Do not add to previous drawPerformed By: #### 06956 ####[facility] [place] [address], USAPLAT FGU021 Thou/il8Yqtoji232-639Lfy [facility] HospitalComment on above: Order Comment: No: Do not add to previous drawPerformed By: #### 42424 ####[facility] [place] [address], [place] WBC (Leukocytes)10.8 Thou/sy5Ewfe8.0-10.0The [facility] Comment on above:Order Comment: No: Do not add to previous drawPerformed By: #### 94586 ####[facility] [place] [address], USACPKon 16-90-5155Abxoikkb kinase (CK)586 U/PCuur89-370Wxr [facility] HospitalComment on above:Performed By: #### 20091, 06937, 21186, 06438, 62499 ####[facility] [place] [address], [facility] CENTERMAGNESIUM BLOODon 58-04-6837Homrwulwf8.9 mg/dLNormal1.9-2.7The [facility] HospitalComment on above:Order Comment: No: Do not add to previous drawPerformed By: #### 48755 ####[facility] [place] [address], [facility] CENTERMYOGLOBINon 66-01-4578Ckrrvtveq094 ng/mLCritically high0-90The [facility] HospitalComment on above:Result Comment: A DOUBLING OF VALUES FROM SERIAL BLOOD COLLECTIONS(1 - 2 HOURS APART) IS MORE INDICATIVE OF A M.I.THAN THE ABSOLUTE VALUE.Performed By: #### 23371, 26976, 53902, 23423, 70365 ####[facility] [place] [address], USAPHOSPHORUS BLOODon 06-18-2017 Phosphate3.7 mg/dLNormal2.5-5.0The [facility] HospitalComment on above:Order Comment: No: Do not add to previous drawPerformed By: #### 40623 ####[facility] [place] [address], [facility] BASIC METABOLIC PANELon 50-66-9856Bjekmdk1.4 mg/dLLow8.6-10.3The [facility] HospitalComment on above:Order Comment: No: Do not add to previous drawPerformed By: #### 56108 ####[facility] [place] [address], HXWAbmxxcmv783 mmol/HBrhs90-316Vjb [facility] HospitalComment on above:Order Comment: No: Do not add to previous drawPerformed By: #### 94758 ####[facility] [place] [address], MMZOF689 mmol/QXcnsii41-23Ysv [facility] HospitalComment on above:Order Comment: No: Do not add to previous drawPerformed By: #### 06998 ####[facility] [place] [address], USACreatinine0.95 mg/dLNormal0.70-1.30The [facility] HospitalComment on above:Order Comment: No: Do not add to previous drawPerformed By: #### 87058 ####[facility] [place] [address], USAeGFR (black)mL/min/{1.73_m2}Normal >60The [facility] HospitalComment on above:Order Comment: No: Do not add to previous drawResult Comment: Calculation may not be valid for patients over 70 yearsPerformed By: #### 86361 ####[facility] [place] [address], USAeGFR (non-black)mL/min/{1.73_m2} Normal>60The [facility] HospitalComment on above:Order Comment: No: Do not add to previous drawResult Comment: Calculation may not be valid for patients over 70 yearsPerformed By: #### 24623 ####[facility] [place] [address], USAGlucose mass jtat998 mg/dLHigh 70-100The [facility] HospitalComment on above:Order Comment: No: Do not add to previous drawPerformed By: #### 02106 ####[facility] [facility] [address], USAPotassium molar conc3.5 mmol/LNormal3.5-5.1The [facility] HospitalComment on above:Order Comment: No: Do not add to previous drawPerformed By: #### 11339 ####[facility] [facility] [address], JGRUjokks068 mmol/PAfhccu395-165Kwj [facility] HospitalComment on above:Order Comment: No: Do not add to previous drawPerformed By: #### 76966 ####[facility] [place] [address], USAUrea tyqqekxk37 mg/dLNormal7-25The [facility] HospitalComment on above:Order Comment: No: Do not add to previous drawPerformed By: #### 30988 ####[facility] [place] [address], [facility] CENTERCBC COMPLETE BLOOD COUNTon 40-03-9776Yqexmyyazlz distribution width Auto Ratio (RBC)13.7 % Atkrwi50.5-16.9The [facility] HospitalComment on above:Order Comment: No: Do not add to previous drawPerformed By: #### 49478 ####[facility] [place] [address], [facility]ALTH CENTERErythrocytes (RBC)4.45 mill/hv5Sktlqu7.30-5.90The [facility] HospitalComment on above:Order Comment: No: Do not add to previous drawPerformed By: #### 54560 ####[facility] [facility] [address], [facility] Hematocrit (HCT)42.9 %Nvhpuv71.0-55.0The [facility] Comment on above:Order Comment: No: Do not add to previous drawPerformed By: #### 69076 ####[facility] [place] [address], [facility] CENTERHemoglobin mass conc (Bld)14.3 g/oIVtugaa34.9-16.3The [facility] HospitalComment on above:Order Comment: No: Do not add to previous drawPerformed By: #### 15119 ####[facility] [facility] [place] [address], HIJEFN79.1 vhSljs33.0-32.0The [facility] HospitalComment on above:Order Comment: No: Do not add to previous drawPerformed By: #### 86988 ####[facility] [facility] [address], [facility] CENTERMCHC mass conc (RBC)33.3 g/tUPpzfxx93.0-36.0 The [facility] HospitalComment on above:Order Comment: No: Do not add to previous drawPerformed By: #### 95579 ####[facility] [facility] [place] [address], LPWNOL21.3 hOTavurb00.0-100.0 The [facility] HospitalComment on above:Order Comment: No: Do not add to previous drawPerformed By: #### 60530 ####[facility] [place] [address].[place] [address], [facility] CENTERPLAT LUI769 Thou/wl6Mjuvxq 100-400The [facility] HospitalComment on above:Order Comment: No: Do not add to previous drawPerformed By: #### 39352 ####[facility] [facility] [address], [facility] CENTERWBC (Leukocytes)10.7 Thou/rl9Dlls5.0-10.0The [facility] HospitalComment on above: Order Comment: No: Do not add to previous drawPerformed By: #### 58637 ####[facility] [place] [address], [facility] MYOGLOBINon 40-31-0909Zzsqezfxe664 ng/mLCritically high0-90The [facility] HospitalComment on above:Result Comment: A DOUBLING OF VALUES FROM SERIAL BLOOD COLLECTIONS(1 - 2 HOURS APART) IS MORE INDICATIVE OF A M.I.THAN THE ABSOLUTE VALUE.Performed By: #### 99648 ####[address] LUMBAR SPINE WO CONTRASTon 05-27-00285A CT LUMBAR SPINE WO CONTRASTUnMary Rutan HospitalDepartment of Fydfmbyhi[address] [place] [id number] Patien t Name: LANDRYJOVANYDESEAN E : 2Sex: MAge: Race: WhiteMRN: [id number]. Location: [id number]: IVisit #: [id number] Date: 06/16/2017 10:45:00 AMCompleted Date: 06/16/2017 11:31 AMRequesting Provider: NADEEN SALCEDO Attending Provider: NADEEN SALCEDO Report Copy To: Signs & Symptoms: Back Pain (specify level)History: Patient history not availableComments: R/O Fractures, If Other selected, state reason for examExam: 3D CT LUMBAR SPINE WO CONTRASTAccession #: [id number]======== 3D CT LUMBAR SPINE WO CONTRAST 06/16/2017 [...] findings. Electronically signed by:Srinath Meyer. Transcribed by: [email or web address], User Resident: PAOLA ROSTElectronically Signed by: SRINATH MEYER @ 06/16/2017 12:13 PMI personally read this/these film(s) with this residentAdena Regional Medical CenterComment on above:Order Comment: No: Do not add to previous draw3D CT THORACIC SPINE WO CONTRASTon 80-12-80567E CT THORACIC SPINE WO CONTRASTUnMary Rutan HospitalDepartment of Pqlkjesmj[address] [place] [address] Patien t Name: DESEAN LANDRY : 1940ex: MAge: Race: WhiteMRN: [id number]. Location: [id number]: IVisit #: [id number] Date: 06/16/2017 10:45:00 AMCompleted Date: 06/16/2017 11:32 [...] findings. Electronically signed by:Srinath Meyer. Transcribed by: [email or web address], User Resident: CAN HARRISElectronically Signed by: SRINATH MEYER @ 06/16/2017 12:03 PMI personally read this/these film(s) with this residentAdena Regional Medical CenterComment on above:Order Comment: No: Do not add to previous draw BASIC METABOLIC PANELon [id number] mg/dLLow8.6-10.3[facility] Willard HospitalComment on above:Order Comment: No: Do not add to previous drawPerformed By: #### 57130, 18324 ####[facility] [place] [address], ZSCCifoxjye590 mmol/LLfwg32-552Zmb [facility] HospitalComment on above:Order Comment: No: Do not add to previous drawPerformed By: #### 00859, 67182 ####[facility] [place] [address], DQHCI845 mmol/DSkgmac42-03Pnc [facility] HospitalComment on above:Order Comment: No: Do not add to previous drawPerformed By: #### 04583, 28073 ####[facility] [place] [address], USACreatinine1.05 mg/dLNormal0.70-1.30The [facility] HospitalComment on above:Order Comment: No: Do not add to previous drawPerformed By: #### 00449, 52203 ####[facility] [place] [address], USAeGFR (black) mL/min/{1.73_m2}Normal>60The [facility] HospitalComment on above:Order Comment: No: Do not add to previous drawResult Comment: Calculation may not be valid for patients over 70 yearsPerformed By: #### 90782, 21624 ####[facility] [facility] [place] [address], [place] eGFR (non-black)mL/min/{1.73_m2}Normal>60The [facility] Comment on above:Order Comment: No: Do not add to previous drawResult Comment: Calculation may not be valid for patients over 70 yearsPerformed By: #### 46138, 46829 ####[facility] [place] [address], USAGlucose mass uuqk273 mg/fHFmvx35-443Nwl [facility] HospitalComment on above:Order Comment: No: Do not add to previous drawPerformed By: #### 91627, 87844 ####[facility] [place] [address], USAPotassium molar conc4.0 mmol/LNormal3.5-5.1The [facility] HospitalComment on above:Order Comment: No: Do not add to previous drawPerformed By: #### 27401, 87863 ####[address] [place] [address], ITAMqzaug523 mmol/LNormal 136-145The [facility] HospitalComment on above:Order Comment: No: Do not add to previous drawPerformed By: #### 34493, 91302 ####[place] [address] [place] [address], USAUrea mg/dLNormal7-25The [facility] HospitalComment on above:Order Comment: No: Do not add to previous drawPerformed By: #### 84626, 00942 ####[address] [place] [address], [facility] BNP (B-TYPE NATRIURETIC PEPTIDE)on 33-34-8750DAC6559 pg/mLHigh0-100The [facility] HospitalComment on above:Order Comment: No: Do not add to previous drawResult Comment: Given the appropriate clinical setting a BNP result of >100 pg/mLindicates congestive heart failure.Performed By: #### 17576 ####[address] [place] [address], [facility] CBC COMPLETE BLOOD COUNTon 72-23-5452Jqnvnrklxhh distribution width Auto Ratio (RBC)13.7 %Qctlmv06.5-16.9The [facility] HospitalComment on above:Order Comment: No: Do not add to previous drawPerformed By: #### 25828, 00670 ####[address] [place] [address], [facility] CENTERErythrocytes (RBC)4.24 mill/ur9Bom0.30-5.90The [facility] HospitalComment on above:Order Comment: No: Do not add to previous draw Performed By: #### 10787, 76177 ####[address] [place] [address], [facility] CENTERHematocrit (HCT)40.7 %Kuntfg80.0-55.0The [facility] HospitalComment on above:Order Comment: No: Do not add to previous drawPerformed By: #### 54604, 14310 ####[facility] [place] [address].[place] [address], [facility] CENTERHemoglobin mass conc (Bld) 13.6 g/dLLow13.9-16.3The [facility] HospitalComment on above: Order Comment: No: Do not add to previous drawPerformed By: #### 30880, 12827 ####[place] [address], [facility] MCH32.1 llJqum34.0-32.0The [facility] HospitalComment on above: Order Comment: No: Do not add to previous drawPerformed By: #### 27379, 09281 ####[address] MCHC mass conc (RBC)33.4 g/vNUzdugm33.0-36.0The [facility] HospitalComment on above:Order Comment: No: Do not add to previous drawPerformed By: #### 44392, 89796 ####[place] [address], DTUEDD22.1 vEAyuvcl24.0-100.0The [facility] HospitalComment on above:Order Comment: No: Do not add to previous draw Performed By: #### 10300, 69270 ####[address] [place] [address], [facility] CENTERPLAT YIC731 Thou/fy3Aykehc881-634Vky [facility] HospitalComment on above:Order Comment: No: Do not add to previous drawPerformed By: #### 75158, 15282 ####[address] [place] [address], [facility] CENTERWBC (Leukocytes)10.3 Thou/jq1Ghjg4.0-10.0[facility] HospitalComment on above: Order Comment: No: Do not add to previous drawPerformed By: #### 40260, 96538 ####[facility] [place] [address] CPKon 39-86-1834Mudlkhak kinase (CK)2950 U/LCritically mfyc11-263Jqu [facility] HospitalComment on above:Performed By: #### 07622, 07803 ####[address] CR-PORTABLE CHEST 1 VIEW IMPORTon 95-95-6557SD-PORTABLE CHEST 1 VIEW IMPORT Images were obtained outside of [facility] [id number]_IDCSIACNNormalDiley Ridge Medical CenterCT CHEST WO CONTRASTon 73-45-9815CX CHEST WO CONTRASTUnMary Rutan HospitalDepartment of Elrmruiym[address] [place], [place] [address] Patien t Name: DESEAN LANDRY : 2Sex: MAge: Race: WhiteMRN: [id number]. Location: [id number]: IVisit #: [id number] Date: 06/16/2017 5:25:00 PMCompleted Date: 06/16/2017 06:06 PMRequesting Provider: RAFFAELE GARCIA Attending Provider: NADEEN SALCEDO Report Copy To: Signs & Symptoms: Shortness of BreathHistory: Patient history not availableComments: R/O Pleural Effusion, please comment about pleural effusionExam: CT CHEST WO CONTRASTAccession #: [id number] CT CHEST WO CONTRAST 06/16/2017 6:06 PM [...] findings. Electronically signed by:Xiomara Christine. Transcribed by: [email or web address], User Resident: SUNITHA CAMACHOElectronically Signed by: XIOMARA CHRISTINE @ 06/17/2017 01:24 PMI personally read this/these film(s) with this residentAdena Regional Medical CenterComment on above:Order Comment: No: Do not add to previous drawCT-3D CT LUMBAR SPINE WO CONTRAST IMPORTon 02-32-8342OS-3D CT LUMBAR SPINE WO CONTRAST IMPORTImages were obtained outside of [facility] [id number]_IDCSIACNNMercy Health Anderson Hospital ClevelandCT-3D CT THORACIC SPINE WO CONTRAST IMPORTon 49-65-1996PK-3D CT THORACIC SPINE WO CONTRAST IMPORTImages were obtained outside of [facility] [id number]_IDCSIACClermont County Hospital ClevelandCT-CT CHEST WO CONTRAST IMPORTon 67-40-0678GJ-CT CHEST WO CONTRAST IMPORTImages were obtained outside of [facility] [id number]_IDCSIACClermont County Hospital ClevelandMYOGLOBINon 06-16-2017 Tvwclhtko025 ng/mLCritically high0-90The [facility] Comment on above:Result Comment: A DOUBLING OF VALUES FROM SERIAL BLOOD COLLECTIONS(1 - 2 HOURS APART) IS MORE INDICATIVE OF A M.I.THAN THE ABSOLUTE VALUE.Performed By: #### 11581, 44308 ####[facility] [place] [address], USAPORTABLE CHEST 1 VIEWon 06-16-2017 PORTABLE CHEST 1 VIEWUnMary Rutan HospitalDepartment of Bezexrzrr[address] [place] [address] Patien t Name: DESEAN LANDRY : 2Sex: MAge: Race: WhiteMRN: [id number]. Location: [id number]: Rekha #: [id number] Date: 06/16/2017 12:50:00 PMCompleted Date: 06/16/2017 01:22 PMRequesting Provider: NADEEN SALCEDO Attending Provider: NADEEN SALCEDO Report Copy To: Signs & Symptoms: O2 DesaturationHistory: Patient history not availableComments: R/O AspirationExam: PORTABLE CHEST 1 VIEWAccession #: [id number] ====PORTABLE CHEST 1 VIEW 06/16/2017 1:22 PM [...] left chest. Electronically signed by:Srinath Meyer. Transcribedby: [email or web address], User Resident: Electronically Signed by: SRINATH MEYER @ 06/16/2017 01:25 PMNormal The [facility] HospitalComment on above:Order Comment: No: Do not add to previous drawPROTHROMBIN TIMEon 26-47-0640NUM Coag RelTime (PPP)1.51 {INR}High0.91-1.16The [facility] HospitalComment on above:Order Comment: No: Do not [...] ACTION, CLINICALEFFECTIVENESS, AND OPTIMAL THERAPEU TIC RANGE. SYEOW9721;108:231S-246S.Performed By: #### 24464 ####[facility] [facility] [address], [facility] CENTERProthrombin time (PT) Coag time (PPP)18.4 sHigh12.3-14.8The [facility] Comment on above:Order Comment: No: Do not add to previous drawResult Comment: ALL RESULTS MUST BE INTERPRETED WITH RESPECT TO BLOOD DRAWING ARTIFACTOR DILUTION ERROR OF ANTICOAGULANT AT THE TIME OF SAMPLING.Performed By: #### 69266 ####[facility] [place] [address], [facility] BASIC METABOLIC PANELon 87-92-1197Kdvtjpq0.0 mg/dLLow8.6-10.3The [facility] HospitalComment on above:Order Comment: No: Do not add to previous drawPerformed By: #### 94807, 04628, 08664, 18124 ####[facility] [place] [address], NPIFbkdaqnl138 mmol/LHigh 98-107The [facility] HospitalComment on above:Order Comment: No: Do not add to previous drawPerformed By: #### 42033, 84869, 54052, 82637 ####[facility] [place] [address], [place] CO221 mmol/FVlqvsd21-40Umq [facility] HospitalComment on above: Order Comment: No: Do not add to previous drawPerformed By: #### 78642, 04630, 57482, 39319 ####[facility] [facility] [place] [address], USACreatinine1.15 mg/dLNormal0.70-1.30The [facility] HospitalComment on above:Order Comment: No: Do not add to previous drawPerformed By: #### 41005, 81570, 80937, 28056 ####[facility] [place] [address], USAeGFR (black)mL/min/{1.73_m2}Normal>60The [facility] HospitalComment on above:Order Comment: No: Do not add to previous drawResult Comment: Calculation may not be valid for patients over 70 yearsPerformed By: #### 13141, 76169, 95948, 08342 ####[facility] [place] [address], USAeGFR (non-black) mL/min/{1.73_m2}Normal>60The [facility] HospitalComment on above:Order Comment: No: Do not add to previous drawResult Comment: Calculation may not be valid for patients over 70 yearsPerformed By: #### 86259, 88433, 01353, 77036 ####[facility] [place] [address], USAGlucose mass bvlz273 mg/lJAztx39-770Wzd [facility] HospitalComment on above:Order Comment: No: Do not add to previous drawPerformed By: #### 90206, 23048, 10606, 65948 ####[facility] [place] [address], USAPotassium molar conc3.9 mmol/LNormal3.5-5.1The [facility] HospitalComment on above:Order Comment: No: Do not add to previous drawPerformed By: #### 89679, 45718, 88988, 06092 ####[facility] [place] [address], YHNLwpsqt993 mmol/L Mdutkj914-139Hhc [facility] HospitalComment on above:Order Comment: No: Do not add to previous drawPerformed By: #### 79104, 33047, 01810, 26034 ####[facility] [place] [address], USAUrea dmuwwmvr99 mg/dLNormal7-25The [facility] Comment on above:Order Comment: No: Do not add to previous drawPerformed By: #### 83458, 31509, 82483, 85555 ####[facility] [place] [address], USACBC COMPLETE BLOOD COUNTon 06-15-2017 Erythrocyte distribution width Auto Ratio (RBC)13.7 %Adtjtx40.5-16.9The [facility] HospitalComment on above:Order Comment: No: Do not add to previous drawPerformed By: #### 42679 ####[facility] [place] [address], USAErythrocytes (RBC)4.44 mill/mm3 Normal4.30-5.90The [facility] HospitalComment on above:Order Comment: No: Do not add to previous drawPerformed By: #### 04383 ####[facility] [place] [address], USAHematocrit (HCT) 42.7 %Yjspeo02.0-55.0The [facility] HospitalComment on above: Order Comment: No: Do not add to previous drawPerformed By: #### 16184 ####[facility] [place] [address], [facility] Hemoglobin mass conc (Bld)14.5 g/gSDokfgj93.9-16.3The [facility] HospitalComment on above:Order Comment: No: Do not add to previous draw Performed By: #### 09220 ####[facility] [facility] [address], KGAEAF64.7 tqRlxn40.0-32.0The [facility] HospitalComment on above:Order Comment: No: Do not add to previous drawPerformed By: #### 56730 ####[facility] [facility] [address], [facility]HC mass conc (RBC)34.0 g/cCTpaakw09.0-36.0The [facility] HospitalComment on above:Order Comment: No: Do not add to previous drawPerformed By: #### 85107 ####[facility] [facility] [address], GSQBBZ19.1 vGZqkjoe04.0-100.0The [facility] HospitalComment on above:Order Comment: No: Do not add to previous drawPerformed By: #### 55882 ####[facility] [facility] [address], USAPLAT LQN520 Thou/pj7Grqmli526-403Wdm [facility] HospitalComment on above:Order Comment: No: Do not add to previous drawPerformed By: #### 96938 ####[facility] [facility] [address], [facility] CENTERWBC (Leukocytes)11.3 Thou/on3Kplg 4.0-10.0The [facility] HospitalComment on above:Order Comment: No: Do not add to previous drawPerformed By: #### 87284 ####[facility] [facility] [place] [address], USACPKon 29-11-5316Ocqtlcuz kinase (CK)7925 U/LCritically wcyi53-452Fys [facility] Comment on above:Order Comment: No: Do not add to previous drawPerformed By: #### 98621, 13633 ####[facility] [place] [address], USAMAGNESIUM BLOODon 29-12-6034Yasxketdk2.4 mg/dLNormal 1.9-2.7The [facility] HospitalComment on above:Performed By: #### 19567, 26253 ####[facility] [place] [address], USAPHOSPHORUS BLOODon 41-45-6414Disxmcqel0.6 mg/dLNormal 2.5-5.0The [facility] HospitalComment on above:Performed By: #### 52862, 03614 ####[facility] [facility] [place] [address], USABASIC METABOLIC PANELon 01-75-3970Lbxlatr6.3 mg/dLLow 8.6-10.3The [facility] HospitalComment on above:Order Comment: No: Do not add to previous drawPerformed By: #### 01491, 25638, 67410, 94250, 69657 ####[facility] [facility] [place] [address], KXWCepppbsj577 mmol/SJferom03-819Vdv [facility] Comment on above:Order Comment: No: Do not add to previous drawPerformed By: #### 81858, 76686, 79450, 59005, 92364 ####[facility] [facility] [facility] [address], IEZOK297 mmol/BZuilvs83-00Uqo [facility] HospitalComment on above:Order Comment: No: Do not add to previous drawPerformed By: #### 50091, 58678, 80023, 09396, 38248 ####[facility] [place] [address], [facility] Creatinine1.25 mg/dLNormal0.70-1.30The [facility] Comment on above:Order Comment: No: Do not add to previous drawPerformed By: #### 83056, 56201, 71794, 96900, 41182 ####[facility] [place] [address], [facility]ENTEReGFR (black)mL/min/{1.73_m2}Normal >60The [facility] HospitalComment on above:Order Comment: No: Do not add to previous drawResult Comment: Calculation may not be valid for patients over 70 yearsPerformed By: #### 23739, 58754, 34860, 16575, 31262 ####[facility] [place] [address], [facility] eGFR (non-black)56 ml/min/1.73sq mAbnormal>60The [facility] HospitalComment on above:Order Comment: No: Do not add to previous drawResult Comment: Calculation may not be valid for patients over 70 yearsPerformed By: #### 87305, 74276, 91546, 88801, 57533 ####[facility] [place] [address], [facility] CENTERGlucose mass ogaz798 mg/dLHigh 70-100The [facility] HospitalComment on above:Order Comment: No: Do not add to previous drawPerformed By: #### 48806, 15497, 77213, 09168, 62514 ####[facility] [place] [address], [facility] Potassium molar conc4.3 mmol/LNormal3.5-5.1The [facility] HospitalComment on above:Order Comment: No: Do not add to previous drawPerformed By: #### 51676, 75684, 14294, 58126, 56712 ####[facility] [place] [address], HDXYfftyf375 mmol/JHjaizw283-204Vhq [facility] HospitalComment on above:Order Comment: No: Do not add to previous drawPerformed By: #### 25135, 48784, 78652, 22923, 63478 ####[facility] [place] [address], [place] Urea lksouhru13 mg/dLNormal7-25The [facility] HospitalComment on above:Order Comment: No: Do not add to previous drawPerformed By: #### 03902, 42742, 00264, 65705, 83577 ####[facility] [place] [address], [facility] CENTERCBC COMPLETE BLOOD COUNTon 42-42-4186Empwmodgzaw distribution width Auto Ratio (RBC)13.8 %Huldva38.5-16.9The [facility] HospitalComment on above:Order Comment: No: Do not add to previous draw Performed By: #### 60004 ####[facility] [facility] [place] [address], [facility] CENTERErythrocytes (RBC)4.83 mill/za4Gujbck6.30-5.90The [facility] HospitalComment on above:Order Comment: No: Do not add to previous drawPerformed By: #### 62029 ####[facility] [facility] [place] [address], USAHematocrit (HCT)46.7 %Normal 39.0-55.0The [facility] HospitalComment on above:Order Comment: No: Do not add to previous drawPerformed By: #### 73242 ####[facility] [place] [address], [facility] CENTERHemoglobin mass conc (Bld)15.8 g/aHJxldzf03.9-16.3The [facility] HospitalComment on above:Order Comment: No: Do not add to previous drawPerformed By: #### 15747 ####[facility] [facility] [place] [address], [facility] MCH32.7 nvXocu78.0-32.0The [facility] HospitalComment on above: Order Comment: No: Do not add to previous drawPerformed By: #### 55439 ####[facility] [facility] [place] [address], [facility] MCHC mass conc (RBC)33.9 g/lTYgeyrf63.0-36.0The [facility] HospitalComment on above:Order Comment: No: Do not add to previous drawPerformed By: #### 83708 ####[facility] [place] [address].[place] [address], XDDNGN48.6 uSWsomdi13.0-100.0The [facility] Comment on above:Order Comment: No: Do not add to previous drawPerformed By: #### 33930 ####[facility] [place] [address].[place] [address], [facility] CENTERPLAT YND612 Thou/yr8Qsoxex526-388Jfm [facility] HospitalComment on above:Order Comment: No: Do not add to previous drawPerformed By: #### 63890 ####[address] [place] [address], [facility] CENTERWBC (Leukocytes)15.7 Thou/pf0Rjnm2.0-10.0The [facility] HospitalComment on above:Order Comment: No: Do not add to previous draw Performed By: #### 61808 ####[address] [place] [address], [facility] CENTERCPKon 02-18-2911Fktrfjxe kinase (CK)37120 U/LCritically kydl62-742Lmt [facility] HospitalComment on above:Performed By: #### 41867, 00814, 28755, 60259, 97827 ####[facility] [place] [address].[place] [address], USAMAGNESIUM BLOODon 06-14-2017 Magnesium2.8 mg/dLHigh1.9-2.7The [facility] HospitalComment on above:Order Comment: No: Do not add to previous drawPerformed By: #### 61678, 55733, 00106, 64739, 19667 ####[facility] [place] [address], USAPHOSPHORUS BLOODon 73-67-2539Qopxfwhfd5.3 mg/dLNormal 2.5-5.0The [facility] HospitalComment on above:Order Comment: No: Do not add to previous drawPerformed By: #### 75281, 92357, 92014, 42425, 22265 ####[facility] [place] [address], USATSHon 12-76-1817Xxwkeqb stimulating hormone (TSH)2.65 MICRO-IU/ML Normal0.34-5.60The [facility] HospitalComment on above:Performed By: #### 76916, 39855, 40342, 55981, 47968 ####[facility] [place] [address], USABASIC METABOLIC PANELon 06-13-2017 Calcium8.4 mg/dLLow8.6-10.3The [facility] HospitalComment on above:Order Comment: No: Do not add to previous drawPerformed By: #### 71510, 65049 ####[facility] [place] [address], MWUMlhdyrpg880 mmol/LSvnjab22-798Jzv [facility] Comment on above:Order Comment: No: Do not add to previous drawPerformed By: #### 01552, 99473 ####[facility] [place] [address], YQPHT300 mmol/NKqjvgt69-81Zmv [facility] HospitalComment on above:Order Comment: No: Do not add to previous drawPerformed By: #### 21636, 74118 ####[facility] [place] [address], USACreatinine1.26 mg/dLNormal0.70-1.30The [facility] HospitalComment on above:Order Comment: No: Do not add to previous drawPerformed By: #### 85014, 21006 ####[facility] [place] [address], USAeGFR (black)mL/min/{1.73_m2}Normal>60The [facility] HospitalComment on above:Order Comment: No: Do not add to previous drawResult Comment: Calculation may not be valid for patients over 70 yearsPerformed By: #### 26750, 29256 ####[facility] [place] [address], USAeGFR (non-black)56 ml/min/1.73sq m Abnormal>60The [facility] HospitalComment on above:Order Comment: No: Do not add to previous drawResult Comment: Calculation may not be valid for patients over 70 yearsPerformed By: #### 44366, 07935 ####[facility] [facility] [place] [address], [facility] CENTERGlucose mass kmnk904 mg/iRNzgg95-020Cen [facility] HospitalComment on above: Order Comment: No: Do not add to previous drawPerformed By: #### 75662, 89516 ####[facility] [place] [address].[place] [address], [place] Potassium molar conc4.8 mmol/LNormal3.5-5.1The [facility] HospitalComment on above:Order Comment: No: Do not add to previous drawPerformed By: #### 25752, 32028 ####[facility] [place] [address], AJRPhywre829 mmol/ZUljack584-024Bvg [facility] HospitalComment on above:Order Comment: No: Do not add to previous draw Performed By: #### 58780, 82657 ####[facility] [place] [address], USAUrea srouvwgp94 mg/dLNormal7-25The [facility] HospitalComment on above:Order Comment: No: Do not add to previous drawPerformed By: #### [id number], [id number] ####[facility] [place] [address], USACPKon 55-15-9421Rjpeosez kinase (CK)52885 U/LCritically esff91-704Whe [facility] Willard HospitalComment on above:Order Comment: No: Do not add to previous drawPerformed By: #### [id number], [id number] ####[facility] [place] [address], USAHistory and Physicalon 55-08-4065Fhnnsnh and PhysicalMR#: [id number] Hospital Pt[facility] Name: Desean Landry Admitted: 06/13/2017 Date of : 1940 Attending Physician: Arpan Camacho MD Room #: [id number] Discharge Date: HISTORY AND PHYSICALPRIMARY CARE PHYSICIAN: [...] evaluation and management.The patient presented to the [facility] Emergency Department. Overthere, the patient had initial workup revealed severe rhabdomyolysis, sothe patient was referred to the [facility] for further evaluationand management. Denying any chest [...] Dict: 06/13/2017/06:07 Jesse/Mariangel Hayes Trans: 06/13/2017 06:38 P/JuanN_JN:[id number] Regional Medical Center Vital Signs Date TimeVital SignValuePerforming ZhyoafjjxWupjskuw65-31-4763 09:22-0400Body xrtzug656.3 cmAnthony Rusher DPM Work Phone: [phone]08-13-2025 09:22-0400Body mass index (BMI) [Ratio]29.53 kg/l2Uwbeyuv Rusher DPM Work Phone: [phone] [place], [place] 8561408-13-2025 09:22-0400Body nbnarn02.72 kgAnthony Rusher DPM Work Phone: [phone] [place], [place] 8561405-07-2025 10:04-0400Body ddqjva894.3 cmAnthony Rusher DPM Work Phone: [phone]05-07-2025 10:04-0400Body mass index (BMI) [Ratio]29.53 kg/x3Rykuhuo Rusher DPM Work Phone: [phone])[address] [place], [place] 8561405-07-2025 10:04-0400Body .72 kgAnthony Rusher DPM Work Phone: [phone] [place], [place] [address]561404-21-2025 13:20-0400Body uvsvhs824.26 cmMer[facility]04-21-2025 13:20-0400Body mass index (BMI) [Ratio]29.5 kg/q2DcrdynwopMercer County Community Hospital04-21-2025 13:20-0400Body ytispkusbtn69.7 [degF][facility]04-21-2025 13:20-0400Body awkelk39.88 kgMercer County Community Hospital04-21-2025 13:20-0400Diastolic blood tygwcito89 mm[Hg][facility]04-21-2025 13:20-0400 Heart rate60 /[facility]04-21-2025 13:20-0400 Respiratory rate18 /[facility]04-21-2025 13:20-0400 SaO2% (BldA) [Mass fraction]97 %[facility]04-21-2025 13:20-0400Systolic blood jejtkrav200 mm[Hg][facility] Encounters Encounter DateEncounter TypeCare ProviderFacilityStart: 04-17-2025 End: 83-49-9500kztiwokegjFCGBQT SCOOTERSelect Medical [facility]ty [facility] Start: 26-06-8776dwfhfpmebsVGVNSalem Regional Medical Centertart: 01-25-2025 End: 74-80-3204Cehbdh flowsheetAnthony S Amolher DPM Work Phone: [facility] PodiatryStart: 01-25-2025 End: 30-99-9944Qyrrtx flowsheetAnthony S Amolher DPM Work Phone: [facility] PodiatryStart: 01-25-2025 End: 60-70-6400bwdypurkppOFBVJIS S RUSHERNot AvailableStart: 01-25-2025 End: 77-74-3907Bvllugh encounter procedureAnthony S Marly DPM Work Phone: [facility] PodiatryComment on above:Onychodystrophy (Primary Dx); Onychomycosis; Corns and callosities; Diabetic polyneuropathy associated with type 2 diabetes mellitus (HCC)Start: 43-67-3488qiexvskhqpKZVPPike Community Hospitaltart: 91-05-3354frbvszjfowXGJD OTILIAOUnOhio Valley Surgical Hospital CenterStart: 10-19-2024 End: 25-09-0769Rkdnlq flowsheetLaurieony Erica Luke DPM Work Phone: [facility]ODIATRYStart: 10-19-2024 End: 72-50-0254Xxbnxp flowsheetAnthony S Rusher DPM Work Phone: [facility] PODIATRYStart: 10-19-2024 End: 02-56-6941Iqivwn outpatient new 45 minutesAnthony S Rusher DPM Work Phone: noms PODIATRYComment on above:Diabetic polyneuropathy associated with type 2 diabetes mellitus (CMS/HCC) (Primary Dx); Onychodystrophy; Onychomycosis; Corns and callosities; Paronychia of toe of left footStart: 10-19-2024 End: 61-45-6881ekbpcbbawbAGIJXUT S RUSHERNot AvailableStart: 10-03-2024 End: 68-25-9936rubcilwvxdLdbjgclctDayton Osteopathic Hospital Work Phone: Start: 10-03-2024 End: 35-17-4929Qmsllba encounter procedurePerson Memorial Hospital Physician GroupWMCHEALTH [facility] Work Phone: Start: 08-26-2022 End: 75-86-9020ffbepfgaxeJS DIOGENES HOY .Facility:Z7Ehkmh: 08-20-2022 End: 45-44-7142jyvfhnwvviYC DIOGENES HOY .Facility:I9Tmyhv: 07-30-2022 End: 59-57-6261nvxqdklchvBW DIOGENES HOY .Facility:R1Jjdwx: 03-02-2022 End: 36-30-2183lbctseymtgXQ SRINATH Márquezcility:K3Khuph: 02-19-2022 End: 32-89-3465hbrvmmxnjgAF DIOGENES HOY .Facility:X6Pyacp: 01-15-2022 End: 11-50-4935omsovzcykkVQ DIOGENES HOY .Facility:E6Ppark: 04-06-2018 End: 51-93-9690Ryqjier encounter procedureHUMBERTO [facility] Hospital Limaart: 09-10-2017 End: 79-09-2784Wvclhqz encounter procedureUC [facility]: 07-23-2017 End: 84-67-1450Isfjhzf encounter procedureCESAR Memorial Health [facility]: 07-23-2017 End: 15-38-0313Yysakge encounter procedureKALEB RODRIGUEZSelect Medical [facility]: 06-13-2017 End: 11-58-1082Ktmtktxoub and management of inpatientASIF MAHMOODFacility:[facility] Procedures DateProcedureProcedure DetailPerforming ClinicianStart: 07-67-2890EIF screening DR DIOGENES CASIANO .Comment on above:Performed By: #### PTT, PT #### [facility] [address] [place] [address] Dr. Artem Rojas Plan of Treatment DateCare ActivityDetailAuthorStart: 05-03-2025 End: 71-02-3636Fnfadho encounter fsaolfqxc77/19/2025 9:00 AM EST Procedure Visit [facility] [address] [place] [address] Home Luke DPM [address] [place] [address] [facility] Wei PodiatryStart: 62-03-5635Hwlupopym vaccination [facility] HealthcareStart: 01-25-2025 End: 41-40-2535Ucetgdt encounter ycjauqosh70/13/2025 9:15 AM EDT Procedure Visit [facility] [address] [place] [address] Home Luke DPM [address] [place] [address] [facility]ODIATRYStart: 10-19-2024 End: 34-73-2415Atyuxyn encounter kbjjrapou57/07/2025 10:00 AM EDT Office Visit [facility] [address] [place] [address] Home Luke, DPStephania [address] [place] [address] ArrivedNOMS PODIATRYComment on above:ArrivedStart: 73-91-0864Ielbrjg referralHighland District Hospital Work Phone: Start: 50-78-5017Tsvmsqjfmkaj Vaccine: 65+ Years (2 of 2 - PPSV23)Pneumococcal Vaccine: 65+ Years (2 of 2 - PPSV23)[facility] Patient referralHighland District Hospital Work Phone: Immunizations Immunization DateImmunizationNotesCare EccziqdsFntkunnw45-33-7114stgvtwsrv virus vaccine, unspecified formulationHome Luke DPM Work Phone: NOHeartland Behavioral Health ServicesYzdfvmguyx07-31-9655HXQJM-95 mRNA, Comirnaty (Pfizer)[facility]03-08-2021COVID-19 mRNA, Comirnaty (Pfizer)[facility] Payers DatePayer CategoryPayerPolicy [id number] ([facility]) ..[id number] 2022Medicaid ..[id number] [id number] 2007MedicareMEDICARE [id number] of Defense ( and others)[id number] [id number] 1942Unknown [id number] 2.16.840.1.815768.3.57[id number] 2.16.840.1.977102.3.57[id number] 2.16.840.1.905955.3.57[id number] 2.16.840.1.040208.3.57[id number] 2.16.840.1.999938.3.57[id number] 2.16.840.1.062652.3.57[id number] 2.16.840.1.959917.3.57[id number] 2.16.840.1.258736.3.579.2.1259Department of Defense ( and others) for [id number] Social History DateTypeDetailFacilityStart: 11-03-2023 End: 96-08-5419Lyhaost smoking status NHISEx-smoker (finding)[facility] Centertart: 40-26-0908CgfQypm (finding)[facility] Centertart: 74-57-0974Tjs Assigned At BirthMaleFOhio Valley Surgical HospitalTobacco smoking status NHISTobacco smoking consumption unknownNOMS HealthcareStart: 13-45-2071Jjk assigned at birthNot on fileNOKY HealthcareStart: 98-97-8958Ccxuif identityNot on fileCEDAR CITY HOSPITAL HealthcareHistory of tobacco use Current smokerNOMS HealthcareHistory of tobacco useCigarette SmokerNOMS HealthcareStart: 40-77-1541Lmmfxbz use and exposureSmokeless tobacco non-user [facility] HealthcareStart: 10-19-2024 End: 49-02-8392Qsijqfoye beverage intakeEx-drinker (finding)[facility] Start: 03-43-5382Goxtkfe of Social functionNOMS Healthcare Progress note 04-17-2025 Note Date & DeujNcoiAjmqmxve12-72-6311 NoteUT Cardiology - [facility] Subjective Desean Landry Jr. is [...] normal ventricular function, fixed inferior defect (prior VT vs. artifact), normal wall motion, no ischemia. [...] Update 07/08/2017: He was admitted recently to [facility] after falling and having [...] exertion. His main iss (more content not included)...[facility] History of Present illness Narrative 01-25-2025 Note Date & KurtOozuTejtokfi56-10-4263 History of Present illness Narrative* Home Luke, [facility] - 01/25/2025 9:15 AM EDT Images from [...] utilizing a nail nipper and electric bur nut grinder without incident. A sterile #15 blade [...] understanding. Home Luke DPM documented in this encounterNOKY Healthcare History of Present illness Narrative 10-19-2024 Note Date & WwyiCftjAqhfjcch86-29-5710 History of Present illness Narrative* Home Luke DPM - 10/19/2024 10:00 AM EDT Images from the original note were not included. Subjective Patient ID: Desean Landry Jr is a 83 y.o. 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 Has been bothersome for a couple of months. Pt states he gets his nails trimmed at wound care. ). HPI This is a new patient who presents to clinic today with concern of left great toe pain. Patient states that his nail is very thick and he typically gets them trimmed at the [facility]. It sounds like his toe has been [...] polyneuropathy associated with type 2 diabetes mellitus (CMS/[facility]) E11.42 2. 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 Onychomycosis B35.1 [...] utilizing a nail nipper and electric bur nut grinder without incident. A sterile #15 bladewas [...] understanding. Home Luke DPM [facility]Northern [facility] Dis[facility] 10-03-2024 Note Date & DuizSgpsZyfszwgp61-13-4953 Hospital Discharge instructionsAmbulatory Orders* Referral to Podiatry Time Frame: 10/03/24, Location: None Selected [facility] Work Phone: Evaluation note Note Date & TypeNoteFacilityEvaluation noteNo assessment information available [facility] Work Phone: Evaluation note Note Date & TypeNoteFacilityEvaluation note* Diagnosis Diabetic polyneuropathy associated with type 2 diabetes mellitus ([facility]/HCC)- Primary Onychodystrophy Other specified disease of nail Onychomycosis Dermatophytosis of nail Corns and callosities Paronychia of toe of left foot documented in this encounter [facility] Evaluation note Note Date & TypeNoteFacilityEvaluation note* Diagnosis Onychodystrophy- Primary Other specified disease of nail Onychomycosis Dermatophytosis of nail Corns and callosities Diabetic polyneuropathy associated with type 2 diabetes mellitus (HCC) documented in this encounter [facility] Healthcare Summary Purpose Family History No [...] and content) DATE CREATED AUTHOR 12/08/2017 [facility] DATE CREATED AUTHOR AUTHOR'S ORGANIZ ATION 05/18/2018 [facility] DATE CREATED AUTHOR AUTHOR'S ORGANIZ ATION 01/16/2021 [facility] DATE CREATED AUTHOR AUTHOR'S ORGANIZ ATION 06/06/2021 [facility] DATE CREATED AUTHOR AUTHOR'S ORGANIZ ATION 09/02/2022 [facility] DATE CREATED AUTHOR AUTHOR'S ORGANIZ ATION 01/26/2025 [facility] DATE CREATED AUTHOR AUTHOR'S ORGANIZ ATION 04/17/2025 [facility] Care Teams (unrecognized sec tion and content) Team Status: Active Member Role Status Dates Diogenes Casiano MD Primary Care Provider Active Team Status: Inactive Member Role Status Dates Diogenes Casiano MD Primary Care Provider Active Start: October 03, 2024 End: October 03, 2024Murray Mcallister ProviderActiveStart: October 03, 2024 End: October 03, 2024Team MemberRelationshipSpecialtyStart DateEnd Date Diogenes Casiano MD [address] [place] [address] PCP - [facility]Wal[facility] Medicine10/19/24Team MemberRelationshipSpecialtyStart DateEnd Date Diogenes Casiano MD [address] [place] [address] PCP - [facility]Wal[facility] Medicine10/19/24Team MemberRelationshipSpecialtyStart DateEnd Date Diogenes Casiano MD [address] [place] [address] PCP - GeneralFamily Medicine10/19/24Team MemberRelationshipSpecialtyStart DateEnd Date Diogenes Casiano MD [address] [place] [address] PCP - GeneralFamily Medicine10/19/24 Goals (unrecognized section and content) Goals may be documented in a n alternate section Reason for Visit (unrecogniz ed section and content) ReasonCommentsToenail Care83 yo ABALONE PROCESSOR presents 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 [employer] provides no warranty or guarantee of the accuracy or completeness of information in this document.
== END 2025-04-27 14:55 | disposition home or self-care (01) ==
LOC: WC 14:54
PROVIDERS: PCP Family Medicine; Visit Provider Physician Assistant
DX: I87.311 Chronic venous hypertension (idiopathic) with ulcer of right lower extremity (principal); L97.811 Non-pressure chronic ulcer of other part of right lower leg limited to breakdown of skin
CPT/HCPCS: 29580

== ENCOUNTER 2025-05-04 09:03 | Outpatient (OUT) | payer MEDICARE, OTHER, MEDICAID, SELFPAY ==
--- OUTSIDE RECORDS SUMMARY | 2025-05-03 09:00 | XMS_ITS | Encounter Summary ---
Author Organization [facility] Address [address] [place] [address] Care Team Providers Care Word Processing Supervisor Name Role Phone Vahid Garcia MD Primary Care Provider [phone] Reason for Visit * ReasonCommentsDM Foot CarePt is here today for diabetic foot careBS: 118 A1C:LV Dr. Garcia 75-97-7547FC: 9.5 Encounter Details DateTypeDepartmentCare Team (Latest Contact Info)Qejavkbfsgu61/19/2025 9:00 AM ESTProcedure Visit [facility] [address] [place] [address] Home Luke, DPStephania [address] [place], [place] [id number] Onychodystrophy (Primary Dx); Onychomycosis; Corns and callosities; Diabetic polyneuropathy associated with type 2 diabetes mellitus (HCC) Social History Tobacco UseTypesPacks/DayYears UsedDateSmoking Tobacco: FormerCigarettes Smokeless Tobacco: Never Tobacco Cessation:Counseling Given: Not Answered Alcohol UseStandard Drinks/WeekCommentsNot Currently0 (1 standard drink = 0.6 oz pure alcohol)Sex and Gender InformationValueDate RecordedSex Assigned at Not on fileLegal XlzJyag9208/27/2022 8:14 PM EDTGender IdentityNot on fileSexual OrientationNot on filedocumented as of this encounter Last Filed Vital Signs Vital SignReadingTime TakenCommentsBlood Pressure--Pulse--Temperature-- Respiratory Rate--Oxygen Saturation--Inhaled Oxygen Concentration--Ywyrqk21.4 kg (197 lb)05/03/2025 9:14 AM JSVHaguez252.3 cm (5' 9 )05/03/2025 9:14 AM ESTBody Mass Index29.0905/03/2025 9:14 AM ESTdocumented in this encounter Progress Notes * Home Weinstein Amol, DPM - 05/03/2025 9:00 AM EST Images from the original note were not included. Subjective Patient ID: Jovany Donohue Jr is a 84 y.o. male who presents for DM Foot Care (Pt is here today for diabetic foot care/BS: 118 A1C:/LV Dr. Garcia 04-24-2025/SS: 9.5). HPI Established patient returns to clinic for [...] not in acute distress. Comments: Accompanied by his daughter. Cardiovascular: Comments: DP pulse: 1/4 PT pulse: [...] utilizing a nail nipper and electric bur cutter grinder operator without incident. A sterile #15 blade was [...] understanding. Home Luke DPM documented in this encounter Plan of Treatment DateTypeDepartmentCare Team (Latest Contact Info)Lgxawthizzk37/23/2026 9:00 AM ESTProcedure Visit [facility] [address] [place] [address] Home Luke, DPM [address] [place] [address] documented as of this encounter Visit Diagnoses Diagnosis Onychodystrophy- Primary Other specified disease of nail Onychomycosis Dermatophytosis of nail Corns and callosities Diabetic polyneuropathy associated with type 2 diabetes mellitus (HCC) documented in this encounter Care Teams Team MemberRelationshipSpecialtyStart DateEnd Date Vahid Garcia MD [address] [place] [address] PCP - GeneralFamily Medicine10/19/24documented as of this encounter
--- OUTSIDE RECORDS SUMMARY | 2025-05-04 09:09 | XMS_ITS | Clinical Summary ---
Author Organization listedplaces [facility] Address [id number] [address] [place] [address] Care Team Providers Care Wildlife Management Professor Name Role Phone Vahid Garcia MD Primary Care Provider [phone] Allergies No known active allergies Medications MedicationSigDispense [...] cervical vertebra, unspecified fracture morphology, initial encounter ([facility])Take 1 capsule (300 mg total) by mouth every 8 (eight) hours.03/05/2022ctive sennosides-docusate sodium (SENOKOT-S) 8.6-50 mg Take 2 tablets by mouth nightly.03/05/2022ctive acetaminophen (TYLENOL EXTRA STRENGTH) 500 mg tablet Take 2 tablets (1,000 mg total) by mouth every 6 (six) hours as needed for pain. 30 tablet 03/05/2022ctive Active Problems ProblemNoted DateDiagnosed DateClosed nondisplaced fracture of sixth cervical ilsnbyge61/19/2022PAD (peripheral artery disease)03/23/2020Venous insufficiency (chronic) (peripheral)03/23/2020 Immunizations ImmunizationAdministration DatesNext DueInfluenza, Trivalent, Adjuvanted 03/21/2020Influenza, Omwwdanubvx30/20/2017Pneumococcal Conjugate 13-Valent 04/03/2017Tdap03/03/2022 Social History Tobacco UseTypesPacks/DayYears UsedDateSmoking Tobacco: NeverSmokeless Tobacco: NeverAlcohol UseStandard Drinks/WeekCommentsNot Currently0 (1 standard drink = 0.6 oz pure alcohol)guardian states he may be drinking some but is not supposed toChildcareAnswerDate RfzgjijdHksqimrqkHzmqaca00/12/2019EmploymentAnswerDate SoizhdfaXsqqsxhoyfGwybyzt98/12/2019Purpose - LifeAnswerDate RecordedPurpose and direction in belrMqfhtni10/11/2021Sex and Gender InformationValueDate Recorded Sex Assigned at BirthNot on fileLegal QdzZjqt6901/18/2015 11:54 AM EDTGender IdentityNot on fileSexual OrientationNot on file Last Filed Vital Signs Vital SignReadingTime TakenCommentsBlood Sqcdtxyw749/56003/05/2022 12:18 PM EDT Hryzu9282/21/2022 12:18 PM WCHGzimvjhhcdc08.8 ??C (98.2 ??F)03/05/2022 12:18 PM EDTRespiratory Xtvz195103/05/2022 12:18 PM EDTOxygen Qsjzobeqyq79%03/05/2022 12:18 PM EDTInhaled Oxygen Concentration--Hjblek15.6 kg (171 lb)03/03/2022 12:15 PM OHOPsyvmq763.3 cm (5' 9 )03/03/2022 12:15 PM EDTBody Mass Index25.25003/03/2022 12:15 PM EDT Plan of Treatment Health MaintenanceDue DateLast DoneCommentsDepression Kzfytkpxq00/14/1954Tobacco Qprkkmrax98/14/1954Zoster (Shingles) Vaccine (1 of 2)10/27/1991Fall Risk Exebhsnud67/14/2007RSV ( or age 60+ yrs) (1 - 1-dose 75+ series) 2016COVID-19 Vaccine ( - season)511/, 09/11/2020, 08/20/2020Influenza Gjxqhpd11/, 03/21/2020, 04/03/2017DTaP,Tdap and Td Vaccines (2 - Td or Tdap) Goals GoalPatient Goal TypeAssociated ProblemsRecent ProgressPatient-Stated?Author Return home Suzanne Hines RN Note: Evaluation of progress towards goal: Return home, after short term rehabilitation. Medical Devices ImplantedTypeAreaManufacturerDevice IdentifierShelf Expiration DateModel / Serial / LotLens Iol Ultrasert 17.0d - [id number] - [id number] Implanted:Qty: 1 on 06/29/2018 by Mojgan Garner MD at [facility]: [id number] 17.0 / [id number] / N/A Insurance Advance Directives TypeDate RecordedPatient RepresentativeExplanationLiving Will08/03/2017 11:48 AM [employer]WORK * Full Code (Latest Code Status on File) Date ActivatedDate InactivatedComments03/03/2022 5:54 AM03/05/2022 6:55 PM Care Teams Team MemberRelationshipSpecialtyStart DateEnd Date Vahid Garcia MD PCP - GeneralFamily Medicine06/29/18
--- OUTSIDE RECORDS SUMMARY | 2025-05-04 09:09 | XMS_ITS | Encounter Summary ---
Author Organization [facility] Address [address] [place] [address] Care Team Providers Care Paint Brush Maker Name Role Phone Vahid Garcia MD Primary Care Provider [phone] Encounter Details DateTypeDepartmentCare Team (Latest Contact Info)Sdcfmorhncz38/19/2025Travel Social History Tobacco UseTypesPacks/DayYears UsedDateSmoking Tobacco: FormerCigarettes Smokeless Tobacco: NeverAlcohol UseStandard Drinks/WeekCommentsNot Currently0 (1 standard drink = 0.6 oz pure alcohol)Sex and Gender InformationValueDate RecordedSex Assigned at BirthNot on fileLegal KckCotr2708/27/2022 8:14 PM EDT Gender IdentityNot on fileSexual OrientationNot on filedocumented as of this encounter Plan of Treatment DateTypeDepartmentCare Team (Latest Contact Info)Ldcitzsbuok09/23/2026 9:00 AM ESTProcedure Visit [facility] [address] [place] [phone] Home Luke DPStephania [address] [place] [address] documented as of this encounter Visit Diagnoses Not on filedocumented in this encounter Care Teams Team MemberRelationshipSpecialtyStart DateEnd Date Vahid Garcia MD [address] [place] [address] PCP - GeneralFamily Medicine10/19/24documented as of this encounter
--- OUTSIDE RECORDS SUMMARY | 2025-05-04 09:09 | XMS_ITS | Encounter Summary ---
Author Organization [facility] Address [address] [place] [address] Care Team Providers Care Fermenting Cellar Dropper Name Role Phone Vahid Garcia MD Primary Care Provider [phone] Encounter Details DateTypeDepartmentCare Team (Latest Contact Info)Vmossefknxc73/19/2025amboo flowsheet [facility] [address] [place] [address] Home Luke DPM [address] [place], [place] [phone] Social History Tobacco UseTypesPacks/DayYears UsedDateSmoking Tobacco: FormerCigarettes Smokeless Tobacco: NeverAlcohol UseStandard Drinks/WeekCommentsNot Currently0 (1 standard drink = 0.6 oz pure alcohol)Sex and Gender InformationValueDate RecordedSex Assigned at BirthNot on fileLegal QdeOknm3408/27/2022 8:14 PM EDT Gender IdentityNot on fileSexual OrientationNot on filedocumented as of this encounter Plan of Treatment DateTypeDepartmentCare Team (Latest Contact Info)Btlpgctqrtk20/23/2026 9:00 AM ESTProcedure Visit [facility] [address] [place] [address] Home Luke DPM [address] [place] [address] documented as of this encounter Visit Diagnoses Not on filedocumented in this encounter Care Teams Team MemberRelationshipSpecialtyStart DateEnd Date Vahid Garcia MD [address] [place] [phone] PCP - GeneralFamily Medicine10/19/24documented as of this encounter
--- OUTSIDE RECORDS SUMMARY | 2025-05-04 09:09 | XMS_ITS | Patient Health Record ---
Author Organization [facility] vices Address [address] [place] [id number] Care Team Providers Care Transmissions Systems Operator Name Role Phone Ryan Galvez Unavailable [phone] Allergies No Known Allergies Reason For Referral No Information Medications Medication SIG (Take, Route, Frequency, Duration) Notes Start Date End Date Status Spironolactone 25 MG Tablet TAKE 1 TABLE T BY MOUTH EVERY DAY Oral; Duration: 30 Days Not-Taking/PRNEliquis 5 MG TabletOral; Duration: 30 DaysActiveTrue Metrix Blood Glucose Test - StripUSE DIRECTED to test BLOOD SUGAR DAILY In Vitro; Duration: 50 DaysActiveVitamin DActiveGlimepiride 2 MG TabletOral; Duration: 30 AjcgHxpntiJeakpab59/15/2025ActiveSimvastatin 20 MG TabletOral; Duration: 30 Days Active Social History Tobacco Use: Social History Observation Description Date Details (start date - stop date) Never Smoker NA - NA Sex Assigned At : Social History Observation Description Sex Assigned At Male Social History Tobacco Use:Social InfoQuestionAnswerNotesTobacco Control (Standard)Tobacco use: Nonsmoker Vital Signs Heart Rate 61 /min 01/23/2025 Height-cm175.26 cm01/23/2025lood pressure heemvdqnr45 mm Hg01/23/2025Weight-kg 90.72 kg01/23/20251542Fuiphv54 in01/23/2025lood pressure wzvlgiyl088 mm Hg 01/23/20259090Jyuvvf195 lbs01/23/2025BMI29.53 kg/m201/23/2025 Encounters Encounter Location Date Provider Diagnosis [facility] [address] [place], [place] [phone] 10/27/2024 Ryan Galvez Encounter for scre ening for dental disorders Z13.84 ; Necrosis of pulp K04.1 ; Dental caries into dentine K02.62 and Encounter for dental examination and cleaning with abnormal findings Z01.21 [facility] [address] [place], [place] [phone] 11/09/2024 Ryan Galvez Encounter for dent al examination and cleaning with abnormal findings Z01.21 [facility] [address] [place], [place] [phone] 01/23/2025 Ryan Galvez Necrosis of pulp K 04.1 [facility] [address] [place] [id number] 01/23/2025 Ryan Galvez Assessments Encounter Date Diagnosis [...] Provider Name:Ryan Galvez , 05/17/2025 10:15:00 AM, [address] [place] [address], [phone], Insurance Providers Payer Name Payer Address Payer Phone Subscriber Number Group Number Insured Name Patient Relationship to Insured Coverage Start Date Coverage End Date DMedicaid [address] [place], [place] [id number] David Donohue - patient is the [id number] 2024 Medical (General) History Medical History History ICD Code Pacemaker-2022 Catarach SurgeryVenous Artery DiseaseDiabetes
--- OUTSIDE RECORDS SUMMARY | 2025-05-04 09:09 | XMS_ITS | Clinical Summary ---
Author Organization [facility] Address [address] [place] [address] Care Team Providers Care Shoe Treer Name Role Phone Vahid Garcia MD Primary Care Provider Allergies No known active allergies Medications MedicationSigDispense [...] breakfast.4Active Active Problems ProblemNoted DateDiagnosed DateCallus of toe3766Mpquoctcl17/01/2024Status post placement of cardiac jzwyylmfx00/20/6796Gedcozpbomz81/05/2023 Overview (06/19/2022): Added automatically from request for surgery [id number] Atrial qpygjqloglmf57/22/2022hronic obstructive lung npfgrsj7806/05/2022yspnea 06/05/20221530Zdkzghnowfslst96/22/2022Low back pain06/05/2022Longstanding persistent atrial ofjxhxrfymin73/07/2022rimary ocykfodfeiwy99/07/2022eripheral venous ztwxessqzndsy58/07/2022losed nondisplaced fracture of sixth cervical vertebra 03/03/2022Intermittent zbtrhdmaetyp66/29/2021PAD (peripheral artery disease) 03/23/2020 Encounters DateTypeDepartmentCare XouaUoyjwpdikbg62/03/2025 10:00 AM ESTOffice Visit [facility] [address] [place] [address] Jourdan Moore MD Permanent atrial fibrillation (CMS/HCC) (Primary Dx); Primary hypertension; Cardiac pacemaker in situ; Mixed hyperlipidemia; Peripheral venous iwahoceyganhc31/16/2025 11:45 AM EDTAncillary Procedure [facility] [address] [place] [address] Adjustment and management of cardiac kwiqtqsdo23/16/2025Orders Only [facility] [address] [place] [address] Damian Martinez MD from Last 3 Months [...] relatives?Twice a week09/02/2022How often do you attend hindu or hoahaoism services?More than 4 times per year09/02/2022o you belong to any clubs or organizations such as hindu groups, unions, fraternal or athletic emma ups, or school groups?Yes09/02/2022How often do you attend meetings of the clubs or organizations you belong to?More than 4 times per year09/02/2022re you , , , , never , or living with a partner? Peezbbhkx11/21/2023UDIT-CAnswerDate RecordedQ1: How often do you have a [...] housing, medical care, and heating?Not hard at all09/02/2022[facility] [place] [facility] - Occupational Stress QuestionnaireAnswerDate [...] steady place to sleep or slept in [facility] (including now)?No 09/02/2022Hunger Vital SignAnswerDate RecordedWithin the past 12 months, you worried that your food would run out before you got the money to buymore.Never true09/02/2022Within the past 12 months, the food you bought just didn't last and you didn't have money to get more.Never true09/02/2022Sex and Gender InformationValueDate RecordedSex Assigned at VvkgyGhow44/17/2025 8:22 PM EDT Legal HwrFpbm1112/11/2021 10:46 PM EDTGender HjdkgylbFvxo48/17/2025 8:22 PM EDT Sexual OrientationChoose not to empknfho41/17/2025 8:22 PM EDT Last Filed Vital Signs Vital SignReadingTime TakenCommentsBlood Pxggprxm069/6811 10:09 AM EST Hcutt627404/17/2025 10:09 AM VPOEstmdauseqp45 ??C (98.6 ??F)09/02/2022 4:00 PM EDT Respiratory Qxpx725709/02/2022 4:00 PM EDTOxygen Tyrgftyiqy52%04/17/2025 10:09 AM ESTInhaled Oxygen Concentration--Zkjbir77.5 kg (195 lb)04/17/2025 10:09 AM EST Sbnyeh574.3 cm (5' 9 )04/17/2025 10:09 AM ESTBody Mass Index28.8106/17/2024 10:09 AM EST Plan of Treatment Health MaintenanceDue DateLast DoneCommentsDiabetes: Hemoglobin A1C05/ Medicare Annual Wellness (AWV)2Diabetes: Retinopathy Screening 2Depression Isjyaujni29/14/1954Diabetes: Urine Protein Screening 1960Zoster Vaccines (1 of 2)10/27/1991Fall Risk Ndnfbavbt97/14/2007 Pneumococcal Vaccine: 50+ Years (2 of 2 - PPSV23, PCV20, or PCV21)05/29/2017 04/03/2017COVID-19 Vaccine ( - season)/, 05/07/2021, 09/11/2020, Additional history existsInfluenza Vaccine (#1)/, 03/21/2020, 04/03/2017Adult Emdlaxs25HIB VaccinesAged OutNo longer eligible based on patient's [...] Ra/Rv 59cm Implanted:Qty: 1 on 09/01/2022 by Dmaian Martinez MD at [facility] [id number] / [id number] / Pacer,[employer] - [id number] - [id number] Implanted:Qty: 1 on 09/01/2022 by Damian Martinez MD at [facility] [id number] / [id number] / Procedures Procedure NamePriorityDate/TimeAssociated DiagnosisCommentsCARDIAC DEVICE CHECK CHECK - GRUXFTYeocequ15/17/2025 10:24 AM EDT Adjustment and management of cardiac pacemaker CARDIAC DEVICE CHECK - REMOTE - OLCTXSDBASlaofrt55/16/2025 12:00 AM EDTfrom Last 3 Months Results [...] Team MemberRelationshipSpecialtyStart DateEnd Date Vahid Garcia MD [address] [place] [id number] [facility]04/18/22
--- OUTSIDE RECORDS SUMMARY | 2025-05-04 09:09 | XMS_ITS | Clinical Summary ---
Author Organization [facility] Address [address] [place] [address] Care Team Providers Care Synthetic Chemist Name Role Phone Vahid Garcia MD Primary Care Provider [phone] Allergies No known active allergies Medications MedicationSigDispense [...] mg by mouth at bedtimeActive Encounters DateTypeDepartmentCare MyaoJhtvkdyuyrr63/19/2025 9:00 AM ESTProcedure Visit [facility] [address] [place] [address] Home Luke DPM Onychodystrophy (Primary Dx); Onychomycosis; Corns and callosities; Diabetic polyneuropathy associated with type 2 diabetes mellitus (HCC)05/03/2025 Bamboo flowsheet [facility] [address] [place] [phone] Home Luke DPM 05/03/2025Travelfrom Last 3 Months Family History Medical HistoryRelationNameCommentsCancerMotherRelationNameStatusCommentsFather DeceasedMotherDeceased Social History Tobacco UseTypesPacks/DayYears UsedDateSmoking Tobacco: FormerCigarettes Smokeless Tobacco: Never Tobacco Cessation:Counseling Given: Not Answered Alcohol UseStandard Drinks/WeekCommentsNot Currently0 (1 standard drink = 0.6 oz pure alcohol)Sex and Gender InformationValueDate RecordedSex Assigned at Not on fileLegal NkhKzbm5508/27/2022 8:14 PM EDTGender IdentityNot on fileSexual OrientationNot on file Last Filed Vital Signs Vital SignReadingTime TakenCommentsBlood Uweiyutb238/7010 12:00 PM EDT Pulse--Temperature--Respiratory Rate--Oxygen Saturation--Inhaled Oxygen Concentration--Psfvfv43.4 kg (197 lb)05/03/2025 9:14 AM USDFksliz131.3 cm (5' 9 )05/03/2025 9:14 AM ESTBody Mass Index29.0905/03/2025 9:14 AM EST Plan of Treatment DateTypeDepartmentCare Team (Latest Contact Info)Dbcnzcphewd16/23/2026 9:00 AM ESTProcedure Visit [facility] [address] [place] [address] Home Luke, DPStephania [address] [place], [place] [phone] Insurance Care Teams Team MemberRelationshipSpecialtyStart DateEnd Vahid Garcia MD [address] [place] [address] PCP - GeneralFamely Medicine10/19/24
--- OUTSIDE RECORDS SUMMARY | 2025-05-04 09:11 | XMS_ITS | CCD ---
Author Organization [facility] Care Team Providers Care Senior Sharepoint Developer Name Role Phone ARPAN CAMACHO Unavailable Unavailable SAHRA GILMORE Unavailable Unavailable DIOGENES CASIANO Unavailable Unavailable DIOGENES REN Unavailable Unavailable LORI, RENDELL Unavailable Unavailable LORI, RENDELL Unavailable Unavailable JOSE ITALO ([employer]) Unavailable Unavailable LORI, RENDELL Unavailable Unavailable LORI, [...] Unavailable Diogenes Casiano MD Primary Care Provider [phone] HOME LUKE Attending Unavailable HOME LUKE Attending Unavailable DREAD WOLF Referring Unavailable DREAD WOLF Referring Unavailable DREAD WOLF Referring Unavailable DRAGAN PEPPER Attending Unavailable Medications Current Medications MedicationDrug Class(es)DatesSig (Normalized)Sig (Original)apixaban 5 mg oral tablet (5 sources)Factor Xa InhibitorStart: 39-46-9298mczl 1 tablet by mouth once daily Apixaban (Eliquis) 5 mg tablet Active 5 MG PO Daily January 10, 2021 12:00am aspirin 81 mg delayed release oral tablet (4 sources)Platelet Aggregation Inhibitor, Nonsteroidal Anti-inflammatory Drug take 1 tablet by mouth once dailyaspirin 81 MG EC tablet Take 81 mg by mouth Daily Activebumetanide 1 mg oral tablet (1 source)Loop DiureticStart: 70-58-2494ttim 1 tablet by mouth once daily Bumetanide 1 mg tablet Active 1 MG PO Daily January 10, 2021 12:00am cholecalciferol 0.025 mg oral capsule (4 sources)Vitamin Dtake 1 capsule by mouth once dailycholecalciferol (Vitamin D-3) 25 MCG (1000 UT) capsule Take 1,000 Units by mouth Daily Activeclotrimazole 10 mg/ml topical cream (1 source)Azole AntifungalStart: 32-73-9080Fiewrgjylucn (Antifungal (Clotrimazole)) 1 % cream Active 1 APPLIC TOPICAL Twice daily 45 14 November 03, 2023 12:00amglimepiride 2 mg oral tablet (4 sources)Sulfonylureatake 1 tablet by mouth before mealtimeglimepiride (Amaryl) 2 MG tablet Take 2 mg by mouth in the morning. Take before meals. Activehydrocortisone acetate 25 mg rectal suppository (1 source)CorticosteroidStart: 07-62-5851Exwjrfgdnokuvc Acetate 25 mg suppository Active [address] Twice daily January 10, 2021 12:00amhydrocortisone acetate 25 mg/ml / pramoxine hydrochloride 10 mg/ml topical cream (1 source)CorticosteroidStart: 22-53-8131Mwrsnarrocjmjj-Pramoxine 2.5-1 % cream Active 1 APPLIC TOPICAL Twice daily January 10, 2021 12:00amhyoscyamine sulfate 0.125 mg sublingual tablet (1 source)Start: 20-44-3147ynbm 1 tablet by mouth once dailyHyoscyamine Sulfate 0.125 mg tablet, sublingual Active 0.125 MG PO Daily January 10, 2021 12:00am lisinopril 5 mg oral tablet (1 source)Angiotensin Converting Enzyme InhibitorStart: 16-94-8626xnyp 1 tablet by mouth once dailyLisinopril 5 mg tablet Active 5 MG PO Daily January 10, 2021 12:00ammetFORMIN hydrochloride 500 mg oral tablet (1 source)BiguanideStart: 13-49-6459gyln 1 tablet by mouth twice dailyMetformin 500 mg tablet Active 500 MG PO Twice daily January 10, 2021 12:00ammetoprolol tartrate 50 mg oral tablet (1 source)beta-Adrenergic BlockerStart: 47-56-4915Kcedufgobh Tartrate 50 mg tablet Active 25 MG PO Twice daily January 10, 2021 12:00amsimvastatin 20 mg oral tablet (5 sources)HMG-CoA Reductase InhibitorStart: 42-46-6660vafv 1 tablet by mouth once dailySimvastatin 20 mg tablet Active 20 MG PO Daily January 10, 2021 12:00am spironolactone 50 mg oral tablet (4 sources)Aldosterone Antagonisttake 1 tablet by mouth once dailyspironolactone (Aldactone) 50 MG tablet Take 50 mg by mouth Daily Active Problems Active Problems Problem ClassificationProblemDateDocumented DateEpisodic/ChronicAlcohol-related disorders (1 source)Alcohol dependence with withdrawal, unspecified; Translations: [ALCOHOL DEPENDENCE WITH WITHDRAWAL,UNSPECIFIED]Onset: 94-96-2291FvihwswRlyagej dysrhythmias (1 source)Chronic atrial fibrillation; Translations: [CHRONIC ATRIAL FIBRILLATION]Onset: 76-71-8801QqcxyelZljpmnj dysrhythmias (4 sources)Bradycardia, unspecified; Translations: [BRADYCARDIA UNSPECIFIED] Onset: 03-81-0867NynrlwxeXrjawcb obstructive pulmonary disease and bronchiectasis (1 source)Chronic obstructive pulmonary disease, unspecified; Translations: [COPD UNSPECIFIED]Onset: 73-31-7310SywdsrwDsqxqkyqrh disorders (4 sources)Presence of cardiac pacemaker; Translations: [Encounter for adjustment and management of other partof cardiac pacemaker]Onset: 03-01-2025 ChronicCongestive heart failure; nonhypertensive (1 source)Unspecified diastolic (congestive) heart failure; Translations: [UNSPECIFIED DIASTOLIC HEART FAILURE]Onset: 78-63-6682UziiigaWfvsxqopnr and other anemia (1 source)Anemia, unspecified; Translations: [ANEMIA UNSPECIFIED]Onset: 06-42-0196IbmiesviPfovgpvk mellitus with complications (3 sources)Polyneuropathy due to type 2 diabetes mellitus; Translations: [Type 2 diabetes mellitus with diabetic polyneuropathy]35-33-0983TkvgpilLssyaqjk mellitus without complication (1 source)Other abnormal glucose; Translations: [OTHER ABNORMAL GLUCOSE]Onset: 75-91-5221YzrlqlodGolqpfltz of lipid metabolism (4 sources)Hyperlipidemia, unspecified; Translations: [Mixed hyperlipidemia] Onset: 56-99-5959GjasscwGscuxzmuq hypertension (7 sources)Essential (primary) hypertension; Translations: [ESSENTIAL (PRIMARY) HYPERTENSION]Onset: 32-28-2309OxwgdlxHhtzlgxx Injury - Fall (1 source)Other fall on same level, initial encounter; Translations: [OTHER FALL ON SAME LEVEL, INITIAL ENCOUNTER]Onset: 66-28-3339Xoctuyufkgzk conditions of male genital organs (1 source)Balanitis; Translations: [Balanitis]69-72-6394NnnfrmjZtxxqns and fatigue (1 source)Other fatigue; Translations: [OTHER FATIGUE]Onset: 10-76-4345Mzlkywxf Mycoses (3 sources)Onychomycosis; Translations: [Tinea unguium]55-86-6917Jiqfyrfx Nutritional deficiencies (1 source)Vitamin D deficiency, unspecified; Translations: [VITAMIN D DEFICIENCY UNSPECIFIED]Onset: 30-07-4846JvxnhihBgpqs diseases of veins and lymphatics (2 sources)Venous insufficiency (chronic) (peripheral); Translations: [Venous insufficiency (chronic) (peripheral)]Onset: 30-63-5066LmozruyoKmjrw lower respiratory disease (1 source)Other nonspecific abnormal finding of lung field; Translations: [Other nonspecific abnormal findingof lung field]Onset: 62-87-4939DidpgksoUgljp lower respiratory disease (1 source)Dyspnea, unspecified; Translations: [DYSPNEA UNSPECIFIED]Onset: 41-35-8638IdghwmhjWbwms non-traumatic joint disorders (1 source)Pain in unspecified joint; Translations: [PAIN IN UNSPECIFIED JOINT] Onset: 04-12-2766FyredjkpUfwzc screening for suspected conditions (not mental disorders or infectious disease) (1 source)Encounter for screening for malignant neoplasm of prostate; Translations: [ENC SCREEN MALIG NEOPLASM PROSTATE]Onset: 57-41-4016KlueitopBgtqf skin disorders (1 source)Callosity on toe; Translations: [Corns and callosities]10-03-2024 EpisodicOther skin disorders (3 sources)Dystrophia unguium; Translations: [Nail dystrophy]29-92-0317Iwlbvivs Other skin disorders (3 sources)Callosity; Translations: [Corns and callosities]59-84-0612Kkgpmxtj Other upper respiratory infections (1 source)Acute sinusitis, unspecified; Translations: [ACUTE SINUSITIS UNSPECIFIED]Onset: 33-22-7614MwxgoydiDggcebtryt and visceral atherosclerosis (1 source)Peripheral vascular disease, unspecified; Translations: [PERIPHERAL VASCULAR DISEASE UNS]Onset: 04-73-8092YmqfpyjPsgnbhcg; pneumothorax; pulmonary collapse (5 sources)Pleural effusion, not elsewhere classified; Translations: [Pleural plaque without asbestos]Onset: 50-73-7069NizvngcqPvoh and subcutaneous tissue infections (2 sources)Paronychia of toe of left foot; Translations: [Cellulitis of left toe]88-06-4981TiyhxsszNcabpksbjqht (2 sources)Unknown / UNK(Unknown)Onset: 10-13-8939Prrsqfwibjun (4 sources)CONTACT W/AND (SUSP) EXPOS COVID-19; Translations: [CONTACT W/AND (SUSP) EXPOS COVID-19]Onset: 88-95-7464Emxdxldnjjng (2 sources)Permanent atrial fibrillation; Translations: [Permanent atrial fibrillation]Onset: 06-05-2022 Past or Other Problems Problem ClassificationProblemDateDocumented DateEpisodic/ChronicE Codes: Fall (1 source)Unspecified fall, initial encounter; Translations: [UNSPECIFIED FALL INITIAL ENCOUNTER]Onset: 53-82-9733KzmrruypWfdbnypezw obstruction without hernia (4 sources)Partial intestinal obstruction, unspecified as to cause; Translations: [PART INTESTINAL OBST UNS ASTO CAU]Onset: 01-68-3599Ceumrtjb Nonmalignant breast conditions (4 sources)Unspecified lump in right breast, subareolar; Translations: [UNSPEC LUMP IN RT BREAST SUBAREOLAR]Onset: 54-77-3209KsatrghrKdva wounds of head; neck; and trunk (1 source)Laceration without foreign body of scalp, initial encounter; Translations: [LACERATION W/O FB SCALPINITIAL ENC]Onset: 13-10-8120IigduhlvBzijl aftercare (1 source)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; Translations: [TABBER (CURRENT) USE OF ANTICOAGULANTS]Onset: 81-12-6906HwipulkoAqzab aftercare (1 source)FPC (current) use of oral hypoglycemic drugs; Translations: [TABBER USE ORAL HYPOGLYCEMIC DX]Onset: 45-56-2874YxdgkglnLpjsu aftercare (1 source)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; Translations: [OTH ASSISTED CURRENT DRUG THERAPY]Onset: 91-41-4032VavmvgjbOblxg connective tissue disease (3 sources)Rhabdomyolysis; Translations: [RHABDOMYOLYSIS]Onset: 06-13-2017 EpisodicOther fractures (1 source)Unspecified displaced fracture of sixth cervical vertebra, initial encounter for closed fracture; Translations: [UNS DSPL FX 6TH CV INIT JAY FX] Onset: 10-80-0863NlhcnjwrNedif injuries and conditions due to external causes (3 sources)Unspecified injury of head, initial encounter; Translations: [UNSPECIFIED INJURY HEAD INITIAL ENC]Onset: 01-92-6225HvcbqbtzTbtwr upper respiratory disease (1 source)Other diseases of bronchus, not elsewhere classified; Translations: [Other diseases of bronchus, not elsewhere classified]Onset: 51-54-2723Ivfcouwx Screening or history of mental health and substance abuse (2 sources)Personal history of nicotine dependence; Translations: [PERSONAL HISTORY OF NICOTINE DEPENDENCE]Onset: 94-18-6077ItyxdrjfKgtvlfmwocq; intervertebral disc disorders; other back problems (1 source)Dorsalgia, unspecified; Translations: [DORSALGIA, UNSPECIFIED]Onset: 07-36-8340YgvywxizIvwrganxaeb injury; contusion (1 source)Contusion of scalp, initial encounter; Translations: [CONTUSION SCALP INITIAL ENCOUNTER]Onset: 69-57-7287UduzunoeArpridinmcsx (1 source)CONTACT W/AND (SUSP) EXPOS COVID-19; Translations: [CONTACT W/AND (SUSP) EXPOS COVID-19]Onset: 08-20-2022 Results Test NameValueInterpretationReference RangeFacilityOffice Visiton 04-17-2025 Follow-up [id number] Desean Landry Jr. 1940 M Date Provider Department Center 04/17/2025 DRAGAN BALDWIN CARD [facility] Family History Problem Relation Age of Onset Cancer Mother Diabetes Brother Other Brother Family Status - Relation Status Age at Mother Brother Level of Service:[address] CT OFFICE/OUTPATIENT ESTABLISHED MOD [facility] Onlyon 53-34-2907Dzuxhg [id number] Desean Landry Jr. 1940 M Date Provider Department Center 02/28/2025 [facility] Family History Problem Relation Age of Onset Cancer Mother Family Status - Relation Status Age at MotherNormalUniversity Kettering HealthCBC AUTO DIFFon [id number] # 0.1 103/ulNormal0.0-0.1[place] [facility] HospitalComment on above:Performed By: #### CBC #### [facility] [address] [address] [address] Artem Choesophils/100 WBC (Bld)1.0 %Normal0.2-2.0The [facility] Comment on above:Performed By: #### CBC #### [facility] [address] [address] [address] Artem López #0.2 103/ulNormal0.0-0.7The [facility] HospitalComment on above: Performed By: #### CBC #### [facility] [address] [address] [address] Artem Daveosinophils/100 WBC (Bld)2.0 %Normal0.9-7.0[facility] Comment on above:Performed By: #### CBC #### [facility] [address] [place] [address] Dr. Artem Daverythrocyte distribution width (RBC) [Ratio]13.1 %Gxzfgz83.0-15.0 [place] [facility] HospitalComment on above:Performed By: #### CBC #### [facility] [address] [place] [address] Dr. Artem RojasHematocrit (Bld) [Volume fraction]43.8 %Lkpxwp76.0-54.0The [facility] HospitalComment on above:Performed By: #### CBC #### [facility] [address] [place] [address] Dr. Artem RojasHemoglobin (Bld) [Mass/Vol]14.5 g/lWIllvqt14.0-18.0The [facility] HospitalComment on above:Performed By: #### CBC #### [facility] [address] [place] [address] Dr. Artem De Oliveira #0.07 10e3/ulCritically high0.00-0.03The [facility] Comment on above:Performed By: #### CBC #### [facility] [address] [place] [address] Dr. Artem De Oliveira %0.8 %Critically high0.0-0.5The [facility] HospitalComment on above:Performed By: #### CBC #### [facility] [address] [place] [address] Dr. Artem MillsH #1.8 103/ulNormal1.2-3.8The [facility] HospitalComment on above:Performed By: #### CBC #### [facility] [address] [place] [address] Dr. Artem Avalosmphocytes/100 WBC (Bld)20.0 %Critically low20.5-60.0The [facility] HospitalComment on above:Performed By: #### CBC #### [facility] [address] [place] [address] Dr. Artem Ruelas DIFF REQNONormalThe [facility] HospitalComment on above: Performed By: #### CBC #### [facility] [address] [place] [address] Dr. Artem Vega (RBC) [Entitic mass]30.0 bvIwsela92.9-34.0The [facility] HospitalComment on above:Performed By: #### CBC #### [facility] [address] [place] [address] Dr. Artem Vega (RBC) [Mass/Vol]33.1 g/lGAzxoqz92.9-35.2The [facility] HospitalComment on above:Performed By: #### CBC #### [facility] [address] [place] [address] Dr. Artem Vega (RBC) [Entitic vol]90.7 kCNjwqlg98.0-94.0The [facility] HospitalComment on above:Performed By: #### CBC #### [facility] [address] [place] [address] Dr. Artem Bowen #0.8 103/ulNormal0.3-0.8The [facility] HospitalComment on above:Performed By: #### CBC #### [facility] [address] [place] [address] Dr. Artem Cooleyocytes/100 WBC (Bld)8.7 %Normal1.7-12.0The [facility] Comment on above:Performed By: #### CBC #### [facility] [address] [place] [address] Dr. Artem Farrell #6.1 103/ulNormal1.4-6.5The [facility] HospitalComment on above:Performed By: #### CBC #### [facility] [address] [place] [address] Dr. Artem Dossutrophils/100 WBC (Bld)67.5 %Dkatui11.0-75.0The [facility] HospitalComment on above:Performed By: #### CBC #### [facility] [address] [place] [address] Dr. Artem RojasPlatelet mean volume (Bld) [Entitic vol]9.7 fLNormal9.5-13.5The [facility] HospitalComment on above:Performed By: #### CBC #### [facility] [address] [place] [address] Dr. Artem RojasPLT333 103/bzTmgzad156-197Ojm [facility] HospitalComment on above: Performed By: #### CBC #### [facility] [address] [place] [address] Dr. Artem RojasRBC4.83 106/ulNormal4.70-6.10The [facility] HospitalComment on above:Performed By: #### CBC #### [facility] [address] [place] [address] Dr. Artem RojasWBC9.0 103/ulNormal4.0-11.0The [facility] HospitalComment on above: Performed By: #### CBC #### [facility] [address] [place] [address] Dr. Artem RojasPROF CHEM 8 (BAS METB)on 21-71-3787Yqknu gap [Moles/Vol]9.4 mmol/LNormalEast [place] City HospitalComment on above:Performed By: #### PTT, PT #### [facility] [address] [place] [address] Dr. Artem RojasCalcium [Mass/Vol]9.4 mg/dLNormal8.5-10.1The [facility] Comment on above:Performed By: #### PTT, PT #### [facility] [address] [place] [address] Dr. Artem RojasChloride [Moles/Vol]105 mmol/EYfwqzc64-763Wbr [facility] Comment on above:Performed By: #### PTT, PT #### [facility] [address] [place] [address] Dr. Artem RojasCO2 [Moles/Vol]29.3 mmol/HHsfgig29.0-32.0The [facility] Comment on above:Performed By: #### PTT, PT #### [facility] [address] [address] [address] Artem RojasCreatinine [Mass/Vol]1.06 mg/dLNormal0.70-1.30The [facility] Northment on above:Performed By: #### PTT, PT #### [facility] [address] [address] [address] Artem DaveGFR-AF CYPRIOT>60Normal>=60The [facility] HospitalComment on above:Performed By: #### PTT, PT #### [facility] [address] [address] [address] Artem DaveGFR-NON AF CYPRIOT>60Normal>=60The [facility] HospitalComment on above:Performed By: #### PTT, PT #### [facility] [address] [address] [address] Artem RojasGlucose [Mass/Vol]125 mg/dLCritically sdvr45-307Cjm [facility] Northment on above:Performed By: #### PTT, PT #### [facility] [address] [address] [address] Artem RojasPotassium [Moles/Vol]4.3 mmol/LNormal3.5-5.1The [facility] Comment on above:Performed By: #### PTT, PT #### [facility] [address] [address] [address] Artem RojasSodium [Moles/Vol]139 mmol/LXvcwyh305-451Mbr [facility] Comment on above:Performed By: #### PTT, PT #### [facility] [address] [address] [address] Artem RojasUrea nitrogen [Mass/Vol]20.0 mg/dLCritically high7.0-18.0The [facility] HospitalComment on above:Performed By: #### PTT, PT #### [facility] [address] [address] [address] Artem RojasUrea nitrogen/Creatinine [Mass ratio]18.9 mg/mgNormalThe [facility] HospitalComment on above:Performed By: #### PTT, PT #### [facility] [address] [place] [address] Dr. Artem RojasCovid-19 PCR ([facility])on 57-06-5616XXQN-CoV-2 (COVID-19) RNA MONICA+probe Ql (Unsp spec)Not detectedNormalNOT DETECTEDThe [facility] Comment on above:Result Comment: When diagnostic [...] for this test is supported by the [place] of Health and Human Service's declaration that [...] be used).Performed By: #### PTT, PT #### [facility] [address] [place] [address] Dr. Artem Yañez A AND B AGon 70-18-6437NEFNWKOVMXHWA BELOWProvidence HospitalComment on above:Result Comment: Negative for Flu A protein angiten. Infection due to Flu A cannot be ruled out. FluA angiten in the sample may be below the detection limit of the test.Performed By: #### PTT, PT #### [facility] [address] [place] [address] Dr. Artem RiveraUBNEGTIERNEY [facility] on above: Result Comment: Negative for Flu B protein antigen. Infection due to Flu B cannot be ruled out. FluB antigen in the sample may be below the detection limit of the test.Performed By: #### PTT, PT #### [facility] [address] [place] [address] Dr. Artem Damon AGNegativeNormalNEGATIVE SEE COMMENTThe [facility] HospitalComment on above:Performed By: #### PTT, PT #### [facility] [address] [place] [address] Dr. Artem Alexander AGNegativeNormalNEGATIVE SEE COMMENTThe [facility] HospitalComment on above:Performed By: #### PTT, PT #### [facility] [address] [place] [address] Dr. Artem RojasINSULINon 03-22-5252Rminrra27.3 uIU/mLNormal2.6-24.9The [facility] HospitalComment on above:Performed By: #### PTT, PT #### [facility] [address] [place] [address] Dr. Artem Erwin 57-86-5146Bdwlmyhxpzx peptide B (Bld) [Mass/Vol]1826.0 pg/mLCritically high<=1,800.0The [facility] HospitalComment on above:Performed By: #### CMP, BNP, URIC, TSH, T7, LIPID #### [facility] [address] [place] [address] Dr. Artem Cage AUTO DIFFon [id number] #0.1 103/ulNormal0.0-0.1The [facility] HospitalComment on above:Performed By: #### PTT, PT #### [facility] [address] [place] [address] Dr. Artem RojasBasophils/100 WBC (Bld)1.0 %Normal0.2-2.0The [facility] Comment on above:Performed By: #### PTT, PT #### [facility] [address] [place] [address] Dr. Artem López #0.2 103/ulNormal0.0-0.7The [facility] HospitalComkarmanos cancer center on above: Performed By: #### PTT, PT #### [facility] [address] [place] [address] Dr. Artem Daveosinophils/100 WBC (Bld)2.4 %Normal0.9-7.0The [facility] Comment on above:Performed By: #### PTT, PT #### [facility] [address] [place] [address] Dr. Artem Daverythrocyte distribution width (RBC) [Ratio]13.8 %Yncrmx88.0-15.0 The [facility] HospitalComment on above:Performed By: #### PTT, PT #### [facility] [address] [place] [address] Dr. Artem RojasHematocrit (Bld) [Volume fraction]44.1 %Xgxncz06.0-54.0The [facility] HospitalComment on above:Performed By: #### PTT, PT #### [facility] [address] [place] [address] Dr. Artem RojasHemoglobin (Bld) [Mass/Vol]14.5 g/kKIfpbve47.0-18.0The [facility] HospitalComment on above:Performed By: #### PTT, PT #### [facility] [address] [place] [address] Dr. Artem De Oliveira #0.02 10e3/ulNormal0.00-0.03The [facility] HospitalComment on above:Performed By: #### PTT, PT #### [facility] [address] [place] [address] Dr. Artem De Oliveira %0.2 %Normal0.0-0.5The [facility] HospitalComment on above: Performed By: #### PTT, PT #### [facility] [address] [place] [address] Dr. Artem MillsH #2.1 103/ulNormal1.2-3.8The [facility] HospitalComment on above:Performed By: #### PTT, PT #### [facility] [address] [place] [address] Dr. Artem Avalosmphocytes/100 WBC (Bld)24.3 %Kryknx81.5-60.0The [facility] HospitalComment on above:Performed By: #### PTT, PT #### [facility] [address] [place] [address] Dr. Artem Ruelas DIFF REQNONormalThe [facility] HospitalComment on above: Performed By: #### PTT, PT #### [facility] [address] [place] [address] Dr. Artem Vega (RBC) [Entitic mass]30.3 bzCzbsrj08.9-34.0The [facility] HospitalComment on above:Performed By: #### PTT, PT #### [facility] [address] [place] [address] Dr. Artem Vega (RBC) [Mass/Vol]32.9 g/dYJqpfvm25.9-35.2The [facility] HospitalComment on above:Performed By: #### PTT, PT #### [facility] [address] [place] [address] Dr. Artem Vega (RBC) [Entitic vol]92.1 eBTasyng76.0-94.0The [facility] HospitalComment on above:Performed By: #### PTT, PT #### [facility] [address] [place] [address] Dr. Artem Bowen #0.8 103/ulNormal0.3-0.8The [facility] HospitalComment on above:Performed By: #### PTT, PT #### [facility] [address] [place] [address] Dr. Artem Cooleyocytes/100 WBC (Bld)9.0 %Normal1.7-12.0The [facility] Comment on above:Performed By: #### PTT, PT #### [facility] [facility] [address] [place] [address] Dr. Artem Farrell #5.6 103/ulNormal1.4-6.5The [facility] HospitalComment on above:Performed By: #### PTT, PT #### [facility] [address] [place] [address] Dr. Artem Dossutrophils/100 WBC (Bld)63.1 %Vxnljt11.0-75.0The [facility] HospitalComment on above:Performed By: #### PTT, PT #### [facility] [address] [place] [address] Dr. Artem Linderlet mean volume (Bld) [Entitic vol]10.0 fLNormal9.5-13.5The [facility] HospitalComment on above:Performed By: #### PTT, PT #### [facility] [address] [place] [address] Dr. Artem RojasPLT193 103/waXqtgmc185-220Lpl [facility] HospitalComment on above: Performed By: #### PTT, PT #### [facility] [address] [place] [address] Dr. Artem RojasRBC4.79 106/ulNormal4.70-6.10The [facility] HospitalComment on above:Performed By: #### PTT, PT #### [facility] [address] [place] [address] Dr. Artem RojasWBC8.8 103/ulNormal4.0-11.0The [facility] HospitalComment on above: Performed By: #### PTT, PT #### [facility] [address] [place] [address] Dr. Artem RojasFRERIK THYROXINE INDEX T7on 04-13-5455SEE7.62Jfspiw8.30-4.50The [facility] HospitalComment on above:Performed By: #### CMP, BNP, URIC, TSH, T7, LIPID #### [facility] [address] [place] [address] Dr. Artem RojasT3U35.0 %Gtmwju64.0-40.0The [facility] HospitalComment on above: Performed By: #### CMP, BNP, URIC, TSH, T7, LIPID #### [facility] [address] [place] [address] Dr. Artem RojasT4 [Mass/Vol]7.20 ug/dLNormal4.50-12.10The [facility] on above:Performed By: #### CMP, BNP, URIC, TSH, T7, LIPID #### [facility] [address] [address] [address] Artem RojasGLYCOHEMOGLOBIN A1Con [id number] RECOMMENDATIONSEE BELOWMercy Health Anderson HospitalComkarmanos cancer center on above:Result Comment: ADA RECOMMENDED LIMIT 4.0 - 6.0 ADA THERAPEUTIC TARGET < 7.0 ACTION SUGGESTED > 7.0Performed By: #### A1C #### [facility] [address] [address] [address] Artem RojasGlucose [Mass/Vol]128 mg/dLNoBlanchard Valley Health System Bluffton HospitalComkarmanos cancer center on above:Performed By: #### A1C #### [facility] [address] [place] [address] Dr. Artem RojasHbA1c (Bld) [Mass fraction]6.1 %Normal4.5-6.2[facility] HospitalComkarmanos cancer center on above:Performed By: #### A1C #### [facility] [address] [place] [address] Dr. Artem RojasLIPID PROFILEon [id number]-HDL RATIO NORMSEE [facility] NorthComkarmanos cancer center on above:Result Comment: 3.3 - 4.4 LOW RISK 4.4 - 7.1 AVERAGE RISK 7.1 - 11.0 MODERATE RISK >11.0 HIGH RISKPerformed By: #### CMP, BNP, URIC, TSH, T7, LIPID #### [facility] [address] [place] [address] Dr. Artem RojasCholesterol [Mass/Vol]157 mg/dLNormal<=200The [facility] Comment on above:Performed By: #### CMP, BNP, URIC, TSH, T7, LIPID #### [facility] [address] [place] [address] Dr. Artem RojasCholesterol in HDL [Mass/Vol]51 mg/lRWmjjvv37-15Txy [facility] on above:Performed By: #### CMP, BNP, URIC, TSH, T7, LIPID #### [facility] [address] [place] [address] Dr. Artem RojasCholesterol in LDL [Mass/Vol]86.6 mg/dLNormalThe [facility] HospitalComment on above:Performed By: #### CMP, BNP, URIC, TSH, T7, LIPID #### [facility] [address] [place] [address] Dr. Artem RojasCholestercarmen.total/Cholesterol in HDL [Mass ratio]3.1 {ratio} NormalThe [facility]. [facility] HospitalComment on above:Performed By: #### CMP, BNP, URIC, TSH, T7, LIPID #### [facility] [address] [place] [address] Dr. Artem Stacy NORMAL> or = 60 mg/dl - LOW CARDIOVASCULAR RISK <40 mg/dl - HIGH CARDIOVASCULAR RISKProvidence HospitalComment on above:Performed By: #### CMP, BNP, URIC, TSH, T7, LIPID #### [facility] [address] [place] [address] Dr. Artem Mensah CALC NORMALSEE BELOWProvidence HospitalComment on above:Result Comment: <100 mg/dl OPTIMAL 100 - 129 mg/dl NEAR OR ABOVE OPTIMAL 130 - 159 mg/dl BORDERLINE HIGH 160 - 189 mg/dl HIGH >190 mg/dl VERY HIGH Performed By: #### CMP, BNP, URIC, TSH, T7, LIPID #### [facility] [address] [place] [address] Dr. Artem RojasTriglyceride [Mass/Vol]97 mg/dLNormal<=150The [facility] Comment on above:Performed By: #### CMP, BNP, URIC, TSH, T7, LIPID #### [facility] [address] [place] [address] Dr. Artem BhattiLDL CALC19.4 mg/dLNoBlanchard Valley Health System Bluffton HospitalComment on above: Performed By: #### CMP, BNP, URIC, TSH, T7, LIPID #### [facility] [address] [place] [address] Dr. Artem Oseguera 14(COMP METB)on [id number] [Mass/Vol]3.5 g/dLNormal 3.4-5.0The [facility] HospitalComment on above:Performed By: #### CMP, BNP, URIC, TSH, T7, LIPID #### [facility] [address] [place] [address] Dr. Artem RojasAlbumin/Globulin [Mass ratio]1.1 {ratio}NormalThe [facility] on above:Performed By: #### CMP, BNP, URIC, TSH, T7, LIPID #### [facility] [address] [place] [address] Dr. Artem Hernandez [Catalytic activity/Vol]70 U/KBiirko12-338Gbh [facility] HospitalComkarmanos cancer center on above:Performed By: #### CMP, BNP, URIC, TSH, T7, LIPID #### [facility] [address] [place] [address] Dr. Artem Coulter [Catalytic activity/Vol]19 U/NDefprj65-72Djn [facility] Northment on above:Performed By: #### CMP, BNP, URIC, TSH, T7, LIPID #### [facility] [address] [place] [address] Dr. Artem Diallo gap [Moles/Vol]11.7 mmol/LNormalThe [facility] Comment on above:Performed By: #### CMP, BNP, URIC, TSH, T7, LIPID #### [facility] [address] [place] [address] Dr. Artem Aponte [Catalytic activity/Vol]18 U/UKqqpxx42-26Jqo [facility] Northment on above:Performed By: #### CMP, BNP, URIC, TSH, T7, LIPID #### [facility] [address] [place] [address] Dr. Artem RojasBilirubin [Mass/Vol]0.5 mg/dLNormal0.2-1.0The [facility] Comment on above:Performed By: #### CMP, BNP, URIC, TSH, T7, LIPID #### [facility] [address] [place] [address] Dr. Artem RojasCalcium [Mass/Vol]9.3 mg/dLNormal8.5-10.1[facility] Comment on above:Performed By: #### CMP, BNP, URIC, TSH, T7, LIPID #### [facility] [address] [address] [address] Artem RojasChloride [Moles/Vol]105 mmol/IEdqymp02-510Rfb [facility] Comment on above:Performed By: #### CMP, BNP, URIC, TSH, T7, LIPID #### [facility] [address] [place] [address] Dr. Artem RojasCO2 [Moles/Vol]29.7 mmol/ZFgmpbr33.0-32.0The [facility] Comment on above:Performed By: #### CMP, BNP, URIC, TSH, T7, LIPID #### [facility] [address] [place] [address] Dr. Artem RojasCreatinine [Mass/Vol]0.87 mg/dLNormal0.70-1.30The [facility] HospitalComment on above:Performed By: #### CMP, BNP, URIC, TSH, T7, LIPID #### [facility] [address] [place] [address] Dr. Artem DaveGFR-AF CYPRIOT>60Normal>=60The [facility] HospitalComment on above:Performed By: #### CMP, BNP, URIC, TSH, T7, LIPID #### [facility] [address] [place] [address] Dr. Artem DaveGFR-NON AF CYPRIOT>60Normal>=60The [facility] HospitalComment on above:Performed By: #### CMP, BNP, URIC, TSH, T7, LIPID #### [facility] [address] [place] [address] Dr. Artem RojasGlobulin (S) [Mass/Vol]3.3 g/dLNormalThe [facility] HospitalComment on above:Performed By: #### CMP, BNP, URIC, TSH, T7, LIPID #### [facility] [address] [place] [address] Dr. Artem RojasGlucose [Mass/Vol]118 mg/dLCritically yxcb54-080Qtv [facility] HospitalComment on above:Performed By: #### CMP, BNP, URIC, TSH, T7, LIPID #### [facility] [address] [place] [address] Dr. Artem RojasPotassium [Moles/Vol]4.4 mmol/LNormal3.5-5.1The [facility] Comment on above:Performed By: #### CMP, BNP, URIC, TSH, T7, LIPID #### [facility] [address] [place] [address] Dr. Artem RojasProtein [Mass/Vol]6.8 g/dLNormal6.4-8.2The [facility] Comment on above:Performed By: #### CMP, BNP, URIC, TSH, T7, LIPID #### [facility] [address] [place] [address] Dr. Artem RojasSodium [Moles/Vol]142 mmol/SWckvag668-714Abp [facility] Comment on above:Performed By: #### CMP, BNP, URIC, TSH, T7, LIPID #### [facility] [address] [place] [address] Dr. Artem RojasUrea nitrogen [Mass/Vol]19.0 mg/dLCritically high7.0-18.0The [facility] HospitalComment on above:Performed By: #### CMP, BNP, URIC, TSH, T7, LIPID #### [facility] [address] [place] [address] Dr. Artem Church nitrogen/Creatinine [Mass ratio]21.8 mg/mgNormalThe [facility] HospitalComment on above:Performed By: #### CMP, BNP, URIC, TSH, T7, LIPID #### [facility] [address] [place] [address] Dr. Artem Adams [id number] uIU/mLNormal0.358-3.740[facility] HospitalComment on above:Performed By: #### CMP, BNP, URIC, TSH, T7, LIPID #### [facility] [address] [place] [address] Dr. Artem RojasURIC ACID SERUMon [id number] [Mass/Vol]5.8 mg/dLNormal 3.5-7.2The [facility] HospitalComment on above:Performed By: #### CMP, BNP, URIC, TSH, T7, LIPID #### [facility] [address] [place] [address] Dr. Artem RojasVITAMIN D 25 OHon [id number] D 25-OH65.5 ng/mLNormalEast Liverpool City HospitalComment on above:Performed By: #### PTT, PT #### [facility] [address] [place] [address] Dr. Artem Bailey D RANGESSEE BELOWProvidence HospitalComment on above: Result Comment: <20 ng/mL Vit D deficient 20 - <30 ng/mL Vit D insufficient 30 - 100 ng/mL Vit D sufficient >100 ng/mL Potential ToxicityPerformed By: #### PTT, PT #### [facility] [address] [place] [address] Dr. Artem RosarioC AUTO DIFFon [id number] #0.1 103/ulNormal0.0-0.1The [facility] HospitalComment on above:Performed By: #### PTT, PT #### [facility] [address] [place] [address] Dr. Artem RojasBasophils/100 WBC (Bld)0.5 %Normal0.2-2.0[facility] Comment on above:Performed By: #### PTT, PT #### [facility] [address] [place] [address] Dr. Artem López #0.0 103/ulNormal0.0-0.7The [facility] HospitalComment on above: Performed By: #### PTT, PT #### [facility] [address] [place] [address] Dr. Artem Daveosinophils/100 WBC (Bld)0.1 %Critically low0.9-7.0The [facility] HospitalComment on above:Performed By: #### PTT, PT #### [facility] [address] [place] [address] Dr. Artem Daverythrocyte distribution width (RBC) [Ratio]12.9 %Kxnhop21.0-15.0 The [facility] HospitalComment on above:Performed By: #### PTT, PT #### [facility] [address] [place] [address] Dr. Artem RojasHematocrit (Bld) [Volume fraction]39.7 %Critically low42.0-54.0 The [facility] HospitalComment on above:Performed By: #### PTT, PT #### [facility] [address] [place] [address] Dr. Artem RojasHemoglobin (Bld) [Mass/Vol]13.1 g/dLCritically low14.0-18.0[facility] HospitalComment on above:Performed By: #### PTT, PT #### [facility] [address] [place] [address] Dr. Artem De Oliveira #0.05 10e3/ulCritically high0.00-0.03The [facility] Comment on above:Performed By: #### PTT, PT #### [facility] [address] [place] [address] Dr. Artem De Oliviera %0.4 %Normal0.0-0.5The [facility] HospitalComment on above: Performed By: #### PTT, PT #### [facility] [address] [place] [address] Dr. Artem Peters #0.8 103/ulCritically low1.2-3.8The [facility] Comment on above:Performed By: #### PTT, PT #### [facility] [address] [place] [address] Dr. Artem Millshocytes/100 WBC (Bld)5.7 %Critically low20.5-60.0[facility] HospitalComment on above:Performed By: #### PTT, PT #### [facility] [address] [place] [address] Dr. Artem WolfUAL DIFF REQNONormalThe [facility] HospitalComment on above: Performed By: #### PTT, PT #### [facility] [address] [place] [address] Dr. Artem Perrin (RBC) [Entitic mass]31.5 rnAdarfy96.9-34.0The [facility] HospitalComment on above:Performed By: #### PTT, PT #### [facility] [address] [place] [address] Dr. Artem Vega (RBC) [Mass/Vol]33.0 g/tEOikxkp85.9-35.2The [facility] HospitalComment on above:Performed By: #### PTT, PT #### [facility] [address] [place] [address] Dr. Artem Vega (RBC) [Entitic vol]95.4 fLCritically high80.0-94.0The [facility] HospitalComment on above:Performed By: #### PTT, PT #### [facility] [address] [place] [address] Dr. Artem Bowen #1.0 103/ulCritically high0.3-0.8The [facility] Comment on above:Performed By: #### PTT, PT #### [facility] [address] [place] [address] Dr. Artem Cooleyocytes/100 WBC (Bld)7.4 %Normal1.7-12.0[facility] Comment on above:Performed By: #### PTT, PT #### [facility] [address] [place] [address] Dr. Artem Farrell #11.4 103/ulCritically high1.4-6.5The [facility] Comment on above:Performed By: #### PTT, PT #### [facility] [address] [place] [address] Dr. Artem Dossutrophils/100 WBC (Bld)85.9 %Critically high43.0-75.0The [facility] HospitalComment on above:Performed By: #### PTT, PT #### [facility] [address] [place] [address] Dr. Artem Linderlet mean volume (Bld) [Entitic vol]10.8 fLNormal9.5-13.5The [facility] HospitalComment on above:Performed By: #### PTT, PT #### [facility] [address] [address] [address] Artem RojasPLT164 103/ksHvkpsk136-583Zgf [facility] HospitalComment on above: Performed By: #### PTT, PT #### [facility] [address] [place], [place] [address] Dr. Artem RojasRBC4.16 106/ulCritically low4.70-6.10The [facility] HospitalComment on above:Performed By: #### PTT, PT #### [facility] [address] [place], [place] [address] Dr. Artem RojasWBC13.2 103/ulCritically high4.0-11.0The [facility] HospitalComment on above:Performed By: #### PTT, PT #### [facility] [address] [place] [address] Dr. Artem RojasCT CSPINE WO CONon [id number] [facility] WO CONEXAMINATION: CT CSPINE WO CON HISTORY: [...] Electronically authenticated by: WILLIAM ARIAS Date: 2022-03-02 17:51NoBlanchard Valley Health System Bluffton HospitalCT HEAD WO CONon [id number] HEAD WO CONCLINICAL HISTORY: UNSPECIFIED INJURY OF [...] Electronically authenticated by: NISSA VIGIL Date: 2022-03-02 17:40Providence HospitalCovid-19 PCR (CVDTBH)on 12-09-1312BSNA-CoV-2 (COVID-19) RNA MONICA+probe Ql (Unsp spec)Not detectedNormalNOT DETECTEDThe [facility] Comment on above:Result Comment: When diagnostic [...] for this test is supported by the [place] of Health and Human Service's declaration that [...] be used).Performed By: #### PTT, PT #### [facility] [address] [place] [address] Dr. Artem RojasGASTROCCULTon [id number]ousDFNPMYFFYbb [facility] HospitalComment on above:Performed By: #### PTT, PT #### [facility] [address] [place] [address] Dr. Artem RojasPH UDWFOHB0IrasdmMuc [facility] HospitalComment on above:Performed By: #### PTT, PT #### [facility] [address] [place] [address] Dr. Artem RojasPROF 14(COMP METB)on [id number] [Mass/Vol]3.6 g/dLNormal 3.4-5.0The [facility] HospitalComment on above:Performed By: #### PTT, PT #### [facility] [address] [place] [address] Dr. Artem RojasAlbumin/Globulin [Mass ratio]1.3 {ratio}NormalThe [facility] on above:Performed By: #### PTT, PT #### [facility] [address] [place] [address] Dr. Artem RojasALP [Catalytic activity/Vol]65 U/ZDlplam37-830Hvx [facility] Northment on above:Performed By: #### PTT, PT #### [facility] [address] [place] [address] Dr. Artem RhoadesT [Catalytic activity/Vol]12 U/LCritically wxb16-68Fcn [facility] HospitalComment on above:Performed By: #### PTT, PT #### [facility] [address] [place] [address] Dr. Artem RojasAnion gap [Moles/Vol]12.8 mmol/LNormalEast [facility] Comment on above:Performed By: #### PTT, PT #### [facility] [address] [place] [address] Dr. Artem RojasAST [Catalytic activity/Vol]15 U/WRxfvqi96-53Mvk [facility] HospitalComment on above:Performed By: #### PTT, PT #### [facility] [address] [place] [address] Dr. Artem RojasBilirubin [Mass/Vol]1.1 mg/dLCritically high0.2-1.0The [facility] HospitalComment on above:Performed By: #### PTT, PT #### [facility] [address] [place] [address] Dr. Artem RojasCalcium [Mass/Vol]9.0 mg/dLNormal8.5-10.1[facility] Comment on above:Performed By: #### PTT, PT #### [facility] [address] [place] [address] Dr. Artem RojasChloride [Moles/Vol]104 mmol/UFcpldx47-886EsuEast [facility] City Hospital Comment on above:Performed By: #### PTT, PT #### [facility] [address] [place] [address] Dr. Artem RojasCO2 [Moles/Vol]25.8 mmol/LUzasut62.0-32.0[facility] Comment on above:Performed By: #### PTT, PT #### [facility] [address] [place] [address] Dr. rAtem RojasCreatinine [Mass/Vol]1.06 mg/dLNormal0.70-1.30The [facility] HospitalComment on above:Performed By: #### PTT, PT #### [facility] [address] [address] [address] Artem DaveGFR-AF CYPRIOT>60Normal>=60The [facility] HospitalComment on above:Performed By: #### PTT, PT #### [facility] [address] [address] [address] Artem DaveGFR-NON AF CYPRIOT>60Normal>=60The [facility] HospitalComment on above:Performed By: #### PTT, PT #### [facility] [address] [address] [address] Artem RojasGlobulin (S) [Mass/Vol]2.8 g/dLNormalThe [facility] HospitalComment on above:Performed By: #### PTT, PT #### [facility] [address] [place] [address] Dr. Artem RojasGlucose [Mass/Vol]104 mg/sAGllfce14-863Llz [facility] Comment on above:Performed By: #### PTT, PT #### [facility] [address] [place] [address] Dr. Artem RojasPotassium [Moles/Vol]4.6 mmol/LNormal3.5-5.1The [facility] Comment on above:Performed By: #### PTT, PT #### [facility] [address] [place] [address] Dr. Artem RojasProtein [Mass/Vol]6.4 g/dLNormal6.4-8.2The [facility] Comment on above:Performed By: #### PTT, PT #### [facility] [address] [place] [address] Dr. Artem RojasSodium [Moles/Vol]138 mmol/ZPdssep867-305Tpb [facility] Comment on above:Performed By: #### PTT, PT #### [facility] [address] [place] [address] Dr. Artem RojasUrea nitrogen [Mass/Vol]13.0 mg/dLNormal7.0-18.0The [facility] HospitalComment on above:Performed By: #### PTT, PT #### [facility] [address] [address] [address] Artem Church nitrogen/Creatinine [Mass ratio]12.3 mg/mgNoBlanchard Valley Health System Bluffton HospitalComment on above:Performed By: #### PTT, PT #### [facility] [address] [place] [address] Dr. Artem ByrdIMErivera [id number] Coag (PPP) [Relative time]1.23 {INR} NormalThe [facility] HospitalComment on above:Performed By: #### PTT, PT #### [facility] [address] [place] [address] Dr. Artem Brito GUIDELINESSEE [facility] Hospital NorthComment on above:Result Comment: DESIRED INR: 2.0 - 3.0 CONDITIONS NOT LISTED BELOW 2.5 - 3.5 FOR PROSTHETIC HEART VALVE REPLACEMENT 2.5 - 3.5 RECURRENT THROMBOSIS Performed By: #### PTT, PT #### [facility] [address] [place] [address] Dr. Artem RojasPT Coag (PPP) [Time]13.1 sCritically high9.0-11.6The [facility] HospitalComment on above:Performed By: #### PTT, PT #### [facility] [address] [place] [address] Dr. Artem Valdivia [id number] Coag (Bld) [Time]28.5 sOtyqss00.3-36.2[facility] HospitalComment on above:Performed By: #### PTT, PT #### [facility] [address] [place] [address] Dr. Artem RojasXR KNEE RT 1_2 Von [id number] KNEE RT 1_2 VXR KNEE RT 1_2 [...] Electronically authenticated by: MATTHEW CHADWICK Date: 2022-03-02 20:49NoBlanchard Valley Health System Bluffton HospitalOVA AND PARASITE EXAMINATIONon [id number] + Parasite Exam Final reportGerman Hospital on above:Result Comment: These results were obtained using wet preparation(s) and trichrome stained smear. This test does not include testing for Cryptosporidium parvum, Cyclospora, or Microsporidia.Performed By: #### PTT, PT #### [facility] [address] [place] [address] Dr. Artem Montero 1CommentNoBlanchard Valley Health System Bluffton HospitalComkarmanos cancer center on above:Result Comment: No ova, cysts, or parasites seen. . One negative specimen does not rule out the possibility of a parasitic infection.Performed By: #### PTT, PT #### [facility] [address] [place] [address] Dr. Artem Bhatt PANEL (PCR)on [id number] F 40/41Not detectedNormal NOT DETECTEDThe [facility] HospitalComment on above:Performed By: #### PTT, PT #### [facility] [address] [place] [address] Dr. Artem RojasAstrovirusNot detectedNormalNOT DETECTEDThe [facility] Comment on above:Performed By: #### PTT, PT #### [facility] [address] [place] [address] Dr. Artem Patel. Diff toxin A/BNot detectedNormalNOT DETECTEDThe [facility] HospitalComment on above:Performed By: #### PTT, PT #### [facility] [address] [place] [address] Dr. Artem BernsteinpylobacterNot detectedNormalNOT DETECTEDThe [facility] Comment on above:Performed By: #### PTT, PT #### [facility] [address] [place] [address] Dr. Artem LopezyptosporidiumNot detectedNormalNOT DETECTEDThe [facility] HospitalComment on above:Performed By: #### PTT, PT #### [facility] [address] [address] [address] Artem Rose. CayetanensisNot detectedNormalNOT DETECTEDThe [facility] HospitalComment on above:Performed By: #### PTT, PT #### [facility] [address] [place] [address] Dr. Artem Cabrera Coli Z868Zpu ApplicableNormalNot ApplicableThe [facility] HospitalComment on above:Performed By: #### PTT, PT #### [facility] [address] [address] [address] Artem Cabrera histolyticaNot detectedNormalNOT DETECTEDThe [facility] Comment on above:Performed By: #### PTT, PT #### [facility] [address] [place] [address] Dr. Artem DaveAECNot detectedNormalNOT DETECTEDThe [facility] HospitalComment on above:Performed By: #### PTT, PT #### [facility] [address] [place] [address] Dr. Artem DaveIECNot detectedNormalNOT DETECTEDThe [facility] HospitalComkarmanos cancer center on above:Performed By: #### PTT, PT #### [facility] [address] [place] [address] Dr. Artem DavePECNot detectedNormalNOT DETECTEDThe [facility] HospitalComkarmanos cancer center on above:Performed By: #### PTT, PT #### [facility] [address] [place] [address] Dr. Artem DaveTECNot detectedNormalNOT DETECTEDThe [facility] HospitalComment on above:Performed By: #### PTT, PT #### [facility] [address] [place] [address] Dr. Artem Gandhi. LambliaNot detectedNormalNOT DETECTEDThe [facility] Comment on above:Performed By: #### PTT, PT #### [facility] [address] [place] [address] Dr. Artem Lea CONTROLSPASSOur Lady of Mercy HospitalComment on above:Performed By: #### PTT, PT #### [facility] [address] [address] [address] Aretm WEBER HEADERGI [facility] Comment on above:Performed By: #### PTT, PT #### [facility] [address] [address] [address] Artem Carmona ECOLIGI PANEL DIARRHEAGENIC E.COLI / SHIGELLAProvidence HospitalComment on above:Performed By: #### PTT, PT #### [facility] [address] [address] [address] Artem Carmona INFOSEDayton VA Medical CenterComment on above: Result Comment: EAEC- Enteroaggregative E. Coli EPEC- Enteropathogenic E. Coli ETEC- Enterotoxigenic E. Coli lt/st STEC- Shigella-like toxin-producing E. Coli stx1/stx2 EIEC- Shigella/Enteroinvasive E. ColiPerformed By: #### PTT, PT #### [facility] [address] [address] [address] Artem Carmona PARASITESGI PANEL PARASITESProvidence Hospital Comment on above:Performed By: #### PTT, PT #### [facility] [address] [address] [address] Artem Carmona VIRUSGI PANEL VIRUSESProvidence HospitalComment on above:Performed By: #### PTT, PT #### [facility] [address] [address] [address] Artem Mccurdyvirus GI/GIINot detectedNormalNOT DETECTEDThe [facility] HospitalComkarmanos cancer center on above:Performed By: #### PTT, PT #### [facility] [address] [address] [address] Artem Middleton ShigelloidesNot detectedNormalNOT DETECTEDThe [facility] HospitalComment on above:Performed By: #### PTT, PT #### [facility] [address] [address] [address] Artem RojasRotavirus ANot detectedNormalNOT DETECTEDThe [facility] Comment on above:Performed By: #### PTT, PT #### [facility] [address] [address] [address] Artem RojasSalmonellaNot detectedNormalNOT DETECTEDThe [facility] Comment on above:Performed By: #### PTT, PT #### [facility] [address] [address] [address] Artem RojasSapovirusNot detectedNormalNOT DETECTEDThe [facility] Comment on above:Performed By: #### PTT, PT #### [facility] [address] [address] [address] Artem RojasSTECNot detectedNormalNOT DETECTEDThe [facility] HospitalComment on above:Performed By: #### PTT, PT #### [facility] [address] [address] [address] Artem EllisonbrioNot detectedNormalNOT DETECTEDThe [facility] HospitalComment on above:Performed By: #### PTT, PT #### [facility] [address] [address] [address] Artem Espinalio CholeraNot detectedNormalNOT DETECTEDEast [facility] Comment on above:Performed By: #### PTT, PT #### [facility] [address] [place] [address] Dr. Artem Alexander. EnterocoliticaNot detectedNormalNOT DETECTEDThe [facility] HospitalComment on above:Performed By: #### PTT, PT #### [facility] [address] [address] [address] Artem Bardalessultation Noteon 59-58-1429Huvjcauquvcy Note [id number]#1.00CD:[address] [place], [place] [address]RAD - MISCon 56-91-3132ZEJ - MISC [id number]#1.00CD:[address] [place], [place] [address]Glucose Poct Glucometerson 30-27-2915Xyiwqrk [Mass/Vol]108 mg/dLNormal [facility] HospitalComment on above:Result Comment: Random Glucose Reference Range is dependent on time and content of last meal. Glucose of more than 200 mg/dL in a nonstressed, ambulatory subject supports the diagnosis of Diabetes Mellitus. PERFORMED BY: [place] [address] PATHOLOGIST BURLAP BAG SEWER SARY APARICIO M.D.Performed By: #### GLULS #### Point of Care testing ,[place] 01-10-2021 Specimen: [id number] Received: 01/10/21 Status: WILFREDO Mckeon Num: [id number] Spec Type: Surgical Subm Dr: Shane Snell MD Tissues: A Colon - Polyp (CECUM) B Colon - Polyp (SIGMOID) Procedures: HE Stain/4, Gross/Micro L4/2 Patient Age/Sex Location Account Attending Physician Desean Landry JR 80/M [id number] Shane Snell MD SPEC NUM: [id number] RECD: 01/10/21 STATUS: WILFREDO MCKEON NUM: [id number] MICAH: 01/10/21 DR: Shane Snell MD ENTERED: 01/10/[address] [facility] [address]: SATHISH TYPE: Surgical DEPT: [...] findings support the above pathologic diagnosis. Specimen: [id number] Received: 01/10/21 Status: WILFREDO Mckeon Num: [id number] Spec Type: Surgical Subm Dr: Shane Snell MD Tissues: A Colon - Polyp (CECUM) B Colon - Polyp (SIGMOID) Procedures: HE Stain/4, Gross/Micro L4/2 Patient: Desean Landry JR [id number] (Continued) Specimen: [id number] Received: 01/10/21 (Continued) Signed (signature on file) Randi Ji MD 01/11/21 1809 Specimen: [id number] Received: 01/10/21 Status: WILFREDO Mckeon Num: [id number] Spec Type: Surgical Subm Dr: Shane Snell MD Tissues: A Colon - Polyp (CECUM) B Colon - Polyp (SIGMOID) Procedures: HE Stain/4, Gross/Micro L4/2 Patient: Desean Landry JR [id number] (Continued) Specimen: [id number] Received: 01/10/21 (Continued) CPT Codes 79595?2 Specimen: [id number] Received: 01/10/21 Status: WILFREDO Mckeon Num: [id number] Spec Type: Surgical Subm Dr: Shane Snell MD Tissues: A Colon - Polyp (CECUM) B Colon - Polyp (SIGMOID) Procedures: HE Stain/4, Gross/Micro L4/2 Patient: Desean Landry [id number] (Continued) Signed (signature on file) Randi Ji MD 01/11/21 1809 [facility] HospitalCNCOon 15-39-7207MTQBFccrdw TextOctthe medical center 2017[address] [place], [place] [address]FMCJ: Desean LandryJOEL NO.: [id number] OF SERVICE: 04/06/2018Dept. of Pulmonary and Critical Care MedicineDear Mr. Landry,Attached please find a copy of your CAT scan chest report from March.Please contact me if I can contribute further in your health care management.Best regards.Yours sincerely,Cesar Rowley M.D., F.C.C.P.HC:EnclosureNoUpper Valley Medical CenterCT CHEST WO IVCONon [id number] CHEST WO IVCON* * *Final Report* * *DATE OF EXAM: Apr 06 2018 12:50PM [facility] 0541 - CT CHEST WO [...] any questions regarding this interpretation, please call [phone].If you are unable to reach us at the number above,please feel free to contact [facility] eRadiology at [phone] Health SpringfieldPROGRESSon 52-08-2039Ngggtcz mass concHNO ID: [id number]: Venita Lr: (none)Author Type: (none)Type: Progress NotesFiled: 04/06/2018 12:57 PMNote Text: Radiology Service Progress NotePATIENT NAME: Desean LandryMRN: [id number] OF SERVICE: April 06, 2018TIME: 12:28 PMPATIENT IDENTITY VERIFICATION COMPLETED USING TWO (2) METHODS: Patientconfirmed name verbally and ID band matches..PATIENT GENDER DATA: MalePATIENT RELEVANT IMPLANT DATA REVIEWED: Not ApplicableRADIOLOGY DEPARTMENT: CT; Exam(s) Completed: ChestPERIPHERAL IV DATA: Not applicableSIGNED BY: Venita Lee 2017 12:28 PMNormalUniversity Hospitals Lake West Medical CenterOVon 25-21-6171PGYHThwkob Visit (PULMMN) --------FRANTZDESEAN ([id number]) 1940 MDate Time Provider Department09/10/17 9:55 AM CESAR ROWLEY During your visit today, we recorded the following information about you: Temperature Pulse Respiration Blood pressure 97.7 degrees 75/minute 18/minute 125/68 Weight Height 90.3 kg 1.753 Ritika Rowley MD 09/10/2017 12:26 PM SignedPULMONARY CLINICPATIENT NAME: Desean LandryMRN: [id number] CARE PHYSICIAN: Diogenes Casiano, MDCommunication will be [...] Ht 5' 9ANDquot; (1.75m) Wt 199 lb(90.3kg) GjA759% BMI 29.37 kg/(m2).GENERAL: No distressSKIN: . No rashes or lesions.OROPHARYNX: Oropharynx normal. No erythema. No thrush.LYMPH: No neck adenopathyLUNGS: Lungs clear to auscultation bilateral. No wheezing. No ronchi. No ralesCARDIAC: normal S1 and F3OGGMIZE: Abdomen soft.EXTREMETIES: No deformities. No LE edema. [...] [J98.11] Pleural calcification [J94.8]Order(s):CT CHEST WO IVCON [[id number]] Order #: [id number] FUTUREProblem List As Of Date: 09/10/2017(None)Disposition: Return in about 6 months (around 03/13/2018).Follow-up and Disposition History RecordedEncounter Number: [id number] Status:Closed by CESAR ROWLEY MD on 09/10/17[facility] - AndersonCT CHEST WO IVCONon 90-84-7610HQ CHEST WO IVCON* * *Final Report* * *DATE OF EXAM: Sep 10 2017 9:05AM [facility] [place]ST WO IVCON / [...] 6 mm. Three-month imaging follow-up suggested for reevaluation.Business Architect: AMILACR Transcribe Date/Time: Sep 10 2017 9:58ADictated by : CHRISTY MULTANI MDThis examination was interpreted and the report reviewed and electronically signed by: CHRISTY MULTANI MD on Sep 10 2017 2:48PM [id number] Clinic ClevelandPROGRESSon 35-04-4185Ricnevd mass concHNO ID: [id number]: Cesar Claudiae: (none)Author Type: PhysicianType: Progress NotesFiled: 09/10/2017 12:26 PMNote Text:PULMONARY CLINICPATIENT NAME: Desean LandryMRN: [id number] CARE PHYSICIAN: Diogenes Casiano [facility] OKLAHOMA CITYommunication will [...] wheezing. No ronchi. NoralesCARDIAC: normal S1 and O5INQDOFG: Abdomen soft.EXTREMETIES: No deformities. No LE edema. [...] Critical Care MedicineDATE: September 10, 2017TIME: 9:30 [facility] HospitalProtein mass concHNO ID: [id number]: Srinath Purcell (Ct) CTService: RadiologyAuthor Type: Clinical TechnicianType: Progress NotesFiled: 09/10/2017 9:03 AMNote Text: Radiology Service Progress NotePATIENT NAME: Desean LandryMRN: [id number] OF SERVICE: September 10, 2017TIME: 9:03 AMPATIENT IDENTITY VERIFICATION COMPLETED USING TWO (2) METHODS: Patientconfirmed name verbally and ID band matches..PATIENT GENDER DA TA: MalePATIENT RELEVANT IMPLANT DATA REVIEWED: YesRADIOLOGY DEPARTMENT: CT; Exam(s) Completed: ChestPERIPHERAL IV DATA: Not applicableSIGNED BY: MANINDER LinCleveland Clinic [facility]on Hospital 2017 9:03 [facility] Memorial HospitalHISTORY PHYSICALon 05-46-1278TCKYGGS PHYSICALHNO ID: [id number]: Cesar RowleySertimae: (none)Author Type: PhysicianType: HANDPFiled: 07/23/2017 5:35 PMNote Text:PULMONARY CONSULTPATIENT NAME: Desean LandryMRN: [id number] FOR CONSULT: Pleural effusionREQUESTING PHYSICIAN: REJI HealyRIW. D. [facility] CARE PHYSICIAN: Diogenes Casiano, [facility] OKLAH[facility] CITYommunication will be sent via [place] mail or shared electronic medicalrecordsHISTORY OF PRESENT ILLNESS: Mr. 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 Unable to make his own medical decision.He lives by himself but currently admitted at a SNF. He has a legalguardian Blanca Sofia phone # [phone].In June he was found on the floor [...] evaluation anddecided [facility]. He [...] Care MedicineDATE: July 23, 2017TIME: 12:12 PMNormal [facility] SpringfieldPROGRESSon 10-20-3287Kfismho mass concHNO ID: [id number]: Colleen Ceballos RtService: (none)Author Type: (none)Type: Progress NotesFiled: 07/23/2017 11:16 AMNote Text: Radiology Service Progress NotePATIENT NAME: Desean LandryMRN:[id number] OF SERVICE: July 23, 2017TIME: 11:16 AMPATIENT IDENTITY VERIFICATION COMPLETED USING TWO (2) METHODS: Patientconfirmed name verbally and Date of .PATIENT GENDER DATA: MalePATIENT RELEVANT IMPLANT DATA REVIEWED: Not ApplicableRADIOLOGY DEPARTMENT: General X-ray: Exam(s) Completed: Chest X-RayPERIPHERAL IV DATA: Not applicableSIGNED BY: Colleen Ceballos RtFebruary 2017 11:16 AMNormal [facility]tering Health SpringfieldXR CHEST 2V FRONTAL/LATon 20-67-2676KL CHEST 2V FRONTAL/LAT* * *Final Report* * [...] ARMENTA MD on Jul 23 2017 3:24PM [id number] Clinic ClevelandHOSPon 50-06-9303VAYMSpotgph:Desean LandryMRN: Height:No patient height recorded for this [...] Signed Radiology Service ProgressNotePATIENT NAME: Desean LandryMRN: [id number] OF SERVICE: July 23, 2017TIME: 11:16 AMPATIENT IDENTITY VERIFICATION COMPLETED USING TWO (2) METHODS: Patientconfirmed name verbally and Date of .PATIENT GENDER DATA: MalePATIENT RELEVANT IMPLANT DATA REVIEWED: Not ApplicableRADIOLOGY DEPARTMENT: General X-ray: Exam(s) Completed: Chest X-RayPERIPHERAL IV DATA: Not applicableSIGNED BY: Colleen Ceballos RtFebruary 2017 11:16 AMProgress Notes ([facility]OS[facility] H23):Latoya Mohamud, RN, RN 07/22/2017 10:35 AM Signed07/22/2017: Navigator contacted [facility] ([phone] toobtain recent labs. Media Manager will fax labs and medication list. Craig also have a copies of this sent with him to his appointments.Normal [facility]tering Health SpringfieldCNPNon 35-68-2293SXQNHcmwyfmvk (PULMMN) --------DESEAN LANDRY ([id number]) 1940 MDate Time Provider Department07/16/17 CESAR ROWLEY During your visit today, we recorded the following information about you:Kristie Vallejo 07/16/2017 2:35 PM Signedcxr report to [facility] [employer].Italo Mora CNP 07/17/2017 12:47 PM SignedCXR 07/13/2017StableAllergies As of Date: 07/16/2017(No Known Allergies)Date Reviewed: 07/14/2017Reviewed by: Kim Walker (Fel) - Yesenia AssessedReason for Visit: Received Outside Medical Records [0052]Problem List As Of Date: 07/16/2017(None) Status:Closed by KRISTIE ANDRADE on 07/16/17Normal [facility] METABOLIC PANELon 42-55-5179Trloypp3.5 mg/dLLow 8.6-10.3The [facility] HospitalComment on above:Order Comment: No: Do not add to previous drawPerformed By: #### 32584, 13020, 61576, 34135, 60170 ####[facility] [place] [address], FEALgpwehvz911 mmol/HGuoipo44-164Ife [facility] Comment on above:Order Comment: No: Do not add to previous drawPerformed By: #### 92702, 18224, 30176, 36866, 75263 ####[facility] [place] [address], DBOAH478 mmol/QTyflxa93-58Ecc [facility] HospitalComment on above:Order Comment: No: Do not add to previous drawPerformed By: #### 67257, 52571, 04136, 82476, 71966 ####[facility] [place] [address], [place] Creatinine0.94 mg/dLNormal0.70-1.30The [facility] Comment on above:Order Comment: No: Do not add to previous drawPerformed By: #### 44872, 35419, 16825, 85069, 41366 ####[facility] [place] [address], USAeGFR (black)mL/min/{1.73_m2}Normal >60The [facility] HospitalComment on above:Order Comment: No: Do not add to previous drawResult Comment: Calculation may not be valid for patients over 70 yearsPerformed By: #### 04845, 36749, 00687, 48628, 58683 ####[facility] [place] [address], [place] eGFR (non-black)mL/min/{1.73_m2}Normal>60The [facility] Comment on above:Order Comment: No: Do not add to previous drawResult Comment: Calculation may not be valid for patients over 70 yearsPerformed By: #### 99537, 65315, 38680, 45963, 46950 ####[facility] [place] [address], USAGlucose mass conc98 mg/rUNdmpzg57-061Epi [facility] HospitalComment on above:Order Comment: No: Do not add to previous drawPerformed By: #### 09688, 47334, 75856, 87463, 53256 ####[facility] [place] [address], [place] Potassium molar conc4.3 mmol/LNormal3.5-5.1The [facility] HospitalComment on above:Order Comment: No: Do not add to previous drawPerformed By: #### 97498, 64012, 45763, 82734, 68225 ####[facility] [place] [address], HWETurxqe910 mmol/HTbkqgw714-613Dgb [facility] HospitalComment on above:Order Comment: No: Do not add to previous drawPerformed By: #### 88158, 50493, 99188, 07500, 10287 ####[facility] [place] [address], [facility] CENTERB Urea mg/dLNormal7-25The [facility] HospitalComment on above:Order Comment: No: Do not add to previous drawPerformed By: #### 61722, 43783, 44928, 75139, 83950 ####[facility] [place] [address], [facility] MEDICAL CENTERBCBC W/DIFFon 96-18-2638Vzfpfsygt Auto #/vol (Bld)0.5 % Normal0.0-2.0The [facility] HospitalComment on above:Performed By: #### 09083, 44289, 69818, 75066, 88783 ####[facility] [place] [address], [facility] MEDICAL CENTERBEosinophils/100 leukocytes3.6 % Normal0.0-5.0The [facility] HospitalComment on above:Performed By: #### 58587, 46388, 06150, 44814, 95202 ####[facility] [facility] [address], [facility] MEDICAL CENTERBErythrocyte distribution width Auto Ratio (RBC)14.2 %Mroorm53.5-16.9The [facility] Comment on above:Performed By: #### 05801, 32650, 19866, 24073, 61651 ####[facility] [facility] [place] [address], [facility] CENTERB Erythrocytes (RBC)4.19 mill/ql5Ggs1.30-5.90The [facility] HospitalComment on above:Performed By: #### 11319, 70313, 92912, 93945, 29943 ####[facility] [place] [address], [facility] CENTERB Hematocrit (HCT)39.9 %Yerxku45.0-55.0The [facility] Comment on above:Performed By: #### 63344, 91910, 98592, 95121, 20050 ####[facility] Hemoglobin mass conc (Bld)13.6 g/dLLow13.9-16.3The [facility] HospitalComment on above:Performed By: #### 59755, 23598, 02824, 96791, 51889 ####[facility] [place] [address], [facility] CENTERB Lymphocytes/100 fhnyzlmolk87.7 %Low20.0-40.0The [facility] HospitalComment on above:Performed By: #### 57880, 05290, 05731, 75182, 39418 ####[facility] [facility] [place] [address], [facility] CENTERB MCH32.4 ugPipr79.0-32.0The [facility] HospitalComment on above: Performed By: #### 58379, 45423, 58405, 92980, 53002 ####[facility] [place] [address], [facility] MEDICAL CENTERBMCHC mass conc (RBC)34.0 g/tXQpderw01.0-36.0The [facility] HospitalComment on above: Performed By: #### 51537, 46810, 81406, 55289, 39127 ####[facility] [place] [address], RUAIFF34.3 gOIupuld02.0-100.0 The [facility] HospitalComment on above:Performed By: #### 61336, 62466, 18131, 34400, 92465 ####[facility] [place] [address], [facility] MEDICAL CENTERBMETHODNormal RBC MorphologyNormalThe [facility] HospitalComment on above:Performed By: #### 96947, 62611, 17766, 46025, 91546 ####[facility] [place] [address], USAMONOS9.9 %High2-8The [facility] HospitalComment on above:Performed By: #### 69560, 28953, 53488, 83989, 00873 ####[facility] [place] [address], [place] Neutrophils/100 nuzgpfdugq37.3 %Bfew38-48Xta [facility] Comment on above:Performed By: #### 40937, 08402, 82891, 35768, 09911 ####[facility] [place] [address], [place] PLAT ICF362 Thou/dz7Ufchgh773-633Zse [facility] HospitalComment on above:Performed By: #### 72483, 89090, 03444, 77862, 58081 ####[facility] [place] [address], USAWBC (Leukocytes)8.7 Thou/ez4Asoczn2.0-10.0The [facility] HospitalComment on above: Performed By: #### 73047, 68514, 39923, 74576, 35985 ####[facility] [place] [address], USADischarge Summaryon 69-35-1537Fnpcxumif SummaryMR#: [id number] IUniversSouthern [facility] Pt. Name: Desean Landry Admitted: 06/13/2017Discharged: 06/20/2017 Date of : 1940 Physician: Diogenes Ren M.D. DISCHARGE SUMMARYPRIMARY DIAGNOSIS: Rhabdomyolysis secondary to prolonged immobilization.SECONDARY DIAGNOSES:1. History of atrial fibrillation.2. Right sided Posterior Calcified pleural plaques.3. Right-sided loculated pleural effusion.CONSULTS: CT Surgery, Pulmonary.PROCEDURES: None.SUMMARY OF HOSPITAL COURSE: is a 76-year-old male, who [facility] with complaints of being found down for approxi mately 15 to 18hours. Per the patient, he was in usual state of health and last nightwhen woke to take his medications, his legs gave out and fell to the floor.Denies loss of consciousness but statedthat he was so weak that he wasunable to get up. Eventually, EMS was contacted and brought the patient [facility]. Initial workup was notable for severe rhabdomyolysis,and the patient was transferred to [facility]. He has a past medical historysignificant for [...] not have a biopsy performed [facility]hospital[facility] at [facility].His CK and myoglobin continue to trend downward, and he was deemed stableat the time of discharge.He will need to follow up with Dr. [facility] for continuedmanagement of his pleural effusions concerning for empyema and hisright-sided pleural calcifications. He was to be discharged on June, however his transportation was delayed. He was ultimately dischargedon 06/20/16 [facility].Of note, his Eliquis was stopped for possible thoracentesis in the nextweek. He was instructed that if he does not have a thoracentesis the nextweek, he is to resume his Eliquis for his atrial fibrillation.The patient's condition at discharge stable and improved since admission.DISPOSITION: ECF. DISCHARGE INSTRUCTIONS: You are being discharged to ECF. Please continueto follow up with Dr. Rowley at [facility] for continued management ofthe pleural effusions [...] 06/19/2017/05:47 P/Jarad Ayon MDDate Trans: 06/20/2017 04:29 P/mmoDN_JN:[id number]: Diogenes Casiano M.D. [address] John Nelson [facility] [id number] Valley Health SystemMAGNESIUM BLOODon 05-73-3875Rvfgwatcx8.0 mg/dLNormal1.9-2.7The [facility] HospitalComment on above:Order Comment: No: Do not add to previous drawPerformed By: #### 36768, 18027, 51193, 30504, 87858 ####[facility] [place] [address], [facility] CENTERBPHOSPHORUS BLOODon 17-13-9643Txibadtby3.5 mg/dLNormal2.5-5.0The [facility] HospitalComment on above:Order Comment: No: Do not add to previous draw Performed By: #### 92299, 53737, 18889, 33057, 87336 ####[facility] [place] [address], USABASIC METABOLIC PANELon 07-17-7076Qevfusk8.5 mg/dLLow8.6-10.3The [facility] Comment on above:Order Comment: No: Do not add to previous drawPerformed By: #### 52036, 02465, 01087, 96728, 30057 ####[facility] [place] [address], EXIOgeflrcc276 mmol/WYtxbps42-040Cei [facility] HospitalComment on above:Order Comment: No: Do not add to previous drawPerformed By: #### 87106, 86632, 87661, 14490, 62209 ####[facility] [place] [address], [place] CO226 mmol/ULfwqhv66-17Jkp [facility] HospitalComment on above: Order Comment: No: Do not add to previous drawPerformed By: #### 82666, 70789, 38352, 96068, 77396 ####[facility] [place] [address], USACreatinine0.95 mg/dLNormal0.70-1.30The [facility] HospitalComment on above:Order Comment: No: Do not add to previous drawPerformed By: #### 94154, 52618, 31038, 22711, 12409 ####[facility] [place] [address], USAeGFR (black) mL/min/{1.73_m2}Normal>60The [facility] HospitalComment on above:Order Comment: No: Do not add to previous drawResult Comment: Calculation may not be valid for patients over 70 yearsPerformed By: #### 95152, 95440, 37646, 36365, 22640 ####[facility] [place] [address], USAeGFR (non-black)mL/min/{1.73_m2}Normal>60The [facility] HospitalComment on above:Order Comment: No: Do not add to previous drawResult Comment: Calculation may not be valid for patients over 70 yearsPerformed By: #### 32740, 79585, 13804, 25239, 92321 ####[facility] [place] [address], USAGlucose mass conc 102 mg/sSWngv30-049Nta [facility] HospitalComment on above:Order Comment: No: Do not add to previous drawPerformed By: #### 84601, 19446, 71638, 21282, 32113 ####[facility] [place] [address], USAPotassium molar conc3.7 mmol/LNormal3.5-5.1The [facility] HospitalComment on above:Order Comment: No: Do not add to previous draw Performed By: #### 91962, 84423, 04931, 17445, 65794 ####[facility] [place] [address], ORGAysizd044 mmol/LNormal 136-145The [facility] HospitalComment on above:Order Comment: No: Do not add to previous drawPerformed By: #### 11178, 71262, 57629, 52715, 85167 ####[facility] [place] [address], USAUrea npeengae47 mg/dLNormal7-25The [facility] Comment on above:Order Comment: No: Do not add to previous drawPerformed By: #### 52698, 73555, 80666, 63051, 97871 ####[facility] [place] [address], USACBC W/DIFFon 86-97-9957Gsaeabkbx Auto #/vol (Bld)0.5 %Normal0.0-2.0The [facility] HospitalComment on above:Order Comment: No: Do not add to previous drawPerformed By: #### 72706, 32748, 27712, 42750, 86642 ####[facility] [place] [address], [facility] CENTERBEosinophils/100 leukocytes1.0 %Normal0.0-5.0 The [facility] HospitalComment on above:Order Comment: No: Do not add to previous drawPerformed By: #### 55344, 36069, 17924, 94839, 30261 ####[facility] [place] [address], [place] Erythrocyte distribution width Auto Ratio (RBC)13.7 %Ojdkez40.5-16.9The [facility] HospitalComment on above:Order Comment: No: Do not add to previous drawPerformed By: #### 77224, 10173, 94627, 71237, 92359 ####[facility] [facility] [place] [address], [facility] CENTERB Erythrocytes (RBC)4.33 mill/qz8Usmnej1.30-5.90The [facility] HospitalComment on above:Order Comment: No: Do not add to previous drawPerformed By: #### 37037, 44725, 93087, 09984, 26542 ####[facility] [place] [address], [facility]ICAL CENTERBHematocrit (HCT)41.5 %Normal 39.0-55.0The [facility] HospitalComment on above:Order Comment: No: Do not add to previous drawPerformed By: #### 43630, 45057, 72219, 35296, 57987 ####[facility] [place] [address], [facility] CENTERBHemoglobin mass conc (Bld)14.1 g/hNStzesc96.9-16.3The [facility] HospitalComment on above:Order Comment: No: Do not add to previous drawPerformed By: #### 45911, 36887, 68798, 17393, 18526 ####[facility] [place] [address], [facility] MEDICAL CENTERBLymphocytes/100 lelqxruqaw02.5 %Low20.0-40.0The [facility] HospitalComment on above:Order Comment: No: Do not add to previous drawPerformed By: #### 79125, 37383, 80074, 29802, 39955 ####[facility] [place] [place] [address], CCHGVK61.7 fwQjuo15.0-32.0The [facility] HospitalComment on above:Order Comment: No: Do not add to previous draw Performed By: #### 20403, 60675, 61360, 90536, 38015 ####[facility] [place] [address], [facility]ULSAHC mass conc (RBC)34.1 g/lUHrhbqc35.0-36.0The [facility] HospitalComment on above:Order Comment: No: Do not add to previous drawPerformed By: #### 05850, 75769, 26087, 53949, 73959 ####[facility] [place] [place] [address], VDRNYH88.9 dSYfeahn04.0-100.0The [facility] Comment on above:Order Comment: No: Do not add to previous drawPerformed By: #### 67526, 43818, 00262, 79695, 24295 ####[facility] [place] [place] [address], USAMETHODNormal RBC MorphologyNormal The [facility] HospitalComment on above:Order Comment: No: Do not add to previous drawPerformed By: #### 33371, 21794, 78383, 92719, 18629 ####[facility] [place] [address], [place] MONOS11.9 %High2-8The [facility] HospitalComment on above:Order Comment: No: Do not add to previous drawPerformed By: #### 68640, 45810, 22759, 05178, 37780 ####[facility] [place] [address], USANeutrophils/100 hadnqrzfkv14.1 %Hirf97-86Tel [facility] HospitalComment on above:Order Comment: No: Do not add to previous draw Performed By: #### 44225, 42533, 69657, 21529, 39956 ####[facility] [place] [place] [address], USAPLAT ZZN895 Thou/ab7Yfacfe 100-400The [facility] HospitalComment on above:Order Comment: No: Do not add to previous drawPerformed By: #### 57326, 87970, 83542, 27795, 18055 ####[facility] [place] [place] [address], USAWBC (Leukocytes)10.7 Thou/cm3Arnu3.0-10.0The [facility] HospitalComment on above:Order Comment: No: Do not add to previous draw Performed By: #### 50880, 42628, 92865, 74945, 60314 ####[facility] [facility] [place] [address], USACPKon 67-73-1775Waplpadf kinase (CK)252 U/OLtkc24-911Hmu [facility] HospitalComment on above:Performed By: #### 41715, 06611, 32151, 67041, 53115 ####[facility] [facility] [place] [address], USAMAGNESIUM BLOODon 16-36-4762Netcndncn1.0 mg/dLNormal1.9-2.7The [facility] Comment on above:Order Comment: No: Do not add to previous drawPerformed By: #### 53593, 58518, 21024, 88110, 66011 ####[facility] [place] [place] [address], USAMYOGLOBINon 43-42-3585Cfxtvnsjy762 ng/mLCritically high0-90The [facility] HospitalComment on above:Result Comment: A DOUBLING OF VALUES FROM SERIAL BLOOD COLLECTIONS(1 - 2 HOURS APART) IS MORE INDICATIVE OF A M.I.THAN THE ABSOLUTE VALUE.Performed By: #### 12404, 50414, 40071, 71448, 38818 ####[facility] [place] [address], USAPHOSPHORUS BLOODon 06-19-2017 Phosphate2.7 mg/dLNormal2.5-5.0The [facility] HospitalComment on above:Order Comment: No: Do not add to previous drawPerformed By: #### 41064, 99747, 88589, 21664, 98539 ####[facility] [place] [address], USAALBUMIN BLOODon 11-39-4375Lcdefad6.6 g/dLLow3.5-5.7The [facility] HospitalComment on above:Performed By: #### 34662, 90068, 99195, 57116, 85111 ####[facility] [place] [address], USABASIC METABOLIC PANELon 19-07-1200Fpiqsyw4.4 mg/dLLow 8.6-10.3The [facility] HospitalComment on above:Order Comment: No: Do not add to previous drawPerformed By: #### 01852 ####[facility] [place] [address], IKJUxacmoyh583 mmol/LNormal 98-107The [facility] HospitalComment on above:Order Comment: No: Do not add to previous drawPerformed By: #### 83853 ####[facility] [place] [address], DJNHF761 mmol/TIgikoi41-41Alv [facility] HospitalComment on above:Order Comment: No: Do not add to previous drawPerformed By: #### 07407 ####[facility] [place] [address], USACreatinine0.93 mg/dLNormal 0.70-1.30The [facility] HospitalComment on above:Order Comment: No: Do not add to previous drawPerformed By: #### 05468 ####[facility] [place] [address], [facility] CENTERBeGFR (black) mL/min/{1.73_m2}Normal>60The [facility] HospitalComment on above:Order Comment: No: Do not add to previous drawResult Comment: Calculation may not be valid for patients over 70 yearsPerformed By: #### 80568 ####[facility] [place] [place] [address], [place] eGFR (non-black)mL/min/{1.73_m2}Normal>60The [facility] Comment on above:Order Comment: No: Do not add to previous drawResult Comment: Calculation may not be valid for patients over 70 yearsPerformed By: #### 78598 ####[facility] [place] [address], [place] Glucose mass fjbo513 mg/mNNcvp25-866Trx [facility] Comment on above:Order Comment: No: Do not add to previous drawPerformed By: #### 72002 ####[facility] [facility] [place] [address], [facility] CENTERBPotassium molar conc3.4 mmol/LLow3.5-5.1The [facility] HospitalComment on above:Order Comment: No: Do not add to previous draw Performed By: #### 47622 ####[facility] [place] [address] [place] [address], OENOpwndj757 mmol/JGwvkjs292-732Qro [facility] HospitalComment on above:Order Comment: No: Do not add to previous draw Performed By: #### 05790 ####[facility] [place] [address], USAUrea ijilppii99 mg/dLNormal7-25The [facility] HospitalComment on above:Order Comment: No: Do not add to previous draw Performed By: #### 29361 ####[facility] [place] [address], [facility] CENTERBCBC W/DIFFon 66-44-1468Cbmxygkup Auto #/vol (Bld)0.9 % Normal0.0-2.0The [facility] HospitalComment on above:Order Comment: No: Do not add to previous drawPerformed By: #### 94743 ####[facility] [facility] [address], [facility] CENTERBEosinophils/100 leukocytes2.3 %Normal0.0-5.0The [facility] HospitalComment on above:Order Comment: No: Do not add to previous drawPerformed By: #### 95781 ####[facility] [address], [facility] CENTERB Erythrocyte distribution width Auto Ratio (RBC)13.6 %Ilgyrg72.5-16.9The [facility] HospitalComment on above:Order Comment: No: Do not add to previous drawPerformed By: #### 98781 ####[facility] [address] [address], [facility] CENTERBErythrocytes (RBC)4.37 mill/mm3 Normal4.30-5.90The [facility] HospitalComment on above:Order Comment: No: Do not add to previous drawPerformed By: #### 68780 ####[facility] [place] [address], [facility] CENTERBHematocrit (HCT) 42.0 %Mtvhgz46.0-55.0The [facility] HospitalComment on above: Order Comment: No: Do not add to previous drawPerformed By: #### 55787 ####[facility] [facility] [place] [address], [facility] CENTERB Hemoglobin mass conc (Bld)14.2 g/pFUczzwg77.9-16.3The [facility] HospitalComment on above:Order Comment: No: Do not add to previous draw Performed By: #### 43486 ####[facility] [facility] [place] [address], [facility] CENTERBLymphocytes/100 hbmrjmhaks33.2 %Low20.0-40.0The [facility] HospitalComment on above:Order Comment: No: Do not add to previous drawPerformed By: #### 04301 ####[facility] [place] [address].[place] [address], TJKBOM43.5 rqXwzd43.0-32.0The [facility] HospitalComment on above:Order Comment: No: Do not add to previous drawPerformed By: #### 30388 ####[facility] [facility] [place] [address], [facility]ICAL CENTERBMCHC mass conc (RBC)33.8 g/dL Hixwzw03.0-36.0The [facility] HospitalComment on above:Order Comment: No: Do not add to previous drawPerformed By: #### 59724 ####[facility] [facility] [place] [address], QYJVYL94.1 fLNormal 80.0-100.0The [facility] HospitalComment on above:Order Comment: No: Do not add to previous drawPerformed By: #### 41173 ####[facility] [facility] [place] [address], [facility] CENTERBMETHODNormal RBC MorphologyNormalThe [facility] HospitalComment on above:Order Comment: No: Do not add to previous drawPerformed By: #### 23036 ####[facility] [place] [address], DNPKVQAL48.8 %High 2-8The [facility] HospitalComment on above:Order Comment: No: Do not add to previous drawPerformed By: #### 38619 ####[facility] [place] [address], USANeutrophils/100 leukocytes 69.8 %Saaale05-54Zhb [facility] HospitalComment on above:Order Comment: No: Do not add to previous drawPerformed By: #### 73237 ####[facility] [place] [address], USAPLAT PYD178 Thou/an6Xrbfgq265-866Foj [facility] HospitalComment on above: Order Comment: No: Do not add to previous drawPerformed By: #### 82887 ####[facility] [place] [address], [place] WBC (Leukocytes)10.8 Thou/zk4Qeoa2.0-10.0The [facility] Comment on above:Order Comment: No: Do not add to previous drawPerformed By: #### 53235 ####[facility] [place] [address], USACPKon 44-27-6487Wqrkbngt kinase (CK)586 U/TBuzd34-055Yjt [facility] HospitalComment on above:Performed By: #### 20859, 05445, 43208, 55002, 49469 ####[facility] [place] [address], [facility]ICAL CENTERBMAGNESIUM BLOODon 52-95-3497Cbcjevvmx7.9 mg/dLNormal1.9-2.7The [facility] HospitalComment on above:Order Comment: No: Do not add to previous drawPerformed By: #### 03458 ####[facility] [place] [address], [facility] CENTERBMYOGLOBINon 08-85-7223Jwpiosole372 ng/mLCritically high0-90The [facility] HospitalComment on above:Result Comment: A DOUBLING OF VALUES FROM SERIAL BLOOD COLLECTIONS(1 - 2 HOURS APART) IS MORE INDICATIVE OF A M.I.THAN THE ABSOLUTE VALUE.Performed By: #### 83699, 71976, 34113, 09156, 24492 ####[facility] [place] [address], USAPHOSPHORUS BLOODon 06-18-2017 Phosphate3.7 mg/dLNormal2.5-5.0The [facility] HospitalComment on above:Order Comment: No: Do not add to previous drawPerformed By: #### 09544 ####[facility] [place] [address], [facility] CENTERB BASIC METABOLIC PANELon 94-96-4738Sjcqgpf3.4 mg/dLLow8.6-10.3The [facility] HospitalComment on above:Order Comment: No: Do not add to previous drawPerformed By: #### 72847 ####[facility] [place] [address], EPTMqnymhmz143 mmol/HAjym53-321Jrj [facility] HospitalComment on above:Order Comment: No: Do not add to previous drawPerformed By: #### 44690 ####[facility] [place] [address], KRKIJ952 mmol/ODclvcm06-84Vmg [facility] HospitalComment on above:Order Comment: No: Do not add to previous drawPerformed By: #### 16429 ####[facility] [place] [address], USACreatinine0.95 mg/dLNormal0.70-1.30The [facility] HospitalComment on above:Order Comment: No: Do not add to previous drawPerformed By: #### 79878 ####[facility] [place] [address], USAeGFR (black)mL/min/{1.73_m2}Normal >60The [facility] HospitalComment on above:Order Comment: No: Do not add to previous drawResult Comment: Calculation may not be valid for patients over 70 yearsPerformed By: #### 25552 ####[facility] [place] [address], USAeGFR (non-black)mL/min/{1.73_m2} Normal>60The [facility] HospitalComment on above:Order Comment: No: Do not add to previous drawResult Comment: Calculation may not be valid for patients over 70 yearsPerformed By: #### 12767 ####[facility] [place] [address], USAGlucose mass zehq409 mg/dLHigh 70-100The [facility] HospitalComment on above:Order Comment: No: Do not add to previous drawPerformed By: #### 27649 ####[facility] [facility] [place] [address], USAPotassium molar conc3.5 mmol/LNormal3.5-5.1The [facility] HospitalComment on above:Order Comment: No: Do not add to previous drawPerformed By: #### 84163 ####[facility] [place] [place] [address], VSTHdekfb418 mmol/TAndpvo742-514Peg [facility] HospitalComment on above:Order Comment: No: Do not add to previous drawPerformed By: #### 62123 ####[facility] [place] [address], USAUrea mg/dLNormal7-25The [facility] HospitalComment on above:Order Comment: No: Do not add to previous drawPerformed By: #### 96153 ####[facility] [facility] [place] [address], [facility] CENTERBCBC COMPLETE BLOOD COUNTon 98-86-1781Diemmqujyzj distribution width Auto Ratio (RBC)13.7 % Hqigle88.5-16.9The [facility] HospitalComment on above:Order Comment: No: Do not add to previous drawPerformed By: #### 79818 ####[facility] [place] [address], [facility] CENTERBErythrocytes (RBC)4.45 mill/se0Rgrpgm6.30-5.90The [facility] HospitalComment on above:Order Comment: No: Do not add to previous drawPerformed By: #### 44307 ####[facility] [facility] [place] [address], [facility] CENTERB Hematocrit (HCT)42.9 %Kskefo09.0-55.0The [facility] Comment on above:Order Comment: No: Do not add to previous drawPerformed By: #### 57075 ####[facility] [place] [address], [facility] CENTERBHemoglobin mass conc (Bld)14.3 g/cHBwutxz18.9-16.3The [facility] HospitalComment on above:Order Comment: No: Do not add to previous drawPerformed By: #### 67332 ####[facility] [facility] [place] [address], LXAMNN63.1 jaUjwa97.0-32.0The [facility] HospitalComment on above:Order Comment: No: Do not add to previous drawPerformed By: #### 50012 ####[facility] [facility] [place] [place] [address], [facility] CENTERBMCHC mass conc (RBC)33.3 g/aVNwramr26.0-36.0 The [facility] HospitalComment on above:Order Comment: No: Do not add to previous drawPerformed By: #### 42618 ####[facility] [facility] [place] [place] [address], FVYKAA41.3 pOSmhyrb22.0-100.0 The [facility] HospitalComment on above:Order Comment: No: Do not add to previous drawPerformed By: #### 49116 ####[facility] [place] [address].[place] [address], [facility] CENTERBPLAT SMP071 Thou/gf2Xqnubr 100-400The [facility] HospitalComment on above:Order Comment: No: Do not add to previous drawPerformed By: #### 57561 ####[facility] [facility] [place] [place] [address], [facility] CENTERBWBC (Leukocytes)10.7 Thou/kf1Dbch7.0-10.0The [facility] HospitalComment on above: Order Comment: No: Do not add to previous drawPerformed By: #### 14830 ####[facility] [place] [address], [facility] CENTERB MYOGLOBINon 40-53-1751Htgsifegj684 ng/mLCritically high0-90The [facility] Memorial HospitalComment on above:Result Comment: A DOUBLING OF VALUES FROM SERIAL BLOOD COLLECTIONS(1 - 2 HOURS APART) IS MORE INDICATIVE OF A M.I.THAN THE ABSOLUTE VALUE.Performed By: #### [address]52 ####[address] LUMBAR SPINE WO CONTRASTon 19-11-58464C CT LUMBAR SPINE WO CONTRASTUnSCCI Hospital LimaDepartment of Nfxswwxqa[address] [place] [id number] Patien t Name: LANDRYJOVANYDESEAN E : 2Sex: MAge: Race: WhiteMRN: [id number]. Location: [id number]: IVisit #: [id number] Date: 06/16/2017 10:45:00 AMCompleted Date: 06/16/2017 11:31 AMRequesting Provider: NADEEN SALCEDO Attending Provider: NADEEN SALCEDO Report Copy To: Signs & Symptoms: Back Pain (specify level)History: Patient history not availableComments: R/O Fractures, If Other selected, state reason for examExam: 3D CT LUMBAR SPINE WO CONTRASTAccession #: [id number]======== 3D CT LUMBAR SPINE WO CONTRAST 06/16/2017 [...] findings. Electronically signed by:Srinath Meyer. Transcribed by: [email or web address], User Resident: PAOLA ROSTElectronically Signed by: SRINATH MEYER @ 06/16/2017 12:13 PMI personally read this/these film(s) with this residentChildren's Hospital of ColumbusComment on above:Order Comment: No: Do not add to previous draw3D CT THORACIC SPINE WO CONTRASTon 33-50-60956W CT THORACIC SPINE WO CONTRASTUnSCCI Hospital LimaDepartment of Vwnxdkkha[address] [place] [address] Patien t Name: DESEAN LANDRY : 1940ex: MAge: Race: WhiteMRN: [id number]. Location: [id number]: IVisit #: [id number] Date: 06/16/2017 10:45:00 AMCompleted Date: 06/16/2017 11:32 [...] findings. Electronically signed by:Srinath Meyer. Transcribed by: [email or web address], User Resident: CAN HARRISElectronically Signed by: SRINATH MEYER @ 06/16/2017 12:03 PMI personally read this/these film(s) with this residentChildren's Hospital of ColumbusComment on above:Order Comment: No: Do not add to previous draw BASIC METABOLIC PANELon 12-22-8619Huqdcyt2.9 mg/dLLow8.6-10.3The [facility] HospitalComment on above:Order Comment: No: Do not add to previous drawPerformed By: #### 84224, 85041 ####[facility] [place] [address], JSZWxcyycga610 mmol/RDyyo28-912Azv [facility] HospitalComment on above:Order Comment: No: Do not add to previous drawPerformed By: #### 73868, 16265 ####[facility] [place] [address], AEJSG475 mmol/DCteevy31-74Tzj [facility] HospitalComment on above:Order Comment: No: Do not add to previous drawPerformed By: #### 99418, 15011 ####[facility] [place] [address], USACreatinine1.05 mg/dLNormal0.70-1.30The [facility] HospitalComment on above:Order Comment: No: Do not add to previous drawPerformed By: #### 82682, 63498 ####[facility] [place] [address], USAeGFR (black) mL/min/{1.73_m2}Normal>60The [facility] HospitalComment on above:Order Comment: No: Do not add to previous drawResult Comment: Calculation may not be valid for patients over 70 yearsPerformed By: #### 97530, 92160 ####[facility] [place] [address], [place] eGFR (non-black)mL/min/{1.73_m2}Normal>60The [facility] Comment on above:Order Comment: No: Do not add to previous drawResult Comment: Calculation may not be valid for patients over 70 yearsPerformed By: #### 59821, 19306 ####[facility] [place] [address], USAGlucose mass vquo181 mg/jLPjjy93-675Ovd [facility] HospitalComment on above:Order Comment: No: Do not add to previous drawPerformed By: #### 45124, 09188 ####[facility] [place] [address], USAPotassium molar conc4.0 mmol/LNormal3.5-5.1The [facility] HospitalComment on above:Order Comment: No: Do not add to previous drawPerformed By: #### 58190, 00250 ####[address] [place] [address], DKNEblcre722 mmol/LNormal 136-145The [facility] HospitalComment on above:Order Comment: No: Do not add to previous drawPerformed By: #### 61019, 73783 ####[place] [address] [facility] [address], USAUrea utpmusaa71 mg/dLNormal7-25The [facility] HospitalComment on above:Order Comment: No: Do not add to previous drawPerformed By: #### 87831, 31257 ####[address] [place] [address], [facility]ENTERB BNP (B-TYPE NATRIURETIC PEPTIDE)on 90-86-8601FNX5843 pg/mLHigh0-100The [facility] HospitalComment on above:Order Comment: No: Do not add to previous drawResult Comment: Given the appropriate clinical setting a BNP result of >100 pg/mLindicates congestive heart failure.Performed By: #### 21016 ####[address] [place] [address], [facility]ENTERB CBC COMPLETE BLOOD COUNTon 23-96-7564Eqdgbwuhfet distribution width Auto Ratio (RBC)13.7 %Nmkuql52.5-16.9The [facility] HospitalComment on above:Order Comment: No: Do not add to previous drawPerformed By: #### 40841, 14111 ####[address] [place] [address], [facility] CENTERBErythrocytes (RBC)4.24 mill/yo4Cna2.30-5.90The [facility] HospitalComment on above:Order Comment: No: Do not add to previous draw Performed By: #### 36339, 81013 ####[address] [place] [address], [facility] CENTERBHematocrit (HCT)40.7 %Vddnvf63.0-55.0The [facility] HospitalComment on above:Order Comment: No: Do not add to previous drawPerformed By: #### 88044, 41355 ####[facility] [place] [address].[place] [address], [facility] CENTERBHemoglobin mass conc (Bld) 13.6 g/dLLow13.9-16.3The [facility] HospitalComment on above: Order Comment: No: Do not add to previous drawPerformed By: #### 99869, 21442 ####[place] [address], [facility]ENTERB MCH32.1 fyUyvj94.0-32.0The [facility] HospitalComment on above: Order Comment: No: Do not add to previous drawPerformed By: #### 07859, 49126 ####[address] MCHC mass conc (RBC)33.4 g/zNZjahia62.0-36.0The [facility] HospitalComment on above:Order Comment: No: Do not add to previous drawPerformed By: #### 68118, 68506 ####[place] [address], JRHIWX80.1 pWHzgups43.0-100.0The [facility] HospitalComment on above:Order Comment: No: Do not add to previous draw Performed By: #### 15190, 27457 ####[address] [place] [address], [facility] CENTERBPLAT FZY299 Thou/ks3Fhlphn856-721Zvv [facility] HospitalComment on above:Order Comment: No: Do not add to previous drawPerformed By: #### 16285, 28822 ####[address] [place] [address], [facility] CENTERBWBC (Leukocytes)10.3 Thou/sc3Ydtl8.0-10.0[facility] HospitalComment on above: Order Comment: No: Do not add to previous drawPerformed By: #### 47246, 49570 ####[facility] [place] [address] CPKon 64-72-9676Embliqcv kinase (CK)2950 U/LCritically ncrc60-054Tzm [facility] HospitalComment on above:Performed By: #### 41010, 55372 ####[address] CR-PORTABLE CHEST 1 VIEW IMPORTon 60-89-1473FI-PORTABLE CHEST 1 VIEW IMPORT Images were obtained outside of [facility] [id number]_IDCSIACNNormalKettering Health SpringfieldCT CHEST WO CONTRASTon 92-50-0271QP CHEST WO CONTRASTUnSCCI Hospital LimaDepartment of Aljulgixz[address] [place], [place] [address] Patien t Name: DESEAN LANDRY : 2Sex: MAge: Race: WhiteMRN: [id number]. Location: [id number]: IVisit #: [id number] Date: 06/16/2017 5:25:00 PMCompleted Date: 06/16/2017 06:06 PMRequesting Provider: RAFFAELE GARCIA Attending Provider: NADEEN SALCEDO Report Copy To: Signs & Symptoms: Shortness of BreathHistory: Patient history not availableComments: R/O Pleural Effusion, please comment about pleural effusionExam: CT CHEST WO CONTRASTAccession #: [id number] CT CHEST WO CONTRAST 06/16/2017 6:06 PM [...] findings. Electronically signed by:Xiomara Christine. Transcribed by: [id number], User Resident: SUNITHA CAMACHOElectronically Signed by: XIOMARA CHRISTINE @ 06/17/2017 01:24 PMI personally read this/these film(s) with this residentChildren's Hospital of ColumbusComment on above:Order Comment: No: Do not add to previous drawCT-3D CT LUMBAR SPINE WO CONTRAST IMPORTon 91-26-7066JO-3D CT LUMBAR SPINE WO CONTRAST IMPORTImages were obtained outside of [facility] [id number]_IDCSIACNNAultman Alliance [facility] Hospital ClevelandCT-3D CT THORACIC SPINE WO CONTRAST IMPORTon 54-56-8587DC-3D CT THORACIC SPINE WO CONTRAST IMPORTImages were obtained outside of [facility] [id number]_IDCSIACHighland District Hospital ClevelandCT-CT CHEST WO CONTRAST IMPORTon 97-46-1538MP-CT CHEST WO CONTRAST IMPORTImages were obtained outside of [facility] [id number]_IDCSIACHighland District Hospital ClevelandMYOGLOBINon 06-16-2017 Zwaycluwx461 ng/mLCritically high0-90The [facility] Comment on above:Result Comment: A DOUBLING OF VALUES FROM SERIAL BLOOD COLLECTIONS(1 - 2 HOURS APART) IS MORE INDICATIVE OF A M.I.THAN THE ABSOLUTE VALUE.Performed By: #### 34289, 28397 ####[facility] [place] [address], USAPORTABLE CHEST 1 VIEWon 06-16-2017 PORTABLE CHEST 1 VIEWUnSCCI Hospital LimaDepartment of Skelossvu[address] [place] [address] Patien t Name: DESEAN LANDRY : 2Sex: MAge: Race: WhiteMRN: [id number]. Location: [id number]: Rekha #: [id number] Date: 06/16/2017 12:50:00 PMCompleted Date: 06/16/2017 01:22 PMRequesting Provider: NADEEN SALCEDO Attending Provider: NADEEN SALCEDO Report Copy To: Signs & Symptoms: O2 DesaturationHistory: Patient history not availableComments: R/O AspirationExam: PORTABLE CHEST 1 VIEWAccession #: [id number] ====PORTABLE CHEST 1 VIEW 06/16/2017 1:22 PM [...] left chest. Electronically signed by:Srinath Meyer. Transcribedby: [email or web address], User Resident: Electronically Signed by: SRINATH MEYER @ 06/16/2017 01:25 PMNormal The [facility] HospitalComment on above:Order Comment: No: Do not add to previous drawPROTHROMBIN TIMEon 04-33-0053IGE Coag RelTime (PPP)1.51 {INR}High0.91-1.16The [facility] HospitalComment on above:Order Comment: No: Do not [...] ACTION, CLINICALEFFECTIVENESS, AND OPTIMAL THERAPEU TIC RANGE. [id number];108:231S-246S.Performed By: #### 74931 ####[facility] [facility] [place] [address], [facility] CENTERBProthrombin time (PT) Coag time (PPP)18.4 sHigh12.3-14.8The [facility] Comment on above:Order Comment: No: Do not add to previous drawResult Comment: ALL RESULTS MUST BE INTERPRETED WITH RESPECT TO BLOOD DRAWING ARTIFACTOR DILUTION ERROR OF ANTICOAGULANT AT THE TIME OF SAMPLING.Performed By: #### 53790 ####[facility] [place] [address], [facility]ENTERB BASIC METABOLIC PANELon 50-09-6010Rjtmznt5.0 mg/dLLow8.6-10.3The [facility] HospitalComment on above:Order Comment: No: Do not add to previous drawPerformed By: #### 41699, 70586, 69256, 74728 ####[facility] [place] [address], ICXDryqjbro149 mmol/LHigh 98-107The [facility] HospitalComment on above:Order Comment: No: Do not add to previous drawPerformed By: #### 50730, 77353, 55192, 19851 ####[facility] [facility] [place] [address], [place] CO221 mmol/OHjwcts13-43Eul [facility] HospitalComment on above: Order Comment: No: Do not add to previous drawPerformed By: #### 53960, 79000, 81949, 36202 ####[facility] [place] [address], USACreatinine1.15 mg/dLNormal0.70-1.30The [facility] HospitalComment on above:Order Comment: No: Do not add to previous drawPerformed By: #### 65596, 98577, 44916, 53496 ####[facility] [facility] [place] [address], USAeGFR (black)mL/min/{1.73_m2}Normal>60The [facility] HospitalComment on above:Order Comment: No: Do not add to previous drawResult Comment: Calculation may not be valid for patients over 70 yearsPerformed By: #### 71029, 37455, 13539, 96864 ####[facility] [facility] [place] [address], USAeGFR (non-black) mL/min/{1.73_m2}Normal>60The [facility] HospitalComment on above:Order Comment: No: Do not add to previous drawResult Comment: Calculation may not be valid for patients over 70 yearsPerformed By: #### 61869, 87668, 99125, 43793 ####[facility] [facility] [place] [address], USAGlucose mass utyz901 mg/aGOemy48-015Iud [facility] HospitalComment on above:Order Comment: No: Do not add to previous drawPerformed By: #### 78564, 79359, 17811, 02630 ####[facility] [place] [address], USAPotassium molar conc3.9 mmol/LNormal3.5-5.1The [facility] HospitalComment on above:Order Comment: No: Do not add to previous drawPerformed By: #### 32731, 18040, 99801, 03446 ####[facility] [facility] [place] [address], ZXHFnziip518 mmol/L Nkguku131-939Oyk [facility] HospitalComment on above:Order Comment: No: Do not add to previous drawPerformed By: #### 77603, 45469, 44208, 47447 ####[facility] [facility] [place] [address], USAUrea pvlepkpf49 mg/dLNormal7-25The [facility] Comment on above:Order Comment: No: Do not add to previous drawPerformed By: #### 16533, 11745, 97430, 82389 ####[facility] [facility] [place] [address], USACBC COMPLETE BLOOD COUNTon 06-15-2017 Erythrocyte distribution width Auto Ratio (RBC)13.7 %Okbxms71.5-16.9The [facility] HospitalComment on above:Order Comment: No: Do not add to previous drawPerformed By: #### 91373 ####[facility] [place] [address], USAErythrocytes (RBC)4.44 mill/mm3 Normal4.30-5.90The [facility] HospitalComment on above:Order Comment: No: Do not add to previous drawPerformed By: #### 45708 ####[facility] [place] [address], USAHematocrit (HCT) 42.7 %Jzpwdl16.0-55.0The [facility] HospitalComment on above: Order Comment: No: Do not add to previous drawPerformed By: #### 72490 ####[facility] [place] [address], [facility]ENTERB Hemoglobin mass conc (Bld)14.5 g/uEUorpxc22.9-16.3The [facility] HospitalComment on above:Order Comment: No: Do not add to previous draw Performed By: #### 32940 ####[facility] [facility] [place] [place] [address], IVPBDB65.7 bhGqlv15.0-32.0The [facility] HospitalComment on above:Order Comment: No: Do not add to previous drawPerformed By: #### 71854 ####[facility] [facility] [place] [place] [address], [facility] – TULSAHC mass conc (RBC)34.0 g/pCGjccpy03.0-36.0The [facility] HospitalComment on above:Order Comment: No: Do not add to previous drawPerformed By: #### 73428 ####[facility] [facility] [place] [place] [address], NUSNDF48.1 yZEozomt63.0-100.0The [facility] HospitalComment on above:Order Comment: No: Do not add to previous drawPerformed By: #### 20905 ####[facility] [facility] [place] [place] [address], USAPLAT IXX391 Thou/xf6Czvidd937-246Lmc [facility] HospitalComment on above:Order Comment: No: Do not add to previous drawPerformed By: #### 10659 ####[facility] [facility] [place] [address], [facility] CENTERBWBC (Leukocytes)11.3 Thou/zm8Dscn 4.0-10.0The [facility] HospitalComment on above:Order Comment: No: Do not add to previous drawPerformed By: #### 50514 ####[facility] [facility] [place] [address], USACPKon 25-58-5050Qfvgrkor kinase (CK)7925 U/LCritically lbae04-324Rii [facility] Comment on above:Order Comment: No: Do not add to previous drawPerformed By: #### 00254, 08394 ####[facility] [place] [address], USAMAGNESIUM BLOODon 91-77-5925Yskmglljj1.4 mg/dLNormal 1.9-2.7The [facility] HospitalComment on above:Performed By: #### 86663, 23322 ####[facility] [place] [address], USAPHOSPHORUS BLOODon 13-97-1472Iopeyqetw6.6 mg/dLNormal 2.5-5.0The [facility] HospitalComment on above:Performed By: #### 23761, 76728 ####[facility] [facility] [place] [address], USABASIC METABOLIC PANELon 24-15-9758Mhagfuz5.3 mg/dLLow 8.6-10.3The [facility] HospitalComment on above:Order Comment: No: Do not add to previous drawPerformed By: #### 57645, 99863, 81533, 57180, 75082 ####[facility] [facility] [place] [address], YQLMgllxcjp507 mmol/NWrtcdz10-561Szd [facility] Comment on above:Order Comment: No: Do not add to previous drawPerformed By: #### 13263, 12299, 75092, 79302, 91086 ####[facility] [place] [place] [address], XRWFM050 mmol/PUikebl19-13Zod [facility] HospitalComment on above:Order Comment: No: Do not add to previous drawPerformed By: #### 28439, 37645, 86688, 60325, 79509 ####[facility] [place] [address], [facility]ENTERB Creatinine1.25 mg/dLNormal0.70-1.30The [facility] Comment on above:Order Comment: No: Do not add to previous drawPerformed By: #### 05559, 41951, 12173, 12514, 81976 ####[facility] [place] [address], [facility] CENTERBeGFR (black)mL/min/{1.73_m2}Normal >60The [facility] HospitalComment on above:Order Comment: No: Do not add to previous drawResult Comment: Calculation may not be valid for patients over 70 yearsPerformed By: #### 07797, 25133, 34021, 87330, 21688 ####[facility] [place] [address], [facility]ENTERB eGFR (non-black)56 ml/min/1.73sq mAbnormal>60The [facility] HospitalComment on above:Order Comment: No: Do not add to previous drawResult Comment: Calculation may not be valid for patients over 70 yearsPerformed By: #### 69453, 70533, 41605, 52803, 24980 ####[facility] [place] [address], [facility] CENTERBGlucose mass grzr581 mg/dLHigh 70-100The [facility] HospitalComment on above:Order Comment: No: Do not add to previous drawPerformed By: #### 58360, 08417, 93137, 37855, 55466 ####[facility] [place] [address], [facility]ENTERB Potassium molar conc4.3 mmol/LNormal3.5-5.1The [facility] HospitalComment on above:Order Comment: No: Do not add to previous drawPerformed By: #### 53910, 15490, 70790, 04162, 93218 ####[facility] [place] [address], WQGYqwsvz414 mmol/JSoppfh800-032Uem [facility] HospitalComment on above:Order Comment: No: Do not add to previous drawPerformed By: #### 30141, 65603, 63172, 91012, 01992 ####[facility] [place] [address], [place] Urea uobehsoi68 mg/dLNormal7-25The [facility] HospitalComment on above:Order Comment: No: Do not add to previous drawPerformed By: #### 46141, 08287, 14078, 22203, 50136 ####[facility] [place] [address], [facility] CENTERBCBC COMPLETE BLOOD COUNTon 23-59-4914Kufvronjkjy distribution width Auto Ratio (RBC)13.8 %Fecddb04.5-16.9The [facility] HospitalComment on above:Order Comment: No: Do not add to previous draw Performed By: #### 66096 ####[facility] [facility] [place] [address], [facility] CENTERBErythrocytes (RBC)4.83 mill/rj4Rbnjzj7.30-5.90The [facility] HospitalComment on above:Order Comment: No: Do not add to previous drawPerformed By: #### 94240 ####[facility] [facility] [place] [address], USAHematocrit (HCT)46.7 %Normal 39.0-55.0The [facility] HospitalComment on above:Order Comment: No: Do not add to previous drawPerformed By: #### 77970 ####[facility] [place] [address], [facility] CENTERBHemoglobin mass conc (Bld)15.8 g/yLBfozzu65.9-16.3The [facility] HospitalComment on above:Order Comment: No: Do not add to previous drawPerformed By: #### 99821 ####[facility] [facility] [place] [address], [facility]ENTERB MCH32.7 hwDrue43.0-32.0The [facility] HospitalComment on above: Order Comment: No: Do not add to previous drawPerformed By: #### 10869 ####[facility] [facility] [place] [address], [facility] CENTERB MCHC mass conc (RBC)33.9 g/vUWpywhe26.0-36.0The [facility] HospitalComment on above:Order Comment: No: Do not add to previous drawPerformed By: #### 98391 ####[facility] [place] [address].[place] [address], ZDSRFO55.6 rHDankhq58.0-100.0The [facility] Comment on above:Order Comment: No: Do not add to previous drawPerformed By: #### 81579 ####[facility] [place] [address].[place] [address], [facility] CENTERBPLAT GDU309 Thou/tn1Ohjbnm729-014Flj [facility] HospitalComment on above:Order Comment: No: Do not add to previous drawPerformed By: #### 74721 ####[address] [place] [address], [facility] CENTERBWBC (Leukocytes)15.7 Thou/la7Tepl0.0-10.0The [facility] HospitalComment on above:Order Comment: No: Do not add to previous draw Performed By: #### 05874 ####[address] [place] [address], [facility] CENTERBCPKon 23-20-2208Mxxwnxer kinase (CK)65772 U/LCritically jxil79-628Dml [facility] HospitalComment on above:Performed By: #### 73516, 88917, 27121, 65472, 48418 ####[facility] [place] [address].[place] [address], USAMAGNESIUM BLOODon 06-14-2017 Magnesium2.8 mg/dLHigh1.9-2.7The [facility] HospitalComment on above:Order Comment: No: Do not add to previous drawPerformed By: #### 13163, 82426, 05891, 25425, 44124 ####[facility] [place] [address], USAPHOSPHORUS BLOODon 72-52-5222Exankwqly3.3 mg/dLNormal 2.5-5.0The [facility] HospitalComment on above:Order Comment: No: Do not add to previous drawPerformed By: #### 35155, 74725, 03188, 24685, 06181 ####[facility] [place] [address], USATSHon 78-59-4313Qdjgjee stimulating hormone (TSH)2.65 MICRO-IU/ML Normal0.34-5.60The [facility] HospitalComment on above:Performed By: #### 10511, 34738, 35270, 32334, 40715 ####[facility] [place] [address], USABASIC METABOLIC PANELon 06-13-2017 Calcium8.4 mg/dLLow8.6-10.3The [facility] HospitalComment on above:Order Comment: No: Do not add to previous drawPerformed By: #### 56843, 81838 ####[facility] [place] [address], NZFYfjelwkk161 mmol/PPzfnlh34-023Ivm [facility] Comment on above:Order Comment: No: Do not add to previous drawPerformed By: #### 22694, 71295 ####[facility] [place] [address], EQOFQ909 mmol/ZHglpeg05-72Iiy [facility] HospitalComment on above:Order Comment: No: Do not add to previous drawPerformed By: #### 14088, 91033 ####[facility] [place] [address], USACreatinine1.26 mg/dLNormal0.70-1.30The [facility] HospitalComment on above:Order Comment: No: Do not add to previous drawPerformed By: #### 74386, 12094 ####[facility] [place] [address], USAeGFR (black)mL/min/{1.73_m2}Normal>60The [facility] HospitalComment on above:Order Comment: No: Do not add to previous drawResult Comment: Calculation may not be valid for patients over 70 yearsPerformed By: #### 74890, 97647 ####[facility] [place] [address], USAeGFR (non-black)56 ml/min/1.73sq m Abnormal>60The [facility] HospitalComment on above:Order Comment: No: Do not add to previous drawResult Comment: Calculation may not be valid for patients over 70 yearsPerformed By: #### 07384, 73864 ####[facility] [place] [address], [facility] MEDICAL CENTERBGlucose mass heye168 mg/rZEsat48-373Jvu [facility] HospitalComment on above: Order Comment: No: Do not add to previous drawPerformed By: #### 01088, 55607 ####[facility] [place] [address].[place] [address], [place] Potassium molar conc4.8 mmol/LNormal3.5-5.1The [facility] HospitalComment on above:Order Comment: No: Do not add to previous drawPerformed By: #### 70043, 43717 ####[facility] [place] [address], ZRJRnmwap268 mmol/HDqbiax766-156Apv [facility] HospitalComment on above:Order Comment: No: Do not add to previous draw Performed By: #### 70430, 19065 ####[facility] [place] [address], USAUrea mg/dLNormal7-25The [facility] HospitalComment on above:Order Comment: No: Do not add to previous drawPerformed By: #### 75452, 05263 ####[facility] [place] [address], USACPKon 26-04-9541Zmyzavff kinase (CK)84374 U/LCritically cswr28-985Lam [facility] HospitalComment on above:Order Comment: No: Do not add to previous drawPerformed By: #### 09948, 58654 ####[facility] [place] [address], USAHistory and Physicalon 08-02-7214Lpsrmvp and PhysicalMR#: [id number] [facility] Pt[facility] Name: Desean Landry Admitted: 06/13/2017 Date of : 1940 Attending Physician: Arpan Camacho MD Room #: [id number] Discharge Date: HISTORY AND PHYSICALPRIMARY CARE PHYSICIAN: Digoenes Casiano M.D.REASON FOR ADMISSION: Severe rhabdomyolysis.HISTORY OF [...] evaluation and management.The patient presented to the [facility] Emergency Department. Overthere, the patient had initial workup revealed severe rhabdomyolysis, sothe patient was referred to the [facility] for further evaluationand management. Denying [...] Dict: 06/13/2017/06:07 Jesse/Mariangel Hayes Trans: 06/13/2017 06:38 P/JuanN_JN:[id number]'s Hospital of [facility] Vital Signs Date TimeVital SignValuePerforming JivcgjtkhBdxmabnb86-33-2121 09:22-0400Body zypkwb144.3 cmAnthony Rusher DPM Work Phone: [phone]08-13-2025 09:22-0400Body mass index (BMI) [Ratio]29.53 kg/n8Brauhza Rusher DPM Work Phone: [phone] [place], [place] 5032708-13-2025 09:22-0400Body ohdffx25.72 kgAnthony Rusher DPM Work Phone: [phone] [place], [place] 5032705-07-2025 10:04-0400Body wvahah426.3 cmAnthony Rusher DPM Work Phone: [phone]05-07-2025 10:04-0400Body mass index (BMI) [Ratio]29.53 kg/h7Mhoftnk Rusher DPM Work Phone: [phone] [place], [place] 5032705-07-2025 10:04-0400Body .72 kgAnthony Rusher DPM Work Phone: [phone] [place], [place] 5032704-21-2025 13:20-0400Body iokrdi161.26 cmMer[facility]04-21-2025 13:20-0400Body mass index (BMI) [Ratio]29.5 kg/c8LwprvbzjtMercy Health Kings [facility] Hospital04-21-2025 13:20-0400Body gojyqduwikw89.7 [degF][facility]04-21-2025 13:20-0400Body ksafck21.88 kgMercy Health [facility] Hospital04-21-2025 13:20-0400Diastolic blood ouwqjxlv21 mm[Hg][facility]04-21-2025 13:20-0400 Heart rate60 /[facility]04-21-2025 13:20-0400 Respiratory rate18 /[facility]04-21-2025 13:20-0400 SaO2% (BldA) [Mass fraction]97 %[facility]04-21-2025 13:20-0400Systolic blood gammlxnl098 mm[Hg][facility] Encounters Encounter DateEncounter TypeCare ProviderFacilityStart: 04-17-2025 End: 82-12-7330satfifhyybDVTRBO [facility] Start: 43-35-0008ehwtbkbieuSVDBThe Bellevue Hospitaltart: 01-25-2025 End: 58-34-8548Cuueth flowsheetAnthony S Amolher DPM Work Phone: [facility] PodiatryStart: 01-25-2025 End: 00-62-8975Adqyme flowsheetAnthony S Amolher DPM Work Phone: [facility] PodiatryStart: 01-25-2025 End: 53-89-1389fjpcmgbwhfZIJJTDX S RUSHERNot AvailableStart: 01-25-2025 End: 58-36-4412Ofmxjqp encounter procedureAnthony S Marly DPM Work Phone: [facility] PodiatryComment on above:Onychodystrophy (Primary Dx); Onychomycosis; Corns and callosities; Diabetic polyneuropathy associated with type 2 diabetes mellitus (HCC)Start: 03-75-2297ndgexwfsayAEQDOhioHealth Dublin Methodist Hospitaltart: 31-64-3645uiauonnzzhLWDL OTILIAOUnOhio State Health System CenterStart: 10-19-2024 End: 93-84-2845Guslmy flowsheetLaurieony Erica Luke DPM Work Phone: [facility] PODIATRYStart: 10-19-2024 End: 28-08-4929Pgonvp flowsheetAnthony S Rusher DPM Work Phone: [facility] PODIATRYStart: 10-19-2024 End: 59-91-4956Izehrv outpatient new 45 minutesAnthony S Rusher DPM Work Phone: noms PODIATRYComment on above:Diabetic polyneuropathy associated with type 2 diabetes mellitus (CMS/HCC) (Primary Dx); Onychodystrophy; Onychomycosis; Corns and callosities; Paronychia of toe of left footStart: 10-19-2024 End: 56-93-5769jcwtlazmkcSMJGVUF S RUSHERNot AvailableStart: 10-03-2024 End: 69-72-7594zbpcjhsbymSyosrhohoOhioHealth Riverside Methodist Hospital Work Phone: Start: 10-03-2024 End: 88-38-1726Ulegcvg encounter procedureAtrium Health Physician GroupBLYTHED[facility] Work Phone: Start: 08-26-2022 End: 93-89-5734phnbminsunFC DIOGENES HOY .Facility:O6Filoo: 08-20-2022 End: 77-86-3997cuceybxlccFI DIOGENES HOY .Facility:Q0Woawk: 07-30-2022 End: 37-43-5369wpiurzqnizKV DIOGENES HOY .Facility:A7Snfen: 03-02-2022 End: 07-73-7569utoqsphaymTS SRINATH Márquezcility:T3Hzwfa: 02-19-2022 End: 87-19-4940qvctuflaegJE DIOGENES HOY .Facility:J5Bxnkn: 01-15-2022 End: 16-19-0165yjqhdliqznAJ DIOGENES HOY .Facility:X8Kwltj: 04-06-2018 End: 93-17-6339Xrmvwxc encounter procedureHUMBERTO [facility] Centerart: 09-10-2017 End: 74-95-7296Cfburej encounter procedureMain [facility]: 07-23-2017 End: 59-44-0942Porcvke encounter procedureCESAR [facility]: 07-23-2017 End: 11-05-3832Lenhhvr encounter procedureKALEB RODRIGUEZProvidence Hospital: 06-13-2017 End: 70-44-9802Xiulxfjdzz and management of inpatientASIF MAHMOODFacility:[facility] Procedures DateProcedureProcedure DetailPerforming ClinicianStart: 70-00-8735ZDN screening DR DIOGENES CASIANO .Comment on above:Performed By: #### PTT, PT #### [facility] [address] [place] [address] Dr. Artem Rojas Plan of Treatment DateCare ActivityDetailAuthorStart: 05-03-2025 End: 84-92-1898Hjgzcmw encounter khoqsjkzw84/19/2025 9:00 AM EST Procedure Visit [facility] [address] [place] [address] Home Luke DPM [address] [place] [address] [facility] Wei PodiatryStart: 63-65-0979Gvitdtnmd vaccination [facility] HealthcareStart: 01-25-2025 End: 83-98-4394Glydllu encounter gpoktidzj24/13/2025 9:15 AM EDT Procedure Visit [facility] [address] [place] [phone] Home Luke DPM [address] [place] [address] [facility]ODIATRYStart: 10-19-2024 End: 46-00-8609Zmohfkr encounter ozhhuqzah21/07/2025 10:00 AM EDT Office Visit [facility] [address] [place] [address] Home Luke, DPStephania [address] [place] [address] ArrivedNOMS PODIATRYComment on above:ArrivedStart: 32-91-9666Hdczutk referralUniversity Hospitals Beachwood Medical Center Work Phone: Start: 95-37-3099Djxyxctapwfb Vaccine: 65+ Years (2 of 2 - PPSV23)Pneumococcal Vaccine: 65+ Years (2 of 2 - PPSV23)[facility] Patient referralUniversity Hospitals Beachwood Medical Center Work Phone: Immunizations Immunization DateImmunizationNotesCare ZdgeywliFmwexkjb86-37-5264uavsyhxie virus vaccine, unspecified formulationHome Luke DPM Work Phone: NOBarnes-Jewish Saint Peters HospitalOfarqzjgpi31-59-2676ENIPH-47 mRNA, Comirnaty (Pfizer)[facility]03-08-2021COVID-19 mRNA, Comirnaty (Pfizer)[facility] Payers DatePayer CategoryPayerPolicy [id number] ([facility]) ..[id number] 2022Medicaid ..[id number] [id number] 2007MedicareMEDICARE [id number] of Defense ( and others)[id number] [id number] 1942Unknown [id number] 2.16.840.1.420019.3.57[id number] 2.16.840.1.028577.3.57[id number] 2.16.840.1.612487.3.57[id number] 2.16.840.1.514536.3.57[id number] 2.16.840.1.037539.3.57[id number] 2.16.840.1.754043.3.57[id number] 2.16.840.1.398623.3.57[id number] 2.16.840.1.119480.3.579.2.1259Department of Defense ( and others) for [id number] Social History DateTypeDetailFacilityStart: 11-03-2023 End: 64-46-4075Iipphgc smoking status NHISEx-smoker (finding)[facility] Campustart: 84-63-6592KdrDtpi (finding)[facility] Campustart: 38-37-4844Szg Assigned At BirthMaleFSumma Health Barberton CampusTobacco smoking status NHISTobacco smoking consumption unknownNOMS HealthcareStart: 14-92-3958Skb assigned at birthNot on fileNOID HealthcareStart: 36-73-2586Mtpiex identityNot on fileLIFEPOINT HOSPITALS HealthcareHistory of tobacco use Current smokerNOMS HealthcareHistory of tobacco useCigarette SmokerNOMS HealthcareStart: 11-97-8228Ctzwcjd use and exposureSmokeless tobacco non-user [facility] HealthcareStart: 10-19-2024 End: 07-88-1837Voimxqafq beverage intakeEx-drinker (finding)[facility] Start: 81-71-0363Ljkeuws of Social functionNOMS Healthcare Progress note 04-17-2025 Note Date & RmcyTtdxGfgqdkyj48-32-9418 NoteUT Cardiology - [facility] Subjective Desean Landry Jr. [...] Update 07/08/2017: He was admitted recently to [facility] after falling and having rhabdomyolysis. He was hydrated. He did well. This was possibly related to deconditioning and he is getting physical therapy. He will be soon discharged to home from the long-term. otherwise he has no issues. Update 02/04/2018: [...] exertion. His main iss (more content not included)...[facility] History of Present illness Narrative 01-25-2025 Note Date & PqtpJogrHiydkpgt17-66-1583 History of Present illness Narrative* Home Luke, [facility] - 01/25/2025 9:15 AM EDT Images [...] utilizing a nail nipper and electric bur crankshaft grinder without incident. A sterile #15 blade [...] understanding. Home Luke DPM documented in this encounterNOID Healthcare History of Present illness Narrative 10-19-2024 Note Date & NrdnMldkSnsmxywb63-38-8712 History of Present illness Narrative* Home Luke DPM - 10/19/2024 10:00 AM EDT Images from the original note were not included. Subjective Patient ID: Desean Landry Jr is a 83 y.o. 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 Has been bothersome for a couple of months. Pt states he gets his nails trimmed at wound care. ). HPI This is a new patient who presents to clinic today with concern of left great toe pain. Patient states that his nail is very thick and he typically gets them trimmed at the [facility]. It sounds like his toe has [...] polyneuropathy associated with type 2 diabetes mellitus (CMS/[facility]) E11.42 2. 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 Onychomycosis [...] utilizing a nail nipper and electric bur crankshaft grinder without incident. A sterile #15 bladewas [...] understanding. Home Luke DPM [facility] 10-[facility]-2024 Note Date & WznvWvlfAcqqdjwk44-17-3743 Hospital Discharge instructionsAmbulatory Orders* Referral to Podiatry Time Frame: 10/03/24, Location: None Selected [facility] Work Phone: Evaluation note Note Date & TypeNoteFacilityEvaluation noteNo assessment information available [facility] Work Phone: Evaluation note Note Date & TypeNoteFacilityEvaluation note* Diagnosis Diabetic polyneuropathy associated with type 2 diabetes mellitus ([facility]/HCC)- Primary Onychodystrophy Other specified disease of nail Onychomycosis Dermatophytosis of nail Corns and callosities Paronychia of toe of left foot documented in this encounter [facility] Evaluation note Note Date & TypeNoteFacilityEvaluation note* Diagnosis Onychodystrophy- Primary Other specified disease of nail Onychomycosis Dermatophytosis of nail Corns and callosities Diabetic polyneuropathy associated with type 2 diabetes mellitus (HCC) documented in this encounter [facility] Healthcare Summary Purpose Family History No Family [...] and content) DATE CREATED AUTHOR 12/08/2017 [facility] DATE CREATED AUTHOR AUTHOR'S ORGANIZ ATION 05/18/2018 [facility] DATE CREATED AUTHOR AUTHOR'S ORGANIZ ATION 01/16/2021 [facility] DATE CREATED AUTHOR AUTHOR'S ORGANIZ ATION 06/06/2021 [facility] DATE CREATED AUTHOR AUTHOR'S ORGANIZ ATION 09/02/2022 [facility] DATE CREATED AUTHOR AUTHOR'S ORGANIZ ATION 01/26/2025 [facility] DATE CREATED AUTHOR AUTHOR'S ORGANIZ ATION 04/17/2025 [facility] Care Teams (unrecognized sec tion and content) Team Status: Active Member Role Status Dates Diogenes Casiano MD Primary Care Provider Active Team Status: Inactive Member Role Status Dates Diogenes Casiano MD Primary Care Provider Active Start: October 03, 2024 End: October 03, 2024Murray Mcallister ProviderActiveStart: October 03, 2024 End: October 03, 2024Team MemberRelationshipSpecialtyStart DateEnd Date Diogenes Casiano MD [address] [place] [address] [facility]CP - [facility] Medicine10/19/24Team MemberRelationshipSpecialtyStart DateEnd Date Diogenes Casiano MD [address] [place] [address] PCP - [facility]En[facility] Medicine10/19/24Team MemberRelationshipSpecialtyStart DateEnd Date Diogenes Casiano MD [address] [place] [address] PCP - GeneralFamily Medicine10/19/24Team MemberRelationshipSpecialtyStart DateEnd Date Diogenes Casiano MD [address] [place] [address] PCP - GeneralFamily Medicine10/19/24 Goals (unrecognized section and content) Goals may be documented in a n alternate section Reason for Visit (unrecogniz ed section and content) ReasonCommentsToenail Care83 yo TRANSPLANTER presents 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 [employer] provides no warranty or guarantee of the accuracy or completeness of information in this document.
[2025-05-04 10:19] LABS: Hematocrit 46.8 % (42.0-54.0); Hemoglobin 15.6 g/dL (14.0-18.0); Immature Granulocytes Abs Auto 0.03 10^3/uL (0.00-0.03); Immature Granulocytes Pct Auto 0.3 % (0.0-0.5); Lymphocytes Absolute Auto 1.8 10^3/uL (1.2-3.8); Mean Corpuscular HGB Conc 33.3 g/dL (29.9-35.2); Mean Corpuscular Hemoglobin 31.6 pg (25.9-34.0); Mean Corpuscular Volume 94.7 fL (80.0-94.0); Platelet Count 187 10^3/uL (150-450); Red Blood Count 4.94 10^6/uL (4.70-6.10); White Blood Count 9.6 10^3/uL (4.0-11.0)
[2025-05-04 10:58] LABS: Iron 90.0 ug/dL (65.0-175.0)
[2025-05-04 11:07] LABS: Alanine Aminotransferase 24 U/L (16-63); Albumin Globulin Ratio 1.0; Albumin Level 3.4 g/dL (3.4-5.0); Alkaline Phosphatase 82 U/L (46-116); Anion Gap 11.5; Aspartate Amino Transferase 18 U/L (15-37); Blood Urea Nitrogen 17.0 mg/dL (7.0-18.0); Calcium 9.1 mg/dL (8.5-10.1); Carbon Dioxide 29.0 mmol/L (21.0-32.0); Chloride 105 mmol/L (98-107); Cholesterol 124 mg/dL (<=200); Estimated GFR (African America >60 (>=60 mL/min/1.73m^2); Estimated GFR (Non-African Ame >60 (>=60 mL/min/1.73m^2); Free T3 2.24 pg/mL (2.18-3.98); Globulin 3.3 g/dL; Glucose 95 mg/dL (74-106); HDL Cholesterol 37 mg/dL (40-60); NT Pro B Type Natriuretic Pept 693.0 pg/mL (<=1800.0); Potassium 4.5 mmol/L (3.5-5.1); Sodium 141 mmol/L (136-145); Thyroid Stimulating Hormone 1.882 uIU/mL (0.358-3.740); Total Protein 6.7 g/dL (6.4-8.2); Triglycerides 112 mg/dL (<=150); VLDL CHOLESTEROL 22.4 mg/dL
== END 2025-05-04 09:04 | disposition home or self-care (01) ==
LOC: LAB 09:05
PROVIDERS: PCP Family Medicine; Visit Provider Family Medicine
DX: D50.9 Iron deficiency anemia, unspecified (principal); I10 Essential (primary) hypertension; I73.9 Peripheral vascular disease, unspecified; I48.21 Permanent atrial fibrillation; E11.9 Type 2 diabetes mellitus without complications; L03.90 Cellulitis, unspecified
CPT/HCPCS: 36415; 80053; 80061; 82306; 83036; 83540; 83880; 84436; 84443; 84481; 85025

== ENCOUNTER 2025-05-04 09:51 | Outpatient (OUT) | payer MEDICARE, OTHER, MEDICAID, SELFPAY ==
--- NOTE | 2025-05-04 09:00 | CA_ITS ---
Patient Name: DESEAN LANDRY MR#: [id number] : 1940 Exam Date: 05/04/2025 Ordering Doctor: DR DRAGAN MOORE M.D. ECHOCARDIOGRAM REPORT PROCEDURE: CA ECHO DOPPLER COMPLETE INDICATIONS: Atrial fibrillation, pacemaker COMPARISON: None. DESCRIPTION: COMPLETE ECHOCARDIOGRAM Real-time transthoracic echocardiography with 2D, M-mode, spectral and color flow Doppler performed. QUALITY: Technical quality was good. LEFT VENTRICLE: Normal chamber size. Normal left ventricular wall thickness. Normal systolic function. LV EF: Normal left ventricular ejection fraction, (55%). DIASTOLIC: Not adequately assessed due to heart rhythm. ATRIAL SEPTUM: Visually appears intact. LEFT ATRIUM: Severe dilatation. RIGHT ATRIUM: Severe dilatation. RIGHT VENTRICLE: Mild dilatation. Normal systolic function. Pacer wire present. TRICUSPID VALVE: Normal mobility and thickness. No stenosis with trivial regurgitation. No evidence of pulmonary hypertension. RVSP 30 mmHg MITRAL VALVE: Normal mobility and thickness. No evidence of mitral valve stenosis. There is no mitral annular calcification. No mitral regurgitation. AORTIC VALVE: Normal trileaflet appearance. Thickened aortic valve. Normal leaflet mobility. No evidence of aortic valve stenosis. Mild to moderate aortic regurgitation. AORTIC ROOT: Normal diameter and appearance measuring 2.9 cm. PULMONIC VALVE: Normal thickness and mobility. No stenosis. No regurgitation. PERICARDIUM: No evidence of pericardial effusion. IVC: Collapses with inspirations. PLEURA: CONCLUSION: 1. Normal left ventricular size and systolic function. Estimated LVEF is 55%. 2. Mildly dilated right ventricle with normal systolic function. 3. Severe biatrial dilatation. 4. Mild to moderate aortic regurgitation. 5. Normal right-sided pressures. Adult Echocardiography Procedure Report Left Ventricle LVEDD (3.7 - 5.6 cm): 4.48 cm LVESD (2.2 - 4.0 cm): 3.44 cm LVIVS thickness (0.6 - 1.2 cm): 0.97 cm LVPW thickness (0.5 - 1.0 cm): 1.01 cm LVOT Max Gradient: 1.40 mm[Hg], 2.14 mm[Hg] LVOT Area (cm2): 0.66 m/s Peak Velocity (LVOT): 0.59 m/s, 0.73 m/s LVOT Diameter 2.15 cm Left Atrium LA Volume Index (2D A2C): 33.77 ml/m2 Left Atrium Systolic Dimension: 4.54 cm Mitral Valve Mitral Valve E-Wave Peak Velocity: 0.54 m/s Right Ventricle Aorta AO Root Diam: 2.90 cm Aortic Valve AoV Area (Peak Demetri): 3.35 cm2, 3.43 cm2, 3.28 cm2 Deceleration Laporte: 1.61 m/s2, 1.82 m/s2 Pressure Half-Time: 473.63 ms, 445.86 ms Peak Velocity(Antegrade Flow): 0.63 m/s, 0.81 m/s Peak Gradient(Antegrade Flow): 1.58 mm[Hg], 2.64 mm[Hg] Tricuspid Valve Peak Velocity (Regurgitant Flow): 2.36 m/s, 2.28 m/s, 2.11 m/s Pulmonic Valve Mean Gradient: 2.06 mm[Hg], 1.73 mm[Hg] Mean Velocity: 0.65 m/s, 0.60 m/s Peak Velocity: 1.14 m/s Peak Gradient: 5.83 mm[Hg], 4.53 mm[Hg] Right Atrium Right Atrium Systolic Pressure: 89.73 ml, 89.73 ml Dictated by: Dragan Moore M.D. on 05/05/2025 at 17:03 Approved by: Dragan Moore M.D. on 05/05/2025 at 17:07
--- OUTSIDE RECORDS SUMMARY | 2025-05-04 10:03 | XMS_ITS | CCD ---
Author Organization [facility] Care Team Providers Care [employer] Name Role Phone ARPAN CAMACHO Unavailable Unavailable SAHRA GILMORE Unavailable Unavailable DIOGENES CASIANO Unavailable Unavailable DIOGENES REN Unavailable Unavailable LORI, RENDELL Unavailable Unavailable LORI, RENDELL Unavailable Unavailable JOSE ITALO (SUPERVISOR [employer]) Unavailable Unavailable LORI, RENDELL Unavailable Unavailable LORI, [...] Unavailable Diogenes Casiano MD Primary Care Provider [phone] HOME LUKE Attending Unavailable HOME LUKE Attending Unavailable DREAD WOLF Referring Unavailable DREAD WOLF Referring Unavailable DREAD WOLF Referring Unavailable DRAGAN PEPPER Attending Unavailable Medications Current Medications MedicationDrug Class(es)DatesSig (Normalized)Sig (Original)apixaban 5 mg oral tablet (5 sources)Factor Xa InhibitorStart: 33-59-2838efaz 1 tablet by mouth once daily Apixaban (Eliquis) 5 mg tablet Active 5 MG PO Daily January 10, 2021 12:00am aspirin 81 mg delayed release oral tablet (4 sources)Platelet Aggregation Inhibitor, Nonsteroidal Anti-inflammatory Drug take 1 tablet by mouth once dailyaspirin 81 MG EC tablet Take 81 mg by mouth Daily Activebumetanide 1 mg oral tablet (1 source)Loop DiureticStart: 51-78-4729hhmm 1 tablet by mouth once daily Bumetanide 1 mg tablet Active 1 MG PO Daily January 10, 2021 12:00am cholecalciferol 0.025 mg oral capsule (4 sources)Vitamin Dtake 1 capsule by mouth once dailycholecalciferol (Vitamin D-3) 25 MCG (1000 UT) capsule Take 1,000 Units by mouth Daily Activeclotrimazole 10 mg/ml topical cream (1 source)Azole AntifungalStart: 68-87-5457Rgcbrbnhcksp (Antifungal (Clotrimazole)) 1 % cream Active 1 APPLIC TOPICAL Twice daily 45 14 November 03, 2023 12:00amglimepiride 2 mg oral tablet (4 sources)Sulfonylureatake 1 tablet by mouth before mealtimeglimepiride (Amaryl) 2 MG tablet Take 2 mg by mouth in the morning. Take before meals. Activehydrocortisone acetate 25 mg rectal suppository (1 source)CorticosteroidStart: 48-24-3248Wbzqquvvkapkmr Acetate 25 mg suppository Active 25 MG [place] Twice daily January 10, 2021 12:00amhydrocortisone acetate 25 mg/ml / pramoxine hydrochloride 10 mg/ml topical cream (1 source)CorticosteroidStart: 60-75-8305Kbphygqkbfsvsk-Pramoxine 2.5-1 % cream Active 1 APPLIC TOPICAL Twice daily January 10, 2021 12:00amhyoscyamine sulfate 0.125 mg sublingual tablet (1 source)Start: 21-62-8403obhc 1 tablet by mouth once dailyHyoscyamine Sulfate 0.125 mg tablet, sublingual Active 0.125 MG PO Daily January 10, 2021 12:00am lisinopril 5 mg oral tablet (1 source)Angiotensin Converting Enzyme InhibitorStart: 12-46-6831agxw 1 tablet by mouth once dailyLisinopril 5 mg tablet Active 5 MG PO Daily January 10, 2021 12:00ammetFORMIN hydrochloride 500 mg oral tablet (1 source)BiguanideStart: 97-54-3548effc 1 tablet by mouth twice dailyMetformin 500 mg tablet Active 500 MG PO Twice daily January 10, 2021 12:00ammetoprolol tartrate 50 mg oral tablet (1 source)beta-Adrenergic BlockerStart: 80-40-7036Ipwjqgcnjh Tartrate 50 mg tablet Active 25 MG PO Twice daily January 10, 2021 12:00amsimvastatin 20 mg oral tablet (5 sources)HMG-CoA Reductase InhibitorStart: 15-19-7161norq 1 tablet by mouth once dailySimvastatin 20 mg tablet Active 20 MG PO Daily January 10, 2021 12:00am spironolactone 50 mg oral tablet (4 sources)Aldosterone Antagonisttake 1 tablet by mouth once dailyspironolactone (Aldactone) 50 MG tablet Take 50 mg by mouth Daily Active Problems Active Problems Problem ClassificationProblemDateDocumented DateEpisodic/ChronicAlcohol-related disorders (1 source)Alcohol dependence with withdrawal, unspecified; Translations: [ALCOHOL DEPENDENCE WITH WITHDRAWAL,UNSPECIFIED]Onset: 51-81-5896NojwabrWgltdzt dysrhythmias (1 source)Chronic atrial fibrillation; Translations: [CHRONIC ATRIAL FIBRILLATION]Onset: 88-59-5467MmibysbMcwmyuf dysrhythmias (4 sources)Bradycardia, unspecified; Translations: [BRADYCARDIA UNSPECIFIED] Onset: 94-47-1240VsgamaszUyqcchu obstructive pulmonary disease and bronchiectasis (1 source)Chronic obstructive pulmonary disease, unspecified; Translations: [COPD UNSPECIFIED]Onset: 53-79-0091KtvuvtlRbiiiybzwa disorders (4 sources)Presence of cardiac pacemaker; Translations: [Encounter for adjustment and management of other partof cardiac pacemaker]Onset: 03-01-2025 ChronicCongestive heart failure; nonhypertensive (1 source)Unspecified diastolic (congestive) heart failure; Translations: [UNSPECIFIED DIASTOLIC HEART FAILURE]Onset: 28-55-1844BniotioZeunrzyukg and other anemia (1 source)Anemia, unspecified; Translations: [ANEMIA UNSPECIFIED]Onset: 09-91-3141RqnwtjqeJeugcnxf mellitus with complications (3 sources)Polyneuropathy due to type 2 diabetes mellitus; Translations: [Type 2 diabetes mellitus with diabetic polyneuropathy]31-39-8551NqdhaynDzjywcec mellitus without complication (1 source)Other abnormal glucose; Translations: [OTHER ABNORMAL GLUCOSE]Onset: 40-88-6460HujxuvzjWlmjbsvlp of lipid metabolism (4 sources)Hyperlipidemia, unspecified; Translations: [Mixed hyperlipidemia] Onset: 30-53-0369FhjuasnInqbgrqam hypertension (7 sources)Essential (primary) hypertension; Translations: [ESSENTIAL (PRIMARY) HYPERTENSION]Onset: 18-37-1625XehkvymLfmlojcw Injury - Fall (1 source)Other fall on same level, initial encounter; Translations: [OTHER FALL ON SAME LEVEL, INITIAL ENCOUNTER]Onset: 15-86-2672Ktqcflqorsra conditions of male genital organs (1 source)Balanitis; Translations: [Balanitis]44-01-5439HvykixnMjtbhav and fatigue (1 source)Other fatigue; Translations: [OTHER FATIGUE]Onset: 02-07-4496Nhifmooj Mycoses (3 sources)Onychomycosis; Translations: [Tinea unguium]88-49-2618Meanyyig Nutritional deficiencies (1 source)Vitamin D deficiency, unspecified; Translations: [VITAMIN D DEFICIENCY UNSPECIFIED]Onset: 38-24-5173HjffwiyHzike diseases of veins and lymphatics (2 sources)Venous insufficiency (chronic) (peripheral); Translations: [Venous insufficiency (chronic) (peripheral)]Onset: 41-56-2663EbvjwxwhVftnl lower respiratory disease (1 source)Other nonspecific abnormal finding of lung field; Translations: [Other nonspecific abnormal findingof lung field]Onset: 39-54-2448YgnvbgkfZpgwh lower respiratory disease (1 source)Dyspnea, unspecified; Translations: [DYSPNEA UNSPECIFIED]Onset: 05-75-5612MzpdbvkfMdqak non-traumatic joint disorders (1 source)Pain in unspecified joint; Translations: [PAIN IN UNSPECIFIED JOINT] Onset: 82-75-4606UidfsmqtMoxoj screening for suspected conditions (not mental disorders or infectious disease) (1 source)Encounter for screening for malignant neoplasm of prostate; Translations: [ENC SCREEN MALIG NEOPLASM PROSTATE]Onset: 70-73-1149QnfphzmwNdecs skin disorders (1 source)Callosity on toe; Translations: [Corns and callosities]10-03-2024 EpisodicOther skin disorders (3 sources)Dystrophia unguium; Translations: [Nail dystrophy]30-56-1920Ijbasnxe Other skin disorders (3 sources)Callosity; Translations: [Corns and callosities]93-96-0879Xbtleyws Other upper respiratory infections (1 source)Acute sinusitis, unspecified; Translations: [ACUTE SINUSITIS UNSPECIFIED]Onset: 35-66-8459NgkhtpnrXnlgzuuwfi and visceral atherosclerosis (1 source)Peripheral vascular disease, unspecified; Translations: [PERIPHERAL VASCULAR DISEASE UNS]Onset: 98-20-9444HpjemqaLduqjgev; pneumothorax; pulmonary collapse (5 sources)Pleural effusion, not elsewhere classified; Translations: [Pleural plaque without asbestos]Onset: 63-17-7095MnlvxbfzJgbg and subcutaneous tissue infections (2 sources)Paronychia of toe of left foot; Translations: [Cellulitis of left toe]52-01-3053JutlumelRqkhznydlttl (2 sources)Unknown / UNK(Unknown)Onset: 54-56-2695Zqsmnbcrzluj (4 sources)CONTACT W/AND (SUSP) EXPOS COVID-19; Translations: [CONTACT W/AND (SUSP) EXPOS COVID-19]Onset: 64-21-5512Ejlhljxflljf (2 sources)Permanent atrial fibrillation; Translations: [Permanent atrial fibrillation]Onset: 06-05-2022 Past or Other Problems Problem ClassificationProblemDateDocumented DateEpisodic/ChronicE Codes: Fall (1 source)Unspecified fall, initial encounter; Translations: [UNSPECIFIED FALL INITIAL ENCOUNTER]Onset: 88-21-1169ShrfkefuZomsxusnza obstruction without hernia (4 sources)Partial intestinal obstruction, unspecified as to cause; Translations: [PART INTESTINAL OBST UNS ASTO CAU]Onset: 99-74-1888Cuhinooo Nonmalignant breast conditions (4 sources)Unspecified lump in right breast, subareolar; Translations: [UNSPEC LUMP IN RT BREAST SUBAREOLAR]Onset: 35-72-7690OcpfzqszAdzp wounds of head; neck; and trunk (1 source)Laceration without foreign body of scalp, initial encounter; Translations: [LACERATION W/O FB SCALPINITIAL ENC]Onset: 99-08-8861WnugowqjDlwut aftercare (1 source)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; Translations: [HEALTH AND SAFETY TECHNICIAN (CURRENT) USE OF ANTICOAGULANTS]Onset: 00-79-9518RhkrabfeJnosa aftercare (1 source)[facility] (current) use of oral hypoglycemic drugs; Translations: [HEALTH AND SAFETY TECHNICIAN USE ORAL HYPOGLYCEMIC DX]Onset: 96-31-1625HvaargfcVwmki aftercare (1 source)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; Translations: [OTH FDC CURRENT DRUG THERAPY]Onset: 89-85-7815FzojtdnuPoeoz connective tissue disease (3 sources)Rhabdomyolysis; Translations: [RHABDOMYOLYSIS]Onset: 06-13-2017 EpisodicOther fractures (1 source)Unspecified displaced fracture of sixth cervical vertebra, initial encounter for closed fracture; Translations: [UNS DSPL FX 6TH CV INIT JAY FX] Onset: 01-19-9013GyssdjyfKvzyl injuries and conditions due to external causes (3 sources)Unspecified injury of head, initial encounter; Translations: [UNSPECIFIED INJURY HEAD INITIAL ENC]Onset: 28-13-4963BpbghgicYyfgj upper respiratory disease (1 source)Other diseases of bronchus, not elsewhere classified; Translations: [Other diseases of bronchus, not elsewhere classified]Onset: 91-56-7682Irmhmcvd Screening or history of mental health and substance abuse (2 sources)Personal history of nicotine dependence; Translations: [PERSONAL HISTORY OF NICOTINE DEPENDENCE]Onset: 16-73-0252QgzxbzqtDnwvxixsshi; intervertebral disc disorders; other back problems (1 source)Dorsalgia, unspecified; Translations: [DORSALGIA, UNSPECIFIED]Onset: 26-11-9941YgykbbaqYjztybiycgs injury; contusion (1 source)Contusion of scalp, initial encounter; Translations: [CONTUSION SCALP INITIAL ENCOUNTER]Onset: 47-05-5343VinvslhqPflzcudxtsfl (1 source)CONTACT W/AND (SUSP) EXPOS COVID-19; Translations: [CONTACT W/AND (SUSP) EXPOS COVID-19]Onset: 08-20-2022 Results Test NameValueInterpretationReference RangeFacilityOffice Visiton 04-17-2025 Follow-up [id number] Desean Landry Jr. 1940 M Date Provider Department Center 04/17/2025 DRAGAN BALDWIN CARD [facility] Family History Problem Relation Age of Onset Cancer Mother Diabetes Brother Other Brother Family Status - Relation Status Age at Mother Brother Level of Service:47994 [place] OFFICE/OUTPATIENT ESTABLISHED MOD [facility] Only[facility] 23-12-1894Hptrul [id number] Desean Landry Jr. 1940 M Date Provider Department Center 02/28/2025 DREAD [facility] Family History Problem Relation Age of Onset Cancer Mother Family Status - Relation Status Age at MotherNormalUniversity Wayne HospitalCBC AUTO DIFFon 07-11-9578CMCL # 0.1 103/ulNormal0.0-0.1[facility] HospitalComment on above:Performed By: #### CBC #### [facility] [address] [address] [address] Artem Choesophils/100 WBC (Bld)1.0 %Normal0.2-2.0The [facility] Comment on above:Performed By: #### CBC #### [facility] [address] [address] [address] Artem López #0.2 103/ulNormal0.0-0.7The [facility] CenterComment on above: Performed By: #### CBC #### [facility] [address] [address] [address] Artem Daveosinophils/100 WBC (Bld)2.0 %Normal0.9-7.0[facility] Comment on above:Performed By: #### CBC #### [facility] [address] [place] [address] Dr. Artem Daverythrocyte distribution width (RBC) [Ratio]13.1 %Bfokuw18.0-15.0 [facility] HospitalComment on above:Performed By: #### CBC #### [facility] [address] [place] [address] Dr. Artem RojasHematocrit (Bld) [Volume fraction]43.8 %Xyumoz57.0-54.0The [facility] CenterComment on above:Performed By: #### CBC #### [facility] [address] [place] [address] Dr. Artem RojasHemoglobin (Bld) [Mass/Vol]14.5 g/jGZnlddk69.0-18.0The [facility] CenterComment on above:Performed By: #### CBC #### [facility] [address] [place] [address] Dr. Artem De Oliveira #0.07 10e3/ulCritically high0.00-0.03The [facility] Comment on above:Performed By: #### CBC #### [facility] [address] [place] [address] Dr. Artem De Oliveira %0.8 %Critically high0.0-0.5The [facility] CenterComment on above:Performed By: #### CBC #### [facility] [address] [place] [address] Dr. Artem MillsH #1.8 103/ulNormal1.2-3.8The [facility] CenterComment on above:Performed By: #### CBC #### [facility] [address] [place] [address] Dr. Artem Avalosmphocytes/100 WBC (Bld)20.0 %Critically low20.5-60.0The [facility] CenterComment on above:Performed By: #### CBC #### [facility] [address] [place] [address] Dr. Artem Ruelas DIFF REQNONormalThe [facility] CenterComment on above: Performed By: #### CBC #### [facility] [address] [place] [address] Dr. Artem Vega (RBC) [Entitic mass]30.0 wgOmuitl27.9-34.0The [facility] HospitalComment on above:Performed By: #### CBC #### [facility] [address] [place] [address] Dr. Artem Vega (RBC) [Mass/Vol]33.1 g/rDKaedej27.9-35.2The [facility] CenterComment on above:Performed By: #### CBC #### [facility] [address] [place] [address] Dr. Artem Vega (RBC) [Entitic vol]90.7 dXHelglq36.0-94.0The [facility] CenterComment on above:Performed By: #### CBC #### [facility] [address] [place] [address] Dr. Artem Bowen #0.8 103/ulNormal0.3-0.8The [facility] CenterComment on above:Performed By: #### CBC #### [facility] [address] [place] [address] Dr. Artem Cooleyocytes/100 WBC (Bld)8.7 %Normal1.7-12.0The [facility] Comment on above:Performed By: #### CBC #### [facility] [address] [place] [address] Dr. Artem Farrell #6.1 103/ulNormal1.4-6.5The [facility] CenterComment on above:Performed By: #### CBC #### [facility] [address] [place] [address] Dr. Artem Dossutrophils/100 WBC (Bld)67.5 %Lrslls45.0-75.0The [facility] CenterComment on above:Performed By: #### CBC #### [facility] [address] [place] [address] Dr. Artem RojasPlatelet mean volume (Bld) [Entitic vol]9.7 fLNormal9.5-13.5The [facility] CenterComment on above:Performed By: #### CBC #### [facility] [address] [place] [address] Dr. Artem RojasPLT333 103/fdTgifwp075-927Tcq [facility] CenterComment on above: Performed By: #### CBC #### [facility] [address] [place] [address] Dr. Artem RojasRBC4.83 106/ulNormal4.70-6.10The [facility] CenterComment on above:Performed By: #### CBC #### [facility] [address] [place] [address] Dr. Artem RojasWBC9.0 103/ulNormal4.0-11.0The [facility] CenterComment on above: Performed By: #### CBC #### [facility] [address] [place] [address] Dr. Artem RojasPROF CHEM 8 (BAS METB)on 37-64-0973Ddesz gap [Moles/Vol]9.4 mmol/LNormalNorwalk Memorial HospitalComment on above:Performed By: #### PTT, PT #### [facility] [address] [place] [address] Dr. Artem RojasCalcium [Mass/Vol]9.4 mg/dLNormal8.5-10.1The [facility] Comment on above:Performed By: #### PTT, PT #### [facility] [address] [place] [address] Dr. Artem RojasChloride [Moles/Vol]105 mmol/KYskcxz53-545Ans [facility] Comment on above:Performed By: #### PTT, PT #### [facility] [address] [place] [address] Dr. Artem RojasCO2 [Moles/Vol]29.3 mmol/WClyqga48.0-32.0The [facility] Comment on above:Performed By: #### PTT, PT #### [facility] [address] [address] [address] Artem RojasCreatinine [Mass/Vol]1.06 mg/dLNormal0.70-1.30The [facility] Hospitalment on above:Performed By: #### PTT, PT #### [facility] [address] [address] [address] Artem DaveGFR-AF BANGLADESHI>60Normal>=60The [facility] CenterComment on above:Performed By: #### PTT, PT #### [facility] [address] [address] [address] Artem DaveGFR-NON AF BANGLADESHI>60Normal>=60The [facility] CenterComment on above:Performed By: #### PTT, PT #### [facility] [address] [address] [address] Artem RojasGlucose [Mass/Vol]125 mg/dLCritically jlrq52-876Qhr [facility] Hospitalment on above:Performed By: #### PTT, PT #### [facility] [address] [address] [address] Artem RojasPotassium [Moles/Vol]4.3 mmol/LNormal3.5-5.1The [facility] Comment on above:Performed By: #### PTT, PT #### [facility] [address] [address] [address] Artem RojasSodium [Moles/Vol]139 mmol/XEtipnu978-333Bvf [facility] Comment on above:Performed By: #### PTT, PT #### [facility] [address] [address] [address] Artem RojasUrea nitrogen [Mass/Vol]20.0 mg/dLCritically high7.0-18.0The [facility] CenterComment on above:Performed By: #### PTT, PT #### [facility] [address] [address] [address] Artem RojasUrea nitrogen/Creatinine [Mass ratio]18.9 mg/mgNormalThe [facility] CenterComment on above:Performed By: #### PTT, PT #### [facility] [address] [place] [address] Dr. Artem RojasCovid-19 PCR ([facility])on 75-20-8646GQXD-CoV-2 (COVID-19) RNA MONICA+probe Ql (Unsp spec)Not detectedNormalNOT DETECTEDThe [facility] Comment on above:Result Comment: When [...] for this test is supported by the [place] of Health and Human Service's declaration that [...] be used).Performed By: #### PTT, PT #### [facility] [address] [place] [address] Dr. Artem Yañez A AND B AGon 05-91-6103XFGLGEBQHYOIW BELOWPremier Health Upper Valley Medical CenterComment on above:Result Comment: Negative for Flu A protein angiten. Infection due to Flu A cannot be ruled out. FluA angiten in the sample may be below the detection limit of the test.Performed By: #### PTT, PT #### [facility] [address] [place] [address] Dr. Artem RiveraUBNEGTIERNEY [facility] on above: Result Comment: Negative for Flu B protein antigen. Infection due to Flu B cannot be ruled out. FluB antigen in the sample may be below the detection limit of the test.Performed By: #### PTT, PT #### [facility] [address] [place] [address] Dr. Artem Damon AGNegativeNormalNEGATIVE SEE COMMENTThe [facility] CenterComment on above:Performed By: #### PTT, PT #### [facility] [address] [place] [address] Dr. Artem Alexander AGNegativeNormalNEGATIVE SEE COMMENTThe [facility] CenterComment on above:Performed By: #### PTT, PT #### [facility] [address] [place] [address] Dr. Artem RojasINSULINon 66-16-6485Rubzasd43.3 uIU/mLNormal2.6-24.9The [facility] CenterComment on above:Performed By: #### PTT, PT #### [facility] [address] [place] [address] Dr. Artem Erwin 61-49-1363Mrluhucudlp peptide B (Bld) [Mass/Vol]1826.0 pg/mLCritically high<=1,800.0The [facility] CenterComment on above:Performed By: #### CMP, BNP, URIC, TSH, T7, LIPID #### [facility] [address] [place] [address] Dr. Artem Cage AUTO DIFFon [id number] #0.1 103/ulNormal0.0-0.1The [facility] CenterComment on above:Performed By: #### PTT, PT #### [facility] [address] [place] [address] Dr. Artem RojasBasophils/100 WBC (Bld)1.0 %Normal0.2-2.0The [facility] Comment on above:Performed By: #### PTT, PT #### [facility] [address] [place] [address] Dr. Artem López #0.2 103/ulNormal0.0-0.7The [facility] CenterComascension borg[facility] on above: Performed By: #### PTT, PT #### [facility] [address] [place] [address] Dr. Artem Daveosinophils/100 WBC (Bld)2.4 %Normal0.9-7.0The [facility] Comment on above:Performed By: #### PTT, PT #### [facility] [address] [place] [address] Dr. Artem Daverythrocyte distribution width (RBC) [Ratio]13.8 %Bnvmeh03.0-15.0 The [facility] CenterComment on above:Performed By: #### PTT, PT #### [facility] [address] [place] [address] Dr. Artem RojasHematocrit (Bld) [Volume fraction]44.1 %Njtpfg96.0-54.0The [facility] CenterComment on above:Performed By: #### PTT, PT #### [facility] [address] [place] [address] Dr. Artem RojasHemoglobin (Bld) [Mass/Vol]14.5 g/hJAmbllm19.0-18.0The [facility] CenterComment on above:Performed By: #### PTT, PT #### [facility] [address] [place] [address] Dr. Artem De Oliveira #0.02 10e3/ulNormal0.00-0.03The [facility] CenterComment on above:Performed By: #### PTT, PT #### [facility] [address] [place] [address] Dr. Artem De Oliveira %0.2 %Normal0.0-0.5The [facility] CenterComment on above: Performed By: #### PTT, PT #### [facility] [address] [place] [address] Dr. Artem MillsH #2.1 103/ulNormal1.2-3.8The [facility] [facility] CenterComment on above:Performed By: #### PTT, PT #### [facility] [address] [place] [address] Dr. Artem Avalosmphocytes/100 WBC (Bld)24.3 %Ktsqcc50.5-60.0The [facility] CenterComment on above:Performed By: #### PTT, PT #### [facility] [address] [place] [address] Dr. Artem Ruelas DIFF REQNONormalThe [facility] CenterComment on above: Performed By: #### PTT, PT #### [facility] [address] [place] [address] Dr. Artem Vega (RBC) [Entitic mass]30.3 guNhgrnw92.9-34.0The [facility] CenterComment on above:Performed By: #### PTT, PT #### [facility] [address] [place] [address] Dr. Artem Vega (RBC) [Mass/Vol]32.9 g/rRDvvrzu43.9-35.2The [facility] CenterComment on above:Performed By: #### PTT, PT #### [facility] [address] [place] [address] Dr. Artem Vega (RBC) [Entitic vol]92.1 pPKkjzut56.0-94.0The [facility] CenterComment on above:Performed By: #### PTT, PT #### [facility] [address] [place] [address] Dr. Artem Bowen #0.8 103/ulNormal0.3-0.8The [facility] CenterComment on above:Performed By: #### PTT, PT #### [facility] [address] [place] [address] Dr. Artem Cooleyocytes/100 WBC (Bld)9.0 %Normal1.7-12.0The [facility] Comment on above:Performed By: #### PTT, PT #### [facility] [address] [place] [address] Dr. Artem Farrell #5.6 103/ulNormal1.4-6.5The [facility] CenterComment on above:Performed By: #### PTT, PT #### [facility] [address] [place] [address] Dr. Artem Dossutrophils/100 WBC (Bld)63.1 %Jewbwz80.0-75.0The [facility] CenterComment on above:Performed By: #### PTT, PT #### [facility] [address] [place] [address] Dr. Artem Linderlet mean volume (Bld) [Entitic vol]10.0 fLNormal9.5-13.5The [facility] CenterComment on above:Performed By: #### PTT, PT #### [facility] [address] [place] [address] Dr. Artem RojasPLT193 103/dbKpvvpu531-812Pit [facility] CenterComment on above: Performed By: #### PTT, PT #### [facility] [address] [place] [address] Dr. Artem RojasRBC4.79 106/ulNormal4.70-6.10The [facility] CenterComment on above:Performed By: #### PTT, PT #### [facility] [address] [place] [address] Dr. Artem RojasWBC8.8 103/ulNormal4.0-11.0The [facility] CenterComment on above: Performed By: #### PTT, PT #### [facility] [address] [place] [address] Dr. Artem RojasFRERIK THYROXINE INDEX T7on 29-66-8557MIK3.39Xvjnoj5.30-4.50The [facility] CenterComment on above:Performed By: #### CMP, BNP, URIC, TSH, T7, LIPID #### [facility] [address] [place] [address] Dr. Artem RojasT3U35.0 %Tbvnmb85.0-40.0The [facility] CenterComment on above: Performed By: #### CMP, BNP, URIC, TSH, T7, LIPID #### [facility] [address] [place] [address] Dr. Artem RojasT4 [Mass/Vol]7.20 ug/dLNormal4.50-12.10The [facility] on above:Performed By: #### CMP, BNP, URIC, TSH, T7, LIPID #### [facility] [address] [address] [address] Artem RojasGLYCOHEMOGLOBIN A1Con 30-28-1834WVW RECOMMENDATIONSEE BELOWCleveland Clinic Euclid HospitalComascension borgess allegan hospital on above:Result Comment: ADA RECOMMENDED LIMIT 4.0 - 6.0 ADA THERAPEUTIC TARGET < 7.0 ACTION SUGGESTED > 7.0Performed By: #### A1C #### [facility] [address] [address] [address] Artem RojasGlucose [Mass/Vol]128 mg/dLNoUniversity Hospitals Conneaut Medical CenterComascension borgess allegan hospital on above:Performed By: #### A1C #### [facility] [address] [place] [address] Dr. Artem RojasHbA1c (Bld) [Mass fraction]6.1 %Normal4.5-6.2[facility] HospitalComasc[facility]org[facility] alle[facility] on above:Performed By: #### A1C #### [facility] [address] [place] [address] Dr. Artem RojasLIPID PROFILEon [id number]-HDL RATIO NORMSEE [facility] HospitalComascension [facility]org[facility] on above:Result Comment: 3.3 - 4.4 LOW RISK 4.4 - 7.1 AVERAGE RISK 7.1 - 11.0 MODERATE RISK >11.0 HIGH RISKPerformed By: #### CMP, BNP, URIC, TSH, T7, LIPID #### [facility] [address] [place] [address] Dr. Artem RojasCholesterol [Mass/Vol]157 mg/dLNormal<=200The [facility] Comment on above:Performed By: #### CMP, BNP, URIC, TSH, T7, LIPID #### [facility] [address] [place] [address] Dr. Artem RojasCholesterol in HDL [Mass/Vol]51 mg/yQDrjnlr66-88Mpq [facility] on above:Performed By: #### CMP, BNP, URIC, TSH, T7, LIPID #### [facility] [address] [place] [address] Dr. Artem RojasCholesterol in LDL [Mass/Vol]86.6 mg/dLNormalThe [facility]ust HospitalComment on above:Performed By: #### CMP, BNP, URIC, TSH, T7, LIPID #### [facility] [address] [place] [address] Dr. Artem RojasCholestercarmen.total/Cholesterol in HDL [Mass ratio]3.1 {ratio} NormalThe [facility] CenterComment on above:Performed By: #### CMP, BNP, URIC, TSH, T7, LIPID #### [facility] [address] [place] [address] Dr. Artem Stacy NORMAL> or = 60 mg/dl - LOW CARDIOVASCULAR RISK <40 mg/dl - HIGH CARDIOVASCULAR RISKPremier Health Upper Valley Medical CenterComment on above:Performed By: #### CMP, BNP, URIC, TSH, T7, LIPID #### [facility] [address] [place] [address] Dr. Artem Mensah CALC NORMALSEE BELOWPremier Health Upper Valley Medical CenterComment on above:Result Comment: <100 mg/dl OPTIMAL 100 - 129 mg/dl NEAR OR ABOVE OPTIMAL 130 - 159 mg/dl BORDERLINE HIGH 160 - 189 mg/dl HIGH >190 mg/dl VERY HIGH Performed By: #### CMP, BNP, URIC, TSH, T7, LIPID #### [facility] [address] [place] [address] Dr. Artem RojasTriglyceride [Mass/Vol]97 mg/dLNormal<=150The [facility] Comment on above:Performed By: #### CMP, BNP, URIC, TSH, T7, LIPID #### [facility] [address] [place] [address] Dr. Artem BhattiLDL CALC19.4 mg/dLNoUniversity Hospitals Conneaut Medical CenterComment on above: Performed By: #### CMP, BNP, URIC, TSH, T7, LIPID #### [facility] [address] [place] [address] Dr. Artem Oseguera 14(COMP METB)on 61-41-1091Vwrczuu [Mass/Vol]3.5 g/dLNormal 3.4-5.0The [facility] CenterComment on above:Performed By: #### CMP, BNP, URIC, TSH, T7, LIPID #### [facility] [address] [place] [address] Dr. Artem RojasAlbumin/Globulin [Mass ratio]1.1 {ratio}NormalThe [facility] on above:Performed By: #### CMP, BNP, URIC, TSH, T7, LIPID #### [facility] [address] [place] [address] Dr. Artem Hernandez [Catalytic activity/Vol]70 U/EBfolyw80-095Yue [facility] CenterComascension borgess allegan hospital on above:Performed By: #### CMP, BNP, URIC, TSH, T7, LIPID #### [facility] [address] [place] [address] Dr. Artem Coulter [Catalytic activity/Vol]19 U/RXipici18-06Khj [facility] Hospitalment on above:Performed By: #### CMP, BNP, URIC, TSH, T7, LIPID #### [facility] [address] [place] [address] Dr. Artem Diallo gap [Moles/Vol]11.7 mmol/LNormalThe [facility] Comment on above:Performed By: #### CMP, BNP, URIC, TSH, T7, LIPID #### [facility] [address] [place] [address] Dr. Artem Aponte [Catalytic activity/Vol]18 U/QWlfyno43-63Wbz [facility] Hospitalment on above:Performed By: #### CMP, BNP, URIC, TSH, T7, LIPID #### [facility] [address] [place] [address] Dr. Artem RojasBilirubin [Mass/Vol]0.5 mg/dLNormal0.2-1.0The [facility] Comment on above:Performed By: #### CMP, BNP, URIC, TSH, T7, LIPID #### [facility] [address] [place] [address] Dr. Artem RojasCalcium [Mass/Vol]9.3 mg/dLNormal8.5-10.1[facility] Comment on above:Performed By: #### CMP, BNP, URIC, TSH, T7, LIPID #### [facility] [address] [address] [address] Artem RojasChloride [Moles/Vol]105 mmol/HFexpwk12-161Qbf [facility] Comment on above:Performed By: #### CMP, BNP, URIC, TSH, T7, LIPID #### [facility] [address] [place] [address] Dr. Artem RojasCO2 [Moles/Vol]29.7 mmol/CJpoayg34.0-32.0The [facility] Comment on above:Performed By: #### CMP, BNP, URIC, TSH, T7, LIPID #### [facility] [address] [place] [address] Dr. Artem RojasCreatinine [Mass/Vol]0.87 mg/dLNormal0.70-1.30The [facility] CenterComment on above:Performed By: #### CMP, BNP, URIC, TSH, T7, LIPID #### [facility] [address] [place] [address] Dr. Artem DaveGFR-AF BANGLADESHI>60Normal>=60The [facility] CenterComment on above:Performed By: #### CMP, BNP, URIC, TSH, T7, LIPID #### [facility] [address] [place] [address] Dr. Artem DaveGFR-NON AF BANGLADESHI>60Normal>=60The [facility] CenterComment on above:Performed By: #### CMP, BNP, URIC, TSH, T7, LIPID #### [facility] [address] [place] [address] Dr. Artem RojasGlobulin (S) [Mass/Vol]3.3 g/dLNormalThe [facility] CenterComment on above:Performed By: #### CMP, BNP, URIC, TSH, T7, LIPID #### [facility] [address] [place] [address] Dr. Artem RojasGlucose [Mass/Vol]118 mg/dLCritically tqtr95-697Emr [facility] CenterComment on above:Performed By: #### CMP, BNP, URIC, TSH, T7, LIPID #### [facility] [address] [place] [address] Dr. Artem RojasPotassium [Moles/Vol]4.4 mmol/LNormal3.5-5.1The [facility] Comment on above:Performed By: #### CMP, BNP, URIC, TSH, T7, LIPID #### [facility] [address] [place] [address] Dr. Artem RojasProtein [Mass/Vol]6.8 g/dLNormal6.4-8.2The [facility] Comment on above:Performed By: #### CMP, BNP, URIC, TSH, T7, LIPID #### [facility] [address] [place] [address] Dr. Artem RojasSodium [Moles/Vol]142 mmol/TPzwcwn917-603Jal [facility] Comment on above:Performed By: #### CMP, BNP, URIC, TSH, T7, LIPID #### [facility] [address] [place] [address] Dr. Artem RojasUrea nitrogen [Mass/Vol]19.0 mg/dLCritically high7.0-18.0The [facility] CenterComment on above:Performed By: #### CMP, BNP, URIC, TSH, T7, LIPID #### [facility] [address] [place] [address] Dr. Artem Church nitrogen/Creatinine [Mass ratio]21.8 mg/mgNormalThe [facility] CenterComment on above:Performed By: #### CMP, BNP, URIC, TSH, T7, LIPID #### [facility] [address] [place] [address] Dr. Artem Adams 83-36-1165IRK2.773 uIU/mLNormal0.358-3.740[facility] HospitalComment on above:Performed By: #### CMP, BNP, URIC, TSH, T7, LIPID #### [facility] [address] [place] [address] Dr. Artem RojasURIC ACID SERUMon 91-13-1871Ytynb [Mass/Vol]5.8 mg/dLNormal 3.5-7.2The [facility] CenterComment on above:Performed By: #### CMP, BNP, URIC, TSH, T7, LIPID #### [facility] [address] [place] [address] Dr. Artem RojasVITAMIN D 25 OHon 18-81-0107PRF D 25-OH65.5 ng/mLNormalNorwalk Memorial HospitalComment on above:Performed By: #### PTT, PT #### [facility] [address] [place] [address] Dr. Artem Bailey D RANGESSEE BELOWPremier Health Upper Valley Medical CenterComment on above: Result Comment: <20 ng/mL Vit D deficient 20 - <30 ng/mL Vit D insufficient 30 - 100 ng/mL Vit D sufficient >100 ng/mL Potential ToxicityPerformed By: #### PTT, PT #### [facility] [address] [place] [address] Dr. Artem RosarioC AUTO DIFFon [id number] #0.1 103/ulNormal0.0-0.1The [facility] CenterComment on above:Performed By: #### PTT, PT #### [facility] [address] [place] [address] Dr. Artem RojasBasophils/100 WBC (Bld)0.5 %Normal0.2-2.0[facility] Comment on above:Performed By: #### PTT, PT #### [facility] [address] [place] [address] Dr. Artem López #0.0 103/ulNormal0.0-0.7The [facility] CenterComment on above: Performed By: #### PTT, PT #### [facility] [address] [place] [address] Dr. Artem Daveosinophils/100 WBC (Bld)0.1 %Critically low0.9-7.0The [facility] CenterComment on above:Performed By: #### PTT, PT #### [facility] [address] [place] [address] Dr. Artem Daverythrocyte distribution width (RBC) [Ratio]12.9 %Cvglee99.0-15.0 The [facility] CenterComment on above:Performed By: #### PTT, PT #### [facility] [address] [place] [address] Dr. Artem RojasHematocrit (Bld) [Volume fraction]39.7 %Critically low42.0-54.0 The [facility] CenterComment on above:Performed By: #### PTT, PT #### [facility] [address] [place] [address] Dr. Artem RojasHemoglobin (Bld) [Mass/Vol]13.1 g/dLCritically low14.0-18.0[facility] HospitalComment on above:Performed By: #### PTT, PT #### [facility] [address] [place] [address] Dr. Artem De Oliveira #0.05 10e3/ulCritically high0.00-0.03The [facility] Comment on above:Performed By: #### PTT, PT #### [facility] [address] [place] [address] Dr. Artem De Oliveira %0.4 %Normal0.0-0.5The [facility] CenterComment on above: Performed By: #### PTT, PT #### [facility] [address] [place] [address] Dr. Artem Peters #0.8 103/ulCritically low1.2-3.8The [facility] Comment on above:Performed By: #### PTT, PT #### [facility] [address] [place] [address] Dr. Artem Millshocytes/100 WBC (Bld)5.7 %Critically low20.5-60.0[facility] HospitalComment on above:Performed By: #### PTT, PT #### [facility] [address] [place] [address] Dr. Artem WolfUAL DIFF REQNONormalThe [facility] CenterComment on above: Performed By: #### PTT, PT #### [facility] [address] [place] [address] Dr. Artem Perrin (RBC) [Entitic mass]31.5 yrVhttes77.9-34.0The [facility] CenterComment on above:Performed By: #### PTT, PT #### [facility] [address] [place] [address] Dr. Artem Vega (RBC) [Mass/Vol]33.0 g/sACnsukq23.9-35.2The [facility] CenterComment on above:Performed By: #### PTT, PT #### [facility] [address] [place] [address] Dr. Artem Vega (RBC) [Entitic vol]95.4 fLCritically high80.0-94.0The [facility] CenterComment on above:Performed By: #### PTT, PT #### [facility] [address] [place] [address] Dr. Artem Bowen #1.0 103/ulCritically high0.3-0.8The [facility] Comment on above:Performed By: #### PTT, PT #### [facility] [address] [place] [address] Dr. Artem Cooleyocytes/100 WBC (Bld)7.4 %Normal1.7-12.0[facility] Comment on above:Performed By: #### PTT, PT #### [facility] [address] [place] [address] Dr. Artem Farrell #11.4 103/ulCritically high1.4-6.5The [facility] Comment on above:Performed By: #### PTT, PT #### [facility] [address] [place] [address] Dr. Artem Dossutrophils/100 WBC (Bld)85.9 %Critically high43.0-75.0The [facility] CenterComment on above:Performed By: #### PTT, PT #### [facility] [address] [place] [address] Dr. Artem Linderlet mean volume (Bld) [Entitic vol]10.8 fLNormal9.5-13.5The [facility] HospitalComment on above:Performed By: #### PTT, PT #### [facility] [address] [address] [address] Artem RojasPLT164 103/ywQruyjx854-630Byl [facility] CenterComment on above: Performed By: #### PTT, PT #### [facility] [address] [place], [place] [address] Dr. Artem RojasRBC4.16 106/ulCritically low4.70-6.10The [facility] CenterComment on above:Performed By: #### PTT, PT #### [facility] [address] [place], [place] [address] Dr. Artem RojasWBC13.2 103/ulCritically high4.0-11.0The [facility] CenterComment on above:Performed By: #### PTT, PT #### [facility] [address] [place] [address] Dr. Artem RojasCT CSPINE WO CONon [id number] [facility] EM[facility]ENC[facility]PART[facility] WO CONEXAMINATION: CT CSPINE WO CON HISTORY: [...] Electronically authenticated by: WILLIAM ARIAS Date: 2022-03-02 17:51NoUniversity Hospitals Conneaut Medical CenterCT HEAD WO CONon [id number] HEAD WO CONCLINICAL HISTORY: UNSPECIFIED INJURY OF [...] Electronically authenticated by: NISSA VIGIL Date: 2022-03-02 17:40[facility] Medical CenterCovid-19 PCR (CVDTBH)on [id number]-CoV-2 (COVID-19) RNA MONICA+probe Ql (Unsp spec)Not detectedNormalNOT DETECTEDThe [facility] Comment on above:Result Comment: When [...] for this test is supported by the [place] of [employer] and Human Service's declaration that [...] be used).Performed By: #### PTT, PT #### [facility] [address] [place] [address] Dr. Artem RojasGASTROCCULTon 08-51-5193HMAPSBXJHQRLhmokkywGynymtnbUMNYGTEZNwe [facility] CenterComment on above:Performed By: #### PTT, PT #### [facility] [address] [place] [address] Dr. Artem RojasPH DMLAZFG8QrubxaQou [facility] CenterComment on above:Performed By: #### PTT, PT #### [facility] [address] [place] [address] Dr. Artem RojasPROF 14(COMP METB)on 06-59-8491Pxiufmc [Mass/Vol]3.6 g/dLNormal 3.4-5.0The [facility] CenterComment on above:Performed By: #### PTT, PT #### [facility] [address] [place] [address] Dr. Artem RojasAlbumin/Globulin [Mass ratio]1.3 {ratio}NormalThe [facility] on above:Performed By: #### PTT, PT #### [facility] [address] [place] [address] Dr. Atrem RojasALP [Catalytic activity/Vol]65 U/JPedldk05-902Upj [facility] Hospitalment on above:Performed By: #### PTT, PT #### [facility] [address] [place] [address] Dr. Artem RhoadesT [Catalytic activity/Vol]12 U/LCritically abb00-81Rkp [facility] CenterComment on above:Performed By: #### PTT, PT #### [facility] [address] [place] [address] Dr. Artem RojasAnion gap [Moles/Vol]12.8 mmol/LNormalNorwalk Memorial Hospital Comment on above:Performed By: #### PTT, PT #### [facility] [address] [place] [address] Dr. Artem RojasAST [Catalytic activity/Vol]15 U/DXzswln57-54Zgj [facility] CenterComment on above:Performed By: #### PTT, PT #### [facility] [address] [place] [address] Dr. Artem RojasBilirubin [Mass/Vol]1.1 mg/dLCritically high0.2-1.0The [facility] CenterComment on above:Performed By: #### PTT, PT #### [facility] [address] [place] [address] Dr. Artem RojasCalcium [Mass/Vol]9.0 mg/dLNormal8.5-10.1[facility] Comment on above:Performed By: #### PTT, PT #### [facility] [address] [place] [address] Dr. Artem RojasChloride [Moles/Vol]104 mmol/QNwejjs79-130PweNorwalk Memorial Hospital Comment on above:Performed By: #### PTT, PT #### [facility] [address] [place] [address] Dr. Artem RojasCO2 [Moles/Vol]25.8 mmol/CCskmws97.0-32.0[facility] Comment on above:Performed By: #### PTT, PT #### [facility] [address] [place] [address] Dr. Artem RojasCreatinine [Mass/Vol]1.06 mg/dLNormal0.70-1.30The [facility] CenterComment on above:Performed By: #### PTT, PT #### [facility] [address] [address] [address] Artem DaveGFR-AF BANGLADESHI>60Normal>=60The [facility] CenterComment on above:Performed By: #### PTT, PT #### [facility] [address] [address] [address] Artem DaveGFR-NON AF BANGLADESHI>60Normal>=60The [facility] CenterComment on above:Performed By: #### PTT, PT #### [facility] [address] [address] [address] Artem RojasGlobulin (S) [Mass/Vol]2.8 g/dLNormalThe Louis [facility] CenterComment on above:Performed By: #### PTT, PT #### [facility] [address] [place] [address] Dr. Artem RojasGlucose [Mass/Vol]104 mg/rYFbvcnz62-486Xcf [facility] Comment on above:Performed By: #### PTT, PT #### [facility] [address] [place] [address] Dr. Artem RojasPotassium [Moles/Vol]4.6 mmol/LNormal3.5-5.1The [facility] Comment on above:Performed By: #### PTT, PT #### [facility] [address] [place] [address] Dr. Artem RojasProtein [Mass/Vol]6.4 g/dLNormal6.4-8.2The [facility] Comment on above:Performed By: #### PTT, PT #### [facility] [address] [place] [address] Dr. Artem RojasSodium [Moles/Vol]138 mmol/XBynzzd954-628Yyv [facility] Comment on above:Performed By: #### PTT, PT #### [facility] [address] [place] [address] Dr. Artem RojasUrea nitrogen [Mass/Vol]13.0 mg/dLNormal7.0-18.0The [facility] CenterComment on above:Performed By: #### PTT, PT #### [facility] [address] [address] [address] Artem Church nitrogen/Creatinine [Mass ratio]12.3 mg/mgNoUniversity Hospitals Conneaut Medical CenterComment on above:Performed By: #### PTT, PT #### [facility] [address] [place] [address] Dr. Artem ByrdIMErivera 79-24-6835DXM Coag (PPP) [Relative time]1.23 {INR} NormalThe [facility] CenterComment on above:Performed By: #### PTT, PT #### [facility] [address] [place] [address] Dr. Artem Brito GUIDELINESSEE McCullough-Hyde Memorial HospitalComment on above:Result Comment: DESIRED INR: 2.0 - 3.0 CONDITIONS NOT LISTED BELOW 2.5 - 3.5 FOR PROSTHETIC HEART VALVE REPLACEMENT 2.5 - 3.5 RECURRENT THROMBOSIS Performed By: #### PTT, PT #### [facility] [address] [place] [address] Dr. Artem RojasPT Coag (PPP) [Time]13.1 sCritically high9.0-11.6The [facility] CenterComment on above:Performed By: #### PTT, PT #### [facility] [address] [place] [address] Dr. Artem Valdivia 93-33-9400yYNZ Coag (Bld) [Time]28.5 cYiiard51.3-36.2Nor[facility] Memorial HospitalComment on above:Performed By: #### PTT, PT #### [facility] [address] [place] [address] Dr. Artem RojasXR KNEE RT 1_2 Von 49-73-3621II KNEE RT 1_2 VXR KNEE RT 1_2 [...] Electronically authenticated by: MATTHEW CHADWICK Date: 2022-03-02 20:49NoUniversity Hospitals Conneaut Medical CenterOVA AND PARASITE EXAMINATIONon 50-23-0187Zrc + Parasite Exam Final reportTriHealth Bethesda North Hospital on above:Result Comment: These results were obtained using wet preparation(s) and trichrome stained smear. This test does not include testing for Cryptosporidium parvum, Cyclospora, or Microsporidia.Performed By: #### PTT, PT #### [facility] [address] [place] [address] Dr. Artem Montero 1CommentNoUniversity Hospitals Conneaut Medical CenterComascension borgess allegan hospital on above:Result Comment: No ova, cysts, or parasites seen. . One negative specimen does not rule out the possibility of a parasitic infection.Performed By: #### PTT, PT #### [facility] [address] [place] [address] Dr. Artem Bhatt PANEL (PCR)on 72-69-9238Jxqrboqcae F 40/41Not detectedNormal NOT DETECTEDThe [facility] CenterComment on above:Performed By: #### PTT, PT #### [facility] [address] [place] [address] Dr. Artem RojasAstrovirusNot detectedNormalNOT DETECTEDThe [facility] Comment on above:Performed By: #### PTT, PT #### [facility] [address] [place] [address] Dr. Artem Patel. Diff toxin A/BNot detectedNormalNOT DETECTEDThe [facility] CenterComment on above:Performed By: #### PTT, PT #### [facility] [address] [place] [address] Dr. Artem BernsteinpylobacterNot detectedNormalNOT DETECTEDThe [facility] Comment on above:Performed By: #### PTT, PT #### [facility] [address] [place] [address] Dr. Artem LopezyptosporidiumNot detectedNormalNOT DETECTEDThe [facility] CenterComment on above:Performed By: #### PTT, PT #### [facility] [address] [address] [address] Artem Rose. CayetanensisNot detectedNormalNOT DETECTEDThe [facility] CenterComment on above:Performed By: #### PTT, PT #### [facility] [address] [place] [address] Dr. Artem Cabrera Coli X292Vbx ApplicableNormalNot ApplicableThe [facility] CenterComment on above:Performed By: #### PTT, PT #### [facility] [address] [address] [address] Artem Cabrera histolyticaNot detectedNormalNOT DETECTEDThe [facility] Comment on above:Performed By: #### PTT, PT #### [facility] [address] [place] [address] Dr. Artem DaveAECNot detectedNormalNOT DETECTEDThe [facility] CenterComment on above:Performed By: #### PTT, PT #### [facility] [address] [place] [address] Dr. Artem DaveIECNot detectedNormalNOT DETECTEDThe [facility] CenterComascension borg[facility] allegan hospital on above:Performed By: #### PTT, PT #### [facility] [address] [place] [address] Dr. Artem DavePECNot detectedNormalNOT DETECTEDThe [facility] CenterComascension borg[facility] hospital on above:Performed By: #### PTT, PT #### [facility] [address] [place] [address] Dr. Artem DaveTECNot detectedNormalNOT DETECTEDThe [facility] CenterComment on above:Performed By: #### PTT, PT #### [facility] [address] [place] [address] Dr. Artem Gandhi. LambliaNot detectedNormalNOT DETECTEDThe [facility] Comment on above:Performed By: #### PTT, PT #### [facility] [address] [place] [address] Dr. Artem Lea CONTROLSPASSThe University of Toledo Medical CenterComment on above:Performed By: #### PTT, PT #### [facility] [address] [address] [address] Artem WEBER HEADERGI [facility] Comment on above:Performed By: #### PTT, PT #### [facility] [address] [address] [address] Artem Carmona ECOLIGI PANEL DIARRHEAGENIC E.COLI / SHIGELLAPremier Health Upper Valley Medical CenterComment on above:Performed By: #### PTT, PT #### [facility] [address] [address] [address] Artem Carmona INFOSEBerger HospitalComment on above: Result Comment: EAEC- Enteroaggregative E. Coli EPEC- Enteropathogenic E. Coli ETEC- Enterotoxigenic E. Coli lt/st STEC- Shigella-like toxin-producing E. Coli stx1/stx2 EIEC- Shigella/Enteroinvasive E. ColiPerformed By: #### PTT, PT #### [facility] [address] [address] [address] Artem Carmona PARASITESGI PANEL PARASITESPremier Health Upper Valley Medical Center Comment on above:Performed By: #### PTT, PT #### [facility] [address] [address] [address] Artem Carmona VIRUSGI PANEL VIRUSESPremier Health Upper Valley Medical CenterComment on above:Performed By: #### PTT, PT #### [facility] [address] [address] [address] Artem Mccurdyvirus GI/GIINot detectedNormalNOT DETECTEDThe [facility] CenterComascension borg[facility] allegan hospital on above:Performed By: #### PTT, PT #### [facility] [address] [address] [address] Artem Middleton ShigelloidesNot detectedNormalNOT DETECTEDThe [facility] CenterComment on above:Performed By: #### PTT, PT #### [facility] [address] [address] [address] Artem RojasRotavirus ANot detectedNormalNOT DETECTEDThe [facility] Comment on above:Performed By: #### PTT, PT #### [facility] [address] [address] [address] Artem RojasSalmonellaNot detectedNormalNOT DETECTEDThe [facility] Comment on above:Performed By: #### PTT, PT #### [facility] [address] [address] [address] Artem RojasSapovirusNot detectedNormalNOT DETECTEDThe [facility] Comment on above:Performed By: #### PTT, PT #### [facility] [address] [address] [address] Artem RojasSTECNot detectedNormalNOT DETECTEDThe [facility] CenterComment on above:Performed By: #### PTT, PT #### [facility] [address] [address] [address] Artem EllisonbrioNot detectedNormalNOT DETECTEDThe [facility] CenterComment on above:Performed By: #### PTT, PT #### [facility] [address] [address] [address] Artem Espinalio CholeraNot detectedNormalNOT DETECTEDNorwalk Memorial Hospital Comment on above:Performed By: #### PTT, PT #### [facility] [address] [place] [address] Dr. Artem [place]. EnterocoliticaNot detectedNormalNOT DETECTEDThe [facility] CenterComment on above:Performed By: #### PTT, PT #### [facility] [address] [address] [address] Artem Bardalessultation Noteon 40-86-9443Pbwreakxhpmp Note [id number]#1.00CD:[address] [place], [place] [address]RAD - MISCon 02-84-1685EXT - MISC [id number]#1.00CD:[address] [place], [place] [address]Glucose Poct Glucometerson 81-98-9190Nsitxep [Mass/Vol]108 mg/dLNormal [facility] Community HospitalComment on above:Result Comment: Random Glucose Reference Range is dependent on time and content of last meal. Glucose of more than 200 mg/dL in a nonstressed, ambulatory subject supports the diagnosis of Diabetes Mellitus. PERFORMED BY: [place] [address] PATHOLOGIST CHAR FILTER TANK TENDER SARY APARICIO M.D.Performed By: #### GLULS #### Point of Care testing ,[place] 01-10-2021 Specimen: [id number] Received: 01/10/21 Status: WILFREDO Mckeon Num: [id number] Spec Type: Surgical Subm Dr: Shane Snell MD Tissues: A Colon - Polyp (CECUM) B Colon - Polyp (SIGMOID) Procedures: HE Stain/4, Gross/Micro L4/2 Patient Age/Sex Location Account Attending Physician Desean Landry JR 80/M [id number] Shane Snell MD SPEC NUM: [id number] RECD: 01/10/21 STATUS: WILFREDO MCKEON NUM: [id number] MICAH: 01/10/21 DR: Shane Snell MD ENTERED: 01/10/[address] [facility] [address]: SATHISH TYPE: Surgical DEPT: [...] findings support the above pathologic diagnosis. Specimen: [id number] Received: 01/10/21 Status: WILFREDO Mckeon Num: [id number] Spec Type: Surgical Subm Dr: Shane Snell MD Tissues: A Colon - Polyp (CECUM) B Colon - Polyp (SIGMOID) Procedures: HE Stain/4, Gross/Micro L4/2 Patient: Desean Landry JR [id number] (Continued) Specimen: [id number] Received: 01/10/21 (Continued) Signed (signature on file) Randi Ji MD 01/11/21 1809 Specimen: [id number] Received: 01/10/21 Status: WILFREDO Mckeon Num: [id number] Spec Type: Surgical Subm Dr: Shane Snell MD Tissues: A Colon - Polyp (CECUM) B Colon - Polyp (SIGMOID) Procedures: HE Stain/4, Gross/Micro L4/2 Patient: Desean Landry JR [id number] (Continued) Specimen: [id number] Received: 01/10/21 (Continued) CPT Codes 45307?2 Specimen: [id number] Received: 01/10/21 Status: WILFREDO Mckeon Num: [id number] Spec Type: Surgical Subm Dr: Shane Snell MD Tissues: A Colon - Polyp (CECUM) B Colon - Polyp (SIGMOID) Procedures: HE Stain/4, Gross/Micro L4/2 Patient: Desean Landry [id number] (Continued) Signed (signature on file) Randi Ji MD 01/11/21 1809 [facility] CenterCNCOon [id number] TextOctrobley rex va medical center 2017[address] [place], [place] [address]DGKY: Desean LandryJOEL NO.: [id number] OF SERVICE: 04/06/2018Dept. of Pulmonary and Critical Care MedicineDear Mr. Landry,Attached please find a copy of your CAT scan chest report from March.Please contact me if I can contribute further in your health care management.Best regards.Yours sincerely,Cesar Rowley M.D., F.C.C.P.HC:EnclosureNoFirelands Regional Medical Center South CampusCT CHEST WO IVCONon [id number] CHEST WO IVCON* * *Final Report* * *DATE OF EXAM: Apr 06 2018 12:50PM [facility] 0541 - CT CHEST WO IVCON / [...] any questions regarding this interpretation, please call [phone].If you are unable to reach us at the number above,please feel free to contact [facility] eRadiology at [phone]_IDCSIACNNormalBellevue HospitalPROGRESSon 54-92-2736Zqlzfou mass concHNO ID: [id number]: Venita Lr: (none)Author Type: (none)Type: Progress NotesFiled: 04/06/2018 12:57 PMNote Text: Radiology Service Progress NotePATIENT NAME: Desean LandryMRN: [id number] OF SERVICE: April 06, 2018TIME: 12:28 PMPATIENT IDENTITY VERIFICATION COMPLETED USING TWO (2) METHODS: Patientconfirmed name verbally and ID band matches..PATIENT GENDER DATA: MalePATIENT RELEVANT IMPLANT DATA REVIEWED: Not ApplicableRADIOLOGY DEPARTMENT: CT; Exam(s) Completed: ChestPERIPHERAL IV DATA: Not applicableSIGNED BY: Venita Lee 2017 12:28 PMNormalLima Memorial HospitalOVon 40-33-6928IIUAPyeysx Visit (PULMMN) --------FRANTZDESEAN ([id number]) 1940 MDate Time Provider Department09/10/17 9:55 AM CESAR ROWLEY During your visit today, we recorded the following information about you: Temperature Pulse Respiration Blood pressure 97.7 degrees 75/minute 18/minute 125/68 Weight Height 90.3 kg 1.753 Ritika Rowley MD 09/10/2017 12:26 PM SignedPULMONARY CLINICPATIENT NAME: Desean LandryMRN: [id number] CARE PHYSICIAN: Diogenes Casiano, MDCommunication will be [...] Ht 5' 9ANDquot; (1.75m) Wt 199 lb(90.3kg) XtP295% BMI 29.37 kg/(m2).GENERAL: No distressSKIN: . No rashes or lesions.OROPHARYNX: Oropharynx normal. No erythema. No thrush.LYMPH: No neck adenopathyLUNGS: Lungs clear to auscultation bilateral. No wheezing. No ronchi. No ralesCARDIAC: normal S1 and U7VUFYDWI: Abdomen soft.EXTREMETIES: No deformities. No LE edema. [...] [J98.11] Pleural calcification [J94.8]Order(s):CT CHEST WO IVCON [[id number]] Order #: [id number] FUTUREProblem List As Of Date: 09/10/2017(None)Disposition: Return in about 6 months (around 03/13/2018).Follow-up and Disposition History RecordedEncounter Number: [id number] Status:Closed by CESAR ROWLEY MD on 09/10/17[facility] CenterCT CHEST WO IVCONon [id number] CHEST WO IVCON* * *Final Report* * *DATE OF EXAM: Sep 10 2017 9:05AM [facility] 05[facility] - CT CHEST WO IVCON / [...] 6 mm. Three-month imaging follow-up suggested for reevaluation.Chandelier Maker: AMILCAR Transcribe Date/Time: Sep 10 2017 9:58ADictated by : CHRISTY MULTANI MDThis examination was interpreted and the report reviewed and electronically signed by: CHRISTY MULTANI MD on Sep 10 2017 2:48PM [id number] Clinic ClevelandPROGRESSon 01-05-8541Bnjtpgj mass concHNO ID: [id number]: Cesar Claudiae: (none)Author Type: PhysicianType: Progress NotesFiled: 09/10/2017 12:26 PMNote Text:PULMONARY CLINICPATIENT NAME: Desean LandryMRN: [id number] CARE PHYSICIAN: Diogenes Casiano [facility] BOISE CITYommunication will be sent via [place] mail [...] wheezing. No ronchi. NoralesCARDIAC: normal S1 and L3NZVXHXY: Abdomen soft.EXTREMETIES: No deformities. No LE edema. [...] Critical Care MedicineDATE: September 10, 2017TIME: 9:30 [facility] HospitalProtein mass concHNO ID: [id number]: Srinath Purcell (Ct) CTService: RadiologyAuthor Type: Clinical TechnicianType: Progress NotesFiled: 09/10/2017 9:03 AMNote Text: Radiology Service Progress NotePATIENT NAME: Desean LandryMRN: [id number] OF SERVICE: September 10, 2017TIME: 9:03 AMPATIENT IDENTITY VERIFICATION COMPLETED USING TWO (2) METHODS: Patientconfirmed name verbally and ID band matches..PATIENT GENDER DA TA: MalePATIENT RELEVANT IMPLANT DATA REVIEWED: YesRADIOLOGY DEPARTMENT: CT; Exam(s) Completed: ChestPERIPHERAL IV DATA: Not applicableSIGNED BY: MANINDER LinFort Hamilton Hospital 2017 9:03 [facility] HospitalHISTORY PHYSICALon [id number] PHYSICALHNO ID: [id number]: Cesar RowleySertimae: (none)Author Type: PhysicianType: HANDPFiled: 07/23/2017 5:35 PMNote Text:PULMONARY CONSULTPATIENT NAME: Desean LadnryMRN: [id number] FOR CONSULT: Pleural effusionREQUESTING PHYSICIAN: REJI HealyRILAKELAND COMMUNITY H[facility]ITAL CARE PHYSICIAN: Diogenes Casiano, [facility] BO[facility] CITYommunication will be sent via US mail or shared electronic medicalrecordsHISTORY OF PRESENT ILLNESS: Mr. 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 Unable to make his own medical decision.He lives by himself but currently admitted at a SNF. He has a legalguardian Blanca Sofia phone # [phone].In June he was found on the floor [...] evaluation anddecided to [facility]. [...] Care MedicineDATE: July 23, 2017TIME: 12:12 PMNormal Bellevue HospitalPROGRESSon 51-79-8986Sbxfvtd mass concHNO ID: [id number]: Colleen Ceballos RtService: (none)Author Type: (none)Type: Progress NotesFiled: 07/23/2017 11:16 AMNote Text: Radiology Service Progress NotePATIENT NAME: Desean LandryMRN:[id number] OF SERVICE: July 23, 2017TIME: 11:16 AMPATIENT IDENTITY VERIFICATION COMPLETED USING TWO (2) METHODS: Patientconfirmed name verbally and Date of .PATIENT GENDER DATA: MalePATIENT RELEVANT IMPLANT DATA REVIEWED: Not ApplicableRADIOLOGY DEPARTMENT: General X-ray: Exam(s) Completed: Chest X-RayPERIPHERAL IV DATA: Not applicableSIGNED BY: Colleen Ceballos RtFebruary 2017 11:16 AMNormal Bellevue HospitalXR CHEST 2V FRONTAL/LATon 16-67-1255PM CHEST 2V FRONTAL/LAT* * *Final Report* * [...] ARMENTA MD on Jul 23 2017 3:24PM [id number] Clinic ClevelandHOSPon [id number]:Desean LandryMRN: Height:No patient height recorded for this [...] Signed Radiology Service ProgressNotePATIENT NAME: Desean LandryMRN: [id number] OF SERVICE: July 23, 2017TIME: 11:16 AMPATIENT IDENTITY VERIFICATION COMPLETED USING TWO (2) METHODS: Patientconfirmed name verbally and Date of .PATIENT GENDER DATA: MalePATIENT RELEVANT IMPLANT DATA REVIEWED: Not ApplicableRADIOLOGY DEPARTMENT: General X-ray: Exam(s) Completed: Chest X-RayPERIPHERAL IV DATA: Not applicableSIGNED BY: Colleen Ceballos RtFebruary 2017 11:16 AMProgress Notes (HOSP OPTIME PULM LAB H23):Latoya Mohamud, RN, RN 07/22/2017 10:35 AM Signed07/22/2017: Navigator contacted [facility] ([phone] toobtain recent labs. Order Packer Or Packager will fax labs and medication list. Craig also have a copies of this sent with him to his appointments.Normal Bellevue HospitalCNPNon 62-31-8760CPWPBoxckdxld (PULMMN) --------DESEAN LANDRY ([id number]) 1940 MDate Time Provider Department07/16/17 CESAR ROWLEY During your visit today, we recorded the following information about you:Kristie Vallejo 07/16/2017 2:35 PM Signedcxr report to SUPERVISOR LAMP SHADES.Italo Mora CNP 07/17/2017 12:47 PM SignedCXR 07/13/2017StableAllergies As of Date: 07/16/2017(No Known Allergies)Date Reviewed: 07/14/2017Reviewed by: Kim Walker (Fel) - Yesenia AssessedReason for Visit: Received Outside Medical Records [[id number]]Problem List As Of Date: 07/16/2017(None) Status:Closed by KRISTIE ANDRADE on 07/16/17Normal [facility] METABOLIC PANELon 92-23-0898Nhjuoey6.5 mg/dLLow 8.6-10.3The [facility] Washington TownshipComment on above:Order Comment: No: Do not add to previous drawPerformed By: #### 01852, 30401, 82284, 08082, 81532 ####[facility] [place] [address], IWFBlhqwzma953 mmol/BXaglxa24-054Abp [facility] Comment on above:Order Comment: No: Do not add to previous drawPerformed By: #### 19195, 87052, 39640, 59723, 90294 ####[facility] [place] [address], YQLJP044 mmol/QSxzhwp15-13Foh [facility] TownshipComment on above:Order Comment: No: Do not add to previous drawPerformed By: #### 13901, 90347, 80136, 31639, 88408 ####[facility] [place] [address], [place] Creatinine0.94 mg/dLNormal0.70-1.30The [facility] Comment on above:Order Comment: No: Do not add to previous drawPerformed By: #### 92211, 41334, 27750, 54024, 07970 ####[facility] [place] [address], USAeGFR (black)mL/min/{1.73_m2}Normal >60The [facility] TownshipComment on above:Order Comment: No: Do not add to previous drawResult Comment: Calculation may not be valid for patients over 70 yearsPerformed By: #### 95762, 85868, 28617, 97663, 02861 ####[facility] [place] [address], [place] eGFR (non-black)mL/min/{1.73_m2}Normal>60The [facility] Comment on above:Order Comment: No: Do not add to previous drawResult Comment: Calculation may not be valid for patients over 70 yearsPerformed By: #### 80663, 48540, 62216, 16701, 52240 ####[facility] [place] [address], USAGlucose mass conc98 mg/oILhpeqd36-024Ifj [facility] TownshipComment on above:Order Comment: No: Do not add to previous drawPerformed By: #### 16069, 18402, 40445, 89158, 52991 ####[facility] [place] [address], [place] Potassium molar conc4.3 mmol/LNormal3.5-5.1The [facility] TownshipComment on above:Order Comment: No: Do not add to previous drawPerformed By: #### 06453, 37542, 90481, 83806, 98409 ####[facility] [place] [address], QEEQescqb530 mmol/GZllnbn218-925Gqy [facility] TownshipComment on above:Order Comment: No: Do not add to previous drawPerformed By: #### 32004, 08379, 12923, 80690, 09216 ####[facility] [place] [address], [facility] Urea rktifzki85 mg/dLNormal7-25The [facility] TownshipComment on above:Order Comment: No: Do not add to previous drawPerformed By: #### 04211, 24976, 80179, 04240, 06759 ####[facility] [place] [address], [facility] MEDICAL CENTERCBC W/DIFFon 21-07-4440Gkwbfwaxv Auto #/vol (Bld)0.5 % Normal0.0-2.0The [facility] TownshipComment on above:Performed By: #### 13804, 43357, 82192, 55690, 38597 ####[facility] [place] [address], [facility] MEDICAL CENTEREosinophils/100 leukocytes3.6 % Normal0.0-5.0The [facility] TownshipComment on above:Performed By: #### 39265, 49631, 41792, 31296, 98243 ####[facility] [place] [address], [facility] MEDICAL CENTERErythrocyte distribution width Auto Ratio (RBC)14.2 %Wayzbn70.5-16.9The [facility] Comment on above:Performed By: #### 60689, 37722, 13765, 83217, 80856 ####[facility] [facility] [place] [address], [facility] Erythrocytes (RBC)4.19 mill/aq6Rcj0.30-5.90The [facility] TownshipComment on above:Performed By: #### 16470, 54179, 94252, 36664, 96850 ####[facility] [place] [address], [facility] Hematocrit (HCT)39.9 %Vhgagx83.0-55.0The [facility] Comment on above:Performed By: #### 94305, 62822, 74193, 15639, 02804 ####[facility] Hemoglobin mass conc (Bld)13.6 g/dLLow13.9-16.3The [facility] TownshipComment on above:Performed By: #### 98409, 78307, 69752, 77927, 45977 ####[facility] [place] [address], [facility] Lymphocytes/100 prgvbsgpyd04.7 %Low20.0-40.0The [facility] TownshipComment on above:Performed By: #### 97549, 35882, 07978, 62385, 16606 ####[facility] [facility] [place] [address], [facility] MCH32.4 zqVynn45.0-32.0The [facility] TownshipComment on above: Performed By: #### 03283, 32372, 32147, 67740, 97127 ####[facility] [place] [address], [facility] CENTERMCHC mass conc (RBC)34.0 g/pAPernra78.0-36.0The [facility] TownshipComment on above: Performed By: #### 97877, 83314, 96407, 10515, 09341 ####[facility] [place] [address], SVBGCJ74.3 cNVidmka11.0-100.0 The [facility] TownshipComment on above:Performed By: #### 05099, 59743, 08819, 95120, 96037 ####[facility] [place] [address], [facility] CENTERMETHODNormal RBC MorphologyNormalThe [facility] TownshipComment on above:Performed By: #### 50589, 50915, 62837, 65109, 86039 ####[facility] [place] [address], USAMONOS9.9 %High2-8The [facility] TownshipComment on above:Performed By: #### 16380, 26734, 80924, 14883, 58925 ####[facility] [place] [address], [place] Neutrophils/100 biysevoklu41.3 %Gekg75-39Ynn [facility] Comment on above:Performed By: #### 57145, 75135, 93190, 96620, 17597 ####[facility] [place] [address], [place] PLAT KDF230 Thou/qh9Soijjz046-923Onl [facility] TownshipComment on above:Performed By: #### 84582, 18209, 24492, 44938, 71925 ####[facility] [place] [address], USAWBC (Leukocytes)8.7 Thou/os7Nvytnl9.0-10.0The [facility] TownshipComment on above: Performed By: #### 17772, 00391, 45548, 05720, 55691 ####[facility] [place] [address], USADischarge Summaryon 32-92-4592Vhwqtzode SummaryMR#: [id number] [facility] Desean Landry Admitted: 06/13/2017Discharged: 06/20/2017 Date of : 1940 Physician: Diogenes Ren M.D. DISCHARGE SUMMARYPRIMARY DIAGNOSIS: Rhabdomyolysis secondary to prolonged immobilization.SECONDARY DIAGNOSES:1. History of atrial fibrillation.2. Right sided Posterior Calcified pleural plaques.3. Right-sided loculated pleural effusion.CONSULTS: CT Surgery, Pulmonary.PROCEDURES: None.SUMMARY OF HOSPITAL COURSE: is a 76-year-old male, who [facility] with complaints of being found [...] EMS was contacted and brought the patient [facility]. Initial workup was notable for severe rhabdomyolysis,and the patient was transferred to [facility]. He has a past medical historysignificant [...] not have a biopsy performed whilehospitalized at [facility].His CK and myoglobin continue to trend downward, and he was deemed stableat the time of discharge.He will need to follow up with Dr. Rowley at [facility] for continuedmanagement of his pleural effusions concerning for empyema and hisright-sided pleural calcifications. He was to be discharged on June, however his transportation was delayed. He was ultimately dischargedon 06/20/16 [facility].Of note, his Eliquis was stopped for possible thoracentesis in the nextweek. He was instructed that if he does not have a thoracentesis the nextweek, he is to resume his Eliquis for his atrial fibrillation.The patient's condition at discharge stable and improved since admission.DISPOSITION: ECF. DISCHARGE INSTRUCTIONS: You are being discharged to ECF. Please continueto follow up with Dr. Rowley at [facility] for continued management ofthe pleural effusions [...] 06/19/2017/05:47 P/Jarad Ayon MDDate Trans: 06/20/2017 04:29 P/mmoDN_JN:[id number]: Diogenes Casiano M.D. [address] [facility] [id number] Hospitals Lake West Medical CenterMAGNESIUM BLOODon 77-06-2096Lwcbepvyc8.0 mg/dLNormal1.9-2.7The [facility] TownshipComment on above:Order Comment: No: Do not add to previous drawPerformed By: #### 42778, 73089, 10075, 85565, 36586 ####[facility] [place] [address], [facility] CENTERPHOSPHORUS BLOODon 09-30-4823Tvkiepveq8.5 mg/dLNormal2.5-5.0The [facility] TownshipComment on above:Order Comment: No: Do not add to previous draw Performed By: #### 87933, 32400, 76581, 37355, 01213 ####[facility] [place] [address], USABASIC METABOLIC PANELon 53-76-4712Szozmjo8.5 mg/dLLow8.6-10.3The [facility] Comment on above:Order Comment: No: Do not add to previous drawPerformed By: #### 66081, 93949, 10369, 73339, 30829 ####[facility] [place] [address], SQVBxmcsnnv077 mmol/BGytbhg00-637Bzk [facility] TownshipComment on above:Order Comment: No: Do not add to previous drawPerformed By: #### 72367, 58861, 72842, 33549, 47042 ####[facility] [place] [address], [place] CO226 mmol/KViixwu87-33Edj [facility] TownshipComment on above: Order Comment: No: Do not add to previous drawPerformed By: #### 88439, 95750, 58411, 61173, 11617 ####[facility] [place] [address], USACreatinine0.95 mg/dLNormal0.70-1.30The [facility] TownshipComment on above:Order Comment: No: Do not add to previous drawPerformed By: #### 94588, 53212, 87427, 52111, 53867 ####[facility] [place] [address], USAeGFR (black) mL/min/{1.73_m2}Normal>60The [facility] TownshipComment on above:Order Comment: No: Do not add to previous drawResult Comment: Calculation may not be valid for patients over 70 yearsPerformed By: #### 59705, 24913, 12318, 55481, 90244 ####[facility] [place] [address], USAeGFR (non-black)mL/min/{1.73_m2}Normal>60The [facility] TownshipComment on above:Order Comment: No: Do not add to previous drawResult Comment: Calculation may not be valid for patients over 70 yearsPerformed By: #### 27083, 44716, 36263, 46894, 06782 ####[facility] [place] [address], USAGlucose mass conc 102 mg/iCMsuh14-963Xij [facility] TownshipComment on above:Order Comment: No: Do not add to previous drawPerformed By: #### 44356, 99848, 32326, 40280, 37376 ####[facility] [place] [address], USAPotassium molar conc3.7 mmol/LNormal3.5-5.1The [facility] TownshipComment on above:Order Comment: No: Do not add to previous draw Performed By: #### 59759, 60514, 09458, 88577, 12619 ####[facility] [place] [address], SHFTxahkf906 mmol/LNormal 136-145The [facility] TownshipComment on above:Order Comment: No: Do not add to previous drawPerformed By: #### 22013, 34005, 14828, 96338, 66928 ####[facility] [place] [address], USAUrea qswdvbnu48 mg/dLNormal7-25The [facility] Comment on above:Order Comment: No: Do not add to previous drawPerformed By: #### 66367, 53213, 33871, 10447, 33800 ####[facility] [place] [address], USACBC W/DIFFon 77-59-8143Igdvbbcac Auto #/vol (Bld)0.5 %Normal0.0-2.0The [facility] TownshipComment on above:Order Comment: No: Do not add to previous drawPerformed By: #### 72129, 45339, 99885, 47913, 60050 ####[facility] [facility] [place] [address], [facility] CENTEREosinophils/100 leukocytes1.0 %Normal0.0-5.0 The [facility] TownshipComment on above:Order Comment: No: Do not add to previous drawPerformed By: #### 01982, 68982, 90576, 31215, 74045 ####[facility] [facility] [place] [place] [address], [place] Erythrocyte distribution width Auto Ratio (RBC)13.7 %Sevuye27.5-16.9The [facility] TownshipComment on above:Order Comment: No: Do not add to previous drawPerformed By: #### 77242, 59663, 68339, 09684, 90080 ####[facility] [facility] [place] [address], [facility] Erythrocytes (RBC)4.33 mill/rv5Xqppyr9.30-5.90The [facility] TownshipComment on above:Order Comment: No: Do not add to previous drawPerformed By: #### 70706, 03225, 56116, 09242, 83458 ####[facility] [facility] [place] [address], [facility] CENTERHematocrit (HCT)41.5 %Normal 39.0-55.0The [facility] TownshipComment on above:Order Comment: No: Do not add to previous drawPerformed By: #### 21257, 68658, 99197, 88891, 99443 ####[facility] [facility] [place] [address], [facility] CENTERHemoglobin mass conc (Bld)14.1 g/kDFzadps04.9-16.3The [facility] TownshipComment on above:Order Comment: No: Do not add to previous drawPerformed By: #### 08892, 70354, 82255, 49211, 36928 ####[facility] [facility] [place] [address], [facility] CENTERLymphocytes/100 cnrnvqkyjm93.5 %Low20.0-40.0The [facility] TownshipComment on above:Order Comment: No: Do not add to previous drawPerformed By: #### 13852, 36622, 30901, 90366, 63682 ####[facility] [facility] [place] [place] [address], EZPEUE19.7 lkPbie16.0-32.0The [facility] TownshipComment on above:Order Comment: No: Do not add to previous draw Performed By: #### 12638, 02271, 00192, 05290, 35686 ####[facility] [facility] [place] [address], [facility] OKLAHOMA CITYHC mass conc (RBC)34.1 g/yDBifyzo94.0-36.0The [facility] TownshipComment on above:Order Comment: No: Do not add to previous drawPerformed By: #### 40527, 69759, 74896, 88149, 64137 ####[facility] [facility] [place] [place] [address], QUVQNP75.9 lTSfqvmz22.0-100.0The [facility] Comment on above:Order Comment: No: Do not add to previous drawPerformed By: #### 15565, 71614, 49196, 75380, 11414 ####[facility] [facility] [place] [address], USAMETHODNormal RBC MorphologyNormal The [facility] TownshipComment on above:Order Comment: No: Do not add to previous drawPerformed By: #### 32554, 63884, 84850, 01641, 38888 ####[facility] [facility] [place] [address], [place] MONOS11.9 %High2-8The [facility] TownshipComment on above:Order Comment: No: Do not add to previous drawPerformed By: #### 51975, 19840, 99681, 21529, 81517 ####[facility] [place] [address], USANeutrophils/100 zhohbesljt98.1 %Fybj30-98Vnk [facility] TownshipComment on above:Order Comment: No: Do not add to previous draw Performed By: #### 50221, 98555, 50020, 69738, 96559 ####[facility] [facility] [place] [address], USAPLAT UUX709 Thou/jr5Phgmvx 100-400The [facility] TownshipComment on above:Order Comment: No: Do not add to previous drawPerformed By: #### 72207, 72243, 94727, 00499, 06529 ####[facility] [facility] [place] [address], USAWBC (Leukocytes)10.7 Thou/yd9Xvox6.0-10.0The [facility] TownshipComment on above:Order Comment: No: Do not add to previous draw Performed By: #### 01920, 27676, 40685, 39635, 80052 ####[facility] [facility] [place] [address], USACPKon 07-62-5355Zmoijflo kinase (CK)252 U/ZHdww99-266Glv [facility] TownshipComment on above:Performed By: #### 86262, 09401, 44818, 47605, 66191 ####[facility] [facility] [place] [address], USAMAGNESIUM BLOODon 56-18-3295Cfnkavwuq9.0 mg/dLNormal1.9-2.7The [facility] Comment on above:Order Comment: No: Do not add to previous drawPerformed By: #### 82470, 00477, 15190, 71281, 97309 ####[facility] [address] [place] [address], USAMYOGLOBINon 73-75-5118Chugrsebj784 ng/mLCritically high0-90The [facility] TownshipComment on above:Result Comment: A DOUBLING OF VALUES FROM SERIAL BLOOD COLLECTIONS(1 - 2 HOURS APART) IS MORE INDICATIVE OF A M.I.THAN THE ABSOLUTE VALUE.Performed By: #### 02738, 88938, 52271, 98917, 45789 ####[facility] [place] [address], USAPHOSPHORUS BLOODon 06-19-2017 Phosphate2.7 mg/dLNormal2.5-5.0The [facility] TownshipComment on above:Order Comment: No: Do not add to previous drawPerformed By: #### 49697, 02988, 36697, 92813, 70678 ####[facility] [place] [address], USAALBUMIN BLOODon 62-67-7620Flaspnu8.6 g/dLLow3.5-5.7The [facility] TownshipComment on above:Performed By: #### 62272, 67129, 05750, 85213, 67256 ####[facility] [place] [address], USABASIC METABOLIC PANELon 52-65-1570Gbnmeuq0.4 mg/dLLow 8.6-10.3The [facility] TownshipComment on above:Order Comment: No: Do not add to previous drawPerformed By: #### 85660 ####[facility] [place] [address], UOXEnbcjsnx596 mmol/LNormal 98-107The [facility] TownshipComment on above:Order Comment: No: Do not add to previous drawPerformed By: #### 63873 ####[facility] [place] [address], FPIWU402 mmol/JXupped34-17Xim [facility] TownshipComment on above:Order Comment: No: Do not add to previous drawPerformed By: #### 13994 ####[facility] [place] [address], USACreatinine0.93 mg/dLNormal 0.70-1.30The [facility] TownshipComment on above:Order Comment: No: Do not add to previous drawPerformed By: #### 25919 ####[facility] [place] [address], [facility] CENTEReGFR (black) mL/min/{1.73_m2}Normal>60The [facility] TownshipComment on above:Order Comment: No: Do not add to previous drawResult Comment: Calculation may not be valid for patients over 70 yearsPerformed By: #### 64603 ####[facility] [facility] [address], [place] eGFR (non-black)mL/min/{1.73_m2}Normal>60The [facility] Comment on above:Order Comment: No: Do not add to previous drawResult Comment: Calculation may not be valid for patients over 70 yearsPerformed By: #### 36725 ####[facility] [place] [address], [place] Glucose mass lzco963 mg/bVXccg74-628Xkn [facility] Comment on above:Order Comment: No: Do not add to previous drawPerformed By: #### 65621 ####[facility] [facility] [place] [address], [facility] CENTERPotassium molar conc3.4 mmol/LLow3.5-5.1The [facility] TownshipComment on above:Order Comment: No: Do not add to previous draw Performed By: #### 35157 ####[facility] [place] [address] [place] [address], CJFLcrvgf525 mmol/QPlwkie128-951Zme [facility] TownshipComment on above:Order Comment: No: Do not add to previous draw Performed By: #### 95451 ####[facility] [place] [address], USAUrea aihswswl85 mg/dLNormal7-25The [facility] TownshipComment on above:Order Comment: No: Do not add to previous draw Performed By: #### 28728 ####[facility] [place] [address], [facility] CENTERCBC W/DIFFon 43-77-1883Mxxvzbnzj Auto #/vol (Bld)0.9 % Normal0.0-2.0The [facility] TownshipComment on above:Order Comment: No: Do not add to previous drawPerformed By: #### 67558 ####[facility] [facility] [place] [address], [facility] CENTEREosinophils/100 leukocytes2.3 %Normal0.0-5.0The [facility] TownshipComment on above:Order Comment: No: Do not add to previous drawPerformed By: #### 61149 ####[facility] [place] [address], [facility] Erythrocyte distribution width Auto Ratio (RBC)13.6 %Xmjveg37.5-16.9The [facility] TownshipComment on above:Order Comment: No: Do not add to previous drawPerformed By: #### 65770 ####[facility] [place] [address], [facility] CENTERErythrocytes (RBC)4.37 mill/mm3 Normal4.30-5.90The [facility] TownshipComment on above:Order Comment: No: Do not add to previous drawPerformed By: #### 56440 ####[facility] [place] [address], [facility] CENTERHematocrit (HCT) 42.0 %Btxoon32.0-55.0The [facility] TownshipComment on above: Order Comment: No: Do not add to previous drawPerformed By: #### 68282 ####[facility] [facility] [place] [address], [facility] Hemoglobin mass conc (Bld)14.2 g/jPEithra34.9-16.3The [facility] TownshipComment on above:Order Comment: No: Do not add to previous draw Performed By: #### 00706 ####[facility] [facility] [place] [address], [facility] CENTERLymphocytes/100 qbvflpcmwe83.2 %Low20.0-40.0The [facility] TownshipComment on above:Order Comment: No: Do not add to previous drawPerformed By: #### 50710 ####[facility] [place] [address].[place] [address], MQABKX19.5 nsTbjc98.0-32.0The [facility] TownshipComment on above:Order Comment: No: Do not add to previous drawPerformed By: #### 45994 ####[facility] [facility] [place] [address], [facility] CENTERMCHC mass conc (RBC)33.8 g/dL Yxjmxc47.0-36.0The [facility] TownshipComment on above:Order Comment: No: Do not add to previous drawPerformed By: #### 24008 ####[facility] [facility] [place] [address], VINMEP20.1 fLNormal 80.0-100.0The [facility] TownshipComment on above:Order Comment: No: Do not add to previous drawPerformed By: #### 55697 ####[facility] [facility] [place] [address], [facility]ENTERMETHODNormal RBC MorphologyNormalThe [facility] TownshipComment on above:Order Comment: No: Do not add to previous drawPerformed By: #### 59296 ####[facility] [place] [address], QKQANLHK63.8 %High 2-8The [facility] TownshipComment on above:Order Comment: No: Do not add to previous drawPerformed By: #### 42791 ####[facility] [place] [address], USANeutrophils/100 leukocytes 69.8 %Gvvonj61-35Tkm [facility] TownshipComment on above:Order Comment: No: Do not add to previous drawPerformed By: #### 43075 ####[facility] [place] [address], USAPLAT XZT051 Thou/bl6Tbnqou528-583Mcl [facility] TownshipComment on above: Order Comment: No: Do not add to previous drawPerformed By: #### 72794 ####[facility] [place] [address], [place] WBC (Leukocytes)10.8 Thou/qw2Mlnq9.0-10.0The [facility] Comment on above:Order Comment: No: Do not add to previous drawPerformed By: #### 76556 ####[facility] [place] [address], USACPKon 41-82-6600Fduktwcm kinase (CK)586 U/DCytb44-137Fxq [facility] TownshipComment on above:Performed By: #### 81042, 27173, 66217, 76054, 05159 ####[facility] [place] [address], [facility] CENTERMAGNESIUM BLOODon 03-22-2917Lsemvpmeu8.9 mg/dLNormal1.9-2.7The [facility] TownshipComment on above:Order Comment: No: Do not add to previous drawPerformed By: #### 00248 ####[facility] [place] [address], [facility] CENTERMYOGLOBINon 85-49-8076Qetutwitt524 ng/mLCritically high0-90The [facility] TownshipComment on above:Result Comment: A DOUBLING OF VALUES FROM SERIAL BLOOD COLLECTIONS(1 - 2 HOURS APART) IS MORE INDICATIVE OF A M.I.THAN THE ABSOLUTE VALUE.Performed By: #### 72897, 51921, 89755, 18283, 50019 ####[facility] [place] [address], USAPHOSPHORUS BLOODon 06-18-2017 Phosphate3.7 mg/dLNormal2.5-5.0The [facility] TownshipComment on above:Order Comment: No: Do not add to previous drawPerformed By: #### 00947 ####[facility] [place] [address], [facility] BASIC METABOLIC PANELon 39-74-2985Vsbjlvi5.4 mg/dLLow8.6-10.3The [facility] TownshipComment on above:Order Comment: No: Do not add to previous drawPerformed By: #### 58916 ####[facility] [place] [address], TMNUwrzuvfy196 mmol/TVngs22-364Baj [facility] TownshipComment on above:Order Comment: No: Do not add to previous drawPerformed By: #### 89175 ####[facility] [place] [address], IKYMU479 mmol/SVhjfvu00-75Xgs [facility] TownshipComment on above:Order Comment: No: Do not add to previous drawPerformed By: #### 07091 ####[facility] [place] [address], USACreatinine0.95 mg/dLNormal0.70-1.30The [facility] TownshipComment on above:Order Comment: No: Do not add to previous drawPerformed By: #### 39487 ####[facility] [place] [address], USAeGFR (black)mL/min/{1.73_m2}Normal >60The [facility] TownshipComment on above:Order Comment: No: Do not add to previous drawResult Comment: Calculation may not be valid for patients over 70 yearsPerformed By: #### 84188 ####[facility] [place] [address], USAeGFR (non-black)mL/min/{1.73_m2} Normal>60The [facility] TownshipComment on above:Order Comment: No: Do not add to previous drawResult Comment: Calculation may not be valid for patients over 70 yearsPerformed By: #### 22298 ####[facility] [place] [address], USAGlucose mass gfgq321 mg/dLHigh 70-100The [facility] TownshipComment on above:Order Comment: No: Do not add to previous drawPerformed By: #### 37762 ####[facility] [facility] [facility] [place] [address], USAPotassium molar conc3.5 mmol/LNormal3.5-5.1The [facility] TownshipComment on above:Order Comment: No: Do not add to previous drawPerformed By: #### 20327 ####[facility] [facility] [place] [address], ZSLTokjdu889 mmol/WWyixsn341-656Ize [facility] TownshipComment on above:Order Comment: No: Do not add to previous drawPerformed By: #### 48124 ####[facility] [place] [address], USAUrea vysscphc76 mg/dLNormal7-25The [facility] TownshipComment on above:Order Comment: No: Do not add to previous drawPerformed By: #### 44037 ####[facility] [facility] [place] [address], [facility] CENTERCBC COMPLETE BLOOD COUNTon 02-16-9765Fmawfmxnbjj distribution width Auto Ratio (RBC)13.7 % Fmipcp13.5-16.9The [facility] TownshipComment on above:Order Comment: No: Do not add to previous drawPerformed By: #### 12171 ####[facility] [place] [address], [facility] CENTERErythrocytes (RBC)4.45 mill/rg5Jeumkb2.30-5.90The [facility] TownshipComment on above:Order Comment: No: Do not add to previous drawPerformed By: #### 09472 ####[facility] [facility] [place] [address], [facility] Hematocrit (HCT)42.9 %Dwuora91.0-55.0The [facility] Comment on above:Order Comment: No: Do not add to previous drawPerformed By: #### 08186 ####[facility] [place] [address], [facility] CENTERHemoglobin mass conc (Bld)14.3 g/fYKhfiap90.9-16.3The [facility] TownshipComment on above:Order Comment: No: Do not add to previous drawPerformed By: #### 25276 ####[facility] [facility] [place] [address], EJBCLQ99.1 fhNhua42.0-32.0The [facility] TownshipComment on above:Order Comment: No: Do not add to previous drawPerformed By: #### 71456 ####[facility] [facility] [place] [address], [facility] CENTERMCHC mass conc (RBC)33.3 g/oIFsvgba46.0-36.0 The [facility] TownshipComment on above:Order Comment: No: Do not add to previous drawPerformed By: #### 59852 ####[facility] [place] [address], FPXHKE79.3 mCAzlzal80.0-100.0 The [facility] TownshipComment on above:Order Comment: No: Do not add to previous drawPerformed By: #### 95188 ####[facility] [place] [address].[place] [address], [facility] CENTERPLAT EYE504 Thou/yh0Scqtcv 100-400The [facility] TownshipComment on above:Order Comment: No: Do not add to previous drawPerformed By: #### 19443 ####[facility] [facility] [place] [address], [facility] CENTERWBC (Leukocytes)10.7 Thou/ed2Kodr0.0-10.0The [facility] TownshipComment on above: Order Comment: No: Do not add to previous drawPerformed By: #### 10977 ####[facility] [place] [address], [facility] MYOGLOBINon 22-45-1079Cfihktlin684 ng/mLCritically high0-90The [facility] TownshipComment on above:Result Comment: A DOUBLING OF VALUES FROM SERIAL BLOOD COLLECTIONS(1 - 2 HOURS APART) IS MORE INDICATIVE OF A M.I.THAN THE ABSOLUTE VALUE.Performed By: #### 03687 ####[address] LUMBAR SPINE WO CONTRASTon 04-52-10670A CT LUMBAR SPINE WO CONTRASTUnTriHealthDepartment of Ftyffqksr5421 [place] [id number] Patien t Name: LANDRYJOVANYDESEAN E : 2Sex: MAge: Race: WhiteMRN: [id number]. Location: [id number]: IVisit #: [id number] Date: 06/16/2017 10:45:00 AMCompleted Date: 06/16/2017 11:31 AMRequesting Provider: NADEEN SALCEDO Attending Provider: NADEEN SALCEDO Report Copy To: Signs & Symptoms: Back Pain (specify level)History: Patient history not availableComments: R/O Fractures, If Other selected, state reason for examExam: 3D CT LUMBAR SPINE WO CONTRASTAccession #: [id number]======== 3D CT LUMBAR SPINE WO CONTRAST 06/16/2017 [...] findings. Electronically signed by:Srinath Meyer. Transcribed by: [id number], User Resident: PAOLA ROSTElectronically Signed by: SRINATH MEYER @ 06/16/2017 12:13 PMI personally read this/these film(s) with this residentNorwalk Memorial HospitalComment on above:Order Comment: No: Do not add to previous draw3D CT THORACIC SPINE WO CONTRASTon 33-18-07733L CT THORACIC SPINE WO CONTRASTUnTriHealthDepartment of Vdhkfxurl6070 [place] [address] Patien t Name: DESEAN LANDRY : 1940ex: MAge: Race: WhiteMRN: [id number]. Location: [id number]: IVisit #: [id number] Date: 06/16/2017 10:45:00 AMCompleted Date: 06/16/2017 11:32 [...] findings. Electronically signed by:Srinath Meyer. Transcribed by: [id number], User Resident: CAN HARRISElectronically Signed by: SRINATH MEYER @ 06/16/2017 12:03 PMI personally read this/these film(s) with this residentNorwalk Memorial HospitalComment on above:Order Comment: No: Do not add to previous draw BASIC METABOLIC PANELon 93-34-9328Xhcscey6.9 mg/dLLow8.6-10.3The [facility] TownshipComment on above:Order Comment: No: Do not add to previous drawPerformed By: #### 21732, 45633 ####[facility] [place] [address], OVACdtipios940 mmol/EYtaf95-787Xut [facility] TownshipComment on above:Order Comment: No: Do not add to previous drawPerformed By: #### 59786, 80911 ####[facility] [place] [address], TSGGJ254 mmol/WXgciuc66-72Uez [facility] TownshipComment on above:Order Comment: No: Do not add to previous drawPerformed By: #### 96972, 31239 ####[facility] [place] [address], USACreatinine1.05 mg/dLNormal0.70-1.30The [facility] TownshipComment on above:Order Comment: No: Do not add to previous drawPerformed By: #### 50707, 53659 ####[facility] [place] [address], USAeGFR (black) mL/min/{1.73_m2}Normal>60The [facility] TownshipComment on above:Order Comment: No: Do not add to previous drawResult Comment: Calculation may not be valid for patients over 70 yearsPerformed By: #### 79212, 95383 ####[facility] [facility] [facility] [place] [address], [place] eGFR (non-black)mL/min/{1.73_m2}Normal>60The [facility] Comment on above:Order Comment: No: Do not add to previous drawResult Comment: Calculation may not be valid for patients over 70 yearsPerformed By: #### 33058, 88818 ####[facility] [place] [address], USAGlucose mass mzou177 mg/eETobg20-566Toh [facility] TownshipComment on above:Order Comment: No: Do not add to previous drawPerformed By: #### 67016, 93684 ####[facility] [place] [address], USAPotassium molar conc4.0 mmol/LNormal3.5-5.1The [facility] TownshipComment on above:Order Comment: No: Do not add to previous drawPerformed By: #### 10855, 78947 ####[address] [place] [address], FAJBnzrfl321 mmol/LNormal 136-145The [facility] TownshipComment on above:Order Comment: No: Do not add to previous drawPerformed By: #### 99774, 38139 ####[place] [address] [place] [address], USAUrea ruqepemk52 mg/dLNormal7-25The [facility] TownshipComment on above:Order Comment: No: Do not add to previous drawPerformed By: #### 98293, 31843 ####[address] [place] [address], [facility] BNP (B-TYPE NATRIURETIC PEPTIDE)on 37-42-5465EMW9087 pg/mLHigh0-100The [facility] TownshipComment on above:Order Comment: No: Do not add to previous drawResult Comment: Given the appropriate clinical setting a BNP result of >100 pg/mLindicates congestive heart failure.Performed By: #### 09873 ####[address] [place] [address], [facility] CBC COMPLETE BLOOD COUNTon 36-61-4018Mditkgtquhs distribution width Auto Ratio (RBC)13.7 %Amafhe19.5-16.9The [facility] TownshipComment on above:Order Comment: No: Do not add to previous drawPerformed By: #### 49935, 84539 ####[address] [place] [address], [facility] CENTERErythrocytes (RBC)4.24 mill/lw1Pyr2.30-5.90The [facility] TownshipComment on above:Order Comment: No: Do not add to previous draw Performed By: #### 82439, 66540 ####[address] [place] [address], [facility] CENTERHematocrit (HCT)40.7 %Twbdsl59.0-55.0The [facility] TownshipComment on above:Order Comment: No: Do not add to previous drawPerformed By: #### 22644, 23844 ####[facility] [place] [address].[place] [address], [facility] CENTERHemoglobin mass conc (Bld) 13.6 g/dLLow13.9-16.3The [facility] TownshipComment on above: Order Comment: No: Do not add to previous drawPerformed By: #### 51750, 40929 ####[place] [address], [facility] MCH32.1 jxFldc62.0-32.0The [facility] TownshipComment on above: Order Comment: No: Do not add to previous drawPerformed By: #### 22448, 22084 ####[address] MCHC mass conc (RBC)33.4 g/pJYqmntj17.0-36.0The [facility] TownshipComment on above:Order Comment: No: Do not add to previous drawPerformed By: #### 51155, 45916 ####[place] [address], VFTSBC52.1 gOKaxfbl85.0-100.0The [facility] TownshipComment on above:Order Comment: No: Do not add to previous draw Performed By: #### 61678, 05084 ####[address] [place] [address], [facility] CENTERPLAT QWB125 Thou/ih6Qbfibg850-980Ghe [facility] TownshipComment on above:Order Comment: No: Do not add to previous drawPerformed By: #### 40341, 78251 ####[address] [place] [address], [facility] CENTERWBC (Leukocytes)10.3 Thou/ee5Fije4.0-10.0[facility] HospitalComment on above: Order Comment: No: Do not add to previous drawPerformed By: #### 95622, 74497 ####[facility] [place] [address] CPKon 74-83-1731Qwhicvdv kinase (CK)2950 U/LCritically rirz61-947Cys [facility] TownshipComment on above:Performed By: #### 88223, 53777 ####[address] CR-PORTABLE CHEST 1 VIEW IMPORTon 56-51-5066LO-PORTABLE CHEST 1 VIEW IMPORT Images were obtained outside of [facility] [id number]_IDCSIACNNormalBellevue HospitalCT CHEST WO CONTRASTon 09-39-1214AK CHEST WO CONTRASTUnTriHealthDepartment of Fyauqeprx[address] [place], [place] [address] Patien t Name: DESEAN LANDRY : 2Sex: MAge: Race: WhiteMRN: [id number]. Location: [id number]: IVisit #: [id number] Date: 06/16/2017 5:25:00 PMCompleted Date: 06/16/2017 06:06 PMRequesting Provider: RAFFAELE GARCIA Attending Provider: NADEEN SALCEDO Report Copy To: Signs & Symptoms: Shortness of BreathHistory: Patient history not availableComments: R/O Pleural Effusion, please comment about pleural effusionExam: CT CHEST WO CONTRASTAccession #: [id number] CT CHEST WO CONTRAST 06/16/2017 6:06 PM [...] findings. Electronically signed by:Xiomara Christine. Transcribed by: [id number], User Resident: SUNITHA CAMACHOElectronically Signed by: XIOMARA CHRISTINE @ 06/17/2017 01:24 PMI personally read this/these film(s) with this residentNorwalk Memorial HospitalComment on above:Order Comment: No: Do not add to previous drawCT-3D CT LUMBAR SPINE WO CONTRAST IMPORTon 36-37-6196HM-3D CT LUMBAR SPINE WO CONTRAST IMPORTImages were obtained outside of [facility] [id number]_IDCSIACNNPomerene Hospital ClevelandCT-3D CT THORACIC SPINE WO CONTRAST IMPORTon 54-42-4725ZK-3D CT THORACIC SPINE WO CONTRAST IMPORTImages were obtained outside of [facility] [id number]_IDCSIACTrinity Health System ClevelandCT-CT CHEST WO CONTRAST IMPORTon 14-22-6451FN-CT CHEST WO CONTRAST IMPORTImages were obtained outside of [facility] [id number]_IDCSIACTrinity Health System ClevelandMYOGLOBINon 06-16-2017 Tsmlkkzqr832 ng/mLCritically high0-90The [facility] Comment on above:Result Comment: A DOUBLING OF VALUES FROM SERIAL BLOOD COLLECTIONS(1 - 2 HOURS APART) IS MORE INDICATIVE OF A M.I.THAN THE ABSOLUTE VALUE.Performed By: #### 91657, 67483 ####[facility] [place] [address], USAPORTABLE CHEST 1 VIEWon 06-16-2017 PORTABLE CHEST 1 VIEWUnTriHealthDepartment of Bueegcxth6871 [place] [address] Patien t Name: DESEAN LANDRY : 2Sex: MAge: Race: WhiteMRN: [id number]. Location: [id number]: Rekha #: [id number] Date: 06/16/2017 12:50:00 PMCompleted Date: 06/16/2017 01:22 PMRequesting Provider: NADEEN SALCEDO Attending Provider: NADEEN SALCEDO Report Copy To: Signs & Symptoms: O2 DesaturationHistory: Patient history not availableComments: R/O AspirationExam: PORTABLE CHEST 1 VIEWAccession #: [id number] ====PORTABLE CHEST 1 VIEW 06/16/2017 1:22 PM [...] left chest. Electronically signed by:Srinath Meyer. Transcribedby: [email or web address], User Resident: Electronically Signed by: SRINATH MEYER @ 06/16/2017 01:25 PMNormal The [facility] TownshipComment on above:Order Comment: No: Do not add to previous drawPROTHROMBIN TIMEon 59-23-8712DMJ Coag RelTime (PPP)1.51 {INR}High0.91-1.16The [facility] TownshipComment on above:Order Comment: No: Do not add [...] ACTION, CLINICALEFFECTIVENESS, AND OPTIMAL THERAPEU TIC RANGE. [id number];108:231S-246S.Performed By: #### 85620 ####[facility] [facility] [place] [address], [facility] CENTERProthrombin time (PT) Coag time (PPP)18.4 sHigh12.3-14.8The [facility] Comment on above:Order Comment: No: Do not add to previous drawResult Comment: ALL RESULTS MUST BE INTERPRETED WITH RESPECT TO BLOOD DRAWING ARTIFACTOR DILUTION ERROR OF ANTICOAGULANT AT THE TIME OF SAMPLING.Performed By: #### 06930 ####[facility] [facility] [place] [address], [facility] BASIC METABOLIC PANELon 39-68-6039Cjrzmdu7.0 mg/dLLow8.6-10.3The [facility] TownshipComment on above:Order Comment: No: Do not add to previous drawPerformed By: #### 00487, 63762, 18859, 68654 ####[facility] [place] [address], FRAWoxvxvij840 mmol/LHigh 98-107The [facility] TownshipComment on above:Order Comment: No: Do not add to previous drawPerformed By: #### 59093, 21526, 74378, 32401 ####[facility] [place] [address], [place] CO221 mmol/NSuqdsq99-47Rdp [facility] TownshipComment on above: Order Comment: No: Do not add to previous drawPerformed By: #### 53011, 59185, 03681, 15453 ####[facility] [facility] [place] [address], USACreatinine1.15 mg/dLNormal0.70-1.30The [facility] TownshipComment on above:Order Comment: No: Do not add to previous drawPerformed By: #### 99959, 70461, 51249, 82406 ####[facility] [place] [address], USAeGFR (black)mL/min/{1.73_m2}Normal>60The [facility] TownshipComment on above:Order Comment: No: Do not add to previous drawResult Comment: Calculation may not be valid for patients over 70 yearsPerformed By: #### 32901, 73589, 48539, 56432 ####[facility] [place] [address], USAeGFR (non-black) mL/min/{1.73_m2}Normal>60The [facility] TownshipComment on above:Order Comment: No: Do not add to previous drawResult Comment: Calculation may not be valid for patients over 70 yearsPerformed By: #### 80713, 26282, 83445, 18640 ####[facility] [place] [address], USAGlucose mass ffdh075 mg/gQRkmk28-697Nmy [facility] TownshipComment on above:Order Comment: No: Do not add to previous drawPerformed By: #### 35753, 66893, 06310, 90770 ####[facility] [place] [address], USAPotassium molar conc3.9 mmol/LNormal3.5-5.1The [facility] TownshipComment on above:Order Comment: No: Do not add to previous drawPerformed By: #### 39184, 81385, 69849, 45001 ####[facility] [place] [address], IZULskgkw525 mmol/L Htqcuf692-646Tsh [facility] TownshipComment on above:Order Comment: No: Do not add to previous drawPerformed By: #### 77518, 95217, 46927, 07416 ####[facility] [place] [address], USAUrea eymobjau10 mg/dLNormal7-25The [facility] Comment on above:Order Comment: No: Do not add to previous drawPerformed By: #### 95137, 58298, 36580, 77335 ####[facility] [place] [address], USACBC COMPLETE BLOOD COUNTon 06-15-2017 Erythrocyte distribution width Auto Ratio (RBC)13.7 %Vvsudu41.5-16.9The [facility] TownshipComment on above:Order Comment: No: Do not add to previous drawPerformed By: #### 91174 ####[facility] [place] [address], USAErythrocytes (RBC)4.44 mill/mm3 Normal4.30-5.90The [facility] TownshipComment on above:Order Comment: No: Do not add to previous drawPerformed By: #### 69937 ####[facility] [place] [address], USAHematocrit (HCT) 42.7 %Hdmtcg44.0-55.0The [facility] TownshipComment on above: Order Comment: No: Do not add to previous drawPerformed By: #### 63281 ####[facility] [place] [address], [facility] Hemoglobin mass conc (Bld)14.5 g/eFFilbxi53.9-16.3The [facility] TownshipComment on above:Order Comment: No: Do not add to previous draw Performed By: #### 21683 ####[facility] [facility] [place] [address], DDHIYW67.7 zmXrac46.0-32.0The [facility] TownshipComment on above:Order Comment: No: Do not add to previous drawPerformed By: #### 14117 ####[facility] [facility] [place] [address], [facility] OKLAHOMA CITYHC mass conc (RBC)34.0 g/yTQibbka24.0-36.0The [facility] TownshipComment on above:Order Comment: No: Do not add to previous drawPerformed By: #### 62152 ####[facility] [facility] [place] [address], NPVBUJ34.1 dKQislwf18.0-100.0The [facility] TownshipComment on above:Order Comment: No: Do not add to previous drawPerformed By: #### 48551 ####[facility] [facility] [place] [address], USAPLAT PUO121 Thou/gu8Jiijdb567-259Dyc [facility] TownshipComment on above:Order Comment: No: Do not add to previous drawPerformed By: #### 56950 ####[facility] [facility] [place] [address], [facility] CENTERWBC (Leukocytes)11.3 Thou/kl0Mrny 4.0-10.0The [facility] TownshipComment on above:Order Comment: No: Do not add to previous drawPerformed By: #### 27041 ####[facility] [facility] [place] [address], USACPKon 18-40-2338Ovlcifdl kinase (CK)7925 U/LCritically uqsc42-129Xzm [facility] Comment on above:Order Comment: No: Do not add to previous drawPerformed By: #### 49209, 70309 ####[facility] [place] [address], USAMAGNESIUM BLOODon 16-88-7238Nrhtltifb3.4 mg/dLNormal 1.9-2.7The [facility] TownshipComment on above:Performed By: #### 30317, 11524 ####[facility] [facility] [place] [address], USAPHOSPHORUS BLOODon 52-50-9719Lnpoaevbr6.6 mg/dLNormal 2.5-5.0The [facility] TownshipComment on above:Performed By: #### 04019, 16221 ####[facility] [facility] [place] [address], USABASIC METABOLIC PANELon 33-67-0276Fakxmbq3.3 mg/dLLow 8.6-10.3The [facility] TownshipComment on above:Order Comment: No: Do not add to previous drawPerformed By: #### 10110, 67707, 59543, 64947, 73227 ####[facility] [facility] [place] [address], OZNMxtmgstk655 mmol/AHmqbvj42-609Pnl [facility] Comment on above:Order Comment: No: Do not add to previous drawPerformed By: #### 69790, 48172, 53749, 77748, 76209 ####[facility] [facility] [place] [address], NDDLR278 mmol/XYymzle25-91Nuy [facility] TownshipComment on above:Order Comment: No: Do not add to previous drawPerformed By: #### 53795, 33308, 70066, 32916, 56715 ####[facility] [place] [address], [facility] Creatinine1.25 mg/dLNormal0.70-1.30The [facility] Comment on above:Order Comment: No: Do not add to previous drawPerformed By: #### 15030, 26191, 93964, 48228, 83008 ####[facility] [place] [address], [facility] CENTEReGFR (black)mL/min/{1.73_m2}Normal >60The [facility] TownshipComment on above:Order Comment: No: Do not add to previous drawResult Comment: Calculation may not be valid for patients over 70 yearsPerformed By: #### 27139, 29875, 81999, 15610, 30393 ####[facility] [place] [address], [facility] eGFR (non-black)56 ml/min/1.73sq mAbnormal>60The [facility] TownshipComment on above:Order Comment: No: Do not add to previous drawResult Comment: Calculation may not be valid for patients over 70 yearsPerformed By: #### 71670, 24689, 68448, 54296, 98591 ####[facility] [place] [address], [facility] CENTERGlucose mass vywr092 mg/dLHigh 70-100The [facility] TownshipComment on above:Order Comment: No: Do not add to previous drawPerformed By: #### 15482, 04343, 29978, 79209, 54828 ####[facility] [place] [address], [facility] Potassium molar conc4.3 mmol/LNormal3.5-5.1The [facility] TownshipComment on above:Order Comment: No: Do not add to previous drawPerformed By: #### 60272, 29407, 97175, 33334, 03161 ####[facility] [place] [address], BIQEyhton186 mmol/VLgmupk412-829Qdg [facility] TownshipComment on above:Order Comment: No: Do not add to previous drawPerformed By: #### 32417, 23858, 34087, 62190, 48854 ####[facility] [place] [address], [place] Urea yxprvbgn06 mg/dLNormal7-25The [facility] TownshipComment on above:Order Comment: No: Do not add to previous drawPerformed By: #### 46563, 95505, 30779, 46270, 89082 ####[facility] [place] [address], [facility] CENTERCBC COMPLETE BLOOD COUNTon 63-96-4383Evdipbchspm distribution width Auto Ratio (RBC)13.8 %Cpjkfz87.5-16.9The [facility] TownshipComment on above:Order Comment: No: Do not add to previous draw Performed By: #### 80396 ####[facility] [facility] [place] [address], [facility] CENTERErythrocytes (RBC)4.83 mill/cb8Vmvsjn0.30-5.90The [facility] TownshipComment on above:Order Comment: No: Do not add to previous drawPerformed By: #### 73491 ####[facility] [facility] [place] [address], USAHematocrit (HCT)46.7 %Normal 39.0-55.0The [facility] TownshipComment on above:Order Comment: No: Do not add to previous drawPerformed By: #### 59290 ####[facility] [place] [address], [facility] CENTERHemoglobin mass conc (Bld)15.8 g/cCMpffgc41.9-16.3The [facility] TownshipComment on above:Order Comment: No: Do not add to previous drawPerformed By: #### 72086 ####[facility] [facility] [place] [address], [facility] MCH32.7 lmAfge13.0-32.0The [facility] TownshipComment on above: Order Comment: No: Do not add to previous drawPerformed By: #### 07024 ####[facility] [facility] [place] [address], [facility] MCHC mass conc (RBC)33.9 g/qQSjuelp53.0-36.0The [facility] TownshipComment on above:Order Comment: No: Do not add to previous drawPerformed By: #### 15394 ####[facility] [place] [address].[place] [address], WPLQBF04.6 oWAktbxy21.0-100.0The [facility] Comment on above:Order Comment: No: Do not add to previous drawPerformed By: #### 67260 ####[facility] [place] [address].[place] [address], [facility] CENTERPLAT PBU095 Thou/yr9Idbobs514-035Txk [facility] TownshipComment on above:Order Comment: No: Do not add to previous drawPerformed By: #### [id number] ####[address] [place] [address], [facility] MEDICAL CENTERWBC (Leukocytes)15.7 Thou/fi9Ssnp2.0-10.0The [facility] TownshipComment on above:Order Comment: No: Do not add to previous draw Performed By: #### 26902 ####[address] [place] [address], [facility] CENTERCPKon 57-65-9762Ezxtsyiv kinase (CK)14317 U/LCritically ltxg93-314Zwj [facility] TownshipComment on above:Performed By: #### 21557, 44207, 72930, 73363, 21907 ####[facility] [place] [address].[place] [address], USAMAGNESIUM BLOODon 06-14-2017 Magnesium2.8 mg/dLHigh1.9-2.7The [facility] TownshipComment on above:Order Comment: No: Do not add to previous drawPerformed By: #### 52592, 77833, 23549, 40001, 60800 ####[facility] [place] [address], USAPHOSPHORUS BLOODon 01-91-0062Qzmdyvgmu2.3 mg/dLNormal 2.5-5.0The [facility] TownshipComment on above:Order Comment: No: Do not add to previous drawPerformed By: #### 53860, 41384, 19582, 05879, 70074 ####[facility] [place] [address], USATSHon 59-17-1306Jlymzuf stimulating hormone (TSH)2.65 MICRO-IU/ML Normal0.34-5.60The [facility] TownshipComment on above:Performed By: #### 93785, 26046, 53317, 16414, 66409 ####[facility] [place] [address], USABASIC METABOLIC PANELon 06-13-2017 Calcium8.4 mg/dLLow8.6-10.3The [facility] TownshipComment on above:Order Comment: No: Do not add to previous drawPerformed By: #### 65872, 99492 ####[facility] [place] [address], PHVKvidvaft181 mmol/XEwrgex88-648Jtu [facility] Comment on above:Order Comment: No: Do not add to previous drawPerformed By: #### 93476, 28562 ####[facility] [place] [address], NAMPF019 mmol/AYvuiej74-66Mfr [facility] TownshipComment on above:Order Comment: No: Do not add to previous drawPerformed By: #### 41232, 81277 ####[facility] [place] [address], USACreatinine1.26 mg/dLNormal0.70-1.30The [facility] TownshipComment on above:Order Comment: No: Do not add to previous drawPerformed By: #### 40492, 75133 ####[facility] [place] [address], USAeGFR (black)mL/min/{1.73_m2}Normal>60The [facility] TownshipComment on above:Order Comment: No: Do not add to previous drawResult Comment: Calculation may not be valid for patients over 70 yearsPerformed By: #### 57437, 58865 ####[facility] [place] [address], USAeGFR (non-black)56 ml/min/1.73sq m Abnormal>60The [facility] TownshipComment on above:Order Comment: No: Do not add to previous drawResult Comment: Calculation may not be valid for patients over 70 yearsPerformed By: #### 31788, 61049 ####[facility] [facility] [place] [address], [facility] MEDICAL CENTERGlucose mass ndgg120 mg/aLWkht45-388Tye [facility] TownshipComment on above: Order Comment: No: Do not add to previous drawPerformed By: #### 65184, 15043 ####[facility] [place] [address].[place] [address], [place] Potassium molar conc4.8 mmol/LNormal3.5-5.1The [facility] TownshipComment on above:Order Comment: No: Do not add to previous drawPerformed By: #### 64139, 38424 ####[facility] [place] [address], PCBMcyauj953 mmol/AXznvit328-647Wvy [facility] TownshipComment on above:Order Comment: No: Do not add to previous draw Performed By: #### 23325, 25351 ####[facility] [place] [address], USAUrea qwocsnea18 mg/dLNormal7-25The [facility] TownshipComment on above:Order Comment: No: Do not add to previous drawPerformed By: #### 86423, 66695 ####[facility] [place] [address], USACPKon 60-24-6030Snppopbw kinase (CK)33381 U/LCritically gzso36-680Wek [facility] TownshipComment on above:Order Comment: No: Do not add to previous drawPerformed By: #### 29094, 60450 ####[facility] [place] [address], USAHistory and Physicalon 31-49-0808Cizabkv and PhysicalMR#: [id number] [facility] [place] [facility] Name: Desean Landyr Admitted: 06/13/2017 Date of : 1940 Attending Physician: Arpan Camacho MD Room #: [id number] Discharge Date: HISTORY AND PHYSICALPRIMARY CARE PHYSICIAN: [...] evaluation and management.The patient presented to the [facility] Emergency Department. Overthere, the patient had initial workup revealed severe rhabdomyolysis, sothe patient was referred to the [facility] for further evaluationand management. Denying any chest [...] Dict: 06/13/2017/06:07 Jesse/Mariangel Hayes Trans: 06/13/2017 06:38 P/JuanN_JN:[id number] Memorial Hospital Vital Signs Date TimeVital SignValuePerforming TqipvlfjaXrcltguu13-48-6157 09:22-0400Body .3 cmAnthony Rusher DPM Work Phone: [phone]08-13-2025 09:22-0400Body mass index (BMI) [Ratio]29.53 kg/t8Yimoaqu Rusher DPM Work Phone: [phone] [place], [place] 8633508-13-2025 09:22-0400Body qzsoqx11.72 kgAnthony Rusher DPM Work Phone: [phone] [place], [place] 8633505-07-2025 10:04-0400Body opcjdv578.3 cmAnthony Rusher DPM Work Phone: [phone]05-07-2025 10:04-0400Body mass index (BMI) [Ratio]29.53 kg/t3Kjdjcvo Rusher DPM Work Phone: [phone] [place], [place] 8633505-07-2025 10:04-0400Body wxhruz72.72 kgAnthony Rusher DPM Work Phone: [phone] [place], [place] 8633504-21-2025 13:20-0400Body trxhew627.26 [facility]04[facility]-2025 13:20-0400Body mass index (BMI) [Ratio]29.5 kg/c3ZujbtxpnbPike [facility] Hospital04-21-2025 13:20-0400Body ucmrocvhzec02.7 [degF][facility]04-21-2025 13:20-0400Body .88 kgP[facility] Hospital04-21-2025 13:20-0400Diastolic blood fxgsdyou76 mm[Hg][facility]04-21-2025 13:20-0400 Heart rate60 /[facility]04-21-2025 13:20-0400 Respiratory rate18 /[facility]04-21-2025 13:20-0400 SaO2% (BldA) [Mass fraction]97 %[facility]04-21-2025 13:20-0400Systolic blood afiojqjb266 mm[Hg][facility] Encounters Encounter DateEncounter TypeCare ProviderFacilityStart: 04-17-2025 End: 29-70-7209yjxjihwusvOWCONY SCOOTERMercy Health [facility] Start: 73-68-3174fuzifvvxjfWGHYParkwood Hospitaltart: 01-25-2025 End: 94-33-4413Spymem flowsheetAnthony S Amolher DPM Work Phone: [facility] PodiatryStart: 01-25-2025 End: 21-86-7899Weoiam flowsheetAnthony S Amolher DPM Work Phone: [facility] PodiatryStart: 01-25-2025 End: 09-91-0106jihwinrffaSEQDESR S RUSHERNot AvailableStart: 01-25-2025 End: 34-14-7074Swlddgn encounter procedureAnthony S Marly DPM Work Phone: [facility] PodiatryComment on above:Onychodystrophy (Primary Dx); Onychomycosis; Corns and callosities; Diabetic polyneuropathy associated with type 2 diabetes mellitus (HCC)Start: 17-69-7661rirpothosfLZCMLake County Memorial Hospital - Westtart: 57-53-5873owntafgzwuGOTB OTILIAOUnAshtabula County Medical Center CenterStart: 10-19-2024 End: 13-47-4502Lwbkwc flowsheetLaurieony Erica Luke DPM Work Phone: [facility] PODIATRYStart: 10-19-2024 End: 00-51-0455Bhtlnx flowsheetAnthony S Rusher DPM Work Phone: [facility] PODIATRYStart: 10-19-2024 End: 68-22-8939Rzermc outpatient new 45 minutesAnthony S Rusher DPM Work Phone: noms PODIATRYComment on above:Diabetic polyneuropathy associated with type 2 diabetes mellitus (CMS/HCC) (Primary Dx); Onychodystrophy; Onychomycosis; Corns and callosities; Paronychia of toe of left footStart: 10-19-2024 End: 96-31-6962enmdvtxoibQEWPPVG S RUSHERNot AvailableStart: 10-03-2024 End: 34-65-5364mohhpyyvlwMoukpnyqmOur Lady of Mercy Hospital Work Phone: Start: 10-03-2024 End: 29-86-3141Ruvwaar encounter procedureCone Health Women'S Hospital Physician GroupMATTEAWAN STATE [facility] Work Phone: Start: 08-26-2022 End: 61-52-6968abyidhpstvSP DIOGENES HOY .Facility:F7Nmdmw: 08-20-2022 End: 84-46-4734fdjnflnbkqRE DIOGENES HOY .Facility:L5Uiumd: 07-30-2022 End: 32-77-9813mnkezzlxtqFO DIOGENES HOY .Facility:H0Kogdj: 03-02-2022 End: 42-73-2495aodhyfuwqhDC SRINATH Márquezcility:P6Dfgzs: 02-19-2022 End: 94-10-4062ezkvarycgaDM DIOGENES HOY .Facility:F2Cuwji: 01-15-2022 End: 65-58-6268wrbplzkdorRR DIOGENES HOY .Facility:K6Ofjcf: 04-06-2018 End: 38-42-6911Usfsunk encounter procedureHUMBERTO [facility] Hospitalart: 09-10-2017 End: 52-77-3860Rvyawms encounter procedureOhioHealth Doctors Hospital: 07-23-2017 End: 00-08-8955Jkbqejx encounter procedureCESAR [facility]: 07-23-2017 End: 28-94-3259Wqawpgc encounter procedureKALEB RODRIGUEZClinton Memorial Hospital: 06-13-2017 End: 66-87-5975Jbbykgobjc and management of inpatientASIF MAHMOODFacility:[facility] Procedures DateProcedureProcedure DetailPerforming ClinicianStart: 68-36-6781HLF screening DR DIOGENES CASIANO .Comment on above:Performed By: #### PTT, PT #### [facility] [address] [place] [address] Dr. Artem Rojas Plan of Treatment DateCare ActivityDetailAuthorStart: 05-03-2025 End: 36-29-1907Nzmwpqn encounter kfunqvpge27/19/2025 9:00 AM EST Procedure Visit [facility] [address] [place] [address] Home Luke DPM [address] [place] [address] [facility] Wei PodiatryStart: 25-15-7792Iqwsadskq vaccination [facility] HealthcareStart: 01-25-2025 End: 75-46-3406Jorzvhg encounter wquwcvxno19/13/2025 9:15 AM EDT Procedure Visit [facility] [address] [place] [address] Home Luke DPM [address] [place] [address] [facility] PODIATRYStart: 10-19-2024 End: 98-91-3067Asebdvx encounter dgbnxhapy68/07/2025 10:00 AM EDT Office Visit [facility] [address] [place] [address] Home Luke, DPStephania [address] [place] [address] ArrivedNOMS PODIATRYComment on above:ArrivedStart: 93-47-7325Jampylr referralCherrington Hospital Work Phone: Start: 76-97-8699Collguubjvxs Vaccine: 65+ Years (2 of 2 - PPSV23)Pneumococcal Vaccine: 65+ Years (2 of 2 - PPSV23)[facility] Patient referralCherrington Hospital Work Phone: Immunizations Immunization DateImmunizationNotesCare VmqoukqsFphpppyx86-08-1644lgaigihvv virus vaccine, unspecified formulationHome Luke DPM Work Phone: NOUniversity of Missouri Children's HospitalZqvlvsnook25-88-8429SGICP-86 mRNA, Comirnaty (Pfizer)[facility]03-08-2021COVID-19 mRNA, Comirnaty (Pfizer)[facility] Payers DatePayer CategoryPayerPolicy [id number] ([facility]) ..[id number] 2022Medicaid ..[id number] [id number] 2007MedicareMEDICARE [id number] of Defense ( and others)[id number] [id number] 1942Unknown [id number] [id number] 2.16.840.1.421195.3.57[id number] 2.16.840.1.497042.3.57[id number] 2.16.840.1.556384.3.57[id number] 2.16.840.1.871380.3.57[id number] 2.16.840.1.678796.3.57[id number] 2.16.840.1.926557.3.57[id number] 2.16.840.1.398058.3.579.2.1259Department of Defense ( and others) for [id number] Social History DateTypeDetailFacilityStart: 11-03-2023 End: 74-28-5101Ueftpwg smoking status NHISEx-smoker (finding)[facility] Hospitaltart: 10-14-5299KmyEhsy (finding)[facility] Hospitaltart: 77-12-1652Twn Assigned At BirthMaleFAultman Orrville HospitalTobacco smoking status NHISTobacco smoking consumption unknownNOMS HealthcareStart: 93-90-3065Wdy assigned at birthNot on fileNONC HealthcareStart: 35-45-0231Yuzyos identityNot on fileBEAVER VALLEY HOSPITAL HealthcareHistory of tobacco use Current smokerNOMS HealthcareHistory of tobacco useCigarette SmokerNOMS HealthcareStart: 69-95-7796Nlqtdcs use and exposureSmokeless tobacco non-user [facility] HealthcareStart: 10-19-2024 End: 58-73-9843Uqqbfhzpe beverage intakeEx-drinker (finding)[facility] Start: 63-61-5070Egzbkuv of Social functionNOMS Healthcare Progress note 04-17-2025 Note Date & KbfrTwntFumegqfw17-14-8419 NoteUT Cardiology - [facility] Subjective Desean Landry Jr. [...] normal ventricular function, fixed inferior defect (prior PR vs. artifact), normal wall motion, no ischemia. [...] 07/08/2017: He was admitted recently to [facility] after falling and having rhabdomyolysis. He was hydrated. He did well. This was possibly related to deconditioning and he is getting physical therapy. He will be soon [facility] to home from the [facility]. otherwise he has no issues. Update 02/04/2018: [...] exertion. 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 A sterile #15 blade was [...] understanding. Home Luke DPM documented in this encounterNONC Healthcare History of Present illness Narrative 10-19-2024 Note Date & AmmfUdefEmqhxqjh41-47-4906 History of Present illness Narrative* Home Luke DPM - 10/19/2024 10:00 AM EDT Images from the original note were not included. Subjective Patient ID: Desean Landry Jr is a 83 y.o. 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 Has been bothersome for a couple of months. Pt states he gets his nails trimmed at wound care. ). HPI This is a new patient who presents to clinic today with concern of left great toe pain. Patient states that his nail is very thick and he typically gets them trimmed at the [facility]. It sounds like his toe [...] polyneuropathy associated with type 2 diabetes mellitus (CMS/[facility]) E11.42 2. 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 Onychomycosis [...] utilizing a nail nipper and electric bur tool grinder set up operator gear without incident. A sterile #15 bladewas utilized [...] understanding. Home Luke DPM documented in this encounterWashington Rural Health [facility] Discharge instructions 10-03-2024 Note Date & IipmFzmnVtjosjst43-33-7715 Hospital Discharge instructionsAmbulatory Orders* Referral to Podiatry Time Frame: 10/03/24, Location: None Selected [facility] Work Phone: Evaluation note Note Date & TypeNoteFacilityEvaluation noteNo assessment information available [facility] Work Phone: Evaluation note Note Date & TypeNoteFacilityEvaluation note* Diagnosis Diabetic polyneuropathy associated with type 2 diabetes mellitus ([facility]/HCC)- Primary Onychodystrophy Other specified disease of nail Onychomycosis Dermatophytosis of nail Corns and callosities Paronychia of toe of left foot documented in this encounter [facility] Evaluation note Note Date & TypeNoteFacilityEvaluation note* Diagnosis Onychodystrophy- Primary Other specified disease of nail Onychomycosis Dermatophytosis of nail Corns and callosities Diabetic polyneuropathy associated with type 2 diabetes mellitus (HCC) documented in this encounter [facility] Healthcare Summary Purpose Family History No [...] and content) DATE CREATED AUTHOR 12/08/2017 [facility] DATE CREATED AUTHOR AUTHOR'S ORGANIZ ATION 05/18/2018 [facility] DATE CREATED AUTHOR AUTHOR'S ORGANIZ ATION 01/16/2021 [facility] DATE CREATED AUTHOR AUTHOR'S ORGANIZ ATION 06/06/2021 [facility] DATE CREATED AUTHOR AUTHOR'S ORGANIZ ATION 09/02/2022 [facility] DATE CREATED AUTHOR AUTHOR'S ORGANIZ ATION 01/26/2025 [facility] DATE CREATED AUTHOR AUTHOR'S ORGANIZ ATION 04/17/2025 [facility] Care Teams (unrecognized sec tion and content) Team Status: Active Member Role Status Dates Diogenes Casiano MD Primary Care Provider Active Team Status: Inactive Member Role Status Dates Diogenes Casiano MD Primary Care Provider Active Start: October 03, 2024 End: October 03, 2024Murray Mcallister ProviderActiveStart: October 03, 2024 End: October 03, 2024Team MemberRelationshipSpecialtyStart DateEnd Date Diogenes Casiano MD [address] [place] [address] [facility] - [facility]10/19/24Team MemberRelationshipSpecialtyStart DateEnd Date Diogenes Casiano MD [address] [place] [address] [facility] - [facility] Medicine10/19/24Team MemberRelationshipSpecialtyStart DateEnd Date Diogenes Casiano MD [address] [place] [address] PCP - GeneralFamily Medicine10/19/24Team MemberRelationshipSpecialtyStart DateEnd Date Diogenes Casiano MD [address] [place] [address] PCP - GeneralFamily Medicine10/19/24 Goals (unrecognized section and content) Goals may be documented in a n alternate section Reason for Visit (unrecogniz ed section and content) ReasonCommentsToenail Care83 yo 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 [employer] provides no warranty or guarantee of the accuracy or completeness of information in this document.
== END 2025-05-04 09:52 | disposition home or self-care (01) ==
LOC: CARD 09:51
PROVIDERS: PCP Family Medicine; Visit Provider Internal Medicine Interventional Cardiology
DX: I48.21 Permanent atrial fibrillation (principal)
CPT/HCPCS: 93306

== ENCOUNTER 2025-05-08 15:03 | Outpatient (OUT) | payer MEDICARE, OTHER, MEDICAID, SELFPAY ==
--- OUTSIDE RECORDS SUMMARY | 2025-05-03 09:00 | XMS_ITS | Encounter Summary ---
Author Organization [facility] Address [address] [place] [address] Care Team Providers Care Main Line Station Engineer Name Role Phone Vahid Garcia MD Primary Care Provider [phone] Reason for Visit * ReasonCommentsDM Foot CarePt is here today for diabetic foot careBS: 118 A1C:LV Dr. Garcia 47-04-4889YS: 9.5 Encounter Details DateTypeDepartmentCare Team (Latest Contact Info)Zlxeaccmxfr97/19/2025 9:00 AM ESTProcedure Visit [facility] [address] [place] [address] Home Luke, DPStephania [address] [place], [place] [address] Onychodystrophy (Primary Dx); Onychomycosis; Corns and callosities; Diabetic polyneuropathy associated with type 2 diabetes mellitus (HCC) Social History Tobacco UseTypesPacks/DayYears UsedDateSmoking Tobacco: FormerCigarettes Smokeless Tobacco: Never Tobacco Cessation:Counseling Given: Not Answered Alcohol UseStandard Drinks/WeekCommentsNot Currently0 (1 standard drink = 0.6 oz pure alcohol)Sex and Gender InformationValueDate RecordedSex Assigned at Not on fileLegal MtuFaxg2108/27/2022 8:14 PM EDTGender IdentityNot on fileSexual OrientationNot on filedocumented as of this encounter Last Filed Vital Signs Vital SignReadingTime TakenCommentsBlood Pressure--Pulse--Temperature-- Respiratory Rate--Oxygen Saturation--Inhaled Oxygen Concentration--Wzteua18.4 kg (197 lb)05/03/2025 9:14 AM UBRThqjbb881.3 cm (5' 9 )05/03/2025 9:14 AM ESTBody [...] utilizing a nail nipper and electric bur snuff grinder and screener without incident. A sterile #15 blade was [...] Plan of Treatment DateTypeDepartmentCare Team (Latest Contact Info)Ozmjewkalrv91/23/2026 9:00 AM ESTProcedure Visit [facility] [address] [place] [address] Home Luke, DPM [address] [place] [address] documented as of this encounter Visit Diagnoses Diagnosis Onychodystrophy- Primary Other specified disease of nail Onychomycosis Dermatophytosis of nail Corns and callosities Diabetic polyneuropathy associated with type 2 diabetes mellitus (HCC) documented in this encounter Care Teams Team MemberRelationshipSpecialtyStart DateEnd Date Vahid Garcia MD [address] [place] [address] PCP - GeneralFamily Medicine10/19/24documented as of this encounter
--- OUTSIDE RECORDS SUMMARY | 2025-05-08 15:08 | XMS_ITS | Clinical Summary ---
Author Organization [facility] Address [address] [place] [address] Care Team Providers Care It Risk Advisor Name Role Phone Vahid Garcia MD Primary Care Provider [phone] Allergies No known active allergies Medications MedicationSigDispense [...] mg by mouth at bedtimeActive Encounters DateTypeDepartmentCare LndbKrluqayfyvo08/19/2025 9:00 AM ESTProcedure Visit [facility] [address] [place] [address] Home Luke DPM Onychodystrophy (Primary Dx); Onychomycosis; Corns and callosities; Diabetic polyneuropathy associated with type 2 diabetes mellitus (HCC)05/03/2025 Bamboo flowsheet [facility] [address] [place] [address] Home Luke DPM 05/03/2025Travelfrom Last 3 Months Family History Medical HistoryRelationNameCommentsCancerMotherRelationNameStatusCommentsFather DeceasedMotherDeceased Social History Tobacco UseTypesPacks/DayYears UsedDateSmoking Tobacco: FormerCigarettes Smokeless Tobacco: Never Tobacco Cessation:Counseling Given: Not Answered Alcohol UseStandard Drinks/WeekCommentsNot Currently0 (1 standard drink = 0.6 oz pure alcohol)Sex and Gender InformationValueDate RecordedSex Assigned at Not on fileLegal EzkJylg0408/27/2022 8:14 PM EDTGender IdentityNot on fileSexual OrientationNot on file Last Filed Vital Signs Vital SignReadingTime TakenCommentsBlood Qukaacqd088/7010 12:00 PM EDT Pulse--Temperature--Respiratory Rate--Oxygen Saturation--Inhaled Oxygen Concentration--Cohscz35.4 kg (197 lb)05/03/2025 9:14 AM OHMHbvgeq880.3 cm (5' 9 )05/03/2025 9:14 AM ESTBody Mass Index29.0905/03/2025 9:14 AM EST Plan of Treatment DateTypeDepartmentCare Team (Latest Contact Info)Fplbvpevfvh03/23/2026 9:00 AM ESTProcedure Visit [facility] [address] [place] [address] Home Luke, DPStephania [address] [place], [place] [id number] Insurance Care Teams Team MemberRelationshipSpecialtyStart DateEnd Vahid Garcia MD [address] [place] [address] PCP - GeneralFanjly Medicine10/19/24
--- OUTSIDE RECORDS SUMMARY | 2025-05-08 15:08 | XMS_ITS | Clinical Summary ---
Author Organization [facility] Address [address] [place], [place] [address] Care Team Providers Care Usability Specialist Name Role Phone Vahid Garcia MD Primary Care Provider [phone] Allergies No known active allergies Active Problems No known active problems Family History Medical HistoryRelationCommentsHeart diseaseOtherunclear which family member RelationStatusCommentsOther Social History Tobacco UseTypesPacks/DayYears UsedDateSmoking Tobacco: FormerCigarettesQuit: 07/23/2011Smokeless Tobacco: NeverAlcohol UseStandard Drinks/WeekCommentsYes0 (1 standard drink = 0.6 oz pure alcohol)Area Deprivation IndexAnswerDate Recorded National Score (1-100), lower number is lower riskNot on file05/24/2020State Score (1-10), lower number is lower riskNot on file05/24/2020Data from: https://www.neighborhoodatlas.medicine.[facility].edu/. Last address used for calculationNot on file05/24/2020Sex and Gender InformationValueDate RecordedSex Assigned at BirthNot on fileLegal IifLzmb6211/09/2015 3:25 PM EDTGender Identity Not on fileSexual OrientationNot on file Last Filed Vital Signs Vital SignReadingTime TakenCommentsBlood Imeloquq063/6803 9:28 AM EDT Pwdye2735 9:28 AM SHFPsfaeizjomb21.5 ??C (97.7 ??F)09/10/2017 9:28 AM EDTRespiratory Pvpp6229 9:28 AM EDTOxygen Hldktqivmb79%09/10/2017 9:28 AM EDTInhaled Oxygen Concentration--Fperge61.3 kg (199 lb)09/10/2017 9:28 AM EDT Tspdmk502.3 cm (5' 9 )09/10/2017 9:28 AM EDTBody Mass Index29.39009/10/2017 9:28 AM EDT Plan of Treatment Health MaintenanceDue DateLast DoneCommentsAnxiety Crqpgoflv41/14/1960Depression Bdqodkflr95/14/1960DTaP,Tdap,Td Vaccine (1 - Tdap)1Diabetes Screening 1986Pneumococcal Vaccine: 50+ (1 of 1 - PCV)10/27/1991Shingrix Vaccine (1 of 2)10/27/1991RSV Vaccine (1 - 1-dose 75+ series)2016Advance Directive Xmjzrlmhrt49/01/2025ovid-19 Vaccine (1 - 2024- season)2025Influenza Vaccine (#1)2025 Insurance Care Teams Team MemberRelationshipSpecialtyStart Date Vahid Garcia MD [facility] Medicine11/09/15
--- OUTSIDE RECORDS SUMMARY | 2025-05-08 15:08 | XMS_ITS | Clinical Summary ---
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 Name Role Phone Vahid Garcia MD Primary Care Provider [phone] Allergies No known active allergies Medications MedicationSigDispense [...] breakfast.4Active Active Problems ProblemNoted DateDiagnosed DateCallus of toe2739Xwscouyke74/01/2024Status post placement of cardiac fijptztdg71/20/5485Lqmebxpavbg05/05/2023 Overview (06/19/2022): Added automatically from request for surgery [id number] Atrial dkfwnpkzaeao01/22/2022hronic obstructive lung mrrdsuj6106/05/2022yspnea 06/05/20222244Zswuwesppzsnnl94/22/2022Low back pain06/05/2022Longstanding persistent atrial cqontfjnrnrx09/07/2022rimary gebvrmtavboc90/07/2022eripheral venous /07/2022losed nondisplaced fracture of sixth cervical vertebra 03/03/2022Intermittent mhkdhmcvnfhi51/29/2021PAD (peripheral artery disease) 03/23/2020 Encounters DateTypeDepartmentCare PrpxRuhaocudwws46/03/2025 10:[address] [facility] [address] [place] [phone] Jourdan Moore MD Permanent atrial fibrillation (CMS/HCC) (Primary Dx); Primary hypertension; Cardiac pacemaker in situ; Mixed hyperlipidemia; Peripheral venous ayahmvbvbneub00/16/2025 11:[address] [address] [place] [address] Adjustment and management of cardiac uvbiopmvk52/16/2025Orders Only [facility] [address] [place] [address] Damian Martinez MD from Last 3 Months [...] relatives?Twice a week09/02/2022How often do you attend advent or latter-day services?More than 4 times per year09/02/2022o you belong to any clubs or organizations such as advent groups, unions, fraternal or athletic emma ups, or school groups?Yes09/02/2022How often do you attend meetings of the clubs or organizations you belong to?More than 4 times per year09/02/2022re you , , , , never , or living with a partner? Gqtuwfyst65/21/2023UDIT-CAnswerDate RecordedQ1: How often do you have a [...] housing, medical care, and heating?Not hard at all09/02/2022[place] [facility] [place] [facility] [employer] [facility] - Occupational Stress QuestionnaireAnswerDate [...] steady place to sleep or slept in [facility] (including now)?No 09/02/2022Hunger Vital SignAnswerDate RecordedWithin the past 12 months, you worried that your food would run out before you got the money to buymore.Never true09/02/2022Within the past 12 months, the food you bought just didn't last and you didn't have money to get more.Never true09/02/2022Sex and Gender InformationValueDate RecordedSex Assigned at AtkxvIufp36/17/2025 8:22 PM EDT Legal CyyYinp7612/11/2021 10:46 PM EDTGender TjvxxqftJook32/17/2025 8:22 PM EDT Sexual OrientationChoose not to xoydqgvt82/17/2025 8:22 PM EDT Last Filed Vital Signs Vital SignReadingTime TakenCommentsBlood Slqfqefh701/6811 10:09 AM EST Tujec603004/17/2025 10:09 AM NUBXtckpphvwzd72 ??C (98.6 ??F)09/02/2022 4:00 PM EDT Respiratory Txae776509/02/2022 4:00 PM EDTOxygen Zxerbcbxyn54%04/17/2025 10:09 AM ESTInhaled Oxygen Concentration--Vdzvjv95.5 kg (195 lb)04/17/2025 10:09 AM EST Cffqkw019.3 cm (5' 9 )04/17/2025 10:09 AM ESTBody Mass Index28.8106/17/2024 10:09 AM EST Plan of Treatment Health MaintenanceDue DateLast DoneCommentsDiabetes: Hemoglobin A1C05/ Medicare Annual Wellness (AWV)2Diabetes: Retinopathy Screening 2Depression Wykpxgzgi20/14/1954Diabetes: Urine Protein Screening 1960Zoster Vaccines (1 of 2)10/27/1991Fall Risk Ruyquhkge06/14/2007 Pneumococcal Vaccine: 50+ Years (2 of 2 - PPSV23, PCV20, or PCV21)05/29/2017 04/03/2017COVID-19 Vaccine ( - season)/, 05/07/2021, 09/11/2020, Additional history existsInfluenza Vaccine (#1)/, 03/21/2020, 04/03/2017Adult Nqunxct77HIB VaccinesAged OutNo longer eligible based on patient's [...] 09/01/2022 by Damian Martinez MD at [facility] [id number] / [id number] / Pacer,Accolade Mri Sr - [id number] - [id number] Implanted:Qty: 1 on 09/01/2022 by Damian Martinez MD at [facility] [id number] / [id number] / Procedures Procedure NamePriorityDate/TimeAssociated DiagnosisCommentsCARDIAC DEVICE CHECK CHECK - INGBKWVzechat45/17/2025 10:24 AM EDT Adjustment and management of cardiac pacemaker CARDIAC DEVICE CHECK - REMOTE - PIUOOCEZMVldklhw27/16/2025 12:00 AM EDTfrom Last 3 Months Results [...] Team MemberRelationshipSpecialtyStart DateEnd Date Vahid Garcia MD [address] [place] [id number] [facility]04/18/22
--- OUTSIDE RECORDS SUMMARY | 2025-05-08 15:08 | XMS_ITS | Encounter Summary ---
Author Organization [facility] Address [address] [place] [address] Care Team Providers Care Basketball Coach Name Role Phone Vahid Garcia MD Primary Care Provider [phone] Encounter Details DateTypeDepartmentCare Team (Latest Contact Info)Gwnuekmoyrm72/19/2025Travel Social History Tobacco UseTypesPacks/DayYears UsedDateSmoking Tobacco: FormerCigarettes Smokeless Tobacco: NeverAlcohol UseStandard Drinks/WeekCommentsNot Currently0 (1 standard drink = 0.6 oz pure alcohol)Sex and Gender InformationValueDate RecordedSex Assigned at BirthNot on fileLegal UmsUbvb7408/27/2022 8:14 PM EDT Gender IdentityNot on fileSexual OrientationNot on filedocumented as of this encounter Plan of Treatment DateTypeDepartmentCare Team (Latest Contact Info)Xfrzbsvkqhg66/23/2026 9:00 AM ESTProcedure Visit [facility] [address] [place] [phone] [address] Luke DPStephania [address] [place] [address] documented as of this encounter Visit Diagnoses Not on filedocumented in this encounter Care Teams Team MemberRelationshipSpecialtyStart DateEnd Date Vahid Garcia MD [address] [place] [address] PCP - GeneralFamily Medicine10/19/24documented as of this encounter
--- OUTSIDE RECORDS SUMMARY | 2025-05-08 15:08 | XMS_ITS | Encounter Summary ---
Author Organization [facility] Address [address] [place] [address] Care Team Providers Care Automatic Pattern Edger Name Role Phone Vahid Garcia MD Primary Care Provider [phone] Encounter Details DateTypeDepartmentCare Team (Latest Contact Info)Aeaziaaxvsl65/19/2025amboo flowsheet [facility] [address] [place] [address] Home Luke DPM [address] [place], [place] [phone] Social History Tobacco UseTypesPacks/DayYears UsedDateSmoking Tobacco: FormerCigarettes Smokeless Tobacco: NeverAlcohol UseStandard Drinks/WeekCommentsNot Currently0 (1 standard drink = 0.6 oz pure alcohol)Sex and Gender InformationValueDate RecordedSex Assigned at BirthNot on fileLegal MllQiep0008/27/2022 8:14 PM EDT Gender IdentityNot on fileSexual OrientationNot on filedocumented as of this encounter Plan of Treatment DateTypeDepartmentCare Team (Latest Contact Info)Bvllscwsuzk69/23/2026 9:00 AM ESTProcedure Visit [facility] [address] [place] [address] Home Luke DPM [address] [place] [address] documented as of this encounter Visit Diagnoses Not on filedocumented in this encounter Care Teams Team MemberRelationshipSpecialtyStart DateEnd Date Vahid Garcia MD [address] [place] [phone] PCP - GeneralFamily Medicine10/19/24documented as of this encounter
--- OUTSIDE RECORDS SUMMARY | 2025-05-08 15:11 | XMS_ITS | CCD ---
Author Organization [facility] Care Team Providers Care Insulation Supervisor Name Role Phone ARPAN CAMACHO Unavailable Unavailable SAHRA GILMORE Unavailable Unavailable DIOGENES CASIANO Unavailable Unavailable DIOGENES REN Unavailable Unavailable LORI, RENDELL Unavailable Unavailable LORI, RENDELL Unavailable Unavailable JOSE ITALO (MCAT TUTOR) Unavailable Unavailable LORI, RENDELL Unavailable Unavailable LORI, [...] Unavailable Diogenes Casiano MD Primary Care Provider [phone] HOME LUKE Attending Unavailable HOME LUKE Attending Unavailable DREAD WOLF Referring Unavailable DREAD WOLF Referring Unavailable DREAD WOLF Referring Unavailable DRAGAN PEPPER Attending Unavailable Medications Current Medications MedicationDrug Class(es)DatesSig (Normalized)Sig (Original)apixaban 5 mg oral tablet (5 sources)Factor Xa InhibitorStart: 91-08-2610gzjj 1 tablet by mouth once daily Apixaban (Eliquis) 5 mg tablet Active 5 MG PO Daily January 10, 2021 12:00am aspirin 81 mg delayed release oral tablet (4 sources)Platelet Aggregation Inhibitor, Nonsteroidal Anti-inflammatory Drug take 1 tablet by mouth once dailyaspirin 81 MG EC tablet Take 81 mg by mouth Daily Activebumetanide 1 mg oral tablet (1 source)Loop DiureticStart: 15-91-4854lbxe 1 tablet by mouth once daily Bumetanide 1 mg tablet Active 1 MG PO Daily January 10, 2021 12:00am cholecalciferol 0.025 mg oral capsule (4 sources)Vitamin Dtake 1 capsule by mouth once dailycholecalciferol (Vitamin D-3) 25 MCG (1000 UT) capsule Take 1,000 Units by mouth Daily Activeclotrimazole 10 mg/ml topical cream (1 source)Azole AntifungalStart: 93-78-0754Ylfznnejzety (Antifungal (Clotrimazole)) 1 % cream Active 1 APPLIC TOPICAL Twice daily 45 14 November 03, 2023 12:00amglimepiride 2 mg oral tablet (4 sources)Sulfonylureatake 1 tablet by mouth before mealtimeglimepiride (Amaryl) 2 MG tablet Take 2 mg by mouth in the morning. Take before meals. Activehydrocortisone acetate 25 mg rectal suppository (1 source)CorticosteroidStart: 08-19-8713Tsmcvizbdnsqli Acetate 25 mg suppository Active 25 MG UT Twice daily January 10, 2021 12:00amhydrocortisone acetate 25 mg/ml / pramoxine hydrochloride 10 mg/ml topical cream (1 source)CorticosteroidStart: 46-19-1283Ogcllojhwylbtf-Pramoxine 2.5-1 % cream Active 1 APPLIC TOPICAL Twice daily January 10, 2021 12:00amhyoscyamine sulfate 0.125 mg sublingual tablet (1 source)Start: 89-24-9677attw 1 tablet by mouth once dailyHyoscyamine Sulfate 0.125 mg tablet, sublingual Active 0.125 MG PO Daily January 10, 2021 12:00am lisinopril 5 mg oral tablet (1 source)Angiotensin Converting Enzyme InhibitorStart: 08-53-0951nyhu 1 tablet by mouth once dailyLisinopril 5 mg tablet Active 5 MG PO Daily January 10, 2021 12:00ammetFORMIN hydrochloride 500 mg oral tablet (1 source)BiguanideStart: 14-64-4863bxkq 1 tablet by mouth twice dailyMetformin 500 mg tablet Active 500 MG PO Twice daily January 10, 2021 12:00ammetoprolol tartrate 50 mg oral tablet (1 source)beta-Adrenergic BlockerStart: 28-22-1827Nlciaowkgj Tartrate 50 mg tablet Active 25 MG PO Twice daily January 10, 2021 12:00amsimvastatin 20 mg oral tablet (5 sources)HMG-CoA Reductase InhibitorStart: 82-12-1880ltxb 1 tablet by mouth once dailySimvastatin 20 mg tablet Active 20 MG PO Daily January 10, 2021 12:00am spironolactone 50 mg oral tablet (4 sources)Aldosterone Antagonisttake 1 tablet by mouth once dailyspironolactone (Aldactone) 50 MG tablet Take 50 mg by mouth Daily Active Problems Active Problems Problem ClassificationProblemDateDocumented DateEpisodic/ChronicAlcohol-related disorders (1 source)Alcohol dependence with withdrawal, unspecified; Translations: [ALCOHOL DEPENDENCE WITH WITHDRAWAL,UNSPECIFIED]Onset: 50-90-5275NbsesntIwyygfa dysrhythmias (1 source)Chronic atrial fibrillation; Translations: [CHRONIC ATRIAL FIBRILLATION]Onset: 11-96-1748SsrkidmEwnibzk dysrhythmias (4 sources)Bradycardia, unspecified; Translations: [BRADYCARDIA UNSPECIFIED] Onset: 70-61-7202UwlxmvjhAnyjcbx obstructive pulmonary disease and bronchiectasis (1 source)Chronic obstructive pulmonary disease, unspecified; Translations: [COPD UNSPECIFIED]Onset: 52-66-8010SrexfcoFmqjcpxiwz disorders (4 sources)Presence of cardiac pacemaker; Translations: [Encounter for adjustment and management of other partof cardiac pacemaker]Onset: 03-01-2025 ChronicCongestive heart failure; nonhypertensive (1 source)Unspecified diastolic (congestive) heart failure; Translations: [UNSPECIFIED DIASTOLIC HEART FAILURE]Onset: 45-33-7748HlmlazuGgocbjeuia and other anemia (1 source)Anemia, unspecified; Translations: [ANEMIA UNSPECIFIED]Onset: 57-86-4662MwuxklubEbxgfmaz mellitus with complications (3 sources)Polyneuropathy due to type 2 diabetes mellitus; Translations: [Type 2 diabetes mellitus with diabetic polyneuropathy]16-75-9132FokzeiwTnkpqzqq mellitus without complication (1 source)Other abnormal glucose; Translations: [OTHER ABNORMAL GLUCOSE]Onset: 01-79-2557CtikbkliNwrklsrrn of lipid metabolism (4 sources)Hyperlipidemia, unspecified; Translations: [Mixed hyperlipidemia] Onset: 91-00-7236GxknacfCwerfejcy hypertension (7 sources)Essential (primary) hypertension; Translations: [ESSENTIAL (PRIMARY) HYPERTENSION]Onset: 84-32-5566MozztuyYdzjmzrc Injury - Fall (1 source)Other fall on same level, initial encounter; Translations: [OTHER FALL ON SAME LEVEL, INITIAL ENCOUNTER]Onset: 81-61-0739Cxvxwwqooxbf conditions of male genital organs (1 source)Balanitis; Translations: [Balanitis]54-61-9659UawnmkpXzwutgl and fatigue (1 source)Other fatigue; Translations: [OTHER FATIGUE]Onset: 06-65-0314Goszuixu Mycoses (3 sources)Onychomycosis; Translations: [Tinea unguium]44-68-0782Vadhwkrs Nutritional deficiencies (1 source)Vitamin D deficiency, unspecified; Translations: [VITAMIN D DEFICIENCY UNSPECIFIED]Onset: 54-88-4661VaoltejDdacn diseases of veins and lymphatics (2 sources)Venous insufficiency (chronic) (peripheral); Translations: [Venous insufficiency (chronic) (peripheral)]Onset: 30-48-4111HzkcrjqvMzhvt lower respiratory disease (1 source)Other nonspecific abnormal finding of lung field; Translations: [Other nonspecific abnormal findingof lung field]Onset: 97-56-1774BceytgchExyee lower respiratory disease (1 source)Dyspnea, unspecified; Translations: [DYSPNEA UNSPECIFIED]Onset: 76-08-4116ScifxtmmIrasx non-traumatic joint disorders (1 source)Pain in unspecified joint; Translations: [PAIN IN UNSPECIFIED JOINT] Onset: 41-92-1594IekrcpjlArgsf screening for suspected conditions (not mental disorders or infectious disease) (1 source)Encounter for screening for malignant neoplasm of prostate; Translations: [ENC SCREEN MALIG NEOPLASM PROSTATE]Onset: 84-11-7748CivpthyrWrmlr skin disorders (1 source)Callosity on toe; Translations: [Corns and callosities]10-03-2024 EpisodicOther skin disorders (3 sources)Dystrophia unguium; Translations: [Nail dystrophy]63-02-7939Ycefgtno Other skin disorders (3 sources)Callosity; Translations: [Corns and callosities]65-67-5260Rtifzdrl Other upper respiratory infections (1 source)Acute sinusitis, unspecified; Translations: [ACUTE SINUSITIS UNSPECIFIED]Onset: 68-98-4192LtygkrkqPetglmbulb and visceral atherosclerosis (1 source)Peripheral vascular disease, unspecified; Translations: [PERIPHERAL VASCULAR DISEASE UNS]Onset: 95-69-9482PuzindtLfkrxzoe; pneumothorax; pulmonary collapse (5 sources)Pleural effusion, not elsewhere classified; Translations: [Pleural plaque without asbestos]Onset: 40-72-2129FnpoxbwzHqvq and subcutaneous tissue infections (2 sources)Paronychia of toe of left foot; Translations: [Cellulitis of left toe]37-75-5446PpvtuqpjUtqmcimsdpdf (2 sources)Unknown / UNK(Unknown)Onset: 11-29-2455Yenxbbzdrdvb (4 sources)CONTACT W/AND (SUSP) EXPOS COVID-19; Translations: [CONTACT W/AND (SUSP) EXPOS COVID-19]Onset: 80-89-2442Kuuemtauikas (2 sources)Permanent atrial fibrillation; Translations: [Permanent atrial fibrillation]Onset: 06-05-2022 Past or Other Problems Problem ClassificationProblemDateDocumented DateEpisodic/ChronicE Codes: Fall (1 source)Unspecified fall, initial encounter; Translations: [UNSPECIFIED FALL INITIAL ENCOUNTER]Onset: 04-97-7153IboxmzkuTnobdyinxl obstruction without hernia (4 sources)Partial intestinal obstruction, unspecified as to cause; Translations: [PART INTESTINAL OBST UNS ASTO CAU]Onset: 21-21-6258Cmcryeko Nonmalignant breast conditions (4 sources)Unspecified lump in right breast, subareolar; Translations: [UNSPEC LUMP IN RT BREAST SUBAREOLAR]Onset: 56-51-6665PfjfhrkzNnij wounds of head; neck; and trunk (1 source)Laceration without foreign body of scalp, initial encounter; Translations: [LACERATION W/O FB SCALPINITIAL ENC]Onset: 53-96-8695VhvvhxhfQmjwd aftercare (1 source)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; Translations: [SUPERVISOR TELEVISION CHASSIS REPAIR (CURRENT) USE OF ANTICOAGULANTS]Onset: 02-55-5630QstmrwdzLnyvz aftercare (1 source)halfway (current) use of oral hypoglycemic drugs; Translations: [SUPERVISOR TELEVISION CHASSIS REPAIR USE ORAL HYPOGLYCEMIC DX]Onset: 05-17-6738YxsghbheUwnjo aftercare (1 source)Other intermodal customer service (current) drug therapy; Translations: [OTH RESIDENTIAL CURRENT DRUG THERAPY]Onset: 98-07-4673RingitjdCjbus connective tissue disease (3 sources)Rhabdomyolysis; Translations: [RHABDOMYOLYSIS]Onset: 06-13-2017 EpisodicOther fractures (1 source)Unspecified displaced fracture of sixth cervical vertebra, initial encounter for closed fracture; Translations: [UNS DSPL FX 6TH CV INIT JAY FX] Onset: 51-99-7418SwocnbwqXxzpf injuries and conditions due to external causes (3 sources)Unspecified injury of head, initial encounter; Translations: [UNSPECIFIED INJURY HEAD INITIAL ENC]Onset: 49-43-1429NxglihuwHwuoh upper respiratory disease (1 source)Other diseases of bronchus, not elsewhere classified; Translations: [Other diseases of bronchus, not elsewhere classified]Onset: 83-91-4785Njwikqhw Screening or history of mental health and substance abuse (2 sources)Personal history of nicotine dependence; Translations: [PERSONAL HISTORY OF NICOTINE DEPENDENCE]Onset: 81-37-2564UebwanqlVsjpbqhrfsr; intervertebral disc disorders; other back problems (1 source)Dorsalgia, unspecified; Translations: [DORSALGIA, UNSPECIFIED]Onset: 65-32-6265JkjudaqqLzulxqxdbpe injury; contusion (1 source)Contusion of scalp, initial encounter; Translations: [CONTUSION SCALP INITIAL ENCOUNTER]Onset: 65-26-9378LvvdexehLitpydluxrwy (1 source)CONTACT W/AND (SUSP) EXPOS COVID-19; Translations: [CONTACT W/AND (SUSP) EXPOS COVID-19]Onset: 08-20-2022 Results Test NameValueInterpretationReference RangeFacilityOffice Visiton 04-17-2025 Follow-up [id number] Desean Landry Jr. 1940 M Date Provider Department Center 04/17/2025 DRAGAN BALDWIN CARD [facility] Family History Problem Relation Age of Onset Cancer Mother Diabetes Brother Other Brother Family Status - Relation Status Age at Mother Brother Level of Service:52866 [place] OFFICE/OUTPATIENT ESTABLISHED MOD [facility] Onlyon 51-60-8393Okkvol [id number] Desean Landry Jr. 1940 M Date Provider Department Center 02/28/2025 DREAD [facility] CARD [facility] Family History Problem Relation Age of Onset Cancer Mother Family Status - Relation Status Age at MotherNormalUniversity [facility] HospitalCBC AUTO DIFFon 14-44-2929TZEK # 0.1 103/ulNormal0.0-0.1[facility]rium Medical CenterComment on above:Performed By: #### CBC #### [facility] [address] [address] [address] Artem Choesophils/100 WBC (Bld)1.0 %Normal0.2-2.0The [facility] Comment on above:Performed By: #### CBC #### [facility] [address] [address] [address] Artem López #0.2 103/ulNormal0.0-0.7The [facility] CenterComment on above: Performed By: #### CBC #### [facility] [address] [address] [address] Artem Daveosinophils/100 WBC (Bld)2.0 %Normal0.9-7.0[facility] Comment on above:Performed By: #### CBC #### [facility] [address] [place] [address] Dr. Artem Daverythrocyte distribution width (RBC) [Ratio]13.1 %Zqjirt65.0-15.0 [facility] Medical CenterComment on above:Performed By: #### CBC #### [facility] [address] [place] [address] Dr. Artem RojasHematocrit (Bld) [Volume fraction]43.8 %Caapqb95.0-54.0The [facility] CenterComment on above:Performed By: #### CBC #### [facility] [address] [place] [address] Dr. Artem RojasHemoglobin (Bld) [Mass/Vol]14.5 g/iEXgpfct08.0-18.0The [facility] CenterComment on above:Performed By: #### CBC #### [facility] [address] [place] [address] Dr. Artem De Oliveira #0.07 10e3/ulCritically high0.00-0.03The [facility] Comment on above:Performed By: #### CBC #### [facility] [address] [place] [address] Dr. Artem De Oliveira %0.8 %Critically high0.0-0.5The [facility] CenterComment on above:Performed By: #### CBC #### [facility] [address] [place] [address] Dr. Artem MillsH #1.8 103/ulNormal1.2-3.8The [facility] CenterComment on above:Performed By: #### CBC #### [facility] [address] [place] [address] Dr. Artem Avalosmphocytes/100 WBC (Bld)20.0 %Critically low20.5-60.0The [facility] CenterComment on above:Performed By: #### CBC #### [facility] [address] [place] [address] Dr. Artem Ruelas DIFF REQNONormalThe [facility] CenterComment on above: Performed By: #### CBC #### [facility] [address] [place] [address] Dr. Artem Vega (RBC) [Entitic mass]30.0 anCdrhpb70.9-34.0The [facility] HospitalComment on above:Performed By: #### CBC #### [facility] [address] [place] [address] Dr. Artem Vega (RBC) [Mass/Vol]33.1 g/qPCpfqvl60.9-35.2The [facility] CenterComment on above:Performed By: #### CBC #### [facility] [address] [place] [address] Dr. Artem Vega (RBC) [Entitic vol]90.7 cKAbfowl43.0-94.0The [facility] CenterComment on above:Performed By: #### CBC #### [facility] [address] [place] [address] Dr. Artem Bowen #0.8 103/ulNormal0.3-0.8The [facility] CenterComment on above:Performed By: #### CBC #### [facility] [address] [place] [address] Dr. Artem Cooleyocytes/100 WBC (Bld)8.7 %Normal1.7-12.0The [facility] Comment on above:Performed By: #### CBC #### [facility] [address] [place] [address] Dr. Artem Farrell #6.1 103/ulNormal1.4-6.5The [facility] CenterComment on above:Performed By: #### CBC #### [facility] [address] [place] [address] Dr. Artem oDssutrophils/100 WBC (Bld)67.5 %Gthswj02.0-75.0The [facility] CenterComment on above:Performed By: #### CBC #### [facility] [address] [place] [address] Dr. Artem RojasPlatelet mean volume (Bld) [Entitic vol]9.7 fLNormal9.5-13.5The [facility] CenterComment on above:Performed By: #### CBC #### [facility] [address] [place] [address] Dr. Artem RojasPLT333 103/pdMgoupj195-449Htl [facility] CenterComment on above: Performed By: #### CBC #### [facility] [address] [place] [address] Dr. Artem RojasRBC4.83 106/ulNormal4.70-6.10The [facility] CenterComment on above:Performed By: #### CBC #### [facility] [address] [place] [address] Dr. Artem RojasWBC9.0 103/ulNormal4.0-11.0The [facility] CenterComment on above: Performed By: #### CBC #### [facility] [address] [place] [address] Dr. Artem RojasPROF CHEM 8 (BAS METB)on 16-21-1143Xwcjv gap [Moles/Vol]9.4 mmol/LNormalPremier Health Atrium Medical CenterComment on above:Performed By: #### PTT, PT #### [facility] [address] [place] [address] Dr. Artem RojasCalcium [Mass/Vol]9.4 mg/dLNormal8.5-10.1The [facility] Comment on above:Performed By: #### PTT, PT #### [facility] [address] [place] [address] Dr. Artem RojasChloride [Moles/Vol]105 mmol/EShsavh44-323Rwj [facility] Comment on above:Performed By: #### PTT, PT #### [facility] [address] [place] [address] Dr. Artem RojasCO2 [Moles/Vol]29.3 mmol/IOjslus16.0-32.0The [facility] Comment on above:Performed By: #### PTT, PT #### [facility] [address] [address] [address] Artem RojasCreatinine [Mass/Vol]1.06 mg/dLNormal0.70-1.30The [facility] Hospitalment on above:Performed By: #### PTT, PT #### [facility] [address] [address] [address] Artem DaveGFR-AF CYMRAES>60Normal>=60The [facility] CenterComment on above:Performed By: #### PTT, PT #### [facility] [address] [address] [address] Artem DaveGFR-NON AF CYMRAES>60Normal>=60The [facility] CenterComment on above:Performed By: #### PTT, PT #### [facility] [address] [address] [address] Artem RojasGlucose [Mass/Vol]125 mg/dLCritically uccc19-803Uaz [facility] Hospitalment on above:Performed By: #### PTT, PT #### [facility] [address] [address] [address] Artem RojasPotassium [Moles/Vol]4.3 mmol/LNormal3.5-5.1The [facility] Comment on above:Performed By: #### PTT, PT #### [facility] [address] [address] [address] Artem RojasSodium [Moles/Vol]139 mmol/GUukrtc582-584Hum [facility] Comment on above:Performed By: #### PTT, PT #### [facility] [address] [address] [address] Artem RojasUrea nitrogen [Mass/Vol]20.0 mg/dLCritically high7.0-18.0The [facility] CenterComment on above:Performed By: #### PTT, PT #### [facility] [address] [address] [address] Artem RojasUrea nitrogen/Creatinine [Mass ratio]18.9 mg/mgNormalThe [facility] CenterComment on above:Performed By: #### PTT, PT #### [facility] [address] [place] [address] Dr. Artem RojasCovid-19 PCR ([facility])on 09-49-3188PEBW-CoV-2 (COVID-19) RNA MONICA+probe Ql (Unsp spec)Not detectedNormalNOT DETECTEDThe [facility] Comment on above:Result Comment: When [...] for this test is supported by the [place] of [employer] and Human Service's declaration that [...] be used).Performed By: #### PTT, PT #### [facility] [address] [place] [address] Dr. Artem Yañez A AND B AGon 29-97-1721GAEDKADZCZXMD BELOWMedina HospitalComment on above:Result Comment: Negative for Flu A protein angiten. Infection due to Flu A cannot be ruled out. FluA angiten in the sample may be below the detection limit of the test.Performed By: #### PTT, PT #### [facility] [address] [place] [address] Dr. Artem RiveraUBNEGTIERNEY [facility] on above: Result Comment: Negative for Flu B protein antigen. Infection due to Flu B cannot be ruled out. FluB antigen in the sample may be below the detection limit of the test.Performed By: #### PTT, PT #### [facility] [address] [place] [address] Dr. Artem Damon AGNegativeNormalNEGATIVE SEE COMMENTThe [facility] CenterComment on above:Performed By: #### PTT, PT #### [facility] [address] [place] [address] Dr. Artem Alexander AGNegativeNormalNEGATIVE SEE COMMENTThe [facility] CenterComment on above:Performed By: #### PTT, PT #### [facility] [address] [place] [address] Dr. Artem RojasINSULINon 58-88-8271Ogcbgbo27.3 uIU/mLNormal2.6-24.9The [facility] CenterComment on above:Performed By: #### PTT, PT #### [facility] [address] [place] [address] Dr. Artem Erwin 21-33-9467Ahfonmeujdf peptide B (Bld) [Mass/Vol]1826.0 pg/mLCritically high<=1,800.0The [facility] CenterComment on above:Performed By: #### CMP, BNP, URIC, TSH, T7, LIPID #### [facility] [address] [place] [address] Dr. Artem Cage AUTO DIFFon 22-68-5616RQMZ #0.1 103/ulNormal0.0-0.1The [facility] CenterComment on above:Performed By: #### PTT, PT #### [facility] [address] [place] [address] Dr. Artem RojasBasophils/100 WBC (Bld)1.0 %Normal0.2-2.0The [facility] Comment on above:Performed By: #### PTT, PT #### [facility] [address] [place] [address] Dr. Artem López #0.2 103/ulNormal0.0-0.7The [facility] CenterCommclaren port [facility] on above: Performed By: #### PTT, PT #### [facility] [address] [place] [address] Dr. Artem Daveosinophils/100 WBC (Bld)2.4 %Normal0.9-7.0The [facility] Comment on above:Performed By: #### PTT, PT #### [facility] [address] [place] [address] Dr. Artem Daverythrocyte distribution width (RBC) [Ratio]13.8 %Jfsaxs24.0-15.0 The [facility] CenterComment on above:Performed By: #### PTT, PT #### [facility] [address] [place] [address] Dr. Artem RojasHematocrit (Bld) [Volume fraction]44.1 %Vuzsyz24.0-54.0The [facility] CenterComment on above:Performed By: #### PTT, PT #### [facility] [address] [place] [address] Dr. Artem RojasHemoglobin (Bld) [Mass/Vol]14.5 g/xCCyioih24.0-18.0The [facility] CenterComment on above:Performed By: #### PTT, PT #### [facility] [address] [place] [address] Dr. Artem De Oliveira #0.02 10e3/ulNormal0.00-0.03The [facility] CenterComment on above:Performed By: #### PTT, PT #### [facility] [address] [place] [address] Dr. Artem De Oliveira %0.2 %Normal0.0-0.5The [facility] CenterComment on above: Performed By: #### PTT, PT #### [facility] [address] [place] [address] Dr. Artem MillsH #2.1 103/ulNormal1.2-3.8The [facility] [facility]ria Medical CenterComment on above:Performed By: #### PTT, PT #### [facility] [address] [place] [address] Dr. Artem Avalosmphocytes/100 WBC (Bld)24.3 %Eslqpv21.5-60.0The [facility] CenterComment on above:Performed By: #### PTT, PT #### [facility] [address] [place] [address] Dr. Artem Ruelas DIFF REQNONormalThe [facility] CenterComment on above: Performed By: #### PTT, PT #### [facility] [address] [place] [address] Dr. Artem Vega (RBC) [Entitic mass]30.3 neEflxbx95.9-34.0The [facility] CenterComment on above:Performed By: #### PTT, PT #### [facility] [address] [place] [address] Dr. Artem Vega (RBC) [Mass/Vol]32.9 g/sNHaiyft38.9-35.2The [facility] CenterComment on above:Performed By: #### PTT, PT #### [facility] [address] [place] [address] Dr. Artem Vega (RBC) [Entitic vol]92.1 bAIcpkdh08.0-94.0The [facility] CenterComment on above:Performed By: #### PTT, PT #### [facility] [address] [place] [address] Dr. Artem Bowen #0.8 103/ulNormal0.3-0.8The [facility] CenterComment on above:Performed By: #### PTT, PT #### [facility] [address] [place] [address] Dr. Artem Cooleyocytes/100 WBC (Bld)9.0 %Normal1.7-12.0The [facility] Comment on above:Performed By: #### PTT, PT #### [facility] [address] [place] [address] Dr. Artem Farrell #5.6 103/ulNormal1.4-6.5The [facility] CenterComment on above:Performed By: #### PTT, PT #### [facility] [address] [place] [address] Dr. Artem Dossutrophils/100 WBC (Bld)63.1 %Eaukqv04.0-75.0The [facility] CenterComment on above:Performed By: #### PTT, PT #### [facility] [address] [place] [address] Dr. Artem Linderlet mean volume (Bld) [Entitic vol]10.0 fLNormal9.5-13.5The [facility] CenterComment on above:Performed By: #### PTT, PT #### [facility] [address] [place] [address] Dr. Artem RojasPLT193 103/oeOmwxat470-993Xxv [facility] CenterComment on above: Performed By: #### PTT, PT #### [facility] [address] [place] [address] Dr. Artem RojasRBC4.79 106/ulNormal4.70-6.10The [facility] CenterComment on above:Performed By: #### PTT, PT #### [facility] [address] [place] [address] Dr. Artem RojasWBC8.8 103/ulNormal4.0-11.0The [facility] CenterComment on above: Performed By: #### PTT, PT #### [facility] [address] [place] [address] Dr. Artem RojasFRERIK THYROXINE INDEX T7on [id number]e [facility] CenterComment on above:Performed By: #### CMP, BNP, URIC, TSH, T7, LIPID #### [facility] [address] [place] [address] Dr. Artem RojasT3U35.0 %Ntsmnc65.0-40.0The [facility] CenterComment on above: Performed By: #### CMP, BNP, URIC, TSH, T7, LIPID #### [facility] [address] [place] [address] Dr. Artem RojasT4 [Mass/Vol]7.20 ug/dLNormal4.50-12.10The [facility] on above:Performed By: #### CMP, BNP, URIC, TSH, T7, LIPID #### [facility] [address] [address] [address] Artem RojasGLYCOHEMOGLOBIN A1Con [id number] RECOMMENDATIONSEE BELOWMccullough-Hyde Memorial HospitalCommclaren port [facility] hospital on above:Result Comment: ADA RECOMMENDED LIMIT 4.0 - 6.0 ADA THERAPEUTIC TARGET < 7.0 ACTION SUGGESTED > 7.0Performed By: #### A1C #### [facility] [address] [address] [address] Artem RojasGlucose [Mass/Vol]128 mg/dLNoHighland District HospitalCommclaren port huron hospital on above:Performed By: #### A1C #### [facility] [address] [place] [address] Dr. Artem RojasHbA1c (Bld) [Mass fraction]6.1 %Normal4.5-6.2[facility] CenterCommclaren [facility] hospital on above:Performed By: #### A1C #### [facility] [address] [place] [address] Dr. Artem RojasLIPID PROFILEon [id number] RATIO NORMSEE [facility]Commclaren [facility] on above:Result Comment: 3.3 - 4.4 LOW RISK 4.4 - 7.1 AVERAGE RISK 7.1 - 11.0 MODERATE RISK >11.0 HIGH RISKPerformed By: #### CMP, BNP, URIC, TSH, T7, LIPID #### [facility] [address] [place] [address] Dr. Artem RojasCholesterol [Mass/Vol]157 mg/dLNormal<=200The [facility] Comment on above:Performed By: #### CMP, BNP, URIC, TSH, T7, LIPID #### [facility] [address] [place] [address] Dr. Artem RojasCholesterol in HDL [Mass/Vol]51 mg/bGLwjnte57-67Dhg [facility] on above:Performed By: #### CMP, BNP, URIC, TSH, T7, LIPID #### [facility] [address] [place] [address] Dr. Artem RojasCholesterol in LDL [Mass/Vol]86.6 mg/dLNormalThe [facility] Bay HospitalComment on above:Performed By: #### CMP, BNP, URIC, TSH, T7, LIPID #### [facility] [address] [place] [address] Dr. Artem RojasCholestercarmen.total/Cholesterol in HDL [Mass ratio]3.1 {ratio} NormalThe [facility] CenterComment on above:Performed By: #### CMP, BNP, URIC, TSH, T7, LIPID #### [facility] [address] [place] [address] Dr. Artem Stacy NORMAL> or = 60 mg/dl - LOW CARDIOVASCULAR RISK <40 mg/dl - HIGH CARDIOVASCULAR RISKMedina HospitalComment on above:Performed By: #### CMP, BNP, URIC, TSH, T7, LIPID #### [facility] [address] [place] [address] Dr. Artem Mensah CALC NORMALSEE BELOWMedina HospitalComment on above:Result Comment: <100 mg/dl OPTIMAL 100 - 129 mg/dl NEAR OR ABOVE OPTIMAL 130 - 159 mg/dl BORDERLINE HIGH 160 - 189 mg/dl HIGH >190 mg/dl VERY HIGH Performed By: #### CMP, BNP, URIC, TSH, T7, LIPID #### [facility] [address] [place] [address] Dr. Artem RojasTriglyceride [Mass/Vol]97 mg/dLNormal<=150The [facility] Comment on above:Performed By: #### CMP, BNP, URIC, TSH, T7, LIPID #### [facility] [address] [place] [address] Dr. Artem BhattiLDL CALC19.4 mg/dLNoHighland District HospitalComment on above: Performed By: #### CMP, BNP, URIC, TSH, T7, LIPID #### [facility] [address] [place] [address] Dr. Artem Oseguera 14(COMP METB)on [id number] [Mass/Vol]3.5 g/dLNormal 3.4-5.0The [facility] CenterComment on above:Performed By: #### CMP, BNP, URIC, TSH, T7, LIPID #### [facility] [address] [place] [address] Dr. Artem RojasAlbumin/Globulin [Mass ratio]1.1 {ratio}NormalThe [facility] on above:Performed By: #### CMP, BNP, URIC, TSH, T7, LIPID #### [facility] [address] [place] [address] Dr. Artem Hernandez [Catalytic activity/Vol]70 U/WNsdfrp92-727Rjd [facility] CenterCommclaren port [facility] hospital on above:Performed By: #### CMP, BNP, URIC, TSH, T7, LIPID #### [facility] [address] [place] [address] Dr. Artem Coulter [Catalytic activity/Vol]19 U/ZGyyhdp59-88Nlw [facility] Hospitalment on above:Performed By: #### CMP, BNP, URIC, TSH, T7, LIPID #### [facility] [address] [place] [address] Dr. Artem Diallo gap [Moles/Vol]11.7 mmol/LNormalThe [facility] Comment on above:Performed By: #### CMP, BNP, URIC, TSH, T7, LIPID #### [facility] [address] [place] [address] Dr. Artem Aponte [Catalytic activity/Vol]18 U/PXeaxdc02-38Cfm [facility] Hospitalment on above:Performed By: #### CMP, BNP, URIC, TSH, T7, LIPID #### [facility] [address] [place] [address] Dr. Artem RojasBilirubin [Mass/Vol]0.5 mg/dLNormal0.2-1.0The [facility] Comment on above:Performed By: #### CMP, BNP, URIC, TSH, T7, LIPID #### [facility] [address] [place] [address] Dr. Artem RojasCalcium [Mass/Vol]9.3 mg/dLNormal8.5-10.1[facility] Comment on above:Performed By: #### CMP, BNP, URIC, TSH, T7, LIPID #### [facility] [address] [address] [address] Artem RojasChloride [Moles/Vol]105 mmol/ZUesqno79-959Vgo [facility] Comment on above:Performed By: #### CMP, BNP, URIC, TSH, T7, LIPID #### [facility] [address] [place] [address] Dr. Artem RojasCO2 [Moles/Vol]29.7 mmol/ETudqhu31.0-32.0The [facility] Comment on above:Performed By: #### CMP, BNP, URIC, TSH, T7, LIPID #### [facility] [address] [place] [address] Dr. Artem RojasCreatinine [Mass/Vol]0.87 mg/dLNormal0.70-1.30The [facility] CenterComment on above:Performed By: #### CMP, BNP, URIC, TSH, T7, LIPID #### [facility] [address] [place] [address] Dr. Artem DaveGFR-AF CYMRAES>60Normal>=60The [facility] CenterComment on above:Performed By: #### CMP, BNP, URIC, TSH, T7, LIPID #### [facility] [address] [place] [address] Dr. Artem DaveGFR-NON AF CYMRAES>60Normal>=60The [facility] CenterComment on above:Performed By: #### CMP, BNP, URIC, TSH, T7, LIPID #### [facility] [address] [place] [address] Dr. Artem RojasGlobulin (S) [Mass/Vol]3.3 g/dLNormalThe [facility] CenterComment on above:Performed By: #### CMP, BNP, URIC, TSH, T7, LIPID #### [facility] [address] [place] [address] Dr. Artem RojasGlucose [Mass/Vol]118 mg/dLCritically mqpq22-674Rvo [facility] CenterComment on above:Performed By: #### CMP, BNP, URIC, TSH, T7, LIPID #### [facility] [address] [place] [address] Dr. Artem RojasPotassium [Moles/Vol]4.4 mmol/LNormal3.5-5.1The [facility] Comment on above:Performed By: #### CMP, BNP, URIC, TSH, T7, LIPID #### [facility] [address] [place] [address] Dr. Artem RojasProtein [Mass/Vol]6.8 g/dLNormal6.4-8.2The [facility] Comment on above:Performed By: #### CMP, BNP, URIC, TSH, T7, LIPID #### [facility] [address] [place] [address] Dr. Artem RojasSodium [Moles/Vol]142 mmol/OGxszfp399-942Zjy [facility] Comment on above:Performed By: #### CMP, BNP, URIC, TSH, T7, LIPID #### [facility] [address] [place] [address] Dr. Artem RojasUrea nitrogen [Mass/Vol]19.0 mg/dLCritically high7.0-18.0The [facility] CenterComment on above:Performed By: #### CMP, BNP, URIC, TSH, T7, LIPID #### [facility] [address] [place] [address] Dr. Artem Church nitrogen/Creatinine [Mass ratio]21.8 mg/mgNormalThe [facility] CenterComment on above:Performed By: #### CMP, BNP, URIC, TSH, T7, LIPID #### [facility] [address] [place] [address] Dr. Artem Adams [id number] uIU/mLNormal0.358-3.740[facility] Medical CenterComment on above:Performed By: #### CMP, BNP, URIC, TSH, T7, LIPID #### [facility] [address] [place] [address] Dr. Artem RojasURIC ACID SERUMon [id number] [Mass/Vol]5.8 mg/dLNormal 3.5-7.2The [facility] CenterComment on above:Performed By: #### CMP, BNP, URIC, TSH, T7, LIPID #### [facility] [address] [place] [address] Dr. Artem RojasVITAMIN D 25 OHon [id number] D 25-OH65.5 ng/mLNormalPremier Health Atrium Medical CenterComment on above:Performed By: #### PTT, PT #### [facility] [address] [place] [address] Dr. Artem Bailey D RANGESSEE BELOWMedina HospitalComment on above: Result Comment: <20 ng/mL Vit D deficient 20 - <30 ng/mL Vit D insufficient 30 - 100 ng/mL Vit D sufficient >100 ng/mL Potential ToxicityPerformed By: #### PTT, PT #### [facility] [address] [place] [address] Dr. Artem oRsarioC AUTO DIFFon [id number] #0.1 103/ulNormal0.0-0.1The [facility] CenterComment on above:Performed By: #### PTT, PT #### [facility] [address] [place] [address] Dr. Artem RojasBasophils/100 WBC (Bld)0.5 %Normal0.2-2.0[facility] Comment on above:Performed By: #### PTT, PT #### [facility] [address] [place] [address] Dr. Artem López #0.0 103/ulNormal0.0-0.7The [facility] CenterComment on above: Performed By: #### PTT, PT #### [facility] [address] [place] [address] Dr. Artem Daveosinophils/100 WBC (Bld)0.1 %Critically low0.9-7.0The [facility] CenterComment on above:Performed By: #### PTT, PT #### [facility] [address] [place] [address] Dr. Artem Daverythrocyte distribution width (RBC) [Ratio]12.9 %Zqqmyw43.0-15.0 The [facility] CenterComment on above:Performed By: #### PTT, PT #### [facility] [address] [place] [address] Dr. Artem RojasHematocrit (Bld) [Volume fraction]39.7 %Critically low42.0-54.0 The [facility] CenterComment on above:Performed By: #### PTT, PT #### [facility] [address] [place] [address] Dr. Artem RojasHemoglobin (Bld) [Mass/Vol]13.1 g/dLCritically low14.0-18.0[facility] CenterComment on above:Performed By: #### PTT, PT #### [facility] [address] [place] [address] Dr. Artem De Oliveira #0.05 10e3/ulCritically high0.00-0.03The [facility] Comment on above:Performed By: #### PTT, PT #### [facility] [address] [place] [address] Dr. Artem De Oliveira %0.4 %Normal0.0-0.5The [facility] CenterComment on above: Performed By: #### PTT, PT #### [facility] [address] [place] [address] Dr. Artem Peters #0.8 103/ulCritically low1.2-3.8The [facility] Comment on above:Performed By: #### PTT, PT #### [facility] [address] [place] [address] Dr. Artem Millshocytes/100 WBC (Bld)5.7 %Critically low20.5-60.0[facility] CenterComment on above:Performed By: #### PTT, PT #### [facility] [address] [place] [address] Dr. Artem WolfUAL DIFF REQNONormalThe [facility] CenterComment on above: Performed By: #### PTT, PT #### [facility] [address] [place] [address] Dr. Artem Perrin (RBC) [Entitic mass]31.5 kgHzpyvj03.9-34.0The [facility] CenterComment on above:Performed By: #### PTT, PT #### [facility] [address] [place] [address] Dr. Artem Vega (RBC) [Mass/Vol]33.0 g/kNYquase89.9-35.2The [facility] CenterComment on above:Performed By: #### PTT, PT #### [facility] [address] [place] [address] Dr. Artem Vega (RBC) [Entitic vol]95.4 fLCritically high80.0-94.0The [facility] CenterComment on above:Performed By: #### PTT, PT #### [facility] [address] [place] [address] Dr. Artem Bowen #1.0 103/ulCritically high0.3-0.8The [facility] Comment on above:Performed By: #### PTT, PT #### [facility] [address] [place] [address] Dr. Artem Cooleyocytes/100 WBC (Bld)7.4 %Normal1.7-12.0[facility] Comment on above:Performed By: #### PTT, PT #### [facility] [address] [place] [address] Dr. Artem Farrell #11.4 103/ulCritically high1.4-6.5The [facility] Comment on above:Performed By: #### PTT, PT #### [facility] [address] [place] [address] Dr. Artem Dossutrophils/100 WBC (Bld)85.9 %Critically high43.0-75.0The [facility] CenterComment on above:Performed By: #### PTT, PT #### [facility] [address] [place] [address] Dr. Artem Linderlet mean volume (Bld) [Entitic vol]10.8 fLNormal9.5-13.5The [facility] HospitalComment on above:Performed By: #### PTT, PT #### [facility] [address] [address] [address] Artem RojasPLT164 103/nsSbuqwu391-165Pnm [facility] CenterComment on above: Performed By: #### PTT, PT #### [facility] [address] [place], [place] [address] Dr. Artem RojasRBC4.16 106/ulCritically low4.70-6.10The [facility] CenterComment on above:Performed By: #### PTT, PT #### [facility] [address] [place], [place] [address] Dr. Artem RojasWBC13.2 103/ulCritically high4.0-11.0The [facility] CenterComment on above:Performed By: #### PTT, PT #### [facility] [address] [place] [address] Dr. Artem RojasCT CSPINE WO CONon [id number] [facility] [place] WO CONEXAMINATION: CT CSPINE WO CON HISTORY: [...] Electronically authenticated by: WILLIAM ARIAS Date: 2022-03-02 17:51NoHighland District HospitalCT HEAD WO CONon [id number] HEAD WO CONCLINICAL HISTORY: UNSPECIFIED INJURY OF [...] Electronically authenticated by: NISSA VIGIL Date: 2022-03-02 17:40Medina HospitalCovid-19 PCR (CVDTBH)on [id number]-CoV-2 (COVID-19) RNA MONICA+probe Ql (Unsp spec)Not detectedNormalNOT DETECTEDThe [facility] Comment on above:Result Comment: When [...] for this test is supported by the [place] [employer] of [employer] and Human Service's declaration that [...] be used).Performed By: #### PTT, PT #### [facility] [address] [place] [address] Dr. Artem RojasGASTROCCULTon [id number]djdDRPSCIZSZkr [facility] CenterComment on above:Performed By: #### PTT, PT #### [facility] [address] [place] [address] Dr. Artem RojasPH GKGDTYW3GzfdqtYwj [facility] CenterComment on above:Performed By: #### PTT, PT #### [facility] [address] [place] [address] Dr. Artem RojasPROF 14(COMP METB)on [id number] [Mass/Vol]3.6 g/dLNormal 3.4-5.0The [facility] CenterComment on above:Performed By: #### PTT, PT #### [facility] [address] [place] [address] Dr. Artem RojasAlbumin/Globulin [Mass ratio]1.3 {ratio}NormalThe [facility] on above:Performed By: #### PTT, PT #### [facility] [address] [place] [address] Dr. Artem RojasALP [Catalytic activity/Vol]65 U/TYqaash18-106Eim [facility] Hospitalment on above:Performed By: #### PTT, PT #### [facility] [address] [place] [address] Dr. Artem RhoadesT [Catalytic activity/Vol]12 U/LCritically bot64-65Cnr [facility] CenterComment on above:Performed By: #### PTT, PT #### [facility] [address] [place] [address] Dr. Artem RojasAnion gap [Moles/Vol]12.8 mmol/LNormalPrem[facility] Comment on above:Performed By: #### PTT, PT #### [facility] [address] [place] [address] Dr. Artem RojasAST [Catalytic activity/Vol]15 U/IJilalg95-33Ptd [facility] CenterComment on above:Performed By: #### PTT, PT #### [facility] [address] [place] [address] Dr. Artem RojasBilirubin [Mass/Vol]1.1 mg/dLCritically high0.2-1.0The [facility] CenterComment on above:Performed By: #### PTT, PT #### [facility] [address] [place] [address] Dr. Artem RojasCalcium [Mass/Vol]9.0 mg/dLNormal8.5-10.1[facility] Comment on above:Performed By: #### PTT, PT #### [facility] [address] [place] [address] Dr. Artem RojasChloride [Moles/Vol]104 mmol/OVzgczl67-828NvaPremier Health [facility] Center Comment on above:Performed By: #### PTT, PT #### [facility] [address] [place] [address] Dr. Artem RojasCO2 [Moles/Vol]25.8 mmol/CNebvgl47.0-32.0[facility] Comment on above:Performed By: #### PTT, PT #### [facility] [address] [place] [address] Dr. Artem RojasCreatinine [Mass/Vol]1.06 mg/dLNormal0.70-1.30The [facility] CenterComment on above:Performed By: #### PTT, PT #### [facility] [address] [address] [address] Artem DaveGFR-AF CYMRAES>60Normal>=60The [facility] CenterComment on above:Performed By: #### PTT, PT #### [facility] [address] [address] [address] Artem DaveGFR-NON AF CYMRAES>60Normal>=60The [facility] CenterComment on above:Performed By: #### PTT, PT #### [facility] [address] [address] [address] Artem RojasGlobulin (S) [Mass/Vol]2.8 g/dLNormalThe [facility] CenterComment on above:Performed By: #### PTT, PT #### [facility] [address] [place] [address] Dr. Artem RojasGlucose [Mass/Vol]104 mg/cFJqzwlh43-887Ngd [facility] Comment on above:Performed By: #### PTT, PT #### [facility] [address] [place] [address] Dr. Artem RojasPotassium [Moles/Vol]4.6 mmol/LNormal3.5-5.1The [facility] Comment on above:Performed By: #### PTT, PT #### [facility] [address] [place] [address] Dr. Artem RojasProtein [Mass/Vol]6.4 g/dLNormal6.4-8.2The [facility] Comment on above:Performed By: #### PTT, PT #### [facility] [address] [place] [address] Dr. Artem RojasSodium [Moles/Vol]138 mmol/VUlurlq619-471Obc [facility] Comment on above:Performed By: #### PTT, PT #### [facility] [address] [place] [address] Dr. Artem RojasUrea nitrogen [Mass/Vol]13.0 mg/dLNormal7.0-18.0The [facility] CenterComment on above:Performed By: #### PTT, PT #### [facility] [address] [address] [address] Artem Church nitrogen/Creatinine [Mass ratio]12.3 mg/mgNoHighland District HospitalComment on above:Performed By: #### PTT, PT #### [facility] [address] [place] [address] Dr. Artem ByrdIMErivera 21-58-1737VMA Coag (PPP) [Relative time]1.23 {INR} NormalThe [facility] CenterComment on above:Performed By: #### PTT, PT #### [facility] [address] [place] [address] Dr. Artem Brito GUIDELINESSEE Access Hospital DaytonComment on above:Result Comment: DESIRED INR: 2.0 - 3.0 CONDITIONS NOT LISTED BELOW 2.5 - 3.5 FOR PROSTHETIC HEART VALVE REPLACEMENT 2.5 - 3.5 RECURRENT THROMBOSIS Performed By: #### PTT, PT #### [facility] [address] [place] [address] Dr. Artem RojasPT Coag (PPP) [Time]13.1 sCritically high9.0-11.6The [facility] CenterComment on above:Performed By: #### PTT, PT #### [facility] [address] [place] [address] Dr. Artem Valdivia 98-16-8355eQEP Coag (Bld) [Time]28.5 wIsanld95.3-36.2Prem[facility] Atrium Medical CenterComment on above:Performed By: #### PTT, PT #### [facility] [address] [place] [address] Dr. Artem RojasXR KNEE RT 1_2 Von 10-63-2183QL KNEE RT 1_2 VXR KNEE RT 1_2 [...] Electronically authenticated by: MATTHEW CHADWICK Date: 2022-03-02 20:49NoHighland District HospitalOVA AND PARASITE EXAMINATIONon 78-70-4065Drt + Parasite Exam Final reportSelect Medical Cleveland Clinic [facility] on above:Result Comment: These results were obtained using wet preparation(s) and trichrome stained smear. This test does not include testing for Cryptosporidium parvum, Cyclospora, or Microsporidia.Performed By: #### PTT, PT #### [facility] [address] [place] [address] Dr. Artem Montero 1CommentNoHighland District HospitalCommclaren port huron hospital on above:Result Comment: No ova, cysts, or parasites seen. . One negative specimen does not rule out the possibility of a parasitic infection.Performed By: #### PTT, PT #### [facility] [address] [place] [address] Dr. Artem Bhatt PANEL (PCR)on 81-05-7909Pjsphrraty F 40/41Not detectedNormal NOT DETECTEDThe [facility] CenterComment on above:Performed By: #### PTT, PT #### [facility] [address] [place] [address] Dr. Artem RojasAstrovirusNot detectedNormalNOT DETECTEDThe [facility] Comment on above:Performed By: #### PTT, PT #### [facility] [address] [place] [address] Dr. Artem Patel. Diff toxin A/BNot detectedNormalNOT DETECTEDThe [facility] CenterComment on above:Performed By: #### PTT, PT #### [facility] [address] [place] [address] Dr. Artem BernsteinpylobacterNot detectedNormalNOT DETECTEDThe [facility] Comment on above:Performed By: #### PTT, PT #### [facility] [address] [place] [address] Dr. Artem LopezyptosporidiumNot detectedNormalNOT DETECTEDThe [facility] CenterComment on above:Performed By: #### PTT, PT #### [facility] [address] [address] [address] Artem Rose. CayetanensisNot detectedNormalNOT DETECTEDThe [facility] CenterComment on above:Performed By: #### PTT, PT #### [facility] [address] [place] [address] Dr. Artem Cabrera Coli T608Bme ApplicableNormalNot ApplicableThe [facility] CenterComment on above:Performed By: #### PTT, PT #### [facility] [address] [address] [address] Artem Cabrera histolyticaNot detectedNormalNOT DETECTEDThe [facility] Comment on above:Performed By: #### PTT, PT #### [facility] [address] [place] [address] Dr. Artem DaveAECNot detectedNormalNOT DETECTEDThe [facility] CenterComment on above:Performed By: #### PTT, PT #### [facility] [address] [place] [address] Dr. Artem DaveIECNot detectedNormalNOT DETECTEDThe [facility] CenterCommclaren port huron hospital on above:Performed By: #### PTT, PT #### [facility] [address] [place] [address] Dr. Artem DavePECNot detectedNormalNOT DETECTEDThe [facility] CenterCommclaren port huron hospital on above:Performed By: #### PTT, PT #### [facility] [address] [place] [address] Dr. Artem DaveTECNot detectedNormalNOT DETECTEDThe [facility] CenterComment on above:Performed By: #### PTT, PT #### [facility] [address] [place] [address] Dr. Artem Gandhi. LambliaNot detectedNormalNOT DETECTEDThe [facility] Comment on above:Performed By: #### PTT, PT #### [facility] [address] [place] [address] Dr. Artem Lea CONTROLSPASSOhioHealth Marion General HospitalComment on above:Performed By: #### PTT, PT #### [facility] [address] [address] [address] Artem WEBER HEADERGI [facility] Comment on above:Performed By: #### PTT, PT #### [facility] [address] [address] [address] Artem Carmona ECOLIGI PANEL DIARRHEAGENIC E.COLI / SHIGELLAMedina HospitalComment on above:Performed By: #### PTT, PT #### [facility] [address] [address] [address] Artem Carmona INFOSEKeenan Private HospitalComment on above: Result Comment: EAEC- Enteroaggregative E. Coli EPEC- Enteropathogenic E. Coli ETEC- Enterotoxigenic E. Coli lt/st STEC- Shigella-like toxin-producing E. Coli stx1/stx2 EIEC- Shigella/Enteroinvasive E. ColiPerformed By: #### PTT, PT #### [facility] [address] [address] [address] Artem Carmona PARASITESGI PANEL PARASITESMedina Hospital Comment on above:Performed By: #### PTT, PT #### [facility] [address] [address] [address] Artem Carmona VIRUSGI PANEL VIRUSESMedina HospitalComment on above:Performed By: #### PTT, PT #### [facility] [address] [address] [address] Artem Mccurdyvirus GI/GIINot detectedNormalNOT DETECTEDThe [facility] CenterCommclaren port huron hospital on above:Performed By: #### PTT, PT #### [facility] [address] [address] [address] Artem Middleton ShigelloidesNot detectedNormalNOT DETECTEDThe [facility] CenterComment on above:Performed By: #### PTT, PT #### [facility] [address] [address] [address] Artem RojasRotavirus ANot detectedNormalNOT DETECTEDThe [facility] Comment on above:Performed By: #### PTT, PT #### [facility] [address] [address] [address] Artem RojasSalmonellaNot detectedNormalNOT DETECTEDThe [facility] Comment on above:Performed By: #### PTT, PT #### [facility] [address] [address] [address] Artem RojasSapovirusNot detectedNormalNOT DETECTEDThe [facility] Comment on above:Performed By: #### PTT, PT #### [facility] [address] [address] [address] Artem RojasSTECNot detectedNormalNOT DETECTEDThe [facility] CenterComment on above:Performed By: #### PTT, PT #### [facility] [address] [address] [address] Artem EllisonbrioNot detectedNormalNOT DETECTEDThe [facility] CenterComment on above:Performed By: #### PTT, PT #### [facility] [address] [address] [address] Artem Espinalio CholeraNot detectedNormalNOT DETECTEDPremier Health Atrium Medical Center Comment on above:Performed By: #### PTT, PT #### [facility] [address] [place] [address] Dr. Artem Alexander. EnterocoliticaNot detectedNormalNOT DETECTEDThe [facility] CenterComment on above:Performed By: #### PTT, PT #### [facility] [address] [address] [address] Artem Bardalessultation Noteon 16-01-8279Wpkxayrlkwfe Note [id number]#1.00CD:[address] [place], [place] [address]RAD - MISCon 34-19-7832ROI - MISC [id number]#1.00CD:[address] [place], [place] [address]Glucose Poct Glucometerson 42-67-8267Wnozzla [Mass/Vol]108 mg/dLNormal Comment on above:Result Comment: Random Glucose Reference Range is dependent on time and content of last meal. Glucose of more than 200 mg/dL in a nonstressed, ambulatory subject supports the diagnosis of Diabetes Mellitus. PERFORMED BY: [facility] [place] [address] PATHOLOGIST PSYCHIATRIC SOCIAL WORKER SARY APARICIO M.D.Performed By: #### GLULS #### Point of Care testing ,[place] 01-10-2021 Specimen: [id number] Received: 01/10/21 Status: WILFREDO Mckeon Num: [id number] Spec Type: Surgical Subm Dr: Shane Snell MD Tissues: A Colon - Polyp (CECUM) B Colon - Polyp (SIGMOID) Procedures: HE Stain/4, Gross/Micro L4/2 Patient Age/Sex Location Account Attending Physician Desean Landry JR 80/M [id number] Shane Snlel MD SPEC NUM: [id number] RECD: 01/10/21 STATUS: WILFREDO MCKEON NUM: [id number] MICAH: 01/10/21 DR: Shane Snell MD ENTERED: 01/10/[address] [facility] DR: SATHISH TYPE: Surgical DEPT: S ORDERED: [...] findings support the above pathologic diagnosis. Specimen: [id number] Received: 01/10/21 Status: WILFREDO Mckeon Num: [id number] Spec Type: Surgical Subm Dr: Shane Snell MD Tissues: A Colon - Polyp (CECUM) B Colon - Polyp (SIGMOID) Procedures: HE Stain/4, Gross/Micro L4/2 Patient: Desean Landry JR [id number] (Continued) Specimen: [id number] Received: 01/10/21 (Continued) Signed (signature on file) Randi Ji MD 01/11/21 1809 Specimen: [id number] Received: 01/10/21 Status: WILFREDO Mckeon Num: [id number] Spec Type: Surgical Subm Dr: Shane Snell MD Tissues: A Colon - Polyp (CECUM) B Colon - Polyp (SIGMOID) Procedures: HE Stain/4, Gross/Micro L4/2 Patient: Desean Landry JR [id number] (Continued) Specimen: [id number] Received: 01/10/21 (Continued) CPT Codes 19629?2 Specimen: [id number] Received: 01/10/21 Status: WILFREDO Mckeon Num: [id number] Spec Type: Surgical Subm Dr: Shane Snell MD Tissues: A Colon - Polyp (CECUM) B Colon - Polyp (SIGMOID) Procedures: HE Stain/4, Gross/Micro L4/2 Patient: Desean Landry [id number] (Continued) Signed (signature on file) Randi Ji MD 01/11/21 1809 [facility] HospitalCNCOon 10-58-0338CMOTPxhwoj TextOctcumberland county hospital 2017[address] [place], [place] [address]OVIS: Desean LandryJOEL NO.: [id number] OF SERVICE: 04/06/2018Dept. of Pulmonary and Critical Care MedicineDear Mr. Landry,Attached please find a copy of your CAT scan chest report from March.Please contact me if I can contribute further in your health care management.Best regards.Yours sincerely,Cesar Rowley M.D., F.C.C.P.HC:EnclosureNoMercy Health Allen HospitalCT CHEST WO IVCONon [id number] CHEST WO IVCON* * *Final Report* * *DATE OF EXAM: Apr 06 2018 12:50PM [facility] 0541 - CT CHEST WO IVCON [...] any questions regarding this interpretation, please call [phone].If you are unable to reach us at the number above,please feel free to contact [facility] eRadiology at [phone] Metrohealth SystemPROGRESSon 10-00-1839Dfdvwtn mass concHNO ID: [id number]: Venita Lr: (none)Author Type: (none)Type: Progress NotesFiled: 04/06/2018 12:57 PMNote Text: Radiology Service Progress NotePATIENT NAME: Desean LandryMRN: [id number] OF SERVICE: April 06, 2018TIME: 12:28 PMPATIENT IDENTITY VERIFICATION COMPLETED USING TWO (2) METHODS: Patientconfirmed name verbally and ID band matches..PATIENT GENDER DATA: MalePATIENT RELEVANT IMPLANT DATA REVIEWED: Not ApplicableRADIOLOGY DEPARTMENT: CT; Exam(s) Completed: ChestPERIPHERAL IV DATA: Not applicableSIGNED BY: Venita Lee 2017 12:28 PMNormalTriHealthOVon 27-18-4425HYVXPcfdbw Visit (PULMMN) --------FRANTZDESEAN ([id number]) 1940 MDate Time Provider Department09/10/17 9:55 AM CESAR ROWLEY During your visit today, we recorded the following information about you: Temperature Pulse Respiration Blood pressure 97.7 degrees 75/minute 18/minute 125/68 Weight Height 90.3 kg 1.753 Ritika Rowley MD 09/10/2017 12:26 PM SignedPULMONARY CLINICPATIENT NAME: Desean LandryMRN: [id number] CARE PHYSICIAN: Diogenes Casiano, MDCommunication will be [...] Ht 5' 9ANDquot; (1.75m) Wt 199 lb(90.3kg) DwF807% BMI 29.37 kg/(m2).GENERAL: No distressSKIN: . No rashes or lesions.OROPHARYNX: Oropharynx normal. No erythema. No thrush.LYMPH: No neck adenopathyLUNGS: Lungs clear to auscultation bilateral. No wheezing. No ronchi. No ralesCARDIAC: normal S1 and Z9IXLNCTS: Abdomen soft.EXTREMETIES: No deformities. No LE edema. [...] [J98.11] Pleural calcification [J94.8]Order(s):CT CHEST WO IVCON [[id number]] Order #: [id number] FUTUREProblem List As Of Date: 09/10/2017(None)Disposition: Return in about 6 months (around 03/13/2018).Follow-up and Disposition History RecordedEncounter Number: [id number] Status:Closed by CESAR ROWLEY MD on 09/10/17[facility] HospitalCT CHEST WO IVCONon 72-04-7257GX CHEST WO IVCON* * *Final Report* * *DATE OF EXAM: Sep 10 2017 9:05AM [facility] [place] CHEST WO IVCON / [...] 6 mm. Three-month imaging follow-up suggested for reevaluation.Javascript Ui Developer: AMILCAR Transcribe Date/Time: Sep 10 2017 9:58ADictated by : CHRISTY MULTANI MDThis examination was interpreted and the report reviewed and electronically signed by: CHRISTY MULTANI MD on Sep 10 2017 2:48PM [id number] Clinic ClevelandPROGRESSon 66-10-1751Liyadbv mass concHNO ID: [id number]: Cesar Claudiae: (none)Author Type: PhysicianType: Progress NotesFiled: 09/10/2017 12:26 PMNote Text:PULMONARY CLINICPATIENT NAME: Desean LandryMRN: [id number] CARE PHYSICIAN: Diogenes Casiano [facility] – TULSAommunication will be sent via US mail or [...] wheezing. No ronchi. NoralesCARDIAC: normal S1 and E3UVSVLOQ: Abdomen soft.EXTREMETIES: No deformities. No LE edema. [...] Critical Care MedicineDATE: September 10, 2017TIME: 9:30 [facility] HospitalProtein mass concHNO ID: [id number]: Srinath Purcell (Ct) CTService: RadiologyAuthor Type: Clinical TechnicianType: Progress NotesFiled: 09/10/2017 9:03 AMNote Text: Radiology Service Progress NotePATIENT NAME: Desean LandryMRN: [id number] OF SERVICE: September 10, 2017TIME: 9:03 AMPATIENT IDENTITY VERIFICATION COMPLETED USING TWO (2) METHODS: Patientconfirmed name verbally and ID band matches..PATIENT GENDER DA TA: MalePATIENT RELEVANT IMPLANT DATA REVIEWED: YesRADIOLOGY DEPARTMENT: CT; Exam(s) Completed: ChestPERIPHERAL IV DATA: Not applicableSIGNED BY: MANINDER LinWilson Health 2017 9:03 [facility] HospitalHISTORY PHYSICALon [id number] PHYSICALHNO ID: [id number]: Cesar RowleySertimae: (none)Author Type: PhysicianType: HANDPFiled: 07/23/2017 5:35 PMNote Text:PULMONARY CONSULTPATIENT NAME: Desean LandryMRN: [id number] FOR CONSULT: Pleural effusionREQUESTING PHYSICIAN: REJI HealyRICLAY COUNTY H[facility] CARE PHYSICIAN: Diogenes Casiano, [facility] – TULSAommunication will be sent via US mail or shared electronic medicalrecordsHISTORY OF PRESENT ILLNESS: Mr. 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 Unable to make his own medical decision.He lives by himself but currently admitted at a SNF. He has a legalguardian Blanca Sofia phone # [phone].In June he was found on the floor [...] pursue further evaluation at [facility] been [facility] [...] Care MedicineDATE: July 23, 2017TIME: 12:12 PMNormal The [facility]health SystemPROGRESSon 91-57-2901Velwlfc mass concHNO ID: [id number]: Colleen Ceballos RtService: (none)Author Type: (none)Type: Progress NotesFiled: 07/23/2017 11:16 AMNote Text: Radiology Service Progress NotePATIENT NAME: Desean LandryMRN:[id number] OF SERVICE: July 23, 2017TIME: 11:16 AMPATIENT IDENTITY VERIFICATION COMPLETED USING TWO (2) METHODS: Patientconfirmed name verbally and Date of .PATIENT GENDER DATA: MalePATIENT RELEVANT IMPLANT DATA REVIEWED: Not ApplicableRADIOLOGY DEPARTMENT: General X-ray: Exam(s) Completed: Chest X-RayPERIPHERAL IV DATA: Not applicableSIGNED BY: Colleen Ceballos RtFebruary 2017 11:16 AMNormal The [facility]health SystemXR CHEST 2V FRONTAL/LATon 34-06-1341FZ CHEST 2V FRONTAL/LAT* * *Final Report* * [...] ARMENTA MD on Jul 23 2017 3:24PM [id number] Clinic ClevelandHOSPon 53-26-3213HRPDWkahjny:Desean LandryMRN: Height:No patient height recorded for this [...] Signed Radiology Service ProgressNotePATIENT NAME: Desean LandryMRN: [id number] OF SERVICE: July 23, 2017TIME: 11:16 AMPATIENT IDENTITY VERIFICATION COMPLETED USING TWO (2) METHODS: Patientconfirmed name verbally and Date of .PATIENT GENDER DATA: MalePATIENT RELEVANT IMPLANT DATA REVIEWED: Not ApplicableRADIOLOGY DEPARTMENT: General X-ray: Exam(s) Completed: Chest X-RayPERIPHERAL IV DATA: Not applicableSIGNED BY: Colleen Ceballos RtFebruary 2017 11:16 AMProgress Notes (HOSP [facility] PULM LAB H23):Latoya Mohamud, RN, RN 07/22/2017 10:35 AM Signed07/22/2017: Navigator contacted [facility] ([phone] toobtain recent labs. Metal Reed Tuner will fax labs and medication list. Craig also have a copies of this sent with him to his appointments.Normal The Metrohealth SystemCNPNon 31-68-5144BVELDxpjikyli (PULMMN) --------DESEAN LANDRY ([id number]) 1940 MDate Time Provider Department07/16/17 CESAR ROWLEY During your visit today, we recorded the following information about you:Kristie Vallejo 07/16/2017 2:35 PM Signedcxr report to [facility] TUTOR.Italo Mora CNP 07/17/2017 12:47 PM SignedCXR 07/13/2017StableAllergies As of Date: 07/16/2017(No Known Allergies)Date Reviewed: 07/14/2017Reviewed by: Kim Walker (Fel) - Yesenia AssessedReason for Visit: Received Outside Medical Records [2889]Problem List As Of Date: 07/16/2017(None) Status:Closed by KRISTIE ANDRADE on 07/16/17Normal [facility] METABOLIC PANELon 97-27-0773Wfxkabv2.5 mg/dLLow 8.6-10.3The [facility] Cleveland WestComment on above:Order Comment: No: Do not add to previous drawPerformed By: #### 85984, 62609, 75290, 64418, 43929 ####[facility] [place] [address], ZQZCicqmkuc212 mmol/ZVbszsi43-897Fat [facility] Comment on above:Order Comment: No: Do not add to previous drawPerformed By: #### 23131, 87394, 17595, 20412, 32290 ####[facility] [place] [address], AAEQA267 mmol/GGjrlhc79-22Hxe [facility] WestComment on above:Order Comment: No: Do not add to previous drawPerformed By: #### 54675, 65755, 16670, 08962, 59656 ####[facility] [place] [address], [place] Creatinine0.94 mg/dLNormal0.70-1.30The [facility] Comment on above:Order Comment: No: Do not add to previous drawPerformed By: #### 28134, 33527, 98914, 99680, 17113 ####[facility] [place] [address], USAeGFR (black)mL/min/{1.73_m2}Normal >60The [facility] Cleveland WestComment on above:Order Comment: No: Do not add to previous drawResult Comment: Calculation may not be valid for patients over 70 yearsPerformed By: #### 90357, 84702, 23002, 04986, 20906 ####[facility] [place] [address], [place] eGFR (non-black)mL/min/{1.73_m2}Normal>60The [facility] Comment on above:Order Comment: No: Do not add to previous drawResult Comment: Calculation may not be valid for patients over 70 yearsPerformed By: #### 64679, 63339, 56544, 28000, 43627 ####[facility] [place] [address], USAGlucose mass conc98 mg/cQQanado76-634Cld [facility] WestComment on above:Order Comment: No: Do not add to previous drawPerformed By: #### 59801, 07576, 35075, 01320, 03567 ####[facility] [place] [address], [place] Potassium molar conc4.3 mmol/LNormal3.5-5.1The [facility] WestComment on above:Order Comment: No: Do not add to previous drawPerformed By: #### 85678, 79407, 39039, 32454, 42512 ####[facility] [place] [address], CDUOnjnnw813 mmol/CWfempn856-997Rvx [facility] WestComment on above:Order Comment: No: Do not add to previous drawPerformed By: #### 60372, 50249, 46805, 11323, 19150 ####[facility] [place] [address], [facility] Urea lakvatxc62 mg/dLNormal7-25The [facility] WestComment on above:Order Comment: No: Do not add to previous drawPerformed By: #### 05857, 63470, 68651, 05821, 83268 ####[facility] [place] [address], [facility] HOSPITALCBC W/DIFFon 96-39-3705Xsgsaktxq Auto #/vol (Bld)0.5 % Normal0.0-2.0The [facility] Cleveland WestComment on above:Performed By: #### 32737, 68139, 65149, 89393, 91678 ####[facility] [place] [address], [facility]AL HOSPITALEosinophils/100 leukocytes3.6 % Normal0.0-5.0The [facility] Cleveland WestComment on above:Performed By: #### 65515, 20121, 22905, 77918, 93204 ####[facility] [place] [address], ART[facility] GENERAL HOSPITALErythrocyte distribution width Auto Ratio (RBC)14.2 %Yfascc99.5-16.9The [facility] Comment on above:Performed By: #### 46665, 30560, 66645, 68203, 70066 ####[facility] [facility] [facility] [place] [place] [address], [facility] Erythrocytes (RBC)4.19 mill/uy9Llh4.30-5.90The [facility] Cleveland WestComment on above:Performed By: #### 38441, 44154, 74474, 80533, 66120 ####[facility] [place] [address], [facility] Hematocrit (HCT)39.9 %Uzovgc09.0-55.0The [facility] Comment on above:Performed By: #### 51334, 04544, 84022, 58374, 21457 ####[facility] Hemoglobin mass conc (Bld)13.6 g/dLLow13.9-16.3The [facility] Cleveland WestComment on above:Performed By: #### 10838, 39921, 95359, 23118, 94566 ####[facility] [place] [address], [facility] Lymphocytes/100 gmivihcuuj01.7 %Low20.0-40.0The [facility] Cleveland WestComment on above:Performed By: #### 97956, 55888, 10274, 20208, 32374 ####[facility] [facility] [place] [address], [facility] MCH32.4 ptVvcq20.0-32.0The [facility] WestComment on above: Performed By: #### 73869, 64254, 89680, 16267, 43273 ####[facility] [place] [address], [facility] HOSPITALMCHC mass conc (RBC)34.0 g/gBIqhgae68.0-36.0The [facility] WestComment on above: Performed By: #### 00369, 11557, 10824, 15955, 81999 ####[facility] [place] [address], QJPXBQ29.3 oVCrqhws21.0-100.0 The [facility] Cleveland WestComment on above:Performed By: #### 84136, 62935, 95674, 44127, 01006 ####[facility] [place] [address], [facility]ITALMETHODNormal RBC MorphologyNormalThe [facility] Cleveland WestComment on above:Performed By: #### 47409, 58691, 35697, 19146, 87768 ####[facility] [place] [address], USAMONOS9.9 %High2-8The [facility] Cleveland WestComment on above:Performed By: #### 41777, 54894, 60109, 23894, 04633 ####[facility] [place] [address], [place] Neutrophils/100 mrlduitejc82.3 %Dnia30-48Lnc [facility] Comment on above:Performed By: #### 41858, 99072, 74595, 90690, 33423 ####[facility] [place] [address], [place] PLAT AZE239 Thou/jy1Ibjtuj116-717Vnt [facility] WestComment on above:Performed By: #### 79108, 64997, 51230, 56520, 47342 ####[facility] [place] [address], USAWBC (Leukocytes)8.7 Thou/ko7Kvtosp3.0-10.0The [facility] WestComment on above: Performed By: #### 89203, 78710, 86220, 08371, 78458 ####[facility] [place] [address], USADischarge Summaryon [id number] SummaryMR#: [id number] IUniversC[facility] Clinic [facility] Pt. Name: Desean Landry Admitted: 06/13/2017Discharged: 06/20/2017 Date of : 1940 Physician: Diogenes Ren M.D. DISCHARGE SUMMARYPRIMARY DIAGNOSIS: Rhabdomyolysis secondary to prolonged immobilization.SECONDARY DIAGNOSES:1. History of atrial fibrillation.2. Right sided Posterior Calcified pleural plaques.3. Right-sided loculated pleural effusion.CONSULTS: CT Surgery, Pulmonary.PROCEDURES: None.SUMMARY OF HOSPITAL COURSE: is a 76-year-old male, who presentedto [facility] ED with complaints of being [...] EMS was contacted and brought the patient [facility]. Initial workup was notable for severe rhabdomyolysis,and the patient was transferred to [facility]. He has a past medical [...] not have a biopsy performed whilehospitalized at [facility].His CK and myoglobin continue to trend downward, and he was deemed stableat the time of discharge.He will need to follow up with Dr. Rowley at [facility] for continuedmanagement of his pleural effusions concerning for empyema and hisright-sided pleural calcifications. He was to be discharged on June, however his transportation was delayed. He was ultimately dischargedon 06/20/16 [facility].Of note, his Eliquis was stopped for possible thoracentesis in the nextweek. He was instructed that if he does not have a thoracentesis the nextweek, he is to resume his Eliquis for his atrial fibrillation.The patient's condition at discharge stable and improved since admission.DISPOSITION: ECF. DISCHARGE INSTRUCTIONS: You are being discharged to ECF. Please continueto follow up with Dr. Rowley at [facility] for continued management ofthe pleural effusions that [...] 06/19/2017/05:47 P/Jarad Ayon MDDate Trans: 06/20/2017 04:29 P/mmoDN_JN:[id number]: Diogenes Casiano M.D. [address] [facility] [id number] Clinic Union HospitalMAGNESIUM BLOODon 44-24-9500Lxqeoenxs0.0 mg/dLNormal1.9-2.7The [facility] WestComment on above:Order Comment: No: Do not add to previous drawPerformed By: #### 02476, 50069, 01606, 58161, 64757 ####[facility] [place] [address], [facility] HOSPITALPHOSPHORUS BLOODon 30-38-7221Igrnpysdf3.5 mg/dLNormal2.5-5.0The [facility] WestComment on above:Order Comment: No: Do not add to previous draw Performed By: #### 12910, 86914, 82430, 89702, 05343 ####[facility] [place] [address], USABASIC METABOLIC PANELon 23-42-4334Trkevig5.5 mg/dLLow8.6-10.3The [facility] Comment on above:Order Comment: No: Do not add to previous drawPerformed By: #### 31837, 54062, 79952, 86192, 63760 ####[facility] [place] [address], OEIFworzhkg332 mmol/TXffjtk97-693Iud [facility] WestComment on above:Order Comment: No: Do not add to previous drawPerformed By: #### 42791, 64982, 25085, 10781, 20866 ####[facility] [place] [address], [place] CO226 mmol/SWzqjvw59-86Obh [facility] WestComment on above: Order Comment: No: Do not add to previous drawPerformed By: #### 16204, 16358, 23410, 33262, 51953 ####[facility] [place] [address], USACreatinine0.95 mg/dLNormal0.70-1.30The [facility] WestComment on above:Order Comment: No: Do not add to previous drawPerformed By: #### 59780, 29939, 14975, 32252, 81812 ####[facility] [place] [address], USAeGFR (black) mL/min/{1.73_m2}Normal>60The [facility] Cleveland WestComment on above:Order Comment: No: Do not add to previous drawResult Comment: Calculation may not be valid for patients over 70 yearsPerformed By: #### 34315, 37505, 98143, 66486, 59757 ####[facility] [place] [address], USAeGFR (non-black)mL/min/{1.73_m2}Normal>60The [facility] WestComment on above:Order Comment: No: Do not add to previous drawResult Comment: Calculation may not be valid for patients over 70 yearsPerformed By: #### 42794, 91672, 98911, 35738, 00084 ####[facility] [place] [address], USAGlucose mass conc 102 mg/tRUgim45-044Cmj [facility] WestComment on above:Order Comment: No: Do not add to previous drawPerformed By: #### 70047, 11972, 52371, 72644, 81738 ####[facility] [place] [address], USAPotassium molar conc3.7 mmol/LNormal3.5-5.1The [facility] WestComment on above:Order Comment: No: Do not add to previous draw Performed By: #### 66857, 86508, 81399, 54884, 60421 ####[facility] [place] [address], TBSLoezoy308 mmol/LNormal 136-145The [facility] WestComment on above:Order Comment: No: Do not add to previous drawPerformed By: #### 25529, 17708, 03522, 73443, 34992 ####[facility] [place] [address], USAUrea zyvoejfp89 mg/dLNormal7-25The [facility] Comment on above:Order Comment: No: Do not add to previous drawPerformed By: #### 52132, 71370, 76173, 79376, 79801 ####[facility] [place] [address], USACBC W/DIFFon 98-18-7790Clnrubmrx Auto #/vol (Bld)0.5 %Normal0.0-2.0The [facility] WestComment on above:Order Comment: No: Do not add to previous drawPerformed By: #### 68443, 16060, 36006, 45818, 34846 ####[facility] [facility] [place] [address], [facility]OS[facility]ITALEosinophils/100 leukocytes1.0 %Normal0.0-5.0 The [facility] WestComment on above:Order Comment: No: Do not add to previous drawPerformed By: #### 00722, 80255, 76555, 47950, 92129 ####[facility] [facility] [place] [address], [place] Erythrocyte distribution width Auto Ratio (RBC)13.7 %Bjygne20.5-16.9The [facility] WestComment on above:Order Comment: No: Do not add to previous drawPerformed By: #### 29534, 10411, 79699, 62354, 76718 ####[facility] [facility] [place] [address], [facility] Erythrocytes (RBC)4.33 mill/na3Lvcotn1.30-5.90The [facility] WestComment on above:Order Comment: No: Do not add to previous drawPerformed By: #### 14320, 11140, 51016, 02003, 82033 ####[facility] [facility] [place] [address], [facility]OSPITALHematocrit (HCT)41.5 %Normal 39.0-55.0The [facility] WestComment on above:Order Comment: No: Do not add to previous drawPerformed By: #### 90162, 82037, 15409, 38679, 06143 ####[facility] [place] [address], [facility] HOSPITALHemoglobin mass conc (Bld)14.1 g/gFJrmshw72.9-16.3The [facility] WestComment on above:Order Comment: No: Do not add to previous drawPerformed By: #### 18001, 96780, 35083, 82440, 31379 ####[facility] [facility] [place] [address], [facility]OSPITALLymphocytes/100 qrqmwmouim71.5 %Low20.0-40.0The [facility] WestComment on above:Order Comment: No: Do not add to previous drawPerformed By: #### 56502, 20014, 00185, 78588, 13572 ####[facility] [facility] [place] [address], HCIJQU82.7 ftBork40.0-32.0The [facility] WestComment on above:Order Comment: No: Do not add to previous draw Performed By: #### 69487, 07914, 67705, 50125, 00574 ####[facility] [place] [address], [facility] TALIHINAHC mass conc (RBC)34.1 g/lLFsmekp09.0-36.0The [facility] WestComment on above:Order Comment: No: Do not add to previous drawPerformed By: #### 03461, 48819, 07473, 02387, 60827 ####[facility] [facility] [place] [address], VFLEZV72.9 eRAebzgy01.0-100.0The [facility] Comment on above:Order Comment: No: Do not add to previous drawPerformed By: #### 00061, 71797, 58267, 35621, 02084 ####[facility] [facility] [place] [address], USAMETHODNormal RBC MorphologyNormal The [facility] WestComment on above:Order Comment: No: Do not add to previous drawPerformed By: #### 91204, 37465, 32629, 73511, 38072 ####[facility] [facility] [place] [address], [place] MONOS11.9 %High2-8The [facility] WestComment on above:Order Comment: No: Do not add to previous drawPerformed By: #### 22374, 61950, 93556, 17705, 71785 ####[facility] [place] [address], USANeutrophils/100 fyrfxotvyo60.1 %Hmak70-55Jcp [facility] WestComment on above:Order Comment: No: Do not add to previous draw Performed By: #### 76718, 97751, 71072, 29190, 79597 ####[facility] [facility] [place] [address], USAPLAT GCC922 Thou/ck8Ubdplx 100-400The [facility] WestComment on above:Order Comment: No: Do not add to previous drawPerformed By: #### 65091, 88378, 14726, 73166, 98340 ####[facility] [place] [address], USAWBC (Leukocytes)10.7 Thou/xz4Erlq2.0-10.0The [facility] WestComment on above:Order Comment: No: Do not add to previous draw Performed By: #### 25766, 06047, 74704, 38310, 71575 ####[facility] [facility] [place] [address], USACPKon 60-49-6354Kwjgrajr kinase (CK)252 U/FGgmj71-133Xye [facility] WestComment on above:Performed By: #### 73687, 78718, 54508, 55155, 00269 ####[facility] [facility] [place] [address], USAMAGNESIUM BLOODon 92-25-3627Kbfcmtsrx9.0 mg/dLNormal1.9-2.7The [facility] Comment on above:Order Comment: No: Do not add to previous drawPerformed By: #### 58363, 39962, 89393, 20915, 57511 ####[facility] [place] [address], USAMYOGLOBINon 73-45-8985Keipdajea221 ng/mLCritically high0-90The [facility] WestComment on above:Result Comment: A DOUBLING OF VALUES FROM SERIAL BLOOD COLLECTIONS(1 - 2 HOURS APART) IS MORE INDICATIVE OF A M.I.THAN THE ABSOLUTE VALUE.Performed By: #### 77089, 31924, 96539, 34899, 91940 ####[facility] [place] [address], USAPHOSPHORUS BLOODon 06-19-2017 Phosphate2.7 mg/dLNormal2.5-5.0The [facility] WestComment on above:Order Comment: No: Do not add to previous drawPerformed By: #### 02727, 39178, 59124, 46024, 47740 ####[facility] [place] [address], USAALBUMIN BLOODon 63-67-4156Nrmzcgo7.6 g/dLLow3.5-5.7The [facility] WestComment on above:Performed By: #### 35846, 69506, 33692, 00781, 53827 ####[facility] [place] [address], USABASIC METABOLIC PANELon 31-32-6706Ciqsqha5.4 mg/dLLow 8.6-10.3The [facility] WestComment on above:Order Comment: No: Do not add to previous drawPerformed By: #### 11003 ####[facility] [place] [address], NUUZrkhioql084 mmol/LNormal 98-107The [facility] WestComment on above:Order Comment: No: Do not add to previous drawPerformed By: #### 30416 ####[facility] [place] [address], NELTO615 mmol/XXlqihf56-21Jsd [facility] WestComment on above:Order Comment: No: Do not add to previous drawPerformed By: #### 27220 ####[facility] [place] [address], USACreatinine0.93 mg/dLNormal 0.70-1.30The [facility] WestComment on above:Order Comment: No: Do not add to previous drawPerformed By: #### 40060 ####[facility] [place] [address], [facility]OSPITALeGFR (black) mL/min/{1.73_m2}Normal>60The [facility] WestComment on above:Order Comment: No: Do not add to previous drawResult Comment: Calculation may not be valid for patients over 70 yearsPerformed By: #### 85570 ####[facility] [facility] [place] [address], [place] eGFR (non-black)mL/min/{1.73_m2}Normal>60The [facility] Comment on above:Order Comment: No: Do not add to previous drawResult Comment: Calculation may not be valid for patients over 70 yearsPerformed By: #### 65743 ####[facility] [place] [address], [place] Glucose mass vjzx847 mg/kVExzz52-634Flh [facility] Comment on above:Order Comment: No: Do not add to previous drawPerformed By: #### 39626 ####[facility] [facility] [place] [address], [facility]OSPITALPotassium molar conc3.4 mmol/LLow3.5-5.1The [facility] WestComment on above:Order Comment: No: Do not add to previous draw Performed By: #### 58802 ####[facility] [place] [address] [place] [address], TKBXcnpzg516 mmol/CZzogao768-514Rbd [facility] WestComment on above:Order Comment: No: Do not add to previous draw Performed By: #### 59306 ####[facility] [place] [place] [address], USAUrea ekeiysrv44 mg/dLNormal7-25The [facility] WestComment on above:Order Comment: No: Do not add to previous draw Performed By: #### 92671 ####[facility] [place] [address], [facility]OSPITALCBC W/DIFFon 03-22-5904Czyubnsal Auto #/vol (Bld)0.9 % Normal0.0-2.0The [facility] WestComment on above:Order Comment: No: Do not add to previous drawPerformed By: #### 38475 ####[facility] [place] [address], [facility]OSPITALEosinophils/100 leukocytes2.3 %Normal0.0-5.0The [facility] WestComment on above:Order Comment: No: Do not add to previous drawPerformed By: #### 70623 ####[facility] [place] [address], [facility] Erythrocyte distribution width Auto Ratio (RBC)13.6 %Usaczm97.5-16.9The [facility] WestComment on above:Order Comment: No: Do not add to previous drawPerformed By: #### 62177 ####[facility] [address] [address], [facility] HOSPITALErythrocytes (RBC)4.37 mill/mm3 Normal4.30-5.90The [facility] WestComment on above:Order Comment: No: Do not add to previous drawPerformed By: #### 80869 ####[facility] [place] [address], [facility] HOSPITALHematocrit (HCT) 42.0 %Ffzcrk59.0-55.0The [facility] WestComment on above: Order Comment: No: Do not add to previous drawPerformed By: #### 65285 ####[facility] [facility] [place] [place] [address], [facility] Hemoglobin mass conc (Bld)14.2 g/sTVebipn66.9-16.3The [facility] WestComment on above:Order Comment: No: Do not add to previous draw Performed By: #### 68568 ####[facility] [facility] [place] [place] [address], [facility] HOSPITALLymphocytes/100 walctfzgoc38.2 %Low20.0-40.0The [facility] WestComment on above:Order Comment: No: Do not add to previous drawPerformed By: #### 10451 ####[facility] [address].[place] [address], VKNQDQ88.5 diZndz45.0-32.0The [facility] WestComment on above:Order Comment: No: Do not add to previous drawPerformed By: #### 09719 ####[facility] [facility] [place] [address], [facility] GENER[facility] HOSPITALMCHC mass conc (RBC)33.8 g/dL Dnkooa70.0-36.0The [facility] WestComment on above:Order Comment: No: Do not add to previous drawPerformed By: #### 78955 ####[facility] [facility] [place] [address], TBBGWX99.1 fLNormal 80.0-100.0The [facility] WestComment on above:Order Comment: No: Do not add to previous drawPerformed By: #### 91771 ####[facility] [facility] [place] [place] [address], [facility]OS[facility]ITALMETHODNormal RBC MorphologyNormalThe [facility] WestComment on above:Order Comment: No: Do not add to previous drawPerformed By: #### 15725 ####[facility] [place] [address], EEKYJBNG30.8 %High 2-8The [facility] WestComment on above:Order Comment: No: Do not add to previous drawPerformed By: #### 54806 ####[facility] [place] [address], USANeutrophils/100 leukocytes 69.8 %Qiiyuu02-17Ojx [facility] WestComment on above:Order Comment: No: Do not add to previous drawPerformed By: #### 22844 ####[facility] [place] [address], USAPLAT CDL213 Thou/qg4Akgpyh142-332Lux [facility] WestComment on above: Order Comment: No: Do not add to previous drawPerformed By: #### 44002 ####[facility] [place] [address], [place] WBC (Leukocytes)10.8 Thou/lp7Sqcu2.0-10.0The [facility] Comment on above:Order Comment: No: Do not add to previous drawPerformed By: #### 34775 ####[facility] [place] [address], USACPKon 84-02-7473Bajhtntg kinase (CK)586 U/ETipk97-700Mph [facility] WestComment on above:Performed By: #### 17287, 16217, 20587, 92435, 97712 ####[facility] [place] [address], [facility] HOSPITALMAGNESIUM BLOODon 84-52-5020Asqzpfpda7.9 mg/dLNormal1.9-2.7The [facility] WestComment on above:Order Comment: No: Do not add to previous drawPerformed By: #### 83462 ####[facility] [place] [address], [facility] HOSPITALMYOGLOBINon 43-50-9019Ypfxrlnxn554 ng/mLCritically high0-90The [facility] WestComment on above:Result Comment: A DOUBLING OF VALUES FROM SERIAL BLOOD COLLECTIONS(1 - 2 HOURS APART) IS MORE INDICATIVE OF A M.I.THAN THE ABSOLUTE VALUE.Performed By: #### 82256, 60487, 51545, 88967, 71213 ####[facility] [place] [address], USAPHOSPHORUS BLOODon 06-18-2017 Phosphate3.7 mg/dLNormal2.5-5.0The [facility] WestComment on above:Order Comment: No: Do not add to previous drawPerformed By: #### 71123 ####[facility] [place] [address], [facility] BASIC METABOLIC PANELon 04-03-0557Ckgixha1.4 mg/dLLow8.6-10.3The [facility] WestComment on above:Order Comment: No: Do not add to previous drawPerformed By: #### 65850 ####[facility] [place] [address], YQFHgyudwxv926 mmol/MWupv20-186Fve [facility] WestComment on above:Order Comment: No: Do not add to previous drawPerformed By: #### 22201 ####[facility] [place] [address], XBHJR387 mmol/ANamdre88-57Mdn [facility] WestComment on above:Order Comment: No: Do not add to previous drawPerformed By: #### 37576 ####[facility] [place] [address], USACreatinine0.95 mg/dLNormal0.70-1.30The [facility] Cleveland WestComment on above:Order Comment: No: Do not add to previous drawPerformed By: #### 81209 ####[facility] [place] [address], USAeGFR (black)mL/min/{1.73_m2}Normal >60The [facility] WestComment on above:Order Comment: No: Do not add to previous drawResult Comment: Calculation may not be valid for patients over 70 yearsPerformed By: #### 74791 ####[facility] [place] [address], USAeGFR (non-black)mL/min/{1.73_m2} Normal>60The [facility] WestComment on above:Order Comment: No: Do not add to previous drawResult Comment: Calculation may not be valid for patients over 70 yearsPerformed By: #### 49160 ####[facility] [place] [address], USAGlucose mass nsfm464 mg/dLHigh 70-100The [facility] WestComment on above:Order Comment: No: Do not add to previous drawPerformed By: #### 20543 ####[facility] [place] [place] [address], USAPotassium molar conc3.5 mmol/LNormal3.5-5.1The [facility] WestComment on above:Order Comment: No: Do not add to previous drawPerformed By: #### 67562 ####[facility] [place] [address], YMMEyqhbt968 mmol/UGymekg710-843Mlk [facility] WestComment on above:Order Comment: No: Do not add to previous drawPerformed By: #### 87983 ####[facility] [place] [address], USAUrea gifebncl32 mg/dLNormal7-25The [facility] WestComment on above:Order Comment: No: Do not add to previous drawPerformed By: #### 29881 ####[facility] [place] [address], [facility]OSPITALCBC COMPLETE BLOOD COUNTon 86-13-5740Dtcddnvixae distribution width Auto Ratio (RBC)13.7 % Ihgedy36.5-16.9The [facility] WestComment on above:Order Comment: No: Do not add to previous drawPerformed By: #### 18723 ####[facility] [place] [address], [facility] HOSPITALErythrocytes (RBC)4.45 mill/ij6Ioxqye7.30-5.90The [facility] WestComment on above:Order Comment: No: Do not add to previous drawPerformed By: #### 56980 ####[facility] [facility] [place] [address], [facility] Hematocrit (HCT)42.9 %Haxvds97.0-55.0The [facility] Comment on above:Order Comment: No: Do not add to previous drawPerformed By: #### 61109 ####[facility] [place] [address], [facility] HOSPITALHemoglobin mass conc (Bld)14.3 g/bWHonlzt62.9-16.3The [facility] WestComment on above:Order Comment: No: Do not add to previous drawPerformed By: #### 10806 ####[facility] [facility] [place] [address], ELKXOU81.1 xrRfbg54.0-32.0The [facility] WestComment on above:Order Comment: No: Do not add to previous drawPerformed By: #### 45530 ####[facility] [facility] [place] [address], [facility] HOSPITALMCHC mass conc (RBC)33.3 g/iWSzvffo55.0-36.0 The [facility] WestComment on above:Order Comment: No: Do not add to previous drawPerformed By: #### 36928 ####[facility] [place] [address], HGQUNI97.3 zAKdgsxh98.0-100.0 The [facility] WestComment on above:Order Comment: No: Do not add to previous drawPerformed By: #### 17318 ####[facility] [place] [address].[place] [address], [facility] HOSPITALPLAT XDB706 Thou/tg8Ajtfsr 100-400The [facility] WestComment on above:Order Comment: No: Do not add to previous drawPerformed By: #### 90074 ####[facility] [facility] [place] [address], [facility] HOSPITALWBC (Leukocytes)10.7 Thou/pv6Edsx5.0-10.0The [facility] WestComment on above: Order Comment: No: Do not add to previous drawPerformed By: #### 68163 ####[facility] [place] [address], [facility] MYOGLOBINon 59-32-7603Qzyfomxpj272 ng/mLCritically high0-90The [facility] WestComment on above:Result Comment: A DOUBLING OF VALUES FROM SERIAL BLOOD COLLECTIONS(1 - 2 HOURS APART) IS MORE INDICATIVE OF A M.I.THAN THE ABSOLUTE VALUE.Performed By: #### 27908 ####[address] LUMBAR SPINE WO CONTRASTon 74-42-25086U CT LUMBAR SPINE WO CONTRASTUnFirelands Regional Medical Center South CampusDepartment of Qerhxbdiu[address] [place] [id number] Patien t Name: LANDRYJOVANYDESEAN E : 2Sex: MAge: Race: WhiteMRN: [id number]. Location: [id number]: IVisit #: [id number] Date: 06/16/2017 10:45:00 AMCompleted Date: 06/16/2017 11:31 AMRequesting Provider: NADEEN SALCEDO Attending Provider: NADEEN SALCEDO Report Copy To: Signs & Symptoms: Back Pain (specify level)History: Patient history not availableComments: R/O Fractures, If Other selected, state reason for examExam: 3D CT LUMBAR SPINE WO CONTRASTAccession #: [id number]======== 3D CT LUMBAR SPINE WO CONTRAST 06/16/2017 [...] findings. Electronically signed by:Srinath Meyer. Transcribed by: [email or web address], User Resident: PAOLA ROSTElectronically Signed by: SRINATH MEYER @ 06/16/2017 12:13 PMI personally read this/these film(s) with this residentOhioHealth Grant Medical CenterComment on above:Order Comment: No: Do not add to previous draw3D CT THORACIC SPINE WO CONTRASTon 39-25-05975E CT THORACIC SPINE WO CONTRASTUnFirelands Regional Medical Center South CampusDepartment of Bgkcyfblf[address] [place] [address] Patien t Name: DESEAN LANDRY : 1940ex: MAge: Race: WhiteMRN: [id number]. Location: [id number]: IVisit #: [id number] Date: 06/16/2017 10:45:00 AMCompleted Date: 06/16/2017 11:32 [...] findings. Electronically signed by:Srinath Meyer. Transcribed by: [email or web address], User Resident: CAN HARRISElectronically Signed by: SRINATH MEYER @ 06/16/2017 12:03 PMI personally read this/these film(s) with this residentOhioHealth Grant Medical CenterComment on above:Order Comment: No: Do not add to previous draw BASIC METABOLIC PANELon 35-84-3433Shbasit4.9 mg/dLLow8.6-10.3The [facility] WestComment on above:Order Comment: No: Do not add to previous drawPerformed By: #### 22241, 56251 ####[facility] [place] [address], MABYpugzzdl659 mmol/SImvd16-862Ekg [facility] WestComment on above:Order Comment: No: Do not add to previous drawPerformed By: #### 55247, 45256 ####[facility] [place] [address], BGGUN533 mmol/IUttbrg26-93Gyu [facility] WestComment on above:Order Comment: No: Do not add to previous drawPerformed By: #### 93143, 24689 ####[facility] [place] [address], USACreatinine1.05 mg/dLNormal0.70-1.30The [facility] WestComment on above:Order Comment: No: Do not add to previous drawPerformed By: #### 57990, 47066 ####[facility] [place] [address], USAeGFR (black) mL/min/{1.73_m2}Normal>60The [facility] WestComment on above:Order Comment: No: Do not add to previous drawResult Comment: Calculation may not be valid for patients over 70 yearsPerformed By: #### 04943, 13563 ####[facility] [place] [address], [place] eGFR (non-black)mL/min/{1.73_m2}Normal>60The [facility] Comment on above:Order Comment: No: Do not add to previous drawResult Comment: Calculation may not be valid for patients over 70 yearsPerformed By: #### 76252, 66516 ####[facility] [place] [address], USAGlucose mass znfv698 mg/pKLnwc08-525Tqo [facility] WestComment on above:Order Comment: No: Do not add to previous drawPerformed By: #### 82736, 38294 ####[facility] [place] [address], USAPotassium molar conc4.0 mmol/LNormal3.5-5.1The [facility] WestComment on above:Order Comment: No: Do not add to previous drawPerformed By: #### 36582, 88744 ####[address] [place] [address], JXJSizwcv286 mmol/LNormal 136-145The [facility] WestComment on above:Order Comment: No: Do not add to previous drawPerformed By: #### 91982, 49739 ####[place] [address] [place] [address], USAUrea idzokdzl83 mg/dLNormal7-25The [facility] WestComment on above:Order Comment: No: Do not add to previous drawPerformed By: #### 81364, 07400 ####[address] [place] [address], [facility] BNP (B-TYPE NATRIURETIC PEPTIDE)on 42-78-2428NVF1781 pg/mLHigh0-100The [facility] WestComment on above:Order Comment: No: Do not add to previous drawResult Comment: Given the appropriate clinical setting a BNP result of >100 pg/mLindicates congestive heart failure.Performed By: #### 22607 ####[address] [place] [address], [facility] CBC COMPLETE BLOOD COUNTon 64-52-3743Zcedisjwgxm distribution width Auto Ratio (RBC)13.7 %Heltjb09.5-16.9The [facility] WestComment on above:Order Comment: No: Do not add to previous drawPerformed By: #### 72670, 34043 ####[address] [place] [address], [facility] HOSPITALErythrocytes (RBC)4.24 mill/gd9Cid9.30-5.90The [facility] WestComment on above:Order Comment: No: Do not add to previous draw Performed By: #### 59232, 53876 ####[address] [place] [address], [facility] HOSPITALHematocrit (HCT)40.7 %Xhitmu55.0-55.0The [facility] WestComment on above:Order Comment: No: Do not add to previous drawPerformed By: #### 44098, 69356 ####[facility] [place] [address].[place] [address], [facility] HOSPITALHemoglobin mass conc (Bld) 13.6 g/dLLow13.9-16.3The [facility] WestComment on above: Order Comment: No: Do not add to previous drawPerformed By: #### 75153, [address]3271 ####[place] [address], [facility] MCH32.1 zrBqto74.0-32.0The [facility] WestComment on above: Order Comment: No: Do not add to previous drawPerformed By: #### 13223, 85123 ####[address] MCHC mass conc (RBC)33.4 g/lENcngew96.0-36.0The [facility] WestComment on above:Order Comment: No: Do not add to previous drawPerformed By: #### 06325, 84008 ####[place] [address], MBRLTD40.1 nMUlotda82.0-100.0The [facility] WestComment on above:Order Comment: No: Do not add to previous draw Performed By: #### 36941, 09307 ####[address] [place] [address], [facility] HOSPITALPLAT IXY475 Thou/ba6Ivufup220-661Wnv [facility] WestComment on above:Order Comment: No: Do not add to previous drawPerformed By: #### 71375, 02425 ####[address] [place] [address], [facility] HOSPITALWBC (Leukocytes)10.3 Thou/lv9Xdiz1.0-10.0[facility] SouthComment on above: Order Comment: No: Do not add to previous drawPerformed By: #### 99973, 11829 ####[facility] [place] [address] CPKon 34-58-4975Ycshibax kinase (CK)2950 U/LCritically dhwo80-998Tgl [facility] WestComment on above:Performed By: #### 26148, 58215 ####[address] CR-PORTABLE CHEST 1 VIEW IMPORTon 96-41-8220CH-PORTABLE CHEST 1 VIEW IMPORT Images were obtained outside of [facility] [id number]_IDCSIACNNormalThe [facility] SystemCT CHEST WO CONTRASTon 89-90-3500DW CHEST WO CONTRASTUnFirelands Regional Medical Center South CampusDepartment of Hlhgmj[address] [place], [place] [address] Patien t Name: DESEAN LANDRY : 2Sex: MAge: Race: WhiteMRN: [id number]. Location: [id number]: IVisit #: [id number] Date: 06/16/2017 5:25:00 PMCompleted Date: 06/16/2017 06:06 PMRequesting Provider: RAFFAELE GARCIA Attending Provider: NADEEN SALCEDO Report Copy To: Signs & Symptoms: Shortness of BreathHistory: Patient history not availableComments: R/O Pleural Effusion, please comment about pleural effusionExam: CT CHEST WO CONTRASTAccession #: [id number] CT CHEST WO CONTRAST 06/16/2017 6:06 PM [...] findings. Electronically signed by:Xiomara Christine. Transcribed by: [email or web address], User Resident: SUNITHA CAMACHOElectronically Signed by: XIOMARA CHRISTINE @ 06/17/2017 01:24 PMI personally read this/these film(s) with this residentOhioHealth Grant Medical CenterComment on above:Order Comment: No: Do not add to previous drawCT-3D CT LUMBAR SPINE WO CONTRAST IMPORTon 67-34-4888OW-3D CT LUMBAR SPINE WO CONTRAST IMPORTImages were obtained outside of [facility] [id number]_IDCSIACNNAdena Regional Medical Center ClevelandCT-3D CT THORACIC SPINE WO CONTRAST IMPORTon 63-54-6712BN-3D CT THORACIC SPINE WO CONTRAST IMPORTImages were obtained outside of [facility] [id number]_IDCSIACBrecksville VA [facility] ClevelandCT-CT CHEST WO CONTRAST IMPORTon 57-82-8568HB-CT CHEST WO CONTRAST IMPORTImages were obtained outside of [facility] [id number]_IDCSIACBrecksville [facility] ClevelandMYOGLOBINon 06-16-2017 Tpmmncnjk811 ng/mLCritically high0-90The [facility] Comment on above:Result Comment: A DOUBLING OF VALUES FROM SERIAL BLOOD COLLECTIONS(1 - 2 HOURS APART) IS MORE INDICATIVE OF A M.I.THAN THE ABSOLUTE VALUE.Performed By: #### 07490, 47004 ####[facility] [place] [address], USAPORTABLE CHEST 1 VIEWon 06-16-2017 PORTABLE CHEST 1 VIEWUnFirelands Regional Medical Center South CampusDepartment of Liumgpkvt9210 [place] [address] Patien t Name: DESEAN LANDRY : 2Sex: MAge: Race: WhiteMRN: [id number]. Location: [id number]: Rekha #: [id number] Date: 06/16/2017 12:50:00 PMCompleted Date: 06/16/2017 01:22 PMRequesting Provider: NADEEN SALCEDO Attending Provider: NADEEN SALCEDO Report Copy To: Signs & Symptoms: O2 DesaturationHistory: Patient history not availableComments: R/O AspirationExam: PORTABLE CHEST 1 VIEWAccession #: [id number] ====PORTABLE CHEST 1 VIEW 06/16/2017 1:22 PM [...] left chest. Electronically signed by:Srinath Meyer. Transcribedby: [email or web address], User Resident: Electronically Signed by: SRINATH MEYER @ 06/16/2017 01:25 PMNormal The [facility] WestComment on above:Order Comment: No: Do not add to previous drawPROTHROMBIN TIMEon 68-42-8698BAN Coag RelTime (PPP)1.51 {INR}High0.91-1.16The [facility] WestComment on above:Order Comment: No: Do not add [...] ACTION, CLINICALEFFECTIVENESS, AND OPTIMAL THERAPEU TIC RANGE. [id number];108:231S-246S.Performed By: #### 92957 ####[facility] [facility] [place] [address], [facility] HOSPITALProthrombin time (PT) Coag time (PPP)18.4 sHigh12.3-14.8The [facility] Comment on above:Order Comment: No: Do not add to previous drawResult Comment: ALL RESULTS MUST BE INTERPRETED WITH RESPECT TO BLOOD DRAWING ARTIFACTOR DILUTION ERROR OF ANTICOAGULANT AT THE TIME OF SAMPLING.Performed By: #### 59571 ####[facility] [place] [address], [facility] BASIC METABOLIC PANELon 37-35-4514Yuhjwfo2.0 mg/dLLow8.6-10.3The [facility] WestComment on above:Order Comment: No: Do not add to previous drawPerformed By: #### 29436, 71240, 28171, 60724 ####[facility] [place] [address], ZTAOitqdlci095 mmol/LHigh 98-107The [facility] WestComment on above:Order Comment: No: Do not add to previous drawPerformed By: #### 66527, 64950, 79535, 15845 ####[facility] [facility] [place] [address], [place] CO221 mmol/RAbeqht65-57Ecf [facility] WestComment on above: Order Comment: No: Do not add to previous drawPerformed By: #### 64806, 53023, 81416, 20702 ####[facility] [facility] [place] [address], USACreatinine1.15 mg/dLNormal0.70-1.30The [facility] WestComment on above:Order Comment: No: Do not add to previous drawPerformed By: #### 40017, 47383, 10489, 44615 ####[facility] [facility] [place] [place] [address], USAeGFR (black)mL/min/{1.73_m2}Normal>60The [facility] WestComment on above:Order Comment: No: Do not add to previous drawResult Comment: Calculation may not be valid for patients over 70 yearsPerformed By: #### 42814, 01477, 57706, 59372 ####[facility] [facility] [place] [address], USAeGFR (non-black) mL/min/{1.73_m2}Normal>60The [facility] WestComment on above:Order Comment: No: Do not add to previous drawResult Comment: Calculation may not be valid for patients over 70 yearsPerformed By: #### 91367, 86275, 51771, 25213 ####[facility] [facility] [place] [place] [address], USAGlucose mass nqwl542 mg/sWRfmm16-635Nqd [facility] WestComment on above:Order Comment: No: Do not add to previous drawPerformed By: #### 05707, 21529, 94877, 82282 ####[facility] [place] [address], USAPotassium molar conc3.9 mmol/LNormal3.5-5.1The [facility] WestComment on above:Order Comment: No: Do not add to previous drawPerformed By: #### 86235, 31141, 18854, 37550 ####[facility] [facility] [place] [address], GVPRqhzog576 mmol/L Cgesiy620-163Sny [facility] WestComment on above:Order Comment: No: Do not add to previous drawPerformed By: #### 98395, 11527, 35966, 74844 ####[facility] [facility] [place] [address], USAUrea jcxkdqhi73 mg/dLNormal7-25The [facility] Comment on above:Order Comment: No: Do not add to previous drawPerformed By: #### 15198, 20743, 60920, 44785 ####[facility] [facility] [place] [address], USACBC COMPLETE BLOOD COUNTon 06-15-2017 Erythrocyte distribution width Auto Ratio (RBC)13.7 %Bvuuhu35.5-16.9The [facility] WestComment on above:Order Comment: No: Do not add to previous drawPerformed By: #### 33077 ####[facility] [place] [address], USAErythrocytes (RBC)4.44 mill/mm3 Normal4.30-5.90The [facility] WestComment on above:Order Comment: No: Do not add to previous drawPerformed By: #### 48301 ####[facility] [place] [address], USAHematocrit (HCT) 42.7 %Rvaayn22.0-55.0The [facility] WestComment on above: Order Comment: No: Do not add to previous drawPerformed By: #### 12310 ####[facility] [place] [address], [facility] Hemoglobin mass conc (Bld)14.5 g/iIWsousg41.9-16.3The [facility] WestComment on above:Order Comment: No: Do not add to previous draw Performed By: #### 90703 ####[facility] [facility] [place] [place] [address], CVKYCY82.7 wfZtxk08.0-32.0The [facility] WestComment on above:Order Comment: No: Do not add to previous drawPerformed By: #### 17453 ####[facility] [facility] [place] [address], [facility] – TALIHINAHC mass conc (RBC)34.0 g/vYIexmjf46.0-36.0The [facility] WestComment on above:Order Comment: No: Do not add to previous drawPerformed By: #### 51232 ####[facility] [facility] [place] [address], ZTPLZF36.1 fFThdpax01.0-100.0The [facility] WestComment on above:Order Comment: No: Do not add to previous drawPerformed By: #### 84596 ####[facility] [facility] [place] [place] [address], USAPLAT KSF469 Thou/bm8Wjzlni131-238Gqs [facility] WestComment on above:Order Comment: No: Do not add to previous drawPerformed By: #### 24236 ####[facility] [facility] [place] [place] [address], [facility] HOSPITALWBC (Leukocytes)11.3 Thou/oy4Vplh 4.0-10.0The [facility] WestComment on above:Order Comment: No: Do not add to previous drawPerformed By: #### 43019 ####[facility] [facility] [place] [address], USACPKon 27-54-6755Semcbprn kinase (CK)7925 U/LCritically ekjp14-848Tne [facility] Comment on above:Order Comment: No: Do not add to previous drawPerformed By: #### 70972, 59475 ####[facility] [place] [address], USAMAGNESIUM BLOODon 44-91-2332Yqciyxxcf8.4 mg/dLNormal 1.9-2.7The [facility] WestComment on above:Performed By: #### 34785, 52464 ####[facility] [place] [address], USAPHOSPHORUS BLOODon 47-22-6453Dwgmzjraf6.6 mg/dLNormal 2.5-5.0The [facility] WestComment on above:Performed By: #### 94888, 03882 ####[facility] [facility] [place] [address], USABASIC METABOLIC PANELon 62-70-5530Fbgjopn0.3 mg/dLLow 8.6-10.3The [facility] WestComment on above:Order Comment: No: Do not add to previous drawPerformed By: #### 03220, 49132, 68111, 20141, 82589 ####[facility] [facility] [place] [address], WTXUmhqczub210 mmol/JGvptzz70-476Acl [facility] Comment on above:Order Comment: No: Do not add to previous drawPerformed By: #### 37391, 21624, 43350, 19601, 63116 ####[facility] [place] [address], RMXED397 mmol/FLrfocr66-15Enh [facility] WestComment on above:Order Comment: No: Do not add to previous drawPerformed By: #### 60560, 19249, 87190, 87133, 47382 ####[facility] [place] [address], [facility] Creatinine1.25 mg/dLNormal0.70-1.30The [facility] Comment on above:Order Comment: No: Do not add to previous drawPerformed By: #### 08757, 45747, 46427, 61152, 47249 ####[facility] [place] [address], [facility]OSPITALeGFR (black)mL/min/{1.73_m2}Normal >60The [facility] WestComment on above:Order Comment: No: Do not add to previous drawResult Comment: Calculation may not be valid for patients over 70 yearsPerformed By: #### 86203, 49557, 95721, 76800, 80279 ####[facility] [place] [address], [facility] eGFR (non-black)56 ml/min/1.73sq mAbnormal>60The [facility] WestComment on above:Order Comment: No: Do not add to previous drawResult Comment: Calculation may not be valid for patients over 70 yearsPerformed By: #### 87455, 55073, 50811, 56726, 40328 ####[facility] [place] [address], [facility] HOSPITALGlucose mass wlfd752 mg/dLHigh 70-100The [facility] WestComment on above:Order Comment: No: Do not add to previous drawPerformed By: #### 11342, 36092, 88174, 80877, 45732 ####[facility] [place] [address], [facility] Potassium molar conc4.3 mmol/LNormal3.5-5.1The [facility] WestComment on above:Order Comment: No: Do not add to previous drawPerformed By: #### 56490, 10299, 33543, 08937, 34054 ####[facility] [place] [address], AIJGdryye700 mmol/KBdtotk293-337Vwq [facility] WestComment on above:Order Comment: No: Do not add to previous drawPerformed By: #### 32865, 93713, 91741, 30376, 16946 ####[facility] [place] [address], [place] Urea shersxze59 mg/dLNormal7-25The [facility] WestComment on above:Order Comment: No: Do not add to previous drawPerformed By: #### 43822, 99902, 28436, 09977, 32027 ####[facility] [place] [address], [facility] HOSPITALCBC COMPLETE BLOOD COUNTon 44-81-8904Qxltmyandxy distribution width Auto Ratio (RBC)13.8 %Rrrtvq41.5-16.9The [facility] WestComment on above:Order Comment: No: Do not add to previous draw Performed By: #### 82495 ####[facility] [facility] [place] [address], [facility] HOSPITALErythrocytes (RBC)4.83 mill/hf7Zhtsje6.30-5.90The [facility] WestComment on above:Order Comment: No: Do not add to previous drawPerformed By: #### 80232 ####[facility] [facility] [place] [address], USAHematocrit (HCT)46.7 %Normal 39.0-55.0The [facility] WestComment on above:Order Comment: No: Do not add to previous drawPerformed By: #### 32159 ####[facility] [place] [address], [facility] HOSPITALHemoglobin mass conc (Bld)15.8 g/nDHrefld75.9-16.3The [facility] WestComment on above:Order Comment: No: Do not add to previous drawPerformed By: #### 36739 ####[facility] [facility] [place] [address], [facility] MCH32.7 yeUqmg59.0-32.0The [facility] WestComment on above: Order Comment: No: Do not add to previous drawPerformed By: #### 65525 ####[facility] [facility] [place] [address], [facility] MCHC mass conc (RBC)33.9 g/nPTbjsjb23.0-36.0The [facility] WestComment on above:Order Comment: No: Do not add to previous drawPerformed By: #### 03762 ####[facility] [address].[place] [address], PFFYLR60.6 oGMlrwps73.0-100.0The [facility] Comment on above:Order Comment: No: Do not add to previous drawPerformed By: #### 43518 ####[facility] [place] [address].[place] [address], [facility] HOSPITALPLAT OYO864 Thou/jk8Nqxgaz561-322Brt [facility] WestComment on above:Order Comment: No: Do not add to previous drawPerformed By: #### 96948 ####[address] [place] [address], [facility] HOSPITALWBC (Leukocytes)15.7 Thou/kr0Pvmz5.0-10.0The [facility] WestComment on above:Order Comment: No: Do not add to previous draw Performed By: #### 54201 ####[address] [place] [address], [facility] HOSPITALCPKon 82-68-1528Qftbfxpg kinase (CK)86507 U/LCritically bwrk99-478Uny [facility] WestComment on above:Performed By: #### 94631, 07669, 76861, 67373, 63623 ####[facility] [address].[place] [address], USAMAGNESIUM BLOODon 06-14-2017 Magnesium2.8 mg/dLHigh1.9-2.7The [facility] WestComment on above:Order Comment: No: Do not add to previous drawPerformed By: #### 91409, 88427, 92982, 58062, 71308 ####[facility] [place] [address], USAPHOSPHORUS BLOODon 95-33-3841Ljbuxqqmo3.3 mg/dLNormal 2.5-5.0The [facility] WestComment on above:Order Comment: No: Do not add to previous drawPerformed By: #### 45961, 89619, 97631, 26520, 18942 ####[facility] [place] [address], USATSHon 49-26-6240Pstndch stimulating hormone (TSH)2.65 MICRO-IU/ML Normal0.34-5.60The [facility] WestComment on above:Performed By: #### 15989, 60244, 27814, 10594, 50986 ####[facility] [place] [address], USABASIC METABOLIC PANELon 06-13-2017 Calcium8.4 mg/dLLow8.6-10.3The [facility] WestComment on above:Order Comment: No: Do not add to previous drawPerformed By: #### 82741, 40003 ####[facility] [place] [address], SFNTeaoggsj895 mmol/ATcocaw02-796Mxw [facility] Comment on above:Order Comment: No: Do not add to previous drawPerformed By: #### 80661, 25781 ####[facility] [place] [address], LFLJS380 mmol/TCwjsue71-37Msq [facility] WestComment on above:Order Comment: No: Do not add to previous drawPerformed By: #### 03703, 69276 ####[facility] [place] [address], USACreatinine1.26 mg/dLNormal0.70-1.30The [facility] WestComment on above:Order Comment: No: Do not add to previous drawPerformed By: #### 51112, 10529 ####[facility] [place] [address], USAeGFR (black)mL/min/{1.73_m2}Normal>60The [facility] WestComment on above:Order Comment: No: Do not add to previous drawResult Comment: Calculation may not be valid for patients over 70 yearsPerformed By: #### 50706, 52820 ####[facility] [place] [address], USAeGFR (non-black)56 ml/min/1.73sq m Abnormal>60The [facility] WestComment on above:Order Comment: No: Do not add to previous drawResult Comment: Calculation may not be valid for patients over 70 yearsPerformed By: #### 76258, 50390 ####[facility] [place] [address], [facility] HOSPITALGlucose mass mlht470 mg/hNCcos15-825Hgo [facility] WestComment on above: Order Comment: No: Do not add to previous drawPerformed By: #### 84575, 66942 ####[facility] [address].[place] [address], [place] Potassium molar conc4.8 mmol/LNormal3.5-5.1The [facility] WestComment on above:Order Comment: No: Do not add to previous drawPerformed By: #### 51610, 39731 ####[facility] [place] [address], DDRXxabfs367 mmol/GPlxfem007-772Pwx [facility] WestComment on above:Order Comment: No: Do not add to previous draw Performed By: #### 74643, 83909 ####[facility] [place] [address], USAUrea oglhnlsn75 mg/dLNormal7-25The [facility] WestComment on above:Order Comment: No: Do not add to previous drawPerformed By: #### 54573, 70822 ####[facility] [place] [place] [address], USACPKon 91-76-5439Zayivmph kinase (CK)68270 U/LCritically yiot06-795Frt [facility] WestComment on above:Order Comment: No: Do not add to previous drawPerformed By: #### 77444, 90645 ####[facility] [place] [address], USAHistory and Physicalon 63-43-2504Ajbktyc and PhysicalMR#: [id number] Clinic [facility] Pt. Name: Desean Landry Admitted: 06/13/2017 Date of : 1940 Attending Physician: Arpan Camacho MD Room #: 4AB [id number] Discharge Date: HISTORY AND PHYSICALPRIMARY CARE PHYSICIAN: [...] evaluation and management.The patient presented to the [facility] Emergency Department. Overthere, the patient had initial workup revealed severe rhabdomyolysis, sothe patient was referred to the [facility] for further evaluationand management. Denying any [...] Dict: 06/13/2017/06:07 Jesse/Mariangel Hayes Trans: 06/13/2017 06:38 P/JuanN_JN:[id number] [facility] Center Vital Signs Date TimeVital SignValuePerforming HyyjqnzlrPjccqlqf43-93-9936 09:22-0400Body .3 cmAnthony Rusher DPM Work Phone: [phone]08-13-2025 09:22-0400Body mass index (BMI) [Ratio]29.53 kg/c3Krevvco Rusher DPM Work Phone: [phone] [place], [place] 3508908-13-2025 09:22-0400Body oabiae79.72 kgAnthony Rusher DPM Work Phone: [phone] [place], [place] 3508905-07-2025 10:04-0400Body qpmqfu640.3 cmAnthony Rusher DPM Work Phone: [phone]05-07-2025 10:04-0400Body mass index (BMI) [Ratio]29.53 kg/j1Pkwmozs Rusher DPM Work Phone: [phone] [place], [place] 3508905-07-2025 10:04-0400Body .72 kgAnthony Rusher DPM Work Phone: [phone] [place], [place] 3508904-21-2025 13:20-0400Body .26 cm04-21-2025 13:20-0400Body mass index (BMI) [Ratio]29.5 kg/x3Ayikkceex04-21-2025 13:20-0400Body kjlxhtinumb70.7 [degF]04-21-2025 13:20-0400Body .88 kg04-21-2025 13:20-0400Diastolic blood hmobuzdx71 mm[Hg]04-21-2025 13:20-0400 Heart rate60 /[facility]04-21-2025 13:20-0400 Respiratory rate18 /[facility]04-21-2025 13:20-0400 SaO2% (BldA) [Mass fraction]97 %04-21-2025 13:20-0400Systolic blood pugzemxv956 mm[Hg] Encounters Encounter DateEncounter TypeCare ProviderFacilityStart: 04-17-2025 End: 01-54-7337bumilseexsKWLZXP [facility]ERGreen [facility] Start: 48-93-5548hqlppirjaoGBHKRiverside Methodist Hospitaltart: 01-25-2025 End: 65-30-4901Atqoyr flowsheetAnthony S Amolher DPM Work Phone: [facility] PodiatryStart: 01-25-2025 End: 04-07-3627Nudvyj flowsheetAnthony S Amolher DPM Work Phone: [facility] PodiatryStart: 01-25-2025 End: 97-55-5828dzntqrxispNRONQSM S RUSHERNot AvailableStart: 01-25-2025 End: 54-30-7279Wrdcltc encounter procedureAnthony S Marly DPM Work Phone: [facility] PodiatryComment on above:Onychodystrophy (Primary Dx); Onychomycosis; Corns and callosities; Diabetic polyneuropathy associated with type 2 diabetes mellitus (HCC)Start: 74-02-5506liixmpynipLHUGTriHealth Bethesda Butler Hospitaltart: 97-11-6805sooodvpivcCORB OTILIAOUnCleveland Clinic Medina Hospital CenterStart: 10-19-2024 End: 66-65-7681Xujvfy flowsheetLaurieony Erica Luke DPM Work Phone: [facility] PODIATRYStart: 10-19-2024 End: 89-17-5643Dxrznw flowsheetAnthony S Rusher DPM Work Phone: [facility] PODIATRYStart: 10-19-2024 End: 54-39-9504Ppzgix outpatient new 45 minutesAnthony S Rusher DPM Work Phone: noms PODIATRYComment on above:Diabetic polyneuropathy associated with type 2 diabetes mellitus (CMS/HCC) (Primary Dx); Onychodystrophy; Onychomycosis; Corns and callosities; Paronychia of toe of left footStart: 10-19-2024 End: 44-46-2579asobvjkjjsIBFWZRF S RUSHERNot AvailableStart: 10-03-2024 End: 59-19-8597divjnumvleMiobjnihoGerman Hospital Work Phone: Start: 10-03-2024 End: 46-78-4567Dcmavpf encounter procedureAlleghany Health Physician GroupBURKE [facility] Work Phone: Start: 08-26-2022 End: 34-24-0213ptqxuizpvuGC DIOGENES HOY .Facility:O2Ucroj: 08-20-2022 End: 62-21-2426ioyhhvdnvrMN DIOGENES HOY .Facility:N1Vmssf: 07-30-2022 End: 48-22-7846hadyamhgzqUA DIOGENES HOY .Facility:T0Pjsdm: 03-02-2022 End: 06-34-4985hrdweimwywWD SRINATH Márquezcility:K6Ehroq: 02-19-2022 End: 78-23-5918gcipyfmwznAJ DIOGENES HOY .Facility:C6Ontjn: 01-15-2022 End: 99-33-1677lovvlcyjnfBC DIOGENES HOY .Facility:Q2Wbsub: 04-06-2018 End: 35-38-7571Ctdpdln encounter procedureHUMBERTO Wayne Hospitalart: 09-10-2017 End: 96-27-2078Vkwmdgk encounter procedureMer[facility]: 07-23-2017 End: 99-71-7335Egufplv encounter procedureCESAR [facility]: 07-23-2017 End: 40-81-5731Ddaekoj encounter procedureKALEB RODRIGUEZOur Lady of Mercy Hospital: 06-13-2017 End: 24-81-9173Luivitlbjk and management of inpatientASIF MAHMOODFacility:[facility] Procedures DateProcedureProcedure DetailPerforming ClinicianStart: 36-59-7245SNL screening DR DIOGENES CASIANO .Comment on above:Performed By: #### PTT, PT #### [facility] [address] [place] [address] Dr. Artem Rojas Plan of Treatment DateCare ActivityDetailAuthorStart: 05-03-2025 End: 79-07-3810Dpbsexc encounter frzsuvitw45/19/2025 9:00 AM EST Procedure Visit [facility] [address] [place] [address] Home Luke DPM [address] [place] [address] [facility] Wei PodiatryStart: 27-96-0438Goeaplida vaccination [facility] HealthcareStart: 01-25-2025 End: 91-18-2335Iyklhcf encounter qsiqunuek56/13/2025 9:15 AM EDT Procedure Visit [facility] [address] [place] [address] Home Luke DPM [address] [place] [address] [facility] PODIATRYStart: 10-19-2024 End: 76-90-4620Uzrmxsl encounter oyytjylin12/07/2025 10:00 AM EDT Office Visit [facility] [address] [place] [address] Home Luke, DPStephania [address] [place] [address] ArrivedNOMS PODIATRYComment on above:ArrivedStart: 72-03-7368Rnfpfgu referralGenesis Hospital Work Phone: Start: 15-36-0849Egzxyuofmbli Vaccine: 65+ Years (2 of 2 - PPSV23)Pneumococcal Vaccine: 65+ Years (2 of 2 - PPSV23)[facility] Patient referralGenesis Hospital Work Phone: Immunizations Immunization DateImmunizationNotesCare ManyialtPdrmwoct47-10-2612vtcypfknl virus vaccine, unspecified formulationHome Luke DPM Work Phone: NONortheast Regional Medical CenterGcgpjrrbpa14-23-1949YDJYZ-69 mRNA, Comirnaty (Pfizer)03-08-2021COVID-19 mRNA, Comirnaty (Pfizer) Payers DatePayer CategoryPayerPolicy [id number] ([facility]) ..[id number] 2022Medicaid ..[id number] [id number] 2007MedicareMEDICARE [id number] of Defense ( and others)[id number] [id number] 1942Unknown [id number] 2.16.840.1.274992.3.57[id number] 2.16.840.1.042300.3.57[id number] 2.16.840.1.821974.3.57[id number] 2.16.840.1.842190.3.57[id number] 2.16.840.1.789329.3.57[id number] 2.16.840.1.810620.3.57[id number] 2.16.840.1.553842.3.57[id number] 2.16.840.1.880854.3.579.2.1259Department of Defense ( and others) for [id number] Social History DateTypeDetailFacilityStart: 11-03-2023 End: 58-74-0065Ozshdgc smoking status NHISEx-smoker (finding)[facility] Hospitaltart: 76-00-0317VbrAvsm (finding)[facility] Hospitaltart: 80-68-5530Vsb Assigned At BirthMaleFKindred Hospital DaytonTobacco smoking status NHISTobacco smoking consumption unknownNOMS HealthcareStart: 79-08-9245Eco assigned at birthNot on fileNODE HealthcareStart: 54-70-6353Ischgf identityNot on fileTHE ORTHOPEDIC SPECIALTY [facility]ITAL HealthcareHistory of tobacco use Current smokerNOMS HealthcareHistory of tobacco useCigarette SmokerNOMS HealthcareStart: 28-81-9027Xudxrfo use and exposureSmokeless tobacco non-user [facility] HealthcareStart: 10-19-2024 End: 32-98-8260Npeikeszt beverage intakeEx-drinker (finding)[facility] Start: 22-32-7625Szlrfjy of Social functionNOMS Healthcare Progress note 04-17-2025 Note Date & XuklFiskXzxicbci30-87-9104 NoteUT Cardiology - [facility] Subjective Desean Landry Jr. [...] normal ventricular function, fixed inferior defect (prior VA vs. artifact), normal wall motion, no ischemia. [...] Update 07/08/2017: He was admitted recently to [facility] after falling and having rhabdomyolysis. He was hydrated. He did well. This was possibly related to deconditioning and he is getting physical therapy. He will be soon [facility]. otherwise he has no issues. Update 02/04/2018: [...] exertion. His main iss (more content not included)...[facility] History of Present illness Narrative 01-25-2025 Note Date & AjvmUhnkSjhxguzj65-30-9616 History of Present illness Narrative* Home Luke, [facility] - 01/25/2025 9:15 AM EDT Images [...] utilizing a nail nipper and electric bur sample grinder without incident. A sterile #15 blade [...] understanding. Home Luke DPM documented in this encounterNODE Healthcare History of Present illness Narrative 10-19-2024 Note Date & DbkjTkyvSgfqxuwi84-94-5550 History of Present illness Narrative* Home Luke DPM - 10/19/2024 10:00 AM EDT Images from the original note were not included. Subjective Patient ID: Desean Landry Jr is a 83 y.o. 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 Has been bothersome for a couple of months. Pt states he gets his nails trimmed at wound care. ). HPI This is a new patient who presents to clinic today with concern of left great toe pain. Patient states that his nail is very thick and he typically gets them trimmed at the [facility]. It sounds like his toe [...] polyneuropathy associated with type 2 diabetes mellitus (CMS/[facility]) E11.42 2. 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 Onychomycosis [...] utilizing a nail nipper and electric bur sample grinder without incident. A sterile #15 bladewas [...] understanding. Home Luke DPM [facility]Prov[facility] 10-03-2024 Note Date & IxhoDwcaVvjyoqov31-63-4634 Hospital Discharge instructionsAmbulatory Orders* Referral to Podiatry Time Frame: 10/03/24, Location: None [facility] Work Phone: Evaluation note Note Date & TypeNoteFacilityEvaluation noteNo assessment information available [facility] Work Phone: Evaluation note Note Date & TypeNoteFacilityEvaluation note* Diagnosis Diabetic polyneuropathy associated with type 2 diabetes mellitus ([facility]/HCC)- Primary Onychodystrophy Other specified disease of nail Onychomycosis Dermatophytosis of nail Corns and callosities Paronychia of toe of left foot documented in this encounter [facility] Evaluation note Note Date & TypeNoteFacilityEvaluation note* Diagnosis Onychodystrophy- Primary Other specified disease of nail Onychomycosis Dermatophytosis of nail Corns and callosities Diabetic polyneuropathy associated with type 2 diabetes mellitus (HCC) documented in this encounter [facility] Healthcare Summary Purpose Family History No [...] CREATED AUTHOR 12/08/2017 [facility] DATE CREATED AUTHOR AUTHOR'S ORGANIZ ATION 05/18/2018 [facility] DATE CREATED AUTHOR AUTHOR'S ORGANIZ ATION 01/16/2021 DATE CREATED AUTHOR AUTHOR'S ORGANIZ ATION 06/06/2021 [facility] DATE CREATED AUTHOR AUTHOR'S ORGANIZ ATION 09/02/2022 [facility] DATE CREATED AUTHOR AUTHOR'S ORGANIZ ATION 01/26/2025 [facility] DATE CREATED AUTHOR AUTHOR'S ORGANIZ ATION 04/17/2025 [facility] Care Teams (unrecognized sec tion and content) Team Status: Active Member Role Status Dates Diogenes Casiano MD Primary Care Provider Active Team Status: Inactive Member Role Status Dates Diogenes Casiano MD Primary Care Provider Active Start: October 03, 2024 End: October 03, 2024Murray Mcallister ProviderActiveStart: October 03, 2024 End: October 03, 2024Team MemberRelationshipSpecialtyStart DateEnd Date Diogenes Casiano MD [address] [place] [address] [facility]/19/24Team MemberRelationshipSpecialtyStart DateEnd Date Diogenes Casiano MD [address] [place] [address] [facility] - [facility] Medicine10/19/24Team MemberRelationshipSpecialtyStart DateEnd Date Diognees Casiano MD [address] [place] [address] PCP - GeneralFamily Medicine10/19/24Team MemberRelationshipSpecialtyStart DateEnd Date Diogenes Casiano MD [address] [place] [address] PCP - GeneralFamily Medicine10/19/24 Goals (unrecognized section and content) Goals may be documented in a n alternate section Reason for Visit (unrecogniz ed section and content) ReasonCommentsToenail Care83 yo BACTERIOLOGIST MEDICAL presents 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 [employer] provides no warranty or guarantee of the accuracy or completeness of information in this document.
== END 2025-05-08 15:04 | disposition home or self-care (01) ==
LOC: WC 15:03
PROVIDERS: PCP Family Medicine; Visit Provider Physician Assistant
DX: I87.311 Chronic venous hypertension (idiopathic) with ulcer of right lower extremity (principal); L97.811 Non-pressure chronic ulcer of other part of right lower leg limited to breakdown of skin
CPT/HCPCS: G0463

== ENCOUNTER 2025-05-24 11:13 | Outpatient (OUT) | payer MEDICARE, OTHER, MEDICAID, SELFPAY | END 2025-05-24 11:14 | disposition home or self-care (01) | LOC: WC 11:14 | PROVIDERS: PCP Family Medicine; Visit Provider Physician Assistant | DX: I87.311 Chronic venous hypertension (idiopathic) with ulcer of right lower extremity (principal); L97.812 Non-pressure chronic ulcer of other part of right lower leg with fat layer exposed | CPT/HCPCS: G0463 ==